=== PATIENT | female | born 1955 | race Caucasian/White ===

== ENCOUNTER 2017-08-23 14:54 | Emergency (ER) | payer MEDICAID, SELFPAY ==
[2017-08-23 15:00] VITALS: BP 135/76; PULSE 82; RESP 20; TEMP 36.9; O2SAT 95; BMI 27.4
--- NOTE | 2017-08-23 16:58 | HMH.EDGENADL ---
ED Disposition Clinical Impression: Sinusitis Qualifiers: Sinusitis location: frontal Chronicity: acute Recurrence: recurrent Qualified Code(s): J01.11 - Acute recurrent frontal sinusitis Disposition: Home, Self-Care Condition on Discharge: Good Instructions: Sinusitis Additional Instructions: Augmentin, see Dr. Fong as needed. Prescriptions: Amoxicillin/Potassium Clav [Augmentin 875-125 Tablet] 1 tab PO Q12H #20 tab Referrals: Reuben Fong MD [Primary Care Provider] - - Critical Care Critical Care Time: No Attestation: On 08/23/17, the high probability of a clinically significant, sudden or life threatening deterioration of the following system(s) required my full and direct attention, intervention and personal management. The time I documented below is in addition to time spent performing reported procedures but includes the following listed in this critical care notation. Medical Decision Making Vital Signs: 08/23/17 15:00 Temperature 98.5 F Temperature Source Oral Pulse Rate [Right Brachial] 82 Respiratory Rate 20 Blood Pressure [Right Arm] 135/76 Blood Pressure Mean [Right Arm] 95 Blood Pressure Source [Right Arm] Automatic Cuff Blood Pressure Position [Right Arm] Sitting 02 Sat by Pulse Oximetry 95 Oxygen Delivery Method Room Air - Lab Data Lab results reviewed: Yes: I reviewed the patient's lab results. Lab Results 08/23/17 15:48: Influenza Type A Ag Negative, Influenza Type B Ag Negative - Grant Inquiry Pt receiving controlled substance: No General Adult HPI - General Chief complaint: Fever Stated complaint: fever chills vomiting Time Seen by Provider: 08/23/17 16:50 Mode of Arrival: Ambulatory Limitations: No Limitations Description of Symptoms (Recalled from ER Triage Doc. by RN): Pt reports feeling clammy, cold, nausea, headache - History of Present Illness HPI narrative: Patient has a three-week history of sinus congestion and pressure. She also has an earache. She now reports low-grade fever. No cough. No vomiting. Had sinusitis in the past, and also has a history of sinus surgery as well as right ear surgery. - Related Data Home Medications Medication Instructions Recorded Confirmed Duloxetine HCl [Cymbalta] 30 mg PO DAILY 08/23/17 08/23/17 Hydrocodone/Acetaminophen [Lortab 1 tab PO TIDP PRN 08/23/17 08/23/17 7.5/325mg tablet] Lisinopril [Lisinopril 20mg Tab] 20 mg PO DAILY 08/23/17 08/23/17 Loratadine [Allergy Relief] 10 mg PO DAILY 08/23/17 08/23/17 Ondansetron HCl [Zofran 8mg Tab] 8 mg PO NEEDED PRN 08/23/17 08/23/17 Pantoprazole Sodium [Protonix 40mg 40 mg PO DAILY 08/23/17 08/23/17 tablet] clonazePAM [Klonopin] 0.5 mg PO DAILY 08/23/17 08/23/17 Previous Rx's Medication Instructions Recorded Amoxicillin/Potassium Clav 1 tab PO Q12H #20 tab 08/23/17 [Augmentin 875-125 Tablet] Allergies Allergy/AdvReac Type Severity Reaction Status Date / Time cephaeline [CEPHAELINE] Allergy Unknown Unverified 08/01/17 15:05 codeine [CODEINE] Allergy Unknown Unverified 08/01/17 15:05 ibuprofen [IBUPROFEN] Allergy Unknown Unverified 08/01/17 15:05 Iodinated Contrast Media - Allergy Unknown Unverified 08/01/17 15:05 Oral and [IODINATED CONTRAST MEDIA - IV DYE] morphine [MORPHINE] Allergy Unknown Unverified 08/01/17 15:05 prednisone [PREDNISONE] Allergy Unknown Unverified 08/01/17 15:05 prochlorperazine Allergy Unknown Unverified 08/01/17 15:05 [PROCHLORPERAZINE] promethazine [From PHENERGAN] Allergy Unknown Unverified 08/01/17 15:05 tramadol [TRAMADOL] Allergy Unknown Unverified 08/01/17 15:05 [facility] History Medical History: Denies:: Cancer, Diabetes Mellitus Type 1, Diabetes Mellitus Type 2, MRSA - *Social History Smoking Status: Never smoker Alcohol Intake: never - Psychiatric History Expresses thoughts of harming self/others: None Suicide Plan Description: No Plan ROS Obtained: Yes All sy
[2017-08-23 17:29] VITALS: BP 138/87; PULSE 63; RESP 18; TEMP 36.6; O2SAT 96
== END 2017-08-23 17:30 | disposition home or self-care (01) ==
PROVIDERS: Emergency Provider Emergency Medicine; Family Provider Emergency Medicine; PCP Emergency Medicine
DX: J01.11 Acute recurrent frontal sinusitis (principal); I10 Essential (primary) hypertension; Z88.6 Allergy status to analgesic agent
CPT/HCPCS: 87275; 87276; 99282

== ENCOUNTER → 2017-09-08 15:37 | Outpatient (REF) | payer MEDICAID, SELFPAY ==
[2017-09-08 19:26] LABS: Amphetamine/Metha Screen,Urine Negative ng/mL (<1000); Barbiturates Screen,Urine Negative ng/mL (<200); Benzodiazepines Screen,Urine Negative ng/mL (200); Cannabinoid Screen,Urine Negative ng/mL (<50); Cocaine Screen,Urine Negative ng/g (<300); Methadone Screen,Urine Negative ng/mL (<300); Opiate Screen,Urine Positive ng/mL (<300); Phencyclidine Screen,Urine Negative ng/mL (<25)
[2017-09-21 11:14] LABS: Alprazolam Negative (Cutoff=100); Benzodiazepines Positive ng/mL (Cutoff=100); Clonazepam Positive (.); Flurazepam Negative (Cutoff=100); Lorazepam Negative (Cutoff=100); Midazolam Negative (Cutoff=100); Temazepam Negative (Cutoff=100); Triazolam Negative (Cutoff=100)
[2017-09-21 12:34] LABS: Clonazepam Confirm 145 ng/mL (Cutoff=100)
== END ==
LOC: LAB 15:37
PROVIDERS: Visit Provider Emergency Medicine
DX: Z79.899 Other long term (current) drug therapy (principal)
CPT/HCPCS: 80305

== ENCOUNTER 2017-09-15 17:30 | Emergency (ER) | payer MEDICAID, SELFPAY ==
[2017-09-15 18:57] VITALS: BP 153/85; PULSE 80; RESP 20; TEMP 36.6; O2SAT 96; BMI 27.4
[2017-09-15 19:08] LABS: UTC Influenza A Antigen Negative (Negative); UTC Influenza B Antigen Negative (Negative); UTC Strep Screen (Rapid) Negative (Negative)
--- NOTE | 2017-09-15 19:51 | HMH.EDUTC ---
[facility] [place] Clinical Impression: Viral upper respiratory illness Disposition: Home, Self-Care Condition on Discharge: Good Instructions: DI for Viral Upper Respiratory Infection -- Adult Additional Instructions: * No sign of bacterial infection. Likely viral. Virus can take 7-14 days to run their course * Monitor Temp. Follow up if fever develops * Encourage fluids, water, gatorade, powerade, pedialyte if infant/toddler/child * warm salt water gargles * warm fluids * sore throat lozenges * sleep elevated * humidifier/vaporizer * Continue your flonase no more then 1 spray on each side twice a day or two sprays on each side daily * Mucinex during the day for your cough and cough suppressant only at night. Be sure to drink lots of water. Insurance may not cover a prescription of mucinex. Might be cheaper to get 400mg tablets and take 2 tablets morning, midday and evening all with lots of water. I will try sending prescription. Prescriptions: guaiFENesin [Mucinex 600mg tablet] 600 mg PO BID #14 tab.er.12h Referrals: Reuben Fong MD [Primary Care Provider] - (Return to [facility] or ER this weekend or primary care throughout the week IMMEDIATELY for new or worsening symptoms OR no noticeable improvement over the next 48-72 hours. 911 for difficulty breathing or swallowing. ) Time of Disposition: 20:14 Medical Decision Making Vital Signs: 09/15/17 18:57 Temperature 97.8 F Temperature Source Temporal Artery Scan Pulse Rate [Right Brachial] 80 Respiratory Rate 20 Blood Pressure [Right Arm] 153/85 Blood Pressure Mean [Right Arm] 107 Blood Pressure Source [Right Arm] Automatic Cuff Blood Pressure Position [Right Arm] Sitting 02 Sat by Pulse Oximetry 96 Oxygen Delivery Method Room Air - Lab Data Lab results reviewed: Yes: I reviewed the patient's lab results. Lab Results 09/15/17 19:03: Influenza Type A Ag Negative, Influenza Type B Ag Negative, Strep Scn Rapid Clinic Negative Orders (Tests/Meds): ORDERS Category Date Time Status Strep Screen Confirmation Stat Micro 09/15/17 19:03 Received - Grant Inquiry Pt receiving controlled substance: No [facility] H[place] - General Stated complaint: Sore Throat, weakness, cough Time Seen by Provider: 09/15/17 19:51 Mode of Arrival: Ambulatory Source of Information: Patient Limitations: No Limitations Description of Symptoms (Recalled from Triage Doc. by RN): C/O sore throat, nausea, and weakness HEENT Symptoms (Recalled from RN notes): Yes (sore throat) Resp Symptoms (Recalled from RN notes): No Skin Symptoms (Recalled from RN notes): No MS Symptoms (Recalled from RN notes): No Functional Status (Recalled from RN notes): n/a - History of Present Illness Provider Complaint: c/o sore throat since yesterday. Worse with cough. Lingering cough since finishing augmentin for sinus infection one week ago. No worse. Cough worse at night. Nonprod. Feels related to drainage that causes nausea at times. OTC cough medication hasn't helped. Sore throat lozenges barely help . No fever. Denies SOA. 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 No known sick contacts. - Related Data Home Medications Medication Instructions Recorded Confirmed Duloxetine HCl [Cymbalta] 30 mg PO DAILY 08/23/17 08/23/17 Lisinopril [Lisinopril 20mg Tab] 20 mg PO DAILY 08/23/17 08/23/17 Loratadine [Allergy Relief] 10 mg PO DAILY 08/23/17 08/23/17 Pantoprazole Sodium [Protonix 40mg 40 mg PO DAILY 08/23/17 08/23/17 tablet] Previous Rx's Medication Instructions Recorded clonazepam 0.5 mg tablet 0.5 mg PO BID 30 Days #60 tab 09/08/17 gabapentin 600 mg tablet 600 mg PO TID 30 Days #90 tab 09/08/17 hydrocodone 7.5 mg-acetaminophen 1 tab PO TIDP PRN 30 Days #90 tab 09/08/17 325 mg tablet guaiFENesin [Mucinex 600mg tablet] 600 mg PO BID #14 tab.er.12h 09/15/17 Allergies Allergy/AdvReac Type Sever
[2017-09-15 20:14] VITALS: BP 144/78; PULSE 92; RESP 20; TEMP 36.9; O2SAT 96
== END 2017-09-15 20:15 | disposition home or self-care (01) ==
PROVIDERS: Emergency Provider Nurse Practitioner Family; Family Provider Emergency Medicine; PCP Emergency Medicine
DX: J06.9 Acute upper respiratory infection, unspecified (principal)
CPT/HCPCS: 87804; 87880; 99201

== ENCOUNTER → 2017-10-06 13:53 | Outpatient (CLI) | payer MEDICAID, SELFPAY ==
[2017-10-06 18:01] LABS: Amphetamine/Metha Screen,Urine Negative ng/mL (<1000); Barbiturates Screen,Urine Negative ng/mL (<200); Benzodiazepines Screen,Urine Negative ng/mL (200); Cannabinoid Screen,Urine Negative ng/mL (<50); Cocaine Screen,Urine Negative ng/g (<300); Methadone Screen,Urine Negative ng/mL (<300); Opiate Screen,Urine Positive ng/mL (<300); Phencyclidine Screen,Urine Negative ng/mL (<25)
== END ==
PROVIDERS: Visit Provider Emergency Medicine
DX: Z79.899 Other long term (current) drug therapy (principal)
CPT/HCPCS: 80305

== ENCOUNTER 2017-10-09 02:13 | Emergency (ER) | payer MEDICAID, SELFPAY ==
[2017-10-09 02:25] VITALS: BP 137/77; PULSE 83; RESP 20; TEMP 36.5; O2SAT 96; BMI 29.2
--- NOTE | 2017-10-09 02:44 | XR_ITS ---
XR chest 2V Ordering Physician: Reuben Fong MD Patient Age: 61 years: Female HISTORY: ITS.REASON: SOA short of breath for 2 days TECHNIQUE: PA and lateral chest COMPARISON :March 2016 FINDINGS The lungs with mild linear atelectasis towards the lung bases bilaterally most evident towards left base.. Mild vascular engorgement borderline CHF Question on this study versus of possible mild interstitial infiltrate or pneumonitis accentuating vascular markings. The heart is upper normal in size but slightly larger than on 2016 exam. No pleural effusions no pneumothorax IMPRESSION: Subtle accentuation of vascular & interstitial markings compared to previous study. Could reflect a mild interstitial pneumonitis versus a very subtle vascular congestion. Clinical correlation required. Mild basilar atelectasis likely also present on less optimal inspiration chest film
[2017-10-09 03:00] LABS: Basophils # 0.1 K/mm3 (0-0.2); Basophils % 0.7 % (0.1-2.0); Eosinophils # 0.5 K/mm3 (0.0-0.4); Eosinophils % 6.4 % (0.1-12.0); Hematocrit 34.2 % (37.0-47.0); Hemoglobin 10.5 g/dL (12.2-16.2); Lymphocytes # 2.7 K/mm3 (0.7-4.5); Lymphocytes % 36.2 K/mm3 (10-50); Mean Corpuscular HGB Conc 30.8 g/dL (31.8-35.4); Mean Corpuscular Hemoglobin 28.6 pg (27.0-31.2); Mean Corpuscular Volume 92.8 fl (81-99); Mean Platelet Volume 9.6 fl (7.4-10.4); Monocytes # 0.6 K/mm3 (0.1-1.0); Monocytes % 7.5 % (1.7-9.3); Neutrophils # 3.7 K/mm3 (1.8-7.8); Neutrophils % 49.2 % (37.0-80.0); Platelet Count 248 K/mm3 (142-424); Red Blood Count 3.69 M/mm3 (4.20-5.40); Red Cell Distribution Width 13.3 % (11.5-17.5); White Blood Count 7.6 K/mm3 (4.8-10.8)
[2017-10-09 03:01] LABS: Microscopic, Urine URINE MICROSCOPIC (MICROSCOPIC)
[2017-10-09 03:02] LABS: Appearance,Urine CLEAR (Clear); Bilirubin,Urine Negative (Negative); Blood, Urine Negative (Negative); Color,Urine YELLOW (Yellow); Glucose,Urine (UA) Negative (Negative); Ketones,Urine Negative (Negative); Leukocyte Esterase,Urine Negative (Negative); Nitrate,Urine Negative (Negative); Protein,Urine Negative (Negative); Specific Gravity, Urine 1.025 (1.005-1.030); Urobilinogen,Urine 0.2 EU/dl (0.2)
[2017-10-09 03:07] LABS: Amorphous Sediment,Urine Trace /lpf
[2017-10-09 03:17] LABS: Lactic Acid 1.8 mmol/L (0.4-2.0)
[2017-10-09 03:25] LABS: D-Dimer 303 (0-400)
[2017-10-09 03:26] LABS: Alanine Aminotransferase 83 U/L (12-78); Albumin Level 3.8 gm/dL (3.4-5.0); Alkaline Phosphatase 88 U/L (46-116); Anion Gap 12.7 mEq/L (5-15); Aspartate Amino Transferase 78 U/L (15-37); Bilirubin,Total 0.2 mg/dL (0.2-1.0); Blood Urea Nitrogen 23 mg/dL (7-18); Calcium 8.7 mg/dL (8.5-10.1); Carbon Dioxide 28 mmol/L (21.0-32.0); Chloride 112 mmol/L (98-107); Creatine Kinase 124 U/L (26-192); Creatine Kinase MB 1.3 mg/ml (0.0-3.6); Creatinine Clearance Estimated 62 mL/min (0-300); Creatinine,Serum 1.16 mg/dL (0.55-1.02); Estimated Glomerular Filt Rate 47 ml/min (>60); GFR (African American) 57 ML/MIN (>60); Globulin 3.7 gm/dl (1.3-3.2); Glucose 116 mg/dL (74-106); Potassium 4.7 mmoL/L (3.5-5.1); Sodium 148 mmol/L (136-145); T4 (Thyroxine) 7.2 ug/dl (4.7-13.3); Thyroid Stimulating Hormone 0.97 uIU/ml (0.358-3.740); Total Protein,Serum 7.5 gm/dL (6.4-8.2); Troponin I < 0.02 ng/ml (0.00-0.06)
[2017-10-09 03:39] VITALS: BP 130/84; PULSE 73; RESP 18; O2SAT 95
--- NOTE | 2017-10-09 04:00 | HMH.EDEXTP ---
ED Disposition Clinical Impression: Bilateral lower extremity edema Disposition: Home, Self-Care Condition on Discharge: Good Instructions: DI for Peripheral Edema -- Bilateral Additional Instructions: elevate lower ext and less salt in diet Referrals: Reuben Fong MD [Primary Care Provider] - - Critical Care Critical Care Time: No Attestation: On 10/09/17, the high probability of a clinically significant, sudden or life threatening deterioration of the following system(s) required my full and direct attention, intervention and personal management. The time I documented below is in addition to time spent performing reported procedures but includes the following listed in this critical care notation. Medical Decision Making - Medical Records Medical records reviewed: Yes: I reviewed the patient's medical records. Vital Signs: 10/09/17 02:25 10/09/17 03:39 Temperature 97.7 F Temperature Source Oral Pulse Rate [Right Radial] 83 73 Respiratory Rate 20 18 Blood Pressure [Right Arm] 137/77 130/84 Blood Pressure Mean [Right Arm] 97 99 Blood Pressure Source [Right Arm] Automatic Cuff Automatic Cuff Blood Pressure Position [Right Arm] Sitting Sitting 02 Sat by Pulse Oximetry 96 95 Oxygen Delivery Method Room Air Room Air - Lab Data Lab results reviewed: Yes: I reviewed the patient's lab results. Lab Results 10/09/17 02:44: Urine Color Yellow, Urine Appearance Clear, Urine pH 5.0, Ur Specific [place] 1.025, Urine Protein Negative, Urine Glucose (UA) Negative, Urine Ketones Negative, Urine Blood Negative, Urine Nitrate Negative, Urine Bilirubin Negative, Urine Urobilinogen 0.2, Ur Leukocyte Esterase Negative, Urine WBC 3-5, Ur Squamous Epith Cells 5-10, Amorphous Sediment Trace 10/09/17 02:55: WBC 7.6, RBC 3.69 L, Hgb 10.5 L, Hct 34.2 L, MCV 92.8, MCH 28.6, MCHC 30.8 L, RDW 13.3, Plt Count 248, MPV 9.6, Neut % (Auto) 49.2, Lymph % (Auto) 36.2, [place] % (Auto) 7.5, Eos % (Auto) 6.4, Baso % (Auto) 0.7, Neut # (Auto) 3.7, Lymph # (Auto) 2.7, [place] # (Auto) 0.6, Eos # (Auto) 0.5 H, Baso # (Auto) 0.1 10/09/17 02:55: D-Dimer 303 10/09/17 02:55: Sodium 148 H, Potassium 4.7, Chloride 112 H, Carbon Dioxide 28, Anion Gap 12.7, BUN 23 H, Creatinine 1.16 H, Estimated Creat Clear 62, Estimated GFR 47 L, Est GFR ( Amer) 57 L, Glucose 116 H, Calcium 8.7, Total Bilirubin 0.2, AST 78 H, ALT 83 H, Alkaline Phosphatase 88, Total Creatine Kinase 124, CK-MB (CK-2) 1.3, CK-MB (CK-2) Rel Index 1.0, Troponin I < 0.02, Total Protein 7.5, Albumin 3.8, Globulin 3.7 H, Albumin/Globulin Ratio 1.0 L, TSH 0.97, Thyroxine (T4) 7.2 10/09/17 02:55: B-Natriuretic Peptide 31 10/09/17 02:55: Lactic Acid 1.8 Result diagrams: 10/09/17 02:55 10/09/17 02:55 Orders (Tests/Meds): ORDERS Category Date Time Status XR chest 2V Stat Exams 10/09/17 02:44 Taken - Radiology Data #1 Image(s): Chest Image Reviewed: Yes I reviewed the patient's radiology image Preliminary Findings: Abnormal (vas conj) - Grant Inquiry Pt receiving controlled substance: No Extremity Problem HPI - General Chief complaint: Shortness of Breath/Dyspnea Stated complaint: Both legs swelling;loss of balance Time Seen by Provider: 10/09/17 04:00 Mode of Arrival: Ambulatory Source of Information: Patient, Significant Other, Medical Record Limitations: No Limitations Description of Symptoms (Recalled from ER Triage Doc. by RN): Pt. reports both legs started sweling about an hour ago, and prior to coming to the ED was having difficulty breathing. - History of Present Illness HPI Narrative: pt with feeling of sob with swollen lower ext - pt reports sx noted tonight- no chest pain MD Complaint: extremity swelling Onset (ago): hour(s) Consistency: constant Location: lower extremity Exacerbating factors: walking Associated symptoms: shortness of breath - Related Data Home Medications Medication Instructions Recorded Confirmed Duloxeti
--- NOTE | 2017-10-09 04:03 | ED_ITS ---
ED Disposition Clinical Impression: Bilateral lower extremity edema Disposition: Home, Self-Care Condition on Discharge: Good Instructions: DI for Peripheral Edema -- Bilateral Additional Instructions: elevate lower ext and less salt in diet Referrals: Reuben Fong MD [Primary Care Provider] - - Critical Care Critical Care Time: No Attestation: On 10/09/17, the high probability of a clinically significant, sudden or life threatening deterioration of the following system(s) required my full and direct attention, intervention and personal management. The time I documented below is in addition to time spent performing reported procedures but includes the following listed in this critical care notation. Medical Decision Making - Medical Records Medical records reviewed: Yes: I reviewed the patient's medical records. Vital Signs: 10/09/17 02:25 10/09/17 03:39 Temperature 97.7 F Temperature Source Oral Pulse Rate [Right Radial] 83 73 Respiratory Rate 20 18 Blood Pressure [Right Arm] 137/77 130/84 Blood Pressure Mean [Right Arm] 97 99 Blood Pressure Source [Right Arm] Automatic Cuff Automatic Cuff Blood Pressure Position [Right Arm] Sitting Sitting 02 Sat by Pulse Oximetry 96 95 Oxygen Delivery Method Room Air Room Air - Lab Data Lab results reviewed: Yes: I reviewed the patient's lab results. Lab Results 10/09/17 02:44: Urine Color Yellow, Urine Appearance Clear, Urine pH 5.0, Ur Specific [place] 1.025, Urine Protein Negative, Urine Glucose (UA) Negative, Urine Ketones Negative, Urine Blood Negative, Urine Nitrate Negative, Urine Bilirubin Negative, Urine Urobilinogen 0.2, Ur Leukocyte Esterase Negative, Urine WBC 3-5, Ur Squamous Epith Cells 5-10, Amorphous Sediment Trace 10/09/17 02:55: WBC 7.6, RBC 3.69 L, Hgb 10.5 L, Hct 34.2 L, MCV 92.8, MCH 28.6 , MCHC 30.8 L, RDW 13.3, Plt Count 248, MPV 9.6, Neut % (Auto) 49.2, Lymph % ( Auto) 36.2, [place] % (Auto) 7.5, Eos % (Auto) 6.4, Baso % (Auto) 0.7, Neut # (Auto ) 3.7, Lymph # (Auto) 2.7, [place] # (Auto) 0.6, Eos # (Auto) 0.5 H, Baso # (Auto) 0.1 10/09/17 02:55: D-Dimer 303 10/09/17 02:55: Sodium 148 H, Potassium 4.7, Chloride 112 H, Carbon Dioxide 28, Anion Gap 12.7, BUN 23 H, Creatinine 1.16 H, Estimated Creat Clear 62, Estimated GFR 47 L, Est GFR ( Amer) 57 L, Glucose 116 H, Calcium 8.7, Total Bilirubin 0.2, AST 78 H, ALT 83 H, Alkaline Phosphatase 88, Total Creatine Kinase 124, CK-MB (CK-2) 1.3, CK-MB (CK-2) Rel Index 1.0, Troponin I < 0.02, Total Protein 7.5, Albumin 3.8, Globulin 3.7 H, Albumin/Globulin Ratio 1.0 L, TSH 0.97, Thyroxine (T4) 7.2 10/09/17 02:55: B-Natriuretic Peptide 31 10/09/17 02:55: Lactic Acid 1.8 Result diagrams: 10/09/17 02:55 10/09/17 02:55 Orders (Tests/Meds): ORDERS Category Date Time Status XR chest 2V Stat Exams 10/09/17 02:44 Taken - Radiology Data #1 Image(s): Chest Image Reviewed: Yes I reviewed the patient's radiology image Preliminary Findings: Abnormal (vas conj) - Grant Inquiry Pt receiving controlled substance: No Extremity Problem HPI - General Chief complaint: Shortness of Breath/Dyspnea Stated complaint: Both legs swelling;loss of balance Time Seen by Provider: 10/09/17 04:00 Mode of Arrival: Ambulatory Source of Information: Patient, Significant Other, Medical Record Limitations: No Limitations Description of Symptoms (Recalled from ER Triage Doc. by RN): Pt
[2017-10-09 04:27] VITALS: BP 130/70; PULSE 70; RESP 18; TEMP 36.6; O2SAT 95
== END 2017-10-09 04:29 | disposition home or self-care (01) ==
PROVIDERS: Emergency Provider Emergency Medicine; Family Provider Emergency Medicine; PCP Emergency Medicine
DX: R60.9 Edema, unspecified (principal); F41.9 Anxiety disorder, unspecified; F32.9 Major depressive disorder, single episode, unspecified; K21.9 Gastro-esophageal reflux disease without esophagitis; I10 Essential (primary) hypertension
CPT/HCPCS: 71046; 80053; 81001; 82550; 82553; 83605; 83880; 84436; 84443; 84484; 85025; 85378; 96374; 99283; S0119

== ENCOUNTER 2017-10-14 00:24 | Emergency (ER) | payer MEDICAID, SELFPAY ==
[2017-10-14 00:25] VITALS: RESP 18; TEMP 36.6; O2SAT 94; BMI 27.4
--- NOTE | 2017-10-14 00:29 | XR_ITS ---
XR chest 2V HISTORY: ITS.REASON: chest pain ORDERING PHYSICIAN: Reuben Fong MD PATIENT AGE: 61 years COMPARISON: 10/09/2017 FINDINGS: Unremarkable cardiovascular structures. There are atelectatic changes in the right lung base. Slight increased markings are present in the left lung base may be due to atelectasis or developing patchy infiltrate. There is coarsening of the bronchovascular markings. No effusions. No acute bony anomalies. IMPRESSION: Atelectasis in the right middle lobe with increasing density in the left lung base which may be due to atelectasis or infiltrate
[2017-10-14 00:43] LABS: Basophils % 0.5 % (0.1-2.0); Eosinophils # 0.4 K/mm3 (0.0-0.4); Hematocrit 34.4 % (37.0-47.0); Hemoglobin 10.9 g/dL (12.2-16.2); Lymphocytes # 2.4 K/mm3 (0.7-4.5); Lymphocytes % 35.5 K/mm3 (10-50); Mean Corpuscular HGB Conc 31.6 g/dL (31.8-35.4); Mean Corpuscular Hemoglobin 29.7 pg (27.0-31.2); Mean Corpuscular Volume 93.9 fl (81-99); Mean Platelet Volume 10.1 fl (7.4-10.4); Monocytes # 0.5 K/mm3 (0.1-1.0); Neutrophils # 3.3 K/mm3 (1.8-7.8); Neutrophils % 49.9 % (37.0-80.0); Platelet Count 234 K/mm3 (142-424); Red Blood Count 3.67 M/mm3 (4.20-5.40); Red Cell Distribution Width 13.3 % (11.5-17.5); White Blood Count 6.6 K/mm3 (4.8-10.8)
[2017-10-14 01:24] LABS: Alanine Aminotransferase 99 U/L (12-78); Albumin Level 3.5 gm/dL (3.4-5.0); Alkaline Phosphatase 133 U/L (46-116); Anion Gap 11.5 mEq/L (5-15); Aspartate Amino Transferase 65 U/L (15-37); Bilirubin,Total 0.3 mg/dL (0.2-1.0); Blood Urea Nitrogen 17 mg/dL (7-18); CKMB Relative Index 0.5 U/L (0-4.0); Calcium 8.7 mg/dL (8.5-10.1); Carbon Dioxide 28 mmol/L (21.0-32.0); Chloride 108 mmol/L (98-107); Creatine Kinase 172 U/L (26-192); Creatine Kinase MB 0.8 mg/ml (0.0-3.6); Creatinine Clearance Estimated 68 mL/min (0-300); Creatinine,Serum 0.72 mg/dL (0.55-1.02); Estimated Glomerular Filt Rate 82 ml/min (>60); GFR (African American) 100 ML/MIN (>60); Globulin 3.5 gm/dl (1.3-3.2); Glucose 102 mg/dL (74-106); Potassium 4.5 mmoL/L (3.5-5.1); Sodium 143 mmol/L (136-145); Troponin I < 0.02 ng/ml (0.00-0.06)
--- NOTE | 2017-10-14 02:10 | HMH.EDCP ---
ED Disposition Clinical Impression: Bilateral lower extremity edema Chest pain Qualifiers: Chest pain type: precordial pain Qualified Code(s): R07.2 - Precordial pain Anemia Qualifiers: Anemia type: unspecified type Qualified Code(s): D64.9 - Anemia, unspecified Disposition: Home, Self-Care Condition on Discharge: Good Instructions: DI for Atypical Chest Pain Additional Instructions: will have pt see card monday Referrals: Reuben Fong MD [Primary Care Provider] - - Critical Care Critical Care Time: No Attestation: On 10/14/17, the high probability of a clinically significant, sudden or life threatening deterioration of the following system(s) required my full and direct attention, intervention and personal management. The time I documented below is in addition to time spent performing reported procedures but includes the following listed in this critical care notation. Medical Decision Making - Medical Records Medical records reviewed: Yes: I reviewed the patient's medical records. Vital Signs: 10/14/17 00:25 Temperature 97.9 F Temperature Source Oral Respiratory Rate 18 02 Sat by Pulse Oximetry 94 L Oxygen Delivery Method Room Air - Lab Data Lab results reviewed: Yes: I reviewed the patient's lab results. Lab Results 10/14/17 00:30: WBC 6.6, RBC 3.67 L, Hgb 10.9 L, Hct 34.4 L, MCV 93.9, MCH 29.7, MCHC 31.6 L, RDW 13.3, Plt Count 234, MPV 10.1, Neut % (Auto) 49.9, Lymph % (Auto) 35.5, [place] % (Auto) 8.0, Eos % (Auto) 6.0, Baso % (Auto) 0.5, Neut # (Auto) 3.3, Lymph # (Auto) 2.4, [place] # (Auto) 0.5, Eos # (Auto) 0.4, Baso # (Auto) 0.0 10/14/17 00:30: Sodium 143, Potassium 4.5, Chloride 108 H, Carbon Dioxide 28, Anion Gap 11.5, BUN 17, Creatinine 0.72, Estimated Creat Clear 68, Estimated GFR 82, Est GFR ( Amer) 100, Glucose 102, Calcium 8.7, Total Bilirubin 0.3, AST 65 H, ALT 99 H, Alkaline Phosphatase 133 H, Total Creatine Kinase 172, CK-MB (CK-2) 0.8 D, CK-MB (CK-2) Rel Index 0.5, Troponin I < 0.02, Total Protein 7.0, Albumin 3.5, Globulin 3.5 H, Albumin/Globulin Ratio 1.0 L Result diagrams: 10/14/17 00:30 10/14/17 00:30 Orders (Tests/Meds): ORDERS Category Date Time Status XR chest 2V Stat Exams 10/14/17 00:29 Taken 12-lead EKG Request [ECG Request by /Sd] Stat Y 10/14/17 00:29 Ordered - Radiology Data #1 Image(s): Chest Image Reviewed: Yes I reviewed the patient's radiology image Preliminary Findings: Abnormal (cm) - ECG Data Tracing #1 I reviewed this ECG and interpreted as documented below: Normal Sinus Rhythm: Yes Ischemic changes: non-specific ST-T wave changes - Grant Inquiry Pt receiving controlled substance: No Chest Pain HPI - General Chief Complaint: Chest Pain Stated Complaint: chest pain Time Seen by Provider: 10/14/17 00:40 Mode of Arrival: Ambulatory Source of Information: Patient, Medical Record Limitations: No Limitations Description of Symptoms (Recalled from ER Triage Doc. by RN): chest pain and swollen feet for days - History of Present Illness HPI narrative: pt with episodes of sharp ant chest pain worse with cough but no fever or trauma and no rash MD complaint: chest pain Onset (ago): hour(s) Duration: intermittent Pain location: left chest Severity: moderate Quality: sharp Exacerbating factors: inspiration Risk Factors for CAD: Hypertension, Family Hx of CAD - MARY Score Non-Stemi Age of patient: Less than 65 yrs Number of risk factors for CAD: Presence of less than 3 Prior coronary artery stenosis(seen in coronary angiography): Less than 50% ST-Segment deviation on ECG (more than 1 min): Absent Prior aspirin intake: No ASA in the last 7 days Severe anginal chest pain: Two or more episodes in last 24 hours Elevated cardiac markers(CK-MB or troponin): Absent Non-Stemi Risk Score: 1 - Related Data Home Medications Medication Instructions Recorded Confirmed Duloxetine HCl [Cymbalta] 30
--- NOTE | 2017-10-14 02:29 | ED_ITS ---
ED Disposition Clinical Impression: Bilateral lower extremity edema Chest pain Qualifiers: Chest pain type: precordial pain Qualified Code(s): R07.2 - Precordial pain Anemia Qualifiers: Anemia type: unspecified type Qualified Code(s): D64.9 - Anemia, unspecified Disposition: Home, Self-Care Condition on Discharge: Good Instructions: DI for Atypical Chest Pain Additional Instructions: will have pt see card monday Referrals: Reuben Fong MD [Primary Care Provider] - - Critical Care Critical Care Time: No Attestation: On 10/14/17, the high probability of a clinically significant, sudden or life threatening deterioration of the following system(s) required my full and direct attention, intervention and personal management. The time I documented below is in addition to time spent performing reported procedures but includes the following listed in this critical care notation. Medical Decision Making - Medical Records Medical records reviewed: Yes: I reviewed the patient's medical records. Vital Signs: 10/14/17 00:25 Temperature 97.9 F Temperature Source Oral Respiratory Rate 18 02 Sat by Pulse Oximetry 94 L Oxygen Delivery Method Room Air - Lab Data Lab results reviewed: Yes: I reviewed the patient's lab results. Lab Results 10/14/17 00:30: WBC 6.6, RBC 3.67 L, Hgb 10.9 L, Hct 34.4 L, MCV 93.9, MCH 29.7 , MCHC 31.6 L, RDW 13.3, Plt Count 234, MPV 10.1, Neut % (Auto) 49.9, Lymph % ( Auto) 35.5, [place] % (Auto) 8.0, Eos % (Auto) 6.0, Baso % (Auto) 0.5, Neut # (Auto ) 3.3, Lymph # (Auto) 2.4, [place] # (Auto) 0.5, Eos # (Auto) 0.4, Baso # (Auto) 0.0 10/14/17 00:30: Sodium 143, Potassium 4.5, Chloride 108 H, Carbon Dioxide 28, Anion Gap 11.5, BUN 17, Creatinine 0.72, Estimated Creat Clear 68, Estimated GFR 82, Est GFR ( Amer) 100, Glucose 102, Calcium 8.7, Total Bilirubin 0.3, AST 65 H, ALT 99 H, Alkaline Phosphatase 133 H, Total Creatine Kinase 172, CK-MB (CK-2) 0.8 D, CK-MB (CK-2) Rel Index 0.5, Troponin I < 0.02, Total Protein 7.0, Albumin 3.5, Globulin 3.5 H, Albumin/Globulin Ratio 1.0 L Result diagrams: 10/14/17 00:30 10/14/17 00:30 Orders (Tests/Meds): ORDERS Category Date Time Status XR chest 2V Stat Exams 10/14/17 00:29 Taken 12-lead EKG Request [ECG Request by /Sd] Stat Y 10/14/17 00:29 Ordered - Radiology Data #1 Image(s): Chest Image Reviewed: Yes I reviewed the patient's radiology image Preliminary Findings: Abnormal (cm) - ECG Data Tracing #1 I reviewed this ECG and interpreted as documented below: Normal Sinus Rhythm: Yes Ischemic changes: non-specific ST-T wave changes - Grant Inquiry Pt receiving controlled substance: No Chest Pain HPI - General Chief Complaint: Chest Pain Stated Complaint: chest pain Time Seen by Provider: 10/14/17 00:40 Mode of Arrival: Ambulatory Source of Information: Patient, Medical Record Limitations: No Limitations Description of Symptoms (Recalled from ER Triage Doc. by RN): chest pain and swollen feet for days - History of Present Illness HPI narrative: pt with episodes of sharp ant chest pain worse with cough but no fever or trauma and no rash MD complaint: chest pain Onset (ago): hour(s) Duration: intermittent Pain location: left chest Severity: moderate Quality: sharp Exacerbating factors: inspiration Risk Factors for CAD: Hypertension, Fami
[2017-10-14 02:56] VITALS: BP 146/70; PULSE 74; RESP 18; TEMP 36.4; O2SAT 94
== END 2017-10-14 02:56 | disposition home or self-care (01) ==
PROVIDERS: Emergency Provider Emergency Medicine; Family Provider Emergency Medicine; PCP Emergency Medicine
DX: R22.43 Localized swelling, mass and lump, lower limb, bilateral (principal); R07.2 Precordial pain; D64.9 Anemia, unspecified; I10 Essential (primary) hypertension; F41.8 Other specified anxiety disorders; K21.9 Gastro-esophageal reflux disease without esophagitis; F17.210 Nicotine dependence, cigarettes, uncomplicated; Z88.6 Allergy status to analgesic agent; Z88.8 Allergy status to other drugs, medicaments and biological substances
CPT/HCPCS: 71046; 80053; 82550; 82553; 84484; 85025; 93005; 96374; 99282; J0595

== ENCOUNTER 2017-10-18 04:34 | Emergency (ER) | payer MEDICAID, SELFPAY ==
[2017-10-18 04:41] VITALS: BP 128/76; PULSE 79; RESP 20; TEMP 36.8; O2SAT 93; BMI 29.5
--- NOTE | 2017-10-18 04:49 | XR_ITS ---
XR chest 2V HISTORY: Shortness of breath ITS.REASON: sob ORDERING PHYSICIAN: Reuben Fong MD PATIENT AGE: 61 years COMPARISON: 10/14/2017 FINDINGS: The cardiomediastinal silhouette and pulmonary vascularity are within normal limits. There are atelectatic changes once again noted within the lingula and right middle lobe not significant change. Upper lobes are clear. No effusions. IMPRESSION: No change right middle lobe and lingular atelectasis
[2017-10-18 05:06] LABS: Basophils % 0.5 % (0.1-2.0); Eosinophils # 0.4 K/mm3 (0.0-0.4); Eosinophils % 6.7 % (0.1-12.0); Lymphocytes # 1.8 K/mm3 (0.7-4.5); Lymphocytes % 32.8 K/mm3 (10-50); Mean Corpuscular HGB Conc 32.3 g/dL (31.8-35.4); Mean Corpuscular Hemoglobin 30.2 pg (27.0-31.2); Mean Corpuscular Volume 93.4 fl (81-99); Mean Platelet Volume 9.5 fl (7.4-10.4); Monocytes # 0.4 K/mm3 (0.1-1.0); Monocytes % 7.7 % (1.7-9.3); Neutrophils # 2.8 K/mm3 (1.8-7.8); Neutrophils % 52.2 % (37.0-80.0); Platelet Count 267 K/mm3 (142-424); Red Blood Count 3.64 M/mm3 (4.20-5.40); Red Cell Distribution Width 13.5 % (11.5-17.5); White Blood Count 5.4 K/mm3 (4.8-10.8)
[2017-10-18 05:16] LABS: Uric Acid 5.6 mg/dL (2.6-7.2)
[2017-10-18 05:30] LABS: Alanine Aminotransferase 70 U/L (12-78); Albumin Level 3.5 gm/dL (3.4-5.0); Albumin/Globulin Ratio 0.9 (1.1-1.8); Alkaline Phosphatase 134 U/L (46-116); Anion Gap 4.4 mEq/L (5-15); Aspartate Amino Transferase 57 U/L (15-37); Bilirubin,Total 0.2 mg/dL (0.2-1.0); Blood Urea Nitrogen 16 mg/dL (7-18); CKMB Relative Index 0.7 U/L (0-4.0); Calcium 8.9 mg/dL (8.5-10.1); Carbon Dioxide 29 mmol/L (21.0-32.0); Chloride 104 mmol/L (98-107); Creatine Kinase 111 U/L (26-192); Creatine Kinase MB 0.8 mg/ml (0.0-3.6); Creatinine Clearance Estimated 73 mL/min (0-300); Creatinine,Serum 0.93 mg/dL (0.55-1.02); Estimated Glomerular Filt Rate 61 ml/min (>60); GFR (African American) 74 ML/MIN (>60); Globulin 3.9 gm/dl (1.3-3.2); Glucose 100 mg/dL (74-106); Potassium 3.4 mmoL/L (3.5-5.1); Sodium 134 mmol/L (136-145); Total Protein,Serum 7.4 gm/dL (6.4-8.2); Troponin I < 0.02 ng/ml (0.00-0.06)
[2017-10-18 06:05] VITALS: BP 148/82; PULSE 79; RESP 18; O2SAT 94
--- NOTE | 2017-10-18 06:28 | [facility].EDCP ---
ED Disposition Clinical Impression: Bilateral lower extremity edema Chest pain Qualifiers: Chest pain type: other chest pain Qualified Code(s): R07.89 - Other chest pain; R07.8 - Other chest pain Disposition: Home, Self-Care Condition on Discharge: Good Additional Instructions: see card this am Referrals: Reuben Fong MD [Primary Care Provider] - - Critical Care Critical Care Time: No Attestation: On 10/18/17, the high probability of a clinically significant, sudden or life threatening deterioration of the following system(s) required my full and direct attention, intervention and personal management. The time I documented below is in addition to time spent performing reported procedures but includes the following listed in this critical care notation. Medical Decision Making - Medical Records Medical records reviewed: Yes: I reviewed the patient's medical records. Vital Signs: 10/18/17 04:41 10/18/17 06:05 Temperature 98.3 F Temperature Source Oral Pulse Rate [Right Radial] 79 79 Respiratory Rate 20 18 Blood Pressure [Right Arm] 128/76 148/82 Blood Pressure Mean [Right Arm] 93 104 Blood Pressure Source [Right Arm] Automatic Cuff Blood Pressure Position [Right Arm] Sitting 02 Sat by Pulse Oximetry 93 L 94 L Oxygen Delivery Method Room Air - Lab Data Lab results reviewed: Yes: I reviewed the patient's lab results. Lab Results 10/18/17 04:55: WBC 5.4, RBC 3.64 L, Hgb 11.0 L, Hct 34.0 L, MCV 93.4, MCH 30.2, MCHC 32.3, RDW 13.5, Plt Count 267, MPV 9.5, Neut % (Auto) 52.2, Lymph % (Auto) 32.8, [place] % (Auto) 7.7, Eos % (Auto) 6.7, Baso % (Auto) 0.5, Neut # (Auto) 2.8, Lymph # (Auto) 1.8, [place] # (Auto) 0.4, Eos # (Auto) 0.4, Baso # (Auto) 0.0 10/18/17 04:55: Sodium 134 L, Potassium 3.4 L, Chloride 104, Carbon Dioxide 29, Anion Gap 4.4 L, BUN 16, Creatinine 0.93, Estimated Creat Clear 73, Estimated GFR 61, Est GFR ( Amer) 74, Glucose 100, Calcium 8.9, Total Bilirubin 0.2, AST 57 H, ALT 70, Alkaline Phosphatase 134 H, Total Creatine Kinase 111, CK-MB (CK-2) 0.8, CK-MB (CK-2) Rel Index 0.7, Troponin I < 0.02, Total Protein 7.4, Albumin 3.5, Globulin 3.9 H, Albumin/Globulin Ratio 0.9 L 10/18/17 04:55: B-Natriuretic Peptide 25 10/18/17 04:55: Uric Acid 5.6 Result diagrams: 10/18/17 04:55 10/18/17 04:55 Orders (Tests/Meds): ORDERS Category Date Time Status Chest XR 2 view (NOT portable) [XR chest 2V] Stat Exams 10/18/17 04:49 Taken - Radiology Data #1 Image(s): Chest Image Reviewed: Yes I reviewed the patient's radiology image Preliminary Findings: Normal/NAD - ECG Data Tracing #1 I reviewed this ECG and interpreted as documented below: Normal Sinus Rhythm: Yes Ischemic changes: non-specific ST-T wave changes - Grant Inquiry Pt receiving controlled substance: No Chest Pain HPI - General Chief Complaint: Extremity Injury, Lower Stated Complaint: Swelling in legs and feet Time Seen by Provider: 10/18/17 06:28 Mode of Arrival: Wheelchair Source of Information: Patient, Significant Other, Relative, Medical Record Limitations: Physical Limitations Description of Symptoms (Recalled from ER Triage Doc. by RN): bilateral lower extremity swelling. pt states she was seen here in ed a few days ago and was given lasix to help the same complaint. pt states she has been running a low grade fever also. - History of Present Illness HPI narrative: pt with swelling in lower ext with occ chest pain with no fever or rash - she has no cough - MD complaint: chest pain Onset (ago): hour(s) Duration: intermittent Activity at onset: during rest Pain location: left chest Severity: moderate Risk Factors for CAD: Family Hx of CAD - Related Data Home Medications Medication Instructions Recorded Confirmed Duloxetine HCl [Cymbalta] 30 mg PO DAILY 08/23/17 10/18/17 Lisinopril [Lisinopril 20mg Tab] 20 mg PO DAILY 08/23/17 10/18/17 Loratadine [Allergy Relief] 1
--- NOTE | 2017-10-18 06:33 | ED_ITS ---
ED Disposition Clinical Impression: Bilateral lower extremity edema Chest pain Qualifiers: Chest pain type: other chest pain Qualified Code(s): R07.89 - Other chest pain ; R07.8 - Other chest pain Disposition: Home, Self-Care Condition on Discharge: Good Additional Instructions: see card this am Referrals: Reuben Fong MD [Primary Care Provider] - - Critical Care Critical Care Time: No Attestation: On 10/18/17, the high probability of a clinically significant, sudden or life threatening deterioration of the following system(s) required my full and direct attention, intervention and personal management. The time I documented below is in addition to time spent performing reported procedures but includes the following listed in this critical care notation. Medical Decision Making - Medical Records Medical records reviewed: Yes: I reviewed the patient's medical records. Vital Signs: 10/18/17 04:41 10/18/17 06:05 Temperature 98.3 F Temperature Source Oral Pulse Rate [Right Radial] 79 79 Respiratory Rate 20 18 Blood Pressure [Right Arm] 128/76 148/82 Blood Pressure Mean [Right Arm] 93 104 Blood Pressure Source [Right Arm] Automatic Cuff Blood Pressure Position [Right Arm] Sitting 02 Sat by Pulse Oximetry 93 L 94 L Oxygen Delivery Method Room Air - Lab Data Lab results reviewed: Yes: I reviewed the patient's lab results. Lab Results 10/18/17 04:55: WBC 5.4, RBC 3.64 L, Hgb 11.0 L, Hct 34.0 L, MCV 93.4, MCH 30.2 , MCHC 32.3, RDW 13.5, Plt Count 267, MPV 9.5, Neut % (Auto) 52.2, Lymph % (Auto ) 32.8, [place] % (Auto) 7.7, Eos % (Auto) 6.7, Baso % (Auto) 0.5, Neut # (Auto) 2.8, Lymph # (Auto) 1.8, [place] # (Auto) 0.4, Eos # (Auto) 0.4, Baso # (Auto) 0.0 10/18/17 04:55: Sodium 134 L, Potassium 3.4 L, Chloride 104, Carbon Dioxide 29, Anion Gap 4.4 L, BUN 16, Creatinine 0.93, Estimated Creat Clear 73, Estimated GFR 61, Est GFR ( Amer) 74, Glucose 100, Calcium 8.9, Total Bilirubin 0.2 , AST 57 H, ALT 70, Alkaline Phosphatase 134 H, Total Creatine Kinase 111, CK- MB (CK-2) 0.8, CK-MB (CK-2) Rel Index 0.7, Troponin I < 0.02, Total Protein 7.4 , Albumin 3.5, Globulin 3.9 H, Albumin/Globulin Ratio 0.9 L 10/18/17 04:55: B-Natriuretic Peptide 25 10/18/17 04:55: Uric Acid 5.6 Result diagrams: 10/18/17 04:55 10/18/17 04:55 Orders (Tests/Meds): ORDERS Category Date Time Status Chest XR 2 view (NOT portable) [XR chest 2V] Stat Exams 10/18/17 04:49 Taken - Radiology Data #1 Image(s): Chest Image Reviewed: Yes I reviewed the patient's radiology image Preliminary Findings: Normal/NAD - ECG Data Tracing #1 I reviewed this ECG and interpreted as documented below: Normal Sinus Rhythm: Yes Ischemic changes: non-specific ST-T wave changes - Grant Inquiry Pt receiving controlled substance: No Chest Pain HPI - General Chief Complaint: Extremity Injury, Lower Stated Complaint: Swelling in legs and feet Time Seen by Provider: 10/18/17 06:28 Mode of Arrival: Wheelchair Source of Information: Patient, Significant Other, Relative, Medical Record Limitations: Physical Limitations Description of Symptoms (Recalled from ER Triage Doc. by RN): bilateral lower extremity swelling. pt states she was seen here in ed a few days ago and was given lasix to help the same complaint. pt states she has been running a low grade fever also. - History of
[2017-10-18 06:46] VITALS: BP 135/74; PULSE 78; RESP 20; TEMP 36.6; O2SAT 99
[2017-10-18 07:16] LABS: D-Dimer 493 (0-400)
== END 2017-10-18 06:47 | disposition home or self-care (01) ==
PROVIDERS: Emergency Provider Emergency Medicine; Family Provider Emergency Medicine; PCP Emergency Medicine
DX: R60.0 Localized edema (principal); R07.89 Other chest pain; I10 Essential (primary) hypertension; F41.8 Other specified anxiety disorders; K21.9 Gastro-esophageal reflux disease without esophagitis; Z88.6 Allergy status to analgesic agent; Z79.899 Other long term (current) drug therapy
CPT/HCPCS: 71046; 80053; 82550; 82553; 83880; 84484; 84550; 85025; 85378; 93005; 96374; 99283; J0595

== ENCOUNTER → 2017-10-20 08:12 | Outpatient (CLI) | payer MEDICAID, SELFPAY ==
--- NOTE | 2017-10-20 08:16 | NVE_ITS ---
Venous Exam Indications: 729.5 Pain in limb. IMPRESSIONS 1. There is no evidence of significant Reflux. 2. No evidence of deep or superficial vein thrombosis involving the right lower extremity and left lower extremity Complete lower extremity venous duplex evaluation. Doppler flow study including spectral analysis, color and connor scale imaging. Location: Vascular laboratory. Patient status: Outpatient. Tables: Venous flow and imaging: + +-------+ + Location Overall Flow properties + +-------+ + Right common femoral Patent Normal phasicity; spontaneous; normal augmentation; compressible + +-------+ + Right saphenofemoral junction Patent Compressible + +-------+ + Right profunda femoral Patent Compressible + +-------+ + Right femoral Patent Normal phasicity; spontaneous; normal augmentation; compressible; no reflux + +-------+ + Right greater saphenous Patent Normal phasicity; spontaneous; normal augmentation; compressible + +-------+ + Right popliteal Patent Normal phasicity; spontaneous; normal augmentation; compressible + +-------+ + Right posterior tibial Patent Compressible + +-------+ + Right peroneal Patent Compressible + +-------+ + Right gastrocnemius Patent Compressible + +-------+ + Right soleal Patent Compressible + +-------+ + Left common femoral Patent Normal phasicity; spontaneous; normal augmentation; compressible + +-------+ + Left saphenofemoral junction Patent Compressible + +-------+ + Left profunda femoral Patent Compressible + +-------+ + Left femoral Patent Normal phasicity; spontaneous; normal augmentation; compressible + +-------+ + Left greater saphenous Patent Normal phasicity; spontaneous; normal augmentation; compressible + +-------+ + Left popliteal Patent Normal phasicity; spontaneous; normal augmentation; compressible + +------
--- NOTE | 2017-10-20 08:16 | CA_ITS ---
PROCEDURE: 2-D M-mode and color Doppler study INDICATIONS FOR THE TEST: Chest pain X COPD Heart Murmur Tobacco Smoking Palpitations Fatigue Syncope EdemaX HypertensionXDiabetes Mellitus Rheumatic Fever SOBXDOEX Obesity HyperlipidemiaX Family History HD Additional History PATIENT INFORMATION HEIGHT:64 WEIGHT:179 GENDER: Female B/P:140/94 2-D/M-MODE INTERPRETATION: 2-D MEASUREMENTS OBSERVED VALUES IN CMS Right Ventricular Dimension (RVDd) 2.1 Interventricular Septum (Thickness)(IVsd) .9 Left Ventricular Internal Dimensions(LVIDd) 5.8 Left Ventricular Posterior Wall (Thickness)(LVPWd) 1.0 Aortic Root 3.1 Aortic Cusp Separation 2.0 Left Atrial Dimensions (LAD) 3.0 2D 1. Left atrium is qualitatively mildly enlarged, left ventricle is normal size, there is mild qualitative concentric left ventricular hypertrophy, visually estimated ejection fraction 55% with no obvious regional wall motion abnormality. 2. The right atrium and right ventricle are normal size and contractility. 3. The aortic valve is minimally thickened and fibrosed. 4. The mitral and tricuspid valve leaflets are minimally thickened. 5. The pulmonic valve is poorly visualized. 6. No significant pericardial effusion noted. DOPPLER INTERROGATION: Doppler interrogation of the aortic, mitral and tricuspid valvular presence of mild mitral and tricuspid regurgitation, calculated right ventricular systolic pressure is 37 mmHg consistent with mild pulmonary hypertension, grade 1 diastolic dysfunction seen with tissue Doppler evidence of raised left atrial pressure. CONCLUSION: 1. Mildly enlarged left atrium, normal left ventricular size, mild qualitative concentric left ventricular hypertrophy, visually estimated ejection fraction 55% with no obvious regional wall motion abnormality, grade 1 diastolic dysfunction seen with tissue Doppler evidence of raised left atrial pressure. 2. Mild mitral and tricuspid regurgitation, calculated right ventricular systolic pressure is 37 mmHg consistent with mild pulmonary hypertension. 3. No significant pericardial effusion noted.
== END ==
PROVIDERS: Family Provider Emergency Medicine; PCP Emergency Medicine; Visit Provider Internal Medicine Cardiovascular Disease
DX: R60.0 Localized edema (principal); R06.00 Dyspnea, unspecified; R07.9 Chest pain, unspecified
CPT/HCPCS: 93306; 93970

== ENCOUNTER 2017-10-20 21:56 | Emergency (ER) | payer MEDICAID, SELFPAY ==
[2017-10-20 22:01] VITALS: BP 169/93; PULSE 59; RESP 20; TEMP 36.8; O2SAT 99; BMI 30.7
--- NOTE | 2017-10-20 22:16 | HMH.EDGENADL ---
ED Disposition Clinical Impression: Chest pain Disposition: Home, Self-Care Condition on Discharge: Good Instructions: DI for Chest Pain Additional Instructions: see pcp and card for follow up Referrals: Reuben Fong MD [Primary Care Provider] - - Critical Care Critical Care Time: No Attestation: On 10/20/17, the high probability of a clinically significant, sudden or life threatening deterioration of the following system(s) required my full and direct attention, intervention and personal management. The time I documented below is in addition to time spent performing reported procedures but includes the following listed in this critical care notation. Medical Decision Making - Medical Records Medical records reviewed: Yes: I reviewed the patient's medical records. Vital Signs: 10/20/17 22:01 Temperature 98.2 F Temperature Source Oral Pulse Rate [Right Brachial] 59 L Respiratory Rate 20 Blood Pressure [Right Arm] 169/93 Blood Pressure Mean [Right Arm] 118 Blood Pressure Source [Right Arm] Automatic Cuff Blood Pressure Position [Right Arm] Sitting 02 Sat by Pulse Oximetry 99 Oxygen Delivery Method Room Air - Lab Data Lab results reviewed: Yes: I reviewed the patient's lab results. Lab Results 10/20/17 22:30: WBC 9.0 D, RBC 3.69 L, Hgb 10.8 L, Hct 34.5 L, MCV 93.4, MCH 29.2, MCHC 31.3 L, RDW 13.4, Plt Count 270, MPV 9.4, Neut % (Auto) 58.4, Lymph % (Auto) 29.9, [place] % (Auto) 6.8, Eos % (Auto) 4.4, Baso % (Auto) 0.5, Neut # (Auto) 5.2, Lymph # (Auto) 2.7, [place] # (Auto) 0.6, Eos # (Auto) 0.4, Baso # (Auto) 0.0 10/20/17 22:30: Sodium 142, Potassium 3.5, Chloride 107, Carbon Dioxide 29, Anion Gap 9.5, BUN 14, Creatinine 1.00, Estimated Creat Clear 76, Estimated GFR 56 L, Est GFR ( Amer) 68, Glucose 92, Troponin I < 0.02 Result diagrams: 10/20/17 22:30 10/20/17 22:30 - Grant Inquiry Pt receiving controlled substance: No General Adult HPI - General Chief complaint: PAIN Stated complaint: BOTH LEGS AND FEET SWOLLEN Time Seen by Provider: 10/20/17 22:16 Mode of Arrival: Ambulatory Source of Information: Patient, Medical Record Limitations: No Limitations Description of Symptoms (Recalled from ER Triage Doc. by RN): Echo peripheral scan today, here for legs swelling, dizzy - History of Present Illness HPI narrative: pt with episodes of feet pain and chest pain - she has been seen by card and mikelal in progress Onset (ago): hour(s) Location: chest Radiation: non-radiation Severity: moderate Quality: stabbing Consistency: intermittent - Related Data Home Medications Medication Instructions Recorded Confirmed Duloxetine HCl [Cymbalta] 30 mg PO DAILY 08/23/17 10/18/17 Lisinopril [Lisinopril 20mg Tab] 20 mg PO DAILY 08/23/17 10/18/17 Loratadine [Allergy Relief] 10 mg PO DAILY 08/23/17 10/18/17 Pantoprazole Sodium [Protonix 40mg 40 mg PO DAILY 08/23/17 10/18/17 tablet] Gabapentin [Neurontin 600mg 600 mg PO TID 10/09/17 10/18/17 tablet] Ondansetron HCl [Zofran 8mg Tab] 8 mg PO .every 8 hours 10/09/17 10/18/17 clonazePAM [Klonopin] 0.5 mg PO BID 10/09/17 10/18/17 Previous Rx's Medication Instructions Recorded benzonatate 100 mg capsule 100 mg PO TID PRN 10 Days #30 cap 10/06/17 hydrocodone 7.5 mg-acetaminophen 1 tab PO TIDP PRN 30 Days #90 tab 10/06/17 325 mg tablet spironolactone 25 mg tablet 25 mg PO QAM #30 tab 10/19/17 Allergies Allergy/AdvReac Type Severity Reaction Status Date / Time cephaeline [CEPHAELINE] Allergy Unknown Verified 10/14/17 00:37 codeine [CODEINE] Allergy Unknown Verified 10/14/17 00:37 ibuprofen [IBUPROFEN] Allergy Unknown Verified 10/14/17 00:37 Iodinated Contrast Media - Allergy Unknown Verified 10/14/17 00:37 Oral and [IODINATED CONTRAST MEDIA - IV DYE] morphine [MORPHINE] Allergy Unknown Verified 10/14/17 00:37 prednisone [PREDNISONE] Allergy Unknown Verified 10/14/17 00:37 prochlorperazine Al
[2017-10-20 22:36] LABS: Basophils % 0.5 % (0.1-2.0); Eosinophils # 0.4 K/mm3 (0.0-0.4); Eosinophils % 4.4 % (0.1-12.0); Hematocrit 34.5 % (37.0-47.0); Hemoglobin 10.8 g/dL (12.2-16.2); Lymphocytes # 2.7 K/mm3 (0.7-4.5); Lymphocytes % 29.9 K/mm3 (10-50); Mean Corpuscular HGB Conc 31.3 g/dL (31.8-35.4); Mean Corpuscular Hemoglobin 29.2 pg (27.0-31.2); Mean Corpuscular Volume 93.4 fl (81-99); Mean Platelet Volume 9.4 fl (7.4-10.4); Monocytes # 0.6 K/mm3 (0.1-1.0); Monocytes % 6.8 % (1.7-9.3); Neutrophils # 5.2 K/mm3 (1.8-7.8); Neutrophils % 58.4 % (37.0-80.0); Platelet Count 270 K/mm3 (142-424); Red Blood Count 3.69 M/mm3 (4.20-5.40); Red Cell Distribution Width 13.4 % (11.5-17.5)
[2017-10-20 23:04] LABS: Anion Gap 9.5 mEq/L (5-15); Blood Urea Nitrogen 14 mg/dL (7-18); Carbon Dioxide 29 mmol/L (21.0-32.0); Chloride 107 mmol/L (98-107); Creatinine Clearance Estimated 76 mL/min (0-300); Estimated Glomerular Filt Rate 56 ml/min (>60); GFR (African American) 68 ML/MIN (>60); Glucose 92 mg/dL (74-106); Potassium 3.5 mmoL/L (3.5-5.1); Sodium 142 mmol/L (136-145); Troponin I < 0.02 ng/ml (0.00-0.06)
[2017-10-21 00:10] VITALS: BP 165/95; PULSE 82; RESP 12; TEMP 36.8; O2SAT 98
== END 2017-10-21 00:12 | disposition home or self-care (01) ==
PROVIDERS: Emergency Provider Emergency Medicine; Family Provider Emergency Medicine; PCP Emergency Medicine
DX: R60.0 Localized edema (principal); R79.89 Other specified abnormal findings of blood chemistry; R42 Dizziness and giddiness; I10 Essential (primary) hypertension; K21.9 Gastro-esophageal reflux disease without esophagitis; F41.8 Other specified anxiety disorders; Z88.6 Allergy status to analgesic agent
CPT/HCPCS: 80048; 84484; 85025; 99282

== ENCOUNTER → 2017-11-03 13:37 | Outpatient (REF) | payer MEDICAID, SELFPAY ==
[2017-11-03 19:02] LABS: Amphetamine/Metha Screen,Urine Negative ng/mL (<1000); Barbiturates Screen,Urine Negative ng/mL (<200); Benzodiazepines Screen,Urine Positive ng/mL (200); Cannabinoid Screen,Urine Negative ng/mL (<50); Cocaine Screen,Urine Negative ng/g (<300); Methadone Screen,Urine Negative ng/mL (<300); Opiate Screen,Urine Positive ng/mL (<300); Phencyclidine Screen,Urine Negative ng/mL (<25)
== END ==
LOC: LAB 13:37
PROVIDERS: Visit Provider Emergency Medicine
DX: Z79.899 Other long term (current) drug therapy (principal)
CPT/HCPCS: 80305

== ENCOUNTER → 2017-11-23 06:37 | Outpatient (CLI) | payer MEDICAID, SELFPAY ==
--- NOTE | 2017-11-23 06:39 | NM_ITS ---
History and Indications: Hypertension, family history, chest pain, shortness of breath, palpitations and fatigue Procedure: Patient received a 0.4 mg of Lexiscan, resting heart rate was 61 beats resting blood pressure 135/78, with exercise maximum heart rate achieved was 98 bpm which is less than 85% of the maximum predicted heart rate and a blood pressure was 125/88. Test was started due to shortness of breath and nausea, patient acquired 75 mg of intravenous Aminophyllin to reverse symptoms. Electrocardiogram: Resting electrocardiogram showed sinus rhythm, with Lexiscan there is less than 1.[address] segment depression noted from the baseline EKG. The EKG portion of the Lexiscan Myoview is nondiagnostic. Cardiac stress and resting SPECT images: Cardiac stress and rest SPECT images were obtained using technetium 99 Myoview 30.8 mCi at stress and then 10.5 mCi at rest. Gated SPECT for analysis of segmental wall motion and calculation of the ejection fraction also done. Cardiac stress and rest images show mild decreased tracer activity in the anteroapical wall which improves on the resting images suggestive of reversible ischemia. Computer derived ejection fraction is over 65% with no obvious regional wall motion abnormality. Right ventricle is normal size and contractility. Conclusion: 1. The EKG portion of the Lexiscan Myoview is nondiagnostic. 2. Scintigraphic evidence of reversible ischemia involving the anteroapical wall, computer derived ejection fraction is over 65% with no obvious regional wall motion abnormality, right ventricle is normal size and contractility. 3. Abnormal Lexiscan Myoview study.
--- NOTE | 2017-11-23 11:25 | HMH.ITSHM ---
benzonatate clonazepam duloxetine furosemite gabapetin
== END ==
PROVIDERS: Family Provider Emergency Medicine; PCP Emergency Medicine; Visit Provider Internal Medicine
DX: R07.9 Chest pain, unspecified (principal); I10 Essential (primary) hypertension; R06.00 Dyspnea, unspecified; R79.89 Other specified abnormal findings of blood chemistry; R60.0 Localized edema
CPT/HCPCS: 78452; 93017; A9502; J2785

== ENCOUNTER → 2017-12-01 14:57 | Outpatient (REF) | payer MEDICAID, SELFPAY ==
[2017-12-01 19:42] LABS: Amphetamine/Metha Screen,Urine Negative ng/mL (<1000); Barbiturates Screen,Urine Negative ng/mL (<200); Benzodiazepines Screen,Urine Negative ng/mL (200); Cannabinoid Screen,Urine Negative ng/mL (<50); Cocaine Screen,Urine Negative ng/g (<300); Methadone Screen,Urine Negative ng/mL (<300); Opiate Screen,Urine Negative ng/mL (<300); Phencyclidine Screen,Urine Negative ng/mL (<25)
== END ==
LOC: LAB 14:57
PROVIDERS: Visit Provider Emergency Medicine
DX: Z79.899 Other long term (current) drug therapy (principal)
CPT/HCPCS: 80305

== ENCOUNTER → 2017-12-06 11:35 | Outpatient (REF) | payer MEDICAID, SELFPAY ==
[2017-12-06 14:21] LABS: Alanine Aminotransferase 245 U/L (12-78); Albumin Level 3.2 gm/dL (3.4-5.0); Albumin/Globulin Ratio 0.9 (1.1-1.8); Alkaline Phosphatase 197 U/L (46-116); Anion Gap 13.8 mEq/L (5-15); Aspartate Amino Transferase 238 U/L (15-37); Bilirubin,Total 0.4 mg/dL (0.2-1.0); Blood Urea Nitrogen 21 mg/dL (7-18); Calcium 8.5 mg/dL (8.5-10.1); Carbon Dioxide 29 mmol/L (21.0-32.0); Chloride 107 mmol/L (98-107); Creatinine,Serum 1.21 mg/dL (0.55-1.02); Estimated Glomerular Filt Rate 45 ml/min (>60); GFR (African American) 55 ML/MIN (>60); Globulin 3.4 gm/dl (1.3-3.2); Glucose 111 mg/dL (74-106); Potassium 3.8 mmoL/L (3.5-5.1); Sodium 146 mmol/L (136-145); Total Protein,Serum 6.6 gm/dL (6.4-8.2)
[2017-12-06 14:22] LABS: Basophils % 0.4 % (0.1-2.0); Eosinophils # 0.4 K/mm3 (0.0-0.4); Eosinophils % 9.2 % (0.1-12.0); Hematocrit 30.8 % (37.0-47.0); Hemoglobin 9.8 g/dL (12.2-16.2); Lymphocytes # 1.6 K/mm3 (0.7-4.5); Lymphocytes % 34.5 K/mm3 (10-50); Mean Corpuscular HGB Conc 31.9 g/dL (31.8-35.4); Mean Corpuscular Hemoglobin 29.9 pg (27.0-31.2); Mean Corpuscular Volume 93.8 fl (81-99); Mean Platelet Volume 9.9 fl (7.4-10.4); Monocytes # 0.4 K/mm3 (0.1-1.0); Monocytes % 7.6 % (1.7-9.3); Neutrophils # 2.3 K/mm3 (1.8-7.8); Neutrophils % 48.2 % (37.0-80.0); Platelet Count 230 K/mm3 (142-424); Red Blood Count 3.29 M/mm3 (4.20-5.40); Red Cell Distribution Width 13.6 % (11.5-17.5); White Blood Count 4.7 K/mm3 (4.8-10.8)
[2017-12-07 11:19] LABS: Hep A Ab, IgM Negative (Negative); Hepatitis B Core Antibody IgM Negative (Negative); Hepatitis B Surface Antigen Negative (Negative)
[2017-12-08 12:53] LABS: Hepatitis C Antibody <0.1 s/co ratio (0.0-0.9)
== END ==
LOC: LAB 11:35
PROVIDERS: Visit Provider Emergency Medicine
DX: J06.9 Acute upper respiratory infection, unspecified (principal)
CPT/HCPCS: 80053; 80074; 85025

== ENCOUNTER → 2017-12-29 08:01 | Outpatient (REF) | payer MEDICAID, SELFPAY ==
[2017-12-29 14:25] LABS: Amphetamine/Metha Screen,Urine Negative ng/mL (<1000); Barbiturates Screen,Urine Negative ng/mL (<200); Benzodiazepines Screen,Urine Positive ng/mL (200); Cannabinoid Screen,Urine Negative ng/mL (<50); Cocaine Screen,Urine Negative ng/g (<300); Methadone Screen,Urine Negative ng/mL (<300); Opiate Screen,Urine Negative ng/mL (<300); Phencyclidine Screen,Urine Negative ng/mL (<25)
== END ==
LOC: LAB 08:01
PROVIDERS: Visit Provider Emergency Medicine
DX: Z79.891 Long term (current) use of opiate analgesic (principal)
CPT/HCPCS: 80305

== ENCOUNTER 2017-12-31 10:54 | Inpatient (IN) ==
--- NOTE | 2017-12-31 11:52 | Emergency Department Note ---
ED Disposition Clinical Impression: Hx of Crohn's disease, Abdominal adhesions, Intractable nausea and vomiting, Dehydration Disposition: Still a Patient Condition on Discharge: Fair Referrals: Reuben Fong MD [Primary Care Provider] - - Critical Care Critical Care Time: No Attestation: On 12/31/17, the high probability of a clinically significant, sudden or life threatening deterioration of the following system(s) required my full and direct attention, intervention and personal management. The time I documented below is in addition to time spent performing reported procedures but includes the following listed in this critical care notation. Medical Decision Making - Grant Inquiry Pt receiving controlled substance: No Grant was queried for this patient: No Vital Signs: 12/31/17 11:03 12/31/17 11:55 12/31/17 12:05 Temperature 98.2 F Temperature Source Oral Pulse Rate [Left Radial] 57 L 62 58 L Respiratory Rate 18 Blood Pressure [Right Arm] 105/73 102/67 106/52 Blood Pressure Mean [Right Arm] 83 78 70 Blood Pressure Source [Right Arm] Automatic Cuff Automatic Cuff Automatic Cuff Blood Pressure Position [Right Arm] Sitting Sitting Sitting 02 Sat by Pulse Oximetry 96 96 98 Oxygen Delivery Method Room Air Room Air Room Air - Lab Data Lab Results 12/31/17 12:00: WBC 7.7, RBC 3.72 L, Hgb 11.1 L, Hct 34.6 L, MCV 93.0, MCH 30.0 , MCHC 32.2, RDW 13.7, Plt Count 252, MPV 9.1, Neut % (Auto) 63.1, Lymph % (Auto ) 22.8, [place] % (Auto) 6.2, Eos % (Auto) 7.4, Baso % (Auto) 0.4, Neut # (Auto) 4.9, Lymph # (Auto) 1.8, [place] # (Auto) 0.5, Eos # (Auto) 0.6 H, Baso # (Auto) 0.0 12/31/17 12:00: Sodium 141, Potassium 4.4, Chloride 106, Carbon Dioxide 29, Anion Gap 6.1, BUN 34 H, Creatinine 1.34 H, Estimated Creat Clear 52, Estimated GFR 40 L, Est GFR ( Amer) 48 L, Glucose 93, Calcium 9.1, Magnesium 2.3 H , Total Bilirubin 0.6, AST 168 H, ALT 89 H, Alkaline Phosphatase 158 H, Troponin I < 0.02, Total Protein 7.7, Albumin 3.8, Globulin 3.9 H, Albumin/ Globulin Ratio 1.0 L, Triglycerides 85, Lipase 197 Result diagrams: 12/31/17 12:00 12/31/17 12:00 Orders (Tests/Meds): ED MEDICATIONS Generic Name Dose Route Start Last Admin Trade Name Freq PRN Reason Stop Dose Admin Sodium Chloride 1,000 mls @ 999 mls/hr 12/31/17 13:45 Sod Chlor 0.9% 1000ml Bag IV 12/31/17 14:45 .Q1H1M CEM Discontinued Medications Generic Name Dose Route Start Last Admin Trade Name Freq PRN Reason Stop Dose Admin Famotidine 20 mg 12/31/17 11:53 12/31/17 12:07 Pepcid 20mg/2ml Vial IV 12/31/17 11:54 20 mg ONCE ONE Administration Methylprednisolone Sodium Succinate 125 mg 12/31/17 11:53 12/31/17 12:07 Solu-Medrol 125mg/2ml Vial IV 12/31/17 11:54 125 mg ONCE ONE Administration Ondansetron HCl 4 mg 12/31/17 11:53 12/31/17 12:07 Zofran 4mg/2ml Vial IV 12/31/17 11:54 4 mg ONCE ONE Administration Medical Decision Narrative: Patient the patient continued to complain of upper abdominal pain, she required additional doses of anti-emetics. I discussed the CT scan report with Dr. Theodore agreed to admit for IV fluids and bowel rest. General Adult HPI - General Chief complaint: PAIN Stated complaint: PLURISY ATTACK Time Seen by Provider: 12/31/17 11:05 Mode of Arrival: Ambulatory Limitations: No Limitations Description of Symptoms (Recalled from ER Triage Doc. by RN): Pt was seen here on Monday for SOA, diagnosed with pluerisy. Seen Dr. Fong in the office for upper GI pain and is ordering for a scope. She is stating that she is still having pain in her upper abdomen and its hurts to take a deep breath. - History of Present Illness HPI narrative: 63 years old white female status post multiple abdominal surgeries and Crohn's disease currently on no medications. The patient reports that she has been experiencing upper abdominal pain for 2 weeks with intermittent vomiting. His morning she was unable to keep any food. He did come to the ED for evaluation. At that her systolic blood pressure was 97 mmHg. Denies having chest pain shortness of breath palpitations hemoptysis hematemesis coffee-ground emesis but she has some loose stool. Onset (ago): week(s) (x 2 weeks.) Location: abdomen Radiation: non-radiation Severity: moderate Quality: other Consistency: intermittent Relieving factors: none Exacerbating factors: none Associated symptoms: denies other symptoms - Related Data Home Medications Medication Instructions Recorded Confirmed aspirin 81 mg tablet,delayed 81 mg PO DAILY tab 12/01/17 12/31/17 release metoprolol succinate ER 25 mg 25 mg PO DAILY tab 12/01/17 12/31/17 tablet,extended release 24 hr Furosemide [Furosemide 40MG tAB] 40 mg PO .every other day 12/27/17 12/31/17 Furosemide [Lasix 20mg tab] 20 mg PO QODHS 12/27/17 12/31/17 Spironolactone [Spironolactone 25 mg PO QAM 12/27/17 12/31/17 25mg Tab] Previous Rx's Medication Instructions Recorded losartan 25 mg tablet 25 mg PO DAILY #30 tab 11/03/17 Benzonatate [Tessalon Perle 100mg 100 mg PO TID PRN #30 cap 12/03/17 Cap] Ondansetron [Zofran 4mg ODT] 4 mg PO QIDP PRN #20 tab.rapdis 12/05/17 pantoprazole 40 mg tablet,delayed 40 mg PO DAILY 90 Days #90 tab 12/11/17 release duloxetine 30 mg capsule,delayed 30 mg PO DAILY 90 Days #90 cap 12/22/17 release loratadine 10 mg tablet 10 mg PO DAILY 90 Days #90 tab 12/22/17 clonazepam 0.5 mg tablet 0.5 mg PO BID 30 Days #60 tab 12/29/17 gabapentin 600 mg tablet 600 mg PO TID 30 Days #90 tab 12/29/17 hydrocodone 7.5 mg-acetaminophen 1 tab PO TIDP PRN 30 Days #90 tab 12/29/17 325 mg tablet Allergies Allergy/AdvReac Type Severity Reaction Status Date / Time codeine [CODEINE] Allergy Unknown Verified 12/29/17 07:48 ibuprofen [IBUPROFEN] Allergy Unknown Verified 12/29/17 07:48 Iodinated Contrast Media - Allergy Unknown Verified 12/29/17 07:48 Oral and [IODINATED CONTRAST MEDIA - IV DYE] morphine [MORPHINE] Allergy Unknown Verified 12/29/17 07:48 prednisone [PREDNISONE] Allergy Unknown Verified 12/29/17 07:48 prochlorperazine Allergy Unknown Verified 12/29/17 07:48 [PROCHLORPERAZINE] promethazine [From PHENERGAN] Allergy Unknown Verified 12/29/17 07:48 tramadol [TRAMADOL] Allergy Unknown Verified 12/29/17 07:48 cephalexin [From Keflex] Allergy Verified 12/29/17 07:48 [facility] History I have reviewed the patient's past medical history: Yes Medical History: Reports:: Anxiety, Depression, Gastroesophageal Reflux Disease( GERD), Hypertension Denies:: Cancer, Diabetes Mellitus Type 1, Diabetes Mellitus Type 2, Internal Pacemaker, MRSA, Seizures Other Medical History: Reports: Other Comment: Seen in the emergency department here on 12/05/17, diagnosed with hepatitis, bronchitis, and dehydration. Normal cardiac cath on 11/27/17. Other Surgeries: Yes: Appendectomy, Hysterectomy-Total, Sinus Surgery, Other. No: Pacemaker Amputation: No Fractures: No - Social History Smoking Status: Never smoker Alcohol Intake: never Alcohol Intake Frequency:: other Substance Use Type: denies use Occupational Status: unemployed, disabled Housing: apartment Household Members: significant other - Psychiatric History Expresses thoughts of harming self/others: None Suicide Plan Description: No Plan Pschychiatric History:: Reports:: Anxiety, Depression Family Hx:: Coronary Artery Disease, Heart Attack ROS Obtained: Yes All systems reviewed & no additional complaints Physical Exam - General General appearance: alert, in no apparent distress - Head Head exam: atraumatic, normocephalic, normal inspection - Eye Eye exam: Present: normal appearance, PERRL, EOMI - ENT ENT exam: Present: normal exam, normal oropharynx, mucous membranes moist, TM's normal bilaterally, normal external ear exam - Neck Neck exam: Present: normal inspection, full ROM, trachea midline. Absent: meningismus, lymphadenopathy - Chest Chest inspection: Present: normal inspection, symmetric chest wall rise. Absent : tenderness - Respiratory Respiratory exam: Present: normal lung sounds bilaterally. Absent: respiratory distress - Cardiovascular Cardiovascular exam: Present: regular rate, normal rhythm. Absent: JVD - Abdominal Exam Abdominal exam: Present: soft, tenderness, normal bowel sounds. Absent: distention, guarding, Estes's sign, tenderness at McBurney's Point - External exam: Present: normal external exam - Extremities Exam Extremities exam: Present: normal inspection, full ROM, normal capillary refill. Absent: calf tenderness - Back Exam Back exam: Present: normal inspection. Absent: tenderness - Neurological Exam Neurological exam: Present: alert, oriented X3, CN II-XII intact, motor sensory deficit, reflexes normal - Psychiatric Psychiatric exam: Present: normal affect, normal mood - Skin Skin exam: Present: warm, dry, intact, normal color - Lymphatic Lymphatic Findings: no adenopathy
[2017-12-31 12:07] LABS: Basophils % 0.4 % (0.1-2.0); Eosinophils # 0.6 K/mm3 (0.0-0.4); Eosinophils % 7.4 % (0.1-12.0); Hematocrit 34.6 % (37.0-47.0); Hemoglobin 11.1 g/dL (12.2-16.2); Lymphocytes # 1.8 K/mm3 (0.7-4.5); Lymphocytes % 22.8 K/mm3 (10-50); Mean Corpuscular HGB Conc 32.2 g/dL (31.8-35.4); Mean Platelet Volume 9.1 fl (7.4-10.4); Monocytes # 0.5 K/mm3 (0.1-1.0); Monocytes % 6.2 % (1.7-9.3); Neutrophils # 4.9 K/mm3 (1.8-7.8); Neutrophils % 63.1 % (37.0-80.0); Platelet Count 252 K/mm3 (142-424); Red Blood Count 3.72 M/mm3 (4.20-5.40); Red Cell Distribution Width 13.7 % (11.5-17.5); White Blood Count 7.7 K/mm3 (4.8-10.8)
[2017-12-31 12:38] LABS: Anion Gap 6.1 mEq/L (5-15); Carbon Dioxide 29 mmol/L (21.0-32.0); Chloride 106 mmol/L (98-107); Potassium 4.4 mmoL/L (3.5-5.1); Sodium 141 mmol/L (136-145)
[2017-12-31 12:43] LABS: Blood Urea Nitrogen 34 mg/dL (7-18); Calcium 9.1 mg/dL (8.5-10.1); Glucose 93 mg/dL (74-106)
[2017-12-31 12:44] LABS: Alanine Aminotransferase 89 U/L (12-78); Albumin Level 3.8 gm/dL (3.4-5.0); Aspartate Amino Transferase 168 U/L (15-37); Lipase 197 u/L (73-393)
[2017-12-31 12:45] LABS: Alkaline Phosphatase 158 U/L (46-116); Bilirubin,Total 0.6 mg/dL (0.2-1.0); Globulin 3.9 gm/dl (1.3-3.2); Total Protein,Serum 7.7 gm/dL (6.4-8.2); Triglycerides 85 mg/dL (30-200)
[2018-01-01 03:18] LABS: Basophils % 0.1 % (0.1-2.0); Eosinophils # 0.2 K/mm3 (0.0-0.4); Eosinophils % 2.6 % (0.1-12.0); Lymphocytes % 15.5 K/mm3 (10-50); Mean Corpuscular HGB Conc 33.8 g/dL (31.8-35.4); Mean Corpuscular Hemoglobin 31.1 pg (27.0-31.2); Mean Corpuscular Volume 91.9 fl (81-99); Mean Platelet Volume 10.7 fl (7.4-10.4); Monocytes # 0.2 K/mm3 (0.1-1.0); Monocytes % 2.9 % (1.7-9.3); Neutrophils % 78.9 % (37.0-80.0); Platelet Count 115 K/mm3 (142-424); Red Blood Count 3.08 M/mm3 (4.20-5.40); Red Cell Distribution Width 13.8 % (11.5-17.5); White Blood Count 6.4 K/mm3 (4.8-10.8)
[2018-01-01 03:23] LABS: Hematocrit 28.3 % (37.0-47.0); Hemoglobin 9.6 g/dL (12.2-16.2)
[2018-01-01 03:41] LABS: Anion Gap 10.4 mEq/L (5-15); Blood Urea Nitrogen 22 mg/dL (7-18); Carbon Dioxide 25 mmol/L (21.0-32.0); Chloride 109 mmol/L (98-107); Potassium 4.4 mmoL/L (3.5-5.1); Sodium 140 mmol/L (136-145)
[2018-01-01 03:42] LABS: Glucose 187 mg/dL (74-106)
--- NOTE | 2018-01-01 07:43 | Pharmacy Consult Notes ---
[facility] Pharmacy VTE Monitoring - Patient Demographics Admission date: 12/31/17 Report Date: 01/01/18 Time: 07:43 Allergies/Adverse Reactions: Patient Allergies codeine [CODEINE] Allergy (Unknown, Verified 12/29/17 07:48) ibuprofen [IBUPROFEN] Allergy (Unknown, Verified 12/29/17 07:48) Iodinated Contrast Media - Oral and [IODINATED CONTRAST MEDIA - IV DYE] Allergy (Unknown, Verified 12/29/17 07:48) morphine [MORPHINE] Allergy (Unknown, Verified 12/29/17 07:48) prednisone [PREDNISONE] Allergy (Unknown, Verified 12/29/17 07:48) prochlorperazine [PROCHLORPERAZINE] Allergy (Unknown, Verified 12/29/17 07:48) promethazine [From PHENERGAN] Allergy (Unknown, Verified 12/29/17 07:48) tramadol [TRAMADOL] Allergy (Unknown, Verified 12/29/17 07:48) cephalexin [From Keflex] Allergy (Verified 12/29/17 07:48) Height: 1.63 m Weight: 79.038 kg Patient Problems: Current Active Problems Dehydration (Acute) Hx of Crohn's disease (Acute) Abdominal adhesions (Acute) Intractable nausea and vomiting (Acute) - VTE Risk Labs: VTE Related Lab Results Hgb 9.6 g/dL (12.2-16.2) L D 01/01/18 03:05 Hct 28.3 % (37.0-47.0) L 01/01/18 03:05 Plt Count 115 K/mm3 (142-424) L D 01/01/18 03:05 BUN 22 mg/dL (7-18) H D 01/01/18 03:05 Creatinine 0.91 mg/dL (0.55-1.02) D 01/01/18 03:05 Estimated Creat Clear 73 mL/min (0-300) 01/01/18 03:05 VTE Score: 2 VTE Risk Level: Very Low Risk - Prophylaxis VTE Prophylaxis Ordered?: Yes Types of VTE Prophylaxis: TEDS Knee High Location of Applied Device: Bilateral Lower Extremeties - VTE Diagnosis Confirmed Treatment or plan recommended: Continue Current Treatment
--- NOTE | 2018-01-01 08:58 | History & Physical Report ---
*Admission Date: 12/31/17 *Chief complaint: abd pain *History of present illness: this wf with upper abd pain progressive over the last 2 weeks was sen in the ed - years old white female status post multiple abdominal surgeries and Crohn's disease currently on no medications. The patient reports that she has been experiencing upper abdominal pain for 2 weeks with intermittent vomiting. His morning she was unable to keep any food. He did come to the ED for evaluation. At that her systolic blood pressure was 97 mmHg. Denies having chest pain shortness of breath palpitations hemoptysis hematemesis coffee-ground emesis but she has some loose stool. [facility] History I have reviewed the patient's past medical history: Yes Medical History: Reports:: Anxiety, Depression, Gastroesophageal Reflux Disease( GERD), Hypertension Denies:: Cancer, Diabetes Mellitus Type 1, Diabetes Mellitus Type 2, Internal Pacemaker, MRSA, Seizures Other Medical History: Reports: Anemia, Arthritis, Hypothyroidism, Other Other Surgeries: Yes: Appendectomy, Hysterectomy-Total, Sinus Surgery, Other. No: Pacemaker Amputation: No Fractures: No - *Social History Educational Level: Completed High School Smoking Status: Never smoker Alcohol Intake: never Alcohol Intake Frequency:: other Substance Use Type: denies use Occupational Status: unemployed, disabled Housing: apartment Household Members: significant other - Psychiatric History Expresses thoughts of harming self/others: None Suicide Plan Description: No Plan Pschychiatric History:: Reports:: Anxiety, Depression *Family Hx:: Coronary Artery Disease, Heart Attack Review of Systems - Review of Systems Review of systems:: pertinent systems reviewed and negative unless documented below - Constitutional Denies fever(s), Denies weight loss - Eyes Denies change in vision - ENT Denies sore throat - *Cardiovascular Denies chest pain at rest - *Respiratory Denies cough - *Gastrointestinal Reports abdominal pain, Reports nausea, Reports vomiting, Denies black, tarry stools - *Genitourinary Denies blood in urine - *Musculoskeletal Denies joint pain, Denies joint swelling, Denies neck pain - Integumentary/Breasts Denies rash - *Neurologic Denies seizure-like activity - Psychiatric Reports anxiety Meds Home Medications Medication Instructions Recorded Confirmed Type aspirin 81 mg tablet,delayed 81 mg PO DAILY tab 12/01/17 12/31/17 History release Furosemide [Furosemide 40MG tAB] 40 mg PO Q48H 12/27/17 01/01/18 History Furosemide [Lasix 20mg tab] 20 mg PO QODHS 12/27/17 12/31/17 History Spironolactone [Spironolactone 25 mg PO DAILY 12/27/17 01/01/18 History 25mg Tab] Benzonatate [Benzonatate 100mg 100 mg PO TIDP PRN 01/01/18 01/01/18 History cap] Duloxetine HCl [Cymbalta] 30 mg PO DAILY 01/01/18 01/01/18 History Gabapentin [Neurontin 600mg 600 mg PO TID 01/01/18 12/31/17 History tablet] Hydrocodone/Acetaminophen [Lortab 1 tab PO Q8HP PRN 01/01/18 01/01/18 History 7.5/325mg tablet] Loratadine [Allergy Relief] 10 mg PO DAILY 01/01/18 12/31/17 History Losartan Potassium [Cozaar] 25 mg PO DAILY 01/01/18 01/01/18 History Metoprolol Succinate [Toprol XL 25 mg PO DAILY 01/01/18 01/01/18 History 25mg tablet] Ondansetron [Zofran 4mg ODT] 4 mg PO QIDP PRN 01/01/18 01/01/18 History Pantoprazole Sodium [Protonix 40mg 40 mg PO DAILY 01/01/18 12/31/17 History tablet] Ropinirole HCl 1 mg PO HS 01/01/18 01/01/18 History clonazePAM [Klonopin] 0.5 mg PO BID 01/01/18 01/01/18 History Allergies Allergy/AdvReac Type Severity Reaction Status Date / Time codeine [CODEINE] Allergy Unknown Verified 12/29/17 07:48 ibuprofen [IBUPROFEN] Allergy Unknown Verified 12/29/17 07:48 Iodinated Contrast Media - Allergy Unknown Verified 12/29/17 07:48 Oral and [IODINATED CONTRAST MEDIA - IV DYE] morphine [MORPHINE] Allergy Unknown Verified 12/29/17 07:48 prednisone [PREDNISONE] Allergy Unknown Verified 12/29/17 07:48 prochlorperazine Allergy Unknown Verified 12/29/17 07:48 [PROCHLORPERAZINE] promethazine [From PHENERGAN] Allergy Unknown Verified 12/29/17 07:48 tramadol [TRAMADOL] Allergy Unknown Verified 12/29/17 07:48 cephalexin [From Keflex] Allergy Verified 12/29/17 07:48 Exam Vital signs and Labs for Last 24 Hours: Temp Pulse Resp BP Pulse Ox 97.6 F 55 L 20 115/53 96 01/01/18 07:23 01/01/18 07:23 01/01/18 07:23 01/01/18 07:23 01/01/18 07:23 Laboratory Results - last 24 hr 12/31/17 12:00: WBC 7.7, RBC 3.72 L, Hgb 11.1 L, Hct 34.6 L, MCV 93.0, MCH 30.0 , MCHC 32.2, RDW 13.7, Plt Count 252, MPV 9.1, Neut % (Auto) 63.1, Lymph % (Auto ) 22.8, [place] % (Auto) 6.2, Eos % (Auto) 7.4, Baso % (Auto) 0.4, Neut # (Auto) 4.9, Lymph # (Auto) 1.8, [place] # (Auto) 0.5, Eos # (Auto) 0.6 H, Baso # (Auto) 0.0 12/31/17 12:00: Sodium 141, Potassium 4.4, Chloride 106, Carbon Dioxide 29, Anion Gap 6.1, BUN 34 H, Creatinine 1.34 H, Estimated Creat Clear 52, Estimated GFR 40 L, Est GFR ( Amer) 48 L, Glucose 93, Calcium 9.1, Magnesium 2.3 H , Total Bilirubin 0.6, AST 168 H, ALT 89 H, Alkaline Phosphatase 158 H, Troponin I < 0.02, Total Protein 7.7, Albumin 3.8, Globulin 3.9 H, Albumin/ Globulin Ratio 1.0 L, Triglycerides 85, Lipase 197 12/31/17 15:50: Troponin I < 0.02 12/31/17 21:10: Troponin I < 0.02 12/31/17 23:45: Troponin I < 0.02 01/01/18 03:05: WBC 6.4, RBC 3.08 L, Hgb 9.6 L D, Hct 28.3 L, MCV 91.9, MCH 31.1 , MCHC 33.8, RDW 13.8, Plt Count 115 L D, MPV 10.7 H, Neut % (Auto) 78.9, Lymph % (Auto) 15.5, [place] % (Auto) 2.9, Eos % (Auto) 2.6, Baso % (Auto) 0.1, Neut # ( Auto) 5.0, Lymph # (Auto) 1.0, [place] # (Auto) 0.2, Eos # (Auto) 0.2, Baso # (Auto ) 0.0 01/01/18 03:05: Sodium 140, Potassium 4.4, Chloride 109 H, Carbon Dioxide 25, Anion Gap 10.4, BUN 22 H D, Creatinine 0.91 D, Estimated Creat Clear 73, Estimated GFR 63, Est GFR ( Amer) 76 D, Glucose 187 H D, Troponin I < 0.02 I & O for Last 24 hours: Intake & Output 12/29/17 12/30/17 12/31/17 01/01/18 11:59 11:59 11:59 11:59 Intake Total 1884 / 1884 Balance 1884 / 1884 Weight 168 lb 174 lb 4 oz - Constitutional no acute distress - *Routine HEENT Exam Head: Present: normocephalic Eye: Present: EOMI, PERRL. Absent: conjunctival icterus ENT: Present: mucous membranes dry - *Routine Neck Exam Present: supple - *Routine Respiratory Exam Present: CTA bilaterally - *Routine Cardiovascular Exam Present: RRR, murmur - *Routine Abdominal Exam Present: soft, tenderness - *Routine Extremities Exam Present: full ROM - *Routine Skin Exam Present: intact - *Routine Neurological Exam Present: alert, oriented X3, CN II-XII intact - Routine Psychiatric Exam Present: normal affect H&P: Result - Labs Labs: Short CBC 12/31/17 01/01/18 Range/Units 12:00 03:05 WBC 7.7 6.4 (4.8-10.8) K/mm3 Hgb 11.1 L 9.6 L D (12.2-16.2) g/dL Hct 34.6 L 28.3 L (37.0-47.0) % Plt Count 252 115 L D (142-424) K/mm3 BMP 12/31/17 01/01/18 12:00 03:05 Sodium 141 140 Potassium 4.4 4.4 Chloride 106 109 H Carbon Dioxide 29 25 BUN 34 H 22 H D Creatinine 1.34 H 0.91 D Glucose 93 187 H D Calcium 9.1 Cardiac Enzymes 12/31/17 12/31/17 12/31/17 Range/Units 12:00 15:50 21:10 Troponin I < 0.02 < 0.02 < 0.02 (0.00-0.06) ng/ml 12/31/17 01/01/18 Range/Units 23:45 03:05 Troponin I < 0.02 < 0.02 (0.00-0.06) ng/ml Liver Function 12/31/17 Range/Units 12:00 Total Bilirubin 0.6 (0.2-1.0) mg/dL AST 168 H (15-37) U/L ALT 89 H (12-78) U/L Alkaline Phosphatase 158 H (46-116) U/L Albumin 3.8 (3.4-5.0) gm/dL Assessment and Plan (1) Abdominal pain Current visit: Yes Status: Acute Category: Medical Code(s): R10.9 - Unspecified abdominal pain (2) Elevated LFTs Current visit: Yes Status: Acute Category: Medical Code(s): R79.89 - Other specified abnormal findings of blood chemistry (3) Renal insufficiency Current visit: Yes Status: Acute Category: Medical Code(s): N28.9 - Disorder of kidney and ureter, unspecified (4) Anemia Current visit: Yes Status: Acute Qualifiers: Anemia type: unspecified type Qualified Code(s): D64.9 - Anemia, unspecified Category: Medical Code(s): D64.9 - Anemia, unspecified
[2018-01-01 09:55] LABS: Bilirubin,Direct 0.1 mg/dL (0.0-0.2); Bilirubin,Indirect 0.3 mg/dL (0.0-0.9); Bilirubin,Total 0.4 mg/dL (0.2-1.0); Total Protein,Serum 6.4 gm/dL (6.4-8.2)
--- NOTE | 2018-01-01 13:12 | Progress Note ---
[facility] Anesthesia Checklist - Patient Identification Patient Identification: Arm Band, Verbal (Name & ) - Structural Data Admitted From: Home Consent for Planned Operative Procedure(s) Verified: Yes Verified Documents: Surgical Consent, History and Physical - NPO Status Verified Time NPO: 00:00 - Additional verifications Patient : No Anesthesia Reactions: No - Airway Assessment C-Spine Mobility Assessed: Yes TMJ Mobility Assessed: Yes Dentition: Edentulous - Neurological Assessment Level of Consciousness: Awake Hx Seizures: No Numbness or tingling in extremities: No - Anesthesia Plan Anesthesia Risk discussed: Yes Anesthesia Plan: Verified ASA Class: III Anesthesia Type: [facility] Anesthesia HX I have reviewed the patient's past medical history: Yes Medical History: Reports:: Anxiety, Congestive Heart Failure, Depression, Gastroesophageal Reflux Disease(GERD), Hypertension Denies:: Cancer, Diabetes Mellitus Type 1, Diabetes Mellitus Type 2, Internal Pacemaker, MRSA, Seizures Other Medical History: Reports: Anemia, Arthritis, Hypothyroidism, Other (Crohns ) Other Surgeries: Yes: Appendectomy, Hysterectomy-Total, Sinus Surgery, Other. No: Pacemaker Amputation: No Fractures: No *Family Hx:: Coronary Artery Disease, Heart Attack
--- NOTE | 2018-01-01 15:32 | Procedure Note ---
[facility] Procedure Note Procedure Note:: ERCP procedure Report: Endoscopic retrograde cholangiopancreatography with biliary sphincterotomy and balloon extraction Endoscopist: Rasheed Vizcarra II, MD Referring Physician: Reuben Fong MD Date of Procedure: January 01, 2018 Equipment: Olympus 180 side viewing endoscope/duodenal scope Sedation: MAC sedation Indication: Mrs. Gonzalez is a 62-year-old female with the acute onset of epigastric/right upper quadrant abdominal pain over the last several weeks. This did worsen and she was admitted. She had a CAT scan of the abdomen and pelvis which showed prior cholecystectomy (she had cholecystectomy 25-30 years ago). The CAT scan did show a dilated common bile duct up to 11 mm (possibly postcholecystectomy changes). The patient also had some escalation of her biliary/liver chemistries with AST 168, ALT 89 and alkaline phosphatase 158. She did have gallbladder removal many years ago for gallstones. The patient has had some intermittent vomiting with this severe epigastric pain. She does have a history of Crohn's disease in remission and this had been followed by Dr. Librado Griffiths 10-15 years ago but she has not been followed with anybody routinely more recently. The patient's lab work does show anemia with hemoglobin 9.6, hematocrit 28.3 and creatinine 1.34. She reports no bloating, gassiness or belching. Procedure: Prior to the procedure, a history and physical exam was performed, and patient' s medications and allergies were reviewed. The risks, benefits and alternatives of the sedation and procedure were discussed with the patient. All questions were answered and informed consent was obtained. The patient was brought to the fluoroscopic radiology room. Patient identification and proposed procedure were verified by the physician and the nurse. The patient was placed in a swimmer's position between left lateral decubitus and prone position and the scope was passed under direct vision. Throughout the procedure , the patient's blood pressure, pulse, and oxygen saturations were monitored continuously. The ERCP was accomplished without difficulty. The patient tolerated the procedure well. Findings: The scope was advanced directly into the upper esophagus and passed to the second portion of the duodenum. The esophagus, stomach and duodenum were grossly normal. The ampulla was well visualized. The common bile duct was selectively cannulated. The cholangiogram did show a 13 mm common hepatic duct and 11-12 mm common bile duct. There is no discrete filling defect identified. There was delayed drainage of contrast and bile from the biliary system. There appeared to be a very prominent sphincter of Oddi. The cystic duct stump was normal in size. There was normal filling of the intrahepatic biliary system. A generous biliary sphincterotomy was performed. Next, a 9-12 mm sweeping balloon was placed at the hilum and swept through the biliary system with the passage of delcid bile and minimal debris. The pancreatic duct was not cannulated intentionally. Impression: 1. 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 She should have clinical improvement with biliary sphincterotomy.
[2018-01-02 06:04] LABS: Basophils % 0.4 % (0.1-2.0); Eosinophils # 0.2 K/mm3 (0.0-0.4); Hematocrit 25.5 % (37.0-47.0); Hemoglobin 8.2 g/dL (12.2-16.2); Lymphocytes % 35.5 K/mm3 (10-50); Mean Corpuscular Hemoglobin 29.8 pg (27.0-31.2); Mean Corpuscular Volume 93.2 fl (81-99); Mean Platelet Volume 9.8 fl (7.4-10.4); Monocytes # 0.4 K/mm3 (0.1-1.0); Monocytes % 6.7 % (1.7-9.3); Neutrophils % 53.4 % (37.0-80.0); Platelet Count 189 K/mm3 (142-424); Red Blood Count 2.74 M/mm3 (4.20-5.40); Red Cell Distribution Width 13.9 % (11.5-17.5); White Blood Count 5.6 K/mm3 (4.8-10.8)
[2018-01-02 06:23] LABS: Albumin Level 2.8 gm/dL (3.4-5.0); Bilirubin,Direct 0.1 mg/dL (0.0-0.2); Bilirubin,Indirect 0.2 mg/dL (0.0-0.9); Bilirubin,Total 0.3 mg/dL (0.2-1.0); Total Protein,Serum 5.6 gm/dL (6.4-8.2)
--- NOTE | 2018-01-02 08:43 | Progress Note ---
Internal Medicine - PN: Subj *Date: 01/02/18 *Time: 08:36 Exam Vital signs and Labs for Last 24 Hours: Temp Pulse Resp BP Pulse Ox 98.6 F 47 L 16 113/58 95 01/02/18 07:42 01/02/18 07:42 01/02/18 07:42 01/02/18 07:42 01/02/18 07:42 Laboratory Results - last 24 hr 01/01/18 09:30: Total Bilirubin 0.4, Direct Bilirubin 0.1, Indirect Bilirubin 0.3, AST 113 H D, ALT 128 H D, Alkaline Phosphatase 147 H, Total Protein 6.4, Albumin 3.0 L D 01/02/18 05:15: WBC 5.6, RBC 2.74 L, Hgb 8.2 L, Hct 25.5 L, MCV 93.2, MCH 29.8, MCHC 32.0, RDW 13.9, Plt Count 189 D, MPV 9.8, Neut % (Auto) 53.4, Lymph % ( Auto) 35.5, [place] % (Auto) 6.7, Eos % (Auto) 4.0, Baso % (Auto) 0.4, Neut # (Auto ) 3.0, Lymph # (Auto) 2.0, [place] # (Auto) 0.4, Eos # (Auto) 0.2, Baso # (Auto) 0.0 01/02/18 05:15: Total Bilirubin 0.3, Direct Bilirubin 0.1, Indirect Bilirubin 0.2, AST 104 H, ALT 109 H, Alkaline Phosphatase 135 H, Total Protein 5.6 L, Albumin 2.8 L, Lipase 69 L I & O for Last 24 hours: Intake & Output 12/30/17 12/31/17 01/01/18 01/02/18 11:59 11:59 11:59 11:59 Intake Total 1885 / 1885 2175 / 2175 Output Total 500 / 500 Balance 1884 / 188 1675 / 1675 Weight 168 lb 174 lb 4 oz 174 lb 3.983 oz - Constitutional no acute distress - *Routine HEENT Exam Head: Present: normocephalic Eye: Present: PERRL ENT: Present: mucous membranes moist - *Routine Respiratory Exam Present: CTA bilaterally - *Routine Cardiovascular Exam Present: RRR - *Routine Abdominal Exam Present: soft, normoactive bowel sounds. Absent: distended, rebound - *Routine Extremities Exam Present: full ROM - *Routine Skin Exam Present: intact - *Routine Neurological Exam Present: alert, oriented X3, CN II-XII intact - Routine Psychiatric Exam Present: normal affect, normal thought process Assessment and Plan (1) Abdominal pain Current visit: Yes Status: Acute Category: Medical Code(s): R10.9 - Unspecified abdominal pain (2) Elevated LFTs Current visit: Yes Status: Acute Category: Medical Code(s): R79.89 - Other specified abnormal findings of blood chemistry (3) Renal insufficiency Current visit: Yes Status: Acute Category: Medical Code(s): N28.9 - Disorder of kidney and ureter, unspecified (4) Anemia Current visit: Yes Status: Acute Qualifiers: Anemia type: unspecified type Qualified Code(s): D64.9 - Anemia, unspecified Category: Medical Code(s): D64.9 - Anemia, unspecified - Assessment and plan all Dx Assessment and Plan for all problems:: Rounded with Dr. Fong all orders per Dr. Fong, Advanced to a full liquid diet this a.m. if tolerated advance diet further and possible discharge
[2018-01-02 14:48] LABS: Hematocrit 31.6 % (37.0-47.0)
[2018-01-02 14:55] LABS: Hemoglobin 10.1 g/dL (12.2-16.2)
[2018-01-03 07:24] VITALS: BP 110/71
--- NOTE | 2018-01-03 09:29 | Discharge Summary ---
General - General Admission date:: 12/31/17 Discharge date: 01/03/18 HPI HPI: this wf with upper abd pain progressive over the last 2 weeks was sen in the ed - years old white female status post multiple abdominal surgeries and Crohn's disease currently on no medications. The patient reports that she has been experiencing upper abdominal pain for 2 weeks with intermittent vomiting. His morning she was unable to keep any food. He did come to the ED for evaluation. At that her systolic blood pressure was 97 mmHg. Denies having chest pain shortness of breath palpitations hemoptysis hematemesis coffee-ground emesis but she has some loose stool. Hospital Course Hospital Course: pt did well with ivf and pain meds and was seen by dr baker -Indication: Mrs. Gonzalez is a 62-year-old female with the acute onset of epigastric/right upper quadrant abdominal pain over the last several weeks. This did worsen and she was admitted. She had a CAT scan of the abdomen and pelvis which showed prior cholecystectomy (she had cholecystectomy 25-30 years ago). The CAT scan did show a dilated common bile duct up to 11 mm (possibly postcholecystectomy changes). The patient also had some escalation of her biliary/liver chemistries with AST 168, ALT 89 and alkaline phosphatase 158. She did have gallbladder removal many years ago for gallstones. The patient has had some intermittent vomiting with this severe epigastric pain. She does have a history of Crohn's disease in remission and this had been followed by Dr. Librado Griffiths 10-15 years ago but she has not been followed with anybody routinely more recently. The patient's lab work does show anemia with hemoglobin 9.6, hematocrit 28.3 and creatinine 1.34. She reports no bloating, gassiness or belching. pt had procedure rior to the procedure, a history and physical exam was performed, and patient's medications and allergies were reviewed. The risks, benefits and alternatives of the sedation and procedure were discussed with the patient. All questions were answered and informed consent was obtained. The patient was brought to the fluoroscopic radiology room. Patient identification and proposed procedure were verified by the physician and the nurse. The patient was placed in a swimmer's position between left lateral decubitus and prone position and the scope was passed under direct vision. Throughout the procedure, the patient's blood pressure, pulse, and oxygen saturations were monitored continuously. The ERCP was accomplished without difficulty. The patient tolerated the procedure well. Findings: The scope was advanced directly into the upper esophagus and passed to the second portion of the duodenum. The esophagus, stomach and duodenum were grossly normal. The ampulla was well visualized. The common bile duct was selectively cannulated. The cholangiogram did show a 13 mm common hepatic duct and 11-12 mm common bile duct. There is no discrete filling defect identified. There was delayed drainage of contrast and bile from the biliary system. There appeared to be a very prominent sphincter of Oddi. The cystic duct stump was normal in size. There was normal filling of the intrahepatic biliary system. A generous biliary sphincterotomy was performed. Next, a 9-12 mm sweeping balloon was placed at the hilum and swept through the biliary system with the passage of delcid bile and minimal debris. The pancreatic duct was not cannulated intentionally. Impression: 1. 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 She should have clinical improvement with biliary sphincterotomy. pt did well with pain and diet Objective Vital signs: Temp Pulse Resp BP Pulse Ox 98.3 F 58 L 20 110/71 95 01/03/18 07:23 01/03/18 07:23 01/03/18 07:23 01/03/18 07:23 01/03/18 07:23 no acute distress - *Routine HEENT Exam Head: Present: normocephalic Eye: Present: EOMI, PERRL. Absent: conjunctival icterus ENT: Present: mucous membranes dry - *Routine Neck Exam Present: supple - *Routine Respiratory Exam Present: CTA bilaterally - *Routine Cardiovascular Exam Present: RRR, murmur - *Routine Abdominal Exam Present: soft, tenderness - *Routine Extremities Exam Present: full ROM - *Routine Skin Exam Present: intact - *Routine Neurological Exam Present: alert, oriented X3, CN II-XII intact - Routine Psychiatric Exam Present: normal affect Results Labs on day of discharge: Labs from last 24 hours 01/02/18 01/02/18 14:28 09:30 Hgb 10.1 L D Hct 31.6 L Blood Type A Positive Antibody Screen Negative Crossmatch (AHG) See Detail DS: Diagnosis - Discharge Diagnosis (1) Abdominal pain Status: Acute (2) Elevated LFTs Status: Acute (3) Renal insufficiency Status: Acute (4) Anemia Status: Acute (5) Sphincter of Oddi dysfunction Status: Acute Discharge Plan - Patient Discharge Instructions ACTIVITY: Continue current activity DIET: continue same diet Patient Instructions: [place] Diet - Follow up Plan Disposition: Home, Self-Half-Way Medications: Home Medications Medication Instructions Recorded Confirmed Type aspirin 81 mg tablet,delayed 81 mg PO DAILY tab 12/01/17 12/31/17 History release Furosemide [Furosemide 40MG tAB] 40 mg PO Q48H 12/27/17 01/01/18 History Furosemide [Lasix 20mg tab] 20 mg PO QODHS 12/27/17 12/31/17 History Spironolactone [Spironolactone 25 mg PO DAILY 12/27/17 01/01/18 History 25mg Tab] Benzonatate [Benzonatate 100mg 100 mg PO TIDP PRN 01/01/18 01/01/18 History cap] Duloxetine HCl [Cymbalta] 30 mg PO DAILY 01/01/18 01/01/18 History Gabapentin [Neurontin 600mg 600 mg PO TID 01/01/18 12/31/17 History tablet] Hydrocodone/Acetaminophen [Lortab 1 tab PO Q8HP PRN 01/01/18 01/01/18 History 7.5/325mg tablet] Loratadine [Allergy Relief] 10 mg PO DAILY 01/01/18 12/31/17 History Losartan Potassium [Cozaar] 25 mg PO DAILY 01/01/18 01/01/18 History Metoprolol Succinate [Toprol XL 25 mg PO DAILY 01/01/18 01/01/18 History 25mg tablet] Ondansetron [Zofran 4mg ODT] 4 mg PO QIDP PRN 01/01/18 01/01/18 History Pantoprazole Sodium [Protonix 40mg 40 mg PO DAILY 01/01/18 12/31/17 History tablet] Ropinirole HCl 1 mg PO HS 01/01/18 01/01/18 History clonazePAM [Klonopin] 0.5 mg PO BID 01/01/18 01/01/18 History Prescriptions/Medication Reconciliation: New clonazePAM [Klonopin 0.5mg tablet] 0.5 mg PO BID tablet Gabapentin [Neurontin 600mg tablet] 600 mg PO TID tablet Hydrocodone/Acetaminophen [Lortab 7.5/325mg tablet] 1 tab PO TID tablet Metoprolol Succinate [Toprol XL 25mg tablet] 25 mg PO DAILY tab.er.24h Ondansetron [Zofran 4mg ODT] 4 mg PO Q8HP PRN tab.rapdis PRN Reason: Nausea And Vomiting Ropinirole HCl [Requip 1mg Tablet] 1 mg PO HS tablet Pantoprazole Sodium [Protonix 40mg Vial] 80 mg IV .Q10H vial Aspirin [Aspirin 81mg EC Tab] 81 mg PO DAILY tablet. Duloxetine HCl [Cymbalta 30mg capsule] 30 mg PO DAILY capsule.dr Munguia aspirin 81 mg tablet,delayed release 81 mg PO DAILY tab Metoprolol Succinate [Toprol XL 25mg tablet] 25 mg PO DAILY Hydrocodone/Acetaminophen [Lortab 7.5/325mg tablet] 1 tab PO Q8HP PRN PRN Reason: PAIN clonazePAM [Klonopin] 0.5 mg PO BID Ondansetron [Zofran 4mg ODT] 4 mg PO QIDP PRN PRN Reason: Nausea Ropinirole HCl 1 mg PO HS Gabapentin [Neurontin 600mg tablet] 600 mg PO TID Losartan Potassium [Cozaar] 25 mg PO DAILY Pantoprazole Sodium [Protonix 40mg tablet] 40 mg PO DAILY Loratadine [Allergy Relief] 10 mg PO DAILY Duloxetine HCl [Cymbalta] 30 mg PO DAILY Benzonatate [Benzonatate 100mg cap] 100 mg PO TIDP PRN PRN Reason: Cough Discontinued Spironolactone [Spironolactone 25mg Tab] 25 mg PO DAILY Furosemide [Lasix 20mg tab] 20 mg PO QODHS Furosemide [Furosemide 40MG tAB] 40 mg PO Q48H
== END 2018-01-03 10:00 | disposition home or self-care (01) ==
LOC: ER 10:54 → 2ND 10:54 → OBSVTOIN 15:37 → 2ND 15:38
PROVIDERS: ADMIT Internal Medicine Adolescent Medicine; ATTEND Emergency Medicine
CPT/HCPCS: 36415; 74176; 74330; 80048; 80053; 80076; 80305; 83690; 83735; 84478; 84484; 85014; 85018; 85025; 86850; 90732; 96365; 96366; 96375; 99284; J2405; P9016; Q9967

== ENCOUNTER → 2018-01-26 13:18 | Outpatient (CLI) | payer MEDICAID, SELFPAY ==
[2018-01-26 18:30] LABS: Amphetamine/Metha Screen,Urine Negative ng/mL (<1000); Barbiturates Screen,Urine Negative ng/mL (<200); Benzodiazepines Screen,Urine Positive ng/mL (200); Cannabinoid Screen,Urine Negative ng/mL (<50); Cocaine Screen,Urine Negative ng/g (<300); Methadone Screen,Urine Negative ng/mL (<300); Opiate Screen,Urine Positive ng/mL (<300); Phencyclidine Screen,Urine Negative ng/mL (<25)
== END ==
PROVIDERS: Visit Provider Emergency Medicine
DX: Z79.899 Other long term (current) drug therapy (principal)
CPT/HCPCS: 80305

== ENCOUNTER → 2018-02-23 15:30 | Outpatient (REF) | payer MEDICAID, SELFPAY ==
[2018-02-23 17:36] LABS: Amphetamine/Metha Screen,Urine Negative ng/mL (<1000); Barbiturates Screen,Urine Negative ng/mL (<200); Benzodiazepines Screen,Urine Positive ng/mL (<200); Cannabinoid Screen,Urine Negative ng/mL (<50); Cocaine Screen,Urine Negative ng/mL (<300); Methadone Screen,Urine Negative ng/mL (<300); Opiate Screen,Urine Positive ng/mL (<300); Phencyclidine Screen,Urine Negative ng/mL (<25)
== END ==
LOC: LAB 15:30
PROVIDERS: Visit Provider Emergency Medicine
DX: Z79.899 Other long term (current) drug therapy (principal)
CPT/HCPCS: 80305

== ENCOUNTER → 2018-03-23 13:13 | Outpatient (REF) | payer MEDICAID, SELFPAY ==
[2018-03-23 18:51] LABS: Amphetamine/Metha Screen,Urine Negative ng/mL (<1000); Barbiturates Screen,Urine Negative ng/mL (<200); Benzodiazepines Screen,Urine Positive ng/mL (<200); Cannabinoid Screen,Urine Negative ng/mL (<50); Cocaine Screen,Urine Negative ng/mL (<300); Methadone Screen,Urine Negative ng/mL (<300); Opiate Screen,Urine Negative ng/mL (<300); Phencyclidine Screen,Urine Negative ng/mL (<25)
== END ==
LOC: LAB 13:13
PROVIDERS: Visit Provider Emergency Medicine
DX: Z79.899 Other long term (current) drug therapy (principal)
CPT/HCPCS: 80305

== ENCOUNTER → 2018-04-24 14:41 | Outpatient (REF) | payer MEDICAID, SELFPAY ==
[2018-04-24 19:39] LABS: Amphetamine/Metha Screen,Urine Negative ng/mL (<1000); Barbiturates Screen,Urine Negative ng/mL (<200); Benzodiazepines Screen,Urine Negative ng/mL (<200); Cannabinoid Screen,Urine Negative ng/mL (<50); Cocaine Screen,Urine Negative ng/mL (<300); Methadone Screen,Urine Negative ng/mL (<300); Opiate Screen,Urine Negative ng/mL (<300); Phencyclidine Screen,Urine Negative ng/mL (<25)
== END ==
LOC: LAB 14:41
PROVIDERS: Visit Provider Emergency Medicine
DX: Z79.899 Other long term (current) drug therapy (principal)
CPT/HCPCS: 80305

== ENCOUNTER → 2018-05-23 13:15 | Outpatient (REF) | payer MEDICAID, SELFPAY ==
[2018-05-23 19:28] LABS: Amphetamine/Metha Screen,Urine Negative ng/mL (<1000); Barbiturates Screen,Urine Negative ng/mL (<200); Benzodiazepines Screen,Urine Positive ng/mL (<200); Cannabinoid Screen,Urine Negative ng/mL (<50); Cocaine Screen,Urine Negative ng/mL (<300); Methadone Screen,Urine Negative ng/mL (<300); Opiate Screen,Urine Positive ng/mL (<300); Phencyclidine Screen,Urine Negative ng/mL (<25)
== END ==
LOC: LAB 13:15
PROVIDERS: Visit Provider Emergency Medicine
DX: Z79.899 Other long term (current) drug therapy (principal)
CPT/HCPCS: 80305

== ENCOUNTER → 2018-06-21 18:27 | Outpatient (CLI) | payer MEDICAID, SELFPAY ==
[2018-06-21 19:51] LABS: Amphetamine/Metha Screen,Urine Negative ng/mL (<1000); Barbiturates Screen,Urine Negative ng/mL (<200); Benzodiazepines Screen,Urine Positive ng/mL (<200); Cannabinoid Screen,Urine Negative ng/mL (<50); Cocaine Screen,Urine Negative ng/mL (<300); Methadone Screen,Urine Negative ng/mL (<300); Opiate Screen,Urine Negative ng/mL (<300); Phencyclidine Screen,Urine Negative ng/mL (<25)
== END ==
PROVIDERS: Visit Provider Emergency Medicine
DX: Z79.899 Other long term (current) drug therapy (principal)
CPT/HCPCS: 80305

== ENCOUNTER → 2018-07-20 18:24 | Outpatient (CLI) | payer MEDICAID, SELFPAY ==
[2018-07-20 19:07] LABS: Amphetamine/Metha Screen,Urine Negative ng/mL (<1000); Barbiturates Screen,Urine Negative ng/mL (<200); Benzodiazepines Screen,Urine Positive ng/mL (<200); Cannabinoid Screen,Urine Negative ng/mL (<50); Cocaine Screen,Urine Negative ng/mL (<300); Methadone Screen,Urine Negative ng/mL (<300); Opiate Screen,Urine Positive ng/mL (<300); Phencyclidine Screen,Urine Negative ng/mL (<25)
== END ==
PROVIDERS: Visit Provider Emergency Medicine
DX: Z79.891 Long term (current) use of opiate analgesic (principal)
CPT/HCPCS: 80305

== ENCOUNTER → 2018-08-20 17:09 | Outpatient (CLI) | payer MEDICAID, SELFPAY ==
[2018-08-20 19:57] LABS: Amphetamine/Metha Screen,Urine Negative ng/mL (<1000); Barbiturates Screen,Urine Negative ng/mL (<200); Benzodiazepines Screen,Urine Negative ng/mL (<200); Cannabinoid Screen,Urine Negative ng/mL (<50); Cocaine Screen,Urine Negative ng/mL (<300); Methadone Screen,Urine Negative ng/mL (<300); Opiate Screen,Urine Positive ng/mL (<300); Phencyclidine Screen,Urine Negative ng/mL (<25)
[2018-08-25 16:12] LABS: Alprazolam Negative (Cutoff=100); Benzodiazepines Negative ng/mL (Cutoff=100); Clonazepam Negative (Cutoff=100); Flurazepam Negative (Cutoff=100); Lorazepam Negative (Cutoff=100); Midazolam Negative (Cutoff=100); Temazepam Negative (Cutoff=100); Triazolam Negative (Cutoff=100)
== END ==
PROVIDERS: Visit Provider Emergency Medicine
DX: Z79.899 Other long term (current) drug therapy (principal)
CPT/HCPCS: 80305; 80346

== ENCOUNTER 2018-11-21 18:19 | Observation (INO) ==
[2018-11-21 18:46] LABS: Microscopic, Urine URINE MICROSCOPIC (MICROSCOPIC)
[2018-11-21 18:47] LABS: Appearance,Urine CLEAR (Clear); Blood, Urine Negative (Negative); Color,Urine YELLOW (Yellow); Glucose,Urine (UA) Negative (Negative); Ketones,Urine TRACE (Negative); Leukocyte Esterase,Urine Negative (Negative); PH,Urine 5.5 (5.0-8.5); Protein,Urine Negative (Negative); Specific Gravity, Urine >= 1.030 (1.005-1.030); Urobilinogen,Urine 0.2 EU/dl (0.2)
[2018-11-21 18:50] LABS: Bilirubin,Urine Negative (Negative)
[2018-11-21 18:56] LABS: Bacteria,Urine 1+ /lpf; Mucus,Urine 1+ /lpf
[2018-11-21 19:07] LABS: Basophils # 0.1 K/mm3 (0-0.2); Basophils % 0.6 % (0.1-2.0); Eosinophils # 0.4 K/mm3 (0.0-0.4); Eosinophils % 4.9 % (0.1-12.0); Hematocrit 34.3 % (37.0-47.0); Hemoglobin 11.3 g/dL (12.2-16.2); Lymphocytes # 3.4 K/mm3 (0.7-4.5); Lymphocytes % 43.2 % (10-50); Mean Corpuscular HGB Conc 32.8 g/dL (31.8-35.4); Mean Corpuscular Hemoglobin 30.4 pg (27.0-31.2); Mean Corpuscular Volume 92.8 fl (81-99); Mean Platelet Volume 9.9 fl (7.4-10.4); Monocytes # 0.5 K/mm3 (0.1-1.0); Neutrophils # 3.6 K/mm3 (1.8-7.8); Neutrophils % 45.3 % (37.0-80.0); Platelet Count 275 K/mm3 (142-424); Red Cell Distribution Width 12.9 % (11.5-17.5); White Blood Count 7.9 K/mm3 (4.8-10.8)
[2018-11-21 19:24] LABS: Albumin Level 4.2 gm/dL (3.4-5.0); Albumin/Globulin Ratio 1.1 (1.1-1.8); Anion Gap 12.7 mEq/L (5-15); Bilirubin,Total 0.2 mg/dL (0.2-1.0); Calcium 9.2 mg/dL (8.5-10.1); Globulin 3.9 gm/dl (1.3-3.2); Potassium 4.7 mmoL/L (3.5-5.1); Total Protein,Serum 8.1 gm/dL (6.4-8.2)
--- NOTE | 2018-11-21 20:52 | Emergency Department Note ---
ED Disposition Clinical Impression: Renal failure, acute Qualifiers: Acute renal failure type: unspecified Qualified Code(s): N17.9 - Acute kidney failure, unspecified Abdominal pain Qualifiers: Abdominal location: epigastric Qualified Code(s): R10.13 - Epigastric pain Disposition: Admitted as Observation Condition on Discharge: Fair Instructions: DI for Acute Abdomen Referrals: Reuben Fong MD [Primary Care Provider] - - Critical Care Critical Care Time: No Attestation: On 11/21/18, the high probability of a clinically significant, sudden or life threatening deterioration of the following system(s) required my full and direct attention, intervention and personal management. The time I documented below is in addition to time spent performing reported procedures but includes the following listed in this critical care notation. Medical Decision Making - Medical Records Medical records reviewed: Yes: I reviewed the patient's medical records. - Grant Inquiry Pt receiving controlled substance: No Vital Signs: 11/21/18 18:33 Temperature 98.2 F Temperature Source Oral Pulse Rate [Right Brachial] 65 Respiratory Rate 14 Blood Pressure [Right Arm] 93/55 L Blood Pressure Mean [Right Arm] 67 Blood Pressure Source [Right Arm] Automatic Cuff Blood Pressure Position [Right Arm] Sitting 02 Sat by Pulse Oximetry 100 Oxygen Delivery Method Room Air - Lab Data Lab results reviewed: Yes: I reviewed the patient's lab results. Lab Results 11/21/18 18:30: Urine Color Yellow, Urine Appearance Clear, Urine pH 5.5, Ur Specific [place] >= 1.030, Urine Protein Negative, Urine Glucose (UA) Negative, Urine Ketones Trace, Urine Blood Negative, Urine Nitrate Negative, Urine Bilirubin Negative, Urine Urobilinogen 0.2, Ur Leukocyte Esterase Negative, Urine RBC None, Urine WBC 3-5, Ur Squamous Epith Cells 10-20, Urine Bacteria 1+, Urine Mucus 1+ 11/21/18 18:55: WBC 7.9, RBC 3.70 L, Hgb 11.3 L, Hct 34.3 L, MCV 92.8, MCH 30.4, MCHC 32.8, RDW 12.9, Plt Count 275, MPV 9.9, Neut % (Auto) 45.3, Lymph % (Auto) 43.2, [place] % (Auto) 6.0, Eos % (Auto) 4.9, Baso % (Auto) 0.6, Neut # (Auto) 3.6, Lymph # (Auto) 3.4, [place] # (Auto) 0.5, Eos # (Auto) 0.4, Baso # (Auto) 0.1 11/21/18 18:55: Sodium 141, Potassium 4.7, Chloride 105, Carbon Dioxide 28, Anion Gap 12.7, BUN 34 H, Creatinine 2.18 H, Estimated Creat Clear 29, Estimated GFR 23 L, Est GFR ( Amer) 28 L, Glucose 88, Calcium 9.2, Total Bilirubin 0.2, AST 15, ALT 18, Alkaline Phosphatase 76, Total Protein 8.1, Albumin 4.2, G lobulin 3.9 H, Albumin/Globulin Ratio 1.1, Amylase 28, Lipase 200 Result diagrams: 11/21/18 18:55 11/21/18 18:55 Orders (Tests/Meds): ED MEDICATIONS Generic Name Dose Route Start Last Admin Trade Name Freq PRN Reason Stop Dose Admin Sodium Chloride 1,000 mls @ 999 mls/hr 11/21/18 18:45 11/21/18 18:43 Sod Chlor 0.9% 1000ml Bag IV 11/21/18 19:45 999 mls/hr .Q1H1M CEM Administration Discontinued Medications Generic Name Dose Route Start Last Admin Trade Name Freq PRN Reason Stop Dose Admin Ondansetron HCl 4 mg 11/21/18 18:36 11/21/18 18:43 Zofran 4mg/2ml Vial IV 11/21/18 18:37 4 mg ONCE ONE Administration ORDERS Category Date Time Status CT abdomen pelvis w con Stat Cat Scan 11/21/18 18:[address] abdomen pelvis wo con Stat Cat Scan 11/21/18 19:59 Ordered - CT Data CT Scan: Abdomen, Pelvis Time Received: 21:[address] Reviewed: Yes: I have viewed the radiologist's interpretation Preliminary Findings: Normal/NAD Nausea/Vomiting/Diarrhea HPI - General Chief complaint: Abdominal Pain Stated complaint: Abd pain,vomiting Time Seen by Provider: 11/21/18 20:00 Mode of Arrival: Ambulatory Source of Information: Patient, Medical Record Limitations: No Limitations Description of Symptoms (Recalled from ER Triage Doc. by RN): PT c/o abd pain, and feeling nauseated - History of Present Illness HPI Narrative: pt with upper abd pain progressive over the last few days with nausea - no fever has hx of multiple abd surg MD complaint: nausea, abdominal pain Onset (ago): day(s) Associated Abdominal Pain: Yes Location of pain: epigastric Associated symptoms: denies other symptoms - Related Data Home Medications Medication Instructions Recorded Confirmed Ropinirole HCl 1 mg PO HS 01/01/18 11/21/18 Spironolactone 25 mg PO DAILY 08/01/18 11/21/18 Previous Rx's Medication Instructions Recorded pantoprazole 40 mg tablet,delayed 40 mg PO DAILY #90 tab 05/09/18 release losartan 25 mg tablet 25 mg PO DAILY #30 tab 07/02/18 duloxetine 30 mg capsule,delayed 30 mg PO DAILY #90 cap 07/04/18 release promethazine 25 mg tablet 25 mg PO TID PRN #30 tab 07/10/18 Ondansetron HCl [Zofran 8mg Tab] 8 mg PO TID #10 tab 09/29/18 clonazepam 0.5 mg tablet 0.5 mg PO TID #90 tab 10/03/18 hydrocodone 5 mg-acetaminophen 325 1 tab PO QID PRN #120 tab 10/03/18 mg tablet tramadol 50 mg tablet 50 mg PO BID #60 tab 10/03/18 ondansetron HCl 4 mg tablet 4 mg PO TID PRN #30 tab 10/09/18 loratadine 10 mg tablet 10 mg PO DAILY #90 tab 10/24/18 gabapentin 600 mg tablet 600 mg PO TID #90 tab 10/31/18 aspirin 81 mg tablet,delayed 81 mg PO DAILY #100 tab 11/20/18 release metoprolol succinate ER 25 mg 25 mg PO DAILY #90 tab 11/20/18 tablet,extended release 24 hr Allergies Allergy/AdvReac Type Severity Reaction Status Date / Time codeine [CODEINE] Allergy Unknown Verified 11/07/18 15:59 ibuprofen [IBUPROFEN] Allergy Unknown Verified 11/07/18 15:59 Iodinated Contrast Media - Allergy Unknown Verified 11/07/18 15:59 Oral and [IODINATED CONTRAST MEDIA - IV DYE] morphine [MORPHINE] Allergy Unknown Verified 11/07/18 15:59 prednisone [PREDNISONE] Allergy Unknown Verified 11/07/18 15:59 prochlorperazine Allergy Unknown Verified 11/07/18 15:59 [PROCHLORPERAZINE] promethazine [From PHENERGAN] Allergy Unknown Verified 11/07/18 15:59 cephalexin [From Keflex] Allergy Verified 11/07/18 15:59 lactose AdvReac Intermediate Abdominal Verified 11/07/18 15:59 Pain [facility] History - Hepatitis A Screen Drug use history?: No High risk sexual behaviors?: No History of sexually transmitted infection?: No Currently employed?: No Childcare worker?: No Do you have indoor plumbing?: Yes Do you have electricity?: Yes Attestation statement:: This patient has been screened for Hepatitis A risk factors. I have reviewed the patient's past medical history: Yes Medical History: Reports:: Anxiety, Congestive Heart Failure, Depression, Gastroesophageal Reflux Disease(GERD), Hyperlipidemia, Hypertension Denies:: Cancer, Diabetes Mellitus Type 1, Diabetes Mellitus Type 2, Internal Pacemaker, Lung Disease, MRSA, Seizures Other Medical History: Reports: Anemia, Arthritis, Hypothyroidism, Other Comment: Seen in the emergency department here on 12/05/17, diagnosed with hepatitis, bronchitis, and dehydration. Normal cardiac cath on 11/27/17. Other Surgeries: Yes: Appendectomy, Cholecystectomy, Hysterectomy-Total, Sinus Surgery, Other. No: Pacemaker Amputation: No Fractures: No Comment: Colon - Social History Smoking Status: Never smoker Alcohol Intake: never Alcohol Intake Frequency:: other Substance Use Type: denies use Occupational Status: employed Housing: apartment Household Members: significant other - Psychiatric History Pschychiatric History:: Reports:: Anxiety, Depression Family Hx:: Coronary Artery Disease, Heart Attack ROS Obtained: Yes All systems reviewed & no additional complaints - Constitutional Constitutional: Denies fever(s) - Eyes Eyes: Denies change in vision - ENT Ears, Nose, Mouth, and Throat: Denies sore throat - Cardiovascular Cardiovascular: Denies chest pain - Respiratory Respiratory: No cough - Gastrointestinal Gastrointestingal: Reports: as per HPI, abdominal pain, nausea. Denies: diarrhea - Genitourinary Female Genitourinary: Denies hematuria - Musculoskeletal Musculoskeletal: Denies joint pain - Integumentary/Breasts Skin/Breast: Denies rash - Neurologic Neurologic: Denies seizure-like activity Physical Exam - General General appearance: alert - Head Head exam: atraumatic - Eye Eye exam: Present: PERRL, EOMI. Absent: scleral icterus - ENT ENT exam: Present: mucous membranes dry - Neck Neck exam: Present: trachea midline - Respiratory Respiratory exam: Absent: respiratory distress - Cardiovascular Cardiovascular exam: Present: regular rate, systolic murmur - Abdominal Exam Abdominal exam: Present: soft, tenderness Abdominal tenderness: Present: epigastrium, moderate - Extremities Exam Extremities exam: Present: full ROM - Neurological Exam Neurological exam: Present: alert, oriented X3, CN II-XII intact - Psychiatric Psychiatric exam: Present: normal affect - Skin Skin exam: Absent: rash
[2018-11-22 04:15] LABS: Basophils % 0.5 % (0.1-2.0); Eosinophils # 0.3 K/mm3 (0.0-0.4); Eosinophils % 5.2 % (0.1-12.0); Hematocrit 29.2 % (37.0-47.0); Lymphocytes % 50.8 % (10-50); Mean Corpuscular HGB Conc 32.7 g/dL (31.8-35.4); Mean Corpuscular Hemoglobin 30.9 pg (27.0-31.2); Mean Corpuscular Volume 94.3 fl (81-99); Monocytes # 0.4 K/mm3 (0.1-1.0); Monocytes % 6.9 % (1.7-9.3); Neutrophils # 2.2 K/mm3 (1.8-7.8); Neutrophils % 36.7 % (37.0-80.0); Platelet Count 209 K/mm3 (142-424); White Blood Count 5.9 K/mm3 (4.8-10.8)
[2018-11-22 04:25] LABS: Anion Gap 11.4 mEq/L (5-15); Calcium 8.4 mg/dL (8.5-10.1); Phosphorous 3.9 mg/dL (2.4-4.9); Potassium 4.4 mmoL/L (3.5-5.1)
[2018-11-22 04:30] LABS: Hemoglobin 9.6 g/dL (12.2-16.2)
[2018-11-22 06:05] LABS: Eosinophils % 5 % (0-3); Lymphocytes % 48 % (10-50); Monocytes % 5 % (2-9); Neutrophils % 40 % (42-76); Total Cells Counted 100
[2018-11-22 06:06] LABS: RBC Morphology Normal
--- NOTE | 2018-11-22 11:25 | Pharmacy Consult Notes ---
[facility] Pharmacy VTE Monitoring - Patient Demographics Admission date: 11/22/18 Report Date: 11/22/18 Time: 11:24 Allergies/Adverse Reactions: Patient Allergies codeine [CODEINE] Allergy (Unknown, Verified 11/07/18 15:59) ibuprofen [IBUPROFEN] Allergy (Unknown, Verified 11/07/18 15:59) Iodinated Contrast Media - Oral and [IODINATED CONTRAST MEDIA - IV DYE] Allergy (Unknown, Verified 11/07/18 15:59) morphine [MORPHINE] Allergy (Unknown, Verified 11/07/18 15:59) prednisone [PREDNISONE] Allergy (Unknown, Verified 11/07/18 15:59) prochlorperazine [PROCHLORPERAZINE] Allergy (Unknown, Verified 11/07/18 15:59) promethazine [From PHENERGAN] Allergy (Unknown, Verified 11/07/18 15:59) cephalexin [From Keflex] Allergy (Verified 11/07/18 15:59) lactose Adverse Reaction (Intermediate, Verified 11/07/18 15:59) Abdominal Pain Height: 1.63 m Weight: 71.469 kg Patient Problems: Current Active Problems Acute renal failure (Acute) Abdominal pain (Acute) - VTE Risk Labs: VTE Related Lab Results Hgb 9.6 g/dL (12.2-16.2) L D 11/22/18 04:00 Hct 29.2 % (37.0-47.0) L 11/22/18 04:00 Plt Count 209 K/mm3 (142-424) 11/22/18 04:00 BUN 32 mg/dL (7-18) H 11/22/18 04:00 Creatinine 1.78 mg/dL (0.55-1.02) H 11/22/18 04:00 Estimated Creat Clear 36 mL/min (50-200) 11/22/18 04:00 Was VTE Risk Assessment Performed: Yes VTE Score: 6 VTE Risk Level: Moderate Risk Clinical Trial Participant: No - Prophylaxis VTE Prophylaxis Ordered?: Yes Types of VTE Prophylaxis: TEDS Knee High
--- NOTE | 2018-11-22 12:20 | Consult Report ---
Addendum entered and electronically signed by Cori Barrera APRN 11/22/18 14:46: Echo shows normal EF and diastolic parameters. Original Note: History of Present Illness Consult date: 11/22/18 Requesting physician: Reuben Fong Chief complaint: Abdominal pain and renal failure Additional Medical History:: 1. Normal coronary arteries 2. Hypertension 3. Hyperlipidemia History of present illness: This is a 63-year-old white female who was admitted to the hospital with abdominal pain. The patient was found to be in acute renal failure with a creatinine of 2.18. The patient had been having abdominal pain with nausea for the last several days. The patient states that the abdominal pain was across her upper abdominal area. She has had no fevers. The patient does have a history of having multiple abdominal surgeries. She states today that she still feels a little bit nauseated and she is still having some of the abdominal pain especially in the epigastric region. She denies any chest pain or pressure. She states that she does get short of breath at times. She denies any fever, chills, vomiting, diarrhea, PND or orthopnea. The patient's creatinine was elevated on admission at 2.18. Her Losartan, Lasix and Aldactone were all stopped and her creatinine is down to 1.78 today. [facility] History I have reviewed the patient's past medical history: Yes Medical History: Reports:: Anxiety, Congestive Heart Failure, Depression, Gastroesophageal Reflux Disease(GERD), Hyperlipidemia, Hypertension Denies:: Cancer, Diabetes Mellitus Type 1, Diabetes Mellitus Type 2, Internal Pacemaker, Lung Disease, MRSA, Seizures *Have you ever received a pneumonia vaccine?: Yes *Have you received a flu vaccine this season?: Yes Other Medical History: Reports: Anemia, Arthritis, Hypothyroidism, Other Other Surgeries: Yes: Appendectomy, Cholecystectomy, Hysterectomy-Total, Sinus Surgery, Other. No: Pacemaker Amputation: No Fractures: No - *Social History Educational Level: Completed High School Smoking Status: Never smoker Alcohol Intake: never Alcohol Intake Frequency:: other Substance Use Type: denies use *Occupational Status:: employed, disabled Housing: apartment Household Members: other *Travel in the last 8 weeks: Inside the [place] - Psychiatric History Expresses thoughts of harming self/others: None Suicide Plan Description: No Plan Pschychiatric History:: Reports:: Anxiety, Depression Family Hx:: Coronary Artery Disease, Heart Attack Meds Home Medications Medication Instructions Recorded Confirmed Type Ropinirole HCl 1 mg PO HS 01/01/18 11/22/18 History pantoprazole 40 mg tablet,delayed 40 mg PO DAILY #90 tab 05/09/18 11/22/18 Rx release losartan 25 mg tablet 25 mg PO DAILY #30 tab 07/02/18 11/22/18 Rx duloxetine 30 mg capsule,delayed 30 mg PO DAILY #90 cap 07/04/18 11/22/18 Rx release Spironolactone 25 mg PO DAILY 08/01/18 11/22/18 History clonazepam 0.5 mg tablet 0.5 mg PO TID #90 tab 10/03/18 11/22/18 Rx hydrocodone 5 mg-acetaminophen 325 1 tab PO QID PRN #120 tab 10/03/18 11/22/18 Rx mg tablet tramadol 50 mg tablet 50 mg PO BID #60 tab 10/03/18 11/22/18 Rx ondansetron HCl 4 mg tablet 4 mg PO TID PRN #30 tab 10/09/18 11/22/18 Rx loratadine 10 mg tablet 10 mg PO DAILY #90 tab 10/24/18 11/22/18 Rx gabapentin 600 mg tablet 600 mg PO TID #90 tab 10/31/18 11/22/18 Rx metoprolol succinate ER 25 mg 25 mg PO DAILY #90 tab 11/20/18 11/22/18 Rx tablet,extended release 24 hr Aspirin [Aspir-Low] 81 mg PO DAILY 11/22/18 11/22/18 History Allergies Allergy/AdvReac Type Severity Reaction Status Date / Time codeine [CODEINE] Allergy Unknown Verified 11/07/18 15:59 ibuprofen [IBUPROFEN] Allergy Unknown Verified 11/07/18 15:59 Iodinated Contrast Media - Allergy Unknown Verified 11/07/18 15:59 Oral and [IODINATED CONTRAST MEDIA - IV DYE] morphine [MORPHINE] Allergy Unknown Verified 11/07/18 15:59 prednisone [PREDNISONE] Allergy Unknown Verified 11/07/18 15:59 prochlorperazine Allergy Unknown Verified 11/07/18 15:59 [PROCHLORPERAZINE] promethazine [From PHENERGAN] Allergy Unknown Verified 11/07/18 15:59 cephalexin [From Keflex] Allergy Verified 11/07/18 15:59 lactose AdvReac Intermediate Abdominal Verified 11/07/18 15:59 Pain Review of Systems - Review of Systems Review of systems:: pertinent systems reviewed and negative unless documented below - *Respiratory Reports shortness of breath - *Gastrointestinal Reports abdominal pain, Reports nausea - *Neurologic Denies seizure-like activity Exam Vital signs and Labs for Last 24 Hours: Temp Pulse Resp BP Pulse Ox 98.1 F 53 L 15 115/59 L 100 11/22/18 11:50 11/22/18 11:50 11/22/18 11:50 11/22/18 11:50 11/22/18 11:50 Laboratory Results - last 24 hr 11/21/18 18:30: Urine Color Yellow, Urine Appearance Clear, Urine pH 5.5, Ur Specific [place] >= 1.030, Urine Protein Negative, Urine Glucose (UA) Negative, Urine Ketones Trace, Urine Blood Negative, Urine Nitrate Negative, Urine Bilirubin Negative, Urine Urobilinogen 0.2, Ur Leukocyte Esterase Negative, Urine RBC None, Urine WBC 3-5, Ur Squamous Epith Cells 10-20, Urine Bacteria 1+, Urine Mucus 1+ 11/21/18 18:55: WBC 7.9, RBC 3.70 L, Hgb 11.3 L, Hct 34.3 L, MCV 92.8, MCH 30.4, MCHC 32.8, RDW 12.9, Plt Count 275, MPV 9.9, Neut % (Auto) 45.3, Lymph % (Auto) 43.2, [place] % (Auto) 6.0, Eos % (Auto) 4.9, Baso % (Auto) 0.6, Neut # (Auto) 3.6, Lymph # (Auto) 3.4, [place] # (Auto) 0.5, Eos # (Auto) 0.4, Baso # (Auto) 0.1 11/21/18 18:55: Sodium 141, Potassium 4.7, Chloride 105, Carbon Dioxide 28, Anion Gap 12.7, BUN 34 H, Creatinine 2.18 H, Estimated Creat Clear 29, Estimated GFR 23 L, Est GFR ( Amer) 28 L, Glucose 88, Calcium 9.2, Total Bilirubin 0.2, AST 15, ALT 18, Alkaline Phosphatase 76, Total Protein 8.1, Albumin 4.2, Globulin 3.9 H, Albumin/Globulin Ratio 1.1, Amylase 28, Lipase 200 11/22/18 00:50: Troponin I < 0.02 11/22/18 04:00: Troponin I < 0.02 11/22/18 04:00: WBC 5.9 D, RBC 3.10 L, Hgb 9.6 L D, Hct 29.2 L, MCV 94.3, MCH 30.9, MCHC 32.7, RDW 13.0, Plt Count 209, MPV 11.0 H, Neut % (Auto) 36.7 L, Lymph % (Auto) 50.8 H, [place] % (Auto) 6.9, Eos % (Auto) 5.2, Baso % (Auto) 0.5, Neut # (Auto) 2.2, Lymph # (Auto) 3.0, [place] # (Auto) 0.4, Eos # (Auto) 0.3, Baso # (Auto) 0.0, Total Counted 100, Neutrophils % (Manual) 40 L, Lymphocytes % (Manual) 48, Atypical Lymphs % 2.0, Monocytes % (Manual) 5, Eosinophils % (Manual) 5 H, Platelet Estimate Normal, RBC Morphology Normal 11/22/18 04:00: Sodium 144, Potassium 4.4, Chloride 110 H, Carbon Dioxide 27, Anion Gap 11.4, BUN 32 H, Creatinine 1.78 H, Estimated Creat Clear 36, Estimated GFR 29 L, Est GFR ( Amer) 35 L D, Glucose 93, Calcium 8.4 L, Phosphorus 3.9, Magnesium 1.9 I & O for Last 24 hours: Intake & Output 11/19/18 11/20/18 11/21/18 11/22/18 23:59 23:59 23:59 23:59 Intake Total 1000 / 1000 618 / 618 Output Total 500 / 500 Balance 1000 / 1000 118 / 118 Weight 156 lb 14.4 oz 157 lb 9 oz - *Routine HEENT Exam Head: Present: normocephalic, atraumatic Eye: Present: EOMI, PERRL ENT: Present: mucous membranes moist - *Routine Neck Exam Present: supple, full ROM, carotid bruit. Absent: JVD, lymphadenopathy - *Routine Respiratory Exam Present: CTA bilaterally - *Routine Cardiovascular Exam Present: RRR, Normal S1, Normal S2. Absent: murmur, gallop - *Routine Abdominal Exam Present: soft, normoactive bowel sounds. Absent: tenderness - *Routine Extremities Exam Present: full ROM, pulses intact, normal capillary refill. Absent: cyanosis, clubbing, edema - *Routine Skin Exam Present: intact, warm. Absent: erythema, rash - *Routine Neurological Exam Present: alert, oriented X3, CN II-XII intact. Absent: sensory deficit, motor deficit - Routine Psychiatric Exam Present: normal affect, normal thought process - Detailed Eye Exam Eyelids: Left normal inspection Assessment and Plan (1) Abdominal pain Current visit: Yes Status: Acute Category: Medical Code(s): R10.9 - Unspecified abdominal pain (2) Nausea Current visit: Yes Status: Acute Category: Medical Code(s): R11.0 - Nausea (3) Hyperlipidemia Current visit: Yes Status: Chronic Category: Medical Code(s): E78.5 - Hyperlipidemia, unspecified (4) Normal coronary arteries Current visit: Yes Status: Chronic Category: Medical Code(s): Z03.89 - Encounter for observation for other suspected diseases and conditions ruled out (5) Acute renal failure Current visit: Yes Status: Acute Qualifiers: Acute renal failure type: unspecified Qualified Code(s): N17.9 - Acute kidney failure, unspecified Category: Medical Code(s): N17.9 - Acute kidney failure, unspecified (6) HTN (hypertension) Current visit: No Status: Chronic Qualifiers: Hypertension type: essential hypertension Qualified Code(s): I10 - Essential (primary) hypertension Category: Medical Code(s): I10 - Essential (primary) hypertension - Assessment and plan all Dx Assessment and Plan for all problems:: Plan: 1. The patient was admitted with abdominal pain and nausea. Her abdominal pain is being worked up by her primary care provider. 2. The patient was in acute renal failure on admission. Her creatinine was up to 2.18. Her Losartan, Lasix and Aldactone were all stopped. Her creatinine is down to 1.78. Her acute renal failure could very likely be the cause of her abdominal pain and nausea. We will continue to hold the Losartan, Lasix and Aldactone at this time. 3. Her blood pressure is well controlled today. We will continue her on Toprol XL 25 milligrams daily only for blood pressure support at this time. 4. Her LDL goal is less than 100. 5. The patient does have a history of normal coronary arteries. 6. The patient does have hypertensive heart disease. We will get an echocardiogram to evaluate her LV function. 7. We will continue to follow her renal function closely, even on an outpatient basis. 8. No further recommendations at this time from a cardiovascular standpoint. The patient is stable from a cardiovascular standpoint for discharge home at the discretion of her primary care provider. She will need to follow-up in our outpatient cardiology clinic with Dr. Dennis in 1-2 weeks. Thank you for the opportunity to help participate in the care of this patient.
--- NOTE | 2018-11-22 14:17 | H&P/Discharge Summary ---
General - General Admission date:: 11/21/18 Discharge date: 11/22/18 *Admission Date: 11/22/18 *Chief complaint: abd pain *History of present illness: 63 yr old female presents to ed with c/o pt with upper abd pain progressive over the last few days with nausea - no fever. pt admitted for renal failure and cardiology consult. [facility] History I have reviewed the patient's past medical history: Yes Medical History: Reports:: Anxiety, Congestive Heart Failure, Depression, Gastroesophageal Reflux Disease(GERD), Hyperlipidemia, Hypertension Denies:: Cancer, Diabetes Mellitus Type 1, Diabetes Mellitus Type 2, Internal Pacemaker, Lung Disease, MRSA, Seizures *Have you ever received a pneumonia vaccine?: Yes *Have you received a flu vaccine this season?: Yes Other Medical History: Reports: Anemia, Arthritis, Hypothyroidism, Other Other Surgeries: Yes: Appendectomy, Cholecystectomy, Hysterectomy-Total, Sinus Surgery, Other. No: Pacemaker Amputation: No Fractures: No - *Social History Educational Level: Completed High School Smoking Status: Never smoker Alcohol Intake: never Alcohol Intake Frequency:: other Substance Use Type: denies use *Occupational Status:: employed, disabled Housing: apartment Household Members: other *Travel in the last 8 weeks: Inside the [place] - Psychiatric History Expresses thoughts of harming self/others: None Suicide Plan Description: No Plan Pschychiatric History:: Reports:: Anxiety, Depression Family Hx:: Coronary Artery Disease, Heart Attack Review of Systems - Constitutional Denies fever(s) - Eyes Denies change in vision - ENT Denies nose pain - *Cardiovascular Denies chest pain with activity - *Respiratory Denies cough - *Gastrointestinal Reports abdominal pain, Denies incontinent of stools - *Genitourinary Denies abnormal vaginal bleeding - *Musculoskeletal Denies loss of height, Denies body aches - Integumentary/Breasts Denies rash - *Neurologic Denies seizure-like activity - Psychiatric Denies irritability - Endocrine Denies flushing - Hematologic/Lymphatic Denies enlarged lymph nodes Exam Vital signs and Labs for Last 24 Hours: Temp Pulse Resp BP Pulse Ox 98.1 F 45 L 15 115/59 L 100 11/22/18 11:50 11/22/18 12:00 11/22/18 11:50 11/22/18 11:50 11/22/18 11:50 Laboratory Results - last 24 hr 11/21/18 18:30: Urine Color Yellow, Urine Appearance Clear, Urine pH 5.5, Ur Specific [place] >= 1.030, Urine Protein Negative, Urine Glucose (UA) Negative, Urine Ketones Trace, Urine Blood Negative, Urine Nitrate Negative, Urine Bilirubin Negative, Urine Urobilinogen 0.2, Ur Leukocyte Esterase Negative, Urine RBC None, Urine WBC 3-5, Ur Squamous Epith Cells 10-20, Urine Bacteria 1+, Urine Mucus 1+ 11/21/18 18:55: WBC 7.9, RBC 3.70 L, Hgb 11.3 L, Hct 34.3 L, MCV 92.8, MCH 30.4, MCHC 32.8, RDW 12.9, Plt Count 275, MPV 9.9, Neut % (Auto) 45.3, Lymph % (Auto) 43.2, [place] % (Auto) 6.0, Eos % (Auto) 4.9, Baso % (Auto) 0.6, Neut # (Auto) 3.6, Lymph # (Auto) 3.4, [place] # (Auto) 0.5, Eos # (Auto) 0.4, Baso # (Auto) 0.1 11/21/18 18:55: Sodium 141, Potassium 4.7, Chloride 105, Carbon Dioxide 28, Anion Gap 12.7, BUN 34 H, Creatinine 2.18 H, Estimated Creat Clear 29, Estimated GFR 23 L, Est GFR ( Amer) 28 L, Glucose 88, Calcium 9.2, Total Bilirubin 0.2, AST 15, ALT 18, Alkaline Phosphatase 76, Total Protein 8.1, Albumin 4.2, Globulin 3.9 H, Albumin/Globulin Ratio 1.1, Amylase 28, Lipase 200 11/22/18 00:50: Troponin I < 0.02 11/22/18 04:00: Troponin I < 0.02 11/22/18 04:00: WBC 5.9 D, RBC 3.10 L, Hgb 9.6 L D, Hct 29.2 L, MCV 94.3, MCH 30.9, MCHC 32.7, RDW 13.0, Plt Count 209, MPV 11.0 H, Neut % (Auto) 36.7 L, Lymph % (Auto) 50.8 H, [place] % (Auto) 6.9, Eos % (Auto) 5.2, Baso % (Auto) 0.5, Neut # (Auto) 2.2, Lymph # (Auto) 3.0, [place] # (Auto) 0.4, Eos # (Auto) 0.3, Baso # (Auto) 0.0, Total Counted 100, Neutrophils % (Manual) 40 L, Lymphocytes % (Manual) 48, Atypical Lymphs % 2.0, Monocytes % (Manual) 5, Eosinophils % (Manual) 5 H, Platelet Estimate Normal, RBC Morphology Normal 11/22/18 04:00: Sodium 144, Potassium 4.4, Chloride 110 H, Carbon Dioxide 27, Anion Gap 11.4, BUN 32 H, Creatinine 1.78 H, Estimated Creat Clear 36, Estimated GFR 29 L, Est GFR ( Amer) 35 L D, Glucose 93, Calcium 8.4 L, Phosphorus 3.9, Magnesium 1.9 I & O for Last 24 hours: Intake & Output 11/20/18 11/21/18 11/22/18 11/23/18 11:59 11:59 11:59 11:59 Intake Total 1618 / 1618 Output Total 500 / 500 200 / 200 Balance 1118 / 1118 -200 / -200 Weight 157 lb 9 oz - Constitutional no acute distress - *Routine HEENT Exam Head: Present: normocephalic Eye: Present: EOMI, PERRL ENT: Present: mucous membranes moist - *Routine Neck Exam Present: supple. Absent: lymphadenopathy - *Routine Respiratory Exam Present: CTA bilaterally - *Routine Cardiovascular Exam Present: RRR - *Routine Abdominal Exam Present: soft, normoactive bowel sounds. Absent: tenderness - *Routine Extremities Exam Absent: cyanosis, clubbing, edema - *Routine Skin Exam Present: warm. Absent: rash - *Routine Neurological Exam Present: alert, oriented X3 - Routine Psychiatric Exam Present: normal affect Hospital Course Hospital Course: ct abd;IMPRESSION: No acute findings cardiology consult- per note:plan: 1. The patient was admitted with abdominal pain and nausea. Her abdominal pain is being worked up by her primary care provider. 2. The patient was in acute renal failure on admission. Her creatinine was up to 2.18. Her Losartan, Lasix and Aldactone were all stopped. Her creatinine is down to 1.78. Her acute renal failure could very likely be the cause of her abdominal pain and nausea. We will continue to hold the Losartan, Lasix and Aldactone at this time. 3. Her blood pressure is well controlled today. We will continue her on Toprol XL 25 milligrams daily only for blood pressure support at this time. 4. Her LDL goal is less than 100. 5. The patient does have a history of normal coronary arteries. 6. The patient does have hypertensive heart disease. We will get an echocardiogram to evaluate her LV function. 7. We will continue to follow her renal function closely, even on an outpatient basis. 8. No further recommendations at this time from a cardiovascular standpoint. The patient is stable from a cardiovascular standpoint for discharge home at the discretion of her primary care provider. She will need to follow-up in our outpatient cardiology clinic with Dr. Dennis in 1-2 weeks. Results Labs on day of discharge: Labs from last 24 hours 11/22/18 11/22/18 11/22/18 04:00 04:00 04:00 WBC 5.9 D RBC 3.10 L Hgb 9.6 L D Hct 29.2 L MCV 94.3 MCH 30.9 MCHC 32.7 RDW 13.0 Plt Count 209 MPV 11.0 H Neut % (Auto) 36.7 L Lymph % (Auto) 50.8 H [place] % (Auto) 6.9 Eos % (Auto) 5.2 Baso % (Auto) 0.5 Neut # (Auto) 2.2 Lymph # (Auto) 3.0 [place] # (Auto) 0.4 Eos # (Auto) 0.3 Baso # (Auto) 0.0 Total Counted 100 Neutrophils % (Manual) 40 L Lymphocytes % (Manual) 48 Atypical Lymphs % 2.0 Monocytes % (Manual) 5 Eosinophils % (Manual) 5 H Platelet Estimate Normal RBC Morphology Normal Sodium 144 Potassium 4.4 Chloride 110 H Carbon Dioxide 27 Anion Gap 11.4 BUN 32 H Creatinine 1.78 H Estimated Creat Clear 36 Estimated GFR 29 L Est GFR ( Amer) 35 L D Glucose 93 Calcium 8.4 L Phosphorus 3.9 Magnesium 1.9 Total Bilirubin AST ALT Alkaline Phosphatase Troponin I < 0.02 Total Protein Albumin Globulin Albumin/Globulin Ratio Amylase Lipase Urine Color Urine Appearance Urine pH Ur Specific [place] Urine Protein Urine Glucose (UA) Urine Ketones Urine Blood Urine Nitrate Urine Bilirubin Urine Urobilinogen Ur Leukocyte Esterase Urine RBC Urine WBC Ur Squamous Epith Cells Urine Bacteria Urine Mucus 11/22/18 11/21/18 11/21/18 00:50 18:55 18:55 WBC 7.9 RBC 3.70 L Hgb 11.3 L Hct 34.3 L MCV 92.8 MCH 30.4 MCHC 32.8 RDW 12.9 Plt Count 275 MPV 9.9 Neut % (Auto) 45.3 Lymph % (Auto) 43.2 [place] % (Auto) 6.0 Eos % (Auto) 4.9 Baso % (Auto) 0.6 Neut # (Auto) 3.6 Lymph # (Auto) 3.4 [place] # (Auto) 0.5 Eos # (Auto) 0.4 Baso # (Auto) 0.1 Total Counted Neutrophils % (Manual) Lymphocytes % (Manual) Atypical Lymphs % Monocytes % (Manual) Eosinophils % (Manual) Platelet Estimate RBC Morphology Sodium 141 Potassium 4.7 Chloride 105 Carbon Dioxide 28 Anion Gap 12.7 BUN 34 H Creatinine 2.18 H Estimated Creat Clear 29 Estimated GFR 23 L Est GFR ( Amer) 28 L Glucose 88 Calcium 9.2 Phosphorus Magnesium Total Bilirubin 0.2 AST 15 ALT 18 Alkaline Phosphatase 76 Troponin I < 0.02 Total Protein 8.1 Albumin 4.2 Globulin 3.9 H Albumin/Globulin Ratio 1.1 Amylase 28 Lipase 200 Urine Color Urine Appearance Urine pH Ur Specific [place] Urine Protein Urine Glucose (UA) Urine Ketones Urine Blood Urine Nitrate Urine Bilirubin Urine Urobilinogen Ur Leukocyte Esterase Urine RBC Urine WBC Ur Squamous Epith Cells Urine Bacteria Urine Mucus 11/21/18 18:30 WBC RBC Hgb Hct MCV MCH MCHC RDW Plt Count MPV Neut % (Auto) Lymph % (Auto) [place] % (Auto) Eos % (Auto) Baso % (Auto) Neut # (Auto) Lymph # (Auto) [place] # (Auto) Eos # (Auto) Baso # (Auto) Total Counted Neutrophils % (Manual) Lymphocytes % (Manual) Atypical Lymphs % Monocytes % (Manual) Eosinophils % (Manual) Platelet Estimate RBC Morphology Sodium Potassium Chloride Carbon Dioxide Anion Gap BUN Creatinine Estimated Creat Clear Estimated GFR Est GFR ( Amer) Glucose Calcium Phosphorus Magnesium Total Bilirubin AST ALT Alkaline Phosphatase Troponin I Total Protein Albumin Globulin Albumin/Globulin Ratio Amylase Lipase Urine Color Yellow Urine Appearance Clear Urine pH 5.5 Ur Specific [place] >= 1.030 Urine Protein Negative Urine Glucose (UA) Negative Urine Ketones Trace Urine Blood Negative Urine Nitrate Negative Urine Bilirubin Negative Urine Urobilinogen 0.2 Ur Leukocyte Esterase Negative Urine RBC None Urine WBC 3-5 Ur Squamous Epith Cells 10-20 Urine Bacteria 1+ Urine Mucus 1+ - Additional Comments rounded with kevin all orders per kevin DS: Diagnosis - Discharge Diagnosis (1) Abdominal pain Status: Acute (2) Nausea Status: Acute (3) Hyperlipidemia Status: Chronic (4) Normal coronary arteries Status: Chronic (5) Acute renal failure Status: Acute (6) HTN (hypertension) Status: Chronic Discharge Medications - Medications for Discharge Home Medication List at Discharge: No Action losartan 25 mg tablet 25 mg PO DAILY #30 tab duloxetine 30 mg capsule,delayed release 30 mg PO DAILY #90 cap hydrocodone 5 mg-acetaminophen 325 mg tablet 1 tab PO QID PRN #120 tab PRN Reason: pain clonazepam 0.5 mg tablet 0.5 mg PO TID #90 tab ondansetron HCl 4 mg tablet 4 mg PO TID PRN #30 tab PRN Reason: nausea and vomiting metoprolol succinate ER 25 mg tablet,extended release 24 hr 25 mg PO DAILY #90 tab pantoprazole 40 mg tablet,delayed release 40 mg PO DAILY #90 tab tramadol 50 mg tablet 50 mg PO BID #60 tab loratadine 10 mg tablet 10 mg PO DAILY #90 tab gabapentin 600 mg tablet 600 mg PO TID #90 tab Ropinirole HCl 1 mg PO HS Spironolactone 25 mg PO DAILY Aspirin [Aspir-Low] 81 mg PO DAILY Disposition Disposition: Home, Self-Care
--- NOTE | 2018-11-22 16:29 | Cardiology Report ---
PROCEDURE: 2-D M-mode and color Doppler study INDICATIONS FOR THE TEST: Chest pain COPD Heart Murmur Tobacco Smoking Palpitations Fatigue Syncope Edema Hypertension Diabetes Mellitus Rheumatic Fever SOBXDOE Obesity Hyperlipidemia Family History HD Additional History PATIENT INFORMATION HEIGHT: 64 WEIGHT:157 GENDER: Female B/P:110/70 2-D/M-MODE INTERPRETATION: 2-D MEASUREMENTS OBSERVED VALUES IN CMS Right Ventricular Dimension (RVDd) 3.0 Interventricular Septum (Thickness)(IVsd) .9 Left Ventricular Internal Dimensions(LVIDd) 4.4 Left Ventricular Posterior Wall (Thickness)(LVPWd) .8 Aortic Root 2.8 Aortic Cusp Separation 1.8 Left Atrial Dimensions (LAD) 3.3 2D 1. Left atrium is normal size, left ventricle is normal size, there is no concentric left ventricular hypertrophy, visually estimated ejection fraction 55% with no regional wall motion abnormality. 2. The right atrium and right ventricle are mildly enlarged with normal contractility. 3. The aortic valve is minimally thickened and fibrosed. 4. The mitral and tricuspid valvular grossly normal. 5. The pulmonic valve is poorly visualized. 6. No significant pericardial effusion noted. DOPPLER INTERROGATION: Doppler interrogation of the aortic, mitral and tricuspid valvular presence of mild mitral and tricuspid regurgitation, tricuspid regurgitation jet velocity is inadequate for calculation of the right ventricular systolic pressure, diastolic parameters are within normal range. Inferior vena cava is normal size with normal inspiratory collapse. CONCLUSION: 1. Normal left ventricular size, preserved left ventricular systolic function, visually estimated ejection fraction 55% with no regional wall motion abnormality, diastolic parameters are within normal range. 2. Mildly enlarged right ventricle with normal contractility. 3. Mild mitral and tricuspid regurgitation, inferior vena cava is normal size with normal inspiratory collapse. 4. No significant pericardial effusion noted.
== END 2018-11-22 16:21 | disposition home or self-care (01) ==
LOC: ER 18:19 → 2ND 18:19
PROVIDERS: ADMIT Emergency Medicine; ATTEND Emergency Medicine
CPT/HCPCS: 36415; 74176; 74177; 80048; 80053; 81001; 82150; 83690; 83735; 84100; 84484; 85007; 85025; 93306; 96365; 96375; 99285; G0378; J2405

== ENCOUNTER → 2018-11-28 19:20 | Outpatient (CLI) | payer MEDICAID, SELFPAY ==
[2018-11-28 19:41] LABS: Anion Gap 11.1 mEq/L (5-15); Blood Urea Nitrogen 21 mg/dL (7-18); Calcium 9.1 mg/dL (8.5-10.1); Carbon Dioxide 30 mmol/L (21.0-32.0); Chloride 105 mmol/L (98-107); Creatinine,Serum 1.21 mg/dL (0.55-1.02); Estimated Glomerular Filt Rate 45 ml/min (>60); GFR (African American) 54 ML/MIN (>60); Glucose 84 mg/dL (74-106); Potassium 5.1 mmoL/L (3.5-5.1); Sodium 141 mmol/L (136-145)
== END ==
PROVIDERS: Visit Provider Emergency Medicine
DX: N17.9 Acute kidney failure, unspecified (principal)
CPT/HCPCS: 80048

== ENCOUNTER → 2018-12-17 15:38 | Outpatient (CLI) | payer MEDICAID, SELFPAY ==
--- NOTE | 2018-12-17 15:56 | MR_ITS ---
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 FINDINGS: There is mild degree of motion artifact. No midline shift, mass effect, intracranial hemorrhage, or hydrocephalus is evident. The cerebellopontine angles, cerebellum, and brainstem are unremarkable. No evidence of acute infarction. There is mild atrophy. There is a cavum septum pellucidum as a normal variant. There are scattered periventricular and subcortical T2 white matter hyperintensities which may be related to ischemic gliotic change from microvascular disease. The pituitary, optic chiasm, corpus callosum, and craniocervical junction have an unremarkable appearance. No mastoid effusion or sinus air-fluid level. IMPRESSION: 1. No acute intracranial findings. 2. Atrophy with mild periventricular ischemic gliotic changes
[2018-12-17 18:28] LABS: Anion Gap 13.1 mEq/L (5-15); Blood Urea Nitrogen 17 mg/dL (7-18); Calcium 9.2 mg/dL (8.5-10.1); Carbon Dioxide 29 mmol/L (21.0-32.0); Chloride 103 mmol/L (98-107); Estimated Glomerular Filt Rate 45 ml/min (>60); GFR (African American) 55 ML/MIN (>60); Glucose 91 mg/dL (74-106); Potassium 4.1 mmoL/L (3.5-5.1); Sodium 141 mmol/L (136-145)
[2018-12-17 18:43] LABS: Thyroid Stimulating Hormone 0.42 uIU/ml (0.358-3.740)
[2018-12-19 13:56] LABS: Vitamin B12 439 pg/mL (232-1245)
== END ==
PROVIDERS: Emergency Medicine; Visit Provider Specialist
DX: G25.3 Myoclonus (principal); G25.9 Extrapyramidal and movement disorder, unspecified; R35.0 Frequency of micturition
CPT/HCPCS: 36415; 70551; 80048; 82607; 84443

== ENCOUNTER → 2019-01-08 11:01 | Outpatient (CLI) | payer MEDICAID, SELFPAY ==
[2019-01-08 11:11] LABS: Microscopic, Urine URINE MICROSCOPIC (MICROSCOPIC)
[2019-01-08 12:15] LABS: Appearance,Urine CLEAR (Clear); Bilirubin,Urine Negative (Negative); Blood, Urine Negative (Negative); Color,Urine YELLOW (Yellow); Glucose,Urine (UA) Negative (Negative); Ketones,Urine Negative (Negative); Leukocyte Esterase,Urine Negative (Negative); Nitrate,Urine Negative (Negative); PH,Urine 5.5 (5.0-8.5); Protein,Urine Negative (Negative); Specific Gravity, Urine >= 1.030 (1.005-1.030); Urobilinogen,Urine 0.2 EU/dl (0.2)
[2019-01-08 12:48] LABS: Squamous Epithelial Cell,Urine Occasional #/hpf (0-5)
[2019-01-08 12:49] LABS: Bacteria,Urine Trace /lpf; RBC,Urine Occasional #/hpf (0-3)
[2019-01-08 13:03] LABS: Anion Gap 15.2 mEq/L (5-15); Blood Urea Nitrogen 18 mg/dL (7-18); Calcium 8.7 mg/dL (8.5-10.1); Carbon Dioxide 25 mmol/L (21.0-32.0); Chloride 106 mmol/L (98-107); Creatinine,Serum 1.19 mg/dL (0.55-1.02); Estimated Glomerular Filt Rate 46 ml/min (>60); GFR (African American) 55 ML/MIN (>60); Glucose 83 mg/dL (74-106); Potassium 4.2 mmoL/L (3.5-5.1); Sodium 142 mmol/L (136-145)
== END ==
PROVIDERS: Visit Provider Emergency Medicine
DX: N17.9 Acute kidney failure, unspecified (principal)
CPT/HCPCS: 36415; 80048; 81001

== ENCOUNTER 2019-01-10 23:13 | Emergency (ER) | payer MEDICAID, SELFPAY ==
[2019-01-10 23:22] VITALS: BP 138/80; PULSE 60; RESP 20; TEMP 36.5; O2SAT 97; BMI 24.0
--- NOTE | 2019-01-10 23:27 | XR_ITS ---
XR chest 2V HISTORY: ITS.REASON: sinus pressure, cough congestion ORDERING PHYSICIAN: Reuben Fong MD PATIENT AGE: 63 years COMPARISON: 08/01/2018 FINDINGS: The cardiomediastinal silhouette and pulmonary vascularity are within normal limits. There are linear areas of increased density in the infrahilar region on both sides in the inferior aspect of the anterior clear space consistent with areas of scarring. No lobar consolidation or collapse. No acute bony findings. IMPRESSION: No change with no acute finding. Mild scarring
[2019-01-10 23:51] LABS: Strep Scrn Group A (Rapid) Negative (Negative)
--- NOTE | 2019-01-11 00:17 | XR_ITS ---
XR sinus min 3V COMPARISON: None HISTORY: Sinus pressure TECHNIQUE: 4 views FINDINGS: No sinus air-fluid level significant mucosal thickening or acute bony anomalies evident. The patient is edentulous IMPRESSION: No acute finding
--- NOTE | 2019-01-11 00:20 | HMH.EDURI ---
ED Disposition Clinical Impression: Sinusitis Qualifiers: Sinusitis location: unspecified location Chronicity: unspecified Qualified Code(s): J32.9 - Chronic sinusitis, unspecified Disposition: Home, Self-Care Condition on Discharge: Good Instructions: DI for Sinusitis Additional Instructions: fluids and see pcp next week or ent Prescriptions: Azithromycin [Zithromax 250mg tab] 250 mg PO DIRECTED #6 tab Referrals: Reuben Fong MD [Primary Care Provider] - - Critical Care Critical Care Time: No Attestation: On 01/10/19, the high probability of a clinically significant, sudden or life threatening deterioration of the following system(s) required my full and direct attention, intervention and personal management. The time I documented below is in addition to time spent performing reported procedures but includes the following listed in this critical care notation. Medical Decision Making - Medical Records Medical records reviewed: Yes: I reviewed the patient's medical records. - Grant Inquiry Pt receiving controlled substance: No Vital Signs: 01/10/19 23:22 Temperature 97.7 F Temperature Source Oral Pulse Rate [Right] 60 Respiratory Rate 20 Blood Pressure [Right Arm] 138/80 Blood Pressure Mean [Right Arm] 99 02 Sat by Pulse Oximetry 97 - Lab Data Lab results reviewed: Yes: I reviewed the patient's lab results. Lab Results 01/10/19 23:25: Influenza Type A Ag Negative, Influenza Type B Ag Negative 01/10/19 23:25: Group A Strep Rapid Negative 01/11/19 00:20: WBC 6.3, RBC 3.84 L, Hgb 11.6 L, Hct 35.0 L, MCV 91.2, MCH 30.3, MCHC 33.2, RDW 12.8, Plt Count 293, MPV 9.3, Neut % (Auto) 47.1, Lymph % (Auto) 41.5, [place] % (Auto) 4.9, Eos % (Auto) 6.0, Baso % (Auto) 0.6, Neut # (Auto) 3.0, Lymph # (Auto) 2.6, [place] # (Auto) 0.3, Eos # (Auto) 0.4, Baso # (Auto) 0.0, ESR 31 H 01/11/19 00:20: Sodium 143, Potassium 3.8, Chloride 106, Carbon Dioxide 28, Anion Gap 12.8, BUN 18, Creatinine 1.19 H, Estimated Creat Clear 49, Estimated GFR 46 L, Est GFR ( Amer) 55 L, Glucose 71 L, Calcium 8.8, Total Bilirubin 0.2, AST 21, ALT 27, Alkaline Phosphatase 89, C-Reactive Protein < 0.2, Total Protein 7.5, Albumin 3.8, Globulin 3.7 H, Albumin/Globulin Ratio 1.0 L 01/11/19 00:20: Lactate 0.7 Result diagrams: 01/11/19 00:20 01/11/19 00:20 Orders (Tests/Meds): ED MEDICATIONS Generic Name Dose Route Start Last Admin Trade Name Freq PRN Reason Stop Dose Admin Sodium Chloride 1,000 mls @ 999 mls/hr 01/11/19 00:30 01/11/19 00:55 Sod Chlor 0.9% 1000ml Bag IV 01/11/19 01:30 999 mls/hr .Q1H1M CEM Administration Discontinued Medications Generic Name Dose Route Start Last Admin Trade Name Freq PRN Reason Stop Dose Admin Ceftriaxone Sodium 1 gm/ 50 mls @ 100 mls/hr 01/11/19 00:44 01/11/19 00:55 Sodium Chloride IV 01/11/19 01:13 100 mls/hr ONCE ONE Administration Protocol Ketorolac Tromethamine 30 mg 01/11/19 00:43 01/11/19 00:55 Toradol 30mg/Ml Vial IV 01/11/19 00:44 30 mg ONCE ONE Administration Methylprednisolone Sodium Succinate 125 mg 01/11/19 00:43 01/11/19 00:55 Solu-Medrol 125mg/2ml Vial IV 01/11/19 00:44 125 mg ONCE ONE Administration Ondansetron HCl 4 mg 01/11/19 00:23 01/11/19 00:55 Zofran 4mg/2ml Vial IV 01/11/19 00:24 4 mg ONCE ONE Administration ORDERS Category Date Time Status Chest XR 2 view (NOT portable) [XR chest 2V] Stat Exams 01/10/19 23:27 Taken XR sinus min 3V Stat Exams 01/11/19 00:17 Taken Levetiracetam (Keppra) Stat Lab 01/11/19 00:20 Received Strep Screen Confirmation Stat Micro 05/30/19 23:25 Received - Radiology Data #1 Image(s): Chest, Other (sinus) Image Reviewed: Yes I reviewed the patient's radiology image Preliminary Findings: Normal/NAD URI/Sore Throat HPI - General Chief Complaint: Upper Respiratory Infection Stated Complaint: Headache, sinus pressure, low grade fever, nausea Ti
[2019-01-11 00:27] LABS: Basophils % 0.6 % (0.1-2.0); Eosinophils # 0.4 K/mm3 (0.0-0.4); Hemoglobin 11.6 g/dL (12.2-16.2); Lymphocytes # 2.6 K/mm3 (0.7-4.5); Lymphocytes % 41.5 % (10-50); Mean Corpuscular HGB Conc 33.2 g/dL (31.8-35.4); Mean Corpuscular Hemoglobin 30.3 pg (27.0-31.2); Mean Corpuscular Volume 91.2 fl (81-99); Mean Platelet Volume 9.3 fl (7.4-10.4); Monocytes # 0.3 K/mm3 (0.1-1.0); Monocytes % 4.9 % (1.7-9.3); Neutrophils % 47.1 % (37.0-80.0); Platelet Count 293 K/mm3 (142-424); Red Blood Count 3.84 M/mm3 (4.20-5.40); Red Cell Distribution Width 12.8 % (11.5-17.5); White Blood Count 6.3 K/mm3 (4.8-10.8)
[2019-01-11 00:37] LABS: Alanine Aminotransferase 27 U/L (12-78); Albumin Level 3.8 gm/dL (3.4-5.0); Alkaline Phosphatase 89 U/L (46-116); Anion Gap 12.8 mEq/L (5-15); Aspartate Amino Transferase 21 U/L (15-37); Bilirubin,Total 0.2 mg/dL (0.2-1.0); Blood Urea Nitrogen 18 mg/dL (7-18); Calcium 8.8 mg/dL (8.5-10.1); Carbon Dioxide 28 mmol/L (21.0-32.0); Chloride 106 mmol/L (98-107); Creatinine Clearance Estimated 49 mL/min (50-200); Creatinine,Serum 1.19 mg/dL (0.55-1.02); Estimated Glomerular Filt Rate 46 ml/min (>60); GFR (African American) 55 ML/MIN (>60); Globulin 3.7 gm/dl (1.3-3.2); Glucose 71 mg/dL (74-106); Potassium 3.8 mmoL/L (3.5-5.1); Sodium 143 mmol/L (136-145); Total Protein,Serum 7.5 gm/dL (6.4-8.2)
[2019-01-11 00:40] LABS: C-Reactive Protein < 0.2 mg/L (0.0-0.9); Lactic Acid 0.7 mmol/L (0.4-2.0)
[2019-01-11 01:02] LABS: Erythrocyte Sedimentation Rate 31 mm/hr (0-30)
[2019-01-11 01:46] VITALS: BP 120/85; PULSE 65; RESP 20; TEMP 37; O2SAT 98
[2019-01-18 06:22] LABS: Levetiracetam (Keppra) 3.9 ug/mL (10.0-40.0)
== END 2019-01-11 01:55 | disposition home or self-care (01) ==
PROVIDERS: Emergency Provider Emergency Medicine; PCP Emergency Medicine
DX: J32.9 Chronic sinusitis, unspecified (principal); F41.8 Other specified anxiety disorders; K21.9 Gastro-esophageal reflux disease without esophagitis; E78.5 Hyperlipidemia, unspecified; I10 Essential (primary) hypertension; E03.9 Hypothyroidism, unspecified
CPT/HCPCS: 70220; 71046; 80053; 80177; 83605; 85025; 85651; 86140; 87275; 87276; 87430; 96365; 96367; 96375; 99283; J2405

== ENCOUNTER → 2019-01-28 18:27 | Outpatient (CLI) | payer MEDICAID, SELFPAY ==
[2019-01-28 20:25] LABS: Amphetamine/Metha Screen,Urine Negative ng/mL (<1000); Barbiturates Screen,Urine Negative ng/mL (<200); Benzodiazepines Screen,Urine Positive ng/mL (<200); Cannabinoid Screen,Urine Negative ng/mL (<50); Cocaine Screen,Urine Negative ng/mL (<300); Methadone Screen,Urine Negative ng/mL (<300); Opiate Screen,Urine Negative ng/mL (<300); Phencyclidine Screen,Urine Negative ng/mL (<25)
== END ==
PROVIDERS: Visit Provider Emergency Medicine
DX: Z79.899 Other long term (current) drug therapy (principal)
CPT/HCPCS: 80305

== ENCOUNTER → 2019-03-29 17:19 | Outpatient (CLI) | payer MEDICAID, SELFPAY ==
[2019-03-29 18:31] LABS: Amphetamine/Metha Screen,Urine Negative ng/mL (<1000); Barbiturates Screen,Urine Negative ng/mL (<200); Benzodiazepines Screen,Urine Positive ng/mL (<200); Cannabinoid Screen,Urine Negative ng/mL (<50); Cocaine Screen,Urine Negative ng/mL (<300); Methadone Screen,Urine Negative ng/mL (<300); Opiate Screen,Urine Positive ng/mL (<300); Phencyclidine Screen,Urine Negative ng/mL (<25)
== END ==
PROVIDERS: Visit Provider Emergency Medicine
DX: Z79.899 Other long term (current) drug therapy (principal)
CPT/HCPCS: 80305

== ENCOUNTER → 2019-04-09 15:13 | Outpatient (CLI) | payer MEDICAID, SELFPAY ==
[2019-04-09 16:35] LABS: Alanine Aminotransferase 17 U/L (12-78); Albumin Level 3.8 gm/dL (3.4-5.0); Albumin/Globulin Ratio 1.2 (1.1-1.8); Alkaline Phosphatase 71 U/L (46-116); Anion Gap 12.9 mEq/L (5-15); Aspartate Amino Transferase 18 U/L (15-37); Bilirubin,Total 0.3 mg/dL (0.2-1.0); Blood Urea Nitrogen 17 mg/dL (7-18); Calcium 9.2 mg/dL (8.5-10.1); Carbon Dioxide 27 mmol/L (21.0-32.0); Chloride 108 mmol/L (98-107); Estimated Glomerular Filt Rate 56 ml/min (>60); GFR (African American) 68 ML/MIN (>60); Globulin 3.2 gm/dl (1.3-3.2); Glucose 115 mg/dL (74-106); Potassium 3.9 mmoL/L (3.5-5.1); Sodium 144 mmol/L (136-145)
== END ==
PROVIDERS: Visit Provider Emergency Medicine
DX: Z87.448 Personal history of other diseases of urinary system (principal)
CPT/HCPCS: 36415; 80053

== ENCOUNTER → 2019-07-09 17:08 | Outpatient (CLI) | payer OTHER, SELFPAY ==
[2019-07-09 19:44] LABS: Amphetamine/Metha Screen,Urine Negative ng/mL (<1000); Barbiturates Screen,Urine Negative ng/mL (<200); Benzodiazepines Screen,Urine Positive ng/mL (<200); Cannabinoid Screen,Urine Negative ng/mL (<50); Cocaine Screen,Urine Negative ng/mL (<300); Methadone Screen,Urine Negative ng/mL (<300); Opiate Screen,Urine Negative ng/mL (<300); Phencyclidine Screen,Urine Negative ng/mL (<25)
[2019-07-18 11:16] LABS: Opiates Negative (Cutoff=100)
== END ==
PROVIDERS: Visit Provider Emergency Medicine
DX: Z79.899 Other long term (current) drug therapy (principal); G89.29 Other chronic pain; M54.5 Low back pain
CPT/HCPCS: 80305; 80361; 80365; G0480

== ENCOUNTER 2019-08-28 16:57 | Outpatient (CLI) | payer OTHER, SELFPAY ==
[2019-08-28 17:12] VITALS: BP 114/71; PULSE 67; RESP 18; TEMP 36.6; O2SAT 98
== END 2019-08-28 17:19 | disposition home or self-care (01) ==
LOC: INF 16:58
PROVIDERS: PCP Emergency Medicine; Visit Provider Emergency Medicine
DX: R10.31 Right lower quadrant pain (principal); N39.0 Urinary tract infection, site not specified
CPT/HCPCS: 96372

== ENCOUNTER → 2019-09-13 17:32 | Outpatient (CLI) | payer OTHER, SELFPAY ==
[2019-09-13 18:26] LABS: Amphetamine/Metha Screen,Urine Negative ng/mL (<1000); Barbiturates Screen,Urine Negative ng/mL (<200); Benzodiazepines Screen,Urine Positive ng/mL (<200); Cannabinoid Screen,Urine Negative ng/mL (<50); Cocaine Screen,Urine Negative ng/mL (<300); Methadone Screen,Urine Negative ng/mL (<300); Opiate Screen,Urine Negative ng/mL (<300); Phencyclidine Screen,Urine Negative ng/mL (<25)
[2019-09-23 17:10] LABS: Opiates Negative (Cutoff=100)
== END ==
PROVIDERS: Visit Provider Emergency Medicine
DX: Z79.899 Other long term (current) drug therapy (principal); R10.9 Unspecified abdominal pain
CPT/HCPCS: 80305; 80361; 80365; 87086; G0480

== ENCOUNTER 2019-11-21 14:37 | Emergency (ER) | payer OTHER, SELFPAY ==
[2019-11-21 14:44] VITALS: BP 148/83; PULSE 76; RESP 18; TEMP 36.8; O2SAT 98; BMI 25.4
--- NOTE | 2019-11-21 14:48 | HMH.COUGH ---
Cough Clinic HPI - History of Present Illness Complaint:: Has felt ill the past 3 days. HPI:: Fever to 102 yesterday. Apparently she was febrile in the emergency room and was transferred over to the Covid clinic. She has had only a slight cough. She has had a sore throat. She complains of headache. She has had body aches. Severity: moderate Home Medications: Home Medications Medication Instructions Recorded Confirmed Type levetiracetam 500 mg tablet 500 mg PO DAILY tab 05/24/19 11/21/19 History gabapentin 100 mg capsule 100 mg PO TID #90 cap 07/09/19 11/21/19 Rx Ondansetron [Zofran 4mg ODT] 4 mg PO Q4H PRN #10 tab.rapdis 07/10/19 11/21/19 Rx RX: Acetaminophen [Acetaminophen See Rx Instructions .ROUTE .COMPLEX 08/03/19 11/21/19 History 325mg tab] clonazepam 0.5 mg tablet 0.5 mg PO TID #90 tab 09/13/19 11/21/19 Rx pantoprazole 40 mg tablet,delayed 1 tab PO DAILY tab 09/13/19 11/21/19 History release tramadol 50 mg tablet 50 mg PO BID PRN #60 tab 09/13/19 11/21/19 Rx loratadine 10 mg tablet 10 mg PO DAILY #90 tab 10/07/19 11/21/19 Rx metoprolol succinate 25 mg 25 mg PO DAILY #90 tab 10/07/19 11/21/19 Rx tablet,extended release 24 hr aspirin 81 mg tablet,delayed 81 mg PO DAILY #30 tab 10/28/19 11/21/19 Rx release hydrocodone 7.5 mg-acetaminophen 1 tab PO QID PRN #120 tab 11/05/19 11/21/19 Rx 325 mg tablet RX: Duloxetine HCl [Cymbalta] See Rx Instructions .ROUTE .COMPLEX 11/21/19 11/21/19 History RX: Escitalopram Oxalate See Rx Instructions .ROUTE .COMPLEX 11/21/19 11/21/19 History RX: Nitrofurantoin Monohyd/M-Cryst 100 mg PO BID 11/21/19 11/21/19 History [Nitrofurantoin [place]-Mcr 100 mg] RX: ondansetron HCL [Ondansetron 1 tab PO NEEDED PRN 11/21/19 11/21/19 History HCl] Allergies/Adverse Reactions: Allergies Allergy/AdvReac Type Severity Reaction Status Date / Time codeine [CODEINE] Allergy Unknown Verified 09/13/19 15:52 ibuprofen [IBUPROFEN] Allergy Unknown Verified 09/13/19 15:52 Iodinated Contrast Media Allergy Unknown Verified 09/13/19 15:52 [IODINATED CONTRAST MEDIA - IV DYE] morphine [MORPHINE] Allergy Unknown Verified 09/13/19 15:52 prednisone [PREDNISONE] Allergy Unknown Verified 09/13/19 15:52 prochlorperazine Allergy Unknown Verified 09/13/19 15:52 [PROCHLORPERAZINE] promethazine [From PHENERGAN] Allergy Unknown Verified 09/13/19 15:52 cephalexin [From Keflex] Allergy Verified 09/13/19 15:52 lactose AdvReac Intermediate Abdominal Verified 09/13/19 15:52 Pain Cough Clinic Triage - Symptoms Fever History: Yes Chills: Yes Myalgia: Yes Nasal Drainage: Yes Sore Throat: Yes Productive Cough: No Non-productive Cough: Yes Ear or Sinus Pain: Yes Joint Pain: Yes Chest Pain: Yes Rash: No Shortness of Breath: Yes Nausea or Vomitting: Yes Headache: Yes Abdominal Pain: Yes Diarrhea: Yes - Exposure History Foreign Travel: No Direct Contact with COVID-19 Patient: No - Risk Factors Greater than 60 Years Old: Yes COPD: No Diabetes: No Heart Disease: Yes (htn) Home Oxygen Use: No Chronic Renal Disease: Yes Chronic Liver Disease: No Neurologic/Neurodevelopmental/intellectual disability: No Other Chronic Diseases: No If Female, currently : No Current Smoker: No Former Smoker: No Cough Clinic History Medical History: Reports:: Anxiety, Congestive Heart Failure, Depression, Gastroesophageal Reflux Disease(GERD), Hepatitis, Hiatal Hernia, Hyperlipidemia, Hypertension, Migraine, Renal Disease Denies:: Cancer, Diabetes Mellitus Type 1, Diabetes Mellitus Type 2, Internal Pacemaker, Lung Disease, MRSA, Seizures Other Medical History: Reports: Anemia, Arthritis, Hypothyroidism, Other Comment: Seen in the emergency department here on 12/05/17, diagnosed with hepatitis, bronchitis, and dehydration. Normal cardiac cath on 11/27/17. Other Surgeries: Yes: No Previous Surgery, Appendectomy, Cardiac Catheterization, Cholecystectomy, Colon Resection,
[2019-11-21 15:19] LABS: Adenovirus,PCR Not Detected (NotDetected); Bordetella Pertussis Not Detected (NotDetected); Chlamydophila Pneumoniae, PCR Not Detected (NotDetected); Coronavirus 229E Not Detected (NotDetected); Coronavirus NL63 Not Detected (NotDetected); Coronavirus OC43 Not Detected (NotDetected); Coronovirus HKU1,PCR Not Detected (NotDetected); Hematocrit 35.7 % (37.0-47.0); Hemoglobin 11.5 g/dL (12.2-16.2); Human Metapneumovirus Not Detected (NotDetected); Influenza A, PCR Not Detected (NotDetected); Influenza AH1, 2009 Not Detected (NotDetected); Influenza AH1, PCR Not Detected (NotDetected); Influenza AH3,PCR Not Detected (NotDetected); Influenza B, PCR Not Detected (NotDetected); Mean Corpuscular HGB Conc 32.2 g/dL (31.8-35.4); Mean Corpuscular Hemoglobin 29.2 pg (27.0-31.2); Mean Corpuscular Volume 90.7 fl (81-99); Mycoplasma Pneumoniae, PCR Not Detected (NotDetected); Parainfluenza 1, PCR Not Detected (NotDetected); Parainfluenza 2, PCR Not Detected (NotDetected); Parainfluenza 3, PCR Not Detected (NotDetected); Parainfluenza 4, PCR Not Detected (NotDetected); Platelet Count 283 K/mm3 (142-424); Red Blood Count 3.93 M/mm3 (4.20-5.40); Red Cell Distribution Width 14.3 % (11.5-17.5); Respiratory Syncytial Virus Not Detected (NotDetected); Rhinovirus/Enterovirus Not Detected (NotDetected)
[2019-11-21 15:20] LABS: Basophils % 0.4 % (0.1-2.0); Eosinophils # 0.2 K/mm3 (0.0-0.4); Eosinophils % 2.3 % (0.1-12.0); Lymphocytes # 1.3 K/mm3 (0.7-4.5); Lymphocytes % 18.7 % (10-50); Mean Platelet Volume 9.3 fl (7.4-10.4); Monocytes # 0.2 K/mm3 (0.1-1.0); Monocytes % 3.3 % (1.7-9.3); Neutrophils # 5.3 K/mm3 (1.8-7.8); Neutrophils % 75.2 % (37.0-80.0)
[2019-11-21 15:49] VITALS: BP 148/83; PULSE 76; RESP 18; TEMP 36.9; O2SAT 98
== END 2019-11-21 15:49 | disposition home or self-care (01) ==
PROVIDERS: Emergency Provider Family Medicine; PCP Emergency Medicine
DX: B34.9 Viral infection, unspecified (principal); K21.9 Gastro-esophageal reflux disease without esophagitis; F41.8 Other specified anxiety disorders; I10 Essential (primary) hypertension; E03.9 Hypothyroidism, unspecified; Z79.899 Other long term (current) drug therapy; Z88.1 Allergy status to other antibiotic agents; Z88.5 Allergy status to narcotic agent; Z88.8 Allergy status to other drugs, medicaments and biological substances; E78.5 Hyperlipidemia, unspecified; Z90.49 Acquired absence of other specified parts of digestive tract; Z90.79 Acquired absence of other genital organ(s)
CPT/HCPCS: 36415; 85025; 87486; 87581; 87633; 87798; 99201; 99213

== ENCOUNTER 2019-11-23 15:32 | Emergency (ER) | payer OTHER, SELFPAY ==
[2019-11-23 15:34] VITALS: BP 138/87; PULSE 67; RESP 20; TEMP 37.1; O2SAT 98; BMI 24.5
--- NOTE | 2019-11-23 16:13 | CT_ITS ---
PROCEDURE: CT PELVIS WO CON CLINICAL INDICATION: fall, left-sided lower back pain COMPARISON: No exams were available for comparison TECHNIQUE: Axial images obtained with sagittal and coronal reformats. All CT scans at the facility use one or more dose reduction, viz: automated exposure control, ma/kV adjustment per patient size (including targeted exams where dose is matched to indication, i.e. head), or iterative reconstruction technique. FINDINGS: Bony pelvis: Unremarkable. No acute fracture or dislocation. Hips:Unremarkable. No acute fracture or dislocation. Sacrum/coccyx: Unremarkable as visualized. No acute fracture. Soft tissues:There is a small left femoral hernia containing fat only. Other findings: There are few scattered calcified phleboliths in the lower pelvis on either side. IMPRESSION: No significant osseous or soft tissue abnormality seen Dictated by: Dr. Jose Rafael Corado MD 11/23/2019 20:[address] Jose Rafael Corado MD in [place] 11/23/2019 20:53
--- NOTE | 2019-11-23 16:13 | XR_ITS ---
PROCEDURE: XR KNEE RT 3V CLINICAL INDICATION: fall generalized right knee pain COMPARISON: [id number] XR knee RT 3V from 08/01/2018 FINDINGS: No fracture or dislocation. No lytic or blastic change. There is normal mineralization. There is mild joint space narrowing medially. There is mild spurring of the tibial spines. There is narrowing of the patellofemoral space with minor spurring of the superior border of the patella. There is no definite effusion. IMPRESSION: Mild degenerative changes as noted, no acute bony pathology noted Dictated by: Dr. Jose Rafael Corado MD 11/23/2019 17:[address] Jose Rafael Corado MD in [place] 11/23/2019 17:38
--- NOTE | 2019-11-23 16:13 | CT_ITS ---
PROCEDURE: CT LUMBAR SPINE WO CON CLINICAL HISTORY: fall Recent fall, complaining of low back pain COMPARISON: [facility] CT LUMBAR SPINE W/O CONTRAST from 04/01/2016 TECHNIQUE: Axial images obtained with sagittal and coronal reformats. All CT scans at the facility use one or more dose reduction, viz: automated exposure control, ma/kV adjustment per patient size (including targeted exams where dose is matched to indication, i.e. head), or iterative reconstruction technique. FINDINGS: There is normal curvature and alignment. All lumbar vertebrae appear intact. There is mild generalized osteopenia. The L1-2, L2-3 and L3-4 disc appear normal. There is a small left paracentral and foraminal disc protrusion L4-5 compromising the left neural foramina at this level. There is a small central disc protrusion L5-S1. There are mild hypertrophic facet changes at the L4-5 and L5-S1 levels. There are surgical clips right upper quadrant at the lateral edge of the field of view likely secondary to a previous cholecystectomy. There is a small 2 mm nonobstructing calculus upper pole right kidney. IMPRESSION: Mild disc protrusions at levels L4-5 and L5-S1 along with mild hypertrophic facet changes, no acute pathology identified Dictated by: Dr. Jose Rafael Corado MD 11/23/2019 20:[address] Jose Rafael Corado MD in [place] 11/23/2019 20:49
--- NOTE | 2019-11-23 16:22 | PC.NURSE ---
Pt to rad.
--- NOTE | 2019-11-23 16:41 | PC.NURSE ---
Pt returned from rad.
--- NOTE | 2019-11-23 17:35 | HMH.EDFALL ---
ED Disposition Clinical Impression: Multiple contusions of trunk Disposition: Home, Self-Care Condition on Discharge: Good Instructions: How to Prevent Falls Additional Instructions: If you have any additional symptoms please follow-up with your primary care however if you feel this is an emergent condition please return to the emergency department Referrals: Reuben Fong MD [Primary Care Provider] - - Critical Care Critical Care Time: No Attestation: On 11/23/19, the high probability of a clinically significant, sudden or life threatening deterioration of the following system(s) required my full and direct attention, intervention and personal management. The time I documented below is in addition to time spent performing reported procedures but includes the following listed in this critical care notation. Medical Decision Making - Medical Records Medical records reviewed: Yes: I reviewed the patient's medical records. - Grant Inquiry Pt receiving controlled substance: No Vital Signs: 11/23/19 15:34 Temperature 98.8 F Temperature Source Oral Pulse Rate [Left Radial] 67 Respiratory Rate 20 Blood Pressure [Right Arm] 138/87 Blood Pressure Mean [Right Arm] 104 Blood Pressure Position [Right Arm] Sitting 02 Sat by Pulse Oximetry 98 Oxygen Delivery Method Room Air - Lab Data Lab results reviewed: Yes: I reviewed the patient's lab results. Orders (Tests/Meds): ORDERS Category Date Time Status CT lumbar spine wo con Stat Cat Scan 11/23/19 16:[address] pelvis wo con Stat Cat Scan 11/23/19 16:13 Taken Knee XR right 3 views [XR knee RT 3V] Stat Exams 11/23/19 16:13 Taken - Radiology Data #1 Image(s): Knee Preliminary Findings: Normal/NAD - CT Data CT Scan: Pelvis, L-Spine Time Received: 17:39 Preliminary Findings: Normal/NAD Fall HPI - General Chief Complaint: Fall Stated Complaint: fall 11/23/19 1400 everything hurts Time Seen by Provider: 11/23/19 17:35 Mode of Arrival: Ambulatory Source of Information: Patient Limitations: No Limitations Description of Symptoms (Recalled from ER Triage Doc. by RN): to ed per pvt car pt states slipped getting out of bathtub and c/o pain everywhere pt denies loc. pt c/o dizzness room spinning after fall - History of Present Illness HPI Narrative: 64-year-old female presents the ED after having a fall in the bathtub. She states that she got on the bath yesterday and fell landing on her right hip and right knee. Patient states that she is in pain all over. But as I was questioning the patient she was able to ambulate her arms with no significant discomfort. And she also sat up in the bed flexed at the waist with absolutely no discomfort. She can isolate where she was in pain she said she was in pain all over. She also states her pain is 10 out of 10. There is no visible evidence of any trauma. She is lying in bed with her legs crossed and moving her legs and ambulating with no difficulty. Patient's vital signs are stable. She rates her pain as sharp. She cannot describe any alleviating or exacerbating factors. She denies any recent fever shakes or chills. She also denies any cough or shortness of breath. - Related Data Home Medications Medication Instructions Recorded Confirmed levetiracetam 500 mg tablet 500 mg PO DAILY tab 05/24/19 11/21/19 Acetaminophen [Acetaminophen 325mg See Rx Instructions .ROUTE .COMPLEX 08/03/19 11/21/19 tab] pantoprazole 40 mg tablet,delayed 1 tab PO DAILY tab 09/13/19 11/21/19 release Duloxetine HCl [Cymbalta] See Rx Instructions .ROUTE .COMPLEX 11/21/19 11/21/19 Escitalopram Oxalate See Rx Instructions .ROUTE .COMPLEX 11/21/19 11/21/19 Nitrofurantoin Monohyd/M-Cryst 100 mg PO BID 11/21/19 11/21/19 [Nitrofurantoin [place]-Mcr 100 mg] ondansetron HCL [Ondansetron HCl] 1 tab PO NEEDED PRN 11/21/19 11/21/19 Previous Rx's Medication Instructions Recorded gabapentin 100 m
[2019-11-23 17:47] VITALS: BP 123/65; PULSE 78; RESP 16; TEMP 36.6; O2SAT 98
== END 2019-11-23 17:48 | disposition home or self-care (01) ==
PROVIDERS: Emergency Provider Family Medicine; PCP Emergency Medicine
DX: S20.20XA Contusion of thorax, unspecified, initial encounter (principal); S80.01XA Contusion of right knee, initial encounter; S49.90XA Unspecified injury of shoulder and upper arm, unspecified arm, initial encounter; S70.01XA Contusion of right hip, initial encounter; W18.2XXA Fall in (into) shower or empty bathtub, initial encounter; Y92.019 Unspecified place in single-family (private) house as the place of occurrence of the external cause; K21.9 Gastro-esophageal reflux disease without esophagitis; E78.5 Hyperlipidemia, unspecified; E03.9 Hypothyroidism, unspecified; I10 Essential (primary) hypertension; F41.8 Other specified anxiety disorders; Z88.5 Allergy status to narcotic agent; Z79.899 Other long term (current) drug therapy; Z90.49 Acquired absence of other specified parts of digestive tract; Z90.79 Acquired absence of other genital organ(s)
CPT/HCPCS: 72131; 72192; 73562; 99282

== ENCOUNTER 2019-11-29 21:09 | Emergency (ER) | payer OTHER, SELFPAY ==
[2019-11-29 21:18] VITALS: BP 152/85; PULSE 74; RESP 16; TEMP 36.9; O2SAT 98; BMI 24.7
--- NOTE | 2019-11-29 21:27 | XR_ITS ---
PROCEDURE: XR HUMERUS RT 2v XR SHOULDER RT MIN 3V from 11/29/2019 Patient Age:64Y CLINICAL INDICATION: fall multiple injuries. Severe bruising with swelling mid humerus.. Right shoulder pain COMPARISON: CHE[facility]WO CT chest wo con from 08/01/2018 CXR2V XR chest 2V from 08/01/2018 Chest from 01/11/2019 XR CHEST 2V from 07/03/2019 XR ELBOW RT MIN 3V from 11/29/2019 XR CHEST AP from 11/29/2019 XR SHOULDER RT MIN 2V from 11/29/2019 FINDINGS: RIGHT HUMERUS: AP AND LATERAL VIEW. no fracture or dislocation. No lytic or blastic change. There is normal mineralization. Visualized joint spaces are well-preserved. No significant degenerative/arthritic changes. No erosive changes evident. RIGHT SHOULDER3 VIEW AP internal external rotation view along with Y-view performed. But no fracture nor dislocation but normal relationships at right shoulder. Glenohumeral joint intact. Humeral head and neck appear intact. AC joint intact with perhaps mild degenerative change. The scapula appears intact. Undulation lateral right 5th rib age indeterminate. Although tend to favor old healed fracture I cannot find on a 2018 CT chest however I believe it is evident on a June 2019 CXR consider. But if focal tenderness here rib series may be warranted to exclude a recent fracture.. IMPRESSION: 1. Right humerus intact-no fracture 2. Right shoulder intact-no fracture or dislocation 3. Subtle Undulation lateral right 5th rib.-favor more likely old fracture (likely evident on Jun 2019 CXR). However if there is point tenderness here consider follow-up rib series Dictated by: Bowen Lopez MD 11/30/2019 13:33 Electronically signed by Bowen Lopez MD in [place] 11/30/2019 13:33
--- NOTE | 2019-11-29 21:27 | CT_ITS ---
PROCEDURE: CT CERVICAL SPINE WO CON Patient Age:64Y CLINICAL INDICATION: fall Patient had a fall this morning she states due to a knee problem. Also complains of dizziness. Nonsmoker. COMPARISON: [facility] CT cervical spine wo con from 03/01/2018 TECHNIQUE: No IV contrast Axial images obtained with sagittal and coronal reformats. All CT scans at the facility use one or more dose reduction, viz: automated exposure control, ma/kV adjustment per patient size (including targeted exams where dose is matched to indication, i.e. head), or iterative reconstruction technique. FINDINGS: No fracture nor subluxation is evident cervical spine.. Normal prevertebral soft tissues.. No significant new findings. No fracture nor subluxation. On previous study again note the lack as of segmentation and congenital fusion at C3-C4 vertebral bodies and posterior elements... The remaining disc spaces appear fairly well maintained C5/6 borderline disc space narrowing with minor uncovertebral joint hypertrophy at C5/6. Very minor degenerative changes are evident elsewhere cervical thoracic spine: Minor anterior marginal osteophyte C6/7 for example, and Only scant facet degenerative changes C-spine otherwise The C1-C2 relationships appear is stable and satisfactory the prevertebral soft tissues normal.. Scattered small nodes at the neck Limited views of lung apices are included and the lungs show no pneumothorax or acute findings. There are some patchy groundglass densities at the lung lopez bilaterally with most likely chronic changes and similar since 2018. IMPRESSION . No acute fracture nor subluxation cervical spine. . Stable, very minimal degenerative changes C-spine. . 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 . Incidental observation Patchy groundglass opacities at lung apices partially imaged and similar to 2018 IMPRESSION: Cervical spine intact with no fracture nor subluxation. Dictated by: Bowen Lopez MD 11/30/2019 08:23 Electronically signed by Bowen Lopez MD in [place] 11/30/2019 08:23
--- NOTE | 2019-11-29 21:27 | XR_ITS ---
PROCEDURE: XR ELBOW RT MIN 3V Patient Age:64Y CLINICAL INDICATION: fall Right elbow pain from fall multiple injuries. COMPARISON: The no exams were available for comparison FINDINGS: No fracture or dislocation. No lytic or blastic change. No joint effusion evident anterior posterior fat pad satisfactory.. Bones well mineralized. Radial head intact.. The joint spaces are well-preserved. No significant degenerative/arthritic changes. No erosive changes evident. The regional soft tissues satisfactory IMPRESSION: No acute findings. Right elbow intact: No fracture or effusion Dictated by: Bowen Lopez MD 11/30/2019 08:41 Electronically signed by Bowen Lopez MD in [place] 11/30/2019 08:41
--- NOTE | 2019-11-29 21:27 | XR_ITS ---
PROCEDURE: XR HIP RT 2-3V W/PELVIS Patient Age:64Y CLINICAL INDICATION: fall with injury and pain at right hip Right knee gives out. Right knee swelling and pain COMPARISON: [facility] PELVIS AP ONLY from 04/01/2016 FINDINGS: RIGHT HIP: AP and frog-leg view no fracture or dislocation is evident. No significant degenerative change. No lytic or blastic change. Unremarkable soft tissues. AP PELVIS: Single AP osseous pelvis radiograph appears intact unchanged since 2016. No fracture nor lesion evident but AP view of both hips appear symmetric and intact. Surgical clips projected over the mid to lower sacrum again noted from previous pelvic surgery. Numerous phleboliths inferior pelvic basin. Incidental note generous stool most evident at rectal vault IMPRESSION: RIGHT HIP intact-no fracture. No acute findings AP OSSEOUS PELVIS intact as well.-No fracture Dictated by: Bowen Lopez MD 11/30/2019 08:39 Electronically signed by Bowen Lopez MD in [place] 11/30/2019 08:39
--- NOTE | 2019-11-29 21:27 | CT_ITS ---
PROCEDURE: CT HEAD/BRAIN WO CON Patient Age:64Y CLINICAL INDICATION: fall Fall this morning due to knee. Dizzy. COMPARISON: CT HEAD/BRAIN WO CON from 07/03/2019 TECHNIQUE: Axial images were obtained. All CT scans at the facility use one or more dose reduction, viz: automated exposure control, ma/kV adjustment per patient size (including targeted exams where dose is matched to indication, i.e. head), or iterative reconstruction technique. FINDINGS: No acute intracranial findings. No intracranial hemorrhage.. Again notable physiologic calcification at the basal ganglia bilaterally-unchanged since prior study. No territorial infarct. Patchy low-density throughout the deep white matter regions both periventricular and subcortical white matter-consistent with ischemic gliotic changes from longstanding microvascular disease-these findings are slightly advanced for 64 and suspect there may be some underlying vascular risk factors.(HTN, diabetes, smoking, etc). Minimal cerebral atrophy noting the slight generous sulci towards convexity-stable The ventricles and basal cisterns appear clear. Cavum septum pellucidum anatomical variation again noted. No mass lesion nor r midline shift nor mass effect. No subdural or extra-axial fluid collection is evident. Posterior fossa unremarkable. Skull intact- calvarium unremarkable appearance. Nomastoid effusions. Mastoid air cells are well developed and clear. Middle ear clear. IAC's symmetric.. Generous cerumen noted at the right external auditory canal Nosinus air-fluid level. Visualized portions of the paranasal sinuses and orbits unremarkable. IMPRESSION: No acute intracranial findings Chronic small vessel deep white-matter ischemic gliotic changes, slightly dense for age. With this suspect underlying vascular risk factors Incidental note: Prominent cerumen right external auditory canal Dictated by: Bowen Lopez MD 11/30/2019 08:10 Electronically signed by Bowen Lopez MD in [place] 11/30/2019 08:10
--- NOTE | 2019-11-29 21:27 | XR_ITS ---
PROCEDURE: XR CHEST AP Patient Age:64Y CLINICAL HISTORY: fall fall with multiple injuries Dizziness nonsmoker COMPARISON: CXR2V XR chest 2V from 08/01/[address] chest wo con from 10/26/2018 Chest from 01/11/2019 CT ABDOMEN PELVIS WO CON from 05/24/2019 XR CHEST 2V from 07/03/2019 FINDINGS: The heart is mildly enlarged borderline cardiomegaly. Minor density off the left cardiac apex most likely reflects anterior fat pad as was seen on previous October 2018 CT chest. Noni and mediastinal structures appear stable, satisfactory lungs clear with nothing definitely acute. The chest wall unremarkable no pneumothorax nor pleural effusion clips right upper quadrant from cholecystectomy IMPRESSION: No acute findings.. Stable chest Dictated by: Bowen Lopez MD 11/30/2019 13:22 Electronically signed by Bowen Lopez MD in [facility] 11/30/2019 13:22
--- NOTE | 2019-11-29 21:57 | XR_ITS ---
PROCEDURE: XR KNEE RT 3V Patient Age:64Y CLINICAL INDICATION: fall Fall right knee has been giving out pain/injury/swelling COMPARISON: [id number] XR knee LT 3V from 08/01/2018 Knee L from 02/19/2019 Knee R from 02/19/2019 XR KNEE RT 3V from 11/23/2019 FINDINGS: : Right [id number]: AP oblique and lateral view right knee compared to multiple previous studies most recent 11/23/2019 the she no acute fracture or dislocation. No lytic or blastic change. There is normal mineralization. The joint spaces fairly well maintained with only borderline narrowing at the medial compartment slight sharpening the joint margins of may reflect early degenerative changes. Scant marginal osteophyte margin of patella. No erosive changes evident.. Suspect small joint effusion suprapatellar bursa on today lateral view. IMPRESSION: No fracture. Lateral view suspect for small joint effusion suprapatellar bursa No prominent features/only suggestion scant degenerative changes. Slight sharpening at joint margins The joint spaces fairly well maintained with only borderline narrowing medial compartment On final review suggestion mild edema superficial SQ soft tissues overlying the medial compartment. Possibly reflect mild contusion here? Dictated by: Bowen Lopez MD 11/30/2019 08:33 Electronically signed by Bowen Lopez MD in [facility] 11/30/2019 08:33
--- NOTE | 2019-11-29 23:27 | HMH.EDFALL ---
ED Disposition Clinical Impression: Upper extremity injury Qualifiers: Encounter type: initial encounter Laterality: right Qualified Code(s): S49.91XA - Unspecified injury of right shoulder and upper arm, initial encounter Contusion, knee Qualifiers: Encounter type: initial encounter Laterality: right Qualified Code(s): S80.01XA - Contusion of right knee, initial encounter Fall Qualifiers: Encounter type: initial encounter Qualified Code(s): W19.XXXA - Unspecified fall, initial encounter Disposition: Home, Self-Care Condition on Discharge: Good Instructions: How to Prevent Falls Additional Instructions: see pcp for follow up Referrals: Reuben Fong MD [Primary Care Provider] - - Critical Care Critical Care Time: No Attestation: On 11/29/19, the high probability of a clinically significant, sudden or life threatening deterioration of the following system(s) required my full and direct attention, intervention and personal management. The time I documented below is in addition to time spent performing reported procedures but includes the following listed in this critical care notation. Medical Decision Making - Medical Records Medical records reviewed: Yes: I reviewed the patient's medical records. - Grant Inquiry Pt receiving controlled substance: No Vital Signs: 11/29/19 21:18 Temperature 98.4 F Temperature Source Oral Pulse Rate [Left] 74 Respiratory Rate 16 Blood Pressure [Left Arm] 152/85 H Blood Pressure Mean [Left Arm] 107 Blood Pressure Source [Left Arm] Automatic Cuff Blood Pressure Position [Left Arm] Sitting 02 Sat by Pulse Oximetry 98 Oxygen Delivery Method Room Air - Lab Data Lab results reviewed: Yes: I reviewed the patient's lab results. Orders (Tests/Meds): ED MEDICATIONS Discontinued Medications Generic Name Dose Route Start Last Admin Trade Name Freq PRN Reason Stop Dose Admin Sodium Chloride 1,000 mls @ 999 mls/hr 11/29/19 21:30 11/29/19 21:33 Sod Chlor 0.9% 1000ml Bag IV 11/29/19 22:30 999 mls/hr .Q1H1M CEM Administration Ketorolac Tromethamine 30 mg 11/29/19 21:30 11/29/19 21:51 Toradol 30mg/Ml Vial IV 11/29/19 21:31 Not Given ONCE ONE Ketorolac Tromethamine 60 mg 11/29/19 21:46 11/29/19 21:50 Toradol 60mg/2ml Vial IM 11/29/19 21:47 60 mg ONCE ONE Administration ORDERS Category Date Time Status CT cervical spine wo con Stat Cat Scan 11/29/19 21:[address] head/brain wo con Stat Cat Scan 11/29/19 21:27 Taken Knee XR right 3 views [XR knee RT 3V] Stat Exams 11/29/19 21:57 Taken XR chest AP Stat Exams 11/29/19 21:27 Taken XR elbow RT min 3V Stat Exams 11/29/19 21:27 Taken XR hip RT 2-3V w/pelvis Stat Exams 11/29/19 21:27 Taken XR humerus RT Stat Exams 11/29/19 21:27 Taken XR shoulder RT min 2V Stat Exams 11/29/19 21:27 Taken - Radiology Data #2 Image(s): Chest, Shoulder, Humerus, Elbow, Pelvis, Knee Image Reviewed: Yes I reviewed the patient's radiology image Preliminary Findings: No Fracture Seen - CT Data CT Scan: Head, C-Spine Time Received: 23:[address] Reviewed: Yes: I have viewed the radiologist's interpretation Preliminary Findings: No Fracture Seen Fall HPI - General Chief Complaint: Fall Stated Complaint: AO [id number] injured right side Time Seen by Provider: 11/29/19 21:40 Mode of Arrival: Ambulatory Source of Information: Patient, Medical Record Limitations: No Limitations Description of Symptoms (Recalled from ER Triage Doc. by RN): Pt states her bad right kne gave out on her and she fell hitting her right side, denies head injury or LOC - History of Present Illness HPI Narrative: slip like injury this am with rt upper ext injury and rt knee - no loc or abd pain MD complaint: fall Onset (ago): hour(s) Fall from: standing Fall witnessed: no Place fall occurred: home Loss of consciousness: none Prolonged down time: no Context: tripped/slipped Location of injury:
[2019-11-29 23:49] VITALS: BP 146/82; PULSE 76; RESP 16; TEMP 36.9; O2SAT 96
== END 2019-11-30 00:01 | disposition home or self-care (01) ==
PROVIDERS: Emergency Provider Emergency Medicine; PCP Emergency Medicine
DX: S49.91XA Unspecified injury of right shoulder and upper arm, initial encounter (principal); S80.01XA Contusion of right knee, initial encounter; W19.XXXA Unspecified fall, initial encounter; F41.8 Other specified anxiety disorders; Z79.899 Other long term (current) drug therapy; E03.9 Hypothyroidism, unspecified; Z88.1 Allergy status to other antibiotic agents; Z88.5 Allergy status to narcotic agent; Z88.8 Allergy status to other drugs, medicaments and biological substances
CPT/HCPCS: 70450; 71045; 72125; 73030; 73060; 73080; 73502; 73562; 96365; 96372; 99282; J0595

== ENCOUNTER 2020-01-26 18:31 | Emergency (ER) | payer OTHER, SELFPAY ==
[2020-01-26 18:32] VITALS: BP 136/72; PULSE 80; RESP 18; TEMP 36.8; O2SAT 97; BMI 27.4
--- NOTE | 2020-01-26 18:52 | XR_ITS ---
PROCEDURE: XR CHEST 2V CLINICAL HISTORY: chest pain COMPARISON: CHESTWO CT chest wo con from 10/26/2018 Chest from 01/11/2019 XR CHEST 2V from 07/03/2019 XR CHEST AP from 11/29/2019 FINDINGS: The cardiomediastinal silhouette and pulmonary vascularity are within normal limits. The lungs are clear without infiltrates, suspicious nodules, or pleural effusions. No acute bony abnormalities. IMPRESSION: No acute findings. Dictated by: Keyon Chen MD 01/26/2020 22:54 Electronically signed by Keyon Chen MD in [facility] 01/26/2020 22:54
[2020-01-26 19:32] VITALS: BP 158/78; PULSE 53; RESP 17; O2SAT 97
[2020-01-26 19:32] LABS: Basophils # 0.1 K/mm3 (0-0.2); Basophils % 0.7 % (0.1-2.0); Eosinophils # 0.3 K/mm3 (0.0-0.4); Eosinophils % 3.9 % (0.1-12.0); Hematocrit 35.1 % (37.0-47.0); Hemoglobin 11.9 g/dL (12.2-16.2); Lymphocytes # 2.6 K/mm3 (0.7-4.5); Lymphocytes % 31.2 % (10-50); Mean Corpuscular HGB Conc 33.8 g/dL (31.8-35.4); Mean Corpuscular Hemoglobin 30.1 pg (27.0-31.2); Mean Platelet Volume 9.1 fl (7.4-10.4); Monocytes # 0.4 K/mm3 (0.1-1.0); Monocytes % 5.2 % (1.7-9.3); Neutrophils # 4.9 K/mm3 (1.8-7.8); Neutrophils % 59.1 % (37.0-80.0); Platelet Count 301 K/mm3 (142-424); Red Blood Count 3.95 M/mm3 (4.20-5.40); White Blood Count 8.3 K/mm3 (4.8-10.8)
[2020-01-26 19:41] LABS: Microscopic, Urine URINE MICROSCOPIC (MICROSCOPIC)
[2020-01-26 19:44] LABS: Alanine Aminotransferase 23 U/L (12-78); Albumin Level 4.5 g/dl (3.5-5.0); Albumin/Globulin Ratio 1.4 (1.1-1.8); Alkaline Phosphatase 98 U/L (38-126); Amylase 46 U/L (30-110); Anion Gap 12.5 mEq/L (5-15); Aspartate Amino Transferase 44 U/L (14-36); Bilirubin,Total 0.5 mg/dl (0.2-1.3); Blood Urea Nitrogen 16 mg/dl (7-17); Calcium 9.4 mg/dl (8.4-10.2); Carbon Dioxide 31 mmol/L (22.0-30.0); Chloride 102 mmol/L (98-107); Creatinine Clearance Estimated 65 mL/min (50-200); Estimated Glomerular Filt Rate 84 ml/min (>60); GFR (African American) 102 ML/MIN (>60); Globulin 3.3 g/dL (1.3-3.2); Glucose 108 mg/dl (74-100); Lipase 85 U/L (23-300); Potassium 3.5 mmoL/L (3.5-5.1); Sodium 142 mmol/L (136-145); Total Protein,Serum 7.8 g/dl (6.3-8.2)
[2020-01-26 19:59] LABS: Appearance,Urine CLEAR (Clear); Bilirubin,Urine Negative (Negative); Blood, Urine Negative (Negative); Color,Urine YELLOW (Yellow); Glucose,Urine (UA) Negative (Negative); Ketones,Urine Negative (Negative); Leukocyte Esterase,Urine 1+ (Negative); Nitrate,Urine Negative (Negative); Protein,Urine Negative (Negative); Urobilinogen,Urine 0.2 EU/dl (0.2)
[2020-01-26 20:00] VITALS: BP 154/82; PULSE 54; RESP 16; O2SAT 99
--- NOTE | 2020-01-26 20:19 | HMH.EDNVD ---
ED Disposition Clinical Impression: Gastritis Qualifiers: Gastritis type: unspecified gastritis Chronicity: acute Gastritis bleeding: without bleeding Qualified Code(s): K29.00 - Acute gastritis without bleeding Disposition: Home, Self-Care Condition on Discharge: Good Instructions: DI for Nausea -- Adult Additional Instructions: call pcp for follow up Referrals: Reuben Fong MD [Primary Care Provider] - - Critical Care Critical Care Time: No Attestation: On 01/26/20, the high probability of a clinically significant, sudden or life threatening deterioration of the following system(s) required my full and direct attention, intervention and personal management. The time I documented below is in addition to time spent performing reported procedures but includes the following listed in this critical care notation. Medical Decision Making - Medical Records Medical records reviewed: Yes: I reviewed the patient's medical records. - Grant Inquiry Pt receiving controlled substance: No Vital Signs: 01/26/20 18:32 01/26/20 19:32 01/26/20 20:00 Temperature 98.2 F Temperature Source Oral Pulse Rate [Right] 80 53 L 54 L Respiratory Rate 18 17 16 Blood Pressure [Right Arm] 136/72 158/78 H 154/82 H Blood Pressure Mean [Right Arm] 93 104 106 Blood Pressure Source [Right Arm] Automatic Cuff Automatic Cuff Blood Pressure Position [Right Arm] Sitting Supine 02 Sat by Pulse Oximetry 97 97 99 Oxygen Delivery Method Room Air Room Air 01/26/20 20:30 Temperature Temperature Source Pulse Rate [Right] 52 L Respiratory Rate 18 Blood Pressure [Right Arm] 161/87 H Blood Pressure Mean [Right Arm] 111 Blood Pressure Source [Right Arm] Automatic Cuff Blood Pressure Position [Right Arm] Supine 02 Sat by Pulse Oximetry 95 Oxygen Delivery Method Room Air - Lab Data Lab results reviewed: Yes: I reviewed the patient's lab results. Lab Results 01/26/20 19:26: Urine Color Yellow, Urine Appearance Clear, Urine pH 7.0, Ur Specific [place] 1.010, Urine Protein Negative, Urine Glucose (UA) Negative, Urine Ketones Negative, Urine Blood Negative, Urine Nitrate Negative, Urine Bilirubin Negative, Urine Urobilinogen 0.2, Ur Leukocyte Esterase 1+ A, Urine WBC 10-20 01/26/20 19:26: WBC 8.3, RBC 3.95 L, Hgb 11.9 L, Hct 35.1 L, MCV 89.0, MCH 30.1, MCHC 33.8, RDW 14.0, Plt Count 301, MPV 9.1, Neut % (Auto) 59.1, Lymph % (Auto) 31.2, [place] % (Auto) 5.2, Eos % (Auto) 3.9, Baso % (Auto) 0.7, Neut # (Auto) 4.9, Lymph # (Auto) 2.6, [place] # (Auto) 0.4, Eos # (Auto) 0.3, Baso # (Auto) 0.1 01/26/20 19:26: Sodium 142, Potassium 3.5, Chloride 102, Carbon Dioxide 31 H, Anion Gap 12.5, BUN 16, Creatinine 0.70, Estimated Creat Clear 65, Estimated GFR 84, Est GFR ( Amer) 102, Glucose 108 H, Calcium 9.4, Total Bilirubin 0.5, AST 44 H, ALT 23, Alkaline Phosphatase 98, Total Protein 7.8, Albumin 4.5, Globulin 3.3 H, Albumin/Globulin Ratio 1.4, Amylase 46, Lipase 85 01/26/20 19:26: Troponin I < 0.01 Result diagrams: 01/26/20 19:26 01/26/20 19:26 Orders (Tests/Meds): ED MEDICATIONS Generic Name Dose Route Start Last Admin Trade Name Freq PRN Reason Stop Dose Admin Sodium Chloride 1,000 mls @ 999 mls/hr 01/26/20 20:30 01/26/20 20:31 Sod Chlor 0.9% 1000ml Bag IV 01/26/20 21:30 999 mls/hr .Q1H1M CEM Administration Sodium Chloride 8 ml 01/26/20 20:19 01/26/20 20:31 Sodium Chloride 0.9% 10ml Vial IV 02/25/20 20:18 8 ml NEEDED PRN Administration dilute pepcid Discontinued Medications Generic Name Dose Route Start Last Admin Trade Name Freq PRN Reason Stop Dose Admin Famotidine 20 mg 01/26/20 20:19 01/26/20 20:31 Pepcid 20mg/2ml Vial IV 01/26/20 20:20 20 mg ONCE ONE Administration Ketorolac Tromethamine 30 mg 01/26/20 20:24 01/26/20 20:31 Toradol 30mg/Ml Vial IV 01/26/20 20:25 30 mg ONCE ONE Administration Metoclopramide HCl 10 mg 01/26/20 20:19 01/26/20 20:31 Reglan 10mg/2ml
[2020-01-26 20:30] VITALS: BP 161/87; PULSE 52; RESP 18; O2SAT 95
[2020-01-26 20:49] LABS: Troponin I < 0.01 ng/ml (0.00-0.034)
[2020-01-26 21:58] VITALS: BP 152/72; PULSE 54; RESP 14; TEMP 36.8; O2SAT 96
== END 2020-01-26 22:02 | disposition home or self-care (01) ==
PROVIDERS: Emergency Provider Emergency Medicine; PCP Emergency Medicine
DX: K29.00 Acute gastritis without bleeding (principal); K21.9 Gastro-esophageal reflux disease without esophagitis; F41.8 Other specified anxiety disorders; I10 Essential (primary) hypertension; E78.5 Hyperlipidemia, unspecified; G43.709 Chronic migraine without aura, not intractable, without status migrainosus; E03.9 Hypothyroidism, unspecified; Z79.899 Other long term (current) drug therapy
CPT/HCPCS: 71046; 80053; 81001; 82150; 83690; 84484; 85025; 87086; 96365; 96375; 99284; J0595; J2405

== ENCOUNTER → 2020-02-11 10:15 | Outpatient (CLI) | payer OTHER, SELFPAY ==
[2020-02-11 10:49] LABS: Basophils % 0.5 % (0.1-2.0); Eosinophils # 0.3 K/mm3 (0.0-0.4); Eosinophils % 3.6 % (0.1-12.0); Hematocrit 38.2 % (37.0-47.0); Hemoglobin 12.5 g/dL (12.2-16.2); Lymphocytes # 1.6 K/mm3 (0.7-4.5); Lymphocytes % 22.3 % (10-50); Mean Corpuscular HGB Conc 32.7 g/dL (31.8-35.4); Mean Corpuscular Hemoglobin 29.3 pg (27.0-31.2); Mean Corpuscular Volume 89.6 fl (81-99); Mean Platelet Volume 8.8 fl (7.4-10.4); Monocytes # 0.3 K/mm3 (0.1-1.0); Neutrophils % 69.6 % (37.0-80.0); Platelet Count 292 K/mm3 (142-424); Red Blood Count 4.27 M/mm3 (4.20-5.40); Red Cell Distribution Width 14.1 % (11.5-17.5); White Blood Count 7.3 K/mm3 (4.8-10.8)
[2020-02-11 11:46] LABS: Chloride 107 mmol/L (98-107); Sodium 139 mmol/L (136-145)
[2020-02-11 11:47] LABS: Potassium 3.9 mmoL/L (3.5-5.1)
[2020-02-11 11:49] LABS: Blood Urea Nitrogen 15 mg/dl (7-17); Estimated Glomerular Filt Rate 72 ml/min (>60); GFR (African American) 87 ML/MIN (>60)
[2020-02-11 11:50] LABS: Anion Gap 9.9 mEq/L (5-15); Carbon Dioxide 26 mmol/L (22.0-30.0)
[2020-02-11 11:56] LABS: Calcium 9.7 mg/dl (8.4-10.2)
[2020-02-11 13:42] LABS: Glucose 121 mg/dl (74-100)
[2020-02-11 13:59] LABS: Coronavirus 19 IgG Antibody Negative (Negative); Coronavirus 19 IgM Antibody Negative (Negative)
== END ==
PROVIDERS: Visit Provider Surgery
DX: Z01.818 Encounter for other preprocedural examination (principal); Z45.2 Encounter for adjustment and management of vascular access device
CPT/HCPCS: 36415; 80048; 85025; 86328

== ENCOUNTER 2020-02-12 08:50 | Day surgery (SDC) | payer OTHER, SELFPAY ==
--- NOTE | 2020-02-10 12:38 | SUR.PREOP ---
02/10/2020 @ 0906--PHONE CALL MADE TO PATIENT. PATIENT UNDERSTANDS THAT LAB WORK AND COVID TESTING NEEDS TO BE COMPLETED BETWEEN 8-12. PATIENT UNDERSTANDS IF LAB WORK AND COVID-19 TESTS ARE NOT COMPLETED BY 12PM ON THAT DATE, THE SURGERY SCHEDULED WILL BE CANCELLED AND RESCHEDULED FOR ANOTHER TIME.
[2020-02-10 14:40] VITALS: BMI 25.4
[2020-02-12] VITALS (13 sets, daily range): BP systolic 125–160; BP diastolic 69–85; PULSE 57–71; RESP 14–20; TEMP 36.2–36.6; O2SAT 95–100
--- NOTE | 2020-02-12 10:15 | HMH.ANESCL ---
[facility] Anesthesia Checklist - Patient Identification Patient Identification: Arm Band - Structural Data Admitted From: Home Planned Operative Procedure/s: venous access port placement Consent for Planned Operative Procedure(s) Verified: Yes Verified Documents: Surgical Consent, History and Physical - NPO Status Verified Time NPO: 00:00 - Additional verifications Anesthesia Reactions: No Hx Blood Transfusions: Yes Blood Transfusion Reaction: No - Airway Assessment C-Spine Mobility Assessed: Yes (mp2) TMJ Mobility Assessed: Yes Dentition: Edentulous - Neurological Assessment Level of Consciousness: Awake, Alert - Anesthesia Plan Anesthesia Risk discussed: Yes Anesthesia Plan: Verified ASA Class: II Anesthesia Type: General [facility] History I have reviewed the patient's past medical history: Yes Medical History: Reports:: Anxiety, Congestive Heart Failure, Depression, Gastroesophageal Reflux Disease(GERD), Hepatitis, Hiatal Hernia, Hyperlipidemia, Hypertension, Migraine, Renal Disease Denies:: Cancer, Diabetes Mellitus Type 1, Diabetes Mellitus Type 2, Internal Pacemaker, Lung Disease, MRSA, Seizures *Have you ever received a pneumonia vaccine?: Yes *Have you received a flu vaccine this season?: Yes Other Medical History: Reports: Anemia, Arthritis, Hypothyroidism, Other. Denies: Blood Transfusion Reaction Anesthesia experience/problems:: nac Other Surgeries: Yes: Appendectomy, Cardiac Catheterization, Cholecystectomy, Colonoscopy, Colon Resection, Hysterectomy-Total, Sinus Surgery, Other. No: Pacemaker Amputation: No Fractures: No - *Social History Smoking Status: Never smoker Alcohol Intake: never Alcohol Intake Frequency:: other Substance Use Type: denies use *Occupational Status:: disabled Housing: apartment Household Members: other *Travel in the last 8 weeks: None - Psychiatric History Pschychiatric History:: Reports:: Anxiety, Depression Family Hx:: Coronary Artery Disease, Heart Attack
--- NOTE | 2020-02-12 15:06 | IR_ITS ---
PROCEDURE: IR FLUORO GUIDED NEEDLE PLACE CLINICAL INDICATION: Catheter placement COMPARISON: No exams were available for comparison FINDINGS: Fluoro time 23 seconds IMPRESSION: Status post MediPort catheter insertion with fluoroscopy Dictated by: Keyon Chen MD 02/12/2020 15:22 Electronically signed by Keyon Chen MD in [place] 02/12/2020 15:22
--- NOTE | 2020-02-12 15:12 | P.OP_ITS ---
Date of procedure: 02/12/20 Pre-op Diagnosis:: Need for reliable venous access Post-op Diagnosis:: Same Procedure performed:: Placement of single-lumen central venous catheter and left subclavian vein with tunneled subcutaneous reservoir port (PowerPort) Surgeon:: Luis Alberto Norris MD [employer]LECT[employer]:: Colin Koenig Anesthesia: LMA Estimated blood loss (mL): 10 Clinical Note:: Patient is a 64-year-old female referred by Ezio Fong MD for port placement. She has several medical conditions and often requires medical care necessitating blood draws and intravenous fluids or medications. She states that obtaining peripheral venous access is extremely difficult in her. She had previously had surgery and required central line placement for her surgery. Therefore, she was referred for surgical placement of venous access port for poor peripheral venous access. Operative findings:: Unremarkable venous anatomy Operative note:: Patient was taken to the operating room. She was positioned in a supine position. Adequate anesthesia was achieved via LMA. Upper chest and neck bilaterally was prepped and draped in the standard surgical fashion. Attention was turned to the left subclavian region. She was positioned in Trendelenburg position. Local anesthetic was infiltrated. 18-gauge needle was inserted near the deltopectoral groove manipulating the needle posterior to the left clavicle. Aspiration revealed good return of venous blood. Guidewire was inserted. Fluoroscopy was used to confirm appropriate position of the guidewire. Small incision was made at the guidewire insertion site. Subcutaneous tissues were dilated with the dilator/breakaway sheath combo. Guidewire and dilator were removed. Single-lumen catheter was then inserted through the sheath which was then broken away and removed. Once again C-arm fluoroscopy was used to confirm appropriate position of the catheter. Fluoroscopy was used to manipulate the tip near the atrial caval junction. Skin was marked with a skin marker for planned subcutaneous tunneling. Local anesthetic was infiltrated for subcutaneous tiling and for subcutaneous reservoir pocket. Incision was made. Subcutaneous reservoir pocket was created with electrocautery. Catheter was tunneled subcutaneously. It was cut to the appropriate length. The reservoir port was secured to the catheter and the port was secured in the subcutaneous pocket with several interrupted 2-0 Vicryl sutures. The port aspirated and flushed without difficulty with saline. It was then flushed with heparinized saline. The subdermal tissues were closed with running 2-0 Vicryl. Both incisions were closed with 4-0 Monocryl in a subcuticular fashion. Clean dry sterile dressings were applied. Condition: stable Disposition: PACU Complications:: None immediately apparent
--- NOTE | 2020-02-12 15:13 | HMH.ANESI ---
[facility] Anesthesia Record Part I Intake, IV Amount: 600 Estimated blood loss (mL): 1 Urine output (mL): 0 Blood Products used (#): none Blood Pressure: 125/70 SaO2: 100 Pulse Rate: 64 Respiratory Rate: 20 Temperature: 97.7 F Patient is:: Awake, Stable Stable to PACU at:: 15:10
--- NOTE | 2020-02-12 15:20 | XR_ITS ---
PROCEDURE: XR CHEST PORTABLE CLINICAL HISTORY: port-a-cath placement-left side, verify placement COMPARISON: CHESTWO CT chest wo con from 10/26/2018 XR CHEST 2V from 07/03/2019 XR CHEST AP from 11/29/2019 XR CHEST 2V from 01/26/2020 FINDINGS: Left subclavian Port-A-Cath is present. The tip is in good position in the region of the SVC. There is no evidence of pneumothorax. Mild cardiomegaly without failure. Mild atelectatic change left lung base. No acute bony abnormalities. IMPRESSION: Status post left subclavian Port-A-Cath placement without evidence of pneumothorax Dictated by: Keyon Chen MD 02/12/2020 16:33 Electronically signed by Keyon Chen MD in [place] 02/12/2020 16:33
--- NOTE | 2020-02-12 16:07 | PC.NURSE ---
1527-radiology at bedside 1535-drinking hamilton mist w/out difficulty 1555-detailed report called to Santhosh,RN, pt reports pain is easing-appears to be resting easier, vss 1559-pt transported to post op via stretcher with shakira rails up and left in care of DURAN Hall with bed locked in lowest position, vss, pt stable
--- NOTE | 2020-02-12 16:12 | SUR.PHASEI ---
1527-radiology at bedside in pacu 1530-pt drinking hamilton mist w/out difficulty, denies nausea 1555-detailed report called to RafaelRN, pt reports pain is easing-appears to be resting easier,vss 1559-pt transported to post op via stretcher with shakira rails up and left in care of DURAN Hall with bed locked in lowest position, vss, pt stable
--- NOTE | 2020-02-13 07:09 | HMH.ANESII ---
[facility] Anesthesia Record Part II Discharge Time: 15:40 Destination: Surgical Day Care (OP Surgery) PACU nurse assessment reviewed?: Yes Patient Condition:: Good Anesthesia Complications:: None Swallowing reflex intact?: Yes Cyanosis?: No Blood Pressure: 130/82 Pulse Rate: 60 Temperature: 98.0 F Mental Status: Alert & Oriented Pain level:: 5 Nausea and/or vomitting:: None Intake, IV Amount: 20
[2020-02-13 07:10] VITALS: BP 130/82; PULSE 60; TEMP 36.7
== END 2020-02-12 16:30 | disposition home or self-care (01) ==
LOC: OR 08:51
PROVIDERS: PCP Emergency Medicine; Visit Provider Surgery
PROC: (CPT 36561; principal; 2020-02-12 10:30)
DX: Z45.2 Encounter for adjustment and management of vascular access device (principal); K21.9 Gastro-esophageal reflux disease without esophagitis; I11.0 Hypertensive heart disease with heart failure; I50.9 Heart failure, unspecified; E78.5 Hyperlipidemia, unspecified; F41.9 Anxiety disorder, unspecified; N18.9 Chronic kidney disease, unspecified; M19.90 Unspecified osteoarthritis, unspecified site; Z87.19 Personal history of other diseases of the digestive system; Z88.5 Allergy status to narcotic agent; Z88.8 Allergy status to other drugs, medicaments and biological substances; Z88.6 Allergy status to analgesic agent; Z91.041 Radiographic dye allergy status; Z79.82 Long term (current) use of aspirin; Z79.899 Other long term (current) drug therapy
CPT/HCPCS: 36561; 77001; 71045; 77002; 96374; C1788; J1642

== ENCOUNTER 2020-02-15 12:21 | Emergency (ER) | payer OTHER, SELFPAY ==
[2020-02-15 12:25] VITALS: BP 111/80; PULSE 75; RESP 18; TEMP 36.7; O2SAT 95; BMI 27.1
--- NOTE | 2020-02-15 13:08 | PC.NURSE ---
NAZIA FRENCH at
--- NOTE | 2020-02-15 13:16 | HMH.EDSKAF ---
ED Disposition Clinical Impression: Contact dermatitis Disposition: Home, Self-Care Condition on Discharge: Good Instructions: Contact Dermatitis Prescriptions: Triamcinolone Acetonide 15 gm TP TID 8 Days #30 cream..g. Transmission Status: Pending to [facility] Referrals: Reuben Fong MD [Primary Care Provider] - - Critical Care Critical Care Time: No Attestation: On 02/15/20, the high probability of a clinically significant, sudden or life threatening deterioration of the following system(s) required my full and direct attention, intervention and personal management. The time I documented below is in addition to time spent performing reported procedures but includes the following listed in this critical care notation. Medical Decision Making - Medical Records Medical records reviewed: Yes: I reviewed the patient's medical records. - Grant Inquiry Pt receiving controlled substance: No Vital Signs: 02/15/20 12:25 Temperature 98.0 F Temperature Source Oral Pulse Rate [Right Radial] 75 Respiratory Rate 18 Blood Pressure [Right Arm] 111/80 Blood Pressure Mean [Right Arm] 90 Blood Pressure Source [Right Arm] Automatic Cuff Blood Pressure Position [Right Arm] Sitting 02 Sat by Pulse Oximetry 95 Oxygen Delivery Method Room Air - Lab Data Lab results reviewed: Yes: I reviewed the patient's lab results. Skin/Abscess/FB HPI - General Chief complaint: Skin/Abscess/Foreign Body Stated complaint: post-op 02/11 Pain at port Time Seen by Provider: 02/15/20 13:16 Mode of Arrival: Ambulatory Source of Information: Patient Limitations: No Limitations Description of Symptoms (Recalled from ER Triage Doc. by RN): Pt reports port placement on monday per Dr. Ash. Pt reports began having blistering around her dressing lastnight. 2 large blisters noted around the outside of tegaderm dressing. - History of Present Illness complaint: rash Onset (ago): hour(s) Tetanus up to date: yes Location: generalized Severity: mild Severity scale (1-10): 3 Quality: stabbing Relieving factors: none Exacerbating factors: none Context: none Treatments prior to arrival: none - Related Data Home Medications Medication Instructions Recorded Confirmed levetiracetam 500 mg tablet 500 mg PO DAILY tab 05/24/19 02/12/20 Acetaminophen [Acetaminophen 325mg See Rx Instructions .ROUTE .COMPLEX 08/03/19 02/12/20 tab] pantoprazole 40 mg tablet,delayed 1 tab PO DAILY tab 09/13/19 02/12/20 release Duloxetine HCl [Cymbalta] See Rx Instructions .ROUTE .COMPLEX 11/21/19 02/12/20 Escitalopram Oxalate See Rx Instructions .ROUTE .COMPLEX 11/21/19 02/12/20 Nitrofurantoin Monohyd/M-Cryst 100 mg PO BID 11/21/19 02/12/20 [Nitrofurantoin [place]-Mcr 100 mg] Previous Rx's Medication Instructions Recorded gabapentin 100 mg capsule 100 mg PO TID #90 cap 07/09/19 metoprolol succinate 25 mg 25 mg PO DAILY #90 tab 10/07/19 tablet,extended release 24 hr aspirin 81 mg tablet,delayed 81 mg PO DAILY #30 tab 10/28/19 release clonazepam 0.5 mg tablet 0.5 mg PO TID #90 tab 02/04/20 hydrocodone 7.5 mg-acetaminophen 1 tab PO QID PRN #120 tab 02/04/20 325 mg tablet tramadol 50 mg tablet 50 mg PO BID PRN #60 tab 02/04/20 ondansetron HCl 4 mg tablet 4 mg PO Q8H 10 Days #30 tab 02/13/20 Triamcinolone Acetonide 15 gm TP TID 8 Days #30 cream..g. 02/15/20 Allergies Allergy/AdvReac Type Severity Reaction Status Date / Time codeine [CODEINE] Allergy Unknown Verified 02/04/20 13:45 ibuprofen [IBUPROFEN] Allergy Unknown Verified 02/04/20 13:45 Iodinated Contrast Media Allergy Unknown Verified 02/04/20 13:45 [IODINATED CONTRAST MEDIA - IV DYE] morphine [MORPHINE] Allergy Unknown Verified 02/04/20 13:45 prednisone [PREDNISONE] Allergy Unknown Verified 02/04/20 13:45 prochlorperazine Allergy Unknown Verified 02/04/20 13:45 [PROCHLORPERAZINE] promethazine [From PHENERGAN] Allergy Unknown Verified 06
[2020-02-15 13:37] VITALS: BP 117/82; PULSE 75; RESP 18; TEMP 36.7; O2SAT 100
== END 2020-02-15 13:38 | disposition home or self-care (01) ==
PROVIDERS: Emergency Provider Family Medicine; PCP Emergency Medicine
DX: L25.9 Unspecified contact dermatitis, unspecified cause (principal); G89.18 Other acute postprocedural pain; I10 Essential (primary) hypertension; F41.8 Other specified anxiety disorders; K21.9 Gastro-esophageal reflux disease without esophagitis; E78.5 Hyperlipidemia, unspecified; G43.709 Chronic migraine without aura, not intractable, without status migrainosus; E03.9 Hypothyroidism, unspecified; Z88.5 Allergy status to narcotic agent; Z88.8 Allergy status to other drugs, medicaments and biological substances; Z79.899 Other long term (current) drug therapy
CPT/HCPCS: 99281

== ENCOUNTER 2020-02-16 20:02 | Emergency (ER) | payer OTHER, SELFPAY ==
--- NOTE | 2020-02-16 20:14 | PC.NURSE ---
pt demanded to speak with physician without nursing present. this nurse stood outside of room. patient was offered a toradol injection for her blisters pain secondary to her port placement. pt refused. after several minutes of conversation informed her that we weren't going to access her port to give her a pain shot. she said can i get what i usually get (morphine or dilaudid) ; after more conversation md agreed to give her an IM injection of Morphine. vss. emv 15
[2020-02-16 20:19] VITALS: BP 130/81; PULSE 75; RESP 16; TEMP 37.1; O2SAT 98; BMI 28.3
--- NOTE | 2020-02-16 20:24 | HMH.EDGENADL ---
ED Disposition Clinical Impression: Post-op pain Disposition: Home, Self-Care Condition on Discharge: Good Instructions: DI for Acute Pain -- Adult Additional Instructions: see surg for follow up Referrals: Reuben Fong MD [Primary Care Provider] - - Critical Care Critical Care Time: No Attestation: On 02/16/20, the high probability of a clinically significant, sudden or life threatening deterioration of the following system(s) required my full and direct attention, intervention and personal management. The time I documented below is in addition to time spent performing reported procedures but includes the following listed in this critical care notation. Medical Decision Making - Medical Records Medical records reviewed: Yes: I reviewed the patient's medical records. - Grant Inquiry Pt receiving controlled substance: No Vital Signs: 02/16/20 20:19 Temperature 98.7 F Temperature Source Oral Pulse Rate [Right Brachial] 75 Respiratory Rate 16 Blood Pressure [Right Arm] 130/81 Blood Pressure Mean [Right Arm] 97 Blood Pressure Source [Right Arm] Automatic Cuff Blood Pressure Position [Right Arm] Sitting 02 Sat by Pulse Oximetry 98 Oxygen Delivery Method Room Air General Adult HPI - General Chief complaint: PAIN Stated complaint: blisters on chest around surgery site Time Seen by Provider: 02/16/20 20:24 Mode of Arrival: Family Vehicle Source of Information: Patient, Medical Record Limitations: No Limitations Description of Symptoms (Recalled from ER Triage Doc. by RN): requesting pain medicine for blisters that have formed secondary to dressings placed over her newly formed port access; pt is currently receiving treatment by the group that placed the port,including oral pain meds and ointment. staes she cannot sleep and needs stronger pain management. - History of Present Illness HPI narrative: recent port placed with blisters from dressing and has pain assoc with procedure - no sob or other c/o Onset (ago): day(s) Severity: moderate Associated symptoms: denies other symptoms Treatments prior to arrival: none - Related Data Home Medications Medication Instructions Recorded Confirmed levetiracetam 500 mg tablet 500 mg PO DAILY tab 05/24/19 02/12/20 Acetaminophen [Acetaminophen 325mg See Rx Instructions .ROUTE .COMPLEX 08/03/19 02/12/20 tab] pantoprazole 40 mg tablet,delayed 1 tab PO DAILY tab 09/13/19 02/12/20 release Duloxetine HCl [Cymbalta] See Rx Instructions .ROUTE .COMPLEX 11/21/19 02/12/20 Escitalopram Oxalate See Rx Instructions .ROUTE .COMPLEX 11/21/19 02/12/20 Nitrofurantoin Monohyd/M-Cryst 100 mg PO BID 11/21/19 02/12/20 [Nitrofurantoin [place]-Mcr 100 mg] Previous Rx's Medication Instructions Recorded gabapentin 100 mg capsule 100 mg PO TID #90 cap 07/09/19 metoprolol succinate 25 mg 25 mg PO DAILY #90 tab 10/07/19 tablet,extended release 24 hr aspirin 81 mg tablet,delayed 81 mg PO DAILY #30 tab 10/28/19 release clonazepam 0.5 mg tablet 0.5 mg PO TID #90 tab 02/04/20 hydrocodone 7.5 mg-acetaminophen 1 tab PO QID PRN #120 tab 02/04/20 325 mg tablet tramadol 50 mg tablet 50 mg PO BID PRN #60 tab 02/04/20 ondansetron HCl 4 mg tablet 4 mg PO Q8H 10 Days #30 tab 02/13/20 Triamcinolone Acetonide 15 gm TP TID 8 Days #30 cream..g. 02/15/20 Allergies Allergy/AdvReac Type Severity Reaction Status Date / Time codeine [CODEINE] Allergy Unknown Verified 02/04/20 13:45 ibuprofen [IBUPROFEN] Allergy Unknown Verified 02/04/20 13:45 Iodinated Contrast Media Allergy Unknown Verified 02/04/20 13:45 [IODINATED CONTRAST MEDIA - IV DYE] morphine [MORPHINE] Allergy Unknown Verified 02/04/20 13:45 prednisone [PREDNISONE] Allergy Unknown Verified 02/04/20 13:45 prochlorperazine Allergy Unknown Verified 02/04/20 13:45 [PROCHLORPERAZINE] promethazine [From PHENERGAN] Allergy Unknown Verified 02/04/20 13:45 cephalexin [From Keflex] Allergy Ve
[2020-02-16 20:55] VITALS: BP 138/81; PULSE 70; RESP 16; TEMP 37.1; O2SAT 98
== END 2020-02-16 21:00 | disposition home or self-care (01) ==
PROVIDERS: Emergency Provider Emergency Medicine; PCP Emergency Medicine
DX: L08.9 Local infection of the skin and subcutaneous tissue, unspecified (principal); G89.18 Other acute postprocedural pain; F41.8 Other specified anxiety disorders; K21.9 Gastro-esophageal reflux disease without esophagitis; E78.5 Hyperlipidemia, unspecified; I10 Essential (primary) hypertension; G43.709 Chronic migraine without aura, not intractable, without status migrainosus
CPT/HCPCS: 96372; 99281

== ENCOUNTER 2020-03-23 14:53 | Outpatient (CLI) | payer OTHER, SELFPAY | END 2020-03-23 15:15 | disposition home or self-care (01) | LOC: INF 14:53 | PROVIDERS: Visit Provider Emergency Medicine | DX: Z45.2 Encounter for adjustment and management of vascular access device (principal) | CPT/HCPCS: 96523; J1642 ==

== ENCOUNTER 2020-03-29 00:10 | Emergency (ER) | payer OTHER, SELFPAY ==
--- NOTE | 2020-03-29 00:19 | XR_ITS ---
PROCEDURE: XR HAND RT MIN 3V CLINICAL INDICATION: furniture vs hand COMPARISON: No exams were available for comparison FINDINGS: No fracture or dislocation. No lytic or blastic change. There is normal mineralization. The joint spaces are well-preserved. No significant degenerative/arthritic changes. No erosive changes evident. There is mild generalized osteopenia. Other findings:None. IMPRESSION: No acute findings. Dictated by: Dr. Jose Rafael Corado MD 03/29/2020 09:12 Dr. Jose Rafael Corado MD in [place] 03/29/2020 09:12
--- NOTE | 2020-03-29 00:19 | XR_ITS ---
PROCEDURE: XR WRIST RT MIN 3V CLINICAL INDICATION: furniture vs hand COMPARISON: No exams were available for comparison FINDINGS: The distal radius and ulna appear intact. The carpal bones all appear intact. The soft tissues are normal. IMPRESSION: No acute findings. Dictated by: Dr. Jose Rafael Corado MD 03/29/2020 09:13 Dr. Jose Rafael Corado MD in [place] 03/29/2020 09:13
[2020-03-29 00:21] VITALS: BP 130/76; PULSE 87; RESP 19; TEMP 36.9; O2SAT 98; BMI 27.6
--- NOTE | 2020-03-29 00:35 | HMH.EDGENADL ---
ED Disposition Clinical Impression: Sprain of hand, right Qualifiers: Encounter type: initial encounter Qualified Code(s): S63.91XA - Sprain of unspecified part of right wrist and hand, initial encounter Disposition: Home, Self-Care Condition on Discharge: Good Instructions: DI for Hand Injury Additional Instructions: use meds and see pcp for follow up Referrals: Reuben Fong MD [Primary Care Provider] - - Critical Care Critical Care Time: No Attestation: On 03/29/20, the high probability of a clinically significant, sudden or life threatening deterioration of the following system(s) required my full and direct attention, intervention and personal management. The time I documented below is in addition to time spent performing reported procedures but includes the following listed in this critical care notation. Medical Decision Making - Medical Records Medical records reviewed: Yes: I reviewed the patient's medical records. - Grant Inquiry Pt receiving controlled substance: No Vital Signs: 03/29/20 00:21 Temperature 98.5 F Temperature Source Oral Pulse Rate [Left] 87 Respiratory Rate 19 Blood Pressure [Right Arm] 130/76 Blood Pressure Mean [Right Arm] 94 Blood Pressure Source [Right Arm] Automatic Cuff Blood Pressure Position [Right Arm] Sitting 02 Sat by Pulse Oximetry 98 Oxygen Delivery Method Room Air Orders (Tests/Meds): ORDERS Category Date Time Status XR hand RT min 3V Stat Exams 03/29/20 00:19 Ordered XR wrist RT min 3V Stat Exams 03/29/20 00:19 Ordered - Radiology Data #1 Image(s): Wrist, Hand Image Reviewed: Yes I reviewed the patient's radiology image Preliminary Findings: No Fracture Seen General Adult HPI - General Chief complaint: PAIN Stated complaint: AO 03/28/20 23:00 Injury right hand Time Seen by Provider: 03/29/20 00:30 Mode of Arrival: Ambulatory Source of Information: Patient, Medical Record Limitations: No Limitations Description of Symptoms (Recalled from ER Triage Doc. by RN): Pt states that she was moving furniture and the couch lef fell on her right hand. - History of Present Illness HPI narrative: acute rt hand injury Onset (ago): hour(s) Location: upper extremity Severity: moderate Quality: dull Associated symptoms: denies other symptoms Treatments prior to arrival: none - Related Data Home Medications Medication Instructions Recorded Confirmed levetiracetam 500 mg tablet 500 mg PO DAILY tab 05/24/19 03/23/20 Acetaminophen [Acetaminophen 325mg See Rx Instructions .ROUTE .COMPLEX 08/03/19 03/23/20 tab] Duloxetine HCl [Cymbalta] See Rx Instructions .ROUTE .COMPLEX 11/21/19 03/23/20 Escitalopram Oxalate See Rx Instructions .ROUTE .COMPLEX 11/21/19 03/23/20 Nitrofurantoin Monohyd/M-Cryst 100 mg PO BID 11/21/19 03/23/20 [Nitrofurantoin [place]-Mcr 100 mg] Triamcinolone Acetonide 15 gm TP TID 03/23/20 03/23/20 ondansetron HCL [Ondansetron HCl] See Rx Instructions .ROUTE .COMPLEX 03/23/20 03/23/20 Previous Rx's Medication Instructions Recorded gabapentin 100 mg capsule 100 mg PO TID #90 cap 07/09/19 metoprolol succinate 25 mg 25 mg PO DAILY #90 tab 10/07/19 tablet,extended release 24 hr aspirin 81 mg tablet,delayed 81 mg PO DAILY #30 tab 10/28/19 release clonazepam 0.5 mg tablet 0.5 mg PO TID #90 tab 02/04/20 hydrocodone 7.5 mg-acetaminophen 1 tab PO QID PRN #120 tab 02/04/20 325 mg tablet tramadol 50 mg tablet 50 mg PO BID PRN #60 tab 02/04/20 pantoprazole 40 mg tablet,delayed 40 mg PO DAILY #90 tab 02/25/20 release Allergies Allergy/AdvReac Type Severity Reaction Status Date / Time codeine [CODEINE] Allergy Unknown Verified 03/23/20 15:05 ibuprofen [IBUPROFEN] Allergy Unknown Verified 03/23/20 15:05 Iodinated Contrast Media Allergy Unknown Verified 03/23/20 15:05 [IODINATED CONTRAST MEDIA - IV DYE] morphine [MORPHINE] Allergy Unknown Verified 03/23/20 15:05 prednisone [PREDNISONE] A
[2020-03-29 00:55] VITALS: BP 130/76; PULSE 87; RESP 19; TEMP 36.9; O2SAT 98
== END 2020-03-29 00:55 | disposition home or self-care (01) ==
PROVIDERS: Emergency Provider Emergency Medicine; PCP Emergency Medicine
DX: S63.91XA Sprain of unspecified part of right wrist and hand, initial encounter (principal); W22.8XXA Striking against or struck by other objects, initial encounter; Y92.019 Unspecified place in single-family (private) house as the place of occurrence of the external cause; F41.8 Other specified anxiety disorders; K21.9 Gastro-esophageal reflux disease without esophagitis; E78.5 Hyperlipidemia, unspecified; I10 Essential (primary) hypertension; E03.9 Hypothyroidism, unspecified; Z88.1 Allergy status to other antibiotic agents; Z88.5 Allergy status to narcotic agent; Z79.899 Other long term (current) drug therapy; Z90.710 Acquired absence of both cervix and uterus; Z90.49 Acquired absence of other specified parts of digestive tract
CPT/HCPCS: 29125; 73110; 73130; 99283

== ENCOUNTER → 2020-05-11 19:26 | Outpatient (CLI) | payer OTHER, SELFPAY ==
[2020-05-11 20:21] LABS: Anion Gap 8.9 mEq/L (5-15); Blood Urea Nitrogen 14 mg/dl (7-17); Calcium 9.3 mg/dl (8.4-10.2); Carbon Dioxide 27 mmol/L (22.0-30.0); Chloride 107 mmol/L (98-107); Estimated Glomerular Filt Rate 101 ml/min (>60); GFR (African American) 122 ML/MIN (>60); Glucose 117 mg/dl (74-100); Potassium 3.9 mmoL/L (3.5-5.1); Sodium 139 mmol/L (136-145)
[2020-05-11 20:30] LABS: NT Pro Brain Natriuretic Pep. 164 pg/mL (0-125)
[2020-05-11 20:52] LABS: Thyroid Stimulating Hormone 0.81 uIU/mL (0.465-4.68)
== END ==
PROVIDERS: Visit Provider Emergency Medicine
DX: R07.9 Chest pain, unspecified (principal)
CPT/HCPCS: 80048; 83880; 84439; 84443

== ENCOUNTER 2020-05-12 12:15 | Outpatient (CLI) | payer OTHER, SELFPAY | END 2020-05-12 12:30 | disposition home or self-care (01) | LOC: INF 12:15 | PROVIDERS: Visit Provider Emergency Medicine | DX: Z45.2 Encounter for adjustment and management of vascular access device (principal) | CPT/HCPCS: 96523; J1642 ==

== ENCOUNTER → 2020-05-18 14:11 | Outpatient (CLI) | payer OTHER, SELFPAY ==
--- NOTE | 2020-05-18 | CA_ITS ---
APPROVED REPORT EXAM: Comprehensive 2D, Doppler, and color-flow Echocardiogram Dairy Scientist: Kelly Posey RT(R) Ht: 5 ft 4 in Wt: 158lbs BSA: 1.77 BP: 138/84 mmHg Indications: HTN, SOB, hyperlipidemia, family history of HD, CHF, edema 2D Dimensions LVOT 1.81 cm (M/F) 1.5-2.5 M-Mode Dimensions RVDd 2.07 cm (0.9-2.6) LVDd 5.21 cm (3.5-5.7) LVDs 3.80 cm (3.5-5.7) IVSd 0.87 cm (0.6-1.1) PWd 0.83 cm (0.6-1.1) EF (Teich) 52.30% FS 27.10% EDV (Teich) 130.10 mL ESV (Teich) 62.00 mL LV Diastology E/A Ratio 0.82 Mitral Valve MV A Velocity 81.00 (40-130 cm/s) Left Ventricle Left atrium is normal size, left ventricle is normal size, mild concentric left ventricular hypertrophy, visually estimated ejection fraction 55% with no regional wall motion abnormality, grade 1 diastolic dysfunction seen without tissue Doppler evidence of raise left atrial pressure. Right Ventricle Right atrium and right ventricular qualitatively mildly enlarged with normal contractility. Atria Intra-atrial septum is intact, there appears to be flow across the interatrial septum raising the concerns for presence of intracardiac shunt, a repeat study with saline contrast study is recommended. Aortic Valve Aortic valve is thickened and calcified leaflet chordae display good mobility, there is no aortic stenosis or aortic insufficiency. Mitral Valve Mitral valve is grossly normal, there is mild mitral regurgitation. Tricuspid Valve Tricuspid valve is grossly normal, there is mild tricuspid regurgitation. Pulmonic Valve Pulmonic valve is poorly visualized. Great Vessels Aortic root is normal size. Pericardium No significant pericardial effusion noted. Conclusion 1. Biatrial enlargement, normal left ventricular size, mild concentric left ventricular hypertrophy, visually estimated ejection fraction 55% with no regional wall motion abnormality, grade 1 diastolic dysfunction seen without tissue Doppler evidence of raise left atrial pressure. 2. Mildly enlarged right ventricle with normal contractility, 3. There appears to be flow across the interatrial septum, a repeat study with agitated saline contrast is recommended. 4. Mild mitral and tricuspid regurgitation. 5. No significant pericardial effusion noted. Electronically signed by : Marco Dennis, 05/18/2020 21:11:42
== END ==
PROVIDERS: PCP Emergency Medicine; Visit Provider Emergency Medicine
DX: R06.02 Shortness of breath (principal); R60.0 Localized edema
CPT/HCPCS: 93306

== ENCOUNTER 2020-06-09 11:45 | Outpatient (CLI) | payer OTHER, SELFPAY | END 2020-06-09 11:53 | disposition home or self-care (01) | LOC: INF 11:45 | PROVIDERS: Visit Provider Emergency Medicine | DX: Z45.2 Encounter for adjustment and management of vascular access device (principal) | CPT/HCPCS: 96523; J1642 ==

== ENCOUNTER 2020-06-20 11:46 | Emergency (ER) | payer OTHER, SELFPAY ==
[2020-06-20 11:54] VITALS: BP 164/93; PULSE 64; RESP 16; TEMP 36.7; O2SAT 98; BMI 27.1
--- NOTE | 2020-06-20 11:59 | PC.NURSE ---
notified rad of xray order, spoke with Dionne
--- NOTE | 2020-06-20 12:15 | CT_ITS ---
PROCEDURE: CT CHEST WO CON CLINICAL INDICATION: pain, fall Posttraumatic pain COMPARISON: CT CHESTWO CT chest wo con from 10/26/2018 TECHNIQUE: Axial images obtained with sagittal and coronal reformats. All CT scans at the facility use one or more dose reduction, viz: automated exposure control, ma/kV adjustment per patient size (including targeted exams where dose is matched to indication, i.e. head), or iterative reconstruction technique. FINDINGS: There are small mediastinal lymph nodes. Mediastinal and vascular evaluation is limited without IV contrast especially in the setting of trauma. Atelectatic changes are present in the right middle lobe and lung bases posteriorly. There is patchy ground-glass attenuation within the lingula and left lower lobe. No effusions or infiltrates. Left subclavian MediPort catheter is present with tip in the region the SVC. No effusions. No lobar consolidation. There has been a prior cholecystectomy. Nondisplaced fractures involve the right 4th, 5th, and 6th ribs anteriorly and the left 4th 5th and 6th ribs anteriorly. No evidence of pneumothorax. There is some subcutaneous density noted in the medial aspect of both breasts and may be related to contusion. IMPRESSION: Nondisplaced bilateral 4th 5th and 6th rib fractures with atelectatic changes. Dictated by: Keyon Chen MD 06/20/2020 18:23 Keyon Chen MD in [facility] 06/20/2020 18:23
--- NOTE | 2020-06-20 12:16 | PC.NURSE ---
ER gave verbal orders for pt
--- NOTE | 2020-06-20 12:18 | PC.NURSE ---
pt to rad RT notified of Incentive spirometer order.
--- NOTE | 2020-06-20 13:00 | PC.NURSE ---
PT RESTING FAMILY AT BEDSIDE
--- NOTE | 2020-06-20 14:08 | HMH.EDGENADL ---
ED Disposition Clinical Impression: Closed traumatic nondisplaced fracture of multiple ribs Qualifiers: Encounter type: initial encounter Laterality: unspecified laterality Qualified Code(s): S22.49XA - Multiple fractures of ribs, unspecified side, initial encounter for closed fracture Disposition: Home, Self-Care Condition on Discharge: Good Additional Instructions: You were seen on an emergency basis. It is very important that you follow up with your primary care provider and/or specialist as we discussed within 2 days. All labs and imaging were obtained and interpreted here to rule out life threatening emergencies, but your final results should be reviewed by your primary doctor at your follow up appointment. Please return to the emergency department if any of your symptoms worsen, or if they do not improve as we discussed. Prescriptions: Lidocaine [Lidoderm] 1 each TP DAILY PRN #20 adh..patch PRN Reason: pain Transmission Status: Pending to [facility] Referrals: Reuben Fong MD [Primary Care Provider] - - Critical Care Critical Care Time: No Attestation: On 06/20/20, the high probability of a clinically significant, sudden or life threatening deterioration of the following system(s) required my full and direct attention, intervention and personal management. The time I documented below is in addition to time spent performing reported procedures but includes the following listed in this critical care notation. Medical Decision Making - Medical Records Medical records reviewed: Yes: I reviewed the patient's medical records. - Grant Inquiry Pt receiving controlled substance: No Vital Signs: 06/20/20 11:54 Temperature 98.0 F Temperature Source Oral Pulse Rate [Right Radial] 64 Respiratory Rate 16 Blood Pressure [Right Arm] 164/93 H Blood Pressure Mean [Right Arm] 116 Blood Pressure Source [Right Arm] Automatic Cuff Blood Pressure Position [Right Arm] Sitting 02 Sat by Pulse Oximetry 98 Oxygen Delivery Method Room Air Orders (Tests/Meds): ED MEDICATIONS Discontinued Medications Generic Name Dose Route Start Last Admin Trade Name Freq PRN Reason Stop Dose Admin Oxycodone/Acetaminophen 1 each 06/20/20 12:15 06/20/20 12:56 Oxycodone 5mg W/Apap 325mg Tablet PO 06/20/20 12:16 1 each ONCE ONE Administration ORDERS Category Date Time Status CT chest wo con Stat Cat Scan 06/20/20 12:15 Taken Medical Decision Narrative: 64-year-old female presenting with chest wall pain 1 week after a fall. CT chest without contrast was obtained demonstrating multiple rib fractures that are nondisplaced. No pneumothorax or infiltrate. oxygenating well on room air. No concern for underlying acute cardiac disease. Pain controlled with oxycodone here. She has hydrocodone at home and I will add Lidoderm patches. She was also started on incentive spirometry and will continue this at home and follow-up with PCP. General Adult HPI - General Chief complaint: PAIN Stated complaint: dog attack on 06/16/20 Time Seen by Provider: 06/20/20 12:08 Mode of Arrival: Ambulatory Limitations: No Limitations Description of Symptoms (Recalled from ER Triage Doc. by RN): Pt c/o pain in shakira rib areas and shakira breasts pt reports a fall approx 1 week ago, pt states she was trying to get her dog away from another dog that were fighting. Pt reports pain in with inspiration states she feels like its hard to get a deep breath. - History of Present Illness HPI narrative: 64-year-old female presenting 1 week after a ground-level mechanical fall onto her chest. She has had pain to her chest wall since with difficulty breathing because of it. This is despite taking hydrocodone at home. No head strike or loss of consciousness at that time. No other injury sustained. No fever, chills, cough, shortness of breath but she does have pain with breathing that localizes to her anterior chest wall at the ribs.
[2020-06-20 14:30] VITALS: BP 154/86; PULSE 52; RESP 16; O2SAT 98
[2020-06-20 14:51] VITALS: BP 132/58; PULSE 78; RESP 98; TEMP 36.6
== END 2020-06-20 14:52 | disposition home or self-care (01) ==
PROVIDERS: Emergency Provider Physician Assistant; PCP Emergency Medicine
DX: S22.43XA Multiple fractures of ribs, bilateral, initial encounter for closed fracture (principal); W01.0XXA Fall on same level from slipping, tripping and stumbling without subsequent striking against object, initial encounter; Y92.017 Garden or yard in single-family (private) house as the place of occurrence of the external cause; F41.8 Other specified anxiety disorders; K21.9 Gastro-esophageal reflux disease without esophagitis; E78.5 Hyperlipidemia, unspecified; E03.9 Hypothyroidism, unspecified; N28.9 Disorder of kidney and ureter, unspecified; G43.709 Chronic migraine without aura, not intractable, without status migrainosus; Z79.899 Other long term (current) drug therapy; Z88.5 Allergy status to narcotic agent; Z88.8 Allergy status to other drugs, medicaments and biological substances
CPT/HCPCS: 71250; 99283

== ENCOUNTER → 2020-06-22 10:44 | Outpatient (CLI) | payer OTHER, SELFPAY | PROVIDERS: PCP Emergency Medicine; Visit Provider Internal Medicine Cardiovascular Disease | DX: R07.9 Chest pain, unspecified (principal); R06.02 Shortness of breath ==

== ENCOUNTER → 2020-07-20 12:43 | Outpatient (CLI) | payer OTHER, SELFPAY ==
--- NOTE | 2020-07-20 12:47 | XR_ITS ---
PROCEDURE: XR CHEST 2V CLINICAL HISTORY: cant hardly breath Trouble breathing, shortness of breath COMPARISON: CR XR CHEST AP from 11/29/2019 CR XR CHEST 2V from 01/26/2020 CR XR CHEST PORTABLE from 02/12/[address] CHEST WO CON from 06/20/2020 FINDINGS: The cardiomediastinal silhouette and pulmonary vascularity are within normal limits. MediPort catheter remains in place from left subclavian approach. There is some vague patchy density noted in the right mid to lower lung zone centrally which could be related to an area faint infiltrate. The remaining lungs are clear. No acute bony finding. IMPRESSION: Possible faint infiltrate right lower lobe Dictated by: Keyon Chen MD 07/20/2020 14:30 Keyon Chen MD in [facility] 07/20/2020 14:30
== END ==
PROVIDERS: PCP Emergency Medicine; Visit Provider Emergency Medicine
DX: S22.49XA Multiple fractures of ribs, unspecified side, initial encounter for closed fracture (principal)
CPT/HCPCS: 71046

== ENCOUNTER 2020-07-30 13:00 | Outpatient (CLI) | payer OTHER, SELFPAY | END 2020-07-30 13:20 | disposition home or self-care (01) | LOC: INF 13:00 | PROVIDERS: Visit Provider Emergency Medicine | DX: Z45.2 Encounter for adjustment and management of vascular access device (principal) | CPT/HCPCS: 96523; J1642 ==

== ENCOUNTER → 2020-07-30 13:17 | Outpatient (CLI) | payer OTHER, SELFPAY ==
--- NOTE | 2020-07-30 13:17 | XR_ITS ---
PROCEDURE: XR DEXA AXIAL SKELETON CLINICAL HISTORY: screening COMPARISON: No exams were available for comparison FINDINGS: The right hip BMD is 0.624 with a T-score of -2.5. The left hip BMD is 0.548 with a T-score of -2.7. The lumbar spine BMD is 0.748 with a T-score of -2.7. IMPRESSION: This patient is considered osteoporotic according to the World Health Organization criteria. Fracture risk is high. Treatment is advised. Based on these results a follow-up exam is recommended in 1 year. Dictated by: Keyon Chen MD 07/31/2020 12:36 Keyon Chen MD in [facility] 07/31/2020 12:36
--- NOTE | 2020-07-30 13:17 | MM_ITS ---
PROCEDURE: MM DIG SCREENING MAMM BI W/CAD Digital Breast Tomosynthesis Included CLINICAL INDICATION: screening There is no personal or family history of breast cancer COMPARISON: MG DMSB DIGITAL MAMM-SCREEN BILATERAL from 10/26/2011 TECHNIQUE: Standard CC and MLO images and 3D Tomosynthesis was obtained. R2 CAD reviewed. FINDINGS: Mild fibroglandular densities are seen throughout both breasts. There is an asymmetric nodular density upper-outer quadrant left breast. This may have been present previously but has shown interval increase in size. It does have benign features but recommend the patient return for spot compression view and ultrasound for additional evaluation. There are no suspicious microcalcifications. IMPRESSION: Fibrofatty parenchyma with asymmetric density left breast BI-RAD Category: 0 Need Additional Imaging Evaluation FOLLOW-UP: IMM Immediate Follow-up Recommended (A letter has been sent to the patient regarding results of the study.) Dictated by: Dr. Jose Rafael Corado MD 08/01/2020 07:37 Dr. Jose Rafael Corado MD in [place] 08/01/2020 07:37
== END ==
PROVIDERS: PCP Emergency Medicine; Visit Provider Emergency Medicine
DX: Z12.31 Encounter for screening mammogram for malignant neoplasm of breast (principal); S22.49XA Multiple fractures of ribs, unspecified side, initial encounter for closed fracture; Z78.0 Asymptomatic menopausal state
CPT/HCPCS: 77063; 77067; 77080

== ENCOUNTER 2020-08-04 17:32 | Emergency (ER) | payer OTHER, SELFPAY ==
[2020-08-04 17:33] VITALS: BP 167/81; PULSE 62; RESP 20; TEMP 37.6; O2SAT 98; BMI 27.9
--- NOTE | 2020-08-04 17:43 | HMH.EDGENADL ---
ED Disposition Condition on Discharge: Good - Critical Care Critical Care Time: No <LarryNithin ramesh - Last Filed: 08/04/20 20:11> <Reuben Fong - Last Filed: 08/04/20 20:46> Clinical Impression: Vomiting and diarrhea Abdominal pain Qualifiers: Abdominal location: generalized Qualified Code(s): R10.84 - Generalized abdominal pain Disposition: Home, Self-Care Instructions: DI for Acute Abdominal Pain Additional Instructions: fluids and see pcp for follow up Referrals: Reuben Fong MD [Primary Care Provider] - Attestation: On 08/04/20, the high probability of a clinically significant, sudden or life threatening deterioration of the following system(s) required my full and direct attention, intervention and personal management. The time I documented below is in addition to time spent performing reported procedures but includes the following listed in this critical care notation. Medical Decision Making - Medical Records Medical records reviewed: Yes: I reviewed the patient's medical records. MR Comment: Reviewed recent mammogram result. Recent bone density result. Also noted multiple visits to the emergency department last year for abdominal pain with negative CT scans. - Grant Inquiry Pt receiving controlled substance: No - Lab Data Result diagrams: 08/04/20 18:25 08/04/20 18:25 <GermanNithin mayers - Last Filed: 08/04/20 20:11> - Lab Data Lab results reviewed: Yes: I reviewed the patient's lab results. Result diagrams: 08/04/20 18:25 08/04/20 18:25 <Reuben Fong - Last Filed: 08/04/20 20:46> Vital Signs: 08/04/20 17:33 Temperature 99.6 F Temperature Source Oral Pulse Rate [Radial] 62 Respiratory Rate 20 Blood Pressure [Right Arm] 167/81 H Blood Pressure Mean [Right Arm] 109 Blood Pressure Position [Right Arm] Sitting 02 Sat by Pulse Oximetry 98 Oxygen Delivery Method Room Air - Lab Data Lab Results 08/04/20 18:25: WBC 6.7, RBC 3.73 L, Hgb 10.7 L, Hct 33.8 L, MCV 90.6, MCH 28.6, MCHC 31.6 L, RDW 15.2, Plt Count 212, MPV 9.6, Neut % (Auto) 56.7, Lymph % (Auto) 30.5, [place] % (Auto) 6.1, Eos % (Auto) 6.1, Baso % (Auto) 0.6, Neut # (Auto) 3.8, Lymph # (Auto) 2.0, [place] # (Auto) 0.4, Eos # (Auto) 0.4, Baso # (Auto) 0.0 08/04/20 18:25: Sodium 139, Potassium 3.8, Chloride 104, Carbon Dioxide 31 H, Anion Gap 7.8, BUN 16, Creatinine 0.70, Estimated Creat Clear 66, Estimated GFR 84, Est GFR ( Amer) 102, Glucose 87, Calcium 9.1, Total Bilirubin 0.4, AST 51 H, ALT 37, Alkaline Phosphatase 104, C-Reactive Protein 17.3 H, Total Protein 7.0, Albumin 3.8, Globulin 3.2, Albumin/Globulin Ratio 1.2, Amylase 33, Lipase 53 08/04/20 18:25: ESR 23 08/04/20 18:25: SARS-CoV-2 IgG Ab (Rapid) Negative, SARS-CoV-2 IgM Ab (Rapid) Negative 08/04/20 18:50: Urine Color Yellow, Urine Appearance Clear, Urine pH 7.5, Ur Specific [place] 1.020, Urine Protein Negative, Urine Glucose (UA) Negative, Urine Ketones Negative, Urine Blood Negative, Urine Nitrate Negative, Urine Bilirubin Negative, Urine Urobilinogen 0.2, Ur Leukocyte Esterase Negative, Ur Squamous Epith Cells 3-5 Orders (Tests/Meds): ED MEDICATIONS Discontinued Medications Generic Name Dose Route Start Last Admin Trade Name Freq PRN Reason Stop Dose Admin Hydrocodone Bitart/Acetaminophen 1 tab 08/04/20 18:17 08/04/20 18:18 Hydrocodone/Apap 5/325 Mg Tablet PO 08/04/20 18:18 1 tab ONCE ONE Administration Hydromorphone HCl 2 mg 08/04/20 20:19 08/04/20 20:32 Hydromorphone 2mg/Ml Syringe IV 08/04/20 20:20 2 mg ONCE ONE Administration Ondansetron HCl 4 mg 08/04/20 17:54 08/04/20 18:01 Ondansetron 4mg/2ml Vial IV 08/04/20 17:55 4 mg ONCE ONE Administration Promethazine HCl 25 mg 08/04/20 20:19 08/04/20 20:32 Promethazine Hcl 25mg/Ml 1ml Vial IV 08/04/20 20:20 25 mg ONCE ONE Administration Sodium Chloride 1,000 ml 08/04/20 17:54 08/04/20 18:01 Sodium Chloride 0.9% 1000ml Bag IV 07/15
--- NOTE | 2020-08-04 18:35 | PC.NURSE ---
[facility] is aware of transfer, Pt is laying in bed singing at this time.
[2020-08-04 18:38] LABS: Basophils % 0.6 % (0.1-2.0); Eosinophils # 0.4 K/mm3 (0.0-0.4); Eosinophils % 6.1 % (0.1-12.0); Hematocrit 33.8 % (37.0-47.0); Hemoglobin 10.7 g/dL (12.2-16.2); Lymphocytes % 30.5 % (10-50); Mean Corpuscular HGB Conc 31.6 g/dL (31.8-35.4); Mean Corpuscular Hemoglobin 28.6 pg (27.0-31.2); Mean Corpuscular Volume 90.6 fl (81-99); Mean Platelet Volume 9.6 fl (7.4-10.4); Monocytes # 0.4 K/mm3 (0.1-1.0); Monocytes % 6.1 % (1.7-9.3); Neutrophils # 3.8 K/mm3 (1.8-7.8); Neutrophils % 56.7 % (37.0-80.0); Platelet Count 212 K/mm3 (142-424); Red Blood Count 3.73 M/mm3 (4.20-5.40); Red Cell Distribution Width 15.2 % (11.5-17.5); White Blood Count 6.7 K/mm3 (4.8-10.8)
[2020-08-04 18:46] LABS: Chloride 104 mmol/L (98-107); Potassium 3.8 mmoL/L (3.5-5.1); Sodium 139 mmol/L (136-145)
[2020-08-04 18:48] LABS: Amylase 33 U/L (30-110); Blood Urea Nitrogen 16 mg/dl (7-17); Creatinine Clearance Estimated 66 mL/min (50-200); Estimated Glomerular Filt Rate 84 ml/min (>60); GFR (African American) 102 ML/MIN (>60)
[2020-08-04 18:49] LABS: Alanine Aminotransferase 37 U/L (12-78); Albumin Level 3.8 g/dl (3.5-5.0); Albumin/Globulin Ratio 1.2 (1.1-1.8); Alkaline Phosphatase 104 U/L (38-126); Anion Gap 7.8 mEq/L (5-15); Aspartate Amino Transferase 51 U/L (14-36); Bilirubin,Total 0.4 mg/dl (0.2-1.3); Calcium 9.1 mg/dl (8.4-10.2); Carbon Dioxide 31 mmol/L (22.0-30.0); Globulin 3.2 g/dL (1.3-3.2); Glucose 87 mg/dl (74-100); Lipase 53 U/L (23-300)
[2020-08-04 18:54] LABS: C-Reactive Protein 17.3 mg/L (0-4)
[2020-08-04 19:02] LABS: Coronavirus 19 IgG Antibody Negative (Negative); Coronavirus 19 IgM Antibody Negative (Negative)
[2020-08-04 19:10] LABS: Microscopic, Urine URINE MICROSCOPIC (MICROSCOPIC)
[2020-08-04 19:16] LABS: Appearance,Urine CLEAR (Clear); Bilirubin,Urine Negative (Negative); Blood, Urine Negative (Negative); Color,Urine YELLOW (Yellow); Glucose,Urine (UA) Negative (Negative); Ketones,Urine Negative (Negative); Leukocyte Esterase,Urine Negative (Negative); Nitrate,Urine Negative (Negative); PH,Urine 7.5 (5.0-8.5); Protein,Urine Negative (Negative); Urobilinogen,Urine 0.2 EU/dl (0.2)
[2020-08-04 19:27] LABS: Erythrocyte Sedimentation Rate 23 mm/hr (0-30)
[2020-08-04 19:33] VITALS: BP 157/83; PULSE 71; RESP 16; O2SAT 95
[2020-08-04 20:03] VITALS: BP 161/92; PULSE 67; RESP 16; O2SAT 96
[2020-08-04 20:33] VITALS: BP 155/87; PULSE 66; RESP 16; O2SAT 95
--- NOTE | 2020-08-04 20:46 | INFXCTL.NOTE ---
message left for mercedes, no answer
--- NOTE | 2020-08-04 20:46 | PC.NURSE ---
spoke with hiral, he states he will get someone to pick her up
[2020-08-04 20:58] VITALS: BP 120/91; PULSE 76; RESP 12; TEMP 36.7; O2SAT 98
== END 2020-08-04 21:00 | disposition home or self-care (01) ==
PROVIDERS: Emergency Provider Emergency Medicine; PCP Emergency Medicine
DX: R10.84 Generalized abdominal pain (principal); K21.9 Gastro-esophageal reflux disease without esophagitis; E78.5 Hyperlipidemia, unspecified; I10 Essential (primary) hypertension; Z79.899 Other long term (current) drug therapy; Z01.84 Encounter for antibody response examination; Z88.5 Allergy status to narcotic agent; Z88.8 Allergy status to other drugs, medicaments and biological substances
CPT/HCPCS: 80053; 81001; 82150; 83690; 85025; 85651; 86140; 86328; 96365; 96375; 99283; J2405

== ENCOUNTER → 2020-08-24 12:57 | Outpatient (CLI) | payer OTHER, SELFPAY ==
--- NOTE | 2020-08-24 12:57 | US_ITS ---
PROCEDURE: MM DIG MAMM DX UNILAT LT CAD Digital Breast Tomosynthesis Included CLINICAL INDICATION: abnormal mammo Follow-up abnormal mammogram COMPARISON: MG DMSB DIGITAL MAMM-SCREEN BILATERAL from 10/26/2011 MG MM DIG SCREENING MAMM BI W/CAD from 07/30/2020 US US BREAST LT COMPLETE from 08/24/2020 TECHNIQUE: Standard CC and MLO images and 3D Tomosynthesis was obtained. R2 CAD reviewed. FINDINGS: There is a persistent nodular density within the upper aspect of the left breast measuring approximately 7 mm. This has been likely present dating back to 10/26/2011 but is slightly more prominent. There was a small focal area of asymmetry superior to this region which appear to compress out as fibroglandular tissue. Left breast ultrasound: At 1 o'clock there is a 4 x 2 mm cyst. At 2 o'clock there is a 6 x 5 mm cyst which likely corresponds to the mammographic abnormality. No other abnormalities are evident. IMPRESSION: Left breast abnormality appears to represent a cyst. Recommend six-month follow-up for confirmation. BI-RAD Category: 3 Probably Benign Finding Short Term Follow-up FOLLOW-UP: 6M 6Month Follow-up (A letter has been sent to the patient regarding results of the study.) Dictated by: Keyon Chen MD 08/28/2020 15:23 Keyon Chen MD in [place] 08/28/2020 15:23
== END ==
PROVIDERS: PCP Emergency Medicine; Visit Provider Emergency Medicine
DX: R92.8 Other abnormal and inconclusive findings on diagnostic imaging of breast (principal)
CPT/HCPCS: 76641; 77061; 77065; G0279

== ENCOUNTER → 2020-09-21 18:11 | Outpatient (CLI) | payer OTHER, SELFPAY ==
[2020-09-21 18:47] LABS: Amphetamine/Metha Screen,Urine Negative ng/ml (<1000)
[2020-09-21 18:48] LABS: Barbiturates Screen,Urine Negative ng/ml (<200)
[2020-09-21 18:49] LABS: Benzodiazepines Screen,Urine Positive ng/ml (<200); Cannabinoid Screen,Urine Negative ng/ml (<50)
[2020-09-21 18:50] LABS: Cocaine Screen,Urine Negative ng/ml (<300); Methadone Screen,Urine Negative ng/ml (<300)
[2020-09-21 18:51] LABS: Opiate Screen,Urine Negative ng/ml (<300)
[2020-09-21 18:52] LABS: Phencyclidine Screen,Urine Negative ng/ml (<25)
== END ==
PROVIDERS: Visit Provider Emergency Medicine
DX: Z79.899 Other long term (current) drug therapy (principal)
CPT/HCPCS: 80305

== ENCOUNTER 2020-11-15 21:51 | Emergency (ER) | payer OTHER, SELFPAY ==
[2020-11-15 22:33] VITALS: BP 144/77; PULSE 60; RESP 18; TEMP 37; O2SAT 99; BMI 27.1
[2020-11-15 22:35] VITALS: BMI 27.1
--- NOTE | 2020-11-15 22:35 | CT_ITS ---
PROCEDURE: CT ABDOMEN PELVIS W CON CLINICAL INDICATION: abd pain Left upper quadrant pain, history of Crohn's disease COMPARISON: CT CT ABDOMEN PELVIS WO CON from 05/24/2019 TECHNIQUE: IV Contrast: 75ML Isovue 370 Oral Contrast None Axial images obtained with sagittal and coronal reformats. All CT scans at the facility use one or more dose reduction, viz: automated exposure control, ma/kV adjustment per patient size (including targeted exams where dose is matched to indication, i.e. head), or iterative reconstruction technique. FINDINGS: LOWER THORAX: There are mild atelectatic changes in the lung bases. ABDOMEN & PELVIS: No focal liver lesion. There has been a prior cholecystectomy with intra and extrahepatic biliary ductal dilatation noted. Common bile duct measures up to 9 mm in diameter. There is pancreatic atrophy with mild prominence of the pancreatic duct. The spleen and adrenal glands have an unremarkable appearance. There is mild ectasia of both renal collecting systems. No ureteral calculi. No renal calculi. No intestinal obstruction or free air. Prior appendectomy. There is a mild amount of retained colonic feces. There is a small left inguinal hernia containing fat. There are post hysterectomy changes. Surgical clips are present in the mid pelvic region no evidence of diverticulitis. Postoperative changes anterior abdominal wall at the umbilical area. No acute bony findings. IMPRESSION: 1. Intra and extrahepatic biliary ductal dilatation the which may be due to prior cholecystectomy. MRCP may further evaluate if clinically warranted. 2. Mild amount of retained colonic feces. 3. Small left inguinal hernia Dictated by: Keyon Chen MD 11/16/2020 06:05 Keyon Chen MD in [place] 11/16/2020 06:05
[2020-11-15 22:42] LABS: Basophils % 0.6 % (0.1-2.0); Eosinophils # 0.5 K/mm3 (0.0-0.4); Hematocrit 31.2 % (37.0-47.0); Hemoglobin 9.4 g/dL (12.2-16.2); Lymphocytes # 2.6 K/mm3 (0.7-4.5); Lymphocytes % 37.5 % (10-50); Mean Corpuscular HGB Conc 30.2 g/dL (31.8-35.4); Mean Corpuscular Hemoglobin 26.6 pg (27.0-31.2); Mean Platelet Volume 8.9 fl (7.4-10.4); Monocytes # 0.5 K/mm3 (0.1-1.0); Monocytes % 7.3 % (1.7-9.3); Neutrophils # 3.2 K/mm3 (1.8-7.8); Neutrophils % 47.5 % (37.0-80.0); Platelet Count 307 K/mm3 (142-424); Red Blood Count 3.55 M/mm3 (4.20-5.40); Red Cell Distribution Width 14.7 % (11.5-17.5); White Blood Count 6.8 K/mm3 (4.8-10.8)
[2020-11-15 22:47] LABS: Alanine Aminotransferase 11 U/L (12-78); Albumin Level 3.8 g/dl (3.5-5.0); Albumin/Globulin Ratio 1.3 (1.1-1.8); Alkaline Phosphatase 66 U/L (38-126); Amylase 32 U/L (30-110); Anion Gap 10.5 mEq/L (5-15); Aspartate Amino Transferase 22 U/L (14-36); Bilirubin,Total 0.2 mg/dl (0.2-1.3); Blood Urea Nitrogen 14 mg/dl (7-17); Calcium 8.8 mg/dl (8.4-10.2); Carbon Dioxide 25 mmol/L (22.0-30.0); Chloride 108 mmol/L (98-107); Creatinine Clearance Estimated 63 mL/min (50-200); Estimated Glomerular Filt Rate 72 ml/min (>60); GFR (African American) 87 ML/MIN (>60); Globulin 2.9 g/dL (1.3-3.2); Glucose 92 mg/dl (74-100); Lipase 135 U/L (23-300); Potassium 3.5 mmoL/L (3.5-5.1); Sodium 140 mmol/L (136-145); Total Protein,Serum 6.7 g/dl (6.3-8.2)
--- NOTE | 2020-11-15 22:51 | HMH.EDNVD ---
ED Disposition Clinical Impression: Abdominal pain Qualifiers: Abdominal location: left upper quadrant Qualified Code(s): R10.12 - Left upper quadrant pain Disposition: Home, Self-Care Condition on Discharge: Good Instructions: DI for Acute Abdominal Pain Additional Instructions: see pcp for follow up Referrals: Reuben Fong MD [Primary Care Provider] - - Critical Care Critical Care Time: No Attestation: On 11/15/20, the high probability of a clinically significant, sudden or life threatening deterioration of the following system(s) required my full and direct attention, intervention and personal management. The time I documented below is in addition to time spent performing reported procedures but includes the following listed in this critical care notation. Medical Decision Making - Medical Records Medical records reviewed: Yes: I reviewed the patient's medical records. - Grant Inquiry Pt receiving controlled substance: No Vital Signs: 11/15/20 22:33 Temperature 98.6 F Temperature Source Oral Pulse Rate [Right] 60 Respiratory Rate 18 Blood Pressure [Right Arm] 144/77 H Blood Pressure Mean [Right Arm] 99 Blood Pressure Source [Right Arm] Automatic Cuff Blood Pressure Position [Right Arm] Supine 02 Sat by Pulse Oximetry 99 Oxygen Delivery Method Room Air - Lab Data Lab results reviewed: Yes: I reviewed the patient's lab results. Lab Results 11/15/20 22:20: WBC 6.8, RBC 3.55 L, Hgb 9.4 L, Hct 31.2 L, MCV 88.0, MCH 26.6 L, MCHC 30.2 L, RDW 14.7, Plt Count 307, MPV 8.9, Neut % (Auto) 47.5, Lymph % (Auto) 37.5, [place] % (Auto) 7.3, Eos % (Auto) 7.0, Baso % (Auto) 0.6, Neut # (Auto) 3.2, Lymph # (Auto) 2.6, [place] # (Auto) 0.5, Eos # (Auto) 0.5 H, Baso # (Auto) 0.0, ESR 27 11/15/20 22:20: Sodium 140, Potassium 3.5, Chloride 108 H, Carbon Dioxide 25, Anion Gap 10.5, BUN 14, Creatinine 0.80, Estimated Creat Clear 63, Estimated GFR 72, Est GFR ( Amer) 87, Glucose 92, Calcium 8.8, Total Bilirubin 0.2, AST 22, ALT 11 L, Alkaline Phosphatase 66, C-Reactive Protein 6.0 H, Total Protein 6.7, Albumin 3.8, Globulin 2.9, Albumin/Globulin Ratio 1.3, Amylase 32, Lipase 135, Procalcitonin 0.035 Result diagrams: 11/15/20 22:20 11/15/20 22:20 Orders (Tests/Meds): ED MEDICATIONS Generic Name Dose Route Start Last Admin Trade Name Freq PRN Reason Stop Dose Admin Sodium Chloride 1,000 mls @ 999 mls/hr 11/15/20 22:45 11/15/20 22:42 Sod Chlor 0.9% 1000ml Bag IV 11/15/20 23:45 999 mls/hr .Q1H1M CEM Administration Discontinued Medications Generic Name Dose Route Start Last Admin Trade Name Freq PRN Reason Stop Dose Admin Hydromorphone HCl 1 mg 11/15/20 22:39 11/15/20 22:42 Hydromorphone 2mg/Ml Syringe IV 11/15/20 22:40 1 mg ONCE ONE Administration Iopamidol 75 ml 11/15/20 23:26 11/15/20 23:27 Iopamidol-370 (76%);100ml Bottle IV 11/15/20 23:27 75 ml ONCE ONE Administration Sodium Chloride 10 ml 11/15/20 23:26 11/15/20 23:27 Sodium Chloride 0.9% 10ml Syr (Rad Only) IV 11/15/20 23:27 10 ml ONCE ONE Administration ORDERS Category Date Time Status CT abdomen pelvis w con Stat Cat Scan 11/15/20 22:35 Taken - CT Data CT Scan: Abdomen, Pelvis Time Received: 00:[address] Reviewed: Yes: I have viewed the radiologist's interpretation Preliminary Findings: Normal/NAD Medical Decision Narrative: pt with no acute abd changes and will be seen ar op Nausea/Vomiting/Diarrhea HPI - General Chief complaint: Abdominal Pain Stated complaint: stomach pain Time Seen by Provider: 11/15/20 22:40 Mode of Arrival: Ambulatory Source of Information: Patient, Medical Record Limitations: No Limitations Description of Symptoms (Recalled from ER Triage Doc. by RN): Pt states she has Chronic LUQ pain but is worse tonight from a cyst on her left breast. - History of Present Illness HPI Narrative: acute excerbation of upper abd pain which started earlier today
[2020-11-15 23:06] LABS: Procalcitonin 0.035 ng/mL (0.0-2.0)
[2020-11-15 23:08] LABS: Erythrocyte Sedimentation Rate 27 mm/hr (0-30)
[2020-11-16 00:16] VITALS: BP 163/82; PULSE 64; RESP 14; TEMP 36.6; O2SAT 97
== END 2020-11-16 00:25 | disposition home or self-care (01) ==
PROVIDERS: Emergency Provider Emergency Medicine; PCP Emergency Medicine
DX: R10.12 Left upper quadrant pain (principal); F41.8 Other specified anxiety disorders; K21.9 Gastro-esophageal reflux disease without esophagitis; E78.5 Hyperlipidemia, unspecified; I50.9 Heart failure, unspecified; I10 Essential (primary) hypertension; Z79.899 Other long term (current) drug therapy; Z88.1 Allergy status to other antibiotic agents; Z88.5 Allergy status to narcotic agent; Z88.8 Allergy status to other drugs, medicaments and biological substances
CPT/HCPCS: 74177; 80053; 82150; 83690; 84145; 85025; 85651; 86140; 96375; 96376; 99283; J1642; Q9967

== ENCOUNTER → 2020-11-16 15:28 | Outpatient (CLI) | payer OTHER, SELFPAY ==
[2020-11-16 15:45] LABS: Phencyclidine Screen,Urine Negative ng/ml (<25)
[2020-11-16 15:59] LABS: Amphetamine/Metha Screen,Urine Negative ng/ml (<1000)
[2020-11-16 16:00] LABS: Barbiturates Screen,Urine Negative ng/ml (<200); Benzodiazepines Screen,Urine Positive ng/ml (<200)
[2020-11-16 16:01] LABS: Cannabinoid Screen,Urine Negative ng/ml (<50)
[2020-11-16 16:02] LABS: Cocaine Screen,Urine Negative ng/ml (<300); Methadone Screen,Urine Negative ng/ml (<300)
[2020-11-16 16:03] LABS: Opiate Screen,Urine Positive ng/ml (<300)
== END ==
PROVIDERS: Visit Provider Emergency Medicine
DX: Z79.899 Other long term (current) drug therapy (principal)
CPT/HCPCS: 80305

== ENCOUNTER 2020-12-03 21:07 | Emergency (ER) | payer OTHER, SELFPAY ==
[2020-12-03 21:27] VITALS: BP 129/92; PULSE 88; RESP 17; TEMP 36.7; O2SAT 98; BMI 24.7
--- NOTE | 2020-12-03 21:35 | XR_ITS ---
PROCEDURE: XR LUMBAR SPINE MIN 4V CLINICAL INDICATION: low back Low back pain, fall with injury and pain COMPARISON: CR LS5 LUMBAR SPINE 5 VIEWS from 11/25/[address] PELVIS WO CON from 11/23/[address] ABDOMEN PELVIS W CON from 11/15/2020 FINDINGS: No fracture or dislocation. No lytic or blastic change. There is normal mineralization. The joint spaces are well-preserved. No significant degenerative/arthritic changes. No erosive changes evident. Other findings:Garment artifact overlies the T12 vertebral body. There appears be an old fracture the lower sacrum with anterior angulation the distal fracture fragment. IMPRESSION: No acute findings. Dictated by: Keyon Chen MD 12/04/2020 05:55 Keyon Chen MD in [place] 12/04/2020 05:55
--- NOTE | 2020-12-03 21:48 | HMH.EDFALL ---
ED Disposition Clinical Impression: Lumbar back pain, Frequent falls Disposition: Home, Self-Care Condition on Discharge: Good Instructions: How to Prevent Falls Additional Instructions: see pcp for follow up and testing Referrals: Reuben Fong MD [Primary Care Provider] - - Critical Care Critical Care Time: No Attestation: On 12/03/20, the high probability of a clinically significant, sudden or life threatening deterioration of the following system(s) required my full and direct attention, intervention and personal management. The time I documented below is in addition to time spent performing reported procedures but includes the following listed in this critical care notation. Medical Decision Making - Medical Records Medical records reviewed: Yes: I reviewed the patient's medical records. - Grant Inquiry Pt receiving controlled substance: No Vital Signs: 12/03/20 21:27 Temperature 98.1 F Temperature Source Oral Pulse Rate [Right Brachial] 88 Respiratory Rate 17 Blood Pressure [Right Arm] 129/92 H Blood Pressure Mean [Right Arm] 104 Blood Pressure Source [Right Arm] Automatic Cuff Blood Pressure Position [Right Arm] Sitting 02 Sat by Pulse Oximetry 98 Oxygen Delivery Method Room Air - Lab Data Lab results reviewed: Yes: I reviewed the patient's lab results. Orders (Tests/Meds): ORDERS Category Date Time Status XR lumbar spine min 4V Stat Exams 12/03/20 21:35 Taken XR pelvis 1-2V Stat Exams 12/03/20 21:50 Taken - Radiology Data #1 Image(s): L-Spine, Pelvis Image Reviewed: Yes I reviewed the patient's radiology image Preliminary Findings: No Fracture Seen Medical Decision Narrative: pt with acute pain after fall and no fx seen - has lumbar radicular pain with urinary incont with falls - possible normal pressure hydrocephalus Fall HPI - General Chief Complaint: Fall Stated Complaint: AO 12/02@1960 fell injured back Legs Time Seen by Provider: 12/03/20 21:45 Mode of Arrival: Family Vehicle Source of Information: Patient, Medical Record Limitations: No Limitations Description of Symptoms (Recalled from ER Triage Doc. by RN): pt reports stumbling around her house and falling on her buttocks on the ground. states she has chronic ble weakness and low back issues, and is being treated intermittently for that. complains of pain in low back and buttocks. - History of Present Illness HPI Narrative: fall today at home with hx of freq lower ext weakness and falls - has urinary incont also - localized pain after fall today complaint: fall Onset (ago): hour(s) Fall from: walking Fall witnessed: no Place fall occurred: home Loss of consciousness: none Prolonged down time: no Symptoms prior to fall: lightheadedness Context: history of frequent falls Location of injury: back Severity: moderate Associated symptoms (after fall): denies - Related Data Home Medications Medication Instructions Recorded Confirmed Duloxetine HCl [Cymbalta] See Rx Instructions .ROUTE .COMPLEX 11/21/19 11/16/20 Previous Rx's Medication Instructions Recorded Lidocaine [Lidoderm] 1 each TP DAILY PRN #20 adh..patch 06/20/20 ondansetron HCl 4 mg tablet See Rx Instructions .ROUTE 08/24/20 .COMPLEX #30 tab metoprolol succinate 25 mg 25 mg PO DAILY #90 tab 09/03/20 tablet,extended release 24 hr aspirin 81 mg tablet,delayed 81 mg PO DAILY #100 tab 10/01/20 release alendronate 70 mg tablet See Rx Instructions .ROUTE 10/29/20 .COMPLEX #4 tab clonazepam 0.5 mg tablet 0.5 mg PO TID #90 tab 11/16/20 hydrocodone 7.5 mg-acetaminophen 1 tab PO QID PRN #120 tab 11/16/20 325 mg tablet tramadol 50 mg tablet 50 mg PO Q8H PRN #60 tab 11/16/20 citalopram 20 mg tablet See Rx Instructions .ROUTE 12/03/20 .COMPLEX #90 tab furosemide 20 mg tablet See Rx Instructions .ROUTE 12/03/20 .COMPLEX #10 tab loratadine 10 mg tablet See Rx Instructions .ROUTE 12/03/20 .COMPLEX #90 tab pantoprazol
--- NOTE | 2020-12-03 21:50 | XR_ITS ---
PROCEDURE: XR PELVIS 1-2V CLINICAL INDICATION: fall Posttraumatic pain COMPARISON: CR XR HIP RT 2-3V W/PELVIS from 11/29/2019 TECHNIQUE: XR Pelvis AP View FINDINGS: No fracture or dislocation is evident. No significant degenerative change. Central pelvic clips are present. IMPRESSION: No acute findings. Dictated by: Keyon Chen MD 12/04/2020 05:50 Keyon Chen MD in [place] 12/04/2020 05:50
[2020-12-03 23:09] VITALS: BP 128/89; PULSE 80; RESP 16; TEMP 36.6; O2SAT 98
== END 2020-12-03 23:10 | disposition home or self-care (01) ==
PROVIDERS: Emergency Provider Emergency Medicine; PCP Emergency Medicine
DX: M54.5 Low back pain (principal); W01.0XXA Fall on same level from slipping, tripping and stumbling without subsequent striking against object, initial encounter; Y92.019 Unspecified place in single-family (private) house as the place of occurrence of the external cause; F41.8 Other specified anxiety disorders; K21.9 Gastro-esophageal reflux disease without esophagitis; E78.5 Hyperlipidemia, unspecified; E03.9 Hypothyroidism, unspecified; I10 Essential (primary) hypertension; I50.9 Heart failure, unspecified; R29.6 Repeated falls
CPT/HCPCS: 72110; 72170; 96374; 96375; 99282

== ENCOUNTER → 2020-12-23 12:39 | Outpatient (CLI) | payer OTHER, SELFPAY ==
--- NOTE | 2020-12-23 12:39 | MR_ITS ---
PROCEDURE: MR LUMBAR SPINE WO CON CLINICAL INDICATION: back pain TECHNIQUE: Standard multiplanar multiecho sequences are performed without contrast. 3-D MIP and myelographic images are also rendered and reviewed FINDINGS: There is normal lumbar lordosis. Vertebral body heights and alignment are maintained. Vertebral body bone marrow signal intensity is within normal limits without evidence of marrow infiltrative process. The conus terminates at T12-L1 level. Paravertebral soft tissues are unremarkable. Further details as described below T12-L1: Small broad-based disc bulge without significant canal or foraminal narrowing. L1-2: Small disc bulge with annular tear causes mild thecal sac indentation. No significant canal or foraminal narrowing. L2-3: No significant canal or foraminal narrowing. L3-4: Broad-based disc bulge, and bilateral facet joint hypertrophy causes mild to moderate canal narrowing. There is moderate to severe right and mild left foraminal narrowing. L4-5: Broad-based disc bulge, bilateral facet joint and ligamentum flavum hypertrophy causes no significant canal narrowing. There is moderate left foraminal narrowing. No significant right foraminal narrowing is noted. L5-S1: Small disc bulge and mild bilateral facet joint hypertrophy causes mild to moderate bilateral foraminal narrowing. No significant canal narrowing. IMPRESSION: Multilevel degenerative changes, worse at L3-4 and L4-5 levels with moderate to severe foraminal narrowing as described above. Dictated by: Mira Stevens 12/23/2020 15:50 Mira Stevens in [place] 12/23/2020 15:50
--- NOTE | 2020-12-23 12:39 | MR_ITS ---
PROCEDURE: MR HEAD/BRAIN WO CON CLINICAL INDICATION: weaknees, frequent falls COMPARISON: No exams were available for comparison TECHNIQUE: Routine multiplanar multi echo sequences are performed without gadolinium enhancement. FINDINGS: No evidence of restricted diffusion. The flow voids in the major intracranial vessels are preserved. The ventricles are normal in size, shape and symmetry. There is evidence of pericallosal, periventricular and subcortical white matter T2 and FLAIR hyperintensities noted. Mild volume loss. Incidental note is made of cavum septum pellucidum. No acute infarct, intra or extra-axial hemorrhage or space-occupying lesion. No midline shift or mass effect. Brain parenchymal volume is appropriate for the age of the patient. The osseous structures are unremarkable. Paranasal sinuses and mastoid air cells are clear. IMPRESSION: No acute infarcts. Pericallosal, periventricular and subcortical white matter T2 and FLAIR hyperintensities, raises the concern for demyelinating and dysmyelinating disorders including multiple sclerosis. Dictated by: Mira Stevens 12/23/2020 15:36 Mira Stevens in [place] 12/23/2020 15:36
== END ==
PROVIDERS: PCP Emergency Medicine; Visit Provider Emergency Medicine
DX: M54.5 Low back pain (principal); R53.1 Weakness; R29.6 Repeated falls
CPT/HCPCS: 70551; 72148; 76376; 96523; J1642

== ENCOUNTER 2021-01-02 19:51 | Emergency (ER) | payer OTHER, SELFPAY ==
[2021-01-02 19:52] VITALS: BP 145/81; PULSE 52; RESP 16; TEMP 37.1; O2SAT 98; BMI 25.4
--- NOTE | 2021-01-02 20:11 | HMH.EDBACK ---
ED Disposition Clinical Impression: Lumbar radiculopathy Disposition: Home, Self-Care Condition on Discharge: Good Instructions: DI for Back Pain With Sciatica Additional Instructions: use meds and see pcp for follow up Referrals: Reuben Fong MD [Primary Care Provider] - - Critical Care Critical Care Time: No Attestation: On 01/02/21, the high probability of a clinically significant, sudden or life threatening deterioration of the following system(s) required my full and direct attention, intervention and personal management. The time I documented below is in addition to time spent performing reported procedures but includes the following listed in this critical care notation. Medical Decision Making - Medical Records Medical records reviewed: Yes: I reviewed the patient's medical records. - Grant Inquiry Pt receiving controlled substance: No Vital Signs: 01/02/21 19:52 01/02/21 20:15 Temperature 98.8 F 98.0 F Temperature Source Oral Oral Pulse Rate 73 Pulse Rate [Left Radial] 52 L Respiratory Rate 16 15 Blood Pressure 131/62 Blood Pressure [Right Arm] 145/81 H Blood Pressure Mean [Right Arm] 102 Blood Pressure Source Automatic Cuff Blood Pressure Source [Right Arm] Automatic Cuff Blood Pressure Position Sitting Blood Pressure Position [Right Arm] Sitting 02 Sat by Pulse Oximetry 98 Oxygen Delivery Method Room Air Room Air Orders (Tests/Meds): ED MEDICATIONS Discontinued Medications Generic Name Dose Route Start Last Admin Trade Name Freq PRN Reason Stop Dose Admin Dexamethasone Sodium Phosphate 8 mg 01/02/21 20:13 Dexamethasone 4mg/Ml 1ml Vial IM 01/02/21 20:14 ONCE ONE Hydromorphone HCl 1 mg 01/02/21 20:13 Hydromorphone 2mg/Ml Syringe IM 01/02/21 20:14 ONCE ONE Medical Decision Narrative: has acute episode of l/s pain Back Pain HPI - General Chief Complaint: Back Pain/Injury Stated Complaint: back pain Time Seen by Provider: 01/02/21 20:11 Mode of Arrival: Ambulatory Source of Information: Patient, Medical Record Limitations: No Limitations Description of Symptoms (Recalled from ER Triage Doc. by RN): Pt ambulatory into ED with c/o a really bad back . She reports having a recent MRI and that she is unable to get into her PCP. She states she has had worsening chronic back pain for the last couple days . - History of Present Illness HPI Narrative: acute exacerbation of back pain - has hx of lumbar foraminal pain - no fever/rash or trauma and no cauda equina sx MD Complaint: back pain Onset (ago): hour(s) Duration: intermittent Similar Symptoms Previously: Yes Location: lumbar spine Severity: moderate Quality: aching Radiation: left leg Associated symptoms: denies other symptoms - Related Data Home Medications Medication Instructions Recorded Confirmed Duloxetine HCl [Cymbalta] See Rx Instructions .ROUTE .COMPLEX 11/21/19 11/16/20 Previous Rx's Medication Instructions Recorded Lidocaine [Lidoderm] 1 each TP DAILY PRN #20 adh..patch 06/20/20 ondansetron HCl 4 mg tablet See Rx Instructions .ROUTE 08/24/20 .COMPLEX #30 tab metoprolol succinate 25 mg 25 mg PO DAILY #90 tab 09/03/20 tablet,extended release 24 hr aspirin 81 mg tablet,delayed 81 mg PO DAILY #100 tab 10/01/20 release alendronate 70 mg tablet See Rx Instructions .ROUTE 10/29/20 .COMPLEX #4 tab clonazepam 0.5 mg tablet 0.5 mg PO TID #90 tab 11/16/20 hydrocodone 7.5 mg-acetaminophen 1 tab PO QID PRN #120 tab 11/16/20 325 mg tablet citalopram 20 mg tablet See Rx Instructions .ROUTE 12/03/20 .COMPLEX #90 tab loratadine 10 mg tablet See Rx Instructions .ROUTE 12/03/20 .COMPLEX #90 tab pantoprazole 40 mg tablet,delayed See Rx Instructions .ROUTE 12/03/20 release .COMPLEX #90 tab tramadol 50 mg tablet 50 mg PO Q8H PRN #60 tab 12/30/20 furosemide 20 mg tablet See Rx Instructions .ROUTE 01/01/21 .COMPLEX #10 tab Allergies Allergy/Ad
[2021-01-02 20:15] VITALS: BP 131/62; PULSE 73; RESP 15; TEMP 36.7; O2SAT 99
== END 2021-01-02 20:57 | disposition home or self-care (01) ==
PROVIDERS: Emergency Provider Emergency Medicine; PCP Emergency Medicine
DX: M54.16 Radiculopathy, lumbar region (principal); F41.8 Other specified anxiety disorders; K21.9 Gastro-esophageal reflux disease without esophagitis; I10 Essential (primary) hypertension; E78.5 Hyperlipidemia, unspecified; E03.9 Hypothyroidism, unspecified; I50.9 Heart failure, unspecified; Z79.899 Other long term (current) drug therapy
CPT/HCPCS: 96372; 99281

== ENCOUNTER 2021-01-04 14:34 | Emergency (ER) | payer OTHER, SELFPAY ==
[2021-01-04] VITALS (7 sets, daily range): BP systolic 117–140; BP diastolic 66–76; PULSE 43–85; RESP 16–18; TEMP 36.7–36.8; O2SAT 92–98; BMI 27.1
--- NOTE | 2021-01-04 14:56 | XR_ITS ---
PROCEDURE: XR HIP RT 2-3V W/PELVIS CLINICAL INDICATION: trauma Posttraumatic pain COMPARISON: CR XR PELVIS 1-2V from 12/03/2020 CR XR FEMUR RT 2V from 01/04/2021 FINDINGS: No fracture or dislocation is evident. No lytic or blastic change. Unremarkable soft tissues. Minimal osteoarthritic changes are present at the hip and knee. IMPRESSION: No acute findings. Dictated by: Keyon Chen MD 01/04/2021 16:17 Keyon Chen MD in [place] 01/04/2021 16:17
--- NOTE | 2021-01-04 15:05 | HMH.EDGENADL ---
ED Disposition Clinical Impression: Frequent falls Sprain of right hip Qualifiers: Encounter type: initial encounter Qualified Code(s): S73.101A - Unspecified sprain of right hip, initial encounter Disposition: Home, Self-Care Condition on Discharge: Good Instructions: DI for Hip Pain Referrals: Reuben Fong MD [Primary Care Provider] - - Critical Care Critical Care Time: No Attestation: On 01/04/21, the high probability of a clinically significant, sudden or life threatening deterioration of the following system(s) required my full and direct attention, intervention and personal management. The time I documented below is in addition to time spent performing reported procedures but includes the following listed in this critical care notation. Medical Decision Making - Medical Records Medical records reviewed: Yes: I reviewed the patient's medical records. - Grant Inquiry Pt receiving controlled substance: Yes Grant was queried for this patient: Yes Risks and benefits of using a controlled substance: were discussed with pt by me Vital Signs: 01/04/21 14:42 01/04/21 14:54 01/04/21 15:00 Temperature 98.0 F Temperature Source Oral Pulse Rate 58 L 56 L Pulse Rate [Right Radial] 52 L Respiratory Rate 18 18 18 Blood Pressure 127/74 117/66 Blood Pressure [Right Arm] 127/76 Blood Pressure Mean 96 Blood Pressure Mean [Right Arm] 93 Blood Pressure Source [Right Arm] Automatic Cuff Blood Pressure Position [Right Arm] Sitting 02 Sat by Pulse Oximetry 95 95 96 Oxygen Delivery Method Room Air 01/04/21 15:30 01/04/21 16:00 Temperature Temperature Source Pulse Rate 50 L 49 L Pulse Rate [Right Radial] Respiratory Rate 18 Blood Pressure 140/74 137/74 Blood Pressure [Right Arm] Blood Pressure Mean 96 104 Blood Pressure Mean [Right Arm] Blood Pressure Source [Right Arm] Blood Pressure Position [Right Arm] 02 Sat by Pulse Oximetry 97 93 L Oxygen Delivery Method Orders (Tests/Meds): ED MEDICATIONS Discontinued Medications Generic Name Dose Route Start Last Admin Trade Name Freq PRN Reason Stop Dose Admin Hydromorphone HCl 1 mg 01/04/21 14:56 01/04/21 15:08 Hydromorphone 2mg/Ml Syringe IV 01/04/21 14:57 1 mg ONCE ONE Administration - Radiology Data #1 Image(s): Hip, Femur Image Reviewed: Yes I reviewed the patient's radiology results, Yes I reviewed the patient's radiology image, Yes I have reviewed radiologist's interpretation Preliminary Findings: Normal/NAD, No Fracture Seen - Reevaluation(s) Time: 16:30 Reevaluation #1: On reevaluation, patient is feeling better. Repeat exam shows some improvement with range of motion. Patient was instructed that she needs to use her walker for all ambulation. She needs to follow-up with her PCP in 24 hours. Return precautions. Verbalized understanding. Medical Decision Narrative: 65-year-old female presenting after accidental fall. No syncope. Concern for possible right hip fracture. Work-up initiated. General Adult HPI - General Chief complaint: PAIN Stated complaint: [id number] injured right hip Time Seen by Provider: 01/04/21 14:50 Mode of Arrival: Ambulatory Limitations: No Limitations Description of Symptoms (Recalled from ER Triage Doc. by RN): Pt c/o R hip pain r/t fall lastnight. Pt reports she has had frequent falls lately r/t losing her balance and has a bad R knee per pt report. states she is supposed to be using her walker but states its new to her and she just trying to get used to it. - History of Present Illness HPI narrative: 65-year-old female presented to the emergency department with some right hip pain. Patient has been having some falls over the last 3 days. She was actually seen last night in the emergency department after 1 of these episodes. Patient was administered ministered analgesics and she was feeling better. Patient supposed be using a walker
--- NOTE | 2021-01-04 15:08 | XR_ITS ---
PROCEDURE: XR FEMUR RT 2V CLINICAL INDICATION: trauma Pain COMPARISON: No exams were available for comparison FINDINGS: No fracture or dislocation. No lytic or blastic change. There is normal mineralization. Minimal osteoarthritic change at the hip and knee Other findings:None. IMPRESSION: No acute findings. Dictated by: Keyon Chen MD 01/04/2021 16:18 Keyon Chen MD in [facility] 01/04/2021 16:18
--- NOTE | 2021-01-04 15:22 | PC.NURSE ---
pt to rad
== END 2021-01-04 16:49 | disposition home or self-care (01) ==
PROVIDERS: Emergency Provider Emergency Medicine; PCP Emergency Medicine
DX: S73.101A Unspecified sprain of right hip, initial encounter (principal); R29.6 Repeated falls; E03.9 Hypothyroidism, unspecified; I50.9 Heart failure, unspecified; F41.8 Other specified anxiety disorders; K21.9 Gastro-esophageal reflux disease without esophagitis; I10 Essential (primary) hypertension; E78.5 Hyperlipidemia, unspecified; Z79.899 Other long term (current) drug therapy
CPT/HCPCS: 73502; 73552; 96374; 96375; 99282; J1642

== ENCOUNTER 2021-02-06 17:49 | Emergency (ER) | payer OTHER, SELFPAY ==
[2021-02-06 18:00] VITALS: BP 125/74; PULSE 68; RESP 16; TEMP 36.8; O2SAT 95; BMI 23.6
--- NOTE | 2021-02-06 18:01 | HMH.EDGENADL ---
ED Disposition Clinical Impression: Elevated brain natriuretic peptide (BNP) level Foot pain Qualifiers: Laterality: bilateral Qualified Code(s): M79.671 - Pain in right foot; M79.672 - Pain in left foot Disposition: Home, Self-Care Condition on Discharge: Good Referrals: Reuben Fong MD [Primary Care Provider] - 3 days Time of Disposition: 19:44 - Critical Care Critical Care Time: No Attestation: On 02/06/21, the high probability of a clinically significant, sudden or life threatening deterioration of the following system(s) required my full and direct attention, intervention and personal management. The time I documented below is in addition to time spent performing reported procedures but includes the following listed in this critical care notation. Medical Decision Making - Medical Records Medical records reviewed: Yes: I reviewed the patient's medical records. - Grant Inquiry Pt receiving controlled substance: No Vital Signs: 02/06/21 18:00 02/06/21 19:31 Temperature 98.2 F Temperature Source Oral Pulse Rate 65 Pulse Rate [Right] 68 Respiratory Rate 16 Blood Pressure 121/65 Blood Pressure [Right Arm] 125/74 Blood Pressure Mean [Right Arm] 91 02 Sat by Pulse Oximetry 95 97 Oxygen Delivery Method Room Air - Lab Data Lab Results 02/06/21 19:15: Sodium 138, Potassium 4.0, Chloride 107, Carbon Dioxide 26, Anion Gap 9.0, BUN 16, Creatinine 0.80, Estimated Creat Clear 55, Estimated GFR 72, Est GFR ( Amer) 87, Glucose 86, Calcium 8.3 L 02/06/21 19:15: NT-Pro-B Natriuret Pep 216 H Result diagrams: 02/06/21 19:15 Orders (Tests/Meds): ED MEDICATIONS Discontinued Medications Generic Name Dose Route Start Last Admin Trade Name Freq PRN Reason Stop Dose Admin Ketorolac Tromethamine 30 mg 02/06/21 18:38 02/06/21 18:42 Ketorolac 30mg/Ml Vial IM 02/06/21 18:39 30 mg ONCE ONE Administration Medical Decision Narrative: 65yo F evaluated for bilateral foot pain. Basic metabolic panel and BNP are pending at this time. Patient is in no acute distress. Patient's feet are swollen but the swelling does not extend much beyond the ankle. She has erythema without warmth. Low likelihood of infection given its bilateral and no warmth. We will treat the patient with an extra dose of Lasix at this time. BMP is unremarkable BNP is mildly elevated. Following that, the patient is appropriate stable for discharge home. She will follow up with her PCP on Monday. General Adult HPI - General Stated complaint: swelling both feet Time Seen by Provider: 02/06/21 18:01 Mode of Arrival: Ambulatory - History of Present Illness HPI narrative: 65yo F presents and complains of multiple complaints of the nurse but focuses on bilateral foot swelling and pain during my encounter. She reports this is happened on multiple occasions. She states she takes Lasix but occasionally does not seem to work. She denies any chest pain or shortness of breath. She states her feet hurt so bad she can hardly walk. She denies any fever or systemic signs of illness. She reports taking all medications as directed. - Related Data Home Medications Medication Instructions Recorded Confirmed Duloxetine HCl [Cymbalta] See Rx Instructions .ROUTE .COMPLEX 11/21/19 01/18/21 Previous Rx's Medication Instructions Recorded ondansetron HCl 4 mg tablet See Rx Instructions .ROUTE 08/24/20 .COMPLEX #30 tab metoprolol succinate 25 mg 25 mg PO DAILY #90 tab 09/03/20 tablet,extended release 24 hr aspirin 81 mg tablet,delayed 81 mg PO DAILY #100 tab 10/01/20 release citalopram 20 mg tablet See Rx Instructions .ROUTE 12/03/20 .COMPLEX #90 tab loratadine 10 mg tablet See Rx Instructions .ROUTE 12/03/20 .COMPLEX #90 tab pantoprazole 40 mg tablet,delayed See Rx Instructions .ROUTE 12/03/20 release .COMPLEX #90 tab furosemide 20 mg tablet See Rx Instructions .ROUTE 01/01/21 .COMPLEX #10 tab
[2021-02-06 19:31] VITALS: BP 121/65; PULSE 65; O2SAT 97
[2021-02-06 19:34] LABS: Blood Urea Nitrogen 16 mg/dl (7-17); Calcium 8.3 mg/dl (8.4-10.2); Carbon Dioxide 26 mmol/L (22.0-30.0); Chloride 107 mmol/L (98-107); Creatinine Clearance Estimated 55 mL/min (50-200); Estimated Glomerular Filt Rate 72 ml/min (>60); GFR (African American) 87 ML/MIN (>60); Glucose 86 mg/dl (74-100); Sodium 138 mmol/L (136-145)
[2021-02-06 19:41] LABS: NT Pro Brain Natriuretic Pep. 216 pg/mL (0-125)
[2021-02-06 20:03] VITALS: BP 120/71; PULSE 61; RESP 16; TEMP 36.8; O2SAT 97
== END 2021-02-06 20:04 | disposition home or self-care (01) ==
PROVIDERS: Emergency Provider Family Medicine; PCP Emergency Medicine
DX: M79.671 Pain in right foot (principal); M79.672 Pain in left foot; K21.9 Gastro-esophageal reflux disease without esophagitis; E78.5 Hyperlipidemia, unspecified; I10 Essential (primary) hypertension
CPT/HCPCS: 80048; 83880; 96372; 99282

== ENCOUNTER → 2021-02-11 12:39 | Outpatient (CLI) | payer OTHER, SELFPAY ==
--- NOTE | 2021-02-11 12:46 | CA_ITS ---
APPROVED REPORT Bilateral Lower Extremity Venous Study for DVT. Meter Maintenance Person: Mahsa Allen RVT Indications Lower Extremity Pain: Bilateral Lower Extremity Edema: Bilateral bilateral leg pain/swelling, BRUISING BLE'S Vein Imaging CFV (R): compressive, spontaneous, phasic, augmentation FEM (R): compressive, spontaneous, phasic, augmentation POP (R): compressive, spontaneous, phasic, augmentation PTV (R): Compressible GSV (R): Compressible Peroneals (R):Compressible GAS (R): Compressible CFV (L): compressive, spontaneous, phasic, augmentation FEM (L): compressive, spontaneous, phasic, augmentation POP (L): compressive, spontaneous, phasic, augmentation PTV (L): Compressible GSV (L): Compressible Peroneals (L):Compressible GAS (L): Compressible Findings Study suggests no evidence of DVT or SVT of the bilateral lower extremities. There is a 4.1 X 3.0 cm cystic lesion seen right popliteal fossa, ? Monson's cyst. Conclusion Study suggests no evidence of DVT or SVT of the bilateral lower extremities. There is a 4.1 X 3.0 cm cystic lesion seen right popliteal fossa, consistent with Monson's cyst. Critical Notification Date: 02/11/2021 Time: 13:26 Physician Name: [facility] Electronically signed by : Keyon Chen MD 02/11/2021 15:27:44
== END ==
PROVIDERS: PCP Emergency Medicine; Visit Provider Internal Medicine Cardiovascular Disease
DX: R06.02 Shortness of breath (principal); M79.605 Pain in left leg; M79.604 Pain in right leg; R60.0 Localized edema; M79.89 Other specified soft tissue disorders; E78.5 Hyperlipidemia, unspecified; I10 Essential (primary) hypertension
CPT/HCPCS: 93970

== ENCOUNTER → 2021-03-03 17:09 | Outpatient (CLI) | payer OTHER, SELFPAY ==
[2021-03-04 00:36] LABS: Amphetamine/Metha Screen,Urine Negative ng/ml (<1000); Barbiturates Screen,Urine Negative ng/ml (<200); Benzodiazepines Screen,Urine Positive ng/ml (<200); Cannabinoid Screen,Urine Negative ng/ml (<50); Cocaine Screen,Urine Negative ng/ml (<300); Methadone Screen,Urine Negative ng/ml (<300); Opiate Screen,Urine Positive ng/ml (<300); Phencyclidine Screen,Urine Negative ng/ml (<25)
== END ==
PROVIDERS: Visit Provider Emergency Medicine
DX: M54.5 Low back pain (principal)
CPT/HCPCS: 80305

== ENCOUNTER 2021-04-08 15:02 | Emergency (ER) | payer OTHER, SELFPAY ==
[2021-04-08 17:32] VITALS: BP 131/84; PULSE 77; RESP 16; TEMP 37; O2SAT 97; BMI 24.5
--- NOTE | 2021-04-08 18:03 | HMH.EDUTC ---
[facility] Disposition Clinical Impression: Exposure to COVID-19 virus Disposition: Home, Self-Care Condition on Discharge: Good Instructions: DI for COVID-19 (Suspected or Confirmed ), Coronavirus Disease 2019, Preventing the Spread of Coronavirus Discharge Instructions Additional Instructions: *Monitor Temp, Over the counter Motrin or Tylenol as directed/as needed Tylenol every 4 hours and Motrin every 6 hours (as long as your family doctor has told you that you can take it) for fever or pain. and straight to ER if unable to lower temp less than 101.0 after medication given *Warm salt water gargles may help to soothe the throat *Throat Lozenges *Warm fluids like tea with honey may help to soothe the throat *Sleep elevated *Humidifier/Vaporizer Follow up IMMEDIATELY for new or worsening symptoms or no Noticeable improvement over the next 48-72 hours. 911 for difficulty breathing or swallowing You were tested for today for COVID19 your test result should be back in the next 24-48 hours, you may call to the [facility] to see if your test results are back in the next 48 hours [phone] [facility] hours are 9am-9pm You was given a handout with instructions for Self Quarantine and Self isolation for while you wait on test results and what to do if they are positive If you are positive the Health Dept will be contacting you also Make sure to take your Vitamins Vit. C Vit D and Zinc if you can take them Referrals: Reuben Fong MD [Primary Care Provider] - As needed Time of Disposition: 18:07 Medical Decision Making - Grant Inquiry Pt receiving controlled substance: No Grant was queried for this patient: No Vital Signs: 04/08/21 17:32 Temperature 98.6 F Temperature Source Oral Pulse Rate [Right] 77 Respiratory Rate 16 Blood Pressure [Right Arm] 131/84 Blood Pressure Mean [Right Arm] 99 02 Sat by Pulse Oximetry 97 Orders (Tests/Meds): ORDERS Category Date Time Status Covid-19 Nasal PCR ([facility]) Routine Lab 04/08/21 17:27 Ordered [facility] HPI - General Stated complaint: covid exposure, symptoms Time Seen by Provider: 04/08/21 18:03 Mode of Arrival: Family Vehicle Source of Information: Patient Limitations: No Limitations Description of Symptoms (Recalled from Triage Doc. by RN): Patient here for COVID test. Patient c/o headache and nausea for the last two days. Pt reports she was exposed to a friend with COVID HEENT Symptoms (Recalled from RN notes): Yes Resp Symptoms (Recalled from RN notes): No Skin Symptoms (Recalled from RN notes): No MS Symptoms (Recalled from RN notes): No Functional Status (Recalled from RN notes): Na - History of Present Illness Provider Complaint: Patient state that she has been around her friend all last week that recently tested positive for COVID States that she had N/V a couple days ago and took some Zofran and it helped State that since then she has been having body aches, and chills and wanted to get tested for COVID - Related Data Previous Rx's Medication Instructions Recorded metoprolol succinate 25 mg 25 mg PO DAILY #90 tab 09/03/20 tablet,extended release 24 hr aspirin 81 mg tablet,delayed 81 mg PO DAILY #100 tab 10/01/20 release levetiracetam 500 mg tablet 500 mg PO QHS #30 tab 01/18/21 alendronate 70 mg tablet See Rx Instructions .ROUTE 01/25/21 .COMPLEX #4 tab furosemide 20 mg tablet See Rx Instructions .ROUTE 02/08/21 .COMPLEX #10 tab duloxetine 30 mg capsule,delayed See Rx Instructions .ROUTE 02/10/21 release .COMPLEX #90 capsule spironolactone 25 mg tablet 25 mg PO DAILY #90 tab 02/11/21 citalopram 20 mg tablet See Rx Instructions .ROUTE 02/23/21 .COMPLEX #90 tab loratadine 10 mg tablet See Rx Instructions .ROUTE 02/23/21 .COMPLEX #90 tab pantoprazole 40 mg tablet,delayed See Rx Instructions .ROUTE 02/23/21 release .COMPLEX #90 tab hydrocodone 10 mg-acetaminophen 1 tab PO QID PRN #120 tab 03/03/21 325 mg tablet clonazepam 0.5 mg tablet 0.5 mg PO
[2021-04-08 20:47] VITALS: BP 0/0; PULSE 98; RESP 16; TEMP 36.6; O2SAT 98
== END 2021-04-08 20:49 | disposition home or self-care (01) ==
PROVIDERS: Emergency Provider Nurse Practitioner; PCP Emergency Medicine
DX: Z20.822 Contact with and (suspected) exposure to COVID-19 (principal); I10 Essential (primary) hypertension; E78.5 Hyperlipidemia, unspecified; K21.9 Gastro-esophageal reflux disease without esophagitis; F41.8 Other specified anxiety disorders; Z79.899 Other long term (current) drug therapy; Z88.5 Allergy status to narcotic agent
CPT/HCPCS: 99202; G0463; U0003

== ENCOUNTER 2021-04-25 22:50 | Emergency (ER) | payer OTHER, SELFPAY ==
[2021-04-25 22:51] VITALS: BP 119/80; PULSE 86; RESP 18; TEMP 37.1; O2SAT 96; BMI 24.5
[2021-04-25 23:20] LABS: Microscopic, Urine URINE MICROSCOPIC (MICROSCOPIC)
[2021-04-25 23:20] LABS: Coronavirus 19, PCR Not Detected (NotDetected); Influenza A, PCR Not Detected (NotDetected); Influenza B, PCR Not Detected (NotDetected)
[2021-04-25 23:23] LABS: Appearance,Urine CLEAR (Clear); Blood, Urine Negative (Negative); Color,Urine YELLOW (Yellow); Glucose,Urine (UA) Negative (Negative); Ketones,Urine Negative (Negative); Leukocyte Esterase,Urine Negative (Negative); Nitrate,Urine Negative (Negative); PH,Urine 5.5 (5.0-8.5); Protein,Urine Negative (Negative); Specific Gravity, Urine >= 1.030 (1.005-1.030); Urobilinogen,Urine 0.2 EU/dl (0.2)
[2021-04-25 23:27] LABS: Bilirubin,Urine Negative (Negative)
[2021-04-25 23:54] LABS: Basophils % 0.5 % (0.1-2.0); Eosinophils # 0.5 K/mm3 (0.0-0.4); Eosinophils % 6.6 % (0.1-12.0); Hematocrit 33.2 % (37.0-47.0); Hemoglobin 10.3 g/dL (12.2-16.2); Lymphocytes # 1.9 K/mm3 (0.7-4.5); Lymphocytes % 24.3 % (10-50); Mean Corpuscular Hemoglobin 29.2 pg (27.0-31.2); Mean Corpuscular Volume 94.1 fl (81-99); Mean Platelet Volume 9.6 fl (7.4-10.4); Monocytes # 0.4 K/mm3 (0.1-1.0); Monocytes % 5.7 % (1.7-9.3); Platelet Count 228 K/mm3 (142-424); Red Blood Count 3.52 M/mm3 (4.20-5.40); Red Cell Distribution Width 14.1 % (11.5-17.5); White Blood Count 7.9 K/mm3 (4.8-10.8)
--- NOTE | 2021-04-26 00:02 | XR_ITS ---
PROCEDURE INFORMATION: Exam: XR Chest Exam date and time: 04/26/2021 12:02 AM Age: 65 years old Clinical indication: Cough TECHNIQUE: Imaging protocol: XR of the chest. Views: 2 views. COMPARISON: CR XR CHEST 2V 07/20/2020 12:49 PM FINDINGS: There is a left MediPort catheter with its tip in the superior vena cava. Cholecystectomy has been performed. Lungs: Interval development of patchy infiltrates within the right perihilar region and within the left infrahilar region since prior examination. Pleural spaces: Unremarkable. No pleural effusion. No pneumothorax. Heart/Mediastinum: Unremarkable. No cardiomegaly. Bones/joints: Unremarkable. IMPRESSION: There has been development of patchy infiltrates within the right perihilar region and left infrahilar region. No evidence of pulmonary volume overload. Position of left MediPort catheter unchanged in position. Cholecystectomy noted. Progress examination is suggested.
[2021-04-26 00:07] LABS: Alanine Aminotransferase 68 U/L (12-78); Albumin Level 3.7 g/dl (3.5-5.0); Albumin/Globulin Ratio 1.2 (1.1-1.8); Alkaline Phosphatase 74 U/L (38-126); Anion Gap 10.3 mEq/L (5-15); Aspartate Amino Transferase 96 U/L (14-36); Bilirubin,Total 0.2 mg/dl (0.2-1.3); Blood Urea Nitrogen 17 mg/dl (7-17); Calcium 8.6 mg/dl (8.4-10.2); Carbon Dioxide 28 mmol/L (22.0-30.0); Chloride 107 mmol/L (98-107); Creatinine Clearance Estimated 57 mL/min (50-200); Estimated Glomerular Filt Rate 72 ml/min (>60); GFR (African American) 87 ML/MIN (>60); Globulin 3.2 g/dL (1.3-3.2); Glucose 123 mg/dl (74-100); Potassium 4.3 mmoL/L (3.5-5.1); Sodium 141 mmol/L (136-145); Total Protein,Serum 6.9 g/dl (6.3-8.2)
[2021-04-26 00:10] LABS: C-Reactive Protein 96.7 mg/L (0-4)
[2021-04-26 00:21] LABS: Erythrocyte Sedimentation Rate 71 mm/hr (0-30)
[2021-04-26 00:24] LABS: Procalcitonin 0.088 ng/mL (0.0-2.0)
[2021-04-26 00:31] VITALS: BP 101/61; PULSE 73; O2SAT 96
--- NOTE | 2021-04-26 00:38 | HMH.EDNVD ---
ED Disposition Clinical Impression: CAP (community acquired pneumonia) Qualifiers: Laterality: right Lung location: upper lobe of lung Qualified Code(s): J18.9 - Pneumonia, unspecified organism Chronic low back pain Qualifiers: Back pain laterality: bilateral Sciatica presence: with sciatica Sciatica laterality: sciatica laterality unspecified Qualified Code(s): M54.40 - Lumbago with sciatica, unspecified side; G89.29 - Other chronic pain Disposition: Home, Self-Care Condition on Discharge: Good Instructions: DI for Nausea -- Adult Additional Instructions: fluids and see pcp for follow up Prescriptions: levoFLOXacin [Levaquin 500mg tab] 500 mg PO DAILY #7 tab Transmission Status: Pending to [facility] Referrals: Reuben Fong MD [Primary Care Provider] - - Critical Care Critical Care Time: No Attestation: On 04/25/21, the high probability of a clinically significant, sudden or life threatening deterioration of the following system(s) required my full and direct attention, intervention and personal management. The time I documented below is in addition to time spent performing reported procedures but includes the following listed in this critical care notation. Medical Decision Making - Medical Records Medical records reviewed: Yes: I reviewed the patient's medical records. - Grant Inquiry Pt receiving controlled substance: No Vital Signs: 04/25/21 22:51 Temperature 98.8 F Temperature Source Oral Pulse Rate [Right Radial] 86 Respiratory Rate 18 Blood Pressure [Right Arm] 119/80 Blood Pressure Mean [Right Arm] 93 Blood Pressure Source [Right Arm] Automatic Cuff Blood Pressure Position [Right Arm] Sitting 02 Sat by Pulse Oximetry 96 Oxygen Delivery Method Room Air - Lab Data Lab results reviewed: Yes: I reviewed the patient's lab results. Lab Results 04/25/21 23:00: Urine Color Yellow, Urine Appearance Clear, Urine pH 5.5, Ur Specific [place] >= 1.030, Urine Protein Negative, Urine Glucose (UA) Negative, Urine Ketones Negative, Urine Blood Negative, Urine Nitrate Negative, Urine Bilirubin Negative, Urine Urobilinogen 0.2, Ur Leukocyte Esterase Negative, Urine WBC 10-20, Ur Squamous Epith Cells 10-20 04/25/21 23:15: SARS-CoV-2 (PCR) Not detected, Influenza A Untype (PCR) Not detected, Influenza Type B (PCR) Not detected 04/25/21 23:47: WBC 7.9, RBC 3.52 L, Hgb 10.3 L, Hct 33.2 L, MCV 94.1, MCH 29.2, MCHC 31.0 L, RDW 14.1, Plt Count 228, MPV 9.6, Neut % (Auto) 63.0, Lymph % (Auto) 24.3, [place] % (Auto) 5.7, Eos % (Auto) 6.6, Baso % (Auto) 0.5, Neut # (Auto) 5.0, Lymph # (Auto) 1.9, [place] # (Auto) 0.4, Eos # (Auto) 0.5 H, Baso # (Auto) 0.0, ESR 71 H 04/25/21 23:47: Sodium 141, Potassium 4.3, Chloride 107, Carbon Dioxide 28, Anion Gap 10.3, BUN 17, Creatinine 0.80, Estimated Creat Clear 57, Estimated GFR 72, Est GFR ( Amer) 87, Glucose 123 H, Calcium 8.6, Total Bilirubin 0.2, AST 96 H, ALT 68, Alkaline Phosphatase 74, C-Reactive Protein 96.7 H, Total Protein 6.9, Albumin 3.7, Globulin 3.2, Albumin/Globulin Ratio 1.2, Procalcitonin 0.088 Result diagrams: 04/25/21 23:47 04/25/21 23:47 Orders (Tests/Meds): ED MEDICATIONS Generic Name Dose Route Start Last Admin Trade Name Freq PRN Reason Stop Dose Admin Sodium Chloride 1,000 mls @ 999 mls/hr 04/25/21 23:30 04/25/21 23:50 Sod Chlor 0.9% 1000ml Bag IV 04/26/21 00:30 999 mls/hr .Q1H1M CEM Administration Discontinued Medications Generic Name Dose Route Start Last Admin Trade Name Freq PRN Reason Stop Dose Admin Ketorolac Tromethamine 30 mg 04/26/21 01:21 04/26/21 01:24 Ketorolac 30mg/Ml Vial IV 04/26/21 01:22 30 mg ONCE ONE Administration Ondansetron HCl 4 mg 04/25/21 23:25 04/25/21 23:50 Ondansetron 4mg/2ml Vial IV 04/25/21 23:26 4 mg ONCE ONE Administration ORDERS Category Date Time Status Diarrhea 23 Panel, PCR Stat Lab 04/25/21 23:25 Ordered Urine Culture Stat Micro 04/25/21 23
--- NOTE | 2021-04-26 00:59 | XR_ITS ---
PROCEDURE INFORMATION: Exam: XR Right Shoulder Exam date and time: 04/26/2021 12:59 AM Age: 65 years old Clinical indication: Pain; Shoulder; Right TECHNIQUE: Imaging protocol: XR Right shoulder. Views: 2 or more views. COMPARISON: CR XR SHOULDER RT MIN 2V 11/29/2019 10:20 PM FINDINGS: Bones/joints: Mild narrowing of the right acromioclavicular joint space. The right glenohumeral joint space appears well maintained. There is no evidence of occult fracture. Soft tissues: Patchy infiltration within the right perihilar region is again identified. No overlying soft tissue swelling. IMPRESSION: No acute findings.
[2021-04-26 01:00] VITALS: BP 104/68; PULSE 78; RESP 20; O2SAT 95
[2021-04-26 02:17] VITALS: BP 122/68; PULSE 71; RESP 20; TEMP 36.9; O2SAT 96
== END 2021-04-26 02:21 | disposition home or self-care (01) ==
PROVIDERS: Emergency Provider Emergency Medicine; PCP Emergency Medicine
DX: J18.9 Pneumonia, unspecified organism (principal); M54.40 Lumbago with sciatica, unspecified side; G89.29 Other chronic pain; Z20.822 Contact with and (suspected) exposure to COVID-19; F41.8 Other specified anxiety disorders; I50.9 Heart failure, unspecified; I10 Essential (primary) hypertension; K21.9 Gastro-esophageal reflux disease without esophagitis; E78.5 Hyperlipidemia, unspecified; E03.9 Hypothyroidism, unspecified; Z88.5 Allergy status to narcotic agent; Z79.899 Other long term (current) drug therapy
CPT/HCPCS: 71046; 73030; 80053; 81001; 84145; 85025; 85651; 86140; 87086; 96365; 96375; 99283; C9803; J1642; J2405; U0003; U0005

== ENCOUNTER 2021-05-04 12:14 | Emergency (ER) | payer OTHER, SELFPAY ==
[2021-05-04 14:00] VITALS: BP 140/59; PULSE 56; RESP 18; TEMP 36.9; O2SAT 97; BMI 25.4
--- NOTE | 2021-05-04 14:38 | CT_ITS ---
PROCEDURE: CT CERVICAL SPINE WO CON CLINICAL INDICATION: fall Neck injury with pain, contusion/abrasion or hematoma, cervical sprain/strain the COMPARISON: CT CT CERVICAL SPINE WO CON from 11/29/2019 CR XR CHEST PORTABLE from 05/04/2021 TECHNIQUE: Axial images obtained with sagittal and coronal reformats. All CT scans at the facility use one or more dose reduction, viz: automated exposure control, ma/kV adjustment per patient size (including targeted exams where dose is matched to indication, i.e. head), or iterative reconstruction technique. Axial spiral CT scanning performed of the cervical spine beginning at the base of the skull and continuing to the upper T-spine. 3-D multiplanar reconstruction with 3-D manipulation of volumetric data set in image rendering was completed by the radiologist and/or technologist with the supervision of the radiologist on independent workstation. FINDINGS: Normal alignment. No acute fracture or dislocation. There is fusion the C3 and C4 vertebral bodies and posterior elements. Patchy right apical density noted incompletely imaged nonspecific. Left subclavian MediPort catheter is present. Surgical clips are present in the anterior mediastinum superiorly. There are scattered small nodes in the neck. Asymmetric soft tissue density is present in the right hypo pharyngeal region and base of the tongue and with interspersed gas. This could be due to un cleared mucous or fungating mass.. Please correlate with direct visualization. IMPRESSION: 1. No acute fracture. 2. Fungating mass versus a glob of uncleared mucous intermixed with air in the right hypo pharyngeal region. Please correlate with direct visualization. Dictated by: Keyon Chen MD 05/04/2021 16:01 Keyon Chen MD in [facility] 05/04/2021 16:01
--- NOTE | 2021-05-04 14:38 | CT_ITS ---
PROCEDURE: CT HEAD/BRAIN WO CON CLINICAL INDICATION: fall Head injury with headache/pain, contusion, abrasion or hematoma COMPARISON: CT CT HEAD/BRAIN WO CON from 11/29/2019 TECHNIQUE: Axial images obtained. All CT scans at the facility use one or more dose reduction, viz: automated exposure control, ma/kV adjustment per patient size (including targeted exams where dose is matched to indication, i.e. head), or iterative reconstruction technique. FINDINGS: No midline shift, mass effect, intracranial hemorrhage, hydrocephalus, or extra-axial fluid collection is evident. There is diffuse bilateral white matter hypointensity most commonly seen with diffuse ischemic gliotic change from microvascular disease slightly more prominent compared to 11/29/2019. Basal ganglia calcifications are noted. The calvarium has an unremarkable appearance. No mastoid effusion. No sinus air-fluid level. IMPRESSION: No acute intracranial finding Dictated by: Keyon Chen MD 05/04/2021 15:55 Keyon Chen MD in [facility] 05/04/2021 15:55
--- NOTE | 2021-05-04 14:39 | XR_ITS ---
PROCEDURE: XR CHEST PORTABLE CLINICAL HISTORY: falls COMPARISON: CR XR CHEST PORTABLE from 02/12/[address] CHEST WO CON from 06/20/2020 CR XR CHEST 2V from 07/20/2020 CR XR CHEST 2V from 04/26/2021 FINDINGS: Borderline cardiomegaly without failure. Port-A-Cath present from left subclavian approach with the tip in the region the SVC There has been improvement in the right upper lobe lobe infiltrates with some residual patchy density in the right lower lobe. No acute bony findings. IMPRESSION: Improving right upper and left lower lobe infiltrates with no change in right lower lobe infiltrate Dictated by: Keyon Chen MD 05/04/2021 16:03 Keyon Chen MD in [facility] 05/04/2021 16:03
--- NOTE | 2021-05-04 14:56 | PC.NURSE ---
XR AT BEDSIDE, PT TO CT SCANNER NEXT. BLOODWORK SENT TO LAB.
[2021-05-04 15:05] LABS: Basophils # 0.1 K/mm3 (0-0.2); Basophils % 0.7 % (0.1-2.0); Eosinophils # 0.5 K/mm3 (0.0-0.4); Eosinophils % 5.9 % (0.1-12.0); Hematocrit 32.6 % (37.0-47.0); Hemoglobin 10.1 g/dL (12.2-16.2); Lymphocytes # 2.2 K/mm3 (0.7-4.5); Lymphocytes % 24.7 % (10-50); Mean Corpuscular HGB Conc 30.9 g/dL (31.8-35.4); Mean Corpuscular Hemoglobin 29.6 pg (27.0-31.2); Mean Corpuscular Volume 95.6 fl (81-99); Monocytes # 0.4 K/mm3 (0.1-1.0); Monocytes % 4.5 % (1.7-9.3); Neutrophils # 5.8 K/mm3 (1.8-7.8); Neutrophils % 64.2 % (37.0-80.0); Platelet Count 312 K/mm3 (142-424); Red Blood Count 3.41 M/mm3 (4.20-5.40); Red Cell Distribution Width 14.6 % (11.5-17.5)
--- NOTE | 2021-05-04 15:37 | HMH.EDGENADL ---
ED Disposition Clinical Impression: Abnormal finding on CT scan Syncope Qualifiers: Syncope type: unspecified Qualified Code(s): R55 - Syncope and collapse Disposition: Admitted as Observation Condition on Discharge: Fair Time of Disposition: 17:57 - Critical Care Critical Care Time: No Attestation: On 05/04/21, the high probability of a clinically significant, sudden or life threatening deterioration of the following system(s) required my full and direct attention, intervention and personal management. The time I documented below is in addition to time spent performing reported procedures but includes the following listed in this critical care notation. Medical Decision Making - Medical Records Medical records reviewed: Yes: I reviewed the patient's medical records. - Grant Inquiry Pt receiving controlled substance: No Vital Signs: 05/04/21 14:00 Temperature 98.5 F Temperature Source Oral Pulse Rate [Right] 56 L Respiratory Rate 18 Blood Pressure [Right Arm] 140/59 L Blood Pressure Mean [Right Arm] 86 02 Sat by Pulse Oximetry 97 Oxygen Delivery Method Room Air - Lab Data Lab results reviewed: Yes: I reviewed the patient's lab results. Lab Results 05/04/21 14:50: WBC 9.0, RBC 3.41 L, Hgb 10.1 L, Hct 32.6 L, MCV 95.6, MCH 29.6, MCHC 30.9 L, RDW 14.6, Plt Count 312, MPV 10.0, Neut % (Auto) 64.2, Lymph % (Auto) 24.7, [place] % (Auto) 4.5, Eos % (Auto) 5.9, Baso % (Auto) 0.7, Neut # (Auto) 5.8, Lymph # (Auto) 2.2, [place] # (Auto) 0.4, Eos # (Auto) 0.5 H, Baso # (Auto) 0.1 05/04/21 14:50: Sodium 140, Potassium 4.1, Chloride 108 H, Carbon Dioxide 25, Anion Gap 11.1, BUN 15, Creatinine 0.70, Estimated Creat Clear 59, Estimated GFR 84, Est GFR ( Amer) 102, Glucose 103 H, Calcium 8.6, Total Bilirubin 0.2, AST 32, ALT 18, Alkaline Phosphatase 63, Total Protein 6.9, Albumin 3.6, Globulin 3.3 H, Albumin/Globulin Ratio 1.1 05/04/21 16:09: SARS-CoV-2 (PCR) Not detected, Influenza A Untype (PCR) Not detected, Influenza Type B (PCR) Not detected 05/04/21 16:25: Urine Color Yellow, Urine Appearance Clear, Urine pH 6.0, Ur Specific [place] >= 1.030, Urine Protein Negative, Urine Glucose (UA) Negative, Urine Ketones Negative, Urine Blood Negative, Urine Nitrate Negative, Urine Bilirubin Negative, Urine Urobilinogen 0.2, Ur Leukocyte Esterase Negative, Urine RBC None, Urine WBC Occasional, Ur Squamous Epith Cells Occasional, Urine Bacteria None Result diagrams: 05/04/21 14:50 05/04/21 14:50 Orders (Tests/Meds): ED MEDICATIONS Discontinued Medications Generic Name Dose Route Start Last Admin Trade Name Dylon PRN Reason Stop Dose Admin Acetaminophen 650 mg 05/04/21 16:04 05/04/21 16:05 Acetaminophen 325mg/10.15ml Udc PO 05/04/21 16:05 650 mg ONCE ONE Administration - ECG Data Tracing #1 I reviewed this ECG and interpreted as documented below: Normal sinus rhythm, 65 bpm, no ST elevation or depression, no ectopy, normal intervals. ECG initial impression date: 05/04/21 ECG initial impression time: 15:54 Medical Decision Narrative: 65yo F evaluated for multiple syncopal episodes with falls. Patient is in no acute distress on initial evaluation today. She is sent for CT of her head and C-spine along with obtaining routine labs and EKG. Laboratory studies are unremarkable. EKG is unremarkable. CT of her head is benign. CT of her C-spine shows no acute findings regarding her bony anatomy but does have soft tissue finding in her right hypopharynx region concerning for fungating mass versus large collection of sputum. Recommended for direct visualization. This cannot be achieved in the emergency department. Case discussed with Dr. Del Rio who agrees with admitting the patient given her recurrent syncopal episodes and this finding of her CT C-spine. In follow-up with the patient, she has had a lesion removed from her neck previously secondary to sarcoidosis. General Adult HPI - General Chief co
--- NOTE | 2021-05-04 15:49 | ECG_ITS ---
APPROVED REPORT Exam: Resting ECG HR:65 bpm ECG Measurements Heart Rate 65 AXES MS 204 P 33 QRSd 84 QRS 5 QT 438 T 38 QTc 455 Conclusion Normal sinus rhythm Normal ECG Electronically signed by : Colin Durant MD 05/05/2021 17:48:13
[2021-05-04 16:15] LABS: Coronavirus 19, PCR Not Detected (NotDetected); Influenza A, PCR Not Detected (NotDetected); Influenza B, PCR Not Detected (NotDetected)
[2021-05-04 16:21] LABS: Alanine Aminotransferase 18 U/L (12-78); Albumin Level 3.6 g/dl (3.5-5.0); Albumin/Globulin Ratio 1.1 (1.1-1.8); Alkaline Phosphatase 63 U/L (38-126); Anion Gap 11.1 mEq/L (5-15); Aspartate Amino Transferase 32 U/L (14-36); Bilirubin,Total 0.2 mg/dl (0.2-1.3); Blood Urea Nitrogen 15 mg/dl (7-17); Calcium 8.6 mg/dl (8.4-10.2); Carbon Dioxide 25 mmol/L (22.0-30.0); Chloride 108 mmol/L (98-107); Creatinine Clearance Estimated 59 mL/min (50-200); Estimated Glomerular Filt Rate 84 ml/min (>60); GFR (African American) 102 ML/MIN (>60); Globulin 3.3 g/dL (1.3-3.2); Glucose 103 mg/dl (74-100); Potassium 4.1 mmoL/L (3.5-5.1); Sodium 140 mmol/L (136-145); Total Protein,Serum 6.9 g/dl (6.3-8.2)
[2021-05-04 16:31] LABS: Microscopic, Urine URINE MICROSCOPIC (MICROSCOPIC)
[2021-05-04 16:36] LABS: Appearance,Urine CLEAR (Clear); Bilirubin,Urine Negative (Negative); Blood, Urine Negative (Negative); Color,Urine YELLOW (Yellow); Glucose,Urine (UA) Negative (Negative); Ketones,Urine Negative (Negative); Leukocyte Esterase,Urine Negative (Negative); Nitrate,Urine Negative (Negative); Protein,Urine Negative (Negative); Specific Gravity, Urine >= 1.030 (1.005-1.030); Urobilinogen,Urine 0.2 EU/dl (0.2)
[2021-05-04 17:00] LABS: Squamous Epithelial Cell,Urine Occasional #/hpf (0-5); WBC,Urine Occasional #/hpf (0-3)
--- NOTE | 2021-05-04 17:17 | PC.NURSE ---
1659 bed assignment requested for admission, syncope and abnormal ct scan. pt requires telemetry at this time. no tele beds available. pt will board in ED, ED staff made aware. ED staff will notify ED MD
[2021-05-04 17:57] VITALS: BP 145/75; PULSE 64; RESP 13; O2SAT 100
[2021-05-04 22:23] VITALS: BP 139/59; PULSE 57; RESP 16; TEMP 36.8; O2SAT 97
== END 2021-05-04 22:28 | disposition left against medical advice (07) ==
LOC: ER 14:13 → 2ND 17:57
PROVIDERS: Emergency Provider Family Medicine; PCP Emergency Medicine; Visit Provider Emergency Medicine
DX: R55 Syncope and collapse (principal); W18.39XA Other fall on same level, initial encounter; Y92.019 Unspecified place in single-family (private) house as the place of occurrence of the external cause; I10 Essential (primary) hypertension; E03.9 Hypothyroidism, unspecified; E78.5 Hyperlipidemia, unspecified; F41.8 Other specified anxiety disorders; K21.9 Gastro-esophageal reflux disease without esophagitis; R90.89 Other abnormal findings on diagnostic imaging of central nervous system; Z79.899 Other long term (current) drug therapy
CPT/HCPCS: 70450; 71045; 72125; 80053; 81001; 85025; 93005; 93306; 96374; 99283; C9803; G0378; U0003; U0005

== ENCOUNTER 2021-05-29 12:41 | Emergency (ER) | payer OTHER, SELFPAY ==
[2021-05-29 12:45] VITALS: BP 118/68; PULSE 78; RESP 18; TEMP 36.7; O2SAT 98; BMI 27.4
--- NOTE | 2021-05-29 12:50 | XR_ITS ---
PROCEDURE INFORMATION: Exam: XR Left Hip Exam date and time: 05/29/2021 12:50 PM Age: 65 years old Clinical indication: Hip pain; Left hip; Additional info: Fall TECHNIQUE: Imaging protocol: XR Left hip. Views: 2 or 3 views hip with pelvis when performed. COMPARISON: CR XR PELVIS 1-2V 12/03/2020 9:47 PM FINDINGS: Bones/joints: There are mild degenerative changes in the left hip joint. There is no evidence of acute fracture. There is no evidence of joint malalignment or dislocation. Soft tissues: No focal soft tissue swelling. Intraperitoneal space: Surgical clips noted with the upper pelvis. Vasculature: There are numerous benign phleboliths in the pelvis. IMPRESSION: 1. There are mild degenerative changes in the left hip joint. 2. No evidence of acute fracture. 3. No evidence of acute dislocation.
--- NOTE | 2021-05-29 12:50 | XR_ITS ---
PROCEDURE INFORMATION: Exam: XR Bilateral Knees, Standing AP Exam date and time: 05/29/2021 12:50 PM Age: 65 years old Clinical indication: Pain; Knee; Bilateral; Additional info: Fall TECHNIQUE: Imaging protocol: XR of the bilateral knees. Views: Standing AP. COMPARISON: CR XR KNEE RT 3V 11/29/2019 10:20 PM FINDINGS: Bones/joints: Mild degenerative changes of both knees. There is no evidence of acute fracture. There is no evidence of joint malalignment or dislocation. Soft tissues: Normal. IMPRESSION: 1. Mild degenerative changes of both knees. 2. No evidence of acute fracture. 3. No evidence of acute dislocation.
--- NOTE | 2021-05-29 12:50 | XR_ITS ---
PROCEDURE INFORMATION: Exam: XR Lumbosacral Spine Exam date and time: 05/29/2021 12:50 PM Age: 65 years old Clinical indication: Injury or trauma; Fall; Wound; Without foreign body TECHNIQUE: Imaging protocol: XR of the lumbosacral spine. Views: 2 or 3 views. COMPARISON: MR LUMBAR SPINE WO CON 12/23/2020 1:05 PM FINDINGS: Bones/joints: The lumbar spine demonstrates mild degenerative changes at multiple levels. Soft tissues: Surgical clips present within the upper pelvis. Gastrointestinal tract: A large amount of stool is noted throughout the colon. Vasculature: There are numerous benign phleboliths in the pelvis. IMPRESSION: 1. The lumbar spine demonstrates mild degenerative changes at multiple levels. 2. A large amount of stool is noted throughout the colon.
--- NOTE | 2021-05-29 13:13 | HMH.EDUTC ---
[facility] [place] Disposition Clinical Impression: Hip pain, right Contusion, knee Qualifiers: Encounter type: initial encounter Laterality: unspecified laterality Qualified Code(s): S80.00XA - Contusion of unspecified knee, initial encounter Disposition: Home, Self-Care Condition on Discharge: Good Instructions: DI for Knee Pain Additional Instructions: rest tylenol or motrin as needed ice as needed follow up with pcp if any concerns return or be seen in ed Referrals: Reuben Fong MD [Primary Care Provider] - Time of Disposition: 14:40 Medical Decision Making - Grant Inquiry Pt receiving controlled substance: No Vital Signs: 05/29/21 12:45 Temperature 98.1 F Temperature Source Temporal Artery Scan Pulse Rate [Right Brachial] 78 Respiratory Rate 18 Blood Pressure [Right Arm] 118/68 Blood Pressure Mean [Right Arm] 84 Blood Pressure Source [Right Arm] Automatic Cuff Blood Pressure Position [Right Arm] Sitting 02 Sat by Pulse Oximetry 98 Oxygen Delivery Method Room Air Orders (Tests/Meds): ORDERS Category Date Time Status XR hip LT 2-3V w/pelvis Stat Exams 05/29/21 12:50 Taken XR knee standing BI Stat Exams 05/29/21 12:50 Taken XR lumbar spine 2-3V Stat Exams 05/29/21 12:50 Taken - Radiology Data #1 Image(s): L-Spine Image Reviewed: Yes I reviewed the patient's radiology image w/the ED provider Preliminary Findings: Normal/NAD #2 Image(s): Hip Image Reviewed: Yes I reviewed the patient's radiology image w/the ED provider Preliminary Findings: Normal/NAD [facility] [place] HPI - General Chief complaint: Urgent Treatment [facility] Stated complaint: AO 1013, right side waist down Time Seen by Provider: 05/29/21 13:13 Mode of Arrival: Ambulatory Source of Information: Patient Limitations: No Limitations Description of Symptoms (Recalled from Triage Doc. by RN): PATIENT REPORTS SHE FELL OFF OF A DECK ON MONDAY NIGHT. C/O PAIN TO LEFT HIP AND BILATERAL KNEES HEENT Symptoms (Recalled from RN notes): No Resp Symptoms (Recalled from RN notes): No Skin Symptoms (Recalled from RN notes): No MS Symptoms (Recalled from RN notes): Yes Functional Status (Recalled from RN notes): WNL - History of Present Illness Provider Complaint: 65 yr old female presents for pain in left hip and shakira knees. pt states she fell off her deck on . - Related Data Home Medications Medication Instructions Recorded Confirmed Alendronate Sodium [Fosamax 70mg See Rx Instructions .ROUTE .COMPLEX 05/04/21 05/04/21 Tablet] Citalopram Hydrobromide See Rx Instructions .ROUTE .COMPLEX 05/04/21 05/04/21 [Citalopram HBr] Duloxetine HCl [Cymbalta] See Rx Instructions .ROUTE .COMPLEX 05/04/21 05/04/21 Furosemide [Furosemide 20mg Tab*] See Rx Instructions .ROUTE .COMPLEX 05/04/21 05/04/21 Hydrocodone/Acetaminophen 1 tab PO QID 05/04/21 05/04/21 [Hydrocodone-Acetamin 7.5-325] Spironolactone [Spironolactone 25 mg PO DAILY 05/04/21 05/04/21 25mg Tablet] Tramadol HCl [Tramadol 50mg 50 mg PO Q8H 05/04/21 05/04/21 Tab] levETIRAcetam [Levetiracetam] 500 mg PO QHS 05/04/21 05/04/21 levoFLOXacin [Levaquin 500mg 500 mg PO DAILY 05/04/21 05/04/21 tab] Previous Rx's Medication Instructions Recorded metoprolol succinate 25 mg 25 mg PO DAILY #90 tab 09/03/20 tablet,extended release 24 hr aspirin 81 mg tablet,delayed 81 mg PO DAILY #100 tab 10/01/20 release clonazepam 0.5 mg tablet 0.5 mg PO TID #90 tab 04/20/21 ondansetron HCl 4 mg tablet See Rx Instructions .ROUTE 05/07/21 .COMPLEX #30 tab loratadine 10 mg tablet See Rx Instructions .ROUTE 05/14/21 .COMPLEX #90 tablet pantoprazole 40 mg tablet,delayed See Rx Instructions .ROUTE 05/14/21 release .COMPLEX #90 tablet Allergies Allergy/AdvReac Type Severity Reaction Status Date / Time codeine [CODEINE] Allergy Unknown Verified 05/04/21 14:15 Iodinated Contrast Media Allergy Unknown Verified 05/04/21 14:15 [IODINATED CONTRAST MEDIA -
[2021-05-29 14:40] VITALS: BP 118/68; PULSE 78; RESP 18; TEMP 36.7; O2SAT 98
== END 2021-05-29 14:47 | disposition home or self-care (01) ==
LOC: ER 12:46 → UTC 12:46
PROVIDERS: Emergency Provider Nurse Practitioner Family; PCP Emergency Medicine
DX: S80.01XA Contusion of right knee, initial encounter (principal); S80.02XA Contusion of left knee, initial encounter; M25.552 Pain in left hip; W17.89XA Other fall from one level to another, initial encounter; Y92.099 Unspecified place in other non-institutional residence as the place of occurrence of the external cause; F41.8 Other specified anxiety disorders; K21.9 Gastro-esophageal reflux disease without esophagitis; E78.5 Hyperlipidemia, unspecified; E03.9 Hypothyroidism, unspecified; I10 Essential (primary) hypertension; Z79.899 Other long term (current) drug therapy
CPT/HCPCS: 72100; 73502; 73565; 99202; G0463

== ENCOUNTER → 2021-06-18 17:21 | Outpatient (CLI) | payer OTHER, SELFPAY ==
[2021-06-18 19:08] LABS: Amphetamine/Metha Screen,Urine Negative ng/ml (<1000); Barbiturates Screen,Urine Negative ng/ml (<200)
[2021-06-18 19:09] LABS: Benzodiazepines Screen,Urine Positive ng/ml (<200)
[2021-06-18 19:10] LABS: Cannabinoid Screen,Urine Negative ng/ml (<50); Cocaine Screen,Urine Negative ng/ml (<300)
[2021-06-18 19:11] LABS: Methadone Screen,Urine Negative ng/ml (<300)
[2021-06-18 19:12] LABS: Opiate Screen,Urine Positive ng/ml (<300); Phencyclidine Screen,Urine Negative ng/ml (<25)
== END ==
PROVIDERS: Visit Provider Emergency Medicine
DX: Z79.899 Other long term (current) drug therapy (principal)
CPT/HCPCS: 80305

== ENCOUNTER 2021-06-21 13:22 | Outpatient (CLI) | payer OTHER, SELFPAY | END 2021-06-21 13:40 | disposition home or self-care (01) | LOC: INF 13:23 | PROVIDERS: PCP Emergency Medicine; Visit Provider Family Medicine | DX: Z45.2 Encounter for adjustment and management of vascular access device (principal) | CPT/HCPCS: 96523; J1642 ==

== ENCOUNTER 2021-07-23 13:55 | Emergency (ER) | payer OTHER, SELFPAY ==
[2021-07-23 14:20] VITALS: BP 148/88; PULSE 80; RESP 19; TEMP 36.6; O2SAT 98; BMI 27.1
--- NOTE | 2021-07-23 14:35 | XR_ITS ---
PROCEDURE: XR KNEE RT 3V CLINICAL INDICATION: FALL COMPARISON: CR Knee L from 02/19/2019 CR XR KNEE RT 3V from 11/23/2019 CR XR KNEE RT 3V from 11/29/2019 CR XR KNEE STANDING BI from 05/29/2021 FINDINGS: No fracture or dislocation. No lytic or blastic change. There is normal mineralization. Minimal osteoarthritic change medial compartment and patellofemoral joint with suprapatellar effusion. Other findings:None. IMPRESSION: Mild osteoarthritis with Dictated by: Keyon Chen MD 07/23/2021 15:54 Keyon Chen MD in [place] 07/23/2021 15:54
--- NOTE | 2021-07-23 15:27 | HMH.EDUTC ---
[facility] [place] Disposition Clinical Impression: Acute bronchitis Qualifiers: Bronchitis organism: unspecified organism Qualified Code(s): J20.9 - Acute bronchitis, unspecified Contusion of right knee Qualifiers: Encounter type: initial encounter Qualified Code(s): S80.01XA - Contusion of right knee, initial encounter Disposition: Home, Self-Care Condition on Discharge: Good Instructions: DI for Acute Bronchitis, Preventing the Spread of Coronavirus Discharge Instructions Additional Instructions: Drink plenty of fluids. Take tylenol or ibuprofen for pain or fever. Take the medications as directed. Follow up with your regular doctor. GO TO THE ER FOR ANY WORSENING SYMPTOMS Quarantine until you know the results of your covid-19 test. If it is positive, the health department should call you and give you further instructions about your length of Quarantine and other things. Notify your school or workplace of your results and follow their instructions regarding return to work/school. Prescriptions: Benzonatate [Benzonatate 100mg cap] 100 mg PO TIDP PRN #30 cap PRN Reason: Cough Transmission Status: Received by [facility] guaiFENesin [Mucinex 600mg tablet] 1 - 2 tab PO BIDP PRN #30 tab PRN Reason: Congestion Transmission Status: Received by [facility] Azithromycin [Z-Dionicio 250mg Tab*] 250 mg PO UD DOSE PK #6 tab Transmission Status: Received by [facility] Referrals: Reuben Fong MD [Primary Care Provider] - Lucio Stevens MD [Staff Physician] - Time of Disposition: 16:51 Medical Decision Making - Medical Records Medical records reviewed: No: I reviewed the patient's medical records. - Grant Inquiry Pt receiving controlled substance: No Vital Signs: 07/23/21 14:20 07/23/21 16:42 Temperature 97.9 F 97.9 F Temperature Source Oral Pulse Rate 80 Pulse Rate [Right Brachial] 80 Respiratory Rate 19 19 Blood Pressure 148/88 H Blood Pressure [Right Arm] 148/88 H Blood Pressure Mean [Right Arm] 108 Blood Pressure Source [Right Arm] Automatic Cuff Blood Pressure Position [Right Arm] Sitting 02 Sat by Pulse Oximetry 98 Oxygen Delivery Method Room Air [facility] [place] HPI - General Stated complaint: covid symptoms and test Time Seen by Provider: 07/23/21 15:27 Mode of Arrival: Ambulatory Source of Information: Patient Limitations: No Limitations Description of Symptoms (Recalled from Triage Doc. by RN): PATIENT C/O COUGH AND IS REQUESTING COVID TEST. ALSO C/O PAIN AND SWELLING TO RIGHT KNEE AFTER FALLING ON MONDAY HEENT Symptoms (Recalled from RN notes): No Resp Symptoms (Recalled from RN notes): Yes Skin Symptoms (Recalled from RN notes): No MS Symptoms (Recalled from RN notes): Yes Functional Status (Recalled from RN notes): WNL - History of Present Illness Provider Complaint: She states that for the past 3 days she has had a worsening cough and chest congestion. She also fell 1 week ago and came down on her right knee. Since then she has had right knee pain and swelling. - Related Data Home Medications Medication Instructions Recorded Confirmed Citalopram Hydrobromide See Rx Instructions .ROUTE .COMPLEX 05/04/21 06/21/21 [Citalopram HBr] Duloxetine HCl [Cymbalta] See Rx Instructions .ROUTE .COMPLEX 05/04/21 06/21/21 Furosemide [Furosemide 20mg Tab*] See Rx Instructions .ROUTE .COMPLEX 05/04/21 06/21/21 Spironolactone [Spironolactone 25 mg PO DAILY 05/04/21 06/21/21 25mg Tablet] Previous Rx's Medication Instructions Recorded metoprolol succinate 25 mg 25 mg PO DAILY #90 tab 09/03/20 tablet,extended release 24 hr aspirin 81 mg tablet,delayed 81 mg PO DAILY #100 tab 10/01/20 release loratadine 10 mg tablet See Rx Instructions .ROUTE 05/14/21 .COMPLEX #90 tablet pantoprazole 40 mg tablet,delayed See Rx Instructions .ROUTE 05/14/21 release .COMPLEX #90 tablet clonazepam 0.5 mg tablet 0.5 mg PO TID #90 tab 06/18/21 hydrocodone 10 m
[2021-07-23 16:42] VITALS: BP 148/88; PULSE 80; RESP 19; TEMP 36.6; O2SAT 98
== END 2021-07-23 16:56 | disposition home or self-care (01) ==
PROVIDERS: Emergency Provider Nurse Practitioner Family; PCP Emergency Medicine
DX: J20.9 Acute bronchitis, unspecified (principal); S80.01XA Contusion of right knee, initial encounter; W01.0XXA Fall on same level from slipping, tripping and stumbling without subsequent striking against object, initial encounter; Y92.099 Unspecified place in other non-institutional residence as the place of occurrence of the external cause; Z20.822 Contact with and (suspected) exposure to COVID-19; I10 Essential (primary) hypertension; F41.8 Other specified anxiety disorders; K21.9 Gastro-esophageal reflux disease without esophagitis; E78.5 Hyperlipidemia, unspecified; E03.9 Hypothyroidism, unspecified; G43.709 Chronic migraine without aura, not intractable, without status migrainosus; Z88.5 Allergy status to narcotic agent; Z79.899 Other long term (current) drug therapy
CPT/HCPCS: 73562; 99202; C9803; G0463; U0003; U0005

== ENCOUNTER → 2021-08-04 13:45 | Outpatient (CLI) | payer OTHER, SELFPAY ==
[2021-08-04 14:19] LABS: Amphetamine/Metha Screen,Urine Negative ng/ml (<1000)
[2021-08-04 14:20] LABS: Barbiturates Screen,Urine Negative ng/ml (<200)
[2021-08-04 14:21] LABS: Benzodiazepines Screen,Urine Positive ng/ml (<200); Cannabinoid Screen,Urine Negative ng/ml (<50)
[2021-08-04 14:22] LABS: Cocaine Screen,Urine Negative ng/ml (<300); Methadone Screen,Urine Negative ng/ml (<300)
[2021-08-04 14:23] LABS: Opiate Screen,Urine Positive ng/ml (<300)
[2021-08-04 14:25] LABS: Phencyclidine Screen,Urine Negative ng/ml (<25)
== END ==
PROVIDERS: Visit Provider Emergency Medicine
DX: M54.50 Low back pain, unspecified (principal)
CPT/HCPCS: 80305

== ENCOUNTER → 2021-08-12 12:48 | Outpatient (CLI) | payer OTHER, SELFPAY | PROVIDERS: PCP Emergency Medicine; Visit Provider Physician Assistant | DX: R06.02 Shortness of breath (principal); I10 Essential (primary) hypertension; I51.89 Other ill-defined heart diseases; R60.0 Localized edema; E78.5 Hyperlipidemia, unspecified | CPT/HCPCS: 93306 ==

== ENCOUNTER 2021-08-15 16:18 | Emergency (ER) | payer OTHER, SELFPAY ==
[2021-08-15 16:20] VITALS: BP 145/103; PULSE 73; RESP 16; TEMP 36.6; O2SAT 100; BMI 27.9
[2021-08-15 20:34] VITALS: BP 145/103; PULSE 76; O2SAT 98
--- NOTE | 2021-08-15 20:59 | CT_ITS ---
PROCEDURE INFORMATION: Exam: CT Head Without Contrast Exam date and time: 08/15/2021 8:59 PM Age: 65 years old Clinical indication: Injury or trauma; Fall; Blunt trauma (contusions or hematomas); Without loss of consciousness; Injury date: 08/15/2021; Additional info: Fall, headache TECHNIQUE: Imaging protocol: Computed tomography of the head without contrast. Radiation optimization: All CT scans at this facility use at least one of these dose optimization techniques: automated exposure control; mA and/or kV adjustment per patient size (includes targeted exams where dose is matched to clinical indication); or iterative reconstruction. COMPARISON: CT HEAD/BRAIN WO CON 05/04/2021 3:00 PM FINDINGS: Brain: There is age-appropriate cerebral atrophy. Moderate changes of chronic small vessel ischemia within the cerebral white matter regions bilaterally. No acute infarct or hemorrhage. Cerebral ventricles: No ventriculomegaly. Cavum septum pellucidum and vergae. Paranasal sinuses: Visualized sinuses are unremarkable. No fluid levels. Mastoid air cells: Visualized mastoid air cells are well aerated. Bones/joints: Unremarkable. No acute fracture. Soft tissues: Unremarkable. IMPRESSION: No acute intracranial abnormality.
--- NOTE | 2021-08-15 21:00 | ECG_ITS ---
APPROVED REPORT Exam: Resting ECG HR:51 bpm ECG Measurements Heart Rate 51 AXES MT 222 P 64 QRSd 94 QRS 42 QT 496 T 63 QTc 457 Conclusion Sinus bradycardia with sinus arrhythmia with 1st degree AV block Otherwise normal ECG Electronically signed by : Colin Durant MD 08/16/2021 21:38:13
--- NOTE | 2021-08-15 21:00 | ECG_ITS ---
APPROVED REPORT Exam: Resting ECG HR:66 bpm ECG Measurements Heart Rate 66 AXES ID 220 P 70 QRSd 98 QRS 24 QT 470 T 54 QTc 492 Conclusion Sinus rhythm with 1st degree AV block Prolonged QT Abnormal ECG Electronically signed by : Colin Durant MD 08/16/2021 21:39:03
--- NOTE | 2021-08-15 21:00 | CT_ITS ---
PROCEDURE INFORMATION: Exam: CT Lumbar Spine Without Contrast Exam date and time: 08/15/2021 9:00 PM Age: 65 years old Clinical indication: Injury or trauma; Fall; Blunt trauma (contusions or hematomas); Injury date: 08/15/2021; Additional info: Lower back pain after fall worse than usual TECHNIQUE: Imaging protocol: Computed tomography images of the lumbar spine without contrast. Radiation optimization: All CT scans at this facility use at least one of these dose optimization techniques: automated exposure control; mA and/or kV adjustment per patient size (includes targeted exams where dose is matched to clinical indication); or iterative reconstruction. COMPARISON: MR LUMBAR SPINE WO CON 12/23/2020 1:05 PM FINDINGS: Vertebrae: Vertebral body height and AP alignment is preserved. No acute fracture. No osseous destruction. Discs/Spinal canal/Neural foramina: No definite significant central canal stenosis within limitations of technique. Gallbladder and bile ducts: Previous cholecystectomy. Soft tissues: Unremarkable. IMPRESSION: No acute osseous abnormality.
[2021-08-15 21:01] VITALS: BP 184/98; PULSE 70; O2SAT 97
--- NOTE | 2021-08-15 21:02 | XR_ITS ---
PROCEDURE INFORMATION: Exam: XR Left Knee Exam date and time: 08/15/2021 9:02 PM Age: 65 years old Clinical indication: Injury or trauma; Fall; Blunt trauma; Injury date: 08/15/2021; Patient HX: Fell swelling and bruising left knee; Additional info: Fall, knee pain and swelling reported TECHNIQUE: Imaging protocol: XR Left knee. Views: 3 views. COMPARISON: CR XR KNEE STANDING BI 05/29/2021 1:05 PM FINDINGS: Bones/joints: Normal. Soft tissues: Normal. IMPRESSION: No acute findings.
--- NOTE | 2021-08-15 21:04 | HMH.EDFALL ---
ED Disposition Clinical Impression: Hypokalemia, Fall, Knee pain, left Disposition: Home, Self-Care Condition on Discharge: Fair Prescriptions: Potassium Chloride 20 meq PO BID 10 Days #20 tab Transmission Status: [facility] to [facility] Referrals: Reuben Fong MD [Primary Care Provider] - - Critical Care Critical Care Time: No Attestation: On 08/15/21, the high probability of a clinically significant, sudden or life threatening deterioration of the following system(s) required my full and direct attention, intervention and personal management. The time I documented below is in addition to time spent performing reported procedures but includes the following listed in this critical care notation. Medical Decision Making - Grant Inquiry Pt receiving controlled substance: Yes Grant was queried for this patient: Yes Risks and benefits of using a controlled substance: were discussed with pt by me Vital Signs: 08/15/21 16:20 08/15/21 20:34 08/15/21 21:01 Temperature 97.9 F Temperature Source Oral Pulse Rate 76 70 Pulse Rate [Left] 73 Respiratory Rate 16 Blood Pressure 145/103 H 184/98 H Blood Pressure [Right Arm] 145/103 H Blood Pressure Mean [Right Arm] 117 02 Sat by Pulse Oximetry 100 98 97 Oxygen Delivery Method Room Air Room Air Room Air 08/15/21 21:45 08/15/21 22:01 08/15/21 23:00 Temperature Temperature Source Pulse Rate 62 57 L 63 Pulse Rate [Left] Respiratory Rate Blood Pressure 187/80 H 178/94 H 169/92 H Blood Pressure [Right Arm] Blood Pressure Mean [Right Arm] 02 Sat by Pulse Oximetry 100 99 97 Oxygen Delivery Method Room Air Room Air Room Air 08/16/21 00:07 Temperature Temperature Source Pulse Rate 64 Pulse Rate [Left] Respiratory Rate Blood Pressure 194/101 H Blood Pressure [Right Arm] Blood Pressure Mean [Right Arm] 02 Sat by Pulse Oximetry 97 Oxygen Delivery Method - Lab Data Lab Results 08/15/21 22:26: Urine Color Yellow, Urine Appearance Clear, Urine pH 7.0, Ur Specific [place] 1.020, Urine Protein Negative, Urine Glucose (UA) Negative, Urine Ketones Negative, Urine Blood Negative, Urine Nitrate Negative, Urine Bilirubin Negative, Urine Urobilinogen 0.2, Ur Leukocyte Esterase Negative, Urine WBC 3-5 08/15/21 23:28: Sodium 139, Potassium 2.9 L*, Chloride 107, Carbon Dioxide 28, Anion Gap 6.9, BUN 10, Creatinine 0.70, Estimated Creat Clear 65, Estimated GFR 84, Est GFR ( Amer) 102, Glucose 103 H, Calcium 8.8, Total Bilirubin 0.3, AST 38 H, ALT 18, Alkaline Phosphatase 84, Troponin I < 0.01, Total Protein 6.8, Albumin 3.7, Globulin 3.1, Albumin/Globulin Ratio 1.2 08/15/21 23:28: WBC 6.7, RBC 3.72 L, Hgb 10.8 L, Hct 33.4 L, MCV 89.7, MCH 29.1, MCHC 32.4, RDW 14.2, Plt Count 282, MPV 10.5 H, Neut % (Auto) 63.0, Lymph % (Auto) 28.6, [place] % (Auto) 5.9, Eos % (Auto) 1.9, Baso % (Auto) 0.6, Neut # (Auto) 4.2, Lymph # (Auto) 1.9, [place] # (Auto) 0.4, Eos # (Auto) 0.1, Baso # (Auto) 0.0 08/15/21 23:28: Magnesium 1.8 Result diagrams: 08/15/21 23:28 08/15/21 23:28 Orders (Tests/Meds): ED MEDICATIONS Generic Name Dose Route Start Last Admin Trade Name Freq PRN Reason Stop Dose Admin Methocarbamol 500 mg 08/15/21 21:15 08/15/21 22:00 Methocarbamol 500mg Tablet PO 09/14/21 21:14 500 mg BID CEM Administration Discontinued Medications Generic Name Dose Route Start Last Admin Trade Name Freq PRN Reason Stop Dose Admin Acetaminophen 1,000 mg 08/15/21 21:00 08/15/21 22:00 Acetaminophen 500mg Tab PO 08/15/21 21:01 1,000 mg ONCE ONE Administration Heparin Sodium (Porcine) 300 unit 08/16/21 01:57 Heparin Lock Flush 500 Units/5ml Syr IV 08/16/21 01:58 ONCE ONE Hydromorphone HCl 0.5 mg 08/16/21 00:47 08/16/21 01:05 Hydromorphone 2mg/Ml Syringe IV 08/16/21 00:48 0.5 mg ONCE ONE Administration Potassium Chloride/Water 100 mls @ 100 mls/hr 08/16/21 00:00 08/16/21 00:31 Jordin
[2021-08-15 21:45] VITALS: BP 187/80; PULSE 62; O2SAT 100
[2021-08-15 22:01] VITALS: BP 178/94; PULSE 57; O2SAT 99
[2021-08-15 22:32] LABS: Microscopic, Urine URINE MICROSCOPIC (MICROSCOPIC)
[2021-08-15 22:33] LABS: Appearance,Urine CLEAR (Clear); Bilirubin,Urine Negative (Negative); Blood, Urine Negative (Negative); Color,Urine YELLOW (Yellow); Glucose,Urine (UA) Negative (Negative); Ketones,Urine Negative (Negative); Leukocyte Esterase,Urine Negative (Negative); Nitrate,Urine Negative (Negative); Protein,Urine Negative (Negative); Urobilinogen,Urine 0.2 EU/dl (0.2)
[2021-08-15 23:00] VITALS: BP 169/92; PULSE 63; O2SAT 97
[2021-08-15 23:36] LABS: Basophils % 0.6 % (0.1-2.0); Eosinophils # 0.1 K/mm3 (0.0-0.4); Eosinophils % 1.9 % (0.1-12.0); Hematocrit 33.4 % (37.0-47.0); Hemoglobin 10.8 g/dL (12.2-16.2); Lymphocytes # 1.9 K/mm3 (0.7-4.5); Lymphocytes % 28.6 % (10-50); Mean Corpuscular HGB Conc 32.4 g/dL (31.8-35.4); Mean Corpuscular Hemoglobin 29.1 pg (27.0-31.2); Mean Corpuscular Volume 89.7 fl (81-99); Mean Platelet Volume 10.5 fl (7.4-10.4); Monocytes # 0.4 K/mm3 (0.1-1.0); Monocytes % 5.9 % (1.7-9.3); Neutrophils # 4.2 K/mm3 (1.8-7.8); Platelet Count 282 K/mm3 (142-424); Red Blood Count 3.72 M/mm3 (4.20-5.40); Red Cell Distribution Width 14.2 % (11.5-17.5); White Blood Count 6.7 K/mm3 (4.8-10.8)
--- NOTE | 2021-08-15 23:38 | PC.NURSE ---
port accessed at [id number]
[2021-08-15 23:50] LABS: Magnesium 1.8 mg/dl (1.6-2.3)
[2021-08-15 23:51] LABS: Alanine Aminotransferase 18 U/L (12-78); Albumin Level 3.7 g/dl (3.5-5.0); Albumin/Globulin Ratio 1.2 (1.1-1.8); Alkaline Phosphatase 84 U/L (38-126); Anion Gap 6.9 mEq/L (5-15); Aspartate Amino Transferase 38 U/L (14-36); Bilirubin,Total 0.3 mg/dl (0.2-1.3); Blood Urea Nitrogen 10 mg/dl (7-17); Calcium 8.8 mg/dl (8.4-10.2); Carbon Dioxide 28 mmol/L (22.0-30.0); Chloride 107 mmol/L (98-107); Creatinine Clearance Estimated 65 mL/min (50-200); Estimated Glomerular Filt Rate 84 ml/min (>60); GFR (African American) 102 ML/MIN (>60); Globulin 3.1 g/dL (1.3-3.2); Glucose 103 mg/dl (74-100); Sodium 139 mmol/L (136-145); Total Protein,Serum 6.8 g/dl (6.3-8.2)
[2021-08-15 23:55] LABS: Potassium 2.9 mmoL/L (3.5-5.1)
[2021-08-16 00:03] LABS: Troponin I < 0.01 ng/ml (0.00-0.034)
[2021-08-16 00:07] VITALS: BP 194/101; PULSE 64; O2SAT 97
--- NOTE | 2021-08-16 00:40 | PC.NURSE ---
Pt placed on heart monitor and IV K+ infusing per pump
[2021-08-16 02:21] VITALS: BP 187/101; PULSE 78; RESP 16; TEMP 37.2; O2SAT 98
== END 2021-08-16 02:40 | disposition home or self-care (01) ==
PROVIDERS: Emergency Provider Student in an Organized Health Care Education/Training Program; PCP Emergency Medicine
DX: M25.562 Pain in left knee (principal); R51.9 Headache, unspecified; W01.0XXA Fall on same level from slipping, tripping and stumbling without subsequent striking against object, initial encounter; Y92.019 Unspecified place in single-family (private) house as the place of occurrence of the external cause; E87.6 Hypokalemia; R42 Dizziness and giddiness; F41.8 Other specified anxiety disorders; K21.9 Gastro-esophageal reflux disease without esophagitis; E78.5 Hyperlipidemia, unspecified; Z88.8 Allergy status to other drugs, medicaments and biological substances
CPT/HCPCS: 70450; 72131; 73562; 80053; 81001; 83735; 84484; 85025; 93005; 96366; 99283; J1642

== ENCOUNTER 2021-09-14 14:28 | Emergency (ER) | payer OTHER, SELFPAY ==
[2021-09-14 14:46] VITALS: BP 150/84; PULSE 97; RESP 20; TEMP 36.9; O2SAT 99; BMI 29.8
--- NOTE | 2021-09-14 14:50 | HMH.EDGENADL ---
ED Disposition Clinical Impression: Viral illness Sinusitis Qualifiers: Sinusitis location: unspecified location Chronicity: acute Recurrence: not specified as recurrent Qualified Code(s): J01.90 - Acute sinusitis, unspecified Disposition: Home, Self-Care Condition on Discharge: Good Instructions: Sinusitis, DI for Viral Syndrome, DI for COVID-19 (Suspected or Confirmed ) Prescriptions: Albuterol Sulfate [Proventil-HFA 90mcg/puff Inh] 1 - 2 puffs IH Q6HP PRN #1 each PRN Reason: Wheezing Transmission Status: Pending to Clinic [facility] Doxycycline Hyclate [Doxycycline Hyclate 100mg Tablet] 100 mg PO BID #20 tab Transmission Status: Pending to [facility] Ondansetron [Zofran 4mg ODT] 4 mg PO TIDP PRN #15 tab PRN Reason: Nausea And Vomiting Transmission Status: Pending to [facility] Referrals: Reuben Fong MD [Primary Care Provider] - - Critical Care Critical Care Time: No Attestation: On 09/14/21, the high probability of a clinically significant, sudden or life threatening deterioration of the following system(s) required my full and direct attention, intervention and personal management. The time I documented below is in addition to time spent performing reported procedures but includes the following listed in this critical care notation. Medical Decision Making - Medical Records Medical records reviewed: Yes: I reviewed the patient's medical records. - Grant Inquiry Pt receiving controlled substance: No Orders (Tests/Meds): ORDERS Category Date Time Status Covid-19 Nasal PCR ([facility]) Routine Lab 09/14/21 14:49 Ordered Influenza A&B Antigens, Rapid [Rapid Influenza A&B Lab 09/14/21 14:49 Ordered Antigens] Stat General Adult HPI - General Stated complaint: covid exposure, symptoms Time Seen by Provider: 09/14/21 14:50 - History of Present Illness HPI narrative: 1 day uri symptoms, flu like symptoms Onset (ago): day(s) (1) Radiation: non-radiation Severity: moderate Consistency: constant, intermittent Relieving factors: none Exacerbating factors: none Associated symptoms: cough, fever/chills, nausea/vomiting - Related Data Home Medications Medication Instructions Recorded Confirmed Duloxetine HCl [Cymbalta] See Rx Instructions .ROUTE .COMPLEX 05/04/21 09/10/21 Furosemide [Furosemide 20mg Tab*] See Rx Instructions .ROUTE .COMPLEX 05/04/21 09/10/21 Spironolactone [Spironolactone 25 mg PO DAILY 05/04/21 09/10/21 25mg Tablet] Previous Rx's Medication Instructions Recorded aspirin 81 mg tablet,delayed 81 mg PO DAILY #100 tab 10/01/20 release loratadine 10 mg tablet See Rx Instructions .ROUTE 05/14/21 .COMPLEX #90 tablet pantoprazole 40 mg tablet,delayed See Rx Instructions .ROUTE 05/14/21 release .COMPLEX #90 tablet alendronate 70 mg tablet See Rx Instructions .ROUTE 07/12/21 .COMPLEX #4 tablet levetiracetam 500 mg tablet See Rx Instructions .ROUTE 07/12/21 .COMPLEX #30 tablet ondansetron HCl 4 mg tablet See Rx Instructions .ROUTE 07/12/21 .COMPLEX #30 tab clonazepam 0.5 mg tablet 0.5 mg PO TID #90 tab 08/04/21 hydrocodone 10 mg-acetaminophen 1 tab PO QID PRN #120 tab 08/04/21 325 mg tablet metoprolol succinate 25 mg See Rx Instructions .ROUTE 08/12/21 tablet,extended release 24 hr .COMPLEX #30 tab Potassium Chloride 20 meq PO BID 10 Days #20 tab 08/16/21 citalopram 20 mg tablet See Rx Instructions .ROUTE 08/16/21 .COMPLEX #30 tab loperamide 2 mg capsule 2 mg PO Q6H PRN #30 cap 08/17/21 tramadol 50 mg tablet 50 mg PO Q8H #90 tab 08/23/21 Albuterol Sulfate [Proventil-HFA 1 - 2 puffs IH Q6HP PRN #1 each 09/14/21 90mcg/puff Inh] Doxycycline Hyclate [Doxycycline 100 mg PO BID #20 tab 09/14/21 Hyclate 100mg Tablet] Ondansetron [Zofran 4mg ODT] 4 mg PO TIDP PRN #15 tab 09/14/21 Allergies Allergy/AdvReac Type Severity Reaction Status Date / Time codeine [CODEINE] Allergy Unknown Verified 09/10/21 14:57
--- NOTE | 2021-09-14 14:59 | PC.NURSE ---
swabs sent to lab
[2021-09-14 15:14] VITALS: BP 144/79; PULSE 97; RESP 20; TEMP 36.9; O2SAT 98
== END 2021-09-14 15:16 | disposition home or self-care (01) ==
PROVIDERS: Emergency Provider Emergency Medicine; PCP Emergency Medicine
DX: B34.9 Viral infection, unspecified (principal); J01.90 Acute sinusitis, unspecified; F41.9 Anxiety disorder, unspecified; I50.9 Heart failure, unspecified; F32.A Depression, unspecified; K21.9 Gastro-esophageal reflux disease without esophagitis; E03.9 Hypothyroidism, unspecified
CPT/HCPCS: 87275; 87276; 99282; C9803; U0003; U0005

== ENCOUNTER → 2021-10-04 14:16 | Outpatient (CLI) | payer OTHER, SELFPAY ==
--- NOTE | 2021-10-04 14:34 | XR_ITS ---
FINAL REPORT TECHNIQUE: Chest PA & Lateral CLINICAL HISTORY: Chest congestion COMPARISON: May 04, 2021 FINDINGS: 2 views of the chest were performed. A left-sided chest port terminates in the SVC. The heart is mildly enlarged. The mediastinum is within normal limits. There are chronic changes in both lungs. There is no acute cardiopulmonary process. There are no pleural effusions. There is no pneumothorax. The bony thorax appears intact. IMPRESSION: No acute cardiopulmonary process. Reviewed, Interpreted and Dictated by Bill Thomas MD Transcribed by Saad Colbert Authenticated by Bill Thomas MD on 10/04/2021 04:07:35 PM [facility]
[2021-10-04 14:35] LABS: Adenovirus,PCR Not Detected (NotDetected); Bordetella Pertussis Not Detected (NotDetected); Chlamydophila Pneumoniae, PCR Not Detected (NotDetected); Coronavirus 19, PCR Not Detected (NotDetected); Coronavirus 229E Not Detected (NotDetected); Coronavirus NL63 Not Detected (NotDetected); Coronavirus OC43 Not Detected (NotDetected); Coronovirus HKU1,PCR Not Detected (NotDetected); Influenza A, PCR Not Detected (NotDetected); Influenza AH1, 2009 Not Detected (NotDetected); Influenza AH1, PCR Not Detected (NotDetected); Influenza AH3,PCR Not Detected (NotDetected); Influenza B, PCR Not Detected (NotDetected); Mycoplasma Pneumoniae, PCR Not Detected (NotDetected); Parainfluenza 1, PCR Not Detected (NotDetected); Parainfluenza 2, PCR Not Detected (NotDetected); Parainfluenza 3, PCR Not Detected (NotDetected); Parainfluenza 4, PCR Not Detected (NotDetected); Respiratory Syncytial Virus Not Detected (NotDetected); Rhinovirus/Enterovirus Not Detected (NotDetected)
[2021-10-04 18:17] LABS: Human Metapneumovirus Detected (NotDetected)
== END ==
PROVIDERS: PCP Emergency Medicine; Visit Provider Emergency Medicine
DX: R09.89 Other specified symptoms and signs involving the circulatory and respiratory systems (principal); Z20.822 Contact with and (suspected) exposure to COVID-19; B97.81 Human metapneumovirus as the cause of diseases classified elsewhere
CPT/HCPCS: 71045; 87581; 87632; 87798; C9803; U0003; U0005

== ENCOUNTER → 2021-11-15 11:43 | Outpatient (CLI) | payer OTHER, SELFPAY ==
[2021-11-15 12:39] LABS: Basophils % 0.5 % (0.1-2.0); Eosinophils # 0.2 K/mm3 (0.0-0.4); Eosinophils % 3.3 % (0.1-12.0); Hematocrit 32.8 % (37.0-47.0); Hemoglobin 10.7 g/dL (12.2-16.2); Lymphocytes % 31.5 % (10-50); Mean Corpuscular HGB Conc 32.8 g/dL (31.8-35.4); Mean Corpuscular Hemoglobin 29.2 pg (27.0-31.2); Mean Corpuscular Volume 89.1 fl (81-99); Monocytes # 0.3 K/mm3 (0.1-1.0); Monocytes % 4.4 % (1.7-9.3); Neutrophils # 3.9 K/mm3 (1.8-7.8); Neutrophils % 60.3 % (37.0-80.0); Platelet Count 239 K/mm3 (142-424); Red Blood Count 3.68 M/mm3 (4.20-5.40); Red Cell Distribution Width 15.4 % (11.5-17.5); White Blood Count 6.4 K/mm3 (4.8-10.8)
[2021-11-15 12:46] LABS: Alanine Aminotransferase 17 U/L (12-78); Albumin/Globulin Ratio 1.4 (1.1-1.8); Alkaline Phosphatase 62 U/L (38-126); Anion Gap 6.6 mEq/L (5-15); Aspartate Amino Transferase 31 U/L (14-36); Bilirubin,Total 0.5 mg/dl (0.2-1.3); Blood Urea Nitrogen 11 mg/dl (7-17); Calcium 8.2 mg/dl (8.4-10.2); Carbon Dioxide 28 mmol/L (22.0-30.0); Chloride 109 mmol/L (98-107); Estimated Glomerular Filt Rate 72 ml/min (>60); GFR (African American) 87 ML/MIN (>60); Globulin 2.9 g/dL (1.3-3.2); Glucose 94 mg/dl (74-100); Lipase 100 U/L (23-300); Potassium 3.6 mmoL/L (3.5-5.1); Sodium 140 mmol/L (136-145); Total Protein,Serum 6.9 g/dl (6.3-8.2)
== END ==
PROVIDERS: Visit Provider Family Medicine
DX: R19.8 Other specified symptoms and signs involving the digestive system and abdomen (principal)
CPT/HCPCS: 36415; 80053; 83690; 85025; J1642

== ENCOUNTER → 2021-11-22 11:02 | Outpatient (CLI) | payer OTHER, SELFPAY ==
--- NOTE | 2021-11-22 11:03 | CT_ITS ---
FINAL REPORT TECHNIQUE: Axial images through the abdomen and pelvis were performed without contrast.This study was performed with techniques to keep radiation doses as low as reasonably achievable, (ALARA). Individualized dose reduction techniques using automated exposure control or adjustment of mA and/or kV according to the patient's size were employed. CLINICAL HISTORY: Rectal Bleeding COMPARISON: 11/15/2020 FINDINGS: ABDOMEN: The lung bases demonstrate right middle lobe and lingular scarring. The heart size is normal. Limited images of the liver are unremarkable. Patient is status post cholecystectomy. Previously seen intra and extrahepatic biliary ductal dilatation is again identified. The spleen is normal. No adrenal mass is identified. The aorta is normal in caliber. There is no significant free fluid or adenopathy. There is no nephrolithiasis. There is no hydronephrosis. PELVIS: The appendix is not identified. Calcified phleboliths in the pelvis. The urinary bladder is unremarkable. There is no significant free fluid or adenopathy. IMPRESSION: Acute process of the abdomen or pelvis. Reviewed, Interpreted and Dictated by Bill Thomas MD Transcribed by Monae Francis Authenticated by Bill Thomas MD on 11/22/2021 12:18:09 PM [facility]
== END ==
PROVIDERS: PCP Family Medicine; Visit Provider Emergency Medicine
DX: R19.8 Other specified symptoms and signs involving the digestive system and abdomen (principal)
CPT/HCPCS: 74176

== ENCOUNTER → 2021-12-01 09:23 | Outpatient (CLI) | payer OTHER, SELFPAY ==
[2021-12-01 18:34] LABS: Barbiturates Screen,Urine Negative ng/ml (<200)
[2021-12-01 18:36] LABS: Benzodiazepines Screen,Urine Positive ng/ml (<200)
[2021-12-01 18:37] LABS: Cannabinoid Screen,Urine Negative ng/ml (<50); Cocaine Screen,Urine Negative ng/ml (<300)
[2021-12-01 18:38] LABS: Methadone Screen,Urine Negative ng/ml (<300)
[2021-12-01 18:39] LABS: Opiate Screen,Urine Negative ng/ml (<300); Phencyclidine Screen,Urine Negative ng/ml (<25)
[2021-12-01 18:51] LABS: Amphetamine/Metha Screen,Urine Negative ng/ml (<1000)
== END ==
PROVIDERS: Visit Provider Emergency Medicine
DX: M54.9 Dorsalgia, unspecified (principal)
CPT/HCPCS: 80305

== ENCOUNTER → 2021-12-14 12:54 | Outpatient (CLI) | payer OTHER, SELFPAY ==
--- NOTE | 2021-12-14 12:54 | MM_ITS ---
PROCEDURE INFORMATION: Exam: MG Bilateral Screening 3D Mammography Exam date and time: 12/14/2021 1:10 PM Age: 66 years old Clinical indication: Screening examination. No family history of breast cancer. TECHNIQUE: Imaging protocol: Bilateral Screening tomosynthesis and 2D mammography including computer-aided detection (CAD) when performed. COMPARISON: 1. MG MM DIG MAMM DX UNILAT LT CAD 08/24/2020 1:05 PM 2. MG MM DIG SCREENING MAMM BI W/CAD 07/30/2020 1:52 PM 3. MG DMSB DIGITAL MAMM-SCREEN BILATERAL 10/26/2011 12:37 PM 4. US BREAST LT COMPLETE 08/24/2020 1:50 PM FINDINGS: MAMMOGRAPHY: Breast composition: There are scattered areas of fibroglandular density. Mass: No suspicious masses. Architectural distortion: None. Calcifications: No suspicious calcifications. Asymmetric density: None. Skin thickening: None. Axillary adenopathy: None. Other findings: Left Port-A-Cath over the axilla, limits evaluation, accentuates the importance of clinical breast exam. IMPRESSION: No mammographic evidence of malignancy. Annual screening is recommended unless otherwise clinically indicated. ASSESSMENT: BI-RADS Category 1: Negative
== END ==
PROVIDERS: PCP Family Medicine; Visit Provider Emergency Medicine
DX: Z12.31 Encounter for screening mammogram for malignant neoplasm of breast (principal)
CPT/HCPCS: 77063; 77067

== ENCOUNTER 2021-12-14 14:03 | Emergency (ER) | payer OTHER, SELFPAY ==
[2021-12-14 14:04] VITALS: BP 131/78; PULSE 66; RESP 16; TEMP 36.6; O2SAT 97; BMI 27.9
--- NOTE | 2021-12-14 14:12 | HMH.EDGENADL ---
ED Disposition Clinical Impression: Abdominal cramping, History of constipation Disposition: Home, Self-Care Condition on Discharge: Good Instructions: DI for Abdominal Pain-Adult, Constipation Additional Instructions: follow up PCP return here for worse or any concerns Prescriptions: Dicyclomine HCl [Bentyl 10mg capsule] 10 mg PO Q8 PRN 5 Days #15 cap PRN Reason: Cramping Transmission Status: Pending to [facility] Referrals: Reuben Fong MD [Primary Care Provider] - - Critical Care Critical Care Time: No Attestation: On 12/14/21, the high probability of a clinically significant, sudden or life threatening deterioration of the following system(s) required my full and direct attention, intervention and personal management. The time I documented below is in addition to time spent performing reported procedures but includes the following listed in this critical care notation. Medical Decision Making - Medical Records Medical records reviewed: Yes: I reviewed the patient's medical records. - Grant Inquiry Pt receiving controlled substance: No Vital Signs: 12/14/21 14:04 12/14/21 14:34 Temperature 97.9 F Temperature Source Oral Pulse Rate 63 Pulse Rate [Right Radial] 66 Respiratory Rate 16 Blood Pressure 127/74 Blood Pressure [Left Arm] 131/78 Blood Pressure Mean [Left Arm] 95 Blood Pressure Source Automatic Cuff Blood Pressure Source [Left Arm] Automatic Cuff Blood Pressure Position Sitting Blood Pressure Position [Left Arm] Supine 02 Sat by Pulse Oximetry 97 95 Oxygen Delivery Method Room Air Room Air - Lab Data Lab Results 12/14/21 14:50: WBC 7.8, RBC 4.36, Hgb 12.5, Hct 39.4, MCV 90.4, MCH 28.7, MCHC 31.8, RDW 14.8, Plt Count 291, MPV 10.3, Neut % (Auto) 58.1, Lymph % (Auto) 31.9, [place] % (Auto) 4.7, Eos % (Auto) 4.4, Baso % (Auto) 0.9, Neut # (Auto) 4.5, Lymph # (Auto) 2.5, [place] # (Auto) 0.4, Eos # (Auto) 0.3, Baso # (Auto) 0.1 12/14/21 15:22: Sodium 140, Potassium 4.5, Chloride 110 H, Carbon Dioxide 24, Anion Gap 10.5, BUN 22 H, Creatinine 0.90, Estimated Creat Clear 65, Estimated GFR 63, Est GFR ( Amer) 76, Glucose 133 H, Calcium 8.7, Total Bilirubin 0.6, AST 41 H, ALT 23, Alkaline Phosphatase 53, Total Protein 6.6, Albumin 3.8, Globulin 2.8, Albumin/Globulin Ratio 1.4 Result diagrams: 12/14/21 14:50 12/14/21 15:22 Orders (Tests/Meds): ED MEDICATIONS Discontinued Medications Generic Name Dose Route Start Last Admin Trade Name Dylon PRN Reason Stop Dose Admin Hydromorphone HCl 0.5 mg 12/14/21 15:24 12/14/21 15:38 Hydromorphone 2mg/Ml Syringe IV 12/14/21 15:25 0.5 mg ONCE ONE Administration Metoclopramide HCl 10 mg 12/14/21 14:11 12/14/21 14:59 Metoclopramide Hcl 10mg/2ml Vial IVP 12/14/21 14:12 Not Given ONCE ONE Ondansetron HCl 8 mg 12/14/21 14:11 12/14/21 14:58 Ondansetron 4mg/2ml Vial IV 12/14/21 14:12 8 mg ONCE ONE Administration ORDERS Category Date Time Status Urinalysis-Acute [Urinalysis and Microscopic] Stat Lab 12/14/21 16:20 Received Medical Decision Narrative: 5pm reeval, appears well, still with crampy pain, no vomit here, gianni po well, ok with plan to miralax at home and rx bentyl and return here for worse General Adult HPI - General Stated complaint: no BM for 1 week, abd pains, vomiting Time Seen by Provider: 12/14/21 14:12 - History of Present Illness HPI narrative: constipation, no bm 10 days, passing gas, abd cramps/pain diffuse, n/v x3 today, h/o adhesions and crones dz Onset (ago): day(s) Radiation: non-radiation Severity: moderate Consistency: constant Relieving factors: none Exacerbating factors: eating Associated symptoms: nausea/vomiting - Related Data Home Medications Medication Instructions Recorded Confirmed Duloxetine HCl [Cymbalta] See Rx Instructions .ROUTE .COMPLEX 05/04/21 12/01/21 Furosemide [Furosemide 20mg Tab*] See Rx Instructions .ROUTE .
[2021-12-14 14:30] VITALS: BP 127/74; PULSE 69; RESP 18; O2SAT 94
[2021-12-14 14:34] VITALS: BP 127/74; PULSE 63; O2SAT 95
--- NOTE | 2021-12-14 14:34 | PC.NURSE ---
DURAN Sherman at [facility]
[2021-12-14 15:01] VITALS: BP 111/51; PULSE 59; RESP 18; O2SAT 99
[2021-12-14 15:03] LABS: Basophils # 0.1 K/mm3 (0-0.2); Basophils % 0.9 % (0.1-2.0); Eosinophils # 0.3 K/mm3 (0.0-0.4); Eosinophils % 4.4 % (0.1-12.0); Hematocrit 39.4 % (37.0-47.0); Hemoglobin 12.5 g/dL (12.2-16.2); Lymphocytes # 2.5 K/mm3 (0.7-4.5); Lymphocytes % 31.9 % (10-50); Mean Corpuscular HGB Conc 31.8 g/dL (31.8-35.4); Mean Corpuscular Hemoglobin 28.7 pg (27.0-31.2); Mean Corpuscular Volume 90.4 fl (81-99); Mean Platelet Volume 10.3 fl (7.4-10.4); Monocytes # 0.4 K/mm3 (0.1-1.0); Monocytes % 4.7 % (1.7-9.3); Neutrophils # 4.5 K/mm3 (1.8-7.8); Neutrophils % 58.1 % (37.0-80.0); Platelet Count 291 K/mm3 (142-424); Red Blood Count 4.36 M/mm3 (4.20-5.40); Red Cell Distribution Width 14.8 % (11.5-17.5); White Blood Count 7.8 K/mm3 (4.8-10.8)
[2021-12-14 15:39] LABS: Chloride 110 mmol/L (98-107); Potassium 4.5 mmoL/L (3.5-5.1); Sodium 140 mmol/L (136-145)
[2021-12-14 15:42] VITALS: BP 129/74; PULSE 62; RESP 18; O2SAT 100
[2021-12-14 15:42] LABS: Alanine Aminotransferase 23 U/L (12-78); Albumin Level 3.8 g/dl (3.5-5.0); Albumin/Globulin Ratio 1.4 (1.1-1.8); Alkaline Phosphatase 53 U/L (38-126); Anion Gap 10.5 mEq/L (5-15); Aspartate Amino Transferase 41 U/L (14-36); Bilirubin,Total 0.6 mg/dl (0.2-1.3); Blood Urea Nitrogen 22 mg/dl (7-17); Carbon Dioxide 24 mmol/L (22.0-30.0); Creatinine Clearance Estimated 65 mL/min (50-200); Estimated Glomerular Filt Rate 63 ml/min (>60); GFR (African American) 76 ML/MIN (>60); Globulin 2.8 g/dL (1.3-3.2); Total Protein,Serum 6.6 g/dl (6.3-8.2)
[2021-12-14 15:43] LABS: Calcium 8.7 mg/dl (8.4-10.2); Glucose 133 mg/dl (74-100)
--- NOTE | 2021-12-14 15:44 | XR_ITS ---
FINAL REPORT CLINICAL HISTORY: constipation for 7 days, crohns disease FINDINGS: ABDOMEN COMPLETE INCL CHEST Chest: A single view of the chest demonstrates no acute cardiopulmonary process. A left subclavian chest port is present. Abdomen: Flat and upright views of the abdomen demonstrate a nonspecific bowel gas pattern. There is a moderate amount of retained stool. There is no free air. There are postoperative changes in the right upper quadrant and in the pelvis. IMPRESSION: Nonspecific bowel gas pattern. Moderate amount of retained stool. Reviewed, Interpreted and Dictated by Luis Alberto Redd III, MD Transcribed by Diane Brian Authenticated by Luis Alberto Redd III, MD on 12/14/2021 04:46:59 PM [facility]
--- NOTE | 2021-12-14 15:50 | PC.NURSE ---
pt to xray
--- NOTE | 2021-12-14 16:01 | PC.NURSE ---
Pt returned from rad
[2021-12-14 16:23] LABS: Microscopic, Urine URINE MICROSCOPIC (MICROSCOPIC)
[2021-12-14 17:02] LABS: Appearance,Urine CLEAR (Clear); Bilirubin,Urine Negative (Negative); Blood, Urine Negative (Negative); Color,Urine YELLOW (Yellow); Glucose,Urine (UA) Negative (Negative); Ketones,Urine Negative (Negative); Leukocyte Esterase,Urine Negative (Negative); Nitrate,Urine Negative (Negative); Protein,Urine Negative (Negative); Specific Gravity, Urine >= 1.030 (1.005-1.030); Urobilinogen,Urine 0.2 EU/dl (0.2)
[2021-12-14 17:26] LABS: RBC,Urine Occasional #/hpf (0-3); Squamous Epithelial Cell,Urine Occasional #/hpf (0-5)
[2021-12-14 17:44] VITALS: BP 129/74; PULSE 59; RESP 16; TEMP 36.6; O2SAT 99
== END 2021-12-14 17:44 | disposition home or self-care (01) ==
PROVIDERS: Emergency Provider Emergency Medicine; PCP Emergency Medicine
DX: R07.9 Chest pain, unspecified (principal); M25.461 Effusion, right knee; R00.1 Bradycardia, unspecified; R11.2 Nausea with vomiting, unspecified; D64.9 Anemia, unspecified; I11.0 Hypertensive heart disease with heart failure; I50.9 Heart failure, unspecified; N28.9 Disorder of kidney and ureter, unspecified; K21.9 Gastro-esophageal reflux disease without esophagitis; R78.5 Finding of other psychotropic drug in blood; E03.9 Hypothyroidism, unspecified; G43.909 Migraine, unspecified, not intractable, without status migrainosus; G40.909 Epilepsy, unspecified, not intractable, without status epilepticus; M19.90 Unspecified osteoarthritis, unspecified site; K75.9 Inflammatory liver disease, unspecified; K44.9 Diaphragmatic hernia without obstruction or gangrene; F32.A Depression, unspecified; F41.9 Anxiety disorder, unspecified; Z79.1 Long term (current) use of non-steroidal anti-inflammatories (NSAID); Z79.51 Long term (current) use of inhaled steroids; Z79.82 Long term (current) use of aspirin; Z79.899 Other long term (current) drug therapy; Z88.5 Allergy status to narcotic agent; Z88.8 Allergy status to other drugs, medicaments and biological substances; Z91.041 Radiographic dye allergy status; Z91.011 Allergy to milk products; Z87.19 Personal history of other diseases of the digestive system; Z95.0 Presence of cardiac pacemaker
CPT/HCPCS: 74021; 80053; 81001; 85025; 96374; 96375; 99285; J2405

== ENCOUNTER 2021-12-21 12:10 | Outpatient (CLI) | payer OTHER, SELFPAY | END 2021-12-21 12:29 | disposition home or self-care (01) | LOC: INF 12:13 | PROVIDERS: PCP Emergency Medicine; Visit Provider Surgery | DX: Z45.2 Encounter for adjustment and management of vascular access device (principal) | CPT/HCPCS: 96523; J1642 ==

== ENCOUNTER 2022-01-01 23:03 | Emergency (ER) | payer OTHER, SELFPAY ==
[2022-01-01 23:05] VITALS: BP 145/78; PULSE 72; RESP 18; TEMP 36.6; O2SAT 97; BMI 27.9
--- NOTE | 2022-01-01 23:16 | HMH.EDGENADL ---
ED Disposition Clinical Impression: Fall Qualifiers: Encounter type: initial encounter Qualified Code(s): W19.XXXA - Unspecified fall, initial encounter Disposition: Home, Self-Care Condition on Discharge: Good Instructions: How to Prevent Falls Referrals: Reuben Fong MD [Primary Care Provider] - - Critical Care Critical Care Time: No Attestation: On , the high probability of a clinically significant, sudden or life threatening deterioration of the following system(s) required my full and direct attention, intervention and personal management. The time I documented below is in addition to time spent performing reported procedures but includes the following listed in this critical care notation. Medical Decision Making - Medical Records Medical records reviewed: Yes: I reviewed the patient's medical records. - Grant Inquiry Pt receiving controlled substance: No Vital Signs: 01/01/22 23:05 01/01/22 23:30 01/02/22 00:00 Temperature 97.9 F Temperature Source Oral Pulse Rate 65 64 Pulse Rate [Left] 72 Respiratory Rate 18 Blood Pressure 125/79 108/63 L Blood Pressure [Right Arm] 145/78 H Blood Pressure Mean [Right Arm] 100 02 Sat by Pulse Oximetry 97 97 97 Oxygen Delivery Method Room Air Room Air Room Air 01/02/22 01:07 01/02/22 01:29 01/02/22 02:02 Temperature Temperature Source Pulse Rate 69 57 L 59 L Pulse Rate [Left] Respiratory Rate Blood Pressure 151/84 H 152/85 H 108/77 L Blood Pressure [Right Arm] Blood Pressure Mean [Right Arm] 02 Sat by Pulse Oximetry 99 99 96 Oxygen Delivery Method Room Air Room Air Room Air - Lab Data Lab results reviewed: Yes: I reviewed the patient's lab results. Lab Results 01/01/22 23:27: WBC 7.0, RBC 3.47 L, Hgb 10.0 L, Hct 30.9 L, MCV 89.2, MCH 28.9, MCHC 32.4, RDW 14.7, Plt Count 283, MPV 9.7, Neut % (Auto) 55.0, Lymph % (Auto) 29.1, [place] % (Auto) 5.9, Eos % (Auto) 7.7, Baso % (Auto) 2.2 H, Neut # (Auto) 3.8, Lymph # (Auto) 2.0, [place] # (Auto) 0.4, Eos # (Auto) 0.5 H, Baso # (Auto) 0.2 01/01/22 23:27: D-Dimer 0.96 H 01/01/22 23:27: Sodium 140, Potassium 4.2, Chloride 108 H, Carbon Dioxide 28, Anion Gap 8.2, BUN 19 H, Creatinine 1.00, Estimated Creat Clear 65, Estimated GFR 55 L, Est GFR ( Amer) 67, Glucose 143 H, Calcium 8.9, Magnesium 1.9, Total Bilirubin 0.2, AST 38 H, ALT 24, Alkaline Phosphatase 69, Total Creatine Kinase 89, CK-MB (CK-2) 0.6, CK-MB (CK-2) Rel Index 0.7, Troponin I < 0.01, C-Reactive Protein 15.8 H, NT-Pro-B Natriuret Pep 180 H, Total Protein 6.2 L, Albumin 3.4 L, Globulin 2.8, Albumin/Globulin Ratio 1.2 01/02/22 01:15: Lactate 1.2 Result diagrams: 01/01/22 23:27 01/01/22 23:27 Orders (Tests/Meds): ED MEDICATIONS Generic Name Dose Route Start Last Admin Trade Name Freq PRN Reason Stop Dose Admin Methocarbamol 500 mg 01/01/22 23:45 01/02/22 00:37 Methocarbamol 500mg Tablet PO 01/31/22 23:44 500 mg BID CEM Administration Discontinued Medications Generic Name Dose Route Start Last Admin Trade Name Freq PRN Reason Stop Dose Admin Acetaminophen 1,000 mg 01/01/22 23:53 01/02/22 00:37 Acetaminophen 500mg Tab PO 01/01/22 23:54 1,000 mg ONCE ONE Administration Ketorolac Tromethamine 15 mg 01/01/22 23:53 01/02/22 00:37 Ketorolac 30mg/Ml Vial IV 01/01/22 23:54 15 mg ONCE ONE Administration Lidocaine 1 each 01/01/22 23:54 01/02/22 00:37 Lidocaine 5% Transdermal Patch TP 01/01/22 23:55 1 each ONCE ONE Administration ORDERS Category Date Time Status EKG Request [ECG Request by /Sd] Stat Y 01/01/22 23:50 Ordered Medical Decision Narrative: Patient is a 66-year-old female presenting with a chief complaint of left hip pain secondary to fall due to generalized weakness and dizziness. Differential diagnosis includes, but is not limited to, fracture, dislocation, contusion/ecchymosis, electrolyte abnormality, underlying infection, ACS,
[2022-01-01 23:30] VITALS: BP 125/79; PULSE 65; O2SAT 97
--- NOTE | 2022-01-01 23:50 | ECG_ITS ---
APPROVED REPORT Exam: Resting ECG HR:66 bpm ECG Measurements Heart Rate 66 AXES [place] 216 P 57 QRSd 89 QRS 11 QT 423 T 56 QTc 436 Conclusion SINUS RHYTHM WITH FIRST DEGREE AV BLOCK NONSPECIFIC T-WAVE ABNORMALITY ABNORMAL ECG UNCONFIRMED REPORT Electronically signed by : Colin Durant MD 01/02/2022 19:08:47
--- NOTE | 2022-01-01 23:50 | CT_ITS ---
PROCEDURE INFORMATION: Exam: CT Head Without Contrast Exam date and time: 01/02/2022 12:24 AM Age: 66 years old Clinical indication: Injury or trauma; Fall; Blunt trauma (contusions or hematomas); Additional info: Fall, hit head TECHNIQUE: Imaging protocol: Computed tomography of the head without contrast. Radiation optimization: All CT scans at this facility use at least one of these dose optimization techniques: automated exposure control; mA and/or kV adjustment per patient size (includes targeted exams where dose is matched to clinical indication); or iterative reconstruction. COMPARISON: CT HEAD/BRAIN WO CON 08/15/2021 9:20 PM FINDINGS: Brain: There is diffuse cortical volume loss and hypoattenuation of the deep white matter. There are benign bilateral basal ganglia calcifications. The No evidence of acute intracranial hemorrhage. No acute cerebral edema or shift. Cerebral ventricles: Incidentally noted is cavum septum pellucidum and cavum vergae anatomic variant. No ventriculomegaly. Paranasal sinuses: Visualized sinuses are unremarkable. No fluid levels. Mastoid air cells: Visualized mastoid air cells are well aerated. Bones/joints: Unremarkable. No acute fracture. Soft tissues: Unremarkable. IMPRESSION: No acute intracranial process. Diffuse cortical atrophy and chronic deep white matter small vessel disease.
[2022-01-02] VITALS: BP 108/63; PULSE 64; O2SAT 97
[2022-01-02 00:02] LABS: Basophils # 0.2 K/mm3 (0-0.2); Basophils % 2.2 % (0.1-2.0); Eosinophils # 0.5 K/mm3 (0.0-0.4); Eosinophils % 7.7 % (0.1-12.0); Hematocrit 30.9 % (37.0-47.0); Lymphocytes % 29.1 % (10-50); Mean Corpuscular HGB Conc 32.4 g/dL (31.8-35.4); Mean Corpuscular Hemoglobin 28.9 pg (27.0-31.2); Mean Corpuscular Volume 89.2 fl (81-99); Mean Platelet Volume 9.7 fl (7.4-10.4); Monocytes # 0.4 K/mm3 (0.1-1.0); Monocytes % 5.9 % (1.7-9.3); Neutrophils # 3.8 K/mm3 (1.8-7.8); Platelet Count 283 K/mm3 (142-424); Red Blood Count 3.47 M/mm3 (4.20-5.40); Red Cell Distribution Width 14.7 % (11.5-17.5)
[2022-01-02 00:03] LABS: Chloride 108 mmol/L (98-107); Potassium 4.2 mmoL/L (3.5-5.1); Sodium 140 mmol/L (136-145)
[2022-01-02 00:05] LABS: Blood Urea Nitrogen 19 mg/dl (7-17); Creatinine Clearance Estimated 65 mL/min (50-200); Estimated Glomerular Filt Rate 55 ml/min (>60); GFR (African American) 67 ML/MIN (>60)
[2022-01-02 00:06] LABS: Alanine Aminotransferase 24 U/L (12-78); Albumin Level 3.4 g/dl (3.5-5.0); Albumin/Globulin Ratio 1.2 (1.1-1.8); Alkaline Phosphatase 69 U/L (38-126); Anion Gap 8.2 mEq/L (5-15); Aspartate Amino Transferase 38 U/L (14-36); Bilirubin,Total 0.2 mg/dl (0.2-1.3); Calcium 8.9 mg/dl (8.4-10.2); Carbon Dioxide 28 mmol/L (22.0-30.0); Creatine Kinase 89 U/L (30-135); Globulin 2.8 g/dL (1.3-3.2); Glucose 143 mg/dl (74-100); Magnesium 1.9 mg/dl (1.6-2.3); Total Protein,Serum 6.2 g/dl (6.3-8.2)
[2022-01-02 00:12] LABS: C-Reactive Protein 15.8 mg/L (0-4)
[2022-01-02 00:18] LABS: CKMB Relative Index 0.7 U/L (0-4.0); Creatine Kinase MB 0.6 ng/ml (0.0-2.03); NT Pro Brain Natriuretic Pep. 180 pg/mL (0-125)
[2022-01-02 00:28] LABS: Troponin I < 0.01 ng/ml (0.00-0.034)
--- NOTE | 2022-01-02 00:47 | XR_ITS ---
PROCEDURE INFORMATION: Exam: XR Left Femur Exam date and time: 01/02/2022 12:45 AM Age: 66 years old Clinical indication: Injury or trauma; Fall; Blunt trauma; Thigh or upper leg; Left; Additional info: Fall, L hip pain TECHNIQUE: Imaging protocol: XR Left femur. Views: 2 views. COMPARISON: CR XR HIP LT 2-3V W/PELVIS 01/02/2022 12:45 AM FINDINGS: Bones/joints: No acute fracture. Soft tissues: Unremarkable. IMPRESSION: No acute findings.
--- NOTE | 2022-01-02 00:48 | XR_ITS ---
PROCEDURE INFORMATION: Exam: XR Left Hip Exam date and time: 01/02/2022 12:45 AM Age: 66 years old Clinical indication: Injury or trauma; Fall; Blunt trauma (contusions or hematomas); Left; Hip; Additional info: Left hip pain TECHNIQUE: Imaging protocol: XR Left hip. Views: 2 or 3 views hip with pelvis when performed. COMPARISON: CR XR PELVIS 1-2V 01/02/2022 12:42 AM FINDINGS: Bones/joints: No acute fracture. Soft tissues: Unremarkable. IMPRESSION: Negative hip series. No acute fracture or dislocation.
--- NOTE | 2022-01-02 00:48 | XR_ITS ---
PROCEDURE INFORMATION: Exam: XR Right Knee Exam date and time: 01/02/2022 12:44 AM Age: 66 years old Clinical indication: Injury or trauma; Fall; Blunt trauma; Knee; Right; Additional info: B/l knee pain due to fall TECHNIQUE: Imaging protocol: XR Right knee. Views: 1 or 2 views. COMPARISON: CR XR KNEE RT 3V 07/23/2021 2:40 PM FINDINGS: Bones/joints: Mild to moderate joint space narrowing in the anterior and medial compartments with juxta-articular remodeling. No fracture or dislocation. No lytic or blastic destructive change to bone. Soft tissues: There appears to be soft tissue swelling superficial to the femur medial epicondyle. IMPRESSION: No acute process or fracture. Mild to moderate degenerative joint changes.
--- NOTE | 2022-01-02 00:48 | XR_ITS ---
PROCEDURE INFORMATION: Exam: XR Left Knee Exam date and time: 01/02/2022 12:44 AM Age: 66 years old Clinical indication: Injury or trauma; Fall; Blunt trauma; Knee; Left; Additional info: Fall, b/l knee pain TECHNIQUE: Imaging protocol: XR Left knee. Views: 3 views. COMPARISON: CR XR KNEE LT 3V 08/15/2021 9:33 PM FINDINGS: Bones/joints: Mild joint space narrowing in the medial compartments with juxta-articular remodeling. No fracture or dislocation. No lytic or blastic destructive change to bone. Soft tissues: Unremarkable. IMPRESSION: No acute process or fracture. Mild degenerative joint changes.
[2022-01-02 00:49] LABS: D-Dimer 0.96 ug/mL (0.0-0.5)
--- NOTE | 2022-01-02 00:49 | XR_ITS ---
PROCEDURE INFORMATION: Exam: XR Pelvis Exam date and time: 01/02/2022 12:42 AM Age: 66 years old Clinical indication: Injury or trauma; Fall; Blunt trauma (contusions or hematomas); Left; Hip; Additional info: Fall, left hip pain TECHNIQUE: Imaging protocol: XR pelvis. Views: 1 or 2 view. COMPARISON: CT ABDOMEN PELVIS WO CON 11/22/2021 11:13 AM FINDINGS: Bones/joints: Unremarkable. No acute fracture. No lytic or blastic destructive changes to bone. Soft tissues: Unremarkable. IMPRESSION: No acute process. No fracture or dislocation.
[2022-01-02 01:07] VITALS: BP 151/84; PULSE 69; O2SAT 99
[2022-01-02 01:29] VITALS: BP 152/85; PULSE 57; O2SAT 99
[2022-01-02 01:32] LABS: Lactic Acid 1.2 mmol/L (0.7-2.1)
[2022-01-02 02:02] VITALS: BP 108/77; PULSE 59; O2SAT 96
[2022-01-02 02:26] VITALS: BP 108/77; PULSE 76; RESP 19; TEMP 36.7; O2SAT 98
== END 2022-01-02 02:51 | disposition home or self-care (01) ==
PROVIDERS: Emergency Provider Emergency Medicine; PCP Emergency Medicine
DX: M25.552 Pain in left hip (principal); M25.461 Effusion, right knee; R42 Dizziness and giddiness; R53.1 Weakness; J40 Bronchitis, not specified as acute or chronic; R00.1 Bradycardia, unspecified; E86.0 Dehydration; R19.7 Diarrhea, unspecified; D64.9 Anemia, unspecified; R79.1 Abnormal coagulation profile; I11.0 Hypertensive heart disease with heart failure; I50.9 Heart failure, unspecified; N28.9 Disorder of kidney and ureter, unspecified; K21.9 Gastro-esophageal reflux disease without esophagitis; E78.5 Hyperlipidemia, unspecified; E03.9 Hypothyroidism, unspecified; K44.9 Diaphragmatic hernia without obstruction or gangrene; K75.9 Inflammatory liver disease, unspecified; K50.90 Crohn's disease, unspecified, without complications; M19.90 Unspecified osteoarthritis, unspecified site; G40.909 Epilepsy, unspecified, not intractable, without status epilepticus; F41.9 Anxiety disorder, unspecified; Z79.51 Long term (current) use of inhaled steroids; Z79.1 Long term (current) use of non-steroidal anti-inflammatories (NSAID); Z79.82 Long term (current) use of aspirin; Z79.899 Other long term (current) drug therapy; Z88.5 Allergy status to narcotic agent; Z88.8 Allergy status to other drugs, medicaments and biological substances; Z91.011 Allergy to milk products; Z95.0 Presence of cardiac pacemaker; Z86.11 Personal history of tuberculosis; Z82.49 Family history of ischemic heart disease and other diseases of the circulatory system; Z83.438 Family history of other disorder of lipoprotein metabolism and other lipidemia; Z83.1 Family history of other infectious and parasitic diseases; W18.2XXA Fall in (into) shower or empty bathtub, initial encounter
CPT/HCPCS: 36415; 70450; 72170; 73502; 73552; 73560; 73562; 80053; 82550; 82553; 83605; 83735; 83880; 84484; 85025; 85378; 86140; 93005; 96374; 96375; 99285; J1642

== ENCOUNTER 2022-01-05 23:33 | Emergency (ER) | payer OTHER, SELFPAY ==
[2022-01-05 23:33] VITALS: BP 165/90; PULSE 63; RESP 16; TEMP 36.8; O2SAT 98; BMI 27.4
[2022-01-06] VITALS: BP 164/90; PULSE 61; RESP 20; O2SAT 99
--- NOTE | 2022-01-06 00:13 | CT_ITS ---
PROCEDURE INFORMATION: Exam: CT Head Without Contrast Exam date and time: 01/06/2022 12:24 AM Age: 66 years old Clinical indication: Injury or trauma; Fall; Blunt trauma (contusions or hematomas); Consciousness not specified; Injury date: 01/06/22 TECHNIQUE: Imaging protocol: Computed tomography of the head without contrast. Radiation optimization: All CT scans at this facility use at least one of these dose optimization techniques: automated exposure control; mA and/or kV adjustment per patient size (includes targeted exams where dose is matched to clinical indication); or iterative reconstruction. COMPARISON: No relevant recent comparison exams are available. FINDINGS: Brain: Chronic microvascular ischemic disease without acute intraparenchymal hemorrhage and no obvious acute ischemic stroke. No intra-or extra-axial fluid collection, no supra-or infratentorial mass, no mass effect or midline shift. Cerebral ventricles: Mildly prominent ventricles, sulci and basal cisterns without evidence of hydrocephalus. Paranasal sinuses: No significant mucoperiosteal thickening in the visualized paranasal sinuses. Mastoid air cells: No mastoid effusion. Bones/joints: Visualized skull bones are grossly normal. Soft tissues: NA IMPRESSION: 1. Chronic microvascular disease and generalized atrophy without acute intracranial abnormality. 2. No evidence of acute hemorrhage, mass lesion or obvious acute ischemic infarction.
--- NOTE | 2022-01-06 00:13 | XR_ITS ---
PROCEDURE INFORMATION: Exam: XR Pelvis Exam date and time: 01/06/2022 12:31 AM Age: 66 years old Clinical indication: Pain and injury or trauma; Fall; Blunt trauma (contusions or hematomas); Hip pain; Left hip TECHNIQUE: Imaging protocol: XR pelvis. Views: 1 or 2 view. COMPARISON: CR XR HIP LT 2-3V W/PELVIS 01/02/2022 12:45 AM FINDINGS: Bones/joints: Unremarkable. No acute fracture. Soft tissues: Unremarkable. IMPRESSION: No acute findings.
--- NOTE | 2022-01-06 00:13 | CT_ITS ---
PROCEDURE INFORMATION: Exam: CT Cervical Spine Without Contrast Exam date and time: 01/06/2022 12:24 AM Age: 66 years old Clinical indication: Injury or trauma; Fall; Blunt trauma; Injury date: 01/06/22 TECHNIQUE: Imaging protocol: Computed tomography images of the cervical spine without contrast. Radiation optimization: All CT scans at this facility use at least one of these dose optimization techniques: automated exposure control; mA and/or kV adjustment per patient size (includes targeted exams where dose is matched to clinical indication); or iterative reconstruction. COMPARISON: No relevant recent comparison exams are available. FINDINGS: Bones/joints: Loss of normal curvature of the spine, alignment of the vertebral bodies is grossly normal. Segmentation anomaly at C3-C4. No evidence of acute compression fracture or deformity in the cervical spine. No displaced fracture involving the vertebral bodies or their posterior elements. Facet joints are normally aligned without facetal dislocation or subluxation. No fracture of the dens, lateral C1-C2 articulation, atlantooccipital joints and central atlantodental joint are unremarkable. Discs/Spinal canal/Neural foramina: Chronic degenerative changes in the visualized cervical spine. Lungs: Scarring, groundglass opacities, septal and pleural thickening in the lung apices. Soft tissues: Pre-and paravertebral soft tissues are grossly normal. Nodular lymphoid hyperplasia at the base of the tongue/vallecula. IMPRESSION: Chronic degenerative changes without an acute cervical spine injury or abnormality.
--- NOTE | 2022-01-06 00:13 | XR_ITS ---
PROCEDURE INFORMATION: Exam: XR Chest Exam date and time: 01/06/2022 12:31 AM Age: 66 years old Clinical indication: Injury or trauma; Fall; Blunt trauma (contusions or hematomas); Prior surgery TECHNIQUE: Imaging protocol: XR of the chest. Views: 1 view. COMPARISON: CR XR CHEST AP 10/04/2021 2:37 PM FINDINGS: Tubes, catheters and devices: Left-sided subclavian Port-A-Cath tip in the proximal SVC. Lungs: Emphysema. Chronic interstitial lung markings. No consolidation. Pleural spaces: Unremarkable. No pleural effusion. No pneumothorax. Heart/Mediastinum: Unremarkable. No cardiomegaly. Bones/joints: Unremarkable. IMPRESSION: No acute findings.
--- NOTE | 2022-01-06 00:27 | PC.NURSE ---
went in to assess patient and she had removed her own c-collar. MD advised it didnt have to be replaced at this time.
--- NOTE | 2022-01-06 00:41 | PC.NURSE ---
pt returned from rad
--- NOTE | 2022-01-06 00:43 | HMH.EDFALL ---
ED Disposition Clinical Impression: Fall Qualifiers: Encounter type: initial encounter Qualified Code(s): W19.XXXA - Unspecified fall, initial encounter Concussion without loss of consciousness Qualifiers: Encounter type: initial encounter Qualified Code(s): S06.0X0A - Concussion without loss of consciousness, initial encounter Pelvic contusion Qualifiers: Encounter type: initial encounter Qualified Code(s): S30.0XXA - Contusion of lower back and pelvis, initial encounter Disposition: Home, Self-Care Condition on Discharge: Good Instructions: How to Prevent Falls Additional Instructions: ice and see pcp for follow up Referrals: Reuben Fong MD [Primary Care Provider] - - Critical Care Critical Care Time: No Attestation: On 01/05/22, the high probability of a clinically significant, sudden or life threatening deterioration of the following system(s) required my full and direct attention, intervention and personal management. The time I documented below is in addition to time spent performing reported procedures but includes the following listed in this critical care notation. Medical Decision Making - Medical Records Medical records reviewed: Yes: I reviewed the patient's medical records. - Grant Inquiry Pt receiving controlled substance: No Vital Signs: 01/05/22 23:33 01/06/22 00:00 Temperature 98.3 F Temperature Source Oral Pulse Rate 61 Pulse Rate [Right] 63 Respiratory Rate 16 20 Blood Pressure 164/90 H Blood Pressure [Right Arm] 165/90 H Blood Pressure Mean 99 Blood Pressure Mean [Right Arm] 115 Blood Pressure Source [Right Arm] Automatic Cuff Blood Pressure Position [Right Arm] Sitting 02 Sat by Pulse Oximetry 98 99 Oxygen Delivery Method Room Air - Lab Data Lab results reviewed: Yes: I reviewed the patient's lab results. - Radiology Data #1 Image(s): Chest, Pelvis Image Reviewed: Yes I have reviewed radiologist's interpretation Preliminary Findings: No Fracture Seen - CT Data CT Scan: Head, C-Spine Time Received: 01:[address] Reviewed: Yes: I have viewed the radiologist's interpretation Preliminary Findings: No Fracture Seen Medical Decision Narrative: fall and stable exam with no fx - discussed fall safety with pt Fall HPI - General Chief Complaint: Fall Stated Complaint: Fall Time Seen by Provider: 01/06/22 00:00 Mode of Arrival: EMS Source of Information: Patient, EMS, Medical Record Limitations: No Limitations Description of Symptoms (Recalled from ER Triage Doc. by RN): pt advises she fell on some steps. Has complaints of multiple areas of pain but advises she fell earlier this week on the same steps - History of Present Illness HPI Narrative: trip fall with no loc and has hip and neck pain but no loc of focal neuro sx complaint: fall Onset (ago): hour(s) Fall from: standing Fall witnessed: yes, by family Place fall occurred: home Loss of consciousness: none Prolonged down time: no Symptoms prior to fall: none Context: tripped/slipped Location of injury: head, neck Severity: moderate Associated symptoms (after fall): denies - Related Data Home Medications Medication Instructions Recorded Confirmed Furosemide [Furosemide 20mg Tab*] See Rx Instructions .ROUTE .COMPLEX 05/04/21 01/05/22 Previous Rx's Medication Instructions Recorded loratadine 10 mg tablet See Rx Instructions .ROUTE 05/14/21 .COMPLEX #90 tablet metoprolol succinate 25 mg See Rx Instructions .ROUTE 08/12/21 tablet,extended release 24 hr .COMPLEX #30 tab Potassium Chloride 20 meq PO BID 10 Days #20 tab 08/16/21 citalopram 20 mg tablet See Rx Instructions .ROUTE 08/16/21 .COMPLEX #30 tab Albuterol Sulfate [Proventil-HFA 1 - 2 puffs IH Q6HP PRN #1 each 09/14/21 90mcg/puff Inh] albuterol sulfate 90 mcg/actuation 2 puff INHALATION Q4-6H PRN #8.5 g 10/04/21 aerosol inhaler loperamide 2 mg capsule 2 mg PO Q6H PRN #30 cap 10/04/21 aspirin 81 mg t
[2022-01-06 01:00] VITALS: BP 132/91; PULSE 63; O2SAT 98
[2022-01-06 01:37] VITALS: BP 131/88; PULSE 83; RESP 16; TEMP 36.4; O2SAT 95
== END 2022-01-06 01:39 | disposition home or self-care (01) ==
PROVIDERS: Emergency Provider Emergency Medicine; PCP Emergency Medicine
DX: S06.0X0A Concussion without loss of consciousness, initial encounter (principal); S30.0XXA Contusion of lower back and pelvis, initial encounter; W10.9XXA Fall (on) (from) unspecified stairs and steps, initial encounter; Y92.019 Unspecified place in single-family (private) house as the place of occurrence of the external cause; K21.9 Gastro-esophageal reflux disease without esophagitis; I10 Essential (primary) hypertension; E03.9 Hypothyroidism, unspecified; F41.8 Other specified anxiety disorders; E78.5 Hyperlipidemia, unspecified; Z79.899 Other long term (current) drug therapy
CPT/HCPCS: 70450; 71045; 72125; 72170; 96372; 99284

== ENCOUNTER → 2022-03-09 13:03 | Outpatient (CLI) | payer OTHER, SELFPAY ==
--- NOTE | 2022-03-09 13:07 | XR_ITS ---
PROCEDURE INFORMATION: Exam: XR Right Knee Exam date and time: 03/09/2022 1:09 PM Age: 66 years old Clinical indication: Pain; Knee; Right; Additional info: Knee pain TECHNIQUE: Imaging protocol: Radiologic exam of the Right knee. Views: 4 or more views. COMPARISON: CR XR KNEE RT 2V 01/02/2022 12:44 AM FINDINGS: Bones/joints: Mild diffuse bone demineralization. Osteophytosis and eburnation of the articulating surfaces of the patellofemoral and femorotibial articulations. Soft tissues: Normal. IMPRESSION: 1. Osteoarthritis. 2. Osteopenia.
== END ==
PROVIDERS: PCP Emergency Medicine; Visit Provider Orthopaedic Surgery
DX: M25.561 Pain in right knee (principal)
CPT/HCPCS: 73564

== ENCOUNTER 2022-03-12 10:50 | Emergency (ER) | payer OTHER, SELFPAY ==
--- NOTE | 2022-03-12 11:22 | XR_ITS ---
PROCEDURE INFORMATION: Exam: XR Chest Exam date and time: 03/12/2022 11:23 AM Age: 66 years old Clinical indication: Cough; Additional info: Cough, SOB TECHNIQUE: Imaging protocol: Radiologic exam of the chest. Views: 2 views. COMPARISON: CR XR CHEST AP 01/06/2022 12:31 AM FINDINGS: Tubes, catheters and devices: Left-sided subclavian Port-A-Cath again demonstrated with the tip in the region of the proximal superior vena cava. Lungs: Regions of parenchymal scarring in the right mid lung. Pleural spaces: Unremarkable. No pleural effusion. No pneumothorax. Heart/Mediastinum: Unremarkable. No cardiomegaly. Bones/joints: Unremarkable. IMPRESSION: No evidence of acute cardiopulmonary disease.
[2022-03-12 11:26] VITALS: BP 150/92; PULSE 69; RESP 18; TEMP 36.8; O2SAT 98; BMI 28.6
--- NOTE | 2022-03-12 11:27 | HMH.EDUTC ---
[facility] [place] Disposition Clinical Impression: Exposure to COVID-19 virus Acute bronchitis Qualifiers: Bronchitis organism: unspecified organism Qualified Code(s): J20.9 - Acute bronchitis, unspecified Disposition: Home, Self-Care Condition on Discharge: Good Instructions: DI for Acute Bronchitis, DI for COVID-19 (Suspected or Confirmed ), Preventing the Spread of Coronavirus Discharge Instructions Additional Instructions: Drink plenty of fluids. Take tylenol or ibuprofen for pain or fever. Take the medications as directed. Follow up with your regular doctor. GO TO THE ER FOR ANY WORSENING SYMPTOMS Quarantine until you know the results of your covid-19 test. Notify your school or workplace of your results and follow their instructions regarding return to work/school. Prescriptions: Benzonatate [Benzonatate 100mg cap] 100 mg PO TIDP PRN #30 cap PRN Reason: Cough Transmission Status: Received by [facility] predniSONE [Deltasone 10mg tablet] 10 mg PO DAILY 9 Days #21 tab Transmission Status: Received by [facility] Azithromycin [Z-Dionicio 250mg Tab*] 250 mg PO UD DOSE PK #6 tab Transmission Status: Received by [facility] Referrals: Reuben Fong MD [Primary Care Provider] - Time of Disposition: 12:24 Medical Decision Making - Medical Records Medical records reviewed: No: I reviewed the patient's medical records. - Grant Inquiry Pt receiving controlled substance: No Vital Signs: 03/12/22 11:26 03/12/22 12:28 Temperature 98.3 F 98.3 F Temperature Source Oral Pulse Rate 69 Pulse Rate [Left] 69 Respiratory Rate 18 18 Blood Pressure 150/92 H Blood Pressure [Right Arm] 150/92 H Blood Pressure Mean [Right Arm] 111 02 Sat by Pulse Oximetry 98 - Lab Data Lab Results 03/12/22 11:26: Strep Scn Rapid Clinic Negative 03/12/22 12:26: Chlamy pneumoniae PCR Not detected, Adenovirus (PCR) Not detected, B. pertussis DNA (PCR) Not detected, Coronavirus OC43 (PCR) Not detected, Coronavirus HKU1 (PCR) Not detected, Coronavirus 229E (PCR) Not detected, SARS-CoV-2 (PCR) Not detected, Coronavirus NL63 (PCR) Not detected, Human Metapneumovir PCR Not detected, Influenza A (H1) PCR Not detected, Influ A (H1N1/09) PCR Not detected, Influenza A (H3) PCR Not detected, Influenza Type A (PCR) Not detected, Influenza Type B (PCR) Not detected, M. pneumoniae (PCR) Not detected, Parainfluenza 1 (PCR) Not detected, Parainfluenza 2 (PCR) Not detected, Parainfluenza 3 (PCR) Not detected, Parainfluenza 4 (PCR) Not detected, RSV (PCR) Not detected, Entero/Rhino (PCR) Not detected Orders (Tests/Meds): ORDERS Category Date Time Status Strep Screen Confirmation Stat Micro 03/12/22 11:26 Received [facility] [place] HPI - General Stated complaint: shortness of breath Time Seen by Provider: 03/12/22 11:27 - History of Present Illness Provider Complaint: She c/o cough and chest congestion for the past 2 days. - Related Data Home Medications Medication Instructions Recorded Confirmed Furosemide [Furosemide 20mg Tab*] See Rx Instructions .ROUTE .COMPLEX 05/04/21 03/11/22 Previous Rx's Medication Instructions Recorded Potassium Chloride 20 meq PO BID 10 Days #20 tab 08/16/21 citalopram 20 mg tablet See Rx Instructions .ROUTE 08/16/21 .COMPLEX #30 tab Albuterol Sulfate [Proventil-HFA 1 - 2 puffs IH Q6HP PRN #1 each 09/14/21 90mcg/puff Inh] albuterol sulfate 90 mcg/actuation 2 puff INHALATION Q4-6H PRN #8.5 g 10/04/21 aerosol inhaler loperamide 2 mg capsule 2 mg PO Q6H PRN #30 cap 10/04/21 aspirin 81 mg tablet,delayed See Rx Instructions .ROUTE 10/06/21 release .COMPLEX #90 tab pantoprazole 40 mg tablet,delayed See Rx Instructions .ROUTE 11/15/21 release .COMPLEX #90 tablet Dicyclomine HCl [Bentyl 10mg 10 mg PO Q8 PRN 5 Days #15 cap 12/14/21 capsule] ondansetron 4 mg disintegrating See Rx Instructions .ROUTE 12/14/21 tablet .COMPLEX #15 each alendronate 70
[2022-03-12 11:32] LABS: UTC Strep Screen (Rapid) Negative (Negative)
[2022-03-12 12:28] VITALS: BP 150/92; PULSE 69; RESP 18; TEMP 36.8
[2022-03-12 14:03] LABS: Adenovirus,PCR Not Detected (NotDetected); Bordetella Pertussis Not Detected (NotDetected); Chlamydophila Pneumoniae, PCR Not Detected (NotDetected); Coronavirus 19, PCR Not Detected (NotDetected); Coronavirus 229E Not Detected (NotDetected); Coronavirus NL63 Not Detected (NotDetected); Coronavirus OC43 Not Detected (NotDetected); Coronovirus HKU1,PCR Not Detected (NotDetected); Human Metapneumovirus Not Detected (NotDetected); Influenza A, PCR Not Detected (NotDetected); Influenza AH1, 2009 Not Detected (NotDetected); Influenza AH1, PCR Not Detected (NotDetected); Influenza AH3,PCR Not Detected (NotDetected); Influenza B, PCR Not Detected (NotDetected); Mycoplasma Pneumoniae, PCR Not Detected (NotDetected); Parainfluenza 1, PCR Not Detected (NotDetected); Parainfluenza 2, PCR Not Detected (NotDetected); Parainfluenza 3, PCR Not Detected (NotDetected); Parainfluenza 4, PCR Not Detected (NotDetected); Respiratory Syncytial Virus Not Detected (NotDetected); Rhinovirus/Enterovirus Not Detected (NotDetected)
== END 2022-03-12 12:29 | disposition home or self-care (01) ==
PROVIDERS: Emergency Provider Nurse Practitioner Family; PCP Emergency Medicine
DX: J20.9 Acute bronchitis, unspecified (principal); Z20.822 Contact with and (suspected) exposure to COVID-19; Z79.899 Other long term (current) drug therapy; Z88.8 Allergy status to other drugs, medicaments and biological substances; Z88.6 Allergy status to analgesic agent; Z91.041 Radiographic dye allergy status; F41.9 Anxiety disorder, unspecified; I11.0 Hypertensive heart disease with heart failure; I50.9 Heart failure, unspecified; F32.9 Major depressive disorder, single episode, unspecified; K21.9 Gastro-esophageal reflux disease without esophagitis; E78.5 Hyperlipidemia, unspecified; K75.9 Inflammatory liver disease, unspecified
CPT/HCPCS: 71046; 87581; 87632; 87798; 87880; 99283; C9803; U0003; U0005

== ENCOUNTER → 2022-04-05 07:45 | Outpatient (CLI) | payer OTHER, SELFPAY ==
--- NOTE | 2022-04-05 07:45 | MR_ITS ---
FINAL REPORT CLINICAL HISTORY: knee pain. KNEE INSTABILITY. SYMPTOMS FOR 1 YEAR. NO INJURY OR TRAUMA. FINDINGS: Multi planar MR imaging was performed of the right knee. The anterior and posterior cruciate ligaments are intact. The quadriceps and patellar tendons are intact. There is abnormal linear signal in the posterior horn of the medial meniscus consistent with a tear. The lateral meniscus is intact. The medial and lateral collateral ligaments appear intact. The medial and lateral retinacula appear intact. There osteophytes along the undersurface of the patella in the medial joint margin. There are minimal osteochondral lesions along the articular surface of the medial femoral condyle. Small joint effusion is identified. There is a popliteal cyst measuring 6 cm. No evidence of soft tissue inflammatory reaction. IMPRESSION: Full-thickness tear posterior horn medial meniscus. Hypertrophic changes of osteoarthritis of the patella and medial joint margin. Reviewed, Interpreted and Dictated by Bill Thomas MD Transcribed by Ivanna Martin Authenticated and [facility]
== END ==
PROVIDERS: PCP Emergency Medicine; Visit Provider Orthopaedic Surgery
DX: M25.561 Pain in right knee (principal); G89.29 Other chronic pain
CPT/HCPCS: 73721

== ENCOUNTER 2022-04-18 10:02 | Emergency (ER) | payer MEDICARE, OTHER, SELFPAY ==
[2022-04-18 10:03] VITALS: BP 123/79; PULSE 67; RESP 16; TEMP 36.9; O2SAT 98; BMI 28.3
--- NOTE | 2022-04-18 10:09 | HMH.EDGENADL ---
Discharge Plan Disposition Patient Disposition: Home, Self-Care Condition: Good Chief Complaint: Nausea/Vomiting/Diarrhea Prescriptions Prescriptions: No Action loperamide [Imodium A-D] 2 mg capsule 2 mg PO Q6H PRN (Reason: loose stool) Qty: 30 0RF albuterol sulfate 90 mcg/actuation HFA aerosol inhaler 2 puff INHALATION Q4-6H PRN (Reason: bronchospasm) Qty: 8.5 5RF pantoprazole 40 mg tablet,delayed release (DR/EC) See Rx Instructions .ROUTE .COMPLEX Qty: 90 2RF Dose Instruction: TAKE 1 TABLET BY MOUTH EVERY DAY Rx Instructions: TAKE 1 TABLET BY MOUTH EVERY DAY spironolactone 25 mg tablet 25 mg PO BID Qty: 180 3RF buprenorphine-naloxone 8-2 mg tablet, sublingual 1 tab SL BID bupropion HCl 75 mg tablet 75 mg PO BID Qty: 30 0RF Rx Instructions: step one bupropion HCl 150 mg tablet sustained-release 12 hr 150 mg PO BID Qty: 60 1RF Rx Instructions: step two aspirin 81 mg tablet,delayed release (DR/EC) See Rx Instructions .ROUTE .COMPLEX Qty: 90 3RF Dose Instruction: TAKE ONE TABLET BY MOUTH EVERY DAY FOR heart health Rx Instructions: TAKE ONE TABLET BY MOUTH EVERY DAY FOR heart health alendronate 70 mg tablet See Rx Instructions .ROUTE .COMPLEX Qty: 4 5RF Dose Instruction: TAKE ONE TABLET BY MOUTH ONCE a WEEK Rx Instructions: TAKE ONE TABLET BY MOUTH ONCE a WEEK metoprolol succinate 25 mg tablet extended release 24 hr See Rx Instructions .ROUTE .COMPLEX Qty: 30 5RF Dose Instruction: TAKE ONE TABLET BY MOUTH EVERY DAY Rx Instructions: TAKE ONE TABLET BY MOUTH EVERY DAY loratadine 10 mg tablet See Rx Instructions .ROUTE .COMPLEX Qty: 90 5RF Dose Instruction: TAKE ONE TABLET BY MOUTH EVERY DAY Rx Instructions: TAKE ONE TABLET BY MOUTH EVERY DAY clonazepam [Klonopin] 0.5 mg tablet 0.5 mg PO BID Qty: 60 1RF gabapentin 300 mg capsule 300 mg PO TID Qty: 90 1RF ondansetron 4 mg tablet,disintegrating See Rx Instructions .ROUTE .COMPLEX Qty: 15 0RF Dose Instruction: DISSOLVE ONE TABLET BY MOUTH THREE TIMES DAILY NEEDED FOR NAUSEA AND VOMITING Rx Instructions: DISSOLVE ONE TABLET BY MOUTH THREE TIMES DAILY NEEDED FOR NAUSEA AND VOMITING citalopram [Celexa] 40 mg tablet 40 mg PO DAILY Qty: 30 1RF potassium chloride 20 MEQ tablet,ER particles/crystals 20 meq PO BID 10 Days Qty: 20 0RF benzonatate 100 MG capsule 100 mg PO TIDP PRN (Reason: Cough) Qty: 30 0RF Referrals Follow up/Referrals: Reuben Fong MD [Primary Care Provider] - See instructions Clinical Impressions Clinical Impression: Gastroenteritis Instructions Patient Instructions: DI for Diarrhea and Traveler's Diarrhea -- Adult, DI for Nausea -- Adult Discharge ED Provider: Eb Burr General Adult HPI General Chief complaint: Nausea/Vomiting/Diarrhea Stated complaint: vomiting Time Seen by Provider: 04/18/22 10:09 Mode of Arrival: Ambulatory History of Present Illness HPI narrative: 66 yo/F presenting with about 5 days N/V, loose stools. reports COVID contact, but had negative home test. A/W mild epigastric discomfort, denies other abdominal pain, fever, chills or other symptoms. She does report involuntary 9 pound weight loss, state she has been unable to keep anything down is concerned about dehydration. She has been taking zofran at home without complete relief. Related Data Home Medications Medication Instructions Recorded Confirmed buprenorphine 8 mg-naloxone 2 mg 1 tab sublingual BID 03/22/22 03/22/22 sublingual tablet Previous Rx's Medication Instructions Recorded potassium chloride 20 mEq 20 meq PO BID 10 days #20 tabs 08/16/21 tablet,extended release(part/cryst) albuterol sulfate 90 mcg/actuation 2 puff inhalation Q4-6H PRN 10/04/21 aerosol inhaler bronchospasm #8.5 grams loperamide 2 mg capsule (Imodium 2 mg PO Q6H PRN loose stool #30 10/04/21 A-D) caps aspirin 81 mg tablet,delayed See Rx Instructions .Route 10/06/21 release .COMPLEX #90 tabs pantoprazole 40 mg tablet,delayed See Rx Instructions .Route 11/15/21 release .COMPLEX #90 tabs alendronate 70 mg tablet See Rx Instructions .Route 12/29/21 .COMPLEX #4 tabs loratadine 10 mg tablet See Rx Instructions .Route 01/27/22 .COMPLEX #90 tabs metoprolol succinate 25 mg See Rx Instructions .Route 01/27/22 tablet,extended release 24 hr .COMPLEX #30 tabs spironolactone 25 mg tablet 25 mg PO BID #180 tabs 02/11/22 benzonatate 100 mg capsule 100 mg PO TIDP PRN Cough #30 caps 03/12/22 bupropion HCl 150 mg tablet,12 hr 150 mg PO BID #60 ea 03/22/22 sustained-release bupropion HCl 75 mg tablet 75 mg PO BID #30 tabs 03/22/22 clonazepam 0.5 mg tablet (Klonopin) 0.5 mg PO BID #60 tabs 03/23/22 gabapentin 300 mg capsule 300 mg PO TID #90 caps 03/23/22 ondansetron 4 mg disintegrating See Rx Instructions .Route 04/07/22 tablet .COMPLEX #15 ea citalopram 40 mg tablet (Celexa) 40 mg PO DAILY #30 tabs 04/08/22 Allergies Allergy/AdvReac Type Severity Reaction Status Date / Time codeine [CODEINE] Allergy Unknown Verified 03/22/22 13:26 Iodinated Contrast Media Allergy Unknown Verified 03/22/22 13:26 [IODINATED CONTRAST MEDIA - IV DYE] morphine [MORPHINE] Allergy Unknown Verified 03/22/22 13:26 prednisone [PREDNISONE] Allergy Unknown Verified 03/22/22 13:26 prochlorperazine Allergy Unknown Verified 03/22/22 13:26 [PROCHLORPERAZINE] promethazine [From PHENERGAN] Allergy Unknown Verified 03/22/22 13:26 cephalexin [From Keflex] Allergy Verified 03/22/22 13:26 metoclopramide [From Reglan] Allergy Verified 03/22/22 13:26 lactose AdvReac Intermediate Abdominal Verified 03/22/22 13:26 Pain PFSH PFSH Medical History Bilateral lower extremity edema Chest pain Dyspnea HTN (hypertension) Hx of Crohn's disease Knee effusion, right Positive D dimer Sinus bradycardia Social History Smoking Status: Never smoker second hand exposure: No alcohol intake: never substance use type: denies use current occupational status: disabled and other Travel in the last 8 weeks: None household members: none housing: apartment number of children: 2 current occupational exposures/hazards: No caffeine: Yes ROS Obtained: Yes Systems reviewed as appropriate & no additional complaints except as documented Constitutional Constitutional: Reports system reviewed and no additional complaints, except as documented Eyes Eyes: Reports system reviewed and no additional complaints, except as documented Cardiovascular Cardiovascular: Reports system reviewed and no additional complaints, except as documented Respiratory Respiratory: Reports system reviewed and no additional complaints, except as documented Gastrointestinal Gastrointestingal: Reports nausea and vomiting Genitourinary Female Genitourinary: Reports system reviewed and no additional complaints, except as documented Musculoskeletal Musculoskeletal: Reports system reviewed and no additional complaints, except as documented Integumentary/Breasts Skin/Breast: Reports system reviewed and no additional complaints, except as documented Neurologic Neurologic: Reports system reviewed and no additional complaints, except as documented Endocrine Endocrine: Reports system reviewed and no additional complaints, except as documented Physical Exam General General appearance: alert and in no apparent distress Head Head exam: atraumatic, normocephalic and normal inspection Eye Eye exam: Present normal appearance, PERRL and EOMI ENT ENT exam: Present normal exam, normal oropharynx, mucous membranes dry, TM's normal bilaterally and normal external ear exam Neck Neck exam: Present normal inspection, full ROM and trachea midline; Absent meningismus or lymphadenopathy Chest Chest inspection: Present normal inspection and symmetric chest wall rise; Absent tenderness Respiratory Respiratory exam: Present normal lung sounds bilaterally; Absent respiratory distress Cardiovascular Cardiovascular exam: Present regular rate and normal rhythm; Absent JVD Abdominal Exam Abdominal exam: Present soft and normal bowel sounds; Absent distention, tenderness or guarding Extremities Exam Extremities exam: Present normal inspection, full ROM and normal capillary refill; Absent calf tenderness Back Exam Back exam: Present normal inspection; Absent tenderness Neurological Exam Neurological exam: Present alert and oriented X3 Psychiatric Psychiatric exam: Present normal affect and normal mood Skin Skin exam: Present warm, dry, intact and normal color Lymphatic Lymphatic Findings: no adenopathy Medical Decision Making Medical Records Medical records reviewed: Yes I reviewed the patient's medical records. Grant Inquiry Pt receiving controlled substance: No Vital Signs: 04/18/22 10:03 04/18/22 11:12 Temperature 98.4 F Temperature Source Oral Pulse Rate 69 Pulse Rate [Radial] 67 Respiratory Rate 16 15 Blood Pressure 129/67 Blood Pressure [Right Arm] 123/79 Blood Pressure Mean 87 Blood Pressure Mean [Right Arm] 93 Blood Pressure Position [Right Arm] Sitting 02 Sat by Pulse Oximetry 98 98 Oxygen Delivery Method Room Air Lab Data Lab Results 04/18/22 10:10: Urine Color Yellow, Urine Appearance Sl cloudy, Urine pH 5.5, Ur Specific Mur[place]ugh >= 1.030, Urine Protein Trace, Urine Glucose (UA) Negative, Urine Ketones Negative, Urine Blood Negative, Urine Nitrate Negative, Urine Bilirubin 1+ A, Urine Urobilinogen 1.0, Ur Leukocyte Esterase 1+ A, Urine RBC None, Urine WBC 5-10, Ur Squamous Epith Cells 5-10, Urine Bacteria Trace 04/18/22 10:45: WBC 8.0, RBC 4.08 L, Hgb 11.4 L, Hct 36.7 L, MCV 90.0, MCH 27.9, MCHC 31.0 L, RDW 15.1, Plt Count 346, MPV 9.9, Neut % (Auto) 73.3, Lymph % (Auto) 19.1, Bartholomew % (Auto) 4.2, Eos % (Auto) 3.0, Baso % (Auto) 0.4, Neut # (Auto) 5.9, Lymph # (Auto) 1.5, Bartholomew # (Auto) 0.3, Eos # (Auto) 0.2, Baso # (Auto) 0.0 04/18/22 10:45: Sodium 137, Potassium 3.6, Chloride 103, Carbon Dioxide 27, Anion Gap 10.6, BUN 16, Creatinine 0.80, Estimated Creat Clear 65, Estimated GFR 72, Est GFR ( Amer) 87, Glucose 125 H, Calcium 9.3, Total Bilirubin 0.4, AST 26, ALT 17, Alkaline Phosphatase 73, Total Protein 7.3, Albumin 4.0, Globulin 3.3 H, Albumin/Globulin Ratio 1.2 Result diagrams: 04/18/22 10:45 04/18/22 10:45 Orders (Tests/Meds): ED MEDICATIONS Generic Name Dose Route Start Last Admin Trade Name Freq PRN Reason Stop Dose Admin Sodium Chloride 1,000 mls @ 999 mls/hr 04/18/22 10:30 04/18/22 10:47 Sod Chlor 0.9% 1000ml Bag IV 04/18/22 11:30 999 mls/hr .Q1H1M CEM Administration Discontinued Medications Generic Name Dose Route Start Last Admin Trade Name Freq PRN Reason Stop Dose Admin Ondansetron HCl 4 mg 04/18/22 10:20 04/18/22 10:47 Ondansetron 4mg/2ml Vial IV 04/18/22 10:21 4 mg ONCE ONE Administration Promethazine HCl 25 mg 04/18/22 10:17 04/18/22 10:48 Promethazine Hcl 25mg/Ml 1ml Vial IV 04/18/22 10:18 Not Given ONCE ONE Sodium Chloride 25 ml 04/18/22 10:17 Sodium Chloride 0.9% 25ml Bag IV 04/18/22 10:18 ONCE ONE ORDERS Category Date Time Status CMP [Comprehensive Metabolic Panel] Stat Lab 04/18/22 10:45 Completed Complete Blood Count Auto Diff Stat Lab 04/18/22 10:45 Completed Rapid PCR Covid and Flu A/B Stat Lab 04/18/22 11:10 Received Urinalysis and Microscopic Stat Lab 04/18/22 10:10 Completed Urine Culture Stat Micro 04/18/22 10:10 Received Reevaluation(s) Time: 11:21 Reevaluation #1: Patient doing well after treatment, fluids alf done, will complete. Discussed other options for management of nausea, patient has negative reactions to most other antiemetics. We will stay with Zofran for now. This does not appear to represent an acute flare of Crohn's disease, seems most consistent with an acute gastroenteritis. No marked lab abnormalities, particularly no renal impairment and no significant electrolyte disturbances. Overall stable for DC, advise follow-up with PCP Critical Care Time Critical Care Time Attestation: On , the high probability of a clinically significant, sudden or life threatening deterioration of the following system(s) required my full and direct attention, intervention and personal management. The time I documented below is in addition to time spent performing reported procedures but includes the following listed in this critical care notation.
--- NOTE | 2022-04-18 10:10 | PC.NURSE ---
pt ambulated to restroom for urine sample
--- NOTE | 2022-04-18 10:16 | PC.NURSE ---
sent urine on pt
[2022-04-18 10:19] LABS: Microscopic, Urine URINE MICROSCOPIC (MICROSCOPIC)
[2022-04-18 10:22] LABS: Appearance,Urine SL CLOUDY (Clear); Blood, Urine Negative (Negative); Color,Urine YELLOW (Yellow); Glucose,Urine (UA) Negative (Negative); Ketones,Urine Negative (Negative); Leukocyte Esterase,Urine 1+ (Negative); Nitrate,Urine Negative (Negative); PH,Urine 5.5 (5.0-8.5); Protein,Urine TRACE (Negative); Specific Gravity, Urine >= 1.030 (1.005-1.030)
--- NOTE | 2022-04-18 10:35 | PC.NURSE ---
Ivanna GARZON in room accessing Iv and starting fluids
[2022-04-18 10:38] LABS: Bilirubin,Urine 1+ (Negative)
[2022-04-18 10:39] LABS: Bacteria,Urine Trace /lpf
[2022-04-18] MEDS: 0.9 % SODIUM CHLORIDE 1,000 ML 999 ML IV (10:47)
[2022-04-18] MEDS: ONDANSETRON 4MG/2ML VIAL 4 MG IV (10:47)
[2022-04-18 10:51] LABS: Basophils % 0.4 % (0.1-2.0); Eosinophils # 0.2 K/mm3 (0.0-0.4); Hematocrit 36.7 % (37.0-47.0); Hemoglobin 11.4 g/dL (12.2-16.2); Lymphocytes # 1.5 K/mm3 (0.7-4.5); Lymphocytes % 19.1 % (10-50); Mean Corpuscular Hemoglobin 27.9 pg (27.0-31.2); Mean Platelet Volume 9.9 fl (7.4-10.4); Monocytes # 0.3 K/mm3 (0.1-1.0); Monocytes % 4.2 % (1.7-9.3); Neutrophils # 5.9 K/mm3 (1.8-7.8); Neutrophils % 73.3 % (37.0-80.0); Platelet Count 346 K/mm3 (142-424); Red Blood Count 4.08 M/mm3 (4.20-5.40); Red Cell Distribution Width 15.1 % (11.5-17.5)
[2022-04-18 10:59] LABS: Alanine Aminotransferase 17 U/L (12-78); Albumin/Globulin Ratio 1.2 (1.1-1.8); Alkaline Phosphatase 73 U/L (38-126); Anion Gap 10.6 mEq/L (5-15); Aspartate Amino Transferase 26 U/L (14-36); Bilirubin,Total 0.4 mg/dl (0.2-1.3); Blood Urea Nitrogen 16 mg/dl (7-17); Calcium 9.3 mg/dl (8.4-10.2); Carbon Dioxide 27 mmol/L (22.0-30.0); Chloride 103 mmol/L (98-107); Creatinine Clearance Estimated 65 mL/min (50-200); Estimated Glomerular Filt Rate 72 ml/min (>60); GFR (African American) 87 ML/MIN (>60); Globulin 3.3 g/dL (1.3-3.2); Glucose 125 mg/dl (74-100); Potassium 3.6 mmoL/L (3.5-5.1); Sodium 137 mmol/L (136-145); Total Protein,Serum 7.3 g/dl (6.3-8.2)
--- NOTE | 2022-04-18 11:11 | PC.NURSE ---
pt in room, getting updated set of vitals
[2022-04-18 11:12] VITALS: BP 129/67; PULSE 69; RESP 15; O2SAT 98
[2022-04-18 11:15] LABS: Coronavirus 19, PCR Not Detected (NotDetected); Influenza A, PCR Not Detected (NotDetected); Influenza B, PCR Not Detected (NotDetected)
[2022-04-18 11:41] VITALS: BP 129/76; PULSE 69; RESP 16; TEMP 36.9; O2SAT 98
== END 2022-04-18 11:43 | disposition home or self-care (01) ==
PROVIDERS: Emergency Provider Emergency Medicine; PCP Emergency Medicine
DX: K52.9 Noninfective gastroenteritis and colitis, unspecified (principal); Z79.899 Other long term (current) drug therapy; Z88.5 Allergy status to narcotic agent; Z88.1 Allergy status to other antibiotic agents; Z88.8 Allergy status to other drugs, medicaments and biological substances; Z91.041 Radiographic dye allergy status; Z87.19 Personal history of other diseases of the digestive system; I10 Essential (primary) hypertension
CPT/HCPCS: 80053; 81001; 85025; 87086; 96365; 96375; 99284; C9803; J1642; J2405; U0003; U0005

== ENCOUNTER 2022-05-09 09:46 | Outpatient (CLI) | payer OTHER, SELFPAY ==
--- NOTE | 2022-05-09 09:59 | FL_ITS ---
FINAL REPORT CLINICAL HISTORY: FT 3:42 FINDINGS: UPPER GI EXAM HISTORY: . Epigastric pain. PROCEDURE: The patient ingested barium. Effervescent crystals were also administered. Spot and overhead films were obtained. FINDINGS: There is a small to moderate sized hiatal hernia with gastroesophageal reflux. 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 Esophageal dysmotility was demonstrated during the exam. The stomach empties appropriately and the duodenal bulb was unremarkable. FLUOROSCOPY TIME: 3 minutes 42 seconds. 18 radiographs were obtained. IMPRESSION: Small to moderate hiatal hernia with gastroesophageal reflux. Feline esophagus was demonstrated during the reflux which can be a normal variant or related to esophagitis. Esophageal dysmotility. Films reviewed , interpreted and dictated by Dr. Gerardo. Transcribed by Bowen Trujillo PA-C. Reviewed, Interpreted and Dictated by Santo Gerardo MD Transcribed by AUGUSTINE Webb Authenticated and [facility]
[2022-05-09 10:35] LABS: Microscopic, Urine URINE MICROSCOPIC (MICROSCOPIC)
[2022-05-09 11:10] LABS: Appearance,Urine CLEAR (Clear); Bilirubin,Urine Negative (Negative); Blood, Urine Negative (Negative); Color,Urine YELLOW (Yellow); Glucose,Urine (UA) Negative (Negative); Ketones,Urine Negative (Negative); Leukocyte Esterase,Urine Negative (Negative); Nitrate,Urine Negative (Negative); Protein,Urine Negative (Negative); Urobilinogen,Urine 0.2 EU/dl (0.2)
--- NOTE | 2022-05-09 11:29 | PC.NURSE ---
PT WAS SENT FROM LAB FOR LABS TO BE DRAWN FOR PAC
[2022-05-09 11:30] VITALS: BP 122/74; PULSE 68; RESP 20; TEMP 36.9; O2SAT 95
[2022-05-09 11:40] LABS: Bacteria,Urine Trace /lpf
[2022-05-09 11:49] LABS: Basophils # 0.1 K/mm3 (0-0.2); Basophils % 0.8 % (0.1-2.0); Eosinophils # 0.4 K/mm3 (0.0-0.4); Eosinophils % 6.3 % (0.1-12.0); Hemoglobin 10.1 g/dL (12.2-16.2); Lymphocytes % 35.5 % (10-50); Mean Corpuscular HGB Conc 32.7 g/dL (31.8-35.4); Mean Corpuscular Hemoglobin 28.5 pg (27.0-31.2); Mean Corpuscular Volume 87.1 fl (81-99); Mean Platelet Volume 9.4 fl (7.4-10.4); Monocytes # 0.4 K/mm3 (0.1-1.0); Monocytes % 6.4 % (1.7-9.3); Neutrophils # 2.9 K/mm3 (1.8-7.8); Platelet Count 348 K/mm3 (142-424); Red Blood Count 3.56 M/mm3 (4.20-5.40); Red Cell Distribution Width 14.3 % (11.5-17.5); White Blood Count 5.7 K/mm3 (4.8-10.8)
[2022-05-09 12:27] LABS: Alanine Aminotransferase 13 U/L (12-78); Albumin Level 3.6 g/dl (3.5-5.0); Albumin/Globulin Ratio 1.3 (1.1-1.8); Alkaline Phosphatase 59 U/L (38-126); Anion Gap 13.2 mEq/L (5-15); Aspartate Amino Transferase 38 U/L (14-36); Blood Urea Nitrogen 18 mg/dl (7-17); Calcium 8.8 mg/dl (8.4-10.2); Carbon Dioxide 29 mmol/L (22.0-30.0); Chloride 100 mmol/L (98-107); Estimated Glomerular Filt Rate 55 ml/min (>60); GFR (African American) 67 ML/MIN (>60); Globulin 2.8 g/dL (1.3-3.2); Glucose 97 mg/dl (74-100); Potassium 4.2 mmoL/L (3.5-5.1); Sodium 138 mmol/L (136-145); Total Protein,Serum 6.4 g/dl (6.3-8.2)
[2022-05-09 12:28] LABS: Bilirubin,Total < 0.1 mg/dl (0.2-1.3)
== END 2022-05-09 11:35 | disposition home or self-care (01) ==
LOC: RAD 09:47
PROVIDERS: PCP Emergency Medicine; Referring Provider Orthopaedic Surgery; Visit Provider Surgery
DX: Z01.818 Encounter for other preprocedural examination (principal); R10.13 Epigastric pain
CPT/HCPCS: 36415; 36591; 74246; 80053; 81001; 85025; J1642

== ENCOUNTER → 2022-05-13 10:24 | Outpatient (CLI) | payer OTHER, SELFPAY | PROVIDERS: PCP Emergency Medicine; Visit Provider Orthopaedic Surgery | DX: Z01.812 Encounter for preprocedural laboratory examination (principal); Z20.822 Contact with and (suspected) exposure to COVID-19; S83.231A Complex tear of medial meniscus, current injury, right knee, initial encounter | CPT/HCPCS: C9803; U0003; U0005 ==

== ENCOUNTER 2022-05-16 08:26 | Day surgery (SDC) | payer MEDICARE, OTHER, SELFPAY ==
[2022-05-13 12:49] VITALS: BMI 27.9
[2022-05-16] VITALS (11 sets, daily range): BP systolic 126–157; BP diastolic 64–98; PULSE 48–62; RESP 14–20; TEMP 36.1–36.7; O2SAT 96–100
[2022-05-16] MEDS: RINGERS SOLUTION,LACTATED 1,000 ML 25 ML IV (09:04)
--- NOTE | 2022-05-16 09:35 | P.PN_ITS ---
[facility] Medical History Bilateral lower extremity edema Chest pain Dyspnea HTN (hypertension) Hx of Crohn's disease Knee effusion, right Positive D dimer Sinus bradycardia Surgical History (Updated 05/16/22 @ 08:52 by Amarilys Moody, RN) History of intestinal surgery Family History (Updated 05/16/22 @ 08:52 by Amarilys Moody RN) Other No significant family history Social History Smoking Status: Never smoker second hand exposure: No alcohol intake: never substance use type: denies use current occupational status: disabled and other Travel in the last 8 weeks: None household members: none housing: apartment number of children: 2 current occupational exposures/hazards: No caffeine: Yes [facility] Anesthesia Checklist Patient Identification Patient Identification: Arm Band Structural Data Admitted From: Home Planned Operative Procedure/s: Right Knee Arthroscopy Consent for Planned Operative Procedure(s) Verified: Yes Verified Documents: Surgical Consent and History and Physical NPO Status Verified Time NPO: 00:00 Additional verifications Anesthesia Reactions: No Hx Blood Transfusions: Yes Blood Transfusion Reaction: No Airway Assessment C-Spine Mobility Assessed: Yes TMJ Mobility Assessed: Yes Dentition: Edentulous Neurological Assessment Level of Consciousness: Awake and Alert Anesthesia Plan Anesthesia Risk discussed: Yes Anesthesia Plan: Verified ASA Class: III Anesthesia Type: General
[2022-05-16] MEDS: CLINDAMYCIN PHOSPHATE/D5W 900 MG/50 ML PIGGYBACK 106 MG IV (11:38)
[2022-05-16] MEDS: BUPIVACAINE 0.25% 30ML VIAL 75 MG (12:16)
--- NOTE | 2022-05-16 12:32 | EXP.OP.NOTE ---
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 Right knee was marked with a yes and my initials. Transferred to operative suite and placed upon operating bed. General anesthesia administered. Airway secured. Right lower extremity prepped and draped in normal sterile fashion. Once prepped and draped final operative timeout performed to identify proper patient procedure and extremity. Everyone involved in the case agreed. There were no counter indications to beginning. She did receive preoperative antibiotics. Marking pen was used to tammy the bony landmarks of the knee and standard portal sites. Esmarch was used to exsanguinate the extremity pneumatic tourniquet inflated to 300 mmHg. Skin knife was used to incise standard anterior lateral portal. Blunt trocar was placed in the patellofemoral joint exchange with a camera. Within the patellofemoral joint I swept directly into the medial joint line where the anterior medial portal was made under direct visualization. This was exchanged with a probe. Within the medial joint line there was evidence of grade III and IV chondromalacia the medial femoral condyle there is also evidence of tearing of the posterior horn of the medial meniscus. Using a combination of straight biter and sucker shaver partial medial meniscectomy was performed back to stable rim. Very slight debridement of chondromalacia of the medial femoral condyle removing the loose frayed cartilage was performed. Changes brought to the intercondylar notch where the ACL was seen and intact. Attention brought to the lateral joint line there was some synovitis anteriorly in the anterior compartment which was debrided lateral meniscus without tear. Lateral cartilage revealed grade II chondromalacia. So into the medial and lateral gutters no loose bodies or other pathology was seen. Synovectomy completed anterior compartment. Swept back into the patellofemoral joint there is grade III and IV chondromalacia of the trochlea and patella patella did track midline there is osteophytes inferior surface of the patella. No further pathology seen. Camera removed. Fluid drained from the joint. Local anesthesia infiltrated the portal sites quarter percent Marcaine. Skin was closed with 3-0 nylon stitch. Sterile dressing placed. Tourniquet deflated. Patient wake up anesthesia taken recovery in stable condition. Postoperatively patient will remain weightbearing as tolerated will evaluate in clinic for stitch removal and need for postoperative physical therapy. Tourniquet time (min): 22 Condition: stable Disposition: PACU Complications:: None apparent
--- NOTE | 2022-05-16 12:40 | P.PNANES_ITS ---
[facility] Anesthesia Record Part I Anesthesia Record I Intake, IV Amount: 100 Estimated blood loss (mL): 5 Urine output (mL): 0 Blood Products used (#): none Blood Pressure: 150/96 SaO2: 100 Pulse Rate: 62 Respiratory Rate: 14 Temperature: 97 F Patient is:: Drowsy and Stable Stable to PACU at:: 12:30
[2022-05-16] MEDS: HYDROMORPHONE 2MG/ML SYRINGE 0.5 MG IV (13:07)
--- NOTE | 2022-05-16 13:16 | SUR.PHASEI ---
1305-detailed report called to DURAN Sun 1312-pt reports pain is easing after being medicated per eMAR and rates 11/21, vss, pt stable, additional detailed report given to DURAN Oneal at bedside 1314-pt transported to post op via stretcher w/shakira rails up per DURAN Oneal, vss, pt stable
--- NOTE | 2022-05-17 07:59 | P.PNANES_ITS ---
[facility] Anesthesia Record Part II Anesthesia Record Part II Discharge Time: 13:10 Destination: Surgical Day Care (OP Surgery) PACU nurse assessment reviewed?: Yes Patient Condition:: Good Anesthesia Complications:: None Swallowing reflex intact?: Yes Cyanosis?: No Blood Pressure: 154/81 Pulse Rate: 52 Temperature: 97.4 F Mental Status: Alert & Oriented Pain level:: 6 Nausea and/or vomitting:: None Intake, IV Amount: 0
[2022-05-17 08:01] VITALS: BP 154/81; PULSE 52; TEMP 36.3
== END 2022-05-16 14:05 | disposition home or self-care (01) ==
PROVIDERS: PCP Emergency Medicine; Visit Provider Orthopaedic Surgery
PROC: (CPT 29870; principal; 2022-05-16 10:45)
DX: S83.241A Other tear of medial meniscus, current injury, right knee, initial encounter (principal); M22.41 Chondromalacia patellae, right knee; M65.861 Other synovitis and tenosynovitis, right lower leg; M94.261 Chondromalacia, right knee; M25.761 Osteophyte, right knee; I10 Essential (primary) hypertension; Z79.899 Other long term (current) drug therapy; Z88.5 Allergy status to narcotic agent; Z91.041 Radiographic dye allergy status; Z88.8 Allergy status to other drugs, medicaments and biological substances; Z88.1 Allergy status to other antibiotic agents; Z91.011 Allergy to milk products; Z79.82 Long term (current) use of aspirin; Z79.83 Long term (current) use of bisphosphonates; Z79.891 Long term (current) use of opiate analgesic; X58.XXXA Exposure to other specified factors, initial encounter
CPT/HCPCS: 29880; G0289; 96374; J2405

== ENCOUNTER → 2022-06-07 10:02 | Outpatient (CLI) | payer OTHER, SELFPAY ==
[2022-06-07 19:24] LABS: Amphetamine/Metha Screen,Urine Negative ng/ml (<1000); Benzodiazepines Screen,Urine Positive ng/ml (<200)
[2022-06-07 19:25] LABS: Barbiturates Screen,Urine Negative ng/ml (<200)
[2022-06-07 19:26] LABS: Cannabinoid Screen,Urine Negative ng/ml (<50); Cocaine Screen,Urine Negative ng/ml (<300)
[2022-06-07 19:27] LABS: Methadone Screen,Urine Negative ng/ml (<300)
[2022-06-07 19:28] LABS: Opiate Screen,Urine Negative ng/ml (<300); Phencyclidine Screen,Urine Negative ng/ml (<25)
== END ==
PROVIDERS: PCP Emergency Medicine; Visit Provider Emergency Medicine
DX: Z79.899 Other long term (current) drug therapy (principal)
CPT/HCPCS: 80305

== ENCOUNTER → 2022-09-05 12:14 | Outpatient (CLI) | payer OTHER, SELFPAY ==
--- NOTE | 2022-09-05 12:20 | XR_ITS ---
FINAL REPORT CLINICAL HISTORY: illness, cough COMPARISON: 02/2022 FINDINGS: PA and lateral views of the chest were obtained. No change in left-sided port. The cardiac and mediastinal silhouettes are within normal limits. Emphysematous changes are present. The lungs are otherwise clear. There is no pleural effusion or pneumothorax. No acute osseous abnormality is identified. IMPRESSION: No radiographic evidence of acute cardiac or pulmonary disease. Reviewed, Interpreted and Dictated by Angeline Lee MD Transcribed by Saad Colbert Authenticated and [facility]
[2022-09-05 14:30] LABS: Coronavirus 19, PCR Not Detected (NotDetected); Influenza A, PCR Not Detected (NotDetected); Influenza B, PCR Not Detected (NotDetected)
== END ==
PROVIDERS: PCP Emergency Medicine; Visit Provider Emergency Medicine
DX: R69 Illness, unspecified (principal); R09.89 Other specified symptoms and signs involving the circulatory and respiratory systems
CPT/HCPCS: 71046; C9803; U0003; U0005

== ENCOUNTER → 2022-09-26 11:10 | Outpatient (CLI) | payer OTHER, SELFPAY ==
[2022-09-26 15:44] LABS: Amphetamine/Metha Screen,Urine Negative ng/ml (<1000); Barbiturates Screen,Urine Negative ng/ml (<200); Benzodiazepines Screen,Urine Positive ng/ml (<200); Cannabinoid Screen,Urine Negative ng/ml (<50); Cocaine Screen,Urine Negative ng/ml (<300); Methadone Screen,Urine Negative ng/ml (<300); Opiate Screen,Urine Positive ng/ml (<300); Phencyclidine Screen,Urine Negative ng/ml (<25)
== END ==
PROVIDERS: PCP Emergency Medicine; Visit Provider Emergency Medicine
DX: Z79.899 Other long term (current) drug therapy (principal)
CPT/HCPCS: 80305

== ENCOUNTER 2022-11-01 08:50 | Emergency (ER) | payer MEDICARE, OTHER, SELFPAY ==
[2022-11-01 08:53] VITALS: BP 128/79; PULSE 68; RESP 17; TEMP 37.1; O2SAT 98; BMI 27.8
--- NOTE | 2022-11-01 09:04 | XR_ITS ---
FINAL REPORT CLINICAL HISTORY: COUGH COMPARISON: 09/05/2022 FINDINGS: SINGLE-VIEW CHEST The heart size is normal. The mediastinum is normal. Left chest port tip terminates in the SVC. There are chronic changes at the bases. There is no pneumothorax. IMPRESSION: No acute cardiopulmonary process. Reviewed, Interpreted and Dictated by Bill Thomas MD Transcribed by Ivanna Martin Authenticated and [facility]
--- NOTE | 2022-11-01 09:12 | ED_ITS ---
Discharge Plan Disposition Patient Disposition: Home, Self-Care Prescriptions Prescriptions: New doxycycline hyclate 100 mg capsule 100 mg PO BID 7 Days Qty: 14 0RF No Action albuterol sulfate 90 mcg/actuation HFA aerosol inhaler 2 puff INHALATION Q4-6H PRN (Reason: bronchospasm) Qty: 8.5 5RF alendronate 70 mg tablet 70 mg PO WEEKLY Rx Instructions: TAKE ONE TABLET BY MOUTH ONCE a WEEK metoprolol succinate 25 mg tablet extended release 24 hr See Rx Instructions .ROUTE .COMPLEX Qty: 30 5RF Dose Instruction: TAKE ONE TABLET BY MOUTH EVERY DAY Rx Instructions: TAKE ONE TABLET BY MOUTH EVERY DAY tramadol 50 mg tablet 50 mg PO BID Qty: 60 0RF promethazine-DM 6.25-15 mg/5 mL syrup 5 ml PO Q4-6H PRN (Reason: cough) Qty: 473 2RF clonazepam [Klonopin] 0.5 mg tablet 0.5 mg PO TID Qty: 90 1RF gabapentin 300 mg capsule 300 mg PO TID Qty: 90 1RF aspirin 81 mg tablet,delayed release (DR/EC) 81 mg PO DAILY Qty: 100 3RF Rx Instructions: TAKE ONE TABLET BY MOUTH EVERY DAY FOR heart health fluoxetine 20 mg capsule See Rx Instructions .ROUTE .COMPLEX Qty: 30 1RF Dose Instruction: TAKE ONE CAPSULE BY MOUTH EVERY DAY Rx Instructions: TAKE ONE CAPSULE BY MOUTH EVERY DAY hydrocodone-acetaminophen 10-325 mg tablet 1 tab PO QID Qty: 120 0RF pantoprazole 40 mg tablet,delayed release (DR/EC) See Rx Instructions .ROUTE .COMPLEX Qty: 90 2RF Dose Instruction: TAKE ONE TABLET BY MOUTH EVERY DAY Rx Instructions: TAKE ONE TABLET BY MOUTH EVERY DAY spironolactone 25 mg tablet 25 mg PO DAILY ondansetron 4 mg tablet,disintegrating 4 mg PO DAILY Rx Instructions: DISSOLVE ONE TABLET in MOUTH THREE TIMES DAILY NEEDED FOR NAUSEA AND VOMITING loratadine 10 mg tablet 10 mg PO DAILY Rx Instructions: TAKE ONE TABLET BY MOUTH EVERY DAY Referrals Follow up/Referrals: Provider,Referral, MD [Referring] - See instructions Activity Restrictions/Add. Instructions Additional Instructions/Restrictions: Your evaluation today yielded an atypical pneumonitis most likely bacterial in origin which should be covered by doxycycline. Please follow-up with your primary care doctor next week and return to emergency department worsening shortness of breath. Clinical Impressions Clinical Impression: Atypical pneumonia Discharge ED Provider: Madison Barroso General Adult HPI General Chief complaint: Shortness of Breath/Dyspnea Stated complaint: CP Time Seen by Provider: 11/01/22 09:12 Mode of Arrival: Ambulatory Limitations: No Limitations Description of Symptoms (Recalled from ER Triage Doc. by RN): PT WITH C/O COUGH X 2-3 WEEKS, INCREASED SHORTNESS OF BREATH THIS AM AND WEAKNESS. History of Present Illness HPI narrative: 67-year-old female presenting with cough and shortness of breath for 2 weeks. States 2 weeks ago she had a fever but has not had a fever since that time. Patient denies any significant chest pain currently. Denies a history of COPD or any underlying lung or heart pathology is not on home oxygen. Denies any sick contacts at home. Related Data Home Medications Medication Instructions Recorded Confirmed loratadine 10 mg tablet 10 mg PO DAILY Allergy symptoms 05/13/22 09/26/22 ondansetron 4 mg disintegrating 4 mg PO DAILY Nausea & vomiting 05/13/22 09/26/22 tablet spironolactone 25 mg tablet 25 mg PO DAILY Fluid 05/13/22 09/26/22 alendronate 70 mg tablet 70 mg PO WEEKLY OSTEOPROSIS 07/18/22 09/26/22 Previous Rx's Medication Instructions Recorded albuterol sulfate 90 mcg/actuation 2 puff inhalation Q4-6H PRN 10/04/21 aerosol inhaler bronchospasm #8.5 grams metoprolol succinate 25 mg See Rx Instructions .Route 07/19/22 tablet,extended release 24 hr .COMPLEX #30 tabs tramadol 50 mg tablet 50 mg PO BID pain #60 tabs 08/17/22 promethazine-DM 6.25 mg-15 mg/5 mL 5 ml PO Q4-6H PRN cough #473 mL 09/06/22 oral syrup clonazepam 0.5 mg tablet (Klonopin) 0.5 mg PO TID Anxiety #90 tabs 09/26/22 gabapentin 300 mg capsule 300 mg PO TID Pain #90 caps 09/26/22 aspirin 81 mg tablet,delayed 81 mg PO DAILY heart health #100 09/27/22 release tabs fluoxetine 20 mg capsule See Rx Instructions .Route 09/28/22 .COMPLEX #30 caps hydrocodone 10 mg-acetaminophen 1 tab PO QID #120 tabs 09/30/22 325 mg tablet pantoprazole 40 mg tablet,delayed See Rx Instructions .Route 10/27/22 release .COMPLEX #90 tabs doxycycline hyclate 100 mg capsule 100 mg PO BID 7 days #14 caps 11/01/22 Allergies Allergy/AdvReac Type Severity Reaction Status Date / Time cephalexin [From Keflex] Allergy Severe Difficulty Verified 09/05/22 11:33 Breathing prochlorperazine Allergy Severe Swelling Verified 09/05/22 11:33 [PROCHLORPERAZINE] of Lip/Tongue/Throat codeine [CODEINE] Allergy Unknown VOMITING / Verified 09/05/22 11:33 NAUSEA morphine [MORPHINE] Allergy Unknown Nausea Verified 09/05/22 11:33 prednisone [PREDNISONE] Allergy Unknown BP ISSUES Verified 09/05/22 11:33 promethazine [From PHENERGAN] Allergy Unknown Verified 09/05/22 11:33 metoclopramide [From Reglan] Allergy Nausea Verified 09/05/22 11:33 lactose AdvReac Intermediate Abdominal Verified 09/05/22 11:33 Pain PFSH PFSH Disclaimer: The information contained in this section may have been updated after the patient was seen, as this information can be updated by other users. Medical History Allergies Anxiety Bilateral lower extremity edema Chest pain Cholecystectomy planned Depression Dyspnea Edema History of anemia HTN (hypertension) Hx of Crohn's disease Knee effusion, right Osteoporosis Pneumonia Positive D dimer Sinus bradycardia Urinary tract infection Surgical History H/O oral surgery H/O total hysterectomy History of appendectomy History of arthroscopy of right knee History of esophagogastroduodenoscopy (EGD) History of intestinal surgery Family History Other Cancer Heart attack Social History (Updated 11/01/22 @ 09:39 by Kimberly Hidalgo RN) Smoking Status: Never smoker second hand exposure: No alcohol intake: never substance use type: denies use current occupational status: disabled Travel in the last 8 weeks: None household members: none housing: apartment number of children: 2 current occupational exposures/hazards: No caffeine: Yes ROS Obtained: Yes All systems reviewed & no additional complaints except as documented Physical Exam General General appearance: alert and in no apparent distress Respiratory Respiratory exam: Present normal lung sounds bilaterally and other (95% on room air on my exam); Absent respiratory distress, wheezes, stridor, accessory muscle use or prolonged expiratory phase Cardiovascular Cardiovascular exam: Present regular rate; Absent tachycardia Neurological Exam Neurological exam: Present alert and oriented X3 Medical Decision Making Grant Inquiry Pt receiving controlled substance: No Vital Signs: 11/01/22 08:53 11/01/22 09:30 11/01/22 10:01 Temperature 98.8 F Temperature Source Oral Pulse Rate 66 65 Pulse Rate [Apical] 68 Respiratory Rate 17 16 Blood Pressure 130/78 114/74 Blood Pressure [Right Arm] 128/79 Blood Pressure Mean 95 85 Blood Pressure Mean [Right Arm] 95 Blood Pressure Source [Right Arm] Automatic Cuff Blood Pressure Position [Right Arm] Sitting 02 Sat by Pulse Oximetry 98 93 L 93 L Oxygen Delivery Method Room Air Room Air Lab Data Lab results reviewed: Yes I reviewed the patient's lab results. Lab Results 11/01/22 09:15: WBC 8.6, RBC 3.44 L, Hgb 9.9 L, Hct 30.7 L, MCV 89.2, MCH 28.7, MCHC 32.2, RDW 14.3, Plt Count 280, MPV 9.4, Neut % (Auto) 62.3, Lymph % (Auto) 24.3, [place] % (Auto) 7.3, Eos % (Auto) 5.1, Baso % (Auto) 0.9, Neut # (Auto) 5.3, Lymph # (Auto) 2.1, Caswell # (Auto) 0.6, Eos # (Auto) 0.4, Baso # (Auto) 0.1 11/01/22 09:15: Sodium 139, Potassium 4.1, Chloride 105, Carbon Dioxide 30, Anion Gap 8.1, BUN 17, Creatinine 1.00, Estimated Creat Clear 63, Estimated GFR 55 L, Est GFR ( Amer) 67, Glucose 100, Calcium 8.4, Total Bilirubin 0.2, AST 33, ALT 23, Alkaline Phosphatase 61, Troponin I < 0.01, Total Protein 6.5, Albumin 3.7, Globulin 2.8, Albumin/Globulin Ratio 1.3 11/01/22 09:15: D-Dimer 1.12 H 11/01/22 09:15: NT-Pro-B Natriuret Pep 157 H 11/01/22 09:25: SARS-CoV-2 (PCR) Not detected, Influenza A Untype (PCR) Not detected, Influenza Type B (PCR) Not detected Result diagrams: 11/01/22 09:15 11/01/22 09:15 Orders (Tests/Meds): ED MEDICATIONS Generic Name Dose Route Start Last Admin Trade Name Freq PRN Reason Stop Dose Admin Sodium Chloride 10 ml 11/01/22 09:04 Sodium Chloride 0.9% 10ml Flush Syringe IV 12/01/22 09:03 NEEDED PRN Maintain IV Site Discontinued Medications Generic Name Dose Route Start Last Admin Trade Name Freq PRN Reason Stop Dose Admin Iopamidol 70 ml 11/01/22 10:44 11/01/22 10:45 Iopamidol-370 (76%);100ml Bottle IV 11/01/22 10:45 70 ml ONCE ONE Administration Sodium Chloride 40 ml 11/01/22 10:44 11/01/22 10:45 0.9 % Sodium Chloride 50 Ml Vial IV 11/01/22 10:45 40 ml ONCE ONE Administration ORDERS Category Date Time Status CT angio chest PE protocol Stat Cat Scan 11/01/22 10:20 Taken CXR --portable [XR chest portable] Stat Exams 11/01/22 09:04 Taken BNP [Brain Natriuretic Peptide] Stat Lab 11/01/22 09:15 Completed Complete Blood Count Auto Diff Stat Lab 11/01/22 09:15 Completed Comprehensive Metabolic Panel Stat Lab 11/01/22 09:15 Completed D-Dimer Stat Lab 11/01/22 09:15 Completed Rapid PCR Covid and Flu A/B Stat Lab 11/01/22 09:25 Completed Trop I [Troponin I] Stat Lab 11/01/22 09:15 Completed Troponin I Q3H Lab 11/01/22 12:30 Ordered Troponin I Q3H Lab 11/01/22 15:30 Ordered Medical Decision Narrative: Patient is a well-appearing 67-year-old female in no respiratory distress with a normal exam presented today with subjective dyspnea and cough. Most likely a viral respiratory pathogen is causing this. Other things in differential include heart failure, PTE, myocarditis pericarditis, COPD, etc. We will obtain a chest x-ray do some labs and reassess. Regarding pulmonary embolism she is low risk in terms of years and her D-dimer cutoff will be 1.0. I suspect this is most likely infectious in nature and D-dimer is an acute phase reactant so might be mildly elevated will not get a CT PE unless it is 1.0. We will reassess. Reassessment at 12 PM patient remained stable oxygen saturations are normal no respiratory distress work-up showed elevated D-dimer CT PE was performed which showed groundglass opacities no other acute abnormalities this is consistent with an atypical infection. We will cover the patient with doxycycline she will follow-up with her primary care doctor return to the emergency department with worsening symptoms. Critical Care Time Critical Care Time Critical Care Time: No Attestation: On 11/01/22, the high probability of a clinically significant, sudden or life threatening deterioration of the following system(s) required my full and direct attention, intervention and personal management. The time I documented below is in addition to time spent performing reported procedures but includes the following listed in this critical care notation.
--- NOTE | 2022-11-01 09:23 | PC.NURSE ---
0923 XR AT BEDSIDE
[2022-11-01 09:30] VITALS: BP 130/78; PULSE 66; RESP 16; O2SAT 93
[2022-11-01 09:33] LABS: Coronavirus 19, PCR Not Detected (NotDetected); Influenza A, PCR Not Detected (NotDetected); Influenza B, PCR Not Detected (NotDetected)
[2022-11-01 09:41] LABS: Alanine Aminotransferase 23 U/L (12-78); Albumin Level 3.7 g/dl (3.5-5.0); Albumin/Globulin Ratio 1.3 (1.1-1.8); Alkaline Phosphatase 61 U/L (38-126); Anion Gap 8.1 mEq/L (5-15); Aspartate Amino Transferase 33 U/L (14-36); Bilirubin,Total 0.2 mg/dl (0.2-1.3); Blood Urea Nitrogen 17 mg/dl (7-17); Calcium 8.4 mg/dl (8.4-10.2); Carbon Dioxide 30 mmol/L (22.0-30.0); Chloride 105 mmol/L (98-107); Creatinine Clearance Estimated 63 mL/min (50-200); Estimated Glomerular Filt Rate 55 ml/min (>60); GFR (African American) 67 ML/MIN (>60); Globulin 2.8 g/dL (1.3-3.2); Glucose 100 mg/dl (74-100); Potassium 4.1 mmoL/L (3.5-5.1); Sodium 139 mmol/L (136-145); Total Protein,Serum 6.5 g/dl (6.3-8.2)
[2022-11-01 09:45] LABS: Basophils # 0.1 K/mm3 (0-0.2); Basophils % 0.9 % (0.1-2.0); Eosinophils # 0.4 K/mm3 (0.0-0.4); Eosinophils % 5.1 % (0.1-12.0); Hematocrit 30.7 % (37.0-47.0); Hemoglobin 9.9 g/dL (12.2-16.2); Lymphocytes # 2.1 K/mm3 (0.7-4.5); Lymphocytes % 24.3 % (10-50); Mean Corpuscular HGB Conc 32.2 g/dL (31.8-35.4); Mean Corpuscular Hemoglobin 28.7 pg (27.0-31.2); Mean Corpuscular Volume 89.2 fl (81-99); Mean Platelet Volume 9.4 fl (7.4-10.4); Monocytes # 0.6 K/mm3 (0.1-1.0); Monocytes % 7.3 % (1.7-9.3); Neutrophils # 5.3 K/mm3 (1.8-7.8); Neutrophils % 62.3 % (37.0-80.0); Platelet Count 280 K/mm3 (142-424); Red Blood Count 3.44 M/mm3 (4.20-5.40); Red Cell Distribution Width 14.3 % (11.5-17.5); White Blood Count 8.6 K/mm3 (4.8-10.8)
[2022-11-01 09:46] LABS: D-Dimer 1.12 ug/mL (0.0-0.5)
[2022-11-01 09:50] LABS: NT Pro Brain Natriuretic Pep. 157 pg/mL (0-125)
[2022-11-01 10:01] VITALS: BP 114/74; PULSE 65; O2SAT 93
[2022-11-01 10:03] LABS: Troponin I < 0.01 ng/ml (0.00-0.034)
--- NOTE | 2022-11-01 10:10 | PC.NURSE ---
FAMILY AT BEDSIDE, NO NEEDS VOICED. CALL LIGHT WITHIN REACH
--- NOTE | 2022-11-01 10:20 | CT_ITS ---
FINAL REPORT TECHNIQUE: Postcontrast axial images of the chest were performed in a CTA protocol. The study was performed with techniques to keep radiation dose as low as reasonably achievable, (ALARA). Individual dose reduction techniques using automated exposure control or adjustment of mA and/or kV according to the patient's size were employed. CLINICAL HISTORY: dyspnea, elevated dimer FINDINGS: Left upper anterior chest port terminates in the SVC. The mediastinal vasculature is well opacified. The thoracic aorta is normal in caliber with no focal aneurysm or dissection identified. There is bibasilar scarring or atelectasis. There are subtle ground-glass opacities in the upper lobes which may be related to acute pneumonitis. The images of the upper abdomen are unremarkable. IMPRESSION: No pulmonary embolism or dissection. Ground-glass opacities in the upper lobes which may be related to acute pneumonitis. Reviewed, Interpreted and Dictated by Bill Thomas MD Transcribed by Ivanna Martin Authenticated and [facility]
[2022-11-01] MEDS: 0.9 % SODIUM CHLORIDE 50 ML VIAL 40 ML IV (10:45)
[2022-11-01] MEDS: IOPAMIDOL-370 (76%);100ML BOTTLE 70 ML IV (10:45)
--- NOTE | 2022-11-01 10:56 | PC.NURSE ---
ROUNDED ON PT, RESTING WITH EYES CLOSED. NO NEEDS VOICED. CALL LIGHT WITHIN REACH. FAMILY AT BEDSIDE
--- NOTE | 2022-11-01 12:00 | PC.NURSE ---
DR URBAN AT BEDSIDE TO UPDATE PT ON DISCHARGE POC
[2022-11-01 12:20] VITALS: BP 124/68; PULSE 72; RESP 18; TEMP 36.9; O2SAT 95
--- NOTE | 2022-11-02 08:50 | ECG_ITS ---
APPROVED REPORT Exam: Resting ECG HR:66 bpm ECG Measurements Heart Rate 66 AXES OH 213 P 54 QRSd 89 QRS 15 QT 406 T 41 QTc 420 Conclusion SINUS RHYTHM WITH FIRST DEGREE AV BLOCK ABNORMAL ECG UNCONFIRMED REPORT Electronically signed by : Colin Durant MD 11/04/2022 16:47:05
== END 2022-11-01 12:24 | disposition home or self-care (01) ==
PROVIDERS: Emergency Provider Student in an Organized Health Care Education/Training Program; PCP Emergency Medicine
DX: J18.8 Other pneumonia, unspecified organism (principal); R06.02 Shortness of breath; I44.0 Atrioventricular block, first degree
CPT/HCPCS: 71045; 71275; 80053; 83880; 84484; 85025; 85378; 93005; 99284; 99285; C9803; J1642; Q9967; U0003; U0005

== ENCOUNTER → 2023-01-30 14:30 | Outpatient (CLI) | payer OTHER, SELFPAY | PROVIDERS: PCP Emergency Medicine; Visit Provider Emergency Medicine | DX: Z79.899 Other long term (current) drug therapy (principal) ==

== ENCOUNTER → 2023-01-30 19:05 | Outpatient (CLI) | payer MEDICARE, OTHER, SELFPAY ==
[2023-01-30 19:39] LABS: Amphetamine/Metha Screen,Urine Negative ng/ml (<1000)
[2023-01-30 19:40] LABS: Barbiturates Screen,Urine Negative ng/ml (<200); Benzodiazepines Screen,Urine Positive ng/ml (<200)
[2023-01-30 19:41] LABS: Cannabinoid Screen,Urine Negative ng/ml (<50)
[2023-01-30 19:42] LABS: Cocaine Screen,Urine Negative ng/ml (<300); Methadone Screen,Urine Negative ng/ml (<300)
[2023-01-30 19:43] LABS: Opiate Screen,Urine Negative ng/ml (<300)
[2023-01-30 19:44] LABS: Phencyclidine Screen,Urine Negative ng/ml (<25)
== END ==
PROVIDERS: PCP Emergency Medicine; Visit Provider Emergency Medicine
DX: Z79.899 Other long term (current) drug therapy (principal)
CPT/HCPCS: 80305

== ENCOUNTER → 2023-04-11 21:02 | Outpatient (CLI) | payer MEDICARE, OTHER, SELFPAY ==
[2023-04-11 21:35] LABS: Coronavirus 19, PCR Not Detected (NotDetected); Influenza A, PCR Not Detected (NotDetected); Influenza B, PCR Not Detected (NotDetected)
== END ==
PROVIDERS: PCP Emergency Medicine; Visit Provider Emergency Medicine
DX: J06.9 Acute upper respiratory infection, unspecified (principal); R05.9 Cough, unspecified; Z20.822 Contact with and (suspected) exposure to COVID-19
CPT/HCPCS: 87636

== ENCOUNTER 2023-04-19 12:08 | Emergency (ER) | payer MEDICARE, OTHER, SELFPAY ==
[2023-04-19 12:45] VITALS: BP 151/86; PULSE 59; RESP 20; TEMP 36.9; O2SAT 97; BMI 29.5
[2023-04-19 13:06] VITALS: BP 151/86; PULSE 59; RESP 20; TEMP 36.9; O2SAT 97
--- NOTE | 2023-04-19 13:07 | EXP.UTC ---
Discharge Plan Disposition Patient Disposition: Home, Self-Care Condition: Good Prescriptions Prescriptions: New albuterol sulfate [Proventil HFA] 90 mcg/actuation HFA aerosol inhaler 1 - 2 inh inhalation Q6H PRN (Reason: shortness of breath or wheezing) Qty: 8.5 0RF doxycycline hyclate 100 mg tablet 100 mg PO BID Qty: 20 0RF guaifenesin [Mucinex] 600 mg tablet extended release 12hr 600 - 1,200 mg PO BID PRN (Reason: cough/congestion) Qty: 20 0RF No Action mirtazapine [Remeron] 15 mg tablet 15 mg PO QHS Qty: 30 1RF lisinopril 10 mg tablet 10 mg PO DAILY Qty: 30 2RF tramadol 50 mg tablet 50 mg PO BID Qty: 60 0RF gabapentin 300 mg capsule 300 mg PO TID Qty: 90 1RF diazepam [Valium] 5 mg tablet 5 mg PO BID Qty: 60 1RF hydrocodone-acetaminophen 10-325 mg tablet 1 tab PO QID Qty: 120 0RF alendronate 70 mg tablet 70 mg PO WEEKLY Rx Instructions: TAKE ONE TABLET BY MOUTH ONCE a WEEK metoprolol succinate 25 mg tablet extended release 24 hr See Rx Instructions .ROUTE .COMPLEX Qty: 30 5RF Dose Instruction: TAKE ONE TABLET BY MOUTH EVERY DAY Rx Instructions: TAKE ONE TABLET BY MOUTH EVERY DAY aspirin 81 mg tablet,delayed release (DR/EC) 81 mg PO DAILY Qty: 100 3RF Rx Instructions: TAKE ONE TABLET BY MOUTH EVERY DAY FOR heart health pantoprazole 40 mg tablet,delayed release (DR/EC) See Rx Instructions .ROUTE .COMPLEX Qty: 90 2RF Dose Instruction: TAKE ONE TABLET BY MOUTH EVERY DAY Rx Instructions: TAKE ONE TABLET BY MOUTH EVERY DAY loratadine 10 mg tablet See Rx Instructions .ROUTE .COMPLEX Qty: 90 5RF Dose Instruction: TAKE ONE TABLET BY MOUTH EVERY DAY Rx Instructions: TAKE ONE TABLET BY MOUTH EVERY DAY spironolactone 25 mg tablet See Rx Instructions .ROUTE .COMPLEX Qty: 180 3RF Dose Instruction: TAKE ONE TABLET BY MOUTH TWICE DAILY Rx Instructions: TAKE ONE TABLET BY MOUTH TWICE DAILY fluoxetine 20 mg capsule See Rx Instructions .ROUTE .COMPLEX Qty: 30 1RF Dose Instruction: TAKE ONE CAPSULE BY MOUTH EVERY DAY Rx Instructions: TAKE ONE CAPSULE BY MOUTH EVERY DAY azithromycin [Zithromax Z-Dionicio] 250 mg tablet See Rx Instructions PO .COMPLEX Qty: 6 0RF Rx Instructions: For 250 mg dose pack: take 500 mg today (day 1), then 250 mg for 4 days (days 2-5) PO benzonatate 100 mg capsule 200 mg PO TID PRN (Reason: cough) Qty: 30 0RF albuterol sulfate [ProAir HFA] 90 mcg/actuation HFA aerosol inhaler See Rx Instructions .ROUTE .COMPLEX Qty: 8.5 5RF Dose Instruction: INHALE TWO PUFFS BY MOUTH EVERY 4-6 HOURS NEEDED FOR bronchospasms Rx Instructions: INHALE TWO PUFFS BY MOUTH EVERY 4-6 HOURS NEEDED FOR bronchospasms ondansetron 4 mg tablet,disintegrating 4 mg PO DAILY Rx Instructions: DISSOLVE ONE TABLET in MOUTH THREE TIMES DAILY NEEDED FOR NAUSEA AND VOMITING Referrals Follow up/Referrals: Reuben Fong MD [Primary Care Provider] - See instructions Activity Restrictions/Add. Instructions Additional Instructions/Restrictions: Start antibiotic today. Be sure to complete entire prescription even if feeling better Monitor temp. Tylenol every 4 hours as needed and / or ibuprofen every 6 hours as needed ( As long as your primary care physician has told you that it ok to take both. For fever/aches/pains ER if no less than 101 despite Tylenol or Motrin Humidifier/vaporizer or hot steamy shower Inhaler every 4-6 hours as needed like we discussed. If unsure how to use it, ask pharmacist to demonstrate how. Should help open airways and improve cough, wheezing, and shortness of breath Mucinex during the day for your cough and cough suppressant only at night. Be sure to drink lots of water. *Tessalon Perles will not cause drowsiness but use at bedtime to help stop cough so t
== END 2023-04-19 13:32 | disposition home or self-care (01) ==
PROVIDERS: Emergency Provider Nurse Practitioner; PCP Emergency Medicine
DX: J20.9 Acute bronchitis, unspecified (principal); J01.90 Acute sinusitis, unspecified; I10 Essential (primary) hypertension; F41.9 Anxiety disorder, unspecified; F32.A Depression, unspecified; G47.00 Insomnia, unspecified
CPT/HCPCS: 99212; 99214; G0463

== ENCOUNTER 2023-05-15 13:57 | Emergency (ER) | payer MEDICARE, OTHER, SELFPAY ==
--- NOTE | 2023-05-15 14:14 | EXP.UTC ---
Discharge Plan Disposition Patient Disposition: Home, Self-Care Condition: Good Prescriptions Prescriptions: New mupirocin 2 % ointment 1 applic topical TID 7 Days Qty: 15 0RF amoxicillin-pot clavulanate 875-125 mg Tablet 1 tab PO Q12H Qty: 20 0RF No Action gabapentin 300 mg capsule 300 mg PO TID Qty: 90 1RF aspirin 81 mg tablet,delayed release (DR/EC) 81 mg PO DAILY Qty: 100 3RF Rx Instructions: TAKE ONE TABLET BY MOUTH EVERY DAY FOR heart health tramadol 50 mg tablet 50 mg PO BID Qty: 60 0RF fluoxetine 20 mg capsule 20 mg PO DAILY Patient Comments: TAKE ONE CAPSULE BY MOUTH EVERY DAY alendronate 70 mg tablet See Rx Instructions .ROUTE .COMPLEX Rx Instructions: TAKE ONE TABLET BY MOUTH ONCE a WEEK pantoprazole 40 mg tablet,delayed release (DR/EC) See Rx Instructions .ROUTE .COMPLEX Rx Instructions: TAKE ONE TABLET BY MOUTH EVERY DAY lisinopril 10 mg tablet 10 mg PO DAILY metoprolol succinate 25 mg tablet extended release 24 hr See Rx Instructions .ROUTE .COMPLEX Rx Instructions: TAKE ONE TABLET BY MOUTH EVERY DAY albuterol sulfate [ProAir HFA] 90 mcg/actuation HFA aerosol inhaler See Rx Instructions .ROUTE .COMPLEX Rx Instructions: INHALE TWO PUFFS BY MOUTH EVERY 4-6 HOURS NEEDED FOR bronchospasms diazepam [Valium] 5 mg tablet 5 mg PO BID hydrocodone-acetaminophen 10-325 mg tablet 1 tab PO QID spironolactone 25 mg tablet See Rx Instructions .ROUTE .COMPLEX Rx Instructions: TAKE ONE TABLET BY MOUTH TWICE DAILY mirtazapine [Remeron] 15 mg tablet 15 mg PO QHS loratadine 10 mg tablet See Rx Instructions .ROUTE .COMPLEX Rx Instructions: TAKE ONE TABLET BY MOUTH EVERY DAY Referrals Follow up/Referrals: Reuben Fong MD [Primary Care Provider] - See instructions Activity Restrictions/Add. Instructions Additional Instructions/Restrictions: Keep the wounds clean and dry. Follow up with your regular doctor. Take the antibiotics as directed and apply the topical antibiotics as directed. Make sure you stay in contact with the health department regarding the health of the dog. Watch the wound for signs of worsening infection, such as worsening redness, drainage, swelling, etc. GO TO THE ER FOR ANY WORSENING SYMPTOMS Clinical Impressions Clinical Impression: Dog bite of right hand, Need for tetanus, diphtheria, and acellular pertussis (Tdap) vaccine Instructions Patient Instructions: Tetanus, Diphtheria, and Pertussis Vaccine, Amoxicillin and Clavulanic Acid, Mupirocin, DI for Dog Bite [place]charge ED [place]o [place] [facility] [place] General Stated complaint: dog bite on Rt hand, pain Time Seen by Provider: 05/15/23 14:14 History of Present Illness Provider Complaint: She states that she was bit on her right hand by her own dog earlier today. Her tetanus immunization is not up to date. Related Data Home Medications Medication Instructions Recorded Confirmed albuterol sulfate 90 mcg/actuation See Rx Instructions .Route 05/15/23 05/15/23 aerosol inhaler (ProAir HFA) .COMPLEX . alendronate 70 mg tablet See Rx Instructions .Route 05/15/23 05/15/23 .COMPLEX osteo diazepam 5 mg tablet (Valium) 5 mg PO BID . 05/15/23 05/15/23 fluoxetine 20 mg capsule 20 mg PO DAILY . 05/15/23 05/15/23 hydrocodone 10 mg-acetaminophen 1 tab PO QID Pain 05/15/23 05/15/23 325 mg tablet lisinopril 10 mg tablet 10 mg PO DAILY . 05/15/23 05/15/23 loratadine 10 mg tablet See Rx Instructions .Route 05/15/23 05/15/23 .COMPLEX . metoprolol succinate 25 mg See Rx Instructions .Route 05/15/23 05/15/23 tablet,extended release 24 hr .COMPLEX . mirtazapine 15 mg tablet (Remeron) 15 mg PO QHS . 05/15/23 05/15/23 pantoprazole 40 mg tablet,delayed See Rx Instructions .Route 05/15/23 05/15/23 release .COMPLEX gerd spironolactone 25 mg tablet See Rx Instruc
[2023-05-15 14:15] VITALS: BP 143/80; PULSE 53; RESP 18; TEMP 36.6; O2SAT 97; BMI 29.2
--- NOTE | 2023-05-15 14:34 | XR_ITS ---
FINAL REPORT CLINICAL HISTORY: Right hand pain status post dog bite FINDINGS: RIGHT HAND Three views demonstrate no acute fracture or dislocation. The visualized joint spaces are normally aligned. The soft tissues are unremarkable. IMPRESSION: No acute bony abnormality. Reviewed, Interpreted and Dictated by Luis Alberto Redd III, MD Transcribed by Nidia Turner Authenticated and [facility]
[2023-05-15 15:31] VITALS: BP 143/80; PULSE 53; RESP 18; TEMP 36.6; O2SAT 97
== END 2023-05-15 15:31 | disposition home or self-care (01) ==
PROVIDERS: Emergency Provider Nurse Practitioner Family; PCP Emergency Medicine
DX: S61.451A Open bite of right hand, initial encounter (principal); I10 Essential (primary) hypertension; G47.00 Insomnia, unspecified; J30.9 Allergic rhinitis, unspecified; M81.8 Other osteoporosis without current pathological fracture; F41.9 Anxiety disorder, unspecified; F32.A Depression, unspecified; Z23 Encounter for immunization; W54.0XXA Bitten by dog, initial encounter
CPT/HCPCS: 73130; 90471; 90715; 96372; 99212; 99214; G0463

== ENCOUNTER → 2023-05-30 00:12 | Outpatient (CLI) | payer OTHER, SELFPAY ==
[2023-05-29 20:22] LABS: Amphetamine/Metha Screen,Urine Negative ng/ml (<1000)
[2023-05-29 20:23] LABS: Barbiturates Screen,Urine Negative ng/ml (<200)
[2023-05-29 20:24] LABS: Benzodiazepines Screen,Urine Positive ng/ml (<200); Cannabinoid Screen,Urine Negative ng/ml (<50)
[2023-05-29 20:29] LABS: Cocaine Screen,Urine Negative ng/ml (<300)
[2023-05-29 20:30] LABS: Methadone Screen,Urine Negative ng/ml (<300)
[2023-05-29 20:31] LABS: Opiate Screen,Urine Negative ng/ml (<300); Phencyclidine Screen,Urine Negative ng/ml (<25)
== END ==
PROVIDERS: PCP Emergency Medicine; Visit Provider Emergency Medicine
DX: Z79.899 Other long term (current) drug therapy (principal)
CPT/HCPCS: 80305

== ENCOUNTER 2023-06-18 09:04 | Emergency (ER) | payer MEDICARE, OTHER, SELFPAY ==
--- NOTE | 2023-06-18 09:09 | EXP.UTC ---
Discharge Plan Disposition Patient Disposition: Home, Self-Care Condition: Good Prescriptions Prescriptions: New azithromycin [Zithromax] 250 mg tablet 250 mg PO UD DOSE PK Qty: 6 0RF Rx Instructions: Take two (2) tablets today, then one (1) tablet days #2 thru #5 benzonatate [benzonatate] 100 mg capsule 100 mg PO TIDP PRN (Reason: Cough) Qty: 30 0RF methylprednisolone 4 mg Tablets,Dose Pack 4 mg PO DIRECTED Qty: 21 0RF No Action fluoxetine 40 mg capsule 40 mg PO DAILY Qty: 30 2RF tramadol 50 mg tablet 50 mg PO BID Qty: 60 0RF gabapentin 300 mg capsule 300 mg PO TID Qty: 90 1RF clonazepam [Klonopin] 0.5 mg tablet 0.5 mg PO TID Qty: 90 1RF aspirin 81 mg tablet,delayed release (DR/EC) 81 mg PO DAILY Qty: 100 3RF Rx Instructions: TAKE ONE TABLET BY MOUTH EVERY DAY FOR heart health hydrocodone-acetaminophen 7.5-325 mg tablet 1 tab PO QID Qty: 120 0RF alendronate 70 mg tablet See Rx Instructions .ROUTE .COMPLEX Rx Instructions: TAKE ONE TABLET BY MOUTH ONCE a WEEK pantoprazole 40 mg tablet,delayed release (DR/EC) See Rx Instructions .ROUTE .COMPLEX Rx Instructions: TAKE ONE TABLET BY MOUTH EVERY DAY lisinopril 10 mg tablet 10 mg PO DAILY metoprolol succinate 25 mg tablet extended release 24 hr See Rx Instructions .ROUTE .COMPLEX Rx Instructions: TAKE ONE TABLET BY MOUTH EVERY DAY albuterol sulfate [ProAir HFA] 90 mcg/actuation HFA aerosol inhaler See Rx Instructions .ROUTE .COMPLEX Rx Instructions: INHALE TWO PUFFS BY MOUTH EVERY 4-6 HOURS NEEDED FOR bronchospasms mupirocin 2 % ointment 1 applic topical TID 7 Days Qty: 15 0RF spironolactone 25 mg tablet See Rx Instructions .ROUTE .COMPLEX Rx Instructions: TAKE ONE TABLET BY MOUTH TWICE DAILY mirtazapine [Remeron] 15 mg tablet 15 mg PO QHS loratadine 10 mg tablet See Rx Instructions .ROUTE .COMPLEX Rx Instructions: TAKE ONE TABLET BY MOUTH EVERY DAY Referrals Follow up/Referrals: Reuben Fong MD [Primary Care Provider] - See instructions Activity Restrictions/Add. Instructions Additional Instructions/Restrictions: Drink plenty of fluids. Take tylenol or ibuprofen for pain or fever. Take the medications as directed. Follow up with your regular doctor. GO TO THE ER FOR ANY WORSENING SYMPTOMS Clinical Impressions Clinical Impression: Acute bronchitis, Sinusitis Instructions Patient Instructions: DI for Sinusitis, DI for Acute Bronchitis, Methylprednisolone [place]o [place] [facility] [place] General Stated complaint: congestion,wheezing.cough,headache Time Seen by Provider: 06/18/23 09:09 History of Present Illness Provider Complaint: She states that for the past 4 days he has had a productive cough with greenish sputum. She has sinus congestion also. Related Data Home Medications Medication Instructions Recorded Confirmed albuterol sulfate 90 mcg/actuation See Rx Instructions .Route 05/15/23 05/29/23 aerosol inhaler (ProAir HFA) .COMPLEX . alendronate 70 mg tablet See Rx Instructions .Route 05/15/23 05/29/23 .COMPLEX osteo lisinopril 10 mg tablet 10 mg PO DAILY . 05/15/23 05/29/23 loratadine 10 mg tablet See Rx Instructions .Route 05/15/23 05/29/23 .COMPLEX . metoprolol succinate 25 mg See Rx Instructions .Route 05/15/23 05/29/23 tablet,extended release 24 hr .COMPLEX . mirtazapine 15 mg tablet (Remeron) 15 mg PO QHS . 05/15/23 05/29/23 pantoprazole 40 mg tablet,delayed See Rx Instructions .Route 05/15/23 05/29/23 release .COMPLEX gerd spironolactone 25 mg tablet See Rx Instructions .Route 05/15/23 05/29/23 .COMPLEX . Previous Rx's Medication Instructions Recorded aspirin 81 mg tablet,delayed 81 mg PO DAILY heart Viadeo #100 09/27/22 release tabs mupirocin 2 % topical ointment 1 applic topical TID 7 days #15 05/15/23 grams c
[2023-06-18 09:15] VITALS: BP 132/88; PULSE 54; RESP 20; TEMP 36.5; O2SAT 96; BMI 30.2
[2023-06-18 10:13] VITALS: BP 132/88; PULSE 54; RESP 18; TEMP 36.5; O2SAT 96
--- NOTE | 2023-06-18 10:14 | PC.NURSE ---
Called pharmacy and cancelled medrol dose pack.
== END 2023-06-18 10:13 | disposition home or self-care (01) ==
PROVIDERS: Emergency Provider Nurse Practitioner Family; PCP Emergency Medicine
DX: J20.9 Acute bronchitis, unspecified (principal); J01.90 Acute sinusitis, unspecified; I10 Essential (primary) hypertension; F41.9 Anxiety disorder, unspecified; F32.A Depression, unspecified
CPT/HCPCS: 99212; 99214; G0463

== ENCOUNTER 2023-06-27 10:52 | Emergency (ER) | payer MEDICARE, OTHER, SELFPAY ==
[2023-06-27] VITALS (8 sets, daily range): BP systolic 117–179; BP diastolic 70–106; PULSE 68–87; RESP 20–22; TEMP 36.6–36.8; O2SAT 96–100; BMI 29.8
--- NOTE | 2023-06-27 10:56 | PC.NURSE ---
pt attempting to provide urine sample
--- NOTE | 2023-06-27 11:34 | HMH.EDGENADL ---
Discharge Plan Disposition Patient Disposition: Home, Self-Care Prescriptions Prescriptions: New ondansetron 4 mg tablet,disintegrating 4 mg PO Q6H PRN (Reason: nausea and vomiting) 5 Days Qty: 20 0RF No Action fluoxetine 40 mg capsule 40 mg PO DAILY Qty: 30 2RF tramadol 50 mg tablet 50 mg PO BID Qty: 60 0RF gabapentin 300 mg capsule 300 mg PO TID Qty: 90 1RF clonazepam [Klonopin] 0.5 mg tablet 0.5 mg PO TID Qty: 90 1RF aspirin 81 mg tablet,delayed release (DR/EC) 81 mg PO DAILY Qty: 100 3RF Rx Instructions: TAKE ONE TABLET BY MOUTH EVERY DAY FOR heart health hydrocodone-acetaminophen 7.5-325 mg tablet 1 tab PO QID Qty: 120 0RF alendronate 70 mg tablet See Rx Instructions .ROUTE .COMPLEX Rx Instructions: TAKE ONE TABLET BY MOUTH ONCE a WEEK pantoprazole 40 mg tablet,delayed release (DR/EC) See Rx Instructions .ROUTE .COMPLEX Rx Instructions: TAKE ONE TABLET BY MOUTH EVERY DAY lisinopril 10 mg tablet 10 mg PO DAILY metoprolol succinate 25 mg tablet extended release 24 hr See Rx Instructions .ROUTE .COMPLEX Rx Instructions: TAKE ONE TABLET BY MOUTH EVERY DAY albuterol sulfate [ProAir HFA] 90 mcg/actuation HFA aerosol inhaler See Rx Instructions .ROUTE .COMPLEX Rx Instructions: INHALE TWO PUFFS BY MOUTH EVERY 4-6 HOURS NEEDED FOR bronchospasms mupirocin 2 % ointment 1 applic topical TID 7 Days Qty: 15 0RF spironolactone 25 mg tablet See Rx Instructions .ROUTE .COMPLEX Rx Instructions: TAKE ONE TABLET BY MOUTH TWICE DAILY mirtazapine [Remeron] 15 mg tablet 15 mg PO QHS loratadine 10 mg tablet See Rx Instructions .ROUTE .COMPLEX Rx Instructions: TAKE ONE TABLET BY MOUTH EVERY DAY azithromycin [Zithromax] 250 mg tablet 250 mg PO UD DOSE PK Qty: 6 0RF Rx Instructions: Take two (2) tablets today, then one (1) tablet days #2 thru #5 benzonatate [benzonatate] 100 mg capsule 100 mg PO TIDP PRN (Reason: Cough) Qty: 30 0RF methylprednisolone 4 mg Tablets,Dose Pack 4 mg PO DIRECTED Qty: 21 0RF Referrals Follow up/Referrals: Reuben Fong MD [Primary Care Provider] - See instructions Activity Restrictions/Add. Instructions Additional Instructions/Restrictions: Given your recent antibiotic use and your persistent diarrhea I am concerned about invasive bacterial species such as C. difficile causing your symptoms. Stool studies have been ordered please follow-up with your primary care doctor or return your specimen cup to be sent off for testing. Return with any worsening symptoms such as inability to keep fluids down worsening pain high fevers etc. Clinical Impressions Clinical Impression: Diarrhea, Hypokalemia, Malaise Instructions Patient Instructions: DI for Diarrhea and Traveler's Diarrhea -- Adult, DI for Diarrhea and Traveler's Diarrhea -- Child, DI for Nausea -- Adult, DI for Nausea -- Child Discharge ED Provider: Catrachita Luo Adult HPI <Catrachita Luo MD - Last Filed: 06/27/23 15:51> General Chief complaint: Nausea/Vomiting/Diarrhea Stated complaint: chest congestion, cough, diarrhea, nausea Time Seen by Provider: 06/27/23 11:11 Mode of Arrival: Family Vehicle Source of Information: Patient, Relative and Medical Record Limitations: No Limitations Description of Symptoms (Recalled from ER Triage Doc. by RN): Pt c/o nausea, profuse diarrhea, fever, non-productive cough, SOA, and general malaise. She was treated for bronchitis and sinusitis at the [facility] recently. She completed her antibiotics however is still feeling unwell. Reports fevers at night. And she is Trying to cough it up but currently no productive cough. History of Present Illness HPI narrative: This 67-year-old female presents to the emergency department with concerns of lower abdominal pain, nonproductive cough, shortness of breath, generalized weakness, nausea. Patient
--- NOTE | 2023-06-27 11:38 | XR_ITS ---
FINAL REPORT TECHNIQUE: Chest PA & Lateral CLINICAL HISTORY: cough COMPARISON: 11/01/2022 FINDINGS: 2 views of the chest were performed. A left-sided chest port tip is seen in the SVC. The heart size is normal. The mediastinum is within normal limits. There are mild chronic changes in both lungs. There is no acute cardiopulmonary process. There are no pleural effusions. There is no pneumothorax. The bony thorax appears intact. IMPRESSION: No acute cardiopulmonary process. Reviewed, Interpreted and Dictated by Bill Thomas MD Transcribed by Saad Colbert Authenticated and [facility]
--- NOTE | 2023-06-27 11:38 | CT_ITS ---
FINAL REPORT TECHNIQUE: Postcontrast axial images through the abdomen and pelvis were performed. This study was performed with techniques to keep radiation doses as low as reasonably achievable, (ALARA). Individualized dose reduction techniques using automated exposure control or adjustment of mA and/or kV according to the patient's size were employed. CLINICAL HISTORY: abd pain FINDINGS: Abdomen: There is minimal scarring in the lung bases. There is mild fatty infiltration of the liver. The gallbladder is surgically absent. The common duct measures 8 mm. There is no choledocholithiasis. There is a small sliding-type hiatal hernia. The spleen is unremarkable. The adrenals are normal. The pancreas is unremarkable. The kidneys enhance appropriately. The aorta is normal in caliber. No free fluid or adenopathy is identified. No findings for mechanical bowel obstruction are identified. Pelvis: The appendix is not identified. The urinary bladder is decompressed. No free fluid, free air, abscess or adenopathy is identified. There are calcified phleboliths in the floor the pelvis. IMPRESSION: No acute process identified. Reviewed, Interpreted and Dictated by Bill Thomas MD Transcribed by Saad Colbert Authenticated and [facility]
--- NOTE | 2023-06-27 12:19 | ECG_ITS ---
APPROVED REPORT Exam: Resting ECG HR:64 bpm ECG Measurements Heart Rate 64 AXES QRSd 101 QRS 15 QT 452 T 35 QTc 462 Conclusion SUPRAVENTRICULAR RHYTHM MODERATE T-WAVE ABNORMALITY, CONSIDER ANTERIOR ISCHEMIA [-0.1+ mV T-WAVE IN V3/V4] ABNORMAL ECG UNCONFIRMED REPORT Electronically signed by : Colin Durant MD 06/27/2023 20:07:24
[2023-06-27 12:25] LABS: Basophils % 0.4 % (0.1-2.0); Eosinophils # 0.1 K/mm3 (0.0-0.4); Eosinophils % 1.4 % (0.1-12.0); Hematocrit 35.5 % (37.0-47.0); Lymphocytes # 2.3 K/mm3 (0.7-4.5); Lymphocytes % 31.4 % (10-50); Mean Corpuscular HGB Conc 33.8 g/dL (31.8-35.4); Mean Corpuscular Hemoglobin 28.8 pg (27.0-31.2); Mean Corpuscular Volume 85.3 fl (81-99); Mean Platelet Volume 9.6 fl (7.4-10.4); Monocytes # 0.3 K/mm3 (0.1-1.0); Monocytes % 4.3 % (1.7-9.3); Neutrophils # 4.7 K/mm3 (1.8-7.8); Neutrophils % 62.5 % (37.0-80.0); Platelet Count 320 K/mm3 (142-424); Red Blood Count 4.16 M/mm3 (4.20-5.40); Red Cell Distribution Width 15.5 % (11.5-17.5); White Blood Count 7.5 K/mm3 (4.8-10.8)
[2023-06-27 12:46] LABS: Chloride 109 mmol/L (98-107); Potassium 3.1 mmoL/L (3.5-5.1); Sodium 141 mmol/L (136-145)
[2023-06-27 12:48] LABS: Coronavirus 19, PCR Not Detected (NotDetected); Influenza A, PCR Not Detected (NotDetected); Influenza B, PCR Not Detected (NotDetected)
[2023-06-27 12:49] LABS: Alanine Aminotransferase 37 U/L (12-78); Albumin Level 4.6 g/dl (3.5-5.0); Albumin/Globulin Ratio 1.4 (1.1-1.8); Alkaline Phosphatase 91 U/L (38-126); Anion Gap 12.1 mEq/L (5-15); Aspartate Amino Transferase 42 U/L (14-36); Bilirubin,Total 0.3 mg/dl (0.2-1.3); Blood Urea Nitrogen 15 mg/dl (7-17); Calcium 9.3 mg/dl (8.4-10.2); Carbon Dioxide 23 mmol/L (22.0-30.0); Creatinine Clearance Estimated 68 mL/min (50-200); Estimated Glomerular Filt Rate 62 ml/min (>60); GFR (African American) 76 ML/MIN (>60); Globulin 3.4 g/dL (1.3-3.2); Glucose 115 mg/dl (74-100); Lipase 111 U/L (23-300)
[2023-06-27 12:51] LABS: Lactic Acid 1.6 mmol/L (0.7-2.1)
[2023-06-27 13:06] LABS: Troponin I < 0.01 ng/ml (0.00-0.034)
--- NOTE | 2023-06-27 13:47 | PC.NURSE ---
per dr. barksdale (from in office) okay to use powerport for contrast for CT pt was stating that she had been told unable to have contrast through her port, we contacted dr. barksdale to check on this r/t he was who placed port.
--- NOTE | 2023-06-27 14:50 | HMH.ITSTN ---
doctor said to proceed with contrast study
[2023-06-27 15:31] LABS: Troponin I < 0.01 ng/ml (0.00-0.034)
--- NOTE | 2023-06-27 15:38 | PC.NURSE ---
Dr. Barroso at bedside
--- NOTE | 2023-06-27 16:03 | PC.NURSE ---
began po challenge per ER
== END 2023-06-27 16:58 | disposition home or self-care (01) ==
PROVIDERS: Emergency Provider Emergency Medicine; PCP Emergency Medicine
DX: R19.7 Diarrhea, unspecified (principal); E87.6 Hypokalemia; R53.81 Other malaise; R10.9 Unspecified abdominal pain; I10 Essential (primary) hypertension
CPT/HCPCS: 71046; 74177; 80053; 83605; 83690; 84484; 85025; 87636; 93005; 96361; 96374; 96376; 99285; J1642; J2405; Q9967

== ENCOUNTER → 2023-06-28 12:15 | Outpatient (CLI) | payer OTHER, SELFPAY ==
[2023-06-28 13:32] LABS: Adenovirus F 40/41, stool Not Detected (NotDetected); Astrovirus Not Detected (NotDetected); Campylobacter Not Detected (NotDetected); Clostridium Difficile A/B, PCR Not Detected (NotDetected); Cryptosporidium Not Detected (NotDetected); Cyclospora Cayetanesis Not Detected (NotDetected); Entamoeba histolytica Not Detected (NotDetected); Enteroaggregative E coli Not Detected (NotDetected); Enteropathogenic E coli Not Detected (NotDetected); Enterotoxigenic E coli Not Detected (NotDetected); Giardia lamblia Not Detected (NotDetected); Norovirus Not Detected (NotDetected); Plesimonas Shigalloides, PCR Not Detected (NotDetected); Rotavirus A Not Detected (NotDetected); Salmonella, PCR Not Detected (NotDetected); Sapovirus Not Detected (NotDetected); Shiga-like toxin E coli Not Detected (NotDetected); Shigella Enterovasive E coli Not Detected (NotDetected); Vibrio Cholerae Not Detected (NotDetected); Vibrio, PCR Not Detected (NotDetected); Yersinia Entercolitica, PCR Not Detected (NotDetected)
== END ==
PROVIDERS: Student in an Organized Health Care Education/Training Program; PCP Emergency Medicine; Visit Provider Emergency Medicine
DX: R19.7 Diarrhea, unspecified (principal)
CPT/HCPCS: 87507

== ENCOUNTER 2023-06-30 11:10 | Emergency (ER) | payer MEDICARE, OTHER, SELFPAY ==
[2023-06-30] VITALS (13 sets, daily range): BP systolic 112–161; BP diastolic 64–75; PULSE 46–69; RESP 14–22; TEMP 36.6–36.7; O2SAT 92–98; BMI 29.2
--- NOTE | 2023-06-30 11:21 | PC.NURSE ---
PT AMBULATING TO THE BR
--- NOTE | 2023-06-30 12:08 | CT_ITS ---
FINAL REPORT TECHNIQUE: Pre-and postcontrast images of the abdomen and pelvis were performed by computed tomography. Extensive 3-D reconstruction images were performed. A CTA was performed. This study was performed with techniques to keep radiation doses as low as reasonably achievable (ALARA). Individualized dose reduction techniques using automated exposure control or adjustment of mA and/or kV according to the patient's size were employed. CLINICAL HISTORY: diffuse abd pain and diarrhea COMPARISON: None FINDINGS: ABDOMEN AND PELVIS: There is mild scarring in the left lung base. The gallbladder has been surgically resected. The common bile duct is mildly enlarged, measuring 11 mm in diameter, with mild intra and extrahepatic ductal dilatation present. Precontrast images demonstrate no evidence of nephrolithiasis. No adrenal masses are identified. The spleen and pancreas are unremarkable. CTA: The abdominal aorta is proper caliber. The SMA, celiac axis, and VAHID are patent. There is no significant stenosis or calcification. The renal arteries are patent bilaterally. There is a single right renal artery present as well as dual left renal arteries. The common iliac, internal and external iliac arteries are widely patent. IMPRESSION: No significant elevated vascular abnormality is identified. Specifically no focal areas of stenosis are present in the celiac axis, superior mesenteric and inferior mesenteric arteries. Single right renal artery and dual left renal arteries, normal in appearance. Mild intra and extrahepatic ductal dilatation is present, with enlargement of the common bile duct at 11 mm. Reviewed, Interpreted and Dictated by Bill Thomas MD Transcribed by Nahomi Hunter Authenticated and [facility]
[2023-06-30 12:21] LABS: Basophils % 0.1 % (0.1-2.0); Eosinophils # 0.1 K/mm3 (0.0-0.4); Hematocrit 30.2 % (37.0-47.0); Hemoglobin 10.2 g/dL (12.2-16.2); Lymphocytes # 2.2 K/mm3 (0.7-4.5); Mean Corpuscular HGB Conc 33.9 g/dL (31.8-35.4); Mean Corpuscular Hemoglobin 29.2 pg (27.0-31.2); Mean Corpuscular Volume 85.9 fl (81-99); Mean Platelet Volume 9.2 fl (7.4-10.4); Monocytes # 0.3 K/mm3 (0.1-1.0); Monocytes % 4.2 % (1.7-9.3); Neutrophils # 3.9 K/mm3 (1.8-7.8); Neutrophils % 59.7 % (37.0-80.0); Platelet Count 278 K/mm3 (142-424); Red Blood Count 3.51 M/mm3 (4.20-5.40); Red Cell Distribution Width 15.4 % (11.5-17.5); White Blood Count 6.4 K/mm3 (4.8-10.8)
[2023-06-30] MEDS: MORPHINE 4MG/ML SYRINGE 4 MG IV (12:21)
[2023-06-30] MEDS: ONDANSETRON 4MG/2ML VIAL 4 MG IV ×2 (12:21→15:35)
[2023-06-30] MEDS: LACTATED RINGERS 1000ML 1,000 ML 999 ML IV (12:21)
[2023-06-30 12:24] LABS: Lactic Acid 0.9 mmol/L (0.7-2.1)
[2023-06-30 12:25] LABS: Alanine Aminotransferase 23 U/L (12-78); Albumin Level 3.8 g/dl (3.5-5.0); Albumin/Globulin Ratio 1.4 (1.1-1.8); Alkaline Phosphatase 61 U/L (38-126); Aspartate Amino Transferase 35 U/L (14-36); Bilirubin,Total 0.4 mg/dl (0.2-1.3); Blood Urea Nitrogen 17 mg/dl (7-17); Calcium 9.1 mg/dl (8.4-10.2); Carbon Dioxide 26 mmol/L (22.0-30.0); Chloride 107 mmol/L (98-107); Creatinine Clearance Estimated 66 mL/min (50-200); Estimated Glomerular Filt Rate 62 ml/min (>60); GFR (African American) 76 ML/MIN (>60); Globulin 2.8 g/dL (1.3-3.2); Glucose 103 mg/dl (74-100); Lipase 124 U/L (23-300); Magnesium 1.3 mg/dl (1.6-2.3); Phosphorous 3.2 mg/dl (2.5-4.5); Sodium 141 mmol/L (136-145); Total Protein,Serum 6.6 g/dl (6.3-8.2)
[2023-06-30 12:29] LABS: C-Reactive Protein 1.2 mg/L (0-4)
--- NOTE | 2023-06-30 12:29 | HMH.EDGENADL ---
Discharge Plan Disposition Patient Disposition: Home, Self-Care Prescriptions Prescriptions: New loperamide 2 mg capsule 2 mg PO Q6H PRN (Reason: loose stool) 5 Days Qty: 20 0RF Rx Instructions: Please take 4 mg initially, followed by 2 mg after each loose stool, maximum 16 mg/day No Action fluoxetine 40 mg capsule 40 mg PO DAILY Qty: 30 2RF gabapentin 300 mg capsule 300 mg PO TID Qty: 90 1RF clonazepam [Klonopin] 0.5 mg tablet 0.5 mg PO TID Qty: 90 1RF aspirin 81 mg tablet,delayed release (DR/EC) 81 mg PO DAILY Qty: 100 3RF Rx Instructions: TAKE ONE TABLET BY MOUTH EVERY DAY FOR heart health tramadol 50 mg tablet 50 mg PO BID Qty: 60 0RF hydrocodone-acetaminophen 7.5-325 mg tablet 1 tab PO QID Qty: 120 0RF alendronate 70 mg tablet See Rx Instructions .ROUTE .COMPLEX Rx Instructions: TAKE ONE TABLET BY MOUTH ONCE a WEEK pantoprazole 40 mg tablet,delayed release (DR/EC) See Rx Instructions .ROUTE .COMPLEX Rx Instructions: TAKE ONE TABLET BY MOUTH EVERY DAY lisinopril 10 mg tablet 10 mg PO DAILY metoprolol succinate 25 mg tablet extended release 24 hr See Rx Instructions .ROUTE .COMPLEX Rx Instructions: TAKE ONE TABLET BY MOUTH EVERY DAY albuterol sulfate [ProAir HFA] 90 mcg/actuation HFA aerosol inhaler See Rx Instructions .ROUTE .COMPLEX Rx Instructions: INHALE TWO PUFFS BY MOUTH EVERY 4-6 HOURS NEEDED FOR bronchospasms mupirocin 2 % ointment 1 applic topical TID 7 Days Qty: 15 0RF spironolactone 25 mg tablet See Rx Instructions .ROUTE .COMPLEX Rx Instructions: TAKE ONE TABLET BY MOUTH TWICE DAILY mirtazapine [Remeron] 15 mg tablet 15 mg PO QHS loratadine 10 mg tablet See Rx Instructions .ROUTE .COMPLEX Rx Instructions: TAKE ONE TABLET BY MOUTH EVERY DAY ondansetron 4 mg tablet,disintegrating 4 mg PO Q6H PRN (Reason: nausea and vomiting) 5 Days Qty: 20 0RF azithromycin [Zithromax] 250 mg tablet 250 mg PO UD DOSE PK Qty: 6 0RF Rx Instructions: Take two (2) tablets today, then one (1) tablet days #2 thru #5 benzonatate [benzonatate] 100 mg capsule 100 mg PO TIDP PRN (Reason: Cough) Qty: 30 0RF methylprednisolone 4 mg Tablets,Dose Pack 4 mg PO DIRECTED Qty: 21 0RF Referrals Follow up/Referrals: Reuben Fong MD [Primary Care Provider] - See instructions Activity Restrictions/Add. Instructions Additional Instructions/Restrictions: Please follow-up with Dr. Barajas in [place] for further evaluation of your chronic diarrhea. Contact information has been sent to Dr. Barajas's office they will call you and make an appointment next available. Return to the emergency part with any worsening symptoms or concerns. Clinical Impressions Clinical Impression: Dehydration, moderate, Diarrhea, Abdominal cramping Instructions Patient Instructions: DI for Diarrhea and Traveler's Diarrhea -- Adult, DI for Diarrhea and Traveler's Diarrhea -- Child, DI for Nausea -- Adult, DI for Nausea -- Child Discharge ED Provider: Madison Barroso General Adult HPI General Chief complaint: Nausea/Vomiting/Diarrhea Stated complaint: vomiting,diarrhea,right side pain Time Seen by Provider: 06/30/23 11:47 Mode of Arrival: Ambulatory Source of Information: Patient Limitations: No Limitations Description of Symptoms (Recalled from ER Triage Doc. by RN): Patient states she was seen here in this ER on Monday related to diarrhea and nausea. States that it has not gotten any better and presents with worsening symptoms that have been going on for 2 weeks. History of Present Illness HPI narrative: Patient is a 67-year-old female presents today with persistent abdominal pain and diarrhea that been lasting for over 2 weeks. She was recently in the emergency department had negative CT scan and ultimately gave us a stool sample which was negative from a GI PCR panel. Patient states she had persistent symptoms no significant bleeding fevers or chills but abdominal cramping has significantly worsened as well as the diarrhea that is not improving. She does state that she has a history of Crohn's disease in the remote past and she has not had an exacerbation and has not seen a evening or night nurse supervisor in years but forgot to tell us this history last time she was in the emergency department. Related Data Home Medications Medication Instructions Recorded Confirmed albuterol sulfate 90 mcg/actuation See Rx Instructions .Route 05/15/23 05/29/23 aerosol inhaler (ProAir HFA) .COMPLEX . alendronate 70 mg tablet See Rx Instructions .Route 05/15/23 05/29/23 .COMPLEX osteo lisinopril 10 mg tablet 10 mg PO DAILY . 05/15/23 05/29/23 loratadine 10 mg tablet See Rx Instructions .Route 05/15/23 05/29/23 .COMPLEX . metoprolol succinate 25 mg See Rx Instructions .Route 05/15/23 05/29/23 tablet,extended release 24 hr .COMPLEX . mirtazapine 15 mg tablet (Remeron) 15 mg PO QHS . 05/15/23 05/29/23 pantoprazole 40 mg tablet,delayed See Rx Instructions .Route 05/15/23 05/29/23 release .COMPLEX gerd spironolactone 25 mg tablet See Rx Instructions .Route 05/15/23 05/29/23 .COMPLEX . Previous Rx's Medication Instructions Recorded aspirin 81 mg tablet,delayed 81 mg PO DAILY heart Bridj #100 09/27/22 release tabs mupirocin 2 % topical ointment 1 applic topical TID 7 days #15 05/15/23 grams clonazepam 0.5 mg tablet (Klonopin) 0.5 mg PO TID #90 tabs 05/29/23 fluoxetine 40 mg capsule 40 mg PO DAILY . #30 caps 05/29/23 gabapentin 300 mg capsule 300 mg PO TID Pain #90 caps 05/29/23 azithromycin 250 mg tablet 250 mg PO UD DOSE PK #6 tabs 06/18/23 (Zithromax) benzonatate 100 mg capsule 100 mg PO TIDP PRN Cough #30 caps 06/18/23 methylprednisolone 4 mg tablets in 4 mg PO DIRECTED #21 tabs 06/18/23 a dose pack ondansetron 4 mg disintegrating 4 mg PO Q6H PRN nausea and 06/27/23 tablet vomiting 5 days #20 tabs hydrocodone 7.5 mg-acetaminophen 1 tab PO QID #120 tabs 06/30/23 325 mg tablet loperamide 2 mg capsule 2 mg PO Q6H PRN loose stool 5 days 06/30/23 #20 caps tramadol 50 mg tablet 50 mg PO BID pain #60 tabs 06/30/23 Allergies Allergy/AdvReac Type Severity Reaction Status Date / Time cephalexin [From Keflex] Allergy Severe Difficulty Verified 06/18/23 09:44 Breathing prochlorperazine Allergy Severe Swelling Verified 06/18/23 09:44 [PROCHLORPERAZINE] of Lip/Tongue/Throat codeine [CODEINE] Allergy Unknown VOMITING / Verified 06/18/23 09:44 NAUSEA morphine [MORPHINE] Allergy Unknown Nausea Verified 06/18/23 09:44 prednisone [PREDNISONE] Allergy Unknown BP ISSUES Verified 06/18/23 09:44 promethazine [From PHENERGAN] Allergy Unknown Verified 06/18/23 09:44 metoclopramide [From Reglan] Allergy Nausea Verified 06/18/23 09:44 lactose AdvReac Intermediate Abdominal Verified 06/18/23 09:44 Pain PFSH PFSH Disclaimer: The information contained in this section may have been updated after the patient was seen, as this information can be updated by other users. Medical History Allergies Anxiety Bilateral lower extremity edema Chest pain Cholecystectomy planned Depression Dyspnea Edema History of anemia HTN (hypertension) Hx of Crohn's disease Insomnia Knee effusion, right Osteoporosis Pneumonia Positive D dimer Sinus bradycardia Urinary tract infection Surgical History H/O oral surgery H/O total hysterectomy History of appendectomy History of arthroscopy of right knee History of esophagogastroduodenoscopy (EGD) History of intestinal surgery Family History Other Cancer Heart attack Social History Smoking Status: Never smoker second hand exposure: No alcohol intake: never substance use type: denies use current occupational status: disabled Travel in the last 8 weeks: None household members: none housing: apartment number of children: 2 current occupational exposures/hazards: No caffeine: Yes ROS Obtained: Yes All systems reviewed & no additional complaints except as documented Physical Exam General General appearance: alert Respiratory Respiratory exam: Present normal lung sounds bilaterally Cardiovascular Cardiovascular exam: Present other (Cool extremities poor skin turgor and delayed capillary refill dry mucous membranes) Abdominal Exam Abdominal exam: Present soft and tenderness (Diffuse tenderness palpation throughout the entire abdomen no rebound or guarding abdomen is largely very soft) Neurological Exam Neurological exam: Present alert and oriented X3 Medical Decision Making Grant Inquiry Pt receiving controlled substance: No Vital Signs: 06/30/23 11:12 06/30/23 12:30 06/30/23 13:30 Temperature 98.0 F Temperature Source Oral Pulse Rate 56 L 55 L Pulse Rate [Radial] 55 L Respiratory Rate 16 18 20 Blood Pressure 161/73 H 141/74 H Blood Pressure [Right Arm] 112/71 Blood Pressure Mean 102 109 Blood Pressure Mean [Right Arm] 84 Blood Pressure Source [Right Arm] Automatic Cuff Blood Pressure Position [Right Arm] Sitting 02 Sat by Pulse Oximetry 98 96 94 L Oxygen Delivery Method Room Air Lab Data Lab results reviewed: Yes I reviewed the patient's lab results. Lab Results 06/30/23 12:00: WBC 6.4, RBC 3.51 L, Hgb 10.2 L, Hct 30.2 L, MCV 85.9, MCH 29.2, MCHC 33.9, RDW 15.4, Plt Count 278, MPV 9.2, Neut % (Auto) 59.7, Lymph % (Auto) 34.0, Floyd % (Auto) 4.2, Eos % (Auto) 2.0, Baso % (Auto) 0.1, Neut # (Auto) 3.9, Lymph # (Auto) 2.2, Floyd # (Auto) 0.3, Eos # (Auto) 0.1, Baso # (Auto) 0.0, Sodium 141, Potassium 3.0 L, Chloride 107, Carbon Dioxide 26, Anion Gap 11.0, BUN 17, Creatinine 0.90, Estimated Creat Clear 66, Estimated GFR 62, Est GFR ( Amer) 76, Glucose 103 H, Lactate 0.9, Calcium 9.1, Phosphorus 3.2, Magnesium 1.3 L, Total Bilirubin 0.4, AST 35, ALT 23 D, Alkaline Phosphatase 61, C-Reactive Protein 1.2, Total Protein 6.6, Albumin 3.8, Globulin 2.8, Albumin/Globulin Ratio 1.4, Lipase 124 06/30/23 12:00 06/30/23 12:00 Orders (Tests/Meds): ED MEDICATIONS Generic Name Dose Route Start Last Admin Trade Name Freq PRN Reason Stop Dose Admin Potassium Chloride/Water 100 mls @ 100 mls/hr 06/30/23 12:35 Potassium Chloride 10meq/100ml Ivpb IV 06/30/23 14:34 Q1H CEM Sodium Chloride 10 ml 06/30/23 13:12 06/30/23 13:13 Sodium Chloride 0.9% 10ml Syr (Rad Only) IV 07/30/23 13:11 10 ml NEEDED PRN Administration Maintain IV Site Discontinued Medications Generic Name Dose Route Start Last Admin Trade Name Freq PRN Reason Stop Dose Admin Lactated Ringer's 1,000 mls @ 999 mls/hr 06/30/23 12:15 06/30/23 12:21 Lactated Ringer's 1000 Ml Bag IV 06/30/23 13:15 999 mls/hr .Q1H1M CEM Administration Magnesium Sulfate 2 gm in 50 mls @ 50 mls/hr 06/30/23 12:34 06/30/23 12:51 Magnesium Sulfate 2gm/50ml Premix IV 06/30/23 13:33 50 mls/hr ONCE ONE Administration Iopamidol 100 ml 06/30/23 13:12 06/30/23 13:13 Iopamidol-370 (76%);100ml Bottle IV 06/30/23 13:13 100 ml ONCE ONE Administration Morphine Sulfate 4 mg 06/30/23 12:04 06/30/23 12:21 Morphine 4mg/Ml Syringe IV 06/30/23 12:05 4 mg ONCE ONE Administration Ondansetron HCl 4 mg 06/30/23 12:04 06/30/23 12:21 Ondansetron 4mg/2ml Vial IV 06/30/23 12:05 4 mg ONCE ONE Administration Potassium Chloride 40 meq 06/30/23 12:34 06/30/23 12:51 Potassium Chloride 20meq Tab PO 06/30/23 12:35 40 meq ONCE ONE Administration Sodium Chloride 50 ml 06/30/23 13:12 06/30/23 13:13 0.9 % Sodium Chloride 50 Ml Vial IV 06/30/23 13:13 50 ml ONCE ONE Administration ORDERS Category Date Time Status CT angio abdomen pelvis Stat Cat Scan 06/30/23 12:08 Completed CBC w/Auto Diff [Complete Blood Count Auto Diff] Stat Lab 06/30/23 12:00 Completed CMP [Comprehensive Metabolic Panel] Stat Lab 06/30/23 12:00 Completed CRP [C-Reactive Protein] Stat Lab 06/30/23 12:00 Completed Cryptosporidium, EIA Routine Lab 06/30/23 12:04 Ordered Cyclosporine Stat Lab 06/30/23 12:37 Received Diarrhea 23 Panel, PCR Stat Lab 06/30/23 12:06 Ordered Lactic Acid Stat Lab 06/30/23 12:00 Completed Lipase Stat Lab 06/30/23 12:00 Completed Magnesium Stat Lab 06/30/23 12:00 Completed Phosphorous Stat Lab 06/30/23 12:00 Completed Ova + Parasite Exam Stat Micro 06/30/23 12:11 Ordered Stool Culture Stat Micro 06/30/23 12:10 Ordered Medical Decision Narrative: Is a 67-year-old nontoxic-appearing female presenting today with persistent diarrhea and abdominal crampiness. Differential includes colitis infectious diarrhea which can include many pathogens including Entamoeba histolytica Cryptosporidium Cyclospora and other pathogens which were recently tested in the GI PCR panel. Given that she has had persistent symptoms and is also recently on antibiotics still have a high pretest probability for diagnosis such as C. difficile even though she had a negative PCR panel recently. We will repeat that also will send stool culture as well as specific assays for Cryptosporidium and Giardia and Cyclospora. Ova and parasites also been ordered. She will need to follow-up with a evening or night nurse supervisor regardless of what her findings are today in the emergency department. At this point there is no clinical evidence or radiographic evidence of colitis we will initiate antidiarrheal agents from a symptomatic standpoint and she understands risks of developing possible toxic megacolon which is unlikely. We will give a referral to Dr. Pavel Barajas endorsed down to evaluate this further unless she has findings warranting inpatient admission. Reassessment 2:16 PM patient still has been unable to give us a stool sample. CT scan performed which I personally interpreted which shows no acute abnormalities this is also consistent with radiologist read. She has mild hypokalemia and hypomagnesemia and this was replaced. No significant organ dysfunction patient is able to tolerate fluids by mouth. Serial abdominal exams are benign from an emergency standpoint. We have advised that she follow-up with gastroenterology and we have actually called Dr. Barajas's office they will call her for an appointment next available appointment to continue to escalate the work-up for this chronic diarrhea. At this point I am okay given her loperamide from a symptomatic standpoint she has been advised to stop immediately if she develops any significant worsening in her pain. CRP is only 1.2 which strongly suggest against any acute or chronic inflammatory condition. There is remains diagnostic uncertainty in this patient's case but this is not consistent with anything that requires emergent surgical intervention or further hospitalization. Critical Care Critical Care Time Critical Care Time: No
[2023-06-30] MEDS: MAGNESIUM SULFATE IN WATER 2 GM/50 ML PIGGYBACK IV (12:51)
[2023-06-30] MEDS: POTASSIUM CHLORIDE 20MEQ TAB 40 MEQ PO (12:51)
--- NOTE | 2023-06-30 13:00 | PC.NURSE ---
Assumed patient care at this time
[2023-06-30] MEDS: SODIUM CHLORIDE 0.9% 10ML SYR (RAD ONLY) 10 ML IV (13:13)
[2023-06-30] MEDS: IOPAMIDOL-370 (76%);100ML BOTTLE 100 ML IV (13:13)
[2023-06-30] MEDS: 0.9 % SODIUM CHLORIDE 50 ML VIAL IV (13:13)
[2023-06-30] MEDS: KCl 10mEq/100ml 100 ML 100 MEQ IV ×2 (14:19→15:17)
[2023-06-30] MEDS: ACETAMINOPHEN 500MG TAB 1000 MG PO (15:34)
[2023-06-30] MEDS: KETOROLAC 30MG/ML VIAL 15 MG IV (15:34)
--- NOTE | 2023-06-30 15:41 | PC.NURSE ---
Rounded on patient; Patient ambulated to bathroom
--- NOTE | 2023-06-30 15:52 | PC.NURSE ---
Patient back to room; call light within reach of patient
--- NOTE | 2023-06-30 16:02 | PC.NURSE ---
Patient's HR 44; notified- V/O to half patient potassium. Potassium now running at 50mL/hr. Call light within reach of patient
[2023-07-10 21:31] LABS: Cyclosporine <10
== END 2023-06-30 17:18 | disposition home or self-care (01) ==
PROVIDERS: Emergency Provider Student in an Organized Health Care Education/Training Program; PCP Emergency Medicine
DX: E86.0 Dehydration (principal); E87.6 Hypokalemia; R10.9 Unspecified abdominal pain; R19.7 Diarrhea, unspecified; I10 Essential (primary) hypertension; Z87.19 Personal history of other diseases of the digestive system
CPT/HCPCS: 74174; 80053; 80158; 83605; 83690; 83735; 84100; 85025; 86140; 96365; 96367; 96375; 96376; 99284; J1642; J2405; J3475; Q9967

== ENCOUNTER 2023-07-19 12:17 | Emergency (ER) | payer MEDICARE, OTHER, SELFPAY ==
--- NOTE | 2023-07-19 12:20 | EXP.UTC ---
Discharge Plan Disposition Patient Disposition: Home, Self-Care Condition: Good Prescriptions Prescriptions: New benzonatate [benzonatate] 100 mg capsule 100 mg PO TIDP PRN (Reason: Cough) Qty: 30 0RF azithromycin [Zithromax] 250 mg tablet 250 mg PO UD DOSE PK Qty: 6 0RF Rx Instructions: Take two (2) tablets today, then one (1) tablet days #2 thru #5 No Action fluoxetine 40 mg capsule 40 mg PO DAILY Qty: 30 2RF gabapentin 300 mg capsule 300 mg PO TID Qty: 90 1RF tramadol 50 mg tablet 50 mg PO BID Qty: 60 2RF hydrocodone-acetaminophen 7.5-325 mg tablet 1 tab PO QID Qty: 120 0RF clonazepam [Klonopin] 0.5 mg tablet 0.5 mg PO TID Qty: 90 1RF aspirin 81 mg tablet,delayed release (DR/EC) 81 mg PO DAILY Qty: 100 3RF Rx Instructions: TAKE ONE TABLET BY MOUTH EVERY DAY FOR heart health alendronate 70 mg tablet See Rx Instructions .ROUTE .COMPLEX Rx Instructions: TAKE ONE TABLET BY MOUTH ONCE a WEEK pantoprazole 40 mg tablet,delayed release (DR/EC) See Rx Instructions .ROUTE .COMPLEX Rx Instructions: TAKE ONE TABLET BY MOUTH EVERY DAY lisinopril 10 mg tablet 10 mg PO DAILY metoprolol succinate 25 mg tablet extended release 24 hr See Rx Instructions .ROUTE .COMPLEX Rx Instructions: TAKE ONE TABLET BY MOUTH EVERY DAY albuterol sulfate [ProAir HFA] 90 mcg/actuation HFA aerosol inhaler See Rx Instructions .ROUTE .COMPLEX Rx Instructions: INHALE TWO PUFFS BY MOUTH EVERY 4-6 HOURS NEEDED FOR bronchospasms spironolactone 25 mg tablet See Rx Instructions .ROUTE .COMPLEX Rx Instructions: TAKE ONE TABLET BY MOUTH TWICE DAILY mirtazapine [Remeron] 15 mg tablet 15 mg PO QHS loratadine 10 mg tablet See Rx Instructions .ROUTE .COMPLEX Rx Instructions: TAKE ONE TABLET BY MOUTH EVERY DAY loperamide 2 mg capsule 2 mg PO Q6H PRN (Reason: loose stool) 5 Days Qty: 20 0RF Rx Instructions: Please take 4 mg initially, followed by 2 mg after each loose stool, maximum 16 mg/day Referrals Follow up/Referrals: Librado Gilmore DO [Primary Care Provider] - See instructions Clinical Impressions Clinical Impression: Acute viral syndrome, Sinusitis Instructions Patient Instructions: DI for Sinusitis, Coronavirus Disease 2019, Preventing the Spread of Coronavirus Discharge Instructions Discharge ED Provider: Papo Bunn [facility] General Stated complaint: achey,headache,chills Time Seen by Provider: 07/19/23 12:20 History of Present Illness Provider Complaint: She states that for the past 2 days she has had sinus pressure, sore throat, dry cough, body aches, chills and low grade fever. Related Data Home Medications Medication Instructions Recorded Confirmed albuterol sulfate 90 mcg/actuation See Rx Instructions .Route 05/15/23 07/18/23 aerosol inhaler (ProAir HFA) .COMPLEX . alendronate 70 mg tablet See Rx Instructions .Route 05/15/23 07/18/23 .COMPLEX osteo lisinopril 10 mg tablet 10 mg PO DAILY . 05/15/23 07/18/23 loratadine 10 mg tablet See Rx Instructions .Route 05/15/23 07/18/23 .COMPLEX . metoprolol succinate 25 mg See Rx Instructions .Route 05/15/23 07/18/23 tablet,extended release 24 hr .COMPLEX . mirtazapine 15 mg tablet (Remeron) 15 mg PO QHS . 05/15/23 07/18/23 pantoprazole 40 mg tablet,delayed See Rx Instructions .Route 05/15/23 07/18/23 release .COMPLEX gerd spironolactone 25 mg tablet See Rx Instructions .Route 05/15/23 07/18/23 .COMPLEX . Previous Rx's Medication Instructions Recorded aspirin 81 mg tablet,delayed 81 mg PO DAILY heart health #100 09/27/22 release tabs fluoxetine 40 mg capsule 40 mg PO DAILY . #30 caps 05/29/23 gabapentin 300 mg capsule 300 mg PO TID Pain #90 caps 05/29/23 loperamide 2 mg capsule 2 mg PO Q6H PRN loose stool 5 days 06/30/23 #20 caps clonazepam 0.5 mg tablet (Klonopin) 0.5 mg PO TID #90 tabs 07/12/23
[2023-07-19 12:45] VITALS: BP 142/91; PULSE 82; RESP 18; TEMP 36.8; O2SAT 95; BMI 29.5
[2023-07-19 13:29] VITALS: BP 142/91; PULSE 82; RESP 18; TEMP 36.8; O2SAT 94
== END 2023-07-19 13:26 | disposition home or self-care (01) ==
PROVIDERS: Emergency Provider Nurse Practitioner Family; PCP Internal Medicine
DX: U07.1 COVID-19 (principal); J01.90 Acute sinusitis, unspecified; R51.9 Headache, unspecified; R07.0 Pain in throat; R05.9 Cough, unspecified; R50.9 Fever, unspecified; R11.0 Nausea; M79.18 Myalgia, other site; I10 Essential (primary) hypertension
CPT/HCPCS: 87635; 99212; 99214; G0463

== ENCOUNTER 2023-07-27 11:27 | Emergency (ER) | payer MEDICARE, OTHER, SELFPAY ==
--- NOTE | 2023-07-27 11:56 | XR_ITS ---
FINAL REPORT TECHNIQUE: Chest PA & Lateral CLINICAL HISTORY: TIGRE CALZADA + 1 week ago COMPARISON: 06/27/2023 FINDINGS: 2 views of the chest were performed. A left subclavian catheter is present with its tip in the superior vena cava. Mild chronic changes are present in the lung bases bilaterally. The heart size is normal. The mediastinum is within normal limits. There is no acute cardiopulmonary process. There are no pleural effusions. There is no pneumothorax. The bony thorax appears intact. IMPRESSION: Mild chronic changes in both lungs, no acute process identified. Reviewed, Interpreted and Dictated by Bill Thomas MD Transcribed by Nahomi Hunter Authenticated and . [facility]
[2023-07-27 12:00] VITALS: BP 159/88; PULSE 62; RESP 16; O2SAT 98
--- NOTE | 2023-07-27 12:00 | HMH.EDGENADL ---
Discharge Plan Disposition Patient Disposition: Home, Self-Care Condition: Good Prescriptions Prescriptions: New ondansetron 4 mg tablet,disintegrating 4 mg PO Q8H PRN (Reason: nausea and vomiting) 5 Days Qty: 12 0RF No Action fluoxetine 40 mg capsule 40 mg PO DAILY Qty: 30 2RF gabapentin 300 mg capsule 300 mg PO TID Qty: 90 1RF tramadol 50 mg tablet 50 mg PO BID Qty: 60 2RF hydrocodone-acetaminophen 7.5-325 mg tablet 1 tab PO QID Qty: 120 0RF clonazepam [Klonopin] 0.5 mg tablet 0.5 mg PO TID Qty: 90 1RF aspirin 81 mg tablet,delayed release (DR/EC) 81 mg PO DAILY Qty: 100 3RF Rx Instructions: TAKE ONE TABLET BY MOUTH EVERY DAY FOR heart health ondansetron 4 mg tablet,disintegrating 4 mg PO Q8H PRN (Reason: nausea and vomiting) Qty: 30 0RF alendronate 70 mg tablet See Rx Instructions .ROUTE .COMPLEX Rx Instructions: TAKE ONE TABLET BY MOUTH ONCE a WEEK pantoprazole 40 mg tablet,delayed release (DR/EC) See Rx Instructions .ROUTE .COMPLEX Rx Instructions: TAKE ONE TABLET BY MOUTH EVERY DAY lisinopril 10 mg tablet 10 mg PO DAILY metoprolol succinate 25 mg tablet extended release 24 hr See Rx Instructions .ROUTE .COMPLEX Rx Instructions: TAKE ONE TABLET BY MOUTH EVERY DAY albuterol sulfate [ProAir HFA] 90 mcg/actuation HFA aerosol inhaler See Rx Instructions .ROUTE .COMPLEX Rx Instructions: INHALE TWO PUFFS BY MOUTH EVERY 4-6 HOURS NEEDED FOR bronchospasms spironolactone 25 mg tablet See Rx Instructions .ROUTE .COMPLEX Rx Instructions: TAKE ONE TABLET BY MOUTH TWICE DAILY mirtazapine [Remeron] 15 mg tablet 15 mg PO QHS loratadine 10 mg tablet See Rx Instructions .ROUTE .COMPLEX Rx Instructions: TAKE ONE TABLET BY MOUTH EVERY DAY loperamide 2 mg capsule 2 mg PO Q6H PRN (Reason: loose stool) 5 Days Qty: 20 0RF Rx Instructions: Please take 4 mg initially, followed by 2 mg after each loose stool, maximum 16 mg/day benzonatate [benzonatate] 100 mg capsule 100 mg PO TIDP PRN (Reason: Cough) Qty: 30 0RF azithromycin [Zithromax] 250 mg tablet 250 mg PO UD DOSE PK Qty: 6 0RF Rx Instructions: Take two (2) tablets today, then one (1) tablet days #2 thru #5 Referrals Follow up/Referrals: Librado Gilmore DO [Primary Care Provider] - See instructions Activity Restrictions/Add. Instructions Additional Instructions/Restrictions: You were evaluated in the emergency department today. Please sisal picker your prescription for Zofran and take as needed for nausea and vomiting. Make sure that you are staying hydrated. Follow-up with your primary care provider over the next week for reassessment. Return to the emergency department for new or worsening symptoms. Clinical Impressions Clinical Impression: Viral URI with cough Instructions Patient Instructions: DI for Viral Gastroenteritis -- Adult, DI for Viral Syndrome Discharge ED Provider: Luisana Bergman General Adult HPI General Chief complaint: Weakness Stated complaint: postive for covid and soa Time Seen by Provider: 07/27/23 11:37 History of Present Illness HPI narrative: This patient is a 67-year-old female with a history of chronic diarrhea, hypertension, and Crohn's disease presenting to the emergency department for evaluation because she does not feel well. Patient reports that she was seen at the urgent treatment center approximately 1 week ago and diagnosed with COVID. This was on 07/19/2023 on medical record review. She states since then, she has not been doing any better. She states that she has had fevers at night, cough, congestion, dyspnea on exertion, nausea, and diarrhea with loose watery stools. She states that she is taking antidiarrheal at home, but no other medications for symptomatic improvement. No other concerns noted at this time. Related Data Home Medications Medication
--- NOTE | 2023-07-27 12:08 | PC.NURSE ---
attempted to access port, unable to at this time, infusion nurse coming to attempt access
--- NOTE | 2023-07-27 12:11 | ECG_ITS ---
APPROVED REPORT Exam: Resting ECG HR:60 bpm ECG Measurements Heart Rate 60 AXES QRSd 89 QRS 15 QT 425 T 45 QTc 427 Conclusion SUPRAVENTRICULAR RHYTHM NONSPECIFIC T-WAVE ABNORMALITY ABNORMAL RHYTHM ECG Marked artifact limits interpretation UNCONFIRMED REPORT Electronically signed by : Colin Durant MD 07/28/2023 14:48:20
[2023-07-27 12:14] VITALS: BP 150/97; PULSE 89; RESP 20; TEMP 36.8; O2SAT 95; BMI 29.5
[2023-07-27 12:30] VITALS: BP 143/89; PULSE 72; RESP 16; O2SAT 98
[2023-07-27 12:40] LABS: Basophils % 0.4 % (0.1-2.0); Eosinophils # 0.1 K/mm3 (0.0-0.4); Eosinophils % 1.5 % (0.1-12.0); Hematocrit 34.5 % (37.0-47.0); Hemoglobin 11.4 g/dL (12.2-16.2); Lymphocytes # 1.9 K/mm3 (0.7-4.5); Lymphocytes % 34.2 % (10-50); Mean Corpuscular HGB Conc 32.9 g/dL (31.8-35.4); Mean Corpuscular Hemoglobin 28.8 pg (27.0-31.2); Mean Corpuscular Volume 87.5 fl (81-99); Monocytes # 0.3 K/mm3 (0.1-1.0); Monocytes % 4.7 % (1.7-9.3); Neutrophils # 3.3 K/mm3 (1.8-7.8); Neutrophils % 59.3 % (37.0-80.0); Platelet Count 299 K/mm3 (142-424); Red Blood Count 3.95 M/mm3 (4.20-5.40); Red Cell Distribution Width 15.8 % (11.5-17.5); White Blood Count 5.5 K/mm3 (4.8-10.8)
[2023-07-27 12:47] LABS: Chloride 107 mmol/L (98-107); Potassium 3.4 mmoL/L (3.5-5.1); Sodium 138 mmol/L (136-145)
[2023-07-27 12:49] LABS: Blood Urea Nitrogen 14 mg/dl (7-17); Creatinine Clearance Estimated 67 mL/min (50-200); Estimated Glomerular Filt Rate 72 ml/min (>60); GFR (African American) 87 ML/MIN (>60)
[2023-07-27 12:50] LABS: Alanine Aminotransferase 32 U/L (12-78); Albumin Level 4.3 g/dl (3.5-5.0); Albumin/Globulin Ratio 1.5 (1.1-1.8); Alkaline Phosphatase 70 U/L (38-126); Anion Gap 7.4 mEq/L (5-15); Aspartate Amino Transferase 48 U/L (14-36); Bilirubin,Total 0.6 mg/dl (0.2-1.3); Calcium 8.7 mg/dl (8.4-10.2); Carbon Dioxide 27 mmol/L (22.0-30.0); Globulin 2.9 g/dL (1.3-3.2); Glucose 94 mg/dl (74-100); Lipase 80 U/L (23-300); Magnesium 1.7 mg/dl (1.6-2.3); Total Protein,Serum 7.2 g/dl (6.3-8.2)
[2023-07-27 13:00] VITALS: BP 158/80; PULSE 56; RESP 16; O2SAT 98
--- NOTE | 2023-07-27 13:01 | PC.NURSE ---
Assumed care of patient at this time
[2023-07-27 13:07] LABS: T4 (Thyroxine) 13.6 ug/dl (5.53-11.0)
--- NOTE | 2023-07-27 13:07 | PC.NURSE ---
Rounded on patient; warm blankets provided and lights dimmed for comfort. Call light within reach of patient
[2023-07-27 13:20] LABS: Thyroid Stimulating Hormone 0.17 uIU/mL (0.465-4.68)
[2023-07-27 13:30] VITALS: BP 139/83; PULSE 57; RESP 16; O2SAT 97
[2023-07-27 13:41] VITALS: BP 139/83; PULSE 60; RESP 16; TEMP 36.8; O2SAT 96
== END 2023-07-27 13:49 | disposition home or self-care (01) ==
PROVIDERS: Emergency Provider Emergency Medicine; PCP Internal Medicine
DX: J06.9 Acute upper respiratory infection, unspecified (principal); R05.9 Cough, unspecified; K50.918 Crohn's disease, unspecified, with other complication; R11.0 Nausea; R19.7 Diarrhea, unspecified; I10 Essential (primary) hypertension; Z87.891 Personal history of nicotine dependence
CPT/HCPCS: 71046; 80053; 83690; 83735; 84436; 84443; 85025; 93005; 96361; 96374; 96375; 99285; J0131; J2405

== ENCOUNTER 2023-08-03 09:50 | Emergency (ER) | payer MEDICARE, OTHER, SELFPAY ==
--- NOTE | 2023-08-03 10:04 | XR_ITS ---
FINAL REPORT TECHNIQUE: Chest PA & Lateral CLINICAL HISTORY: cough COMPARISON: 07/27/2023 FINDINGS: 2 views of the chest were performed. Mild cardiomegaly is present. The mediastinum is within normal limits. There is no acute cardiopulmonary process. Chronic changes are present in the lung lopez bilaterally. A left subclavian port remains present with its tip in the superior vena cava. There are no pleural effusions. There is no pneumothorax. The bony thorax appears intact. IMPRESSION: No acute cardiopulmonary process. Mild cardiomegaly and chronic changes in the lung lopez remain present and unchanged. Reviewed, Interpreted and Dictated by Bill Thomas MD Transcribed by Nahomi Hunter Authenticated and [facility]
[2023-08-03 11:10] VITALS: BP 137/48; PULSE 63; RESP 22; TEMP 36.8; O2SAT 95; BMI 29.5
--- NOTE | 2023-08-03 11:15 | EXP.UTC ---
Discharge Plan Disposition Patient Disposition: Home, Self-Care Condition: Good Prescriptions Prescriptions: New azithromycin [Zithromax] 250 mg tablet 250 mg PO UD DOSE PK Qty: 6 0RF Rx Instructions: Take two (2) tablets today, then one (1) tablet days #2 thru #5 benzonatate [benzonatate] 100 mg capsule 100 mg PO TIDP PRN (Reason: Cough) Qty: 30 0RF amoxicillin [amoxicillin] 875 mg tablet 875 mg PO Q12H Qty: 20 0RF No Action fluoxetine 40 mg capsule 40 mg PO DAILY Qty: 30 2RF gabapentin 300 mg capsule 300 mg PO TID Qty: 90 1RF tramadol 50 mg tablet 50 mg PO BID Qty: 60 2RF hydrocodone-acetaminophen 7.5-325 mg tablet 1 tab PO QID Qty: 120 0RF clonazepam [Klonopin] 0.5 mg tablet 0.5 mg PO TID Qty: 90 1RF aspirin 81 mg tablet,delayed release (DR/EC) 81 mg PO DAILY Qty: 100 3RF Rx Instructions: TAKE ONE TABLET BY MOUTH EVERY DAY FOR heart health ondansetron 4 mg tablet,disintegrating 4 mg PO Q8H PRN (Reason: nausea and vomiting) Qty: 30 0RF alendronate 70 mg tablet See Rx Instructions .ROUTE .COMPLEX Rx Instructions: TAKE ONE TABLET BY MOUTH ONCE a WEEK pantoprazole 40 mg tablet,delayed release (DR/EC) See Rx Instructions .ROUTE .COMPLEX Rx Instructions: TAKE ONE TABLET BY MOUTH EVERY DAY lisinopril 10 mg tablet 10 mg PO DAILY metoprolol succinate 25 mg tablet extended release 24 hr See Rx Instructions .ROUTE .COMPLEX Rx Instructions: TAKE ONE TABLET BY MOUTH EVERY DAY albuterol sulfate [ProAir HFA] 90 mcg/actuation HFA aerosol inhaler See Rx Instructions .ROUTE .COMPLEX Rx Instructions: INHALE TWO PUFFS BY MOUTH EVERY 4-6 HOURS NEEDED FOR bronchospasms spironolactone 25 mg tablet See Rx Instructions .ROUTE .COMPLEX Rx Instructions: TAKE ONE TABLET BY MOUTH TWICE DAILY mirtazapine [Remeron] 15 mg tablet 15 mg PO QHS loratadine 10 mg tablet See Rx Instructions .ROUTE .COMPLEX Rx Instructions: TAKE ONE TABLET BY MOUTH EVERY DAY ondansetron 4 mg tablet,disintegrating 4 mg PO Q8H PRN (Reason: nausea and vomiting) 5 Days Qty: 12 0RF loperamide 2 mg capsule 2 mg PO Q6H PRN (Reason: loose stool) 5 Days Qty: 20 0RF Rx Instructions: Please take 4 mg initially, followed by 2 mg after each loose stool, maximum 16 mg/day benzonatate [benzonatate] 100 mg capsule 100 mg PO TIDP PRN (Reason: Cough) Qty: 30 0RF azithromycin [Zithromax] 250 mg tablet 250 mg PO UD DOSE PK Qty: 6 0RF Rx Instructions: Take two (2) tablets today, then one (1) tablet days #2 thru #5 Referrals Follow up/Referrals: Librado Gilmore DO [Primary Care Provider] - See instructions Activity Restrictions/Add. Instructions Additional Instructions/Restrictions: Drink plenty of fluids. Take tylenol for pain or fever. Take the medications as directed. Follow up with your regular doctor. GO TO THE ER FOR ANY WORSENING SYMPTOMS Clinical Impressions Clinical Impression: Acute viral syndrome, Sinusitis Discharge ED Provider: Papo Bunn [facility] HPI General Stated complaint: Congestion, Weakness, body aches, cough SOA Time Seen by Provider: 08/03/23 11:15 History of Present Illness Provider Complaint: She states that she continues to have sinus congestion and a cough. She is having nausea from the drainage too. She was diagnosed with covid-19 on 07/19. She states that she felt better after having that, but she has never got completely better. Related Data Home Medications Medication Instructions Recorded Confirmed albuterol sulfate 90 mcg/actuation See Rx Instructions .Route 05/15/23 07/18/23 aerosol inhaler (ProAir HFA) .COMPLEX . alendronate 70 mg tablet See Rx Instructions .Route 05/15/23 07/18/23 .COMPLEX osteo lisinopril 10 mg tablet 10 mg PO DAILY . 05/15/23 07/18/23 loratadine 10 mg tablet See Rx Instructions .Route 05/15/23 12
[2023-08-03 12:05] VITALS: BP 137/48; PULSE 63; RESP 22; TEMP 36.8; O2SAT 95
[2023-08-03 12:12] LABS: Adenovirus,PCR Not Detected (NotDetected); Coronavirus 19, PCR Not Detected (NotDetected); Coronavirus 229E Not Detected (NotDetected); Coronavirus NL63 Not Detected (NotDetected); Coronavirus OC43 Not Detected (NotDetected); Coronovirus HKU1,PCR Not Detected (NotDetected); Human Metapneumovirus Not Detected (NotDetected); Influenza A, PCR Not Detected (NotDetected); Influenza AH1, 2009 Not Detected (NotDetected); Influenza AH1, PCR Not Detected (NotDetected); Influenza AH3,PCR Not Detected (NotDetected); Influenza B, PCR Not Detected (NotDetected); Parainfluenza 1, PCR Not Detected (NotDetected); Parainfluenza 2, PCR Not Detected (NotDetected); Parainfluenza 3, PCR Not Detected (NotDetected); Parainfluenza 4, PCR Not Detected (NotDetected); Respiratory Syncytial Virus Not Detected (NotDetected); Rhinovirus/Enterovirus Not Detected (NotDetected)
== END 2023-08-03 12:07 | disposition home or self-care (01) ==
PROVIDERS: Emergency Provider Nurse Practitioner Family; PCP Internal Medicine
DX: J01.90 Acute sinusitis, unspecified (principal); R06.02 Shortness of breath; R05.9 Cough, unspecified; R09.81 Nasal congestion; R09.82 Postnasal drip; R11.0 Nausea; R53.1 Weakness; M79.18 Myalgia, other site; B34.9 Viral infection, unspecified; I10 Essential (primary) hypertension
CPT/HCPCS: 71046; 87632; 87635; 99212; 99214; G0463

== ENCOUNTER → 2023-08-09 07:53 | Outpatient (CLI) | payer MEDICARE, OTHER, SELFPAY ==
--- NOTE | 2023-08-09 07:54 | FL_ITS ---
FINAL REPORT CLINICAL HISTORY: dysphasia, ft 3:21 dap 1932.73 FINDINGS: UPPER GI EXAM HISTORY: Dysphagia. PROCEDURE: The patient ingested barium. Effervescent crystals were also administered. Spot and overhead films were obtained. Fluoro time: 33 minutes 21 seconds DAP: 1932.73 uGy.m2 24 images were obtained. FINDINGS: No esophageal stricture is identified. There is a small sliding-type hiatal hernia. 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 A 13 mm barium tablet passes through the esophagus without delay. No gastroesophageal reflux was demonstrated during the exam. IMPRESSION: Small sliding-type hiatal hernia without gastroesophageal reflux. Esophageal dysmotility. 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 Clinical correlation recommended. Films reviewed , interpreted and dictated by Dr. Thomas. Transcribed by Bowen Trujillo PA-C. Reviewed, Interpreted and Dictated by Bill Thomas MD Transcribed by AUGUSTINE Webb Authenticated and [facility]
[2023-08-09] MEDS: BARIUM SULFATE(LIQUID E-Z-PAQUE);355ML BOTTLE 355 ML PO (08:16)
[2023-08-09] MEDS: E-Z-GASII EFFERVESCENT GRANULES;1PK 1 EACH PO (08:16)
[2023-08-09] MEDS: BARIUM SULFATE (E-Z-HD 340GM);135ML BOTTLE 135 ML PO (08:16)
[2023-08-09 20:43] LABS: Amphetamine/Metha Screen,Urine Negative ng/ml (<1000); Benzodiazepines Screen,Urine Positive ng/ml (<200)
[2023-08-09 20:44] LABS: Barbiturates Screen,Urine Negative ng/ml (<200); Cannabinoid Screen,Urine Negative ng/ml (<50)
[2023-08-09 20:45] LABS: Cocaine Screen,Urine Negative ng/ml (<300)
[2023-08-09 20:46] LABS: Methadone Screen,Urine Negative ng/ml (<300); Opiate Screen,Urine Positive ng/ml (<300)
[2023-08-09 20:48] LABS: Phencyclidine Screen,Urine Negative ng/ml (<25)
[2023-08-09 20:58] LABS: Microalbumin/Creatinine Ratio 4.7
[2023-08-09 21:01] LABS: Creatinine,Urine Random 256 mg/dL (Not Estab.)
== END ==
PROVIDERS: PCP Internal Medicine; Visit Provider Surgery
DX: K44.9 Diaphragmatic hernia without obstruction or gangrene (principal); R93.3 Abnormal findings on diagnostic imaging of other parts of digestive tract; E78.5 Hyperlipidemia, unspecified; E87.6 Hypokalemia; T17.320A Food in larynx causing asphyxiation, initial encounter; W44.F3XA Food entering into or through a natural orifice, initial encounter; R47.02 Dysphasia
CPT/HCPCS: 74246; 80305; 82043; 82570

== ENCOUNTER 2023-08-09 15:00 | Outpatient (CLI) | payer OTHER, SELFPAY ==
[2023-08-09] MEDS: SODIUM CHLORIDE 0.9% 10ML FLUSH SYRINGE 10 ML IV (15:19)
== END 2023-08-09 15:20 | disposition home or self-care (01) ==
LOC: LAB 15:01 → INF 15:03
PROVIDERS: PCP Internal Medicine; Visit Provider Internal Medicine
DX: Z45.2 Encounter for adjustment and management of vascular access device (principal)
CPT/HCPCS: 36591; J1642

== ENCOUNTER 2023-08-18 11:04 | Day surgery (SDC) | payer MEDICARE, OTHER, SELFPAY ==
[2023-08-16 10:16] VITALS: BMI 27.8
[2023-08-18] VITALS (7 sets, daily range): BP systolic 124–188; BP diastolic 71–86; PULSE 59–67; RESP 14–18; TEMP 36.6–37; O2SAT 94–99
[2023-08-18] MEDS: LACTATED RINGERS 1000ML 1,000 ML 25 ML IV (12:49)
--- NOTE | 2023-08-18 12:55 | SUR.PREOP ---
Accessed L chest power port without difficulty using sterile technique. Great blood return with easy flush. 20G x 0.75in safestep patel needle used.
--- NOTE | 2023-08-18 13:16 | P.PNANES_ITS ---
[facility] Disclaimer: The information contained in this section may have been updated after the patient was seen, as this information can be updated by other users. Medical History Allergies Anxiety Bilateral lower extremity edema Chest pain Cholecystectomy planned Depression Dyspnea Edema History of anemia HTN (hypertension) Hx of Crohn's disease Insomnia Knee effusion, right Osteoporosis Pneumonia Positive D dimer Sinus bradycardia Urinary tract infection Surgical History H/O oral surgery H/O total hysterectomy History of appendectomy History of arthroscopy of right knee History of esophagogastroduodenoscopy (EGD) History of intestinal surgery Family History Other Cancer Heart attack Social History Smoking Status: Former smoker second hand exposure: No alcohol intake: never substance use type: denies use current occupational status: disabled Travel in the last 8 weeks: None household members: none housing: apartment number of children: 2 current occupational exposures/hazards: No caffeine: Yes [facility] Anesthesia Checklist Patient Identification Patient Identification: Arm Band Structural Data Admitted From: Home Planned Operative Procedure/s: EGD Consent for Planned Operative Procedure(s) Verified: Yes Verified Documents: Surgical Consent and History and Physical NPO Status Verified Time NPO: 00:00 Additional verifications Anesthesia Reactions: No Hx Blood Transfusions: Yes Blood Transfusion Reaction: No Airway Assessment Mallampati Score:: Class II C-Spine Mobility Assessed: Yes TMJ Mobility Assessed: Yes Dentition: Edentulous Neurological Assessment Level of Consciousness: Awake and Alert Anesthesia Plan Anesthesia Risk discussed: Yes Anesthesia Plan: Verified ASA Class: III Anesthesia Type: MAC
--- NOTE | 2023-08-18 14:07 | P.PCN_ITS ---
Procedure: Date: 08/18/23 Patient Date of :: 1955 Procedure Performed:: EGD with biopsy Indications:: Patient is a 67-year-old female with multiple drug allergies referred by Dr. Fong for EGD. I had seen her about 1 year ago as a referral for endoscopy. She previously has undergone procedure by Dr. Vizcarra which sounds like an ERCP. I had seen her a year ago for possible upper endoscopy and at that time she was having some dysphagia type symptoms and sensation of choking with associated hiccups with nausea and some vomiting with associated epigastric discomfort and bloating. Apparently patient has reported history of Crohn's disease and in remission. Dr. Vizcarra had performed EGD on 11/30/2018 due to symptoms of midepigastric abdominal pain, nausea, bloating, early satiety, and hiccups. 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 Pathology revealed reactive gastropathy. Patient has reported history of irritable bowel syndrome. She did have an upper GI performed on 05/09/2022 which revealed small to moderate hiatal hernia with gastroesophageal reflux, feline esophagus, esopha geal dysmotility. I had planned for endoscopy at that time but felt that she may need gastroenterology evaluation. Patient was seen in her primary care provider's office. She described trouble swallowing. She describes postprandial epigastric pain, choking sensation. Plan was to proceed with scheduling upper endoscopy with possible dilatation. It was felt that she likely will need gastroenterology input however. I did obtain a repeat upper GI series which reveals small sliding-type hiatal hernia without gastroesophageal reflux. Esophageal dysmotility. 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 Performing Provider:: Luis Alberto Norris MD Referring Provider:: Librado Landry Sedation:: MAC sedation Procedure:: Patient history was obtained and appropriate physical examination was performed. Patient's medications and allergies were reviewed. Informed consent was obtained after explaining the benefits, alternatives, and risks of the procedure including, but not limited to, bleeding, perforation, missed lesions, and adverse reaction to anesthesia medications. Patient was transported to endoscopy procedure room. Patient was connected to monitoring devices. Throughout the procedure the patient's blood pressure, pulse, and oxygen saturations were monitored continuously. Patient identification and planned procedure were verified by the staff. Patient was positioned in lateral decubitus position. Olympus endoscope was inserted via the oropharynx. She has some minor cricopharyngeal spasm. There was some tortuosity to the esophagus consistent with esophageal dysmotility. There is no evidence of any appreciable esophagitis. There is minor spasm of the distal esophagus. Gastroesophageal junction was encountered at 35 cm. Stomach was cannulated and insufflated. Retroflexion revealed small sliding hiatal hernia. There is some diffuse minor gastropathy. Pylorus was traversed. Duodenum appeared normal. Gastric antral mucosal biopsy was obtained. Distal esophageal biopsy was obtained. Stomach was desufflated and the endoscope was withdrawn. . Findings:: Findings consistent with esophageal dysmotility Mild cricopharyngeal spasm Small hiatal hernia Nonerosive diffuse gastropathy Recommendations:: Treat H. pylori if positive. Appears to be mostly functional dysphagia. May benefit from gastroenterology input. Complications:: None immediately apparent Estimated blood obtained (mL): 1 Colonoscopy Component Colonoscopy Component Was a colonoscopy performed during today's procedure?: No
--- NOTE | 2023-08-18 14:44 | EXP.ANES.I ---
[facility] Anesthesia Record Part I Anesthesia Record I Intake, IV Amount: 300 Hydration: Adequate Estimated blood loss (mL): 1 Urine output (mL): 0 Blood Products used (#): none Blood Pressure: 124/71 SaO2: 94 Pulse Rate: 67 Airway Patency: Patent Respiratory Rate: 16 Temperature: 98 F Patient is:: Awake (Talking), Drowsy and Stable Stable to PACU at:: 14:44
== END 2023-08-18 15:15 | disposition home or self-care (01) ==
PROVIDERS: PCP Internal Medicine; Visit Provider Surgery
PROC: 0DJ08ZZ Inspection of Upper Intestinal Tract, Via Natural or Artificial Opening Endoscopic (ICD-10-PCS; CPT 43239; principal; 2023-08-18 12:30)
DX: K22.4 Dyskinesia of esophagus (principal); K44.9 Diaphragmatic hernia without obstruction or gangrene; J39.2 Other diseases of pharynx; K31.89 Other diseases of stomach and duodenum
CPT/HCPCS: 43239; J1642

== ENCOUNTER 2023-08-31 10:51 | Emergency (ER) | payer MEDICARE, OTHER, SELFPAY ==
[2023-08-31 10:53] VITALS: BP 112/71; PULSE 65; RESP 18; TEMP 36.5; O2SAT 98; BMI 27.4
--- NOTE | 2023-08-31 10:54 | HMH.EDGENADL ---
Discharge Plan Disposition Patient Disposition: Home, Self-Care Condition: Fair Prescriptions Prescriptions: New sucralfate [Carafate] 1 gram tablet 1 g PO BID 56 Days Qty: 112 0RF No Action fluoxetine 40 mg capsule 40 mg PO DAILY Qty: 30 2RF potassium chloride 10 mEq capsule, extended release 10 meq PO DAILY 30 Days Qty: 30 2RF clonazepam [Klonopin] 0.5 mg tablet 0.5 mg PO TID Qty: 90 1RF hydrocodone-acetaminophen 7.5-325 mg tablet 1 tab PO QID Qty: 120 0RF aspirin 81 mg tablet,delayed release (DR/EC) 81 mg PO DAILY Qty: 100 3RF Rx Instructions: TAKE ONE TABLET BY MOUTH EVERY DAY FOR heart health ondansetron 4 mg tablet,disintegrating 4 mg PO Q8H PRN (Reason: nausea and vomiting) Qty: 30 0RF alendronate 70 mg tablet See Rx Instructions .ROUTE .COMPLEX Rx Instructions: TAKE ONE TABLET BY MOUTH ONCE a WEEK pantoprazole 40 mg tablet,delayed release (DR/EC) See Rx Instructions .ROUTE .COMPLEX Rx Instructions: TAKE ONE TABLET BY MOUTH EVERY DAY lisinopril 10 mg tablet 10 mg PO DAILY metoprolol succinate 25 mg tablet extended release 24 hr See Rx Instructions .ROUTE .COMPLEX Rx Instructions: TAKE ONE TABLET BY MOUTH EVERY DAY albuterol sulfate [ProAir HFA] 90 mcg/actuation HFA aerosol inhaler See Rx Instructions .ROUTE .COMPLEX Rx Instructions: INHALE TWO PUFFS BY MOUTH EVERY 4-6 HOURS NEEDED FOR bronchospasms spironolactone 25 mg tablet See Rx Instructions .ROUTE .COMPLEX Rx Instructions: TAKE ONE TABLET BY MOUTH TWICE DAILY mirtazapine [Remeron] 15 mg tablet 15 mg PO QHS loratadine 10 mg tablet See Rx Instructions .ROUTE .COMPLEX Rx Instructions: TAKE ONE TABLET BY MOUTH EVERY DAY ondansetron 4 mg tablet,disintegrating 4 mg PO Q8H PRN (Reason: nausea and vomiting) 5 Days Qty: 12 0RF loperamide 2 mg capsule 2 mg PO Q6H PRN (Reason: loose stool) 5 Days Qty: 20 0RF Rx Instructions: Please take 4 mg initially, followed by 2 mg after each loose stool, maximum 16 mg/day amoxicillin [amoxicillin] 875 mg tablet 875 mg PO Q12H Qty: 20 0RF Referrals Follow up/Referrals: Peppin,Librado F, DO [Primary Care Provider] - See instructions Activity Restrictions/Add. Instructions Additional Instructions/Restrictions: I would recommend you hold your medication called metoprolol as it has caused your heart rate to be low while in the emergency department. Please follow-up closely with your PCP. Thankfully your blood pressure is not low with your heart rate being low but that can make you feel worn out. I have prescribed you medications to try to help with your abdominal pain. Please return with any new or worsening symptoms. Clinical Impressions Clinical Impression: Gastritis, Asymptomatic bradycardia Instructions Patient Instructions: DI for Acute Abdominal Pain Discharge ED Provider: Fausto Angeles General Adult HPI General Chief complaint: Abdominal Pain Stated complaint: losing blood from procedure Time Seen by Provider: 08/31/23 10:54 History of Present Illness HPI narrative: Patient presents with epigastric pain that has been intermittent in nature with associated decreased p.o. intake, nausea, no vomiting, this occurred after recent endoscopy. She states she occasionally feels blood in the back of her throat. She has not had any overt hemoptysis. Denies any chest pain. No exacerbating or alleviating factors. She does note a reported fever yesterday evening with Tmax of 101 ?F. She has had no syncope or presyncope. She has been having normal bowel movements. She has been taking home opiate analgesia with limited utility. Symptoms were gradual in onset, have been intermittent, and are gradually worsening in course. Denies any dysuria or frequency. Related Data Home Medications Medication Instructions Recorded Confirmed albuterol sulfate 90 mcg/
[2023-08-31 11:02] VITALS: BP 109/52; PULSE 65; RESP 20; O2SAT 99
--- NOTE | 2023-08-31 11:12 | PC.NURSE ---
Dr. Angeles at [facility] for pt eval
--- NOTE | 2023-08-31 11:21 | CT_ITS ---
FINAL REPORT TECHNIQUE: Pre-and postcontrast images of the abdomen were performed by computed tomography. Extensive 3-D reconstruction images were performed. A CTA was performed. This study was performed with techniques to keep radiation doses as low as reasonably achievable (ALARA). Individualized dose reduction techniques using automated exposure control or adjustment of mA and/or kV according to the patient's size were employed. CLINICAL HISTORY: recent endoscopy, chest and epigastric pain, COMPARISON: 07/02/2023 FINDINGS: ABDOMEN AND PELVIS: The lung bases are clear. The gallbladder has been surgically resected. There is mild biliary ductal dilatation in the liver, favor post cholecystectomy change. Precontrast images demonstrate no evidence of nephrolithiasis. No adrenal masses are identified. The spleen and pancreas are unremarkable. The appendix is not well-visualized on this examination. The uterus has been surgically resected. No mass, adenopathy, or free fluid is identified. CTA: The abdominal aorta is proper caliber. The SMA, celiac axis, and VAHID are patent. There is no significant stenosis or calcification. The renal arteries are patent bilaterally. The common, internal, and external iliac arteries are patent without evidence of significant stenosis. IMPRESSION: No significant vascular abnormality identified in the abdomen or pelvis. Prior cholecystectomy and hysterectomy. Mild biliary ductal dilatation of the liver, favor post cholecystectomy change. Reviewed, Interpreted and Dictated by Luis Alberto Redd III, MD Transcribed by Nahomi Hunter Authenticated and [facility]
--- NOTE | 2023-08-31 11:21 | CT_ITS ---
FINAL REPORT TECHNIQUE: Then section axial CT images of the chest were obtained with contrast. Three-D reformatted images were also obtained.This study was performed with techniques to keep radiation doses as low as reasonably achievable (ALARA). Individualized dose reduction techniques using automated exposure control or adjustment of mA and/or kV according to the patient's size were employed. CLINICAL HISTORY: recent endoscopy, chest and epigastric pain COMPARISON: 06/30/2023 FINDINGS: A left subclavian port is present. There is no evidence of pulmonary embolism. There is no evidence of thoracic aortic aneurysm or dissection. There is no evidence of mediastinal or hilar mass or adenopathy. There is no evidence of pulmonary mass or suspicious nodule. There is mild dependent atelectasis seen bilaterally. Limited images of the upper abdomen are unremarkable. IMPRESSION: No evidence of pulmonary embolism. No mass or localized inflammatory process. Reviewed, Interpreted and Dictated by Luis Alberto Redd III, MD Transcribed by Nahomi Hunter Authenticated and [facility]
--- NOTE | 2023-08-31 11:33 | ECG_ITS ---
APPROVED REPORT Exam: Resting ECG HR:51 bpm ECG Measurements Heart Rate 51 AXES MT 209 P 54 QRSd 97 QRS 14 QT 469 T 44 QTc 445 Conclusion SINUS BRADYCARDIA BORDERLINE ECG UNCONFIRMED REPORT Electronically signed by : Colin Durant MD 08/31/2023 21:24:46
[2023-08-31 11:38] LABS: Basophils % 0.5 % (0.1-2.0); Chloride 111 mmol/L (98-107); Eosinophils # 0.2 K/mm3 (0.0-0.4); Eosinophils % 3.7 % (0.1-12.0); Hematocrit 33.4 % (37.0-47.0); Hemoglobin 10.9 g/dL (12.2-16.2); Lymphocytes % 32.2 % (10-50); Mean Corpuscular HGB Conc 32.5 g/dL (31.8-35.4); Mean Corpuscular Hemoglobin 28.4 pg (27.0-31.2); Mean Corpuscular Volume 87.3 fl (81-99); Mean Platelet Volume 11.6 fl (7.4-10.4); Monocytes # 0.3 K/mm3 (0.1-1.0); Neutrophils # 3.7 K/mm3 (1.8-7.8); Neutrophils % 58.6 % (37.0-80.0); Platelet Count 287 K/mm3 (142-424); Red Blood Count 3.83 M/mm3 (4.20-5.40); Red Cell Distribution Width 15.9 % (11.5-17.5); Sodium 144 mmol/L (136-145); White Blood Count 6.3 K/mm3 (4.8-10.8)
[2023-08-31 11:39] LABS: Potassium 3.3 mmoL/L (3.5-5.1)
[2023-08-31 11:41] LABS: Alanine Aminotransferase 25 U/L (12-78); Alkaline Phosphatase 49 U/L (38-126); Anion Gap 10.3 mEq/L (5-15); Aspartate Amino Transferase 32 U/L (14-36); Bilirubin,Total 0.6 mg/dl (0.2-1.3); Blood Urea Nitrogen 13 mg/dl (7-17); Calcium 8.7 mg/dl (8.4-10.2); Carbon Dioxide 26 mmol/L (22.0-30.0); Creatinine Clearance Estimated 63 mL/min (50-200); Estimated Glomerular Filt Rate 55 ml/min (>60); GFR (African American) 67 ML/MIN (>60); Glucose 126 mg/dl (74-100); Lipase 76 U/L (23-300)
[2023-08-31 11:42] LABS: Albumin Level 4.1 g/dl (3.5-5.0); Albumin/Globulin Ratio 1.5 (1.1-1.8); Globulin 2.8 g/dL (1.3-3.2); Magnesium 1.9 mg/dl (1.6-2.3); Total Protein,Serum 6.9 g/dl (6.3-8.2)
[2023-08-31 11:54] LABS: Troponin I < 0.01 ng/ml (0.00-0.034)
[2023-08-31 12:01] VITALS: BP 91/53; PULSE 45; O2SAT 95
--- NOTE | 2023-08-31 12:20 | PC.NURSE ---
PT TO CT
--- NOTE | 2023-08-31 12:39 | PC.NURSE ---
PT RETURNED FROM CT
[2023-08-31 14:11] LABS: Troponin I < 0.01 ng/ml (0.00-0.034)
[2023-08-31 15:45] VITALS: BP 157/79; PULSE 40; RESP 18; TEMP 37.1; O2SAT 98
== END 2023-08-31 16:12 | disposition home or self-care (01) ==
PROVIDERS: Emergency Provider Emergency Medicine; PCP Internal Medicine
DX: R10.13 Epigastric pain (principal); K29.70 Gastritis, unspecified, without bleeding; R00.1 Bradycardia, unspecified; R11.0 Nausea; I10 Essential (primary) hypertension; K50.90 Crohn's disease, unspecified, without complications
CPT/HCPCS: 71275; 74174; 80053; 83690; 83735; 84484; 85025; 86850; 93005; 96361; 96374; 96375; 96376; 99285; J1642; J2405; Q9967

== ENCOUNTER 2023-09-02 11:34 | Observation (INO) | payer MEDICARE, OTHER, SELFPAY ==
[2023-09-02] VITALS (11 sets, daily range): BP systolic 144–203; BP diastolic 69–110; PULSE 41–74; RESP 17–20; TEMP 36.5–37.1; O2SAT 96–100; BMI 27.9; BMI 29.0
--- NOTE | 2023-09-02 11:42 | HMH.EDGENADL ---
Discharge Plan Disposition Patient Disposition: Admitted Clinical Impressions Clinical Impression: Upper GI bleed Discharge ED Provider: Fausto Angeles General Adult HPI General Chief complaint: Nausea/Vomiting/Diarrhea Stated complaint: abd pain right knee pain Time Seen by Provider: 09/02/23 11:42 History of Present Illness HPI narrative: Patient is a 67-year-old female with multiple comorbidities presenting with severe epigastric abdominal pain. I had evaluated this patient approximately 48 hours ago for similar symptoms. She describes continued epigastric and left upper quadrant abdominal pain, severe, nonradiating, refractory to treatment with home opioid analgesia, PPI, Carafate. She had described to me approximately 48 hours ago during previous ED visit, and again today, sensation of blood in the back of her throat, however notes that it is more marked at this time and she is able to expectorate blood on occasion at this time. She denies any chest pain. She describes associated generalized weakness and had a nonsyncopal fall from standing yesterday onto her right knee, she is previously had surgery on that knee. She has been able to ambulate since. She denies any fevers or chills. She describes compliance with recommendations and medications I had previously prescribed. She returns due to continued symptoms. I had previously evaluated this patient for concern for mesenteric ischemia versus upper GI bleed with no acute findings visualized on imaging, hemoglobin stable to prior. She had been treated with analgesia, PPI, GI cocktail, with some improvement of symptoms. Related Data Home Medications Medication Instructions Recorded Confirmed albuterol sulfate 90 mcg/actuation See Rx Instructions .Route 05/15/23 08/18/23 aerosol inhaler (ProAir HFA) .COMPLEX . alendronate 70 mg tablet See Rx Instructions .Route 05/15/23 08/18/23 .COMPLEX osteo lisinopril 10 mg tablet 10 mg PO DAILY . 05/15/23 08/18/23 loratadine 10 mg tablet See Rx Instructions .Route 05/15/23 08/18/23 .COMPLEX . metoprolol succinate 25 mg See Rx Instructions .Route 05/15/23 08/18/23 tablet,extended release 24 hr .COMPLEX . mirtazapine 15 mg tablet (Remeron) 15 mg PO QHS . 05/15/23 08/18/23 pantoprazole 40 mg tablet,delayed See Rx Instructions .Route 05/15/23 08/18/23 release .COMPLEX gerd spironolactone 25 mg tablet See Rx Instructions .Route 05/15/23 08/18/23 .COMPLEX . Previous Rx's Medication Instructions Recorded aspirin 81 mg tablet,delayed 81 mg PO DAILY heart health #100 09/27/22 release tabs fluoxetine 40 mg capsule 40 mg PO DAILY . #30 caps 05/29/23 loperamide 2 mg capsule 2 mg PO Q6H PRN loose stool 5 days 06/30/23 #20 caps ondansetron 4 mg disintegrating 4 mg PO Q8H PRN nausea and 07/25/23 tablet vomiting #30 tabs ondansetron 4 mg disintegrating 4 mg PO Q8H PRN nausea and 07/27/23 tablet vomiting 5 days #12 tabs amoxicillin 875 mg tablet 875 mg PO Q12H #20 tabs 08/03/23 clonazepam 0.5 mg tablet (Klonopin) 0.5 mg PO TID #90 tabs 08/10/23 hydrocodone 7.5 mg-acetaminophen 1 tab PO QID #120 tabs 08/10/23 325 mg tablet potassium chloride 10 mEq 10 meq PO DAILY 30 days #30 caps 08/10/23 capsule,extended release sucralfate 1 gram tablet (Carafate) 1 g PO BID 8 weeks #112 tabs 08/31/23 Allergies Allergy/AdvReac Type Severity Reaction Status Date / Time cephalexin [From Keflex] Allergy Severe Difficulty Verified 08/18/23 12:35 Breathing prochlorperazine Allergy Severe Swelling Verified 08/18/23 12:35 [PROCHLORPERAZINE] of Lip/Tongue/Throat codeine [CODEINE] Allergy Unknown VOMITING / Verified 08/18/23 12:35 NAUSEA prednisone [PREDNISONE] Allergy Unknown BP ISSUES Verified 08/18/23 12:35 promethazine [From PHENERGAN] Allergy Unknown Unknown Verified 08/31/23 14:14 allergy reaction Iodinated Contrast Media Allergy Unknown Verified 08/31/23 14:14 allergy reaction metoclopramide [
[2023-09-02 12:38] LABS: Appearance,Urine CLEAR (Clear); Bilirubin,Urine Negative (Negative); Blood, Urine Negative (Negative); Color,Urine YELLOW (Yellow); Glucose,Urine (UA) Negative (Negative); Ketones,Urine Negative (Negative); Leukocyte Esterase,Urine Negative (Negative); Microscopic, Urine URINE MICROSCOPIC (MICROSCOPIC); Nitrate,Urine Negative (Negative); Protein,Urine TRACE (Negative); Specific Gravity, Urine >= 1.030 (1.005-1.030); Urobilinogen,Urine 0.2 EU/dl (0.2)
--- NOTE | 2023-09-02 12:59 | XR_ITS ---
PROCEDURE INFORMATION: Exam: XR Right Knee Exam date and time: 09/02/2023 12:57 PM Age: 67 years old Clinical indication: Injury or trauma; Fall; Blunt trauma; Knee; Right; Additional info: Fall, knee pain TECHNIQUE: Imaging protocol: Radiologic exam of the right knee. Views: 3 views. COMPARISON: MR KNEE RT WO CON 04/05/2022 7:58 AM FINDINGS: Bones/joints: No visible fracture or dislocation. There are mild degenerative changes of the knee joint, predominantly involving the medial joint compartment. Soft tissues: Normal. IMPRESSION: No visible fracture or dislocation.
[2023-09-02 13:12] LABS: Basophils % 0.6 % (0.1-2.0); Eosinophils # 0.3 K/mm3 (0.0-0.4); Eosinophils % 5.6 % (0.1-12.0); Hematocrit 30.4 % (37.0-47.0); Hemoglobin 9.6 g/dL (12.2-16.2); Mean Corpuscular HGB Conc 31.6 g/dL (31.8-35.4); Mean Corpuscular Hemoglobin 28.2 pg (27.0-31.2); Mean Corpuscular Volume 89.2 fl (81-99); Mean Platelet Volume 11.1 fl (7.4-10.4); Monocytes # 0.2 K/mm3 (0.1-1.0); Monocytes % 4.1 % (1.7-9.3); Neutrophils # 3.3 K/mm3 (1.8-7.8); Neutrophils % 55.8 % (37.0-80.0); Platelet Count 229 K/mm3 (142-424); White Blood Count 5.9 K/mm3 (4.8-10.8)
[2023-09-02 13:18] LABS: Potassium 3.7 mmoL/L (3.5-5.1); Sodium 141 mmol/L (136-145)
[2023-09-02 13:20] LABS: Alanine Aminotransferase 21 U/L (12-78); Aspartate Amino Transferase 27 U/L (14-36); Blood Urea Nitrogen 11 mg/dl (7-17); Creatinine Clearance Estimated 64 mL/min (50-200); Estimated Glomerular Filt Rate 55 ml/min (>60); GFR (African American) 67 ML/MIN (>60)
[2023-09-02 13:21] LABS: Albumin Level 3.4 g/dl (3.5-5.0); Albumin/Globulin Ratio 1.3 (1.1-1.8); Alkaline Phosphatase 56 U/L (38-126); Bilirubin,Total 0.5 mg/dl (0.2-1.3); Calcium 8.1 mg/dl (8.4-10.2); Carbon Dioxide 26 mmol/L (22.0-30.0); Globulin 2.7 g/dL (1.3-3.2); Glucose 113 mg/dl (74-100); Lipase 58 U/L (23-300); Magnesium 1.8 mg/dl (1.6-2.3); Phosphorous 2.8 mg/dl (2.5-4.5); Total Protein,Serum 6.1 g/dl (6.3-8.2)
[2023-09-02 13:22] LABS: Lactic Acid 1.6 mmol/L (0.7-2.1)
--- NOTE | 2023-09-02 13:23 | ECG_ITS ---
APPROVED REPORT Exam: Resting ECG HR:42 bpm ECG Measurements Heart Rate 42 AXES WA 232 P 47 QRSd 105 QRS 7 QT 460 T 27 QTc 402 Conclusion SINUS BRADYCARDIA WITH FIRST DEGREE AV BLOCK MODERATE VOLTAGE CRITERIA FOR LVH, CONSIDER NORMAL VARIANT [MEETS CRITERIA IN ONE OF: R(aVL), S(V1), R(V5), R(V5/V6)+S(V1)] ABNORMAL ECG UNCONFIRMED REPORT Electronically signed by : Colin Durant MD 09/04/2023 17:32:25
[2023-09-02 13:27] LABS: INR 1.04 (0.9-1.1); Prothrombin Time 11.2 seconds (10.1-12.5)
[2023-09-02 13:52] LABS: Thyroid Stimulating Hormone 0.11 uIU/mL (0.465-4.68)
--- NOTE | 2023-09-02 13:55 | CT_ITS ---
PROCEDURE INFORMATION: Exam: CT Abdomen And Pelvis With Contrast Exam date and time: 09/02/2023 2:12 PM Age: 67 years old Clinical indication: Abdominal pain; Patient HX: HX of recent biopsy from abdomen and hernia; Additional info: Epigastric abdominal pain, hgb drop 1 PT 2d TECHNIQUE: Imaging protocol: Computed tomography of the abdomen and pelvis with contrast. Radiation optimization: All CT scans at this facility use at least one of these dose optimization techniques: automated exposure control; mA and/or kV adjustment per patient size (includes targeted exams where dose is matched to clinical indication); or iterative reconstruction. Contrast material: ISOVUE; Contrast volume: 75 ml; Contrast route: IV; COMPARISON: CT ANGIO ABDOMEN PELVIS 08/31/2023 12:32 PM FINDINGS: Lungs: Bibasilar subsegmental atelectasis noted. Heart: Cardiomegaly attributable to multi cardiac chamber enlargement. Liver: No focal hepatic lesions. Gallbladder and bile ducts: There has been a cholecystectomy. 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 No main pancreatic ductal dilation. Spleen: No splenomegaly. Adrenal glands: The adrenal glands are normal. Kidneys and ureters: Nephrograms are symmetric. No nephrolithiasis or hydroureteronephrosis on either side. No solid lesions Stomach and bowel: Unremarkable. No obstruction. No mucosal thickening. Appendix: No evidence of appendicitis. Intraperitoneal space: There is no evidence of free intraperitoneal or pelvic fluid. Vasculature: Unremarkable. No abdominal aortic aneurysm. Lymph nodes: No lymphadenopathy. No lymphadenopathy. Urinary bladder: Unremarkable as visualized. Reproductive: Status post hysterectomy. Bones/joints: Unremarkable. No acute fracture. Soft tissues: Unremarkable. IMPRESSION: No acute abnormality in the abdomen or pelvis
--- NOTE | 2023-09-02 14:06 | PC.NURSE ---
XRAY AT BS
[2023-09-02 14:24] LABS: Anion Gap 7.7 mEq/L (5-15); Chloride 111 mmol/L (98-107)
--- NOTE | 2023-09-02 15:49 | PC.NURSE ---
on phone with hospitalist
--- NOTE | 2023-09-02 16:09 | PC.NURSE ---
PT RESTING IN BED NO NEEDS AT THIS TIME, CALL LIGHT AT BS
--- NOTE | 2023-09-02 16:14 | PC.NURSE ---
Report given to DURAN Han on Med Surg.
--- NOTE | 2023-09-02 16:30 | PC.NURSE ---
arrived by w/c from ED
--- NOTE | 2023-09-02 17:41 | EXP.HP ---
History of Present Illness *Admission Date: 09/02/23 *Reason for visit:: Abdominal Pain *History of present illness: Patient is a 67-year-old female with past medical history of peptic ulcer disease, Crohn's disease who presents to the hospital due to abdominal pain. According the patient her pain is epigastric,, 10/10 intensity, radiates to her back. She mentions she has been on painkillers at home which is not helping. She also mentions she has noticed blood alcohol vomiting. She has not been able to hold down the food. Patient otherwise denied chest pain shortness of breath. Patient mentions she recently had EGD performed by general surgery team and she had polyps removed from her stomach. [facility] Disclaimer: The information contained in this section may have been updated after the patient was seen, as this information can be updated by other users. Medical History Allergies Anxiety Bilateral lower extremity edema Chest pain Cholecystectomy planned Depression Dyspnea Edema History of anemia HTN (hypertension) Hx of Crohn's disease Insomnia Knee effusion, right Osteoporosis Pneumonia Positive D dimer Sinus bradycardia Urinary tract infection Surgical History H/O oral surgery H/O total hysterectomy History of appendectomy History of arthroscopy of right knee History of esophagogastroduodenoscopy (EGD) History of intestinal surgery Family History Other Cancer Heart attack Social History Smoking Status: Never smoker second hand exposure: No alcohol intake: never substance use type: denies use current occupational status: disabled Travel in the last 8 weeks: None household members: none housing: apartment number of children: 2 current occupational exposures/hazards: No caffeine: Yes Review of Systems Review of Systems Review of systems (narrative): as per HPI Meds Home Medications and Allergies Home Medications Medication Instructions Recorded Confirmed Type aspirin 81 mg tablet,delayed 81 mg PO DAILY heart health #100 09/27/22 08/18/23 Rx release tabs albuterol sulfate 90 mcg/actuation See Rx Instructions .Route 05/15/23 08/18/23 History aerosol inhaler (ProAir HFA) .COMPLEX . alendronate 70 mg tablet See Rx Instructions .Route 05/15/23 08/18/23 History .COMPLEX osteo lisinopril 10 mg tablet 10 mg PO DAILY . 05/15/23 08/18/23 History loratadine 10 mg tablet See Rx Instructions .Route 05/15/23 08/18/23 History .COMPLEX . metoprolol succinate 25 mg See Rx Instructions .Route 05/15/23 08/18/23 History tablet,extended release 24 hr .COMPLEX . mirtazapine 15 mg tablet (Remeron) 15 mg PO QHS . 05/15/23 08/18/23 History pantoprazole 40 mg tablet,delayed See Rx Instructions .Route 05/15/23 08/18/23 History release .COMPLEX gerd spironolactone 25 mg tablet See Rx Instructions .Route 05/15/23 08/18/23 History .COMPLEX . fluoxetine 40 mg capsule 40 mg PO DAILY . #30 caps 05/29/23 08/18/23 Rx loperamide 2 mg capsule 2 mg PO Q6H PRN loose stool 5 days 06/30/23 08/18/23 Rx #20 caps ondansetron 4 mg disintegrating 4 mg PO Q8H PRN nausea and 07/25/23 08/18/23 Rx tablet vomiting #30 tabs ondansetron 4 mg disintegrating 4 mg PO Q8H PRN nausea and 07/27/23 08/18/23 Rx tablet vomiting 5 days #12 tabs amoxicillin 875 mg tablet 875 mg PO Q12H #20 tabs 08/03/23 08/18/23 Rx clonazepam 0.5 mg tablet (Klonopin) 0.5 mg PO TID #90 tabs 08/10/23 08/18/23 Rx hydrocodone 7.5 mg-acetaminophen 1 tab PO QID #120 tabs 08/10/23 08/18/23 Rx 325 mg tablet potassium chloride 10 mEq 10 meq PO DAILY 30 days #30 caps 08/10/23 08/18/23 Rx capsule,extended release sucralfate 1 gram tablet (Carafate) 1 g PO BID 8 weeks #112 tabs 08/31/23 Rx New Prescri
[2023-09-02 18:21] LABS: Hematocrit 31.2 % (37.0-47.0); Hemoglobin 9.9 g/dL (12.2-16.2)
[2023-09-03] VITALS: BP 115/58; PULSE 42; RESP 17; TEMP 36.6; O2SAT 97
[2023-09-03 04:00] VITALS: BP 104/58; PULSE 42; RESP 17; TEMP 37; O2SAT 92; BMI 31.0
--- NOTE | 2023-09-03 04:45 | PC.NURSE ---
Pt alert and oriented. Pt has complained of pain throughout shift, treated per oct. Pt has complained of nausea, treated per oct. Pt ambulated to the restroom with standby assist. Pt has not rested well through the shift. Pt has been NPO since midnight. Call light in reach.
[2023-09-03 07:42] VITALS: BP 110/57; PULSE 50; RESP 18; TEMP 36.5; O2SAT 98
[2023-09-03 08:53] LABS: Basophils % 0.3 % (0.1-2.0); Eosinophils # 0.4 K/mm3 (0.0-0.4); Eosinophils % 7.4 % (0.1-12.0); Lymphocytes # 2.2 K/mm3 (0.7-4.5); Lymphocytes % 45.4 % (10-50); Mean Corpuscular HGB Conc 32.2 g/dL (31.8-35.4); Mean Corpuscular Hemoglobin 28.5 pg (27.0-31.2); Mean Corpuscular Volume 88.5 fl (81-99); Mean Platelet Volume 10.8 fl (7.4-10.4); Monocytes # 0.3 K/mm3 (0.1-1.0); Neutrophils % 40.9 % (37.0-80.0); Platelet Count 238 K/mm3 (142-424); Red Blood Count 3.17 M/mm3 (4.20-5.40); White Blood Count 4.8 K/mm3 (4.8-10.8)
[2023-09-03 08:58] LABS: Chloride 110 mmol/L (98-107); Glucose 81 mg/dl (74-100); Magnesium 1.9 mg/dl (1.6-2.3); Potassium 3.9 mmoL/L (3.5-5.1); Sodium 140 mmol/L (136-145)
[2023-09-03 08:59] LABS: Anion Gap 5.9 mEq/L (5-15); Blood Urea Nitrogen 9 mg/dl (7-17); Carbon Dioxide 28 mmol/L (22.0-30.0); Creatinine Clearance Estimated 65 mL/min (50-200); Estimated Glomerular Filt Rate 50 ml/min (>60); GFR (African American) 60 ML/MIN (>60)
--- NOTE | 2023-09-03 09:14 | HMH.PHAINT1 ---
Pharmacy Intervention Comments: MEDICATION RECONCILIATION COMPLETE USING EXTERNAL PHARMACY FILL HISTORY AND LIST FROM MOST RECENT MD OFFICE VISIT.
--- NOTE | 2023-09-03 15:04 | EXP.PN ---
Subjective *Date: 09/15/23 *Time: 17:31 Interval history: patient was seen and evaluated at the bedside. No reported acute events overnight, denies chest pain, shortness of breath, nausea, vomiting, abdominal pain. Exam Data for Last 24 hours Vital signs and Labs for Last 24 Hours: Temp Pulse Resp BP Pulse Ox O2 Del Method 97.7 F 50 L 18 110/57 L 98 Room Air 09/03/23 07:42 09/03/23 07:42 09/03/23 07:42 09/03/23 07:42 09/03/23 07:42 09/03/23 13:00 Laboratory Results - last 24 hr 09/02/23 17:55: Hgb 9.9 L, Hct 31.2 L 09/03/23 07:30: WBC 4.8, RBC 3.17 L, Hgb 9.0 L, Hct 28.0 L, MCV 88.5, MCH 28.5, MCHC 32.2, RDW 16.0, Plt Count 238, MPV 10.8 H, Neut % (Auto) 40.9, Lymph % (Auto) 45.4, [place] % (Auto) 6.0, Eos % (Auto) 7.4, Baso % (Auto) 0.3, Neut # (Auto) 2.0, Lymph # (Auto) 2.2, [place] # (Auto) 0.3, Eos # (Auto) 0.4, Baso # (Auto) 0.0, Sodium 140, Potassium 3.9, Chloride 110 H, Carbon Dioxide 28, Anion Gap 5.9, BUN 9, Creatinine 1.10 H, Estimated Creat Clear 65, Estimated GFR 50 L, Est GFR ( Amer) 60, Glucose 81 D, Calcium 8.0 L, Magnesium 1.9 I & O for Last 24 hours: Intake & Output 08/31/23 09/01/23 09/02/23 09/03/23 23:59 23:59 23:59 23:59 Intake Total 1022 / 1022 Output Total 0 / 0 0 / 0 Balance 0 / 0 1022 / 1022 Weight 76.657 kg 82.372 kg Constitutional Constitutional: no acute distress *Routine HEENT Exam Head: Present normocephalic Eye: Present EOMI and PERRL ENT: Present mucous membranes moist *Routine Neck Exam Neck: Present supple; Absent lymphadenopathy *Routine Respiratory Exam Respiratory: Present CTA bilaterally *Routine Cardiovascular Exam Cardiovascular: Present RRR *Routine Abdominal Exam Abdominal: Present soft and normoactive bowel sounds; Absent tenderness *Routine Extremities Exam Extremities: Absent cyanosis, clubbing or edema *Routine Skin Exam Skin: Present warm; Absent rash *Routine Neurological Exam Neurological: Present alert and oriented X3 Assessment and Plan *Assessment and plan (1) Gastritis: Status: Acute Category: Medical Code(s): K29.70 - Gastritis, unspecified, without bleeding (2) Upper GI bleed: Status: Resolved Category: Medical Code(s): K92.2 - Gastrointestinal hemorrhage, unspecified Plan Patient is a 67-year-old female with past medical history of peptic ulcer disease, Crohn's disease who presents to the hospital due to abdominal pain. According the patient her pain is epigastric,, 10/10 intensity, radiates to her back. She mentions she has been on painkillers at home which is not helping. She also mentions she has noticed blood alcohol vomiting. She has not been able to hold down the food. Patient otherwise denied chest pain shortness of breath. Patient mentions she recently had EGD performed by general surgery team and she had polyps removed from her stomach. Assessment Epigastric pain, suspect gastritis, peptic ulcer disease Hematemesis, upper GI bleed Anemia History of colon disease Hypertension Hyperlipidemia Plan Patient recently had EGD, per patient pain started after EGD, will consult general surgery Start IV PPI N.p.o. after midnight Clear Liquid diet for now IV fluids Pain control DVT prophylaxis-SCD Await GS recs, NPO after MN
[2023-09-03 15:14] VITALS: BP 111/57; PULSE 44; RESP 18; TEMP 36.4; O2SAT 96
[2023-09-03 20:00] VITALS: BP 143/71; PULSE 49; RESP 17; TEMP 36.7; O2SAT 96
[2023-09-04] VITALS (19 sets, daily range): BP systolic 106–169; BP diastolic 58–88; PULSE 44–74; RESP 16–20; TEMP 36.4–36.9; O2SAT 91–100; BMI 32.1
--- NOTE | 2023-09-04 01:28 | PC.NURSE ---
Pt stated to tech she felt wheezy and ask to get her nurse to listen to her. I went in the room to listen, lung sounds clear, another nurse checked behind me, states she has some mild wheezing in bases but does not sound tight. Notified Haresh Figueroa. New orders received and carried out.
--- NOTE | 2023-09-04 05:29 | PC.NURSE ---
Pt has complained of pain 2 times this shift, treated per oct. Pt has had no nausea/vomiting. Pt has ambulated to the restroom with 1 assist. Pt did receive a duo-neb for feeling wheezy. Pt has rested intermittently throughout the shift. No other complaints. Call light in reach.
--- NOTE | 2023-09-04 06:48 | EXP.SURG.CON ---
History of Present Illness *Admission Date: 09/02/23 *Reason for visit:: Hematemesis *History of present illness: Patient is a 67-year-old female with history of anxiety disorder, dysphagia, reported history of Crohn's disease. She has numerous drug allergies. I had seen the patient as a referral for upper endoscopy as she had history of dysphagia and epigastric discomfort with bloating. Patient has reported history of Crohn's disease reportedly in remission. She had undergone upper endoscopy with Dr. Vizcarra in November 2018 for symptoms of midepigastric pain, nausea, bloating, early satiety, and hiccups.. She was found to have nonerosive GERD and mild esophageal dysmotility with reactive gastropathy and gastric atrophy. She did have an upper GI series performed on 05/09/2022 which revealed a small to moderate hiatal hernia, gastroesophageal reflux radiographically, feline esophagus, esophageal dysmotility. I had performed upper endoscopy on 08/18/2023 at which time she was found to have findings of esophageal dysmotility with mild cricopharyngeal spasm and small hiatal hernia. There was nonerosive diffuse gastropathy. Biopsies revealed mild reactive changes. No H. pylori. Distal esophageal biopsies revealed mild reactive changes. She is on pantoprazole. Patient had presented to the emergency department on 09/01/2023 with intermittent epigastric pain with decreased oral intake and nausea. At that time she was complaining of some fever. She had a CTA of the abdomen and pelvis which was unremarkable for any acute issue. Chest CTA revealed no mass or localized inflammatory process. She was managed as an outpatient. Patient presented back to the emergency department on 09/02/2023 with epigastric and left upper quadrant pain. This had been refractory to home opioids, PPI, Carafate. She describes sensation of blood in the back of her throat. She had a CT scan which revealed no acute abnormality of the abdomen pelvis. She had generalized weakness. Given the intractable nature of the patient's symptoms she was admitted on 09/02/2023 for inpatient management. Surgical consultation was requested today on 09/04/2023 for hematemesis . She has a baseline hemoglobin of approximately 10-11. Hemoglobin on admission on 09/02/2023 of 9.6. Hemoglobin today of 8.5. [facility] Disclaimer: The information contained in this section may have been updated after the patient was seen, as this information can be updated by other users. Medical History Allergies Anxiety Bilateral lower extremity edema Chest pain Cholecystectomy planned Depression Dyspnea Edema History of anemia HTN (hypertension) Hx of Crohn's disease Insomnia Knee effusion, right Osteoporosis Pneumonia Positive D dimer Sinus bradycardia Urinary tract infection Surgical History H/O oral surgery H/O total hysterectomy History of appendectomy History of arthroscopy of right knee History of esophagogastroduodenoscopy (EGD) History of intestinal surgery Family History Other Cancer Heart attack Social History Smoking Status: Never smoker second hand exposure: No alcohol intake: never substance use type: denies use current occupational status: disabled Travel in the last 8 weeks: None household members: none housing: apartment number of children: 2 current occupational exposures/hazards: No caffeine: Yes Meds Home Medications and Allergies Home Medications Medication Instructions Recorded Confirmed Type albuterol sulfate 90 mcg/actuation 2 puff inhalation Q6HP PRN 05/15/23 09/03/23 History aerosol inhaler (ProAir HFA) Shortness Of Breath Or Wheezing alendronate 70 mg tablet 70 mg PO WEEKLY Bone Loss 05/15/23 09/03/23 History lis
[2023-09-04 07:16] LABS: Basophils % 0.6 % (0.1-2.0); Eosinophils # 0.4 K/mm3 (0.0-0.4); Eosinophils % 8.3 % (0.1-12.0); Hematocrit 26.2 % (37.0-47.0); Hemoglobin 8.5 g/dL (12.2-16.2); Lymphocytes # 1.9 K/mm3 (0.7-4.5); Lymphocytes % 36.9 % (10-50); Mean Corpuscular HGB Conc 32.4 g/dL (31.8-35.4); Mean Corpuscular Hemoglobin 28.8 pg (27.0-31.2); Mean Corpuscular Volume 88.9 fl (81-99); Mean Platelet Volume 10.9 fl (7.4-10.4); Monocytes # 0.3 K/mm3 (0.1-1.0); Monocytes % 6.1 % (1.7-9.3); Neutrophils # 2.5 K/mm3 (1.8-7.8); Neutrophils % 48.1 % (37.0-80.0); Platelet Count 214 K/mm3 (142-424); Red Blood Count 2.95 M/mm3 (4.20-5.40); Red Cell Distribution Width 15.9 % (11.5-17.5); White Blood Count 5.2 K/mm3 (4.8-10.8)
[2023-09-04 07:52] LABS: Anion Gap 10.1 mEq/L (5-15); Blood Urea Nitrogen 6 mg/dl (7-17); Calcium 7.5 mg/dl (8.4-10.2); Carbon Dioxide 21 mmol/L (22.0-30.0); Chloride 112 mmol/L (98-107); Creatinine Clearance Estimated 74 mL/min (50-200); Estimated Glomerular Filt Rate 55 ml/min (>60); GFR (African American) 67 ML/MIN (>60); Glucose 79 mg/dl (74-100); Magnesium 1.8 mg/dl (1.6-2.3); Potassium 4.1 mmoL/L (3.5-5.1); Sodium 139 mmol/L (136-145)
--- NOTE | 2023-09-04 12:22 | HMH.SCOPE ---
Procedure: Date: 09/04/23 Patient Date of :: 1955 Procedure Performed:: Esophagogastroduodenoscopy Indications:: Patient is a 67-year-old female with history of anxiety disorder, dysphagia, reported history of Crohn's disease. She has numerous drug allergies. I had seen the patient as a referral for upper endoscopy as she had history of dysphagia and epigastric discomfort with bloating. Patient has reported history of Crohn's disease reportedly in remission. She had undergone upper endoscopy with Dr. Vizcarra in November 2018 for symptoms of midepigastric pain, nausea, bloating, early satiety, and hiccups.. She was found to have nonerosive GERD and mild esophageal dysmotility with reactive gastropathy and gastric atrophy. She did have an upper GI series performed on 05/09/2022 which revealed a small to moderate hiatal hernia, gastroesophageal reflux radiographically, feline esophagus, esophageal dysmotility. I had performed upper endoscopy on 08/18/2023 at which time she was found to have findings of esophageal dysmotility with mild cricopharyngeal spasm and small hiatal hernia. There was nonerosive diffuse gastropathy. Biopsies revealed mild reactive changes. No H. pylori. Distal esophageal biopsies revealed mild reactive changes. She is on pantoprazole. Patient had presented to the emergency department on 09/01/2023 with intermittent epigastric pain with decreased oral intake and nausea. At that time she was complaining of some fever. She had a CTA of the abdomen and pelvis which was unremarkable for any acute issue. Chest CTA revealed no mass or localized inflammatory process. She was managed as an outpatient. Patient presented back to the emergency department on 09/02/2023 with epigastric and left upper quadrant pain. This had been refractory to home opioids, PPI, Carafate. She describes sensation of blood in the back of her throat. She had a CT scan which revealed no acute abnormality of the abdomen pelvis. She had generalized weakness. Given the intractable nature of the patient's symptoms she was admitted on 09/02/2023 for inpatient management. Surgical consultation was requested today on 09/04/2023 for hematemesis . She has a baseline hemoglobin of approximately 10-11. Hemoglobin on admission on 09/02/2023 of 9.6. Hemoglobin today of 8.5. Given the patient's epigastric pain and decreased hemoglobin plan was for follow-up upper endoscopy Performing Provider:: Luis Alberto Norris MD Referring Provider:: Librado Landry Sedation:: MAC sedation Procedure:: Patient history was obtained and appropriate physical examination was performed. Patient's medications and allergies were reviewed. Informed consent was obtained after explaining the benefits, alternatives, and risks of the procedure including, but not limited to, bleeding, perforation, missed lesions, and adverse reaction to anesthesia medications. Patient was transported to endoscopy procedure room. Patient was connected to monitoring devices. Throughout the procedure the patient's blood pressure, pulse, and oxygen saturations were monitored continuously. Patient identification and planned procedure were verified by the staff. Patient was positioned in lateral decubitus position. Olympus endoscope was inserted via the oropharynx. She had some very minimal cricopharyngeal spasm. Esophagus was cannulated. There was some minor tortuosity to the esophagus consistent with esophageal dysmotility. Gastroesophageal junction was encountered at approximately 38 cm which was unremarkable. Stomach was cannulated and insufflated. Retroflexion revealed extremely tiny, essentially inconsequential, hiatal hernia. There is minor nonerosive diffuse gastropathy. Pylorus was traversed. Duodenal bulb appeared normal. Endoscope was advanced a generous distance into the small bowel which appeared unremarkable. There was no evidence of any acute pathology or recent bleeding. Endoscope was with
--- NOTE | 2023-09-04 13:59 | EXP.ACUTE.PN ---
Subjective *Date: 09/04/23 *Time: 14:07 Interval history: Continues to have epigastric and abdominal cramping. No iraj emesis overnight. No shortness of breath. Denies any chest pain. Afebrile. Medical Exam Vital signs and Labs for Last 24 Hours: Vital Signs Temp Pulse Pulse Pulse Resp BP Pulse Ox 09/04/23 12:45 09/04/23 12:41 97.7 F 58 L 16 148/81 H 100 09/04/23 12:31 56 L 16 127/77 100 09/04/23 12:21 97.7 F 51 L 16 106/58 L 94 L 09/04/23 12:10 09/04/23 11:05 09/04/23 07:50 09/04/23 09:30 09/04/23 08:00 98.1 F 09/04/23 07:59 44 L 20 165/85 H 100 09/04/23 06:51 09/04/23 04:00 97.5 F L 56 L 17 144/79 H 97 09/04/23 05:00 09/04/23 03:00 09/04/23 02:16 58 L 09/04/23 02:15 58 L 09/04/23 00:00 97.7 F 51 L 17 125/74 91 L 09/04/23 01:00 09/03/23 22:43 09/03/23 21:00 09/03/23 20:00 09/03/23 20:00 98.1 F 49 L 17 143/71 H 96 09/03/23 18:02 09/03/23 17:00 09/03/23 15:00 09/03/23 15:14 97.6 F 44 L 18 111/57 L 96 O2 Del Method O2 Flow Rate 09/04/23 12:45 Room Air 09/04/23 12:41 Room Air 09/04/23 12:31 Room Air 09/04/23 12:21 Nasal Cannula 2 09/04/23 12:10 Room Air 5 09/04/23 11:05 Room Air 09/04/23 07:50 Room Air 09/04/23 09:30 Room Air 09/04/23 08:00 09/04/23 07:59 Room Air 09/04/23 06:51 Room Air 09/04/23 04:00 Room Air 09/04/23 05:00 Room Air 09/04/23 03:00 Room Air 09/04/23 02:16 09/04/23 02:15 09/04/23 00:00 Room Air 09/04/23 01:00 Room Air 09/03/23 22:43 Room Air 09/03/23 21:00 Room Air 09/03/23 20:00 Room Air 09/03/23 20:00 Room Air 09/03/23 18:02 Room Air 09/03/23 17:00 Room Air 09/03/23 15:00 Room Air 09/03/23 15:14 Room Air Intake and Output 09/03/23 09/04/23 09/04/23 23:59 07:59 15:59 Intake Total 1360 / 2382 693 / 1099 406 / 1099 Output Total 0 / 0 0 / 0 0 / 0 Balance 1360 / 2382 693 / 1099 406 / 1099 Intake: Intake, Oral Amount 1360 / 1630 Intake, Total IV Amount 693 / 1099 406 / 1099 0.9 % Sodium Chloride 1000ML 1, 693 / 1099 406 / 1099 000 ml @ 75 mls/hr IV .[id number] [facility] Rx#:[id number] Output: Output, Urine Amount 0 / 0 0 / 0 0 / 0 Other: Number of Voids 0 Number of Unmeasured Voids 1 1 1 Weight 85.502 kg Patient Weight 09/04/23 23:59 Weight 85.502 kg Laboratory Results - last 24 hr 09/04/23 06:08: WBC 5.2, RBC 2.95 L, Hgb 8.5 L, Hct 26.2 L, MCV 88.9, MCH 28.8, MCHC 32.4, RDW 15.9, Plt Count 214, MPV 10.9 H, Neut % (Auto) 48.1, Lymph % (Auto) 36.9, [place] % (Auto) 6.1, Eos % (Auto) 8.3, Baso % (Auto) 0.6, Neut # (Auto) 2.5, Lymph # (Auto) 1.9, [place] # (Auto) 0.3, Eos # (Auto) 0.4, Baso # (Auto) 0.0, Sodium 139, Potassium 4.1, Chloride 112 H, Carbon Dioxide 21 L, Anion Gap 10.1, BUN 6 L D, Creatinine 1.00, Estimated Creat Clear 74, Estimated GFR 55 L, Est GFR ( Amer) 67, Glucose 79, Calcium 7.5 L, Magnesium 1.8 I & O for Labs for Last 24 Hours: Intake & Output 09/01/23 09/02/23 09/03/23 09/04/23 23:59 23:59 23:59 23:59 Intake Total 238 / 238 1099 / 1099 Output Total 0 / 0 0 / 0 0 / 0 Balance 0 / 0 2381 / 2381 1099 / 1099 Weight 76.657 kg 82.372 kg 85.502 kg Constitutional: Present no acute distress, obese and chronically ill appearing Head: Present atraumatic and normocephalic ENT: Present normal exam Respiratory: Present normal respiratory effort; Absent rhonchi, wheezes or crackles Cardiac: Present Reg Rate and Rhythm GI: Present soft, tenderness (Epigastric) and normal bowel sounds; Absent distention, guarding or rebound Extremities: Present normal inspection and full ROM Skin: Present intact; Absent erythema Neuro: Present Grossly Intact, alert, awake, oriented x 3 and moves all extremities Assessment and Plan *Assessment and plan (1) Gastritis: St
--- NOTE | 2023-09-04 16:56 | PC.NURSE ---
Patient tolerating full liquid diet well, VS stable and patient remained on room air. Pain reported and prn pain medication given.
--- NOTE | 2023-09-04 19:04 | PC.NURSE ---
Attempted to obtain occult stool sample. Patient stated she wanted to wait because she felt as if she was going to have a bowel movement. Patient educated that we did not need to have a stool sample for an occult stool but patient insisted she wait until she had a bowel movement
[2023-09-05 04:00] VITALS: BP 142/80; PULSE 58; RESP 18; TEMP 36.9; O2SAT 96; BMI 30.9
[2023-09-05 04:10] VITALS: PULSE 44; PULSE 45
--- NOTE | 2023-09-05 04:54 | PC.NURSE ---
Pt has had a good night tonight. Has been able to rest some. Pain has been controlled with home dose of medication. Nausea had been some an issue but is tolerating the diet advancement for the most part. No other issue noted
[2023-09-05 05:59] LABS: Basophils % 0.3 % (0.1-2.0); Eosinophils # 0.5 K/mm3 (0.0-0.4); Eosinophils % 8.9 % (0.1-12.0); Hematocrit 28.8 % (37.0-47.0); Hemoglobin 8.9 g/dL (12.2-16.2); Lymphocytes # 1.5 K/mm3 (0.7-4.5); Lymphocytes % 25.3 % (10-50); Mean Corpuscular HGB Conc 30.9 g/dL (31.8-35.4); Mean Corpuscular Hemoglobin 27.5 pg (27.0-31.2); Mean Corpuscular Volume 89.2 fl (81-99); Mean Platelet Volume 10.5 fl (7.4-10.4); Monocytes # 0.3 K/mm3 (0.1-1.0); Monocytes % 5.9 % (1.7-9.3); Neutrophils # 3.5 K/mm3 (1.8-7.8); Neutrophils % 59.6 % (37.0-80.0); Platelet Count 219 K/mm3 (142-424); Red Blood Count 3.23 M/mm3 (4.20-5.40); Red Cell Distribution Width 15.8 % (11.5-17.5); White Blood Count 5.8 K/mm3 (4.8-10.8)
[2023-09-05 06:06] LABS: Anion Gap 8.1 mEq/L (5-15); Blood Urea Nitrogen 8 mg/dl (7-17); Calcium 7.3 mg/dl (8.4-10.2); Carbon Dioxide 27 mmol/L (22.0-30.0); Chloride 111 mmol/L (98-107); Creatinine Clearance Estimated 74 mL/min (50-200); Estimated Glomerular Filt Rate 55 ml/min (>60); GFR (African American) 67 ML/MIN (>60); Glucose 100 mg/dl (74-100); Magnesium 1.6 mg/dl (1.6-2.3); Potassium 4.1 mmoL/L (3.5-5.1); Sodium 142 mmol/L (136-145)
--- NOTE | 2023-09-05 07:49 | EXP.DC.SUM ---
General Admission date:: 09/02/23 Discharge date: 09/05/23 HPI HPI HPI: Patient is a 67-year-old female with history of anxiety disorder, dysphagia, reported history of Crohn's disease. She has numerous drug allergies. I had seen the patient as a referral for upper endoscopy as she had history of dysphagia and epigastric discomfort with bloating. Patient has reported history of Crohn's disease reportedly in remission. She had undergone upper endoscopy with Dr. Vizcarra in November 2018 for symptoms of midepigastric pain, nausea, bloating, early satiety, and hiccups.. She was found to have nonerosive GERD and mild esophageal dysmotility with reactive gastropathy and gastric atrophy. She did have an upper GI series performed on 05/09/2022 which revealed a small to moderate hiatal hernia, gastroesophageal reflux radiographically, feline esophagus, esophageal dysmotility. I had performed upper endoscopy on 08/18/2023 at which time she was found to have findings of esophageal dysmotility with mild cricopharyngeal spasm and small hiatal hernia. There was nonerosive diffuse gastropathy. Biopsies revealed mild reactive changes. No H. pylori. Distal esophageal biopsies revealed mild reactive changes. She is on pantoprazole. Patient had presented to the emergency department on 09/01/2023 with intermittent epigastric pain with decreased oral intake and nausea. At that time she was complaining of some fever. She had a CTA of the abdomen and pelvis which was unremarkable for any acute issue. Chest CTA revealed no mass or localized inflammatory process. She was managed as an outpatient. Patient presented back to the emergency department on 09/02/2023 with epigastric and left upper quadrant pain. This had been refractory to home opioids, PPI, Carafate. She describes sensation of blood in the back of her throat. She had a CT scan which revealed no acute abnormality of the abdomen pelvis. She had generalized weakness. Given the intractable nature of the patient's symptoms she was admitted on 09/02/2023 for inpatient management. Surgical consultation was requested today on 09/04/2023 for hematemesis . She has a baseline hemoglobin of approximately 10-11. Hemoglobin on admission on 09/02/2023 of 9.6. Hemoglobin today of 8.5. Hospital Course Hospital Course Hospital Course: Patient is a 67-year-old female with past medical history of peptic ulcer disease, Crohn's disease who presents to the hospital due to abdominal pain. According the patient her pain is epigastric,, 10/10 intensity, radiates to her back. She mentions she has been on painkillers at home which is not helping. Difficulty keeping food down. Surgery consulted and taking for EGD 09/04. Found to have some continued critical pharyngeal spasm. No signs of bleeding. Advance diet after EGD. Patient has done well and tolerating p.o. intake. Stable for discharge home with further management as an outpatient. Hemoglobin remained stable. Problems addressed as follows: GERD w/ gastritis History of Crohn's - No bloody bowel movements or further hematemesis during admission. Surgery consulted, taken for EGD 09/04. See report for full details. Continue sucralfate and pantoprazole. Patient was able to advance diet pretty rapidly after procedure with no further significant pain. Has been stable on her chronic pain regimen with hydrocodone 3-4 times a day. No nausea or vomiting for 24 hours. Given stability in hemoglobin, kidney function, and tolerance of p.o. intake, stable to discharge home with outpatient follow-up. Anxiety: Continue Klonopin per home regimen, continue Prozac 40 mg daily Anemia: - Hemoglobin mid 8 for over 48 hours. No signs of active bleeding. No significant bloody bowel movement or hematemesis. Follow-up as outpatient for further workup for possible sources of bleeding with possible colonoscopy. Follow-up scheduled with surgery. Continue aggressive bowel regimen with docusate and
[2023-09-05 08:00] VITALS: BP 155/79; PULSE 56; RESP 22; TEMP 36.8; O2SAT 100; O2SAT 98
--- NOTE | 2023-09-05 12:20 | PC.NURSE ---
Left chest port flushed and removed.
--- NOTE | 2023-09-07 15:04 | CARE MANAGER ---
Attempted to contact patient x2 related to hospital discharge. Left VM message. DURAN Hernández
== END 2023-09-05 13:00 | disposition home or self-care (01) ==
LOC: ER 11:54 → 2ND 16:15
PROVIDERS: Surgery; Admitting Provider Internal Medicine; Emergency Provider Emergency Medicine; PCP Internal Medicine; Visit Provider Internal Medicine
PROC: 0DJ08ZZ Inspection of Upper Intestinal Tract, Via Natural or Artificial Opening Endoscopic (ICD-10-PCS; CPT 43235; principal; 2023-09-04 11:00)
DX: K29.71 Gastritis, unspecified, with bleeding (principal); I10 Essential (primary) hypertension; E78.5 Hyperlipidemia, unspecified; Z79.899 Other long term (current) drug therapy; D64.9 Anemia, unspecified; R13.10 Dysphagia, unspecified; K22.4 Dyskinesia of esophagus; K50.90 Crohn's disease, unspecified, without complications
CPT/HCPCS: 43235; 36415; 73562; 74177; 80048; 80053; 81001; 83605; 83690; 83735; 84100; 84443; 85014; 85018; 85025; 85610; 93005; 94640; 99285; G0378; J2405; Q9967

== ENCOUNTER 2023-09-11 12:04 | Outpatient (CLI) | payer OTHER, SELFPAY ==
[2023-09-11] MEDS: SODIUM CHLORIDE 0.9% 10ML FLUSH SYRINGE 10 ML IV (12:18)
[2023-09-11 12:35] LABS: Basophils % 0.4 % (0.1-2.0); Eosinophils # 0.1 K/mm3 (0.0-0.4); Eosinophils % 1.3 % (0.1-12.0); Hematocrit 31.7 % (37.0-47.0); Hemoglobin 10.3 g/dL (12.2-16.2); Lymphocytes # 1.1 K/mm3 (0.7-4.5); Lymphocytes % 12.5 % (10-50); Mean Corpuscular HGB Conc 32.6 g/dL (31.8-35.4); Mean Corpuscular Hemoglobin 28.3 pg (27.0-31.2); Mean Corpuscular Volume 86.8 fl (81-99); Mean Platelet Volume 9.8 fl (7.4-10.4); Monocytes # 0.4 K/mm3 (0.1-1.0); Neutrophils # 6.8 K/mm3 (1.8-7.8); Neutrophils % 80.7 % (37.0-80.0); Platelet Count 275 K/mm3 (142-424); Red Blood Count 3.65 M/mm3 (4.20-5.40); Red Cell Distribution Width 15.7 % (11.5-17.5); White Blood Count 8.4 K/mm3 (4.8-10.8)
[2023-09-11 12:42] LABS: Alanine Aminotransferase 23 U/L (12-78); Albumin Level 4.2 g/dl (3.5-5.0); Albumin/Globulin Ratio 1.4 (1.1-1.8); Alkaline Phosphatase 49 U/L (38-126); Anion Gap 12.8 mEq/L (5-15); Aspartate Amino Transferase 33 U/L (14-36); Bilirubin,Total 0.4 mg/dl (0.2-1.3); Blood Urea Nitrogen 13 mg/dl (7-17); Calcium 8.7 mg/dl (8.4-10.2); Carbon Dioxide 26 mmol/L (22.0-30.0); Chloride 107 mmol/L (98-107); Estimated Glomerular Filt Rate 45 ml/min (>60); GFR (African American) 54 ML/MIN (>60); Globulin 2.9 g/dL (1.3-3.2); Glucose 146 mg/dl (74-100); Potassium 3.8 mmoL/L (3.5-5.1); Sodium 142 mmol/L (136-145); Total Protein,Serum 7.1 g/dl (6.3-8.2)
[2023-09-11 13:00] LABS: Erythrocyte Sedimentation Rate 23 mm/hr (0-30)
== END 2023-09-11 12:20 | disposition home or self-care (01) ==
LOC: INF 12:08
PROVIDERS: PCP Internal Medicine; Visit Provider Internal Medicine
DX: R53.83 Other fatigue (principal); R11.2 Nausea with vomiting, unspecified; Z79.899 Other long term (current) drug therapy; Z45.2 Encounter for adjustment and management of vascular access device
CPT/HCPCS: 36591; 80053; 85025; 85651; J1642

== ENCOUNTER 2023-09-22 09:39 | Emergency (ER) | payer MEDICARE, OTHER, SELFPAY ==
--- NOTE | 2023-09-22 10:18 | EXP.UTC ---
Discharge Plan Disposition Patient Disposition: Home, Self-Care Condition: Good Prescriptions Prescriptions: New meclizine 25 mg tablet 25 mg PO TID PRN (Reason: dizziness) Qty: 30 0RF No Action hydrocodone-acetaminophen 7.5-325 mg tablet 1 tab PO QID 30 Days Qty: 120 0RF alendronate 70 mg tablet 70 mg PO WEEKLY pantoprazole 40 mg tablet,delayed release (DR/EC) 40 mg PO DAILY lisinopril 10 mg tablet 10 mg PO DAILY albuterol sulfate [ProAir HFA] 90 mcg/actuation HFA aerosol inhaler 2 puff inhalation Q6HP PRN (Reason: Shortness Of Breath Or Wheezing) spironolactone 25 mg tablet 25 mg PO DAILY loratadine 10 mg tablet 10 mg PO DAILY ondansetron 4 mg tablet,disintegrating 4 mg PO Q8H PRN (Reason: nausea and vomiting) 5 Days Qty: 12 0RF aspirin 81 mg tablet,delayed release (DR/EC) 81 mg PO DAILY Patient Comments: TAKE ONE TABLET BY MOUTH EVERY DAY FOR heart health fluoxetine 40 mg capsule 40 mg PO DAILY potassium chloride 10 mEq capsule, extended release 10 meq PO DAILY clonazepam [Klonopin] 0.5 mg tablet 0.5 mg PO TID sucralfate 1 gram Tablet 1 g PO ACHS 7 Days Qty: 28 0RF sennosides-docusate sodium [Stool Softener-Stimulant Laxat] 8.6-50 mg Tablet 1 tab PO BID PRN (Reason: constipation) 30 Days Qty: 60 0RF Referrals Follow up/Referrals: Librado Gilmore DO [Primary Care Provider] - See instructions Activity Restrictions/Add. Instructions Additional Instructions/Restrictions: Follow up with PCP next week Take Meclizine as directed Push fluids Clinical Impressions Clinical Impression: Vertigo Instructions Patient Instructions: DI for Vertigo Discharge ED Provider: Lizz Loera [facility] [place] General Stated complaint: weakness vomiting fever 101 Time Seen by Provider: 09/22/23 10:30 History of Present Illness Provider Complaint: Patient presents with weakness, nausea and vomiting. She was recently admitted for GI bleed. Has had f/u with PCP as well. States she just isn't feeling better. She is weak and dizzy and just doesn't feel like she is bouncing back. Onset (ago): week(s) (3) Relieving factors: none Exacerbating factors: none Associated symptoms: denies other symptoms Treatments prior to arrival: none Related Data Home Medications Medication Instructions Recorded Confirmed albuterol sulfate 90 mcg/actuation 2 puff inhalation Q6HP PRN 05/15/23 09/11/23 aerosol inhaler (ProAir HFA) Shortness Of Breath Or Wheezing alendronate 70 mg tablet 70 mg PO WEEKLY Bone Loss 05/15/23 09/11/23 lisinopril 10 mg tablet 10 mg PO DAILY High Blood Pressure 05/15/23 09/11/23 loratadine 10 mg tablet 10 mg PO DAILY Allergy Symptoms 05/15/23 09/11/23 pantoprazole 40 mg tablet,delayed 40 mg PO DAILY GERD 05/15/23 09/11/23 release spironolactone 25 mg tablet 25 mg PO DAILY Fluid 05/15/23 09/11/23 aspirin 81 mg tablet,delayed 81 mg PO DAILY Heart Disease 09/03/23 09/11/23 release clonazepam 0.5 mg tablet (Klonopin) 0.5 mg PO TID Anxiety 09/03/23 09/11/23 fluoxetine 40 mg capsule 40 mg PO DAILY Anxiety 09/03/23 09/11/23 potassium chloride 10 mEq 10 meq PO DAILY Supplement 09/03/23 09/11/23 capsule,extended release Previous Rx's Medication Instructions Recorded ondansetron 4 mg disintegrating 4 mg PO Q8H PRN nausea and 07/27/23 tablet vomiting 5 days #12 tabs sennosides 8.6 mg-docusate sodium 1 tab PO BID PRN constipation 30 09/05/23 50 mg tablet (Stool days #60 tabs Softener-Stimulant Laxative) sucralfate 1 gram tablet 1 g PO ACHS 7 days #28 tabs 09/05/23 hydrocodone 7.5 mg-acetaminophen 1 tab PO QID Back Pain 30 days 09/07/23 325 mg tablet #120 tabs meclizine 25 mg tablet 25 mg PO TID PRN dizziness #30 tabs 09/22/23 Allergies Allergy/AdvReac Type Severity Reaction Status Date / Time cephalexin [From Keflex] Allergy Severe Difficulty Verified 09/22/23 11:16 Breathing prochlorperazine
[2023-09-22 11:05] VITALS: BP 124/82; PULSE 70; RESP 16; TEMP 37.2; O2SAT 96; BMI 27.9
[2023-09-22 11:40] LABS: Apearance,Urine Clear (Clear); Bilirubin,Urine Negative (Negative); Blood, Urine Negative (Negative); Color,Urine Yellow (Yellow); Glucose,Urine (UA) Negative (Negative); Ketones,Urine TRACE (Negative); PH,Urine 5.5 (5.0-8.5); Protein,Urine 1+ (Negative); UTC Leukocyte Esterase,Urine Negative (Negative); UTC Nitrate,Urine Negative (Negative); Urobilinogen,Urine 0.2 EU/dl (0.2)
--- NOTE | 2023-09-22 11:53 | XR_ITS ---
FINAL REPORT CLINICAL HISTORY: cough COMPARISON: 08/03/2023 FINDINGS: Two views of the chest were obtained. A left subclavian chest port is present. The heart size and pulmonary vascularity are within normal limits. The mediastinum is normal. No acute pulmonary abnormality is identified. There is no pneumothorax. The bony thorax is intact. IMPRESSION: No active cardiopulmonary disease. Reviewed, Interpreted and Dictated by Luis Alberto Redd III, MD Transcribed by Nahomi Hunter Authenticated and [facility]
--- NOTE | 2023-09-22 11:54 | PC.NURSE ---
Called [facility] for chest xray
[2023-09-22 12:09] LABS: Basophils % 0.3 % (0.1-2.0); Eosinophils # 0.2 K/mm3 (0.0-0.4); Eosinophils % 3.3 % (0.1-12.0); Hematocrit 35.9 % (37.0-47.0); Hemoglobin 11.9 g/dL (12.2-16.2); Lymphocytes % 29.6 % (10-50); Mean Corpuscular HGB Conc 33.1 g/dL (31.8-35.4); Mean Corpuscular Hemoglobin 28.8 pg (27.0-31.2); Mean Platelet Volume 9.6 fl (7.4-10.4); Monocytes # 0.3 K/mm3 (0.1-1.0); Neutrophils # 4.1 K/mm3 (1.8-7.8); Neutrophils % 61.8 % (37.0-80.0); Platelet Count 303 K/mm3 (142-424); Red Blood Count 4.13 M/mm3 (4.20-5.40); Red Cell Distribution Width 15.6 % (11.5-17.5); White Blood Count 6.6 K/mm3 (4.8-10.8)
[2023-09-22 13:19] VITALS: BP 124/82; PULSE 70; RESP 16; TEMP 37.2; O2SAT 96
== END 2023-09-22 13:19 | disposition home or self-care (01) ==
PROVIDERS: Emergency Provider Physician Assistant; PCP Internal Medicine
DX: R11.2 Nausea with vomiting, unspecified (principal); B96.89 Other specified bacterial agents as the cause of diseases classified elsewhere; R42 Dizziness and giddiness; R53.1 Weakness; I10 Essential (primary) hypertension
CPT/HCPCS: 71046; 81003; 85025; 87086; 87804; 99212; 99214; G0463

== ENCOUNTER 2023-09-27 17:06 | Emergency (ER) | payer MEDICARE, OTHER, SELFPAY ==
[2023-09-27 17:08] VITALS: BP 138/92; PULSE 70; RESP 16; TEMP 36.6; O2SAT 98; BMI 27.9
--- NOTE | 2023-09-27 17:19 | PC.NURSE ---
Dr. Mann at [facility] for pt eval
--- NOTE | 2023-09-27 17:26 | CT_ITS ---
PROCEDURE INFORMATION: Exam: CT Abdomen And Pelvis With Contrast Exam date and time: 09/27/2023 6:25 PM Age: 67 years old Clinical indication: Abdominal pain; Additional info: Rlq pain and fp TECHNIQUE: Imaging protocol: Computed tomography of the abdomen and pelvis with contrast. Radiation optimization: All CT scans at this facility use at least one of these dose optimization techniques: automated exposure control; mA and/or kV adjustment per patient size (includes targeted exams where dose is matched to clinical indication); or iterative reconstruction. Contrast material: ISOVUE; Contrast volume: 75 ml; Contrast route: IV; COMPARISON: CT ABDOMEN PELVIS W CON 09/02/2023 2:12 PM FINDINGS: Liver: Normal. No mass. Gallbladder and bile ducts: There are surgical clips within the gallbladder fossa. Pancreas: Normal. No ductal dilation. Spleen: Normal. No splenomegaly. Adrenal glands: Normal. No mass. Kidneys and ureters: Normal. No hydronephrosis. Stomach and bowel: Unremarkable. No obstruction. No mucosal thickening. Appendix: The appendix is not definitely identified, but there are no primary or secondary CT findings to suggest a diagnosis of acute appendicitis. Intraperitoneal space: Unremarkable. No free air. No significant fluid collection. Vasculature: Unremarkable. No abdominal aortic aneurysm. Lymph nodes: Unremarkable. No enlarged lymph nodes. Urinary bladder: Unremarkable as visualized. Reproductive: The uterus appears surgically absent. Bones/joints: Unremarkable. No acute fracture. Soft tissues: Normal. IMPRESSION: No acute findings.
--- NOTE | 2023-09-27 17:28 | HMH.EDGENADL ---
Discharge Plan Disposition Patient Disposition: Home, Self-Care Prescriptions Prescriptions: No Action hydrocodone-acetaminophen 7.5-325 mg tablet 1 tab PO QID 30 Days Qty: 120 0RF alendronate 70 mg tablet 70 mg PO WEEKLY pantoprazole 40 mg tablet,delayed release (DR/EC) 40 mg PO DAILY lisinopril 10 mg tablet 10 mg PO DAILY albuterol sulfate [ProAir HFA] 90 mcg/actuation HFA aerosol inhaler 2 puff inhalation Q6HP PRN (Reason: Shortness Of Breath Or Wheezing) spironolactone 25 mg tablet 25 mg PO DAILY loratadine 10 mg tablet 10 mg PO DAILY ondansetron 4 mg tablet,disintegrating 4 mg PO Q8H PRN (Reason: nausea and vomiting) 5 Days Qty: 12 0RF aspirin 81 mg tablet,delayed release (DR/EC) 81 mg PO DAILY Patient Comments: TAKE ONE TABLET BY MOUTH EVERY DAY FOR heart health fluoxetine 40 mg capsule 40 mg PO DAILY potassium chloride 10 mEq capsule, extended release 10 meq PO DAILY clonazepam [Klonopin] 0.5 mg tablet 0.5 mg PO TID sucralfate 1 gram Tablet 1 g PO ACHS 7 Days Qty: 28 0RF sennosides-docusate sodium [Stool Softener-Stimulant Laxat] 8.6-50 mg Tablet 1 tab PO BID PRN (Reason: constipation) 30 Days Qty: 60 0RF meclizine 25 mg tablet 25 mg PO TID PRN (Reason: dizziness) Qty: 30 0RF Referrals Follow up/Referrals: Librado Gilmore DO [Primary Care Provider] - See instructions Activity Restrictions/Add. Instructions Additional Instructions/Restrictions: Call your family doctor to establish care for this visit to the emergency department and schedule follow-up within 48 hours to ensure improvement. If you have any worsening of your condition or any other concerning signs or symptoms, return to the emergency department or your primary care doctor for further evaluation. Continue taking daily acid medication. You can add daily Maalox twice daily to help with abdominal pain. Clinical Impressions Clinical Impression: Abdominal pain Instructions Patient Instructions: DI for Acute Abdominal Pain Discharge ED Provider: Rajendra Mann General Adult HPI General Chief complaint: Abdominal Pain Stated complaint: abd pain, back pain Time Seen by Provider: 09/27/23 17:11 History of Present Illness HPI narrative: 67-year-old female history of hypertension, hyperlipidemia, Crohn's disease status post numerous abdominal surgeries, hiatal hernia, PUD/gastritis, cholecystectomy, appendectomy, recent abnormal colonoscopy presenting with multiple complaints. Patient states that she think she is dehydrated. She has chronic diarrhea due to her Crohn's disease, but states she thinks it is in remission. Was recently admitted to the hospital for colonoscopy and states that since that time, she has had right lower quadrant pain/right flank pain. No dysuria or hematuria. Pain is intermittent, moderate to severe, does not radiate. No fevers or chills. Patient states that she was told to mention that she has had protein and white blood cells in her urine the next time she sees a doctor. Has not taken any medications for this pain. No other complaints at this time Related Data Home Medications Medication Instructions Recorded Confirmed albuterol sulfate 90 mcg/actuation 2 puff inhalation Q6HP PRN 05/15/23 09/11/23 aerosol inhaler (ProAir HFA) Shortness Of Breath Or Wheezing alendronate 70 mg tablet 70 mg PO WEEKLY Bone Loss 05/15/23 09/11/23 lisinopril 10 mg tablet 10 mg PO DAILY High Blood Pressure 05/15/23 09/11/23 loratadine 10 mg tablet 10 mg PO DAILY Allergy Symptoms 05/15/23 09/11/23 pantoprazole 40 mg tablet,delayed 40 mg PO DAILY GERD 05/15/23 09/11/23 release spironolactone 25 mg tablet 25 mg PO DAILY Fluid 05/15/23 09/11/23 aspirin 81 mg tablet,delayed 81 mg PO DAILY Heart Disease 09/03/23 09/11/23 release clonazepam 0.5 mg tablet (Klonopin) 0.5 mg PO TID Anxiety 09/03/23 09/11/23 fluoxetine 40 mg capsule 40 mg PO DAILY Anxiety 09/03/23 09/11/23 potassium chloride 10 mEq 10 meq PO DAILY Supplement 09/03/23 09/11/23 capsule,extended release Previous Rx's Medication Instructions Recorded ondansetron 4 mg disintegrating 4 mg PO Q8H PRN nausea and 07/27/23 tablet vomiting 5 days #12 tabs sennosides 8.6 mg-docusate sodium 1 tab PO BID PRN constipation 30 09/05/23 50 mg tablet (Stool days #60 tabs Softener-Stimulant Laxative) sucralfate 1 gram tablet 1 g PO ACHS 7 days #28 tabs 09/05/23 hydrocodone 7.5 mg-acetaminophen 1 tab PO QID Back Pain 30 days 09/07/23 325 mg tablet #120 tabs meclizine 25 mg tablet 25 mg PO TID PRN dizziness #30 tabs 09/22/23 Allergies Allergy/AdvReac Type Severity Reaction Status Date / Time cephalexin [From Keflex] Allergy Severe Difficulty Verified 09/22/23 11:16 Breathing prochlorperazine Allergy Severe Swelling Verified 09/22/23 11:16 [PROCHLORPERAZINE] of Lip/Tongue/Throat codeine [CODEINE] Allergy Unknown VOMITING / Verified 09/22/23 11:16 NAUSEA prednisone [PREDNISONE] Allergy Unknown BP ISSUES Verified 09/22/23 11:16 promethazine [From PHENERGAN] Allergy Unknown Unknown Verified 09/22/23 11:16 allergy reaction metoclopramide [From Reglan] Allergy Nausea Verified 09/22/23 11:16 [facility] Disclaimer: The information contained in this section may have been updated after the patient was seen, as this information can be updated by other users. Medical History Allergies Anxiety Bilateral lower extremity edema Chest pain Cholecystectomy planned Depression Dyspnea Edema History of anemia HTN (hypertension) Hx of Crohn's disease Insomnia Knee effusion, right Osteoporosis Pneumonia Positive D dimer Sinus bradycardia Urinary tract infection Surgical History H/O oral surgery H/O total hysterectomy History of appendectomy History of arthroscopy of right knee History of esophagogastroduodenoscopy (EGD) History of intestinal surgery Family History Other Cancer Heart attack Social History Smoking Status: Never smoker second hand exposure: No alcohol intake: never substance use type: denies use current occupational status: disabled Travel in the last 8 weeks: None household members: none housing: apartment number of children: 2 current occupational exposures/hazards: No caffeine: Yes ROS Obtained: Yes All systems reviewed & no additional complaints except as documented Physical Exam General General appearance: alert and in no apparent distress Head Head exam: atraumatic and normocephalic Eye Eye exam: Present normal appearance, PERRL and EOMI ENT ENT exam: Present mucous membranes moist Neck Neck exam: Present normal inspection, full ROM and trachea midline Respiratory Respiratory exam: Absent respiratory distress, wheezes, stridor, accessory muscle use or prolonged expiratory phase Cardiovascular Cardiovascular exam: Present normal rhythm Abdominal Exam Abdominal exam: Present soft and tenderness; Absent distention, guarding, rebound or rigidity Abdominal tenderness: Present suprapubic and mild Extremities Exam Extremities exam: Absent edema Back Exam Back exam: Absent CVA tenderness (R) or CVA tenderness (L) Neurological Exam Neurological exam: Present alert, oriented X3, CN II-XII intact and normal gait; Absent motor sensory deficit Skin Skin exam: Present warm and dry; Absent diaphoresis or erythema Medical Decision Making Medical Records Medical records reviewed: Yes I reviewed the patient's medical records. Grant Inquiry Pt receiving controlled substance: No Grant was queried for this patient: No Vital Signs: 09/27/23 17:08 09/27/23 18:12 09/27/23 18:36 Temperature 97.8 F Temperature Source Oral Pulse Rate 59 L 56 L Pulse Rate [Right Radial] 70 Respiratory Rate 16 Blood Pressure 114/63 135/71 Blood Pressure [Right Arm] 138/92 H Blood Pressure Mean 85 Blood Pressure Mean [Right Arm] 107 Blood Pressure Source [Right Arm] Automatic Cuff Blood Pressure Position [Right Arm] Sitting 02 Sat by Pulse Oximetry 98 96 99 Oxygen Delivery Method Room Air Room Air Room Air 09/27/23 19:30 09/27/23 20:00 09/27/23 20:56 Temperature 97.8 F Temperature Source Oral Pulse Rate 53 L 51 L 61 Pulse Rate [Right Radial] Respiratory Rate 16 Blood Pressure 134/82 166/85 H 154/78 H Blood Pressure [Right Arm] Blood Pressure Mean Blood Pressure Mean [Right Arm] Blood Pressure Source [Right Arm] Blood Pressure Position [Right Arm] 02 Sat by Pulse Oximetry 98 98 Oxygen Delivery Method Lab Data Lab Results 09/27/23 17:30: Urine Color Yellow, Urine Appearance Clear, Urine pH 5.5, Ur Specific Vaughn >= 1.030, Urine Protein Trace, Urine Glucose (UA) Negative, Urine Ketones Negative, Urine Blood Negative, Urine Nitrate Negative, Urine Bilirubin 1+ A, Urine Urobilinogen 1.0, Ur Leukocyte Esterase Negative, Urine RBC Occasional, Urine WBC Occasional, Ur Squamous Epith Cells Occasional, Calcium Oxalate Crystal 1+, Urine Bacteria Trace 09/27/23 17:48: WBC 6.5, RBC 3.69 L, Hgb 10.5 L, Hct 32.1 L, MCV 87.2, MCH 28.4, MCHC 32.6, RDW 15.5, Plt Count 268, MPV 10.7 H, Neut % (Auto) 48.5, Lymph % (Auto) 40.0, Greenlee % (Auto) 5.4, Eos % (Auto) 5.6, Baso % (Auto) 0.4, Neut # (Auto) 3.2, Lymph # (Auto) 2.6, Greenlee # (Auto) 0.4, Eos # (Auto) 0.4, Baso # (Auto) 0.0, Sodium 143, Potassium 3.4 L, Chloride 109 H, Carbon Dioxide 30, Anion Gap 7.4, BUN 19 H, Creatinine 0.80, Estimated Creat Clear 64, Estimated GFR 72, Est GFR ( Amer) 87, Glucose 107 H, Calcium 8.8, Total Bilirubin 0.2, AST 29, ALT 18, Alkaline Phosphatase 52, Total Protein 6.8, Albumin 4.0, Globulin 2.8, Albumin/Globulin Ratio 1.4, Lipase 134 09/27/23 17:48 09/27/23 17:48 Orders (Tests/Meds): ED MEDICATIONS Discontinued Medications Generic Name Dose Route Start Last Admin Trade Name Dylon PRN Reason Stop Dose Admin Acetaminophen 1,000 mg 09/27/23 17:23 09/27/23 18:01 Acetaminophen 1,000mg/100ml Vial IV 09/27/23 17:24 1,000 mg ONCE ONE Administration Belladonna Alkaloids 60 ml 09/27/23 17:23 09/27/23 18:09 Belladonna Alkaloids 60 Ml Ml PO 09/27/23 17:24 60 ml ONCE ONE Administration Sodium Chloride 1,000 mls @ 999 mls/hr 09/27/23 17:23 09/27/23 18:03 Sod Chlor 0.9% 1000ml Bag IV 09/27/23 18:23 999 mls/hr .Q1H1M ONE Administration Iopamidol 75 ml 09/27/23 18:19 09/27/23 18:27 Iopamidol-370 (76%);100ml Bottle IV 09/27/23 18:20 75 ml ONCE ONE Administration Iopamidol 75 ml 09/27/23 18:26 09/27/23 18:27 Iopamidol-370 (76%);100ml Bottle IV 09/27/23 18:27 Not Given ONCE ONE Ketorolac Tromethamine 15 mg 09/27/23 20:45 09/27/23 20:55 Ketorolac 30mg/Ml Vial IV 09/27/23 20:46 15 mg ONCE ONE Administration Sodium Chloride 10 ml 09/27/23 18:26 09/27/23 18:27 Sodium Chloride 0.9% 10ml Syr (Rad Only) IV 09/27/23 18:27 10 ml ONCE ONE Administration ORDERS Category Date Time Status CT abdomen pelvis w con Stat Cat Scan 09/27/23 17:26 Completed Complete Blood Count Auto Diff Stat Lab 09/27/23 17:48 Completed Comprehensive Metabolic Panel Stat Lab 09/27/23 17:48 Completed Lipase Stat Lab 09/27/23 17:48 Completed Urinalysis and Microscopic Stat Lab 09/27/23 17:30 Completed Medical Decision Narrative: 67-year-old female history of hypertension, hyperlipidemia, Crohn's disease status post numerous abdominal surgeries, hiatal hernia, PUD/gastritis, cholecystectomy, appendectomy, recent abnormal colonoscopy presenting with multiple complaints. Patient states that she think she is dehydrated. She has chronic diarrhea due to her Crohn's disease, but states she thinks it is in remission. Was recently admitted to the hospital for colonoscopy and states that since that time, she has had right lower quadrant pain/right flank pain. No dysuria or hematuria. Pain is intermittent, moderate to severe, does not radiate. No fevers or chills. Patient states that she was told to mention that she has had protein and white blood cells in her urine the next time she sees a doctor. Has not taken any medications for this pain. No other complaints at this juan. History was obtained via conversation with patient. On arrival, patient hemodynamically stable, alert, oriented x4, appropriate, GCS 15, moving all extremities spontaneously, pupils equal and reactive to light. Full physical exam performed and significant for well-appearing woman in no acute distress. Abdomen is soft, mildly tender in suprapubic area with no overlying skin changes. No evidence of peritonitis. No flank tenderness. No evidence of hernia. No pulsatile mass, no evidence of neurovascular deficits. Differential includes bowel obstruction, Crohn's disease flare, PUD, gastritis, enteritis, gastroenteritis, pancreatitis, SBO, colitis, diverticulitis, nephrolithiasis, UTI, cholecystitis, appendicitis, hepatitis, among others. Patient was given IV Toradol, IV Tylenol, GI cocktail for symptomatic management and correction of underlying abnormalities. Workup independently interpreted and significant for nonactionable CBC. CMP with nonactionable findings including LFTs. Lipase negative. Urinalysis with some protein, but no blood, leukocyte Estrace, or signs of infection. CT abdomen pelvis without acute intra-abdominal pathology. See radiology read for full review of final results. On reevaluation, patient still having pain, this is 1 Toradol was administered. Patient asking for opiate medication, it was explained that in the setting of negative findings and chronic pain with history of pain medication usage, it would be inappropriate at this time, patient voiced her understanding. Given patient presentation, workup, history, this most likely represents acute on chronic abdominal pain. Because patient at baseline without signs or symptoms of clinical decompensation, deemed appropriate for discharge. Results were relayed to patient who voiced understanding and were agreeable to outpatient management and follow up. At the time of discharge the patient was hemodynamically stable, tolerating PO, and mobilizing appropriately. Critical Care Critical Care Time Critical Care Time: No
[2023-09-27 17:41] LABS: Microscopic, Urine URINE MICROSCOPIC (MICROSCOPIC)
[2023-09-27] MEDS: ACETAMINOPHEN 1,000MG/100ML VIAL 1000 MG IV (18:01)
[2023-09-27 18:02] LABS: Basophils % 0.4 % (0.1-2.0); Eosinophils # 0.4 K/mm3 (0.0-0.4); Eosinophils % 5.6 % (0.1-12.0); Hematocrit 32.1 % (37.0-47.0); Hemoglobin 10.5 g/dL (12.2-16.2); Lymphocytes # 2.6 K/mm3 (0.7-4.5); Mean Corpuscular HGB Conc 32.6 g/dL (31.8-35.4); Mean Corpuscular Hemoglobin 28.4 pg (27.0-31.2); Mean Corpuscular Volume 87.2 fl (81-99); Mean Platelet Volume 10.7 fl (7.4-10.4); Monocytes # 0.4 K/mm3 (0.1-1.0); Monocytes % 5.4 % (1.7-9.3); Neutrophils # 3.2 K/mm3 (1.8-7.8); Neutrophils % 48.5 % (37.0-80.0); Platelet Count 268 K/mm3 (142-424); Red Blood Count 3.69 M/mm3 (4.20-5.40); Red Cell Distribution Width 15.5 % (11.5-17.5); White Blood Count 6.5 K/mm3 (4.8-10.8)
[2023-09-27] MEDS: 0.9 % SODIUM CHLORIDE 1000ML 1,000 ML 999 ML IV (18:03)
[2023-09-27 18:09] LABS: Alanine Aminotransferase 18 U/L (12-78); Albumin/Globulin Ratio 1.4 (1.1-1.8); Alkaline Phosphatase 52 U/L (38-126); Anion Gap 7.4 mEq/L (5-15); Aspartate Amino Transferase 29 U/L (14-36); Bilirubin,Total 0.2 mg/dl (0.2-1.3); Blood Urea Nitrogen 19 mg/dl (7-17); Calcium 8.8 mg/dl (8.4-10.2); Carbon Dioxide 30 mmol/L (22.0-30.0); Chloride 109 mmol/L (98-107); Creatinine Clearance Estimated 64 mL/min (50-200); Estimated Glomerular Filt Rate 72 ml/min (>60); GFR (African American) 87 ML/MIN (>60); Globulin 2.8 g/dL (1.3-3.2); Glucose 107 mg/dl (74-100); Lipase 134 U/L (23-300); Potassium 3.4 mmoL/L (3.5-5.1); Sodium 143 mmol/L (136-145); Total Protein,Serum 6.8 g/dl (6.3-8.2)
[2023-09-27] MEDS: BELLADONNA ALKALOIDS 60 ML ML PO (18:09)
[2023-09-27 18:12] VITALS: BP 114/63; PULSE 59; O2SAT 96
--- NOTE | 2023-09-27 18:19 | PC.NURSE ---
PT TO CT
[2023-09-27 18:27] LABS: Appearance,Urine CLEAR (Clear); Blood, Urine Negative (Negative); Color,Urine YELLOW (Yellow); Glucose,Urine (UA) Negative (Negative); Ketones,Urine Negative (Negative); Leukocyte Esterase,Urine Negative (Negative); Nitrate,Urine Negative (Negative); PH,Urine 5.5 (5.0-8.5); Protein,Urine TRACE (Negative); Specific Gravity, Urine >= 1.030 (1.005-1.030)
[2023-09-27] MEDS: SODIUM CHLORIDE 0.9% 10ML SYR (RAD ONLY) 10 ML IV (18:27)
[2023-09-27] MEDS: IOPAMIDOL-370 (76%);100ML BOTTLE 75 ML IV (18:27)
[2023-09-27 18:28] LABS: Bilirubin,Urine 1+ (Negative)
[2023-09-27 18:36] VITALS: BP 135/71; PULSE 56; O2SAT 99
[2023-09-27 18:44] LABS: Bacteria,Urine Trace /lpf; Calcium Oxalate Crystals,Urine 1+ /lpf; RBC,Urine Occasional #/hpf (0-3); Squamous Epithelial Cell,Urine Occasional #/hpf (0-5); WBC,Urine Occasional #/hpf (0-3)
[2023-09-27 19:30] VITALS: BP 134/82; PULSE 53; O2SAT 98
[2023-09-27 20:00] VITALS: BP 166/85; PULSE 51; O2SAT 98
[2023-09-27] MEDS: KETOROLAC 30MG/ML VIAL 15 MG IV (20:55)
[2023-09-27 20:56] VITALS: BP 154/78; PULSE 61; RESP 16; TEMP 36.6; O2SAT 99
== END 2023-09-27 21:00 | disposition home or self-care (01) ==
PROVIDERS: Emergency Provider Emergency Medicine; PCP Internal Medicine
DX: R10.31 Right lower quadrant pain (principal); M54.59 Other low back pain; E87.6 Hypokalemia; I10 Essential (primary) hypertension; E78.5 Hyperlipidemia, unspecified; Z87.19 Personal history of other diseases of the digestive system
CPT/HCPCS: 74177; 80053; 81001; 83690; 85025; 96361; 96374; 96375; 99285; J0131; Q9967

== ENCOUNTER 2023-09-29 12:32 | Emergency (ER) | payer MEDICARE, OTHER, SELFPAY ==
[2023-09-29 12:34] VITALS: BP 112/63; PULSE 59; RESP 16; TEMP 36.6; O2SAT 98; BMI 27.9
[2023-09-29 13:00] VITALS: BP 92/60; PULSE 57; O2SAT 98
--- NOTE | 2023-09-29 13:05 | ED_ITS ---
Discharge Plan Disposition Patient Disposition: Home, Self-Care Condition: Good Prescriptions Prescriptions: No Action hydrocodone-acetaminophen 7.5-325 mg tablet 1 tab PO QID 30 Days Qty: 120 0RF alendronate 70 mg tablet 70 mg PO WEEKLY pantoprazole 40 mg tablet,delayed release (DR/EC) 40 mg PO DAILY lisinopril 10 mg tablet 10 mg PO DAILY albuterol sulfate [ProAir HFA] 90 mcg/actuation HFA aerosol inhaler 2 puff inhalation Q6HP PRN (Reason: Shortness Of Breath Or Wheezing) spironolactone 25 mg tablet 25 mg PO DAILY loratadine 10 mg tablet 10 mg PO DAILY ondansetron 4 mg tablet,disintegrating 4 mg PO Q8H PRN (Reason: nausea and vomiting) 5 Days Qty: 12 0RF aspirin 81 mg tablet,delayed release (DR/EC) 81 mg PO DAILY Patient Comments: TAKE ONE TABLET BY MOUTH EVERY DAY FOR heart health fluoxetine 40 mg capsule 40 mg PO DAILY potassium chloride 10 mEq capsule, extended release 10 meq PO DAILY clonazepam [Klonopin] 0.5 mg tablet 0.5 mg PO TID sucralfate 1 gram Tablet 1 g PO ACHS 7 Days Qty: 28 0RF sennosides-docusate sodium [Stool Softener-Stimulant Laxat] 8.6-50 mg Tablet 1 tab PO BID PRN (Reason: constipation) 30 Days Qty: 60 0RF meclizine 25 mg tablet 25 mg PO TID PRN (Reason: dizziness) Qty: 30 0RF Referrals Follow up/Referrals: Librado Gilmore DO [Primary Care Provider] - See instructions Activity Restrictions/Add. Instructions Additional Instructions/Restrictions: You were evaluated in the ER. Your labs are reassuring. Drink plenty of water at home. Continue taking home medications as previously prescribed including your Zofran. Make an appointment with Dr. Gilmore for reevaluation in 2 days. Return to the ER with new, worsening, or otherwise concerning symptoms. Clinical Impressions Clinical Impression: Abdominal pain Qualifiers: Abdominal location: lower abdomen, unspecified Qualified Code(s): R10.30 - Lower abdominal pain, unspecified Instructions Patient Instructions: DI for Diarrhea and Traveler's Diarrhea -- Adult, DI for Diarrhea and Traveler's Diarrhea -- Child, DI for Nausea -- Adult, DI for Nausea -- Child Discharge ED Provider: Catrachita Luo General Adult HPI General Chief complaint: Nausea/Vomiting/Diarrhea Stated complaint: weakness, stomach pain Time Seen by Provider: 09/29/23 12:53 Mode of Arrival: Ambulatory Source of Information: Patient Limitations: No Limitations Description of Symptoms (Recalled from ER Triage Doc. by RN): Patient reports ongoing vomiting, diarrhea and weakness. States she is in a lot of pain. History of Present Illness HPI narrative: 67-year-old female who is well-known to this emergency department with 4 visits in the last month including today for similar chronic complaints of abdominal pain presents to the ER with abdominal pain. Patient was evaluated for the identical complaint 2 days ago and per my review of recent note was also complaining of right lower quadrant abdominal pain. Patient states she took Zofran prior to eating this morning but had emesis after eating. She has only had 1 episode of emesis today. She states she has a history of Crohn's so she frequently has diarrhea. She denies black or tarry stools, she denies bilious or bloody vomiting. Patient also states she is worried about the protein that was in her urine because she has a history of kidney dysfunction. She is asking for pain medications but is already on opioid medications at home. Related Data Home Medications Medication Instructions Recorded Confirmed albuterol sulfate 90 mcg/actuation 2 puff inhalation Q6HP PRN 05/15/23 09/11/23 aerosol inhaler (ProAir HFA) Shortness Of Breath Or Wheezing alendronate 70 mg tablet 70 mg PO WEEKLY Bone Loss 05/15/23 09/11/23 lisinopril 10 mg tablet 10 mg PO DAILY High Blood Pressure 05/15/23 09/11/23 loratadine 10 mg tablet 10 mg PO DAILY Allergy Symptoms 05/15/23 09/11/23 pantoprazole 40 mg tablet,delayed 40 mg PO DAILY GERD 05/15/23 09/11/23 release spironolactone 25 mg tablet 25 mg PO DAILY Fluid 05/15/23 09/11/23 aspirin 81 mg tablet,delayed 81 mg PO DAILY Heart Disease 09/03/23 09/11/23 release clonazepam 0.5 mg tablet (Klonopin) 0.5 mg PO TID Anxiety 09/03/23 09/11/23 fluoxetine 40 mg capsule 40 mg PO DAILY Anxiety 09/03/23 09/11/23 potassium chloride 10 mEq 10 meq PO DAILY Supplement 09/03/23 09/11/23 capsule,extended release Previous Rx's Medication Instructions Recorded ondansetron 4 mg disintegrating 4 mg PO Q8H PRN nausea and 07/27/23 tablet vomiting 5 days #12 tabs sennosides 8.6 mg-docusate sodium 1 tab PO BID PRN constipation 30 09/05/23 50 mg tablet (Stool days #60 tabs Softener-Stimulant Laxative) sucralfate 1 gram tablet 1 g PO ACHS 7 days #28 tabs 09/05/23 hydrocodone 7.5 mg-acetaminophen 1 tab PO QID Back Pain 30 days 09/07/23 325 mg tablet #120 tabs meclizine 25 mg tablet 25 mg PO TID PRN dizziness #30 tabs 09/22/23 Allergies Allergy/AdvReac Type Severity Reaction Status Date / Time cephalexin [From Keflex] Allergy Severe Difficulty Verified 09/22/23 11:16 Breathing prochlorperazine Allergy Severe Swelling Verified 09/22/23 11:16 [PROCHLORPERAZINE] of Lip/Tongue/Throat codeine [CODEINE] Allergy Unknown VOMITING / Verified 09/22/23 11:16 NAUSEA prednisone [PREDNISONE] Allergy Unknown BP ISSUES Verified 09/22/23 11:16 promethazine [From PHENERGAN] Allergy Unknown Unknown Verified 09/22/23 11:16 allergy reaction metoclopramide [From Reglan] Allergy Nausea Verified 09/22/23 11:16 [facility] Disclaimer: The information contained in this section may have been updated after the patient was seen, as this information can be updated by other users. Medical History Allergies Anxiety Bilateral lower extremity edema Chest pain Cholecystectomy planned Depression Dyspnea Edema History of anemia HTN (hypertension) Hx of Crohn's disease Insomnia Knee effusion, right Osteoporosis Pneumonia Positive D dimer Sinus bradycardia Urinary tract infection Surgical History H/O oral surgery H/O total hysterectomy History of appendectomy History of arthroscopy of right knee History of esophagogastroduodenoscopy (EGD) History of intestinal surgery Family History Other Cancer Heart attack Social History Smoking Status: Never smoker second hand exposure: No alcohol intake: never substance use type: denies use current occupational status: disabled Travel in the last 8 weeks: None household members: none housing: apartment number of children: 2 current occupational exposures/hazards: No caffeine: Yes ROS Obtained: Yes All systems reviewed & no additional complaints except as documented Constitutional Constitutional: Denies chills, Denies fever(s), Denies headache(s) and Denies weakness Eyes Eyes: Denies change in vision ENT Ears, Nose, Mouth, and Throat: Denies dizziness, Denies headache(s), Denies nasal congestion and Denies sore throat Cardiovascular Cardiovascular: Denies chest pain, Denies dyspnea and Denies leg edema Respiratory Respiratory: Denies cough and Denies dyspnea Gastrointestinal Gastrointestingal: Reports abdominal pain, diarrhea, nausea and vomiting; Denies constipation Genitourinary Female Genitourinary: Denies dysuria Musculoskeletal Musculoskeletal: Denies arthralgias, Denies myalgias, Denies numbness and Denies tingling Integumentary/Breasts Skin/Breast: Denies change in pigmentation Neurologic Neurologic: Denies dizziness, Denies headache(s), Denies numbness, Denies tingling and Denies weakness Physical Exam General General appearance: alert and in no apparent distress Head Head exam: atraumatic and normocephalic Eye Eye exam: Present PERRL and EOMI ENT ENT exam: Present mucous membranes moist Neck Neck exam: Present normal inspection and full ROM Chest Chest inspection: Present symmetric chest wall rise Respiratory Respiratory exam: Present normal lung sounds bilaterally; Absent respiratory distress, wheezes or stridor Cardiovascular Cardiovascular exam: Present regular rate and normal rhythm Abdominal Exam Abdominal exam: Present soft and tenderness (Patient endorses right lower quadrant tenderness when palpating her abdomen but was carrying on a conversation with me during the exam and told me afterwards that she had pain when I palpated there.); Absent distention, guarding or rebound Extremities Exam Extremities exam: Present full ROM Neurological Exam Neurological exam: Present alert and oriented X3; Absent motor sensory deficit Psychiatric Psychiatric exam: Present normal affect and normal mood Skin Skin exam: Present warm and dry Medical Decision Making Grant Inquiry Pt receiving controlled substance: No Vital Signs: 09/29/23 12:34 09/29/23 13:00 09/29/23 13:55 Temperature 97.9 F Temperature Source Oral Pulse Rate 57 L 46 L Pulse Rate [Radial] 59 L Respiratory Rate 16 Blood Pressure 92/60 L 103/54 L Blood Pressure [Right Arm] 112/63 Blood Pressure Mean 78 Blood Pressure Mean [Right Arm] 79 Blood Pressure Source [Right Arm] Automatic Cuff Blood Pressure Position [Right Arm] Sitting 02 Sat by Pulse Oximetry 98 98 95 Oxygen Delivery Method Room Air Room Air 09/29/23 14:01 09/29/23 14:30 Temperature Temperature Source Pulse Rate 42 L 46 L Pulse Rate [Radial] Respiratory Rate Blood Pressure 124/62 118/69 Blood Pressure [Right Arm] Blood Pressure Mean Blood Pressure Mean [Right Arm] Blood Pressure Source [Right Arm] Blood Pressure Position [Right Arm] 02 Sat by Pulse Oximetry 95 95 Oxygen Delivery Method Room Air Room Air Lab Data Lab Results 09/29/23 13:09: Urine Color Yellow, Urine Appearance Clear, Urine pH 6.0, Ur Specific Circle 1.025, Urine Protein Negative, Urine Glucose (UA) Negative, Urine Ketones Negative, Urine Blood Negative, Urine Nitrate Negative, Urine Bilirubin Negative, Urine Urobilinogen 0.2, Ur Leukocyte Esterase Negative, Urine RBC Occasional, Urine WBC Occasional, Ur Squamous Epith Cells 5-10, Urine Bacteria 1+, Urine Mucus 1+ 09/29/23 13:37: WBC 5.5, RBC 3.48 L, Hgb 9.9 L, Hct 30.4 L, MCV 87.5, MCH 28.6, MCHC 32.7, RDW 15.5, Plt Count 250, MPV 10.4, Neut % (Auto) 54.7, Lymph % (Auto) 34.9, [place] % (Auto) 5.5, Eos % (Auto) 4.6, Baso % (Auto) 0.2, Neut # (Auto) 3.0, Lymph # (Auto) 1.9, [place] # (Auto) 0.3, Eos # (Auto) 0.3, Baso # (Auto) 0.0, Sodium 140, Potassium 3.8, Chloride 110 H, Carbon Dioxide 30, Anion Gap 3.8 L, BUN 20 H, Creatinine 0.90, Estimated Creat Clear 64, Estimated GFR 62, Est GFR ( Amer) 76, Glucose 89, Calcium 8.7, Total Bilirubin 0.4, AST 26, ALT 17, Alkaline Phosphatase 50, Troponin I < 0.01, Total Protein 6.5, Albumin 3.8, Globulin 2.7, Albumin/Globulin Ratio 1.4 09/29/23 13:37 09/29/23 13:37 Orders (Tests/Meds): ED MEDICATIONS Discontinued Medications Generic Name Dose Route Start Last Admin Trade Name Dylon PRN Reason Stop Dose Admin Acetaminophen 1,000 mg 09/29/23 13:04 09/29/23 13:24 Acetaminophen 1,000mg/100ml Vial IV 09/29/23 13:05 1,000 mg ONCE ONE Administration Lactated Ringer's 1,000 mls @ 999 mls/hr 09/29/23 13:04 09/29/23 13:24 Lactated Ringer's 1000 Ml Bag IV 09/29/23 14:04 999 mls/hr .Q1H1M ONE Administration Ketorolac Tromethamine 15 mg 09/29/23 13:04 09/29/23 13:23 Ketorolac 30mg/Ml Vial IV 09/29/23 13:05 15 mg ONCE ONE Administration Ondansetron HCl 4 mg 09/29/23 13:04 09/29/23 13:23 Ondansetron 4mg/2ml Vial IV 09/29/23 13:05 4 mg ONCE ONE Administration ORDERS Category Date Time Status CBC w/Auto Diff [Complete Blood Count Auto Diff] Stat Lab 09/29/23 13:37 Completed CMP [Comprehensive Metabolic Panel] Stat Lab 09/29/23 13:37 Completed Trop I [Troponin I] Stat Lab 09/29/23 13:37 Completed Troponin I Q3H Lab 09/29/23 16:15 Ordered Troponin I Q3H Lab 09/29/23 19:15 Ordered Urinalysis and Microscopic Stat Lab 09/29/23 13:09 Completed ECG Request Stat Y 09/29/23 13:08 Ordered Medical Decision Narrative: In summary, this 67year old female presents to the emergency department today with abdominal pain. Comorbidities of current condition include history of Crohn's, hypertension, anemia, chronic low back pain already on home opioids which are all increasing patient's overall morbidity and will increase the difficulty of controlling her pain. On initial evaluation patient is hemodynamically stable, afebrile, she is able to carry on a full conversation with me including throughout my abdominal exam however after the exam told me she had pain in the right lower quadrant with palpation. She had no rebound or guarding, nonacute abdomen, cardiopulmonary exam reassuring. Differential diagnosis includes but is not limited to ACS though I have low suspicion for this, colitis which is likely present given patient's history of Crohn disease, I considered appendicitis however patient does not have significant pain in the right lower quadrant with palpation, no rebound or guarding, I considered kidney stone, pyelonephritis, urinary tract infection. Given patient had workup 48 hours ago for identical complaints including CT imaging that was reassuring, I am going to begin with conservative management including labs. If there are dramatic abnormalities compared to her workup 2 days ago I will then consider advanced imaging but at this time imaging is not necessary. Based on these concerns, I ordered CBC, CMP, EKG, troponin, urinalysis. ECG personally interpreted demonstrates sinus bradycardia, prolonged DC, no STEMI, normal axis. Similar to prior. Patient has history of asymptomatic bradycardia and remains asymptomatic today. Patient received IV Toradol and IV Tylenol for treatment. Given patient's history and already being on narcotic medications at home without acute findings different from what she has been evaluated for previously, I am not inclined to give narcotic medications in the ER and I have already discussed this with the patient. Labs personally reviewed demonstrate no leukocytosis, anemia slightly worse than 2 days prior, but patient remains asymptomatic, CMP with persistent mild prerenal azotemia, patient is already receiving IV fluids, hypokalemia that was present 2 days ago has improved. Stable liver enzymes, initial troponin undetectably low at less than 0.01, given the duration of patient's symptoms I do not believe she requires serial troponins at this time. UA negative for signs of infection. On reassessment patient continues to be stable, she has tolerated oral intake. She is appropriate for discharge at this time. Patient repeatedly did ask through the encounter for additional pain medications but we discussed the risks and benefits of narcotics and she was amenable to not receiving additional narcotics in the ER. Patient still only had received Toradol and IV Tylenol. Patient was given instructions on symptomatic management, follow up ins tructions, and return precautions for the emergency department. Patient indicated understanding and was discharged in stable condition. Critical Care Critical Care Time Critical Care Time: No
--- NOTE | 2023-09-29 13:08 | ECG_ITS ---
APPROVED REPORT Exam: Resting ECG HR:44 bpm ECG Measurements Heart Rate 44 AXES OH 225 P 50 QRSd 95 QRS 0 QT 491 T 46 QTc 443 Conclusion SINUS BRADYCARDIA WITH FIRST DEGREE AV BLOCK ABNORMAL ECG UNCONFIRMED REPORT Electronically signed by : Colin Durant MD 09/30/2023 08:15:10
[2023-09-29] MEDS: KETOROLAC 30MG/ML VIAL 15 MG IV (13:23)
[2023-09-29] MEDS: ONDANSETRON 4MG/2ML VIAL 4 MG IV (13:23)
[2023-09-29] MEDS: ACETAMINOPHEN 1,000MG/100ML VIAL 1000 MG IV (13:24)
[2023-09-29] MEDS: LACTATED RINGERS 1000ML 1,000 ML 999 ML IV (13:24)
[2023-09-29 13:25] LABS: Microscopic, Urine URINE MICROSCOPIC (MICROSCOPIC)
[2023-09-29 13:37] LABS: Appearance,Urine CLEAR (Clear); Bilirubin,Urine Negative (Negative); Blood, Urine Negative (Negative); Color,Urine YELLOW (Yellow); Glucose,Urine (UA) Negative (Negative); Ketones,Urine Negative (Negative); Leukocyte Esterase,Urine Negative (Negative); Nitrate,Urine Negative (Negative); Protein,Urine Negative (Negative); Specific Gravity, Urine 1.025 (1.005-1.030); Urobilinogen,Urine 0.2 EU/dl (0.2)
[2023-09-29 13:52] LABS: Basophils % 0.2 % (0.1-2.0); Eosinophils # 0.3 K/mm3 (0.0-0.4); Eosinophils % 4.6 % (0.1-12.0); Hematocrit 30.4 % (37.0-47.0); Hemoglobin 9.9 g/dL (12.2-16.2); Lymphocytes # 1.9 K/mm3 (0.7-4.5); Lymphocytes % 34.9 % (10-50); Mean Corpuscular HGB Conc 32.7 g/dL (31.8-35.4); Mean Corpuscular Hemoglobin 28.6 pg (27.0-31.2); Mean Corpuscular Volume 87.5 fl (81-99); Mean Platelet Volume 10.4 fl (7.4-10.4); Monocytes # 0.3 K/mm3 (0.1-1.0); Monocytes % 5.5 % (1.7-9.3); Neutrophils % 54.7 % (37.0-80.0); Platelet Count 250 K/mm3 (142-424); Red Blood Count 3.48 M/mm3 (4.20-5.40); Red Cell Distribution Width 15.5 % (11.5-17.5); White Blood Count 5.5 K/mm3 (4.8-10.8)
[2023-09-29 13:54] LABS: Chloride 110 mmol/L (98-107); Potassium 3.8 mmoL/L (3.5-5.1)
[2023-09-29 13:55] VITALS: BP 103/54; PULSE 46; O2SAT 95
[2023-09-29 13:56] LABS: RBC,Urine Occasional #/hpf (0-3); WBC,Urine Occasional #/hpf (0-3)
[2023-09-29 13:57] LABS: Bacteria,Urine 1+ /lpf; Mucus,Urine 1+ /lpf
[2023-09-29 13:57] LABS: Alanine Aminotransferase 17 U/L (12-78); Albumin Level 3.8 g/dl (3.5-5.0); Albumin/Globulin Ratio 1.4 (1.1-1.8); Alkaline Phosphatase 50 U/L (38-126); Aspartate Amino Transferase 26 U/L (14-36); Bilirubin,Total 0.4 mg/dl (0.2-1.3); Blood Urea Nitrogen 20 mg/dl (7-17); Calcium 8.7 mg/dl (8.4-10.2); Carbon Dioxide 30 mmol/L (22.0-30.0); Creatinine Clearance Estimated 64 mL/min (50-200); Estimated Glomerular Filt Rate 62 ml/min (>60); GFR (African American) 76 ML/MIN (>60); Globulin 2.7 g/dL (1.3-3.2); Glucose 89 mg/dl (74-100); Total Protein,Serum 6.5 g/dl (6.3-8.2)
[2023-09-29 14:01] VITALS: BP 124/62; PULSE 42; O2SAT 95
[2023-09-29 14:18] LABS: Troponin I < 0.01 ng/ml (0.00-0.034)
[2023-09-29 14:30] VITALS: BP 118/69; PULSE 46; O2SAT 95
[2023-09-29 14:45] LABS: Anion Gap 3.8 mEq/L (5-15); Sodium 140 mmol/L (136-145)
[2023-09-29 15:09] VITALS: BP 118/69; PULSE 46; RESP 16; TEMP 36.6; O2SAT 95
== END 2023-09-29 15:18 | disposition home or self-care (01) ==
PROVIDERS: Emergency Provider Emergency Medicine; PCP Internal Medicine
DX: R10.30 Lower abdominal pain, unspecified (principal); I44.0 Atrioventricular block, first degree; R00.1 Bradycardia, unspecified; I10 Essential (primary) hypertension; Z87.19 Personal history of other diseases of the digestive system
CPT/HCPCS: 80053; 81001; 84484; 85025; 93005; 96361; 96374; 96375; 99284; J0131; J2405

== ENCOUNTER 2023-10-01 17:22 | Emergency (ER) | payer MEDICARE, OTHER, SELFPAY ==
[2023-10-01 17:24] VITALS: BP 130/73; PULSE 46; RESP 18; TEMP 36.7; O2SAT 95; BMI 26.9
--- NOTE | 2023-10-01 17:44 | ED_ITS ---
Discharge Plan Disposition Patient Disposition: Home, Self-Care Prescriptions Prescriptions: No Action hydrocodone-acetaminophen 7.5-325 mg tablet 1 tab PO QID 30 Days Qty: 120 0RF alendronate 70 mg tablet 70 mg PO WEEKLY pantoprazole 40 mg tablet,delayed release (DR/EC) 40 mg PO DAILY lisinopril 10 mg tablet 10 mg PO DAILY albuterol sulfate [ProAir HFA] 90 mcg/actuation HFA aerosol inhaler 2 puff inhalation Q6HP PRN (Reason: Shortness Of Breath Or Wheezing) spironolactone 25 mg tablet 25 mg PO DAILY loratadine 10 mg tablet 10 mg PO DAILY ondansetron 4 mg tablet,disintegrating 4 mg PO Q8H PRN (Reason: nausea and vomiting) 5 Days Qty: 12 0RF aspirin 81 mg tablet,delayed release (DR/EC) 81 mg PO DAILY Patient Comments: TAKE ONE TABLET BY MOUTH EVERY DAY FOR heart health fluoxetine 40 mg capsule 40 mg PO DAILY potassium chloride 10 mEq capsule, extended release 10 meq PO DAILY clonazepam [Klonopin] 0.5 mg tablet 0.5 mg PO TID sucralfate 1 gram Tablet 1 g PO ACHS 7 Days Qty: 28 0RF sennosides-docusate sodium [Stool Softener-Stimulant Laxat] 8.6-50 mg Tablet 1 tab PO BID PRN (Reason: constipation) 30 Days Qty: 60 0RF meclizine 25 mg tablet 25 mg PO TID PRN (Reason: dizziness) Qty: 30 0RF Referrals Follow up/Referrals: Librado Gilmore DO [Primary Care Provider] - See instructions Activity Restrictions/Add. Instructions Additional Instructions/Restrictions: These follow-up with your primary care doctor for your chronic pain as previously discussed. You are offered a referral to our pain specialist Dr. Weber however you opted to follow-up with your primary care doctor and to see how things go. No emergent medical condition identified today. Specifically no evidence of any upper gastrointestinal bleed. Clinical Impressions Clinical Impression: Chronic abdominal pain, Nausea & vomiting Instructions Patient Instructions: DI for Gastrointestinal Bleeding Discharge ED Provider: Madison Barroso General Adult HPI General Chief complaint: GI Bleed Stated complaint: vomitting, black vomit Time Seen by Provider: 10/01/23 17:29 History of Present Illness HPI narrative: Is a very well-known to our emergency department 67-year-old female presenting today with recurrent and chronic symptoms including abdominal pain and nausea and vomiting. States she has a history of Crohn's disease and had surgical intervention in the early but has not had any since that time. Still having bowel movements and passing gas. States that her emesis has been dark in nature. Was here just 2 days ago with the same symptoms had a normal CT scan and labs. She denies any significant difference in her symptoms than what she h ad 2 days ago. Related Data Home Medications Medication Instructions Recorded Confirmed albuterol sulfate 90 mcg/actuation 2 puff inhalation Q6HP PRN 05/15/23 09/11/23 aerosol inhaler (ProAir HFA) Shortness Of Breath Or Wheezing alendronate 70 mg tablet 70 mg PO WEEKLY Bone Loss 05/15/23 09/11/23 lisinopril 10 mg tablet 10 mg PO DAILY High Blood Pressure 05/15/23 09/11/23 loratadine 10 mg tablet 10 mg PO DAILY Allergy Symptoms 05/15/23 09/11/23 pantoprazole 40 mg tablet,delayed 40 mg PO DAILY GERD 05/15/23 09/11/23 release spironolactone 25 mg tablet 25 mg PO DAILY Fluid 05/15/23 09/11/23 aspirin 81 mg tablet,delayed 81 mg PO DAILY Heart Disease 09/03/23 09/11/23 release clonazepam 0.5 mg tablet (Klonopin) 0.5 mg PO TID Anxiety 09/03/23 09/11/23 fluoxetine 40 mg capsule 40 mg PO DAILY Anxiety 09/03/23 09/11/23 potassium chloride 10 mEq 10 meq PO DAILY Supplement 09/03/23 09/11/23 capsule,extended release Previous Rx's Medication Instructions Recorded ondansetron 4 mg disintegrating 4 mg PO Q8H PRN nausea and 07/27/23 tablet vomiting 5 days #12 tabs sennosides 8.6 mg-docusate sodium 1 tab PO BID PRN constipation 30 09/05/23 50 mg tablet (Stool days #60 tabs Softener-Stimulant Laxative) sucralfate 1 gram tablet 1 g PO ACHS 7 days #28 tabs 09/05/23 hydrocodone 7.5 mg-acetaminophen 1 tab PO QID Back Pain 30 days 09/07/23 325 mg tablet #120 tabs meclizine 25 mg tablet 25 mg PO TID PRN dizziness #30 tabs 09/22/23 Allergies Allergy/AdvReac Type Severity Reaction Status Date / Time cephalexin [From Keflex] Allergy Severe Difficulty Verified 09/22/23 11:16 Breathing prochlorperazine Allergy Severe Swelling Verified 09/22/23 11:16 [PROCHLORPERAZINE] of Lip/Tongue/Throat codeine [CODEINE] Allergy Unknown VOMITING / Verified 09/22/23 11:16 NAUSEA prednisone [PREDNISONE] Allergy Unknown BP ISSUES Verified 09/22/23 11:16 promethazine [From PHENERGAN] Allergy Unknown Unknown Verified 09/22/23 11:16 allergy reaction metoclopramide [From Reglan] Allergy Nausea Verified 09/22/23 11:16 [facility] Disclaimer: The information contained in this section may have been updated after the patient was seen, as this information can be updated by other users. Medical History Allergies Anxiety Bilateral lower extremity edema Chest pain Cholecystectomy planned Depression Dyspnea Edema History of anemia HTN (hypertension) Hx of Crohn's disease Insomnia Knee effusion, right Osteoporosis Pneumonia Positive D dimer Sinus bradycardia Urinary tract infection Surgical History H/O oral surgery H/O total hysterectomy History of appendectomy History of arthroscopy of right knee History of esophagogastroduodenoscopy (EGD) History of intestinal surgery Family History Other Cancer Heart attack Social History Smoking Status: Unknown if ever smoked second hand exposure: No alcohol intake: never substance use type: denies use current occupational status: disabled Travel in the last 8 weeks: None household members: none housing: apartment number of children: 2 current occupational exposures/hazards: No caffeine: Yes ROS Obtained: Yes All systems reviewed & no additional complaints except as documented Physical Exam General General appearance: alert Respiratory Respiratory exam: Present normal lung sounds bilaterally Cardiovascular Cardiovascular exam: Present regular rate Abdominal Exam Abdominal exam: Present soft; Absent distention or tenderness Neurological Exam Neurological exam: Present alert Medical Decision Making Medical Records Medical records reviewed: Yes I reviewed the patient's medical records. Grant Inquiry Pt receiving controlled substance: No Vital Signs: 10/01/23 17:24 10/01/23 17:54 10/01/23 18:00 Temperature 98.0 F Temperature Source Oral Pulse Rate 48 L 44 L Pulse Rate [Left Radial] 46 L Respiratory Rate 18 Blood Pressure 130/73 133/74 Blood Pressure [Right Arm] 130/73 Blood Pressure Mean Blood Pressure Mean [Right Arm] 92 Blood Pressure Source [Right Arm] Automatic Cuff Blood Pressure Position [Right Arm] Sitting 02 Sat by Pulse Oximetry 95 96 95 Oxygen Delivery Method Room Air 10/01/23 18:30 10/01/23 19:00 Temperature Temperature Source Pulse Rate 44 L 50 L Pulse Rate [Left Radial] Respiratory Rate Blood Pressure 147/74 H 153/86 H Blood Pressure [Right Arm] Blood Pressure Mean 98 106 Blood Pressure Mean [Right Arm] Blood Pressure Source [Right Arm] Blood Pressure Position [Right Arm] 02 Sat by Pulse Oximetry 94 L 94 L Oxygen Delivery Method Lab Data Lab results reviewed: Yes I reviewed the patient's lab results. Lab Results 10/01/23 17:45: WBC 6.4, RBC 3.39 L, Hgb 9.6 L, Hct 28.9 L, MCV 85.2, MCH 28.5, MCHC 33.4, RDW 15.4, Plt Count 245, MPV 10.3, Neut % (Auto) 53.2, Lymph % (Auto) 35.2, Larue % (Auto) 5.8, Eos % (Auto) 5.2, Baso % (Auto) 0.5, Neut # (Auto) 3.4, Lymph # (Auto) 2.3, Larue # (Auto) 0.4, Eos # (Auto) 0.3, Baso # (Auto) 0.0, PT 10.7, INR 0.99, APTT 23.1, Sodium 140, Potassium 4.3, Chloride 109 H, Carbon Dioxide 32 H, Anion Gap 3.3 L, BUN 16, Creatinine 1.00, Estimated Creat Clear 61, Estimated GFR 55 L, Est GFR ( Amer) 67, Glucose 99, Calcium 8.6, Total Bilirubin 0.3, AST 28, ALT 18, Alkaline Phosphatase 42, Total Protein 6.3, Albumin 3.6, Globulin 2.7, Albumin/Globulin Ratio 1.3, Lipase 339 H 10/01/23 17:45 10/01/23 17:45 Orders (Tests/Meds): ED MEDICATIONS Discontinued Medications Generic Name Dose Route Start Last Admin Trade Name Dylon PRN Reason Stop Dose Admin Lactated Ringer's 1,000 mls @ 999 mls/hr 10/01/23 17:45 10/01/23 18:02 Lactated Ringer's 1000 Ml Bag IV 10/01/23 18:45 999 mls/hr .Q1H1M CEM Administration Morphine Sulfate 4 mg 10/01/23 17:41 10/01/23 18:02 Morphine 4mg/Ml Syringe IV 10/01/23 17:42 4 mg ONCE ONE Administration Ondansetron HCl 4 mg 10/01/23 17:41 10/01/23 18:02 Ondansetron 4mg/2ml Vial IV 10/01/23 17:42 4 mg ONCE ONE Administration ORDERS Category Date Time Status CBC w/Auto Diff [Complete Blood Count Auto Diff] Stat Lab 10/01/23 17:45 Completed CMP [Comprehensive Metabolic Panel] Stat Lab 10/01/23 17:45 Completed Lipase Stat Lab 10/01/23 17:45 Completed PT/PTT Stat Lab 10/01/23 17:45 Completed Medical Decision Narrative: 67-year-old female very well-known to our emergency department has had numerous CT scans in the past including just a few days ago. Will not repeat this today. She looks very well and at her baseline according to people who know her more regularly than I do. Will check basic blood work to make sure she has not had a significant evidence of GI bleed or coagulopathy. This is unlikely. Will give her pain medicine nausea medicine IV fluids and will reassess. Reassessment 7:26 PM patient appears very stable nontoxic labs unremarkable specifically no evidence of any upper gastrointestinal bleed. She specifically asked me to give her her opiate pain medications to cover her for a few days that she has been taking her prescribed medications at a higher dose than has been prescribed she has follow-up with her primary care doctor in a few days I also advised that she follow-up with her pain specialist which she deferred at the moment. I did not prescribe her any further opiate pain medications in the emergency department and suspect this is a chronic illness that led her to her visit today in the ED. She was discharged in stable condition and return precautions emphasized. Critical Care Critical Care Time Critical Care Time: No
[2023-10-01 17:54] VITALS: BP 130/73; PULSE 48; O2SAT 96
[2023-10-01 18:00] VITALS: BP 133/74; PULSE 44; O2SAT 95
[2023-10-01 18:00] LABS: Chloride 109 mmol/L (98-107); Sodium 140 mmol/L (136-145)
[2023-10-01 18:01] LABS: Potassium 4.3 mmoL/L (3.5-5.1)
[2023-10-01] MEDS: MORPHINE 4MG/ML SYRINGE 4 MG IV (18:02)
[2023-10-01] MEDS: LACTATED RINGERS 1000ML 1,000 ML 999 ML IV (18:02)
[2023-10-01] MEDS: ONDANSETRON 4MG/2ML VIAL 4 MG IV (18:02)
[2023-10-01 18:03] LABS: Alanine Aminotransferase 18 U/L (12-78); Albumin Level 3.6 g/dl (3.5-5.0); Albumin/Globulin Ratio 1.3 (1.1-1.8); Alkaline Phosphatase 42 U/L (38-126); Anion Gap 3.3 mEq/L (5-15); Aspartate Amino Transferase 28 U/L (14-36); Bilirubin,Total 0.3 mg/dl (0.2-1.3); Blood Urea Nitrogen 16 mg/dl (7-17); Calcium 8.6 mg/dl (8.4-10.2); Carbon Dioxide 32 mmol/L (22.0-30.0); Creatinine Clearance Estimated 61 mL/min (50-200); Estimated Glomerular Filt Rate 55 ml/min (>60); GFR (African American) 67 ML/MIN (>60); Globulin 2.7 g/dL (1.3-3.2); Glucose 99 mg/dl (74-100); Lipase 339 U/L (23-300); Total Protein,Serum 6.3 g/dl (6.3-8.2)
[2023-10-01 18:21] LABS: Activated Partial Thrombo Time 23.1 seconds (22.8-30.6); Basophils % 0.5 % (0.1-2.0); Eosinophils # 0.3 K/mm3 (0.0-0.4); Eosinophils % 5.2 % (0.1-12.0); Hematocrit 28.9 % (37.0-47.0); Hemoglobin 9.6 g/dL (12.2-16.2); INR 0.99 (0.9-1.1); Lymphocytes # 2.3 K/mm3 (0.7-4.5); Lymphocytes % 35.2 % (10-50); Mean Corpuscular HGB Conc 33.4 g/dL (31.8-35.4); Mean Corpuscular Hemoglobin 28.5 pg (27.0-31.2); Mean Corpuscular Volume 85.2 fl (81-99); Mean Platelet Volume 10.3 fl (7.4-10.4); Monocytes # 0.4 K/mm3 (0.1-1.0); Monocytes % 5.8 % (1.7-9.3); Neutrophils # 3.4 K/mm3 (1.8-7.8); Neutrophils % 53.2 % (37.0-80.0); Platelet Count 245 K/mm3 (142-424); Prothrombin Time 10.7 seconds (10.1-12.5); Red Blood Count 3.39 M/mm3 (4.20-5.40); Red Cell Distribution Width 15.4 % (11.5-17.5); White Blood Count 6.4 K/mm3 (4.8-10.8)
[2023-10-01 18:30] VITALS: BP 147/74; PULSE 44; O2SAT 94
[2023-10-01 19:00] VITALS: BP 153/86; PULSE 50; O2SAT 94
[2023-10-01 19:33] VITALS: BP 153/86; PULSE 50; RESP 50; TEMP 37.1; O2SAT 100
--- NOTE | 2023-10-01 19:37 | PC.NURSE ---
heplocked and discontinued port
== END 2023-10-01 19:37 | disposition home or self-care (01) ==
PROVIDERS: Emergency Provider Student in an Organized Health Care Education/Training Program; PCP Internal Medicine
DX: K50.918 Crohn's disease, unspecified, with other complication (principal); R11.2 Nausea with vomiting, unspecified; R10.9 Unspecified abdominal pain; I10 Essential (primary) hypertension; M81.8 Other osteoporosis without current pathological fracture
CPT/HCPCS: 80053; 83690; 85025; 85610; 85730; 96361; 96374; 96375; 99285; J1642; J2405

== ENCOUNTER 2023-10-07 15:47 | Emergency (ER) | payer MEDICARE, OTHER, SELFPAY ==
[2023-10-07 15:48] VITALS: BP 132/101; PULSE 85; RESP 16; TEMP 36.6; O2SAT 99; BMI 27.9
--- NOTE | 2023-10-07 16:06 | XR_ITS ---
PROCEDURE INFORMATION: Exam: XR Chest Exam date and time: 10/07/2023 4:09 PM Age: 67 years old Clinical indication: Other: Epigastric pain TECHNIQUE: Imaging protocol: Radiologic exam of the chest. Views: 1 view. COMPARISON: CR XR CHEST 2V 09/22/2023 11:53 AM FINDINGS: Tubes, catheters and devices: Infusion catheter with tip in the SVC stable in position. Lungs: Unremarkable. No consolidation. Pleural spaces: Unremarkable. No pleural effusion. No pneumothorax. Heart/Mediastinum: Unremarkable. No cardiomegaly. Bones/joints: Unremarkable. IMPRESSION: Stable chest x-ray with no acute disease.
--- NOTE | 2023-10-07 16:08 | PC.NURSE ---
DR MALLOY AT BEDSIDE
--- NOTE | 2023-10-07 16:19 | ED_ITS ---
Discharge Plan Disposition Patient Disposition: Home, Self-Care Prescriptions Prescriptions: New omeprazole 40 mg capsule,delayed release(DR/EC) 40 mg PO BID Qty: 60 2RF dicyclomine 20 mg tablet 20 mg PO BID Qty: 60 2RF Discontinued pantoprazole 40 mg tablet,delayed release (DR/EC) 40 mg PO DAILY No Action hydrocodone-acetaminophen 7.5-325 mg tablet 1 tab PO QID 30 Days Qty: 120 0RF alendronate 70 mg tablet 70 mg PO WEEKLY lisinopril 10 mg tablet 10 mg PO DAILY albuterol sulfate [ProAir HFA] 90 mcg/actuation HFA aerosol inhaler 2 puff inhalation Q6HP PRN (Reason: Shortness Of Breath Or Wheezing) spironolactone 25 mg tablet 25 mg PO DAILY loratadine 10 mg tablet 10 mg PO DAILY ondansetron 4 mg tablet,disintegrating 4 mg PO Q8H PRN (Reason: nausea and vomiting) 5 Days Qty: 12 0RF aspirin 81 mg tablet,delayed release (DR/EC) 81 mg PO DAILY Patient Comments: TAKE ONE TABLET BY MOUTH EVERY DAY FOR heart health fluoxetine 40 mg capsule 40 mg PO DAILY potassium chloride 10 mEq capsule, extended release 10 meq PO DAILY clonazepam [Klonopin] 0.5 mg tablet 0.5 mg PO TID sucralfate 1 gram Tablet 1 g PO ACHS 7 Days Qty: 28 0RF sennosides-docusate sodium [Stool Softener-Stimulant Laxat] 8.6-50 mg Tablet 1 tab PO BID PRN (Reason: constipation) 30 Days Qty: 60 0RF meclizine 25 mg tablet 25 mg PO TID PRN (Reason: dizziness) Qty: 30 0RF Referrals Follow up/Referrals: Librado Gilmore DO [Primary Care Provider] - See instructions Brenda Cramer APRN [Staff Physician] - See instructions Activity Restrictions/Add. Instructions Additional Instructions/Restrictions: Follow up with GI for further evaluation and diagnosis. Take 40 mg twice daily, this has been sent to your pharmacy. All taking dyclonine 20 mg twice daily. Call your family doctor to establish care for this visit to the emergency department and schedule follow-up within 48 hours to ensure improvement. If you have any worsening of your condition or any other concerning signs or symptoms, return to the emergency department or your primary care doctor for further evaluation. Clinical Impressions Clinical Impression: Abdominal pain Qualifiers: Abdominal location: epigastric Qualified Code(s): R10.13 - Epigastric pain Instructions Patient Instructions: DI for Diarrhea and Traveler's Diarrhea -- Adult, DI for Diarrhea and Traveler's Diarrhea -- Child, DI for Nausea -- Adult, DI for Nausea -- Child Discharge ED Provider: Rajendra Mann General Adult HPI General Chief complaint: Nausea/Vomiting/Diarrhea Stated complaint: vomiting,diarrhea Time Seen by Provider: 10/07/23 15:49 History of Present Illness HPI narrative: This is a very well-known 67-year-old female with multiple visits to the emergency department with history of hypertension, hyperlipidemia, Crohn's disease status post numerous abdominal surgeries, hiatal hernia, PUD/gastritis, cholecystectomy, appendectomy, recent abnormal colonoscopy presenting withAcute on chronic abdominal pain. Patient states that she has been having this pain for days which has been getting worse over weeks. She having diarrhea, nausea and vomiting, very little p.o. intake, periumbilical abdominal pain and cramping which is made better with bowel movements. Abdominal pain does not radiate, it is moderate to severe in intensity. Not associated with fevers, chills, unintended weight loss, urinary symptoms, skin discoloration, travel, substance abuse. States that she has largely been able to tolerate any p.o. intake and feels that she is dehydrated. Does not feel that her symptoms have been addressed properly with numerous visits to the emergency department. Scheduled a new appointment with a family doctor next week. Related Data Home Medications Medication Instructions Recorded Confirmed albuterol sulfate 90 mcg/actuation 2 puff inhalation Q6HP PRN 05/15/23 09/11/23 aerosol inhaler (ProAir HFA) Shortness Of Breath Or Wheezing alendronate 70 mg tablet 70 mg PO WEEKLY Bone Loss 05/15/23 09/11/23 lisinopril 10 mg tablet 10 mg PO DAILY High Blood Pressure 05/15/23 09/11/23 loratadine 10 mg tablet 10 mg PO DAILY Allergy Symptoms 05/15/23 09/11/23 spironolactone 25 mg tablet 25 mg PO DAILY Fluid 05/15/23 09/11/23 aspirin 81 mg tablet,delayed 81 mg PO DAILY Heart Disease 01/21/24 01/29/24 release clonazepam 0.5 mg tablet (Klonopin) 0.5 mg PO TID Anxiety 09/03/23 09/11/23 fluoxetine 40 mg capsule 40 mg PO DAILY Anxiety 09/03/23 09/11/23 potassium chloride 10 mEq 10 meq PO DAILY Supplement 09/03/23 09/11/23 capsule,extended release Previous Rx's Medication Instructions Recorded ondansetron 4 mg disintegrating 4 mg PO Q8H PRN nausea and 07/27/23 tablet vomiting 5 days #12 tabs sennosides 8.6 mg-docusate sodium 1 tab PO BID PRN constipation 30 09/05/23 50 mg tablet (Stool days #60 tabs Softener-Stimulant Laxative) sucralfate 1 gram tablet 1 g PO ACHS 7 days #28 tabs 09/05/23 hydrocodone 7.5 mg-acetaminophen 1 tab PO QID Back Pain 30 days 09/07/23 325 mg tablet #120 tabs meclizine 25 mg tablet 25 mg PO TID PRN dizziness #30 tabs 09/22/23 dicyclomine 20 mg tablet 20 mg PO BID #60 tabs 10/07/23 omeprazole 40 mg capsule,delayed 40 mg PO BID #60 caps 10/07/23 release Allergies Allergy/AdvReac Type Severity Reaction Status Date / Time cephalexin [From Keflex] Allergy Severe Difficulty Verified 09/22/23 11:16 Breathing prochlorperazine Allergy Severe Swelling Verified 09/22/23 11:16 [PROCHLORPERAZINE] of Lip/Tongue/Throat codeine [CODEINE] Allergy Unknown VOMITING / Verified 09/22/23 11:16 NAUSEA prednisone [PREDNISONE] Allergy Unknown BP ISSUES Verified 09/22/23 11:16 promethazine [From PHENERGAN] Allergy Unknown Unknown Verified 09/22/23 11:16 allergy reaction metoclopramide [From Reglan] Allergy Nausea Verified 09/22/23 11:16 [facility] Disclaimer: The information contained in this section may have been updated after the patient was seen, as this information can be updated by other users. Medical History Allergies Anxiety Bilateral lower extremity edema Chest pain Cholecystectomy planned Depression Dyspnea Edema History of anemia HTN (hypertension) Hx of Crohn's disease Insomnia Knee effusion, right Osteoporosis Pneumonia Positive D dimer Sinus bradycardia Urinary tract infection Surgical History H/O oral surgery H/O total hysterectomy History of appendectomy History of arthroscopy of right knee History of esophagogastroduodenoscopy (EGD) History of intestinal surgery Family History Other Cancer Heart attack Social History Smoking Status: Never smoker second hand exposure: No alcohol intake: never substance use type: denies use current occupational status: disabled Travel in the last 8 weeks: None household members: none housing: apartment number of children: 2 current occupational exposures/hazards: No caffeine: Yes ROS Obtained: Yes All systems reviewed & no additional complaints except as documented Physical Exam General General appearance: alert, in no apparent distress and anxious Head Head exam: atraumatic and normocephalic Eye Eye exam: Present normal appearance, PERRL and EOMI ENT ENT exam: Present mucous membranes moist Neck Neck exam: Present normal inspection, full ROM and trachea midline Respiratory Respiratory exam: Present normal lung sounds bilaterally; Absent respiratory distress, wheezes, stridor, accessory muscle use or prolonged expiratory phase Cardiovascular Cardiovascular exam: Present regular rate and normal rhythm Abdominal Exam Abdominal exam: Present soft and tenderness; Absent distention, guarding, rebound or rigidity Abdominal tenderness: Present diffuse and mild Extremities Exam Extremities exam: Absent edema Neurological Exam Neurological exam: Present alert, oriented X3, CN II-XII intact and normal gait; Absent motor sensory deficit Skin Skin exam: Present warm and dry; Absent diaphoresis or erythema Medical Decision Making Medical Records Medical records reviewed: Yes I reviewed the patient's medical records. [place] Inquiry Pt receiving controlled substance: No Grant was queried for this patient: No Vital Signs: 10/07/23 15:48 Temperature 97.9 F Temperature Source Oral Pulse Rate [Right] 85 Respiratory Rate 16 Blood Pressure [Right Arm] 132/101 H Blood Pressure Mean [Right Arm] 111 Blood Pressure Source [Right Arm] Automatic Cuff 02 Sat by Pulse Oximetry 99 Oxygen Delivery Method Room Air Lab Data Lab Results 10/07/23 16:30: WBC 8.3, RBC 4.04 L, Hgb 11.2 L, Hct 36.1 L, MCV 89.3, MCH 27.6, MCHC 30.9 L, RDW 15.0, Plt Count 354, MPV 9.2, Neut % (Auto) 57.6, Lymph % (Auto ) 31.3, [place] % (Auto) 7.1, Eos % (Auto) 3.7, Baso % (Auto) 0.3, Neut # (Auto) 4.8, Lymph # (Auto) 2.6, [place] # (Auto) 0.6, Eos # (Auto) 0.3, Baso # (Auto) 0.0, Sodium 141, Potassium 3.8, Chloride 108 H, Carbon Dioxide 30, Anion Gap 6.8, BUN 17, Creatinine 1.10 H, Estimated Creat Clear 58, Estimated GFR 50 L, Est GFR ( Amer) 60, Glucose 92, Lactate 2.8 H, Calcium 9.3, Total Bilirubin 0.4, AST 33, ALT 22, Alkaline Phosphatase 68, Troponin I < 0.01, Total Protein 7.7, Albumin 4.4, Globulin 3.3 H, Albumin/Globulin Ratio 1.3, Lipase 128 10/07/23 16:30 10/07/23 16:30 Orders (Tests/Meds): ED MEDICATIONS Generic Name Dose Route Start Last Admin Trade Name Freq PRN Reason Stop Dose Admin Sodium Chloride 8 ml 10/07/23 16:13 10/07/23 17:42 Sodium Chloride 0.9% 10ml Vial IV 11/06/23 16:12 8 ml NEEDED PRN Administration dilute pepcid Sodium Chloride 10 ml 10/07/23 17:41 10/07/23 17:42 Sodium Chloride 0.9% 10ml Syr (Rad Only) IV 11/06/23 17:40 10 ml NEEDED PRN Administration Maintain IV Site Sodium Chloride 10 ml 10/07/23 18:30 Sodium Chloride 0.9% 10ml Vial IV 11/06/23 18:29 NEEDED PRN dilute protonix Discontinued Medications Generic Name Dose Route Start Last Admin Trade Name Freq PRN Reason Stop Dose Admin Acetaminophen 1,000 mg 10/07/23 16:06 10/07/23 16:54 Acetaminophen 1,000mg/100ml Vial IV 10/07/23 16:07 1,000 mg ONCE ONE Administration Belladonna Alkaloids 60 ml 10/07/23 16:13 10/07/23 16:55 Belladonna Alkaloids 60 Ml Ml PO 10/07/23 16:14 60 ml ONCE ONE Administration Famotidine 20 mg 10/07/23 16:13 10/07/23 16:55 Famotidine 20mg/2ml Vial IV 10/07/23 16:14 20 mg ONCE ONE Administration Lactated Ringer's 1,000 mls @ 999 mls/hr 10/07/23 16:06 10/07/23 17:02 Lactated Ringer's 1000 Ml Bag IV 10/07/23 17:06 999 mls/hr .Q1H1M ONE Administration Iopamidol 75 ml 10/07/23 17:41 Iopamidol-370 (76%);100ml Bottle IV 10/07/23 17:42 ONCE ONE Ketorolac Tromethamine 15 mg 10/07/23 16:06 10/07/23 16:55 Ketorolac 30mg/Ml Vial IV 10/07/23 16:07 15 mg ONCE ONE Administration Ondansetron HCl 4 mg 10/07/23 16:06 10/07/23 16:55 Ondansetron 4mg/2ml Vial IV 10/07/23 16:07 4 mg ONCE ONE Administration Pantoprazole Sodium 40 mg 10/07/23 18:30 10/07/23 18:51 Pantoprazole 40mg Vial IV 10/07/23 18:31 40 mg ONCE ONE Administration ORDERS Category Date Time Status CT abdomen pelvis w con Stat Cat Scan 10/07/23 17:23 Completed CXR --portable [XR chest portable] Stat Exams 10/07/23 16:06 Completed CBC w/Auto Diff [Complete Blood Count Auto Diff] Stat Lab 10/07/23 16:30 Comp leted CMP [Comprehensive Metabolic Panel] Stat Lab 10/07/23 16:30 Completed Diarrhea 6-11 Panel, Cdiff PCR Stat Lab 10/07/23 16:13 Ordered Lactic Acid Stat Lab 10/07/23 16:30 Completed Lactic Acid Stat Lab 10/07/23 18:13 Ordered Lipase Stat Lab 10/07/23 16:30 Completed Trop I [Troponin I] Stat Lab 10/07/23 16:30 Completed Troponin I Q3H Lab 10/07/23 19:15 Ordered Troponin I Q3H Lab 10/07/23 22:15 Ordered HEART Score History (anamnesis): Slightly suspicious ECG: Normal Age: >65 years Risk factors: 1-2 risk factors Troponin: </= normal limit HEART Score: 3 Medical Decision Narrative: This is a very well-known 67-year-old female with multiple visits to the emergency department with history of hypertension, hyperlipidemia, Crohn's disease status post numerous abdominal surgeries, hiatal hernia, PUD/gastritis, cholecystectomy, appendectomy, recent abnormal colonoscopy presenting withAcute on chronic abdominal pain. Patient states that she has been having this pain for days which has been getting worse over weeks. She having diarrhea, nausea and vomiting, very little p.o. intake, periumbilical abdominal pain and cramping which is made better with bowel movements. Abdominal pain does not radiate, it is moderate to severe in intensity. Not associated with fevers, chills, unintended weight loss, urinary symptoms, skin discoloration, travel, substance abuse. States that she has largely been able to tolerate any p.o. intake and feels that she is dehydrated. Does not feel that her symptoms have been addressed properly with numerous visits to the emergency department. Scheduled a new appointment with a family doctor next week. History was obtained via conversation with patient. On arrival, patient hemodynamically stable, alert, oriented x4, appropriate, GCS 15, moving all extremities spontaneously, pupils equal and reactive to light. Full physical exam performed and significant for anxious appearing female in no acute distress. Abdomen is soft, mildly tender diffusely, but primarily around umbilicus. No overlying skin changes. No flank tenderness. Patient is afebrile, mildly hypertensive, nontachycardic. Differential includes PUD, gastritis, enteritis, gastroenteritis, pancreatitis, SBO, colitis, diverticulitis, nephrolithiasis, UTI, hepatitis, aortic pathology, mesenteric ischemia among others. Patient was given Toradol, [place] of, fluids, Zofran, GI cocktail, Pepcid for symptomatic management and correction of underlying abnormalities. Workup independently interpreted and significant for nonactionable CBC or chemistry. Mild dehydration with creatinine 1.1 and lactate 2.8, patient was gi george a liter of IV fluids for this. Troponin negative, lipase negative. CT abdomen pelvis without acute intra-abdominal pathology. No obvious hiatal hernia. See radiology read for full review of final results. Heart score 3. On reevaluation, patient resting in bed, still having moderate pain. She was given 40 mg IV PPI.. Hospital medicine was contacted and case was discussed at length, recommended outpatient management with twice daily PPI as well as Bentyl. This was sent to the pharmacy. Extensive conversation was had with patient and family regarding adherence to PPI and following up with GI, they are agreeable to this plan outpatient. Given patient presentation, workup, history, this most likely represents functional abdominal pain versus esophagitis versus gastritis in the setting of instrumentation. Because patient at baseline without signs or symptoms of clinical decompensation, deemed appropriate for discharge. Results were relayed to patient who voiced understanding and were agreeable to outpatient management and follow up. At the time of discharge the patient was hemodynamically stable, tolerating PO, and mobilizing appropriately. Critical Care Critical Care Time Critical Care Time: No
--- NOTE | 2023-10-07 16:36 | PC.NURSE ---
port accessed. blood sent to lab
[2023-10-07 16:46] LABS: Basophils % 0.3 % (0.1-2.0); Eosinophils # 0.3 K/mm3 (0.0-0.4); Eosinophils % 3.7 % (0.1-12.0); Hematocrit 36.1 % (37.0-47.0); Hemoglobin 11.2 g/dL (12.2-16.2); Lymphocytes # 2.6 K/mm3 (0.7-4.5); Lymphocytes % 31.3 % (10-50); Mean Corpuscular HGB Conc 30.9 g/dL (31.8-35.4); Mean Corpuscular Hemoglobin 27.6 pg (27.0-31.2); Mean Corpuscular Volume 89.3 fl (81-99); Mean Platelet Volume 9.2 fl (7.4-10.4); Monocytes # 0.6 K/mm3 (0.1-1.0); Monocytes % 7.1 % (1.7-9.3); Neutrophils # 4.8 K/mm3 (1.8-7.8); Neutrophils % 57.6 % (37.0-80.0); Platelet Count 354 K/mm3 (142-424); Red Blood Count 4.04 M/mm3 (4.20-5.40); White Blood Count 8.3 K/mm3 (4.8-10.8)
[2023-10-07 16:48] LABS: Chloride 108 mmol/L (98-107); Potassium 3.8 mmoL/L (3.5-5.1); Sodium 141 mmol/L (136-145)
[2023-10-07 16:50] LABS: Alanine Aminotransferase 22 U/L (12-78); Aspartate Amino Transferase 33 U/L (14-36); Blood Urea Nitrogen 17 mg/dl (7-17); Creatinine Clearance Estimated 58 mL/min (50-200); Estimated Glomerular Filt Rate 50 ml/min (>60); GFR (African American) 60 ML/MIN (>60)
[2023-10-07 16:51] LABS: Albumin Level 4.4 g/dl (3.5-5.0); Albumin/Globulin Ratio 1.3 (1.1-1.8); Alkaline Phosphatase 68 U/L (38-126); Anion Gap 6.8 mEq/L (5-15); Bilirubin,Total 0.4 mg/dl (0.2-1.3); Calcium 9.3 mg/dl (8.4-10.2); Carbon Dioxide 30 mmol/L (22.0-30.0); Globulin 3.3 g/dL (1.3-3.2); Glucose 92 mg/dl (74-100); Lipase 128 U/L (23-300); Total Protein,Serum 7.7 g/dl (6.3-8.2)
[2023-10-07 16:52] LABS: Lactic Acid 2.8 mmol/L (0.7-2.1)
[2023-10-07] MEDS: ACETAMINOPHEN 1,000MG/100ML VIAL 1000 MG IV (16:54)
[2023-10-07] MEDS: KETOROLAC 30MG/ML VIAL 15 MG IV (16:55)
[2023-10-07] MEDS: BELLADONNA ALKALOIDS 60 ML ML PO (16:55)
[2023-10-07] MEDS: ONDANSETRON 4MG/2ML VIAL 4 MG IV (16:55)
[2023-10-07] MEDS: FAMOTIDINE 20MG/2ML VIAL 20 MG IV (16:55)
[2023-10-07] MEDS: SODIUM CHLORIDE 0.9% 10ML VIAL 8 ML IV ×2 (16:55→17:42)
[2023-10-07] MEDS: LACTATED RINGERS 1000ML 1,000 ML 999 ML IV (17:02)
[2023-10-07 17:08] LABS: Troponin I < 0.01 ng/ml (0.00-0.034)
--- NOTE | 2023-10-07 17:23 | CT_ITS ---
PROCEDURE INFORMATION: Exam: CT Abdomen And Pelvis With Contrast Exam date and time: 10/07/2023 5:34 PM Age: 67 years old Clinical indication: Abdominal tenderness and vomiting; Additional info: Worsening abd pain and vomiting TECHNIQUE: Imaging protocol: Computed tomography of the abdomen and pelvis with contrast. Radiation optimization: All CT scans at this facility use at least one of these dose optimization techniques: automated exposure control; mA and/or kV adjustment per patient size (includes targeted exams where dose is matched to clinical indication); or iterative reconstruction. Contrast material: ISOVUE; Contrast volume: 75 ml; Contrast route: IV; COMPARISON: CT ABDOMEN PELVIS W CON 09/27/2023 6:25 PM and 09/02/2023 FINDINGS: Lungs: Lung bases are clear. Liver: Normal. No mass. Gallbladder and bile ducts: Status post cholecystectomy. No evident bile duct dilatation allowing for prior cholecystectomy. Pancreas: Normal. No ductal dilation. Spleen: Normal. No splenomegaly. Adrenal glands: Normal. No mass. Kidneys and ureters: Normal. No hydronephrosis. Stomach and bowel: Unremarkable. No obstruction. No mucosal thickening. Appendix: No evidence of appendicitis. Intraperitoneal space: Unremarkable. No free air. No significant fluid collection. Vasculature: Unremarkable. No abdominal aortic aneurysm. Lymph nodes: Unremarkable. No enlarged lymph nodes. Urinary bladder: Unremarkable as visualized. Reproductive: Hysterectomy. Bones/joints: Unremarkable. No acute fracture. Soft tissues: Unremarkable. IMPRESSION: No acute abnormalities of the abdomen and pelvis. Nonemergent findings as above.
--- NOTE | 2023-10-07 17:27 | PC.NURSE ---
pt to ct
[2023-10-07] MEDS: SODIUM CHLORIDE 0.9% 10ML SYR (RAD ONLY) 10 ML IV (17:42)
--- NOTE | 2023-10-07 17:45 | PC.NURSE ---
pt attempting to give urine and/or stool sample
--- NOTE | 2023-10-07 17:52 | PC.NURSE ---
urine sample sent to lab
--- NOTE | 2023-10-07 18:18 | PC.NURSE ---
DR MALLOY AT BEDSIDE
--- NOTE | 2023-10-07 18:40 | PC.NURSE ---
DR MALLOY SPEAKING WITH DR GAINES
[2023-10-07] MEDS: PANTOPRAZOLE 40MG VIAL 40 MG IV (18:51)
--- NOTE | 2023-10-07 18:55 | PC.NURSE ---
DR MALLOY AT BEDSIDE TO UPDATE PT
[2023-10-07 19:18] VITALS: BP 132/98; PULSE 92; RESP 18; TEMP 36.6; O2SAT 95
== END 2023-10-07 19:19 | disposition home or self-care (01) ==
PROVIDERS: Emergency Provider Emergency Medicine; PCP Internal Medicine
DX: R10.13 Epigastric pain (principal); R19.7 Diarrhea, unspecified; R11.2 Nausea with vomiting, unspecified; K50.918 Crohn's disease, unspecified, with other complication; I10 Essential (primary) hypertension; E78.5 Hyperlipidemia, unspecified
CPT/HCPCS: 71045; 74177; 80053; 83605; 83690; 84484; 85025; 96361; 96374; 96375; 99285; J0131; J2405

== ENCOUNTER 2023-10-09 15:32 | Outpatient (CLI) | payer MEDICARE, OTHER, SELFPAY ==
[2023-10-09] MEDS: SODIUM CHLORIDE 0.9% 10ML FLUSH SYRINGE 10 ML IV (15:38)
[2023-10-09 16:36] LABS: Erythrocyte Sedimentation Rate 21 mm/hr (0-30)
[2023-10-09 16:44] LABS: C-Reactive Protein 1.7 mg/L (0-4)
[2023-10-09 16:57] LABS: Iron 45 ug/dL (37-170)
[2023-10-09 17:06] LABS: Total Iron Binding Capacity 385 ug/dL (265-497)
[2023-10-09 17:45] LABS: Vitamin B12 512 pg/mL (239-931)
[2023-10-09 17:46] LABS: Folate 5.85 ng/mL
[2023-10-13 10:16] LABS: Prealbumin 24
== END 2023-10-09 15:54 | disposition home or self-care (01) ==
LOC: INF 15:32
PROVIDERS: PCP Internal Medicine; Visit Provider Internal Medicine
DX: R53.83 Other fatigue (principal); R11.2 Nausea with vomiting, unspecified; Z79.899 Other long term (current) drug therapy; Z45.2 Encounter for adjustment and management of vascular access device; E55.9 Vitamin D deficiency, unspecified; R79.0 Abnormal level of blood mineral
CPT/HCPCS: 36591; 82306; 82607; 82746; 83540; 83550; 84134; 85651; 86140; J1642

== ENCOUNTER 2023-10-15 12:03 | Emergency (ER) | payer MEDICARE, OTHER, SELFPAY ==
[2023-10-15 12:20] VITALS: BP 134/90; PULSE 82; RESP 19; TEMP 36.8; O2SAT 100; BMI 30.1
[2023-10-15 12:42] LABS: UTC Influenza A Antigen Negative (Negative); UTC Influenza B Antigen Negative (Negative)
--- NOTE | 2023-10-15 12:44 | EXP.UTC ---
Discharge Plan Disposition Patient Disposition: Home, Self-Care Condition: Good Prescriptions Prescriptions: New guaifenesin [Mucinex] 600 mg tablet extended release 12hr 600 mg PO BID PRN (Reason: cough) Qty: 20 0RF No Action promethazine 25 mg tablet 25 mg PO QID PRN (Reason: nausea and vomiting) Qty: 120 1RF clonazepam [Klonopin] 0.5 mg tablet 0.5 mg PO TID 30 Days Qty: 90 0RF hydrocodone-acetaminophen 7.5-325 mg tablet 1 tab PO Q4H PRN (Reason: Back Pain and abdominal pain) 30 Days Qty: 180 0RF lisinopril 10 mg tablet 10 mg PO DAILY albuterol sulfate [ProAir HFA] 90 mcg/actuation HFA aerosol inhaler 2 puff inhalation Q6HP PRN (Reason: Shortness Of Breath Or Wheezing) spironolactone 25 mg tablet 25 mg PO DAILY loratadine 10 mg tablet 10 mg PO DAILY fluoxetine 40 mg capsule 40 mg PO DAILY potassium chloride 10 mEq capsule, extended release 10 meq PO DAILY meclizine 25 mg tablet 25 mg PO TID PRN (Reason: dizziness) Qty: 30 0RF omeprazole 40 mg capsule,delayed release(DR/EC) 40 mg PO BID Qty: 60 2RF dicyclomine 20 mg tablet 20 mg PO BID Qty: 60 2RF Referrals Follow up/Referrals: Librado Gilmore DO [Primary Care Provider] - See instructions Activity Restrictions/Add. Instructions Additional Instructions/Restrictions: *Monitor Temp, Over the counter Motrin or Tylenol as directed/as needed Tylenol every 4 hours and Motrin every 6 hours (as long as your family doctor has told you that you can take it) for fever or pain. and straight to ER if unable to lower temp less than 101.0 after medication given *Warm salt water gargles may help to soothe the throat *Throat Lozenges? *Warm fluids like tea with honey may help to soothe the throat? *Sleep elevated *Humidifier/Vaporizer Follow up IMMEDIATELY for new or worsening symptoms or no Noticeable improvement over the next 48-72 hours. 911 for difficulty breathing or swallowing Clinical Impressions Clinical Impression: Viral upper respiratory tract infection with cough Instructions Patient Instructions: Cough, DI for Nasal Congestion, DI for Viral Upper Respiratory Infection -- Adult Discharge ED Provider: Ana Mejia [facility] General Stated complaint: cough, congestion, body aches Mode of Arrival: Ambulatory Source of Information: Patient Limitations: No Limitations Time Seen by Provider: 10/15/23 12:44 Description of Symptoms (Recalled from Triage Doc. by RN): PATIENT C/O COUGH, CONGESTION, BODY ACHES, AND HEADACHE SINCE YESTERDAY MORNING HEENT Symptoms (Recalled from RN notes): Yes Resp Symptoms (Recalled from RN notes): Yes Skin Symptoms (Recalled from RN notes): No MS Symptoms (Recalled from RN notes): No Functional Status (Recalled from RN notes): WNL History of Present Illness Provider Complaint: Patient states that she has been having nasal drainage, cough, and body aches since yesterday states that several people in her family has had influenza states that she was worried that she may have it now wanting to get tested Related Data Home Medications Medication Instructions Recorded Confirmed albuterol sulfate 90 mcg/actuation 2 puff inhalation Q6HP PRN 05/15/23 10/09/23 aerosol inhaler (ProAir HFA) Shortness Of Breath Or Wheezing lisinopril 10 mg tablet 10 mg PO DAILY High Blood Pressure 05/15/23 10/09/23 loratadine 10 mg tablet 10 mg PO DAILY Allergy Symptoms 05/15/23 10/09/23 spironolactone 25 mg tablet 25 mg PO DAILY Fluid 05/15/23 10/09/23 fluoxetine 40 mg capsule 40 mg PO DAILY Anxiety 09/03/23 10/09/23 potassium chloride 10 mEq 10 meq PO DAILY Supplement 09/03/23 10/09/23 capsule,extended release Previous Rx's Medication Instructions Recorded meclizine 25 mg tablet 25 mg PO TID PRN dizziness #30 tabs 09/22/23 dicyclomine 20 mg tablet 20 mg PO BID #60 tabs 10/07/23 omeprazole 40 mg capsule,delayed 40 mg PO BID #60 caps 10/07/23 release clonazepam 0.5 mg tablet (Klonopin) 0.5 mg PO TID Anxiety 30 days #90 10/09/23 tabs hydrocodone 7.5 mg-acetaminophen 1 tab PO Q4H PRN Back Pain and 10/09/23 325 mg tablet abdominal pain 30 days #180 tabs promethazine 25 mg tablet 25 mg PO QID PRN nausea and 10/09/23 vomiting #120 tabs guaifenesin 600 mg tablet, 600 mg PO BID PRN cough #20 tabs 10/15/23 extended release 12 hr (Mucinex) Allergies Allergy/AdvReac Type Severity Reaction Status Date / Time cephalexin [From Keflex] Allergy Severe Difficulty Verified 10/09/23 13:07 Breathing prochlorperazine Allergy Severe Swelling Verified 10/09/23 13:07 [PROCHLORPERAZINE] of Lip/Tongue/Throat codeine [CODEINE] Allergy Unknown VOMITING / Verified 10/09/23 13:07 NAUSEA prednisone [PREDNISONE] Allergy Unknown BP ISSUES Verified 10/09/23 13:07 promethazine [From PHENERGAN] Allergy Unknown Unknown Verified 10/09/23 13:07 allergy reaction metoclopramide [From Reglan] Allergy Nausea Verified 10/09/23 13:07 Worker's Comp Is this a Worker's Comp case?: No [facility] Disclaimer: The information contained in this section may have been updated after the patient was seen, as this information can be updated by other users. Medical History Allergies Anxiety Bilateral lower extremity edema Chest pain Cholecystectomy planned Depression Dyspnea Edema History of anemia HTN (hypertension) Hx of Crohn's disease Insomnia Knee effusion, right Osteoporosis Pneumonia Positive D dimer Sinus bradycardia Urinary tract infection Surgical History H/O oral surgery H/O total hysterectomy History of appendectomy History of arthroscopy of right knee History of esophagogastroduodenoscopy (EGD) History of intestinal surgery Family History Other Cancer Heart attack Social History Smoking Status: Never smoker second hand exposure: No alcohol intake: never substance use type: denies use current occupational status: disabled Travel in the last 8 weeks: None household members: none housing: apartment number of children: 2 current occupational exposures/hazards: No caffeine: Yes ROS Obtained: Yes All systems reviewed & no additional complaints except as documented and Yes Systems reviewed as appropriate & no additional complaints except as documented Constitutional Constitutional: Reports system reviewed and no additional complaints, except as documented, Reports as per HPI, Reports body ache, Reports chills and Reports headache(s) ENT Ears, Nose, Mouth, and Throat: Reports system reviewed and no additional complaints, except as documented, Reports as per HPI, Reports headache(s) and Reports nasal congestion Cardiovascular Cardiovascular: Reports system reviewed and no additional complaints, except as documented and Reports as per HPI Respiratory Respiratory: Reports system reviewed and no additional complaints, except as documented, Reports as per HPI and Reports cough Gastrointestinal Gastrointestingal: Reports system reviewed and no additional complaints, except as documented and as per HPI Neurologic Neurologic: Reports headache(s) Physical Exam General General appearance: alert and in no apparent distress ENT ENT exam: Present mucous membranes moist Expanded ENT Exam Nose exam: Absent sinus tenderness Throat exam: Present normal inspection Respiratory Respiratory exam: Present normal lung sounds bilaterally; Absent respiratory distress or wheezes Cardiovascular Cardiovascular exam: Present regular rate, normal rhythm and normal heart sounds Neurological Exam Neurological exam: Present alert and oriented X3 Medical Decision Making Grant Inquiry Pt receiving controlled substance: No Grant was queried for this patient: No Vital Signs: 10/15/23 12:20 Temperature 98.3 F Temperature Source Oral Pulse Rate [Left Brachial] 82 Respiratory Rate 19 Blood Pressure [Left Arm] 134/90 Blood Pressure Mean [Left Arm] 104 Blood Pressure Source [Left Arm] Automatic Cuff Blood Pressure Position [Left Arm] Sitting 02 Sat by Pulse Oximetry 100 Oxygen Delivery Method Room Air Lab Data Lab results reviewed: Yes I reviewed the patient's lab results. Lab Results 10/15/23 12:28: Influenza Type A Ag Negative, Influenza Type B Ag Negative Medical Decision Narrative: Patient states she has taken mucinex in the past without complications or reactions
[2023-10-15 12:55] VITALS: BP 134/90; PULSE 82; RESP 19; TEMP 36.8; O2SAT 100
== END 2023-10-15 12:58 | disposition home or self-care (01) ==
PROVIDERS: Emergency Provider Nurse Practitioner; PCP Internal Medicine
DX: R05.9 Cough, unspecified (principal); R51.9 Headache, unspecified; R09.81 Nasal congestion; J06.9 Acute upper respiratory infection, unspecified; B34.9 Viral infection, unspecified
CPT/HCPCS: 87804; 99212; 99214; G0463

== ENCOUNTER 2023-10-22 13:31 | Emergency (ER) | payer MEDICARE, OTHER, SELFPAY ==
[2023-10-22 13:32] VITALS: BP 147/95; PULSE 66; RESP 16; TEMP 36.5; O2SAT 97; BMI 27.9
--- NOTE | 2023-10-22 13:58 | ED_ITS ---
<Statement entered by Madison Barroso MD - 10/22/23 18:07> I was consulted by the LOTUS, and we discussed the complexity of the problems being addressed. I approved the treatment and management plan for this patient's care in the emergency department, thus performing a substantive portion of the medical decision making. Madison Barroso MD, RIO, FACEP Discharge Plan Disposition Chief Complaint: Weakness Prescriptions Prescriptions: No Action promethazine 25 mg tablet 25 mg PO QID PRN (Reason: nausea and vomiting) Qty: 120 1RF clonazepam [Klonopin] 0.5 mg tablet 0.5 mg PO TID 30 Days Qty: 90 0RF hydrocodone-acetaminophen 7.5-325 mg tablet 1 tab PO Q4H PRN (Reason: Back Pain and abdominal pain) 30 Days Qty: 180 0RF lisinopril 10 mg tablet 10 mg PO DAILY albuterol sulfate [ProAir HFA] 90 mcg/actuation HFA aerosol inhaler 2 puff inhalation Q6HP PRN (Reason: Shortness Of Breath Or Wheezing) spironolactone 25 mg tablet 25 mg PO BIDP PRN (Reason: swelling) loratadine 10 mg tablet 10 mg PO DAILY fluoxetine 40 mg capsule 40 mg PO DAILY potassium chloride 10 mEq capsule, extended release 10 meq PO DAILY omeprazole 40 mg capsule,delayed release(DR/EC) 40 mg PO BID Qty: 60 2RF dicyclomine 20 mg tablet 20 mg PO BID Qty: 60 2RF guaifenesin [Mucinex] 600 mg tablet extended release 12hr 600 mg PO BID PRN (Reason: cough) Qty: 20 0RF Referrals Follow up/Referrals: Librado Gilmore DO [Primary Care Provider] - See instructions Discharge ED Provider: Madison Barroso General Adult HPI <AUGUSTINE Wilder - Last Filed: 10/22/23 15:51> General Chief complaint: Weakness Stated complaint: Swelling both legs below the knee Time Seen by Provider: 10/22/23 13:57 Mode of Arrival: Ambulatory Source of Information: Patient Limitations: No Limitations Description of Symptoms (Recalled from ER Triage Doc. by RN): pt states for the past couple days her legs and ankles have felt tight and appeared more swollen than normal, she has also felt short of breath and fatigued for this long. Has been trying to keep elevated has Lasix 20mg BID prn (she believes, not completely sure on dose) and has taken twice yesterday and once today; she states she urinates quite a bit after taking Lasix History of Present Illness HPI narrative: Patient presents to the ER initially with a chief complaint of bilateral lower extremity hurting . Patient states that she has a water pill prescribed to her by a stage electrician helper that she takes intermittently for edema and for the last 4 days she has been taking it but it has not been helping the pain. She states that the swelling is no better. Patient does have a history of chronic functional abdominal pain secondary to Crohn's and does have a port however she is not required infusions for quite some time but is not specific although she states it has been more than a year. Patient also states that she has history of fluid around her heart but does not carry a diagnosis of congestive heart failure that I am aware of. Last cath able to to be reviewed was from 2018 that was normal. She has had an echo in the interval since that shows left atrial enlargement but otherwise with normal TTE findings. She currently denies chest pain shortness of breath fever chills hemoptysis hematochezia melena nausea vomiting diarrhea. Related Data Home Medications Medication Instructions Recorded Confirmed albuterol sulfate 90 mcg/actuation 2 puff inhalation Q6HP PRN 05/15/23 10/22/23 aerosol inhaler (ProAir HFA) Shortness Of Breath Or Wheezing lisinopril 10 mg tablet 10 mg PO DAILY High Blood Pressure 05/15/23 10/22/23 loratadine 10 mg tablet 10 mg PO DAILY Allergy Symptoms 05/15/23 10/22/23 spironolactone 25 mg tablet 25 mg PO BIDP PRN swelling 05/15/23 10/22/23 fluoxetine 40 mg capsule 40 mg PO DAILY Anxiety 09/03/23 10/22/23 potassium chloride 10 mEq 10 meq PO DAILY Supplement 09/03/23 10/22/23 capsule,extended release Previous Rx's Medication Instructions Recorded dicyclomine 20 mg tablet 20 mg PO BID #60 tabs 10/07/23 omeprazole 40 mg capsule,delayed 40 mg PO BID #60 caps 10/07/23 release clonazepam 0.5 mg tablet (Klonopin) 0.5 mg PO TID Anxiety 30 days #90 10/09/23 tabs hydrocodone 7.5 mg-acetaminophen 1 tab PO Q4H PRN Back Pain and 10/09/23 325 mg tablet abdominal pain 30 days #180 tabs promethazine 25 mg tablet 25 mg PO QID PRN nausea and 10/09/23 vomiting #120 tabs guaifenesin 600 mg tablet, 600 mg PO BID PRN cough #20 tabs 10/15/23 extended release 12 hr (Mucinex) Allergies Allergy/AdvReac Type Severity Reaction Status Date / Time cephalexin [From Keflex] Allergy Severe Difficulty Verified 10/09/23 13:07 Breathing prochlorperazine Allergy Severe Swelling Verified 10/09/23 13:07 [PROCHLORPERAZINE] of Lip/Tongue/Throat codeine [CODEINE] Allergy Unknown VOMITING / Verified 10/09/23 13:07 NAUSEA prednisone [PREDNISONE] Allergy Unknown BP ISSUES Verified 10/09/23 13:07 promethazine [From PHENERGAN] Allergy Unknown Unknown Verified 10/09/23 13:07 allergy reaction metoclopramide [From Reglan] Allergy Nausea Verified 10/09/23 13:07 PFS <AUGUSTINE Wilder - Last Filed: 10/22/23 15:51> [facility] Disclaimer: The information contained in this section may have been updated after the patient was seen, as this information can be updated by other users. Medical History Allergies Anxiety Bilateral lower extremity edema Chest pain Cholecystectomy planned Depression Dyspnea Edema History of anemia HTN (hypertension) Hx of Crohn's disease Insomnia Knee effusion, right Osteoporosis Pneumonia Positive D dimer Sinus bradycardia Urinary tract infection Surgical History H/O oral surgery H/O total hysterectomy History of appendectomy History of arthroscopy of right knee History of esophagogastroduodenoscopy (EGD) History of intestinal surgery Family History Other Cancer Heart attack Social History Smoking Status: Never smoker second hand exposure: No alcohol intake: never substance use type: denies use current occupational status: disabled Travel in the last 8 weeks: None household members: none housing: apartment number of children: 2 current occupational exposures/hazards: No caffeine: Yes <AUGUSTINE Wilder - Last Filed: 10/22/23 15:51> ROS Obtained: Yes Systems reviewed as appropriate & no additional complaints except as documented Physical Exam <AUGUSTINE Wilder - Last Filed: 10/22/23 15:51> General General appearance: alert and in no apparent distress Head Head exam: atraumatic and normal inspection Eye Eye exam: Present normal appearance, PERRL and EOMI ENT ENT exam: Present normal exam, normal oropharynx and mucous membranes moist Neck Neck exam: Present normal inspection and full ROM Chest Chest inspection: Present normal inspection and symmetric chest wall rise Respiratory Respiratory exam: Present normal lung sounds bilaterally; Absent respiratory distress Cardiovascular Cardiovascular exam: Present regular rate, normal rhythm and normal heart sounds Abdominal Exam Abdominal exam: Present soft and normal bowel sounds Extremities Exam Extremities exam: Present normal inspection, full ROM and edema (Patient has 3+ pitting edema at the ankles and edema extends to the level of the knees bilaterally) Back Exam Back exam: Present normal inspection Neurological Exam Neurological exam: Present alert and oriented X3 Psychiatric Psychiatric exam: Present normal affect and normal mood Skin Skin exam: Present warm, dry and normal color Lymphatic Lymphatic Findings: no adenopathy Medical Decision Making <AUGUSTINE Wilder - Last Filed: 10/22/23 15:51> Medical Records Medical records reviewed: Yes I reviewed the patient's medical records. Grant Inquiry Pt receiving controlled substance: No Vital Signs: 10/22/23 13:32 10/22/23 14:00 10/22/23 14:30 Temperature 97.7 F Temperature Source Oral Pulse Rate 60 60 Pulse Rate [Right Brachial] 66 Respiratory Rate 16 20 20 Blood Pressure 153/100 H 153/82 H Blood Pressure [Right Arm] 147/95 H Blood Pressure Mean 117 105 Blood Pressure Mean [Right Arm] 112 Blood Pressure Source [Right Arm] Automatic Cuff Blood Pressure Position [Right Arm] Sitting 02 Sat by Pulse Oximetry 97 96 97 Oxygen Delivery Method Room Air Lab Data Lab results reviewed: Yes I reviewed the patient's lab results. Lab Results 10/22/23 13:52: WBC 5.6, RBC 3.21 L, Hgb 9.0 L, Hct 29.0 L, MCV 90.3, MCH 28.0, MCHC 31.0 L, RDW 15.5, Plt Count 303, MPV 9.4, Neut % (Auto) 51.7, Lymph % (Auto) 35.2, Divide % (Auto) 5.2, Eos % (Auto) 7.0, Baso % (Auto) 0.9, Neut # (Auto) 2.9, Lymph # (Auto) 2.0, Divide # (Auto) 0.3, Eos # (Auto) 0.4, Baso # (Auto) 0.1, Sodium 140, Potassium 4.0, Chloride 108 H, Carbon Dioxide 28, Anion Gap 8.0, BUN 20 H, Creatinine 0.90, Estimated Creat Clear 64, Estimated GFR 62, Est GFR ( Amer) 76, Glucose 77, Calcium 8.5, Total Bilirubin 0.2, AST 50 H, ALT 35, Alkaline Phosphatase 72, Troponin I < 0.01, NT-Pro-B Natriuret Pep 355 H, Total Protein 6.7, Albumin 3.9, Globulin 2.8, Albumin/Globulin Ratio 1.4 10/22/23 13:52 10/22/23 13:52 Orders (Tests/Meds): ED MEDICATIONS Generic Name Dose Route Start Last Admin Trade Name Freq PRN Reason Stop Dose Admin Sodium Chloride 10 ml 10/22/23 14:05 Sodium Chloride 0.9% 10ml Flush Syringe IV 11/21/23 14:04 NEEDED PRN Maintain IV Site Discontinued Medications Generic Name Dose Route Start Last Admin Trade Name Freq PRN Reason Stop Dose Admin Acetaminophen 1,000 mg 10/22/23 14:31 10/22/23 15:20 Acetaminophen 500mg Tab PO 10/22/23 14:32 1,000 mg ONCE ONE Administration Furosemide 80 mg 10/22/23 14:39 10/22/23 15:21 Furosemide 40mg/4ml Vial IV 10/22/23 14:40 80 mg ONCE ONE Administration Ketorolac Tromethamine 15 mg 10/22/23 14:31 10/22/23 15:20 Ketorolac 30mg/Ml Vial IV 10/22/23 14:32 15 mg ONCE ONE Administration ORDERS Category Date Time Status Brain Natriuretic Peptide Stat Lab 10/22/23 13:52 Completed CBC [Complete Blood Count Auto Diff] Stat Lab 03/10/24 13:52 Completed Comprehensive Metabolic Panel Stat Lab 10/22/23 13:52 Completed Troponin I Q3H Lab 10/22/23 17:15 Ordered Troponin I Q3H Lab 10/22/23 20:15 Ordered Troponin I Stat Lab 10/22/23 13:52 Completed UA [Urinalysis and Microscopic] Stat Lab 10/22/23 15:24 Received EKG Request [ECG Request] Stat Y 10/22/23 14:08 Ordered Medical Decision Narrative: In summary patient is a 67-year-old female who presents to the emergency department for evaluation of bilateral lower extremity pain and swelling. Patient is normotensive and hemodynamically stable upon arrival, and afebrile. Physical exam is remarkable for bilateral 3+ pitting edema and edema extends to the level of the knees however there is no erythema induration or notable fluctuance the remainder of her physical exam is unremarkable and nonfocal including normal heart surrounds normal breath sounds. Differential diagnosis includes venous insufficiency versus heart failure versus renal failure versus CHF etc. Initial workup will be conducted with hematologic labs twelve-lead EKG urinalysis. Initial interventions include 80 mg of Lasix IV push and Toradol and tramadol after renal function labs are back. Initial workup reviewed by me shows an elevated NT proBNP but the remainder of her laboratory investigations are nonactionable including a normal creatinine and GFR. Upon repeat evaluation has had some reduction in her discomfort. Given this she will be discharged home with instructions to start taking her Lasix daily and call tomorrow morning and make an appointment for follow-up with Dr. Buck for cardiac evaluation and evaluation for venous insufficiency. Patient advised to avoid excess sodium or hidden sodium intake. Patient verbalized understanding and agreement <Madison Barroso MD - Last Filed: 10/22/23 15:27> Vital Signs: 10/22/23 13:32 10/22/23 14:00 10/22/23 14:30 Temperature 97.7 F Temperature Source Oral Pulse Rate 60 60 Pulse Rate [Right Brachial] 66 Respiratory Rate 16 20 20 Blood Pressure 153/100 H 153/82 H Blood Pressure [Right Arm] 147/95 H Blood Pressure Mean 117 105 Blood Pressure Mean [Right Arm] 112 Blood Pressure Source [Right Arm] Automatic Cuff Blood Pressure Position [Right Arm] Sitting 02 Sat by Pulse Oximetry 97 96 97 Oxygen Delivery Method Room Air Lab Data Lab Results 10/22/23 13:52: WBC 5.6, RBC 3.21 L, Hgb 9.0 L, Hct 29.0 L, MCV 90.3, MCH 28.0, MCHC 31.0 L, RDW 15.5, Plt Count 303, MPV 9.4, Neut % (Auto) 51.7, Lymph % (Auto) 35.2, Divide % (Auto) 5.2, Eos % (Auto) 7.0, Baso % (Auto) 0.9, Neut # (Auto) 2.9, Lymph # (Auto) 2.0, Divide # (Auto) 0.3, Eos # (Auto) 0.4, Baso # (Auto) 0.1, Sodium 140, Potassium 4.0, Chloride 108 H, Carbon Dioxide 28, Anion Gap 8.0, BUN 20 H, Creatinine 0.90, Estimated Creat Clear 64, Estimated GFR 62, Est GFR ( Amer) 76, Glucose 77, Calcium 8.5, Total Bilirubin 0.2, AST 50 H, ALT 35, Alkaline Phosphatase 72, Troponin I < 0.01, NT-Pro-B Natriuret Pep 355 H, Total Protein 6.7, Albumin 3.9, Globulin 2.8, Albumin/Globulin Ratio 1.4 Orders (Tests/Meds): ED MEDICATIONS Generic Name Dose Route Start Last Admin Trade Name Freq PRN Reason Stop Dose Admin Sodium Chloride 10 ml 10/22/23 14:05 Sodium Chloride 0.9% 10ml Flush Syringe IV 11/21/23 14:04 NEEDED PRN Maintain IV Site Discontinued Medications Generic Name Dose Route Start Last Admin Trade Name Freq PRN Reason Stop Dose Admin Acetaminophen 1,000 mg 10/22/23 14:31 10/22/23 15:20 Acetaminophen 500mg Tab PO 10/22/23 14:32 1,000 mg ONCE ONE Administration Furosemide 80 mg 10/22/23 14:39 10/22/23 15:21 Furosemide 40mg/4ml Vial IV 10/22/23 14:40 80 mg ONCE ONE Administration Ketorolac Tromethamine 15 mg 10/22/23 14:31 10/22/23 15:20 Ketorolac 30mg/Ml Vial IV 10/22/23 14:32 15 mg ONCE ONE Administration ORDERS Category Date Time Status Brain Natriuretic Peptide Stat Lab 10/22/23 13:52 Completed CBC [Complete Blood Count Auto Diff] Stat Lab 10/22/23 13:52 Completed Comprehensive Metabolic Panel Stat Lab 10/22/23 13:52 Completed Troponin I Q3H Lab 10/22/23 17:15 Ordered Troponin I Q3H Lab 10/22/23 20:15 Ordered Troponin I Stat Lab 10/22/23 13:52 Completed UA [Urinalysis and Microscopic] Stat Lab 10/22/23 15:24 Received EKG Request [ECG Request] Stat Y 10/22/23 14:08 Ordered ECG Data Tracing #1: I reviewed this ECG and interpreted as documented below: Ventricular rate of 61 sinus rhythm there is a poor baseline difficult to ascertain the MI interval no acute ischemic changes noted normal axis Critical Care <AUGUSTINE Wilder - Last Filed: 10/22/23 15:51> Critical Care Time Critical Care Time: No
[2023-10-22 14:00] VITALS: BP 153/100; PULSE 60; RESP 20; O2SAT 96
[2023-10-22 14:14] LABS: Chloride 108 mmol/L (98-107); Sodium 140 mmol/L (136-145)
[2023-10-22 14:17] LABS: Blood Urea Nitrogen 20 mg/dl (7-17); Carbon Dioxide 28 mmol/L (22.0-30.0); Creatinine Clearance Estimated 64 mL/min (50-200); Estimated Glomerular Filt Rate 62 ml/min (>60); GFR (African American) 76 ML/MIN (>60)
[2023-10-22 14:18] LABS: Calcium 8.5 mg/dl (8.4-10.2); Glucose 77 mg/dl (74-100)
[2023-10-22 14:28] LABS: Basophils # 0.1 K/mm3 (0-0.2); Basophils % 0.9 % (0.1-2.0); Eosinophils # 0.4 K/mm3 (0.0-0.4); Lymphocytes % 35.2 % (10-50); Mean Corpuscular Volume 90.3 fl (81-99); Mean Platelet Volume 9.4 fl (7.4-10.4); Monocytes # 0.3 K/mm3 (0.1-1.0); Monocytes % 5.2 % (1.7-9.3); NT Pro Brain Natriuretic Pep. 355 pg/mL (0-125); Neutrophils # 2.9 K/mm3 (1.8-7.8); Neutrophils % 51.7 % (37.0-80.0); Platelet Count 303 K/mm3 (142-424); Red Blood Count 3.21 M/mm3 (4.20-5.40); Red Cell Distribution Width 15.5 % (11.5-17.5); White Blood Count 5.6 K/mm3 (4.8-10.8)
[2023-10-22 14:30] VITALS: BP 153/82; PULSE 60; RESP 20; O2SAT 97
[2023-10-22 14:32] LABS: Troponin I < 0.01 ng/ml (0.00-0.034)
--- NOTE | 2023-10-22 14:35 | PC.NURSE ---
I rounded on pt, she requested light to be turned off and pain meds if has put an order in.
[2023-10-22 14:39] LABS: Alanine Aminotransferase 35 U/L (12-78); Albumin Level 3.9 g/dl (3.5-5.0); Albumin/Globulin Ratio 1.4 (1.1-1.8); Alkaline Phosphatase 72 U/L (38-126); Aspartate Amino Transferase 50 U/L (14-36); Bilirubin,Total 0.2 mg/dl (0.2-1.3); Globulin 2.8 g/dL (1.3-3.2); Total Protein,Serum 6.7 g/dl (6.3-8.2)
[2023-10-22] MEDS: KETOROLAC 30MG/ML VIAL 15 MG IV (15:20)
[2023-10-22] MEDS: ACETAMINOPHEN 500MG TAB 1000 MG PO (15:20)
[2023-10-22] MEDS: FUROSEMIDE 40MG/4ML VIAL 80 MG IV (15:21)
--- NOTE | 2023-10-22 15:24 | ECG_ITS ---
APPROVED REPORT Exam: Resting ECG HR:61 bpm ECG Measurements Heart Rate 61 AXES IA 215 P 44 QRSd 91 QRS 20 QT 426 T 43 QTc 430 Conclusion SINUS RHYTHM WITH FIRST DEGREE AV BLOCK ABNORMAL ECG UNCONFIRMED REPORT Electronically signed by : Papo Barroso, 10/22/2023 23:15:12
[2023-10-22 15:30] VITALS: BP 164/98; PULSE 64; RESP 16; O2SAT 98
[2023-10-22 15:34] LABS: Microscopic, Urine URINE MICROSCOPIC (MICROSCOPIC)
[2023-10-22 15:58] VITALS: BP 164/98; PULSE 64; RESP 18; TEMP 36.6; O2SAT 98
[2023-10-22 16:03] LABS: Appearance,Urine CLEAR (Clear); Bilirubin,Urine Negative (Negative); Blood, Urine Negative (Negative); Color,Urine YELLOW (Yellow); Glucose,Urine (UA) Negative (Negative); Ketones,Urine Negative (Negative); Leukocyte Esterase,Urine Negative (Negative); Nitrate,Urine Negative (Negative); PH,Urine 6.5 (5.0-8.5); Protein,Urine Negative (Negative); Specific Gravity, Urine 1.025 (1.005-1.030); Urobilinogen,Urine 0.2 EU/dl (0.2)
== END 2023-10-22 16:08 | disposition home or self-care (01) ==
PROVIDERS: Emergency Medicine; Physician Assistant; Emergency Provider Student in an Organized Health Care Education/Training Program; PCP Internal Medicine
DX: R60.0 Localized edema (principal); I10 Essential (primary) hypertension; M79.604 Pain in right leg; M79.605 Pain in left leg; Z87.19 Personal history of other diseases of the digestive system
CPT/HCPCS: 80053; 81001; 83880; 84484; 85025; 93005; 96374; 96375; 99284

== ENCOUNTER 2023-10-25 11:52 | Emergency (ER) | payer MEDICARE, OTHER, SELFPAY ==
[2023-10-25 12:40] VITALS: BP 152/95; PULSE 68; RESP 18; TEMP 36.7; O2SAT 98; BMI 27.9
--- NOTE | 2023-10-25 12:49 | EXP.UTC ---
Discharge Plan Disposition Patient Disposition: Home, Self-Care Condition: Good Prescriptions Prescriptions: New amoxicillin 875 mg tablet 875 mg PO Q12H Qty: 20 0RF guaifenesin [Mucinex] 600 mg tablet extended release 12hr 600 - 1,200 mg PO BIDP PRN (Reason: Congestion) Qty: 30 0RF No Action promethazine 25 mg tablet 25 mg PO QID PRN (Reason: nausea and vomiting) Qty: 120 1RF clonazepam [Klonopin] 0.5 mg tablet 0.5 mg PO TID 30 Days Qty: 90 0RF hydrocodone-acetaminophen 7.5-325 mg tablet 1 tab PO Q4H PRN (Reason: Back Pain and abdominal pain) 30 Days Qty: 180 0RF lisinopril 10 mg tablet 10 mg PO DAILY albuterol sulfate [ProAir HFA] 90 mcg/actuation HFA aerosol inhaler 2 puff inhalation Q6HP PRN (Reason: Shortness Of Breath Or Wheezing) spironolactone 25 mg tablet 25 mg PO BIDP PRN (Reason: swelling) loratadine 10 mg tablet 10 mg PO DAILY fluoxetine 40 mg capsule 40 mg PO DAILY potassium chloride 10 mEq capsule, extended release 10 meq PO DAILY omeprazole 40 mg capsule,delayed release(DR/EC) 40 mg PO BID Qty: 60 2RF dicyclomine 20 mg tablet 20 mg PO BID Qty: 60 2RF guaifenesin [Mucinex] 600 mg tablet extended release 12hr 600 mg PO BID PRN (Reason: cough) Qty: 20 0RF Referrals Follow up/Referrals: Librado Gilmore DO [Primary Care Provider] - See instructions Activity Restrictions/Add. Instructions Additional Instructions/Restrictions: Drink plenty of fluids. Take tylenol for pain or fever. Take the medications as directed. Follow up with your regular doctor. GO TO THE ER FOR ANY WORSENING SYMPTOMS Clinical Impressions Clinical Impression: Acute right otitis media, Sinusitis, Acute viral syndrome Instructions Patient Instructions: Middle Ear Infection, DI for Sinusitis, DI for Viral Syndrome Discharge ED Provider: Papo Bunn [facility] General Stated complaint: body aches Time Seen by Provider: 10/25/23 12:49 History of Present Illness Provider Complaint: She states that for the past 4 days she has has had sinus congestion, body aches, right ear pain, and malaise. Related Data Home Medications Medication Instructions Recorded Confirmed albuterol sulfate 90 mcg/actuation 2 puff inhalation Q6HP PRN 05/15/23 10/25/23 aerosol inhaler (ProAir HFA) Shortness Of Breath Or Wheezing lisinopril 10 mg tablet 10 mg PO DAILY High Blood Pressure 05/15/23 10/25/23 loratadine 10 mg tablet 10 mg PO DAILY Allergy Symptoms 05/15/23 10/25/23 spironolactone 25 mg tablet 25 mg PO BIDP PRN swelling 05/15/23 10/25/23 fluoxetine 40 mg capsule 40 mg PO DAILY Anxiety 09/03/23 10/25/23 potassium chloride 10 mEq 10 meq PO DAILY Supplement 09/03/23 10/25/23 capsule,extended release Previous Rx's Medication Instructions Recorded dicyclomine 20 mg tablet 20 mg PO BID #60 tabs 10/07/23 omeprazole 40 mg capsule,delayed 40 mg PO BID #60 caps 10/07/23 release clonazepam 0.5 mg tablet (Klonopin) 0.5 mg PO TID Anxiety 30 days #90 10/09/23 tabs hydrocodone 7.5 mg-acetaminophen 1 tab PO Q4H PRN Back Pain and 10/09/23 325 mg tablet abdominal pain 30 days #180 tabs promethazine 25 mg tablet 25 mg PO QID PRN nausea and 10/09/23 vomiting #120 tabs guaifenesin 600 mg tablet, 600 mg PO BID PRN cough #20 tabs 10/15/23 extended release 12 hr (Mucinex) amoxicillin 875 mg tablet 875 mg PO Q12H #20 tabs 10/25/23 guaifenesin 600 mg tablet, 600 - 1,200 mg (1 - 2 x 600 mg) PO 10/25/23 extended release 12 hr (Mucinex) BIDP PRN Congestion #30 tabs Allergies Allergy/AdvReac Type Severity Reaction Status Date / Time cephalexin [From Keflex] Allergy Severe Difficulty Verified 10/25/23 13:04 Breathing prochlorperazine Allergy Severe Swelling Verified 10/25/23 13:04 [PROCHLORPERAZINE] of Lip/Tongue/Throat codeine [CODEINE] Allergy Unknown VOMITING / Verified 10/25/23 13:04 NAUSEA prednisone [PREDNISONE] Allergy Unknown BP ISSUES Verified 10/25/23 13:04 promethazine [From PHENERGAN] Allergy Unknown Unknown Verified 10/25/23 13:04 allergy reaction metoclopramide [From Reglan] Allergy Nausea Verified 10/25/23 13:04 [facility] Disclaimer: The information contained in this section may have been updated after the patient was seen, as this information can be updated by other users. Medical History Allergies Anxiety Bilateral lower extremity edema Chest pain Cholecystectomy planned Depression Dyspnea Edema History of anemia HTN (hypertension) Hx of Crohn's disease Insomnia Knee effusion, right Osteoporosis Pneumonia Positive D dimer Sinus bradycardia Urinary tract infection Surgical History H/O oral surgery H/O total hysterectomy History of appendectomy History of arthroscopy of right knee History of esophagogastroduodenoscopy (EGD) History of intestinal surgery Family History Other Cancer Heart attack Social History Smoking Status: Never smoker second hand exposure: No alcohol intake: never substance use type: denies use current occupational status: disabled Travel in the last 8 weeks: None household members: none housing: apartment number of children: 2 current occupational exposures/hazards: No caffeine: Yes ROS Obtained: Yes All systems reviewed & no additional complaints except as documented Constitutional Constitutional: Reports poor appetite Eyes Eyes: Reports system reviewed and no additional complaints, except as documented ENT Ears, Nose, Mouth, and Throat: Reports as per HPI Cardiovascular Cardiovascular: Reports system reviewed and no additional complaints, except as documented and Denies chest pain Respiratory Respiratory: Denies shortness of breath, Reports chest congestion, Reports cough, Denies stridor and Denies wheezing Gastrointestinal Gastrointestingal: Reports system reviewed and no additional complaints, except as documented; Denies abdominal pain, diarrhea or vomiting Musculoskeletal Musculoskeletal: Reports system reviewed and no additional complaints, except as documented and Denies arthralgias Integumentary/Breasts Skin/Breast: Reports system reviewed and no additional complaints, except as documented and Denies rash Neurologic Neurologic: Denies paresthesias Allergic/Immunologic Allergic/Immunologic: Denies wheezing Physical Exam General General appearance: alert and in no apparent distress Head Head exam: atraumatic, normocephalic and normal inspection Eye Eye exam: Present normal appearance; Absent PERRL or EOMI ENT ENT exam: Present mucous membranes moist and normal external ear exam Expanded ENT Exam TM/Canal exam: Bilateral TM: erythema, bulging and effusion Nose exam: Absent sinus tenderness Nasal speculum exam: Bilateral: normal Mouth exam: Present normal external inspection and other; Absent drooling Teeth exam: Present normal inspection Throat exam: Present tonsillar erythema and tonsillomegaly Neck Neck exam: Present normal inspection, full ROM and trachea midline; Absent tenderness, meningismus or lymphadenopathy Chest Chest inspection: Present normal inspection and symmetric chest wall rise; Absent tenderness Respiratory Respiratory exam: Present normal lung sounds bilaterally; Absent respiratory distress, wheezes or stridor Cardiovascular Cardiovascular exam: Present regular rate, normal rhythm and normal heart sounds; Absent tachycardia or irregular rhythm Abdominal Exam Abdominal exam: Present soft and normal bowel sounds; Absent distention, tenderness, guarding, rebound or rigidity Extremities Exam Extremities exam: Present normal inspection and normal capillary refill; Absent tenderness, joint swelling or calf tenderness Back Exam Back exam: Present normal inspection and full ROM; Absent tenderness, CVA tenderness (R) or CVA tenderness (L) Neurological Exam Neurological exam: Present alert, oriented X3, CN II-XII intact, normal gait and reflexes normal; Absent motor sensory deficit Psychiatric Psychiatric exam: Present normal affect and normal mood Skin Skin exam: Present warm, dry, intact and normal color Lymphatic Lymphatic Findings: no adenopathy Medical Decision Making Medical Records Medical records reviewed: No I reviewed the patient's medical records. Grant Inquiry Pt receiving controlled substance: No Lab Data Lab results reviewed: Yes I reviewed the patient's lab results.
[2023-10-25 12:56] LABS: UTC Influenza A Antigen Negative (Negative); UTC Influenza B Antigen Negative (Negative)
--- NOTE | 2023-10-25 13:19 | PC.NURSE ---
Sent down full panel to lab
[2023-10-25 13:20] VITALS: BP 152/95; PULSE 68; RESP 18; TEMP 36.7; O2SAT 98
[2023-10-25 13:21] LABS: Adenovirus,PCR Not Detected (NotDetected); Coronavirus 229E Not Detected (NotDetected); Coronavirus NL63 Not Detected (NotDetected); Coronavirus OC43 Not Detected (NotDetected); Coronovirus HKU1,PCR Not Detected (NotDetected); Human Metapneumovirus Not Detected (NotDetected); Influenza A, PCR Not Detected (NotDetected); Influenza AH1, 2009 Not Detected (NotDetected); Influenza AH1, PCR Not Detected (NotDetected); Influenza AH3,PCR Not Detected (NotDetected); Influenza B, PCR Not Detected (NotDetected); Parainfluenza 1, PCR Not Detected (NotDetected); Parainfluenza 2, PCR Not Detected (NotDetected); Rhinovirus/Enterovirus Not Detected (NotDetected)
[2023-10-25 13:22] LABS: Coronavirus 19, PCR Not Detected (NotDetected); Parainfluenza 3, PCR Not Detected (NotDetected); Parainfluenza 4, PCR Not Detected (NotDetected); Respiratory Syncytial Virus Not Detected (NotDetected)
== END 2023-10-25 13:20 | disposition home or self-care (01) ==
PROVIDERS: Emergency Provider Nurse Practitioner Family; PCP Internal Medicine
DX: H66.91 Otitis media, unspecified, right ear (principal); J01.90 Acute sinusitis, unspecified; B34.9 Viral infection, unspecified; R09.81 Nasal congestion; R53.81 Other malaise; F41.9 Anxiety disorder, unspecified; F32.A Depression, unspecified; I10 Essential (primary) hypertension; K50.90 Crohn's disease, unspecified, without complications; M81.8 Other osteoporosis without current pathological fracture
CPT/HCPCS: 87632; 87635; 87804; 99212; 99214; G0463

== ENCOUNTER 2023-10-29 20:36 | Outpatient (CLI) | payer MEDICARE, OTHER, SELFPAY ==
[2023-10-29 21:20] LABS: Occult Blood,Stool Negative (Negative)
[2023-11-02 14:13] LABS: Pancreatic Elastase, Fecal 344 (>200)
[2023-11-03 14:59] LABS: Calprotectin, Fecal 68 ug/g (0-120)
== END 2023-10-29 23:59 ==
PROVIDERS: PCP Nurse Practitioner; Visit Provider Nurse Practitioner
DX: R10.13 Epigastric pain (principal); R10.10 Upper abdominal pain, unspecified; R19.7 Diarrhea, unspecified
CPT/HCPCS: 82272; 82656; 83993; 87205; G0328

== ENCOUNTER → 2023-11-01 15:33 | Outpatient (CLI) | payer MEDICARE, OTHER, SELFPAY ==
[2023-11-01 16:36] LABS: Basophils % 0.7 % (0.1-2.0); Eosinophils # 0.2 K/mm3 (0.0-0.4); Eosinophils % 2.5 % (0.1-12.0); Hemoglobin 9.1 g/dL (12.2-16.2); Lymphocytes # 1.9 K/mm3 (0.7-4.5); Lymphocytes % 30.7 % (10-50); Mean Corpuscular Hemoglobin 28.6 pg (27.0-31.2); Mean Corpuscular Volume 89.4 fl (81-99); Mean Platelet Volume 10.1 fl (7.4-10.4); Monocytes # 0.3 K/mm3 (0.1-1.0); Monocytes % 5.4 % (1.7-9.3); Neutrophils # 3.8 K/mm3 (1.8-7.8); Neutrophils % 60.7 % (37.0-80.0); Platelet Count 316 K/mm3 (142-424); Red Blood Count 3.19 M/mm3 (4.20-5.40); Red Cell Distribution Width 15.5 % (11.5-17.5); White Blood Count 6.2 K/mm3 (4.8-10.8)
[2023-11-01] MEDS: SODIUM CHLORIDE 0.9% 10ML FLUSH SYRINGE 10 ML IV (16:47)
[2023-11-01 16:56] LABS: Hematocrit 28.5 % (37.0-47.0)
[2023-11-01 17:08] LABS: Chol/HDL Ratio 4.1 (1-3.5); Cholesterol 220 mg/dl (140-200); HDL Cholesterol 54 mg/dl (40-60); Triglycerides 77 mg/dl (30-150); VLDL Cholesterol 15 mg/dL (0-40)
[2023-11-01 17:13] LABS: C-Reactive Protein 2.2 mg/L (0-4)
[2023-11-01 17:20] LABS: Direct LDL Cholesterol 105.27 mg/dL (100-129)
[2023-11-01 17:28] LABS: Microalbumin < 6.000 mg/L (0-16.7)
[2023-11-01 17:40] LABS: Thyroid Stimulating Hormone 0.21 uIU/mL (0.465-4.68)
[2023-11-01 18:15] LABS: Vitamin B12 568 pg/mL (239-931)
[2023-11-01 18:27] LABS: Folate 6.85 ng/mL
[2023-11-01 19:03] LABS: Iron 50 ug/dL (37-170)
[2023-11-01 19:13] LABS: Total Iron Binding Capacity 378 ug/dL (265-497)
[2023-11-01 19:38] LABS: Ferritin 6.17 ng/ml (11.1-264)
[2023-11-02 09:59] LABS: AFP, Tumor Marker 2.1 ng/mL (0.0-9.2); CA 19-9 13 U/mL (0-35); CEA 2.3 ng/mL (0.0-4.7)
[2023-11-03 16:20] LABS: Peripheral Smear Review Scanned Result
[2023-11-04 12:44] LABS: Bile Acids 13.4
== END | disposition home or self-care (01) ==
LOC: INF 15:33
PROVIDERS: Nurse Practitioner; PCP Internal Medicine; Visit Provider Internal Medicine
DX: R10.84 Generalized abdominal pain (principal); R10.9 Unspecified abdominal pain; R10.30 Lower abdominal pain, unspecified; K50.90 Crohn's disease, unspecified, without complications; R11.2 Nausea with vomiting, unspecified; B34.9 Viral infection, unspecified; Z13.21 Encounter for screening for nutritional disorder; G89.29 Other chronic pain; K29.50 Unspecified chronic gastritis without bleeding; R00.1 Bradycardia, unspecified; D64.9 Anemia, unspecified; R19.7 Diarrhea, unspecified; Z90.49 Acquired absence of other specified parts of digestive tract; R79.89 Other specified abnormal findings of blood chemistry; Z87.19 Personal history of other diseases of the digestive system; Z80.9 Family history of malignant neoplasm, unspecified
CPT/HCPCS: 36591; 80061; 82043; 82105; 82239; 82378; 82607; 82728; 82746; 83540; 83550; 84443; 85025; 86140; 86301; G0463; J1642

== ENCOUNTER 2023-11-06 09:52 | Emergency (ER) | payer MEDICARE, OTHER, SELFPAY ==
[2023-11-06 09:53] VITALS: BP 125/77; RESP 18; TEMP 36.7; O2SAT 96; BMI 27.9
[2023-11-06 10:03] VITALS: BMI 27.9
[2023-11-06 10:06] LABS: Coronavirus 19, PCR Not Detected (NotDetected); Influenza A, PCR Not Detected (NotDetected); Influenza B, PCR Not Detected (NotDetected)
--- NOTE | 2023-11-06 10:35 | PC.NURSE ---
Soy Storm rounded on pt. No needs voiced. Call light within reach.
--- NOTE | 2023-11-06 11:25 | HMH.EDGENADL ---
Discharge Plan Disposition Patient Disposition: Home, Self-Care Condition: Good Prescriptions Prescriptions: New fluticasone propionate [Flonase Allergy Relief] 50 mcg/actuation spray,suspension 1 spray intranasal BID PRN (Reason: nasal congestion) Qty: 16 0RF Rx Instructions: administer into each nostril cetirizine [Zyrtec] 10 mg tablet 10 mg PO DAILY Qty: 30 0RF amoxicillin-pot clavulanate 875-125 mg tablet 1 tab PO BID Qty: 20 0RF Discontinued azithromycin [Zithromax Z-Dionicio] 250 mg tablet See Rx Instructions PO .COMPLEX Qty: 6 0RF Rx Instructions: For 250 mg dose pack: take 500 mg today (day 1), then 250 mg for 4 days (days 2-5) PO No Action promethazine 25 mg tablet 25 mg PO QID PRN (Reason: nausea and vomiting) Qty: 120 1RF alendronate 70 mg tablet PO Patient Comments: TAKE ONE TABLET BY MOUTH ONCE a WEEK clonazepam [Klonopin] 0.5 mg tablet 0.5 mg PO TID 30 Days Qty: 75 0RF hydrocodone-acetaminophen 7.5-325 mg tablet 1 tab PO Q4H PRN (Reason: Back Pain and abdominal pain) 30 Days Qty: 180 0RF ferrous sulfate 325 mg (65 mg iron) tablet,delayed release (DR/EC) 325 mg PO DAILY 90 Days Qty: 90 4RF lisinopril 10 mg tablet 10 mg PO DAILY albuterol sulfate [ProAir HFA] 90 mcg/actuation HFA aerosol inhaler 2 puff inhalation Q6HP PRN (Reason: Shortness Of Breath Or Wheezing) spironolactone 25 mg tablet 25 mg PO BIDP PRN (Reason: swelling) loratadine 10 mg tablet 10 mg PO DAILY fluoxetine 40 mg capsule 40 mg PO DAILY potassium chloride 10 mEq capsule, extended release 10 meq PO DAILY omeprazole 40 mg capsule,delayed release(DR/EC) 40 mg PO BID Qty: 60 2RF dicyclomine 20 mg tablet 20 mg PO BID Qty: 60 2RF guaifenesin [Mucinex] 600 mg tablet extended release 12hr 600 mg PO BID PRN (Reason: cough) Qty: 20 0RF Referrals Follow up/Referrals: Librado Gilmore DO [Primary Care Provider] - See instructions Casandra Hughes APRN [Nurse Practitioner] - See instructions Activity Restrictions/Add. Instructions Additional Instructions/Restrictions: You were evaluated in the emergency department today. Please take Tylenol and ibuprofen at home as needed for pain. 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 I recommend close follow-up with ENT as well as your primary care provider. Return to the emergency department for new or worsening symptoms. Clinical Impressions Clinical Impression: Recurrent acute otitis media of right ear Instructions Patient Instructions: Middle Ear Infection Discharge ED Provider: Luisana Bergman General Adult HPI General Chief complaint: Upper Respiratory Infection Stated complaint: sinus pain and right ear pain Time Seen by Provider: 11/06/23 09:58 Mode of Arrival: Ambulatory Source of Information: Patient Limitations: No Limitations Description of Symptoms (Recalled from ER Triage Doc. by RN): Patient presents to ED with complaints of right ear pain and sinus congestion for 3 days. Patient states she has had some dizziness when she stands up was seen by PCP and given meds. Patient states she doesn't feel any better. Denies fever, nausea, and vomiting at this time. History of Present Illness HPI narrative: This patient is a 68-year-old female who is well-known to the emergency department with history of hypertension, hyperlipidemia, Crohn's disease, and chronic pain presented to the emergency department for evaluation with concern for right ear pain and sinus pain that has been going on for approximately 2 weeks. She states that she has been seen in urgent treatment center and prescribed antibiotics twice. On medical record review, it is that she was most recently prescribed amoxicillin on 10/25/2023. She states that she has not completed this, but her symptoms are no better. She is still having persistent right ear pain. She notes that she has been told that she has fluid behind her ear, but her symptoms will not go away. She has not seen ENT for this. No other concerns noted at this time. Related Data Home Medications Medication Instructions Recorded Confirmed albuterol sulfate 90 mcg/actuation 2 puff inhalation Q6HP PRN 05/15/23 11/01/23 aerosol inhaler (ProAir HFA) Shortness Of Breath Or Wheezing lisinopril 10 mg tablet 10 mg PO DAILY High Blood Pressure 05/15/23 11/01/23 loratadine 10 mg tablet 10 mg PO DAILY Allergy Symptoms 05/15/23 11/01/23 spironolactone 25 mg tablet 25 mg PO BIDP PRN swelling 05/15/23 11/01/23 fluoxetine 40 mg capsule 40 mg PO DAILY Anxiety 09/03/23 11/01/23 potassium chloride 10 mEq 10 meq PO DAILY Supplement 09/03/23 11/01/23 capsule,extended release alendronate 70 mg tablet mg PO 11/01/23 11/01/23 Previous Rx's Medication Instructions Recorded dicyclomine 20 mg tablet 20 mg PO BID #60 tabs 10/07/23 omeprazole 40 mg capsule,delayed 40 mg PO BID #60 caps 10/07/23 release promethazine 25 mg tablet 25 mg PO QID PRN nausea and 10/09/23 vomiting #120 tabs guaifenesin 600 mg tablet, 600 mg PO BID PRN cough #20 tabs 10/15/23 extended release 12 hr (Mucinex) clonazepam 0.5 mg tablet (Klonopin) 0.5 mg PO TID Anxiety 30 days #75 11/02/23 tabs ferrous sulfate 325 mg (65 mg 325 mg PO DAILY 90 days #90 tabs 11/02/23 iron) tablet,delayed release hydrocodone 7.5 mg-acetaminophen 1 tab PO Q4H PRN Back Pain and 11/02/23 325 mg tablet abdominal pain 30 days #180 tabs amoxicillin 875 mg-potassium 1 tab PO BID #20 tabs 11/06/23 clavulanate 125 mg tablet cetirizine 10 mg tablet (Zyrtec) 10 mg PO DAILY #30 tabs 11/06/23 fluticasone propionate 50 1 spray intranasal BID PRN nasal 11/06/23 mcg/actuation nasal congestion #16 grams spray,suspension (Flonase Allergy Relief) Allergies Allergy/AdvReac Type Severity Reaction Status Date / Time cephalexin [From Keflex] Allergy Severe Difficulty Verified 11/01/23 15:02 Breathing prochlorperazine Allergy Severe Swelling Verified 11/01/23 15:02 [PROCHLORPERAZINE] of Lip/Tongue/Throat codeine [CODEINE] Allergy Unknown VOMITING / Verified 11/01/23 15:02 NAUSEA prednisone [PREDNISONE] Allergy Unknown BP ISSUES Verified 11/01/23 15:02 promethazine [From PHENERGAN] Allergy Unknown Unknown Verified 11/01/23 15:02 allergy reaction metoclopramide [From Reglan] Allergy Nausea Verified 11/01/23 15:02 [facility] Disclaimer: The information contained in this section may have been updated after the patient was seen, as this information can be updated by other users. Medical History Sinus bradycardia Dyspnea Chest pain Insomnia Depression Anxiety Cholecystectomy planned Urinary tract infection Pneumonia Osteoporosis Allergies Edema History of anemia History of constipation Exposure to COVID-19 virus NSAIDs adverse reaction Knee effusion, right Sphincter of Oddi dysfunction Abdominal adhesions Hx of Crohn's disease Positive D dimer HTN (hypertension) Bilateral lower extremity edema Surgical History H/O oral surgery History of appendectomy H/O total hysterectomy History of esophagogastroduodenoscopy (EGD) History of arthroscopy of right knee Status post knee surgery History of intestinal surgery Family History Other Cancer Heart attack Social History Smoking Status: Never smoker second hand exposure: No alcohol intake: never substance use type: denies use current occupational status: disabled Travel in the last 8 weeks: None household members: none housing: apartment number of children: 2 current occupational exposures/hazards: No caffeine: Yes ROS Obtained: Yes All systems reviewed & no additional complaints except as documented Physical Exam General General appearance: alert and in no apparent distress Head Head exam: atraumatic and normocephalic Eye Eye exam: Present normal appearance, PERRL and EOMI ENT ENT exam: Present normal oropharynx, mucous membranes moist and normal external ear exam Expanded ENT Exam External ear exam: Present normal external inspection; Absent auricular hematoma, auricular trauma, mastoid tenderness, pain with movement, external tenderness or periauricular adenopathy TM/Canal exam: Right TM: erythema, bulging, effusion and loss of landmarks Nose exam: Present sinus tenderness Nasal speculum exam: Bilateral: normal Mouth exam: Present normal external inspection Teeth exam: Present normal inspection Throat exam: Present normal inspection Neck Neck exam: Present normal inspection, full ROM and trachea midline; Absent tenderness Chest Chest inspection: Present normal inspection and symmetric chest wall rise; Absent tenderness Respiratory Respiratory exam: Present normal lung sounds bilaterally; Absent respiratory distress, wheezes, stridor or accessory muscle use Cardiovascular Cardiovascular exam: Present regular rate and normal rhythm Abdominal Exam Abdominal exam: Present soft; Absent distention, tenderness or guarding Extremities Exam Extremities exam: Present normal inspection, full ROM and normal capillary refill; Absent tenderness or edema Back Exam Back exam: Present normal inspection and full ROM; Absent tenderness Neurological Exam Neurological exam: Present alert, oriented X3, CN II-XII intact and normal gait; Absent motor sensory deficit Psychiatric Psychiatric exam: Present normal affect and normal mood Skin Skin exam: Present warm and dry Medical Decision Making Medical Records Medical records reviewed: Yes I reviewed the patient's medical records. Grant Inquiry Pt receiving controlled substance: No Vital Signs: 11/06/23 09:53 Temperature 98.1 F Temperature Source Oral Respiratory Rate 18 Blood Pressure [Right Arm] 125/77 Blood Pressure Mean [Right Arm] 93 Blood Pressure Source [Right Arm] Automatic Cuff 02 Sat by Pulse Oximetry 96 Oxygen Delivery Method Room Air Lab Data Lab results reviewed: Yes I reviewed the patient's lab results. Lab Results 11/06/23 10:00: SARS-CoV-2 (PCR) Not detected, Influenza A Untype (PCR) Not detected, Influenza Type B (PCR) Not detected Orders (Tests/Meds): ED MEDICATIONS Generic Name Dose Route Start Last Admin Trade Name Freq PRN Reason Stop Dose Admin Acetaminophen 1,000 mg 11/06/23 11:22 Acetaminophen 500mg Tab PO 11/06/23 11:23 ONCE ONE Ketorolac Tromethamine 30 mg 11/06/23 11:22 Ketorolac 30mg/Ml Vial IM 11/06/23 11:23 ONCE ONE ORDERS Category Date Time Status Rapid PCR Covid and Flu A/B Stat Lab 11/06/23 10:00 Completed Medical Decision Narrative: In summary, this patient is a 68-year-old female presenting to the Emergency Department for evaluation of right ear pain and sinus pain x 2 weeks. Differential diagnoses considered include but are not limited to chronic otitis media, acute otitis media, mastoiditis, outpatient treatment failure, sinusitis, otitis externa. Ruling out the most morbid conditions drove assessment. On exam, the patient is well-appearing with no trismus, mastoid tenderness, pain with movement of the external ear, or other concerns that would push me to order imaging, such as CT scan of the head with contrast. Her exam is overall reassuring, however she continues to have suppurative effusion despite being on amoxicillin. I do feel she would benefit from changing to Augmentin at this time. I also feel she would benefit from Flonase and Zyrtec for further management of effusion. I advised that she follow-up closely with ENT for reassessment. At this time, feel patient is appropriate for discharge without imaging or other workup. Strict return precautions were given as well as prescriptions for Augmentin, Zyrtec, and Flonase. Patient was given IM Toradol and oral Tylenol here for symptomatic improvement prior to discharge. Strict return precautions were given, and the patient was discharged after all questions were answered Critical Care Critical Care Time Critical Care Time: No
[2023-11-06] MEDS: KETOROLAC 30MG/ML VIAL 30 MG IM (11:34)
[2023-11-06] MEDS: ACETAMINOPHEN 500MG TAB 1000 MG PO (11:35)
[2023-11-06 11:46] VITALS: BP 141/78; PULSE 66; RESP 16; TEMP 36.7; O2SAT 98
== END 2023-11-06 11:48 | disposition home or self-care (01) ==
PROVIDERS: Emergency Provider Emergency Medicine; PCP Internal Medicine
DX: H66.91 Otitis media, unspecified, right ear (principal); R09.81 Nasal congestion; I10 Essential (primary) hypertension; E78.5 Hyperlipidemia, unspecified
CPT/HCPCS: 87636; 99283

== ENCOUNTER 2023-11-09 15:39 | Emergency (ER) | payer MEDICARE, OTHER, SELFPAY ==
[2023-11-09 15:39] VITALS: BP 177/96; PULSE 75; RESP 18; TEMP 36.7; O2SAT 99; BMI 27.9
--- NOTE | 2023-11-09 15:39 | ECG_ITS ---
APPROVED REPORT Exam: Resting ECG HR:73 bpm ECG Measurements Heart Rate 73 AXES OK 172 P 57 QRSd 92 QRS 3 QT 399 T 41 QTc 425 Conclusion SINUS RHYTHM NORMAL ECG Electronically signed by : JENNIE CASEY, 11/09/2023 23:35:37
--- NOTE | 2023-11-09 15:58 | ECG_ITS ---
APPROVED REPORT Exam: Resting ECG HR:69 bpm ECG Measurements Heart Rate 69 AXES NH 193 P 67 QRSd 96 QRS 16 QT 420 T 46 QTc 439 Conclusion SINUS RHYTHM NORMAL ECG Electronically signed by : JENNIE CASEY, 11/09/2023 23:35:21
[2023-11-09 16:00] VITALS: BP 170/94; PULSE 73; RESP 14; O2SAT 97
--- NOTE | 2023-11-09 16:07 | CT_ITS ---
PROCEDURE INFORMATION: Exam: CTA Neck With Contrast Exam date and time: 11/09/2023 5:00 PM Age: 68 years old Clinical indication: Headache; Additional info: L headache and neck pain TECHNIQUE: Imaging protocol: Computed tomographic angiography of the neck with contrast. Exam focused on the cervical segments of the vasculature. 3D rendering (Not supervised by radiologist): MIP and/or 3D reconstructed images were created by the technologist. Radiation optimization: All CT scans at this facility use at least one of these dose optimization techniques: automated exposure control; mA and/or kV adjustment per patient size (includes targeted exams where dose is matched to clinical indication); or iterative reconstruction. Contrast material: ISOVUE; Contrast volume: 100 ml; Contrast route: INTRAVENOUS (IV); COMPARISON: CT CERVICAL SPINE WO CON 01/06/2022 12:24 AM FINDINGS: Limitations: Patient motion. Tubes, catheters and devices: Left chest infusion port. Right common carotid artery: No stenosis. No dissection or occlusion. Right internal carotid artery: No stenosis of the extracranial segment. No dissection or occlusion. Right external carotid artery: No occlusion or stenosis of the origin. Left common carotid artery: No stenosis. No dissection or occlusion. Left internal carotid artery: No stenosis of the extracranial segment. No dissection or occlusion. Left external carotid artery: No occlusion or stenosis of the origin. Right vertebral artery: No stenosis. No dissection or occlusion. Left vertebral artery: No stenosis. No dissection or occlusion. Soft tissues: Normal. No significant soft tissue swelling. Bones/joints: There are degenerative changes involving the spine. Lungs: There are bilateral nonspecific ground-glass densities. IMPRESSION: No stenosis or dissection. REFERENCES: NASCET CRITERIA. The degree of stenosis in the cervical segment of the internal carotid artery is based on NASCET criteria. Normal is no stenosis. Mild is less than 50% stenosis. Moderate is 50-69% stenosis. Severe is 70% to 99% stenosis. Total occlusion is no detectable patent lumen.
--- NOTE | 2023-11-09 16:07 | CT_ITS ---
PROCEDURE INFORMATION: Exam: CTA Head With Contrast, Arteriography Exam date and time: 11/09/2023 5:00 PM Age: 68 years old Clinical indication: Headache; Additional info: L headache and neck pain TECHNIQUE: Imaging protocol: Computed tomographic angiography of the head with contrast. Exam focused on the arteries. 3D rendering (Not supervised by radiologist): MIP and/or 3D reconstructed images were created by the technologist. Radiation optimization: All CT scans at this facility use at least one of these dose optimization techniques: automated exposure control; mA and/or kV adjustment per patient size (includes targeted exams where dose is matched to clinical indication); or iterative reconstruction. Contrast material: ISOVUE; Contrast volume: 100 ml; Contrast route: INTRAVENOUS (IV); COMPARISON: CT HEAD/BRAIN WO CON 11/09/2023 4:58 PM FINDINGS: ANTERIOR CIRCULATION: Right internal carotid artery: Intracranial segment is patent with no significant stenosis. No aneurysm. Right middle cerebral artery: No occlusion or significant stenosis. No aneurysm. Right anterior cerebral artery: No occlusion or significant stenosis. No aneurysm. Left internal carotid artery: Intracranial segment is patent with no significant stenosis. No aneurysm. Left middle cerebral artery: No occlusion or significant stenosis. No aneurysm. Left anterior cerebral artery: No occlusion or significant stenosis. No aneurysm. POSTERIOR CIRCULATION: Right vertebral artery: No occlusion or significant stenosis. No aneurysm. Left vertebral artery: No occlusion or significant stenosis. No aneurysm. Basilar artery: No occlusion or significant stenosis. No aneurysm. Right posterior cerebral artery: No occlusion or significant stenosis. No aneurysm. Left posterior cerebral artery: No occlusion or significant stenosis. No aneurysm. Brain: No definite mass, mass effect, or midline shift. Cerebral ventricles: No ventriculomegaly. Bones/joints: Unremarkable. No acute fracture. Soft tissues: Unremarkable. IMPRESSION: Unremarkable CTA of the intracranial circulation.
--- NOTE | 2023-11-09 16:07 | CT_ITS ---
PROCEDURE INFORMATION: Exam: CT Head Without Contrast Exam date and time: 11/09/2023 4:58 PM Age: 68 years old Clinical indication: Other: Headache; Additional info: L headache TECHNIQUE: Imaging protocol: Computed tomography of the head without contrast. Radiation optimization: All CT scans at this facility use at least one of these dose optimization techniques: automated exposure control; mA and/or kV adjustment per patient size (includes targeted exams where dose is matched to clinical indication); or iterative reconstruction. COMPARISON: CT HEAD/BRAIN WO CON 01/06/2022 12:24 AM FINDINGS: Brain: Age-related volume loss. Decreased attenuation of the supratentorial white matter is likely secondary to chronic microvascular ischemia. No acute intracranial hemorrhage, midline shift or intracranial mass effect. There is calcification at the bilateral globus pallidus nuclei. Cerebral ventricles: No obstructive hydrocephalus. Paranasal sinuses: Visualized sinuses are unremarkable. No fluid levels. Mastoid air cells: Partial opacification of the left mastoid air cells. Bones/joints: Unremarkable. No acute fracture. Soft tissues: Unremarkable. IMPRESSION: No acute intracranial abnormality.
--- NOTE | 2023-11-09 16:07 | XR_ITS ---
PROCEDURE INFORMATION: Exam: XR Chest Exam date and time: 11/09/2023 5:00 PM Age: 68 years old Clinical indication: Other: Dizzy; Additional info: Dizzy, L neck pain TECHNIQUE: Imaging protocol: Radiologic exam of the chest. Views: 1 view. COMPARISON: CR XR CHEST PORTABLE 10/07/2023 4:09 PM FINDINGS: Tubes, catheters and devices: Stable left chest infusion port. Lungs: No airspace consolidation. Pleural spaces: Unremarkable. No pleural effusion. No pneumothorax. Heart/Mediastinum: Cardiac silhouette is magnified by portable technique. Bones/joints: Osteopenia. Degenerative change involving the shoulders and spine. IMPRESSION: No acute cardiopulmonary process.
--- NOTE | 2023-11-09 16:11 | ED_ITS ---
Discharge Plan Disposition Patient Disposition: Home, Self-Care Chief Complaint: Headache Prescriptions Prescriptions: No Action promethazine 25 mg tablet 25 mg PO QID PRN (Reason: nausea and vomiting) Qty: 120 1RF alendronate 70 mg tablet PO Patient Comments: TAKE ONE TABLET BY MOUTH ONCE a WEEK clonazepam [Klonopin] 0.5 mg tablet 0.5 mg PO TID 30 Days Qty: 75 0RF hydrocodone-acetaminophen 7.5-325 mg tablet 1 tab PO Q4H PRN (Reason: Back Pain and abdominal pain) 30 Days Qty: 180 0RF ferrous sulfate 325 mg (65 mg iron) tablet,delayed release (DR/EC) 325 mg PO DAILY 90 Days Qty: 90 4RF lisinopril 10 mg tablet 10 mg PO DAILY Qty: 90 0RF albuterol sulfate [ProAir HFA] 90 mcg/actuation HFA aerosol inhaler 2 puff inhalation Q6HP PRN (Reason: Shortness Of Breath Or Wheezing) spironolactone 25 mg tablet 25 mg PO BIDP PRN (Reason: swelling) loratadine 10 mg tablet 10 mg PO DAILY fluoxetine 40 mg capsule 40 mg PO DAILY potassium chloride 10 mEq capsule, extended release 10 meq PO DAILY omeprazole 40 mg capsule,delayed release(DR/EC) 40 mg PO BID Qty: 60 2RF dicyclomine 20 mg tablet 20 mg PO BID Qty: 60 2RF guaifenesin [Mucinex] 600 mg tablet extended release 12hr 600 mg PO BID PRN (Reason: cough) Qty: 20 0RF fluticasone propionate [Flonase Allergy Relief] 50 mcg/actuation spray,suspension 1 spray intranasal BID PRN (Reason: nasal congestion) Qty: 16 0RF Rx Instructions: administer into each nostril cetirizine [Zyrtec] 10 mg tablet 10 mg PO DAILY Qty: 30 0RF amoxicillin-pot clavulanate 875-125 mg tablet 1 tab PO BID Qty: 20 0RF Referrals Follow up/Referrals: Simone Carlson [Referring] - See instructions Activity Restrictions/Add. Instructions Additional Instructions/Restrictions: At this time it was felt you are safe to be discharged home. If new or worsening symptoms please do not hesitate to return the emergency department. If symptoms persist please follow-up with your family doctor as you are able. Clinical Impressions Clinical Impression: Headache, Neck pain Discharge ED Provider: Willian Prajapati General Adult HPI General Chief complaint: Headache Stated complaint: headache Time Seen by Provider: 11/09/23 15:40 Mode of Arrival: Wheelchair Source of Information: Patient Limitations: No Limitations Description of Symptoms (Recalled from ER Triage Doc. by RN): Patient presents to ED with complaints of severe left side headache radiating down into neck and left shoulder. patient states pain started 40 minutes prior to arrival. Upon assessment patient alert and oriented pupils round and reactive. Denies other symptoms at this time. History of Present Illness HPI narrative: Patient is a 68-year-old female with past medical history of Crohn's disease, anxiety, hypertension who presents emergency department for evaluation of headache. Onset was acute, occurring approximate hour prior to arrival, left- sided, radiating down her neck. Pain is moderate to severe in intensity. Due to persistent symptoms she presents here for continued evaluation. No speech changes, no odynophagia, no jaw claudication, no reported acute extremity weakness. Related Data Home Medications Medication Instructions Recorded Confirmed albuterol sulfate 90 mcg/actuation 2 puff inhalation Q6HP PRN 05/15/23 11/01/23 aerosol inhaler (ProAir HFA) Shortness Of Breath Or Wheezing loratadine 10 mg tablet 10 mg PO DAILY Allergy Symptoms 05/15/23 11/01/23 spironolactone 25 mg tablet 25 mg PO BIDP PRN swelling 05/15/23 11/01/23 fluoxetine 40 mg capsule 40 mg PO DAILY Anxiety 09/03/23 11/01/23 potassium chloride 10 mEq 10 meq PO DAILY Supplement 09/03/23 11/01/23 capsule,extended release alendronate 70 mg tablet mg PO 11/01/23 11/01/23 Previous Rx's Medication Instructions Recorded dicyclomine 20 mg tablet 20 mg PO BID #60 tabs 10/07/23 omeprazole 40 mg capsule,delayed 40 mg PO BID #60 caps 10/07/23 release promethazine 25 mg tablet 25 mg PO QID PRN nausea and 10/09/23 vomiting #120 tabs guaifenesin 600 mg tablet, 600 mg PO BID PRN cough #20 tabs 10/15/23 extended release 12 hr (Mucinex) clonazepam 0.5 mg tablet (Klonopin) 0.5 mg PO TID Anxiety 30 days #75 11/02/23 tabs ferrous sulfate 325 mg (65 mg 325 mg PO DAILY 90 days #90 tabs 11/02/23 iron) tablet,delayed release hydrocodone 7.5 mg-acetaminophen 1 tab PO Q4H PRN Back Pain and 11/02/23 325 mg tablet abdominal pain 30 days #180 tabs amoxicillin 875 mg-potassium 1 tab PO BID #20 tabs 11/06/23 clavulanate 125 mg tablet cetirizine 10 mg tablet (Zyrtec) 10 mg PO DAILY #30 tabs 11/06/23 fluticasone propionate 50 1 spray intranasal BID PRN nasal 11/06/23 mcg/actuation nasal congestion #16 grams spray,suspension (Flonase Allergy Relief) lisinopril 10 mg tablet 10 mg PO DAILY High Blood Pressure 11/07/23 #90 tabs Allergies Allergy/AdvReac Type Severity Reaction Status Date / Time cephalexin [From Keflex] Allergy Severe Difficulty Verified 11/01/23 15:02 Breathing prochlorperazine Allergy Severe Swelling Verified 11/01/23 15:02 [PROCHLORPERAZINE] of Lip/Tongue/Throat codeine [CODEINE] Allergy Unknown VOMITING / Verified 11/01/23 15:02 NAUSEA prednisone [PREDNISONE] Allergy Unknown BP ISSUES Verified 11/01/23 15:02 promethazine [From PHENERGAN] Allergy Unknown Unknown Verified 11/01/23 15:02 allergy reaction metoclopramide [From Reglan] Allergy Nausea Verified 11/01/23 15:02 [facility] Disclaimer: The information contained in this section may have been updated after the patient was seen, as this information can be updated by other users. Medical History Sinus bradycardia Dyspnea Chest pain Insomnia Depression Anxiety Cholecystectomy planned Urinary tract infection Pneumonia Osteoporosis Allergies Edema History of anemia History of constipation Exposure to COVID-19 virus NSAIDs adverse reaction Knee effusion, right Sphincter of Oddi dysfunction Abdominal adhesions Hx of Crohn's disease Positive D dimer HTN (hypertension) Bilateral lower extremity edema Surgical History H/O oral surgery History of appendectomy H/O total hysterectomy History of esophagogastroduodenoscopy (EGD) History of arthroscopy of right knee Status post knee surgery History of intestinal surgery Family History Other Cancer Heart attack Social History Smoking Status: Never smoker second hand exposure: No alcohol intake: never substance use type: denies use current occupational status: disabled Travel in the last 8 weeks: None household members: none housing: apartment number of children: 2 current occupational exposures/hazards: No caffeine: Yes ROS Obtained: Yes Systems reviewed as appropriate & no additional complaints except as documented Physical Exam General General appearance: alert and in no apparent distress Head Head exam: atraumatic, normocephalic and other (No temporal tenderness) Eye Eye exam: Present PERRL and EOMI ENT ENT exam: Present normal oropharynx, mucous membranes moist and TM's normal bilaterally Neck Neck exam: Present normal inspection and full ROM Chest Chest inspection: Present normal inspection and symmetric chest wall rise Respiratory Respiratory exam: Present normal lung sounds bilaterally; Absent respiratory distress Cardiovascular Cardiovascular exam: Present regular rate, normal rhythm and other (Port in place left chest wall) Abdominal Exam Abdominal exam: Present soft; Absent tenderness Extremities Exam Extremities exam: Present normal inspection Neurological Exam Neurological exam: Present alert Psychiatric Psychiatric exam: Present normal affect Skin Skin exam: Present warm and dry Medical Decision Making Grant Inquiry Pt receiving controlled substance: No Vital Signs: 11/09/23 15:39 11/09/23 16:00 11/09/23 16:30 Temperature 98.1 F Temperature Source Oral Pulse Rate 73 65 Pulse Rate [Right] 75 Respiratory Rate 18 14 18 Blood Pressure 170/94 H 124/66 Blood Pressure [Right Arm] 177/96 H Blood Pressure Mean 105 Blood Pressure Mean [Right Arm] 123 Blood Pressure Source [Right Arm] Automatic Cuff 02 Sat by Pulse Oximetry 99 97 97 Oxygen Delivery Method Room Air 11/09/23 17:29 Temperature Temperature Source Pulse Rate 58 L Pulse Rate [Right] Respiratory Rate 14 Blood Pressure 129/73 Blood Pressure [Right Arm] Blood Pressure Mean Blood Pressure Mean [Right Arm] Blood Pressure Source [Right Arm] 02 Sat by Pulse Oximetry 95 Oxygen Delivery Method Lab Data Lab Results 11/09/23 15:45: WBC 10.0, RBC 3.63 L, Hgb 10.2 L, Hct 31.8 L, MCV 87.5, MCH 28.0, MCHC 32.0, RDW 14.9, Plt Count 335, MPV 9.6, Neut % (Auto) 79.3, Lymph % (Auto) 15.7, [place] % (Auto) 2.7, Eos % (Auto) 1.6, Baso % (Auto) 0.5, Neut # (Auto) 7.9 H, Lymph # (Auto) 1.6, [place] # (Auto) 0.3, Eos # (Auto) 0.2, Baso # (Auto) 0.1, ESR 21, Sodium 139, Potassium 4.1, Chloride 113 H, Carbon Dioxide 23, Anion Gap 7.1, BUN 15, Creatinine 0.90, Estimated Creat Clear 63, Estimated GFR 62, Est GFR ( Amer) 75, Glucose 112 H, Calcium 8.8, Total Bilirubin 0.5, AST 29, ALT 16, Alkaline Phosphatase 71, Troponin I < 0.01, Total Protein 7.0, Albumin 4.0, Globulin 3.0, Albumin/Globulin Ratio 1.3 11/09/23 16:12: SARS-CoV-2 (PCR) Not detected, Influenza A Untype (PCR) Not detected, Influenza Type B (PCR) Not detected 11/09/23 17:26: Urine Color Yellow, Urine Appearance Clear, Urine pH 6.0, Ur Specific [place] 1.010, Urine Protein Negative, Urine Glucose (UA) Negative, Urine Ketones Negative, Urine Blood Negative, Urine Nitrate Negative, Urine Bilirubin Negative, Urine Urobilinogen 0.2, Ur Leukocyte Esterase Negative, Urine RBC None, Urine WBC None, Ur Squamous Epith Cells Occasional, Urine Bacteria None 11/09/23 15:45 11/09/23 15:45 Orders (Tests/Meds): ED MEDICATIONS Discontinued Medications Generic Name Dose Route Start Last Admin Trade Name Freq PRN Reason Stop Dose Admin Acetaminophen 1,000 mg 11/09/23 16:07 11/09/23 16:25 Acetaminophen 1,000mg/100ml Vial IV 11/09/23 16:08 1,000 mg ONCE ONE Administration Diphenhydramine HCl 25 mg 11/09/23 17:32 11/09/23 17:50 Diphenhydramine 50mg/Ml Vial IV 11/09/23 17:33 25 mg ONCE ONE Administration Iopamidol 100 ml 11/09/23 17:16 11/09/23 17:17 Iopamidol-370 (76%);100ml Bottle IV 11/09/23 17:17 100 ml ONCE ONE Administration Ketorolac Tromethamine 30 mg 11/09/23 17:32 11/09/23 17:50 Ketorolac 30mg/Ml Vial IV 11/09/23 17:33 30 mg ONCE ONE Administration Ondansetron HCl 4 mg 11/09/23 16:07 11/09/23 16:25 Ondansetron 4mg/2ml Vial IV 11/09/23 16:08 4 mg ONCE ONE Administration Sodium Chloride 40 ml 11/09/23 17:16 11/09/23 17:17 0.9 % Sodium Chloride 50 Ml Vial IV 11/09/23 17:17 40 ml ONCE ONE Administration ORDERS Category Date Time Status CT angio head Stat Cat Scan 11/09/23 16:[address] angio neck Stat Cat Scan 11/09/23 16:[address] head/brain wo con Stat Cat Scan 11/09/23 16:07 Completed CXR --portable [XR chest portable] Stat Exams 11/09/23 16:07 Completed CBC w/Auto Diff [Complete Blood Count Auto Diff] Stat Lab 11/09/23 15:45 Completed CMP [Comprehensive Metabolic Panel] Stat Lab 11/09/23 15:45 Completed ESR [Erythrocyte Sedimentation Rate] Stat Lab 11/09/23 15:45 Completed Rapid PCR Covid and Flu A/B Stat Lab 11/09/23 16:12 Completed Trop I [Troponin I] Stat Lab 11/09/23 15:45 Completed Troponin I Q3H Lab 11/09/23 19:15 Ordered Troponin I Q3H Lab 11/09/23 22:15 Ordered UA [Urinalysis and Microscopic] Stat Lab 11/09/23 17:26 Completed ECG Data Tracing #1: Independently interpreted by me, rate is 73, rhythm is regular, axis is normal, no ST elevation in anatomical contiguous leads, QTc 425. Tracing #2: Independently interpreted by me, rate is 69, rhythm is regular, axis normal, no ST elevation in anatomical contiguous leads, QTc 439. Medical Decision Narrative: In summary patient is a 68-year-old female past medical history described above who presents emergency department for evaluation of left-sided headache. Patient is hemodynamically stable nontoxic-appearing upon arrival, afebrile. Differential diagnosis includes carotid dissection, primary headache, among others. Temporal arteritis is a consideration but is less likely. Workup will be conducted with hematologic labs, noncontrasted CT scan of the head, CTA of the head and neck. No chest pain therefore workup was deferred from that standpoint although considered. Initial workup reviewed by me, hematologic labs are nonactionable, no elevated inflammatory marker, no GENNA, no critical electrolyte abnormality. Initial troponin below detectable limit noncontrasted CT scan of the head shows no acute intracranial abnormality, CTA of the head and neck shows no evidence of stenosis, dissection, or acute abnormality. Given no acute intracranial abnormality with headache and allergy to prochlorperazine Toradol and diphenhydramine will be administered. Upon repeat evaluation patient had resolving headache with normal neurologic status. Given this patient is appropriate for discharge at this time. Patient was given return precautions and will follow-up with her family doctor should symptoms persist. Critical Care Critical Care Time Critical Care Time: No
[2023-11-09 16:15] LABS: Basophils # 0.1 K/mm3 (0-0.2); Basophils % 0.5 % (0.1-2.0); Eosinophils # 0.2 K/mm3 (0.0-0.4); Eosinophils % 1.6 % (0.1-12.0); Hematocrit 31.8 % (37.0-47.0); Hemoglobin 10.2 g/dL (12.2-16.2); Lymphocytes # 1.6 K/mm3 (0.7-4.5); Lymphocytes % 15.7 % (10-50); Mean Corpuscular Volume 87.5 fl (81-99); Mean Platelet Volume 9.6 fl (7.4-10.4); Monocytes # 0.3 K/mm3 (0.1-1.0); Monocytes % 2.7 % (1.7-9.3); Neutrophils # 7.9 K/mm3 (1.8-7.8); Neutrophils % 79.3 % (37.0-80.0); Platelet Count 335 K/mm3 (142-424); Red Blood Count 3.63 M/mm3 (4.20-5.40); Red Cell Distribution Width 14.9 % (11.5-17.5)
[2023-11-09 16:16] LABS: Coronavirus 19, PCR Not Detected (NotDetected); Influenza A, PCR Not Detected (NotDetected); Influenza B, PCR Not Detected (NotDetected)
[2023-11-09 16:17] LABS: Chloride 113 mmol/L (98-107); Potassium 4.1 mmoL/L (3.5-5.1); Sodium 139 mmol/L (136-145)
[2023-11-09 16:20] LABS: Alanine Aminotransferase 16 U/L (12-78); Albumin/Globulin Ratio 1.3 (1.1-1.8); Alkaline Phosphatase 71 U/L (38-126); Anion Gap 7.1 mEq/L (5-15); Aspartate Amino Transferase 29 U/L (14-36); Bilirubin,Total 0.5 mg/dl (0.2-1.3); Blood Urea Nitrogen 15 mg/dl (7-17); Carbon Dioxide 23 mmol/L (22.0-30.0); Creatinine Clearance Estimated 63 mL/min (50-200); Estimated Glomerular Filt Rate 62 ml/min (>60); GFR (African American) 75 ML/MIN (>60)
[2023-11-09 16:21] LABS: Calcium 8.8 mg/dl (8.4-10.2); Glucose 112 mg/dl (74-100)
[2023-11-09] MEDS: ACETAMINOPHEN 1,000MG/100ML VIAL 1000 MG IV (16:25)
[2023-11-09] MEDS: ONDANSETRON 4MG/2ML VIAL 4 MG IV (16:25)
[2023-11-09 16:30] VITALS: BP 124/66; PULSE 65; RESP 18; O2SAT 97
[2023-11-09 16:59] LABS: Troponin I < 0.01 ng/ml (0.00-0.034)
[2023-11-09 17:00] LABS: Erythrocyte Sedimentation Rate 21 mm/hr (0-30)
[2023-11-09] MEDS: IOPAMIDOL-370 (76%);100ML BOTTLE 100 ML IV (17:17)
[2023-11-09] MEDS: 0.9 % SODIUM CHLORIDE 50 ML VIAL 40 ML IV (17:17)
[2023-11-09 17:29] VITALS: BP 129/73; PULSE 58; RESP 14; O2SAT 95
[2023-11-09 17:32] LABS: Microscopic, Urine URINE MICROSCOPIC (MICROSCOPIC)
[2023-11-09 17:40] LABS: Appearance,Urine CLEAR (Clear); Bilirubin,Urine Negative (Negative); Blood, Urine Negative (Negative); Color,Urine YELLOW (Yellow); Glucose,Urine (UA) Negative (Negative); Ketones,Urine Negative (Negative); Leukocyte Esterase,Urine Negative (Negative); Nitrate,Urine Negative (Negative); Protein,Urine Negative (Negative); Urobilinogen,Urine 0.2 EU/dl (0.2)
[2023-11-09] MEDS: KETOROLAC 30MG/ML VIAL 30 MG IV (17:50)
[2023-11-09] MEDS: diphenhydrAMINE 50MG/ML VIAL 25 MG IV (17:50)
[2023-11-09 17:52] LABS: Squamous Epithelial Cell,Urine Occasional #/hpf (0-5)
[2023-11-09 18:00] VITALS: BP 123/79; PULSE 62; RESP 18; O2SAT 94
[2023-11-09 18:24] VITALS: BP 123/70; PULSE 74; RESP 16; TEMP 36.7; O2SAT 99
== END 2023-11-09 18:27 | disposition home or self-care (01) ==
PROVIDERS: Emergency Provider Emergency Medicine; PCP Internal Medicine
DX: R51.9 Headache, unspecified (principal); M54.2 Cervicalgia; M25.512 Pain in left shoulder; K50.90 Crohn's disease, unspecified, without complications; I10 Essential (primary) hypertension; M81.8 Other osteoporosis without current pathological fracture
CPT/HCPCS: 70450; 70496; 70498; 71045; 80053; 81001; 84484; 85025; 85651; 87636; 93005; 96374; 96375; 99285; J0131; J1642; J2405; Q9967

== ENCOUNTER 2023-11-21 09:00 | Outpatient (CLI) | payer MEDICARE, OTHER, SELFPAY ==
--- NOTE | 2023-11-21 09:08 | CA_ITS ---
APPROVED REPORT EXAM: Comprehensive 2D, Doppler, and color-flow Echocardiogram Pre Fabricator: Roseanna Benitez CRT Ht: 5 ft 5 in Wt: 166lbs BSA: 1.83 BP: 146/73 mmHg Indications: Abnormal ECG, Chest Pain, Shortness of Breath, Peripheral Edema, Hypertension/HDD 2D Dimensions LA Volume 71.00 mL LA Volume Index 38.00 mL/m2 (M/F) 16-34 M-Mode Dimensions RVDd 2.72 cm (0.9-2.6) LA Diam 3.95 cm (1.9-4.0) LVDd 4.76 cm (3.5-5.7) LVDs 2.86 cm (3.5-5.7) IVSd 1.36 cm (0.6-1.1) PWd 1.00 cm (0.6-1.1) EF (Teich) 70.50% FS 39.90% EDV (Teich) 105.40 mL TAPSE 2.78 (<1.7) ESV (Teich) 31.10 mL LV Diastology E Decel Time 283 (160-240 msec) E/A Ratio 0.62 MED A' 9.50 cm/s LAT A' 16.10 cm/s Aortic Valve AI PHT 488.00 ms AO Peak GR. 8.80 mmHg Mitral Valve MV A Velocity 95.0 (40-130 cm/s) E/A Ratio 0.62 Pulmonary Valve PV Peak Velocity 93.0 (50-150 cm/s) Tricuspid Valve TR P. Velocity 208.00 cm/s RAP Estimate 10.00 mmHg RVSP 27.30 mmHg Left Ventricle The left ventricle is normal size. The left ventricular systolic function is normal. The left ventricular ejection fraction is within the normal range. Proximal septal thickening is noted. There is normal LV segmental wall motion. Transmitral Doppler flow pattern suggests impaired LV relaxation. LVEF is 60%. Right Ventricle The right ventricle is normal size. The right ventricular systolic function is normal. Atria The left atrium size is normal. The right atrium size is normal. There is no Doppler evidence of interatrial shunt. Aortic Valve The aortic valve opens well. There is no aortic valvular stenosis. No aortic regurgitation is present. Mitral Valve The mitral valve is normal in structure. No evidence of mitral valve stenosis. There is no mitral valve regurgitation noted. Tricuspid Valve The tricuspid valve leaflets are thin and pliable. Trace tricuspid regurgitation. Pulmonic Valve The pulmonary valve is normal in structure. Trace pulmonic regurgitation. Great Vessels The aortic root is normal in size. The ascending aorta is normal in size. IVC is normal in size and collapses >50% with inspiration. Pericardium There is no pericardial effusion. Other Information Study Quality: Fair Conclusion Normal biventricular systolic function. No significant valvular stenosis or regurgitation. Electronically signed by : Soni Cary MD 11/22/2023 11:30:30
--- NOTE | 2023-11-21 09:12 | CT_ITS ---
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 A noncontrast coronary calcium scan was performed. A CT attenuation threshold of 130 Hounsfield units (HU) was used for the detection of calcium in contiguous voxels of 1 sq mm in area to be counted as individual lesions. Bolus tracking in the ascending aorta with a threshold of 180 HU was performed. Immediately afterwards, ECG synchronized cardiac CT was then performed from the cardiac base to apex using retrospective gating with ECG tube current modulation. A total of 85 mL of Isovue 370 mg/mL contrast medium was administered at 5 mL/sec followed by a saline flush using a biphasic injection protocol. A tube voltage of 120 KVp was used. The patient received the following medications prior to the cardiac CT. 50 mg of oral metoprolol 15 mg of oral ivabradine 0.8 mg of sublingual nitroglycerin The average heart rate at the time of acquisition was 49 bpm and regular. Image Reconstruction Transaxial images were reconstructed at 0.67 mm slide thickness. Data was reviewed interactively on an advanced workstation capable of 2 and 3-dimensional displays in all conventional reconstruction formats, including multiplanar reformations, maximum intensity projections, curved multiplanar reformations, and volume rendered reconstructions. When applicable, selected routine images describing the relevant coronary anatomy and pathology were saved and sent to PACS. Complications None Technical Quality Overall image quality was good. Coronary artery opacification was adequate. Total DLP (Dose-Length Product) is 1667.1 mGy-cm. The reported value represents the total of one or more individual components during the CT acquisition of this date and at this time, and as such, the same value may appear in more than one CT report depending on the interpreting/reporting physicians. COMPARISON None FINDINGS CT Coronary Calcium Scoring LMA (Left Main Artery) = 0 LAD (Left Anterior Descending) = 0 LCX (Left Coronary Circumflex) = 0 RCA (Right Coronary Artery) = 0 Total Calcium Score = 0 using the AJ-130 method. The interpretation of the calcium heart score is based on the following continuum*: 0 = no calcified plaque detected (risk of coronary artery disease is very low ??? less than 5%) 1-10 = calcium detected in extremely minimal levels (risk of coronary diseases is still low ??? less than 10%) 11-100 = mild levels of plaque detected with certainty (mild or minimal narrowing of heart arteries is likely) 101-400 = definite,at least moderate levels of plaque detected (relatively high risk of a heart attack within 3-5 years) >401-999 = extensive levels of plaque detected (high risk of heart attack, high levels of vascular disease are present, high likelihood of at least one significant coronary narrowing) *The calcium heart score quantifies the burden of coronary calcification/plaque in the coronary arteries. The calcium heart score is not able to evaluate the presence or burden of non-calcified (i.e. soft) plaque. There is no identifiable calcification in the aortic valve, mitral annulus or mitral valve, pericardium, or myocardium. Coronary CT Angiography The coronary arterial system is right dominant. Quantitative Stenosis Grading: Left Main (LM): The left main originates normally from the left sinus of Valsalva. The LM bifurcates into the left anterior descending artery and left circumflex artery. The LM is patent with no evidence of atherosclerosis. Left Anterior Descending (LAD) and Diagonal Branches: The LAD gives off 2 diagonal branches. The LAD and its branches are patent with no evidence of atherosclerosis. There is no evidence of LAD-myocardial bridge. Ramus-intermedius (RI): The RI is patent. Left Circumflex (LCX) and Obtuse Marginals (OM): The LCX gives off 1 Obtuse Marginal (OM) branch. The LCX and its branches are patent with no evidence of atherosclerosis. Right Coronary Artery (RCA): The RCA originates normally from the right sinus of Valsalva. The RCA gives off a posterior descending artery (PDA) and posterolateral (PL) branches. The RCA and its branches are patent with no evidence of atherosclerosis. Non-Coronary Cardiac Findings: Analysis of the left ventricular (LV) structure and function was performed after 3-D reconstruction of the LV from axial images, with user-corrected automatic contouring for assessment of LV volumes and user-defined reconstruction from oblique planes for measurement of 3-D cardiac structure and function. -The left ventricle systolic function is normal. -There is no left atrial appendage filling defect. Two right pulmonary veins and two left pulmonary veins drain normally into the left atrium. -No pericardial thickening or calcification. -Central and branch pulmonary arteries in the [id number] are unremarkable. -Thoracic aorta within the visualized thoracic aortic-branches in the [id number] is unremarkable. Extracardiac Structures No significant extra-cardiac findings. Note, however, that this study is focused on the cardiac findings. IMPRESSION -No coronary calcification with an Agatston score = 0 using the AJ-130 method. -No evidence of significant flow-limiting atherosclerosis of the coronary arteries. -CAD-RADS 0. Management recommendations per ACC/AHA guidelines*, as clinically appropriate. *Recommendations: CAD RADS 0: Reassurance. Consider non-atherosclerotic causes of chest pain. CAD RADS 1: Consider non-atherosclerotic causes of chest pain. Consider preventive therapy and risk factor modification. CAD RADS 2: Consider non-atherosclerotic causes of chest pain. Consider preventive therapy and risk factor modification, particularly for patients with nonobstructive plaque in multiple segments. CAD RADS 3: Consider further functional testing. Consider symptom-guided anti-ischemic and preventive pharmacotherapy as well as risk factor modification per published guideline statements. CAD RADS 4A: Consider further functional testing or invasive coronary angiography with revascularization per published guideline statements. Consider symptom-guided anti-ischemic and preventive pharmacotherapy as well as risk factor modification per published guideline statements. CAD RADS 4B: Invasive coronary angiography recommended with revascularization per published guideline statements. Consider symptom-guided anti-ischemic and preventive pharmacotherapy as well as risk factor modification per published guideline statements. CAD RADS 5: Consider invasive angiography and/or viability assessment with revascularization per published guideline statements. Consider symptom-guided anti-ischemic and preventive pharmacotherapy as well as risk factor modification per published guideline statements. CRITICAL RESULT None COMMUNICATION Per this written report The coronary and cardiac findings of this CCTA were reviewed, reported, and signed by Clinton Cary MD (Woodenware Assembler) Conclusion Electronically signed by : Soni Cary MD 11/22/2023 11:26:50
[2023-11-21 10:40] VITALS: BP 153/99; PULSE 69; RESP 18; O2SAT 96; BMI 27.9
[2023-11-21] MEDS: METOPROLOL TARTRATE 50MG TABLET *IVABRADINE+METOPROLOL REGIMINE 50 MG PO (10:40)
[2023-11-21] MEDS: IVABRADINE HCL 7.5MG TABLET *IVABRADINE+METOPROLOL REGIMINE 15 MG PO (10:40)
[2023-11-21 11:15] VITALS: BP 137/99; PULSE 58; RESP 18; O2SAT 99
[2023-11-21] MEDS: NITROGLYCERIN 0.4MG SL TABLET 0.800000000000000044 MG SL (11:15)
[2023-11-21 11:20] VITALS: BP 145/54; PULSE 52; RESP 18; O2SAT 99
[2023-11-21 11:25] VITALS: BP 107/62; PULSE 52; RESP 18; O2SAT 99
[2023-11-21 11:35] VITALS: BP 137/64; PULSE 52; RESP 18; O2SAT 99
[2023-11-21] MEDS: IOPAMIDOL-370 (76%);100ML BOTTLE 85 ML IV (12:06)
[2023-11-21] MEDS: 0.9 % SODIUM CHLORIDE 50 ML VIAL IV (12:06)
[2023-11-21] MEDS: SODIUM CHLORIDE 0.9% 10ML SYR (RAD ONLY) 10 ML IV (12:07)
== END 2023-11-21 23:59 | disposition home or self-care (01) ==
PROVIDERS: PCP Internal Medicine; Visit Provider Internal Medicine
DX: R00.1 Bradycardia, unspecified (principal); R60.9 Edema, unspecified; R06.02 Shortness of breath; R06.00 Dyspnea, unspecified; R06.01 Orthopnea; R07.9 Chest pain, unspecified
CPT/HCPCS: 75571; 75574; 93306; J1642; Q9967

== ENCOUNTER 2023-12-01 10:23 | Outpatient (CLI) | payer MEDICARE, OTHER, SELFPAY ==
--- NOTE | 2023-12-01 10:35 | XR_ITS ---
FINAL REPORT CLINICAL HISTORY: R Knee pain FINDINGS: RIGHT KNEE Three views demonstrate no acute fracture or dislocation. There is moderate narrowing of the medial compartment joint space. There are small osteophytes at the medial joint margin. There are small osteophytes along the undersurface of the patella. No acute soft tissue abnormality is seen. IMPRESSION: Mild to moderate changes of osteoarthritis at the medial compartment and patella femoral joint space. Reviewed, Interpreted and Dictated by Bill Thomas MD Transcribed by Nidia Turner Authenticated and [facility]
== END 2023-12-01 23:59 ==
LOC: RAD 10:24
PROVIDERS: PCP Internal Medicine; Visit Provider Nurse Practitioner Family
DX: M25.561 Pain in right knee (principal)
CPT/HCPCS: 73562

== ENCOUNTER 2023-12-01 17:56 | Emergency (ER) | payer MEDICARE, OTHER, SELFPAY ==
[2023-12-01 17:57] VITALS: BP 130/79; PULSE 60; RESP 18; TEMP 36.8; O2SAT 97; BMI 28.6
--- NOTE | 2023-12-01 18:21 | ED_ITS ---
Discharge Plan Disposition Patient Disposition: Home, Self-Care Prescriptions Prescriptions: New dexamethasone 6 mg tablet 6 mg PO DAILY 5 Days Qty: 5 0RF No Action lisinopril 20 mg tablet 20 mg PO DAILY Qty: 90 1RF azelastine 137 mcg (0.1 %) aerosol,spray 2 spray intranasal BID Qty: 30 3RF Rx Instructions: administer into each nostril promethazine 25 mg tablet 25 mg PO QID PRN (Reason: nausea and vomiting) Qty: 120 1RF alendronate 70 mg tablet 70 mg PO DAILY Patient Comments: TAKE ONE TABLET BY MOUTH ONCE a WEEK clonazepam [Klonopin] 0.5 mg tablet 0.5 mg PO TID 30 Days Qty: 75 0RF naproxen 500 mg tablet 500 mg PO BID Qty: 30 0RF hydrocodone-acetaminophen 7.5-325 mg tablet 1 tab PO Q4H PRN (Reason: Back Pain and abdominal pain) 30 Days Qty: 180 0RF ferrous sulfate 325 mg (65 mg iron) tablet,delayed release (DR/EC) 325 mg PO DAILY 90 Days Qty: 90 4RF cholecalciferol (vitamin D3) 250 mcg (10,000 unit) capsule 250 mcg PO DAILY 60 Days Qty: 60 2RF fluoxetine 40 mg capsule See Rx Instructions .ROUTE .COMPLEX Qty: 30 2RF Dose Instruction: TAKE ONE CAPSULE BY MOUTH EVERY DAY Rx Instructions: TAKE ONE CAPSULE BY MOUTH EVERY DAY albuterol sulfate [ProAir HFA] 90 mcg/actuation HFA aerosol inhaler 2 puff inhalation Q6HP PRN (Reason: Shortness Of Breath Or Wheezing) spironolactone 25 mg tablet 25 mg PO BIDP PRN (Reason: swelling) loratadine 10 mg tablet 10 mg PO DAILY potassium chloride 10 mEq capsule, extended release 10 meq PO DAILY omeprazole 40 mg capsule,delayed release(DR/EC) 40 mg PO BID Qty: 60 2RF dicyclomine 20 mg tablet 20 mg PO BID Qty: 60 2RF guaifenesin [Mucinex] 600 mg tablet extended release 12hr 600 mg PO BID PRN (Reason: cough) Qty: 20 0RF fluticasone propionate [Flonase Allergy Relief] 50 mcg/actuation spray,suspension 1 spray intranasal BID PRN (Reason: nasal congestion) Qty: 16 0RF Rx Instructions: administer into each nostril Referrals Follow up/Referrals: Librado Gilmore DO [Primary Care Provider] - See instructions Activity Restrictions/Add. Instructions Additional Instructions/Restrictions: Follow-up with your family doctor guarding this visit to the emergency department. Clinical Impressions Clinical Impression: Acute pain of right knee Discharge ED Provider: Rajendra Mann General Adult HPI General Chief complaint: Extremity Injury, Lower Stated complaint: AO04/18 fall RT knee inj Time Seen by Provider: 12/01/23 18:01 Mode of Arrival: Wheelchair Source of Information: Patient Limitations: No Limitations Description of Symptoms (Recalled from ER Triage Doc. by RN): c/o right knee pain after falling yesterday when she tripped over a box, pt states that she seen her pcp for right knee pain yesterday, had an x-ray today for right knee, reports she fell in between seeing the pcp and getting th x-ray, denies any other injuries at this time. History of Present Illness HPI narrative: 68-year-old female history of chronic pain, chronic right knee pain due to osteoarthritis having previous knee arthroscopy [address] Noel here at [facility] presenting with right knee pain. Patient states she is fallen twice in the last couple of days. Most recently was yesterday, 11/29. Had x-rays done of the knee today. I independently interpreted these x- rays, they were negative. Comes in wondering if she can have anything else for pain. She has tried ice and heat without relief. Able to bear weight, but with moderate pain Please note that above description of symptoms, in this electronic medical record under categorization of recalled from ER triage doctor by RN are reflective of an initial nursing assessment, however, is not reflective of my full history and physical exam that was personally taken and clarified. Consequentially, this preceding description of symptoms, which may include the patient's categorized chief complaint in the EMR, do not reflect my personal clinical impression, and the ultimate description of history of present illness and patient stated complaints should be deferred to this section of the note. Unless stated otherwise or congruent with this section of the note, additional signs, symptoms, or incongruence should be interpreted as inaccurate with my clinical impression. Related Data Home Medications Medication Instructions Recorded Confirmed albuterol sulfate 90 mcg/actuation 2 puff inhalation Q6HP PRN 05/15/23 11/30/23 aerosol inhaler (ProAir HFA) Shortness Of Breath Or Wheezing loratadine 10 mg tablet 10 mg PO DAILY Allergy Symptoms 05/15/23 11/30/23 spironolactone 25 mg tablet 25 mg PO BIDP PRN swelling 05/15/23 11/22/23 potassium chloride 10 mEq 10 meq PO DAILY Supplement 09/03/23 11/30/23 capsule,extended release alendronate 70 mg tablet 70 mg PO DAILY 11/01/23 11/30/23 Previous Rx's Medication Instructions Recorded dicyclomine 20 mg tablet 20 mg PO BID #60 tabs 10/07/23 omeprazole 40 mg capsule,delayed 40 mg PO BID #60 caps 10/07/23 release promethazine 25 mg tablet 25 mg PO QID PRN nausea and 10/09/23 vomiting #120 tabs guaifenesin 600 mg tablet, 600 mg PO BID PRN cough #20 tabs 10/15/23 extended release 12 hr (Mucinex) clonazepam 0.5 mg tablet (Klonopin) 0.5 mg PO TID Anxiety 30 days #75 11/02/23 tabs ferrous sulfate 325 mg (65 mg 325 mg PO DAILY 90 days #90 tabs 11/02/23 iron) tablet,delayed release fluticasone propionate 50 1 spray intranasal BID PRN nasal 11/06/23 mcg/actuation nasal congestion #16 grams spray,suspension (Flonase Allergy Relief) azelastine 137 mcg (0.1 %) nasal 2 spray intranasal BID #30 mL 11/13/23 spray aerosol cholecalciferol (vitamin D3) 250 250 mcg PO DAILY 60 days #60 caps 11/14/23 mcg (10,000 unit) capsule lisinopril 20 mg tablet 20 mg PO DAILY High Blood Pressure 11/22/23 #90 tabs fluoxetine 40 mg capsule See Rx Instructions .Route 11/27/23 .COMPLEX #30 caps hydrocodone 7.5 mg-acetaminophen 1 tab PO Q4H PRN Back Pain and 11/30/23 325 mg tablet abdominal pain 30 days #180 tabs naproxen 500 mg tablet 500 mg PO BID #30 tabs 11/30/23 dexamethasone 6 mg tablet 6 mg PO DAILY 5 days #5 tabs 12/01/23 Allergies Allergy/AdvReac Type Severity Reaction Status Date / Time cephalexin [From Keflex] Allergy Severe Difficulty Verified 11/30/23 14:53 Breathing prochlorperazine Allergy Severe Swelling Verified 11/30/23 14:53 [PROCHLORPERAZINE] of Lip/Tongue/Throat codeine [CODEINE] Allergy Unknown VOMITING / Verified 11/30/23 14:53 NAUSEA prednisone [PREDNISONE] Allergy Unknown BP ISSUES Verified 11/30/23 14:53 promethazine [From PHENERGAN] Allergy Unknown Unknown Verified 11/30/23 14:53 allergy reaction metoclopramide [From Reglan] Allergy Nausea Verified 11/30/23 14:53 [facility] Disclaimer: The information contained in this section may have been updated after the patient was seen, as this information can be updated by other users. Medical History Dizziness Sinus bradycardia Dyspnea Chest pain Insomnia Depression Anxiety Cholecystectomy planned Urinary tract infection Pneumonia Osteoporosis Allergies Edema History of anemia History of constipation Exposure to COVID-19 virus NSAIDs adverse reaction Knee effusion, right Sphincter of Oddi dysfunction Abdominal adhesions Hx of Crohn's disease This apparently was not the issue for why Angelica was admitted to the hospital recently. She was placed on sucralfate. There was some mention of ulcers but I do not see that in the discharge summary. Positive D dimer HTN (hypertension) Patient was 104/68 today. At discharge she was 146/73. She is currently taking spironolactone and lisinopril. She is following with cardiology, however has not seen them for some time. I am concerned about this chest pain that she is experiencing and other symptoms. I did get an EKG which was unremarkable and similar to previous EKGs done over the last year. However we will send her to cardiology today and they will see her at 3 PM. Bilateral lower extremity edema Surgical History H/O oral surgery History of appendectomy H/O total hysterectomy History of esophagogastroduodenoscopy (EGD) History of arthroscopy of right knee Status post knee surgery Status post right knee arthroscopy with partial medial meniscectomy date of surgery May 16, 2022 History of intestinal surgery Family History Other Cancer Heart attack Social History Smoking Status: Never smoker second hand exposure: No alcohol intake: never substance use type: denies use current occupational status: disabled Travel in the last 8 weeks: None household members: none housing: apartment number of children: 2 current occupational exposures/hazards: No caffeine: Yes ROS Obtained: Yes All systems reviewed & no additional complaints except as documented Physical Exam General General appearance: alert and in no apparent distress Head Head exam: atraumatic and normocephalic Eye Eye exam: Present normal appearance, PERRL and EOMI ENT ENT exam: Present mucous membranes moist Neck Neck exam: Present normal inspection, full ROM and trachea midline Respiratory Respiratory exam: Absent respiratory distress, wheezes, stridor, accessory muscle use or prolonged expiratory phase Cardiovascular Cardiovascular exam: Present normal rhythm Abdominal Exam Abdominal exam: Present soft; Absent distention, tenderness, guarding, rebound or rigidity Extremities Exam Extremities exam: Present other (Right knee is larger than left, this is chronic per patient. Range of motion intact, but limited secondary to pain. Neurovascularly intact. No obvious effusion.); Absent edema Neurological Exam Neurological exam: Present alert, oriented X3, CN II-XII intact and normal gait; Absent motor sensory deficit Skin Skin exam: Present warm and dry; Absent diaphoresis or erythema Medical Decision Making Medical Records Medical records reviewed: Yes I reviewed the patient's medical records. Grant Inquiry Pt receiving controlled substance: No Grant was queried for this patient: No Vital Signs: 12/01/23 17:57 Temperature 98.2 F Temperature Source Oral Pulse Rate [Left Radial] 60 Respiratory Rate 18 Blood Pressure [Right Arm] 130/79 Blood Pressure Mean [Right Arm] 96 Blood Pressure Source [Right Arm] Automatic Cuff Blood Pressure Position [Right Arm] Sitting 02 Sat by Pulse Oximetry 97 Oxygen Delivery Method Room Air Medical Decision Narrative: 68-year-old female history of chronic pain, chronic right knee pain due to osteoarthritis having previous knee arthroscopy [address] Noel here at [facility] presenting with right knee pain. Patient states she is fallen twice in the last couple of days. Most recently was yesterday, 11/29. Had x-rays done of the knee today. I independently interpreted these x- rays, they were negative. Comes in wondering if she can have anything else for pain. She has tried ice and heat without relief. Able to bear weight, but with moderate pain. History obtained with patient. On my evaluation, patient well- appearing, knee is structurally intact. I independently interpreted x-rays from this morning, 11/30, they were negative for any acute bony abnormality. Because of this, patient be given steroid for acute inflammation and discharged home. It was discussed with patient that she will not be receiving opiate medications today despite direct asking because patient has chronic pain to this knee, no acute abnormality to require these medications. She voiced her understanding. Because patient at baseline without signs or symptoms of clinical decompensation, deemed appropriate for discharge. Results were relayed to patient who voiced understanding and were agreeable to outpatient management and follow up. I discussed my clinical impression with patient and answered all questions. At this time, the evidence for any other entities in the differential is insufficient to warrant any further testing or ED observation. This was explained as well. Advisory was given that persistent or worsening symptoms require further evaluation. I confirmed the understanding of this discussion. Critical Care Critical Care Time Critical Care Time: No
[2023-12-01] MEDS: DEXAMETHASONE 4MG TABLET 10 MG PO (18:26)
[2023-12-01 18:30] VITALS: BP 123/64; PULSE 58; RESP 18; TEMP 36.6; O2SAT 97
== END 2023-12-01 18:33 | disposition home or self-care (01) ==
PROVIDERS: Emergency Provider Emergency Medicine; PCP Internal Medicine
DX: M25.561 Pain in right knee (principal); W19.XXXA Unspecified fall, initial encounter; I10 Essential (primary) hypertension
CPT/HCPCS: 73562; 99283

== ENCOUNTER 2023-12-02 12:55 | Emergency (ER) | payer MEDICARE, OTHER, SELFPAY ==
[2023-12-02 12:57] VITALS: BP 130/86; PULSE 85; RESP 18; TEMP 36.7; O2SAT 96; BMI 28.6
[2023-12-02 13:07] VITALS: BP 138/86; PULSE 77; RESP 18; O2SAT 95
--- NOTE | 2023-12-02 13:31 | PC.NURSE ---
PT PROVIDED WARM BLANKET, CALL LIGHT WITHIN REACH
--- NOTE | 2023-12-02 13:33 | PC.NURSE ---
DR BYRNES AT BEDSIDE
--- NOTE | 2023-12-02 13:54 | ECG_ITS ---
APPROVED REPORT Exam: Resting ECG HR:64 bpm ECG Measurements Heart Rate 64 AXES MD 221 P 61 QRSd 104 QRS 27 QT 420 T 47 QTc 429 Conclusion SINUS RHYTHM WITH SINUS ARRHYTHMIA WITH FIRST DEGREE AV BLOCK ABNORMAL ECG UNCONFIRMED REPORT Electronically signed by : VIVIEN ZAMAN, 12/10/2023 01:22:15
[2023-12-02] MEDS: ONDANSETRON 4MG ODT 4 MG SL (13:59)
[2023-12-02 14:01] VITALS: BP 141/82; PULSE 68; RESP 18; O2SAT 98
--- NOTE | 2023-12-02 14:09 | PC.NURSE ---
PT DOES NOT WANT TO TAKE THE VISTARIL SAYS SHE IS ALLERGIC TO IT IT CAUSES HER TO HAVE NIGHTMARES
[2023-12-02 14:32] VITALS: BP 141/82; PULSE 68; RESP 18; TEMP 36.9; O2SAT 97
--- NOTE | 2023-12-02 14:51 | HMH.EDGENADL ---
Discharge Plan Disposition Patient Disposition: Home, Self-Care Condition: Good Prescriptions Prescriptions: New ondansetron 4 mg tablet,disintegrating 4 mg PO Q8H PRN (Reason: nausea and vomiting) 4 Days Qty: 12 0RF No Action lisinopril 20 mg tablet 20 mg PO DAILY Qty: 90 1RF azelastine 137 mcg (0.1 %) aerosol,spray 2 spray intranasal BID Qty: 30 3RF Rx Instructions: administer into each nostril promethazine 25 mg tablet 25 mg PO QID PRN (Reason: nausea and vomiting) Qty: 120 1RF alendronate 70 mg tablet 70 mg PO DAILY Patient Comments: TAKE ONE TABLET BY MOUTH ONCE a WEEK clonazepam [Klonopin] 0.5 mg tablet 0.5 mg PO TID 30 Days Qty: 75 0RF naproxen 500 mg tablet 500 mg PO BID Qty: 30 0RF hydrocodone-acetaminophen 7.5-325 mg tablet 1 tab PO Q4H PRN (Reason: Back Pain and abdominal pain) 30 Days Qty: 180 0RF ferrous sulfate 325 mg (65 mg iron) tablet,delayed release (DR/EC) 325 mg PO DAILY 90 Days Qty: 90 4RF cholecalciferol (vitamin D3) 250 mcg (10,000 unit) capsule 250 mcg PO DAILY 60 Days Qty: 60 2RF fluoxetine 40 mg capsule See Rx Instructions .ROUTE .COMPLEX Qty: 30 2RF Dose Instruction: TAKE ONE CAPSULE BY MOUTH EVERY DAY Rx Instructions: TAKE ONE CAPSULE BY MOUTH EVERY DAY albuterol sulfate [ProAir HFA] 90 mcg/actuation HFA aerosol inhaler 2 puff inhalation Q6HP PRN (Reason: Shortness Of Breath Or Wheezing) spironolactone 25 mg tablet 25 mg PO BIDP PRN (Reason: swelling) loratadine 10 mg tablet 10 mg PO DAILY potassium chloride 10 mEq capsule, extended release 10 meq PO DAILY omeprazole 40 mg capsule,delayed release(DR/EC) 40 mg PO BID Qty: 60 2RF dicyclomine 20 mg tablet 20 mg PO BID Qty: 60 2RF guaifenesin [Mucinex] 600 mg tablet extended release 12hr 600 mg PO BID PRN (Reason: cough) Qty: 20 0RF fluticasone propionate [Flonase Allergy Relief] 50 mcg/actuation spray,suspension 1 spray intranasal BID PRN (Reason: nasal congestion) Qty: 16 0RF Rx Instructions: administer into each nostril dexamethasone 6 mg tablet 6 mg PO DAILY 5 Days Qty: 5 0RF Referrals Follow up/Referrals: Librado Gilmore DO [Primary Care Provider] - See instructions Activity Restrictions/Add. Instructions Additional Instructions/Restrictions: You were evaluated in the emergency department today. Please continue taking your prescriptions at home as prescribed. I prescribed Zofran for you to have as needed for nausea and vomiting. Return for new or worsening symptoms. Follow-up with your primary care provider over the next week for reassessment. Clinical Impressions Clinical Impression: Generalized anxiety disorder with panic attacks, Nausea & vomiting Instructions Patient Instructions: Anxiety Disorders Discharge ED Provider: Luisana Bergman General Adult HPI General Chief complaint: Anxiety Stated complaint: soa rapid pulse high blood pressure Time Seen by Provider: 12/02/23 13:18 Mode of Arrival: Ambulatory Source of Information: Patient Limitations: No Limitations Description of Symptoms (Recalled from ER Triage Doc. by RN): anxiety attack History of Present Illness HPI narrative: This patient is a 68-year-old female presenting to the emergency department with concern that she is having an anxiety attack. She notes that her primary care provider has been decreasing her anxiety medication and is not working at home. She states that she wants something for anxiety. She also notes that she has been nauseated all night. She is requesting something for nausea, anxiety, and chronic pain. No other concerns noted at this time. Related Data Home Medications Medication Instructions Recorded Confirmed albuterol sulfate 90 mcg/actuation 2 puff inhalation Q6HP PRN 05/15/23 11/30/23 aerosol inhaler (ProAir HFA) Shortness Of Breath Or Wheezing loratadine 10 mg tablet 10 mg PO DAILY Allergy Symptoms 05/15/23 11/30/23 spironolactone 25 mg tablet 25 mg PO BIDP PRN swelling 05/15/23 11/22/23 potassium chloride 10 mEq 10 meq PO DAILY Supplement 09/03/23 11/30/23 capsule,extended release alendronate 70 mg tablet 70 mg PO DAILY 11/01/23 11/30/23 Previous Rx's Medication Instructions Recorded dicyclomine 20 mg tablet 20 mg PO BID #60 tabs 10/07/23 omeprazole 40 mg capsule,delayed 40 mg PO BID #60 caps 10/07/23 release promethazine 25 mg tablet 25 mg PO QID PRN nausea and 10/09/23 vomiting #120 tabs guaifenesin 600 mg tablet, 600 mg PO BID PRN cough #20 tabs 10/15/23 extended release 12 hr (Mucinex) clonazepam 0.5 mg tablet (Klonopin) 0.5 mg PO TID Anxiety 30 days #75 11/02/23 tabs ferrous sulfate 325 mg (65 mg 325 mg PO DAILY 90 days #90 tabs 11/02/23 iron) tablet,delayed release fluticasone propionate 50 1 spray intranasal BID PRN nasal 11/06/23 mcg/actuation nasal congestion #16 grams spray,suspension (Flonase Allergy Relief) azelastine 137 mcg (0.1 %) nasal 2 spray intranasal BID #30 mL 11/13/23 spray aerosol cholecalciferol (vitamin D3) 250 250 mcg PO DAILY 60 days #60 caps 11/14/23 mcg (10,000 unit) capsule lisinopril 20 mg tablet 20 mg PO DAILY High Blood Pressure 11/22/23 #90 tabs fluoxetine 40 mg capsule See Rx Instructions .Route 11/27/23 .COMPLEX #30 caps hydrocodone 7.5 mg-acetaminophen 1 tab PO Q4H PRN Back Pain and 11/30/23 325 mg tablet abdominal pain 30 days #180 tabs naproxen 500 mg tablet 500 mg PO BID #30 tabs 11/30/23 dexamethasone 6 mg tablet 6 mg PO DAILY 5 days #5 tabs 12/01/23 ondansetron 4 mg disintegrating 4 mg PO Q8H PRN nausea and 12/02/23 tablet vomiting 4 days #12 tabs Allergies Allergy/AdvReac Type Severity Reaction Status Date / Time cephalexin [From Keflex] Allergy Severe Difficulty Verified 11/30/23 14:53 Breathing prochlorperazine Allergy Severe Swelling Verified 11/30/23 14:53 [PROCHLORPERAZINE] of Lip/Tongue/Throat codeine [CODEINE] Allergy Unknown VOMITING / Verified 11/30/23 14:53 NAUSEA prednisone [PREDNISONE] Allergy Unknown BP ISSUES Verified 11/30/23 14:53 promethazine [From PHENERGAN] Allergy Unknown Unknown Verified 11/30/23 14:53 allergy reaction metoclopramide [From Reglan] Allergy Nausea Verified 11/30/23 14:53 hydroxyzine [From Vistaril] AdvReac Verified 12/02/23 14:08 [facility] Disclaimer: The information contained in this section may have been updated after the patient was seen, as this information can be updated by other users. Medical History Dizziness Sinus bradycardia Dyspnea Chest pain Insomnia Depression Anxiety Cholecystectomy planned Urinary tract infection Pneumonia Osteoporosis Allergies Edema History of anemia History of constipation Exposure to COVID-19 virus NSAIDs adverse reaction Knee effusion, right Sphincter of Oddi dysfunction Abdominal adhesions Hx of Crohn's disease This apparently was not the issue for why Angelica was admitted to the hospital recently. She was placed on sucralfate. There was some mention of ulcers but I do not see that in the discharge summary. Positive D dimer HTN (hypertension) Patient was 104/68 today. At discharge she was 146/73. She is currently taking spironolactone and lisinopril. She is following with cardiology, however has not seen them for some time. I am concerned about this chest pain that she is experiencing and other symptoms. I did get an EKG which was unremarkable and similar to previous EKGs done over the last year. However we will send her to cardiology today and they will see her at 3 PM. Bilateral lower extremity edema Surgical History H/O oral surgery History of appendectomy H/O total hysterectomy History of esophagogastroduodenoscopy (EGD) History of arthroscopy of right knee Status post knee surgery Status post right knee arthroscopy with partial medial meniscectomy date of surgery May 16, 2022 History of intestinal surgery Family History Other Cancer Heart attack Social History Smoking Status: Never smoker second hand exposure: No alcohol intake: never substance use type: denies use current occupational status: disabled Travel in the last 8 weeks: None household members: none housing: apartment number of children: 2 current occupational exposures/hazards: No caffeine: Yes ROS Obtained: Yes All systems reviewed & no additional complaints except as documented Physical Exam General General appearance: alert and in no apparent distress Head Head exam: atraumatic and normocephalic Eye Eye exam: Present normal appearance, PERRL and EOMI ENT ENT exam: Present normal exam, normal oropharynx, mucous membranes moist and normal external ear exam Neck Neck exam: Present normal inspection, full ROM and trachea midline; Absent tenderness Chest Chest inspection: Present normal inspection and symmetric chest wall rise; Absent tenderness Respiratory Respiratory exam: Present normal lung sounds bilaterally; Absent respiratory distress, wheezes, stridor or accessory muscle use Cardiovascular Cardiovascular exam: Present regular rate and normal rhythm Abdominal Exam Abdominal exam: Present soft; Absent distention, tenderness or guarding Extremities Exam Extremities exam: Present normal inspection, full ROM and normal capillary refill; Absent tenderness or edema Back Exam Back exam: Present normal inspection and full ROM; Absent tenderness Neurological Exam Neurological exam: Present alert, oriented X3, CN II-XII intact and normal gait; Absent motor sensory deficit Psychiatric Psychiatric exam: Present normal affect and normal mood Skin Skin exam: Present warm and dry Medical Decision Making Medical Records Medical records reviewed: Yes I reviewed the patient's medical records. Grant Inquiry Pt receiving controlled substance: No Vital Signs: 12/02/23 12:57 12/02/23 13:07 12/02/23 14:01 Temperature 98.1 F Temperature Source Oral Pulse Rate 77 68 Pulse Rate [Right] 85 Respiratory Rate 18 18 18 Blood Pressure 138/86 141/82 H Blood Pressure [Right Arm] 130/86 Blood Pressure Mean 103 103 Blood Pressure Mean [Right Arm] 100 02 Sat by Pulse Oximetry 96 95 98 Oxygen Delivery Method Room Air 12/02/23 14:32 Temperature 98.4 F Temperature Source Oral Pulse Rate 68 Pulse Rate [Right] Respiratory Rate 18 Blood Pressure 141/82 H Blood Pressure [Right Arm] Blood Pressure Mean Blood Pressure Mean [Right Arm] 02 Sat by Pulse Oximetry Oxygen Delivery Method Room Air Lab Data Lab results reviewed: Yes I reviewed the patient's lab results. Orders (Tests/Meds): ED MEDICATIONS Discontinued Medications Generic Name Dose Route Start Last Admin Trade Name Freq PRN Reason Stop Dose Admin Hydroxyzine Pamoate 25 mg 12/02/23 13:41 12/02/23 14:03 Hydroxyzine Pamoate 25mg Capsule PO 12/02/23 13:42 Not Given ONCE ONE Ondansetron HCl 4 mg 12/02/23 13:58 12/02/23 13:59 Ondansetron 4mg Odt SL 12/02/23 13:59 4 mg ONCE ONE Administration ECG Data Tracing #1: I reviewed this ECG and interpreted as documented below: Normal sinus rhythm with a ventricular rate of [address] changes concerning for ischemia. ECG initial impression date: 12/02/23 ECG initial impression time: 13:56 Medical Decision Narrative: In summary, this patient is a 68-year-old female presenting to the Emergency Department for evaluation of anxiety and nausea. Differential diagnoses considered include but are not limited to panic attack, gastroenteritis, colitis. Ruling out the most morbid conditions drove assessment. Patient is very well-known to the emergency department has presented multiple times with different complaints over the last several days. She has benign abdominal exam and reassuring vital signs on cardiac telemetry. Cardiopulmonary exam is also normal. EKG was obtained and is reassuring. At this time, I doubt true emergent pathology causing any of the patient's chronic symptoms. I do feel she is at her baseline and do not feel the labs or imaging are indicated to evaluate for her chronic symptoms at this time. She was given Zofran here as well as a prescription for Zofran. I offered her hydroxyzine here for anxiety, but she states that she cannot take that. Ultimately, the patient was discharged in stable condition with close follow-up with her primary care provider. Strict return precautions were given. Critical Care Critical Care Time Critical Care Time: No
== END 2023-12-02 14:38 | disposition home or self-care (01) ==
PROVIDERS: Emergency Provider Emergency Medicine; PCP Internal Medicine
DX: F41.1 Generalized anxiety disorder (principal); I44.0 Atrioventricular block, first degree; R11.2 Nausea with vomiting, unspecified; I10 Essential (primary) hypertension
CPT/HCPCS: 93005; 99283

== ENCOUNTER 2023-12-27 14:23 | Outpatient (CLI) | payer MEDICARE, OTHER, SELFPAY ==
[2023-12-27] MEDS: SODIUM CHLORIDE 0.9% 10ML FLUSH SYRINGE 10 ML IV (14:55)
== END 2023-12-27 14:45 | disposition home or self-care (01) ==
LOC: INF 14:23
PROVIDERS: PCP Internal Medicine; Visit Provider Internal Medicine
DX: R53.83 Other fatigue (principal); Z45.2 Encounter for adjustment and management of vascular access device
CPT/HCPCS: 36591; J1642

== ENCOUNTER 2024-01-03 08:36 | Day surgery (SDC) | payer MEDICARE, OTHER, SELFPAY ==
--- NOTE | 2024-01-01 14:22 | SUR.PREOP ---
preop interview attempted at 1237 on 01/01/24. voicemail left with arrival instructions
[2024-01-02 10:40] VITALS: BMI 28.8
[2024-01-03 09:49] VITALS: BP 188/94; PULSE 53; RESP 16; TEMP 36.1; O2SAT 98
[2024-01-03] MEDS: LACTATED RINGERS 1000ML 1,000 ML 25 ML IV (10:07)
[2024-01-03 10:28] VITALS: BP 131/70; PULSE 50; RESP 18; TEMP 36.7; O2SAT 97
--- NOTE | 2024-01-03 10:28 | HMH.SCOPE ---
Procedure: Date: 01/03/24 Patient Date of :: 1955 Procedure Performed:: EGD Indications:: Dysphagia Performing Provider:: Kavon Jernigan MD Referring Provider:: Librado Landry DO Sedation:: See RN records Procedure:: The gastroscope was gently passed through the incisoral orifice into the oral cavity and under direct visualization the esophagus was intubated. The endoscope was passed down the esophagus, through the stomach, and into the duodenum. Color, texture, mucosa, and anatomy of the esophagus, stomach, and duodenum were carefully examined with the scope. Findings:: The esophageal mucosa was normal in appearance. There was some tortuosity of the distal esophagus and motility appeared sluggish. There was a mild nonobstructive Schatzki ring in the distal esophagus. Esophageal dilatation was performed with an 18 to 20 mm TTS balloon. There was a small 2 cm hiatal hernia. There was mild inflammation characterized by erythema in the stomach. Biopsies were obtained with a cold forceps for histology. The examined duodenum appeared normal. Impression: Tortuous distal esophagus Schatzki ring, mild Hiatal hernia Minimal gastritis Recommendations:: Await pathology result Patient will likely require repeat EGD in about 2 to 3 years Follow-up with referring provider as previously scheduled Complications:: None Estimated blood obtained (mL): 0 Colonoscopy Component Colonoscopy Component Was a colonoscopy performed during today's procedure?: No
--- NOTE | 2024-01-03 10:31 | P.PNANES_ITS ---
[facility] Disclaimer: The information contained in this section may have been updated after the patient was seen, as this information can be updated by other users. Medical History Dizziness Sinus bradycardia Dyspnea Chest pain Insomnia Depression Anxiety Cholecystectomy planned Urinary tract infection Pneumonia Osteoporosis Allergies Edema History of anemia History of constipation Exposure to COVID-19 virus NSAIDs adverse reaction Knee effusion, right Sphincter of Oddi dysfunction Abdominal adhesions Hx of Crohn's disease This apparently was not the issue for why Angelica was admitted to the [facility] recently. She was placed on sucralfate. There was some mention of ulcers but I do not see that in the discharge summary. Positive D dimer HTN (hypertension) Patient was 104/68 today. At discharge she was 146/73. She is currently taking spironolactone and lisinopril. She is following with cardiology, however has not seen them for some time. I am concerned about this chest pain that she is experiencing and other symptoms. I did get an EKG which was unremarkable and similar to previous EKGs done over the last year. However we will send her to cardiology today and they will see her at 3 PM. Bilateral lower extremity edema Surgical History H/O oral surgery History of appendectomy H/O total hysterectomy History of esophagogastroduodenoscopy (EGD) History of arthroscopy of right knee Status post knee surgery Status post right knee arthroscopy with partial medial meniscectomy date of surgery May 16, 2022 History of intestinal surgery Family History Other Cancer Heart attack Social History Smoking Status: Never smoker second hand exposure: No alcohol intake: never substance use type: denies use current occupational status: disabled Travel in the last 8 weeks: None household members: none housing: apartment number of children: 2 current occupational exposures/hazards: No caffeine: Yes [facility] Anesthesia Checklist Patient Identification Patient Identification: Verbal (Name & ) Structural Data Admitted From: Home Planned Operative Procedure/s: egd Consent for Planned Operative Procedure(s) Verified: Yes Additional verifications Anesthesia Reactions: No Hx Blood Transfusions: Yes Blood Transfusion Reaction: No Airway Assessment Mallampati Score:: Class II C-Spine Mobility Assessed: Yes TMJ Mobility Assessed: Yes Dentition: Edentulous Neurological Assessment Level of Consciousness: Awake, Alert and Appropriate Anesthesia Plan Anesthesia Risk discussed: Yes Anesthesia Plan: Verified ASA Class: III Anesthesia Type: MAC
[2024-01-03 10:38] VITALS: BP 152/79; PULSE 53; RESP 18; O2SAT 97
[2024-01-03 10:48] VITALS: BP 141/69; PULSE 52; RESP 18; O2SAT 97
[2024-01-03 10:58] VITALS: BP 146/66; PULSE 53; RESP 18; O2SAT 96
== END 2024-01-03 11:20 | disposition home or self-care (01) ==
PROVIDERS: PCP Internal Medicine; Visit Provider Internal Medicine
PROC: 0DJ08ZZ Inspection of Upper Intestinal Tract, Via Natural or Artificial Opening Endoscopic (ICD-10-PCS; CPT 43235; principal; 2024-01-03 10:00)
DX: R13.10 Dysphagia, unspecified (principal); K22.89 Other specified disease of esophagus; K22.2 Esophageal obstruction; K44.9 Diaphragmatic hernia without obstruction or gangrene; K29.70 Gastritis, unspecified, without bleeding
CPT/HCPCS: 43239; 43249; C1726; J1642

== ENCOUNTER 2024-01-18 14:15 | Outpatient (CLI) | payer MEDICARE, OTHER, SELFPAY ==
[2024-01-18] MEDS: SODIUM CHLORIDE 0.9% 10ML FLUSH SYRINGE 10 ML IV (14:52)
[2024-01-18 15:09] LABS: Alanine Aminotransferase 26 U/L (12-78); Albumin Level 3.7 g/dl (3.5-5.0); Albumin/Globulin Ratio 1.3 (1.1-1.8); Alkaline Phosphatase 63 U/L (38-126); Anion Gap 9.5 mEq/L (5-15); Aspartate Amino Transferase 36 U/L (14-36); Bilirubin,Total 0.2 mg/dl (0.2-1.3); Blood Urea Nitrogen 22 mg/dl (7-17); Calcium 9.1 mg/dl (8.4-10.2); Carbon Dioxide 31 mmol/L (22.0-30.0); Chloride 106 mmol/L (98-107); Estimated Glomerular Filt Rate 62 ml/min (>60); GFR (African American) 75 ML/MIN (>60); Globulin 2.8 g/dL (1.3-3.2); Glucose 115 mg/dl (74-100); Potassium 3.5 mmoL/L (3.5-5.1); Sodium 143 mmol/L (136-145); Total Protein,Serum 6.5 g/dl (6.3-8.2)
[2024-01-18 15:10] LABS: Basophils # 0.1 K/mm3 (0-0.2); Eosinophils # 0.3 K/mm3 (0.0-0.4); Eosinophils % 5.1 % (0.1-12.0); Hemoglobin 9.2 g/dL (12.2-16.2); Lymphocytes # 1.8 K/mm3 (0.7-4.5); Lymphocytes % 36.3 % (10-50); Mean Corpuscular HGB Conc 30.6 g/dL (31.8-35.4); Mean Corpuscular Hemoglobin 27.5 pg (27.0-31.2); Mean Platelet Volume 10.1 fl (7.4-10.4); Monocytes # 0.3 K/mm3 (0.1-1.0); Monocytes % 5.5 % (1.7-9.3); Neutrophils # 2.5 K/mm3 (1.8-7.8); Neutrophils % 52.1 % (37.0-80.0); Platelet Count 249 K/mm3 (142-424); Red Blood Count 3.34 M/mm3 (4.20-5.40); Red Cell Distribution Width 16.1 % (11.5-17.5); White Blood Count 4.8 K/mm3 (4.8-10.8)
[2024-01-18 15:39] LABS: Thyroid Stimulating Hormone 0.32 uIU/mL (0.465-4.68)
[2024-01-18 16:02] LABS: 25-OH Vitamin D, Total 35.6 ng/mL (30-100)
[2024-01-18 16:36] LABS: Hemoglobin A1C 5.4 % (4.0-6.0)
[2024-01-18 18:23] LABS: Free T4 (Free Thyroxine) 0.96 ng/dl (0.78-2.19)
[2024-01-20 08:58] LABS: Thyroid Peroxidase Antibodies <9 IU/mL (0-34); Triiodothyronine (T3) Free 3.7 pg/mL (2.0-4.4)
[2024-01-22 16:12] LABS: Thyroglobulin Level <1.0 IU/mL (0.0-0.9)
== END 2024-01-18 14:52 | disposition home or self-care (01) ==
LOC: INF 14:16
PROVIDERS: PCP Internal Medicine; Visit Provider Internal Medicine
DX: R53.83 Other fatigue (principal); E55.9 Vitamin D deficiency, unspecified; E07.9 Disorder of thyroid, unspecified; R73.09 Other abnormal glucose
CPT/HCPCS: 36591; 80053; 82306; 83036; 84439; 84443; 84481; 85025; 86376; 86800; J1642

== ENCOUNTER 2024-01-19 11:57 | Outpatient (CLI) | payer MEDICARE, OTHER, SELFPAY ==
--- NOTE | 2024-01-19 12:00 | XR_ITS ---
FINAL REPORT CLINICAL HISTORY: cough..CONGESTION COMPARISON: 09/22/2023 FINDINGS: TWO-VIEW CHEST The heart size is normal. The mediastinum is normal. Left subclavian chest port is present. There are mild left base opacities, may represent atelectasis or pneumonia. There is no pneumothorax. IMPRESSION: Left base atelectasis versus pneumonia. Reviewed, Interpreted and Dictated by Luis Alberto Redd III, MD Transcribed by Ivanna Martin Authenticated and . [facility]
== END 2024-01-19 23:59 | disposition home or self-care (01) ==
LOC: RAD 11:58
PROVIDERS: PCP Internal Medicine; Visit Provider Family Medicine
DX: R07.9 Chest pain, unspecified (principal)
CPT/HCPCS: 71046

== ENCOUNTER 2024-01-22 10:43 | Emergency (ER) | payer MEDICARE, OTHER, SELFPAY ==
[2024-01-22 11:00] VITALS: PULSE 64; RESP 19; TEMP 36.8; O2SAT 95; BMI 28.8
--- NOTE | 2024-01-22 11:02 | ED_ITS ---
Discharge Plan Disposition Patient Disposition: Home, Self-Care Condition: Good Prescriptions Prescriptions: New benzonatate 100 mg capsule 100 mg PO TIDP PRN (Reason: Cough) Qty: 30 0RF levofloxacin 500 mg tablet 500 mg PO DAILY Qty: 7 0RF methylprednisolone 4 mg Tablets,Dose Pack 4 mg PO DIRECTED 6 Days Qty: 21 0RF Rx Instructions: Take 1 pack as directed for 6 days No Action lisinopril 20 mg tablet 20 mg PO DAILY Qty: 90 1RF azelastine 137 mcg (0.1 %) aerosol,spray 2 spray intranasal BID Qty: 30 3RF Rx Instructions: administer into each nostril Debrox 6.5 % drops 5 drp otic (ear) BID 4 Days Qty: 15 0RF doxycycline hyclate 100 mg tablet 100 mg PO BID 10 Days Qty: 20 0RF alendronate 70 mg tablet 70 mg PO WEEKLY Patient Comments: TAKE ONE TABLET BY MOUTH ONCE a WEEK clonazepam 0.5 mg tablet 0.5 mg PO BID 30 Days Qty: 60 1RF fluoxetine 40 mg capsule 80 mg PO DAILY 60 Days Qty: 120 2RF buspirone 10 mg tablet 10 mg PO BID Qty: 60 1RF ferrous sulfate 325 mg (65 mg iron) tablet,delayed release (DR/EC) 325 mg PO DAILY 90 Days Qty: 90 4RF cholecalciferol (vitamin D3) 250 mcg (10,000 unit) capsule 250 mcg PO DAILY 60 Days Qty: 60 2RF hydrocodone-acetaminophen 7.5-325 mg tablet 1 tab PO Q4H PRN (Reason: Back Pain and abdominal pain) 30 Days Qty: 180 0RF albuterol sulfate [ProAir HFA] 90 mcg/actuation HFA aerosol inhaler 2 puff inhalation Q6HP PRN (Reason: Shortness Of Breath Or Wheezing) spironolactone 25 mg tablet 25 mg PO BIDP PRN (Reason: swelling) loratadine 10 mg tablet 10 mg PO DAILY potassium chloride 10 mEq capsule, extended release 10 meq PO DAILY omeprazole 40 mg capsule,delayed release(DR/EC) 40 mg PO BID Qty: 60 2RF guaifenesin [Mucinex] 600 mg tablet extended release 12hr 600 mg PO BID PRN (Reason: cough) Qty: 20 0RF fluticasone propionate [Flonase Allergy Relief] 50 mcg/actuation spray,suspension 1 spray intranasal BID PRN (Reason: nasal congestion) Qty: 16 0RF Rx Instructions: administer into each nostril Referrals Follow up/Referrals: Librado Gilmore DO [Primary Care Provider] - See instructions Activity Restrictions/Add. Instructions Additional Instructions/Restrictions: Drink plenty of fluids. Take tylenol for pain or fever. Stop the amoxicillin. Start the new medications. Follow up with your regular doctor. Make sure you follow up within the next 48 hours for a recheck since your chest x-ray showed probable pneumonia. GO TO THE ER FOR ANY WORSENING SYMPTOMS Clinical Impressions Clinical Impression: LLL pneumonia Instructions Patient Instructions: Pneumonia-Adult, Methylprednisolone, Levofloxacin, Ketorolac Injection Discharge ED Provider: Papo [facility] General Stated complaint: cough, chest congestion, pain R ear Time Seen by Provider: 01/22/24 10:59 History of Present Illness Provider Complaint: She states that she has had chest congestion and a productive cough for the past 1 week. Related Data Home Medications Medication Instructions Recorded Confirmed albuterol sulfate 90 mcg/actuation 2 puff inhalation Q6HP PRN 05/15/23 01/22/24 aerosol inhaler (ProAir HFA) Shortness Of Breath Or Wheezing loratadine 10 mg tablet 10 mg PO DAILY Allergy Symptoms 05/15/23 01/22/24 spironolactone 25 mg tablet 25 mg PO BIDP PRN swelling 05/15/23 01/22/24 potassium chloride 10 mEq 10 meq PO DAILY Supplement 09/03/23 01/22/24 capsule,extended release alendronate 70 mg tablet 70 mg PO WEEKLY 11/01/23 01/22/24 Previous Rx's Medication Instructions Recorded omeprazole 40 mg capsule,delayed 40 mg PO BID #60 caps 10/07/23 release guaifenesin 600 mg tablet, 600 mg PO BID PRN cough #20 tabs 10/15/23 extended release 12 hr (Mucinex) ferrous sulfate 325 mg (65 mg 325 mg PO DAILY 90 days #90 tabs 11/02/23 iron) tablet,delayed release fluticasone propionate 50 1 spray intranasal BID PRN nasal 11/06/23 mcg/actuation nasal congestion #16 grams spray,suspension (Flonase Allergy Relief) azelastine 137 mcg (0.1 %) nasal 2 spray intranasal BID #30 mL 11/13/23 spray aerosol cholecalciferol (vitamin D3) 250 250 mcg PO DAILY 60 days #60 caps 11/14/23 mcg (10,000 unit) capsule lisinopril 20 mg tablet 20 mg PO DAILY High Blood Pressure 11/22/23 #90 tabs clonazepam 0.5 mg tablet 0.5 mg PO BID 30 days #60 tabs 12/27/23 fluoxetine 40 mg capsule 80 mg (2 x 40 mg) PO DAILY 60 days 12/27/23 #120 caps hydrocodone 7.5 mg-acetaminophen 1 tab PO Q4H PRN Back Pain and 12/31/23 325 mg tablet abdominal pain 30 days #180 tabs buspirone 10 mg tablet 10 mg PO BID #60 tabs 01/16/24 carbamide peroxide 6.5 % ear drops 5 drp otic (ear) BID 4 days #15 mL 01/19/24 (Debrox) doxycycline hyclate 100 mg tablet 100 mg PO BID 10 days #20 tabs 01/19/24 benzonatate 100 mg capsule 100 mg PO TIDP PRN Cough #30 caps 01/22/24 levofloxacin 500 mg tablet 500 mg PO DAILY #7 tabs 01/22/24 methylprednisolone 4 mg tablets in 4 mg PO DIRECTED 6 days #21 tabs 01/22/24 a dose pack Allergies Allergy/AdvReac Type Severity Reaction Status Date / Time cephalexin [From Keflex] Allergy Severe Difficulty Verified 01/22/24 11:08 Breathing prochlorperazine Allergy Severe Swelling Verified 01/22/24 11:08 [PROCHLORPERAZINE] of Lip/Tongue/Throat codeine [CODEINE] Allergy Unknown VOMITING / Verified 01/22/24 11:08 NAUSEA prednisone [PREDNISONE] Allergy Unknown BP ISSUES Verified 01/22/24 11:08 promethazine [From PHENERGAN] Allergy Unknown Unknown Verified 01/22/24 11:08 allergy reaction metoclopramide [From Reglan] Allergy Nausea Verified 01/22/24 11:08 hydroxyzine [From Vistaril] AdvReac Verified 01/22/24 11:08 [facility] Disclaimer: The information contained in this section may have been updated after the patient was seen, as this information can be updated by other users. Medical History Dizziness Sinus bradycardia Dyspnea Chest pain Insomnia Depression Anxiety Cholecystectomy planned Urinary tract infection Pneumonia Osteoporosis Allergies Edema History of anemia History of constipation Exposure to COVID-19 virus NSAIDs adverse reaction Knee effusion, right Sphincter of Oddi dysfunction Abdominal adhesions Hx of Crohn's disease Positive D dimer HTN (hypertension) Bilateral lower extremity edema Surgical History H/O oral surgery History of appendectomy H/O total hysterectomy History of esophagogastroduodenoscopy (EGD) History of arthroscopy of right knee Status post knee surgery History of intestinal surgery Family History Other Cancer Heart attack Social History Smoking Status: Never smoker second hand exposure: No alcohol intake: never substance use type: denies use current occupational status: disabled Travel in the last 8 weeks: None household members: none housing: apartment number of children: 2 current occupational exposures/hazards: No caffeine: Yes ROS Obtained: Yes All systems reviewed & no additional complaints except as documented Constitutional Constitutional: Reports poor appetite Eyes Eyes: Reports system reviewed and no additional complaints, except as documented ENT Ears, Nose, Mouth, and Throat: Reports as per HPI Cardiovascular Cardiovascular: Reports system reviewed and no additional complaints, except as documented and Denies chest pain Respiratory Respiratory: Denies shortness of breath, Reports chest congestion, Reports cough, Denies stridor and Denies wheezing Gastrointestinal Gastrointestingal: Reports system reviewed and no additional complaints, except as documented; Denies abdominal pain, diarrhea or vomiting Musculoskeletal Musculoskeletal: Reports system reviewed and no additional complaints, except as documented and Denies arthralgias Integumentary/Breasts Skin/Breast: Reports system reviewed and no additional complaints, except as documented and Denies rash Neurologic Neurologic: Denies paresthesias Allergic/Immunologic Allergic/Immunologic: Denies wheezing Physical Exam General General appearance: alert and in no apparent distress Head Head exam: atraumatic, normocephalic and normal inspection Eye Eye exam: Present normal appearance, PERRL and EOMI ENT ENT exam: Present normal exam, normal oropharynx, mucous membranes moist, TM's normal bilaterally and normal external ear exam Neck Neck exam: Present normal inspection, full ROM and trachea midline; Absent meningismus or lymphadenopathy Chest Chest inspection: Present normal inspection and symmetric chest wall rise; Absent tenderness Respiratory Respiratory exam: Present normal lung sounds bilaterally; Absent respiratory distress Cardiovascular Cardiovascular exam: Present regular rate and normal rhythm; Absent JVD Abdominal Exam Abdominal exam: Present soft and normal bowel sounds; Absent distention, tenderness or guarding Extremities Exam Extremities exam: Present normal inspection, full ROM and normal capillary refill; Absent calf tenderness Back Exam Back exam: Present normal inspection; Absent tenderness Neurological Exam Neurological exam: Present alert and oriented X3 Psychiatric Psychiatric exam: Present normal affect and normal mood Skin Skin exam: Present warm, dry, intact and normal color Lymphatic Lymphatic Findings: no adenopathy Medical Decision Making Medical Records Medical records reviewed: No I reviewed the patient's medical records. Grant Inquiry Pt receiving controlled substance: No Radiology Data #1: Image(s): Chest Image Reviewed: Yes I reviewed the patient's radiology image and Yes I have reviewed radiologist's interpretation Preliminary Findings: Abnormal
[2024-01-22] MEDS: KETOROLAC 60MG/2ML VIAL 60 MG IM (11:36)
--- NOTE | 2024-01-22 11:50 | PC.NURSE ---
Called and spoke with [facility] at clinic pharmacy and cancelled the medrol dose pack per pt request
[2024-01-22 11:51] VITALS: BP 172/86; PULSE 64; RESP 18; TEMP 36.8; O2SAT 94
== END 2024-01-22 11:51 | disposition home or self-care (01) ==
PROVIDERS: Emergency Provider Nurse Practitioner Family; PCP Internal Medicine
DX: J18.9 Pneumonia, unspecified organism (principal); H92.01 Otalgia, right ear; R05.9 Cough, unspecified
CPT/HCPCS: 96372; 99212; 99214; G0463; J1885

== ENCOUNTER 2024-01-28 13:59 | Emergency (ER) | payer MEDICARE, OTHER, SELFPAY ==
[2024-01-28 14:01] VITALS: BP 151/90; PULSE 81; RESP 20; TEMP 36.6; O2SAT 98; BMI 28.3
--- NOTE | 2024-01-28 14:04 | ED_ITS ---
<Statement entered by Willian Prajapati MD - 01/28/24 15:19> I was consulted by the LOTUS, and we discussed the complexity of the problems being addressed. I approved the treatment and management plan for this patient's care in the emergency department, thus performing a substantive portion of the medical decision making. Willian Prajapati MD Discharge Plan Disposition Patient Disposition: Home, Self-Care Condition: Fair Prescriptions Prescriptions: No Action lisinopril 20 mg tablet 20 mg PO DAILY Qty: 90 1RF azelastine 137 mcg (0.1 %) aerosol,spray 2 spray intranasal BID Qty: 30 3RF Rx Instructions: administer into each nostril Debrox 6.5 % drops 5 drp otic (ear) BID 4 Days Qty: 15 0RF doxycycline hyclate 100 mg tablet 100 mg PO BID 10 Days Qty: 20 0RF alendronate 70 mg tablet 70 mg PO WEEKLY Patient Comments: TAKE ONE TABLET BY MOUTH ONCE a WEEK clonazepam 0.5 mg tablet 0.5 mg PO BID 30 Days Qty: 60 1RF fluoxetine 40 mg capsule 80 mg PO DAILY 60 Days Qty: 120 2RF buspirone 10 mg tablet 10 mg PO BID Qty: 60 1RF ferrous sulfate 325 mg (65 mg iron) tablet,delayed release (DR/EC) 325 mg PO DAILY 90 Days Qty: 90 4RF cholecalciferol (vitamin D3) 250 mcg (10,000 unit) capsule 250 mcg PO DAILY 60 Days Qty: 60 2RF hydrocodone-acetaminophen 7.5-325 mg tablet 1 tab PO Q4H PRN (Reason: Back Pain and abdominal pain) 30 Days Qty: 180 0RF albuterol sulfate [ProAir HFA] 90 mcg/actuation HFA aerosol inhaler 2 puff inhalation Q6HP PRN (Reason: Shortness Of Breath Or Wheezing) spironolactone 25 mg tablet 25 mg PO BIDP PRN (Reason: swelling) loratadine 10 mg tablet 10 mg PO DAILY benzonatate 100 mg capsule 100 mg PO TIDP PRN (Reason: Cough) Qty: 30 0RF levofloxacin 500 mg tablet 500 mg PO DAILY Qty: 7 0RF methylprednisolone 4 mg Tablets,Dose Pack 4 mg PO DIRECTED 6 Days Qty: 21 0RF Rx Instructions: Take 1 pack as directed for 6 days potassium chloride 10 mEq capsule, extended release 10 meq PO DAILY omeprazole 40 mg capsule,delayed release(DR/EC) 40 mg PO BID Qty: 60 2RF guaifenesin [Mucinex] 600 mg tablet extended release 12hr 600 mg PO BID PRN (Reason: cough) Qty: 20 0RF fluticasone propionate [Flonase Allergy Relief] 50 mcg/actuation spray,suspension 1 spray intranasal BID PRN (Reason: nasal congestion) Qty: 16 0RF Rx Instructions: administer into each nostril Referrals Follow up/Referrals: Librado Gilmore DO [Primary Care Provider] - See instructions Activity Restrictions/Add. Instructions Additional Instructions/Restrictions: We have set up an appointment with [facility] to manage her withdrawal and transition from opiates. Appointment time is 2 PM tomorrow Clinical Impressions Clinical Impression: Opiate withdrawal Discharge ED Provider: Willian Prajapati General Adult HPI General Chief complaint: Recheck/Abnormal Lab/Rx Stated complaint: withdrawl vomiting dizziness diarrhea Time Seen by Provider: 01/28/24 14:01 History of Present Illness HPI narrative: Patient presents for evaluation of opiate withdrawal. Patient states that she has been on hydrocodone 7.5 3 times a day for many years that was started by Dr. Fong. Patient was recently discontinued by the medication by her prescribing provider for an accurate pill count. Patient reports that she it has been 3 days since her last dose. She reports nausea vomiting diarrhea anxiety. She denies chest pain shortness of breath fever chills hemoptysis hematochezia melena. Related Data Home Medications Medication Instructions Recorded Confirmed albuterol sulfate 90 mcg/actuation 2 puff inhalation Q6HP PRN 05/15/23 01/22/24 aerosol inhaler (ProAir HFA) Shortness Of Breath Or Wheezing loratadine 10 mg tablet 10 mg PO DAILY Allergy Symptoms 05/15/23 01/22/24 spironolactone 25 mg tablet 25 mg PO BIDP PRN swelling 05/15/23 01/22/24 potassium chloride 10 mEq 10 meq PO DAILY Supplement 09/03/23 01/22/24 capsule,extended release alendronate 70 mg tablet 70 mg PO WEEKLY 11/01/23 01/22/24 Previous Rx's Medication Instructions Recorded omeprazole 40 mg capsule,delayed 40 mg PO BID #60 caps 10/07/23 release guaifenesin 600 mg tablet, 600 mg PO BID PRN cough #20 tabs 10/15/23 extended release 12 hr (Mucinex) ferrous sulfate 325 mg (65 mg 325 mg PO DAILY 90 days #90 tabs 11/02/23 iron) tablet,delayed release fluticasone propionate 50 1 spray intranasal BID PRN nasal 11/06/23 mcg/actuation nasal congestion #16 grams spray,suspension (Flonase Allergy Relief) azelastine 137 mcg (0.1 %) nasal 2 spray intranasal BID #30 mL 11/13/23 spray aerosol cholecalciferol (vitamin D3) 250 250 mcg PO DAILY 60 days #60 caps 11/14/23 mcg (10,000 unit) capsule lisinopril 20 mg tablet 20 mg PO DAILY High Blood Pressure 11/22/23 #90 tabs clonazepam 0.5 mg tablet 0.5 mg PO BID 30 days #60 tabs 12/27/23 fluoxetine 40 mg capsule 80 mg (2 x 40 mg) PO DAILY 60 days 12/27/23 #120 caps hydrocodone 7.5 mg-acetaminophen 1 tab PO Q4H PRN Back Pain and 12/31/23 325 mg tablet abdominal pain 30 days #180 tabs buspirone 10 mg tablet 10 mg PO BID #60 tabs 01/16/24 carbamide peroxide 6.5 % ear drops 5 drp otic (ear) BID 4 days #15 mL 01/19/24 (Debrox) doxycycline hyclate 100 mg tablet 100 mg PO BID 10 days #20 tabs 01/19/24 benzonatate 100 mg capsule 100 mg PO TIDP PRN Cough #30 caps 01/22/24 levofloxacin 500 mg tablet 500 mg PO DAILY #7 tabs 01/22/24 methylprednisolone 4 mg tablets in 4 mg PO DIRECTED 6 days #21 tabs 01/22/24 a dose pack Allergies Allergy/AdvReac Type Severity Reaction Status Date / Time cephalexin [From Keflex] Allergy Severe Difficulty Verified 01/22/24 11:08 Breathing prochlorperazine Allergy Severe Swelling Verified 01/22/24 11:08 [PROCHLORPERAZINE] of Lip/Tongue/Throat codeine [CODEINE] Allergy Unknown VOMITING / Verified 01/22/24 11:08 NAUSEA prednisone [PREDNISONE] Allergy Unknown BP ISSUES Verified 01/22/24 11:08 promethazine [From PHENERGAN] Allergy Unknown Unknown Verified 01/22/24 11:08 allergy reaction metoclopramide [From Reglan] Allergy Nausea Verified 01/22/24 11:08 hydroxyzine [From Vistaril] AdvReac Verified 01/22/24 11:08 PFSH [facility] Disclaimer: The information contained in this section may have been updated after the patient was seen, as this information can be updated by other users. Medical History Dizziness Sinus bradycardia Dyspnea Chest pain Insomnia Depression Anxiety Cholecystectomy planned Urinary tract infection Pneumonia Osteoporosis Allergies Edema History of anemia History of constipation Exposure to COVID-19 virus NSAIDs adverse reaction Knee effusion, right Sphincter of Oddi dysfunction Abdominal adhesions Hx of Crohn's disease Positive D dimer HTN (hypertension) Bilateral lower extremity edema Surgical History H/O oral surgery History of appendectomy H/O total hysterectomy History of esophagogastroduodenoscopy (EGD) History of arthroscopy of right knee Status post knee surgery History of intestinal surgery Family History Other Cancer Heart attack Social History Smoking Status: Unknown if ever smoked second hand exposure: No alcohol intake: never substance use type: denies use current occupational status: disabled Travel in the last 8 weeks: None household members: none housing: apartment number of children: 2 current occupational exposures/hazards: No caffeine: Yes ROS Obtained: Yes Systems reviewed as appropriate & no additional complaints exc ept as documented Physical Exam General General appearance: alert, in no apparent distress and anxious Eye Eye exam: Present normal appearance, PERRL and EOMI Respiratory Respiratory exam: Present normal lung sounds bilaterally Cardiovascular Cardiovascular exam: Present normal rhythm, tachycardia, normal heart sounds, +S1 and +S2 Extremities Exam Extremities exam: Present normal inspection and full ROM Neurological Exam Neurological exam: Present alert, oriented X3 and CN II-XII intact Psychiatric Psychiatric exam: Present agitated and anxious Skin Skin exam: Present warm, normal color and diaphoresis Medical Decision Making Medical Records Medical records reviewed: Yes I reviewed the patient's medical records. Grant Inquiry Pt receiving controlled substance: No Vital Signs: 01/28/24 14:01 01/28/24 14:42 Temperature 97.8 F Temperature Source Oral Pulse Rate [Right] 81 Respiratory Rate 20 Blood Pressure [Left Arm] 151/90 H Blood Pressure Mean [Left Arm] 110 Blood Pressure Source [Left Arm] Automatic Cuff 02 Sat by Pulse Oximetry 98 98 Oxygen Delivery Method Room Air Room Air Lab Data Lab results reviewed: Yes I reviewed the patient's lab results. Orders (Tests/Meds): ED MEDICATIONS Discontinued Medications Generic Name Dose Route Start Last Admin Trade Name Dylon PRN Reason Stop Dose Admin Buprenorphine/Naloxone 1 each 01/28/24 14:16 01/28/24 14:52 Buprenorphine/Naloxone 8mg/2mg Odt 01/28/24 14:17 1 each ONCE ONE Administration Ondansetron HCl 4 mg 01/28/24 14:15 01/28/24 14:52 Ondansetron 4mg Odt 01/28/24 14:16 4 mg ONCE ONE Administration Medical Decision Narrative: In summary patient is a 68-year-old female who presents to the emergency department for evaluation of opiate withdrawal. Patient is normotensive slig htly tachycardic with a rate of 100 otherwise hemodynamically stable upon arrival, afebrile. Physical exam is remarkable for anxiety shaking diaphoresis and self-reported nausea vomiting diarrhea as well as pain. The remainder of her physical exam is nonfocal and unremarkable including no dilated pupils no yawning piloerection. COWS score is 19. Differential diagnosis includes opiate withdrawal versus anxiety versus gastroenteritis etc. Initial workup will be conducted with COWS score. Initial interventions include 8 milligrams of Suboxone and Zofran. Upon repeat evaluation patient's COWS score is down to 1. Given this patient is appropriate for discharge and referral to [facility] and appointment time of 2 PM tomorrow. Critical Care Critical Care Time Critical Care Time: No
--- NOTE | 2024-01-28 14:11 | PC.NURSE ---
Gee RIOS at BS for pt eval
--- NOTE | 2024-01-28 14:18 | PC.NURSE ---
Dr. Prajapati at BS to speak with pt
--- NOTE | 2024-01-28 14:26 | PC.NURSE ---
COWS 18 per nursing assessment.
--- NOTE | 2024-01-28 14:27 | PC.NURSE ---
Pt provided with warm blanket
--- NOTE | 2024-01-28 14:30 | PC.NURSE ---
APPT MADE WITH [employer] ON 01/29/2024 AT 1400
[2024-01-28 14:42] VITALS: O2SAT 98
[2024-01-28] MEDS: BUPRENORPHINE/NALOXONE 8MG/2MG ODT 1 EACH SL (14:52)
[2024-01-28] MEDS: ONDANSETRON 4MG ODT 4 MG SL (14:52)
[2024-01-28 15:28] VITALS: BP 157/80; PULSE 72; RESP 18; TEMP 37; O2SAT 95
== END 2024-01-28 15:35 | disposition home or self-care (01) ==
PROVIDERS: Emergency Provider Emergency Medicine; PCP Internal Medicine
DX: F11.23 Opioid dependence with withdrawal (principal); R11.2 Nausea with vomiting, unspecified; R19.7 Diarrhea, unspecified; F41.9 Anxiety disorder, unspecified
CPT/HCPCS: 99283; J0574

== ENCOUNTER 2024-02-05 11:10 | Emergency (ER) | payer MEDICARE, OTHER, SELFPAY ==
[2024-02-05 12:00] VITALS: BP 149/83; PULSE 63; RESP 18; TEMP 36.7; O2SAT 95; BMI 28.8
--- NOTE | 2024-02-05 12:41 | ED_ITS ---
Discharge Plan Disposition Patient Disposition: Home, Self-Care Condition: Good Prescriptions Prescriptions: New azithromycin 250 mg tablet See Rx Instructions .ROUTE .COMPLEX Qty: 6 0RF Rx Instructions: For 250 mg dose pack: take 500 mg today (day 1), then 250 mg for 4 days (days 2-5) benzonatate 100 mg capsule 100 mg PO BID PRN (Reason: cough) Qty: 30 0RF No Action lisinopril 20 mg tablet 20 mg PO DAILY Qty: 90 1RF azelastine 137 mcg (0.1 %) aerosol,spray 2 spray intranasal BID Qty: 30 3RF Rx Instructions: administer into each nostril Debrox 6.5 % drops 5 drp otic (ear) BID 4 Days Qty: 15 0RF doxycycline hyclate 100 mg tablet 100 mg PO BID 10 Days Qty: 20 0RF alendronate 70 mg tablet 70 mg PO WEEKLY Patient Comments: TAKE ONE TABLET BY MOUTH ONCE a WEEK clonazepam 0.5 mg tablet 0.5 mg PO BID 30 Days Qty: 60 1RF fluoxetine 40 mg capsule 80 mg PO DAILY 60 Days Qty: 120 2RF buspirone 10 mg tablet 10 mg PO BID Qty: 60 1RF ferrous sulfate 325 mg (65 mg iron) tablet,delayed release (DR/EC) 325 mg PO DAILY 90 Days Qty: 90 4RF cholecalciferol (vitamin D3) 250 mcg (10,000 unit) capsule 250 mcg PO DAILY 60 Days Qty: 60 2RF hydrocodone-acetaminophen 7.5-325 mg tablet 1 tab PO Q4H PRN (Reason: Back Pain and abdominal pain) 30 Days Qty: 180 0RF potassium chloride 10 mEq capsule, extended release See Rx Instructions .ROUTE .COMPLEX Qty: 30 2RF Dose Instruction: TAKE ONE CAPSULE BY MOUTH EVERY DAY Rx Instructions: TAKE ONE CAPSULE BY MOUTH EVERY DAY albuterol sulfate [ProAir HFA] 90 mcg/actuation HFA aerosol inhaler 2 puff inhalation Q6HP PRN (Reason: Shortness Of Breath Or Wheezing) spironolactone 25 mg tablet 25 mg PO BIDP PRN (Reason: swelling) loratadine 10 mg tablet 10 mg PO DAILY benzonatate 100 mg capsule 100 mg PO TIDP PRN (Reason: Cough) Qty: 30 0RF levofloxacin 500 mg tablet 500 mg PO DAILY Qty: 7 0RF methylprednisolone 4 mg Tablets,Dose Pack 4 mg PO DIRECTED 6 Days Qty: 21 0RF Rx Instructions: Take 1 pack as directed for 6 days omeprazole 40 mg capsule,delayed release(DR/EC) 40 mg PO BID Qty: 60 2RF guaifenesin [Mucinex] 600 mg tablet extended release 12hr 600 mg PO BID PRN (Reason: cough) Qty: 20 0RF fluticasone propionate [Flonase Allergy Relief] 50 mcg/actuation spray,suspension 1 spray intranasal BID PRN (Reason: nasal congestion) Qty: 16 0RF Rx Instructions: administer into each nostril Referrals Follow up/Referrals: Librado Gilmore DO [Primary Care Provider] - See instructions Activity Restrictions/Add. Instructions Additional Instructions/Restrictions: Take medication as prescribed. Follow up with primary care provider. Clinical Impressions Clinical Impression: Upper respiratory tract infection Qualifiers: URI type: unspecified URI Qualified Code(s): J06.9 - Acute upper respiratory infection, unspecified Instructions Patient Instructions: Acute Bronchitis Discharge ED Provider: Makenna Mccarty [facility] General Stated complaint: upset stomach, diarrea, SOA, rattling when breathi Mode of Arrival: Ambulatory Source of Information: Patient Limitations: No Limitations Time Seen by Provider: 02/05/24 12:41 Description of Symptoms (Recalled from Triage Doc. by RN): Pt's symptoms are coughing, congestion, diarrhea, vomiting, and bilateral ear pain. HEENT Symptoms (Recalled from RN notes): Yes Resp Symptoms (Recalled from RN notes): No Skin Symptoms (Recalled from RN notes): No MS Symptoms (Recalled from RN notes): No Functional Status (Recalled from RN notes): n/a History of Present Illness Provider Complaint: Pt's symptoms are coughing, congestion, diarrhea, vomiting, and bilateral ear pain. She reports that she was diagnosed with pneumonia 2 weeks ago and given a prescription for Levaquin and cough tabs. She reports that she still feels unwell and continues to have a strong cough. Related Data Home Medications Medication Instructions Recorded Confirmed albuterol sulfate 90 mcg/actuation 2 puff inhalation Q6HP PRN 05/15/23 01/22/24 aerosol inhaler (ProAir HFA) Shortness Of Breath Or Wheezing loratadine 10 mg tablet 10 mg PO DAILY Allergy Symptoms 05/15/23 01/22/24 spironolactone 25 mg tablet 25 mg PO BIDP PRN swelling 05/15/23 01/22/24 alendronate 70 mg tablet 70 mg PO WEEKLY 11/01/23 01/22/24 Previous Rx's Medication Instructions Recorded omeprazole 40 mg capsule,delayed 40 mg PO BID #60 caps 10/07/23 release guaifenesin 600 mg tablet, 600 mg PO BID PRN cough #20 tabs 10/15/23 extended release 12 hr (Mucinex) ferrous sulfate 325 mg (65 mg 325 mg PO DAILY 90 days #90 tabs 11/02/23 iron) tablet,delayed release fluticasone propionate 50 1 spray intranasal BID PRN nasal 11/06/23 mcg/actuation nasal congestion #16 grams spray,suspension (Flonase Allergy Relief) azelastine 137 mcg (0.1 %) nasal 2 spray intranasal BID #30 mL 11/13/23 spray aerosol cholecalciferol (vitamin D3) 250 250 mcg PO DAILY 60 days #60 caps 11/14/23 mcg (10,000 unit) capsule lisinopril 20 mg tablet 20 mg PO DAILY High Blood Pressure 11/22/23 #90 tabs clonazepam 0.5 mg tablet 0.5 mg PO BID 30 days #60 tabs 12/27/23 fluoxetine 40 mg capsule 80 mg (2 x 40 mg) PO DAILY 60 days 12/27/23 #120 caps hydrocodone 7.5 mg-acetaminophen 1 tab PO Q4H PRN Back Pain and 12/31/23 325 mg tablet abdominal pain 30 days #180 tabs buspirone 10 mg tablet 10 mg PO BID #60 tabs 01/16/24 carbamide peroxide 6.5 % ear drops 5 drp otic (ear) BID 4 days #15 mL 01/19/24 (Debrox) doxycycline hyclate 100 mg tablet 100 mg PO BID 10 days #20 tabs 01/19/24 benzonatate 100 mg capsule 100 mg PO TIDP PRN Cough #30 caps 01/22/24 levofloxacin 500 mg tablet 500 mg PO DAILY #7 tabs 01/22/24 methylprednisolone 4 mg tablets in 4 mg PO DIRECTED 6 days #21 tabs 01/22/24 a dose pack azithromycin 250 mg tablet See Rx Instructions PO .COMPLEX #6 02/05/24 tabs benzonatate 100 mg capsule 100 mg PO BID PRN cough #30 caps 02/05/24 potassium chloride 10 mEq See Rx Instructions .Route 02/05/24 capsule,extended release .COMPLEX #30 caps Allergies Allergy/AdvReac Type Severity Reaction Status Date / Time cephalexin [From Keflex] Allergy Severe Difficulty Verified 02/05/24 12:29 Breathing prochlorperazine Allergy Severe Swelling Verified 02/05/24 12:29 [PROCHLORPERAZINE] of Lip/Tongue/Throat codeine [CODEINE] Allergy Unknown VOMITING / Verified 02/05/24 12:29 NAUSEA prednisone [PREDNISONE] Allergy Unknown BP ISSUES Verified 02/05/24 12:29 promethazine [From PHENERGAN] Allergy Unknown Unknown Verified 02/05/24 12:29 allergy reaction metoclopramide [From Reglan] Allergy Nausea Verified 02/05/24 12:29 hydroxyzine [From Vistaril] AdvReac Verified 02/05/24 12:29 Worker's Comp Is this a Worker's Comp case?: No PFS PFS Disclaimer: The information contained in this section may have been updated after the patient was seen, as this information can be updated by other users. Medical History Dizziness Sinus bradycardia Dyspnea Chest pain Insomnia Depression Anxiety Cholecystectomy planned Urinary tract infection Pneumonia Osteoporosis Allergies Edema History of anemia History of constipation Exposure to COVID-19 virus NSAIDs adverse reaction Knee effusion, right Sphincter of Oddi dysfunction Abdominal adhesions Hx of Crohn's disease Positive D dimer HTN (hypertension) Bilateral lower extremity edema Surgical History H/O oral surgery History of appendectomy H/O total hysterectomy History of esophagogastroduodenoscopy (EGD) History of arthroscopy of right knee Status post knee surgery History of intestinal surgery Family History Other Cancer Heart attack Social History Smoking Status: Unknown if ever smoked second hand exposure: No alcohol intake: never substance use type: denies use current occupational status: disabled Travel in the last 8 weeks: None household members: none housing: apartment number of children: 2 current occupational exposures/hazards: No caffeine: Yes ROS Obtained: Yes All systems reviewed & no additional complaints except as documented Constitutional Constitutional: Reports system reviewed and no additional complaints, except as documented and Reports malaise Eyes Eyes: Reports system reviewed and no additional complaints, except as documented ENT Ears, Nose, Mouth, and Throat: Reports system reviewed and no additional complaints, except as documented, Reports change in voice and Reports nasal discharge Cardiovascular Cardiovascular: Reports system reviewed and no additional complaints, except as documented Respiratory Respiratory: Reports system reviewed and no additional complaints, except as documented and Reports cough Gastrointestinal Gastrointestingal: Reports system reviewed and no additional complaints, except as documented Genitourinary Female Genitourinary: Reports system reviewed and no additional complaints, except as documented Musculoskeletal Musculoskeletal: Reports system reviewed and no additional complaints, except as documented Integumentary/Breasts Skin/Breast: Reports system reviewed and no additional complaints, except as documented Neurologic Neurologic: Reports system reviewed and no additional complaints, except as documented Endocrine Endocrine: Reports system reviewed and no additional complaints, except as documented Hematologic/Lymphatic Henatologic/Lymphatic: Reports system reviewed and no additional complaints, except as documented Allergic/Immunologic Allergic/Immunologic: Reports system reviewed and no additional complaints, except as documented Physical Exam General General appearance: alert and anxious Head Head exam: atraumatic and normocephalic Eye Eye exam: Present normal appearance Expanded ENT Exam External ear exam: Present normal external inspection TM/Canal exam: Right TM: cerumen impaction (large amount of cerumen present) Nasal speculum exam: Bilateral: normal (clear drainage) Mouth exam: Present normal external inspection Teeth exam: Present normal inspection Throat exam: Present normal inspection Neck Neck exam: Present normal inspection; Absent lymphadenopathy Chest Chest inspection: Present normal inspection and symmetric chest wall rise Respiratory Respiratory exam: Present other Expanded Respiratory Exam Location: Left: rhonchi, Upper: rhonchi and Lower: rhonchi Cardiovascular Cardiovascular exam: Present regular rate and normal rhythm Abdominal Exam Abdominal exam: Present soft and normal bowel sounds Extremities Exam Extremities exam: Present normal inspection Back Exam Back exam: Present normal inspection Neurological Exam Neurological exam: Present alert and oriented X3 Psychiatric Psychiatric exam: Present normal affect and normal mood Skin Skin exam: Present warm, dry and intact Lymphatic Lymphatic Findings: no adenopathy Medical Decision Making Grant Inquiry Pt receiving controlled substance: No Grant was queried for this patient: No Vital Signs: 02/05/24 12:00 Temperature 98.1 F Temperature Source Oral Pulse Rate [Right Radial] 63 Respiratory Rate 18 Blood Pressure [Right Arm] 149/83 H Blood Pressure Mean [Right Arm] 105 Blood Pressure Source [Right Arm] Automatic Cuff Blood Pressure Position [Right Arm] Sitting 02 Sat by Pulse Oximetry 95 Oxygen Delivery Method Room Air
[2024-02-05 13:02] VITALS: BP 145/78; PULSE 108; RESP 18; TEMP 36.9; O2SAT 99
== END 2024-02-05 13:02 | disposition home or self-care (01) ==
PROVIDERS: Emergency Provider Nurse Practitioner Family; PCP Internal Medicine
DX: R05.1 Acute cough (principal); R11.2 Nausea with vomiting, unspecified; R19.7 Diarrhea, unspecified; H92.03 Otalgia, bilateral; J06.9 Acute upper respiratory infection, unspecified
CPT/HCPCS: 99212; 99214; G0463

== ENCOUNTER 2024-02-13 14:26 | Outpatient (CLI) | payer MEDICARE, OTHER, SELFPAY ==
--- NOTE | 2024-02-13 14:33 | XR_ITS ---
FINAL REPORT CLINICAL HISTORY: cough FINDINGS: Two views of the chest were obtained. The heart size and pulmonary vascularity are within normal limits. Left subclavian chest port is present. The mediastinum is normal. No acute pulmonary abnormality is identified. There is no pneumothorax. The bony thorax is intact. IMPRESSION: No active cardiopulmonary disease. Reviewed, Interpreted and Dictated by Luis Alberto Redd III, MD Transcribed by Ivanna Martin Authenticated and [facility]
== END 2024-02-13 23:59 | disposition home or self-care (01) ==
LOC: RAD 14:27
PROVIDERS: PCP Internal Medicine; Visit Provider Internal Medicine
DX: J06.9 Acute upper respiratory infection, unspecified (principal); R05.8 Other specified cough
CPT/HCPCS: 71046

== ENCOUNTER 2024-03-15 17:21 | Emergency (ER) | payer MEDICARE, OTHER, SELFPAY ==
[2024-03-15 17:25] VITALS: BP 174/93; PULSE 72; RESP 20; TEMP 36.8; O2SAT 96; BMI 28.8
--- NOTE | 2024-03-15 17:49 | EXP.UTC ---
Discharge Plan Disposition Patient Disposition: Home, Self-Care Condition: Good Prescriptions Prescriptions: No Action fluoxetine 40 mg capsule 40 mg PO DAILY Patient Comments: TAKE TWO CAPSULES BY MOUTH EVERY DAY propranolol 10 mg tablet 10 mg PO DAILY Patient Comments: TAKE ONE TABLET BY MOUTH THREE TIMES DAILY buspirone 15 mg tablet 15 mg PO DAILY Patient Comments: TAKE ONE TABLET BY MOUTH THREE TIMES DAILY MAY CAUSE DROWSINESS Referrals Follow up/Referrals: Librado Gilmore DO [Primary Care Provider] - See instructions Activity Restrictions/Add. Instructions Additional Instructions/Restrictions: Call back in the morning for test results. Until results are know, self quarantine. Increase fluids and rest. Take Tylenol/Ibuprofen as needed for pain/fever. If symptoms persist or worsen, return to clinic or go to your primary care provider. Clinical Impressions Clinical Impression: Acute viral syndrome Instructions Patient Instructions: DI for Viral Syndrome Print Language Print Language: [place] Discharge ED Provider: Makenna Mccarty [facility] – [place], [place] HPI General Stated complaint: chills/fever, congestion, sore throat Mode of Arrival: Ambulatory Source of Information: Patient Limitations: No Limitations Time Seen by Provider: 03/15/24 17:48 Description of Symptoms (Recalled from Triage Doc. by RN): PATIENT C/O HEADACHE AND BODY ACHES SINCE LAST NIGHT. REQUESTING A COVID TEST HEENT Symptoms (Recalled from RN notes): Yes Resp Symptoms (Recalled from RN notes): No Skin Symptoms (Recalled from RN notes): No MS Symptoms (Recalled from RN notes): No Functional Status (Recalled from RN notes): WNL History of Present Illness Provider Complaint: Pt reports exposure to Covid and wishes to be tested. Pt reports that her symptoms started last night with chills and body aches. She states that she has a headache and clear runny nose as well. She denies taking anything for her symptoms. Related Data Home Medications ?Medication ?Instructions ?Recorded ?Confirmed buspirone 15 mg tablet 15 mg PO DAILY 03/15/24 03/15/24 fluoxetine 40 mg capsule 40 mg PO DAILY 03/15/24 03/15/24 propranolol 10 mg tablet 10 mg PO DAILY 03/15/24 03/15/24 Allergies Allergy/AdvReac Type Severity Reaction Status Date / Time cephalexin [From Keflex] Allergy Severe Difficulty Verified 02/13/24 13:29 Breathing prochlorperazine Allergy Severe Swelling Verified 02/13/24 13:29 [PROCHLORPERAZINE] of Lip/Tongue/Throat codeine [CODEINE] Allergy Unknown VOMITING / Verified 02/13/24 13:29 NAUSEA prednisone [PREDNISONE] Allergy Unknown BP ISSUES Verified 02/13/24 13:29 promethazine [From PHENERGAN] Allergy Unknown Unknown Verified 02/13/24 13:29 allergy reaction metoclopramide [From Reglan] Allergy Nausea Verified 02/13/24 13:29 hydroxyzine [From Vistaril] AdvReac Verified 02/13/24 13:29 Worker's Comp Is this a Worker's Comp case?: No PFS PFS Disclaimer: The information contained in this section may have been updated after the patient was seen, as this information can be updated by other users. Medical History Dizziness Sinus bradycardia Dyspnea Chest pain Insomnia Depression Anxiety Cholecystectomy planned Urinary tract infection Pneumonia Osteoporosis Allergies Edema History of anemia History of constipation Exposure to COVID-19 virus NSAIDs adverse reaction Knee effusion, right Sphincter of Oddi dysfunction Abdominal adhesions Hx of Crohn's disease This apparently was not the issue for why Angelica was admitted to the hospital recently. She was placed on sucralfate. There was some mention of ulcers but I do not see that in the discharge summary. Positive D dimer HTN (hypertension) Bilateral lower extremity edema Surgical History H/O oral surgery History of appendectomy H/O total hysterectomy History of esophagogastroduodenoscopy (EGD) History of arthroscopy of right knee Status post knee surgery Status post right knee arthroscopy with partial medial meniscectomy date of surgery May 16, 2022 History of intestinal surgery Family History Other Cancer Heart attack Social History Smoking Status: Unknown if ever smoked second hand exposure: No alcohol intake: never substance use type: denies use current occupational status: disabled Travel in the last 8 weeks: None household members: none housing: apartment number of children: 2 current occupational exposures/hazards: No caffeine: Yes ROS Obtained: Yes All systems reviewed & no additional complaints except as documented Constitutional Constitutional: Reports system reviewed and no additional complaints, except as documented, Reports body ache, Reports chills, Reports fatigue, Reports headache(s) and Reports malaise Eyes Eyes: Reports system reviewed and no additional complaints, except as documented ENT Ears, Nose, Mouth, and Throat: Reports system reviewed and no additional complaints, except as documented, Reports headache(s) and Reports nasal discharge Cardiovascular Cardiovascular: Reports system reviewed and no additional complaints, except as documented Respiratory Respiratory: Reports system reviewed and no additional complaints, except as documented Genitourinary Female Genitourinary: Reports system reviewed and no additional complaints, except as documented Musculoskeletal Musculoskeletal: Reports system reviewed and no additional complaints, except as documented Integumentary/Breasts Skin/Breast: Reports system reviewed and no additional complaints, except as documented Neurologic Neurologic: Reports system reviewed and no additional complaints, except as documented and Reports headache(s) Endocrine Endocrine: Reports system reviewed and no additional complaints, except as documented and Reports fatigue Hematologic/Lymphatic Henatologic/Lymphatic: Reports system reviewed and no additional complaints, except as documented Allergic/Immunologic Allergic/Immunologic: Reports system reviewed and no additional complaints, except as documented Physical Exam General General appearance: alert and in no apparent distress Head Head exam: atraumatic and normocephalic Eye Eye exam: Present normal appearance ENT ENT exam: Present mucous membranes moist Expanded ENT Exam External ear exam: Present normal external inspection Nose exam: Absent sinus tenderness Nasal speculum exam: Bilateral: other (clear drainage) Mouth exam: Present normal external inspection Teeth exam: Present normal inspection Throat exam: Present normal inspection Neck Neck exam: Present normal inspection; Absent lymphadenopathy Chest Chest inspection: Present normal inspection and symmetric chest wall rise Respiratory Respiratory exam: Present normal lung sounds bilaterally Cardiovascular Cardiovascular exam: Present regular rate, normal rhythm and normal heart sounds Abdominal Exam Abdominal exam: Present soft and normal bowel sounds Extremities Exam Extremities exam: Present normal inspection Back Exam Back exam: Present normal inspection Neurological Exam Neurological exam: Present alert and oriented X3 Psychiatric Psychiatric exam: Present normal affect and normal mood Skin Skin exam: Present warm, dry and intact Lymphatic Lymphatic Findings: no adenopathy Medical Decision Making Grant Inquiry Pt receiving controlled substance: No Grant was queried for this patient: No Vital Signs: 03/15/24 17:25 Temperature 98.3 F Temperature Source Oral Pulse Rate [Left Brachial] 72 Respiratory Rate 20 Blood Pressure [Left Arm] 174/93 H Blood Pressure Mean [Left Arm] 120 Blood Pressure Source [Left Arm] Automatic Cuff Blood Pressure Position [Left Arm] Sitting 02 Sat by Pulse Oximetry 96 Oxygen Delivery Method Room Air Orders (Tests/Meds): ORDERS Category Date Time Status Covid-19 Nasal PCR ([facility]) Routine Lab 03/15/24 17:31 Received
[2024-03-15 17:53] VITALS: BP 174/93; PULSE 72; RESP 20; TEMP 36.8; O2SAT 96
== END 2024-03-15 17:55 | disposition home or self-care (01) ==
PROVIDERS: Emergency Provider Nurse Practitioner Family; PCP Internal Medicine
DX: R51.9 Headache, unspecified (principal); R09.81 Nasal congestion; B34.9 Viral infection, unspecified
CPT/HCPCS: 87635; 99212; 99213; G0463

== ENCOUNTER 2024-03-22 09:24 | Emergency (ER) | payer MEDICARE, OTHER, SELFPAY ==
[2024-03-22] VITALS (7 sets, daily range): BP systolic 162–182; BP diastolic 95–102; PULSE 54–69; RESP 13–19; TEMP 36.6–36.7; O2SAT 96–98; BMI 27.9; BMI 28.8
--- NOTE | 2024-03-22 09:51 | ED_ITS ---
Discharge Plan Disposition Patient Disposition: Still a Patient Condition: Fair Prescriptions Prescriptions: No Action fluoxetine 40 mg capsule 40 mg PO DAILY Patient Comments: TAKE TWO CAPSULES BY MOUTH EVERY DAY propranolol 10 mg tablet 10 mg PO DAILY Patient Comments: TAKE ONE TABLET BY MOUTH THREE TIMES DAILY buspirone 15 mg tablet 15 mg PO DAILY Patient Comments: TAKE ONE TABLET BY MOUTH THREE TIMES DAILY MAY CAUSE DROWSINESS Referrals Follow up/Referrals: Librado Gilmore DO [Primary Care Provider] - See instructions Clinical Impressions Clinical Impression: Near syncope, Headache, Elevated blood pressure reading Print Language Print Language: Slovenian Discharge ED Provider: Rajendra Mann [facility] [place] General Stated complaint: AO 03/22/24 @06:15, fell: hbp Mode of Arrival: Ambulatory Source of Information: Patient Limitations: No Limitations Time Seen by Provider: 03/22/24 09:30 Description of Symptoms (Recalled from Triage Doc. by RN): Patient reports increased blood pressure for approx 3 days. HEENT Symptoms (Recalled from RN notes): No Resp Symptoms (Recalled from RN notes): No Skin Symptoms (Recalled from RN notes): No MS Symptoms (Recalled from RN notes): No Functional Status (Recalled from RN notes): wnl History of Present Illness Provider Complaint: She states that for the past 3 days she has had higher than normal blood pressure and headaches. She normally take lisinopril 20 daily for high blood pressure. She has called her pcp and she was instructed to take 2 of her lisinopril 20 tablets. She has did this and it has helped the blood pressure come down from 190 systolic to 160s systolic, but she has continued to have the headaches. This morning she states that got very dizzy and light headed and it caused her to fall. She denies any injury from her fall, but she states that she has had blurry vision since this happened. She denies hitting her head when she fell. Related Data Home Medications ?Medication ?Instructions ?Recorded ?Confirmed buspirone 15 mg tablet 15 mg PO DAILY 03/15/24 03/15/24 fluoxetine 40 mg capsule 40 mg PO DAILY 03/15/24 03/15/24 propranolol 10 mg tablet 10 mg PO DAILY 03/15/24 03/15/24 Allergies Allergy/AdvReac Type Severity Reaction Status Date / Time cephalexin [From Keflex] Allergy Severe Difficulty Verified 02/13/24 13:29 Breathing prochlorperazine Allergy Severe Swelling Verified 02/13/24 13:29 [PROCHLORPERAZINE] of Lip/Tongue/Throat codeine [CODEINE] Allergy Unknown VOMITING / Verified 02/13/24 13:29 NAUSEA prednisone [PREDNISONE] Allergy Unknown BP ISSUES Verified 02/13/24 13:29 promethazine [From PHENERGAN] Allergy Unknown Unknown Verified 02/13/24 13:29 allergy reaction metoclopramide [From Reglan] Allergy Nausea Verified 02/13/24 13:29 hydroxyzine [From Vistaril] AdvReac Verified 02/13/24 13:29 Worker's Comp Is this a Worker's Comp case?: No [facility] Disclaimer: The information contained in this section may have been updated after the patient was seen, as this information can be updated by other users. Medical History Dizziness Sinus bradycardia Dyspnea Chest pain Insomnia Depression Anxiety Cholecystectomy planned Urinary tract infection Pneumonia Osteoporosis Allergies Edema History of anemia History of constipation Exposure to COVID-19 virus NSAIDs adverse reaction Knee effusion, right Sphincter of Oddi dysfunction Abdominal adhesions Hx of Crohn's disease This apparently was not the issue for why Angelica was admitted to the hospital recently. She was placed on sucralfate. There was some mention of ulcers but I do not see that in the discharge summary. Positive D dimer HTN (hypertension) Bilateral lower extremity edema Surgical History H/O oral surgery History of appendectomy H/O total hysterectomy History of esophagogastroduodenoscopy (EGD) History of arthroscopy of right knee Status post knee surgery Status post right knee arthroscopy with partial medial meniscectomy date of surgery May 16, 2022 History of intestinal surgery Family History Other Cancer Heart attack Social History Smoking Status: Unknown if ever smoked second hand exposure: No alcohol intake: never substance use type: denies use current occupational status: disabled Travel in the last 8 weeks: None household members: none housing: apartment number of children: 2 current occupational exposures/hazards: No caffeine: Yes ROS Obtained: Yes All systems reviewed & no additional complaints except as documented Constitutional Constitutional: Denies chills, Denies fever(s), Reports headache(s) and Reports weakness Eyes Eyes: Denies eye discharge ENT Ears, Nose, Mouth, and Throat: Reports dizziness, Denies otalgia, Reports headache(s), Denies sore throat and Reports vertigo Cardiovascular Cardiovascular: Denies chest pain Respiratory Respiratory: Reports shortness of breath, Denies chest congestion, Denies cough, Denies stridor and Denies wheezing Gastrointestinal Gastrointestingal: Reports nausea; Denies abdominal pain, diarrhea or vomiting Genitourinary Female Genitourinary: Denies dysuria, Denies urinary frequency, Denies urinary incontinence, Denies urinary hesitancy and Reports urinary urgency Musculoskeletal Musculoskeletal: Reports myalgias Integumentary/Breasts Skin/Breast: Denies redness, Denies rash and Denies wounds Neurologic Neurologic: Reports as per HPI, Reports dizziness, Reports focal weakness, Reports headache(s), Denies paresthesias, Reports radicular pain, Reports vertigo and Reports weakness Allergic/Immunologic Allergic/Immunologic: Denies wheezing Physical Exam General General appearance: alert and in no apparent distress Head Head exam: atraumatic, normocephalic and normal inspection Eye Eye exam: Present normal appearance, PERRL and EOMI ENT ENT exam: Present normal exam, normal oropharynx, mucous membranes moist, TM's normal bilaterally and normal external ear exam Neck Neck exam: Present normal inspection, full ROM and trachea midline; Absent meningismus or lymphadenopathy Chest Chest inspection: Present normal inspection and symmetric chest wall rise; Absent tenderness Respiratory Respiratory exam: Present normal lung sounds bilaterally; Absent respiratory distress Cardiovascular Cardiovascular exam: Present regular rate and normal rhythm; Absent JVD Abdominal Exam Abdominal exam: Present soft and normal bowel sounds; Absent distention, tenderness or guarding Extremities Exam Extremities exam: Present normal inspection, full ROM and normal capillary refill; Absent calf tenderness Back Exam Back exam: Present normal inspection; Absent tenderness Neurological Exam Neurological exam: Present alert and oriented X3 Psychiatric Psychiatric exam: Present normal affect and normal mood Skin Skin exam: Present warm, dry, intact and normal color Lymphatic Lymphatic Findings: no adenopathy Medical Decision Making Medical Records Medical records reviewed: No I reviewed the patient's medical records. Grant Inquiry Pt receiving controlled substance: No Vital Signs: 03/22/24 09:38 Temperature 97.9 F Temperature Source Oral Pulse Rate [Radial] 69 Respiratory Rate 16 Blood Pressure [Right Arm] 169/102 H Blood Pressure Mean [Right Arm] 124 Blood Pressure Source [Right Arm] Automatic Cuff Blood Pressure Position [Right Arm] Sitting 02 Sat by Pulse Oximetry 97 Oxygen Delivery Method Room Air Lab Data Lab results reviewed: Yes I reviewed the patient's lab results.
--- NOTE | 2024-03-22 10:10 | PC.NURSE ---
pt arrived to er from [facility]
--- NOTE | 2024-03-22 10:14 | ECG_ITS ---
APPROVED REPORT Exam: Resting ECG HR:61 bpm ECG Measurements Heart Rate 61 AXES AR 200 P 54 QRSd 96 QRS 16 QT 437 T 42 QTc 441 Conclusion Sinus rhythm Electronically signed by : DARIO MALLOY, 03/22/2024 15:16:53
--- NOTE | 2024-03-22 10:17 | XR_ITS ---
FINAL REPORT CLINICAL HISTORY: hypertensive urgency COMPARISON: 02/13/2024 FINDINGS: A single portable view of the chest was obtained. A left subclavian chest port is present. The heart size and pulmonary vascularity are within normal limits. The mediastinum is within normal limits. No acute pulmonary abnormality is identified. The bony thorax is intact. IMPRESSION: No active cardiopulmonary disease. Reviewed, Interpreted and Dictated by Luis Alberto Redd III, MD Transcribed by Amarilys Bates Authenticated and [facility]
--- NOTE | 2024-03-22 10:35 | PC.NURSE ---
DR MALLOY AT BEDSIDE
[2024-03-22 10:46] LABS: Albumin Level 4.1 g/dl (3.5-5.0); Chloride 110 mmol/L (98-107); Sodium 138 mmol/L (136-145)
[2024-03-22 10:47] LABS: Potassium 3.8 mmoL/L (3.5-5.1)
[2024-03-22 10:49] LABS: Alanine Aminotransferase 15 U/L (12-78); Albumin/Globulin Ratio 1.5 (1.1-1.8); Alkaline Phosphatase 47 U/L (38-126); Anion Gap 3.8 mEq/L (5-15); Aspartate Amino Transferase 23 U/L (14-36); Bilirubin,Total 0.6 mg/dl (0.2-1.3); Blood Urea Nitrogen 16 mg/dl (7-17); Carbon Dioxide 28 mmol/L (22.0-30.0); Creatinine Clearance Estimated 65 mL/min (50-200); Estimated Glomerular Filt Rate 62 ml/min (>60); GFR (African American) 75 ML/MIN (>60); Globulin 2.8 g/dL (1.3-3.2); Total Protein,Serum 6.9 g/dl (6.3-8.2)
[2024-03-22 10:50] LABS: Calcium 8.5 mg/dl (8.4-10.2); Glucose 96 mg/dl (74-100); Magnesium 1.7 mg/dl (1.6-2.3)
--- NOTE | 2024-03-22 10:50 | PC.NURSE ---
PT ASSISTED TO BR
[2024-03-22] MEDS: KETOROLAC 30MG/ML VIAL 15 MG IV (10:53)
[2024-03-22] MEDS: MAGNESIUM SULFATE IN WATER 2 GM/50 ML PIGGYBACK IV (10:53)
[2024-03-22] MEDS: ACETAMINOPHEN 1,000MG/100ML VIAL 1000 MG IV (10:53)
[2024-03-22] MEDS: DEXAMETHASONE 4MG/ML 1ML VIAL 10 MG IV (10:54)
[2024-03-22] MEDS: droPERidol 5MG/2ML VIAL 2.5 MG IV (10:54)
[2024-03-22 10:55] LABS: Basophils % 0.4 % (0.1-2.0); Eosinophils # 0.2 K/mm3 (0.0-0.4); Eosinophils % 3.1 % (0.1-12.0); Hematocrit 35.3 % (37.0-47.0); Lymphocytes # 2.1 K/mm3 (0.7-4.5); Lymphocytes % 30.1 % (10-50); Mean Corpuscular HGB Conc 31.1 g/dL (31.8-35.4); Mean Corpuscular Hemoglobin 28.4 pg (27.0-31.2); Mean Corpuscular Volume 91.1 fl (81-99); Mean Platelet Volume 9.1 fl (7.4-10.4); Monocytes # 0.3 K/mm3 (0.1-1.0); Monocytes % 3.7 % (1.7-9.3); Neutrophils # 4.3 K/mm3 (1.8-7.8); Neutrophils % 62.6 % (37.0-80.0); Platelet Count 264 K/mm3 (142-424); Red Blood Count 3.88 M/mm3 (4.20-5.40); Red Cell Distribution Width 15.6 % (11.5-17.5); White Blood Count 6.8 K/mm3 (4.8-10.8)
[2024-03-22] MEDS: LACTATED RINGERS 1000ML 1,000 ML 999 ML IV (10:55)
[2024-03-22 10:59] LABS: NT Pro Brain Natriuretic Pep. 402 pg/mL (0-125)
--- NOTE | 2024-03-22 11:00 | PC.NURSE ---
PT MEDICATED PER EMAR, WARM BLANKET PROVIDED. CALL LIGHT WITHIN REACH. FAMILY AT BEDSIDE
[2024-03-22 11:02] LABS: Troponin I < 0.01 ng/ml (0.00-0.034)
--- NOTE | 2024-03-22 12:03 | ED_ITS ---
Discharge Plan Disposition Patient Disposition: Home, Self-Care Condition: Fair Prescriptions Prescriptions: No Action fluoxetine 40 mg capsule 40 mg PO DAILY Patient Comments: TAKE TWO CAPSULES BY MOUTH EVERY DAY propranolol 10 mg tablet 10 mg PO DAILY Patient Comments: TAKE ONE TABLET BY MOUTH THREE TIMES DAILY buspirone 15 mg tablet 15 mg PO DAILY Patient Comments: TAKE ONE TABLET BY MOUTH THREE TIMES DAILY MAY CAUSE DROWSINESS Referrals Follow up/Referrals: Librado Gilmore DO [Primary Care Provider] - See instructions Activity Restrictions/Add. Instructions Additional Instructions/Restrictions: Call your family doctor to establish care for this visit to the emergency department and schedule follow-up within 48 hours to ensure improvement. If you have any worsening of your condition or any other concerning signs or symptoms, return to the emergency department or your primary care doctor for further evaluation. Clinical Impressions Clinical Impression: Near syncope, Headache, Elevated blood pressure reading Instructions Patient Instructions: DI for Syncope in Adults (Fainting), DI for Syncope in Children (Fainting) Print Language Print Language: Faroese Discharge ED Provider: Rajendra Mann General Adult HPI General Chief complaint: Syncope Stated complaint: AO 03/22/24 @06:15, fell: hbp Time Seen by Provider: 03/22/24 09:30 Mode of Arrival: Wheelchair Limitations: No Limitations Description of Symptoms (Recalled from ER Triage Doc. by RN): PT FROM [email or web address] FOR FURTHER EVALUATION OF ELEVATED BLOOD PRESSURE. PT STATES SHE FELL OUT AT 0600 THIS AM, DENIES LOC, THAT SHE HAS FELT WEEK. REPORTS DIZZINESS, HEADACHE, BLURRY VISION AND DRY MOUTH FOR 2-3 DAYS. REPORTS BILATERAL HAND TINGLING History of Present Illness HPI narrative: Please note that above description of symptoms, in this electronic medical record under categorization of recalled from ER triage doctor by RN are reflective of an initial nursing assessment, however, is not reflective of my full history and physical exam that was personally taken and clarified. Consequentially, this preceding description of symptoms, which may include the patient's categorized chief complaint in the EMR, do not reflect my personal clinical impression, and the ultimate description of history of present illness and patient stated complaints should be deferred to this section of the note. Unless stated otherwise or congruent with this section of the note, additional signs, symptoms, or incongruence should be interpreted as inaccurate with my clinical impression. Related Data Home Medications ?Medication ?Instructions ?Recorded ?Confirmed buspirone 15 mg tablet 15 mg PO DAILY 03/15/24 03/15/24 fluoxetine 40 mg capsule 40 mg PO DAILY 03/15/24 03/15/24 propranolol 10 mg tablet 10 mg PO DAILY 03/15/24 03/15/24 Allergies Allergy/AdvReac Type Severity Reaction Status Date / Time cephalexin [From Keflex] Allergy Severe Difficulty Verified 02/13/24 13:29 Breathing prochlorperazine Allergy Severe Swelling Verified 02/13/24 13:29 [PROCHLORPERAZINE] of Lip/Tongue/Throat codeine [CODEINE] Allergy Unknown VOMITING / Verified 02/13/24 13:29 NAUSEA prednisone [PREDNISONE] Allergy Unknown BP ISSUES Verified 02/13/24 13:29 promethazine [From PHENERGAN] Allergy Unknown Unknown Verified 02/13/24 13:29 allergy reaction metoclopramide [From Reglan] Allergy Nausea Verified 02/13/24 13:29 hydroxyzine [From Vistaril] AdvReac Verified 02/13/24 13:29 PFSH PFS Disclaimer: The information contained in this section may have been updated after the patient was seen, as this information can be updated by other users. Medical History Dizziness Sinus bradycardia Dyspnea Chest pain Insomnia Depression Anxiety Cholecystectomy planned Urinary tract infection Pneumonia Osteoporosis Allergies Edema History of anemia History of constipation Exposure to COVID-19 virus NSAIDs adverse reaction Knee effusion, right Sphincter of Oddi dysfunction Abdominal adhesions Hx of Crohn's disease This apparently was not the issue for why Angelica was admitted to the hospital recently. She was placed on sucralfate. There was some mention of ulcers but I do not see that in the discharge summary. Positive D dimer HTN (hypertension) Bilateral lower extremity edema Surgical History H/O oral surgery History of appendectomy H/O total hysterectomy History of esophagogastroduodenoscopy (EGD) History of arthroscopy of right knee Status post knee surgery Status post right knee arthroscopy with partial medial meniscectomy date of surgery May 16, 2022 History of intestinal surgery Family History Other Cancer Heart attack Social History Smoking Status: Never smoker second hand exposure: No alcohol intake: never substance use type: denies use current occupational status: disabled Travel in the last 8 weeks: None household members: none housing: apartment number of children: 2 current occupational exposures/hazards: No caffeine: Yes ROS Obtained: Yes All systems reviewed & no additional complaints except as documented Physical Exam General General appearance: alert and in no apparent distress Head Head exam: atraumatic and normocephalic Eye Eye exam: Present normal appearance, PERRL and EOMI Neck Neck exam: Present normal inspection, full ROM and trachea midline Respiratory Respiratory exam: Absent respiratory distress, wheezes, stridor, accessory muscle use or prolonged expiratory phase Cardiovascular Cardiovascular exam: Present other (Pulses equal symmetric in upper and lower extremities) Abdominal Exam Abdominal exam: Present soft; Absent distention, tenderness or pulsatile mass Extremities Exam Extremities exam: Absent edema Neurological Exam Neurological exam: Present alert, oriented X3 and CN II-XII intact; Absent motor sensory deficit Skin Skin exam: Present warm and dry; Absent diaphoresis or erythema Medical Decision Making Medical Records Medical records reviewed: Yes I reviewed the patient's medical records. Grant Inquiry Pt receiving controlled substance: No Grant was queried for this patient: No Vital Signs: 03/22/24 09:38 03/22/24 10:10 03/22/24 10:18 Temperature 97.9 F 98.0 F Temperature Source Oral Oral Pulse Rate 63 Pulse Rate [Radial] 69 65 Respiratory Rate 16 18 14 Blood Pressure 162/97 H Blood Pressure [Right Arm] 169/102 H 162/97 H Blood Pressure Mean [Right Arm] 124 118 Blood Pressure Source [Right Arm] Automatic Cuff Automatic Cuff Blood Pressure Position [Right Arm] Sitting Sitting 02 Sat by Pulse Oximetry 97 98 98 Oxygen Delivery Method Room Air Room Air 03/22/24 11:21 03/22/24 13:04 Temperature Temperature Source Pulse Rate 54 L 55 L Pulse Rate [Radial] Respiratory Rate 13 14 Blood Pressure 182/95 H 166/99 H Blood Pressure [Right Arm] Blood Pressure Mean [Right Arm] Blood Pressure Source [Right Arm] Blood Pressure Position [Right Arm] 02 Sat by Pulse Oximetry 96 98 Oxygen Delivery Method Room Air Room Air Lab Data Lab Results 03/22/24 10:15: WBC 6.8, RBC 3.88 L, Hgb 11.0 L, Hct 35.3 L, MCV 91.1, MCH 28.4, MCHC 31.1 L, RDW 15.6, Plt Count 264, MPV 9.1, Neut % (Auto) 62.6, Lymph % (Auto) 30.1, Chambers % (Auto) 3.7, Eos % (Auto) 3.1, Baso % (Auto) 0.4, Neut # (Auto) 4.3, Lymph # (Auto) 2.1, Chambers # (Auto) 0.3, Eos # (Auto) 0.2, Baso # (Auto) 0.0, Sodium 138, Potassium 3.8, Chloride 110 H, Carbon Dioxide 28, Anion Gap 3.8 L, BUN 16, Creatinine 0.90, Estimated Creat Clear 65, Estimated GFR 62, Est GFR ( Amer) 75, Glucose 96, Calcium 8.5, Magnesium 1.7, Total Bilirubin 0.6, AST 23, ALT 15, Alkaline Phosphatase 47, Troponin I < 0.01, N T-Pro-B Natriuret Pep 402 H, Total Protein 6.9, Albumin 4.1, Globulin 2.8, Albumin/Globulin Ratio 1.5 03/22/24 10:15 03/22/24 10:15 Orders (Tests/Meds): ED MEDICATIONS Discontinued Medications Generic Name Dose Route Start Last Admin Trade Name Morrisq PRN Reason Stop Dose Admin Acetaminophen 1,000 mg 03/22/24 10:41 03/22/24 10:53 Acetaminophen 1,000mg/100ml Vial IV 03/22/24 10:42 1,000 mg ONCE ONE Administration Dexamethasone Sodium Phosphate 10 mg 03/22/24 10:41 03/22/24 10:54 Dexamethasone 4mg/Ml 1ml Vial IV 03/22/24 10:42 10 mg ONCE ONE Administration Droperidol 2.5 mg 03/22/24 10:41 03/22/24 10:54 Droperidol 5mg/2ml Vial IV 03/22/24 10:42 2.5 mg ONCE ONE Administration Magnesium Sulfate 2 gm in 50 mls @ 50 mls/hr 03/22/24 10:41 03/22/24 10:53 Magnesium Sulfate 2gm/50ml Premix IV 03/22/24 11:40 50 mls/hr ONCE ONE Administration Lactated Ringer's 1,000 mls @ 999 mls/hr 03/22/24 10:51 03/22/24 10:55 Lactated Ringer's 1000 Ml Bag IV 03/22/24 11:51 999 mls/hr .Q1H1M ONE Administration Ketorolac Tromethamine 15 mg 03/22/24 10:41 03/22/24 10:53 Ketorolac 30mg/Ml Vial IV 03/22/24 10:42 15 mg ONCE ONE Administration ORDERS Category Date Time Status CT head/brain wo con Stat Cat Scan 03/22/24 12:04 Taken XR chest portable Stat Exams 03/22/24 10:17 Completed Complete Blood Count Auto Diff Stat Lab 03/22/24 10:15 Completed Comprehensive Metabolic Panel Stat Lab 03/22/24 10:15 Completed Magnesium Stat Lab 03/22/24 10:15 Completed NT Pro Brain Natriuretic Pep. Stat Lab 03/22/24 10:15 Completed Troponin I Q3H Lab 03/22/24 13:30 Ordered Troponin I Q3H Lab 03/22/24 16:30 Ordered Troponin I Stat Lab 03/22/24 10:15 Completed Medical Decision Narrative: 68-year-old female presenting with hypertension and headache. Patient states that headache started about 2 days prior to this on 03/20 in the PM has been progressively worsening since that time. Came to the urgent care today, 03/22, was complaining of headache. Initial blood pressure in the 190s or 200 systolic, so sent to the emergency department out of concern for hypertensive urgency. Patient states she has not had any vision changes, vomiting, chest pain, shortness of breath, but has had 1 episode of near syncope. Has not taken anything for the headache other than her Lortabs that she has for chronic pain. No focal neurologic deficits. On arrival, patient hemodynamically stable, alert, oriented x4, appropriate, GCS 15, moving all extremities spontaneously, pupils equal and reactive to light. Full physical exam performed and significant for elderly female in no acute distress. Mildly hypertensive, borderline bradycardic. Neurologically intact including motor, sensory, cerebellar, cranial nerves. Cardiac exam otherwise normal with no lower extremity edema, no murmurs gallops rubs. Pulses equal and symmetric in upper and lower extremities. Range of motion of neck normal, no tenderness. Differential includes tension headache, migraine, hypertensive urgency, hypertensive emergency, intracranial bleed, pain seeking behavior, among others. Patient placed on continuous cardiac monitoring and continuous pulse ox with initial blood pressure 162/97, heart rate 63, saturation 98% on room air. Independent interpretation of EKG shows sinus rhythm 61 beats a minute without ST or T wave changes concerning for WA. WA 200, QRS 96, QTc 441. Patient was given headache cocktail for symptomatic management and correction of underlying abnormalities. Patient was placed in observation beginning at 10 AM in order to rule out cardiac etiology, give migraine cocktail and monitor for improvement and determine need for admission versus home-going. The patient was provided meds, cardiac monitoring while awaiting results. Independent interpretation of results demonstrated nonactionable CBC or chemistry. Electrolytes normal. Troponin negative, BNP nonactionable. Chest x-ray without acute airspace disease. Head CT without acute intracranial hemorrhage or abnormality on independent interpretation. On reevaluation, patient resting calmly bed no symptoms ready to go home. At this time, I feel patient is appropriate for discharge. Total observation time 3 hours. Given patient presentation, workup, history, this most likely represents migraine headache and pain induced hypertension. Because patient at baseline without signs or symptoms of clinical decompensation, deemed appropriate for discharge. Results were relayed to patient who voiced understanding and were agreeable to outpatient management and follow up. I discussed my clinical impression with patient and answered all questions. At this time, the evidence for any other entities in the differential is insufficient to warrant any further testing or ED observation. This was explained as well. Advisory was given that persistent or worsening symptoms require further evaluation. I confirmed the understanding of this discussion. 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 Electronic relish maker of the spoken language may permit errors. Although I have reviewed the note, some errors may still exist. Critical Care Critical Care Time Critical Care Time: No
--- NOTE | 2024-03-22 12:04 | CT_ITS ---
FINAL REPORT CLINICAL HISTORY: TRAMMELL bradycardia COMPARISON: 11/09/2023 FINDINGS: Axial images of the head were obtained without contrast. Coronal reformatted images were also obtained. This study was performed with techniques to keep radiation doses as low as reasonably achievable (ALARA). Individualized dose reduction techniques using automated exposure control or adjustment of mA and/or kV according to the patient''s size were employed. Bilateral basal ganglier calcifications are stable. There is generalized age-appropriate atrophy. Periventricular low-attenuation areas are seen consistent with mild chronic ischemic changes. There is no evidence of intracranial hemorrhage or mass. There is no evidence of acute infarct. There is no evidence of shift of the midline structures. No skull abnormality is seen on the bone window images. There is opacification of multiple left mastoid air cells, similar to prior exam. IMPRESSION: Atrophy and mild periventricular chronic ischemic changes. No acute intracranial abnormality identified. Reviewed, Interpreted and Dictated by Luis Alberto Redd III, MD Transcribed by Monae Francis Authenticated and [facility]
--- NOTE | 2024-03-22 12:28 | PC.NURSE ---
PT TO CT
--- NOTE | 2024-03-22 13:39 | PC.NURSE ---
Dr. Mann at BS to update pt on results and POC
== END 2024-03-22 13:55 | disposition home or self-care (01) ==
LOC: UTC 09:45 → ER 10:09
PROVIDERS: Emergency Provider Emergency Medicine; PCP Internal Medicine
DX: R55 Syncope and collapse (principal); G44.89 Other headache syndrome; I10 Essential (primary) hypertension; R53.1 Weakness; R42 Dizziness and giddiness; R20.2 Paresthesia of skin
CPT/HCPCS: 70450; 71045; 80053; 83735; 83880; 84484; 85025; 93005; 96365; 96375; 99285; J0131; J1100; J1642; J1790; J1885; J3475; J7120

== ENCOUNTER 2024-04-04 15:59 | Outpatient (CLI) | payer MEDICARE, OTHER, SELFPAY ==
--- NOTE | 2024-04-04 16:00 | MR_ITS ---
FINAL REPORT TECHNIQUE: Multiplanar MR, without and with contrast administration CLINICAL HISTORY: worsening headaches. increased blood pressure. dizziness and blurred vision COMPARISON: 12/23/2020 FINDINGS: Diffusion sequences show no signal abnormalities to indicate acute infarct. There is extensive abnormal signal throughout the periventricular and subcortical white matter, stable from prior. There is cavum septum pellucidum. Ventricles are normal. No edema or hemorrhage is seen. Major vessel flow-voids are intact. There is extensive abnormal signal in the left mastoid air cells, new since prior. Following contrast administration, there is no mass or abnormal parenchymal enhancement. IMPRESSION: Interval development of left mastoiditis. Stable extensive changes chronic ischemia. Reviewed, Interpreted and Dictated by Bill Thomas MD Transcribed by Ivanna Martin Authenticated and [facility]
[2024-04-04] MEDS: SODIUM CHLORIDE 0.9% 10ML SYR (RAD ONLY) 10 ML IV (16:50)
[2024-04-04] MEDS: GADOTERIDOL INJ 20ML SYRINGE 15 ML IV (16:50)
== END 2024-04-04 23:59 | disposition home or self-care (01) ==
LOC: RAD 15:59
PROVIDERS: PCP Family Medicine; Visit Provider Family Medicine
DX: R51.9 Headache, unspecified (principal)
CPT/HCPCS: 70553; A9576

== ENCOUNTER 2024-04-05 11:47 | Emergency (ER) | payer MEDICARE, OTHER, SELFPAY ==
[2024-04-05 12:08] VITALS: BP 135/89; PULSE 76; O2SAT 93
--- NOTE | 2024-04-05 12:12 | PC.NURSE ---
Dr. Foster at bedside
[2024-04-05 12:14] VITALS: BP 135/85; PULSE 76; RESP 18; TEMP 36.8; O2SAT 97; BMI 28.8
[2024-04-05 12:30] VITALS: BP 140/75; PULSE 77; O2SAT 94
[2024-04-05 12:40] LABS: Basophils # 0.1 K/mm3 (0-0.2); Basophils % 0.8 % (0.1-2.0); Eosinophils # 0.4 K/mm3 (0.0-0.4); Eosinophils % 4.8 % (0.1-12.0); Hematocrit 34.9 % (37.0-47.0); Hemoglobin 11.1 g/dL (12.2-16.2); Lymphocytes # 2.1 K/mm3 (0.7-4.5); Mean Corpuscular HGB Conc 31.7 g/dL (31.8-35.4); Mean Corpuscular Hemoglobin 28.1 pg (27.0-31.2); Mean Corpuscular Volume 88.9 fl (81-99); Mean Platelet Volume 8.9 fl (7.4-10.4); Monocytes # 0.5 K/mm3 (0.1-1.0); Monocytes % 6.2 % (1.7-9.3); Neutrophils # 4.5 K/mm3 (1.8-7.8); Neutrophils % 60.2 % (37.0-80.0); Platelet Count 295 K/mm3 (142-424); Red Blood Count 3.93 M/mm3 (4.20-5.40); White Blood Count 7.5 K/mm3 (4.8-10.8)
[2024-04-05 12:46] LABS: Albumin Level 4.1 g/dl (3.5-5.0); Chloride 105 mmol/L (98-107); Potassium 4.4 mmoL/L (3.5-5.1); Sodium 138 mmol/L (136-145)
[2024-04-05 12:49] LABS: Alanine Aminotransferase 28 U/L (12-78); Albumin/Globulin Ratio 1.4 (1.1-1.8); Alkaline Phosphatase 59 U/L (38-126); Anion Gap 8.4 mEq/L (5-15); Aspartate Amino Transferase 42 U/L (14-36); Bilirubin,Total 0.5 mg/dl (0.2-1.3); Blood Urea Nitrogen 27 mg/dl (7-17); Carbon Dioxide 29 mmol/L (22.0-30.0); Creatinine Clearance Estimated 65 mL/min (50-200); Estimated Glomerular Filt Rate 55 ml/min (>60); GFR (African American) 67 ML/MIN (>60); Globulin 2.9 g/dL (1.3-3.2)
[2024-04-05 12:50] LABS: Calcium 8.8 mg/dl (8.4-10.2); Glucose 101 mg/dl (74-100)
[2024-04-05] MEDS: KETOROLAC 30MG/ML VIAL 15 MG IV (12:54)
[2024-04-05] MEDS: AMPICILLIN SODIUM/SULBACTAM 3 GM in 0.9 % SODIUM CHLORIDE 100 ML IV (12:55)
[2024-04-05] MEDS: LACTATED RINGERS 1000ML 1,000 ML 999 ML IV (12:55)
[2024-04-05 13:00] VITALS: BP 116/65; PULSE 70; O2SAT 94
--- NOTE | 2024-04-05 13:10 | ED_ITS ---
Discharge Plan Disposition Patient Disposition: Home, Self-Care Condition: Good Prescriptions Prescriptions: New amoxicillin-pot clavulanate [Augmentin] 500-125 mg tablet 1 tab PO BID 7 Days Qty: 14 0RF No Action buprenorphine-naloxone 8-2 mg tablet, sublingual 2 tab sublingual ONCE Patient Comments: DISSOLVE 2 TABLETS UNDER THE TONGUE ONCE DAILY DIRECTED sumatriptan succinate 50 mg tablet See Rx Instructions PO .COMPLEX PRN (Reason: migraine headache) Qty: 14 0RF Rx Instructions: take 1 tab at onset of headache; if no relief may repeat 1 tab after at least 2 hrs; max = 4 tabs/24 hr orally PRN; lisinopril-hydrochlorothiazide 20-12.5 mg tablet 1 tab PO BID Qty: 60 2RF fluoxetine 40 mg capsule 40 mg PO DAILY Patient Comments: TAKE TWO CAPSULES BY MOUTH EVERY DAY propranolol 10 mg tablet 10 mg PO DAILY Patient Comments: TAKE ONE TABLET BY MOUTH THREE TIMES DAILY buspirone 15 mg tablet 15 mg PO DAILY Patient Comments: TAKE ONE TABLET BY MOUTH THREE TIMES DAILY MAY CAUSE DROWSINESS Referrals Follow up/Referrals: Librado Gilmore DO [Primary Care Provider] - See instructions Activity Restrictions/Add. Instructions Additional Instructions/Restrictions: Follow-up with the ENT. You should get a call on Monday to schedule an appointment. Take antibiotics as prescribed. Take Tylenol and ibuprofen as needed for pain. Please turn emergency room with any new, concerning, worsening symptoms Clinical Impressions Clinical Impression: Headache Qualifiers: Headache type: unspecified Headache chronicity pattern: acute headache I ntractability: not intractable Qualified Code(s): R51.9 - Headache, unspecified Print Language Print Language: Irish Discharge ED Provider: Krunal Foster General Adult HPI General Chief complaint: PAIN Stated complaint: abnormal test/ sent by [facility] Time Seen by Provider: 04/05/24 12:15 Mode of Arrival: Ambulatory Source of Information: Patient Limitations: No Limitations Description of Symptoms (Recalled from ER Triage Doc. by RN): pt states she was sent here by her PCP Asmita Parikh. her pcp called her and states she has mastoiditis per her MRI yesterday. pcp thinks she needs admitted for IV antibiotics for 6wks. pt c/o L pain above her R ear in her head ongoing x1mo that is sharp and 10/10 History of Present Illness HPI narrative: This is a 68-year-old female with a history of Crohn's disease and hypertension who presents from PCP with concern for mastoiditis. States that she has had an intermittent headache for the last 3 weeks. Denies fever. Reports left ear pain. Had an MRI outpatient and followed up with PCP today with concern for mastoiditis. Sent to the emergency department for further evaluation and admission for IV antibiotics. Related Data Home Medications ?Medication ?Instructions ?Recorded ?Confirmed buspirone 15 mg tablet 15 mg PO DAILY 03/15/24 04/01/24 fluoxetine 40 mg capsule 40 mg PO DAILY 03/15/24 04/01/24 propranolol 10 mg tablet 10 mg PO DAILY 03/15/24 04/01/24 buprenorphine 8 mg-naloxone 2 mg 2 tab sublingual ONCE 04/01/24 04/01/24 sublingual tablet Previous Rx's ?Medication ?Instructions ?Recorded lisinopril 20 1 tab PO BID #60 tabs 03/25/24 mg-hydrochlorothiazide 12.5 mg tablet sumatriptan succinate 50 mg tablet See Rx Instructions PO .COMPLEX 03/25/24 PRN migraine headache #14 tabs amoxicillin 500 mg-potassium 1 tab PO BID 7 days #14 tabs 04/05/24 clavulanate 125 mg tablet (Augmentin) Allergies Allergy/AdvReac Type Severity Reaction Status Date / Time cephalexin [From Keflex] Allergy Severe Difficulty Verified 04/01/24 13:14 Breathing prochlorperazine Allergy Severe Swelling Verified 04/01/24 13:14 [PROCHLORPERAZINE] of Lip/Tongue/Throat codeine [CODEINE] Allergy Unknown VOMITING / Verified 04/01/24 13:14 NAUSEA prednisone [PREDNISONE] Allergy Unknown BP ISSUES Verified 04/01/24 13:14 promethazine [From PHENERGAN] Allergy Unknown Unknown Verified 04/01/24 13:14 allergy reaction metoclopramide [From Reglan] Allergy Nausea Verified 04/01/24 13:14 hydroxyzine [From Vistaril] AdvReac Verified 04/01/24 13:14 [facility] Disclaimer: The information contained in this section may have been updated after the patient was seen, as this information can be updated by other users. Medical History Dizziness Sinus bradycardia Dyspnea Chest pain Insomnia Depression Anxiety Cholecystectomy planned Urinary tract infection Pneumonia Osteoporosis Allergies Edema History of anemia History of constipation Exposure to COVID-19 virus NSAIDs adverse reaction Knee effusion, right Sphincter of Oddi dysfunction Abdominal adhesions Hx of Crohn's disease This apparently was not the issue for why Angelica was admitted to the hospital recently. She was placed on sucralfate. There was some mention of ulcers but I do not see that in the discharge summary. Positive D dimer HTN (hypertension) Bilateral lower extremity edema Surgical History H/O oral surgery History of appendectomy H/O total hysterectomy History of esophagogastroduodenoscopy (EGD) History of arthroscopy of right knee Status post knee surgery Status post right knee arthroscopy with partial medial meniscectomy date of surgery May 16, 2022 History of intestinal surgery Family History Other Cancer Heart attack Social History Smoking Status: Never smoker second hand exposure: No alcohol intake: never substance use type: denies use current occupational status: disabled Travel in the last 8 weeks: None household members: none housing: apartment number of children: 2 current occupational exposures/hazards: No caffeine: Yes ROS Obtained: Yes All systems reviewed & no additional complaints except as documented Physical Exam General General appearance: alert and in no apparent distress Eye Eye exam: Present normal appearance, PERRL and EOMI ENT ENT exam: Present normal exam, TM's normal bilaterally, normal external ear exam and other (No mastoid tenderness or erythema) Respiratory Respiratory exam: Present normal lung sounds bilaterally; Absent respiratory distress Cardiovascular Cardiovascular exam: Present regular rate and normal rhythm Abdominal Exam Abdominal exam: Present soft and distention; Absent tenderness, guarding or rebound Extremities Exam Extremities exam: Present normal inspection Neurological Exam Neurological exam: Present alert and oriented X3 Skin Skin exam: Present warm and dry Medical Decision Making Medical Records Medical records reviewed: Yes I reviewed the patient's medical records. Grant Inquiry Pt receiving controlled substance: No Vital Signs: 04/05/24 12:08 04/05/24 12:14 04/05/24 12:30 Temperature 98.3 F Temperature Source Oral Pulse Rate 76 77 Pulse Rate [Left] 76 Respiratory Rate 18 Blood Pressure 135/89 140/75 Blood Pressure [Right Arm] 135/85 Blood Pressure Mean [Right Arm] 101 Blood Pressure Source Blood Pressure Source [Right Arm] Automatic Cuff Blood Pressure Position Blood Pressure Position [Right Arm] Sitting 02 Sat by Pulse Oximetry 93 L 97 94 L Oxygen Delivery Method Room Air Room Air Room Air 04/05/24 13:00 04/05/24 13:30 04/05/24 14:35 Temperature 97.9 F Temperature Source Oral Pulse Rate 70 65 70 Pulse Rate [Left] Respiratory Rate 18 Blood Pressure 116/65 122/73 159/88 H Blood Pressure [Right Arm] Blood Pressure Mean [Right Arm] Blood Pressure Source Automatic Cuff Blood Pressure Source [Right Arm] Blood Pressure Position Sitting Blood Pressure Position [Right Arm] 02 Sat by Pulse Oximetry 94 L 97 Oxygen Delivery Method Room Air Room Air Room Air Lab Data Lab Results 04/05/24 12:30: WBC 7.5, RBC 3.93 L, Hgb 11.1 L, Hct 34.9 L, MCV 88.9, MCH 28.1, MCHC 31.7 L, RDW 16.0, Plt Count 295, MPV 8.9, Neut % (Auto) 60.2, Lymph % (Auto) 28.0, Churchill % (Auto) 6.2, Eos % (Auto) 4.8, Baso % (Auto) 0.8, Neut # (Auto) 4.5, Lymph # (Auto) 2.1, Churchill # (Auto) 0.5, Eos # (Auto) 0.4, Baso # (Auto) 0.1, Sodium 138, Potassium 4.4, Chloride 105, Carbon Dioxide 29, Anion Gap 8.4, BUN 27 H, Creatinine 1.00, Estimated Creat Clear 65, Estimated GFR 55 L , Est GFR ( Amer) 67, Glucose 101 H, Calcium 8.8, Total Bilirubin 0.5, A ST 42 H, ALT 28, Alkaline Phosphatase 59, Total Protein 7.0, Albumin 4.1, Globulin 2.9, Albumin/Globulin Ratio 1.4 04/05/24 12:30 04/05/24 12:30 Orders (Tests/Meds): ED MEDICATIONS Discontinued Medications Generic Name Dose Route Start Last Admin Trade Name Freq PRN Reason Stop Dose Admin Heparin Sodium (Porcine) 300 unit 04/05/24 14:30 04/05/24 14:31 Heparin Lock Flush 500 Units/5ml Syr IV 04/05/24 14:31 5 ml ONCE ONE Administration Ampicillin Sodium/Sulbactam 100 mls @ 200 mls/hr 04/05/24 12:16 04/05/24 12:55 Sodium 3 gm/ Sodium Chloride IV 04/05/24 12:17 200 mls/hr ONCE ONE Administration Lactated Ringer's 1,000 mls @ 999 mls/hr 04/05/24 12:16 04/05/24 12:55 Lactated Ringer's 1000 Ml Bag IV 04/05/24 13:16 999 mls/hr .Q1H1M ONE Administration Ketorolac Tromethamine 15 mg 04/05/24 12:16 04/05/24 12:54 Ketorolac 30mg/Ml Vial IV 04/05/24 12:17 15 mg ONCE ONE Administration ORDERS Category Date Time Status CBC w/Auto Diff [Complete Blood Count Auto Diff] Stat Lab 04/05/24 12:30 Completed CMP [Comprehensive Metabolic Panel] Stat Lab 04/05/24 12:30 Completed Blood Culture Stat Micro 04/05/24 12:30 Received Medical Decision Narrative: This is a 68-year-old female with a history of Crohn's disease and hypertension who presents from PCP with concern for mastoiditis. On arrival, patient afebrile, hemodynamically stable, nontoxic-appearing. Differential diagnose includes but is not limited to mastoid air cell effusion, mastoiditis, meningitis/encephalitis. Low clinical concern for meningitis/encephalitis at this time. MRI performed on 04/04/2024 was available in imaging and independently interpreted by me, revealing of hyperintense signal over left mastoid. Radiology report noted concern for mastoiditis. Initial management included 1 L of lactated Ringer's, Toradol for headache, and IV Unasyn. Laboratory workup included blood cultures x 2, CBC, CMP. Labs showed white blood cell count of 7.5 from 6.8 on 03/22, unremarkable CMP. White blood cell count of 7.5 from 6.8 on 03/22/2024, unremarkable CMP. Discussed patient's case and presentation and laboratory workup with primary care provider. Low clinical suspicion for acute mastoiditis at this time as patient was nontender to her mastoid with no overlying erythema or swelling. Discussed that this was most likely a mastoid air cell effusion. Hospitalization versus transfer to institution with higher level of care and ENT availability was discussed, however patient had ENT follow-up on Monday. Patient was ultimately discharged with plan for outpatient follow-up. PCP also recommended prescription for Augmentin in the meantime. Critical Care Critical Care Time Critical Care Time: No
[2024-04-05 13:30] VITALS: BP 122/73; PULSE 65; O2SAT 97
--- NOTE | 2024-04-05 14:07 | PC.NURSE ---
CALLING OFFICE FOR REYNA SO MD CAN SPEAK WITH HER IN REGARDS TO PT
[2024-04-05 14:35] VITALS: BP 159/88; PULSE 70; RESP 18; TEMP 36.6; O2SAT 95
== END 2024-04-05 14:36 | disposition home or self-care (01) ==
PROVIDERS: Emergency Provider Student in an Organized Health Care Education/Training Program; PCP Internal Medicine
DX: R51.9 Headache, unspecified (principal); H92.02 Otalgia, left ear; I10 Essential (primary) hypertension
CPT/HCPCS: 80053; 85025; 87040; 96361; 96374; 96375; 99285; J0295; J1642; J1885; J7120

== ENCOUNTER 2024-05-15 17:28 | Emergency (ER) | payer MEDICARE, SELFPAY ==
[2024-05-15 17:19] VITALS: BP 145/80; PULSE 67; RESP 15; TEMP 36.8; O2SAT 97
--- NOTE | 2024-05-15 17:26 | ECG_ITS ---
APPROVED REPORT Exam: Resting ECG HR:62 bpm ECG Measurements Heart Rate 62 AXES NJ 203 P 57 QRSd 94 QRS 27 QT 419 T 67 QTc 424 Conclusion Sinus rhythm Electronically signed by : DARIO MALLOY, 05/15/2024 23:08:54
--- NOTE | 2024-05-15 17:28 | CT_ITS ---
PROCEDURE INFORMATION: Exam: CT Head Without Contrast Exam date and time: 05/15/2024 5:42 PM Age: 68 years old Clinical indication: Injury or trauma; Fall; Additional info: Fall, head trauma TECHNIQUE: Imaging protocol: Computed tomography of the head without contrast. Radiation optimization: All CT scans at this facility use at least one of these dose optimization techniques: automated exposure control; mA and/or kV adjustment per patient size (includes targeted exams where dose is matched to clinical indication); or iterative reconstruction. COMPARISON: CT CERVICAL SPINE WO CON 01/06/2022 12:24 AM FINDINGS: Limitations: Patient motion. Brain: Mild volume loss. Mild decreased attenuation of the supratentorial white matter is likely secondary to chronic microvascular ischemia. Definite acute intracranial hemorrhage. No midline shift or significant intracranial mass effect. Cerebral ventricles: No hydrocephalus. Paranasal sinuses: Visualized sinuses are unremarkable. No fluid levels. Mastoid air cells: Mild partial opacification of the left mastoid air cells. Bones: No definite acute calvarial fracture. Soft tissues: Unremarkable. IMPRESSION: No acute intracranial abnormality.
--- NOTE | 2024-05-15 17:28 | CT_ITS ---
PROCEDURE INFORMATION: Exam: CTA Chest With Contrast Exam date and time: 05/15/2024 5:50 PM Age: 68 years old Clinical indication: Injury or trauma; Fall; Additional info: Flat on face off of trampoline TECHNIQUE: Imaging protocol: Computed tomographic angiography of the chest with contrast. Exam focused on the arteries. 3D rendering (Not supervised by radiologist): MIP and/or 3D reconstructed images were created by the technologist. Radiation optimization: All CT scans at this facility use at least one of these dose optimization techniques: automated exposure control; mA and/or kV adjustment per patient size (includes targeted exams where dose is matched to clinical indication); or iterative reconstruction. Contrast material: ISOVUE; Contrast volume: 80 ml; Contrast route: INTRAVENOUS (IV); COMPARISON: CR XR CHEST PORTABLE 05/15/2024 5:46 PM FINDINGS: Tubes, catheters and devices: There is a left subclavian central line with distal tip at the atrial caval junction. Pulmonary arteries: There is no evidence of filling defects within the pulmonary arterial circulation to suggest pulmonary embolism. Aorta: There is no evidence of an aortic aneurysm. There is no evidence of aortic dissection, leak, rupture, or other acute vascular pathology. There is no evidence of an aortic aneurysm. Thyroid: The thyroid gland is normal. Lungs: No consolidation. No masses. Pleural spaces: There are no pleural effusions. There is no evidence of pneumothorax. Heart: The heart is not enlarged. There is a trace amount of pericardial fluid. Lymph nodes: There is no evidence of pathologic adenopathy. Intraperitoneal space: Findings within the upper abdomen are described in the associated CT of the abdomen and pelvis report from the same date and time. Please reference that report for additional information Bones/joints: The thoracic spine demonstrates mild degenerative changes at multiple levels. Soft tissues: No significant soft tissue edema. No focal soft tissue hematomas. IMPRESSION: No acute posttraumatic abnormality.
--- NOTE | 2024-05-15 17:28 | CT_ITS ---
PROCEDURE INFORMATION: Exam: CT Cervical Spine Without Contrast Exam date and time: 05/15/2024 5:44 PM Age: 68 years old Clinical indication: Injury or trauma; Fall; Other: Pain; Additional info: Flat on face off of trampoline. Neck and t spine TECHNIQUE: Imaging protocol: Computed tomography of the cervical spine without contrast. Radiation optimization: All CT scans at this facility use at least one of these dose optimization techniques: automated exposure control; mA and/or kV adjustment per patient size (includes targeted exams where dose is matched to clinical indication); or iterative reconstruction. COMPARISON: CT CERVICAL SPINE WO CON 01/06/2022 12:24 AM FINDINGS: Bones: Mild dextroconvex curvature. Incomplete segmentation at C3-C4. Vertebral body height and AP alignment is preserved. Mild prevertebral osteophytosis. Mild degenerative change about the dens. No acute cervical spine fracture. No definite high-grade central canal stenosis within limitations of technique. Lungs: Lung apices are normal. Pleural spaces: No visible pneumothorax. Soft tissues: Unremarkable. IMPRESSION: No acute cervical spine fracture.
--- NOTE | 2024-05-15 17:28 | CT_ITS ---
PROCEDURE INFORMATION: Exam: CT Lumbar Spine Without Contrast Exam date and time: 05/15/2024 5:48 PM Age: 68 years old Clinical indication: Injury or trauma; Fall; Additional info: Flat on face off of trampoline. Neck and t spine TECHNIQUE: Imaging protocol: Computed tomography of the lumbar spine without contrast. Radiation optimization: All CT scans at this facility use at least one of these dose optimization techniques: automated exposure control; mA and/or kV adjustment per patient size (includes targeted exams where dose is matched to clinical indication); or iterative reconstruction. COMPARISON: CT LUMBAR SPINE WO CON 08/15/2021 9:24 PM FINDINGS: Bones/joints: Vertebral body heights are preserved without compression fractures. Alignment is intact. Minor degenerative changes involve the facet joints at the L5-S1 level. Minor marginal osteophytes are also present. No focal disc protrusion. No significant central canal or neural foraminal stenosis. There are mild degenerative changes of the sacroiliac joints. There is no evidence of acute fracture. Soft tissues: No focal soft tissue hematomas. No significant soft tissue edema. Other findings: Prevertebral soft tissues are within range of normal. IMPRESSION: No acute posttraumatic abnormality.
--- NOTE | 2024-05-15 17:28 | CT_ITS ---
PROCEDURE INFORMATION: Exam: CT Thoracic Spine Without Contrast Exam date and time: 05/15/2024 5:46 PM Age: 68 years old Clinical indication: Injury or trauma; Fall; Additional info: Flat on face off of trampoline. Neck and t spine TECHNIQUE: Imaging protocol: Computed tomography of the thoracic spine without contrast. Radiation optimization: All CT scans at this facility use at least one of these dose optimization techniques: automated exposure control; no change and/or kV adjustment per patient size (includes targeted exams where dose is matched to clinical indication); or iterative reconstruction. COMPARISON: CT CERVICAL SPINE WO CON 05/15/2024 5:44 PM FINDINGS: Bones/joints: The thoracic spine demonstrates mild degenerative changes at multiple levels. Vertebral body heights appear preserved without compression fractures. No focal disc protrusion. No significant central canal or neural foraminal stenosis. There is a small focus of increased density involving the inferior endplate of T11 suggesting Schmorl's node degenerative changes. Soft tissues: No focal hematomas. No significant soft tissue edema. Other findings: The prevertebral soft tissues are within range of normal. IMPRESSION: No acute posttraumatic abnormality.
--- NOTE | 2024-05-15 17:28 | CT_ITS ---
PROCEDURE INFORMATION: Exam: CTA Abdomen and Pelvis With Contrast Exam date and time: 05/15/2024 5:50 PM Age: 68 years old Clinical indication: Injury or trauma; Fall; Additional info: Flat on face off of trampoline. Chest and abd pain TECHNIQUE: Imaging protocol: Computed tomographic angiography of the abdomen and pelvis with contrast. Exam focused on the arteries. 3D rendering (Not supervised by radiologist): MIP and/or 3D reconstructed images were created by the technologist. Radiation optimization: All CT scans at this facility use at least one of these dose optimization techniques: automated exposure control; mA and/or kV adjustment per patient size (includes targeted exams where dose is matched to clinical indication); or iterative reconstruction. Contrast material: ISOVUE; Contrast volume: 80 ml; Contrast route: INTRAVENOUS (IV); COMPARISON: CT ANGIO CHEST 05/15/2024 5:50 PM FINDINGS: Diaphragm: A small hiatal hernia is present. Aorta: There is no evidence of an aortic aneurysm. Celiac trunk and mesenteric arteries: No occlusion or significant stenosis. Renal arteries: No occlusion or significant stenosis. Right iliac arteries: No occlusion or significant stenosis. Left iliac arteries: No occlusion or significant stenosis. Liver: The liver is normal. Gallbladder and biliary ducts: There has been a cholecystectomy. There is a mild, expected degree of common bile duct dilation. Pancreas: The pancreas is normal. Spleen: There is a small punctate calcification suggesting prior granulomatous disease. The spleen is otherwise normal. Adrenal glands: The adrenal glands are normal. Kidneys and ureters: There is a focal subcentimeter left renal hypodensity that cannot be further characterized on the current examination. Statistically, this is likely a cyst. The kidneys are otherwise normal. Stomach and bowel: The stomach is normal. The duodenum is unremarkable. Lack of gastrointestinal contrast limits evaluation of bowel. The colon is normal. Unopacified loops of small bowel within range of normal. Appendix: No evidence of appendicitis. Intraperitoneal space: There is no evidence of free intraperitoneal or pelvic fluid. No free air. Lymph nodes: There is no evidence of pathologic adenopathy. Urinary bladder: The bladder is decompressed. Reproductive: The uterus is either atrophic or absent. No adnexal masses. No adnexal cysts or masses are identified. Bones/joints: There is no evidence of acute fracture. There is no evidence of acute fracture. Soft tissues: There is a tiny fat-containing umbilical hernia. There is a minor fat containing nonobstructing left inguinal hernia. No significant soft tissue edema. No focal soft tissue hematomas. Other findings: Findings within the lower chest are described in the associated CT of the chest report from the same date and time. Please reference that report for additional information. IMPRESSION: 1. No acute posttraumatic abnormality. 2. Minor fat containing left inguinal hernia. 3. Small hiatal hernia.
--- NOTE | 2024-05-15 17:29 | XR_ITS ---
PROCEDURE INFORMATION: Exam: XR Chest Exam date and time: 05/15/2024 5:46 PM Age: 68 years old Clinical indication: Injury or trauma; Fall; Other: Pain TECHNIQUE: Imaging protocol: Radiologic exam of the chest. Views: 1 view. COMPARISON: CR XR CHEST PORTABLE 05/15/2024 5:46 PM FINDINGS: Tubes, catheters and devices: A left subclavian central line is present, distal tip unchanged, overlying the approximate location of the mid SVC. Lungs: Lung volumes are mildly diminished. The lungs appear clear. No focal areas of consolidation. Pleural spaces: No pleural effusions. Negative for pneumothorax. Heart/Mediastinum: Cardiac silhouette and pulmonary vasculature are within range of normal. There is no superior mediastinal widening which may be on the basis of patient positioning. Correlate clinically. Diaphragm: There is mild elevation of the right hemidiaphragm. Bones/joints: There is no evidence of acute fracture. IMPRESSION: 1. Lung volumes mildly diminished. 2. Mild mediastinal widening may be on the basis of patient positioning. This is more optimally evaluated on the associated CT of the chest from the same date to follow.
--- NOTE | 2024-05-15 17:29 | XR_ITS ---
PROCEDURE INFORMATION: Exam: XR Pelvis Exam date and time: 05/15/2024 5:46 PM Age: 68 years old Clinical indication: Injury or trauma; Fall; Other: Pain TECHNIQUE: Imaging protocol: Radiologic exam of the pelvis. Views: 1 or 2 view. COMPARISON: CR XR PELVIS 1-2V 05/15/2024 5:46 PM FINDINGS: Bones/joints: There is no evidence of acute fracture or dislocation. Minor degenerative changes involve the inferior sacroiliac joints. Soft tissues: No significant soft tissue edema. No subcutaneous emphysema or radiopaque foreign bodies. There are a few benign phleboliths in the pelvis. Surgical clips in the mid pelvis present. IMPRESSION: No acute posttraumatic osseous injury.
--- NOTE | 2024-05-15 17:31 | ED_ITS ---
Discharge Plan Disposition Patient Disposition: Home, Self-Care Prescriptions Prescriptions: New prednisone 20 mg tablet 40 mg PO DAILY 5 Days Qty: 10 0RF methocarbamol 750 mg tablet 1,500 mg PO TID 5 Days Qty: 30 0RF lidocaine 5 % adhesive patch,medicated 1 patch topical DAILY Qty: 30 0RF Rx Instructions: leave on most painful area for up to 12 hrs No Action buprenorphine-naloxone 8-2 mg tablet, sublingual 2 tab sublingual ONCE Patient Comments: DISSOLVE 2 TABLETS UNDER THE TONGUE ONCE DAILY DIRECTED alendronate 70 mg tablet 70 mg PO Patient Comments: TAKE ONE TABLET BY MOUTH ONCE a WEEK lisinopril 20 mg tablet 20 mg PO Patient Comments: TAKE ONE TABLET BY MOUTH FOR HIGH BLOOD PRESSURE aspirin 81 mg tablet,delayed release (DR/EC) 81 mg PO Patient Comments: TAKE ONE TABLET BY MOUTH EVERY DAY sumatriptan succinate 50 mg tablet See Rx Instructions PO .COMPLEX PRN (Reason: migraine headache) Qty: 30 3RF Rx Instructions: take 1 tab at onset of headache; if no relief may repeat 1 tab after at least 2 hrs; max = 4 tabs/24 hr orally PRN; propranolol 10 mg tablet 10 mg PO BID Qty: 60 2RF fluticasone propionate [Allergy Relief (fluticasone)] 50 mcg/actuation spray,suspension 1 spray intranasal BID Qty: 5 2RF Rx Instructions: administer into each nostril azelastine 137 mcg (0.1 %) spray,non-aerosol 1 spray intranasal BID Qty: 30 2RF Rx Instructions: administer into each nostril levocetirizine [Allergy Relief (levocetirizin)] 5 mg tablet 5 mg PO DAILY Qty: 30 2RF sumatriptan succinate 50 mg tablet See Rx Instructions PO .COMPLEX PRN (Reason: migraine headache) Qty: 14 0RF Rx Instructions: take 1 tab at onset of headache; if no relief may repeat 1 tab after at least 2 hrs; max = 4 tabs/24 hr orally PRN; buspirone 15 mg tablet See Rx Instructions .ROUTE .COMPLEX Qty: 90 2RF Dose Instruction: TAKE ONE TABLET BY MOUTH THREE TIMES DAILY MAY CAUSE DROWSINESS Rx Instructions: TAKE ONE TABLET BY MOUTH THREE TIMES DAILY MAY CAUSE DROWSINESS fluoxetine 40 mg capsule 40 mg PO DAILY Patient Comments: TAKE TWO CAPSULES BY MOUTH EVERY DAY Referrals Follow up/Referrals: Librado Gilmore DO [Primary Care Provider] - See instructions Activity Restrictions/Add. Instructions Additional Instructions/Restrictions: Call your family doctor to establish care for this visit to the emergency department and schedule follow-up within 48 hours to ensure improvement. If you have any worsening of your condition or any other concerning signs or symptoms, return to the emergency department or your primary care doctor for further evaluation. Prednisone each morning for the next 5 days. Lidocaine patches each day. Robaxin can cause you to feel drowsy. Do not drive, operate heavy machinery, or engage in any activity that may make you tired, fall asleep, and because harm to yourself or others while taking this medication. Clinical Impressions Clinical Impression: Acute cervical myofascial strain, Fall, Traumatic chest pain Print Language Print Language: Maltese Discharge ED Provider: Rajendra Mann General Adult HPI General Chief complaint: Fall Stated complaint: Fall Time Seen by Provider: 05/15/24 17:30 History of Present Illness HPI narrative: Please note that above description of symptoms, in this electronic medical record under categorization of recalled from ER triage doctor by RN are reflective of an initial nursing assessment, however, is not reflective of my full history and physical exam that was personally taken and clarified. Consequentially, this preceding description of symptoms, which may include the patient's categorized chief complaint in the EMR, do not reflect my personal clinical impression, and the ultimate description of history of present illness and patient stated complaints should be deferred to this section of the note. Unless stated otherwise or congruent with this section of the note, additional signs, symptoms, or incongruence should be interpreted as inaccurate with my clinical impression. Related Data Home Medications ?Medication ?Instructions ?Recorded ?Confirmed fluoxetine 40 mg capsule 40 mg PO DAILY 03/15/24 04/29/24 buprenorphine 8 mg-naloxone 2 mg 2 tab sublingual ONCE 04/01/24 04/29/24 sublingual tablet alendronate 70 mg tablet 70 mg PO 04/29/24 04/29/24 aspirin 81 mg tablet,delayed 81 mg PO 04/29/24 04/29/24 release lisinopril 20 mg tablet 20 mg PO 04/29/24 04/29/24 Previous Rx's ?Medication ?Instructions ?Recorded sumatriptan succinate 50 mg tablet See Rx Instructions PO .COMPLEX 03/25/24 PRN migraine headache #14 tabs azelastine 137 mcg (0.1 %) nasal 1 spray intranasal BID #30 mL 04/09/24 spray fluticasone propionate 50 1 spray intranasal BID #5 mL 04/09/24 mcg/actuation nasal spray,suspension (Allergy Relief (fluticasone)) levocetirizine 5 mg tablet 5 mg PO DAILY #30 tabs 04/09/24 (Allergy Relief (levocetirizine)) propranolol 10 mg tablet 10 mg PO BID #60 tabs 04/29/24 sumatriptan succinate 50 mg tablet See Rx Instructions PO .COMPLEX 04/29/24 PRN migraine headache #30 tabs buspirone 15 mg tablet See Rx Instructions .Route 05/15/24 .COMPLEX #90 tabs lidocaine 5 % topical patch 1 patch topical DAILY #30 ea 05/15/24 methocarbamol 750 mg tablet 1,500 mg (2 x 750 mg) PO TID 5 05/15/24 days #30 tabs prednisone 20 mg tablet 40 mg (2 x 20 mg) PO DAILY 5 days 05/15/24 #10 tabs Allergies Allergy/AdvReac Type Severity Reaction Status Date / Time cephalexin [From Keflex] Allergy Severe Difficulty Verified 04/29/24 13:10 Breathing prochlorperazine Allergy Severe Swelling Verified 04/29/24 13:10 [PROCHLORPERAZINE] of Lip/Tongue/Throat codeine [CODEINE] Allergy Unknown VOMITING / Verified 04/29/24 13:10 NAUSEA prednisone [PREDNISONE] Allergy Unknown BP ISSUES Verified 04/29/24 13:10 promethazine [From PHENERGAN] Allergy Unknown Unknown Verified 04/29/24 13:10 allergy reaction metoclopramide [From Reglan] Allergy Nausea Verified 04/29/24 13:10 hydroxyzine [From Vistaril] AdvReac Verified 04/29/24 13:10 [facility] Disclaimer: The information contained in this section may have been updated after the patient was seen, as this information can be updated by other users. Medical History Dizziness Sinus bradycardia Dyspnea Chest pain Insomnia Depression Anxiety Cholecystectomy planned Urinary tract infection Pneumonia Osteoporosis Allergies Edema History of anemia History of constipation Exposure to COVID-19 virus NSAIDs adverse reaction Knee effusion, right Sphincter of Oddi dysfunction Abdominal adhesions Hx of Crohn's disease This apparently was not the issue for why Angelica was admitted to the hospital recently. She was placed on sucralfate. There was some mention of ulcers but I do not see that in the discharge summary. Positive D dimer HTN (hypertension) Bilateral lower extremity edema Surgical History H/O oral surgery History of appendectomy H/O total hysterectomy History of esophagogastroduodenoscopy (EGD) History of arthroscopy of right knee Status post knee surgery Status post right knee arthroscopy with partial medial meniscectomy date of surgery May 16, 2022 History of intestinal surgery Family History Other Cancer Heart attack Social History Smoking Status: Never smoker second hand exposure: No alcohol intake: never substance use type: denies use current occupational status: disabled Travel in the last 8 weeks: None household members: none housing: apartment number of children: 2 current occupational exposures/hazards: No caffeine: Yes Other Medical History Have you received the Flu Vaccine for this season: No Have you received the Pneumonia Vaccine: No ROS Obtained: Yes All systems reviewed & no additional complaints except as documented Physical Exam General General appearance: alert Head Head exam: normocephalic and other (Superficial abrasion to left mid face) Eye Eye exam: Present normal appearance, PERRL and EOMI Neck Neck exam: Present trachea midline and other (in cervical collar) Chest Chest inspection: Present normal inspection and tenderness (Midline sternum, no evidence of outward abnormality or bruising) Respiratory Respiratory exam: Present normal lung sounds bilaterally; Absent respiratory distress, wheezes, stridor, accessory muscle use or prolonged expiratory phase Cardiovascular Cardiovascular exam: Present regular rate, normal rhythm and other (Pulses equal symmetric in upper and lower extremities) Abdominal Exam Abdominal exam: Present soft; Absent distention, tenderness, guarding, rebound, rigidity or pulsatile mass Extremities Exam Extremities exam: Absent edema Neurological Exam Neurological exam: Present alert, oriented X3 and CN II-XII intact; Absent motor sensory deficit Skin Skin exam: Present warm and dry; Absent diaphoresis or erythema Medical Decision Making Medical Records Medical records reviewed: Yes I reviewed the patient's medical records. Screening: Per USPSTF and CDC recommendations, given the prevalence of disease in our region, it is our hospital?s policy to screen for HIV and viral Hepatitis for all patients aged 18 and over and those with ongoing risk factors. Grant Inquiry Pt receiving controlled substance: No Grant was queried for this patient: No Vital Signs: 05/15/24 17:19 05/15/24 18:00 05/15/24 18:30 Temperature 98.3 F Temperature Source Oral Pulse Rate 53 L 53 L Pulse Rate [Left Radial] 67 Respiratory Rate 15 12 13 Blood Pressure 168/86 H 163/80 H Blood Pressure [Right Arm] 145/80 H Blood Pressure Mean [Right Arm] 101 02 Sat by Pulse Oximetry 97 99 96 Oxygen Delivery Method Room Air Room Air Room Air Lab Data Lab Results 05/15/24 17:30: WBC 6.9, RBC 3.84 L, Hgb 10.7 L, Hct 33.6 L, MCV 87.5, MCH 27.9, MCHC 31.9, RDW 15.8, Plt Count 299, MPV 9.5, Neut % (Auto) 48.4, Lymph % (Auto) 40.1, [place] % (Auto) 7.0, Eos % (Auto) 3.6, Baso % (Auto) 0.8, Neut # (Auto) 3.4, Lymph # (Auto) 2.8, [place] # (Auto) 0.5, Eos # (Auto) 0.3, Baso # (Auto) 0.1, PT 10.4, INR 0.92, APTT 28.4, Sodium 139, Potassium 3.9, Chloride 106, Carbon Dioxide 24, Anion Gap 12.9, BUN 22 H, Creatinine 1.10 H, Estimated Creat Clear 57, Estimated GFR 49 L, Est GFR ( Amer) 60, Glucose 102 H, Calcium 9.5, Total Bilirubin 0.5, AST 44 H, ALT 24, Alkaline Phosphatase 55, Total Protein 7.2, Albumin 4.3, Globulin 2.9, Albumin/Globulin Ratio 1.5, Lipase 99, Plasma/Serum Alcohol < 10 05/15/24 18:00: Lactate 0.6 L 05/15/24 17:30 05/15/24 17:30 Orders (Tests/Meds): ED MEDICATIONS Generic Name Dose Route Start Last Admin Trade Name Freq PRN Reason Stop Dose Admin Heparin Sodium (Porcine) 300 unit 05/15/24 19:03 Heparin Lock Flush 500 Units/5ml Syr IV 05/15/24 19:04 ONCE ONE Discontinued Medications Generic Name Dose Route Start Last Admin Trade Name Dylon PRN Reason Stop Dose Admin Acetaminophen 1,000 mg 05/15/24 17:30 05/15/24 17:50 Acetaminophen 1,000mg/100ml Vial IV 05/15/24 17:31 1,000 mg ONCE ONE Administration Sodium Chloride 1,000 mls @ 999 mls/hr 05/15/24 17:27 05/15/24 17:50 Sod Chlor 0.9% 1000ml Bag IV 05/15/24 18:27 999 mls/hr .Q1H1M ONE Administration Iopamidol 80 ml 05/15/24 17:48 05/15/24 17:50 Iopamidol-370 (76%);100ml Bottle IV 05/15/24 17:49 80 ml ONCE ONE Administration Ketorolac Tromethamine 15 mg 05/15/24 17:27 05/15/24 17:49 Ketorolac 30mg/Ml Vial IV 05/15/24 17:28 15 mg ONCE ONE Administration Lidocaine 1 each 05/15/24 18:55 05/15/24 19:00 Lidocaine 5% Transdermal Patch TP 05/15/24 18:56 1 each ONCE ONE Administration Methocarbamol 1,500 mg 05/15/24 18:55 05/15/24 19:00 Methocarbamol 500mg Tablet PO 05/15/24 18:56 1,500 mg ONCE ONE Administration Prednisone 40 mg 05/15/24 18:55 05/15/24 19:04 Prednisone 20mg Tab PO 05/15/24 18:56 Not Given ONCE ONE Sodium Chloride 50 ml 05/15/24 17:48 05/15/24 17:50 0.9 % Sodium Chloride 50 Ml Vial IV 05/15/24 17:49 50 ml ONCE ONE Administration Sodium Chloride 10 ml 05/15/24 17:48 05/15/24 17:50 Sodium Chloride 0.9% 10ml Syr (Rad Only) IV 05/15/24 17:49 10 ml ONCE ONE Administration ORDERS Category Date Time Status CT angio abdomen pelvis Stat Cat Scan 05/15/24 17:[address] cervical spine wo con Stat Cat Scan 05/15/24 17:[address] head/brain wo con Stat Cat Scan 05/15/24 17:[address] lumbar spine wo con Stat Cat Scan 05/15/24 17:[address] thoracic spine wo con Stat Cat Scan 05/15/24 17:28 Completed CTA Chest [CT angio chest - dissection] Stat Cat Scan 05/15/24 17:28 Completed POCUS Point of Care (ER Only) Stat Exams 05/15/24 17:29 Ordered Pelvis XR 1-2 views [XR pelvis 1-2V] Stat Exams 05/15/24 17:29 Completed XR chest portable Stat Exams 05/15/24 17:29 Completed Complete Blood Count Auto Diff Stat Lab 05/15/24 17:30 Completed Comprehensive Metabolic Panel Stat Lab 05/15/24 17:30 Completed Ethanol [Ethyl Alcohol] Stat Lab 05/15/24 17:30 Completed Lactic Acid Stat Lab 05/15/24 18:00 Completed Lipase Stat Lab 05/15/24 17:30 Completed PT INR [Prothrombin Time INR] Stat Lab 05/15/24 17:30 Completed PTT [Activated Partial Thrombo Time] Stat Lab 05/15/24 17:30 Completed Medical Decision Narrative: 68-year-old female no relevant medical history presenting as trauma. Patient was jumping on a trampoline, jumped incorrectly, flew off, landed with arms extended, face first on the dirt. Did not lose consciousness. Not on anticoagulation. States that she is having neck pain, face pain, midsternal chest pain that is 10 out of 10. No shortness of breath, nausea or vomiting, vision changes, numbness weakness tingling in her arms or legs, or any other concerns. History was obtained via conversation with patient and EMS. On arrival, patient hemodynamically stable, alert, oriented x4, appropriate, GCS 15, moving all extremities spontaneously, pupils equal and reactive to light. Full physical exam performed and significant for well-appearing, but appears to be in pain. Superficial abrasions on her face, no evidence of nasal septal hematoma. Pupils equal and reactive, EOMs intact. No evidence of skull fracture. Patient in cervical collar complaining of midline cervical spine pain. Chest is tender to palpation anteriorly right in the midline, lungs are clear to auscultation bilaterally, trachea is midline, cardiac exam normal. No evidence of abdominal tenderness, flank tenderness. Patient's upper and lower extremities are atraumatic and nonpainful. Pelvis is stable to compression. Pulses equal and symmetric in upper and lower extremities. Differential includes intracranial bleed, critical cervical spine injury, blunt aortic injury, pneumothorax, pericardial effusion, among others. Patient placed on continuous cardiac monitoring and continuous pulse ox with initial blood pressure 145 over, heart rate 67, saturation 97% on room air. Independent interpretation of EKG shows sinus rhythm 62 beats minute with no ST or T wave changes concern for acute ischemia. TN 203, QRS 94, QTc 424. Patient was given Toradol and fluids for symptomatic management and correction of underlying abnormalities. Workup independently interpreted and significant for nonactionable hematologic workup.. On independent interpretation of imaging, no intracranial hemorrhage, patient does have incidental ventricular variant cavum septum and cavum vergae. No cervical, thoracic, lumbar spine injury. No intrathoracic or intra-abdominal injury see radiology read for full review of final results. On reevaluation, c-collar was cleared. Patient was given lidocaine patch and Robaxin. Because patient at baseline without signs or symptoms of clinical decompensation, deemed appropriate for discharge. Results were relayed to patient who voiced understanding and were agreeable to outpatient management and follow up. I discussed my clinical impression with patient and answered all questions. At this time, the evidence for any other entities in the differential is insufficient to warrant any further testing or ED observation. This was explained as well. Advisory was given that persistent or worsening symptoms require further evaluation. I confirmed the understanding of this discussion. [employer] disclaimer Much of this encounter note is an electronic marine reporter spoken language to printed text. Electronic marine reporter of the spoken language may permit errors. Although I have reviewed the note, some errors may still exist. Critical Care Critical Care Time Critical Care Time: No
[2024-05-15 17:35] VITALS: BMI 27.9
--- NOTE | 2024-05-15 17:35 | PC.NURSE ---
pt to scan via stretcher
[2024-05-15 17:46] LABS: Basophils # 0.1 K/mm3 (0-0.2); Basophils % 0.8 % (0.1-2.0); Eosinophils # 0.3 K/mm3 (0.0-0.4); Eosinophils % 3.6 % (0.1-12.0); Hematocrit 33.6 % (37.0-47.0); Hemoglobin 10.7 g/dL (12.2-16.2); Lymphocytes # 2.8 K/mm3 (0.7-4.5); Lymphocytes % 40.1 % (10-50); Mean Corpuscular HGB Conc 31.9 g/dL (31.8-35.4); Mean Corpuscular Hemoglobin 27.9 pg (27.0-31.2); Mean Corpuscular Volume 87.5 fl (81-99); Mean Platelet Volume 9.5 fl (7.4-10.4); Monocytes # 0.5 K/mm3 (0.1-1.0); Neutrophils # 3.4 K/mm3 (1.8-7.8); Neutrophils % 48.4 % (37.0-80.0); Platelet Count 299 K/mm3 (142-424); Red Blood Count 3.84 M/mm3 (4.20-5.40); Red Cell Distribution Width 15.8 % (11.5-17.5); White Blood Count 6.9 K/mm3 (4.8-10.8)
[2024-05-15] MEDS: KETOROLAC 30MG/ML VIAL 15 MG IV (17:49)
[2024-05-15] MEDS: 0.9 % SODIUM CHLORIDE 1000ML 1,000 ML 999 ML IV (17:50)
[2024-05-15] MEDS: 0.9 % SODIUM CHLORIDE 50 ML VIAL IV (17:50)
[2024-05-15] MEDS: SODIUM CHLORIDE 0.9% 10ML SYR (RAD ONLY) 10 ML IV (17:50)
[2024-05-15] MEDS: IOPAMIDOL-370 (76%);100ML BOTTLE 80 ML IV (17:50)
[2024-05-15] MEDS: ACETAMINOPHEN 1,000MG/100ML VIAL 1000 MG IV (17:50)
[2024-05-15 18:00] VITALS: BP 168/86; PULSE 53; RESP 12; O2SAT 99
[2024-05-15 18:13] LABS: Albumin Level 4.3 g/dl (3.5-5.0); Chloride 106 mmol/L (98-107); Potassium 3.9 mmoL/L (3.5-5.1); Sodium 139 mmol/L (136-145)
[2024-05-15 18:16] LABS: Alanine Aminotransferase 24 U/L (12-78); Albumin/Globulin Ratio 1.5 (1.1-1.8); Alkaline Phosphatase 55 U/L (38-126); Anion Gap 12.9 mEq/L (5-15); Aspartate Amino Transferase 44 U/L (14-36); Bilirubin,Total 0.5 mg/dl (0.2-1.3); Blood Urea Nitrogen 22 mg/dl (7-17); Carbon Dioxide 24 mmol/L (22.0-30.0); Creatinine Clearance Estimated 57 mL/min (50-200); Estimated Glomerular Filt Rate 49 ml/min (>60); GFR (African American) 60 ML/MIN (>60); Globulin 2.9 g/dL (1.3-3.2); Total Protein,Serum 7.2 g/dl (6.3-8.2)
[2024-05-15 18:17] LABS: Calcium 9.5 mg/dl (8.4-10.2); Glucose 102 mg/dl (74-100)
[2024-05-15 18:19] LABS: Activated Partial Thrombo Time 28.4 seconds (22.8-30.6); Ethyl Alcohol < 10 mg/dl (0-10)
[2024-05-15 18:21] LABS: Lactic Acid 0.6 mmol/L (0.7-2.1)
[2024-05-15 18:30] VITALS: BP 163/80; PULSE 53; RESP 13; O2SAT 96
[2024-05-15 18:33] LABS: INR 0.92 (0.9-1.1); Prothrombin Time 10.4 seconds (10.1-12.5)
[2024-05-15 19:00] LABS: Lipase 99 U/L (23-300)
[2024-05-15] MEDS: METHOCARBAMOL 500MG TABLET 1500 MG PO (19:00)
[2024-05-15] MEDS: LIDOCAINE 5% TRANSDERMAL PATCH 1 EACH TP (19:00)
[2024-05-15 19:11] VITALS: BP 163/80; PULSE 53; RESP 13; TEMP 36.6
== END 2024-05-15 19:12 | disposition home or self-care (01) ==
PROVIDERS: Emergency Provider Emergency Medicine; PCP Internal Medicine
DX: R07.9 Chest pain, unspecified (principal); M54.2 Cervicalgia; S16.1XXA Strain of muscle, fascia and tendon at neck level, initial encounter; W17.89XA Other fall from one level to another, initial encounter; Z91.81 History of falling; Y93.89 Activity, other specified; Y92.9 Unspecified place or not applicable
CPT/HCPCS: 70450; 71045; 71275; 72125; 72128; 72131; 72170; 74174; 80053; 80320; 83605; 83690; 85025; 85610; 85730; 93005; 96361; 96374; 96375; 99285; G0480; J0131; J1642; J1885; J7030; Q9967

== ENCOUNTER 2024-05-28 08:36 | Emergency (ER) | payer MEDICARE, OTHER, SELFPAY ==
[2024-05-28 08:45] VITALS: BP 148/83; PULSE 63; RESP 23; TEMP 36.7; O2SAT 97; BMI 28.3
--- NOTE | 2024-05-28 09:08 | EXP.UTC ---
Discharge Plan Disposition Patient Disposition: Home, Self-Care Condition: Good Prescriptions Prescriptions: New methocarbamol 750 mg tablet 750 mg PO TID PRN (Reason: muscle spasm) Qty: 30 0RF No Action fluoxetine 40 mg capsule 40 mg PO DAILY Patient Comments: TAKE TWO CAPSULES BY MOUTH EVERY DAY lisinopril 20 mg tablet 20 mg PO DAILY Patient Comments: TAKE ONE TABLET BY MOUTH FOR HIGH BLOOD PRESSURE sumatriptan succinate 50 mg tablet 50 mg PO DAILY Patient Comments: TAKE 1 TABLET BY MOUTH AT ONSET OF MIGRAINE. MAY REPEAT AFTER AT least 2 HOURS IF NEEDED max daily DOSE is 4 TABLETS propranolol 10 mg tablet 10 mg PO DAILY Patient Comments: TAKE ONE TABLET BY MOUTH TWICE DAILY buspirone 15 mg tablet 15 mg PO DAILY Patient Comments: TAKE ONE TABLET BY MOUTH THREE TIMES DAILY MAY CAUSE DROWSINESS Referrals Follow up/Referrals: Librado Gilmore DO [Primary Care Provider] - See instructions Activity Restrictions/Add. Instructions Additional Instructions/Restrictions: Go home and rest. It would be best if you rested for the next few days. No heavy lifting & No twisting for the next few days. The muscle relaxer (methocarbamol) will make you drowsy, so don't drive or operate heavy machinery after taking it. Contine the naproxen that you have been taking. Follow up with your regular doctor. GO TO THE ER FOR ANY WORSENING SYMPTOMS OR CONCERN, ESPECIALLY BOWEL OR BLADDER ISSUES, SADDLE AREA NUMBNESS, FEVER, ETC Clinical Impressions Clinical Impression: Rib pain on right side Instructions Patient Instructions: DI for Rib Contusion, Methocarbamol, Ketorolac Injection Print Language Print Language: Maltese Discharge ED Provider: Papo Bunn [facility] General Stated complaint: soa, sore Mode of Arrival: Ambulatory Source of Information: Patient Limitations: No Limitations Time Seen by Provider: 05/28/24 09:08 Description of Symptoms (Recalled from Triage Doc. by RN): PATIENT STATES SHE FELL OFF OF A TRAMPOLINE APPROX 3 WEEKS AGO AND IS STILL HAVING PAIN AND PROBLEMS CATCHING HER BREATH HEENT Symptoms (Recalled from RN notes): No Resp Symptoms (Recalled from RN notes): Yes Skin Symptoms (Recalled from RN notes): No MS Symptoms (Recalled from RN notes): Yes Functional Status (Recalled from RN notes): WNL History of Present Illness Provider Complaint: She states that around 2 weeks ago she fell off of a trampoline and came down on her right ribs. She came to the er that day and was checked out. She states that she was getting better until she lifted her heavy dog 2 days ago. This caused something to pull in her right ribs and she has had right rib pain with moving and coughing since then. She came to the er that day too. she came back today to get a refill on her methocarbamol. Related Data Home Medications ?Medication ?Instructions ?Recorded ?Confirmed buspirone 15 mg tablet 15 mg PO DAILY 05/28/24 05/28/24 fluoxetine 40 mg capsule 40 mg PO DAILY 05/28/24 05/28/24 lisinopril 20 mg tablet 20 mg PO DAILY 05/28/24 05/28/24 propranolol 10 mg tablet 10 mg PO DAILY 05/28/24 05/28/24 sumatriptan succinate 50 mg tablet 50 mg PO DAILY 05/28/24 05/28/24 Previous Rx's ?Medication ?Instructions ?Recorded methocarbamol 750 mg tablet 750 mg PO TID PRN muscle spasm #30 05/28/24 tabs Allergies Allergy/AdvReac Type Severity Reaction Status Date / Time cephalexin [From Keflex] Allergy Severe Difficulty Verified 05/21/24 13:27 Breathing prochlorperazine Allergy Severe Swelling Verified 05/21/24 13:27 [PROCHLORPERAZINE] of Lip/Tongue/Throat codeine [CODEINE] Allergy Unknown VOMITING / Verified 05/21/24 13:27 NAUSEA prednisone [PREDNISONE] Allergy Unknown BP ISSUES Verified 05/21/24 13:27 promethazine [From PHENERGAN] Allergy Unknown Unknown Verified 05/21/24 13:27 allergy reaction metoclopramide [From Reglan] Allergy Nausea Verified 05/21/24 13:27 hydroxyzine [From Vistaril] AdvReac Verified 05/21/24 13:27 Worker's Comp Is this a Worker's Comp case?: No [facility] Disclaimer: The information contained in this section may have been updated after the patient was seen, as this information can be updated by other users. Medical History Dizziness Sinus bradycardia Dyspnea Chest pain Insomnia Depression Anxiety Cholecystectomy planned Urinary tract infection Pneumonia Osteoporosis Allergies Edema History of anemia History of constipation Exposure to COVID-19 virus NSAIDs adverse reaction Knee effusion, right Sphincter of Oddi dysfunction Abdominal adhesions Hx of Crohn's disease This apparently was not the issue for why Angelica was admitted to the hospital recently. She was placed on sucralfate. There was some mention of ulcers but I do not see that in the discharge summary. Positive D dimer HTN (hypertension) Bilateral lower extremity edema Surgical History H/O oral surgery History of appendectomy H/O total hysterectomy History of esophagogastroduodenoscopy (EGD) History of arthroscopy of right knee Status post knee surgery Status post right knee arthroscopy with partial medial meniscectomy date of surgery May 16, 2022 History of intestinal surgery Family History Other Cancer Heart attack Social History Smoking Status: Never smoker second hand exposure: No alcohol intake: never substance use type: denies use current occupational status: disabled Travel in the last 8 weeks: None household members: none housing: apartment number of children: 2 current occupational exposures/hazards: No caffeine: Yes ROS Obtained: Yes All systems reviewed & no additional complaints except as documented Constitutional Constitutional: Denies chills and Denies fever(s) Eyes Eyes: Denies eye discharge ENT Ears, Nose, Mouth, and Throat: Denies dizziness, Denies otalgia, Denies neck pain and Denies sore throat Cardiovascular Cardiovascular: Reports as per HPI and Denies chest pain Respiratory Respiratory: Denies shortness of breath, Denies chest congestion, Denies cough, Denies stridor and Denies wheezing Gastrointestinal Gastrointestingal: Denies nausea or vomiting Musculoskeletal Musculoskeletal: Reports system reviewed and no additional complaints, except as documented, Denies arthralgias, Denies back pain and Denies neck pain Integumentary/Breasts Skin/Breast: Denies rash Neurologic Neurologic: Denies dizziness and Denies paresthesias Allergic/Immunologic Allergic/Immunologic: Denies wheezing Physical Exam General General appearance: alert and in no apparent distress Head Head exam: atraumatic, normocephalic and normal inspection Eye Eye exam: Present normal appearance, PERRL and EOMI ENT ENT exam: Present normal exam, normal oropharynx, mucous membranes moist, TM's normal bilaterally and normal external ear exam Neck Neck exam: Present normal inspection, full ROM and trachea midline; Absent meningismus or lymphadenopathy Chest Chest inspection: Present symmetric chest wall rise and tenderness Respiratory Respiratory exam: Present normal lung sounds bilaterally; Absent respiratory distress Cardiovascular Cardiovascular exam: Present regular rate and normal rhythm; Absent JVD Abdominal Exam Abdominal exam: Present soft and normal bowel sounds; Absent distention, tenderness or guarding Extremities Exam Extremities exam: Present normal inspection, full ROM and normal capillary refill; Absent calf tenderness Back Exam Back exam: Present normal inspection; Absent tenderness Neurological Exam Neurological exam: Present alert and oriented X3 Psychiatric Psychiatric exam: Present normal affect and normal mood Skin Skin exam: Present warm, dry, intact and normal color Lymphatic Lymphatic Findings: no adenopathy Medical Decision Making Medical Records Medical records reviewed: No I reviewed the patient's medical records. Screening: Per USPSTF and CDC recommendations, given the prevalence of disease in our region, it is our hospital?s policy to screen for HIV and viral Hepatitis for all patients aged 18 and over and those with ongoing risk factors. Grant Inquiry Pt receiving controlled substance: No Vital Signs: 05/28/24 08:45 Temperature 98.0 F Temperature Source Oral Pulse Rate [Left Brachial] 63 Respiratory Rate 23 Blood Pressure [Left Arm] 148/83 H Blood Pressure Mean [Left Arm] 104 Blood Pressure Source [Left Arm] Automatic Cuff Blood Pressure Position [Left Arm] Sitting 02 Sat by Pulse Oximetry 97 Oxygen Delivery Method Room Air Radiology Data #1: Image(s): Chest Image Reviewed: Yes I reviewed the patient's radiology image and Yes I have reviewed radiologist's interpretation Accession No. : [id number] Patient Name / ID : CHITRA HO / [id number] Exam Date : 05/28/2024 09:11:11 ( Final ) Study Comment : Sex / Age : F / 68Y Creator : JASE THOMAS Dictator : Medical Technologist Clinical : Manager Of Manufacturing : JASE THOMAS Approver2 : Report Date : 05/28/2024 10:49:38 My Comment : FINAL REPORT CLINICAL HISTORY: right rib pain after fall and lifting something FINDINGS: RIGHT RIBS WITH CHEST A single PA view of the chest and 2 views of the right ribs were obtained. There is a chest port with the tip in the SVC. The heart and mediastinum within normal limits. The lungs are clear. There is no pneumothorax. There is no acute displaced rib fracture. IMPRESSION: No acute cardiopulmonary process or displaced rib fracture. Reviewed, Interpreted and Dictated by Jase Thomas MD Transcribed by Nidia Turner Authenticated and [facility] Medical Decision Narrative: I sent a reflll for her methocarbamol. but the pharmacy was called and told not to fill it until it is due. Incentive spirometer was given to the patient and explained how to use.
--- NOTE | 2024-05-28 09:13 | XR_ITS ---
FINAL REPORT CLINICAL HISTORY: right rib pain after fall and lifting something FINDINGS: RIGHT RIBS WITH CHEST A single PA view of the chest and 2 views of the right ribs were obtained. There is a chest port with the tip in the SVC. The heart and mediastinum within normal limits. The lungs are clear. There is no pneumothorax. There is no acute displaced rib fracture. IMPRESSION: No acute cardiopulmonary process or displaced rib fracture. Reviewed, Interpreted and Dictated by Bill Thomas MD Transcribed by Nidia Turner Authenticated and [facility]
[2024-05-28] MEDS: KETOROLAC 30MG/ML VIAL 30 MG IM (10:00)
[2024-05-28 10:17] VITALS: BP 148/83; PULSE 63; RESP 23; TEMP 36.7; O2SAT 97
--- NOTE | 2024-05-28 10:19 | PC.NURSE ---
INCENTIVE SPIROMETER GIVEN TO PATIENT AT THIS TIME AND PATIENT INSTRUCTED ON USE AND ADVISED TO USE EVERY 1-2 HOURS WHILE AWAKE. PATIENT VERBALIZED UNDERSTANDING AND STATES SHE HAS USED THEM IN THE PAST
== END 2024-05-28 10:20 | disposition home or self-care (01) ==
PROVIDERS: Emergency Provider Nurse Practitioner Family; PCP Internal Medicine
DX: R07.82 Intercostal pain (principal)
CPT/HCPCS: 71101; 96372; 99213; G0381; J1885

== ENCOUNTER 2024-06-05 18:43 | Emergency (ER) | payer MEDICARE, OTHER, SELFPAY ==
--- NOTE | 2024-06-05 18:48 | XR_ITS ---
PROCEDURE INFORMATION: Exam: XR Right Forearm Exam date and time: 06/05/2024 7:39 PM Age: 68 years old Clinical indication: Injury or trauma; Other: Hit arm on door frame; Other: Pain TECHNIQUE: Imaging protocol: Radiologic exam of the right forearm. Views: 2 views. Frontal and lateral COMPARISON: CR XR HAND RT MIN 3V 05/15/2023 2:29 PM FINDINGS: Bones/joints: Diffusely decreased bone density. Mild to moderate generalized bony degenerative changes. Bony structures appear otherwise unremarkable. No visualized evidence for acute bony fracture or dislocation. Soft tissues: Focal soft tissue edema within the posterior proximal to mid right forearm. This is best seen on lateral view. The soft tissues appear otherwise unremarkable. Notes: If there is further concern, recommend follow-up radiographs for complete assessment. IMPRESSION: 1. Soft tissue edema. 2. No acute bony abnormality identified.
[2024-06-05 19:00] VITALS: BP 158/89; PULSE 72; RESP 18; TEMP 36.8; O2SAT 96; BMI 27.9
--- NOTE | 2024-06-05 19:20 | ED_ITS ---
Discharge Plan Disposition Patient Disposition: Home, Self-Care Condition: Good Prescriptions Prescriptions: No Action fluoxetine 40 mg capsule 40 mg PO DAILY Patient Comments: TAKE TWO CAPSULES BY MOUTH EVERY DAY lisinopril 20 mg tablet 20 mg PO DAILY Patient Comments: TAKE ONE TABLET BY MOUTH FOR HIGH BLOOD PRESSURE sumatriptan succinate 50 mg tablet 50 mg PO DAILY Patient Comments: TAKE 1 TABLET BY MOUTH AT ONSET OF MIGRAINE. MAY REPEAT AFTER AT least 2 HOURS IF NEEDED max daily DOSE is 4 TABLETS propranolol 10 mg tablet 10 mg PO DAILY Patient Comments: TAKE ONE TABLET BY MOUTH TWICE DAILY buspirone 15 mg tablet 15 mg PO DAILY Patient Comments: TAKE ONE TABLET BY MOUTH THREE TIMES DAILY MAY CAUSE DROWSINESS methocarbamol 750 mg tablet 750 mg PO TID PRN (Reason: muscle spasm) Qty: 30 0RF Referrals Follow up/Referrals: Librado Gilmore DO [Primary Care Provider] - See instructions Activity Restrictions/Add. Instructions Additional Instructions/Restrictions: rest Ice with cold pack for 20 minutes remove may repeat for comfort every hour Elevate with ankle above your heart as much as possible to help reduce swelling and therefore pain Ibuprofen every 6 hours as needed for pain or inflammation. If needs something more you can take Tylenol every 4 hours as needed as long as her primary care has told he was okayed for you to take both. Follow-up immediately if new or worsening symptoms or no noticeable improvement over the next 3-5 days. call ortho if no improvement Clinical Impressions Clinical Impression: Contusion Qualifiers: Encounter type: initial encounter Contusion area: forearm Laterality: right Q ualified Code(s): S50.11XA - Contusion of right forearm, initial encounter Instructions Patient Instructions: Contusion Print Language Print Language: Uzbek Discharge ED Provider: Lisa ([facility])Mindy [facility] HPI General Stated complaint: AO 06-05 hit right arm , pain and swollen Mode of Arrival: Ambulatory Source of Information: Patient Limitations: No Limitations Time Seen by Provider: 06/05/24 19:19 Description of Symptoms (Recalled from Triage Doc. by RN): PATIENT STATES SHE WAS LEAVING A DOCTOR'S OFFICE TODAY AND HIT HER RIGHT ARM ON THE DOOR. SWELLING AND BRUISING NOTED TO RIGHT FOREARM HEENT Symptoms (Recalled from RN notes): No Resp Symptoms (Recalled from RN notes): No Skin Symptoms (Recalled from RN notes): No MS Symptoms (Recalled from RN notes): Yes Functional Status (Recalled from RN notes): WNL History of Present Illness Provider Complaint: 68-year-old female presents for right arm pain, swelling and bruising. Patient states she was sleeping in a doctor's office today and hit her arm on the door Related Data Home Medications ?Medication ?Instructions ?Recorded ?Confirmed buspirone 15 mg tablet 15 mg PO DAILY 05/28/24 05/28/24 fluoxetine 40 mg capsule 40 mg PO DAILY 05/28/24 05/28/24 lisinopril 20 mg tablet 20 mg PO DAILY 05/28/24 05/28/24 propranolol 10 mg tablet 10 mg PO DAILY 05/28/24 05/28/24 sumatriptan succinate 50 mg tablet 50 mg PO DAILY 05/28/24 05/28/24 Previous Rx's ?Medication ?Instructions ?Recorded methocarbamol 750 mg tablet 750 mg PO TID PRN muscle spasm #30 05/28/24 tabs Allergies Allergy/AdvReac Type Severity Reaction Status Date / Time cephalexin [From Keflex] Allergy Severe Difficulty Verified 05/21/24 13:27 Breathing prochlorperazine Allergy Severe Swelling Verified 05/21/24 13:27 [PROCHLORPERAZINE] of Lip/Tongue/Throat codeine [CODEINE] Allergy Unknown VOMITING / Verified 05/21/24 13:27 NAUSEA prednisone [PREDNISONE] Allergy Unknown BP ISSUES Verified 05/21/24 13:27 promethazine [From PHENERGAN] Allergy Unknown Unknown Verified 05/21/24 13:27 allergy reaction metoclopramide [From Reglan] Allergy Nausea Verified 05/21/24 13:27 hydroxyzine [From Vistaril] AdvReac Verified 05/21/24 13:27 Worker's Comp Is this a Worker's Comp case?: No [facility] Disclaimer: The information contained in this section may have been updated after the patient was seen, as this information can be updated by other users. Medical History Dizziness Sinus bradycardia Dyspnea Chest pain Insomnia Depression Anxiety Cholecystectomy planned Urinary tract infection Pneumonia Osteoporosis Allergies Edema History of anemia History of constipation Exposure to COVID-19 virus NSAIDs adverse reaction Knee effusion, right Sphincter of Oddi dysfunction Abdominal adhesions Hx of Crohn's disease This apparently was not the issue for why Angelica was admitted to the hospital recently. She was placed on sucralfate. There was some mention of ulcers but I do not see that in the discharge summary. Positive D dimer HTN (hypertension) Bilateral lower extremity edema Surgical History (Reviewed 06/05/24 @ 19:21 by Mindy Gonzalez ([facility]), SENIOR RD ENGINEER) H/O oral surgery History of appendectomy H/O total hysterectomy History of esophagogastroduodenoscopy (EGD) History of arthroscopy of right knee Status post knee surgery History of intestinal surgery Family History (Reviewed 06/05/24 @ 19:21 by Mindy Gonzalez ([facility]), SENIOR RD ENGINEER) Heart attack Cancer Social History (Reviewed 06/05/24 @ 19:21 by Mindy Gonzalez ([facility]), SENIOR RD ENGINEER) Smoking Status: Never smoker second hand exposure: No alcohol intake: never substance use type: denies use current occupational status: disabled Travel in the last 8 weeks: None household members: none housing: apartment number of children: 2 current occupational exposures/hazards: No caffeine: Yes ROS Obtained: Yes Systems reviewed as appropriate & no additional complaints except as documented Physical Exam General General appearance: alert and in no apparent distress Eye Eye exam: Present normal appearance and PERRL ENT ENT exam: Present normal exam, normal oropharynx, mucous membranes moist and TM's normal bilaterally Respiratory Respiratory exam: Present normal lung sounds bilaterally Cardiovascular Cardiovascular exam: Present regular rate and normal rhythm Expanded Upper Extremity Exam Right: Shoulder exam: Present normal inspection Arm exam: Present tenderness, swelling and ecchymosis Elbow exam: Present normal inspection and full ROM Forearm/Wrist exam: Present normal inspection and full ROM L/R Arms Top View: 2 1. Bruising Neurological Exam Neurological exam: Present alert and oriented X3 Skin Skin exam: Present warm and other Lymphatic Lymphatic Findings: no adenopathy Medical Decision Making Medical Records Medical records reviewed: Yes I reviewed the patient's medical records. Screening: Per USPSTF and CDC recommendations, given the prevalence of disease in our region, it is our hospital?s policy to screen for HIV and viral Hepatitis for all patients aged 18 and over and those with ongoing risk factors. Grant Inquiry Pt receiving controlled substance: No Grant was queried for this patient: No Vital Signs: 06/05/24 19:00 Temperature 98.2 F Temperature Source Oral Pulse Rate [Left Brachial] 72 Respiratory Rate 18 Blood Pressure [Left Arm] 158/89 H Blood Pressure Mean [Left Arm] 112 Blood Pressure Source [Left Arm] Automatic Cuff Blood Pressure Position [Left Arm] Sitting 02 Sat by Pulse Oximetry 96 Oxygen Delivery Method Room Air Orders (Tests/Meds): ORDERS Category Date Time Status Forearm XR right 2 views [XR forearm RT 2V] Stat Exams 06/05/24 18:48 Ordered
[2024-06-05 20:00] VITALS: BP 158/89; PULSE 72; RESP 18; TEMP 36.8; O2SAT 96
== END 2024-06-05 20:02 | disposition home or self-care (01) ==
PROVIDERS: Emergency Provider Nurse Practitioner Family; PCP Internal Medicine
DX: S50.11XA Contusion of right forearm, initial encounter (principal); W22.8XXA Striking against or struck by other objects, initial encounter
CPT/HCPCS: 73090; 99213; G0381

== ENCOUNTER 2024-06-10 10:40 | Outpatient (CLI) | payer MEDICARE, OTHER, SELFPAY | END 2024-06-10 23:59 | disposition home or self-care (01) | LOC: LAB.DROPOF 06-11 12:56 | PROVIDERS: PCP Family Medicine; Visit Provider Family Medicine | DX: N39.0 Urinary tract infection, site not specified (principal) | CPT/HCPCS: 87086 ==

== ENCOUNTER 2024-06-21 09:16 | Emergency (ER) | payer MEDICARE, OTHER, SELFPAY ==
[2024-06-21 09:45] VITALS: BP 180/95; PULSE 64; RESP 21; TEMP 36.8; O2SAT 95; BMI 25.7
--- NOTE | 2024-06-21 10:07 | EXP.UTC ---
Discharge Plan Disposition Patient Disposition: Home, Self-Care Condition: Good Prescriptions Prescriptions: New azithromycin [Zithromax Z-Dionicio] 250 mg tablet See Rx Instructions .ROUTE .COMPLEX 5 Days Qty: 6 0RF Rx Instructions: For 250 mg dose pack: take 500 mg today (day 1), then 250 mg for 4 days (days 2-5) benzonatate 100 mg capsule 100 mg PO TID PRN (Reason: cough) Qty: 30 0RF No Action prazosin 1 mg capsule 1 mg PO HS Patient Comments: TAKE ONE CAPSULE BY MOUTH AT BEDTIME lisinopril 20 mg tablet 20 mg PO DAILY Patient Comments: TAKE ONE TABLET BY MOUTH FOR HIGH BLOOD PRESSURE buspirone 15 mg tablet 15 mg PO TID Patient Comments: TAKE ONE TABLET BY MOUTH THREE TIMES DAILY MAY CAUSE DROWSINESS buprenorphine-naloxone 8-2 mg tablet, sublingual 2 tab SUBLINGUAL DAILY Patient Comments: DISSOLVE 2 TABLETS UNDER THE TONGUE ONCE DAILY IN THE MORNING desvenlafaxine succinate 25 mg tablet extended release 24 hr 25 mg PO DAILY Patient Comments: TAKE ONE TABLET BY MOUTH EVERY DAY Referrals Follow up/Referrals: Librado Gilmore DO [Primary Care Provider] - See instructions Activity Restrictions/Add. Instructions Additional Instructions/Restrictions: *Monitor Temp, Over the counter Motrin or Tylenol as directed/as needed Tylenol every 4 hours and Motrin every 6 hours (as long as your family doctor has told you that you can take it) for fever or pain. and straight to ER if unable to lower temp less than 101.0 after medication given *Warm salt water gargles may help to soothe the throat *Throat Lozenges? *Warm fluids like tea with honey may help to soothe the throat? *Sleep elevated *Humidifier/Vaporizer Take medication as prescribed Follow up IMMEDIATELY for new or worsening symptoms or no Noticeable improvement over the next 48-72 hours. 911 for difficulty breathing or swallowing Clinical Impressions Clinical Impression: Sinusitis Qualifiers: Sinusitis location: unspecified location Chronicity: unspecified Qualified Code(s): J32.9 - Chronic sinusitis, unspecified Instructions Patient Instructions: Sinusitis, DI for Sinusitis Print Language Print Language: Kyrgyz Discharge ED Provider: Ana Mejia [facility] HPI General Stated complaint: sinus pressure, Drainage Mode of Arrival: Ambulatory Source of Information: Patient Limitations: No Limitations Time Seen by Provider: 06/21/24 10:07 Description of Symptoms (Recalled from Triage Doc. by RN): PATIENT C/O SINUS PRESSURE, CONGESTION, EAR PAIN AND COUGH X 2 WEEKS HEENT Symptoms (Recalled from RN notes): Yes Resp Symptoms (Recalled from RN notes): Yes Skin Symptoms (Recalled from RN notes): No MS Symptoms (Recalled from RN notes): No Functional Status (Recalled from RN notes): WNL History of Present Illness Provider Complaint: Patient states she has been having sinus pain and pressure with pressure behind her eyes for several weeks has tried OTC medications but they havent helped much States that she was recently on antibiotics for UTI but it didnt help her sinuses Related Data Home Medications ?Medication ?Instructions ?Recorded ?Confirmed buprenorphine 8 mg-naloxone 2 mg 2 tab sublingual DAILY 06/21/24 06/21/24 sublingual tablet buspirone 15 mg tablet 15 mg PO TID 06/21/24 06/21/24 desvenlafaxine succinate 25 mg 25 mg PO DAILY 06/21/24 06/21/24 tablet,extended release 24 hr lisinopril 20 mg tablet 20 mg PO DAILY 06/21/24 06/21/24 prazosin 1 mg capsule 1 mg PO HS 06/21/24 06/21/24 Previous Rx's ?Medication ?Instructions ?Recorded azithromycin 250 mg tablet See Rx Instructions PO .COMPLEX 5 06/21/24 (Zithromax Z-Dionicio) days #6 tabs benzonatate 100 mg capsule 100 mg PO TID PRN cough #30 caps 06/21/24 Allergies Allergy/AdvReac Type Severity Reaction Status Date / Time cephalexin [From Keflex] Allergy Severe Difficulty Verified 06/10/24 09:56 Breathing prochlorperazine Allergy Severe Swelling Verified 06/10/24 09:56 [PROCHLORPERAZINE] of Lip/Tongue/Throat codeine [CODEINE] Allergy Unknown VOMITING / Verified 06/10/24 09:56 NAUSEA prednisone [PREDNISONE] Allergy Unknown BP ISSUES Verified 06/10/24 09:56 promethazine [From PHENERGAN] Allergy Unknown Unknown Verified 06/10/24 09:56 allergy reaction metoclopramide [From Reglan] Allergy Nausea Verified 06/10/24 09:56 hydroxyzine [From Vistaril] AdvReac Verified 06/10/24 09:56 Worker's Comp Is this a Worker's Comp case?: No [facility] Disclaimer: The information contained in this section may have been updated after the patient was seen, as this information can be updated by other users. Medical History (Updated 06/21/24 @ 10:27 by Ana Mejia APRN) Dizziness Sinus bradycardia Dyspnea Chest pain Insomnia Depression Anxiety Cholecystectomy planned Urinary tract infection Pneumonia Osteoporosis Allergies Edema History of anemia History of constipation Exposure to COVID-19 virus NSAIDs adverse reaction Knee effusion, right Sphincter of Oddi dysfunction Abdominal adhesions Hx of Crohn's disease Positive D dimer HTN (hypertension) Bilateral lower extremity edema Surgical History H/O oral surgery History of appendectomy H/O total hysterectomy History of esophagogastroduodenoscopy (EGD) History of arthroscopy of right knee Status post knee surgery History of intestinal surgery Family History Other Cancer Heart attack Social History Smoking Status: Never smoker second hand exposure: No alcohol intake: never substance use type: denies use current occupational status: disabled Travel in the last 8 weeks: None household members: none housing: apartment number of children: 2 current occupational exposures/hazards: No caffeine: Yes ROS Obtained: Yes All systems reviewed & no additional complaints except as documented and Yes Systems reviewed as appropriate & no additional complaints except as documented Constitutional Constitutional: Reports system reviewed and no additional complaints, except as documented and Reports as per HPI ENT Ears, Nose, Mouth, and Throat: Reports system reviewed and no additional complaints, except as documented, Reports as per HPI, Reports sinus pain and Reports sinus pressure Cardiovascular Cardiovascular: Reports system reviewed and no additional complaints, except as documented and Reports as per HPI Respiratory Respiratory: Reports system reviewed and no additional complaints, except as documented and Reports as per HPI Gastrointestinal Gastrointestingal: Reports system reviewed and no additional complaints, except as documented and as per HPI Genitourinary Female Genitourinary: Reports system reviewed and no additional complaints, except as documented and Reports as per HPI Integumentary/Breasts Skin/Breast: Reports system reviewed and no additional complaints, except as documented and Reports as per HPI Physical Exam General General appearance: alert and in no apparent distress ENT ENT exam: Present mucous membranes moist Expanded ENT Exam Nose exam: Present sinus tenderness Throat exam: Present normal inspection Chest Chest inspection: Present normal inspection and symmetric chest wall rise Respiratory Respiratory exam: Present normal lung sounds bilaterally; Absent respiratory distress or wheezes Cardiovascular Cardiovascular exam: Present regular rate, normal rhythm and normal heart sounds Abdominal Exam Abdominal exam: Present soft, distention and normal bowel sounds Neurological Exam Neurological exam: Present alert, oriented X3 and normal gait Medical Decision Making Medical Records Screening: Per USPSTF and CDC recommendations, given the prevalence of disease in our region, it is our hospital?s policy to screen for HIV and viral Hepatitis for all patients aged 18 and over and those with ongoing risk factors. Grant Inquiry Pt receiving controlled substance: No Grant was queried for this patient: No Vital Signs: 06/21/24 09:45 Temperature 98.2 F Temperature Source Oral Pulse Rate [Left Brachial] 64 Respiratory Rate 21 Blood Pressure [Left Arm] 180/95 H Blood Pressure Mean [Left Arm] 123 Blood Pressure Source [Left Arm] Automatic Cuff Blood Pressure Position [Left Arm] Sitting 02 Sat by Pulse Oximetry 95 Oxygen Delivery Method Room Air Medical Decision Narrative: Patient states that she has taken azithromycin in the past without complications or reactions, states that she is having a sinus headache requesting Toradol injection medication discussed with pharmacy
[2024-06-21] MEDS: KETOROLAC 30MG/ML VIAL 15 MG IM (10:33)
[2024-06-21 10:42] VITALS: BP 180/95; PULSE 64; RESP 21; TEMP 36.8; O2SAT 95
== END 2024-06-21 10:44 | disposition home or self-care (01) ==
PROVIDERS: Emergency Provider Nurse Practitioner; PCP Internal Medicine
DX: J32.9 Chronic sinusitis, unspecified (principal)
CPT/HCPCS: 96372; 99213; G0381; J1885

== ENCOUNTER 2024-06-25 15:00 | Outpatient (CLI) | payer MEDICARE, OTHER, SELFPAY ==
[2024-06-25 19:05] LABS: Coronavirus 19, PCR Not Detected (NotDetected); Influenza A, PCR Not Detected (NotDetected); Influenza B, PCR Not Detected (NotDetected)
== END 2024-06-25 23:59 | disposition home or self-care (01) ==
LOC: LAB.DROPOF 06-26 11:18
PROVIDERS: PCP Internal Medicine; Visit Provider Internal Medicine
DX: J06.9 Acute upper respiratory infection, unspecified (principal); J02.9 Acute pharyngitis, unspecified
CPT/HCPCS: 87070; 87636

== ENCOUNTER 2024-07-15 13:07 | Outpatient (CLI) | payer MEDICARE, OTHER, SELFPAY ==
--- NOTE | 2024-07-15 13:12 | XR_ITS ---
FINAL REPORT CLINICAL HISTORY: left knee pain COMPARISON: 01/02/2022 FINDINGS: LEFT KNEE: Three views of the left knee were obtained. There is no acute fracture or dislocation. There are mild degenerative changes. There is a small joint effusion. Soft tissues are unremarkable. IMPRESSION: Degenerative changes and small joint effusion without acute bony abnormality. Reviewed, Interpreted and Dictated by Luis Alberto Redd III, MD Transcribed by Cristel Schwartz Authenticated and [facility]
== END 2024-07-15 23:59 | disposition home or self-care (01) ==
LOC: RAD 13:10
PROVIDERS: PCP Internal Medicine; Visit Provider Physician Assistant
DX: M25.562 Pain in left knee (principal)
CPT/HCPCS: 73562

== ENCOUNTER 2024-08-09 10:58 | Emergency (ER) | payer MEDICARE, OTHER, SELFPAY ==
[2024-08-09 12:45] VITALS: BP 140/91; PULSE 72; RESP 22; TEMP 36.8; O2SAT 99; BMI 27.4
--- NOTE | 2024-08-09 13:07 | ED_ITS ---
Discharge Plan Disposition Patient Disposition: Home, Self-Care Condition: Good Prescriptions Prescriptions: New azithromycin [Zithromax Z-Dionicio] 250 mg tablet See Rx Instructions .ROUTE .COMPLEX 5 Days Qty: 6 0RF Rx Instructions: For 250 mg dose pack: take 500 mg today (day 1), then 250 mg for 4 days (days 2-5) No Action prazosin 1 mg capsule 1 mg PO HS Patient Comments: TAKE ONE CAPSULE BY MOUTH AT BEDTIME celecoxib 100 mg capsule 100 mg PO BID Patient Comments: TAKE ONE CAPSULE BY MOUTH TWICE DAILY MAY CAUSE DROWSINESS buspirone 15 mg tablet 15 mg PO TID Patient Comments: TAKE ONE TABLET BY MOUTH THREE TIMES DAILY MAY CAUSE DROWSINESS buprenorphine-naloxone 8-2 mg tablet, sublingual 1 tab sublingual DAILY Patient Comments: DISSOLVE 2 TABLETS UNDER THE TONGUE ONCE DAILY IN THE MORNING Referrals Follow up/Referrals: Librado Gilmore DO [Primary Care Provider] - See instructions Activity Restrictions/Add. Instructions Additional Instructions/Restrictions: *Monitor Temp, Over the counter Motrin or Tylenol as directed/as needed Tylenol every 4 hours and Motrin every 6 hours (as long as your family doctor has told you that you can take it) for fever or pain. and straight to ER if unable to lower temp less than 101.0 after medication given *Warm salt water gargles may help to soothe the throat *Throat Lozenges? *Warm fluids like tea with honey may help to soothe the throat? *Sleep elevated *Humidifier/Vaporizer *Your throat swab was sent for culture. Those results are typically sent to your primary care. Be sure to follow up in 2-3 days with your family doctor/primary care physician if no improvement so they can review those result and treat if necessary. If you don?t have a primary care doctor, I recommend you get one but in the mean time, you will have to return to a walk in clinic Follow up IMMEDIATELY for new or worsening symptoms or no Noticeable improvement over the next 48-72 hours. 911 for difficulty breathing or swallowing Clinical Impressions Clinical Impression: Pharyngitis Instructions Patient Instructions: Sore Throat Print Language Print Language: Mozambican Discharge ED Provider: Ana Mejia [facility] [place] HPI General Stated complaint: sore throat, cough, fever Mode of Arrival: Ambulatory Source of Information: Patient Limitations: No Limitations Time Seen by Provider: 08/09/24 13:07 Description of Symptoms (Recalled from Triage Doc. by RN): PATIENT C/O SORE THROAT AND COUGH X 1-2 DAYS HEENT Symptoms (Recalled from RN notes): Yes Resp Symptoms (Recalled from RN notes): Yes Skin Symptoms (Recalled from RN notes): No MS Symptoms (Recalled from RN notes): No Functional Status (Recalled from RN notes): WNL History of Present Illness Provider Complaint: Patient states that she has been having sore throat and cough for the last couple of days States that she was around her neighbor that has strep throat and now she thinks she may have it too Related Data Home Medications ?Medication ?Instructions ?Recorded ?Confirmed buprenorphine 8 mg-naloxone 2 mg 1 tab sublingual DAILY 08/09/24 08/09/24 sublingual tablet buspirone 15 mg tablet 15 mg PO TID 08/09/24 08/09/24 celecoxib 100 mg capsule 100 mg PO BID 08/09/24 08/09/24 prazosin 1 mg capsule 1 mg PO HS 08/09/24 08/09/24 Previous Rx's ?Medication ?Instructions ?Recorded azithromycin 250 mg tablet See Rx Instructions PO .COMPLEX 5 08/09/24 (Zithromax Z-Dionicio) days #6 tabs Allergies Allergy/AdvReac Type Severity Reaction Status Date / Time cephalexin (From Keflex) Allergy Severe Difficulty Verified 07/15/24 13:58 Breathing prochlorperazine Allergy Severe Swelling Verified 07/15/24 13:58 (PROCHLORPERAZINE) of Lip/Tongue/Throat codeine (CODEINE) Allergy Unknown VOMITING / Verified 07/15/24 13:58 NAUSEA prednisone (PREDNISONE) Allergy Unknown BP ISSUES Verified 07/15/24 13:58 promethazine (From PHENERGAN) Allergy Unknown Unknown Verified 07/15/24 13:58 allergy reaction metoclopramide (From Reglan) Allergy Nausea Verified 07/15/24 13:58 hydroxyzine (From Vistaril) AdvReac Verified 07/15/24 13:58 Worker's Comp Is this a Worker's Comp case?: No PFS PFS Disclaimer: The information contained in this section may have been updated after the patient was seen, as this information can be updated by other users. Medical History Dizziness Sinus bradycardia Dyspnea Chest pain Insomnia Depression Anxiety Cholecystectomy planned Urinary tract infection Pneumonia Osteoporosis Allergies Edema History of anemia History of constipation Exposure to COVID-19 virus NSAIDs adverse reaction Knee effusion, right Sphincter of Oddi dysfunction Abdominal adhesions Hx of Crohn's disease This apparently was not the issue for why Angelica was admitted to the hospital recently. She was placed on sucralfate. There was some mention of ulcers but I do not see that in the discharge summary. Positive D dimer HTN (hypertension) Bilateral lower extremity edema Surgical History H/O oral surgery History of appendectomy H/O total hysterectomy History of esophagogastroduodenoscopy (EGD) History of arthroscopy of right knee Status post knee surgery Status post right knee arthroscopy with partial medial meniscectomy date of surgery May 16, 2022 History of intestinal surgery Family History Other Cancer Heart attack Social History Smoking Status: Never smoker second hand exposure: No alcohol intake: never substance use type: denies use current occupational status: disabled Travel in the last 8 weeks: None household members: none housing: apartment number of children: 2 current occupational exposures/hazards: No caffeine: Yes Have you lived/traveled outside [place] in past 30 days?: No Contact w/someone who lives/traveled outside [place] past 30 days?: No Exposure to someone with infectious disease in past 14 days?: No Do you have a fever (greater than 100.4 F or 38 C)?: Yes Have you tested positive for COVID-19: No Exposed to someone with COVID-19 in past 14 days?: No Do you have a sore throat?: Yes Do you have a cough?: Yes Do you have any weakness?: No Do you have any diarrhea?: No Are you experiencing any unusual bleeding?: No Do you have any muscle aches/pain?: No Do you have any abdominal pain?: No Are you experiencing loss of taste or smell?: No ROS Obtained: Yes All systems reviewed & no additional complaints except as documented and Yes Systems reviewed as appropriate & no additional complaints except as documented Constitutional Constitutional: Reports system reviewed and no additional complaints, except as documented, Reports as per HPI, Reports body ache and Reports headache(s) ENT Ears, Nose, Mouth, and Throat: Reports system reviewed and no additional complaints, except as documented, Reports as per HPI, Reports headache(s), Reports nasal congestion, Reports nasal discharge and Reports sore throat Cardiovascular Cardiovascular: Reports system reviewed and no additional complaints, except as documented and Reports as per HPI Respiratory Respiratory: Reports system reviewed and no additional complaints, except as documented, Reports as per HPI and Reports cough Gastrointestinal Gastrointestingal: Reports system reviewed and no additional complaints, except as documented and as per HPI Neurologic Neurologic: Reports headache(s) Physical Exam General General appearance: alert and in no apparent distress ENT ENT exam: Present mucous membranes moist Expanded ENT Exam Nose exam: Absent sinus tenderness Throat exam: Present tonsillar erythema; Absent tonsillomegaly or tonsillar exudate Respiratory Respiratory exam: Present normal lung sounds bilaterally; Absent respiratory distress or wheezes Cardiovascular Cardiovascular exam: Present regular rate, normal rhythm and normal heart sounds Abdominal Exam Abdominal exam: Present soft and normal bowel sounds; Absent distention or tenderness Neurological Exam Neurological exam: Present alert, oriented X3 and normal gait Medical Decision Making Medical Records Screening: Per USPSTF and CDC recommendations, given the prevalence of disease in our [facility], it is our hospital?s policy to screen for HIV and viral Hepatitis for all patients aged 18 and over and those with ongoing risk factors. Grant Inquiry Pt receiving controlled substance: No Grant was queried for this patient: No Vital Signs: 08/09/24 12:45 Temperature 98.2 F Temperature Source Oral Pulse Rate [Left Brachial] 72 Respiratory Rate 22 Blood Pressure [Left Arm] 140/91 H Blood Pressure Mean [Left Arm] 107 Blood Pressure Source [Left Arm] Automatic Cuff Blood Pressure Position [Left Arm] Sitting 02 Sat by Pulse Oximetry 99 Oxygen Delivery Method Room Air Lab Data Lab results reviewed: Yes I reviewed the patient's lab results.
[2024-08-09 13:25] LABS: UTC Influenza A Antigen Negative (Negative); UTC Influenza B Antigen Negative (Negative); UTC Strep Screen (Rapid) Negative (Negative)
[2024-08-09 13:37] VITALS: BP 140/91; PULSE 72; RESP 22; TEMP 36.8; O2SAT 99
== END 2024-08-09 13:44 | disposition home or self-care (01) ==
PROVIDERS: Emergency Provider Nurse Practitioner; PCP Internal Medicine
DX: J02.9 Acute pharyngitis, unspecified (principal)
CPT/HCPCS: 87804; 87880; 99213; G0381

== ENCOUNTER 2024-08-15 15:46 | Outpatient (CLI) | payer MEDICARE, OTHER, SELFPAY | END 2024-08-15 23:59 | disposition home or self-care (01) | LOC: LAB.DROPOF 08-17 08:56 | PROVIDERS: PCP Family Medicine; Visit Provider Family Medicine | DX: R39.9 Unspecified symptoms and signs involving the genitourinary system (principal) | CPT/HCPCS: 87086 ==

== ENCOUNTER 2024-08-27 12:20 | Emergency (ER) | payer MEDICARE, OTHER, SELFPAY ==
[2024-08-27] VITALS (7 sets, daily range): BP systolic 116–162; BP diastolic 61–95; PULSE 59–77; RESP 16–17; TEMP 36.6–36.9; O2SAT 91–98; BMI 28.5
--- NOTE | 2024-08-27 12:39 | PC.NURSE ---
pt ambulatory to restroom without complications to provide UA
--- NOTE | 2024-08-27 12:40 | CT_ITS ---
FINAL REPORT TECHNIQUE: IV contrast enhanced exam This study was performed with techniques to keep radiation doses as low as reasonably achievable, (ALARA). Individualized dose reduction techniques using automated exposure control or adjustment of mA and/or kV according to the patient''s size were employed. CLINICAL HISTORY: abd pain COMPARISON: 10/07/2023 FINDINGS: Abdomen: No acute density is seen within the lung bases. There is moderate intra and extrahepatic biliary ductal dilatation, stable from prior attributed to previous cholecystectomy. There is mild left renal scarring. Solid abdominal organs are unremarkable. No bowel obstruction is present. There is no free air. No fluid collection is seen. There is no adenopathy. Pelvis: The appendix is not identified. Patient is status post hysterectomy. No bowel wall thickening is present. There is no free fluid. No pelvic mass is seen. IMPRESSION: Stable exam without acute findings. Reviewed, Interpreted and Dictated by Santo Gerardo MD Transcribed by Ivanna Martin Authenticated and [facility]
--- NOTE | 2024-08-27 12:46 | PC.NURSE ---
UA sent to lab
[2024-08-27 12:53] LABS: Microscopic, Urine URINE MICROSCOPIC (MICROSCOPIC)
--- NOTE | 2024-08-27 13:02 | ED_ITS ---
Discharge Plan Disposition Patient Disposition: Home, Self-Care Chief Complaint: PAIN Prescriptions Prescriptions: No Action oxybutynin chloride 5 mg tablet 5 mg PO DAILY Qty: 30 2RF lisinopril 20 mg tablet 20 mg PO DAILY Qty: 90 3RF prazosin 1 mg capsule 1 mg PO HS Patient Comments: TAKE ONE CAPSULE BY MOUTH AT BEDTIME celecoxib 100 mg capsule 100 mg PO BID Patient Comments: TAKE ONE CAPSULE BY MOUTH TWICE DAILY MAY CAUSE DROWSINESS buspirone 15 mg tablet 15 mg PO TID Patient Comments: TAKE ONE TABLET BY MOUTH THREE TIMES DAILY MAY CAUSE DROWSINESS buprenorphine-naloxone 8-2 mg tablet, sublingual 1 tab sublingual DAILY Patient Comments: DISSOLVE 2 TABLETS UNDER THE TONGUE ONCE DAILY IN THE MORNING Referrals Follow up/Referrals: Librado Gilmore DO [Primary Care Provider] - See instructions Activity Restrictions/Add. Instructions Additional Instructions/Restrictions: Call your family doctor to establish care for this visit to the emergency department and schedule follow-up within 48 hours to ensure improvement. If you have any worsening of your condition or any other concerning signs or symptoms, return to the emergency department or your primary care doctor for further evaluation. CT following up as you have been for MRI and ultrasounds. Clinical Impressions Clinical Impression: Abdominal pain Qualifiers: Abdominal location: lower abdomen, unspecified Qualified Code(s): R10.30 - Lower abdominal pain, unspecified Print Language Print Language: Czech Discharge ED Provider: Rajendra Mann General Adult HPI General Chief complaint: PAIN Stated complaint: phy ref Time Seen by Provider: 08/27/24 12:39 Mode of Arrival: Ambulatory Source of Information: Patient Limitations: No Limitations Description of Symptoms (Recalled from ER Triage Doc. by RN): c/o pain around her bladder, per , sent her over for a ct scan for the pain she continues to have. History of Present Illness HPI narrative: Please note that above description of symptoms, in this electronic medical record under categorization of recalled from ER triage doctor by RN are reflective of an initial nursing assessment, however, is not reflective of my full history and physical exam that was personally taken and clarified. Consequentially, this preceding description of symptoms, which may include the patient's categorized chief complaint in the EMR, do not reflect my personal clinical impression, and the ultimate description of history of present illness and patient stated complaints should be deferred to this section of the note. Unless stated otherwise or congruent with this section of the note, additional signs, symptoms, or incongruence should be interpreted as inaccurate with my clinical impression. Related Data Home Medications ?Medication ?Instructions ?Recorded ?Confirmed buprenorphine 8 mg-naloxone 2 mg 1 tab sublingual DAILY 08/09/24 08/27/24 sublingual tablet buspirone 15 mg tablet 15 mg PO TID 08/09/24 08/27/24 celecoxib 100 mg capsule 100 mg PO BID 08/09/24 08/27/24 prazosin 1 mg capsule 1 mg PO HS 08/09/24 08/27/24 Previous Rx's ?Medication ?Instructions ?Recorded oxybutynin chloride 5 mg tablet 5 mg PO DAILY #30 tabs 08/15/24 lisinopril 20 mg tablet 20 mg PO DAILY #90 tabs 08/26/24 Allergies Allergy/AdvReac Type Severity Reaction Status Date / Time cephalexin (From Keflex) Allergy Severe Difficulty Verified 08/27/24 11:24 Breathing prochlorperazine Allergy Severe Swelling Verified 08/27/24 11:24 (PROCHLORPERAZINE) of Lip/Tongue/Throat codeine (CODEINE) Allergy Unknown VOMITING / Verified 08/27/24 11:24 NAUSEA prednisone (PREDNISONE) Allergy Unknown BP ISSUES Verified 08/27/24 11:24 promethazine (From PHENERGAN) Allergy Unknown Unknown Verified 08/27/24 11:24 allergy reaction metoclopramide (From Reglan) Allergy Nausea Verified 08/27/24 11:24 hydroxyzine (From Vistaril) AdvReac Verified 08/27/24 11:24 PFSH PFS Disclaimer: The information contained in this section may have been updated after the patient was seen, as this information can be updated by other users. Medical History Dizziness Sinus bradycardia Dyspnea Chest pain Insomnia Depression Anxiety Cholecystectomy planned Urinary tract infection Pneumonia Osteoporosis Allergies Edema History of anemia History of constipation Exposure to COVID-19 virus NSAIDs adverse reaction Knee effusion, right Sphincter of Oddi dysfunction Abdominal adhesions Hx of Crohn's disease This apparently was not the issue for why Angelica was admitted to the hospital recently. She was placed on sucralfate. There was some mention of ulcers but I do not see that in the discharge summary. Positive D dimer HTN (hypertension) Bilateral lower extremity edema Surgical History H/O oral surgery History of appendectomy H/O total hysterectomy History of esophagogastroduodenoscopy (EGD) History of arthroscopy of right knee Status post knee surgery Status post right knee arthroscopy with partial medial meniscectomy date of surgery May 16, 2022 History of intestinal surgery Family History Other Cancer Heart attack Social History Smoking Status: Never smoker second hand exposure: No alcohol intake: never substance use type: denies use current occupational status: disabled Travel in the last 8 weeks: None household members: none housing: apartment number of children: 2 current occupational exposures/hazards: No caffeine: Yes Have you lived/traveled outside [place] in past 30 days?: No Contact w/someone who lives/traveled outside [place] past 30 days?: No Exposure to someone with infectious disease in past 14 days?: No Do you have a fever (greater than 100.4 F or 38 C)?: No Have you tested positive for COVID-19: No Exposed to someone with COVID-19 in past 14 days?: No Do you have a sore throat?: No Do you have a cough?: No Do you have any weakness?: No Do you have any diarrhea?: No Are you experiencing any unusual bleeding?: No Do you have any muscle aches/pain?: No Do you have any abdominal pain?: No Are you experiencing loss of taste or smell?: No Other Medical History Have you received the Flu Vaccine for this season: No Have you received the Pneumonia Vaccine: Yes ROS Obtained: Yes All systems reviewed & no additional complaints except as documented Physical Exam General General appearance: alert Head Head exam: atraumatic and normocephalic Eye Eye exam: Present normal appearance, PERRL and EOMI Neck Neck exam: Present normal inspection, full ROM and trachea midline Respiratory Respiratory exam: Absent respiratory distress, wheezes, stridor, accessory muscle use or prolonged expiratory phase Cardiovascular Cardiovascular exam: Present other (Pulses equal symmetric in upper and lower extremities) Abdominal Exam Abdominal exam: Present soft; Absent distention, tenderness or pulsatile mass Extremities Exam Extremities exam: Absent edema Neurological Exam Neurological exam: Present alert, oriented X3 and CN II-XII intact; Absent motor sensory deficit Skin Skin exam: Present warm and dry; Absent diaphoresis or erythema Medical Decision Making Medical Records Medical records reviewed: Yes I reviewed the patient's medical records. Screening: Per USPSTF and CDC recommendations, given the prevalence of disease in our region, it is our hospital?s policy to screen for HIV and viral Hepatitis for all patients aged 18 and over and those with ongoing risk factors. Grant Inquiry Pt receiving controlled substance: No Grant was queried for this patient: No Vital Signs: 08/27/24 12:22 08/27/24 12:33 08/27/24 13:04 Temperature 98.5 F Temperature Source Oral Pulse Rate 72 61 Pulse Rate [Left Radial] 77 Respiratory Rate 17 Blood Pressure 116/84 119/70 Blood Pressure [Right Arm] 116/84 Blood Pressure Mean Blood Pressure Mean [Right Arm] 94 Blood Pressure Source [Right Arm] Manual Cuff/ Doppler 02 Sat by Pulse Oximetry 95 91 L 95 Oxygen Delivery Method Room Air Room Air Room Air 08/27/24 13:07 08/27/24 13:31 Temperature Temperature Source Pulse Rate 62 Pulse Rate [Left Radial] Respiratory Rate Blood Pressure 138/86 Blood Pressure [Right Arm] Blood Pressure Mean 99 Blood Pressure Mean [Right Arm] Blood Pressure Source [Right Arm] 02 Sat by Pulse Oximetry 94 L Oxygen Delivery Method Room Air Room Air Lab Data Lab Results 08/27/24 12:45: Urine Color Yellow, Urine Appearance Sl cloudy, Urine pH 6.0, Ur Specific [place] >= 1.030, Urine Protein Negative, Urine Glucose (UA) Negative, Urine Ketones Negative, Urine Blood Negative, Urine Nitrate Negative, Urine Bilirubin 1+ A, Urine Urobilinogen 0.2, Ur Leukocyte Esterase Negative, Urine RBC Occasional, Urine WBC None, Ur Squamous Epith Cells 3-5, Urine Bacteria None 08/27/24 13:05: WBC 7.6, RBC 4.08 L, Hgb 11.7 L, Hct 35.6 L, MCV 87.3, MCH 28.7, MCHC 32.9, RDW 12.9, Plt Count 290, MPV 11.6 H, Neut % (Auto) 60.5, Lymph % (Auto) 27.7, [place] % (Auto) 7.7, Eos % (Auto) 3.5, Baso % (Auto) 0.5, Neut # (Auto) 4.6, Lymph # (Auto) 2.1, [place] # (Auto) 0.6, Eos # (Auto) 0.3, Baso # (Auto) 0.0, Sodium 135 L, Potassium 3.9, Chloride 104, Carbon Dioxide 26, Anion Gap 8.9, BUN 19 H, Creatinine 1.10 H, Estimated Creat Clear 58, Estimated GFR 49 L, Est GFR ( Amer) 60, Glucose 95, Lactate 0.8, Calcium 9.2, Total Bilirubin 0.5, AST 30, ALT 20, Alkaline Phosphatase 67, Total Protein 7.2, Albumin 4.4, Globulin 2.8, Albumin/Globulin Ratio 1.6, Lipase 155 08/27/24 13:05 08/27/24 13:05 Orders (Tests/Meds): ED MEDICATIONS Discontinued Medications Generic Name Dose Route Start Last Admin Trade Name Freq PRN Reason Stop Dose Admin Iopamidol 75 ml 08/27/24 13:44 08/27/24 13:45 Iopamidol-370 (76%);100ml Bottle IV 08/27/24 13:45 75 ml ONCE ONE Administration Sodium Chloride 10 ml 08/27/24 13:44 08/27/24 13:44 Sodium Chloride 0.9% 10ml Syr (Rad Only) IV 08/27/24 13:45 10 ml ONCE ONE Administration ORDERS Category Date Time Status CT abdomen pelvis w con Stat Cat Scan 08/27/24 12:40 Completed CBC w/Auto Diff [Complete Blood Count Auto Diff] Stat Lab 08/27/24 13:05 Completed CMP [Comprehensive Metabolic Panel] Stat Lab 08/27/24 13:05 Completed HIV Combo Stat Lab 08/27/24 13:05 Received Hepatitis C Ab Qual. W/ RFX Stat Lab 08/27/24 13:05 Received Lactic Acid Stat Lab 08/27/24 13:05 Completed Lipase Stat Lab 08/27/24 13:05 Completed UA [Urinalysis and Microscopic] Stat Lab 08/27/24 12:45 Completed Medical Decision Narrative: 68-year-old female presenting with abdominal pain. Patient states this is going on for a while, it is lower abdominal, feels like it is more in her pelvis, versus her bladder, but because of her history of Crohn's and chronic abdominal pain, went to see her family doctor today. Family doctor recommended she come to the emergency department. Because she has had numerous negative workups in the past, recommended abdominal MRI, but because they will need to go through prior authorization, patient sent to the emergency department to rule out further acute emergent intra-abdominal processes. Patient is in no acute distress on my arrival, states that it is mild, suprapubic, but intermittently diffuse. No fevers, chills, vomiting, urinary symptoms, or any other concerns. History obtained the patient's primary care provider and patient. Abdomen is soft, nontender, nondistended. She does have bilateral flank tenderness, but this is minimal on my exam. Differential includes PUD, gastritis, enteritis, gastroenteritis, pancreatitis, SBO, colitis, diverticulitis, nephrolithiasis, UTI, appendicitis, torsion, hepatitis, aortic pathology, mesenteric ischemia among others. Labs and imaging ordered. On independent interpretation, nonactionable CBC or chemistry with stable kidney function. Lipase negative, urinalysis without concern for UTI. On reevaluation, patient still resting at baseline. Unconcerning abdominal exam with unconcerning workup, I feel this is very unlikely to represent acute intra-abdominal emergency, as opposed to acute on chronic pain. On independent interpretation of CT imaging, no acute intra- abdominal findings. Because patient has follow-up for kidney ultrasound tomorrow, 08/28, recommend she keep this appointment. Because patient at baseline without signs or symptoms of clinical decompensation, deemed appropriate for discharge. Results were relayed to patient who voiced understanding and were agreeable to outpatient management and follow up. I discussed my clinical impression with patient and answered all questions. At this time, the evidence for any other entities in the differential is insufficient to warrant any further testing or ED observation. This was explained as well. Advisory was given that persistent or worsening symptoms require further evaluation. I confirmed the understanding of this discussion. E Business Specialist disclaimer Much of this encounter note is an electronic hand box coverer spoken language to printed text. Electronic hand box coverer of the spoken language may permit errors. Although I have reviewed the note, some errors may still exist. Critical Care Critical Care Time Critical Care Time: No
[2024-08-27 13:03] LABS: Appearance,Urine SL CLOUDY (Clear); Blood, Urine Negative (Negative); Color,Urine YELLOW (Yellow); Glucose,Urine (UA) Negative (Negative); Ketones,Urine Negative (Negative); Leukocyte Esterase,Urine Negative (Negative); Nitrate,Urine Negative (Negative); Protein,Urine Negative (Negative); Specific Gravity, Urine >= 1.030 (1.005-1.030); Urobilinogen,Urine 0.2 EU/dl (0.2)
[2024-08-27 13:16] LABS: Basophils % 0.5 % (0.1-2.0); Eosinophils # 0.3 K/mm3 (0.0-0.4); Eosinophils % 3.5 % (0.1-12.0); Hematocrit 35.6 % (37.0-47.0); Hemoglobin 11.7 g/dL (12.2-16.2); Lymphocytes # 2.1 K/mm3 (0.7-4.5); Lymphocytes % 27.7 % (10-50); Mean Corpuscular HGB Conc 32.9 g/dL (31.8-35.4); Mean Corpuscular Hemoglobin 28.7 pg (27.0-31.2); Mean Corpuscular Volume 87.3 fl (81-99); Mean Platelet Volume 11.6 fl (7.4-10.4); Monocytes # 0.6 K/mm3 (0.1-1.0); Monocytes % 7.7 % (1.7-9.3); Neutrophils # 4.6 K/mm3 (1.8-7.8); Neutrophils % 60.5 % (37.0-80.0); Platelet Count 290 K/mm3 (142-424); Red Blood Count 4.08 M/mm3 (4.20-5.40); Red Cell Distribution Width 12.9 % (11.5-17.5); White Blood Count 7.6 K/mm3 (4.8-10.8)
[2024-08-27 13:18] LABS: Bilirubin,Urine 1+ (Negative); RBC,Urine Occasional #/hpf (0-3)
[2024-08-27 13:25] LABS: Albumin Level 4.4 g/dl (3.5-5.0); Chloride 104 mmol/L (98-107); Potassium 3.9 mmoL/L (3.5-5.1); Sodium 135 mmol/L (136-145)
[2024-08-27 13:27] LABS: Blood Urea Nitrogen 19 mg/dl (7-17); Creatinine Clearance Estimated 58 mL/min (50-200); Estimated Glomerular Filt Rate 49 ml/min (>60); GFR (African American) 60 ML/MIN (>60)
[2024-08-27 13:28] LABS: Alanine Aminotransferase 20 U/L (12-78); Albumin/Globulin Ratio 1.6 (1.1-1.8); Alkaline Phosphatase 67 U/L (38-126); Anion Gap 8.9 mEq/L (5-15); Aspartate Amino Transferase 30 U/L (14-36); Bilirubin,Total 0.5 mg/dl (0.2-1.3); Calcium 9.2 mg/dl (8.4-10.2); Carbon Dioxide 26 mmol/L (22.0-30.0); Globulin 2.8 g/dL (1.3-3.2); Glucose 95 mg/dl (74-100); Lipase 155 U/L (23-300); Total Protein,Serum 7.2 g/dl (6.3-8.2)
[2024-08-27 13:34] LABS: Lactic Acid 0.8 mmol/L (0.7-2.1)
--- NOTE | 2024-08-27 13:38 | PC.NURSE ---
pt to CT
[2024-08-27] MEDS: SODIUM CHLORIDE 0.9% 10ML SYR (RAD ONLY) 10 ML IV (13:44)
--- NOTE | 2024-08-27 13:44 | PC.NURSE ---
pt returned from CT via wheelchair with senior pharmacy technician
[2024-08-27] MEDS: IOPAMIDOL-370 (76%);100ML BOTTLE 75 ML IV (13:45)
[2024-08-27 14:50] LABS: HIV Combo NEGATIVE (Negative)
[2024-08-27] MEDS: KETOROLAC 30MG/ML VIAL 15 MG IV (14:52)
[2024-08-27 19:09] LABS: Hepatitis C Ab Qual. W/ RFX NEGATIVE (Negative)
== END 2024-08-27 14:55 | disposition home or self-care (01) ==
PROVIDERS: Emergency Provider Emergency Medicine; PCP Internal Medicine
DX: R10.30 Lower abdominal pain, unspecified (principal)
CPT/HCPCS: 74177; 80053; 81001; 83605; 83690; 85025; 86803; 87086; 87389; 96374; 96375; 99284; J1642; J1885; Q9967

== ENCOUNTER 2024-08-27 14:13 | Outpatient (CLI) | payer MEDICARE, OTHER, SELFPAY | END 2024-08-27 23:59 | LOC: LAB.DROPOF 08-28 14:55 | PROVIDERS: PCP Internal Medicine; Visit Provider Internal Medicine | DX: R31.9 Hematuria, unspecified (principal) | CPT/HCPCS: 87086 ==

== ENCOUNTER 2024-08-28 09:35 | Outpatient (CLI) | payer MEDICARE, OTHER, SELFPAY ==
--- NOTE | 2024-08-28 09:36 | US_ITS ---
FINAL REPORT TECHNIQUE: Ultrasound images of the kidneys and bladder were obtained. CLINICAL HISTORY: .urinary frequency FINDINGS: The right kidney measures 9.0 cm in length. It is normal in echogenicity. There is no hydronephrosis. The left kidney measures 9.6 cm in length. It is normal in echogenicity. There is no hydronephrosis. IMPRESSION: Unremarkable renal ultrasound. Reviewed, Interpreted and Dictated by Santo Gerardo MD Transcribed by Ivanna Martin Authenticated and [facility]
--- NOTE | 2024-08-28 09:36 | US_ITS ---
FINAL REPORT TECHNIQUE: Limited sonographic images of the bladder were obtained. CLINICAL HISTORY: bladder pain FINDINGS: The bladder is minimally distended. Bladder volume is 25.27 mL. IMPRESSION: Bladder grossly unremarkable. Reviewed, Interpreted and Dictated by Santo Gerardo MD Transcribed by Ivanna Martin Authenticated and [facility]
== END 2024-08-28 23:59 | disposition home or self-care (01) ==
LOC: RAD 09:36
PROVIDERS: PCP Family Medicine; Visit Provider Family Medicine
DX: R39.89 Other symptoms and signs involving the genitourinary system (principal); N28.1 Cyst of kidney, acquired
CPT/HCPCS: 76770; 76857

== ENCOUNTER 2024-09-27 16:12 | Outpatient (CLI) | payer MEDICARE, OTHER, SELFPAY | END 2024-09-27 23:59 | disposition home or self-care (01) | LOC: LAB.DROPOF 09-30 11:55 | PROVIDERS: Visit Provider Family Medicine | DX: R32 Unspecified urinary incontinence (principal) | CPT/HCPCS: 87086 ==

== ENCOUNTER 2024-10-16 07:54 | Outpatient (CLI) | payer MEDICARE, OTHER, SELFPAY ==
--- NOTE | 2024-10-16 08:02 | MM_ITS ---
PROCEDURE INFORMATION: Exam: MG Bilateral Screening 3D Mammography Exam date and time: 10/16/2024 8:29 AM Age: 68 years old Clinical indication: Screening. No family history of breast cancer. TECHNIQUE: Imaging protocol: Bilateral Screening tomosynthesis and 2D mammography including computer-aided detection (CAD) when performed. COMPARISON: 1. MG MM DIG SCREENING MAMM BI W/CAD 12/14/2021 1:10 PM 2. MG MM DIG MAMM DX UNILAT LT CAD 08/24/2020 1:05 PM 3. MG MM DIG SCREENING MAMM BI W/CAD 07/30/2020 1:52 PM 4. MG DMSB DIGITAL MAMM-SCREEN BILATERAL 10/26/2011 12:37 PM FINDINGS: MAMMOGRAPHY: Breast composition: There are scattered areas of fibroglandular density. Mass: No suspicious mass. Architectural distortion: None. Calcifications: No suspicious calcifications. Asymmetric density: None. Skin thickening: None. Axillary adenopathy: None. Other findings: Port-A-Cath in the left axilla, limits evaluation and accentuates the importance of clinical breast exam. IMPRESSION: No mammographic evidence of malignancy. Annual screening is recommended unless otherwise clinically indicated. ASSESSMENT: BI-RADS Category 1: Negative.
--- NOTE | 2024-10-16 08:02 | XR_ITS ---
FINAL REPORT CLINICAL HISTORY: evaluation COMPARISON: None FINDINGS: Using L1-4, the bone mineral density of the spine is 0.826 g/cm2, corresponding to T-score of -2.0, consistent with osteopenia. Using the left hip, the bone mineral density of the femoral neck is 0.623 g/cm2, corresponding to a T-score of -2.0, consistent with osteopenia. Using the right hip, the bone mineral density of the total hip is 0.681 g/cm2, corresponding to a T-score of -2.1, consistent with osteopenia. FRAX not reported because the patient is being treated for osteoporosis. NOTE: T-score: Standard deviation compared with peak bone mass of young adult mean. *Following the recommendations of the International Society of Bone densitometry, classification of hip BMD is based on the lower of two T-scores; total hip or femoral neck. IMPRESSION: Diminished bone mineral density consistent with osteopenia. Reviewed, Interpreted and Dictated by Santo Gerardo MD Transcribed by Amarilys Bates Authenticated and [facility]
== END 2024-10-16 23:59 | disposition home or self-care (01) ==
LOC: RAD 07:55
PROVIDERS: PCP Family Medicine; Visit Provider Internal Medicine
DX: Z12.31 Encounter for screening mammogram for malignant neoplasm of breast (principal); M81.0 Age-related osteoporosis without current pathological fracture
CPT/HCPCS: 77063; 77067; 77080

== ENCOUNTER 2024-11-30 13:45 | Emergency (ER) | payer MEDICARE, OTHER, SELFPAY ==
[2024-11-30] VITALS (10 sets, daily range): BP systolic 81–127; BP diastolic 48–95; PULSE 46–62; RESP 12–19; TEMP 36.6; O2SAT 96–99; BMI 25.5
--- NOTE | 2024-11-30 13:53 | ECG_ITS ---
APPROVED REPORT Exam: Resting ECG HR:53 bpm ECG Measurements Heart Rate 53 AXES AK 225 P 63 QRSd 91 QRS 1 QT 462 T 63 QTc 445 Conclusion SINUS BRADYCARDIA WITH FIRST DEGREE AV BLOCK NONSPECIFIC T-WAVE ABNORMALITY ABNORMAL ECG Electronically signed by : JENNIE CASEY, 11/30/2024 16:23:35
--- NOTE | 2024-11-30 13:55 | [facility].EDCP ---
Discharge Plan Disposition Patient Disposition: Home, Self-Care Condition: Fair Prescriptions Prescriptions: New doxycycline hyclate 100 mg capsule 100 mg PO BID 10 Days Qty: 20 0RF ondansetron 4 mg tablet,disintegrating 4 mg PO Q8H PRN (Reason: nausea and vomiting) 5 Days Qty: 20 0RF No Action ondansetron 4 mg tablet,disintegrating 4 mg PO Q8H PRN (Reason: nausea and vomiting) Qty: 10 0RF oxybutynin chloride 5 mg tablet 5 mg PO DAILY Qty: 30 2RF celecoxib 100 mg capsule 200 mg PO BID 30 Days Qty: 120 0RF aspirin [Adult Aspirin Regimen] 81 mg tablet,delayed release (DR/EC) 81 mg PO DAILY lidocaine 5 % adhesive patch,medicated 1 patch topical DAILY Qty: 30 1RF Rx Instructions: leave on most painful area for up to 12 hrs lisinopril 20 mg tablet 20 mg PO DAILY Qty: 90 3RF alendronate 10 mg tablet 10 mg PO DAILY Qty: 30 2RF diazepam 5 mg tablet 2.5 mg PO BID PRN (Reason: anxiety) Qty: 30 0RF methocarbamol 750 mg tablet 750 mg PO TID PRN (Reason: muscle spasm) Qty: 30 0RF Referrals Follow up/Referrals: Provider,Referral, MD [Primary Care Provider] - See instructions Activity Restrictions/Add. Instructions Additional Instructions/Restrictions: Increase fluids and rest. Return to the ED if you have any worsening symptoms. Please follow-up with PCP on Monday. Clinical Impressions Clinical Impression: Community acquired pneumonia Instructions Patient Instructions: DI for Shortness of Breath Print Language Print Language: Tamazight Discharge ED Provider: Willian Prajapati HPI <Gissell Blackwell (ED), [employer]IST - Last Filed: 11/30/24 16:57> General Chief Complaint: Shortness of Breath/Dyspnea Stated Complaint: low Blood Pressure, CP Time Seen by Provider: 11/30/24 13:48 History of Present Illness HPI narrative: This is a 69-year-old female who presents to the ED today for complaint of low blood pressure starting early this morning at approximately 4:30 AM. She says her blood pressure was systolic in the 80s. She says when she takes a breath it feels like a catch . She has a port that was placed for Crohn's a couple years ago by Dr. Norris. It was last used several months ago. Patient states that she feels like she just cannot get enough air. She has had some nausea but no abdominal pain. She does complain of some chest discomfort but mostly shortness of air. Blood pressure at this time is 97/66. Patient says she has a history of CHF and she used to have swelling but she has no swelling at this time. Last time she saw Dr. Shafer was 2 years ago. Patient states that she has a lipoma on her back that is being addressed trying to find out if it is cancer. She has history of anxiety, chronic pain, depression, chronic headaches, Crohn's, vertigo. Related Data Home Medications ?Medication ?Instructions ?Recorded ?Confirmed aspirin 81 mg tablet,delayed 81 mg PO DAILY 09/27/24 11/26/24 release (Adult Aspirin Regimen) Previous Rx's ?Medication ?Instructions ?Recorded oxybutynin chloride 5 mg tablet 5 mg PO DAILY #30 tabs 08/15/24 lisinopril 20 mg tablet 20 mg PO DAILY #90 tabs 08/26/24 celecoxib 100 mg capsule 200 mg (2 x 100 mg) PO BID 30 days 09/18/24 #120 caps alendronate 10 mg tablet 10 mg PO DAILY #30 tabs 10/17/24 ondansetron 4 mg disintegrating 4 mg PO Q8H PRN nausea and 10/25/24 tablet vomiting #10 tabs diazepam 5 mg tablet 2.5 mg (1/2 x 5 mg) PO BID PRN 11/16/24 anxiety #30 tabs lidocaine 5 % topical patch 1 patch topical DAILY #30 ea 11/21/24 methocarbamol 750 mg tablet 750 mg PO TID PRN muscle spasm #30 11/29/24 tabs doxycycline hyclate 100 mg capsule 100 mg PO BID 10 days #20 caps 11/30/24 ondansetron 4 mg disintegrating 4 mg PO Q8H PRN nausea and 11/30/24 tablet vomiting 5 days #20 tabs Allergies Allergy/AdvReac Type Severity Reaction Status Date / Time cephalexin (From Keflex) Allergy Severe Difficulty Verified 11/26/24 10:53 Breathing prochlorperazine Allergy Severe Swelling Verified 11/26/24 10:53 (PROCHLORPERAZINE) of Lip/Tongue/Throat codeine (CODEINE) Allergy Unknown VOMITING / Verified 11/26/24 10:53 NAUSEA prednisone (PREDNISONE) Allergy Unknown BP ISSUES Verified 11/26/24 10:53 promethazine (From PHENERGAN) Allergy Unknown Unknown Verified 11/26/24 10:53 allergy reaction metoclopramide (From Reglan) Allergy Nausea Verified 11/26/24 10:53 hydroxyzine (From Vistaril) AdvReac Hives Verified 11/30/24 15:01 PFSH <Gissell Blackwell (ED), [employer] SPECIALIST - Last Filed: 11/30/24 16:57> PFS Disclaimer: The information contained in this section may have been updated after the patient was seen, as this information can be updated by other users. Medical History Lipoma of back Sinusitis Impacted cerumen of right ear Dizziness Sinus bradycardia Dyspnea Chest pain Insomnia Depression Anxiety Cholecystectomy planned Urinary tract infection Pneumonia Osteoporosis Allergies Edema History of anemia History of constipation Exposure to COVID-19 virus NSAIDs adverse reaction Knee effusion, right Sphincter of Oddi dysfunction Abdominal adhesions Hx of Crohn's disease This apparently was not the issue for why Angelica was admitted to the hospital recently. She was placed on sucralfate. There was some mention of ulcers but I do not see that in the discharge summary. Positive D dimer HTN (hypertension) Bilateral lower extremity edema Surgical History H/O oral surgery History of appendectomy H/O total hysterectomy History of esophagogastroduodenoscopy (EGD) History of arthroscopy of right knee Status post knee surgery Status post right knee arthroscopy with partial medial meniscectomy date of surgery May 16, 2022 History of intestinal surgery Family History Other Cancer Heart attack Social History Smoking Status: Never smoker second hand exposure: No alcohol intake: never substance use type: denies use current occupational status: disabled Travel in the last 8 weeks: None household members: none housing: apartment number of children: 2 current occupational exposures/hazards: No caffeine: Yes Have you lived/traveled outside [place] in past 30 days?: No Contact w/someone who lives/traveled outside US past 30 days?: No Exposure to someone with infectious disease in past 14 days?: No Do you have a fever (greater than 100.4 F or 38 C)?: No Have you tested positive for COVID-19: No Exposed to someone with COVID-19 in past 14 days?: No Do you have a sore throat?: No Do you have a cough?: No Do you have any weakness?: No Do you have any diarrhea?: No Are you experiencing any unusual bleeding?: No Do you have any muscle aches/pain?: No Do you have any abdominal pain?: No Are you experiencing loss of taste or smell?: No Other Medical History Have you received the Flu Vaccine for this season: No Have you received the Pneumonia Vaccine: No <Gissell Blackwell (ED), [employer] SPECIALIST - Last Filed: 11/30/24 16:57> ROS Obtained: Yes Systems reviewed as appropriate & no additional complaints except as documented Constitutional Constitutional: Reports as per HPI Physical Exam <Gissell Blackwell (ED), [employer]PER[employer] SPECIALIST - Last Filed: 11/30/24 16:57> General General appearance: alert and in no apparent distress Head Head exam: atraumatic and normocephalic Eye Eye exam: Present PERRL and EOMI ENT ENT exam: Present normal exam, normal oropharynx and mucous membranes moist Neck Neck exam: Present full ROM and trachea midline Respiratory Respiratory exam: Present normal lung sounds bilaterally Cardiovascular Cardiovascular exam: Present regular rate, normal rhythm, normal heart sounds, +S1 and +S2 Abdominal Exam Abdominal exam: Present soft and normal bowel sounds Extremities Exam Extremities exam: Present full ROM and normal capillary refill Neurological Exam Neurological exam: Present alert and oriented X3 Skin Skin exam: Present warm, dry and intact HEART Score <Gissell Blackwell (ED), [employer]PER[employer] SPECIALIST - Last Filed: 11/30/24 16:57> HEART Score HEART Score assessment performed?: Yes History (anamnesis): Moderately suspicious ECG: Non-specific disturbance Age: >65 years Risk factors: 1-2 risk factors Troponin: </= normal limit HEART Score: 5 <Willian Prajapati MD - Last Filed: 11/30/24 17:02> HEART Score HEART Score: 5 <Dallas Valles MD - Last Filed: 12/01/24 17:14> HEART Score HEART Score: 5 Critical Care <Gissell Blackwell (ED), [employer]PER[employer] SPECIALIST - Last Filed: 11/30/24 16:57> Critical Care Time Critical Care Time: No Medical Decision Making <Gissell Blackwell (ED), [employer]PER[employer] SPECIALIST - Last Filed: 11/30/24 16:57> Medical Records Medical records reviewed: Yes I reviewed the patient's medical records. Grant Inquiry Pt receiving controlled substance: No Grant was queried for this patient: No Vital Signs Vital Signs: 11/30/24 13:56 11/30/24 14:11 11/30/24 14:17 Temperature 97.9 F Temperature Source Oral Pulse Rate 62 51 L Pulse Rate [Right Radial] 57 L Respiratory Rate 19 13 12 Blood Pressure 81/48 L 91/55 L Blood Pressure [Right Arm] 97/66 L Blood Pressure Mean [Right Arm] 76 Blood Pressure Source Blood Pressure Source [Right Arm] Automatic Cuff Blood Pressure Position Blood Pressure Position [Right Arm] Supine 02 Sat by Pulse Oximetry 97 98 97 Oxygen Delivery Method Room Air Room Air Room Air 11/30/24 14:46 11/30/24 15:07 11/30/24 15:30 Temperature Temperature Source Pulse Rate 58 L 47 L 46 L Pulse Rate [Right Radial] Respiratory Rate 15 14 Blood Pressure 96/58 L 127/66 113/64 Blood Pressure [Right Arm] Blood Pressure Mean [Right Arm] Blood Pressure Source Blood Pressure Source [Right Arm] Blood Pressure Position Blood Pressure Position [Right Arm] 02 Sat by Pulse Oximetry 96 98 98 Oxygen Delivery Method Room Air Room Air Room Air 11/30/24 16:01 11/30/24 16:30 11/30/24 16:58 Temperature 97.8 F Temperature Source Oral Pulse Rate 54 L 54 L 54 L Pulse Rate [Right Radial] Respiratory Rate 19 12 19 Blood Pressure 121/92 H 104/59 L 125/95 H Blood Pressure [Right Arm] Blood Pressure Mean [Right Arm] Blood Pressure Source Automatic Cuff Blood Pressure Source [Right Arm] Blood Pressure Position Supine Blood Pressure Position [Right Arm] 02 Sat by Pulse Oximetry 99 98 Oxygen Delivery Method Room Air Room Air Room Air 11/30/24 17:00 Temperature Temperature Source Pulse Rate 57 L Pulse Rate [Right Radial] Respiratory Rate 16 Blood Pressure 114/76 Blood Pressure [Right Arm] Blood Pressure Mean [Right Arm] Blood Pressure Source Blood Pressure Source [Right Arm] Blood Pressure Position Blood Pressure Position [Right Arm] 02 Sat by Pulse Oximetry 99 Oxygen Delivery Method Room Air Lab Data Labs: Lab Results 11/30/24 13:58: VBG pH 7.38, VBG pCO2 36.5, VBG pO2 73.3 H, VBG HCO3 20.9 L, VBG Total CO2 22.0 L, VBG O2 Saturation 93.4 H, VBG Base Excess -4.3 L, VBG Lactic Acid 1.2 11/30/24 14:08: WBC 7.4, RBC 3.59 L, Hgb 10.6 L, Hct 31.8 L, MCV 88.6, MCH 29.5, MCHC 33.3, RDW 13.8, Plt Count 266, MPV 12.1 H, Neut % (Auto) 57.6, Lymph % (Auto) 28.6, [place] % (Auto) 7.8, Eos % (Auto) 5.0, Baso % (Auto) 0.7, Neut # (Auto) 4.3, Lymph # (Auto) 2.1, [place] # (Auto) 0.6, Eos # (Auto) 0.4, Baso # (Auto) 0.1, Sodium 139, Potassium 4.3, Chloride 109 H, Carbon Dioxide 24, Anion Gap 10.3, BUN 29 H, Creatinine 1.10 H, Estimated Creat Clear 58, Estimated GFR 49 L, Est GFR ( Amer) 60, Glucose 100, Calcium 9.2, Magnesium 1.8, Total Bilirubin 0.4, AST 31, ALT 20, Alkaline Phosphatase 48, Troponin I < 0.01, NT-Pro-B Natriuret Pep 61.1, Total Protein 7.0, Albumin 3.9, Globulin 3.1, Albumin/Globulin Ratio 1.3, Lipase 215 11/30/24 14:15: SARS-CoV-2 (PCR) Not detected, Influenza A Untype (PCR) Not detected, Influenza Type B (PCR) Not detected 11/30/24 14:24: Urine Color Yellow, Urine Appearance Clear, Urine pH 5.5, Ur Specific [place] 1.030, Urine Protein Negative, Urine Glucose (UA) Negative, Urine Ketones Negative, Urine Blood Negative, Urine Nitrate Negative, Urine Bilirubin Negative, Urine Urobilinogen 0.2, Ur Leukocyte Esterase Negative, Urine RBC None, Urine WBC 3-5, Ur Squamous Epith Cells 3-5, Urine Bacteria 1+, Hyaline Casts Occasional 11/30/24 15:49: Troponin I < 0.01 11/30/24 14:08 11/30/24 14:08 Response Orders (Tests/Meds): ED MEDICATIONS Discontinued Medications Generic Name Dose Route Start Last Admin Trade Name Dylon PRN Reason Stop Dose Admin Acetaminophen 1,000 mg 11/30/24 15:10 11/30/24 15:16 Acetaminophen 1,000mg/100ml Vial IV 11/30/24 15:11 1,000 mg ONCE ONE Administration Sodium Chloride 1,000 mls @ 999 mls/hr 11/30/24 13:56 11/30/24 14:15 Sod Chlor 0.9% 1000ml Bag IV 11/30/24 14:56 999 mls/hr .Q1H1M ONE Administration Magnesium Sulfate 2 gm in 50 mls @ 50 mls/hr 11/30/24 13:56 11/30/24 14:16 Magnesium Sulfate 2gm/50ml Premix IV 11/30/24 14:55 50 mls/hr ONCE ONE Administration Lactated Ringer's 2,290 mls @ 1,145 mls/hr 11/30/24 14:18 11/30/24 16:25 Lactated Ringer's 1000 Ml Bag 30 ml/kg infuse over 2 hr (2290 ml) 11/30/24 16:17 1,145 mls/hr IV Administration .Q2H ONE Protocol Iopamidol 70 ml 11/30/24 14:42 11/30/24 14:43 Iopamidol-370 (76%);100ml Bottle IV 11/30/24 14:43 70 ml ONCE ONE Administration Methylprednisolone Sodium Succinate 125 mg 11/30/24 14:00 11/30/24 14:16 Methylprednisolone Sod Succ 125mg Vial IV 11/30/24 14:01 125 mg ONCE ONE Administration Ondansetron HCl 4 mg 11/30/24 14:01 11/30/24 14:16 Ondansetron 4mg/2ml Vial IV 11/30/24 14:02 4 mg ONCE ONE Administration Sodium Chloride 10 ml 11/30/24 14:42 11/30/24 14:43 Sodium Chloride 0.9% 10ml Syr (Rad Only) IV 11/30/24 14:43 10 ml ONCE ONE Administration Sodium Chloride 50 ml 11/30/24 14:42 11/30/24 14:43 0.9 % Sodium Chloride 50 Ml Vial IV 11/30/24 14:43 50 ml ONCE ONE Administration ORDERS Category Date Time Status CTA Chest [CT angio chest PE protocol] Stat Cat Scan 11/30/24 13:56 Completed BNP [NT Pro Brain Natriuretic Pep.] Stat Lab 11/30/24 14:08 Completed CBC [Complete Blood Count Auto Diff] Stat Lab 11/30/24 14:08 Completed Comprehensive Metabolic Panel Stat Lab 11/30/24 14:08 Completed Lipase Stat Lab 11/30/24 14:08 Completed Magnesium Stat Lab 11/30/24 14:08 Completed Rapid PCR Covid and Flu A/B Stat Lab 11/30/24 14:15 Completed Trop I [Troponin I] Stat Lab 11/30/24 14:08 Completed Trop I [Troponin I] Stat Lab 11/30/24 15:49 Completed Urinalysis and Microscopic Stat Lab 11/30/24 14:24 Completed Blood Culture Stat Micro 11/30/24 14:22 Results Venous Blood Gas Stat RT 11/30/24 13:58 Completed MDM Narrative Medical Decision Narrative: Insert review patient is a 69-year-old female presenting to the emergency department for evaluation of low blood pressure that started early this morning. Patient says that when she takes a breath it catches. Patient does have PMH of CHF and Crohn's. She does have a port that she has been using for Crohn's. She says when she has her Crohn's flares she needs fluids. It has not been used in months.. Patient presents with blood pressure of 97/66. She has had some blood pressures that have been low. She has received IV fluids throughout her ER visit. Her blood pressure has been responsive to fluids. Differential diagnosis includes hypovolemia, sepsis, hypotension, CHF exacerbation among others. Workup will be conducted with hematologic labs, specific imaging including a CTA to rule out PE. Initial inventions include fluid bolus, Zofran, magnesium to help with breathing. Initial workup reviewed by me and is unremarkable for CHF exacerbation. Patient's troponins were both negative. Imaging informally interpreted by me and remarkable for nothing acute. Please see CT report for formal radiology read. Upon repeat evaluation patient blood pressure has improved and is currently 121/92. She is still receiving fluids. I discussed with and will discharge with doxycycline for pneumonia. Discussed with patient and she will increase fluid intake as much as she can. Patient will follow-up with PCP. Return to the ER with any problems or concerns. Patient safe for discharge home. <Willian Prajapati MD - Last Filed: 11/30/24 17:02> Vital Signs Vital Signs: 11/30/24 13:56 11/30/24 14:11 11/30/24 14:17 Temperature 97.9 F Temperature Source Oral Pulse Rate 62 51 L Pulse Rate [Right Radial] 57 L Respiratory Rate 19 13 12 Blood Pressure 81/48 L 91/55 L Blood Pressure [Right Arm] 97/66 L Blood Pressure Mean [Right Arm] 76 Blood Pressure Source Blood Pressure Source [Right Arm] Automatic Cuff Blood Pressure Position Blood Pressure Position [Right Arm] Supine 02 Sat by Pulse Oximetry 97 98 97 Oxygen Delivery Method Room Air Room Air Room Air 11/30/24 14:46 11/30/24 15:07 11/30/24 15:30 Temperature Temperature Source Pulse Rate 58 L 47 L 46 L Pulse Rate [Right Radial] Respiratory Rate 15 14 Blood Pressure 96/58 L 127/66 113/64 Blood Pressure [Right Arm] Blood Pressure Mean [Right Arm] Blood Pressure Source Blood Pressure Source [Right Arm] Blood Pressure Position Blood Pressure Position [Right Arm] 02 Sat by Pulse Oximetry 96 98 98 Oxygen Delivery Method Room Air Room Air Room Air 11/30/24 16:01 11/30/24 16:30 11/30/24 16:58 Temperature 97.8 F Temperature Source Oral Pulse Rate 54 L 54 L 54 L Pulse Rate [Right Radial] Respiratory Rate 19 12 19 Blood Pressure 121/92 H 104/59 L 125/95 H Blood Pressure [Right Arm] Blood Pressure Mean [Right Arm] Blood Pressure Source Automatic Cuff Blood Pressure Source [Right Arm] Blood Pressure Position Supine Blood Pressure Position [Right Arm] 02 Sat by Pulse Oximetry 99 98 Oxygen Delivery Method Room Air Room Air Room Air 11/30/24 17:00 Temperature Temperature Source Pulse Rate 57 L Pulse Rate [Right Radial] Respiratory Rate 16 Blood Pressure 114/76 Blood Pressure [Right Arm] Blood Pressure Mean [Right Arm] Blood Pressure Source Blood Pressure Source [Right Arm] Blood Pressure Position Blood Pressure Position [Right Arm] 02 Sat by Pulse Oximetry 99 Oxygen Delivery Method Room Air Lab Data Labs: Lab Results 11/30/24 13:58: VBG pH 7.38, VBG pCO2 36.5, VBG pO2 73.3 H, VBG HCO3 20.9 L, VBG Total CO2 22.0 L, VBG O2 Saturation 93.4 H, VBG Base Excess -4.3 L, VBG Lactic Acid 1.2 11/30/24 14:08: WBC 7.4, RBC 3.59 L, Hgb 10.6 L, Hct 31.8 L, MCV 88.6, MCH 29.5, MCHC 33.3, RDW 13.8, Plt Count 266, MPV 12.1 H, Neut % (Auto) 57.6, Lymph % (Auto) 28.6, [place] % (Auto) 7.8, Eos % (Auto) 5.0, Baso % (Auto) 0.7, Neut # (Auto) 4.3, Lymph # (Auto) 2.1, [place] # (Auto) 0.6, Eos # (Auto) 0.4, Baso # (Auto) 0.1, Sodium 139, Potassium 4.3, Chloride 109 H, Carbon Dioxide 24, Anion Gap 10.3, BUN 29 H, Creatinine 1.10 H, Estimated Creat Clear 58, Estimated GFR 49 L, Est GFR ( Amer) 60, Glucose 100, Calcium 9.2, Magnesium 1.8, Total Bilirubin 0.4, AST 31, ALT 20, Alkaline Phosphatase 48, Troponin I < 0.01, NT-Pro-B Natriuret Pep 61.1, Total Protein 7.0, Albumin 3.9, Globulin 3.1, Albumin/Globulin Ratio 1.3, Lipase 215 11/30/24 14:15: SARS-CoV-2 (PCR) Not detected, Influenza A Untype (PCR) Not detected, Influenza Type B (PCR) Not detected 11/30/24 14:24: Urine Color Yellow, Urine Appearance Clear, Urine pH 5.5, Ur Specific [place] 1.030, Urine Protein Negative, Urine Glucose (UA) Negative, Urine Ketones Negative, Urine Blood Negative, Urine Nitrate Negative, Urine Bilirubin Negative, Urine Urobilinogen 0.2, Ur Leukocyte Esterase Negative, Urine RBC None, Urine WBC 3-5, Ur Squamous Epith Cells 3-5, Urine Bacteria 1+, Hyaline Casts Occasional 11/30/24 15:49: Troponin I < 0.01 Response Orders (Tests/Meds): ED MEDICATIONS Discontinued Medications Generic Name Dose Route Start Last Admin Trade Name Morrisq PRN Reason Stop Dose Admin Acetaminophen 1,000 mg 11/30/24 15:10 11/30/24 15:16 Acetaminophen 1,000mg/100ml Vial IV 11/30/24 15:11 1,000 mg ONCE ONE Administration Sodium Chloride 1,000 mls @ 999 mls/hr 11/30/24 13:56 11/30/24 14:15 Sod Chlor 0.9% 1000ml Bag IV 11/30/24 14:56 999 mls/hr .Q1H1M ONE Administration Magnesium Sulfate 2 gm in 50 mls @ 50 mls/hr 11/30/24 13:56 11/30/24 14:16 Magnesium Sulfate 2gm/50ml Premix IV 11/30/24 14:55 50 mls/hr ONCE ONE Administration Lactated Ringer's 2,290 mls @ 1,145 mls/hr 11/30/24 14:18 11/30/24 16:25 Lactated Ringer's 1000 Ml Bag 30 ml/kg infuse over 2 hr (2290 ml) 11/30/24 16:17 1,145 mls/hr IV Administration .Q2H ONE Protocol Iopamidol 70 ml 11/30/24 14:42 11/30/24 14:43 Iopamidol-370 (76%);100ml Bottle IV 11/30/24 14:43 70 ml ONCE ONE Administration Methylprednisolone Sodium Succinate 125 mg 11/30/24 14:00 11/30/24 14:16 Methylprednisolone Sod Succ 125mg Vial IV 11/30/24 14:01 125 mg ONCE ONE Administration Ondansetron HCl 4 mg 11/30/24 14:01 11/30/24 14:16 Ondansetron 4mg/2ml Vial IV 11/30/24 14:02 4 mg ONCE ONE Administration Sodium Chloride 10 ml 11/30/24 14:42 11/30/24 14:43 Sodium Chloride 0.9% 10ml Syr (Rad Only) IV 11/30/24 14:43 10 ml ONCE ONE Administration Sodium Chloride 50 ml 11/30/24 14:42 11/30/24 14:43 0.9 % Sodium Chloride 50 Ml Vial IV 11/30/24 14:43 50 ml ONCE ONE Administration ORDERS Category Date Time Status CTA Chest [CT angio chest PE protocol] Stat Cat Scan 11/30/24 13:56 Completed BNP [NT Pro Brain Natriuretic Pep.] Stat Lab 11/30/24 14:08 Completed CBC [Complete Blood Count Auto Diff] Stat Lab 11/30/24 14:08 Completed Comprehensive Metabolic Panel Stat Lab 11/30/24 14:08 Completed Lipase Stat Lab 11/30/24 14:08 Completed Magnesium Stat Lab 11/30/24 14:08 Completed Rapid PCR Covid and Flu A/B Stat Lab 11/30/24 14:15 Completed Trop I [Troponin I] Stat Lab 11/30/24 14:08 Completed Trop I [Troponin I] Stat Lab 11/30/24 15:49 Completed Urinalysis and Microscopic Stat Lab 11/30/24 14:24 Completed Blood Culture Stat Micro 11/30/24 14:22 Results Venous Blood Gas Stat RT 11/30/24 13:58 Completed MDM Narrative Medical Decision Narrative: Insert review patient is a 69-year-old female presenting to the emergency department for evaluation of low blood pressure that started early this morning. Patient says that when she takes a breath it catches. Patient does have PMH of CHF and Crohn's. She does have a port that she has been using for Crohn's. She says when she has her Crohn's flares she needs fluids. It has not been used in months.. Patient presents with blood pressure of 97/66. She has had some blood pressures that have been low. She has received IV fluids throughout her ER visit. Her blood pressure has been responsive to fluids. Differential diagnosis includes hypovolemia, sepsis, hypotension, CHF exacerbation among others. Workup will be conducted with hematologic labs, specific imaging including a CTA to rule out PE. Initial inventions include fluid bolus, Zofran, magnesium to help with breathing. Initial workup reviewed by me and is unremarkable for CHF exacerbation. Patient's troponins were both negative. Imaging informally interpreted by me and remarkable for nothing acute. Please see CT report for formal radiology read. Upon repeat evaluation patient blood pressure has improved and is currently 121/92. She is still receiving fluids. I discussed with and will discharge with doxycycline for pneumonia. Discussed with patient and she will increase fluid intake as much as she can. Patient will follow-up with PCP. Return to the ER with any problems or concerns. Patient safe for discharge home. I was consulted by the LOTUS, and we discussed the complexity of the problems being addressed. I approved the treatment and management plan for this patient's care in the emergency department, thus performing a substantive portion of the medical decision making. CT imaging informally visualized by me, there appears to be scattered mild bilateral opacities, no saddle embolism. Formal read shows no evidence of pulmonary embolism to the segmental level mild groundglass opacities in the lingula and both lower lobes which may represent mild multifocal pneumonia. Patient does not have any significant cough but does not have any evidence of heart failure with a BNP within normal limits does not appear volume overloaded. Patient will be treated with antibiotics for presumed atypical pneumonia. Willian Prajapati MD <Dallas Valles MD - Last Filed: 12/01/24 17:14> Vital Signs Vital Signs: 11/30/24 13:56 11/30/24 14:11 11/30/24 14:17 Temperature 97.9 F Temperature Source Oral Pulse Rate 62 51 L Pulse Rate [Right Radial] 57 L Respiratory Rate 19 13 12 Blood Pressure 81/48 L 91/55 L Blood Pressure [Right Arm] 97/66 L Blood Pressure Mean [Right Arm] 76 Blood Pressure Source Blood Pressure Source [Right Arm] Automatic Cuff Blood Pressure Position Blood Pressure Position [Right Arm] Supine 02 Sat by Pulse Oximetry 97 98 97 Oxygen Delivery Method Room Air Room Air Room Air 11/30/24 14:46 11/30/24 15:07 11/30/24 15:30 Temperature Temperature Source Pulse Rate 58 L 47 L 46 L Pulse Rate [Right Radial] Respiratory Rate 15 14 Blood Pressure 96/58 L 127/66 113/64 Blood Pressure [Right Arm] Blood Pressure Mean [Right Arm] Blood Pressure Source Blood Pressure Source [Right Arm] Blood Pressure Position Blood Pressure Position [Right Arm] 02 Sat by Pulse Oximetry 96 98 98 Oxygen Delivery Method Room Air Room Air Room Air 11/30/24 16:01 11/30/24 16:30 11/30/24 16:58 Temperature 97.8 F Temperature Source Oral Pulse Rate 54 L 54 L 54 L Pulse Rate [Right Radial] Respiratory Rate 19 12 19 Blood Pressure 121/92 H 104/59 L 125/95 H Blood Pressure [Right Arm] Blood Pressure Mean [Right Arm] Blood Pressure Source Automatic Cuff Blood Pressure Source [Right Arm] Blood Pressure Position Supine Blood Pressure Position [Right Arm] 02 Sat by Pulse Oximetry 99 98 Oxygen Delivery Method Room Air Room Air Room Air 11/30/24 17:00 Temperature Temperature Source Pulse Rate 57 L Pulse Rate [Right Radial] Respiratory Rate 16 Blood Pressure 114/76 Blood Pressure [Right Arm] Blood Pressure Mean [Right Arm] Blood Pressure Source Blood Pressure Source [Right Arm] Blood Pressure Position Blood Pressure Position [Right Arm] 02 Sat by Pulse Oximetry 99 Oxygen Delivery Method Room Air Lab Data Labs: Lab Results 11/30/24 13:58: VBG pH 7.38, VBG pCO2 36.5, VBG pO2 73.3 H, VBG HCO3 20.9 L, VBG Total CO2 22.0 L, VBG O2 Saturation 93.4 H, VBG Base Excess -4.3 L, VBG Lactic Acid 1.2 11/30/24 14:08: WBC 7.4, RBC 3.59 L, Hgb 10.6 L, Hct 31.8 L, MCV 88.6, MCH 29.5, MCHC 33.3, RDW 13.8, Plt Count 266, MPV 12.1 H, Neut % (Auto) 57.6, Lymph % (Auto) 28.6, [place] % (Auto) 7.8, Eos % (Auto) 5.0, Baso % (Auto) 0.7, Neut # (Auto) 4.3, Lymph # (Auto) 2.1, [place] # (Auto) 0.6, Eos # (Auto) 0.4, Baso # (Auto) 0.1, Sodium 139, Potassium 4.3, Chloride 109 H, Carbon Dioxide 24, Anion Gap 10.3, BUN 29 H, Creatinine 1.10 H, Estimated Creat Clear 58, Estimated GFR 49 L, Est GFR ( Amer) 60, Glucose 100, Calcium 9.2, Magnesium 1.8, Total Bilirubin 0.4, AST 31, ALT 20, Alkaline Phosphatase 48, Troponin I < 0.01, NT-Pro-B Natriuret Pep 61.1, Total Protein 7.0, Albumin 3.9, Globulin 3.1, Albumin/Globulin Ratio 1.3, Lipase 215 11/30/24 14:15: SARS-CoV-2 (PCR) Not detected, Influenza A Untype (PCR) Not detected, Influenza Type B (PCR) Not detected 11/30/24 14:24: Urine Color Yellow, Urine Appearance Clear, Urine pH 5.5, Ur Specific [place] 1.030, Urine Protein Negative, Urine Glucose (UA) Negative, Urine Ketones Negative, Urine Blood Negative, Urine Nitrate Negative, Urine Bilirubin Negative, Urine Urobilinogen 0.2, Ur Leukocyte Esterase Negative, Urine RBC None, Urine WBC 3-5, Ur Squamous Epith Cells 3-5, Urine Bacteria 1+, Hyaline Casts Occasional 11/30/24 15:49: Troponin I < 0.01 Response Orders (Tests/Meds): ED MEDICATIONS Discontinued Medications Generic Name Dose Route Start Last Admin Trade Name Freq PRN Reason Stop Dose Admin Acetaminophen 1,000 mg 11/30/24 15:10 11/30/24 15:16 Acetaminophen 1,000mg/100ml Vial IV 11/30/24 15:11 1,000 mg ONCE ONE Administration Sodium Chloride 1,000 mls @ 999 mls/hr 11/30/24 13:56 11/30/24 14:15 Sod Chlor 0.9% 1000ml Bag IV 11/30/24 14:56 999 mls/hr .Q1H1M ONE Administration Magnesium Sulfate 2 gm in 50 mls @ 50 mls/hr 11/30/24 13:56 11/30/24 14:16 Magnesium Sulfate 2gm/50ml Premix IV 11/30/24 14:55 50 mls/hr ONCE ONE Administration Lactated Ringer's 2,290 mls @ 1,145 mls/hr 11/30/24 14:18 11/30/24 16:25 Lactated Ringer's 1000 Ml Bag 30 ml/kg infuse over 2 hr (2290 ml) 11/30/24 16:17 1,145 mls/hr IV Administration .Q2H ONE Protocol Iopamidol 70 ml 11/30/24 14:42 11/30/24 14:43 Iopamidol-370 (76%);100ml Bottle IV 11/30/24 14:43 70 ml ONCE ONE Administration Methylprednisolone Sodium Succinate 125 mg 11/30/24 14:00 11/30/24 14:16 Methylprednisolone Sod Succ 125mg Vial IV 11/30/24 14:01 125 mg ONCE ONE Administration Ondansetron HCl 4 mg 11/30/24 14:01 11/30/24 14:16 Ondansetron 4mg/2ml Vial IV 11/30/24 14:02 4 mg ONCE ONE Administration Sodium Chloride 10 ml 11/30/24 14:42 11/30/24 14:43 Sodium Chloride 0.9% 10ml Syr (Rad Only) IV 11/30/24 14:43 10 ml ONCE ONE Administration Sodium Chloride 50 ml 11/30/24 14:42 11/30/24 14:43 0.9 % Sodium Chloride 50 Ml Vial IV 11/30/24 14:43 50 ml ONCE ONE Administration ORDERS Category Date Time Status CTA Chest [CT angio chest PE protocol] Stat Cat Scan 11/30/24 13:56 Completed BNP [NT Pro Brain Natriuretic Pep.] Stat Lab 11/30/24 14:08 Completed CBC [Complete Blood Count Auto Diff] Stat Lab 11/30/24 14:08 Completed Comprehensive Metabolic Panel Stat Lab 11/30/24 14:08 Completed Lipase Stat Lab 11/30/24 14:08 Completed Magnesium Stat Lab 11/30/24 14:08 Completed Rapid PCR Covid and Flu A/B Stat Lab 11/30/24 14:15 Completed Trop I [Troponin I] Stat Lab 11/30/24 14:08 Completed Trop I [Troponin I] Stat Lab 11/30/24 15:49 Completed Urinalysis and Microscopic Stat Lab 11/30/24 14:24 Completed Blood Culture Stat Micro 11/30/24 14:22 Results Venous Blood Gas Stat RT 11/30/24 13:58 Completed MDM Narrative Medical Decision Narrative: Insert review patient is a 69-year-old female presenting to the emergency department for evaluation of low blood pressure that started early this morning. Patient says that when she takes a breath it catches. Patient does have PMH of CHF and Crohn's. She does have a port that she has been using for Crohn's. She says when she has her Crohn's flares she needs fluids. It has not been used in months.. Patient presents with blood pressure of 97/66. She has had some blood pressures that have been low. She has received IV fluids throughout her ER visit. Her blood pressure has been responsive to fluids. Differential diagnosis includes hypovolemia, sepsis, hypotension, CHF exacerbation among others. Workup will be conducted with hematologic labs, specific imaging including a CTA to rule out PE. Initial inventions include fluid bolus, Zofran, magnesium to help with breathing. Initial workup reviewed by me and is unremarkable for CHF exacerbation. Patient's troponins were both negative. Imaging informally interpreted by me and remarkable for nothing acute. Please see CT report for formal radiology read. Upon repeat evaluation patient blood pressure has improved and is currently 121/92. She is still receiving fluids. I discussed with and will discharge with doxycycline for pneumonia. Discussed with patient and she will increase fluid intake as much as she can. Patient will follow-up with PCP. Return to the ER with any problems or concerns. Patient safe for discharge home. I was consulted by the LOTUS, and we discussed the complexity of the problems being addressed. I approved the treatment and management plan for this patient's care in the emergency department, thus performing a substantive portion of the medical decision making. CT imaging informally visualized by me, there appears to be scattered mild bilateral opacities, no saddle embolism. Formal read shows no evidence of pulmonary embolism to the segmental level mild groundglass opacities in the lingula and both lower lobes which may represent mild multifocal pneumonia. Patient does not have any significant cough but does not have any evidence of heart failure with a BNP within normal limits does not appear volume overloaded. Patient will be treated with antibiotics for presumed atypical pneumonia. MD Dallas Oreilly MD
--- NOTE | 2024-11-30 13:56 | CT_ITS ---
PROCEDURE INFORMATION: Exam: CTA Chest With Contrast Exam date and time: 11/30/2024 2:41 PM Age: 69 years old Clinical indication: Shortness of breath TECHNIQUE: Imaging protocol: Computed tomographic angiography of the chest with contrast. Exam focused on the arteries. 3D rendering (Not supervised by radiologist): MIP and/or 3D reconstructed images were created by the technologist. Radiation optimization: All CT scans at this facility use at least one of these dose optimization techniques: automated exposure control; mA and/or kV adjustment per patient size (includes targeted exams where dose is matched to clinical indication); or iterative reconstruction. Contrast material: ISOVUE; Contrast volume: 70 ml; Contrast route: INTRAVENOUS (IV); COMPARISON: CT ANGIO CHEST 05/15/2024 5:50 PM FINDINGS: Tubes, catheters and devices: MediPort terminates in the superior vena cava Pulmonary arteries: No evidence of pulmonary embolus to the segmental level. Aorta: No aneurysm of the aorta. No dissection of the aorta. Lungs: Mild ground-glass opacities in the lingula and both lower lobes may represent mild multifocal pneumonia Pleural spaces: Unremarkable. No pneumothorax. No pleural effusion. Heart: Unremarkable. No cardiomegaly. No pericardial effusion. Coronary arteries: Coronary artery calcifications may indicate coronary artery disease. Lymph nodes: Pathologic node anterior to the radha 12 x 12 mm Gallbladder and biliary ducts: Cholecystectomy Bones/joints: Unremarkable. No acute fracture. Soft tissues: Unremarkable. IMPRESSION: 1. No evidence of pulmonary embolus to the segmental level. 2. No aneurysm of the aorta. 3. No dissection of the aorta. 4 Mild ground-glass opacities in the lingula and both lower lobes may represent mild multifocal pneumonia
[2024-11-30] MEDS: 0.9 % SODIUM CHLORIDE 1000ML 1,000 ML 999 ML IV (14:15)
[2024-11-30 14:16] LABS: Basophils # 0.1 K/mm3 (0-0.2); Basophils % 0.7 % (0.1-2.0); Eosinophils # 0.4 Kmm3 (0.0-0.4); Hematocrit 31.8 % (37.0-47.0); Hemoglobin 10.6 g/dL (12.2-16.2); Lymphocytes # 2.1 K/mm3 (0.7-4.5); Lymphocytes % 28.6 % (10-50); Mean Corpuscular HGB Conc 33.3 g/dL (31.8-35.4); Mean Corpuscular Hemoglobin 29.5 pg (27.0-31.2); Mean Corpuscular Volume 88.6 fl (81-99); Mean Platelet Volume 12.1 fl (7.4-10.4); Monocytes # 0.6 K/mm3 (0.1-1.0); Monocytes % 7.8 % (1.7-9.3); Neutrophils # 4.3 K/mm3 (1.8-7.8); Neutrophils % 57.6 % (37.0-80.0); Nucleated Red Blood Cells # 0 10^3/uL; Nucleated Red Blood Cells % 0 %; Platelet Count 266 K/mm3 (142-424); Red Blood Count 3.59 M/mm3 (4.20-5.40); Red Cell Distribution Width 13.8 % (11.5-17.5); Red Cell Distribution Width-SD 44.7 fL; White Blood Count 7.4 K/mm3 (4.8-10.8)
[2024-11-30] MEDS: METHYLPREDNISOLONE SOD SUCC 125MG VIAL 125 MG IV (14:16)
[2024-11-30] MEDS: ONDANSETRON 4MG/2ML VIAL 4 MG IV (14:16)
[2024-11-30] MEDS: MAGNESIUM SULFATE IN WATER 2 GM/50 ML PIGGYBACK IV (14:16)
[2024-11-30 14:17] LABS: Lactate Venous 1.2 mmol/L (0.4-2.0); VBG Base Excess -4.3 mmol/L (-2.4-2.3); VBG HCO3 20.9 mmol/L (23-30); VBG Oxygen Saturation 93.4 % (50-70); VBG PCO2 36.5 mmol/L (35-51); VBG PH 7.38 mmol/L (7.31-7.41); VBG PO2 73.3 mmol/L (28-40)
[2024-11-30 14:17] LABS: Coronavirus 19, PCR Not Detected (NotDetected); Influenza A, PCR Not Detected (NotDetected); Influenza B, PCR Not Detected (NotDetected)
[2024-11-30 14:23] LABS: Albumin Level 3.9 g/dl (3.5-5.0); Chloride 109 mmol/L (98-107); Sodium 139 mmol/L (136-145)
[2024-11-30 14:24] LABS: Potassium 4.3 mmoL/L (3.5-5.1)
[2024-11-30 14:26] LABS: Alanine Aminotransferase 20 U/L (12-78); Albumin/Globulin Ratio 1.3 (1.1-1.8); Alkaline Phosphatase 48 U/L (38-126); Anion Gap 10.3 mEq/L (5-15); Aspartate Amino Transferase 31 U/L (14-36); Bilirubin,Total 0.4 mg/dl (0.2-1.3); Blood Urea Nitrogen 29 mg/dl (7-17); Calcium 9.2 mg/dl (8.4-10.2); Carbon Dioxide 24 mmol/L (22.0-30.0); Creatinine Clearance Estimated 58 mL/min (50-200); Estimated Glomerular Filt Rate 49 ml/min (>60); GFR (African American) 60 ML/MIN (>60); Globulin 3.1 g/dL (1.3-3.2); Glucose 100 mg/dl (74-100); Lipase 215 U/L (23-300)
[2024-11-30 14:27] LABS: Magnesium 1.8 mg/dl (1.6-2.3)
[2024-11-30 14:31] LABS: Microscopic, Urine URINE MICROSCOPIC (MICROSCOPIC)
[2024-11-30 14:32] LABS: Appearance,Urine CLEAR (Clear); Bilirubin,Urine Negative (Negative); Blood, Urine Negative (Negative); Color,Urine YELLOW (Yellow); Glucose,Urine (UA) Negative (Negative); Ketones,Urine Negative (Negative); Leukocyte Esterase,Urine Negative (Negative); Nitrate,Urine Negative (Negative); PH,Urine 5.5 (5.0-8.5); Protein,Urine Negative (Negative); Urobilinogen,Urine 0.2 EU/dl (0.2)
--- NOTE | 2024-11-30 14:40 | PC.NURSE ---
warm blanket given, call light in reach. no concerns at this time
[2024-11-30] MEDS: 0.9 % SODIUM CHLORIDE 50 ML VIAL IV (14:43)
[2024-11-30] MEDS: SODIUM CHLORIDE 0.9% 10ML SYR (RAD ONLY) 10 ML IV (14:43)
[2024-11-30] MEDS: IOPAMIDOL-370 (76%);100ML BOTTLE 70 ML IV (14:43)
[2024-11-30 14:49] LABS: Bacteria,Urine 1+ /lpf; Hyaline Casts,Urine Occasional #/lpf (0)
[2024-11-30 14:50] LABS: Troponin I < 0.01 ng/ml (0.00-0.034)
--- NOTE | 2024-11-30 15:07 | ECG_ITS ---
APPROVED REPORT Exam: Resting ECG HR:48 bpm ECG Measurements Heart Rate 48 AXES WA 208 P 50 QRSd 101 QRS 22 QT 529 T 49 QTc 495 Conclusion SINUS BRADYCARDIA WITH OCCASIONAL SUPRAVENTRICULAR PREMATURE COMPLEXES POSSIBLE LATERAL MYOCARDIAL INFARCTION , PROBABLY OLD [30 ms Q WAVE IN I/aVL/V5/V6] BORDERLINE ECG Electronically signed by : JENNIE CASEY, 11/30/2024 16:23:54
--- NOTE | 2024-11-30 15:12 | PC.NURSE ---
patient called out reporting chest pain provider notified and EKG done
[2024-11-30] MEDS: ACETAMINOPHEN 1,000MG/100ML VIAL 1000 MG IV (15:16)
[2024-11-30 15:49] LABS: NT Pro Brain Natriuretic Pep. 61.1 pg/mL (0-125)
[2024-11-30] MEDS: LACTATED RINGERS 1145 ML IV (16:25)
[2024-11-30 16:34] LABS: Troponin I < 0.01 ng/ml (0.00-0.034)
== END 2024-11-30 17:00 | disposition home or self-care (01) ==
PROVIDERS: Nurse Practitioner; Emergency Provider Emergency Medicine
DX: R07.89 Other chest pain (principal); J18.9 Pneumonia, unspecified organism; R06.02 Shortness of breath; I95.9 Hypotension, unspecified
CPT/HCPCS: 71275; 80053; 81001; 82803; 83690; 83735; 83880; 84484; 85025; 87040; 87636; 93005; 96361; 96365; 96375; 99285; J0131; J2405; J2919; J3475; J7030; J7120; Q9967

== ENCOUNTER 2024-12-04 13:12 | Outpatient (CLI) | payer MEDICARE, OTHER, SELFPAY ==
--- NOTE | 2024-12-04 13:13 | XR_ITS ---
FINAL REPORT CLINICAL HISTORY: pneumonia COMPARISON: 11/30/2024 FINDINGS: 2 views of the chest were obtained . There is a left-sided port with the tip in the SVC. The heart is normal in size. The mediastinum is within normal limits. The lungs are clear. There is no pneumothorax. Osseous structures are unremarkable. IMPRESSION: No acute cardiopulmonary process. Reviewed, Interpreted and Dictated by Angeline Lee MD Transcribed by Monae Francis Authenticated and [facility]
--- NOTE | 2024-12-04 13:45 | US_ITS ---
FINAL REPORT CLINICAL HISTORY: lump on upper back FINDINGS: Limited sonographic images were obtained of the soft tissues of the back of the area of palpable abnormality. There is a hypoechoic mass in the area of interest measuring 4.7 x 1.3 x 5.4 cm. This is similar in echogenicity to the other subcutaneous fat. It is relatively avascular. No other abnormality identified. IMPRESSION: Mass in the area of interest likely lipoma. Reviewed, Interpreted and Dictated by Angeline Lee MD Transcribed by Amarilys Bates Authenticated and [facility]
== END 2024-12-04 23:59 | disposition home or self-care (01) ==
LOC: RAD 13:13
PROVIDERS: PCP Family Medicine; Visit Provider Family Medicine
DX: D17.1 Benign lipomatous neoplasm of skin and subcutaneous tissue of trunk (principal); J18.9 Pneumonia, unspecified organism
CPT/HCPCS: 71046; 76604

== ENCOUNTER 2024-12-16 11:58 | Outpatient (CLI) | payer MEDICARE, OTHER, SELFPAY ==
--- NOTE | 2024-12-16 13:00 | CA_ITS ---
APPROVED REPORT EXAM: Comprehensive 2D, Doppler, and color-flow Echocardiogram Brewery Worker: Roseanna Benitez CRT Ht: 5 ft 5 in Wt: 177lbs BSA: 1.88 BP: 152/100 mmHg Indications: Shortness of Breath, Dizziness and Vertigo, Peripheral Edema, Hypertension/HDD 2D Dimensions LA Volume 43.20 mL LA Volume Index 22.50 mL/m2 (M/F) 16-34 M-Mode Dimensions RVDd 3.67 cm (0.9-2.6) LA Diam 4.04 cm (1.9-4.0) LVDd 4.27 cm (3.5-5.7) LVDs 2.39 cm (3.5-5.7) IVSd 1.67 cm (0.6-1.1) PWd 0.82 cm (0.6-1.1) EF (Teich) 75.50% FS 44.00% EDV (Teich) 81.70 mL ESV (Teich) 20.00 mL LV Diastology E Decel Time 313 (160-240 msec) E/A Ratio 0.66 MED A' 13.30 cm/s LAT A' 13.60 cm/s Aortic Valve AO Peak GR. 8.10 mmHg Mitral Valve MV A Velocity 99.0 (40-130 cm/s) E/A Ratio 0.66 Pulmonary Valve PV Peak Velocity 92.0 (50-150 cm/s) Tricuspid Valve TR P. Velocity 280.00 cm/s RAP Estimate 10.00 mmHg RVSP 41.30 mmHg Left Ventricle The left ventricle is normal size. The left ventricular systolic function is normal. The left ventricular ejection fraction is within the normal range. There is increased LV wall thickness. There is normal LV segmental wall motion. The left ventricular diastolic function is normal. LVEF is 55%. Right Ventricle The right ventricle is normal size. The right ventricular systolic function is normal. Atria Left atrium is mildly dilated. Right atrium is mildly dilated. There is no Doppler evidence of interatrial shunt. Aortic Valve Aortic valve is mildly thickened. Trace aortic regurgitation. There is no aortic valvular stenosis. Mitral Valve The mitral valve is normal in structure. No evidence of mitral valve stenosis. Mild mitral regurgitation. Tricuspid Valve Tricuspid valve is grossly normal in structure and function. Trace tricuspid regurgitation. There is insufficient TR jet to estimate RVSP. Pulmonic Valve The pulmonary valve is normal in structure. Trace pulmonic regurgitation. Great Vessels The aortic root is normal in size. IVC is normal in size and collapses >50% with inspiration. Pericardium There is no pericardial effusion. Other Information Study Quality: Fair Conclusion Normal biventricular systolic function. Mild biatrial dilation. Mild MR. Electronically signed by : Soni Cary MD 12/23/2024 13:10:41
== END 2024-12-16 23:59 | disposition home or self-care (01) ==
PROVIDERS: PCP Family Medicine; Visit Provider Internal Medicine
DX: I51.7 Cardiomegaly (principal); I34.0 Nonrheumatic mitral (valve) insufficiency; R07.9 Chest pain, unspecified; R55 Syncope and collapse; R42 Dizziness and giddiness
CPT/HCPCS: 93306

== ENCOUNTER 2024-12-24 10:01 | Outpatient (CLI) | payer MEDICARE, OTHER, SELFPAY ==
[2024-12-24 10:36] LABS: Basophils # 0.1 K/mm3 (0-0.2); Basophils % 0.9 % (0.1-2.0); Eosinophils # 0.3 Kmm3 (0.0-0.4); Eosinophils % 5.4 % (0.1-12.0); Hematocrit 36.3 % (37.0-47.0); Hemoglobin 11.6 g/dL (12.2-16.2); Immature Granulocytes # 0.01 10^3uL; Immature Granulocytes % 0.2 %; Lymphocytes # 1.8 K/mm3 (0.7-4.5); Lymphocytes % 32.4 % (10-50); Mean Corpuscular Hemoglobin 29.1 pg (27.0-31.2); Mean Corpuscular Volume 91.2 fl (81-99); Mean Platelet Volume 12.3 fl (7.4-10.4); Monocytes # 0.4 K/mm3 (0.1-1.0); Monocytes % 6.3 % (1.7-9.3); Neutrophils # 3.1 K/mm3 (1.8-7.8); Neutrophils % 54.8 % (37.0-80.0); Nucleated Red Blood Cells # 0 10^3/uL; Nucleated Red Blood Cells % 0 %; Platelet Count 251 K/mm3 (142-424); Red Blood Count 3.98 M/mm3 (4.20-5.40); Red Cell Distribution Width 13.4 % (11.5-17.5); Red Cell Distribution Width-SD 45.4 fL; White Blood Count 5.6 K/mm3 (4.8-10.8)
[2024-12-24 10:50] LABS: Chloride 112 mmol/L (98-107); Potassium 4.1 mmoL/L (3.5-5.1); Sodium 140 mmol/L (136-145)
[2024-12-24 10:53] LABS: Anion Gap 10.1 mEq/L (5-15); Blood Urea Nitrogen 18 mg/dl (7-17); Carbon Dioxide 22 mmol/L (22.0-30.0); Estimated Glomerular Filt Rate 55 ml/min (>60); GFR (African American) 67 ML/MIN (>60)
[2024-12-24 10:54] LABS: Glucose 83 mg/dl (74-100)
== END 2024-12-24 23:59 | disposition home or self-care (01) ==
LOC: PREOP 10:02
PROVIDERS: PCP Family Medicine; Visit Provider Surgery
DX: D17.1 Benign lipomatous neoplasm of skin and subcutaneous tissue of trunk (principal)
CPT/HCPCS: 80048; 85025

== ENCOUNTER 2024-12-30 08:28 | Day surgery (SDC) | payer MEDICARE, OTHER, SELFPAY ==
[2024-12-24 11:43] VITALS: BMI 27.9
[2024-12-30] VITALS (8 sets, daily range): BP systolic 112–161; BP diastolic 67–83; PULSE 61–73; RESP 12–20; TEMP 36.4–36.6; O2SAT 95–100
--- NOTE | 2024-12-30 10:06 | EXP.ANES.CKL ---
[facility] Disclaimer: The information contained in this section may have been updated after the patient was seen, as this information can be updated by other users. Medical History (Updated 12/26/24 @ 08:50 by Colin Smith MD) Chronic kidney disease (HFpEF) heart failure with preserved ejection fraction Abnormal chest CT Schatzki's ring Lipoma of back Sinusitis Impacted cerumen of right ear Dizziness Sinus bradycardia Dyspnea Chest pain Insomnia Depression Anxiety Cholecystectomy planned Urinary tract infection Pneumonia Osteoporosis Allergies Edema History of anemia History of constipation Exposure to COVID-19 virus NSAIDs adverse reaction Knee effusion, right Sphincter of Oddi dysfunction Abdominal adhesions Hx of Crohn's disease Positive D dimer HTN (hypertension) Bilateral lower extremity edema Surgical History H/O oral surgery History of appendectomy H/O total hysterectomy History of esophagogastroduodenoscopy (EGD) History of arthroscopy of right knee Status post knee surgery History of intestinal surgery Family History Other Cancer Heart attack Social History Smoking Status: Never smoker second hand exposure: No alcohol intake: never substance use type: denies use current occupational status: disabled Travel in the last 8 weeks?: None household members: none housing: apartment number of children: 2 current occupational exposures/hazards: No caffeine: Yes Have you lived/traveled outside US in past 30 days?: No Contact w/someone who lives/traveled outside US past 30 days?: No Exposure to someone with infectious disease in past 14 days?: No Do you have a fever (greater than 100.4 F or 38 C)?: No Have you tested positive for COVID-19?: No Exposed to someone with COVID-19 in past 14 days?: No Do you have a sore throat?: No Do you have a cough?: No Do you have any weakness?: No Do you have any diarrhea?: No Are you experiencing any unusual bleeding?: No Do you have any muscle aches/pain?: No Do you have any abdominal pain?: No Are you experiencing loss of taste or smell?: No [facility] Anesthesia Checklist Patient Identification Patient Identification: Arm Band and Verbal (Name & ) Structural Data Admitted From: Home Planned Operative Procedure/s: mass of back removal Consent for Planned Operative Procedure(s) Verified: Yes Verified Documents: Surgical Consent NPO Status Verified Time NPO: 00:00 Chart Verification Results Verified: ECG Additional verifications Anesthesia Reactions: No Hx Blood Transfusions: Yes Blood Transfusion Reaction: No Airway Assessment Mallampati Score:: Class II Dentition: Edentulous Neurological Assessment Level of Consciousness: Awake, Alert and Appropriate Anesthesia Plan Anesthesia Plan: Verified Anesthesia Type: General
[2024-12-30] MEDS: CLINDAMYCIN PHOSPHATE/D5W 900 MG/50 ML PIGGYBACK 100 MG IV (10:30)
[2024-12-30] MEDS: LIDOCAINE 1% 20ML MDV 20 ML (10:42)
[2024-12-30] MEDS: ROPIVACAINE 0.5% 30ML VIAL 150 MG (10:42)
--- NOTE | 2024-12-30 11:01 | EXP.OP.NOTE ---
Date of procedure: 12/30/24 Pre-op Diagnosis:: Right back lipoma Post-op Diagnosis:: Same Procedure performed:: Excision of subcutaneous lipoma from the right back (excisional length 5 cm) with intermediate complexity closure Surgeon:: Luis Alberto Norris MD Anesthesia: local and LMA Estimated blood loss (mL): 5 Operative findings:: Consistent with benign subcutaneous lipoma Operative note:: Consent was obtained patient was taken the operating room. She was positioned in supine position. General anesthesia was induced via LMA. She was positioned in the left lateral position. The area was prepped and draped in the standard surgical fashion. Lesion was easily palpable consistent with small benign subcutaneous lipoma. Boundaries were marked with a skin marker. Skin was marked with a skin marker for planned incision along skin lines. Skin incision was made. Dissection was carried down through subcutaneous tissues with electrocautery. Relatively well-circumscribed somewhat lobulated fatty tissue consistent with lipoma was encountered. Using blunt dissection with the use of electrocautery it was dissected free from the normal subcutaneous tissues. It was sent off as a specimen. Wound was irrigated. Hemostasis was achieved with limited use of electrocautery. Subcutaneous fascia was closed with a couple of interrupted 2-0 Vicryl sutures. Subdermal tissues were closed with interrupted 3-0 Vicryl. Skin was closed with 4-0 Monocryl in a subcuticular fashion. Clean dry sterile dressing was applied. Condition: stable Disposition: PACU Complications:: None immediately.
--- NOTE | 2024-12-30 11:09 | P.PNANES_ITS ---
[facility] Anesthesia Record Part I Anesthesia Record I Intake, IV Amount: 500 Hydration: Adequate Estimated blood loss (mL): 0 Urine output (mL): 0 Blood Products used (#): none Blood Pressure: 128/72 SaO2: 99 Pulse Rate: 73 Airway Patency: Patent Respiratory Rate: 14 Temperature: 97.5 F Patient is:: Drowsy and Stable Stable to PACU at:: 11:05
--- NOTE | 2024-12-31 10:48 | EXP.ANES.II ---
[facility] Anesthesia Record Part II Anesthesia Record Part II Discharge Time: 12:20 Destination: Surgical Day Care (OP Surgery) PACU nurse assessment reviewed?: Yes Patient Condition:: Good Anesthesia Complications:: None Swallowing reflex intact?: Yes Airway Patency: Patent Cyanosis?: No Blood Pressure: 161/72 SaO2: 98 Respiratory Rate: 16 Pulse Rate: 67 Temperature: 98.0 F Mental Status: Alert & Oriented Pain level:: 0 Nausea and/or vomitting:: None Intake, IV Amount: 0 Hydration: Adequate
[2024-12-31 10:50] VITALS: BP 161/72; PULSE 67; RESP 16; TEMP 36.7; O2SAT 98
== END 2024-12-30 12:20 | disposition home or self-care (01) ==
PROVIDERS: PCP Family Medicine; Visit Provider Surgery
PROC: (CPT 21931; principal; 2024-12-30 10:15)
DX: D17.1 Benign lipomatous neoplasm of skin and subcutaneous tissue of trunk (principal); R52 Pain, unspecified
CPT/HCPCS: 21931; 96374; J0736; J1100; J2250; J2405; J3010

== ENCOUNTER 2025-01-30 09:16 | Outpatient (CLI) | payer MEDICARE, OTHER, SELFPAY ==
[2025-01-30 16:43] LABS: Free T4 (Free Thyroxine) 0.86 ng/dl (0.78-2.19)
[2025-01-30 17:32] LABS: Thyroid Stimulating Hormone 0.42 uIU/mL (0.465-4.68)
[2025-01-31 17:11] LABS: H. pylori Breath Test Negative (Negative)
--- OUTSIDE RECORDS SUMMARY | 2025-02-03 09:27 | XMS_ITS | Clinical Summary ---
Author Organization [facility] Address [address] [place] [id number] Care Team Providers Care Crew Team Member Name Role Phone Unavailable Primary Care Provider [...] therelease of HIV test results or diagnoses. [id number] Social History Tobacco Use Types Packs/Day Years Used Date Smoking Tobacco: Never Assessed Comments Unknown Sex and Gender Information Value Date Recorded Sex Assigned at Not on file Legal Sex Female 10:53 PM EST Gender Identity Not on file Sexual Orientation Not on file Plan of Treatment Not on file
--- OUTSIDE RECORDS SUMMARY | 2025-02-03 09:27 | XMS_ITS | Clinical Summary ---
Author Organization Healthcare Address [address] [place] [address] Care Team Providers Care Locomotive Oiler Name Role Phone Reuben Fong MD Primary Care Provider [phone] Social History Tobacco Use Types Packs/Day Years [...] (2 of 2 - PCV) 01/03/2019 01/03/2018 [id number] Vaccine (2 - season) 2024 11/18/2020 [facility]-Influenza [...] Insurance [employer] MED[employer]ID Care Teams Locomotive Oiler Relationship Specialty Start Date End Date Reuben Fong MD [address] [place] [address] [place] [id number] PCP - General 12/25/20
[2025-02-04 19:28] LABS: Metanephrine Plasma < 25.0 pg/mL (0.0-88.0); Normetanephrine Plasma 44.5 pg/mL (0.0-285.2)
== END 2025-01-30 23:59 | disposition home or self-care (01) ==
LOC: LAB.DROPOF 02-03 09:18
PROVIDERS: PCP Family Medicine; Visit Provider Internal Medicine
DX: K50.919 Crohn's disease, unspecified, with unspecified complications (principal); R11.2 Nausea with vomiting, unspecified; I10 Essential (primary) hypertension; R00.1 Bradycardia, unspecified; R06.02 Shortness of breath; R25.1 Tremor, unspecified
CPT/HCPCS: 36591; 83013; 83835; 84439; 84443; 85007; 85014; 85018; 85048; 85049; 85378; 86140; 93270; J1642

== ENCOUNTER 2025-01-30 12:46 | Outpatient (CLI) | payer MEDICARE, OTHER, SELFPAY ==
--- OUTSIDE RECORDS SUMMARY | 2025-01-30 12:57 | XMS_ITS | Clinical Summary ---
Author Organization Healthcare Address [address] [place] [address] Care Team Providers Care Light Industrial Supervisor Name Role Phone Reuben Fong MD Primary Care Provider [phone] Social History Tobacco Use Types Packs/Day Years Used Date Smoking Tobacco: Never Comments Unknown Sex and Gender Information Value Date Recorded Sex Assigned at Not on file Legal Sex Female 7:52 PM EDT Gender Identity Not on file Sexual Orientation Not on file Plan of Treatment Health Maintenance Due Date Last Done Comments [facility]-Bone Density Scan 1955 [facility]-Depression Screening 1955 [facility]-/Child/Adol SDOH Screenings 1955 [facility]- SDOH Screenings 10/27/1973 [facility]-Adult SDOH Screenings 10/27/1973 [facility]-DTaP,Tdap,and Td Vaccine s (1 - Tdap) 10/20/1996 10/19/1996 CT Colonography 10/27/2000 Colonoscopy 10/27/2000 FIT-DNA 10/27/2000 FIT 10/27/2000 FOBT 10/27/2000 Sigmoidoscopy 10/27/2000 [facility]-Colorectal Cancer Screening 10/27/2000 [facility]-Zoster Vaccines (2 of 3) 07/10/2017 05/15/2017 [facility]-Pneumococcal Vaccine: 50 + Years (2 of 2 - PCV) 01/03/2019 01/03/2018 [id number] Vaccine (2 - season) 2024 11/18/2020 [facility]-Influenza Vaccine (Seaso n Ended) 2025 06/01/2020, 05/15/2017 [facility]-RSV Vaccine: 60+ Years o r (1 - 1-dose 75+ series) 10/27/2030 HPV Vaccines Aged Out No longer eligi ble based on patient's age to complete this topic [facility]-HIB Vaccines Aged Out No longer e ligible based on patient's age to complete this topic [facility]-Hepatitis A Vaccines Aged Out No longer eligible based on patient's age to complete this topic [facility]-IPV Vaccines Aged Out No longer e ligible based on patient's age to complete this topic [facility]-Rotavirus Vaccines Aged Out No lo nger eligible based on patient's age to complete this topic Insurance [employer] MEDICAID Care Teams Light Industrial Supervisor Relationship Specialty Start Date End Date Reuben Fong MD [address] [place] [address] [place] [id number] PCP - General 12/25/20
--- OUTSIDE RECORDS SUMMARY | 2025-01-30 12:57 | XMS_ITS | Clinical Summary ---
Author Organization [facility] Address [address] [place] [id number] Care Team Providers Care Machine Tester Name Role Phone Unavailable Primary Care Provider Unavailabl e Source Comments This information has been disclosed to you from confidential records protectedfrom disclosure by state law. You shall make no further disclosure of thisinformation without the specific, written, and informed release of theindividual to whom it pertains, or as otherwise permitted by law. A generalauthorization for the release of medical or other information is not sufficientfor the purposes of therelease of HIV test results or diagnoses. [id number] Social History Tobacco Use Types Packs/Day Years Used Date Smoking Tobacco: Never Assessed Comments Unknown Sex and Gender Information Value Date Recorded Sex Assigned at Not on file Legal Sex Female 10:53 PM EST Gender Identity Not on file Sexual Orientation Not on file Plan of Treatment Not on file
[2025-01-30] MEDS: SODIUM CHLORIDE 0.9% 10ML FLUSH SYRINGE 10 ML IV (13:10)
[2025-01-30 13:22] LABS: MANUAL DIFFERENTIAL MANUAL DIFFERENTIAL (MANUAL DIFF)
[2025-01-30 13:27] LABS: Basophils # 0.1 K/mm3 (0-0.2); Basophils % 0.8 % (0.1-2.0); Eosinophils # 0.3 Kmm3 (0.0-0.4); Eosinophils % 4.7 % (0.1-12.0); Hematocrit 32.3 % (37.0-47.0); Hemoglobin 10.5 g/dL (12.2-16.2); Lymphocytes # 1.9 K/mm3 (0.7-4.5); Lymphocytes % 31.2 % (10-50); Mean Corpuscular HGB Conc 32.5 g/dL (31.8-35.4); Mean Corpuscular Hemoglobin 28.9 pg (27.0-31.2); Mean Platelet Volume 12.3 fl (7.4-10.4); Monocytes # 0.5 K/mm3 (0.1-1.0); Monocytes % 7.6 % (1.7-9.3); Neutrophils # 3.4 K/mm3 (1.8-7.8); Neutrophils % 55.5 % (37.0-80.0); Platelet Count 223 K/mm3 (142-424); Red Blood Count 3.63 M/mm3 (4.20-5.40); Red Cell Distribution Width 12.7 % (11.5-17.5); White Blood Count 6.2 K/mm3 (4.8-10.8)
[2025-01-30 13:49] LABS: C-Reactive Protein 2.7 mg/L (0-4)
[2025-01-30 15:03] LABS: Eosinophils % 7 % (0-3); Lymphocytes % 26 % (10-50); Monocytes % 6 % (2-9); Neutrophils % 61 % (42-76); Platelet Estimate Normal; RBC Morphology Normal; Total Cells Counted 100
== END 2025-01-30 13:15 | disposition home or self-care (01) ==
LOC: INF 12:53
PROVIDERS: PCP Family Medicine; Visit Provider Family Medicine
DX: K50.919 Crohn's disease, unspecified, with unspecified complications (principal); R00.2 Palpitations; R00.1 Bradycardia, unspecified
CPT/HCPCS: 36591; 85007; 85014; 85018; 85048; 85049; 86140; 93270; J1642

== ENCOUNTER 2025-02-07 12:42 | Emergency (ER) | payer MEDICARE, OTHER, SELFPAY ==
[2025-02-07] VITALS (12 sets, daily range): BP systolic 139–196; BP diastolic 65–100; PULSE 44–59; RESP 10–17; TEMP 36.6–37.1; O2SAT 94–100; BMI 29.5
--- NOTE | 2025-02-07 12:37 | ECG_ITS ---
APPROVED REPORT Exam: Resting ECG HR:52 bpm ECG Measurements Heart Rate 52 AXES QRSd 90 QRS 1 QT 451 T 47 QTc 431 Conclusion ATRIAL FIBRILLATION WITH SLOW VENTRICULAR RESPONSE ABNORMAL RHYTHM ECG UNCONFIRMED REPORT Electronically signed by : VIVIEN ZAMAN, 02/08/2025 06:34:56
--- OUTSIDE RECORDS SUMMARY | 2025-02-07 12:50 | XMS_ITS | Clinical Summary ---
Author Organization Healthcare Address [address] [place] [address] Care Team Providers Care Stores Assistant Name Role Phone Reuben Fong MD Primary Care Provider [phone] Social History Tobacco Use Types Packs/Day Years [...] (2 of 2 - PCV) 01/03/2019 01/03/2018 [id number] Vaccine (2 - season) 2024 11/18/2020 UKY-Influenza [...] Insurance [employer] Care Teams Stores Assistant Relationship Specialty Start Date End Date Reuben Fong MD [address] [place] [address] [place]ger [id number] PCP - General 12/25/20
--- OUTSIDE RECORDS SUMMARY | 2025-02-07 12:50 | XMS_ITS | Clinical Summary ---
Author Organization [facility] Address [address] [place] [id number] Care Team Providers Care Consultative Sales Associate Name Role Phone Unavailable Primary Care Provider [...] therelease of HIV test results or diagnoses. [id number] Social History Tobacco Use Types Packs/Day Years Used Date Smoking Tobacco: Never Assessed Comments Unknown Sex and Gender Information Value Date Recorded Sex Assigned at Not on file Legal Sex Female 10:53 PM EST Gender Identity Not on file Sexual Orientation Not on file Plan of Treatment Not on file
--- NOTE | 2025-02-07 12:56 | CT_ITS ---
FINAL REPORT TECHNIQUE: Thin section axial CT with contrast with multiplanar reconstruction This study was performed with techniques to keep radiation doses as low as reasonably achievable, (ALARA). Individualized dose reduction techniques using automated exposure control or adjustment of mA and/or kV according to the patient's size were employed. CLINICAL HISTORY: CP/SOA/Dimer+ COMPARISON: 11/30/2024 FINDINGS: CTA CHEST: CTA CHEST: Pulmonary vessels enhance in normal fashion without evidence of embolism. Thoracic aorta shows no dissection or aneurysm. No pulmonary mass or infiltrate is present. Mild dependent atelectasis is noted. There is no significant pleural effusion. There is no significant pericardial effusion. No mediastinal or hilar adenopathy is present. IMPRESSION: 1. No evidence of pulmonary embolism Reviewed, Interpreted and Dictated by Santo Gerardo MD Transcribed by Nahomi Hunter Authenticated and [facility]
--- NOTE | 2025-02-07 12:58 | ED_ITS ---
Discharge Plan Disposition Patient Disposition: Home, Self-Care Prescriptions Prescriptions: No Action furosemide 20 mg tablet 20 mg PO DAILY Qty: 30 2RF spironolactone [Aldactone] 25 mg tablet 12.5 mg PO DAILY Qty: 90 3RF aspirin [Adult Aspirin Regimen] 81 mg tablet,delayed release (DR/EC) 81 mg PO DAILY albuterol sulfate 90 mcg/actuation HFA aerosol inhaler 2 puff inhalation Q4-6H PRN (Reason: shortness of breath or wheezing) Qty: 18 2RF fluticasone propionate [Allergy Relief (fluticasone)] 50 mcg/actuation spray,suspension 1 spray intranasal BID Qty: 16 2RF Rx Instructions: administer into each nostril 2x/day lisinopril 20 mg tablet 20 mg PO DAILY Qty: 90 3RF alendronate 10 mg tablet 10 mg PO DAILY Qty: 30 2RF methocarbamol 750 mg tablet 750 mg PO TID PRN (Reason: muscle spasm) Qty: 30 0RF albuterol sulfate 2.5 mg /3 mL (0.083 %) solution for nebulization 2.5 mg inhalation Q4-6H PRN (Reason: shortness of breath or wheezing) Qty: 75 2RF oxybutynin chloride 5 mg tablet See Rx Instructions .ROUTE .COMPLEX Qty: 30 2RF Dose Instruction: TAKE ONE TABLET BY MOUTH EVERY DAY Rx Instructions: TAKE ONE TABLET BY MOUTH EVERY DAY diazepam 5 mg tablet 2.5 mg PO BID PRN (Reason: anxiety) Qty: 30 0RF escitalopram oxalate [Lexapro] 10 mg tablet 10 mg PO DAILY Qty: 30 2RF benzonatate 100 mg capsule 100 mg PO TID PRN (Reason: cough) Qty: 60 0RF diazepam 5 mg tablet 5 mg PO BID PRN (Reason: anxiety) Qty: 60 0RF ondansetron 4 mg tablet,disintegrating 4 mg PO Q8H PRN (Reason: nausea and vomiting) 5 Days Qty: 20 0RF Referrals Follow up/Referrals: Brendan Buck MD [Staff Physician, Cardiology] - See instructions Colin Smith MD [Primary Care Provider, Family Practice] - See instructions Activity Restrictions/Add. Instructions Additional Instructions/Restrictions: At this time it was felt you are safe to be discharged home. If new or worsening symptoms please do not hesitate to return the emergency department. Please call and schedule an appoint with Dr. Buck as soon as you are able. Clinical Impressions Clinical Impression: Dyspnea, Chronic chest pain Print Language Print Language: Pakistani Discharge ED Provider: Rajendra Mann <Willian Prajapati MD - Last Filed: 02/07/25 15:45> General Chief Complaint: Chest Pain Stated Complaint: chest pain Time Seen by Provider: 02/07/25 12:44 Mode of Arrival: Ambulatory Source of Information: Patient Description of Symptoms (Recalled from ER Triage Doc. by RN): Patient presents to the ER with chest pain and shortness of breath that has been going on for over a week, states she saw joint cutter last week on 03/01/25 and had labs drawn, and then was sent from PCP office today. History of Present Illness HPI narrative: Patient is a 69-year-old female with past medical history of CKD, hypertension, takes furosemide 20 mg every day who presents emergency department for evaluation of acute on chronic dyspnea as a transfer from Dr. Smith's office. Patient has had substernal chest pressure over the last month has had worsening dyspnea that is worse when she lays down but generally happens all the time. Chest pain is not modifiable, persistent. EKG at Dr. Smith's office concerning for slow atrial flutter. She presents here for continued evaluation of her dyspnea. Please note that above description of symptoms, in this electronic medical record under categorization of recalled from ER triage doctor by RN are reflective of an initial nursing assessment, however, is not reflective of my full history and physical exam that was personally taken and clarified. Consequentially, this preceding description of symptoms, which may include the patient's categorized chief complaint in the EMR, do not reflect my personal clinical impression, and the ultimate description of history of present illness and patient stated complaints should be deferred to this section of the note. Unless stated otherwise or congruent with this section of the note, additional signs, symptoms, or incongruence should be interpreted as inaccurate with my clinical impression. Related Data Home Medications ?Medication ?Instructions ?Recorded ?Confirmed aspirin 81 mg tablet,delayed 81 mg PO DAILY 09/27/24 0 02/07/25 release (Adult Aspirin Regimen) Previous Rx's ?Medication ?Instructions ?Recorded lisinopril 20 mg tablet 20 mg PO DAILY #90 tabs 08/14 11/05 alendronate 10 mg tablet 10 mg PO DAILY #30 tabs 03/0 02/05 methocarbamol 750 mg tablet 750 mg PO TID PRN muscle s pasm #30 11/29/24 tabs ondansetron 4 mg disintegrating 4 mg PO Q8H PRN nausea and 11/30/24 tablet vomiting 5 days #20 tabs albuterol sulfate 90 mcg/actuation 2 puff inhalation Q 4-6H PRN 12/03/24 aerosol inhaler shortness of breath or wheez ing #18 grams albuterol sulfate 2.5 mg/3 mL 2.5 mg (3 mL) inhalation Q4-6H PRN 12/04/24 (0.083 %) solution for nebulization shortness of breat h or wheezing #75 mL furosemide 20 mg tablet 20 mg PO DAILY #30 tabs 11/13 04/07 oxybutynin chloride 5 mg tablet See Rx Instructions .R oute 12/13/24 .COMPLEX #30 tabs spironolactone 25 mg tablet 12.5 mg (1/2 x 25 mg) PO D AILY #90 12/24/24 (Aldactone) tabs fluticasone propionate 50 1 spray intranasal BID #16 g anatoliy 01/10/25 mcg/actuation nasal spray,suspension (Allergy Relief (fluticasone)) diazepam 5 mg tablet 2.5 mg (1/2 x 5 mg) PO BID P RN 01/15/25 anxiety #30 tabs escitalopram oxalate 10 mg tablet 10 mg PO DAILY #30 t abs 01/27/25 (Lexapro) benzonatate 100 mg capsule 100 mg PO TID PRN cough #60 caps 01/29/25 diazepam 5 mg tablet 5 mg PO BID PRN anxiety #60 tabs 02/03/25 Allergies Allergy/AdvReac Type Severity Reaction Status Date / Time cephalexin (From Keflex) Allergy Severe Difficulty Verified 02/07/25 11:36 Breathing prochlorperazine Allergy Severe Swelling Verified 02/07/25 11:36 (PROCHLORPERAZINE) of Lip/Tongue/Throat codeine (CODEINE) Allergy Unknown VOMITING / Verified 02/07/25 11:36 NAUSEA prednisone (PREDNISONE) Allergy Unknown BP ISSUES Verified 02/07/25 11:36 promethazine (From PHENERGAN) Allergy Unknown Unknown Verified 02/07/25 11:36 allergy reaction metoclopramide (From Reglan) Allergy Nausea Verified 02/07/25 11:36 hydroxyzine (From Vistaril) AdvReac Hives Verified 02/07/25 11:36 [facility] <Willian Prajapati MD - Last Filed: 02/07/25 15:45> [facility] Disclaimer: The information contained in this section may have been updated after the patient was seen, as this information can be updated by other users. Medical History Shakiness SOB (shortness of breath) Palpitations Bradycardia Screening for colon cancer Breast cancer screening by mammogram Mammogram done 10/2024 Crohn's disease Community acquired pneumonia Chronic kidney disease (HFpEF) heart failure with preserved ejection fraction Abnormal chest CT Schatzki's ring Sinus bradycardia Insomnia Depression Anxiety Osteoporosis Allergies History of anemia History of constipation Sphincter of Oddi dysfunction HTN (hypertension) Bilateral lower extremity edema Surgical History Lipoma of back Status post cholecystectomy H/O oral surgery History of appendectomy H/O total hysterectomy History of esophagogastroduodenoscopy (EGD) History of arthroscopy of right knee Status post knee surgery Status post right knee arthroscopy with partial medial meniscectomy date of surgery May 16, 2022 History of intestinal surgery Family History Other Cancer Heart attack Social History Smoking Status: Never smoker second hand exposure: No alcohol intake: never substance use type: denies use current occupational status: disabled Travel in the last 8 weeks?: None household members: none housing: apartment number of children: 2 current occupational exposures/hazards: No caffeine: Yes Have you lived/traveled outside [place] in past 30 days?: No Contact w/someone who lives/traveled outside US past 30 days?: No Exposure to someone with infectious disease in past 14 days?: No Do you have a fever (greater than 100.4 F or 38 C)?: No Have you tested positive for COVID-19?: No Exposed to someone with COVID-19 in past 14 days?: No Do you have a sore throat?: No Do you have a cough?: No Do you have any weakness?: No Do you have any diarrhea?: No Are you experiencing any unusual bleeding?: No Do you have any muscle aches/pain?: No Do you have any abdominal pain?: No Are you experiencing loss of taste or smell?: No Other Medical History Have you received the Flu Vaccine for this season: No Have you received the Pneumonia Vaccine: Yes <Willian Prajapati MD - Last Filed: 02/07/25 15:45> ROS Obtained: Yes Systems reviewed as appropriate & no additional complaints except as documented Physical Exam <Willian Prajapati MD - Last Filed: 02/07/25 15:45> General General appearance: alert Comment: Anxious in bed Head Head exam: atraumatic and normocephalic Eye Eye exam: Present PERRL and EOMI ENT ENT exam: Present mucous membranes moist Neck Neck exam: Present normal inspection Chest Chest inspection: Present normal inspection and symmetric chest wall rise Respiratory Respiratory exam: Present normal lung sounds bilaterally and other (Mild tachypnea); Absent respiratory distress, wheezes or stridor Cardiovascular Cardiovascular exam: Present regular rate and normal rhythm Abdominal Exam Abdominal exam: Present soft; Absent tenderness Extremities Exam Extremities exam: Present normal inspection and other (No pitting edema BLE) Neurological Exam Neurological exam: Present alert and CN II-XII intact Psychiatric Psychiatric exam: Present normal affect Skin Skin exam: Present warm and dry HEART Score <Willian Prajapati MD - Last Filed: 02/07/25 15:45> HEART Score HEART Score assessment performed?: Yes History (anamnesis): Moderately suspicious ECG: Non-specific disturbance Age: >65 years Risk factors: 1-2 risk factors Troponin: </= normal limit HEART Score: 5 <Rajendra Mann MD - Last Filed: 02/07/25 16:35> HEART Score HEART Score: 5 Critical Care <Willian Prajapati MD - Last Filed: 02/07/25 15:45> Critical Care Time Critical Care Time: No Medical Decision Making <Willian Prajapati MD - Last Filed: 02/07/25 15:45> Grant Inquiry Pt receiving controlled substance: No Vital Signs Vital Signs: 02/07/25 12:46 02/07/25 13:01 02/07/25 13:49 Temperature 97.8 F Temperature Source Oral Pulse Rate 47 L 57 L Pulse Rate [Right Brachial] 56 L Respiratory Rate 16 15 13 Blood Pressure 152/68 H 190/91 H Blood Pressure [Right Arm] 196/95 H Blood Pressure Mean 124 Blood Pressure Mean [Right Arm] 128 Blood Pressure Source [Right Arm] Automatic Cuff Blood Pressure Position [Right Arm] Supine 02 Sat by Pulse Oximetry 98 97 96 Oxygen Delivery Method Room Air Room Air 02/07/25 14:00 02/07/25 14:34 02/07/25 15:00 Temperature Temperature Source Pulse Rate 52 L 58 L Pulse Rate [Right Brachial] Respiratory Rate 17 15 10 L Blood Pressure 139/100 H 169/89 H 161/78 H Blood Pressure [Right Arm] Blood Pressure Mean 113 111 106 Blood Pressure Mean [Right Arm] Blood Pressure Source [Right Arm] Blood Pressure Position [Right Arm] 02 Sat by Pulse Oximetry 96 100 94 L Oxygen Delivery Method 02/07/25 15:30 02/07/25 15:34 02/07/25 16:00 Temperature Temperature Source Pulse Rate 48 L 44 L 48 L Pulse Rate [Right Brachial] Respiratory Rate 11 L 13 12 Blood Pressure 159/76 H 155/76 H 155/65 H Blood Pressure [Right Arm] Blood Pressure Mean 103 102 Blood Pressure Mean [Right Arm] Blood Pressure Source [Right Arm] Blood Pressure Position [Right Arm] 02 Sat by Pulse Oximetry 94 L 97 95 Oxygen Delivery Method Room Air Lab Data Labs: Lab Results 02/07/25 12:56: VBG pH 7.34, VBG pCO2 48.2, VBG pO2 44.5 H, VBG HCO3 25.2, VBG Total CO2 26.7, VBG O2 Saturation 78.5 H, VBG Base Excess -0.6, VBG Lactic Acid 1.7 02/07/25 13:37: WBC 7.0, RBC 4.15 L, Hgb 12.2, Hct 36.8 L, MCV 88.7, MCH 29.4, MCHC 33.2, RDW 12.8, Plt Count 320, MPV 12.1 H, Neut % (Auto) 61.2, Lymph % (Auto) 27.1, [place] % (Auto) 7.0, Eos % (Auto) 3.7, Baso % (Auto) 0.7, Neut # (Auto) 4.3, Lymph # (Auto) 1.9, [place] # (Auto) 0.5, Eos # (Auto) 0.3, Baso # (Auto) 0.1, Sodium 139, Potassium 4.7, Chloride 103, Carbon Dioxide 27, Anion Gap 13.7, BUN 18 H, Creatinine 0.90, Estimated Creat Clear 65, Estimated GFR 62, Est GFR ( Amer) 75, Glucose 91, Calcium 8.8, Total Bilirubin 0.9, AST 42 H, ALT 16, Alkaline Phosphatase 52, Troponin I 0.02, NT-Pro-B Natriuret Pep 88.8, Total Protein 8.3 H, Albumin 4.8, Globulin 3.5 H, Albumin/Globulin Ratio 1.4, TSH 0.65, Free T4 0.96 02/07/25 15:34: Troponin I < 0.01 02/07/25 13:37 02/07/25 13:37 Response Orders (Tests/Meds): ED MEDICATIONS Generic Name Dose Route Start Last Admin Trade Name Freq PRN Reason Stop Dose Admin Sodium Chloride 10 ml 02/07/25 13:15 Sodium Chloride 0.9% 10ml Vial IV 03/09/25 13:14 NEEDED PRN to Dilute Lorazepam inj Sodium Chloride 10 ml 02/07/25 14:24 02/07/25 14:28 Sodium Chloride 0.9% 10ml Syr (Rad Only) IV 03/09/25 14:23 10 ml NEEDED PRN Administration Maintain IV Site Discontinued Medications Generic Name Dose Route Start Last Admin Trade Name Freq PRN Reason Stop Dose Admin Aspirin 324 mg 02/07/25 13:15 02/07/25 13:38 Aspirin 81mg Chewable Tablet PO 02/07/25 13:16 324 mg ONCE ONE Administration Iopamidol 70 ml 02/07/25 14:24 02/07/25 14:28 Iopamidol-370 (76%);100ml Bottle IV 02/07/25 14:25 70 ml ONCE ONE Administration Lorazepam 1 mg 02/07/25 13:15 02/07/25 13:51 Lorazepam 2mg/Ml Vial IV 02/07/25 13:16 1 mg ONCE ONE Administration Morphine Sulfate 4 mg 02/07/25 14:16 02/07/25 14:21 Morphine 4mg/Ml Syringe IV 02/07/25 14:17 4 mg ONCE ONE Administration Ondansetron HCl 4 mg 02/07/25 14:16 02/07/25 14:21 Ondansetron 4mg/2ml Vial IV 02/07/25 14:17 4 mg ONCE ONE Administration Sodium Chloride 50 ml 02/07/25 14:24 02/07/25 14:28 0.9 % Sodium Chloride 50 Ml Vial IV 02/07/25 14:25 50 ml ONCE ONE Administration ORDERS Category Date Time Status CT angio chest PE protocol Stat Cat Scan 02/07/25 12:56 Completed POCUS Point of Care (ER Only) Stat Exams 02/07/25 12:56 Completed BNP [NT Pro Brain Natriuretic Pep.] Stat Lab 02/07/25 13:37 Completed CBC w/Auto Diff [Complete Blood Count Auto Diff] Stat Lab 02/07/25 13:37 Completed CMP [Comprehensive Metabolic Panel] Stat Lab 02/07/25 13:37 Completed Free T4 (Free Thyroxine) Stat Lab 02/07/25 13:37 Completed TSH [Thyroid Stimulating Hormone] Stat Lab 02/07/25 13:37 Completed Trop I [Troponin I] Stat Lab 02/07/25 13:37 Completed Troponin I Q3H Lab 02/07/25 15:34 Completed Troponin I Q3H Lab 02/07/25 19:00 Ordered VBG [Venous Blood Gas] Stat RT 02/07/25 12:56 Completed ECG Data Tracing #1: ECG Narrative: Independently interpreted by me rate is 52, rhythm is regular, axis is normal, no ST elevation in anatomical contiguous leads, QTc 431. Suspected sinus rhythm with artifact. Tracing #2: ECG Narrative: Independently interpreted by me rate 52, rhythm is regular, axis is normal, sinus rhythm with first-degree AV block. No ST elevation in anatomical contiguous leads, QTc 446. MDM Narrative Medical Decision Narrative: In summary patient is 69-year-old female past medical history described above presents emergency department for evaluation of dyspnea and slow heart rate. Patient is hemodynamically stable nontoxic-appearing but normal, afebrile. EKG is read as atrial fibrillation with slow ventricular response however it is regular therefore differential includes atrial flutter with significant block versus sinus rhythm with artifact given that patient is anxious at bedside. Looking at EKG from Dr. Smith's office there does appear to be sinus rhythm in lead V6. I discussed case with Dr. Short will be very atypical and he has not seen atrial flutter with this level of block and significantly doubts this and believes this is sinus rhythm. Given this we will workup with hematologic labs troponins serial EKGs rhythm monitoring CTA chest PE protocol given history of elevated D-dimer. Repeat EKG obtained after Ativan administration sinus bradycardia with first-degree AV block suggesting that the previous artifact that appeared to be flutter waves was just her tremors. Hematologic labs reviewed by me no significant leukocytosis no transfusable anemia compensated acid-base status, no GENNA or critical electrolyte abnormality. Initial troponin 0.02. CTA no evidence of pulmonary embolism. Repeat evaluation second opponent pending at time of transfer of care to the oncoming physician, Dr. Mann. <Rajendra Mann MD - Last Filed: 02/07/25 16:35> Vital Signs Vital Signs: 02/07/25 12:46 02/07/25 13:01 02/07/25 13:49 Temperature 97.8 F Temperature Source Oral Pulse Rate 47 L 57 L Pulse Rate [Right Brachial] 56 L Respiratory Rate 16 15 13 Blood Pressure 152/68 H 190/91 H Blood Pressure [Right Arm] 196/95 H Blood Pressure Mean 124 Blood Pressure Mean [Right Arm] 128 Blood Pressure Source [Right Arm] Automatic Cuff Blood Pressure Position [Right Arm] Supine 02 Sat by Pulse Oximetry 98 97 96 Oxygen Delivery Method Room Air Room Air 02/07/25 14:00 02/07/25 14:34 02/07/25 15:00 Temperature Temperature Source Pulse Rate 52 L 58 L Pulse Rate [Right Brachial] Respiratory Rate 17 15 10 L Blood Pressure 139/100 H 169/89 H 161/78 H Blood Pressure [Right Arm] Blood Pressure Mean 113 111 106 Blood Pressure Mean [Right Arm] Blood Pressure Source [Right Arm] Blood Pressure Position [Right Arm] 02 Sat by Pulse Oximetry 96 100 94 L Oxygen Delivery Method 02/07/25 15:30 02/07/25 15:34 02/07/25 16:00 Temperature Temperature Source Pulse Rate 48 L 44 L 48 L Pulse Rate [Right Brachial] Respiratory Rate 11 L 13 12 Blood Pressure 159/76 H 155/76 H 155/65 H Blood Pressure [Right Arm] Blood Pressure Mean 103 102 Blood Pressure Mean [Right Arm] Blood Pressure Source [Right Arm] Blood Pressure Position [Right Arm] 02 Sat by Pulse Oximetry 94 L 97 95 Oxygen Delivery Method Room Air Lab Data Labs: Lab Results 02/07/25 12:56: VBG pH 7.34, VBG pCO2 48.2, VBG pO2 44.5 H, VBG HCO3 25.2, VBG Total CO2 26.7, VBG O2 Saturation 78.5 H, VBG Base Excess -0.6, VBG Lactic Acid 1.7 02/07/25 13:37: WBC 7.0, RBC 4.15 L, Hgb 12.2, Hct 36.8 L, MCV 88.7, MCH 29.4, MCHC 33.2, RDW 12.8, Plt Count 320, MPV 12.1 H, Neut % (Auto) 61.2, Lymph % (Auto) 27.1, [place] % (Auto) 7.0, Eos % (Auto) 3.7, Baso % (Auto) 0.7, Neut # (Auto) 4.3, Lymph # (Auto) 1.9, [place] # (Auto) 0.5, Eos # (Auto) 0.3, Baso # (Auto) 0.1, Sodium 139, Potassium 4.7, Chloride 103, Carbon Dioxide 27, Anion Gap 13.7, BUN 18 H, Creatinine 0.90, Estimated Creat Clear 65, Estimated GFR 62, Est GFR ( Amer) 75, Glucose 91, Calcium 8.8, Total Bilirubin 0.9, AST 42 H, ALT 16, Alkaline Phosphatase 52, Troponin I 0.02, NT-Pro-B Natriuret Pep 88.8, Total Protein 8.3 H, Albumin 4.8, Globulin 3.5 H, Albumin/Globulin Ratio 1.4, TSH 0.65, Free T4 0.96 02/07/25 15:34: Troponin I < 0.01 Response Orders (Tests/Meds): ED MEDICATIONS Generic Name Dose Route Start Last Admin Trade Name Freq PRN Reason Stop Dose Admin Sodium Chloride 10 ml 02/07/25 13:15 Sodium Chloride 0.9% 10ml Vial IV 03/09/25 13:14 NEEDED PRN to Dilute Lorazepam inj Sodium Chloride 10 ml 02/07/25 14:24 02/07/25 14:28 Sodium Chloride 0.9% 10ml Syr (Rad Only) IV 03/09/25 14:23 10 ml NEEDED PRN Administration Maintain IV Site Discontinued Medications Generic Name Dose Route Start Last Admin Trade Name Dylon PRN Reason Stop Dose Admin Aspirin 324 mg 02/07/25 13:15 02/07/25 13:38 Aspirin 81mg Chewable Tablet PO 02/07/25 13:16 324 mg ONCE ONE Administration Iopamidol 70 ml 02/07/25 14:24 02/07/25 14:28 Iopamidol-370 (76%);100ml Bottle IV 02/07/25 14:25 70 ml ONCE ONE Administration Lorazepam 1 mg 02/07/25 13:15 02/07/25 13:51 Lorazepam 2mg/Ml Vial IV 02/07/25 13:16 1 mg ONCE ONE Administration Morphine Sulfate 4 mg 02/07/25 14:16 02/07/25 14:21 Morphine 4mg/Ml Syringe IV 02/07/25 14:17 4 mg ONCE ONE Administration Ondansetron HCl 4 mg 02/07/25 14:16 02/07/25 14:21 Ondansetron 4mg/2ml Vial IV 02/07/25 14:17 4 mg ONCE ONE Administration Sodium Chloride 50 ml 02/07/25 14:24 02/07/25 14:28 0.9 % Sodium Chloride 50 Ml Vial IV 02/07/25 14:25 50 ml ONCE ONE Administration ORDERS Category Date Time Status CT angio chest PE protocol Stat Cat Scan 02/07/25 12:56 Completed POCUS Point of Care (ER Only) Stat Exams 02/07/25 12:56 Completed BNP [NT Pro Brain Natriuretic Pep.] Stat Lab 02/07/25 13:37 Completed CBC w/Auto Diff [Complete Blood Count Auto Diff] Stat Lab 02/07/25 13:37 Completed CMP [Comprehensive Metabolic Panel] Stat Lab 02/07/25 13:37 Completed Free T4 (Free Thyroxine) Stat Lab 02/07/25 13:37 Completed TSH [Thyroid Stimulating Hormone] Stat Lab 02/07/25 13:37 Completed Trop I [Troponin I] Stat Lab 02/07/25 13:37 Completed Troponin I Q3H Lab 02/07/25 15:34 Completed Troponin I Q3H Lab 02/07/25 19:00 Ordered VBG [Venous Blood Gas] Stat RT 02/07/25 12:56 Completed MDM Narrative Medical Decision Narrative: In summary patient is 69-year-old female past medical history described above presents emergency department for evaluation of dyspnea and slow heart rate. Patient is hemodynamically stable nontoxic-appearing but normal, afebrile. EKG is read as atrial fibrillation with slow ventricular response however it is regular therefore differential includes atrial flutter with significant block versus sinus rhythm with artifact given that patient is anxious at bedside. Looking at EKG from Dr. Smith's office there does appear to be sinus rhythm in lead V6. I discussed case with Dr. Fung will be very atypical and he has not seen atrial flutter with this level of block and significantly doubts this and believes this is sinus rhythm. Given this we will workup with hematologic labs troponins serial EKGs rhythm monitoring CTA chest PE protocol given history of elevated D-dimer. Repeat EKG obtained after Ativan administration sinus bradycardia with first-degree AV block suggesting that the previous artifact that appeared to be flutter waves was just her tremors. Hematologic labs reviewed by me no significant leukocytosis no transfusable anemia compensated acid-base status, no GENNA or critical electrolyte abnormality. Initial troponin 0.02. CTA no evidence of pulmonary embolism. Repeat evaluation second opponent pending at time of transfer of care to the oncoming physician, Dr. Mann. Johnathan: I assumed primary responsibility for this patient after signout from previous physician. Independent interpretation of patient's workup with nonactionable CBC or chemistry. Initial troponin negative. Patient was placed in observation in order to rule out evolving VT with delta troponins and determine need for admission versus home-going. The patient was provided with exams, cardiac monitoring while awaiting results. Independent interpretation of results demonstrated negative delta troponin. On reevaluation, patient still resting in her baseline, no much change. At this time, I feel patient is appropriate for discharge and outpatient follow-up closely. Total observation time 2 hours. Because patient at baseline without signs or symptoms of clinical decompensation, deemed appropriate for discharge. Results were relayed to patient who voiced understanding and were agreeable to outpatient management and follow up. I discussed my clinical impression with patient and answered all questions. At this time, the evidence for any other entities in the differential is insufficient to warrant any further testing or ED observation. This was explained as well. Advisory was given that persistent or worsening symptoms require further evaluation. I confirmed the understanding of this discussion.
[2025-02-07] MEDS: ASPIRIN 81MG CHEWABLE TABLET 324 MG PO (13:38)
[2025-02-07 13:47] LABS: Basophils # 0.1 K/mm3 (0-0.2); Basophils % 0.7 % (0.1-2.0); Eosinophils # 0.3 Kmm3 (0.0-0.4); Eosinophils % 3.7 % (0.1-12.0); Hematocrit 36.8 % (37.0-47.0); Hemoglobin 12.2 g/dL (12.2-16.2); Immature Granulocytes # 0.02 10^3uL; Immature Granulocytes % 0.3 %; Lymphocytes # 1.9 K/mm3 (0.7-4.5); Lymphocytes % 27.1 % (10-50); Mean Corpuscular HGB Conc 33.2 g/dL (31.8-35.4); Mean Corpuscular Hemoglobin 29.4 pg (27.0-31.2); Mean Corpuscular Volume 88.7 fl (81-99); Mean Platelet Volume 12.1 fl (7.4-10.4); Monocytes # 0.5 K/mm3 (0.1-1.0); Neutrophils # 4.3 K/mm3 (1.8-7.8); Neutrophils % 61.2 % (37.0-80.0); Nucleated Red Blood Cells # 0 10^3/uL; Nucleated Red Blood Cells % 0 %; Platelet Count 320 K/mm3 (142-424); Red Blood Count 4.15 M/mm3 (4.20-5.40); Red Cell Distribution Width 12.8 % (11.5-17.5); Red Cell Distribution Width-SD 41.2 fL
[2025-02-07 13:51] LABS: Lactate Venous 1.7 mmol/L (0.4-2.0); VBG Base Excess -0.6 mmol/L (-2.4-2.3); VBG HCO3 25.2 mmol/L (23-30); VBG Oxygen Saturation 78.5 % (50-70); VBG PCO2 48.2 mmol/L (35-51); VBG PH 7.34 mmol/L (7.31-7.41); VBG PO2 44.5 mmol/L (28-40); VBG Total CO2 26.7 mmol/L (23-27)
[2025-02-07] MEDS: LORazepam 2MG/ML VIAL 1 MG IV (13:51)
[2025-02-07 13:56] LABS: Chloride 103 mmol/L (98-107)
[2025-02-07 13:57] LABS: Albumin Level 4.8 g/dl (3.5-5.0); Potassium 4.7 mmoL/L (3.5-5.1); Sodium 139 mmol/L (136-145)
[2025-02-07 13:59] LABS: Blood Urea Nitrogen 18 mg/dl (7-17); Creatinine Clearance Estimated 65 mL/min (50-200); Estimated Glomerular Filt Rate 62 ml/min (>60); GFR (African American) 75 ML/MIN (>60)
[2025-02-07 14:00] LABS: Alanine Aminotransferase 16 U/L (12-78); Albumin/Globulin Ratio 1.4 (1.1-1.8); Alkaline Phosphatase 52 U/L (38-126); Anion Gap 13.7 mEq/L (5-15); Aspartate Amino Transferase 42 U/L (14-36); Bilirubin,Total 0.9 mg/dl (0.2-1.3); Calcium 8.8 mg/dl (8.4-10.2); Carbon Dioxide 27 mmol/L (22.0-30.0); Globulin 3.5 g/dL (1.3-3.2); Glucose 91 mg/dl (74-100); Total Protein,Serum 8.3 g/dl (6.3-8.2)
[2025-02-07 14:10] LABS: NT Pro Brain Natriuretic Pep. 88.8 pg/mL (0-125)
[2025-02-07 14:13] LABS: Troponin I 0.02 ng/ml (0.00-0.034)
[2025-02-07 14:17] LABS: Free T4 (Free Thyroxine) 0.96 ng/dl (0.78-2.19)
[2025-02-07] MEDS: ONDANSETRON 4MG/2ML VIAL 4 MG IV (14:21)
[2025-02-07] MEDS: MORPHINE 4MG/ML SYRINGE 4 MG IV (14:21)
[2025-02-07] MEDS: IOPAMIDOL-370 (76%);100ML BOTTLE 70 ML IV (14:28)
[2025-02-07] MEDS: SODIUM CHLORIDE 0.9% 10ML SYR (RAD ONLY) 10 ML IV (14:28)
[2025-02-07] MEDS: 0.9 % SODIUM CHLORIDE 50 ML VIAL IV (14:28)
[2025-02-07 14:31] LABS: Thyroid Stimulating Hormone 0.65 uIU/mL (0.465-4.68)
--- NOTE | 2025-02-07 14:31 | PC.NURSE ---
Pt returned from radiology
--- NOTE | 2025-02-07 14:40 | ECG_ITS ---
APPROVED REPORT Exam: Resting ECG HR:52 bpm ECG Measurements Heart Rate 52 AXES WI 227 P 83 QRSd 93 QRS 56 QT 465 T 75 QTc 446 Conclusion Sinus bradycardia First-degree AV block No STEMI Electronically signed by : DARIO MALLOY, 02/07/2025 22:55:43
--- NOTE | 2025-02-07 14:52 | PC.NURSE ---
Pulse rat was recorded wrong but is now fixed
[2025-02-07 16:14] LABS: Troponin I < 0.01 ng/ml (0.00-0.034)
== END 2025-02-07 17:18 | disposition home or self-care (01) ==
PROVIDERS: Emergency Medicine; Emergency Provider Emergency Medicine; PCP Family Medicine
DX: R07.9 Chest pain, unspecified (principal); R06.00 Dyspnea, unspecified; G89.29 Other chronic pain; I50.30 Unspecified diastolic (congestive) heart failure; F41.1 Generalized anxiety disorder
CPT/HCPCS: 71275; 80053; 82803; 83880; 84439; 84443; 84484; 85025; 93005; 96374; 96375; 96376; 99285; J2060; J2270; J2405; Q9967

== ENCOUNTER 2025-02-13 11:50 | Outpatient (CLI) | payer MEDICARE, OTHER, SELFPAY ==
--- OUTSIDE RECORDS SUMMARY | 2025-02-13 11:55 | XMS_ITS | Clinical Summary ---
Author Organization [facility] Address [address] [place] [id number] Care Team Providers Care Road Hogger Operator Name Role Phone Unavailable Primary Care Provider [...] therelease of HIV test results or diagnoses. [id number] Social History Tobacco Use Types Packs/Day Years Used Date Smoking Tobacco: Never Assessed Comments Unknown Sex and Gender Information Value Date Recorded Sex Assigned at Not on file Legal Sex Female 10:53 PM EST Gender Identity Not on file Sexual Orientation Not on file Plan of Treatment Not on file
--- OUTSIDE RECORDS SUMMARY | 2025-02-13 11:55 | XMS_ITS | Clinical Summary ---
Author Organization [facility] Address [address] [place] [address] Care Team Providers Care Spread Cutter Name Role Phone Reuben Fong MD Primary Care Provider [phone] Social History Tobacco Use Types Packs/Day Years [...] (2 of 2 - PCV) 01/03/2019 01/03/2018 [id number] Vaccine (2 - season) 2024 11/18/2020 UKY-Influenza Vaccine (#1) 04/14/202506/01, 05/15/2017 [facility]Y-RSV Vaccine: 60+ Years o r [...] Insurance [employer] Care Teams Spread Cutter Relationship Specialty Start Date End Date Reuben Fong MD [address] [place] [address] [place] [address] PCP - General 12/25/20
[2025-02-13] MEDS: SODIUM CHLORIDE 0.9% 10ML FLUSH SYRINGE 10 ML IV (12:00)
== END 2025-02-13 12:00 | disposition home or self-care (01) ==
LOC: INF 11:53
PROVIDERS: PCP Family Medicine; Visit Provider Surgery
DX: Z45.2 Encounter for adjustment and management of vascular access device (principal)
CPT/HCPCS: 96523; J1642

== ENCOUNTER 2025-03-03 13:00 | Outpatient (CLI) | payer MEDICARE, OTHER, SELFPAY ==
--- OUTSIDE RECORDS SUMMARY | 2025-03-03 13:10 | XMS_ITS | Clinical Summary ---
Author Organization [facility] Address [address] [place] [address] Care Team Providers Care Laboratory Courier Name Role Phone Reuben Fong MD Primary Care Provider [phone] Social History Tobacco Use Types Packs/Day Years [...] (2 of 2 - PCV) 01/03/2019 01/03/2018 [id number] Vaccine (2 - season) 2024 11/18/2020 UKY-Influenza [...] Insurance [employer] Care Teams Laboratory Courier Relationship Specialty Start Date End Date Reuben Fong MD [address] [place] [address] [place] [address] PCP - General 12/25/20
--- OUTSIDE RECORDS SUMMARY | 2025-03-03 13:10 | XMS_ITS | Clinical Summary ---
Author Organization [facility] Address [address] [place] [address] Care Team Providers Care Wagon Person Name Role Phone Unavailable Primary Care Provider [...] therelease of HIV test results or diagnoses. [id number] Social History Tobacco Use Types Packs/Day Years Used Date Smoking Tobacco: Never Assessed Comments Unknown Sex and Gender Information Value Date Recorded Sex Assigned at Not on file Legal Sex Female 10:53 PM EST Gender Identity Not on file Sexual Orientation Not on file Plan of Treatment Not on file
[2025-03-03] MEDS: SODIUM CHLORIDE 0.9% 10ML FLUSH SYRINGE 10 ML IV (13:16)
[2025-03-04 16:12] LABS: Albumin 3.6 g/dL (2.9-4.4); Alpha-1-Globulin 0.2 g/dL (0.0-0.4); Alpha-2-Globulin 0.7 g/dL (0.4-1.0); Gamma Globulin 1.0 g/dL (0.4-1.8)
[2025-03-07 15:26] LABS: PDF SCANNED IMAGE
== END 2025-03-03 13:20 | disposition home or self-care (01) ==
LOC: INF 13:05
PROVIDERS: PCP Family Medicine; Visit Provider Family Medicine
DX: R77.1 Abnormality of globulin (principal)
CPT/HCPCS: 36591; 84155; 84165; J1642

== ENCOUNTER 2025-03-03 14:29 | Outpatient (CLI) | payer MEDICARE, OTHER, SELFPAY ==
--- OUTSIDE RECORDS SUMMARY | 2025-03-03 14:33 | XMS_ITS | Clinical Summary ---
Author Organization [facility] Address [address] [place] [address] Care Team Providers Care Engagement Liaison Name Role Phone Reuben Fong MD Primary Care Provider [phone] Social History Tobacco Use Types Packs/Day Years [...] (2 of 2 - PCV) 01/03/2019 01/03/2018 [id number] Vaccine (2 - season) 2024 11/18/2020 UKY-Influenza [...] Insurance [employer] Care Teams Engagement Liaison Relationship Specialty Start Date End Date Reuben Fong MD [address] [place] [address] [place] [address] PCP - General 12/25/20
--- OUTSIDE RECORDS SUMMARY | 2025-03-03 14:33 | XMS_ITS | Clinical Summary ---
Author Organization [facility] Address [address] [place] [address] Care Team Providers Care Flame Cutting Machine Operator Helper Name Role Phone Unavailable Primary Care Provider [...] therelease of HIV test results or diagnoses. [id number] Social History Tobacco Use Types Packs/Day Years Used Date Smoking Tobacco: Never Assessed Comments Unknown Sex and Gender Information Value Date Recorded Sex Assigned at Not on file Legal Sex Female 10:53 PM EST Gender Identity Not on file Sexual Orientation Not on file Plan of Treatment Not on file
--- NOTE | 2025-03-03 14:38 | XR_ITS ---
FINAL REPORT CLINICAL HISTORY: left knee pain FINDINGS: LEFT KNEE 3 views of the left knee were obtained. There is no acute fracture or dislocation. There is mild tricompartmental degenerative change. No joint effusion is seen. Visualized joint spaces are normally aligned. Soft tissues are unremarkable. IMPRESSION: No acute bony abnormality. Reviewed, Interpreted and Dictated by Santo Gerardo MD Transcribed by Monae Francis Authenticated and [facility]
--- NOTE | 2025-03-03 14:38 | XR_ITS ---
FINAL REPORT CLINICAL HISTORY: right knee pain FINDINGS: RIGHT KNEE 3 views of the right knee were obtained. There is no acute fracture or dislocation. There is moderate tricompartmental degenerative change, greatest medially. Visualized joint spaces are normally aligned. Soft tissues are unremarkable. IMPRESSION: No acute bony abnormality. Reviewed, Interpreted and Dictated by Santo Gerardo MD Transcribed by Monae Francis Authenticated and [facility]
== END 2025-03-03 23:59 | disposition home or self-care (01) ==
LOC: RAD 14:32
PROVIDERS: PCP Family Medicine; Visit Provider Orthopaedic Surgery
DX: M25.562 Pain in left knee (principal); M25.561 Pain in right knee
CPT/HCPCS: 73562

== ENCOUNTER 2025-03-03 16:04 | Inpatient (IN) | payer MEDICARE, OTHER, SELFPAY ==
[2025-03-03] VITALS (17 sets, daily range): BP systolic 133–184; BP diastolic 63–95; PULSE 52–61; RESP 16–18; TEMP 36.6; O2SAT 95–100; BMI 28.8; BMI 30.7
--- NOTE | 2025-03-03 16:41 | ECG_ITS ---
APPROVED REPORT Exam: Resting ECG HR:44 bpm ECG Measurements Heart Rate 44 AXES NV 244 P 54 QRSd 94 QRS 15 QT 475 T 48 QTc 426 Conclusion SINUS BRADYCARDIA WITH FIRST DEGREE AV BLOCK ABNORMAL ECG UNCONFIRMED REPORT Electronically signed by : VIVIEN ZAMAN, 03/05/2025 01:22:41
--- OUTSIDE RECORDS SUMMARY | 2025-03-03 16:42 | XMS_ITS | Clinical Summary ---
Author Organization [facility] Address [address] [place] [id number] Care Team Providers Care Development Professional Name Role Phone Unavailable Primary Care Provider [...] therelease of HIV test results or diagnoses. [id number] Social History Tobacco Use Types Packs/Day Years Used Date Smoking Tobacco: Never Assessed Comments Unknown Sex and Gender Information Value Date Recorded Sex Assigned at Not on file Legal Sex Female 10:53 PM EST Gender Identity Not on file Sexual Orientation Not on file Plan of Treatment Not on file
--- OUTSIDE RECORDS SUMMARY | 2025-03-03 16:42 | XMS_ITS | Clinical Summary ---
Author Organization [facility] Address [address] [place] [address] Care Team Providers Care Granite Fabricator Name Role Phone Reuben Fong MD Primary Care Provider [phone] Social History Tobacco Use Types Packs/Day Years [...] (2 of 2 - PCV) 01/03/2019 01/03/2018 [id number] Vaccine (2 - season) 2024 11/18/2020 UKY-Influenza [...] Insurance [employer] Care Teams Granite Fabricator Relationship Specialty Start Date End Date Reuben Fong MD [address] [place] [address] [place] [address] PCP - General 12/25/20
--- NOTE | 2025-03-03 16:43 | CT_ITS ---
PROCEDURE INFORMATION: Exam: CTA Chest With Contrast Exam date and time: 03/03/2025 6:12 PM Age: 69 years old Clinical indication: Shortness of breath TECHNIQUE: Imaging protocol: Computed tomographic angiography of the chest with contrast. Exam focused on the arteries. 3D rendering (Not supervised by radiologist): MIP and/or 3D reconstructed images were created by the technologist. Radiation optimization: All CT scans at this facility use at least one of these dose optimization techniques: automated exposure control; mA and/or kV adjustment per patient size (includes targeted exams where dose is matched to clinical indication); or iterative reconstruction. Contrast material: ISOVUE; Contrast volume: 70 ml; Contrast route: INTRAVENOUS (IV); COMPARISON: CT ANGIO CHEST PE PROTOCOL 02/07/2025 2:24 PM FINDINGS: Tubes, catheters and devices: Left port tip is in the lower SVC. Pulmonary arteries: No pulmonary emboli. Enlarged pulmonary arteries likely represent chronic pulmonary arterial hypertension. Aorta: The aorta demonstrates mild atherosclerotic disease. Lungs: Mild scarring and atelectasis in the lower lungs. Pleural spaces: Unremarkable. No pneumothorax. No pleural effusion. Heart: Cardiomegaly. Lymph nodes: Unremarkable. No enlarged lymph nodes. Gallbladder and biliary ducts: The common duct measures 16 mm in diameter, previously 12 mm. Gallbladder is absent. Kidneys: Low attenuation renal lesions measuring up to 10 mm in diameter are incompletely characterized, but are likely cysts. No followup imaging is warranted. Bones/joints: Old bilateral rib fractures. Soft tissues: Unremarkable. Other findings: Stigmata of old granulomatous disease. IMPRESSION: 1. No pulmonary emboli. 2. The common duct measures 16 mm in diameter, previously 12 mm. If there is clinical evidence of biliary obstruction, consider MRCP to evaluate for obstructing mass versus choledocholithiasis. COMMENTS: Consistent with the [employer]'s Incidental Findings Committee white paper (J Am Ember Radiol 2018): Any incidental renal lesion less than 1 cm or classified as too small to characterize, or any incidental cystic renal lesion characterized as simple-appearing, is likely benign. No follow-up imaging is recommended for these lesions per consensus recommendations based on imaging criteria.
--- NOTE | 2025-03-03 16:47 | [facility].EDCP ---
Discharge Plan Disposition Patient Disposition: Admitted Prescriptions Prescriptions: No Action spironolactone [Aldactone] 25 mg tablet 12.5 mg PO DAILY Qty: 90 3RF aspirin [Adult Aspirin Regimen] 81 mg tablet,delayed release (DR/EC) 81 mg PO DAILY albuterol sulfate 90 mcg/actuation HFA aerosol inhaler 2 puff inhalation Q4-6H PRN (Reason: shortness of breath or wheezing) Qty: 18 2RF fluticasone propionate [Allergy Relief (fluticasone)] 50 mcg/actuation spray,suspension 1 spray intranasal BID Qty: 16 2RF Rx Instructions: administer into each nostril 2x/day propranolol 20 mg tablet 20 mg PO BID Qty: 60 2RF furosemide 40 mg tablet 40 mg PO DAILY 30 Days Qty: 30 2RF diazepam 5 mg tablet 5 mg PO TID PRN (Reason: anxiety) Qty: 90 0RF Rx Instructions: ok to fill on February 24, 2025 lisinopril 20 mg tablet 20 mg PO DAILY Qty: 90 3RF methocarbamol 750 mg tablet 750 mg PO TID PRN (Reason: muscle spasm) Qty: 30 0RF albuterol sulfate 2.5 mg /3 mL (0.083 %) solution for nebulization 2.5 mg inhalation Q4-6H PRN (Reason: shortness of breath or wheezing) Qty: 75 2RF oxybutynin chloride 5 mg tablet See Rx Instructions .ROUTE .COMPLEX Qty: 30 2RF Dose Instruction: TAKE ONE TABLET BY MOUTH EVERY DAY Rx Instructions: TAKE ONE TABLET BY MOUTH EVERY DAY benzonatate 100 mg capsule 100 mg PO TID PRN (Reason: cough) Qty: 60 0RF alendronate 10 mg tablet 10 mg PO DAILY Qty: 30 2RF escitalopram oxalate [Lexapro] 10 mg tablet 10 mg PO DAILY Qty: 30 2RF ondansetron 4 mg tablet,disintegrating 4 mg PO Q8H PRN (Reason: nausea and vomiting) 5 Days Qty: 20 0RF Referrals Follow up/Referrals: Colin Smith MD [Primary Care Provider, Family Practice] - See instructions Clinical Impressions Clinical Impression: Choledocholithiasis, Chest pain Print Language Print Language: Tajik Discharge ED Provider: Willian Prajapati HPI <Gissell Blackwell (ED), GENERAL ACCOUNTING MANAGER - Last Filed: 03/03/25 18:53> General Chief Complaint: Shortness of Breath/Dyspnea Stated Complaint: Weakness,SOA,Legs & feet swollen Time Seen by Provider: 03/03/25 16:27 Mode of Arrival: Ambulatory Source of Information: Patient Description of Symptoms (Recalled from ER Triage Doc. by RN): Pt to ER this date due to SOA, CP and weakness that have been getting worse for approx 3 days. Pt rates pain 8/10 which is constant and she states is better with rest. History of Present Illness HPI narrative: 69-year-old female presents to the ED today with several complaints. She complains of weakness, chest pain and pressure that started approximately 3 days ago. She states that she also has been having panic attacks over the past 3 days. She complains of bilateral feet and legs swelling. States that she went to the Dr Ca today for her feet and legs being swollen. She states that she is on both Lasix and spironolactone. She says he told her that she probably has been overdoing it. He told her to elevate her legs and feet. He also did lab work. She also went to Ortho appointment today and had bilateral knees x-rayed. She says she has been having a lot of knee pain. Patient has history of heart failure shortness of breath, CHF, hypertension, arthritis, chronic kidney disease, Crohn's and osteoarthritis. Related Data Home Medications ?Medication ?Instructions ?Recorded ?Confirmed aspirin 81 mg tablet,delayed 81 mg PO DAILY 09/27/24 03/03/25 release (Adult Aspirin Regimen) Previous Rx's ?Medication ?Instructions ?Recorded lisinopril 20 mg tablet 20 mg PO DAILY #90 tabs 08/26/24 methocarbamol 750 mg tablet 750 mg PO TID PRN muscle spasm #30 11/29/24 tabs ondansetron 4 mg disintegrating 4 mg PO Q8H PRN nausea and 11/30/24 tablet vomiting 5 days #20 tabs albuterol sulfate 90 mcg/actuation 2 puff inhalation Q4-6H PRN 12/03/24 aerosol inhaler shortness of breath or wheezing #18 grams albuterol sulfate 2.5 mg/3 mL 2.5 mg (3 mL) inhalation Q4-6H PRN 12/04/24 (0.083 %) solution for nebulization shortness of breath or wheezing #75 mL oxybutynin chloride 5 mg tablet See Rx Instructions .Route 12/13/24 .COMPLEX #30 tabs spironolactone 25 mg tablet 12.5 mg (1/2 x 25 mg) PO DAILY #90 12/24/24 (Aldactone) tabs fluticasone propionate 50 1 spray intranasal BID #16 grams 01/10/25 mcg/actuation nasal spray,suspension (Allergy Relief (fluticasone)) benzonatate 100 mg capsule 100 mg PO TID PRN cough #60 caps 01/29/25 alendronate 10 mg tablet 10 mg PO DAILY #30 tabs 02/21/25 diazepam 5 mg tablet 5 mg PO TID PRN anxiety #90 tabs 02/21/25 escitalopram oxalate 10 mg tablet 10 mg PO DAILY #30 tabs 02/24/25 (Lexapro) furosemide 40 mg tablet 40 mg PO DAILY 30 days #30 tabs 03/03/25 propranolol 20 mg tablet 20 mg PO BID #60 tabs 03/03/25 Allergies Allergy/AdvReac Type Severity Reaction Status Date / Time cephalexin (From Keflex) Allergy Severe Difficulty Verified 03/03/25 15:35 Breathing prochlorperazine Allergy Severe Swelling Verified 03/03/25 15:35 (PROCHLORPERAZINE) of Lip/Tongue/Throat codeine (CODEINE) Allergy Unknown VOMITING / Verified 03/03/25 15:35 NAUSEA prednisone (PREDNISONE) Allergy Unknown BP ISSUES Verified 03/03/25 15:35 promethazine (From PHENERGAN) Allergy Unknown Unknown Verified 03/03/25 15:35 allergy reaction metoclopramide (From Reglan) Allergy Nausea Verified 03/03/25 15:35 hydroxyzine (From Vistaril) AdvReac Hives Verified 03/03/25 15:35 PFS <Gissell Blackwell (ED), GENERAL ACCOUNTING MANAGER - Last Filed: 03/03/25 18:53> [facility] Disclaimer: The information contained in this section may have been updated after the patient was seen, as this information can be updated by other users. Medical History Anxiety related tremor High globulin level Shakiness SOB (shortness of breath) Palpitations Bradycardia Screening for colon cancer Breast cancer screening by mammogram Mammogram done 10/2024 Crohn's disease Community acquired pneumonia Chronic kidney disease (HFpEF) heart failure with preserved ejection fraction Abnormal chest CT Schatzki's ring Sinus bradycardia Insomnia Depression Anxiety Osteoporosis Allergies History of anemia History of constipation Sphincter of Oddi dysfunction HTN (hypertension) Bilateral lower extremity edema Surgical History Lipoma of back Status post cholecystectomy H/O oral surgery History of appendectomy H/O total hysterectomy History of esophagogastroduodenoscopy (EGD) History of arthroscopy of right knee Status post knee surgery Status post right knee arthroscopy with partial medial meniscectomy date of surgery May 16, 2022 History of intestinal surgery Family History Other Cancer Heart attack Social History Smoking Status: Never smoker second hand exposure: No alcohol intake: never substance use type: denies use current occupational status: disabled Travel in the last 8 weeks?: None household members: none housing: apartment number of children: 2 current occupational exposures/hazards: No caffeine: Yes Have you lived/traveled outside [place] in past 30 days?: No Contact w/someone who lives/traveled outside US past 30 days?: No Exposure to someone with infectious disease in past 14 days?: No Do you have a fever (greater than 100.4 F or 38 C)?: No Have you tested positive for COVID-19?: No Exposed to someone with COVID-19 in past 14 days?: No Do you have a sore throat?: No Do you have a cough?: No Do you have any weakness?: Yes Do you have any diarrhea?: No Are you experiencing any unusual bleeding?: No Do you have any muscle aches/pain?: No Do you have any abdominal pain?: No Are you experiencing loss of taste or smell?: No Other Medical History Have you received the Flu Vaccine for this season: No Have you received the Pneumonia Vaccine: Yes <Gissell GUILLAUME), GENERAL ACCOUNTING MANAGER - Last Filed: 03/03/25 18:53> ROS Obtained: Yes Systems reviewed as appropriate & no additional complaints except as documented Constitutional Constitutional: Reports as per HPI Physical Exam <Gissell Blackwell (ED), GENERAL ACCOUNTING MANAGER - Last Filed: 03/03/25 18:53> General General appearance: alert and anxious Head Head exam: normocephalic Eye Eye exam: Present PERRL ENT ENT exam: Present mucous membranes moist Neck Neck exam: Present trachea midline Chest Chest inspection: Present symmetric chest wall rise Respiratory Respiratory exam: Present normal lung sounds bilaterally Cardiovascular Cardiovascular exam: Present regular rate, normal rhythm, normal heart sounds, +S1 and +S2 Abdominal Exam Abdominal exam: Present soft and normal bowel sounds Extremities Exam Extremities exam: Present full ROM, tenderness, normal capillary refill and edema (Bilateral lower extremities with edema) Back Exam Back exam: Present full ROM Neurological Exam Neurological exam: Present alert and oriented X3 Psychiatric Psychiatric exam: Present normal mood and anxious Skin Skin exam: Present warm and dry HEART Score <Willian Prajapati MD - Last Filed: 03/03/25 21:33> HEART Score HEART Score assessment performed?: Yes History (anamnesis): Moderately suspicious ECG: Non-specific disturbance Age: >65 years Risk factors: 3 or more risk factors Troponin: </= normal limit HEART Score: 6 Critical Care <Willian Prajapati MD - Last Filed: 03/03/25 21:33> Critical Care Time Critical Care Time: No Medical Decision Making <Gissell Blackwell (ED), GENERAL ACCOUNTING MANAGER - Last Filed: 03/03/25 18:53> Grant Inquiry Pt receiving controlled substance: No Grant was queried for this patient: No Vital Signs Vital Signs: 03/03/25 16:33 03/03/25 16:36 03/03/25 17:08 Temperature 97.8 F Temperature Source Oral Pulse Rate 55 L Pulse Rate [Left] 55 L Respiratory Rate 16 18 Blood Pressure 173/87 H 133/63 Blood Pressure [Right Arm] 173/87 H Blood Pressure Mean 115 115 Blood Pressure Mean [Right Arm] 115 Blood Pressure Source [Right Arm] Automatic Cuff 02 Sat by Pulse Oximetry 100 97 Oxygen Delivery Method Room Air 03/03/25 17:31 03/03/25 18:26 03/03/25 19:01 Temperature Temperature Source Pulse Rate 60 61 Pulse Rate [Left] Respiratory Rate 18 18 Blood Pressure 143/70 H 167/85 H 161/87 H Blood Pressure [Right Arm] Blood Pressure Mean 94 102 97 Blood Pressure Mean [Right Arm] Blood Pressure Source [Right Arm] 02 Sat by Pulse Oximetry 95 99 Oxygen Delivery Method 03/03/25 19:01 03/03/25 19:30 Temperature Temperature Source Pulse Rate 52 L Pulse Rate [Left] Respiratory Rate Blood Pressure 165/89 H Blood Pressure [Right Arm] Blood Pressure Mean 109 Blood Pressure Mean [Right Arm] Blood Pressure Source [Right Arm] 02 Sat by Pulse Oximetry 98 Oxygen Delivery Method Lab Data Labs: Lab Results 03/03/25 17:08: WBC 6.3, RBC 3.74 L, Hgb 10.8 L, Hct 33.2 L, MCV 88.8, MCH 28.9, MCHC 32.5, RDW 12.8, Plt Count 230, MPV 11.8 H, Neut % (Auto) 51.0, Lymph % (Auto) 32.3, [facility] % (Auto) 8.6, Eos % (Auto) 6.9, Baso % (Auto) 1.0, Neut # (Auto) 3.2, Lymph # (Auto) 2.0, [facility] # (Auto) 0.5, Eos # (Auto) 0.4, Baso # (Auto) 0.1, Sodium 139, Potassium 3.8, Chloride 108 H, Carbon Dioxide 27, Anion Gap 7.8, BUN 16, Creatinine 1.00, Estimated Creat Clear 64, Estimated GFR 55 L, Est GFR ( Amer) 67, Glucose 102 H, Calcium 8.9, Magnesium 1.9, Total Bilirubin 0.6, AST 37 H, ALT 20, Alkaline Phosphatase 63, Troponin I < 0.01, NT-Pro-B Natriuret Pep 127 H, Total Protein 7.1, Albumin 4.2, Globulin 2.9, Albumin/Globulin Ratio 1.4, Lipase 88 03/03/25 19:45: Urine Color Yellow, Urine Appearance Clear, Urine pH 7.0, Ur Specific Morrow <= 1.005, Urine Protein Negative, Urine Glucose (UA) Negative, Urine Ketones Negative, Urine Blood Negative, Urine Nitrate Negative, Urine Bilirubin Negative, Urine Urobilinogen 0.2, Ur Leukocyte Esterase Negative, Urine RBC None, Urine WBC Occasional, Ur Squamous Epith Cells Occasional, Urine Bacteria Trace 03/03/25 20:00: Troponin I < 0.01 03/03/25 17:08 03/03/25 17:08 Response Orders (Tests/Meds): ED MEDICATIONS Generic Name Dose Route Start Last Admin Trade Name Freq PRN Reason Stop Dose Admin Sodium Chloride 8 ml 03/03/25 16:43 03/03/25 17:22 Sodium Chloride 0.9% 10ml Vial IV 04/02/25 16:42 8 ml NEEDED PRN Administration dilute pepcid Sodium Chloride 10 ml 03/03/25 20:37 03/03/25 20:38 Sodium Chloride 0.9% 10ml Syr (Rad Only) IV 04/02/25 20:36 10 ml NEEDED PRN Administration Maintain IV Site Discontinued Medications Generic Name Dose Route Start Last Admin Trade Name Freq PRN Reason Stop Dose Admin Diazepam 2.5 mg 03/03/25 18:37 03/03/25 19:13 Diazepam 10mg/2ml Syringe IV 03/03/25 18:38 2.5 mg ONCE ONE Administration Famotidine 20 mg 03/03/25 16:43 03/03/25 17:22 Famotidine 20mg/2ml Vial IV 03/03/25 16:44 20 mg ONCE ONE Administration Magnesium Sulfate 2 gm in 50 mls @ 50 mls/hr 03/03/25 16:43 03/03/25 17:22 Magnesium Sulfate 2gm/50ml Premix IV 03/03/25 17:42 50 mls/hr ONCE ONE Administration Iopamidol 70 ml 03/03/25 18:13 03/03/25 18:17 Iopamidol-370 (76%);100ml Bottle IV 03/03/25 18:14 70 ml ONCE ONE Administration Iopamidol 75 ml 03/03/25 20:37 03/03/25 20:38 Iopamidol-370 (76%);100ml Bottle IV 03/03/25 20:38 75 ml ONCE ONE Administration Ketorolac Tromethamine 30 mg 03/03/25 20:25 03/03/25 20:30 Ketorolac 30mg/Ml Vial IV 03/03/25 20:26 30 mg ONCE ONE Administration Morphine Sulfate 4 mg 03/03/25 17:14 03/03/25 17:21 Morphine 4mg/Ml Syringe IV 03/03/25 17:15 4 mg ONCE ONE Administration Morphine Sulfate 4 mg 03/03/25 20:25 03/03/25 20:31 Morphine 4mg/Ml Syringe IV 03/03/25 20:26 4 mg ONCE ONE Administration Ondansetron HCl 4 mg 03/03/25 17:14 03/03/25 17:22 Ondansetron 4mg/2ml Vial IV 03/03/25 17:15 4 mg ONCE ONE Administration Ondansetron HCl 4 mg 03/03/25 20:25 03/03/25 20:30 Ondansetron 4mg/2ml Vial IV 03/03/25 20:26 4 mg ONCE ONE Administration Sodium Chloride 10 ml 03/03/25 18:13 03/03/25 18:17 Sodium Chloride 0.9% 10ml Syr (Rad Only) IV 03/03/25 18:14 10 ml ONCE ONE Administration Sodium Chloride 50 ml 03/03/25 18:13 03/03/25 18:17 0.9 % Sodium Chloride 50 Ml Vial IV 03/03/25 18:14 50 ml ONCE ONE Administration ORDERS Category Date Time Status CT abdomen pelvis w con Stat Cat Scan 03/03/25 20:21 Completed CTA Chest [CT angio chest PE protocol] Stat Cat Scan 03/03/25 16:43 Completed BNP [NT Pro Brain Natriuretic Pep.] Stat Lab 03/03/25 17:08 Completed CBC [Complete Blood Count Auto Diff] Stat Lab 03/03/25 17:08 Completed Comprehensive Metabolic Panel Stat Lab 03/03/25 17:08 Completed Lipase Stat Lab 03/03/25 17:08 Completed Magnesium Stat Lab 03/03/25 17:08 Completed Trop I [Troponin I] Stat Lab 03/03/25 17:08 Completed Troponin I Q3H Lab 03/03/25 20:00 Completed Troponin I Q3H Lab 03/03/25 22:45 Ordered UA [Urinalysis and Microscopic] Stat Lab 03/03/25 19:45 Completed MDM Narrative Medical Decision Narrative: patient is a 69-year-old female presenting to the emergency department for evaluation of chest pain and shortness of breath with swelling in bilateral feet and ankles. Patient is hemodynamically stable and nontoxic-appearing upon arrival, afebrile. Differential diagnosis includes CHF exacerbation, anxiety, hypertension, among others. Workup will be conducted with hematologic labs, specific imaging. Initial workup reviewed by al hematologic labs are remarkable for negative troponin, BNP was low and normal electrolytes. Still waiting for formal CT report to return. Given report to Dr. Prajapati. <Willian Prajapati MD - Last Filed: 03/03/25 21:33> Vital Signs Vital Signs: 03/03/25 16:33 03/03/25 16:36 03/03/25 17:08 Temperature 97.8 F Temperature Source Oral Pulse Rate 55 L Pulse Rate [Left] 55 L Respiratory Rate 16 18 Blood Pressure 173/87 H 133/63 Blood Pressure [Right Arm] 173/87 H Blood Pressure Mean 115 115 Blood Pressure Mean [Right Arm] 115 Blood Pressure Source [Right Arm] Automatic Cuff 02 Sat by Pulse Oximetry 100 97 Oxygen Delivery Method Room Air 03/03/25 17:31 03/03/25 18:26 03/03/25 19:01 Temperature Temperature Source Pulse Rate 60 61 Pulse Rate [Left] Respiratory Rate 18 18 Blood Pressure 143/70 H 167/85 H 161/87 H Blood Pressure [Right Arm] Blood Pressure Mean 94 102 97 Blood Pressure Mean [Right Arm] Blood Pressure Source [Right Arm] 02 Sat by Pulse Oximetry 95 99 Oxygen Delivery Method 03/03/25 19:01 03/03/25 19:30 Temperature Temperature Source Pulse Rate 52 L Pulse Rate [Left] Respiratory Rate Blood Pressure 165/89 H Blood Pressure [Right Arm] Blood Pressure Mean 109 Blood Pressure Mean [Right Arm] Blood Pressure Source [Right Arm] 02 Sat by Pulse Oximetry 98 Oxygen Delivery Method Lab Data Labs: Lab Results 03/03/25 17:08: WBC 6.3, RBC 3.74 L, Hgb 10.8 L, Hct 33.2 L, MCV 88.8, MCH 28.9, MCHC 32.5, RDW 12.8, Plt Count 230, MPV 11.8 H, Neut % (Auto) 51.0, Lymph % (Auto) 32.3, [facility] % (Auto) 8.6, Eos % (Auto) 6.9, Baso % (Auto) 1.0, Neut # (Auto) 3.2, Lymph # (Auto) 2.0, [facility] # (Auto) 0.5, Eos # (Auto) 0.4, Baso # (Auto) 0.1, Sodium 139, Potassium 3.8, Chloride 108 H, Carbon Dioxide 27, Anion Gap 7.8, BUN 16, Creatinine 1.00, Estimated Creat Clear 64, Estimated GFR 55 L, Est GFR ( Amer) 67, Glucose 102 H, Calcium 8.9, Magnesium 1.9, Total Bilirubin 0.6, AST 37 H, ALT 20, Alkaline Phosphatase 63, Troponin I < 0.01, NT-Pro-B Natriuret Pep 127 H, Total Protein 7.1, Albumin 4.2, Globulin 2.9, Albumin/Globulin Ratio 1.4, Lipase 88 03/03/25 19:45: Urine Color Yellow, Urine Appearance Clear, Urine pH 7.0, Ur Specific [place] <= 1.005, Urine Protein Negative, Urine Glucose (UA) Negative, Urine Ketones Negative, Urine Blood Negative, Urine Nitrate Negative, Urine Bilirubin Negative, Urine Urobilinogen 0.2, Ur Leukocyte Esterase Negative, Urine RBC None, Urine WBC Occasional, Ur Squamous Epith Cells Occasional, Urine Bacteria Trace 03/03/25 20:00: Troponin I < 0.01 Response Orders (Tests/Meds): ED MEDICATIONS Generic Name Dose Route Start Last Admin Trade Name Freq PRN Reason Stop Dose Admin Sodium Chloride 8 ml 03/03/25 16:43 03/03/25 17:22 Sodium Chloride 0.9% 10ml Vial IV 04/02/25 16:42 8 ml NEEDED PRN Administration dilute pepcid Sodium Chloride 10 ml 03/03/25 20:37 03/03/25 20:38 Sodium Chloride 0.9% 10ml Syr (Rad Only) IV 04/02/25 20:36 10 ml NEEDED PRN Administration Maintain IV Site Discontinued Medications Generic Name Dose Route Start Last Admin Trade Name Freq PRN Reason Stop Dose Admin Diazepam 2.5 mg 03/03/25 18:37 03/03/25 19:13 Diazepam 10mg/2ml Syringe IV 03/03/25 18:38 2.5 mg ONCE ONE Administration Famotidine 20 mg 03/03/25 16:43 03/03/25 17:22 Famotidine 20mg/2ml Vial IV 03/03/25 16:44 20 mg ONCE ONE Administration Magnesium Sulfate 2 gm in 50 mls @ 50 mls/hr 03/03/25 16:43 03/03/25 17:22 Magnesium Sulfate 2gm/50ml Premix IV 03/03/25 17:42 50 mls/hr ONCE ONE Administration Iopamidol 70 ml 03/03/25 18:13 03/03/25 18:17 Iopamidol-370 (76%);100ml Bottle IV 03/03/25 18:14 70 ml ONCE ONE Administration Iopamidol 75 ml 03/03/25 20:37 03/03/25 20:38 Iopamidol-370 (76%);100ml Bottle IV 03/03/25 20:38 75 ml ONCE ONE Administration Ketorolac Tromethamine 30 mg 03/03/25 20:25 03/03/25 20:30 Ketorolac 30mg/Ml Vial IV 03/03/25 20:26 30 mg ONCE ONE Administration Morphine Sulfate 4 mg 03/03/25 17:14 03/03/25 17:21 Morphine 4mg/Ml Syringe IV 03/03/25 17:15 4 mg ONCE ONE Administration Morphine Sulfate 4 mg 03/03/25 20:25 03/03/25 20:31 Morphine 4mg/Ml Syringe IV 03/03/25 20:26 4 mg ONCE ONE Administration Ondansetron HCl 4 mg 03/03/25 17:14 03/03/25 17:22 Ondansetron 4mg/2ml Vial IV 03/03/25 17:15 4 mg ONCE ONE Administration Ondansetron HCl 4 mg 03/03/25 20:25 03/03/25 20:30 Ondansetron 4mg/2ml Vial IV 03/03/25 20:26 4 mg ONCE ONE Administration Sodium Chloride 10 ml 03/03/25 18:13 03/03/25 18:17 Sodium Chloride 0.9% 10ml Syr (Rad Only) IV 03/03/25 18:14 10 ml ONCE ONE Administration Sodium Chloride 50 ml 03/03/25 18:13 03/03/25 18:17 0.9 % Sodium Chloride 50 Ml Vial IV 03/03/25 18:14 50 ml ONCE ONE Administration ORDERS Category Date Time Status CT abdomen pelvis w con Stat Cat Scan 03/03/25 20:21 Completed CTA Chest [CT angio chest PE protocol] Stat Cat Scan 03/03/25 16:43 Completed BNP [NT Pro Brain Natriuretic Pep.] Stat Lab 03/03/25 17:08 Completed CBC [Complete Blood Count Auto Diff] Stat Lab 03/03/25 17:08 Completed Comprehensive Metabolic Panel Stat Lab 03/03/25 17:08 Completed Lipase Stat Lab 03/03/25 17:08 Completed Magnesium Stat Lab 03/03/25 17:08 Completed Trop I [Troponin I] Stat Lab 03/03/25 17:08 Completed Troponin I Q3H Lab 03/03/25 20:00 Completed Troponin I Q3H Lab 03/03/25 22:45 Ordered UA [Urinalysis and Microscopic] Stat Lab 03/03/25 19:45 Completed ECG Data Tracing #1: ECG Narrative: Independently read by me rate is 44, rhythm is regular, axis is normal, no ST elevation in anatomical contiguous leads, QTc 426 MDM Narrative Medical Decision Narrative: patient is a 69-year-old female presenting to the emergency department for evaluation of chest pain and shortness of breath with swelling in bilateral feet and ankles. Patient is hemodynamically stable and nontoxic-appearing upon arrival, afebrile. Differential diagnosis includes CHF exacerbation, anxiety, hypertension, among others. Workup will be conducted with hematologic labs, specific imaging. Initial workup reviewed by me hematologic labs are remarkable for negative troponin, BNP was low and normal electrolytes. Still waiting for formal CT report to return. Given report to Dr. Prajapati. Willian Prajapati: Upon assumption of care patient is hemodynamically stable. Workup thus far is reviewed by me, hematologic labs are nonactionable no significant leukocytosis no transfusable anemia no GENNA or critical electrolyte abnormality no evidence of obstructive hepatopathy troponin undetectably low lipase normal. CT imaging was necessitated by elevated D-dimer, no pulmonary emboli, dilated common bile duct. Upon repeat questioning patient states she has had dysuria with some hematuria, vague right upper quadrant abdominal pain and epigastric pain with decreased p.o. intake for the last 72 hours. She has distractible exam and is not tender. She has been switching her diuresis regimens around at the behest of her product tester. Will get a second troponin and will now add a urinalysis as well as CT of the abdomen pelvis IV contrast to evaluate for emergent pathology. Pain control with morphine and antiemetic with Zofran. CT abdomen pelvis, bile duct 16 mm with a questionable noncalcified stone at the ampulla. Given that patient has right upper quadrant pain radiating to her chest and epigastrium even though she does not have evidence of overt obstruction on her labs she may have a nonobstructing stone and further evaluation is warranted. Case discussed with hospital medicine agreed management of admit the patient their service for continued evaluation at this time.
[2025-03-03 17:17] LABS: Hematocrit 33.2 % (37.0-47.0); Hemoglobin 10.8 g/dL (12.2-16.2); Immature Granulocytes % 0.2 %; Mean Corpuscular HGB Conc 32.5 g/dL (31.8-35.4); Mean Corpuscular Hemoglobin 28.9 pg (27.0-31.2); Mean Corpuscular Volume 88.8 fl (81-99); Nucleated Red Blood Cells % 0 %; Platelet Count 230 K/mm3 (142-424); Red Blood Count 3.74 M/mm3 (4.20-5.40); Red Cell Distribution Width-SD 41.8 fL; White Blood Count 6.3 K/mm3 (4.8-10.8)
[2025-03-03] MEDS: MORPHINE 4MG/ML SYRINGE 4 MG IV ×2 (17:21→20:31)
[2025-03-03] MEDS: MAGNESIUM SULFATE IN WATER 2 GM/50 ML PIGGYBACK IV (17:22)
[2025-03-03] MEDS: ONDANSETRON 4MG/2ML VIAL 4 MG IV ×2 (17:22→20:30)
[2025-03-03] MEDS: FAMOTIDINE 20MG/2ML VIAL 20 MG IV ×2 (17:22→23:16)
[2025-03-03] MEDS: SODIUM CHLORIDE 0.9% 10ML VIAL 8 ML IV (17:22)
[2025-03-03 17:31] LABS: Alanine Aminotransferase 20 U/L (12-78); Albumin Level 4.2 g/dl (3.5-5.0); Albumin/Globulin Ratio 1.4 (1.1-1.8); Alkaline Phosphatase 63 U/L (38-126); Anion Gap 7.8 mEq/L (5-15); Aspartate Amino Transferase 37 U/L (14-36); Bilirubin,Total 0.6 mg/dl (0.2-1.3); Blood Urea Nitrogen 16 mg/dl (7-17); Calcium 8.9 mg/dl (8.4-10.2); Carbon Dioxide 27 mmol/L (22.0-30.0); Chloride 108 mmol/L (98-107); Creatinine Clearance Estimated 64 mL/min (50-200); Creatinine,Serum 1.00 mg/dl (0.52-1.04); Estimated Glomerular Filt Rate 55 ml/min (>60); GFR (African American) 67 ML/MIN (>60); Globulin 2.9 g/dL (1.3-3.2); Glucose 102 mg/dl (74-100); Lipase 88 U/L (23-300); Magnesium 1.9 mg/dl (1.6-2.3); Potassium 3.8 mmoL/L (3.5-5.1); Sodium 139 mmol/L (136-145); Total Protein,Serum 7.1 g/dl (6.3-8.2)
[2025-03-03 17:43] LABS: NT Pro Brain Natriuretic Pep. 127 pg/mL (0-125)
[2025-03-03 18:02] LABS: Troponin I < 0.01 ng/ml (0.00-0.034)
[2025-03-03] MEDS: IOPAMIDOL-370 (76%);100ML BOTTLE 70 ML IV (18:17)
[2025-03-03] MEDS: 0.9 % SODIUM CHLORIDE 50 ML VIAL IV (18:17)
[2025-03-03] MEDS: SODIUM CHLORIDE 0.9% 10ML SYR (RAD ONLY) 10 ML IV ×2 (18:17→20:38)
[2025-03-03] MEDS: diazePAM 10MG/2ML SYRINGE 2.5 MG IV (19:13)
--- NOTE | 2025-03-03 20:21 | CT_ITS ---
PROCEDURE INFORMATION: Exam: CT Abdomen And Pelvis With Contrast Exam date and time: 03/03/2025 8:37 PM Age: 69 years old Clinical indication: Abdominal pain; Additional info: Vague ruq pain poss dilated cbd TECHNIQUE: Imaging protocol: Computed tomography of the abdomen and pelvis with contrast. Radiation optimization: All CT scans at this facility use at least one of these dose optimization techniques: automated exposure control; mA and/or kV adjustment per patient size (includes targeted exams where dose is matched to clinical indication); or iterative reconstruction. Contrast material: ISOVUE; Contrast volume: 75 ml; Contrast route: IV; COMPARISON: CT ABDOMEN PELVIS W CON 08/27/2024 1:41 PM FINDINGS: Liver: Normal. No mass. Gallbladder and biliary ducts: The common duct measures 16 mm in diameter, previously 12 mm. There is a questionable noncalcified stone at the ampullary on image 45 series 3. Pancreas: Mild pancreatic atrophy. Spleen: Normal. No splenomegaly. Adrenal glands: Normal. No mass. Kidneys and ureters: Low attenuation renal lesions measuring up to 9 mm in diameter are incompletely characterized, but are likely cysts. No followup imaging is warranted. Stomach and bowel: Moderate amount of stool throughout the colon. Appendix: Appendix is likely surgically absent. Intraperitoneal space: Unremarkable. No free air. No significant fluid collection. Vasculature: The arteries demonstrate mild atherosclerotic disease. Lymph nodes: Unremarkable. No enlarged lymph nodes. Urinary bladder: Unremarkable as visualized. Reproductive: Status post hysterectomy. Bones/joints: Unremarkable. No acute fracture. Soft tissues: There is a healed anterior abdominal wall incision. Other findings: Please see separate report for CT chest. Stigmata of old granulomatous disease. IMPRESSION: The common duct measures 16 mm in diameter, previously 12 mm. There is a questionable noncalcified stone at the ampullary on image 45 series 3. If there is clinical evidence of biliary obstruction, consider MRCP to evaluate for obstructing mass versus choledocholithiasis. COMMENTS: Consistent with the [employer]'s Incidental Findings Committee white paper (J Am Ember Radiol 2018): Any incidental renal lesion less than 1 cm or classified as too small to characterize, or any incidental cystic renal lesion characterized as simple-appearing, is likely benign. No follow-up imaging is recommended for these lesions per consensus recommendations based on imaging criteria.
[2025-03-03 20:28] LABS: Microscopic, Urine URINE MICROSCOPIC (MICROSCOPIC)
[2025-03-03 20:30] LABS: Bilirubin,Urine Negative (Negative); Color,Urine YELLOW (Yellow); Glucose,Urine (UA) Negative (Negative); Ketones,Urine Negative (Negative); Leukocyte Esterase,Urine Negative (Negative); PH,Urine 7.0 (5.0-8.5); Protein,Urine Negative (Negative); Specific Gravity, Urine <= 1.005 (1.005-1.030); Urobilinogen,Urine 0.2 EU/dl (0.2)
[2025-03-03] MEDS: KETOROLAC 30MG/ML VIAL 30 MG IV (20:30)
[2025-03-03 20:31] LABS: Troponin I < 0.01 ng/ml (0.00-0.034)
[2025-03-03] MEDS: IOPAMIDOL-370 (76%);100ML BOTTLE 75 ML IV (20:38)
[2025-03-03 20:41] LABS: Bacteria,Urine Trace /lpf; Squamous Epithelial Cell,Urine Occasional #/hpf (0-5); WBC,Urine Occasional #/hpf (0-3)
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
[2025-03-03] MEDS: 0.9 % SODIUM CHLORIDE 1000ML 1,000 ML 100 ML IV (23:17)
[2025-03-04] VITALS: BP 136/78; PULSE 51; RESP 15; TEMP 36.5; O2SAT 93
[2025-03-04 00:17] LABS: Troponin I < 0.01 ng/ml (0.00-0.034)
[2025-03-04] MEDS: KETOROLAC 30MG/ML VIAL 15 MG IV ×2 (00:20→11:50)
[2025-03-04] MEDS: ONDANSETRON 4MG/2ML VIAL 4 MG IV (00:21)
--- NOTE | 2025-03-04 02:26 | PC.NURSE ---
Pt AOx4. New admit this shift. C/o nausea and pain upon admit. Administered toradol and zofran prn, which allowed pt to sleep. Currently resting in bed with eyes closed. Respirations even and unlabored. Bed is low, locked, and call light is in reach.
[2025-03-04 03:52] VITALS: BP 132/88; PULSE 52; RESP 18; TEMP 36.5; O2SAT 96; BMI 30.9
--- NOTE | 2025-03-04 03:53 | PC.NURSE ---
Linen bags & trash bags taken out, ice filled , bedside table organized and cleaned. Pt does not need anything at this time. [id number]
[2025-03-04] MEDS: HYDROMORPHONE 2MG/ML SYRINGE 0.5 MG IV ×2 (03:55→20:12)
--- NOTE | 2025-03-04 06:09 | US_ITS ---
FINAL REPORT TECHNIQUE: Multiple transverse and longitudinal images CLINICAL HISTORY: Right upper quadrant pain possible stone biliary d COMPARISON: None FINDINGS: Status post cholecystectomy. Moderate extrahepatic biliary ductal dilatation. Common bile duct measures up to 10 mm. No fluid collections are seen. Limited portions of the right liver are unremarkable. Right kidney demonstrates mild parenchymal atrophy. Pancreas is largely obscured. IMPRESSION: Mild extrahepatic biliary ductal dilatation. Consider MRCP for follow-up. Reviewed, Interpreted and Dictated by Santo Gerardo MD Transcribed by Amarilys Bates Authenticated and [facility]
--- NOTE | 2025-03-04 06:20 | PC.NURSE ---
Patient does not need anything at this time.
[2025-03-04 07:13] LABS: Hematocrit 30.4 % (37.0-47.0); Hemoglobin 9.8 g/dL (12.2-16.2); Immature Granulocytes % 0.2 %; Mean Corpuscular HGB Conc 32.2 g/dL (31.8-35.4); Mean Corpuscular Hemoglobin 28.8 pg (27.0-31.2); Mean Corpuscular Volume 89.4 fl (81-99); Nucleated Red Blood Cells % 0 %; Platelet Count 210 K/mm3 (142-424); Red Blood Count 3.40 M/mm3 (4.20-5.40); Red Cell Distribution Width-SD 41.8 fL; White Blood Count 4.2 K/mm3 (4.8-10.8)
--- NOTE | 2025-03-04 07:37 | P.CONS_ITS ---
History of Present Illness *Admission Date: 03/03/25 *History of present illness: Mrs. Gonzalez is a 69-year-old female with burning epigastric abdominal pain that radiates around to the right upper quadrant and flank and into the back. 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 She also had cholecystectomy more than 20 years ago. She had 2 ERCPs which were both more than 20 years ago by me. The patient came to the ED with more excruciating pain. The patient reports having epigastric abdominal pain that radiates into the right upper quadrant and then around the flank and into the back. She has had a lot of belching, bloating, nausea and early satiety. 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 She does have a remote history of Crohn's disease and has had bowel resections in the past. The patient has had some chronic anemia and her hemoglobin and hematocrit today were 9.8 and 30.4 which is slightly declined with normocytic indices. The patient did have a CAT scan of the abdomen and pelvis yesterday that showed a dilated common bile duct to 16 mm (increased in size from 12 mm) with the appearance of a nonobstructing stone at the ampulla. Interestingly, her biliary/liver chemistries were relatively normal with total bilirubin 0.7, alkaline phosphatase 78, AST 106 and ALT 42. Her lipase was 88. The patient has not had a colonoscopy in more than 10 years ago. Her CRP in January 2025 was 2.7. The patient has not had any recent iron studies. Her tumor markers (CA 19-9 13, CEA 2.3 and AFP 2.1) were normal in October 2023. The patient did have an EGD with Dr. Kavon Jernigan in December 2023 and had a Schatzki's ring dilated to 20 mm. She has had some recurrent dysphagia. [facility] Disclaimer: The information contained in this section may have been updated after the patient was seen, as this information can be updated by other users. Medical History (Updated 03/04/25 @ 08:09 by Rasheed Vizcarra II, MD) Chronic abdominal pain Anxiety related tremor High globulin level Shakiness SOB (shortness of breath) Palpitations Bradycardia Screening for colon cancer Breast cancer screening by mammogram Crohn's disease Community acquired pneumonia Chronic kidney disease (HFpEF) heart failure with preserved ejection fraction Abnormal chest CT Schatzki's ring Sinus bradycardia Insomnia Depression Anxiety Osteoporosis Allergies History of anemia History of constipation Sphincter of Oddi dysfunction HTN (hypertension) Bilateral lower extremity edema Surgical History (Updated 03/04/25 @ 08:09 by Rasheed Vizcarra II, MD) Lipoma of back Status post cholecystectomy H/O oral surgery History of appendectomy H/O total hysterectomy History of esophagogastroduodenoscopy (EGD) History of arthroscopy of right knee Status post knee surgery History of intestinal surgery Family History Other Cancer Heart attack Social History Smoking Status: Never smoker second hand exposure: No alcohol intake: never substance use type: denies use current occupational status: disabled Travel in the last 8 weeks?: None household members: none housing: apartment number of children: 2 current occupational exposures/hazards: No caffeine: Yes Have you lived/traveled outside [place] in past 30 days?: No Contact w/someone who lives/traveled outside US past 30 days?: No Exposure to someone with infectious disease in past 14 days?: No Do you have a fever (greater than 100.4 F or 38 C)?: No Have you tested positive for COVID-19?: No Exposed to someone with COVID-19 in past 14 days?: No Do you have a sore throat?: No Do you have a cough?: No Do you have any weakness?: Yes Do you have any diarrhea?: No Are you experiencing any unusual bleeding?: No Do you have any muscle aches/pain?: No Do you have any abdominal pain?: No Are you experiencing loss of taste or smell?: No Review of Systems *Neurologic Neurologic: Reports as per [facility] Meds Home Medications and Allergies Home Medications ?Medication ?Instructions ?Recorded ?Confirmed ?Type aspirin 81 mg tablet,delayed 81 mg PO DAILY 09/27/24 0 03/03/25 History release (Adult Aspirin Regimen) methocarbamol 750 mg tablet 750 mg PO TID PRN muscle s pasm #30 11/29/24 03/03/25 Rx tabs ondansetron 4 mg disintegrating 4 mg PO Q8H PRN nausea and 11/30/24 03/03/25 Rx tablet vomiting 5 days #20 tabs albuterol sulfate 90 mcg/actuation 2 puff inhalation Q 4-6H PRN 12/03/24 03/03/25 Rx aerosol inhaler shortness of breath or wheez ing #18 grams albuterol sulfate 2.5 mg/3 mL 2.5 mg (3 mL) inhalation Q4-6H PRN 12/04/24 03/03/25 Rx (0.083 %) solution for nebulization shortness of breat h or wheezing #75 mL oxybutynin chloride 5 mg tablet See Rx Instructions .R oute 12/13/24 03/03/25 Rx .COMPLEX #30 tabs spironolactone 25 mg tablet 12.5 mg (1/2 x 25 mg) PO D AILY #90 12/24/24 03/03/25 Rx (Aldactone) tabs fluticasone propionate 50 1 spray intranasal BID #16 g anatoliy 01/10/25 03/03/25 Rx mcg/actuation nasal spray,suspension (Allergy Relief (fluticasone)) alendronate 10 mg tablet 10 mg PO DAILY #30 tabs 02/1103/03/25 Rx diazepam 5 mg tablet 5 mg PO TID PRN anxiety #90 tabs 02/21/25 03/03/25 Rx escitalopram oxalate 10 mg tablet 10 mg PO DAILY #30 t abs 02/24/25 03/03/25 Rx (Lexapro) escitalopram oxalate 10 mg tablet 10 mg PO DAILY 03/0303/03/25 History (Lexapro) furosemide 40 mg tablet 40 mg PO DAILY 30 days #30 t abs 03/03/25 03/03/25 Rx lisinopril 20 mg tablet 10 mg PO DAILY 03/03/2502/12 History New Prescriptions to Start Prescriptions: Allergies Allergy/AdvReac Type Severity Reaction Status Date / Time cephalexin (From Keflex) Allergy Severe Difficulty Verified 03/03/25 15:35 Breathing prochlorperazine Allergy Severe Swelling Verified 03/03/25 15:35 (PROCHLORPERAZINE) of Lip/Tongue/Throat codeine (CODEINE) Allergy Unknown VOMITING / Verified 03/03/25 15:35 NAUSEA prednisone (PREDNISONE) Allergy Unknown BP ISSUES Verified 03/03/25 15:35 promethazine (From PHENERGAN) Allergy Unknown Unknown Verified 03/03/25 15:35 allergy reaction metoclopramide (From Reglan) Allergy Nausea Verified 03/03/25 15:35 hydroxyzine (From Vistaril) AdvReac Hives Verified 03/03/25 15:35 Exam (Inpt) Vital signs and Labs for Last 24 Hours: Temp Pulse Resp BP Pulse Ox O2 Del Method 97.7 F 52 L 18 132/88 96 Room Air 03/04/25 03:52 03/04/25 03:52 03/04/25 03:52 03/04/25 03:52 03/04/25 03:52 03/04/25 06:55 Laboratory Results - last 24 hr 03/03/25 17:08: WBC 6.3, RBC 3.74 L, Hgb 10.8 L, Hct 33.2 L, MCV 88.8, MCH 28.9, MCHC 32.5, RDW 12.8, Plt Count 230, MPV 11.8 H, Neut % (Auto) 51.0, Lymph % (Auto) 32.3, [place] % (Auto) 8.6, Eos % (Auto) 6.9, Baso % (Auto) 1.0, Neut # (Auto) 3.2, Lymph # (Auto) 2.0, [place] # (Auto) 0.5, Eos # (Auto) 0.4, Baso # (Auto) 0.1, Sodium 139, Potassium 3.8, Chloride 108 H, Carbon Dioxide 27, Anion Gap 7.8, BUN 16, Creatinine 1.00, Estimated Creat Clear 64, Estimated GFR 55 L, Est GFR ( Amer) 67, Glucose 102 H, Calcium 8.9, Magnesium 1.9, Total Bilirubin 0.6, AST 37 H, ALT 20, Alkaline Phosphatase 63, Troponin I < 0.01, N T-Pro-B Natriuret Pep 127 H, Total Protein 7.1, Albumin 4.2, Globulin 2.9, Albumin/Globulin Ratio 1.4, Lipase 88 03/03/25 19:45: Urine Color Yellow, Urine Appearance Clear, Urine pH 7.0, Ur Specific [place] <= 1.005, Urine Protein Negative, Urine Glucose (UA) Negative, Urine Ketones Negative, Urine Blood Negative, Urine Nitrate Negative, Urine Bilirubin Negative, Urine Urobilinogen 0.2, Ur Leukocyte Esterase Negative, Urine RBC None, Urine WBC Occasional, Ur Squamous Epith Cells Occasional, Urine Bacteria Trace 03/03/25 20:00: Troponin I < 0.01 03/03/25 23:35: Troponin I < 0.01 03/04/25 06:39: WBC 4.2 L D, RBC 3.40 L, Hgb 9.8 L, Hct 30.4 L, MCV 89.4, MCH 28.8, MCHC 32.2, RDW 12.8, Plt Count 210, MPV 12.1 H, Neut % (Auto) 44.5, Lymph % (Auto) 36.8, [place] % (Auto) 9.9 H, Eos % (Auto) 7.9, Baso % (Auto) 0.7, Neut # (Auto) 1.9, Lymph # (Auto) 1.5, [place] # (Auto) 0.4, Eos # (Auto) 0.3, Baso # (Auto) 0.0 I & O for Labs for Last 24 Hours: Intake & Output 03/01/25 03/02/25 03/03/25 03/04/25 23:59 23:59 23:59 23:59 Intake Total 719 / 719 Balance 719 / 719 Weight 179 lb 14.4 oz 181 lb 8 oz Comments:: Normoactive bowel sounds, mild to moderate tenderness in the epigastrium, mild gaseous distention, no masses, no hernias, no rebound or guarding Results Labs 03/04/25 06:39 03/04/25 06:39 Labs: Laboratory Results - last 24 hr 03/03/25 17:08: WBC 6.3, RBC 3.74 L, Hgb 10.8 L, Hct 33.2 L, MCV 88.8, MCH 28.9, MCHC 32.5, RDW 12.8, Plt Count 230, MPV 11.8 H, Neut % (Auto) 51.0, Lymph % (Auto) 32.3, [place] % (Auto) 8.6, Eos % (Auto) 6.9, Baso % (Auto) 1.0, Neut # (Auto) 3.2, Lymph # (Auto) 2.0, [place] # (Auto) 0.5, Eos # (Auto) 0.4, Baso # (Auto) 0.1, Sodium 139, Potassium 3.8, Chloride 108 H, Carbon Dioxide 27, Anion Gap 7.8, BUN 16, Creatinine 1.00, Estimated Creat Clear 64, Estimated GFR 55 L, Est GFR ( Amer) 67, Glucose 102 H, Calcium 8.9, Magnesium 1.9, Total Bilirubin 0.6, AST 37 H, ALT 20, Alkaline Phosphatase 63, Troponin I < 0.01, N T-Pro-B Natriuret Pep 127 H, Total Protein 7.1, Albumin 4.2, Globulin 2.9, Albumin/Globulin Ratio 1.4, Lipase 88 03/03/25 19:45: Urine Color Yellow, Urine Appearance Clear, Urine pH 7.0, Ur Specific [place] <= 1.005, Urine Protein Negative, Urine Glucose (UA) Negative, Urine Ketones Negative, Urine Blood Negative, Urine Nitrate Negative, Urine Bilirubin Negative, Urine Urobilinogen 0.2, Ur Leukocyte Esterase Negative, Urine RBC None, Urine WBC Occasional, Ur Squamous Epith Cells Occasional, Urine Bacteria Trace 03/03/25 20:00: Troponin I < 0.01 03/03/25 23:35: Troponin I < 0.01 03/04/25 06:39: WBC 4.2 L D, RBC 3.40 L, Hgb 9.8 L, Hct 30.4 L, MCV 89.4, MCH 28.8, MCHC 32.2, RDW 12.8, Plt Count 210, MPV 12.1 H, Neut % (Auto) 44.5, Lymph % (Auto) 36.8, [place] % (Auto) 9.9 H, Eos % (Auto) 7.9, Baso % (Auto) 0.7, Neut # (Auto) 1.9, Lymph # (Auto) 1.5, [place] # (Auto) 0.4, Eos # (Auto) 0.3, Baso # (Auto) 0.0 Assessment and Plan *Assessment and plan (1) Right upper quadrant abdominal pain: Status: Acute Category: Medical Code(s): R10.11 - Right upper quadrant pain (2) Epigastric pain: Status: Acute Category: Medical Code(s): R10.13 - Epigastric pain (3) Abnormal findings on imaging of biliary tract: Status: Acute Category: Medical Code(s): R93.2 - Abnormal findings on diagnostic imaging of liver and biliary tract (4) Common bile duct dilation: Status: Acute Category: Medical Code(s): K83.8 - Other specified diseases of biliary tract (5) History of Crohn's disease: Status: Acute Category: Medical Code(s): Z87.19 - Personal history of other diseases of the digestive system (6) Dysphagia: Status: Acute Category: Medical Code(s): R13.10 - Dysphagia, unspecified (7) Dyspepsia: Status: Acute Category: Medical Code(s): R10.13 - Epigastric pain (8) Choledocholithiasis: Status: Acute Category: Medical Code(s): K80.50 - Calculus of bile duct without cholangitis or cholecystitis without obstruction (9) History of sphincterotomy of sphincter of Oddi: Status: Acute Category: Surgical Code(s): Z98.890 - Other specified postprocedural states (10) Anemia: Status: Acute Category: Medical Code(s): D64.9 - Anemia, unspecified Plan 1. Right upper quadrant abdominal pain with prior history of sphincter of Oddi dysfunction and new CAT scan showing increased dilation of CBD to 16 mm (from 12 mm) in the presence of a possible noncalcified stone in the bile duct. I will plan ERCP tomorrow. Interestingly, her biliary chemistries are not significantly elevated. 2. Dysphagia. It is sometimes difficult to dilate the esophagus at the time of ERCP but we will consider removal of side-viewing scope and using forward- viewing scope for esophageal dilation. 3. Chronic functional dyspepsia and IBS. I will evaluate upper digestive tract at time of ERCP. 4. History of Crohn's disease. Her CRP has been normal. I will send fecal calprotectin, CRP and iron studies and we will need to consider colonoscopy since it has been more than 10 years. 5. Anemia.
[2025-03-04 07:38] LABS: Alanine Aminotransferase 42 U/L (12-78); Albumin Level 3.6 g/dl (3.5-5.0); Albumin/Globulin Ratio 1.4 (1.1-1.8); Alkaline Phosphatase 78 U/L (38-126); Anion Gap 5.1 mEq/L (5-15); Aspartate Amino Transferase 106 U/L (14-36); Bilirubin,Total 0.7 mg/dl (0.2-1.3); Blood Urea Nitrogen 15 mg/dl (7-17); Calcium 8.1 mg/dl (8.4-10.2); Carbon Dioxide 27 mmol/L (22.0-30.0); Chloride 111 mmol/L (98-107); Creatinine Clearance Estimated 63 mL/min (50-200); Creatinine,Serum 1.10 mg/dl (0.52-1.04); Estimated Glomerular Filt Rate 49 ml/min (>60); GFR (African American) 60 ML/MIN (>60); Globulin 2.6 g/dL (1.3-3.2); Glucose 95 mg/dl (74-100); Magnesium 2.5 mg/dl (1.6-2.3); Potassium 4.1 mmoL/L (3.5-5.1); Sodium 139 mmol/L (136-145); Total Protein,Serum 6.2 g/dl (6.3-8.2)
[2025-03-04 08:00] VITALS: BP 127/75; PULSE 52; RESP 20; TEMP 36.6; O2SAT 100
[2025-03-04] MEDS: FAMOTIDINE 20MG/2ML VIAL 20 MG IV (08:18)
[2025-03-04] MEDS: SODIUM CHLORIDE 0.9% 10ML VIAL 8 ML IV (08:18)
[2025-03-04] MEDS: 0.9 % SODIUM CHLORIDE 1000ML 1,000 ML 100 ML IV ×2 (08:19→19:12)
[2025-03-04 08:24] LABS: Iron 128 ug/dL (37-170)
[2025-03-04 08:31] LABS: C-Reactive Protein 6.6 mg/L (0-4)
[2025-03-04 08:34] LABS: Total Iron Binding Capacity 287 ug/dL (265-497)
--- NOTE | 2025-03-04 08:42 | HMH.PHAINT1 ---
Pharmacy Intervention Comments: HOME MEDICATION LIST VERIFIED USING LIST FROM OUTPATIENT PHARMACY, CARDIOLOGY OFFICE NOTES AND PT INTERVIEW BY NURSE
[2025-03-04 09:03] LABS: Ferritin 12.4 ng/ml (11.1-264)
--- NOTE | 2025-03-04 11:08 | P.PN_ITS ---
<Statement entered by Papo Ramirez MD - 03/04/25 15:51> Rounded on patient after nurse practitioner. Personally examined and interviewed patient. Agree with exam findings and care plan as documented. Subjective *Date: 03/04/25 *Time: 15:26 Interval history: Patient up in bed, complains of moderate right upper quadrant and epigastric pain. Patient is currently taking Pepcid twice daily, will switch to Protonix twice daily. GI cocktail now to see if it provides some relief. Patient was n.p.o. this morning due to possible ERCP today; patient will have ERCP tomorrow, will advance diet to clear liquids this morning. Overall she states she is feeling okay and is agreeable with the plan. Medical Exam Vital signs and Labs for Last 24 Hours: Vital Signs Temp Pulse Pulse Resp BP BP Pulse Ox 03/04/25 09:00 03/04/25 08:00 100 03/04/25 08:00 97.9 F 52 L 20 127/75 100 03/04/25 06:55 03/04/25 05:00 03/04/25 03:52 97.7 F 52 L 18 132/88 96 03/04/25 03:00 03/04/25 01:00 03/04/25 00:00 97.7 F 51 L 15 136/78 93 L 03/03/25 23:00 03/03/25 22:54 54 L 17 171/84 H 96 03/03/25 22:20 03/03/25 22:15 97.8 F 61 16 171/84 H 03/03/25 22:01 53 L 95 03/03/25 22:01 171/84 H 03/03/25 21:31 53 L 95 03/03/25 21:31 157/79 H 03/03/25 21:00 178/95 H 03/03/25 20:47 55 L 97 03/03/25 20:45 54 L 96 03/03/25 20:43 60 96 03/03/25 20:31 184/91 H 03/03/25 20:00 167/93 H 03/03/25 19:30 165/89 H 03/03/25 19:01 52 L 98 03/03/25 19:01 161/87 H 03/03/25 18:26 61 18 167/85 H 99 03/03/25 17:31 60 18 143/70 H 95 03/03/25 17:08 55 L 18 133/63 97 03/03/25 16:36 97.8 F 55 L 16 173/87 H 100 03/03/25 16:33 173/87 H O2 Del Method 03/04/25 09:00 Room Air 03/04/25 08:00 Room Air 03/04/25 08:00 Room Air 03/04/25 06:55 Room Air 03/04/25 05:00 Room Air 03/04/25 03:52 Room Air 03/04/25 03:00 Room Air 03/04/25 01:00 Room Air 03/04/25 00:00 Room Air 03/03/25 23:00 Room Air 03/03/25 22:54 Room Air 03/03/25 22:20 Room Air 03/03/25 22:15 Room Air 03/03/25 22:01 03/03/25 22:01 03/03/25 21:31 03/03/25 21:31 03/03/25 21:00 03/03/25 20:47 03/03/25 20:45 03/03/25 20:43 03/03/25 20:31 03/03/25 20:00 03/03/25 19:30 03/03/25 19:01 03/03/25 19:01 03/03/25 18:26 03/03/25 17:31 03/03/25 17:08 03/03/25 16:36 Room Air 03/03/25 16:33 Intake and Output 03/03/25 03/04/25 03/04/25 23:59 07:59 15:59 Intake Total 719 / 925 206 / 925 Output Total 100 / 100 Balance 719 / 825 106 / 825 Intake: Intake, Total IV Amount 719 / 925 206 / 925 0.9 % Sodium Chloride 1000ML 1, 719 / 925 206 / 925 000 ml @ 100 mls/hr IV .Q10H [facility] Rx#:[id number] Output: Output, Urine Amount 100 / 100 Other: Number of Unmeasured Voids 0 Weight 81.601 kg 82.327 kg Patient Weight 03/04/25 23:59 Weight 82.327 kg Laboratory Results - last 24 hr 03/03/25 17:08: WBC 6.3, RBC 3.74 L, Hgb 10.8 L, Hct 33.2 L, MCV 88.8, MCH 28.9, MCHC 32.5, RDW 12.8, Plt Count 230, MPV 11.8 H, Neut % (Auto) 51.0, Lymph % (Auto) 32.3, [place] % (Auto) 8.6, Eos % (Auto) 6.9, Baso % (Auto) 1.0, Neut # (Auto) 3.2, Lymph # (Auto) 2.0, [place] # (Auto) 0.5, Eos # (Auto) 0.4, Baso # (Auto) 0.1, Sodium 139, Potassium 3.8, Chloride 108 H, Carbon Dioxide 27, Anion Gap 7.8, BUN 16, Creatinine 1.00, Estimated Creat Clear 64, Estimated GFR 55 L, Est GFR ( Amer) 67, Glucose 102 H, Calcium 8.9, Magnesium 1.9, Total Bilirubin 0.6, AST 37 H, ALT 20, Alkaline Phosphatase 63, Troponin I < 0.01, NT-Pro-B Natriuret Pep 127 H, Total Protein 7.1, Albumin 4.2, Globulin 2.9, Albumin/Globulin Ratio 1.4, Lipase 88 03/03/25 19:45: Urine Color Yellow, Urine Appearance Clear, Urine pH 7.0, Ur Specific [place] <= 1.005, Urine Protein Negative, Urine Glucose (UA) Negative, Urine Ketones Negative, Urine Blood Negative, Urine Nitrate Negative, Urine Bilirubin Negative, Urine Urobilinogen 0.2, Ur Leukocyte Esterase Negative, Urine RBC None, Urine WBC Occasional, Ur Squamous Epith Cells Occasional, Urine Bacteria Trace 03/03/25 20:00: Troponin I < 0.01 03/03/25 23:35: Troponin I < 0.01 03/04/25 06:39: WBC 4.2 L D, RBC 3.40 L, Hgb 9.8 L, Hct 30.4 L, MCV 89.4, MCH 28.8, MCHC 32.2, RDW 12.8, Plt Count 210, MPV 12.1 H, Neut % (Auto) 44.5, Lymph % (Auto) 36.8, [place] % (Auto) 9.9 H, Eos % (Auto) 7.9, Baso % (Auto) 0.7, Neut # (Auto) 1.9, Lymph # (Auto) 1.5, [place] # (Auto) 0.4, Eos # (Auto) 0.3, Baso # (Auto) 0.0, Sodium 139, Potassium 4.1, Chloride 111 H, Carbon Dioxide 27, Anion Gap 5.1, BUN 15, Creatinine 1.10 H, Estimated Creat Clear 63, Estimated GFR 49 L , Est GFR ( Amer) 60, Glucose 95, Calcium 8.1 L, Magnesium 2.5 H D, Iron 128, TIBC 287, Iron Saturation 44.10743, Ferritin 12.4 D, Total Bilirubin 0.7, AST 106 H D, ALT 42 D, Alkaline Phosphatase 78, C-Reactive Protein 6.6 H, Total Protein 6.2 L, Albumin 3.6 D, Globulin 2.6, Albumin/Globulin Ratio 1.4 I & O for Labs for Last 24 Hours: Intake & Output 03/01/25 03/02/25 03/03/25 03/04/25 23:59 23:59 23:59 23:59 Intake Total 925 / 925 Output Total 100 / 100 Balance 825 / 825 Weight 81.601 kg 82.327 kg Constitutional: Present no acute distress, chronically ill appearing and cooperative Head: Present atraumatic Neck: Present normal inspection Respiratory: Present CTA bilaterally, able to speak in complete sentences and symmetric chest movement Cardiac: Present Reg Rate and Rhythm GI: Present soft, tenderness and normal bowel sounds; Absent distention Rectal (female): Present deferred (female): Present deferred Extremities: Present normal inspection and full ROM; Absent tenderness or edema Skin: Present intact and dry Neuro: Present alert, awake and oriented x 3 Assessment and Plan *Assessment and plan (1) Right upper quadrant abdominal pain: Status: Acute Category: Medical Code(s): R10.11 - Right upper quadrant pain (2) Epigastric pain: Status: Acute Category: Medical Code(s): R10.13 - Epigastric pain (3) Abnormal findings on imaging of biliary tract: Status: Acute Category: Medical Code(s): R93.2 - Abnormal findings on diagnostic imaging of liver and biliary tract (4) Common bile duct dilation: Status: Acute Category: Medical Code(s): K83.8 - Other specified diseases of biliary tract (5) Dysphagia: Status: Acute Category: Medical Code(s): R13.10 - Dysphagia, unspecified (6) Choledocholithiasis: Status: Acute Category: Medical Code(s): K80.50 - Calculus of bile duct without cholangitis or cholecystitis without obstruction (7) Anemia: Status: Acute Category: Medical Code(s): D64.9 - Anemia, unspecified (8) Anxiety: Status: Acute Category: Medical Code(s): F41.9 - Anxiety disorder, unspecified (9) Acute on chronic diastolic heart failure: Status: Acute Category: Medical Code(s): I50.33 - Acute on chronic diastolic (congestive) heart failure (10) Dyspnea: Status: Acute Category: Medical Code(s): R06.00 - Dyspnea, unspecified (11) Depression: Status: Acute Category: Medical Code(s): F32.A - Depression, unspecified Plan Ms. Gonzalez is a 69-year-old female who presented to the emergency department yesterday evening with complaints of worsening right upper quadrant pain. She states the pain has been intermittent for the last few months, but worse this week. Patient does have a history of cholecystectomy, Crohn's disease, bowel resection. Patient states that the pain is worse with eating and typically is followed with nausea and occasional vomiting. She does states she also has a lot of dry heaves. She denies diarrhea, constipation. Abdominal CT shows dilated common duct to 16 mm and possible noncalcified stone at the ampullary. #Right upper quadrant pain #Epigastric pain #Abnormal findings on imaging of biliary tract #Bile duct dilation ? Patient abdominal CT shows dilated common duct to 16 mm and possible noncalcified stone at the ambulatory. Patient is having continued intermittent right upper quadrant and epigastric pain. Patient has been n.p.o. but will advance diet to clears for lunch, low-fat diet for dinner if clears are tolerated. Patient scheduled for ERCP tomorrow with Dr. Vizcarra. ?Protonix 40 mg twice daily ordered for epigastric indigestion. Will also try GI cocktail. ?LFTs very slightly elevated, AST 106, ALT 42. Total bilirubin 0.7. ?Abdominal ultrasound obtained this morning shows mild extrahepatic biliary ductal dilation. ?Will continue to monitor CMP and liver function in the a.m. #Dysphagia ? Patient does complain of some intermittent dysphagia, this is a chronic issue for her. She has had her esophagus dilated in the past. Discussed this with Dr. Vizcarra and will consider esophageal dilation tomorrow during ERCP pending procedure outcome. #Anemia ? Patient does have chronic anemia baseline hemoglobin between 10 and 11, on admission hemoglobin 10.8, today 9.8. Will continue to monitor. ?Iron studies are unremarkable iron 128, TIBC 287, iron saturation 44.5, ferritin 12.4. ?Will continue to monitor CBC in the a.m. #Hypertension #Acute on chronic diastolic heart failure ? Continue lisinopril 20 mg, spironolactone 12.5 mg, Lasix 40 mg daily. Hold aspirin 81 mg for procedure tomorrow. #Dyspnea ? DuoNebs every 6 H as needed for shortness of air. ?Patient stable on room air, 100%. #Depression #Anxiety ? Patient takes diazepam 5 mg 3 times daily as needed for anxiety, ordered in th e inpatient setting as needed. ? Patient takes Lexapro 10 mg daily, restart. DNR/DNI PT/OT consulted GI consulted Clear liquid diet, n.p.o. after midnight Ambulate as tolerated
[2025-03-04] MEDS: BELLADONNA ALKALOIDS 60 ML ML PO (11:49)
--- OUTSIDE RECORDS SUMMARY | 2025-03-04 14:02 | XMS_ITS | Clinical Summary ---
Author Organization Healthcare Address [address] [place] [address] Care Team Providers Care Netbackup Admin Name Role Phone Reuben Fong MD Primary Care Provider [phone] Social History Tobacco Use Types Packs/Day Years [...] (2 of 2 - PCV) 01/03/2019 01/03/2018 [id number] Vaccine (2 - season) 2024 11/18/2020 [facility]-Influenza [...] Insurance [employer] Care Teams Netbackup Admin Relationship Specialty Start Date End Date Reuben Fong MD [address] [place] [address] [place] [id number] PCP - General 12/25/20
--- OUTSIDE RECORDS SUMMARY | 2025-03-04 14:02 | XMS_ITS | Clinical Summary ---
Author Organization [facility] Address [address] [place] [id number] Care Team Providers Care Pouncer Name Role Phone Unavailable Primary Care Provider [...] therelease of HIV test results or diagnoses. [id number] Social History Tobacco Use Types Packs/Day Years Used Date Smoking Tobacco: Never Assessed Comments Unknown Sex and Gender Information Value Date Recorded Sex Assigned at Not on file Legal Sex Female 10:53 PM EST Gender Identity Not on file Sexual Orientation Not on file Plan of Treatment Not on file
[2025-03-04 16:00] VITALS: BP 125/75; PULSE 56; RESP 18; TEMP 36.9; O2SAT 98
[2025-03-04] MEDS: diazePAM 5MG TABLET 5 MG PO ×2 (16:37→20:12)
--- NOTE | 2025-03-04 18:27 | PC.NURSE ---
pt is A&Ox4. she is DNR/DNI. pt has had abdominal pain for several months now and will have ERCP tomorrow per dr baker. pt has no other needs at this time. call light within reach.
[2025-03-04 19:53] VITALS: BP 109/58; PULSE 56; RESP 18; TEMP 36.4; O2SAT 95
[2025-03-04] MEDS: PANTOPRAZOLE 40MG VIAL 40 MG IV (20:11)
[2025-03-04] MEDS: SODIUM CHLORIDE 0.9% 10ML VIAL 10 ML IV (20:11)
[2025-03-04] MEDS: FLUTICASONE PROP 50MCG NASAL SPRAY 16GM 1 SPRAY NS (20:12)
[2025-03-05] VITALS (18 sets, daily range): BP systolic 109–157; BP diastolic 54–79; PULSE 46–68; RESP 16–18; TEMP 36.4–36.7; O2SAT 93–100; BMI 31.8
[2025-03-05] MEDS: HYDROMORPHONE 2MG/ML SYRINGE 0.5 MG IV ×3 (00:02→21:48)
[2025-03-05] MEDS: ONDANSETRON 4MG/2ML VIAL 4 MG IV (04:36)
[2025-03-05] MEDS: 0.9 % SODIUM CHLORIDE 1000ML 1,000 ML 100 ML IV ×2 (04:39→16:28)
--- NOTE | 2025-03-05 04:45 | PC.NURSE ---
Alert and oriented. Complained of pain several times, treated per oct. Patient complained of nausea, treated per oct. Abdomen soft and tender to touch. Fluids running through IV. Uses purewick and bedside commode. NPO PMN. Call light in reach.
[2025-03-05 07:03] LABS: Hematocrit 34.0 % (37.0-47.0); Hemoglobin 10.7 g/dL (12.2-16.2); Immature Granulocytes % 0.2 %; Mean Corpuscular HGB Conc 31.5 g/dL (31.8-35.4); Mean Corpuscular Hemoglobin 28.3 pg (27.0-31.2); Mean Corpuscular Volume 89.9 fl (81-99); Nucleated Red Blood Cells % 0 %; Platelet Count 166 K/mm3 (142-424); Red Blood Count 3.78 M/mm3 (4.20-5.40); Red Cell Distribution Width-SD 42.5 fL; White Blood Count 4.8 K/mm3 (4.8-10.8)
[2025-03-05 07:14] LABS: Alanine Aminotransferase 37 U/L (12-78); Albumin Level 3.9 g/dl (3.5-5.0); Albumin/Globulin Ratio 1.3 (1.1-1.8); Alkaline Phosphatase 91 U/L (38-126); Anion Gap 8.5 mEq/L (5-15); Aspartate Amino Transferase 71 U/L (14-36); Bilirubin,Total 0.8 mg/dl (0.2-1.3); Blood Urea Nitrogen 11 mg/dl (7-17); Calcium 7.9 mg/dl (8.4-10.2); Carbon Dioxide 22 mmol/L (22.0-30.0); Chloride 113 mmol/L (98-107); Creatinine Clearance Estimated 64 mL/min (50-200); Creatinine,Serum 1.10 mg/dl (0.52-1.04); Estimated Glomerular Filt Rate 49 ml/min (>60); GFR (African American) 60 ML/MIN (>60); Globulin 2.9 g/dL (1.3-3.2); Glucose 87 mg/dl (74-100); Potassium 4.5 mmoL/L (3.5-5.1); Sodium 139 mmol/L (136-145); Total Protein,Serum 6.8 g/dl (6.3-8.2)
[2025-03-05] MEDS: KETOROLAC 30MG/ML VIAL 15 MG IV ×3 (08:33→21:11)
[2025-03-05] MEDS: FUROSEMIDE 40 MG TABLET PO (08:34)
[2025-03-05] MEDS: FLUTICASONE PROP 50MCG NASAL SPRAY 16GM 1 SPRAY NS ×2 (08:34→20:46)
[2025-03-05] MEDS: ESCITALOPRAM 10MG TABLET 10 MG PO (08:34)
[2025-03-05] MEDS: PANTOPRAZOLE 40MG VIAL 40 MG IV ×2 (08:34→20:46)
[2025-03-05] MEDS: diazePAM 5MG TABLET 5 MG PO ×2 (08:34→21:18)
[2025-03-05] MEDS: SPIRONOLACTONE 25MG TABLET 12.5 MG PO (08:35)
[2025-03-05] MEDS: LISINOPRIL 20MG TABLET 20 MG PO (08:35)
--- NOTE | 2025-03-05 12:32 | EXP.ACUTE.PN ---
Subjective *Date: 03/05/25 *Time: 14:30 Medical Exam Vital signs and Labs for Last 24 Hours: Vital Signs Temp Pulse Resp BP Pulse Ox O2 Del Method 03/05/25 10:05 Room Air 03/05/25 08:47 Room Air 03/05/25 08:00 Room Air 03/05/25 07:35 48 L 17 132/79 93 L Room Air 03/05/25 06:51 Room Air 03/05/25 04:57 Room Air 03/05/25 04:00 97.7 F 68 17 121/54 L 100 Room Air 03/05/25 02:59 Room Air 03/05/25 01:00 Room Air 03/05/25 00:00 98.1 F 53 L 18 153/77 H 98 Room Air 03/04/25 23:00 Room Air 03/04/25 21:00 Room Air 03/04/25 20:00 Room Air 03/04/25 19:53 97.6 F 56 L 18 109/58 L 95 Room Air 03/04/25 19:00 Room Air 03/04/25 17:18 Room Air 03/04/25 16:00 98.4 F 56 L 18 125/75 98 Room Air 03/04/25 15:10 Room Air 03/04/25 13:15 Room Air Intake and Output 03/04/25 03/05/25 03/05/25 23:59 07:59 15:59 Intake Total 1524 / 2449 933 / 933 Output Total 400 / 1600 1050 / 1050 0 / 1050 Balance 1124 / 849 -117 / -117 0 / -117 Intake: Intake, Oral Amount 540 / 540 Intake, Total IV Amount 984 / 1909 933 / 933 0.9 % Sodium Chloride 1000ML 1, 984 / 1909 933 / 933 000 ml @ 100 mls/hr IV .Q10H [facility] Rx#:[id number] Output: Output, Urine Amount 400 / 1600 1050 / 1050 0 / 1050 Other: Number of Unmeasured Voids 0 0 1 Weight 84.459 kg Patient Weight 03/05/25 23:59 Weight 84.459 kg Laboratory Results - last 24 hr 03/05/25 06:48: WBC 4.8, RBC 3.78 L, Hgb 10.7 L, Hct 34.0 L, MCV 89.9, MCH 28.3, MCHC 31.5 L, RDW 12.9, Plt Count 166, MPV 12.2 H, Neut % (Auto) 47.3, Lymph % (Auto) 34.7, Pender % (Auto) 8.8, Eos % (Auto) 7.7, Baso % (Auto) 1.3, Neut # (Auto) 2.3, Lymph # (Auto) 1.7, Pender # (Auto) 0.4, Eos # (Auto) 0.4, Baso # (Auto) 0.1, Sodium 139, Potassium 4.5, Chloride 113 H, Carbon Dioxide 22, Anion Gap 8.5, BUN 11 D, Creatinine 1.10 H, Estimated Creat Clear 64, Estimated GFR 49 L, Est GFR ( Amer) 60, Glucose 87, Calcium 7.9 L, Total Bilirubin 0.8, AST 71 H D, ALT 37, Alkaline Phosphatase 91, Total Protein 6.8, Albumin 3.9, Globulin 2.9, Albumin/Globulin Ratio 1.3 I & O for Labs for Last 24 Hours: Intake & Output 03/02/25 03/03/25 03/04/25 03/05/25 23:59 23:59 23:59 23:59 Intake Total 2449 / 2449 933 / 933 Output Total 550 / 1600 1050 / 1050 Balance 1899 / 849 -117 / -117 Weight 81.601 kg 82.327 kg 84.459 kg Constitutional: Present no acute distress, chronically ill appearing and cooperative Head: Present atraumatic Neck: Present normal inspection Respiratory: Present CTA bilaterally, able to speak in complete sentences and symmetric chest movement Cardiac: Present Reg Rate and Rhythm GI: Present soft, tenderness and normal bowel sounds; Absent distention Rectal (female): Present deferred (female): Present deferred Extremities: Present normal inspection and full ROM; Absent tenderness or edema Skin: Present intact and dry Neuro: Present alert, awake and oriented x 3 Assessment and Plan *Assessment and plan (1) Right upper quadrant abdominal pain: Status: Acute Category: Medical Code(s): R10.11 - Right upper quadrant pain (2) Epigastric pain: Status: Acute Category: Medical Code(s): R10.13 - Epigastric pain (3) Abnormal findings on imaging of biliary tract: Status: Acute Category: Medical Code(s): R93.2 - Abnormal findings on diagnostic imaging of liver and biliary tract (4) Common bile duct dilation: Status: Acute Category: Medical Code(s): K83.8 - Other specified diseases of biliary tract (5) Dysphagia: Status: Acute Category: Medical Code(s): R13.10 - Dysphagia, unspecified (6) Choledocholithiasis: Status: Acute Category: Medical Code(s): K80.50 - Calculus of bile duct without cholangitis or cholecystitis without obstruction (7) Anemia: Status: Acute Category: Medical Code(s): D64.9 - Anemia, unspecified (8) Anxiety: Status: Acute Category: Medical Code(s): F41.9 - Anxiety disorder, unspecified (9) Acute on chronic diastolic heart failure: Status: Acute Category: Medical Code(s): I50.33 - Acute on chronic diastolic (congestive) heart failure (10) Dyspnea: Status: Acute Category: Medical Code(s): R06.00 - Dyspnea, unspecified (11) Depression: Status: Acute Category: Medical Code(s): F32.A - Depression, unspecified Plan Ms. Gonzalez is a 69-year-old female who presented to the emergency department yesterday evening with complaints of worsening right upper quadrant pain. She states the pain has been intermittent for the last few months, but worse this week. Patient does have a history of cholecystectomy, Crohn's disease, bowel resection. Patient states that the pain is worse with eating and typically is followed with nausea and occasional vomiting. She does states she also has a lot of dry heaves. She denies diarrhea, constipation. Abdominal CT shows dilated common duct to 16 mm and possible noncalcified stone at the ampullary. #Right upper quadrant pain #Epigastric pain #Abnormal findings on imaging of biliary tract #Bile duct dilation ?Patient abdominal CT showed dilated common duct to 60 mm and possible cause listed in the ampullary. Patient is continuing to have intermittent right upper quadrant and epigastric pain. She is n.p.o. for ERCP today with Dr. Vizcarra. ?Protonix 40 mg twice daily ordered for epigastric indigestion. She states the medication seems to be helping. ? LFTs decreased from yesterday, AST 71 ALT 37. Total bilirubin 0.8. ?Abdominal ultrasound shows mild extrahepatic biliary ductal dilation. ?Will continue to monitor CMP and liver function in the a.m. #Dysphagia ? Patient does complain of some intermittent dysphagia, this is a chronic issue for her. She has had her esophagus dilated in the past. Discussed this with Dr. Vizcarra and will consider esophageal dilation during ERCP pending procedure outcome. #Anemia ?Patient does have chronic anemia, hemoglobin stable today at 10.7, hematocrit 34.0. ?Iron studies are unremarkable iron 128, TIBC 287, iron saturation 44.5, ferritin 12.4. ?Will continue to monitor CBC in the a.m. ?Patient does state also that she sees Dr. Bates for abnormal vaginal bleeding, patient does have history of hysterectomy. Will ensure patient has follow-up appointment outpatient for pelvic exam. #Hypertension #Acute on chronic diastolic heart failure ? Continue lisinopril 20 mg, spironolactone 12.5 mg, Lasix 40 mg daily. Hold aspirin 81 mg for procedure tomorrow. #Dyspnea ? DuoNebs every 6 H as needed for shortness of air. ? Patient stable on room air. #Depression #Anxiety ? Patient takes diazepam 5 mg 3 times daily as needed for anxiety, ordered in the inpatient setting as needed. ? Patient takes Lexapro 10 mg daily, restart. DNR/DNI PT/OT consulted GI consulted N.p.o. Ambulate as tolerated
--- NOTE | 2025-03-05 14:24 | P.PNANES_ITS ---
[facility] Disclaimer: The information contained in this section may have been updated after the patient was seen, as this information can be updated by other users. Medical History (Updated 03/04/25 @ 08:09 by Rasheed Vizcarra II, MD) Chronic abdominal pain Anxiety related tremor High globulin level Shakiness SOB (shortness of breath) Palpitations Bradycardia Screening for colon cancer Breast cancer screening by mammogram Crohn's disease Community acquired pneumonia Chronic kidney disease (HFpEF) heart failure with preserved ejection fraction Abnormal chest CT Schatzki's ring Sinus bradycardia Insomnia Depression Anxiety Osteoporosis Allergies History of anemia History of constipation Sphincter of Oddi dysfunction HTN (hypertension) Bilateral lower extremity edema Surgical History (Updated 03/04/25 @ 08:09 by Rasheed Vizcarra II, MD) Lipoma of back Status post cholecystectomy H/O oral surgery History of appendectomy H/O total hysterectomy History of esophagogastroduodenoscopy (EGD) History of arthroscopy of right knee Status post knee surgery History of intestinal surgery Family History Other Cancer Heart attack Social History Smoking Status: Never smoker second hand exposure: No alcohol intake: never substance use type: denies use current occupational status: disabled Travel in the last 8 weeks?: None household members: none housing: apartment number of children: 2 current occupational exposures/hazards: No caffeine: Yes Have you lived/traveled outside [place] in past 30 days?: No Contact w/someone who lives/traveled outside [place] past 30 days?: No Exposure to someone with infectious disease in past 14 days?: No Do you have a fever (greater than 100.4 F or 38 C)?: No Have you tested positive for COVID-19?: No Exposed to someone with COVID-19 in past 14 days?: No Do you have a sore throat?: No Do you have a cough?: No Do you have any weakness?: Yes Do you have any diarrhea?: No Are you experiencing any unusual bleeding?: No Do you have any muscle aches/pain?: No Do you have any abdominal pain?: No Are you experiencing loss of taste or smell?: No [facility] Anesthesia Checklist Patient Identification Patient Identification: Arm Band Structural Data Admitted From: Home Planned Operative Procedure/s: ERCP Consent for Planned Operative Procedure(s) Verified: Yes Verified Documents: Surgical Consent and History and Physical NPO Status Verified Time NPO: 00:00 Additional verifications Anesthesia Reactions: No Hx Blood Transfusions: Yes Blood Transfusion Reaction: No Airway Assessment Mallampati Score:: Class II C-Spine Mobility Assessed: Yes TMJ Mobility Assessed: Yes Dentition: Edentulous Neurological Assessment Level of Consciousness: Awake, Alert and Appropriate Anesthesia Plan Anesthesia Risk discussed: Yes Anesthesia Plan: Verified ASA Class: III Anesthesia Type: General
--- NOTE | 2025-03-05 14:35 | PC.NURSE ---
Aox 4. Complained of pain several times, treated per mar. Abdomen soft and tender to touch. Fluids running through left chest port. Uses purewick and bedside commode. NPO, Call light in reach.
--- NOTE | 2025-03-05 14:40 | HMH.PROCNOTE ---
[facility] Procedure Note Date: 03/05/25 Time: 15:24 Procedure Note:: ERCP procedure Report: Endoscopic retrograde cholangiopancreatography with biliary sphincterotomy and balloon extraction Endoscopist: Rasheed Vizcarra II, MD Referring Physician: Colin Smith MD Date of Procedure: March 05, 2025 Equipment: Olympus 180 side viewing endoscope duodenoscope Sedation: MAC sedation Indication: Mrs. Gonzalez is a 69-year-old female who is here for diagnostic/therapeutic ERCP after hospital admission. She has had burning epigastric abdominal pain that radiates around to the right upper quadrant and flank and into the back. 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 She also had cholecystectomy more than 20 years ago. She had 2 ERCPs which were both more than 15-20 years ago by me. The patient came to the ED with more excruciating pain. The patient reports having epigastric abdominal pain that radiates into the right upper quadrant and then around the flank and into the back. She has had a lot of belching, bloating, nausea and early satiety. 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 She does have a remote history of Crohn's disease and has had bowel resections in the past. The patient has had some chronic anemia and her hemoglobin and hematocrit today were 9.8 and 30.4 which is slightly declined with normocytic indices. The patient did have a CAT scan of the abdomen and pelvis yesterday that showed a dilated common bile duct to 16 mm (increased in size from 12 mm) with the appearance of a nonobstructing stone at the ampulla. Interestingly, her biliary/liver chemistries were relatively normal with total bilirubin 0.7, alkaline phosphatase 78, AST 106 and ALT 42. Her lipase was 88. The patient has not had a colonoscopy in more than 10 years ago. Her CRP in January 2025 was 2.7. The patient has not had any recent iron studies. Her tumor markers (CA 19-9 13, CEA 2.3 and AFP 2.1) were normal in October 2023. The patient did have an EGD with Dr. Kavon Jernigan in December 2023 and had a Schatzki's ring dilated to 20 mm. She has had some recurrent dysphagia. Procedure: Prior to the procedure, a history and physical exam was performed, and patient's medications and allergies were reviewed. The risks (including pancreatitis), benefits and alternatives of the sedation and procedure were discussed with the patient. All questions were answered and informed consent was obtained. The patient was brought to the fluoroscopic radiology room. Patient identification and proposed procedure were verified by the physician and the nurse. The patient was placed in a swimmer's position between left lateral decubitus and prone position and the scope was passed under direct vision. Throughout the procedure, the patient's blood pressure, pulse, and oxygen saturations were monitored continuously. The ERCP was accomplished without difficulty. The patient tolerated the procedure well. Findings: The duodenoscope was passed directly into the upper esophagus and advanced to the second portion of the duodenum. There was a small sliding hiatal hernia. There was mild reactive gastropathy. The fluoroscopic C arm was then placed into position prior to cannulation with the duodenoscope was centered in a L-shaped position fluoroscopically in the second portion of duodenum. The entire endoscopic exam was done in conjunction with fluoroscopy. The cannula was then inserted through the duodenoscope channel and preloaded with low osmolar contrast. The ampulla was well-visualized and there was no extravasation of bile from the ampulla. The common bile duct was selectively cannulated with the cannula and guidewire. A cholangiogram was performed and there was a dilated CBD to 15 mm. There was normal filling of the intrahepatic biliary system. There was a normal cystic duct stump. There was no filling defect throughout the biliary system. There was delayed extravasation of bile and contrast indicative of some mild ampullary/distal sphincter stenosis. This was most consistent with prior post sphincterotomy stenosis. A 10 mm biliary sphincterotomy was performed with excellent extravasation of bile and contrast with decompression. A 12 mm sweeping balloon was placed above the hilum and swept to the biliary system with complete decompression of the biliary tree. There were no stones or debris from this balloon sweep. The pancreatic duct was not cannulated intentionally. Impression: 1. Mild ampullary stenosis (post sphincterotomy stenosis) status post biliary sphincterotomy and balloon sweep with decompression Plan: I do feel that the patient's right upper quadrant abdominal pain may be from the sphincter of Oddi dysfunction but also the ampullary stenosis from prior biliary sphincterotomy. I did open up the sphincter via biliary sphincterotomy with excellent decompression of the biliary system. The patient's iron studies are normal. Her CRP was elevated at 6.6. I would recommend that we do outpatient colonoscopy for assessment of disease activity of her Crohn's disease. The patient's fecal calprotectin was normal at 68. She is Hemoccult negative. Her fecal elastase was 344.
--- NOTE | 2025-03-05 15:31 | FL_ITS ---
FINAL REPORT CLINICAL HISTORY: ERCP in OR 0.7 min 29.06 mGy FINDINGS: Single fluoroscopic image was obtained for ERCP. 0.7 minutes of fluoroscopy time was reported. 29.06 mGy. IMPRESSION: Please see endoscopy report. Reviewed, Interpreted and Dictated by Santo Gerardo MD Transcribed by Monae Francis Authenticated and [facility]
--- NOTE | 2025-03-05 15:37 | P.PNANES_ITS ---
[facility] Anesthesia Record Part I Anesthesia Record I Intake, IV Amount: 400 Hydration: Adequate Estimated blood loss (mL): 0 Urine output (mL): 0 Blood Products used (#): none Blood Pressure: 157/74 SaO2: 94 Pulse Rate: 57 Airway Patency: Patent Respiratory Rate: 16 Temperature: 97.6 F Patient is:: Drowsy and Stable Stable to PACU at:: 15:30
--- NOTE | 2025-03-05 16:15 | PC.NURSE ---
Pt. back to the floor from procedure.
--- NOTE | 2025-03-05 16:54 | EXP.ANES.II ---
[facility] Anesthesia Record Part II Anesthesia Record Part II Discharge Time: 15:51 Destination: Medical Surgical Department PACU nurse assessment reviewed?: Yes Patient Condition:: Good Anesthesia Complications:: None Swallowing reflex intact?: Yes Airway Patency: Patent Cyanosis?: No Blood Pressure: 122/72 SaO2: 99 Respiratory Rate: 17 Pulse Rate: 62 Temperature: 97.8 F Mental Status: Alert & Oriented Pain level:: 0 Nausea and/or vomitting:: None Intake, IV Amount: 0 Hydration: Adequate
[2025-03-05] MEDS: SODIUM CHLORIDE 0.9% 10ML VIAL 10 ML IV (20:46)
[2025-03-05] MEDS: POLYETHYLENE GLYCOL 3350 17 GM PACKET PO (23:38)
[2025-03-06] VITALS: BP 125/71; PULSE 69; RESP 17; TEMP 36.5; O2SAT 97
[2025-03-06] MEDS: 0.9 % SODIUM CHLORIDE 1000ML 1,000 ML 100 ML IV (02:23)
[2025-03-06] MEDS: HYDROMORPHONE 2MG/ML SYRINGE 0.5 MG IV ×2 (02:28→09:03)
[2025-03-06] MEDS: LORazepam 2MG/ML VIAL 0.5 MG IV (02:28)
[2025-03-06 04:00] VITALS: BP 129/77; PULSE 60; RESP 16; TEMP 36.7; O2SAT 96; BMI 30.8
[2025-03-06] MEDS: KETOROLAC 30MG/ML VIAL 15 MG IV ×2 (05:23→10:58)
[2025-03-06] MEDS: diazePAM 5MG TABLET 5 MG PO ×2 (05:45→10:24)
[2025-03-06 06:06] LABS: Hematocrit 33.0 % (37.0-47.0); Hemoglobin 10.5 g/dL (12.2-16.2); Immature Granulocytes % 0.4 %; Mean Corpuscular HGB Conc 31.8 g/dL (31.8-35.4); Mean Corpuscular Hemoglobin 28.2 pg (27.0-31.2); Mean Corpuscular Volume 88.7 fl (81-99); Nucleated Red Blood Cells % 0 %; Platelet Count 229 K/mm3 (142-424); Red Blood Count 3.72 M/mm3 (4.20-5.40); Red Cell Distribution Width-SD 41.1 fL; White Blood Count 5.4 K/mm3 (4.8-10.8)
[2025-03-06 06:12] LABS: Alanine Aminotransferase 38 U/L (12-78); Albumin Level 3.7 g/dl (3.5-5.0); Albumin/Globulin Ratio 1.5 (1.1-1.8); Alkaline Phosphatase 92 U/L (38-126); Anion Gap 9.3 mEq/L (5-15); Aspartate Amino Transferase 76 U/L (14-36); Bilirubin,Total 0.7 mg/dl (0.2-1.3); Blood Urea Nitrogen 13 mg/dl (7-17); Calcium 7.9 mg/dl (8.4-10.2); Carbon Dioxide 23 mmol/L (22.0-30.0); Chloride 110 mmol/L (98-107); Creatinine Clearance Estimated 62 mL/min (50-200); Creatinine,Serum 1.10 mg/dl (0.52-1.04); Estimated Glomerular Filt Rate 49 ml/min (>60); GFR (African American) 60 ML/MIN (>60); Globulin 2.5 g/dL (1.3-3.2); Glucose 115 mg/dl (74-100); Magnesium 1.8 mg/dl (1.6-2.3); Potassium 4.3 mmoL/L (3.5-5.1); Sodium 138 mmol/L (136-145); Total Protein,Serum 6.2 g/dl (6.3-8.2)
[2025-03-06 08:00] VITALS: BP 100/65; PULSE 70; RESP 16; TEMP 36.9; O2SAT 97
[2025-03-06] MEDS: FLUTICASONE PROP 50MCG NASAL SPRAY 16GM 1 SPRAY NS (09:00)
[2025-03-06] MEDS: LISINOPRIL 20MG TABLET 20 MG PO (09:01)
[2025-03-06] MEDS: MAGNESIUM CITRATE 296ML BOTTLE 296 ML PO (09:01)
[2025-03-06] MEDS: ESCITALOPRAM 10MG TABLET 10 MG PO (09:01)
[2025-03-06] MEDS: FUROSEMIDE 40 MG TABLET PO (09:01)
[2025-03-06] MEDS: SPIRONOLACTONE 25MG TABLET 12.5 MG PO (09:02)
[2025-03-06] MEDS: PANTOPRAZOLE 40MG TABLET 40 MG PO (09:02)
[2025-03-06] MEDS: POLYETHYLENE GLYCOL 3350 17 GM PACKET PO (09:02)
--- NOTE | 2025-03-06 11:08 | P.DS_ITS ---
<Statement entered by Bayron Holloway MD - 03/15/25 17:31> Agree with PLANER HAND note as documented General Admission date:: 03/03/25 Discharge date: 03/06/25 HPI HPI HPI: Mrs. Gonzalez is a 69-year-old female with burning epigastric abdominal pain that radiates around to the right upper quadrant and flank and into the back. 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 She also had cholecystectomy more than 20 years ago. She had 2 ERCPs which were both more than 20 years ago by me. The patient came to the ED with more excruciating pain. The patient reports having epigastric abdominal pain that radiates into the right upper quadrant and then around the flank and into the back. She has had a lot of belching, bloating, nausea and early satiety. She has chronic alte rnating mixed IBS with diarrhea alternating with constipation. She does have a remote history of Crohn's disease and has had bowel resections in the past. The patient has had some chronic anemia and her hemoglobin and hematocrit today were 9.8 and 30.4 which is slightly declined with normocytic indices. The patient did have a CAT scan of the abdomen and pelvis yesterday that showed a dilated common bile duct to 16 mm (increased in size from 12 mm) with the appearance of a nonobstructing stone at the ampulla. Interestingly, her biliary/liver chemistries were relatively normal with total bilirubin 0.7, alkaline phosphatase 78, AST 106 and ALT 42. Her lipase was 88. The patient has not had a colonoscopy in more than 10 years ago. Her CRP in January 2025 was 2.7. The patient has not had any recent iron studies. Her tumor markers (CA 19-9 13, CEA 2.3 and AFP 2.1) were normal in October 2023. The patient did have an EGD with Dr. Kavon Jernigan in December 2023 and had a Schatzki's ring dilated to 20 mm. She has had some recurrent dysphagia. Hospital Course Hospital Course Hospital Course: Ms. Gonzalez is a 69-year-old female who presented to the emergency department with complaints of worsening right upper quadrant pain. She states the pain has been intermittent for the last few months, but worse this week. Patient does have a history of cholecystectomy, Crohn's disease, bowel resection. Patient states that the pain is worse with eating and typically is followed with nausea and occasional vomiting. She does states she also has a lot of dry heaves. She denies diarrhea, constipation. Abdominal CT shows dilated common duct to 16 mm and possible noncalcified stone at the ampullary. #Right upper quadrant pain #Epigastric pain #Abnormal findings on imaging of biliary tract #Bile duct dilation ?Patient abdominal CT showed dilated common duct to 60 mm and possible cause listed in the ampullary. Patient is continuing to have intermittent right upper quadrant and epigastric pain. ?Patient had ERCP yesterday with Dr. Vizcarra, per his note a 10 mm biliary sphincterotomy was performed with excellent extravasation of bile and contrast with decompression, a 12 mm sweeping balloon was placed above the hilum and swept to the biliary system with complete decompression of the biliary tree. There were no stones or debris from the balloon sweep, the pancreatic duct was not cannulated intentionally. ?Discharge patient home on Protonix 40 mg twice daily for epigastric discomfort and indigestion. ? LFTs during admission remained stable, day of discharge AST 76, ALT 38. Total bilirubin 0.7. ?Abdominal ultrasound shows mild extrahepatic biliary ductal dilation. ?Patient denies severe right upper quadrant/epigastric pain. She does state that she is having intermittent pain at times. Tolerating p.o. diet without issue. Will discharge home with 3 days of Cap[place] every 6 hours as needed for severe pain. Patient to follow-up with Dr. Vizcarra in the outpatient setting for possible outpatient colonoscopy to reevaluate Crohn's. #Dysphagia ? Patient does complain of some intermittent dysphagia, this is a chronic issue for her. She has had her esophagus dilated in the past. Discussed this with Dr. Vizcarra, he feels that the patient could have sphincter of Oddi dysfunction. No notable strictures noted in procedure note. #Anemia ?Patient does have chronic anemia, hemoglobin stable day of discharge, hemoglobin 10.5, hematocrit 33.0. ?Iron studies are unremarkable iron 128, TIBC 287, iron saturation 44.5, ferritin 12.4. ?Patient does state also that she sees Dr. Bates for abnormal vaginal bleeding, patient does have history of hysterectomy. Patient has follow-up appointment with Dr. Bates, [employer]. #Hypertension #Acute on chronic diastolic heart failure ? Continue lisinopril 20 mg, spironolactone 12.5 mg, Lasix 40 mg daily, aspirin 81 mg at discharge. #Dyspnea ?Patient denies any shortness of breath. ? Patient stable on room air. #Depression #Anxiety ? Patient takes diazepam 5 mg 3 times daily as needed for anxiety, continue at discharge. ? Patient takes Lexapro 10 mg daily, continue at discharge. Total time spent on discharge 36 minutes in counseling, documentation, chart review, and direct care with patient. Exam Data for Last 24 hours Vital signs and Labs for Last 24 Hours: Temp Pulse Resp BP Pulse Ox O2 Del Method O2 Flow Rate 98.4 F 70 16 100/65 L 97 Room Air 2 03/06/25 08:00 03/06/25 08:00 03/06/25 08:00 03/06/25 08:00 03/06/25 08:00 03/06/25 08:50 03/05/25 18:05 Laboratory Results - last 24 hr 03/06/25 05:34: WBC 5.4, RBC 3.72 L, Hgb 10.5 L, Hct 33.0 L, MCV 88.7, MCH 28.2, MCHC 31.8, RDW 12.6, Plt Count 229 D, MPV 11.7 H, Neut % (Auto) 79.6, Lymph % (Auto) 14.6, [place] % (Auto) 4.6, Eos % (Auto) 0.2, Baso % (Auto) 0.6, Neut # (Auto) 4.3, Lymph # (Auto) 0.8, [place] # (Auto) 0.3, Eos # (Auto) 0.0, Baso # (Auto) 0.0, Sodium 138, Potassium 4.3, Chloride 110 H, Carbon Dioxide 23, Anion Gap 9.3, BUN 13, Creatinine 1.10 H, Estimated Creat Clear 62, Estimated GFR 49 L , Est GFR ( Amer) 60, Glucose 115 H D, Calcium 7.9 L, Magnesium 1.8 D, Total Bilirubin 0.7, AST 76 H, ALT 38, Alkaline Phosphatase 92, Total Protein 6.2 L, Albumin 3.7, Globulin 2.5, Albumin/Globulin Ratio 1.5 Temp Pulse Resp BP Pulse Ox O2 Del Method O2 Flow Rate 98.4 F 44 L 18 142/80 H 96 Room Air 2 09/05/23 04:00 09/05/23 04:10 09/05/23 04:00 09/05/23 04:00 09/05/23 04:00 09/05/23 06:58 09/04/23 12:21 Laboratory Results - last 24 hr 09/04/23 06:08: Sodium 139, Potassium 4.1, Chloride 112 H, Carbon Dioxide 21 L, Anion Gap 10.1, BUN 6 L D, Creatinine 1.00, Estimated Creat Clear 74, Estimated GFR 55 L, Est GFR ( Amer) 67, Glucose 79, Calcium 7.5 L, Magnesium 1.8 09/05/23 05:43: WBC 5.8, RBC 3.23 L, Hgb 8.9 L, Hct 28.8 L, MCV 89.2, MCH 27.5, MCHC 30.9 L, RDW 15.8, Plt Count 219, MPV 10.5 H, Neut % (Auto) 59.6, Lymph % (Auto) 25.3, [place] % (Auto) 5.9, Eos % (Auto) 8.9, Baso % (Auto) 0.3, Neut # (Auto) 3.5, Lymph # (Auto) 1.5, [place] # (Auto) 0.3, Eos # (Auto) 0.5 H, Baso # (Auto) 0.0, Sodium 142, Potassium 4.1, Chloride 111 H, Carbon Dioxide 27, Anion Gap 8.1, BUN 8 D, Creatinine 1.00, Estimated Creat Clear 74, Estimated GFR 55 L , Est GFR ( Amer) 67, Glucose 100 D, Calcium 7.3 L, Magnesium 1.6 D I & O for Last 24 hours: Intake & Output 03/03/25 03/04/25 03/05/25 03/06/25 23:59 23:59 23:59 23:59 Intake Total 2449 / 2449 2033 / 2273 2761 / 2761 Output Total 550 / 1600 2250 / 2250 550 / 550 Balance 1899 / 849 - 221 / 2211 Weight 81.601 kg 82.327 kg 84.459 kg 81.828 kg Intake & Output 09/02/23 09/03/23 09/04/23 09/05/23 23:59 23:59 23:59 23:59 Intake Total 2382 / 2382 1639 / 1639 Output Total 0 / 0 0 / 0 100 / 100 0 / 0 Balance 0 / 0 2381 / 2381 1539 / 1539 0 / 0 Weight 76.657 kg 82.372 kg 85.502 kg 82.1 kg Constitutional Constitutional: no acute distress, obese and chronically ill appearing *Routine HEENT Exam Head: Present normocephalic Eye: Present EOMI and PERRL ENT: Present mucous membranes moist Comments: edentulous *Routine Neck Exam Neck: Present supple; Absent lymphadenopathy *Routine Respiratory Exam Respiratory: Present CTA bilaterally; Absent rhonchi, wheezes or crackles *Routine Cardiovascular Exam Cardiovascular: Present RRR *Routine Abdominal Exam Abdominal: Present soft and normoactive bowel sounds; Absent tenderness *Routine Extremities Exam Extremities: Absent cyanosis, clubbing or edema *Routine Skin Exam Skin: Present warm; Absent rash *Routine Neurological Exam Neurological: Present alert, oriented X3 and moving all extremities; Absent altered mental status Results Data Completed and Pending Labs on day of discharge: Labs from last 24 hours 03/06/25 05:34 WBC 5.4 RBC 3.72 L Hgb 10.5 L Hct 33.0 L MCV 88.7 MCH 28.2 MCHC 31.8 RDW 12.6 Plt Count 229 D MPV 11.7 H Neut % (Auto) 79.6 Lymph % (Auto) 14.6 [place] % (Auto) 4.6 Eos % (Auto) 0.2 Baso % (Auto) 0.6 Neut # (Auto) 4.3 Lymph # (Auto) 0.8 [place] # (Auto) 0.3 Eos # (Auto) 0.0 Baso # (Auto) 0.0 Sodium 138 Potassium 4.3 Chloride 110 H Carbon Dioxide 23 Anion Gap 9.3 BUN 13 Creatinine 1.10 H Estimated Creat Clear 62 Estimated GFR 49 L Est GFR ( Amer) 60 Glucose 115 H D Calcium 7.9 L Magnesium 1.8 D Total Bilirubin 0.7 AST 76 H ALT 38 Alkaline Phosphatase 92 Total Protein 6.2 L Albumin 3.7 Globulin 2.5 Albumin/Globulin Ratio 1.5 DS: Diagnosis Discharge Diagnosis (1) Right upper quadrant abdominal pain: Status: Acute Code(s): R10.11 - Right upper quadrant pain (2) Epigastric pain: Status: Acute Code(s): R10.13 - Epigastric pain (3) Abnormal findings on imaging of biliary tract: Status: Acute Code(s): R93.2 - Abnormal findings on diagnostic imaging of liver and biliary tract (4) Common bile duct dilation: Status: Acute Code(s): K83.8 - Other specified diseases of biliary tract (5) Dysphagia: Status: Acute Code(s): R13.10 - Dysphagia, unspecified (6) Choledocholithiasis: Status: Acute Code(s): K80.50 - Calculus of bile duct without cholangitis or cholecystitis without obstruction (7) Anemia: Status: Acute Code(s): D64.9 - Anemia, unspecified (8) Anxiety: Status: Acute Code(s): F41.9 - Anxiety disorder, unspecified (9) Acute on chronic diastolic heart failure: Status: Acute Code(s): I50.33 - Acute on chronic diastolic (congestive) heart failure (10) Dyspnea: Status: Acute Code(s): R06.00 - Dyspnea, unspecified (11) Depression: Status: Acute Code(s): F32.A - Depression, unspecified Meds Home Medications and Allergies Home Medications ?Medication ?Instructions ?Recorded ?Confirmed ?Type aspirin 81 mg tablet,delayed 81 mg PO DAILY 09/27/24 0 03/03/25 History release (Adult Aspirin Regimen) albuterol sulfate 90 mcg/actuation 2 puff inhalation Q 4-6H PRN 12/03/24 03/03/25 Rx aerosol inhaler shortness of breath or wheez ing #18 grams spironolactone 25 mg tablet 12.5 mg (1/2 x 25 mg) PO D AILY #90 12/24/24 03/03/25 Rx (Aldactone) tabs fluticasone propionate 50 1 spray intranasal BID #16 g anatoliy 01/10/25 03/03/25 Rx mcg/actuation nasal spray,suspension (Allergy Relief (fluticasone)) alendronate 10 mg tablet 10 mg PO DAILY #30 tabs 02/1103/03/25 Rx diazepam 5 mg tablet 5 mg PO TID PRN anxiety #90 tabs 02/21/25 03/03/25 Rx escitalopram oxalate 10 mg tablet 10 mg PO DAILY 03/0303/03/25 History (Lexapro) furosemide 40 mg tablet 40 mg PO DAILY 30 days #30 t abs 03/03/25 03/03/25 Rx lisinopril 20 mg tablet 20 mg PO DAILY 03/03/2502/12 History oxybutynin chloride 5 mg tablet 5 mg PO DAILY 03/04/25 03/04/25 History hydrocodone 5 mg-acetaminophen 325 1 tab PO Q6H PRN pa in #13 tabs 03/06/25 Rx mg tablet pantoprazole 40 mg tablet,delayed 40 mg PO BID 30 days #60 tabs 03/06/25 Rx release New Prescriptions to Start Prescriptions: hydrocodone-acetaminophen Rosaura Cordero pantoprazole Rosaura Cordero Allergies Allergy/AdvReac Type Severity Reaction Status Date / Time cephalexin (From Keflex) Allergy Severe Difficulty Verified 03/03/25 15:35 Breathing prochlorperazine Allergy Severe Swelling Verified 03/03/25 15:35 (PROCHLORPERAZINE) of Lip/Tongue/Throat codeine (CODEINE) Allergy Unknown VOMITING / Verified 03/03/25 15:35 NAUSEA prednisone (PREDNISONE) Allergy Unknown BP ISSUES Verified 03/03/25 15:35 promethazine (From PHENERGAN) Allergy Unknown Unknown Verified 03/03/25 15:35 allergy reaction metoclopramide (From Reglan) Allergy Nausea Verified 03/03/25 15:35 hydroxyzine (From Vistaril) AdvReac Hives Verified 03/03/25 15:35 Discharge Plan Disposition Patient Disposition: Home, Self-Care Condition: Fair Discharge Order Discharge Orders: Discharge Order (Routine); Ordered 03/06/25 Ordered By: Rosaura Cordero Follow up Plan Follow up with: Suresh Love MD [Staff Physician, [employer]] - 03/10/25 3:15 pm Rasheed Vizcarra II, MD [Staff Physician, Gastroenterology] - 04/01/25 11:30 am Colin Smith MD [Primary Care Provider, Family Practice] - Enter time for follow up Prescriptions/Medication Reconciliation: New pantoprazole 40 mg Tablet,Delayed Release (Dr/Ec) 40 mg PO BID 30 Days Qty: 60 0RF hydrocodone-acetaminophen 5-325 mg tablet 1 tab PO Q6H PRN (Reason: pain) Qty: 13 0RF Continued spironolactone [Aldactone] 25 mg tablet 12.5 mg PO DAILY Qty: 90 3RF aspirin [Adult Aspirin Regimen] 81 mg tablet,delayed release (DR/EC) 81 mg PO DAILY albuterol sulfate 90 mcg/actuation HFA aerosol inhaler 2 puff inhalation Q4-6H PRN (Reason: shortness of breath or wheezing) Qty: 18 2RF fluticasone propionate [Allergy Relief (fluticasone)] 50 mcg/actuation spray,suspension 1 spray intranasal BID Qty: 16 2RF Rx Instructions: administer into each nostril 2x/day furosemide 40 mg tablet 40 mg PO DAILY 30 Days Qty: 30 2RF diazepam 5 mg tablet 5 mg PO TID PRN (Reason: anxiety) Qty: 90 0RF Rx Instructions: ok to fill on February 24, 2025 alendronate 10 mg tablet 10 mg PO DAILY Qty: 30 2RF escitalopram oxalate [Lexapro] 10 mg Tablet 10 mg PO DAILY lisinopril 20 mg tablet 20 mg PO DAILY oxybutynin chloride 5 mg tablet 5 mg PO DAILY Problem Reconciliation Problems Reviewed?: Yes Patient Discharge Instructions ACTIVITY: Continue current activity DIET: continue same diet Patient Instructions: DI for Endoscopic Retrograde Cholangiopancreatography, DI for Chest Pain, DI for Biliary Colic, Stop Light Heart Failure Print Language: Occitan Providers Primary Care Provider: Colin Smith Admit Provider: Librado Hernandes Attending Provider: Librado Hernandes
[2025-03-06 11:58] VITALS: BP 132/52; PULSE 57; RESP 16; TEMP 36.4; O2SAT 96
--- NOTE | 2025-03-06 13:09 | P.PN_ITS ---
Subjective *Date: 03/06/25 *Time: 13:10 Interval history: Patient sitting up on the side of the bed alert and oriented, complains of some suprapubic discomfort but no upper abdominal discomfort. LFTs are relatively unchanged. Dysphagia is controlled at this time. She is ready to go home Exam Data for Last 24 hours Vital signs and Labs for Last 24 Hours: Temp Pulse Resp BP Pulse Ox O2 Del Method O2 Flow Rate 97.5 F L 57 L 16 132/52 L 96 Room Air 2 03/06/25 11:58 03/06/25 11:58 03/06/25 11:58 03/06/25 11:58 03/06/25 11:58 03/06/25 11:58 03/05/25 18:05 Laboratory Results - last 24 hr 03/06/25 05:34: WBC 5.4, RBC 3.72 L, Hgb 10.5 L, Hct 33.0 L, MCV 88.7, MCH 28.2, MCHC 31.8, RDW 12.6, Plt Count 229 D, MPV 11.7 H, Neut % (Auto) 79.6, Lymph % (Auto) 14.6, [place] % (Auto) 4.6, Eos % (Auto) 0.2, Baso % (Auto) 0.6, Neut # (Auto) 4.3, Lymph # (Auto) 0.8, [place] # (Auto) 0.3, Eos # (Auto) 0.0, Baso # (Auto) 0.0, Sodium 138, Potassium 4.3, Chloride 110 H, Carbon Dioxide 23, Anion Gap 9.3, BUN 13, Creatinine 1.10 H, Estimated Creat Clear 62, Estimated GFR 49 L , Est GFR ( Amer) 60, Glucose 115 H D, Calcium 7.9 L, Magnesium 1.8 D, Total Bilirubin 0.7, AST 76 H, ALT 38, Alkaline Phosphatase 92, Total Protein 6.2 L, Albumin 3.7, Globulin 2.5, Albumin/Globulin Ratio 1.5 I & O for Last 24 hours: Intake & Output 03/04/25 03/05/25 03/06/25 03/07/25 11:59 11:59 11:59 11:59 Intake Total 925 2457 3861 Output Total 100 1500 1750 Balance 541 404 6197 Weight 82.327 kg 84.459 kg 81.828 kg Constitutional Constitutional: no acute distress *Routine HEENT Exam Head: Present normocephalic and atraumatic ENT: Present mucous membranes moist *Routine Respiratory Exam Respiratory: Present CTA bilaterally *Routine Cardiovascular Exam Cardiovascular: Present RRR *Routine Abdominal Exam Abdominal: Present soft, normoactive bowel sounds, tenderness (Some mild TTP suprapubic) and distended (Mild to moderate distention with gas) *Routine Extremities Exam Extremities: Present full ROM *Routine Neurological Exam Neurological: Present alert and oriented X3 Assessment and Plan *Assessment and plan (1) History of sphincterotomy of sphincter of Oddi: Status: Acute Category: Surgical Code(s): Z98.890 - Other specified postprocedural states (2) Choledocholithiasis: Status: Acute Category: Medical Code(s): K80.50 - Calculus of bile duct without cholangitis or cholecystitis without obstruction (3) Dysphagia: Status: Acute Category: Medical Code(s): R13.10 - Dysphagia, unspecified (4) History of Crohn's disease: Status: Acute Category: Medical Code(s): Z87.19 - Personal history of other diseases of the digestive system (5) Common bile duct dilation: Status: Acute Category: Medical Code(s): K83.8 - Other specified diseases of biliary tract (6) Epigastric pain: Status: Acute Category: Medical Code(s): R10.13 - Epigastric pain (7) Right upper quadrant abdominal pain: Status: Acute Category: Medical Code(s): R10.11 - Right upper quadrant pain Plan 1. History of sphincterotomy of sphincter of Oddi/common bile duct dilation/epigastric/right upper quadrant pain Status post ERCP yesterday with Dr. Vizcarra. Mild ampullary stenosis status post sphincterotomy no stones or sludge seen. Patient denies any real epigastric or right upper quadrant pain currently. Able to eat and drink appropriately. Normal bilirubin and alk phos on lab work. Will see her at follow-up in a couple of weeks 2. Dysphagia History of Schatzki's ring last EGD with dilation in December 2023. Patient reports dysphagia is mild and few and far between. We can discuss further at outpatient follow 3. History of Crohn's disease Patient reports she has been in remission for over 10 years. Last saw GI over 10 years ago and last colonoscopy over 10 years ago. Has some intermittent lower abdominal pain. Reports occasional diarrhea although not persistent. No blood in her stool. She did have a mild elevation of CRP at 6.6 on lab work but last fecal calprotectin was within normal limits. She will likely need an outpatient colonoscopy and we can discuss that at her follow-up.
--- NOTE | 2025-03-10 12:01 | SW/DCPLANNER ---
Spoke with patient on the phone. Patient stated that she is in alot of pain. Patient stated that she was able ot get her new medicine picked up. Patient stated that she is aware of her upcoming appointments. Patient stated that she has no concerns or questions at this time. Cj Steven
== END 2025-03-06 13:10 | disposition home or self-care (01) | DRG 445 ==
LOC: ER 21:33 → 2ND 03-04 01:03
PROVIDERS: Internal Medicine Adolescent Medicine; Internal Medicine Gastroenterology; Nurse Practitioner; Nurse Practitioner Family; Admitting Provider Student in an Organized Health Care Education/Training Program; Emergency Provider Emergency Medicine; PCP Family Medicine; Visit Provider Student in an Organized Health Care Education/Training Program
PROC: 0F798ZZ Dilation of Common Bile Duct, Via Natural or Artificial Opening Endoscopic (ICD-10-PCS; CPT 43260; principal; 2025-03-05 15:30)
DX: K83.8 Other specified diseases of biliary tract (principal); I13.0 Hypertensive heart and chronic kidney disease with heart failure and stage 1 through stage 4 chronic kidney disease, or unspecified chronic kidney disease; K50.90 Crohn's disease, unspecified, without complications; I50.32 Chronic diastolic (congestive) heart failure; K83.1 Obstruction of bile duct; N18.9 Chronic kidney disease, unspecified; K83.4 Spasm of sphincter of Oddi; F41.0 Panic disorder [episodic paroxysmal anxiety]; F41.1 Generalized anxiety disorder; G89.29 Other chronic pain; M54.40 Lumbago with sciatica, unspecified side; D64.9 Anemia, unspecified; K30 Functional dyspepsia; F32.A Depression, unspecified; R13.10 Dysphagia, unspecified; Z98.890 Other specified postprocedural states; Z88.5 Allergy status to narcotic agent; Z88.8 Allergy status to other drugs, medicaments and biological substances; Z88.1 Allergy status to other antibiotic agents; Z79.82 Long term (current) use of aspirin; Z79.899 Other long term (current) drug therapy
CPT/HCPCS: 36415; 71275; 74177; 74330; 76000; 76705; 80053; 81001; 82728; 83540; 83550; 83690; 83735; 83880; 84484; 85025; 86140; 93005; C1726; C1769; J1100; J1171; J1642; J1650; J1885; J2003; J2060; J2250; J2270; J2405; J2470; J2704; J3010; J3360; J3475; J7030; Q9967

== ENCOUNTER 2025-03-12 19:34 | Observation (INO) | payer MEDICARE, OTHER, SELFPAY ==
[2025-03-12] VITALS (9 sets, daily range): BP systolic 161–202; BP diastolic 73–100; PULSE 46–84; RESP 13–22; TEMP 36.4–36.9; O2SAT 93–98; BMI 28.8
--- OUTSIDE RECORDS SUMMARY | 2025-03-12 19:54 | XMS_ITS | Clinical Summary ---
Author Organization [facility] Address [address] [place] [id number] Care Team Providers Care Chemist Name Role Phone Unavailable Primary Care Provider [...] therelease of HIV test results or diagnoses. [id number] Social History Tobacco Use Types Packs/Day Years Used Date Smoking Tobacco: Never Assessed Comments Unknown Sex and Gender Information Value Date Recorded Sex Assigned at Not on file Legal Sex Female 10:53 PM EST Gender Identity Not on file Sexual Orientation Not on file Plan of Treatment Not on file
--- OUTSIDE RECORDS SUMMARY | 2025-03-12 19:54 | XMS_ITS | Clinical Summary ---
Author Organization [facility] Address [address] [place] [address] Care Team Providers Care Logging Operations Inspector Name Role Phone Reuben Fong MD Primary Care Provider [phone] Social History Tobacco Use Types Packs/Day Years [...] (2 of 2 - PCV) 01/03/2019 01/03/2018 [id number] Vaccine (2 - season) 2024 11/18/2020 [facility]-Influenza [...] Insurance [employer] Care Teams Logging Operations Inspector Relationship Specialty Start Date End Date Reuben Fong MD [address] [place] [address] [place] Krueger [id number] PCP - General 12/25/20
--- NOTE | 2025-03-12 19:56 | CT_ITS ---
PROCEDURE INFORMATION: Exam: CTA Abdomen and Pelvis With Contrast Exam date and time: 03/12/2025 8:34 PM Age: 69 years old Clinical indication: Other: Brbpr TECHNIQUE: Imaging protocol: Computed tomographic angiography of the abdomen and pelvis with contrast. Exam focused on the arteries. 3D rendering (Not supervised by radiologist): MIP and/or 3D reconstructed images were created by the technologist. Radiation optimization: All CT scans at this facility use at least one of these dose optimization techniques: automated exposure control; mA and/or kV adjustment per patient size (includes targeted exams where dose is matched to clinical indication); or iterative reconstruction. Contrast material: ISO 370; Contrast volume: 80 ml; Contrast route: INTRAVENOUS (IV); COMPARISON: 1. CT ANGIO ABDOMEN PELVIS 05/15/2024 5:[address] ABDOMEN PELVIS W CON 03/03/2025 8:37 PM FINDINGS: Lungs: Lung bases are clear. Pleural spaces: No pleural effusion. Heart: The visualized heart is normal. No pericardial effusion. Aorta: No aortic aneurysm. No aortic dissection. Celiac trunk and mesenteric arteries: No occlusion or significant stenosis. Renal arteries: No occlusion or significant stenosis. Right iliac arteries: No occlusion or significant stenosis. Left iliac arteries: No occlusion or significant stenosis. Liver: The liver has normal size and contour. Gallbladder and biliary ducts: Moderate volume of pneumobilia. The gallbladder is absent. Mild extrahepatic biliary ductal dilation. Pancreas: The pancreas is unremarkable. Spleen: The spleen is unremarkable. Adrenal glands: The adrenal glands are normal. Kidneys and ureters: The kidneys enhance symmetrically without hydronephrosis. Simple cyst within the superior pole of the left kidney. The ureters have normal course and caliber without stone. Stomach and bowel: The stomach is normal. The small and large bowel have normal course and caliber. No evidence of bowel obstruction. No pericolonic inflammatory stranding. Appendix: No evidence of appendicitis. Intraperitoneal space: No free air. No significant fluid collection. Lymph nodes: No enlarged lymph nodes. Urinary bladder: The bladder is normal without focal wall thickening. Reproductive: The uterus is absent. No adnexal cysts or masses are identified. Bones/joints: Multilevel degenerative type changes of the spine. No acute osseous abnormality. Soft tissues: Unremarkable. IMPRESSION: 1. No active extravasation. 2. No large vessel occlusion or high-grade stenosis. 3. Pneumobilia. 4. Other findings as above.
--- NOTE | 2025-03-12 20:05 | ED_ITS ---
Discharge Plan Disposition Patient Disposition: Admitted Prescriptions Prescriptions: No Action aspirin [Adult Aspirin Regimen] 81 mg tablet,delayed release (DR/EC) 81 mg PO DAILY albuterol sulfate 90 mcg/actuation HFA aerosol inhaler 2 puff inhalation Q4-6H PRN (Reason: shortness of breath or wheezing) Qty: 18 2RF fluticasone propionate [Allergy Relief (fluticasone)] 50 mcg/actuation spray,suspension 1 spray intranasal BID Qty: 16 2RF Rx Instructions: administer into each nostril 2x/day furosemide 40 mg tablet 40 mg PO DAILY 30 Days Qty: 30 2RF diazepam 5 mg tablet 5 mg PO TID PRN (Reason: anxiety) Qty: 90 0RF Rx Instructions: ok to fill on February 24, 2025 propranolol 20 mg tablet PO Patient Comments: TAKE ONE TABLET BY MOUTH TWICE DAILY alendronate 10 mg tablet 10 mg PO DAILY Qty: 30 2RF escitalopram oxalate [Lexapro] 10 mg Tablet 10 mg PO DAILY lisinopril 20 mg tablet 20 mg PO DAILY oxybutynin chloride 5 mg tablet 5 mg PO DAILY pantoprazole 40 mg Tablet,Delayed Release (Dr/Ec) 40 mg PO BID 30 Days Qty: 60 0RF Referrals Follow up/Referrals: Colin Smith MD [Primary Care Provider, Family Practice] - See instructions Clinical Impressions Clinical Impression: Bleeding per rectum, Vomiting, Diarrhea Instructions Patient Instructions: DI for Acute Abdominal Pain Print Language Print Language: [place] Discharge ED Provider: Willian Prajapati General Adult HPI General Chief complaint: Abdominal Pain Stated complaint: Abdominal Pain; Bleeding; Unable to eat Time Seen by Provider: 03/12/25 19:40 Mode of Arrival: Ambulatory Source of Information: Patient Description of Symptoms (Recalled from ER Triage Doc. by RN): pt reoprts worsening rectal bleeding sice her scope on her esophagus on monday. pt reports she is now expierencing worsening abd. pain and has been unable to eat without expierencing diarrhea. History of Present Illness HPI narrative: Patient is a 69-year-old female with multiple comorbidities heart failure preserved ejection fraction CKD, previous Crohn's disease in remission , not on any medications for Crohn's disease, anxiety, constipation, hypertension who presents emergency department for evaluation of blood in her stool and vomiting. Onset was acute, since she had her EGD last week she says that she has been able to tolerate little p.o. intake at home as it has either cause vomiting or diarrhea, she has vague persistent chest pain which she has had for many weeks. No anticoagulants. She has noticed some red blood over her stool since her EGD causing her to become concerned and presented for continued valuation. Please note that above description of symptoms, in this electronic medical record under categorization of recalled from ER triage doctor by RN are reflective of an initial nursing assessment, however, is not reflective of my full history and physical exam that was personally taken and clarified. Consequentially, this preceding description of symptoms, which may include the patient's categorized chief complaint in the EMR, do not reflect my personal clinical impression, and the ultimate description of history of present illness and patient stated complaints should be deferred to this section of the note. Unless stated otherwise or congruent with this section of the note, additional signs, symptoms, or incongruence should be interpreted as inaccurate with my clinical impression. Related Data Home Medications ?Medication ?Instructions ?Recorded ?Confirmed aspirin 81 mg tablet,delayed 81 mg PO DAILY 09/27/24 0 03/10/25 release (Adult Aspirin Regimen) escitalopram oxalate 10 mg tablet 10 mg PO DAILY 03/0303/10/25 (Lexapro) lisinopril 20 mg tablet 20 mg PO DAILY 03/03/2502/12 oxybutynin chloride 5 mg tablet 5 mg PO DAILY 03/04/25 03/10/25 propranolol 20 mg tablet mg PO 03/10/25 03/10/25 Previous Rx's ?Medication ?Instructions ?Recorded albuterol sulfate 90 mcg/actuation 2 puff inhalation Q 4-6H PRN 12/03/24 aerosol inhaler shortness of breath or wheez ing #18 grams fluticasone propionate 50 1 spray intranasal BID #16 g anatoliy 01/10/25 mcg/actuation nasal spray,suspension (Allergy Relief (fluticasone)) alendronate 10 mg tablet 10 mg PO DAILY #30 tabs 02/11 09/07 diazepam 5 mg tablet 5 mg PO TID PRN anxiety #90 tabs 02/21/25 furosemide 40 mg tablet 40 mg PO DAILY 30 days #30 t abs 03/03/25 pantoprazole 40 mg tablet,delayed 40 mg PO BID 30 days #60 tabs 03/06/25 release Allergies Allergy/AdvReac Type Severity Reaction Status Date / Time cephalexin (From Keflex) Allergy Severe Difficulty Verified 03/10/25 15:09 Breathing prochlorperazine Allergy Severe Swelling Verified 03/10/25 15:09 (PROCHLORPERAZINE) of Lip/Tongue/Throat codeine (CODEINE) Allergy Unknown VOMITING / Verified 03/10/25 15:09 NAUSEA prednisone (PREDNISONE) Allergy Unknown BP ISSUES Verified 03/10/25 15:09 promethazine (From PHENERGAN) Allergy Unknown Unknown Verified 03/10/25 15:09 allergy reaction metoclopramide (From Reglan) Allergy Nausea Verified 03/10/25 15:09 hydroxyzine (From Vistaril) AdvReac Hives Verified 03/10/25 15:09 PFSH PFSH Disclaimer: The information contained in this section may have been updated after the patient was seen, as this information can be updated by other users. Medical History Chest pain Near syncope Chronic abdominal pain Anxiety related tremor High globulin level Shakiness SOB (shortness of breath) Palpitations Bradycardia Screening for colon cancer Breast cancer screening by mammogram Mammogram done 10/2024 Crohn's disease Community acquired pneumonia Chronic kidney disease (HFpEF) heart failure with preserved ejection fraction Abnormal chest CT Schatzki's ring Sinus bradycardia Insomnia Depression Anxiety Osteoporosis Allergies History of anemia History of constipation Sphincter of Oddi dysfunction HTN (hypertension) Bilateral lower extremity edema Surgical History Lipoma of back Status post cholecystectomy H/O oral surgery History of appendectomy H/O total hysterectomy History of esophagogastroduodenoscopy (EGD) History of arthroscopy of right knee Status post knee surgery Status post right knee arthroscopy with partial medial meniscectomy date of surgery May 16, 2022 History of intestinal surgery Family History Other Cancer Heart attack Social History Smoking Status: Never smoker second hand exposure: No alcohol intake: never substance use type: denies use current occupational status: disabled Travel in the last 8 weeks?: None household members: none housing: apartment number of children: 2 current occupational exposures/hazards: No caffeine: Yes Have you lived/traveled outside [place] in past 30 days?: No Contact w/someone who lives/traveled outside [place] past 30 days?: No Exposure to someone with infectious disease in past 14 days?: No Do you have a fever (greater than 100.4 F or 38 C)?: No Have you tested positive for COVID-19?: No Exposed to someone with COVID-19 in past 14 days?: No Do you have a sore throat?: No Do you have a cough?: No Do you have any weakness?: No Do you have any diarrhea?: No Are you experiencing any unusual bleeding?: No Do you have any muscle aches/pain?: No Do you have any abdominal pain?: No Are you experiencing loss of taste or smell?: No Other Medical History Have you received the Flu Vaccine for this season: No Have you received the Pneumonia Vaccine: Yes ROS Obtained: Yes Systems reviewed as appropriate & no additional complaints except as documented Physical Exam General General appearance: alert and in no apparent distress Head Head exam: atraumatic and normocephalic Eye Eye exam: Present PERRL and EOMI ENT ENT exam: Present mucous membranes moist Neck Neck exam: Present normal inspection Chest Chest inspection: Present normal inspection and symmetric chest wall rise Respiratory Respiratory exam: Present normal lung sounds bilaterally; Absent respiratory distress Cardiovascular Cardiovascular exam: Present regular rate and normal rhythm Abdominal Exam Abdominal exam: Present soft; Absent tenderness, guarding or rebound Extremities Exam Extremities exam: Present normal inspection Neurological Exam Neurological exam: Present alert Psychiatric Psychiatric exam: Present normal affect Skin Skin exam: Present warm and dry Medical Decision Making Medical Records Screening: Per USPSTF and CDC recommendations, given the prevalence of disease in our region, it is our hospital?s policy to screen for HIV and viral Hepatitis for all patients aged 18 and over and those with ongoing risk factors. Grant Inquiry Pt receiving controlled substance: No Vital Signs: 03/12/25 19:43 03/12/25 19:48 03/12/25 21:00 Temperature 98.4 F Temperature Source Temporal Artery Scan Pulse Rate 46 L 67 Pulse Rate [Right] 48 L Respiratory Rate 22 Blood Pressure 183/99 H 177/92 H Blood Pressure [Right Arm] 183/99 H Blood Pressure Mean 115 Blood Pressure Mean [Right Arm] 127 02 Sat by Pulse Oximetry 98 98 98 Oxygen Delivery Method Room Air 03/12/25 21:03 Temperature Temperature Source Pulse Rate 84 Pulse Rate [Right] Respiratory Rate Blood Pressure 202/100 H Blood Pressure [Right Arm] Blood Pressure Mean 119 Blood Pressure Mean [Right Arm] 02 Sat by Pulse Oximetry 97 Oxygen Delivery Method Lab Data Lab Results 03/12/25 20:10: WBC 9.0, RBC 3.94 L, Hgb 11.3 L, Hct 34.6 L, MCV 87.8, MCH 28.7, MCHC 32.7, RDW 13.2, Plt Count 271, MPV 11.9 H, Neut % (Auto) 58.1, Lymph % (Auto) 27.7, [place] % (Auto) 9.6 H, Eos % (Auto) 3.7, Baso % (Auto) 0.7, Neut # (Auto) 5.3, Lymph # (Auto) 2.5, [place] # (Auto) 0.9, Eos # (Auto) 0.3, Baso # (Auto) 0.1, Sodium 138, Potassium 3.4 L, Chloride 105, Carbon Dioxide 28, Anion Gap 8.4, BUN 19 H, Creatinine 1.00, Estimated Creat Clear 64, Estimated GFR 55 L , Est GFR ( Amer) 67, Glucose 97, Calcium 9.5, Total Bilirubin 0.3, AST 32, ALT 26, Alkaline Phosphatase 77, Troponin I < 0.01, Total Protein 7.8 D, Albumin 3.9, Globulin 3.9 H, Albumin/Globulin Ratio 1.0 L, Lipase 215 03/12/25 20:10 03/12/25 20:10 Orders (Tests/Meds): ED MEDICATIONS Discontinued Medications Generic Name Dose Route Start Last Admin Trade Name Freq PRN Reason Stop Dose Admin Belladonna Alkaloids 60 ml 03/12/25 19:58 03/12/25 20:18 Belladonna Alkaloids 60 Ml Ml PO 03/12/25 19:59 60 ml ONCE ONE Administration Lactated Ringer's 1,000 mls @ 999 mls/hr 03/12/25 19:56 03/12/25 20:19 Lactated Ringer's 1000 Ml Bag IV 03/12/25 20:56 999 mls/hr .Q1H1M ONE Administration Iopamidol 80 ml 03/12/25 20:41 03/12/25 20:42 Iopamidol-370 (76%);100ml Bottle IV 03/12/25 20:42 80 ml ONCE ONE Administration Morphine Sulfate 4 mg 03/12/25 19:56 03/12/25 20:18 Morphine 4mg/Ml Syringe IV 03/12/25 19:57 4 mg ONCE ONE Administration Ondansetron HCl 4 mg 03/12/25 19:56 03/12/25 20:18 Ondansetron 4mg/2ml Vial IV 03/12/25 19:57 4 mg ONCE ONE Administration Sodium Chloride 10 ml 03/12/25 20:41 03/12/25 20:42 Sodium Chloride 0.9% 10ml Syr (Rad Only) IV 03/12/25 20:42 10 ml ONCE ONE Administration Sodium Chloride 50 ml 03/12/25 20:41 03/12/25 20:42 0.9 % Sodium Chloride 50 Ml Vial IV 03/12/25 20:42 50 ml ONCE ONE Administration ORDERS Category Date Time Status CT angio abd/pel - GI Bleed Stat Cat Scan 03/12/25 19:56 Completed CBC w/Auto Diff [Complete Blood Count Auto Diff] Stat Lab 03/12/25 20:10 Completed CMP [Comprehensive Metabolic Panel] Stat Lab 03/12/25 20:10 Completed Lipase Stat Lab 03/12/25 20:10 Completed Trop I [Troponin I] Stat Lab 03/12/25 20:10 Completed Troponin I Q3H Lab 03/12/25 23:00 Ordered Troponin I Q3H Lab 03/13/25 02:00 Ordered EKG Request [ECG Request] Stat Y 03/12/25 19:56 Ordered ECG Data Tracing #1: Independently interpreted by me rate is 43, rhythm is regular, axis is normal, no ST elevation in anatomical contiguous leads, QTc 411 Medical Decision Narrative: In summary patient is 69-year-old female with past medical history described above who presents emergency department for evaluation of vomiting, bright red blood per rectum. Patient is hemodynamically stable nontoxic-appearing upon arrival, afebrile. 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 She also has a history of Schatzki's ring EGD with dilation in December. With respect to her Crohn's disease she has occasional diarrhea per their note with no blood in the stool will likely need an outpatient colonoscopy which she has pending in the coming weeks. Differential includes hemorrhoid, internal GI bleed, gastroenteritis, among others. Workup will be conducted with hematologic labs, CTA GI bleed protocol, EKG, troponin. Given that patient had recent CTA for PE and the chest pain has been persistent throughout the course no need to repeat this. Initial interventions include multimodal pain control, Zofran, crystalloid bolus. Initial workup reviewed by me, hematologic labs are nonactionable, she has an uptrending hemoglobin, no significant leukocytosis, no GENNA or critical electrolyte abnormality. Initial troponin undetectably low, lipase normal. The case was discussed with Dr. Vizcarra regarding management, patient's pneumobilia is expected status post sphincterotomy. Patient has a distractible abdominal exam. On repeat evaluation patient still feels lousy. Given this with suspected lower GI bleed patient will benefit from continued observation. The case discussed with hospital medicine regarding management they will admit the patient to service for continued evaluation at this time. Critical Care Critical Care Time Critical Care Time: No
--- NOTE | 2025-03-12 20:15 | ECG_ITS ---
APPROVED REPORT Exam: Resting ECG HR:43 bpm ECG Measurements Heart Rate 43 AXES SC 238 P 43 QRSd 95 QRS 2 QT 463 T 27 QTc 411 Conclusion SINUS BRADYCARDIA WITH FIRST DEGREE AV BLOCK MODERATE VOLTAGE CRITERIA FOR LVH, CONSIDER NORMAL VARIANT [MEETS CRITERIA IN ONE OF: R(aVL), S(V1), R(V5), R(V5/V6)+S(V1)] ABNORMAL ECG Electronically signed by : JENNIE CASEY, 03/27/2025 21:54:56
[2025-03-12] MEDS: ONDANSETRON 4MG/2ML VIAL 4 MG IV (20:18)
[2025-03-12] MEDS: MORPHINE 4MG/ML SYRINGE 4 MG IV ×2 (20:18→23:34)
[2025-03-12] MEDS: BELLADONNA ALKALOIDS 60 ML ML PO (20:18)
[2025-03-12] MEDS: LACTATED RINGERS 1000ML 1,000 ML 999 ML IV (20:19)
[2025-03-12 20:23] LABS: Albumin Level 3.9 g/dl (3.5-5.0); Chloride 105 mmol/L (98-107); Sodium 138 mmol/L (136-145)
[2025-03-12 20:24] LABS: Potassium 3.4 mmoL/L (3.5-5.1)
[2025-03-12 20:25] LABS: Hematocrit 34.6 % (37.0-47.0); Hemoglobin 11.3 g/dL (12.2-16.2); Immature Granulocytes % 0.2 %; Mean Corpuscular HGB Conc 32.7 g/dL (31.8-35.4); Mean Corpuscular Hemoglobin 28.7 pg (27.0-31.2); Mean Corpuscular Volume 87.8 fl (81-99); Nucleated Red Blood Cells % 0 %; Platelet Count 271 K/mm3 (142-424); Red Blood Count 3.94 M/mm3 (4.20-5.40); Red Cell Distribution Width-SD 41.8 fL; White Blood Count 9.0 K/mm3 (4.8-10.8)
[2025-03-12 20:26] LABS: Alanine Aminotransferase 26 U/L (12-78); Albumin/Globulin Ratio 1.0 (1.1-1.8); Alkaline Phosphatase 77 U/L (38-126); Anion Gap 8.4 mEq/L (5-15); Aspartate Amino Transferase 32 U/L (14-36); Bilirubin,Total 0.3 mg/dl (0.2-1.3); Blood Urea Nitrogen 19 mg/dl (7-17); Carbon Dioxide 28 mmol/L (22.0-30.0); Creatinine Clearance Estimated 64 mL/min (50-200); Creatinine,Serum 1.00 mg/dl (0.52-1.04); Estimated Glomerular Filt Rate 55 ml/min (>60); GFR (African American) 67 ML/MIN (>60); Globulin 3.9 g/dL (1.3-3.2); Lipase 215 U/L (23-300); Total Protein,Serum 7.8 g/dl (6.3-8.2)
[2025-03-12 20:27] LABS: Calcium 9.5 mg/dl (8.4-10.2); Glucose 97 mg/dl (74-100)
[2025-03-12] MEDS: 0.9 % SODIUM CHLORIDE 50 ML VIAL IV (20:42)
[2025-03-12] MEDS: IOPAMIDOL-370 (76%);100ML BOTTLE 80 ML IV (20:42)
[2025-03-12] MEDS: SODIUM CHLORIDE 0.9% 10ML SYR (RAD ONLY) 10 ML IV (20:42)
[2025-03-12 20:46] LABS: Troponin I < 0.01 ng/ml (0.00-0.034)
[2025-03-12] MEDS: HYDRALAZINE 20MG/ML VIAL 10 MG IV (22:38)
--- NOTE | 2025-03-12 22:59 | EXP.HP ---
History of Present Illness *Admission Date: 03/12/25 *Reason for visit:: Abdominal pain *History of present illness: Angelica Gonzalez is a 69-year-old female with a medical history significant for Crohn's disease in remission (former partial colectomy), sphincter of Oddi dysfunction, former cholecystectomy, mixed IBS, hypertension, anxiety/depression, GERD, HFpEF who presents with nausea/vomiting, abdominal pain, and bright red blood per rectum. Patient was discharged in stable condition recently after also presenting with abdominal pain and found to have sphincter of Oddi dysfunction s/p ERCP with biliary sphincterectomy with resolution of symptoms. However, patient states her abdominal pain is now more so right lower quadrant has been experiencing bright red blood per rectum over the past few days. Denies dark stools, NSAIDs, alcohol use. Patient states she has been in remission for Crohn's disease for many years, but also has not followed up with GI during this time. Has not had a colonoscopy in many years. She was evaluated by [employer] 3 days ago who started vaginal estrogen cream for vaginal atrophy. Workup in the ED showed hemoglobin 11.3 (above last hemoglobin 10), however disproportionately elevated BUN 19. Vital signs stable. CTA abdomen/pelvis revealed expected pneumobilia (s/p ERCP) but no acute findings. Dr. Vizcarra was consulted by the ED who reassured pneumobilia is expected after ERCP. Given new bright red blood per rectum and abdominal pain, case discussed with ED provider and decision was made to admit patient for GI bleed. [facility] Disclaimer: The information contained in this section may have been updated after the patient was seen, as this information can be updated by other users. Medical History Chest pain Near syncope Chronic abdominal pain Anxiety related tremor High globulin level Shakiness SOB (shortness of breath) Palpitations Bradycardia Screening for colon cancer Breast cancer screening by mammogram Mammogram done 10/2024 Crohn's disease Community acquired pneumonia Chronic kidney disease (HFpEF) heart failure with preserved ejection fraction Abnormal chest CT Schatzki's ring Sinus bradycardia Insomnia Depression Anxiety Osteoporosis Allergies History of anemia History of constipation Sphincter of Oddi dysfunction HTN (hypertension) Bilateral lower extremity edema Surgical History Lipoma of back Status post cholecystectomy H/O oral surgery History of appendectomy H/O total hysterectomy History of esophagogastroduodenoscopy (EGD) History of arthroscopy of right knee Status post knee surgery Status post right knee arthroscopy with partial medial meniscectomy date of surgery May 16, 2022 History of intestinal surgery Family History Other Cancer Heart attack Social History (Updated 03/13/25 @ 00:33 by Irina Esquivel RN) Smoking Status: Never smoker second hand exposure: No alcohol intake: never substance use type: denies use current occupational status: disabled Travel in the last 8 weeks?: None household members: none housing: apartment number of children: 2 current occupational exposures/hazards: No caffeine: Yes Have you lived/traveled outside [place] in past 30 days?: No Contact w/someone who lives/traveled outside [place] past 30 days?: No Exposure to someone with infectious disease in past 14 days?: No Do you have a fever (greater than 100.4 F or 38 C)?: No Have you tested positive for COVID-19?: No Exposed to someone with COVID-19 in past 14 days?: No Do you have a sore throat?: No Do you have a cough?: No Do you have any weakness?: No Are you experiencing any nausea/vomitting?: No Do you have any diarrhea?: No Are you experiencing any unusual bleeding?: No Do you have any muscle aches/pain?: No Do you have any abdominal pain?: No Are you experiencing loss of taste or smell?: No Other Medical History Have you received the Flu Vaccine for this season: No Have you received the Pneumonia Vaccine: Yes Meds Home Medications and Allergies Home Medications ?Medication ?Instructions ?Recorded ?Confirmed ?Type aspirin 81 mg tablet,delayed 81 mg PO DAILY 09/27/24 03/12/25 History release (Adult Aspirin Regimen) albuterol sulfate 90 mcg/actuation 2 puff inhalation Q4-6H PRN 12/03/24 03/12/25 Rx aerosol inhaler shortness of breath or wheezing #18 grams fluticasone propionate 50 1 spray intranasal BID #16 grams 01/10/25 03/12/25 Rx mcg/actuation nasal spray,suspension (Allergy Relief (fluticasone)) alendronate 10 mg tablet 10 mg PO DAILY #30 tabs 02/21/25 03/12/25 Rx diazepam 5 mg tablet 5 mg PO TID PRN anxiety #90 tabs 02/21/25 03/12/25 Rx escitalopram oxalate 10 mg tablet 10 mg PO DAILY 03/03/25 03/12/25 History (Lexapro) furosemide 40 mg tablet 40 mg PO DAILY 30 days #30 tabs 03/03/25 03/12/25 Rx lisinopril 20 mg tablet 20 mg PO DAILY 03/03/25 03/12/25 History oxybutynin chloride 5 mg tablet 5 mg PO DAILY 03/04/25 03/12/25 History pantoprazole 40 mg tablet,delayed 40 mg PO BID 30 days #60 tabs 03/06/25 03/12/25 Rx release propranolol 20 mg tablet 20 mg PO BID 03/10/25 03/12/25 History New Prescriptions to Start Prescriptions: Allergies Allergy/AdvReac Type Severity Reaction Status Date / Time cephalexin (From Keflex) Allergy Severe Difficulty Verified 03/10/25 15:09 Breathing prochlorperazine Allergy Severe Swelling Verified 03/10/25 15:09 (PROCHLORPERAZINE) of Lip/Tongue/Throat codeine (CODEINE) Allergy Unknown VOMITING / Verified 03/10/25 15:09 NAUSEA prednisone (PREDNISONE) Allergy Unknown BP ISSUES Verified 03/10/25 15:09 promethazine (From PHENERGAN) Allergy Unknown Unknown Verified 03/10/25 15:09 allergy reaction metoclopramide (From Reglan) Allergy Nausea Verified 03/10/25 15:09 hydroxyzine (From Vistaril) AdvReac Hives Verified 03/10/25 15:09 Exam Data for Last 24 hours Vital signs and Labs for Last 24 Hours: Temp Pulse Resp BP Pulse Ox O2 Del Method 97.6 F 53 L 18 178/80 H 95 Room Air 03/12/25 22:41 03/12/25 22:41 03/12/25 22:41 03/12/25 22:41 03/12/25 22:00 03/12/25 22:41 Laboratory Results - last 24 hr 03/12/25 20:10: WBC 9.0, RBC 3.94 L, Hgb 11.3 L, Hct 34.6 L, MCV 87.8, MCH 28.7, MCHC 32.7, RDW 13.2, Plt Count 271, MPV 11.9 H, Neut % (Auto) 58.1, Lymph % (Auto) 27.7, Cooke % (Auto) 9.6 H, Eos % (Auto) 3.7, Baso % (Auto) 0.7, Neut # (Auto) 5.3, Lymph # (Auto) 2.5, [place] # (Auto) 0.9, Eos # (Auto) 0.3, Baso # (Auto) 0.1, Sodium 138, Potassium 3.4 L, Chloride 105, Carbon Dioxide 28, Anion Gap 8.4, BUN 19 H, Creatinine 1.00, Estimated Creat Clear 64, Estimated GFR 55 L, Est GFR ( Amer) 67, Glucose 97, Calcium 9.5, Total Bilirubin 0.3, AST 32, ALT 26, Alkaline Phosphatase 77, Troponin I < 0.01, Total Protein 7.8 D, Albumin 3.9, Globulin 3.9 H, Albumin/Globulin Ratio 1.0 L, Lipase 215 I & O for Last 24 hours: Intake & Output 03/09/25 03/10/25 03/11/25 03/12/25 23:59 23:59 23:59 23:59 Weight 76.204 kg Constitutional Constitutional: no acute distress *Routine HEENT Exam Head: Present normocephalic Eye: Present EOMI and PERRL ENT: Present mucous membranes moist *Routine Neck Exam Neck: Present supple; Absent lymphadenopathy *Routine Respiratory Exam Respiratory: Present CTA bilaterally *Routine Cardiovascular Exam Cardiovascular: Present RRR *Routine Abdominal Exam Abdominal: Present soft, normoactive bowel sounds and tenderness Comments: Mild to moderate right lower quadrant abdominal tenderness without peritoneal signs. *Routine Rectal Exam Rectal:: deferred *Routine Genitalia Exam Genitalia:: deferred *Routine Extremities Exam Extremities: Absent cyanosis, clubbing or edema *Routine Skin Exam Skin: Present warm; Absent rash *Routine Neurological Exam Neurological: Present alert and oriented X3 Assessment and Plan *Assessment and plan (1) Diarrhea: Status: Acute Category: Medical Code(s): R19.7 - Diarrhea, unspecified (2) Vomiting: Status: Acute Category: Medical Code(s): R11.10 - Vomiting, unspecified (3) Bleeding per rectum: Status: Acute Category: Medical Code(s): K62.5 - Hemorrhage of anus and rectum (4) Atrial flutter: Status: Acute Category: Medical Code(s): I48.92 - Unspecified atrial flutter Plan Angelica Gonzalez is a 69-year-old female with a medical history significant for Crohn's disease in remission (former partial colectomy), sphincter of Oddi dysfunction, former cholecystectomy, mixed IBS, hypertension, anxiety/depression, GERD, HFpEF who presents with nausea/vomiting, abdominal pain, and bright red blood per rectum. Patient was discharged in stable condition recently after also presenting with abdominal pain and found to have sphincter of Oddi dysfunction s/p ERCP with biliary sphincterectomy with resolution of symptoms. However, patient states her abdominal pain is now more so right lower quadrant has been experiencing bright red blood per rectum over the past few days. Denies dark stools, NSAIDs, alcohol use. Patient states she has been in remission for Crohn's disease for many years, but also has not followed up with GI during this time. Has not had a colonoscopy in many years. She was evaluated by [employer] 3 days ago who started vaginal estrogen cream for vaginal atrophy. Workup in the ED showed hemoglobin 11.3 (above last hemoglobin 10), however disproportionately elevated BUN 19. Vital signs stable. CTA abdomen/pelvis revealed expected pneumobilia (s/p ERCP) but no acute findings. Dr. Vizcarra was consulted by the ED who reassured pneumobilia is expected after ERCP. Given new bright red blood per rectum and abdominal pain, case discussed with ED provider and decision was made to admit patient for GI bleed. #Suspected gastroenteritis #RLQ abdominal pain #Lower GI bleed #Bright red blood per rectum #Acute nausea/vomiting/diarrhea #History of Crohn's disease ? Presented with several day onset of abdominal pain, bright red blood per rectum, acute diarrhea. Recently underwent successful ERCP for biliary sphincterectomy about 1 week ago. ? CT abdomen/pelvis revealed expected pneumobilia s/p ERCP but no acute findings. ? Initial hemoglobin 11.3, above last week's 10.3. However, BUN disproportionately elevated 19. ? CRP, ESR normal making Crohn's disease less likely. Will eventually need outpatient colonoscopy. ? RLQ abdominal pain may be normal sequela of s/p ERCP versus acute gastroenteritis. LFTs normal which is reassuring for biliary disease. ? Started IV Protonix 40 mg twice daily. Hold home aspirin. ? Follow-up morning H/H. Plan to consult general surgery if there is a drop. ? Follow-up lactic acid, FOBT, diarrhea panel, fecal calprotectin. ? Continuous cardiac telemetry. ? If improvement in abdominal pain and morning H/H is reassuring, anticipate discharge with close follow-up with GI for outpatient colonoscopy. #Paroxysmal A-flutter with SVR ? Seems to be new onset, patient is going in and out of a flutter. Heart rate in 50s. But intermittently going into the 100s, possibly from anxiety versus tachybrady syndrome. ? Follow-up limited ECHO. ? Cardiology consulted, pending further recommendations. ? Holding anticoagulation in the setting of GI bleed. #Hypertension ? Hold home lisinopril, propranolol in the setting of GI bleed. Resume if morning H&H reassuring. #HFpEF ? Euvolemic. Hold home Lasix until morning H&H. #Anxiety/depression ? Continue home escitalopram, diazepam as needed. Hold home propranolol. #GERD ? Continue home PPI. DNR/DNI DVT prophylaxis: SCDs.
[2025-03-12] MEDS: PANTOPRAZOLE 40MG VIAL 40 MG IV (23:18)
[2025-03-12] MEDS: SODIUM CHLORIDE 0.9% 10ML VIAL 10 ML IV (23:18)
[2025-03-12] MEDS: LACTATED RINGERS 1000ML 1,000 ML 75 ML IV (23:18)
[2025-03-12 23:42] LABS: C-Reactive Protein 3.3 mg/L (0-4)
[2025-03-12 23:47] LABS: Troponin I < 0.01 ng/ml (0.00-0.034)
--- NOTE | 2025-03-12 23:49 | ECG_ITS ---
APPROVED REPORT Exam: Resting ECG HR:58 bpm ECG Measurements Heart Rate 58 AXES QRSd 98 QRS 14 QT 408 T 34 QTc 406 Conclusion ATRIAL FLUTTER/TACHYCARDIA WITH SLOW VENTRICULAR RESPONSE ABNORMAL RHYTHM ECG WARNING: DATA QUALITY MAY AFFECT INTERPRETATION UNCONFIRMED REPORT Electronically signed by : Colin Durant MD 03/13/2025 08:38:54
--- NOTE | 2025-03-12 23:50 | ECG_ITS ---
APPROVED REPORT Exam: Resting ECG HR:56 bpm ECG Measurements Heart Rate 56 AXES MT 212 P 65 QRSd 94 QRS 5 QT 425 T 8 QTc 417 Conclusion SINUS BRADYCARDIA WITH FIRST DEGREE AV BLOCK ABNORMAL ECG UNCONFIRMED REPORT Electronically signed by : Colin Durant MD 03/13/2025 08:38:47
[2025-03-12] MEDS: POTASSIUM CHLORIDE 20MEQ TAB 40 MEQ PO (23:56)
[2025-03-13 01:41] LABS: Microscopic, Urine URINE MICROSCOPIC (MICROSCOPIC)
[2025-03-13 01:50] LABS: Bilirubin,Urine Negative (Negative); Color,Urine YELLOW (Yellow); Glucose,Urine (UA) Negative (Negative); Ketones,Urine Negative (Negative); Leukocyte Esterase,Urine Negative (Negative); PH,Urine 7.0 (5.0-8.5); Protein,Urine Negative (Negative); Specific Gravity, Urine 1.010 (1.005-1.030); Urobilinogen,Urine 0.2 EU/dl (0.2)
[2025-03-13 02:13] LABS: Bacteria,Urine Trace /lpf; WBC,Urine Occasional #/hpf (0-3)
[2025-03-13] MEDS: MORPHINE 4MG/ML SYRINGE 4 MG IV (03:38)
[2025-03-13] MEDS: POTASSIUM CHLORIDE 20MEQ TAB 40 MEQ PO (03:38)
[2025-03-13 03:39] LABS: Troponin I < 0.01 ng/ml (0.00-0.034)
[2025-03-13 04:00] VITALS: BP 176/86; PULSE 50; PULSE 60; RESP 56; TEMP 36.7; O2SAT 96; BMI 31.1
--- NOTE | 2025-03-13 04:22 | PC.NURSE ---
0422 Linen bags were taken out, table wiped, and ice filled. Patient does not need anything at this time.
--- NOTE | 2025-03-13 05:03 | CA_ITS ---
APPROVED REPORT EXAM: Limited 2D Echocardiogram Terminal Clerk: Aliyah Henry, RCS, RVS Ht: 5 ft 4 in Wt: 183lbs BSA: 1.88 BP: 178/80 mmHg Indications: Aflutter, HTN, Braycardia, Upper GI bleed, Chron's disease M-Mode Dimensions LVDd 5.54 cm (3.5-5.7) LVDs 3.99 cm (3.5-5.7) IVSd 1.21 cm (0.6-1.1) PWd 1.10 cm (0.6-1.1) EF (Teich) 53.60% FS 28.00% EDV (Teich) 149.90 mL ESV (Teich) 69.60 mL Other Information Study Quality: Fair Conclusion This is a limited TTE to evaluate for LV systolic function. Limited windows are obtained. The left ventricle is normal in size. There is increased LV wall thickness. There is normal global LV systolic function. No regional wall motion abnormalities are present. LVEF is 55%. The right ventricle is mildly dilated. There is normal RV systolic function. Mild biatrial dilation. No pericardial effusion. Electronically signed by : Soni Cary MD 03/13/2025 11:02:27
[2025-03-13 05:09] VITALS: PULSE 70
--- NOTE | 2025-03-13 07:00 | PC.NURSE ---
Lab and nurse x3 unable to obtain needed labs, approved draw from IV or vein in foot if needed. unable to obtain labs from IV but was able to obtain labs from vein in pt's right foot.
[2025-03-13 07:20] LABS: Alanine Aminotransferase 22 U/L (12-78); Albumin Level 3.8 g/dl (3.5-5.0); Albumin/Globulin Ratio 1.5 (1.1-1.8); Alkaline Phosphatase 62 U/L (38-126); Anion Gap 8.1 mEq/L (5-15); Aspartate Amino Transferase 36 U/L (14-36); Bilirubin,Total 0.4 mg/dl (0.2-1.3); Blood Urea Nitrogen 14 mg/dl (7-17); Calcium 9.0 mg/dl (8.4-10.2); Carbon Dioxide 28 mmol/L (22.0-30.0); Chloride 109 mmol/L (98-107); Creatinine Clearance Estimated 63 mL/min (50-200); Creatinine,Serum 1.10 mg/dl (0.52-1.04); Estimated Glomerular Filt Rate 49 ml/min (>60); GFR (African American) 60 ML/MIN (>60); Globulin 2.6 g/dL (1.3-3.2); Glucose 89 mg/dl (74-100); Magnesium 1.6 mg/dl (1.6-2.3); Potassium 4.1 mmoL/L (3.5-5.1); Sodium 141 mmol/L (136-145); Total Protein,Serum 6.4 g/dl (6.3-8.2)
[2025-03-13 07:31] LABS: Hematocrit 31.8 % (37.0-47.0); Hemoglobin 10.2 g/dL (12.2-16.2); Immature Granulocytes % 0.4 %; Mean Corpuscular HGB Conc 32.1 g/dL (31.8-35.4); Mean Corpuscular Hemoglobin 28.6 pg (27.0-31.2); Mean Corpuscular Volume 89.1 fl (81-99); Nucleated Red Blood Cells % 0 %; Platelet Count 182 K/mm3 (142-424); Red Blood Count 3.57 M/mm3 (4.20-5.40); Red Cell Distribution Width-SD 43.5 fL; White Blood Count 7.3 K/mm3 (4.8-10.8)
[2025-03-13 08:00] VITALS: BP 130/68; PULSE 50; PULSE 54; RESP 20; TEMP 36.8; O2SAT 94
[2025-03-13] MEDS: HYDROCODONE/APAP 5/325 MG TABLET 1 TAB PO ×2 (08:56→12:31)
[2025-03-13] MEDS: PROPRANOLOL 20MG TAB 20 MG PO (08:57)
[2025-03-13] MEDS: diazePAM 5MG TABLET 5 MG PO (08:57)
[2025-03-13] MEDS: ESCITALOPRAM 10MG TABLET 10 MG PO (08:57)
[2025-03-13] MEDS: PANTOPRAZOLE 40MG VIAL 40 MG IV (08:57)
--- NOTE | 2025-03-13 09:05 | HMH.PHAINT1 ---
Pharmacy Intervention Comments: MEDICATION RECONCILIATION COMPLETED ON PATIENT USING EXTERNAL FILL HISTORY FROM PHARMACY. -YAMILET KEITH, [place]
--- NOTE | 2025-03-13 09:39 | P.CONCA_ITS ---
History of Present Illness History of Present Illness Consult date: 03/13/25 Requesting physician: Librado Hernandes Chief complaint: vomiting and bright red blood from rectum History of present illness: Hospitalist Note: In summary patient is 69-year-old female with past medical history described above who presents emergency department for evaluation of vomiting, bright red blood per rectum. Patient is hemodynamically stable n ontoxic-appearing upon arrival, afebrile. 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 She also has a history of Schatzki's ring EGD with dilation in December. With respect to her Crohn's disease she has occasional diarrhea per their note with no blood in the stool will likely need an outpatient colonoscopy which she has pending in the coming weeks. Differential includes hemorrhoid, internal GI bleed, gastroenteritis, among others. Workup will be conducted with hematologic labs, CTA GI bleed protocol, EKG, troponin. Given that patient had recent CTA for PE and the chest pain has been persistent throughout the course no need to repeat this. Initial interventions include multimodal pain control, Zofran, crystalloid bolus. Initial workup reviewed by me, hematologic labs are nonactionable, she has an uptrending hemoglobin, no significant leukocytosis, no GENNA or critical electrolyte abnormality. Initial troponin undetectably low, lipase normal. The case was discussed with Dr. Vizcarra regarding management, patient's pneumobilia is expected status post sphincterotomy. Patient has a distractible abdominal exam. On repeat evaluation patient still feels lousy. Given this with suspected lower GI bleed patient will benefit from continued observation. The case discussed with hospital medicine regarding management they will admit the patient to service for continued evaluation at this time. Cardiology note: This is a 69-year-old white female with a past medical history of hypertension, hyperlipidemia, HFpEF and mild mitral regurg who presented to emergency department with complaints of bright red rectal bleeding and vomiting who was ultimately admitted for a GI bleed. Cardiology was asked to evaluate for patient developing a flutter throughout the evening with a heart rate in the 50s and intermittently going up to 100s. EKGs were reviewed and it does appear the patient was in atrial flutter at a rate of 50. Patient denies symptoms of chest pain, shortness of breath, palpitations. EKG currently shows normal sinus rhythm at a rate of 50. Patient did wear a 2-week event monitor in February 2025 which showed normal sinus rhythm with PACs and PVCs and brief episodes of SVT. No A-fib or flutter was identified. Patient also has a CCTA score of 0 with no evidence of coronary artery disease noted for 2023. Historically patient has had a normal ejection fraction of 55% with a history of diastolic dysfunction which is controlled on diuretics. Echocardiogram from this morning is pending. Troponin is negative. Hemoglobin this morning is stable at 10.2. [facility] Disclaimer: The information contained in this section may have been updated after the patient was seen, as this information can be updated by other users. Medical History Chest pain Near syncope Chronic abdominal pain Anxiety related tremor High globulin level Shakiness SOB (shortness of breath) Palpitations Bradycardia Screening for colon cancer Breast cancer screening by mammogram Mammogram done 10/2024 Crohn's disease Community acquired pneumonia Chronic kidney disease (HFpEF) heart failure with preserved ejection fraction Abnormal chest CT Schatzki's ring Sinus bradycardia Insomnia Depression Anxiety Osteoporosis Allergies History of anemia History of constipation Sphincter of Oddi dysfunction HTN (hypertension) Bilateral lower extremity edema Surgical History Lipoma of back Status post cholecystectomy H/O oral surgery History of appendectomy H/O total hysterectomy History of esophagogastroduodenoscopy (EGD) History of arthroscopy of right knee Status post knee surgery Status post right knee arthroscopy with partial medial meniscectomy date of surgery May 16, 2022 History of intestinal surgery Family History Other Cancer Heart attack Social History (Updated 03/13/25 @ 00:33 by Irina Esquivel RN) Smoking Status: Never smoker second hand exposure: No alcohol intake: never substance use type: denies use current occupational status: disabled Travel in the last 8 weeks?: None household members: none housing: apartment number of children: 2 current occupational exposures/hazards: No caffeine: Yes Have you lived/traveled outside [place] in past 30 days?: No Contact w/someone who lives/traveled outside [place] past 30 days?: No Exposure to someone with infectious disease in past 14 days?: No Do you have a fever (greater than 100.4 F or 38 C)?: No Have you tested positive for COVID-19?: No Exposed to someone with COVID-19 in past 14 days?: No Do you have a sore throat?: No Do you have a cough?: No Do you have any weakness?: No Are you experiencing any nausea/vomitting?: No Do you have any diarrhea?: No Are you experiencing any unusual bleeding?: No Do you have any muscle aches/pain?: No Do you have any abdominal pain?: No Are you experiencing loss of taste or smell?: No Review of Systems Review of Systems Review of systems:: pertinent systems reviewed and negative unless documented below *Cardiovascular Cardiovascular: Denies chest pain and Reports dyspnea *Respiratory Respiratory: Reports dyspnea *Gastrointestinal Gastrointestinal: Reports hematochezia and Reports vomiting Exam Data for Last 24 hours Vital signs and Labs for Last 24 Hours: Temp Pulse Resp BP Pulse Ox O2 Del Method O2 Flow Rate 98.0 F 50 L 56 H 176/86 H 96 Nasal Cannula 2 03/13/25 04:00 03/13/25 08:00 03/13/25 04:00 03/13/25 04:00 03/13/25 04:00 03/13/25 09:00 03/13/25 09:00 Laboratory Results - last 24 hr 03/12/25 20:10: WBC 9.0, RBC 3.94 L, Hgb 11.3 L, Hct 34.6 L, MCV 87.8, MCH 28.7, MCHC 32.7, RDW 13.2, Plt Count 271, MPV 11.9 H, Neut % (Auto) 58.1, Lymph % (Auto) 27.7, Taliaferro % (Auto) 9.6 H, Eos % (Auto) 3.7, Baso % (Auto) 0.7, Neut # (Auto) 5.3, Lymph # (Auto) 2.5, Taliaferro # (Auto) 0.9, Eos # (Auto) 0.3, Baso # (Auto) 0.1, ESR 21, Sodium 138, Potassium 3.4 L, Chloride 105, Carbon Dioxide 28, Anion Gap 8.4, BUN 19 H, Creatinine 1.00, Estimated Creat Clear 64, Estima arminda GFR 55 L, Est GFR ( Amer) 67, Glucose 97, Calcium 9.5, Total Bilirubin 0.3, AST 32, ALT 26, Alkaline Phosphatase 77, Troponin I < 0.01, Total Protein 7.8 D, Albumin 3.9, Globulin 3.9 H, Albumin/Globulin Ratio 1.0 L, Lipase 215 03/12/25 23:13: Troponin I < 0.01, C-Reactive Protein 3.3 03/13/25 01:30: Urine Color Yellow, Urine Appearance Clear, Urine pH 7.0, Ur Specific Hathorne 1.010, Urine Protein Negative, Urine Glucose (UA) Negative, Urine Ketones Negative, Urine Blood Negative, Urine Nitrate Negative, Urine Bilirubin Negative, Urine Urobilinogen 0.2, Ur Leukocyte Esterase Negative, Urine WBC Occasional, Ur Squamous Epith Cells 3-5, Urine Bacteria Trace 03/13/25 02:48: Troponin I < 0.01 03/13/25 06:42: WBC 7.3, RBC 3.57 L, Hgb 10.2 L, Hct 31.8 L, MCV 89.1, MCH 28.6, MCHC 32.1, RDW 13.3, Plt Count 182 D, MPV 12.9 H, Neut % (Auto) 48.3, Lymph % (Auto) 36.1, Taliaferro % (Auto) 9.5 H, Eos % (Auto) 5.0, Baso % (Auto) 0.7, Neut # (Auto) 3.5, Lymph # (Auto) 2.7, Taliaferro # (Auto) 0.7, Eos # (Auto) 0.4, Baso # (Auto) 0.1, Sodium 141, Potassium 4.1 D, Chloride 109 H, Carbon Dioxide 28, Anion Gap 8.1, BUN 14 D, Creatinine 1.10 H, Estimated Creat Clear 63, Estimated GFR 49 L, Est GFR ( Amer) 60, Glucose 89, Lactate 1.1, Calcium 9.0, Magnesium 1.6, Total Bilirubin 0.4, AST 36, ALT 22, Alkaline Phosphatase 62, Total Protein 6.4, Albumin 3.8, Globulin 2.6, Albumin/Globulin Ratio 1.5 I & O for Last 24 hours: Intake & Output 03/10/25 03/11/25 03/12/25 03/13/25 23:59 23:59 23:59 23:59 Intake Total 195 / 195 Output Total 150 / 150 Balance 45 / 45 Weight 168 lb 182 lb 11.2 oz Constitutional Constitutional: no acute distress *Routine Respiratory Exam Respiratory: Present CTA bilaterally and symmetric chest movement *Routine Cardiovascular Exam Cardiovascular: Present Normal S1, Normal S2 and bradycardia *Routine Abdominal Exam Abdominal: Present soft and normoactive bowel sounds; Absent tenderness *Routine Extremities Exam Extremities: Present full ROM and normal capillary refill; Absent edema *Routine Skin Exam Skin: Present intact, dry and warm Detailed Neck Exam: Thyroids Thyroid: Absent bruit Meds Home Medications and Allergies Home Medications ?Medication ?Instructions ?Recorded ?Confirmed ?Type aspirin 81 mg tablet,delayed 81 mg PO DAILY 09/27/24 0 03/12/25 History release (Adult Aspirin Regimen) albuterol sulfate 90 mcg/actuation 2 puff inhalation Q 4-6H PRN 12/03/24 03/12/25 Rx aerosol inhaler shortness of breath or wheez ing #18 grams fluticasone propionate 50 1 spray intranasal BID #16 g anatoliy 01/10/25 03/12/25 Rx mcg/actuation nasal spray,suspension (Allergy Relief (fluticasone)) alendronate 10 mg tablet 10 mg PO DAILY #30 tabs 02/1103/12/25 Rx diazepam 5 mg tablet 5 mg PO TID PRN anxiety #90 tabs 02/21/25 03/12/25 Rx escitalopram oxalate 10 mg tablet 10 mg PO DAILY 03/0303/12/25 History (Lexapro) furosemide 40 mg tablet 40 mg PO DAILY 30 days #30 t abs 03/03/25 03/12/25 Rx lisinopril 20 mg tablet 20 mg PO DAILY 03/03/2502/13 History oxybutynin chloride 5 mg tablet 5 mg PO DAILY 03/04/25 03/12/25 History pantoprazole 40 mg tablet,delayed 40 mg PO BID 30 days #60 tabs 03/06/25 03/12/25 Rx release propranolol 20 mg tablet 20 mg PO BID 03/10/25 History New Prescriptions to Start Prescriptions: Allergies Allergy/AdvReac Type Severity Reaction Status Date / Time cephalexin (From [employer]) Allergy Severe Difficulty Verified 03/10/25 15:09 Breathing prochlorperazine Allergy Severe Swelling Verified 03/10/25 15:09 (PROCHLORPERAZINE) of Lip/Tongue/Throat codeine (CODEINE) Allergy Unknown VOMITING / Verified 03/10/25 15:09 NAUSEA prednisone (PREDNISONE) Allergy Unknown BP ISSUES Verified 03/10/25 15:09 promethazine (From PHENERGAN) Allergy Unknown Unknown Verified 03/10/25 15:09 allergy reaction metoclopramide (From Reglan) Allergy Nausea Verified 03/10/25 15:09 hydroxyzine (From Vistaril) AdvReac Hives Verified 03/10/25 15:09 Assessment and Plan *Assessment and plan (1) Atrial flutter: Status: Acute Category: Medical Code(s): I48.92 - Unspecified atrial flutter (2) Heart failure with preserved ejection fraction: Status: Acute Category: Medical Code(s): I50.30 - Unspecified diastolic (congestive) heart failure Plan New Onset Aflutter Chadsvasc score > 2 Vs essential tremors/artifact EKGs reviewed and did show what appears as Aflutter at a controlled rate, however, has a known hx of essential tremors which cause artifact on EKG. EKG this morning is NSR rate 50 Trop negative Normal CCTA this year Patient is asymptomatic Would recommend repeating a 2 week event monitor when DC home. Patient recently had one which did not show afib/flutter Would start OAC for flutter once patient is cleared by GI if AFib/flutter is confirmed on event onitor. Can continue Propranolol per home meds at this time as patient is asymptomatic. History of HFpEF No signs of volume overload at this time Historically normal EF Repeat Echo shows EF of 55 CV summary: EF is 55. Questionable flutter vs. tremor/artifact noted. This morning patient is in normal sinus rhythm at a rate of 50. Given history of GI bleed would recommend holding on OAC at this point until cleared by GI and A-fib flutter confirmed. Please repeat 2-week event monitor at time of discharge. Patient can continue her propranolol at this time despite being bradycardic because patient is asymptomatic and takes it for anxiety and tremors. Cardiology will sign off. Please contact service for any additional concerns.
--- NOTE | 2025-03-13 11:46 | PC.NURSE ---
Pt. states she would like a dose of morphine for her hip pain. She is aware of her d/c for today and that she can have a pain pill around 13:00.
--- NOTE | 2025-03-13 11:48 | P.DS_ITS ---
<Statement entered by Bayron Holloway MD - 03/15/25 17:20> Agree with MACHINE LEARNING INTERN note as documented General Admission date:: 03/12/25 Discharge date: 03/13/25 HPI HPI HPI: Angelica Gonzalez is a 69-year-old female with a medical history significant for Crohn's disease in remission (former partial colectomy), sphincter of Oddi dysfunction, former cholecystectomy, mixed IBS, hypertension, anxiety/d epression, GERD, HFpEF who presents with nausea/vomiting, abdominal pain, and bright red blood per rectum. Patient was discharged in stable condition recently after also presenting with abdominal pain and found to have sphincter of Oddi dysfunction s/p ERCP with biliary sphincterectomy with resolution of symptoms. However, patient states her abdominal pain is now more so right lower quadrant has been experiencing bright red blood per rectum over the past few days. Denies dark stools, NSAIDs, alcohol use. Patient states she has been in remission for Crohn's disease for many years, but also has not followed up with GI during this time. Has not had a colonoscopy in many years. She was evaluated by HUMAN RESOURCES TRAINING MANAGER 3 days ago who started vaginal estrogen cream for vaginal atrophy. Workup in the ED showed hemoglobin 11.3 (above last hemoglobin 10), however disproportionately elevated BUN 19. Vital signs stable. CTA abdomen/pelvis revealed expected pneumobilia (s/p ERCP) but no acute findings. Dr. Vizcarra was consulted by the ED who reassured pneumobilia is expected after ERCP. Given new bright red blood per rectum and abdominal pain, case discussed with ED provider and decision was made to admit patient for GI bleed. Hospital Course Hospital Course Hospital Course: Ms. Gonzalez is a 69-year-old female who presented to the emergency department yesterday with complaints of abdominal pain and bright red bleeding per rectum. Assessment in the ED was overall unremarkable. She had uptrending hemoglobin, no significant leukocytosis, no GENNA, or critical electrolyte abnormalities. She did complain of diarrhea, but has not had any episodes or bowel movement since admission. She denies any bloody emesis, nausea, chest pain, shortness of breath. CT showed pneumobilia, status post ERCP last week, but no other acute findings. Dr. Vizcarra was consulted from the ED and discussed that this is an expected finding after an ERCP. Patient does have a significant history of Crohn's disease and has not had a colonoscopy in approximately [address] Vizcarra, GI, is out this week. Discussed case with GI and patient was scheduled for outpatient colonoscopy on March 19. Repeat labs this morning show a stable hemoglobin, 10.3. No acute bright red bleeding per rectum or diarrhea. Patient does have intermittent abdominal pain, right lower quadrant. She states that it is moderate, discharged home with Paradise 5/325 mg as needed for severe abdominal pain. During admission patient had what appeared to be atrial flutter on cardiac telemetry, EKG was obtained and showed possible atrial flutter. Assessment of previous records with her PCP and cardiology noted that the patient recently had a similar episode, she wore a court monitor for 2 weeks and no atrial flutter episodes occurred. Repeat EKG was taken shortly after and patient was noted to be in normal sinus rhythm. Patient does have extensive history of anxiety with tremors. Suspicion that EKG was picking up tremors and patient was not actually in atrial flutter. Cardiology was consulted and recommended another 2-week event monitor to ensure patient is not having intermittent a flutter/A-fib episodes. Patient is not symptomatic. Denies shortness of breath, palpitations. Patient does take aspirin 81 mg daily. Holding currently due to rectal bleeding. Recommendations made by cardiology to possibly start on OAG after procedure and once H&H remained stable. Patient does not appear to show any signs of volume overload, euvolemic, historically normal EF and repeat echo today shows a EF of 55%. Patient noted to be in sinus bradycardia at discharge. She takes propranolol 20 mg twice daily. Continue at discharge. Exam Data for Last 24 hours Vital signs and Labs for Last 24 Hours: Temp Pulse Resp BP Pulse Ox O2 Del Method O2 Flow Rate 98.2 F 54 L 20 130/68 94 L Nasal Cannula 2 03/13/25 08:00 03/13/25 08:00 03/13/25 08:00 03/13/25 08:00 03/13/25 08:00 03/13/25 09:00 03/13/25 09:00 Laboratory Results - last 24 hr 03/12/25 20:10: WBC 9.0, RBC 3.94 L, Hgb 11.3 L, Hct 34.6 L, MCV 87.8, MCH 28.7, MCHC 32.7, RDW 13.2, Plt Count 271, MPV 11.9 H, Neut % (Auto) 58.1, Lymph % (Auto) 27.7, [place] % (Auto) 9.6 H, Eos % (Auto) 3.7, Baso % (Auto) 0.7, Neut # (Auto) 5.3, Lymph # (Auto) 2.5, [place] # (Auto) 0.9, Eos # (Auto) 0.3, Baso # (Auto) 0.1, ESR 21, Sodium 138, Potassium 3.4 L, Chloride 105, Carbon Dioxide 28, Anion Gap 8.4, BUN 19 H, Creatinine 1.00, Estimated Creat Clear 64, Estimated GFR 55 L, Est GFR ( Amer) 67, Glucose 97, Calcium 9.5, Total Bilirubin 0.3, AST 32, ALT 26, Alkaline Phosphatase 77, Troponin I < 0.01, Total Protein 7.8 D, Albumin 3.9, Globulin 3.9 H, Albumin/Globulin Ratio 1.0 L, Lipase 215 03/12/25 23:13: Troponin I < 0.01, C-Reactive Protein 3.3 03/13/25 01:30: Urine Color Yellow, Urine Appearance Clear, Urine pH 7.0, Ur Specific [place] 1.010, Urine Protein Negative, Urine Glucose (UA) Negative, Urine Ketones Negative, Urine Blood Negative, Urine Nitrate Negative, Urine Bilirubin Negative, Urine Urobilinogen 0.2, Ur Leukocyte Esterase Negative, Urine WBC Occasional, Ur Squamous Epith Cells 3-5, Urine Bacteria Trace 03/13/25 02:48: Troponin I < 0.01 03/13/25 06:42: WBC 7.3, RBC 3.57 L, Hgb 10.2 L, Hct 31.8 L, MCV 89.1, MCH 28.6, MCHC 32.1, RDW 13.3, Plt Count 182 D, MPV 12.9 H, Neut % (Auto) 48.3, Lymph % (Auto) 36.1, [place] % (Auto) 9.5 H, Eos % (Auto) 5.0, Baso % (Auto) 0.7, Neut # ( Auto) 3.5, Lymph # (Auto) 2.7, [place] # (Auto) 0.7, Eos # (Auto) 0.4, Baso # (Auto) 0.1, Sodium 141, Potassium 4.1 D, Chloride 109 H, Carbon Dioxide 28, An ion Gap 8.1, BUN 14 D, Creatinine 1.10 H, Estimated Creat Clear 63, Estimated GFR 49 L, Est GFR ( Amer) 60, Glucose 89, Lactate 1.1, Calcium 9.0, Magnesium 1.6, Total Bilirubin 0.4, AST 36, ALT 22, Alkaline Phosphatase 62, Total Protein 6.4, Albumin 3.8, Globulin 2.6, Albumin/Globulin Ratio 1.5 Temp Pulse Resp BP Pulse Ox O2 Del Method O2 Flow Rate 98.4 F 44 L 18 142/80 H 96 Room Air 2 09/05/23 04:00 09/05/23 04:10 09/05/23 04:00 09/05/23 04:00 09/05/23 04:00 09/05/23 06:58 09/04/23 12:21 Laboratory Results - last 24 hr 09/04/23 06:08: Sodium 139, Potassium 4.1, Chloride 112 H, Carbon Dioxide 21 L, Anion Gap 10.1, BUN 6 L D, Creatinine 1.00, Estimated Creat Clear 74, Estimated GFR 55 L, Est GFR ( Amer) 67, Glucose 79, Calcium 7.5 L, Magnesium 1.8 09/05/23 05:43: WBC 5.8, RBC 3.23 L, Hgb 8.9 L, Hct 28.8 L, MCV 89.2, MCH 27.5, MCHC 30.9 L, RDW 15.8, Plt Count 219, MPV 10.5 H, Neut % (Auto) 59.6, Lymph % (Auto) 25.3, [place] % (Auto) 5.9, Eos % (Auto) 8.9, Baso % (Auto) 0.3, Neut # (Auto) 3.5, Lymph # (Auto) 1.5, [place] # (Auto) 0.3, Eos # (Auto) 0.5 H, Baso # (Auto) 0.0, Sodium 142, Potassium 4.1, Chloride 111 H, Carbon Dioxide 27, Anion Gap 8.1, BUN 8 D, Creatinine 1.00, Estimated Creat Clear 74, Estimated GFR 55 L , Est GFR ( Amer) 67, Glucose 100 D, Calcium 7.3 L, Magnesium 1.6 D I & O for Last 24 hours: Intake & Output 03/10/25 03/11/25 03/12/25 03/13/25 23:59 23:59 23:59 23:59 Intake Total 195 / 195 Output Total 150 / 150 Balance 45 / 45 Weight 76.204 kg 82.871 kg Intake & Output 09/02/23 09/03/23 09/04/23 09/05/23 23:59 23:59 23:59 23:59 Intake Total 2382 / 2382 1639 / 1639 Output Total 0 / 0 0 / 0 100 / 100 0 / 0 Balance 0 / 0 2382 / 2382 1539 / 1539 0 / 0 Weight 76.657 kg 82.372 kg 85.502 kg 82.1 kg Constitutional Constitutional: no acute distress, obese and chronically ill appearing *Routine HEENT Exam Head: Present normocephalic Eye: Present EOMI and PERRL ENT: Present mucous membranes moist Comments: edentulous *Routine Neck Exam Neck: Present supple; Absent lymphadenopathy *Routine Respiratory Exam Respiratory: Present CTA bilaterally; Absent rhonchi, wheezes or crackles *Routine Cardiovascular Exam Cardiovascular: Present RRR *Routine Abdominal Exam Abdominal: Present soft and normoactive bowel sounds; Absent tenderness *Routine Extremities Exam Extremities: Absent cyanosis, clubbing or edema *Routine Skin Exam Skin: Present warm; Absent rash *Routine Neurological Exam Neurological: Present alert, oriented X3 and moving all extremities; Absent altered mental status Results Data Completed and Pending Labs on day of discharge: Labs from last 24 hours 03/13/25 03/13/25 03/13/25 06:42 02:48 01:30 WBC 7.3 RBC 3.57 L Hgb 10.2 L Hct 31.8 L MCV 89.1 MCH 28.6 MCHC 32.1 RDW 13.3 Plt Count 182 D MPV 12.9 H Neut % (Auto) 48.3 Lymph % (Auto) 36.1 [place] % (Auto) 9.5 H Eos % (Auto) 5.0 Baso % (Auto) 0.7 Neut # (Auto) 3.5 Lymph # (Auto) 2.7 [place] # (Auto) 0.7 Eos # (Auto) 0.4 Baso # (Auto) 0.1 ESR Sodium 141 Potassium 4.1 D Chloride 109 H Carbon Dioxide 28 Anion Gap 8.1 BUN 14 D Creatinine 1.10 H Estimated Creat Clear 63 Estimated GFR 49 L Est GFR ( Amer) 60 Glucose 89 Lactate 1.1 Calcium 9.0 Magnesium 1.6 Total Bilirubin 0.4 AST 36 ALT 22 Alkaline Phosphatase 62 Troponin I < 0.01 C-Reactive Protein Total Protein 6.4 Albumin 3.8 Globulin 2.6 Albumin/Globulin Ratio 1.5 Lipase Urine Color Yellow Urine Appearance Clear Urine pH 7.0 Ur Specific [place] 1.010 Urine Protein Negative Urine Glucose (UA) Negative Urine Ketones Negative Urine Blood Negative Urine Nitrate Negative Urine Bilirubin Negative Urine Urobilinogen 0.2 Ur Leukocyte Esterase Negative Urine WBC Occasional Ur Squamous Epith Cells 3-5 Urine Bacteria Trace 03/12/25 03/12/25 23:13 20:10 WBC 9.0 RBC 3.94 L Hgb 11.3 L Hct 34.6 L MCV 87.8 MCH 28.7 MCHC 32.7 RDW 13.2 Plt Count 271 MPV 11.9 H Neut % (Auto) 58.1 Lymph % (Auto) 27.7 [place] % (Auto) 9.6 H Eos % (Auto) 3.7 Baso % (Auto) 0.7 Neut # (Auto) 5.3 Lymph # (Auto) 2.5 [place] # (Auto) 0.9 Eos # (Auto) 0.3 Baso # (Auto) 0.1 ESR 21 Sodium 138 Potassium 3.4 L Chloride 105 Carbon Dioxide 28 Anion Gap 8.4 BUN 19 H Creatinine 1.00 Estimated Creat Clear 64 Estimated GFR 55 L Est GFR ( Amer) 67 Glucose 97 Lactate Calcium 9.5 Magnesium Total Bilirubin 0.3 AST 32 ALT 26 Alkaline Phosphatase 77 Troponin I < 0.01 < 0.01 C-Reactive Protein 3.3 Total Protein 7.8 D Albumin 3.9 Globulin 3.9 H Albumin/Globulin Ratio 1.0 L Lipase 215 Urine Color Urine Appearance Urine pH Ur Specific [place] Urine Protein Urine Glucose (UA) Urine Ketones Urine Blood Urine Nitrate Urine Bilirubin Urine Urobilinogen Ur Leukocyte Esterase Urine WBC Ur Squamous Epith Cells Urine Bacteria DS: Diagnosis Discharge Diagnosis (1) Atrial flutter: Status: Acute Code(s): I48.92 - Unspecified atrial flutter (2) Heart failure with preserved ejection fraction: Status: Acute Code(s): I50.30 - Unspecified diastolic (congestive) heart failure (3) Bleeding per rectum: Status: Acute Code(s): K62.5 - Hemorrhage of anus and rectum (4) Diarrhea: Status: Acute Code(s): R19.7 - Diarrhea, unspecified (5) Anemia: Status: Acute Code(s): D64.9 - Anemia, unspecified (6) Shakiness: Status: Acute Code(s): R25.1 - Tremor, unspecified (7) Anxiety: Status: Acute Code(s): F41.9 - Anxiety disorder, unspecified (8) Bradycardia: Status: Acute Code(s): R00.1 - Bradycardia, unspecified (9) Intermittent abdominal pain: Status: Acute Code(s): R10.9 - Unspecified abdominal pain Meds Home Medications and Allergies Home Medications ?Medication ?Instructions ?Recorded ?Confirmed ?Type aspirin 81 mg tablet,delayed 81 mg PO DAILY 09/27/24 0 03/12/25 History release (Adult Aspirin Regimen) Held on 03/13/25. Instructions: Until after colonoscopy albuterol sulfate 90 mcg/actuation 2 puff inhalation Q 4-6H PRN 12/03/24 03/12/25 Rx aerosol inhaler shortness of breath or wheez ing #18 grams fluticasone propionate 50 1 spray intranasal BID #16 g anatoliy 01/10/25 03/12/25 Rx mcg/actuation nasal spray,suspension (Allergy Relief (fluticasone)) alendronate 10 mg tablet 10 mg PO DAILY #30 tabs 02/1103/12/25 Rx diazepam 5 mg tablet 5 mg PO TID PRN anxiety #90 tabs 02/21/25 03/12/25 Rx escitalopram oxalate 10 mg tablet 10 mg PO DAILY 03/0303/12/25 History (Lexapro) furosemide 40 mg tablet 40 mg PO DAILY 30 days #30 t abs 03/03/25 03/12/25 Rx lisinopril 20 mg tablet 20 mg PO DAILY 03/03/25 07/ History oxybutynin chloride 5 mg tablet 5 mg PO DAILY 03/04/25 03/12/25 History pantoprazole 40 mg tablet,delayed 40 mg PO BID 30 days #60 tabs 03/06/25 03/12/25 Rx release propranolol 20 mg tablet 20 mg PO BID 03/10/25 History hydrocodone 5 mg-acetaminophen 325 1 tab PO Q4HP PRN M oderate Pain 03/13/25 Rx mg tablet (4-6) 3 days #9 tabs sodium,potassium,mag sulfates 17.5 See Rx Instructions PO .COMPLEX 03/13/25 Rx gram-3.13 gram-1.6 gram oral soln #354 mL (Suprep Bowel Prep Kit) New Prescriptions to Start Prescriptions: hydrocodone-acetaminophen Rosaura Cordero Allergies Allergy/AdvReac Type Severity Reaction Status Date / Time cephalexin (From Keflex) Allergy Severe Difficulty Verified 03/10/25 15:09 Breathing prochlorperazine Allergy Severe Swelling Verified 03/10/25 15:09 (PROCHLORPERAZINE) of Lip/Tongue/Throat codeine (CODEINE) Allergy Unknown VOMITING / Verified 03/10/25 15:09 NAUSEA prednisone (PREDNISONE) Allergy Unknown BP ISSUES Verified 03/10/25 15:09 promethazine (From PHENERGAN) Allergy Unknown Unknown Verified 03/10/25 15:09 allergy reaction metoclopramide (From Reglan) Allergy Nausea Verified 03/10/25 15:09 hydroxyzine (From Vistaril) AdvReac Hives Verified 03/10/25 15:09 Discharge Plan Disposition Patient Disposition: Home, Self-Care Condition: Fair Follow up Plan Follow up with: Charity Marie APRN [Nurse Practitioner, Cardiology] - 03/20/25 3:00 pm Colin Smith MD [Primary Care Provider, Family Practice] - 03/24/25 10:00 am Prescriptions/Medication Reconciliation: New hydrocodone-acetaminophen 5-325 mg Tablet 1 tab PO Q4HP PRN (Reason: Moderate Pain (4-6)) 3 Days Qty: 9 0RF Continued albuterol sulfate 90 mcg/actuation HFA aerosol inhaler 2 puff inhalation Q4-6H PRN (Reason: shortness of breath or wheezing) Qty: 18 2RF fluticasone propionate [Allergy Relief (fluticasone)] 50 mcg/actuation spray,suspension 1 spray intranasal BID Qty: 16 2RF Rx Instructions: administer into each nostril 2x/day furosemide 40 mg tablet 40 mg PO DAILY 30 Days Qty: 30 2RF diazepam 5 mg tablet 5 mg PO TID PRN (Reason: anxiety) Qty: 90 0RF Rx Instructions: ok to fill on February 24, 2025 propranolol 20 mg tablet 20 mg PO BID Patient Comments: TAKE ONE TABLET BY MOUTH TWICE DAILY alendronate 10 mg tablet 10 mg PO DAILY Qty: 30 2RF sodium,potassium,mag sulfates [Suprep Bowel Prep Kit] 17.5-3.13-1.6 gram recon soln See Rx Instructions PO .COMPLEX Qty: 354 0RF Rx Instructions: DILUTE; drink full amount early evening before AND next morning at least 4-5 hr before procedure; follow w 960 mL water PO escitalopram oxalate [Lexapro] 10 mg Tablet 10 mg PO DAILY lisinopril 20 mg tablet 20 mg PO DAILY oxybutynin chloride 5 mg tablet 5 mg PO DAILY pantoprazole 40 mg Tablet,Delayed Release (Dr/Ec) 40 mg PO BID 30 Days Qty: 60 0RF Held aspirin [Adult Aspirin Regimen] 81 mg tablet,delayed release (DR/EC) 81 mg PO DAILY Hold Instructions: Until after colonoscopy Problem Reconciliation Problems Reviewed?: Yes Patient Discharge Instructions ACTIVITY: Continue current activity DIET: continue same diet Additional Instructions: You are scheduled for a colonoscopy with Dr. Vizcarra on March 19 at 2:30 PM please report to the outpatient registration on the first floor near the [employer] shop to register. the day of the procedure you do have to have a electric train driver with you that can stay with you and drive you. Please stop your aspirin until after the procedure as instructed by your doctor. The bowel prep has been called into your pharmacy please read the instructions carefully and follow them for the procedure. If you have any questions please call the hospital and asked to speak with Dr. Vizcarra office. Patient Instructions: Anemia, Anxiety and Panic Attacks (Alternative Therapy) Print Language: Gabonese Providers Primary Care Provider: Colin Smith Admit Provider: Librado Hernandes Attending Provider: Librado Hernandes
--- NOTE | 2025-03-13 13:58 | PC.NURSE ---
Left chest port flushed, flushed with heparin and removed.
== END 2025-03-13 14:15 | disposition home or self-care (01) ==
LOC: ER 21:58 → 2ND 22:08
PROVIDERS: Admitting Provider Student in an Organized Health Care Education/Training Program; Emergency Provider Emergency Medicine; PCP Family Medicine; Visit Provider Student in an Organized Health Care Education/Training Program
DX: K62.5 Hemorrhage of anus and rectum (principal); R19.7 Diarrhea, unspecified; D64.9 Anemia, unspecified; R25.1 Tremor, unspecified; F41.9 Anxiety disorder, unspecified; R11.0 Nausea; R10.31 Right lower quadrant pain; R00.1 Bradycardia, unspecified; E66.9 Obesity, unspecified; I48.92 Unspecified atrial flutter; I13.0 Hypertensive heart and chronic kidney disease with heart failure and stage 1 through stage 4 chronic kidney disease, or unspecified chronic kidney disease; N18.9 Chronic kidney disease, unspecified; I48.0 Paroxysmal atrial fibrillation; F32.A Depression, unspecified; I50.31 Acute diastolic (congestive) heart failure; I44.0 Atrioventricular block, first degree; K21.9 Gastro-esophageal reflux disease without esophagitis; Z68.31 Body mass index [BMI] 31.0-31.9, adult; Z88.1 Allergy status to other antibiotic agents; Z88.8 Allergy status to other drugs, medicaments and biological substances; Z88.6 Allergy status to analgesic agent; Z87.19 Personal history of other diseases of the digestive system; Z79.899 Other long term (current) drug therapy
CPT/HCPCS: 36415; 74174; 80053; 81001; 83605; 83690; 83735; 84484; 85025; 85651; 86140; 93005; 93270; 93308; 96361; 96374; 96375; 96376; 99285; G0378; J0360; J1642; J2270; J2405; J2470; J7120; Q9967

== ENCOUNTER 2025-03-19 12:49 | Day surgery (SDC) | payer MEDICARE, OTHER, SELFPAY ==
--- NOTE | 2025-03-17 11:48 | SW/DCPLANNER ---
Phoned patient X 2. Was not able to leave messages due to mailbox being full. Cj Steven
--- NOTE | 2025-03-19 12:44 | EXP.HP ---
History of Present Illness *Admission Date: 03/19/25 *Reason for visit:: History of Crohn's disease *History of present illness: Mrs. Gonzalez is a 69-year-old female who is here for diagnostic colonoscopy secondary to a history of Crohn's disease with last colonoscopy over 10 years ago. She has intermittent lower abdominal pain and diarrhea. She also has had bright red rectal bleeding. She had mild elevation of her CRP at 6.6. The examination is deemed medically necessary for diagnostic colonoscopy. The patient has been seen, interviewed and examined prior to the procedure by both myself and the anesthesia provider. [facility] Disclaimer: The information contained in this section may have been updated after the patient was seen, as this information can be updated by other users. Medical History Dyspepsia Dysphagia Common bile duct dilation Abnormal findings on imaging of biliary tract Upper respiratory tract infection Recurrent acute otitis media of right ear Nausea & vomiting Continue the promethazine see above. Chest pain Near syncope Chronic abdominal pain Anxiety related tremor High globulin level Shakiness SOB (shortness of breath) Palpitations Bradycardia Screening for colon cancer Breast cancer screening by mammogram Mammogram done 10/2024 Crohn's disease Community acquired pneumonia Chronic kidney disease (HFpEF) heart failure with preserved ejection fraction Abnormal chest CT Schatzki's ring Sinus bradycardia Insomnia Depression Anxiety Osteoporosis Allergies History of anemia History of constipation Sphincter of Oddi dysfunction HTN (hypertension) Bilateral lower extremity edema Surgical History Lipoma of back Status post cholecystectomy H/O oral surgery History of appendectomy H/O total hysterectomy History of esophagogastroduodenoscopy (EGD) History of arthroscopy of right knee Status post knee surgery Status post right knee arthroscopy with partial medial meniscectomy date of surgery May 16, 2022 History of intestinal surgery Family History Other Cancer Heart attack Social History (Updated 03/19/25 @ 14:03 by Judy Agustin RN) Smoking Status: Never smoker second hand exposure: No alcohol intake: never substance use type: denies use current occupational status: disabled Travel in the last 8 weeks?: None household members: none housing: apartment number of children: 2 current occupational exposures/hazards: No caffeine: Yes Have you lived/traveled outside [place] in past 30 days?: No Contact w/someone who lives/traveled outside US past 30 days?: No Exposure to someone with infectious disease in past 14 days?: No Do you have a fever (greater than 100.4 F or 38 C)?: No Have you tested positive for COVID-19?: No Exposed to someone with COVID-19 in past 14 days?: No Do you have a sore throat?: No Do you have a cough?: No Do you have any weakness?: No Are you experiencing any nausea/vomitting?: No Do you have any diarrhea?: No Are you experiencing any unusual bleeding?: No Do you have any muscle aches/pain?: No Do you have any abdominal pain?: No Are you experiencing loss of taste or smell?: No Other Medical History Have you received the Flu Vaccine for this season: No Have you received the Pneumonia Vaccine: Yes Review of Systems Review of Systems Review of systems (narrative): Negative *Cardiovascular Comments: Negative *Gastrointestinal Comments: Negative *Genitourinary Comments: Negative *Musculoskeletal Comments: Negative *Neurologic Comments: Negative Meds Home Medications and Allergies Home Medications ?Medication ?Instructions ?Recorded ?Confirmed ?Type aspirin 81 mg tablet,delayed 81 mg PO DAILY 09/27/24 03/19/25 History release (Adult Aspirin Regimen) Held on 03/13/25. Instructions: Until after colonoscopy albuterol sulfate 90 mcg/actuation 2 puff inhalation Q4-6H PRN 12/03/24 03/19/25 Rx aerosol inhaler shortness of breath or wheezing #18 grams fluticasone propionate 50 1 spray intranasal BID #16 grams 01/10/25 03/19/25 Rx mcg/actuation nasal spray,suspension (Allergy Relief (fluticasone)) alendronate 10 mg tablet 10 mg PO DAILY #30 tabs 02/21/25 03/19/25 Rx diazepam 5 mg tablet 5 mg PO TID PRN anxiety #90 tabs 02/21/25 03/19/25 Rx escitalopram oxalate 10 mg tablet 10 mg PO DAILY 03/03/25 03/19/25 History (Lexapro) furosemide 40 mg tablet 40 mg PO DAILY 30 days #30 tabs 03/03/25 03/19/25 Rx lisinopril 20 mg tablet 20 mg PO DAILY 03/03/25 03/19/25 History oxybutynin chloride 5 mg tablet 5 mg PO DAILY 03/04/25 03/19/25 History pantoprazole 40 mg tablet,delayed 40 mg PO BID 30 days #60 tabs 03/06/25 03/19/25 Rx release propranolol 20 mg tablet 20 mg PO BID 03/10/25 03/19/25 History sodium,potassium,mag sulfates 17.5 See Rx Instructions PO .COMPLEX 03/13/25 03/19/25 Rx gram-3.13 gram-1.6 gram oral soln #354 mL (Suprep Bowel Prep Kit) ondansetron 4 mg disintegrating 4 mg PO Q6H PRN nausea and 03/18/25 03/19/25 Rx tablet vomiting #20 tabs New Prescriptions to Start Prescriptions: Allergies Allergy/AdvReac Type Severity Reaction Status Date / Time cephalexin (From Keflex) Allergy Severe Difficulty Verified 03/14/25 13:50 Breathing prochlorperazine Allergy Severe Swelling Verified 03/14/25 13:50 (PROCHLORPERAZINE) of Lip/Tongue/Throat codeine (CODEINE) Allergy Unknown VOMITING / Verified 03/14/25 13:50 NAUSEA prednisone (PREDNISONE) Allergy Unknown BP ISSUES Verified 03/14/25 13:50 promethazine (From PHENERGAN) Allergy Unknown Unknown Verified 03/14/25 13:50 allergy reaction metoclopramide (From Reglan) Allergy Nausea Verified 03/14/25 13:50 hydroxyzine (From Vistaril) AdvReac Hives Verified 03/14/25 13:50 Exam *Routine HEENT Exam Head: Present normocephalic Eye: Present EOMI and PERRL ENT: Present mucous membranes moist *Routine Neck Exam Neck: Present supple *Routine Respiratory Exam Respiratory: Present CTA bilaterally *Routine Cardiovascular Exam Cardiovascular: Present RRR *Routine Abdominal Exam Abdominal: Present soft and normoactive bowel sounds; Absent tenderness *Routine Rectal Exam Rectal:: deferred *Routine Genitalia Exam Genitalia:: deferred *Routine Extremities Exam Extremities: Absent cyanosis, clubbing or edema *Routine Skin Exam Skin: Present warm; Absent rash *Routine Neurological Exam Neurological: Present alert and oriented X3 Assessment and Plan *Assessment and plan (1) Intermittent abdominal pain: Status: Acute Category: Medical Code(s): R10.9 - Unspecified abdominal pain (2) Bleeding per rectum: Status: Acute Category: Medical Code(s): K62.5 - Hemorrhage of anus and rectum (3) History of Crohn's disease: Status: Acute Category: Medical Code(s): Z87.19 - Personal history of other diseases of the digestive system (4) Anemia: Status: Acute Category: Medical Code(s): D64.9 - Anemia, unspecified (5) Chronic diarrhea: Status: Acute Category: Medical Code(s): K52.9 - Noninfective gastroenteritis and colitis, unspecified Plan A/P: 1. Intermittent abdominal pain with intermittent blood and anemia is the preprocedural diagnosis. The patient does have chronic diarrhea. The patient does have a remote history of Crohn's disease and her last colonoscopy was more than 10 years ago. The patient will be anesthetized/sedated using MAC sedation. The patient has been seen and examined. Cardiac and lung assessment prior to the examination is stable. Proceed with planned diagnostic colonoscopy.
[2025-03-19 14:00] VITALS: BP 148/69; PULSE 45; RESP 18; TEMP 36.9; O2SAT 99; BMI 28.8
[2025-03-19] MEDS: LACTATED RINGERS 1000ML 1,000 ML 50 ML IV (14:15)
--- NOTE | 2025-03-19 14:23 | P.PNANES_ITS ---
[facility] Disclaimer: The information contained in this section may have been updated after the patient was seen, as this information can be updated by other users. Medical History Dyspepsia Dysphagia Common bile duct dilation Abnormal findings on imaging of biliary tract Upper respiratory tract infection Recurrent acute otitis media of right ear Nausea & vomiting Continue the promethazine see above. Chest pain Near syncope Chronic abdominal pain Anxiety related tremor High globulin level Shakiness SOB (shortness of breath) Palpitations Bradycardia Screening for colon cancer Breast cancer screening by mammogram Mammogram done 10/2024 Crohn's disease Community acquired pneumonia Chronic kidney disease (HFpEF) heart failure with preserved ejection fraction Abnormal chest CT Schatzki's ring Sinus bradycardia Insomnia Depression Anxiety Osteoporosis Allergies History of anemia History of constipation Sphincter of Oddi dysfunction HTN (hypertension) Bilateral lower extremity edema Surgical History Lipoma of back Status post cholecystectomy H/O oral surgery History of appendectomy H/O total hysterectomy History of esophagogastroduodenoscopy (EGD) History of arthroscopy of right knee Status post knee surgery Status post right knee arthroscopy with partial medial meniscectomy date of surgery May 16, 2022 History of intestinal surgery Family History Other Cancer Heart attack Social History (Updated 03/19/25 @ 14:03 by Judy Agustin RN) Smoking Status: Never smoker second hand exposure: No alcohol intake: never substance use type: denies use current occupational status: disabled Travel in the last 8 weeks?: None household members: none housing: apartment number of children: 2 current occupational exposures/hazards: No caffeine: Yes Have you lived/traveled outside [place] in past 30 days?: No Contact w/someone who lives/traveled outside US past 30 days?: No Exposure to someone with infectious disease in past 14 days?: No Do you have a fever (greater than 100.4 F or 38 C)?: No Have you tested positive for COVID-19?: No Exposed to someone with COVID-19 in past 14 days?: No Do you have a sore throat?: No Do you have a cough?: No Do you have any weakness?: No Are you experiencing any nausea/vomitting?: No Do you have any diarrhea?: No Are you experiencing any unusual bleeding?: No Do you have any muscle aches/pain?: No Do you have any abdominal pain?: No Are you experiencing loss of taste or smell?: No [facility] Anesthesia Checklist Patient Identification Patient Identification: Arm Band Structural Data Admitted From: Home Planned Operative Procedure/s: Colonoscopy Consent for Planned Operative Procedure(s) Verified: Yes Verified Documents: Surgical Consent and History and Physical NPO Status Verified Time NPO: 11:00 (finished prep) Additional verifications Anesthesia Reactions: No Hx Blood Transfusions: Yes Blood Transfusion Reaction: No Airway Assessment Mallampati Score:: Class II C-Spine Mobility Assessed: Yes TMJ Mobility Assessed: Yes Dentition: Edentulous Neurological Assessment Level of Consciousness: Awake, Alert and Appropriate Anesthesia Plan Anesthesia Risk discussed: Yes Anesthesia Plan: Verified ASA Class: III Anesthesia Type: MAC
--- NOTE | 2025-03-19 15:06 | HMH.PROCNOTE ---
[facility] Procedure Note Date: 03/19/25 Time: 15:27 Procedure Note:: Colonoscopy Procedure Report: Colonoscopy with cold biopsies and monopolar ablation/coagulation of internal hemorrhoids Endoscopist: Rasheed Vizcarra II, MD Referring physician: Colin Smith MD Date of Procedure: March 19, 2025 Equipment: SpineVision [id number] adult colonoscope Sedation: MAC sedation Indication: Mrs. Gonzalez is a 69-year-old female who is here for diagnostic colonoscopy. She does have a complex digestive history. 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 She does have a remote history of Crohn's disease. Her last colonoscopy was 20 years ago. Over the last week, she has some bright red rectal bleeding and does note spotting of blood on the toilet tissue more regularly. She does get cramps in the lower abdomen that can radiate into the back. She reports no weight loss. She does have a history of sphincter of Oddi dysfunction. A recent CAT scan had shown a dilated biliary tree. She had a repeat ERCP with dc on 03/05/2025 that showed some mild ampullary stenosis and had extension of biliary sphincterotomy with balloon sweep. She reports no weight loss or family history of colon cancer. She recently had a mildly elevated CRP at 6.6. Procedure: Prior to the procedure, a history and physical exam was performed, and patient's medications and allergies were reviewed. The risks, benefits and alternatives of the sedation and procedure were discussed with the patient. All questions were answered and informed consent was obtained. The patient was brought to the procedure room. Patient identification and proposed procedure were verified by the physician and the nurse. The patient was placed in a left lateral decubitus position and the scope was passed under direct vision. Throughout the procedure, the patient's blood pressure, pulse, and oxygen saturations were monitored continuously. The colonoscopy was accomplished without difficulty. The patient tolerated the procedure well. Findings: On digital rectal examination there was normal rectal tone. There were no external hemorrhoids. The colonoscope was introduced through the anal canal to the rectum and advanced to the cecum. The ileocecal valve and appendiceal orifice were identified. The scope was advanced a short distance into the ileum which appeared grossly normal. The scope was then withdrawn into the colon. The cecum, ascending, transverse, descending, sigmoid and rectum were grossly normal. There were no polyps, diverticula or other mucosal abnormalities identified. Cold biopsies were taken from the right colon to rule out microscopic colitis. Upon retroflexion within the rectum there were grade 2 internal hemorrhoids. 3 columns of hemorrhoids were ablated/coagulated using monopolar ablation. The preparation was good throughout with Walton Preparation Score of 8 out of 9. The cecal time was 12 minutes. Impression: 1. Normal colonoscopy with intubation of the terminal ileum 2. Grade 2 internal hemorrhoids status post monopolar ablation/coagulation Plan: I will follow-up the biopsies to rule out microscopic colitis. We will discuss additional treatment options for her diarrhea and IBS.
[2025-03-19 15:30] VITALS: BP 108/62; PULSE 49; RESP 16; TEMP 36.1; O2SAT 94
[2025-03-19 15:40] VITALS: BP 123/60; PULSE 55; RESP 16; O2SAT 94
[2025-03-19 15:50] VITALS: BP 121/68; PULSE 55; O2SAT 98
[2025-03-19 16:00] VITALS: BP 140/72; PULSE 54; RESP 18; O2SAT 98
== END 2025-03-19 16:15 | disposition home or self-care (01) ==
PROVIDERS: PCP Family Medicine; Visit Provider Internal Medicine Gastroenterology
PROC: 0DJD8ZZ Inspection of Lower Intestinal Tract, Via Natural or Artificial Opening Endoscopic (ICD-10-PCS; CPT 45378; principal; 2025-03-19 14:30)
DX: K64.1 Second degree hemorrhoids (principal); K50.90 Crohn's disease, unspecified, without complications; I11.0 Hypertensive heart disease with heart failure; I50.30 Unspecified diastolic (congestive) heart failure; Z88.5 Allergy status to narcotic agent; Z88.8 Allergy status to other drugs, medicaments and biological substances; Z88.6 Allergy status to analgesic agent; Z79.82 Long term (current) use of aspirin; Z79.899 Other long term (current) drug therapy
CPT/HCPCS: 45380; 45388; J1596; J2003; J2704; J7120

== ENCOUNTER 2025-03-24 11:33 | Outpatient (CLI) | payer MEDICARE, OTHER, SELFPAY ==
--- OUTSIDE RECORDS SUMMARY | 2025-03-24 11:35 | XMS_ITS | Clinical Summary ---
Author Organization Healthcare Address [address] [place] [address] Care Team Providers Care Operating Room Assistant Name Role Phone Reuben Fong MD Primary Care Provider [phone] Social History Tobacco Use Types Packs/Day Years [...] (2 of 2 - PCV) 01/03/2019 01/03/2018 [id number] Vaccine (2 - season) 2024 11/18/2020 [facility]-Influenza [...] Insurance [employer] Care Teams Operating Room Assistant Relationship Specialty Start Date End Date Reuben Fong MD [address] [place] [address] [place] [id number] PCP - General 12/25/20
--- OUTSIDE RECORDS SUMMARY | 2025-03-24 11:36 | XMS_ITS | Clinical Summary ---
Author Organization [facility] Address [address] [place] [id number] Care Team Providers Care Soft Water Mechanic Name Role Phone Unavailable Primary Care Provider [...] therelease of HIV test results or diagnoses. [id number] Social History Tobacco Use Types Packs/Day Years Used Date Smoking Tobacco: Never Assessed Comments Unknown Sex and Gender Information Value Date Recorded Sex Assigned at Not on file Legal Sex Female 10:53 PM EST Gender Identity Not on file Sexual Orientation Not on file Plan of Treatment Not on file
[2025-03-24 12:08] LABS: Hematocrit 33.2 % (37.0-47.0); Hemoglobin 10.9 g/dL (12.2-16.2); Immature Granulocytes % 0.3 %; Mean Corpuscular HGB Conc 32.8 g/dL (31.8-35.4); Mean Corpuscular Hemoglobin 28.7 pg (27.0-31.2); Mean Corpuscular Volume 87.4 fl (81-99); Nucleated Red Blood Cells % 0 %; Platelet Count 253 K/mm3 (142-424); Red Blood Count 3.80 M/mm3 (4.20-5.40); Red Cell Distribution Width-SD 42.1 fL; White Blood Count 6.5 K/mm3 (4.8-10.8)
[2025-03-24] MEDS: SODIUM CHLORIDE 0.9% 10ML FLUSH SYRINGE 10 ML IV (12:12)
[2025-03-24 12:16] LABS: Albumin Level 4.5 g/dl (3.5-5.0); Chloride 107 mmol/L (98-107); Sodium 142 mmol/L (136-145)
[2025-03-24 12:17] LABS: Potassium 3.8 mmoL/L (3.5-5.1)
[2025-03-24 12:19] LABS: Alanine Aminotransferase 20 U/L (12-78); Anion Gap 12.8 mEq/L (5-15); Aspartate Amino Transferase 31 U/L (14-36); Blood Urea Nitrogen 13 mg/dl (7-17); Carbon Dioxide 26 mmol/L (22.0-30.0); Creatinine,Serum 0.80 mg/dl (0.52-1.04); Estimated Glomerular Filt Rate 71 ml/min (>60); GFR (African American) 86 ML/MIN (>60)
[2025-03-24 12:20] LABS: Albumin/Globulin Ratio 1.5 (1.1-1.8); Alkaline Phosphatase 74 U/L (38-126); Bilirubin,Total 0.7 mg/dl (0.2-1.3); Calcium 8.9 mg/dl (8.4-10.2); Globulin 3.0 g/dL (1.3-3.2); Glucose 104 mg/dl (74-100); Total Protein,Serum 7.5 g/dl (6.3-8.2)
== END 2025-03-24 12:14 | disposition home or self-care (01) ==
LOC: LAB 11:34 → INF 11:35
PROVIDERS: PCP Family Medicine; Visit Provider Family Medicine
DX: R10.9 Unspecified abdominal pain (principal); R11.2 Nausea with vomiting, unspecified
CPT/HCPCS: 36591; 80053; 85025; J1642

== ENCOUNTER 2025-04-01 11:41 | Emergency (ER) | payer MEDICARE, OTHER, SELFPAY ==
[2025-04-01] VITALS (14 sets, daily range): BP systolic 141–190; BP diastolic 71–128; PULSE 41–66; RESP 11–20; TEMP 36.7; O2SAT 95–99; BMI 28.3
--- OUTSIDE RECORDS SUMMARY | 2025-04-01 12:12 | XMS_ITS | Clinical Summary ---
Author Organization Healthcare Address [address] [place] [address] Care Team Providers Care Rn Recovery Name Role Phone Reuben Fong MD Primary Care Provider [phone] Social History Tobacco Use Types Packs/Day Years [...] (2 of 2 - PCV) 01/03/2019 01/03/2018 [id number] Vaccine (2 - season) 2024 11/18/2020 [facility]-Influenza [...] Insurance [employer] Care Teams Rn Recovery Relationship Specialty Start Date End Date Reuben Fong MD [address] [place] [address] [place] [id number] PCP - General 12/25/20
--- OUTSIDE RECORDS SUMMARY | 2025-04-01 12:12 | XMS_ITS | Clinical Summary ---
Author Organization [facility] Address [address] [place] [id number] Care Team Providers Care Herbarium Worker Name Role Phone Unavailable Primary Care Provider [...] therelease of HIV test results or diagnoses. [id number] Social History Tobacco Use Types Packs/Day Years Used Date Smoking Tobacco: Never Assessed Comments Unknown Sex and Gender Information Value Date Recorded Sex Assigned at Not on file Legal Sex Female 10:53 PM EST Gender Identity Not on file Sexual Orientation Not on file Plan of Treatment Not on file
--- NOTE | 2025-04-01 12:23 | ED_ITS ---
Discharge Plan Disposition Patient Disposition: Home, Self-Care Prescriptions Prescriptions: No Action escitalopram oxalate [Lexapro] 20 mg tablet 20 mg PO DAILY Qty: 30 2RF aspirin [Adult Aspirin Regimen] 81 mg tablet,delayed release (DR/EC) 81 mg PO DAILY albuterol sulfate 90 mcg/actuation HFA aerosol inhaler 2 puff inhalation Q4-6H PRN (Reason: shortness of breath or wheezing) Qty: 18 2RF fluticasone propionate [Allergy Relief (fluticasone)] 50 mcg/actuation spray,suspension 1 spray intranasal BID Qty: 16 2RF Rx Instructions: administer into each nostril 2x/day furosemide 40 mg tablet 40 mg PO DAILY 30 Days Qty: 30 2RF propranolol 20 mg tablet 20 mg PO BID Patient Comments: TAKE ONE TABLET BY MOUTH TWICE DAILY ondansetron 4 mg tablet,disintegrating 4 mg PO Q6H PRN (Reason: nausea and vomiting) Qty: 20 0RF alendronate 10 mg tablet 10 mg PO DAILY Qty: 30 2RF diazepam 5 mg tablet 5 mg PO TID PRN (Reason: anxiety) Qty: 90 0RF Rx Instructions: ok to fill on February 24, 2025 dicyclomine 10 mg capsule 10 mg PO TID Qty: 90 12RF Rx Instructions: Please take 1 capsule by mouth 3 times daily before meals lisinopril 20 mg tablet 20 mg PO DAILY oxybutynin chloride 5 mg tablet 5 mg PO DAILY pantoprazole 40 mg Tablet,Delayed Release (Dr/Ec) 40 mg PO BID 30 Days Qty: 60 0RF Referrals Follow up/Referrals: Vanessa Farrell APRN [Nurse Practitioner, Behavioral Health] - See instructions Colin Smith MD [Primary Care Provider, Family Practice] - See instructions Activity Restrictions/Add. Instructions Additional Instructions/Restrictions: Follow-up with your clinical psychologist licensed for your symptoms. If you develop any new or worsening symptoms, or if you become concerned for your health for any reason, return to the emergency department for evaluation Clinical Impressions Clinical Impression: Abdominal pain Instructions Patient Instructions: DI for Acute Abdominal Pain Print Language Print Language: Lebanese Discharge ED Provider: Dallas Valles [facility] Adult HPI <Gissell Blackwell (ED), CABLE OPERATOR - Last Filed: 04/01/25 19:20> General Chief complaint: Abdominal Pain Stated complaint: pain in stomach,vomitting and diarrhea Time Seen by Provider: 04/01/25 12:08 Mode of Arrival: Ambulatory Source of Information: Patient Description of Symptoms (Recalled from ER Triage Doc. by RN): pt is here for belly pain and panic attacks and was scoped last week and dx with ibs and diarrhea, pt is tearful upon triage History of Present Illness HPI narrative: 69-year-old female presents to the ED today for complaint of low abdominal pain, nausea, vomiting and diarrhea. She says that she has been having panic attacks as well. She says that she had a scope last week with Dr. Vizcarra that was diagnosed with IBS with diarrhea. She has been very upset and crying. She says she has been very anxious and has been taking her Valium at home. This has not been helping a lot. She says she is dealing with a lot of family issues that she cannot deal with. Patient says her chest hurts when she panics. She also says her heart goes out of rhythm when this happens as well. She says her blood pressure also gets high when she has panic attacks. Patient says she has been laying at home having vomiting and diarrhea for 2 to 3 days. Denies any fevers or chills. Related Data Home Medications ?Medication ?Instructions ?Recorded ?Confirmed aspirin 81 mg tablet,delayed 81 mg PO DAILY 09/27/24 0 03/24/25 release (Adult Aspirin Regimen) lisinopril 20 mg tablet 20 mg PO DAILY 03/03/2503/14 oxybutynin chloride 5 mg tablet 5 mg PO DAILY 03/04/25 03/24/25 propranolol 20 mg tablet 20 mg PO BID 03/10/25 Previous Rx's ?Medication ?Instructions ?Recorded albuterol sulfate 90 mcg/actuation 2 puff inhalation Q 4-6H PRN 12/03/24 aerosol inhaler shortness of breath or wheez ing #18 grams fluticasone propionate 50 1 spray intranasal BID #16 g anatoliy 01/10/25 mcg/actuation nasal spray,suspension (Allergy Relief (fluticasone)) alendronate 10 mg tablet 10 mg PO DAILY #30 tabs 02/11 09/07 furosemide 40 mg tablet 40 mg PO DAILY 30 days #30 t abs 03/03/25 pantoprazole 40 mg tablet,delayed 40 mg PO BID 30 days #60 tabs 03/06/25 release escitalopram oxalate 20 mg tablet 20 mg PO DAILY #30 t abs 03/21/25 (Lexapro) ondansetron 4 mg disintegrating 4 mg PO Q6H PRN nausea and 03/24/25 tablet vomiting #20 tabs diazepam 5 mg tablet 5 mg PO TID PRN anxiety #90 tabs 03/26/25 dicyclomine 10 mg capsule 10 mg PO TID #90 caps Allergies Allergy/AdvReac Type Severity Reaction Status Date / Time cephalexin (From Keflex) Allergy Severe Difficulty Verified 03/24/25 10:18 Breathing prochlorperazine Allergy Severe Swelling Verified 03/24/25 10:18 (PROCHLORPERAZINE) of Lip/Tongue/Throat codeine (CODEINE) Allergy Unknown VOMITING / Verified 03/24/25 10:18 NAUSEA prednisone (PREDNISONE) Allergy Unknown BP ISSUES Verified 03/24/25 10:18 promethazine (From PHENERGAN) Allergy Unknown Unknown Verified 03/24/25 10:18 allergy reaction metoclopramide (From Reglan) Allergy Nausea Verified 03/24/25 10:18 hydroxyzine (From Vistaril) AdvReac Hives Verified 03/24/25 10:18 PFSH <Gissell Blackwell (ED), CABLE OPERATOR - Last Filed: 04/01/25 19:20> PFS Disclaimer: The information contained in this section may have been updated after the patient was seen, as this information can be updated by other users. Medical History Dyspepsia Dysphagia Common bile duct dilation Abnormal findings on imaging of biliary tract Upper respiratory tract infection Recurrent acute otitis media of right ear Nausea & vomiting Continue the promethazine see above. Chest pain Near syncope Chronic abdominal pain Anxiety related tremor High globulin level Shakiness SOB (shortness of breath) Palpitations Bradycardia Screening for colon cancer Breast cancer screening by mammogram Mammogram done 10/2024 Crohn's disease Community acquired pneumonia Chronic kidney disease (HFpEF) heart failure with preserved ejection fraction Abnormal chest CT Schatzki's ring Sinus bradycardia Insomnia Depression Anxiety Osteoporosis Allergies History of anemia History of constipation Sphincter of Oddi dysfunction HTN (hypertension) Bilateral lower extremity edema Surgical History Lipoma of back Status post cholecystectomy H/O oral surgery History of appendectomy H/O total hysterectomy History of esophagogastroduodenoscopy (EGD) History of arthroscopy of right knee Status post knee surgery Status post right knee arthroscopy with partial medial meniscectomy date of surgery May 16, 2022 History of intestinal surgery Family History Other Cancer Heart attack Social History Smoking Status: Never smoker second hand exposure: No alcohol intake: never substance use type: denies use current occupational status: disabled Travel in the last 8 weeks?: None household members: none housing: apartment number of children: 2 current occupational exposures/hazards: No caffeine: Yes Have you lived/traveled outside [place] in past 30 days?: No Contact w/someone who lives/traveled outside US past 30 days?: No Exposure to someone with infectious disease in past 14 days?: No Do you have a fever (greater than 100.4 F or 38 C)?: No Have you tested positive for COVID-19?: No Exposed to someone with COVID-19 in past 14 days?: No Do you have a sore throat?: No Do you have a cough?: No Do you have any weakness?: No Do you have any diarrhea?: No Are you experiencing any unusual bleeding?: No Do you have any muscle aches/pain?: No Do you have any abdominal pain?: No Are you experiencing loss of taste or smell?: No Other Medical History Have you received the Flu Vaccine for this season: No Have you received the Pneumonia Vaccine: Yes <Gissell Blackwell (ED), CABLE OPERATOR - Last Filed: 04/01/25 19:20> ROS Obtained: Yes Systems reviewed as appropriate & no additional complaints except as documented Constitutional Constitutional: Reports as per HPI Physical Exam <Gissell Blackwell (ED), CABLE OPERATOR - Last Filed: 04/01/25 19:20> General General appearance: alert and anxious Head Head exam: normocephalic Eye Eye exam: Present PERRL and EOMI ENT ENT exam: Present normal oropharynx and mucous membranes moist Neck Neck exam: Present full ROM and trachea midline Respiratory Respiratory exam: Present normal lung sounds bilaterally Cardiovascular Cardiovascular exam: Present regular rate, normal rhythm, normal heart sounds, +S1 and +S2 Abdominal Exam Abdominal exam: Present soft and normal bowel sounds Abdominal tenderness: Present diffuse Extremities Exam Extremities exam: Present full ROM and normal capillary refill Neurological Exam Neurological exam: Present alert, oriented X3 and normal gait Skin Skin exam: Present warm, dry and intact Medical Decision Making <Gissell Blackwell (ED), CABLE OPERATOR - Last Filed: 04/01/25 19:20> Medical Records Screening: Per USPSTF and CDC recommendations, given the prevalence of disease in our region, it is our hospital?s policy to screen for HIV and viral Hepatitis for all patients aged 18 and over and those with ongoing risk factors. Grant Inquiry Pt receiving controlled substance: No Vital Signs: 04/01/25 12:13 04/01/25 12:30 04/01/25 13:01 Temperature 98.1 F Temperature Source Oral Pulse Rate 45 L 42 L Pulse Rate [Left Radial] 50 L Respiratory Rate 20 11 L Blood Pressure 169/88 H 155/71 H Blood Pressure [Right Radial Artery] 170/100 H Blood Pressure Mean [Right Radial Artery] 123 02 Sat by Pulse Oximetry 95 97 99 Oxygen Delivery Method Room Air Room Air 04/01/25 13:30 04/01/25 14:19 04/01/25 14:30 Temperature Temperature Source Pulse Rate 42 L 43 L 46 L Pulse Rate [Left Radial] Respiratory Rate 11 L 13 15 Blood Pressure 166/71 H 167/128 H 165/88 H Blood Pressure [Right Radial Artery] Blood Pressure Mean [Right Radial Artery] 02 Sat by Pulse Oximetry 96 99 98 Oxygen Delivery Method 04/01/25 15:01 04/01/25 15:31 04/01/25 16:00 Temperature Temperature Source Pulse Rate 46 L 44 L 66 Pulse Rate [Left Radial] Respiratory Rate 15 14 14 Blood Pressure 157/76 H 141/97 H 162/78 H Blood Pressure [Right Radial Artery] Blood Pressure Mean [Right Radial Artery] 02 Sat by Pulse Oximetry 97 99 98 Oxygen Delivery Method Room Air 04/01/25 16:31 04/01/25 17:01 04/01/25 17:31 Temperature Temperature Source Pulse Rate 42 L 45 L 41 L Pulse Rate [Left Radial] Respiratory Rate 15 11 L 12 Blood Pressure 144/72 H 154/87 H 185/85 H Blood Pressure [Right Radial Artery] Blood Pressure Mean [Right Radial Artery] 02 Sat by Pulse Oximetry 97 97 98 Oxygen Delivery Method Room Air 04/01/25 18:00 04/01/25 20:07 Temperature 98.1 F Temperature Source Pulse Rate 41 L Pulse Rate [Left Radial] Respiratory Rate 15 20 Blood Pressure 169/82 H 190/96 H Blood Pressure [Right Radial Artery] Blood Pressure Mean [Right Radial Artery] 02 Sat by Pulse Oximetry Oxygen Delivery Method Room Air Lab Data Lab Results 04/01/25 13:00: WBC 5.6, RBC 3.54 L, Hgb 10.1 L, Hct 31.1 L, MCV 87.9, MCH 28.5, MCHC 32.5, RDW 13.8, Plt Count 189, MPV 12.8 H, Neut % (Auto) 55.2, Lymph % (Auto) 30.1, [place] % (Auto) 8.5, Eos % (Auto) 5.3, Baso % (Auto) 0.7, Neut # (Auto) 3.1, Lymph # (Auto) 1.7, [place] # (Auto) 0.5, Eos # (Auto) 0.3, Baso # (Auto) 0.0, ESR 16, Sodium 143, Potassium 3.4 L, Chloride 111 H, Carbon Dioxide 28, Anion Gap 7.4, BUN 15, Creatinine 0.90, Estimated Creat Clear 65, Estimated GFR 62, Est GFR ( Amer) 75, Glucose 93, Calcium 8.3 L, Magnesium 1.4 L, Total Bilirubin 0.6, AST 24, ALT 13, Alkaline Phosphatase 50, Troponin I < 0.01, C-Reactive Protein 1.4, Total Protein 6.3, Albumin 3.8, Globulin 2.5, Albumin/Globulin Ratio 1.5, Lipase 124 04/01/25 14:03: Urine Color Yellow, Urine Appearance Clear, Urine pH 7.0, Ur Specific [place] 1.015, Urine Protein Negative, Urine Glucose (UA) Negative, Urine Ketones Negative, Urine Blood Negative, Urine Nitrate Negative, Urine Bilirubin Negative, Urine Urobilinogen 0.2, Ur Leukocyte Esterase Negative, Urine RBC None, Urine WBC Occasional, Ur Squamous Epith Cells 3-5, Urine Bacteria Trace 04/01/25 15:21: Troponin I < 0.01 04/01/25 13:00 04/01/25 13:00 Orders (Tests/Meds): ED MEDICATIONS Discontinued Medications Generic Name Dose Route Start Last Admin Trade Name Frejose PRN Reason Stop Dose Admin Hydrocodone Bitart/Acetaminophen 2 tab 04/01/25 17:04 04/01/25 17:21 Hydrocodone/Apap 5/325 Mg Tablet PO 04/01/25 17:05 2 tab ONCE ONE Administration Diazepam 5 mg 04/01/25 12:20 04/01/25 13:27 Diazepam 10mg/2ml Syringe IV 04/01/25 12:21 5 mg ONCE ONE Administration Dicyclomine HCl 20 mg 04/01/25 12:20 04/01/25 13:27 Dicyclomine 10mg Capsule PO 04/01/25 12:21 20 mg ONCE ONE Administration Famotidine 20 mg 04/01/25 12:20 04/01/25 13:27 Famotidine 20mg/2ml Vial IV 04/01/25 12:21 20 mg ONCE ONE Administration Sodium Chloride 1,000 mls @ 999 mls/hr 04/01/25 12:20 04/01/25 16:03 Sod Chlor 0.9% 1000ml Bag IV 04/01/25 13:20 Infused .Q1H1M ONE Infusion Magnesium Sulfate 2 gm in 50 mls @ 50 mls/hr 04/01/25 13:26 04/01/25 15:00 Magnesium Sulfate 2gm/50ml Premix IV 04/01/25 14:25 Infused ONCE ONE Infusion Ketorolac Tromethamine 30 mg 04/01/25 17:04 04/01/25 17:20 Ketorolac 30mg/Ml Vial IV 04/01/25 17:05 30 mg ONCE ONE Administration Ondansetron HCl 4 mg 04/01/25 17:04 04/01/25 17:20 Ondansetron 4mg/2ml Vial IV 04/01/25 17:05 4 mg ONCE ONE Administration Potassium Chloride 60 meq 04/01/25 13:26 04/01/25 13:52 Potassium Chloride 20meq Tab PO 04/01/25 13:27 60 meq ONCE ONE Administration Sodium Chloride 8 ml 04/01/25 12:20 Sodium Chloride 0.9% 10ml Vial IV 05/01/25 12:19 NEEDED PRN dilute pepcid ORDERS Category Date Time Status CT abdomen pelvis wo con Stat Cat Scan 04/01/25 18:20 Completed Consult to Behavioral Health [CONS] Routine Cons 04/01/25 17:30 Active CBC [Complete Blood Count Auto Diff] Stat Lab 04/01/25 13:00 Completed CRP [C-Reactive Protein] Stat Lab 04/01/25 13:00 Completed Comprehensive Metabolic Panel Stat Lab 04/01/25 13:00 Completed Erythrocyte Sedimentation Rate Stat Lab 04/01/25 13:00 Completed Lipase Stat Lab 04/01/25 13:00 Completed Magnesium Stat Lab 04/01/25 13:00 Completed Trop I [Troponin I] Stat Lab 04/01/25 13:00 Completed Troponin I Q3H Lab 04/01/25 15:21 Completed Urinalysis and Microscopic Stat Lab 04/01/25 14:03 Completed Medical Decision Narrative: patient is a 69-year-old female presenting to the emergency department for evaluation of panic attacks, lower abdominal pain, nausea and vomiting. Patient is hemodynamically stable and nontoxic-appearing upon arrival, afebrile. Differential diagnosis includes viral illness, IBS, panic attacks, among others. Workup will be conducted with hematologic labs, specific imaging. Initial inventions include crystalloid bolus, analgesics. Initial workup reviewed by me hematologic labs are remarkable for normal white count, potassium 3.4 which was replaced here in the ED. Low mag which was also replaced in the ED. I was not going to do a CT scan since she had a recent CT at the end of February and a recent scope. However as the ER visit went on she continued to complain of abdominal pain even after pain medication was given. The pain medication did improve the pain but patient continues to complain of pain so would have to scan without contrast as she does not want to be stuck and we can only use her port. Patient is very anxious despite giving her Valium. Will await results. She says she did call Dr. Vizcarra today and he told her to come to the ER. She could not make it to the office. <Haris Santiago, - Last Filed: 04/03/25 10:20> Vital Signs: 04/01/25 12:13 04/01/25 12:30 04/01/25 13:01 Temperature 98.1 F Temperature Source Oral Pulse Rate 45 L 42 L Pulse Rate [Left Radial] 50 L Respiratory Rate 20 11 L Blood Pressure 169/88 H 155/71 H Blood Pressure [Right Radial Artery] 170/100 H Blood Pressure Mean [Right Radial Artery] 123 02 Sat by Pulse Oximetry 95 97 99 Oxygen Delivery Method Room Air Room Air 04/01/25 13:30 04/01/25 14:19 04/01/25 14:30 Temperature Temperature Source Pulse Rate 42 L 43 L 46 L Pulse Rate [Left Radial] Respiratory Rate 11 L 13 15 Blood Pressure 166/71 H 167/128 H 165/88 H Blood Pressure [Right Radial Artery] Blood Pressure Mean [Right Radial Artery] 02 Sat by Pulse Oximetry 96 99 98 Oxygen Delivery Method 04/01/25 15:01 04/01/25 15:31 04/01/25 16:00 Temperature Temperature Source Pulse Rate 46 L 44 L 66 Pulse Rate [Left Radial] Respiratory Rate 15 14 14 Blood Pressure 157/76 H 141/97 H 162/78 H Blood Pressure [Right Radial Artery] Blood Pressure Mean [Right Radial Artery] 02 Sat by Pulse Oximetry 97 99 98 Oxygen Delivery Method Room Air 04/01/25 16:31 04/01/25 17:01 04/01/25 17:31 Temperature Temperature Source Pulse Rate 42 L 45 L 41 L Pulse Rate [Left Radial] Respiratory Rate 15 11 L 12 Blood Pressure 144/72 H 154/87 H 185/85 H Blood Pressure [Right Radial Artery] Blood Pressure Mean [Right Radial Artery] 02 Sat by Pulse Oximetry 97 97 98 Oxygen Delivery Method Room Air 04/01/25 18:00 04/01/25 20:07 Temperature 98.1 F Temperature Source Pulse Rate 41 L Pulse Rate [Left Radial] Respiratory Rate 15 20 Blood Pressure 169/82 H 190/96 H Blood Pressure [Right Radial Artery] Blood Pressure Mean [Right Radial Artery] 02 Sat by Pulse Oximetry Oxygen Delivery Method Room Air Lab Data Lab Results 04/01/25 13:00: WBC 5.6, RBC 3.54 L, Hgb 10.1 L, Hct 31.1 L, MCV 87.9, MCH 28.5, MCHC 32.5, RDW 13.8, Plt Count 189, MPV 12.8 H, Neut % (Auto) 55.2, Lymph % (Auto) 30.1, [place] % (Auto) 8.5, Eos % (Auto) 5.3, Baso % (Auto) 0.7, Neut # (Auto) 3.1, Lymph # (Auto) 1.7, [place] # (Auto) 0.5, Eos # (Auto) 0.3, Baso # (Auto) 0.0, ESR 16, Sodium 143, Potassium 3.4 L, Chloride 111 H, Carbon Dioxide 28, Anion Gap 7.4, BUN 15, Creatinine 0.90, Estimated Creat Clear 65, Estimated GFR 62, Est GFR ( Amer) 75, Glucose 93, Calcium 8.3 L, Magnesium 1.4 L, Total Bilirubin 0.6, AST 24, ALT 13, Alkaline Phosphatase 50, Troponin I < 0.01, C-Reactive Protein 1.4, Total Protein 6.3, Albumin 3.8, Globulin 2.5, Albumin/Globulin Ratio 1.5, Lipase 124 04/01/25 14:03: Urine Color Yellow, Urine Appearance Clear, Urine pH 7.0, Ur Specific [place] 1.015, Urine Protein Negative, Urine Glucose (UA) Negative, Urine Ketones Negative, Urine Blood Negative, Urine Nitrate Negative, Urine Bilirubin Negative, Urine Urobilinogen 0.2, Ur Leukocyte Esterase Negative, Urine RBC None, Urine WBC Occasional, Ur Squamous Epith Cells 3-5, Urine Bacteria Trace 04/01/25 15:21: Troponin I < 0.01 Orders (Tests/Meds): ED MEDICATIONS Discontinued Medications Generic Name Dose Route Start Last Admin Trade Name Morrisq PRN Reason Stop Dose Admin Hydrocodone Bitart/Acetaminophen 2 tab 04/01/25 17:04 04/01/25 17:21 Hydrocodone/Apap 5/325 Mg Tablet PO 04/01/25 17:05 2 tab ONCE ONE Administration Diazepam 5 mg 04/01/25 12:20 04/01/25 13:27 Diazepam 10mg/2ml Syringe IV 04/01/25 12:21 5 mg ONCE ONE Administration Dicyclomine HCl 20 mg 04/01/25 12:20 04/01/25 13:27 Dicyclomine 10mg Capsule PO 04/01/25 12:21 20 mg ONCE ONE Administration Famotidine 20 mg 04/01/25 12:20 04/01/25 13:27 Famotidine 20mg/2ml Vial IV 04/01/25 12:21 20 mg ONCE ONE Administration Sodium Chloride 1,000 mls @ 999 mls/hr 04/01/25 12:20 04/01/25 16:03 Sod Chlor 0.9% 1000ml Bag IV 04/01/25 13:20 Infused .Q1H1M ONE Infusion Magnesium Sulfate 2 gm in 50 mls @ 50 mls/hr 04/01/25 13:26 04/01/25 15:00 Magnesium Sulfate 2gm/50ml Premix IV 04/01/25 14:25 Infused ONCE ONE Infusion Ketorolac Tromethamine 30 mg 04/01/25 17:04 04/01/25 17:20 Ketorolac 30mg/Ml Vial IV 04/01/25 17:05 30 mg ONCE ONE Administration Ondansetron HCl 4 mg 04/01/25 17:04 04/01/25 17:20 Ondansetron 4mg/2ml Vial IV 04/01/25 17:05 4 mg ONCE ONE Administration Potassium Chloride 60 meq 04/01/25 13:26 04/01/25 13:52 Potassium Chloride 20meq Tab PO 04/01/25 13:27 60 meq ONCE ONE Administration Sodium Chloride 8 ml 04/01/25 12:20 Sodium Chloride 0.9% 10ml Vial IV 05/01/25 12:19 NEEDED PRN dilute pepcid ORDERS Category Date Time Status CT abdomen pelvis wo con Stat Cat Scan 04/01/25 18:20 Completed Consult to Behavioral Health [CONS] Routine Cons 04/01/25 17:30 Active CBC [Complete Blood Count Auto Diff] Stat Lab 04/01/25 13:00 Completed CRP [C-Reactive Protein] Stat Lab 04/01/25 13:00 Completed Comprehensive Metabolic Panel Stat Lab 04/01/25 13:00 Completed Erythrocyte Sedimentation Rate Stat Lab 04/01/25 13:00 Completed Lipase Stat Lab 04/01/25 13:00 Completed Magnesium Stat Lab 04/01/25 13:00 Completed Trop I [Troponin I] Stat Lab 04/01/25 13:00 Completed Troponin I Q3H Lab 04/01/25 15:21 Completed Urinalysis and Microscopic Stat Lab 04/01/25 14:03 Completed ECG Data Tracing #1: I reviewed this ECG and interpreted as documented below: EKG personally turbid by me demonstrates sinus bradycardia at a rate of 40 bpm, normal axis, NM prolongation consistent with first-degree AV block, QTc prolongation of 506 ms, no STEMI Tracing #2: I reviewed this ECG and interpreted as documented below: EKG personally turbid by me demonstrates sinus bradycardia at a rate of 40 bpm, normal axis, NM prolongation consistent with first-degree AV block, QTc prolongation of 509 ms, no STEMI Medical Decision Narrative: patient is a 69-year-old female presenting to the emergency department for evaluation of panic attacks, lower abdominal pain, nausea and vomiting. Patient is hemodynamically stable and nontoxic-appearing upon arrival, afebrile. Differential diagnosis includes viral illness, IBS, panic attacks, among others. Workup will be conducted with hematologic labs, specific imaging. Initial inventions include crystalloid bolus, analgesics. Initial workup reviewed by me hematologic labs are remarkable for normal white count, potassium 3.4 which was replaced here in the ED. Low mag which was also replaced in the ED. I was not going to do a CT scan since she had a recent CT at the end of February and a recent scope. However as the ER visit went on she continued to complain of abdominal pain even after pain medication was given. The pain medication did improve the pain but patient continues to complain of pain so decided to scan her abdomen and pelvis. CT scan of the abdomen and pelvis was personally interpreted and showed no evidence of pneumoperitoneum. Official radiology read states there is no acute findings. Patient has been bradycardic while in the ER, but she is not symptomatic from this and has not experienced near syncope or lightheadedness. I have reviewed prior trends, and she is frequently presenting to the ER with a heart rate in this range. EKG shows this is sinus rhythm with a 1st degree AVB which is not concerning for need of intervention. Given reassuring workup today and heart rate being at baseline, I don't feel she necessitates further workup at this time. All questions answered and all parties agreeable with decision to discharge home. I was consulted by the LOTUS, and we discussed the complexity of problems being addressed. I approved the treatment and management plan for this patient's care in the emergency department, thus performing a substantive portion of the medical decision making. Haris Santiago, Critical Care <Gissell Blackwell (ED), CABLE OPERATOR - Last Filed: 04/01/25 19:20> Critical Care Time Critical Care Time: No
--- NOTE | 2025-04-01 12:31 | ECG_ITS ---
APPROVED REPORT Exam: Resting ECG HR:40 bpm ECG Measurements Heart Rate 40 AXES UT 225 P 59 QRSd 98 QRS 7 QT 506 T 38 QTc 436 Conclusion Sinus tin 1st degree AVB Normal [place] QTc prolongation of 506 ms NO STEMI Electronically signed by : Haris Santiago, 04/01/2025 16:29:26
[2025-04-01 13:05] LABS: Hematocrit 31.1 % (37.0-47.0); Hemoglobin 10.1 g/dL (12.2-16.2); Immature Granulocytes % 0.2 %; Mean Corpuscular HGB Conc 32.5 g/dL (31.8-35.4); Mean Corpuscular Hemoglobin 28.5 pg (27.0-31.2); Mean Corpuscular Volume 87.9 fl (81-99); Nucleated Red Blood Cells % 0 %; Platelet Count 189 K/mm3 (142-424); Red Blood Count 3.54 M/mm3 (4.20-5.40); Red Cell Distribution Width-SD 44.5 fL; White Blood Count 5.6 K/mm3 (4.8-10.8)
[2025-04-01 13:14] LABS: Albumin Level 3.8 g/dl (3.5-5.0); Chloride 111 mmol/L (98-107); Potassium 3.4 mmoL/L (3.5-5.1); Sodium 143 mmol/L (136-145)
[2025-04-01 13:16] LABS: Blood Urea Nitrogen 15 mg/dl (7-17); Creatinine Clearance Estimated 65 mL/min (50-200); Creatinine,Serum 0.90 mg/dl (0.52-1.04); Estimated Glomerular Filt Rate 62 ml/min (>60); GFR (African American) 75 ML/MIN (>60)
[2025-04-01 13:17] LABS: Alanine Aminotransferase 13 U/L (12-78); Albumin/Globulin Ratio 1.5 (1.1-1.8); Alkaline Phosphatase 50 U/L (38-126); Anion Gap 7.4 mEq/L (5-15); Aspartate Amino Transferase 24 U/L (14-36); Bilirubin,Total 0.6 mg/dl (0.2-1.3); Calcium 8.3 mg/dl (8.4-10.2); Carbon Dioxide 28 mmol/L (22.0-30.0); Globulin 2.5 g/dL (1.3-3.2); Glucose 93 mg/dl (74-100); Lipase 124 U/L (23-300); Magnesium 1.4 mg/dl (1.6-2.3); Total Protein,Serum 6.3 g/dl (6.3-8.2)
[2025-04-01 13:22] LABS: C-Reactive Protein 1.4 mg/L (0-4)
[2025-04-01] MEDS: 0.9 % SODIUM CHLORIDE 1000ML 1,000 ML 999 ML IV (13:26)
[2025-04-01] MEDS: FAMOTIDINE 20MG/2ML VIAL 20 MG IV (13:27)
[2025-04-01] MEDS: diazePAM 10MG/2ML SYRINGE 5 MG IV (13:27)
[2025-04-01 13:35] LABS: Troponin I < 0.01 ng/ml (0.00-0.034)
[2025-04-01] MEDS: POTASSIUM CHLORIDE 20MEQ TAB 60 MEQ PO (13:52)
[2025-04-01] MEDS: MAGNESIUM SULFATE IN WATER 2 GM/50 ML PIGGYBACK IV (13:52)
[2025-04-01 14:08] LABS: Microscopic, Urine URINE MICROSCOPIC (MICROSCOPIC)
[2025-04-01 14:13] LABS: Bilirubin,Urine Negative (Negative); Color,Urine YELLOW (Yellow); Glucose,Urine (UA) Negative (Negative); Ketones,Urine Negative (Negative); Leukocyte Esterase,Urine Negative (Negative); PH,Urine 7.0 (5.0-8.5); Protein,Urine Negative (Negative); Specific Gravity, Urine 1.015 (1.005-1.030); Urobilinogen,Urine 0.2 EU/dl (0.2)
--- NOTE | 2025-04-01 14:35 | ECG_ITS ---
APPROVED REPORT Exam: Resting ECG HR:40 bpm ECG Measurements Heart Rate 40 AXES [place] 232 P 66 QRSd 95 QRS 40 QT 509 T 60 QTc 440 Conclusion Sinus bradycardia Normal axis 1st degree AVB QTc prolongation of 509 ms NO STEMI Electronically signed by : Haris Santiago, 04/01/2025 16:30:24
[2025-04-01 14:43] LABS: Bacteria,Urine Trace /lpf; WBC,Urine Occasional #/hpf (0-3)
[2025-04-01 16:06] LABS: Troponin I < 0.01 ng/ml (0.00-0.034)
[2025-04-01] MEDS: ONDANSETRON 4MG/2ML VIAL 4 MG IV (17:20)
[2025-04-01] MEDS: KETOROLAC 30MG/ML VIAL 30 MG IV (17:20)
[2025-04-01] MEDS: HYDROCODONE/APAP 5/325 MG TABLET 2 TAB PO (17:21)
--- NOTE | 2025-04-01 17:26 | PC.NURSE ---
pt has been very anxiosu and tearful all day even during triage, she keeps saying she is sorry she gave nurse a hard time and that she doesnt want to be here. RN and several other staff members have provided patient with reassurance that everything is ok and no one is mad or upset with the patient
--- NOTE | 2025-04-01 18:20 | CT_ITS ---
PROCEDURE INFORMATION: Exam: CT Abdomen And Pelvis Without Contrast Exam date and time: 04/01/2025 7:19 PM Age: 69 years old Clinical indication: Abdominal pain; Additional info: Abd pain TECHNIQUE: Imaging protocol: Computed tomography of the abdomen and pelvis without contrast. Total images: 316 Radiation optimization: All CT scans at this facility use at least one of these dose optimization techniques: automated exposure control; mA and/or kV adjustment per patient size (includes targeted exams where dose is matched to clinical indication); or iterative reconstruction. COMPARISON: CT ANGIO ABD/PEL - GI BLEED 03/12/2025 8:34 PM FINDINGS: Lungs: Linear bibasilar atelectasis. No airspace consolidation. Heart: Normal heart size. Diaphragm: Small hiatal hernia. Liver: Normal. No mass. Gallbladder and biliary ducts: Status post cholecystectomy. Mild dilatation of the common bile duct in keeping with post cholecystectomy ectasia. Interval resolved pneumobilia. Pancreas: Mild pancreatic atrophy. No discrete mass or acute pancreatitis. Spleen: Nonenlarged spleen with incidental calcified granuloma and adjacent splenule. Adrenal glands: Normal. No mass. Kidneys and ureters: No hydronephrosis, nephrolithiasis, or renal mass. Mild bilateral perinephric fat stranding. No ureteral stones. Stomach and bowel: Unremarkable stomach and duodenum. No ileus or bowel obstruction. Unremarkable small bowel. Unremarkable colon and rectum. Appendix: No evidence for appendicitis. Intraperitoneal space: No ascites. No free air. Vasculature: Nonaneurysmal abdominal aorta with minor scattered calcifications. Pelvic and retroperitoneal phleboliths. Lymph nodes: Unremarkable. No enlarged lymph nodes. Urinary bladder: Low lying bladder base/cystocele. Reproductive: Status post hysterectomy. No pelvic mass. Bones/joints: Unremarkable. No acute fracture. Soft tissues: Tiny fat containing left inguinal hernia. Tiny fat containing periumbilical hernia. IMPRESSION: 1. No acute intra-abdominal or pelvic process. 2. Chronic and incidental findings.
== END 2025-04-01 20:10 | disposition home or self-care (01) ==
PROVIDERS: Nurse Practitioner; Emergency Provider Student in an Organized Health Care Education/Training Program; PCP Family Medicine
DX: R10.30 Lower abdominal pain, unspecified (principal); R00.1 Bradycardia, unspecified; I44.0 Atrioventricular block, first degree; E87.6 Hypokalemia; E83.42 Hypomagnesemia; R11.2 Nausea with vomiting, unspecified; F41.1 Generalized anxiety disorder
CPT/HCPCS: 74176; 80053; 81001; 83690; 83735; 84484; 85025; 85651; 86140; 93005; 96361; 96365; 96375; 99285; J1885; J2405; J3360; J3475; J7030

== ENCOUNTER 2025-04-10 15:11 | Emergency (ER) | payer MEDICARE, OTHER, SELFPAY ==
[2025-04-10] VITALS (7 sets, daily range): BP systolic 154–185; BP diastolic 80–117; PULSE 43–80; RESP 11–20; TEMP 36.4–36.7; O2SAT 94–98; BMI 29.8
--- NOTE | 2025-04-10 15:35 | ECG_ITS ---
APPROVED REPORT Exam: Resting ECG HR:45 bpm ECG Measurements Heart Rate 45 AXES MN 229 P 62 QRSd 90 QRS 25 QT 490 T 42 QTc 446 Conclusion SINUS BRADYCARDIA WITH FIRST DEGREE AV BLOCK ABNORMAL ECG UNCONFIRMED REPORT Sinus bradycardia with first-degree AV block. No ST elevation or depression. Electronically signed by : ANNA MACE, 04/10/2025 21:04:07
--- NOTE | 2025-04-10 15:44 | ED_ITS ---
<Statement entered by Dallas Valles MD - 04/10/25 21:47> I was consulted by the LOTUS, and we discussed the complexity of the problems being addressed. I approve the treatment and management plan for this patient's care in the emergency department, thus performing a substantive portion of the medical decision making. Dallas Valles MD Discharge Plan Disposition Patient Disposition: Home, Self-Care Condition: Good Prescriptions Prescriptions: New ondansetron 4 mg tablet,disintegrating 4 mg PO Q6H PRN (Reason: nausea and vomiting) Qty: 12 0RF No Action escitalopram oxalate [Lexapro] 20 mg tablet 20 mg PO DAILY Qty: 30 2RF aspirin [Adult Aspirin Regimen] 81 mg tablet,delayed release (DR/EC) 81 mg PO DAILY albuterol sulfate 90 mcg/actuation HFA aerosol inhaler 2 puff inhalation Q4-6H PRN (Reason: shortness of breath or wheezing) Qty: 18 2RF fluticasone propionate [Allergy Relief (fluticasone)] 50 mcg/actuation spray,suspension 1 spray intranasal BID Qty: 16 2RF Rx Instructions: administer into each nostril 2x/day furosemide 40 mg tablet 40 mg PO DAILY 30 Days Qty: 30 2RF metoprolol succinate 25 mg tablet extended release 24 hr 25 mg PO DAILY Qty: 30 2RF Eliquis 5 mg tablet 5 mg PO BID Qty: 60 2RF ondansetron 4 mg tablet,disintegrating 4 mg PO Q6H PRN (Reason: nausea and vomiting) Qty: 20 0RF alendronate 10 mg tablet 10 mg PO DAILY Qty: 30 2RF diazepam 5 mg tablet 5 mg PO TID PRN (Reason: anxiety) Qty: 90 0RF Rx Instructions: ok to fill on February 24, 2025 dicyclomine 10 mg capsule 10 mg PO TID Qty: 90 12RF Rx Instructions: Please take 1 capsule by mouth 3 times daily before meals trazodone 50 mg tablet 25 - 50 mg PO HS PRN (Reason: insomnia) Qty: 30 0RF lisinopril 20 mg tablet 20 mg PO DAILY oxybutynin chloride 5 mg tablet 5 mg PO DAILY pantoprazole 40 mg Tablet,Delayed Release (Dr/Ec) 40 mg PO BID 30 Days Qty: 60 0RF Referrals Follow up/Referrals: Colin Smith MD [Primary Care Provider, Family Practice] - See instructions Activity Restrictions/Add. Instructions Additional Instructions/Restrictions: You were evaluated on an emergency basis. It is very important that you follow- up with your primary care provider and any specialist who we discussed within the next 2 days in order to better assess your health more comprehensively. For example, incidental findings on imaging or laboratory results that were performed today may be discovered, which do not require immediate medical care, but may impact your health in the future. If your symptoms worsen or persist, please return to the emergency department immediately for reassessment. Take all medications as prescribed. In queue for allowing me to participate in your health care, and I hope you feel better soon. Clinical Impressions Clinical Impression: Vomiting Instructions Patient Instructions: DI for Vomiting -- Adult Print Language Print Language: Belarusian Discharge ED Provider: Dallas Valles General Chief Complaint: Chest Pain Stated Complaint: High B/P,vomiting Time Seen by Provider: 04/10/25 15:43 Mode of Arrival: Ambulatory Source of Information: Patient Description of Symptoms (Recalled from ER Triage Doc. by RN): Patient states she has been having chest pain for 3-4 days, vomiting and states she was at recruitment officer office and was sent to the ER for evaluation. History of Present Illness HPI narrative: 69-year-old female presents emergency department complaints of vomiting, panic attack, chest pain. She reports that she has had intermittent chest pain over the last 3 days. Reports she started having vomiting this morning, denies fever or diarrhea. States she is having lower abdominal pain. She also reports she has a history of Crohn's disease. In addition she is complaining of a panic attack that she states started earlier today. She reports taking Valium daily to treat her anxiety with her last dose earlier this date. Related Data Home Medications ?Medication ?Instructions ?Recorded ?Confirmed aspirin 81 mg tablet,delayed 81 mg PO DAILY 09/27/24 0 04/10/25 release (Adult Aspirin Regimen) lisinopril 20 mg tablet 20 mg PO DAILY 03/03/2503/15 oxybutynin chloride 5 mg tablet 5 mg PO DAILY 03/04/25 04/10/25 Previous Rx's ?Medication ?Instructions ?Recorded albuterol sulfate 90 mcg/actuation 2 puff inhalation Q 4-6H PRN 12/03/24 aerosol inhaler shortness of breath or wheez ing #18 grams fluticasone propionate 50 1 spray intranasal BID #16 g anatoliy 01/10/25 mcg/actuation nasal spray,suspension (Allergy Relief (fluticasone)) alendronate 10 mg tablet 10 mg PO DAILY #30 tabs 02/11 09/07 furosemide 40 mg tablet 40 mg PO DAILY 30 days #30 t abs 03/03/25 pantoprazole 40 mg tablet,delayed 40 mg PO BID 30 days #60 tabs 03/06/25 release escitalopram oxalate 20 mg tablet 20 mg PO DAILY #30 t abs 03/21/25 (Lexapro) ondansetron 4 mg disintegrating 4 mg PO Q6H PRN nausea and 03/24/25 tablet vomiting #20 tabs diazepam 5 mg tablet 5 mg PO TID PRN anxiety #90 tabs 03/26/25 dicyclomine 10 mg capsule 10 mg PO TID #90 caps trazodone 50 mg tablet 25 - 50 mg (0.5 - 1 x 50 mg) PO HS 04/08/25 PRN insomnia #30 tabs apixaban 5 mg tablet (Eliquis) 5 mg PO BID #60 tabs metoprolol succinate 25 mg 25 mg PO DAILY #30 tabs tablet,extended release 24 hr ondansetron 4 mg disintegrating 4 mg PO Q6H PRN nausea and 04/10/25 tablet vomiting #12 tabs Allergies Allergy/AdvReac Type Severity Reaction Status Date / Time cephalexin (From Keflex) Allergy Severe Difficulty Verified 04/10/25 14:32 Breathing prochlorperazine Allergy Severe Swelling Verified 04/10/25 14:32 (PROCHLORPERAZINE) of Lip/Tongue/Throat codeine (CODEINE) Allergy Unknown VOMITING / Verified 04/10/25 14:32 NAUSEA prednisone (PREDNISONE) Allergy Unknown BP ISSUES Verified 04/10/25 14:32 promethazine (From PHENERGAN) Allergy Unknown Unknown Verified 04/10/25 14:32 allergy reaction metoclopramide (From Reglan) Allergy Nausea Verified 04/10/25 14:32 hydroxyzine (From Vistaril) AdvReac Hives Verified 04/10/25 14:32 [facility] Disclaimer: The information contained in this section may have been updated after the patient was seen, as this information can be updated by other users. Medical History (Updated 04/10/25 @ 17:59 by Chelita Melara) New onset a-fib Dyspepsia Dysphagia Common bile duct dilation Abnormal findings on imaging of biliary tract Upper respiratory tract infection Recurrent acute otitis media of right ear Nausea & vomiting Chest pain Near syncope Chronic abdominal pain Anxiety related tremor High globulin level Shakiness SOB (shortness of breath) Palpitations Bradycardia Screening for colon cancer Breast cancer screening by mammogram Crohn's disease Community acquired pneumonia Chronic kidney disease (HFpEF) heart failure with preserved ejection fraction Abnormal chest CT Schatzki's ring Sinus bradycardia Insomnia Depression Anxiety Osteoporosis Allergies History of anemia History of constipation Sphincter of Oddi dysfunction HTN (hypertension) Bilateral lower extremity edema Surgical History Lipoma of back Status post cholecystectomy H/O oral surgery History of appendectomy H/O total hysterectomy History of esophagogastroduodenoscopy (EGD) History of arthroscopy of right knee Status post knee surgery History of intestinal surgery Family History Other Cancer Heart attack Social History Smoking Status: Never smoker second hand exposure: No alcohol intake: never substance use type: denies use current occupational status: disabled Travel in the last 8 weeks?: None household members: none housing: apartment number of children: 2 current occupational exposures/hazards: No caffeine: Yes Have you lived/traveled outside US in past 30 days?: No Contact w/someone who lives/traveled outside US past 30 days?: No Exposure to someone with infectious disease in past 14 days?: No Do you have a fever (greater than 100.4 F or 38 C)?: No Have you tested positive for COVID-19?: No Exposed to someone with COVID-19 in past 14 days?: No Do you have a sore throat?: No Do you have a cough?: No Do you have any weakness?: No Do you have any diarrhea?: No Are you experiencing any unusual bleeding?: No Do you have any muscle aches/pain?: No Do you have any abdominal pain?: No Are you experiencing loss of taste or smell?: No Other Medical History Have you received the Flu Vaccine for this season: No Have you received the Pneumonia Vaccine: Yes ROS Obtained: Yes All systems reviewed & no additional complaints except as documented Cardiovascular Cardiovascular: Reports chest pain Gastrointestinal Gastrointestingal: Reports abdominal pain and vomiting Physical Exam Narrative Physical exam: General: Awake, aware HEENT: Normocephalic, no evidence of trauma CV: RRR, no murmurs, rubs, or gallops Pulm: CTA bilaterally with no rhonchi, rales, wheezes ABD: Nontender, no swelling, guarding, or rebound tenderness Psych: Anxious General General appearance: alert Respiratory Respiratory exam: Present normal lung sounds bilaterally Cardiovascular Cardiovascular exam: Present regular rate Neurological Exam Neurological exam: Present alert HEART Score HEART Score HEART Score assessment performed?: Yes History (anamnesis): Slightly suspicious ECG: Normal Age: >65 years Risk factors: 1-2 risk factors Troponin: </= normal limit HEART Score: 3 Critical Care Critical Care Time Critical Care Time: No Medical Decision Making Grant Inquiry Pt receiving controlled substance: No Vital Signs Vital Signs: 04/10/25 15:36 04/10/25 15:54 04/10/25 16:01 Temperature 97.6 F Temperature Source Oral Pulse Rate 45 L 43 L Pulse Rate [Right Brachial] 45 L Respiratory Rate 16 11 L 13 Blood Pressure 185/100 H 160/86 H Blood Pressure [Right Arm] 159/98 H Blood Pressure Mean [Right Arm] 118 Blood Pressure Source [Right Arm] Automatic Cuff Blood Pressure Position [Right Arm] Sitting 02 Sat by Pulse Oximetry 94 L 96 96 Oxygen Delivery Method Room Air 04/10/25 16:31 04/10/25 17:01 Temperature Temperature Source Pulse Rate 49 L 50 L Pulse Rate [Right Brachial] Respiratory Rate 20 17 Blood Pressure 154/117 H 180/99 H Blood Pressure [Right Arm] Blood Pressure Mean [Right Arm] Blood Pressure Source [Right Arm] Blood Pressure Position [Right Arm] 02 Sat by Pulse Oximetry 96 94 L Oxygen Delivery Method Lab Data Labs: Lab Results 04/10/25 15:50: WBC 6.3, RBC 3.56 L, Hgb 10.0 L, Hct 31.8 L, MCV 89.3, MCH 28.1, MCHC 31.4 L, RDW 14.0, Plt Count 198, MPV 12.3 H, Neut % (Auto) 56.8, Lymph % (Auto) 29.7, [place] % (Auto) 7.5, Eos % (Auto) 5.1, Baso % (Auto) 0.6, Neut # (Auto) 3.6, Lymph # (Auto) 1.9, [place] # (Auto) 0.5, Eos # (Auto) 0.3, Baso # (Auto) 0.0, Sodium 138, Potassium 3.6, Chloride 110 H, Carbon Dioxide 27, Anion Gap 4.6 L, BUN 16, Creatinine 0.90, Estimated Creat Clear 66, Estimated GFR 62, Est GFR ( Amer) 75, Glucose 94, Calcium 8.7, Magnesium 1.7, Total Bilirubin 0.5, AST 25, ALT 10 L, Alkaline Phosphatase 55, Troponin I < 0.01, Total Protein 6.7, Albumin 4.0, Globulin 2.7, Albumin/Globulin Ratio 1.5, Lipase 74 04/10/25 15:50 04/10/25 15:50 Response Orders (Tests/Meds): ED MEDICATIONS Discontinued Medications Generic Name Dose Route Start Last Admin Trade Name Freq PRN Reason Stop Dose Admin Dicyclomine HCl 20 mg 04/10/25 15:53 04/10/25 16:06 Dicyclomine 20 Mg/2ml Vial IM 04/10/25 15:54 20 mg ONCE ONE Administration Sodium Chloride 1,000 mls @ 999 mls/hr 04/10/25 15:53 04/10/25 16:06 Sod Chlor 0.9% 1000ml Bag IV 04/10/25 16:53 999 mls/hr .Q1H1M ONE Administration Iopamidol 85 ml 04/10/25 16:53 04/10/25 16:53 Iopamidol-370 (76%);100ml Bottle IV 04/10/25 16:54 85 ml ONCE ONE Administration Ondansetron HCl 4 mg 04/10/25 15:53 04/10/25 16:06 Ondansetron 4mg/2ml Vial IV 04/10/25 15:54 4 mg ONCE ONE Administration ORDERS Category Date Time Status CT abdomen pelvis w con Stat Cat Scan 04/10/25 15:53 Completed XR chest portable Stat Exams 04/10/25 15:53 Completed CBC w/Auto Diff [Complete Blood Count Auto Diff] Stat Lab 04/10/25 15:50 Completed CMP [Comprehensive Metabolic Panel] Stat Lab 04/10/25 15:50 Completed Lipase Stat Lab 04/10/25 15:50 Completed Magnesium Stat Lab 04/10/25 15:50 Completed Troponin I Q3H Lab 04/10/25 15:50 Completed MDM Narrative Medical Decision Narrative: Initial impression of presenting illness: 69-year-old female presents emergency department with complaints of intermittent chest pain for the past 3 days. Also reports that she started vomiting this morning. In addition she is also complaining of a panic attack that started earlier this day. She reports that she takes Valium daily for treatment of her anxiety and has had a dose earlier this date. She denies diarrhea, constipation, fever. She states she does have a history of Crohn's disease as well. Differential diagnosis includes but is not limited to: ACS, Crohn's exacerbation, gastroenteritis, gastritis, left-sided abnormality, dehydration Patient arrives hemodynamically stable, afebrile, without respiratory distress with vital signs interpreted by myself. Initial physical exam unremarkable for physical findings however patient is anxious on exam. Initial diagnostic plan: ACS workup including a CT of abdomen pelvis with IV contrast, normal saline bolus for hydration, Zofran for nausea, Bentyl for pain control. Results from initial plan were reviewed and interpreted by myself, pertinent positives include: Laboratory studies were nonactionable as well as chest x-ray and CT of abdomen pelvis. Interventions in the ED: Patient was given normal saline bolus for hydration as well as Zofran for nausea and Bentyl for pain control. Patient was made aware of the results and the findings, upon reevaluation patient has remained stable throughout stay, symptoms have improved. Upon reevaluation patient is resting more comfortably in bed. She has not had any episodes of vomiting or diarrhea during her ER stay. Consultation/discussion with other physicians: Discussed patient's presenting complaint as well as workup findings with ED attending Dr. Reyes Disposition: Advised patient no acute abnormalities were noted on her workup. Commend she continue with all previously prescribed medications. Informed her her that we will give her prescription for Zofran to help with her vomiting. Instructed her to follow-up with her primary care provider for further evaluation of her anxiety as well as any ongoing nausea or vomiting. Recommended that she increase her fluid intake and rest for the next several days and consume a bland diet and slowly advance as tolerated. Instructed her to return to the emergency department any new or worsening symptoms. Patient made aware of findings and had a detailed discussion with symptomatic care and return precautions, patient voiced understanding.
--- OUTSIDE RECORDS SUMMARY | 2025-04-10 15:44 | XMS_ITS | Clinical Summary ---
Author Organization Healthcare Address [address] [place] [address] Care Team Providers Care Senior Clinical Project Manager Name Role Phone Reuben Fong MD Primary Care Provider [phone] Social History Tobacco Use Types Packs/Day Years [...] (2 of 2 - PCV) 01/03/2019 01/03/2018 [id number] Vaccine (2 - season) 2024 11/18/2020 UKY-Influenza [...] Insurance [employer] Care Teams Senior Clinical Project Manager Relationship Specialty Start Date End Date Reuben Fong MD [address] [place] [address] [place]ST[place] Krueger [address] PCP - General 12/25/20
--- OUTSIDE RECORDS SUMMARY | 2025-04-10 15:44 | XMS_ITS | Clinical Summary ---
Author Organization [facility] Address [address] [place] [id number] Care Team Providers Care Shovel Engineer Name Role Phone Unavailable Primary Care Provider [...] therelease of HIV test results or diagnoses. [id number] Social History Tobacco Use Types Packs/Day Years Used Date Smoking Tobacco: Never Assessed Comments Unknown Sex and Gender Information Value Date Recorded Sex Assigned at Not on file Legal Sex Female 10:53 PM EST Gender Identity Not on file Sexual Orientation Not on file Plan of Treatment Not on file
--- NOTE | 2025-04-10 15:53 | CT_ITS ---
PROCEDURE INFORMATION: Exam: CT Abdomen And Pelvis With Contrast Exam date and time: 04/10/2025 4:45 PM Age: 69 years old Clinical indication: Abdominal pain; Flank; Right lower quadrant (rlq); Additional info: Rlq pain TECHNIQUE: Imaging protocol: Computed tomography of the abdomen and pelvis with contrast. Radiation optimization: All CT scans at this facility use at least one of these dose optimization techniques: automated exposure control; mA and/or kV adjustment per patient size (includes targeted exams where dose is matched to clinical indication); or iterative reconstruction. Contrast material: ISOVUE; Contrast volume: 75 ml; Contrast route: IV; COMPARISON: CT ABDOMEN PELVIS WO CON 04/01/2025 7:19 PM FINDINGS: Liver: Normal. No mass. Gallbladder and biliary ducts: Cholecystectomy. Pancreas: Normal. No ductal dilation. Spleen: Normal. No splenomegaly. Adrenal glands: Normal. No mass. Kidneys and ureters: No evidence of renal stone or obstruction. Stomach and bowel: Unremarkable. No obstruction. No mucosal thickening. Appendix: No evidence of appendicitis. Intraperitoneal space: Unremarkable. No free air. No significant fluid collection. Vasculature: Unremarkable. No abdominal aortic aneurysm. Lymph nodes: Unremarkable. No enlarged lymph nodes. Urinary bladder: Unremarkable as visualized. Reproductive: Hysterectomy. Bones/joints: Unremarkable. No acute fracture. Soft tissues: Unremarkable. IMPRESSION: 1. No acute process identified. 2. Cholecystectomy and hysterectomy. 3. No evidence of renal stone or obstruction.
--- NOTE | 2025-04-10 15:53 | XR_ITS ---
PROCEDURE INFORMATION: Exam: XR Chest Exam date and time: 04/10/2025 4:31 PM Age: 69 years old Clinical indication: Pain; Other: Cp TECHNIQUE: Imaging protocol: Radiologic exam of the chest. Views: 1 view. COMPARISON: CT ANGIO CHEST PE PROTOCOL 03/03/2025 6:12 PM FINDINGS: Tubes, catheters and devices: Central venous catheter in good position distal tip in the superior vena cava. Lungs: No focal infiltrates or other acute process noted. Pleural spaces: Unremarkable. No pleural effusion. No pneumothorax. Heart/Mediastinum: Mild cardiomegaly is stable. Bones/joints: Unremarkable. IMPRESSION: Central venous catheter in good position distal tip in the superior vena cava. Mild cardiomegaly is stable. No focal infiltrates or other acute process noted.
[2025-04-10 16:05] LABS: Hematocrit 31.8 % (37.0-47.0); Hemoglobin 10.0 g/dL (12.2-16.2); Immature Granulocytes % 0.3 %; Mean Corpuscular HGB Conc 31.4 g/dL (31.8-35.4); Mean Corpuscular Hemoglobin 28.1 pg (27.0-31.2); Mean Corpuscular Volume 89.3 fl (81-99); Nucleated Red Blood Cells % 0 %; Platelet Count 198 K/mm3 (142-424); Red Blood Count 3.56 M/mm3 (4.20-5.40); Red Cell Distribution Width-SD 45.8 fL; White Blood Count 6.3 K/mm3 (4.8-10.8)
[2025-04-10] MEDS: 0.9 % SODIUM CHLORIDE 1000ML 1,000 ML 999 ML IV (16:06)
[2025-04-10] MEDS: DICYCLOMINE 20 MG/2ML VIAL IM (16:06)
[2025-04-10] MEDS: ONDANSETRON 4MG/2ML VIAL 4 MG IV (16:06)
[2025-04-10 16:17] LABS: Albumin Level 4.0 g/dl (3.5-5.0); Chloride 110 mmol/L (98-107); Potassium 3.6 mmoL/L (3.5-5.1); Sodium 138 mmol/L (136-145)
[2025-04-10 16:19] LABS: Alanine Aminotransferase 10 U/L (12-78); Aspartate Amino Transferase 25 U/L (14-36); Blood Urea Nitrogen 16 mg/dl (7-17); Creatinine Clearance Estimated 66 mL/min (50-200); Creatinine,Serum 0.90 mg/dl (0.52-1.04); Estimated Glomerular Filt Rate 62 ml/min (>60); GFR (African American) 75 ML/MIN (>60)
[2025-04-10 16:20] LABS: Albumin/Globulin Ratio 1.5 (1.1-1.8); Alkaline Phosphatase 55 U/L (38-126); Anion Gap 4.6 mEq/L (5-15); Bilirubin,Total 0.5 mg/dl (0.2-1.3); Calcium 8.7 mg/dl (8.4-10.2); Carbon Dioxide 27 mmol/L (22.0-30.0); Globulin 2.7 g/dL (1.3-3.2); Glucose 94 mg/dl (74-100); Lipase 74 U/L (23-300); Magnesium 1.7 mg/dl (1.6-2.3); Total Protein,Serum 6.7 g/dl (6.3-8.2)
[2025-04-10 16:35] LABS: Troponin I < 0.01 ng/ml (0.00-0.034)
[2025-04-10] MEDS: IOPAMIDOL-370 (76%);100ML BOTTLE 85 ML IV (16:53)
== END 2025-04-10 18:23 | disposition home or self-care (01) ==
PROVIDERS: Nurse Practitioner Family; Emergency Provider Student in an Organized Health Care Education/Training Program; PCP Family Medicine
DX: R11.10 Vomiting, unspecified (principal); I10 Essential (primary) hypertension; F41.1 Generalized anxiety disorder; F34.1 Dysthymic disorder
CPT/HCPCS: 71045; 74177; 80053; 83690; 83735; 84484; 85025; 93005; 96361; 96372; 96374; 96375; 99285; J0500; J1642; J2405; J7030; Q9967

== ENCOUNTER 2025-04-24 11:08 | Outpatient (CLI) | payer MEDICARE, OTHER, SELFPAY ==
--- OUTSIDE RECORDS SUMMARY | 2025-04-24 11:14 | XMS_ITS | Clinical Summary ---
Author Organization [facility] Address [address] [place] [id number] Care Team Providers Care Gold Blower Name Role Phone Unavailable Primary Care Provider [...] therelease of HIV test results or diagnoses. [id number] Social History Tobacco Use Types Packs/Day Years Used Date Smoking Tobacco: Never Assessed Comments Unknown Sex and Gender Information Value Date Recorded Sex Assigned at Not on file Legal Sex Female 10:53 PM EST Gender Identity Not on file Sexual Orientation Not on file Plan of Treatment Not on file
--- OUTSIDE RECORDS SUMMARY | 2025-04-24 11:14 | XMS_ITS | Clinical Summary ---
Author Organization Healthcare Address [address] [place] [address] Care Team Providers Care Crystal Slicer Name Role Phone Reuben Fong MD Primary Care Provider [phone] Social History Tobacco Use Types Packs/Day Years [...] (2 of 2 - PCV) 01/03/2019 01/03/2018 [id number] Vaccine (2 - season) 2025 11/18/2020 UKY-Influenza Vaccine (#1) 04/14/202506/01, 05/15/2017 UKY-RSV [...] Insurance [employer] MED[employer] Care Teams Crystal Slicer Relationship Specialty Start Date End Date Reuben Fong MD [address] [place] [address] [place] Krueger [address] PCP - General 12/25/20
== END 2025-04-24 23:59 | disposition home or self-care (01) ==
LOC: RAD 11:09
PROVIDERS: PCP Family Medicine; Visit Provider Internal Medicine
DX: I11.0 Hypertensive heart disease with heart failure (principal); I50.30 Unspecified diastolic (congestive) heart failure; I48.91 Unspecified atrial fibrillation

== ENCOUNTER 2025-05-01 07:12 | Outpatient (CLI) | payer MEDICARE, OTHER, SELFPAY ==
--- NOTE | 2025-05-01 | CA_ITS ---
APPROVED REPORT Exam: Pharmacologic Technologist: Lynette Hoffman Ht: 5 ft 4 in Wt: 176 lbs BSA: 1.85 m2 HR: 43 bpm BP: 194/88 mmHg Stress Test Details Test: Lexiscan Reason for pharmacologic stress test: physical limitation. HR Resting HR: 43 bpm Max Heart Rate (APMHR): 151.162067 bpm Max HR Achieved: 62 bpm Target HR (85% APMHR): 128.359772 bpm % of APMHR: 41.06 Recovery HR: 52 bpm BP Resting BP: 194.0/88.0 mmHg Max BP: 205.0/88.0 mmHg Recovery BP: 183.0/85.0 mmHg ECG Resting ECG: Sinus Bradycardia. Artifact. Stress ECG Conclusion Symptoms: Nausea. Arrhythmias/Ectopy: None. ST-T Changes: less than 0.5mm upsloping ST segment changes. Conclusion: Nondiagnostic EKG/Lexiscan. Electronically signed by : Soni Cary MD 05/03/2025 22:46:02
--- OUTSIDE RECORDS SUMMARY | 2025-05-01 07:16 | XMS_ITS | Clinical Summary ---
Author Organization [facility] Address [address] [place] [address] Care Team Providers Care Electrical Sign Wirer Helper Name Role Phone Reuben Fong MD Primary Care Provider [phone] Social History Tobacco Use Types Packs/Day Years [...] (2 of 2 - PCV) 01/03/2019 01/03/2018 [id number] Vaccine (2 - season) 2025 11/18/2020 UKY-Influenza [...] Insurance [employer] Care Teams Electrical Sign Wirer Helper Relationship Specialty Start Date End Date Reuben Fong MD [address] [place] [address] [place] Krue[place] [address] PCP - General 12/25/20
--- OUTSIDE RECORDS SUMMARY | 2025-05-01 07:16 | XMS_ITS | Clinical Summary ---
Author Organization [facility] Address [address] [place] [id number] Care Team Providers Care Nuclear Chemistry Technician Name Role Phone Unavailable Primary Care Provider [...] therelease of HIV test results or diagnoses. [id number] Social History Tobacco Use Types Packs/Day Years Used Date Smoking Tobacco: Never Assessed Comments Unknown Sex and Gender Information Value Date Recorded Sex Assigned at Not on file Legal Sex Female 10:53 PM EST Gender Identity Not on file Sexual Orientation Not on file Plan of Treatment Not on file
--- NOTE | 2025-05-01 07:30 | NM_ITS ---
APPROVED REPORT Exam: Nuclear Stress Test Indication: soa..fatigue..cp Patient Location: Outpatient Stress Tech: Lynette Bates CT Tech:MICHAEL Solis RT(R)(N) Ht: 5 ft 4 in Wt: 174 lbs Bra Size: 34b HR: 44 bpm BP: 194/88 mmHg BSA: 1.84 m2 TID: 1.05 BMI: 29.8 History: soa..fatigue..cp Procedure: Patient received 0.4 mg of intravenous Lexiscan, resting heart rate 44 bpm, resting blood pressure 194/88 mmHg, with Lexiscan maximum heart rate achieved was 62 bpm which is 85 % of the maximum predicted heart rate and blood pressure was 192/96 mmHg. With Lexiscan, patient denied any complaint of chest pain. Cardiac Stress and Resting SPECT Images: Cardiac Stress and Resting SPECT images were obtained using technetium 99m Myoview 32.8 mCi stress and 10.81 mCi at rest. Technically difficult study due to significant soft tissue overlap with the cardiac borders. This may affect the diagnostic interpretation of the study findings. Resting and stress imaging in supine positions demonstrate a medium sized, moderate, fixed perfusion defect in the mid to distal anterior LV wall.This is no longer visualized with prone stress imaging. Findings are suggestive of soft tissue attenuation. Gated imaging demonstrates normal global and regional LV systolic function. LVEF is calculated at 59%. Conclusion: Soft tissue attenuation is present. No evidence of fixed or reversible perfusion defects. Gated imaging demonstrates normal global and regional LV systolic function. LVEF is calculated at 59%. Electronically signed by : Soni Cary MD 05/03/2025 22:42:00
[2025-05-01 08:40] VITALS: BP 194/88; PULSE 43; RESP 16
[2025-05-01] MEDS: ISOTOPE MYOVIEW (PER STUDY) 1 DOSE IV (09:07)
[2025-05-01] MEDS: SODIUM CHLORIDE 0.9% 10ML SYR (RAD ONLY) 10 ML IV ×2 (09:08)
== END 2025-05-01 23:59 | disposition home or self-care (01) ==
LOC: RAD 07:14
PROVIDERS: PCP Family Medicine; Visit Provider Internal Medicine
DX: R06.02 Shortness of breath (principal)
CPT/HCPCS: 78452; 93017; 93018; A9502; J2785

== ENCOUNTER 2025-05-06 14:23 | Outpatient (CLI) | payer MEDICARE, OTHER, SELFPAY ==
--- OUTSIDE RECORDS SUMMARY | 2025-05-06 14:25 | XMS_ITS | Clinical Summary ---
Author Organization [facility] Address [address] [place] [address] Care Team Providers Care Drafter (Cad) Electronic Name Role Phone Reuben Fong MD Primary Care Provider [phone] Social History Tobacco Use Types Packs/Day Years [...] (2 of 2 - PCV) 01/03/2019 01/03/2018 [id number] Vaccine (2 - season) 2025 11/18/2020 [facility]-Influenza [...] Insurance [employer] Care Teams Drafter (Cad) Electronic Relationship Specialty Start Date End Date Reuben Fong MD [address] [place] [address] [place] Krueger [id number] PCP - General 12/25/20
--- OUTSIDE RECORDS SUMMARY | 2025-05-06 14:25 | XMS_ITS | Clinical Summary ---
Author Organization [facility] Address [address] [place] [id number] Care Team Providers Care Ruby Developer Name Role Phone Unavailable Primary Care Provider [...] therelease of HIV test results or diagnoses. [id number] Social History Tobacco Use Types Packs/Day Years Used Date Smoking Tobacco: Never Assessed Comments Unknown Sex and Gender Information Value Date Recorded Sex Assigned at Not on file Legal Sex Female 10:53 PM EST Gender Identity Not on file Sexual Orientation Not on file Plan of Treatment Not on file
== END 2025-05-06 23:59 | disposition home or self-care (01) ==
LOC: RT 14:24
PROVIDERS: PCP Family Medicine; Visit Provider Internal Medicine
DX: I49.1 Atrial premature depolarization (principal); I47.19 Other supraventricular tachycardia; I49.3 Ventricular premature depolarization
CPT/HCPCS: 93270

== ENCOUNTER 2025-05-08 14:12 | Emergency (ER) | payer MEDICARE, OTHER, SELFPAY ==
[2025-05-08] VITALS (12 sets, daily range): BP systolic 158–190; BP diastolic 70–89; PULSE 44–55; RESP 14–24; TEMP 36.7; O2SAT 92–100; BMI 30.9
--- NOTE | 2025-05-08 14:21 | ECG_ITS ---
APPROVED REPORT Exam: Resting ECG HR:48 bpm ECG Measurements Heart Rate 48 AXES QRSd 91 QRS 7 QT 456 T 39 QTc 423 Conclusion ATRIAL FIBRILLATION WITH SLOW VENTRICULAR RESPONSE ABNORMAL RHYTHM ECG WARNING: DATA QUALITY MAY AFFECT INTERPRETATION UNCONFIRMED REPORT Electronically signed by : VIVIEN ZAMAN, 05/09/2025 03:58:13
--- NOTE | 2025-05-08 14:22 | CT_ITS ---
PROCEDURE INFORMATION: Exam: CTA Chest With Contrast Exam date and time: 05/08/2025 4:40 PM Age: 69 years old Clinical indication: Pain; Chest pressure; Additional info: Cp to back TECHNIQUE: Imaging protocol: Computed tomographic angiography of the chest with contrast. Exam focused on the arteries. 3D rendering (Not supervised by radiologist): MIP and/or 3D reconstructed images were created by the technologist. Radiation optimization: All CT scans at this facility use at least one of these dose optimization techniques: automated exposure control; mA and/or kV adjustment per patient size (includes targeted exams where dose is matched to clinical indication); or iterative reconstruction. Contrast material: ISOVUE 370; Contrast volume: 80 ml; Contrast route: INTRAVENOUS (IV); COMPARISON: CT ANGIO CHEST PE PROTOCOL 03/03/2025 6:12 PM FINDINGS: Pulmonary arteries: Dilated pulmonary arteries with the main pulmonary trunk measuring 3.5 cm in caliber. No pulmonary emboli. Aorta: Unremarkable. No aortic aneurysm. No aortic dissection. Lungs: Mild interlobular septal thickening. Mild atelectasis. No consolidation. No masses. Pleural spaces: Unremarkable. No pneumothorax. No pleural effusion. Heart: Mild cardiomegaly. Trace pericardial effusion. Lymph nodes: Few stable mildly prominent mediastinal lymph nodes. Diaphragm: Small hiatal hernia. Gallbladder and biliary ducts: Cholecystectomy. Stable biliary ductal dilatation. Minimal pneumobilia. Bones/joints: Degenerative changes. No acute fracture. Soft tissues: Left chest wall port catheter with tip terminating at the superior cavoatrial junction. IMPRESSION: 1. No pulmonary artery embolism. Dilated pulmonary arteries suggestive of pulmonary arterial hypertension. 2. Mild interlobular septal thickening, which can be seen with pulmonary edema, infection or interstitial pneumonia in the acute setting. 3. Cholecystectomy. Stable biliary ductal dilatation. Minimal pneumobilia.
--- NOTE | 2025-05-08 14:24 | ED_ITS ---
Discharge Plan Disposition Patient Disposition: Home, Self-Care Prescriptions Prescriptions: New azithromycin 250 mg tablet 250 mg PO DAILY 4 Days Qty: 4 0RF Rx Instructions: start on day 2 of therapy No Action escitalopram oxalate [Lexapro] 20 mg tablet 20 mg PO DAILY Qty: 30 2RF trazodone 100 mg tablet 100 mg PO DAILY Qty: 30 2RF aspirin [Adult Aspirin Regimen] 81 mg tablet,delayed release (DR/EC) 81 mg PO DAILY albuterol sulfate 90 mcg/actuation HFA aerosol inhaler 2 puff inhalation Q4-6H PRN (Reason: shortness of breath or wheezing) Qty: 18 2RF fluticasone propionate [Allergy Relief (fluticasone)] 50 mcg/actuation spray,suspension 1 spray intranasal BID Qty: 16 2RF Rx Instructions: administer into each nostril 2x/day furosemide 40 mg tablet 40 mg PO DAILY 30 Days Qty: 30 2RF metoprolol succinate 25 mg tablet extended release 24 hr 25 mg PO DAILY Qty: 30 2RF Eliquis 5 mg tablet 5 mg PO BID Qty: 60 2RF ondansetron 4 mg tablet,disintegrating 4 mg PO Q6H PRN (Reason: nausea and vomiting) Qty: 20 0RF alendronate 10 mg tablet 10 mg PO DAILY Qty: 30 2RF dicyclomine 10 mg capsule 10 mg PO TID Qty: 90 12RF Rx Instructions: Please take 1 capsule by mouth 3 times daily before meals pantoprazole 40 mg tablet,delayed release (DR/EC) See Rx Instructions .ROUTE .COMPLEX Qty: 60 2RF Dose Instruction: TAKE ONE TABLET BY MOUTH TWICE DAILY Rx Instructions: TAKE ONE TABLET BY MOUTH TWICE DAILY lisinopril 20 mg tablet 20 mg PO DAILY oxybutynin chloride 5 mg tablet 5 mg PO DAILY Referrals Follow up/Referrals: Colin Smith MD [Primary Care Provider, Family Practice] - See instructions Activity Restrictions/Add. Instructions Additional Instructions/Restrictions: You were found to have a mild pneumonia. Take antibiotics as prescribed. Also encourage you to follow-up with your primary care physician is your blood pressure continues to be elevated. Follow-up with your muck farmer. If you develop any new or worsening symptoms, or if you become concerned for your help for any reason, return to the emergency department for evaluation Clinical Impressions Clinical Impression: Pneumonia, Chest pain Print Language Print Language: Lithuanian Discharge ED Provider: Dallas Valles HPI <Willian Prajapati MD - Last Filed: 05/08/25 15:04> General Chief Complaint: Chest Pain Stated Complaint: SOA Time Seen by Provider: 05/08/25 14:16 History of Present Illness HPI narrative: Patient is a 69-year-old female with multiple comorbidities currently undergoing monitoring for paroxysmal atrial fibrillation who presents emergency department for evaluation of chest pain. Onset was acute over the last 24 hours substernal left central border radiating through to her back and down her left arm. No trauma. She had some transient reported swelling of her left hand this morning which resolved prior to arrival. No abdominal pain reported although the pain is low in her sternum. She has a slight cough but nothing significant. No other acute complaints at this time. Please note that above description of symptoms, in this electronic medical record under categorization of recalled from ER triage doctor by RN are reflective of an initial nursing assessment, however, is not reflective of my full history and physical exam that was personally taken and clarified. Consequentially, this preceding description of symptoms, which may include the patient's categorized chief complaint in the EMR, do not reflect my personal clinical impression, and the ultimate description of history of present illness and patient stated complaints should be deferred to this section of the note. Unless stated otherwise or congruent with this section of the note, additional signs, symptoms, or incongruence should be interpreted as inaccurate with my clinical impression. Related Data Home Medications ?Medication ?Instructions ?Recorded ?Confirmed aspirin 81 mg tablet,delayed 81 mg PO DAILY 09/27/24 0 05/07/25 release (Adult Aspirin Regimen) lisinopril 20 mg tablet 20 mg PO DAILY 03/03/2504/15 oxybutynin chloride 5 mg tablet 5 mg PO DAILY 03/04/25 05/07/25 Previous Rx's ?Medication ?Instructions ?Recorded albuterol sulfate 90 mcg/actuation 2 puff inhalation Q 4-6H PRN 12/03/24 aerosol inhaler shortness of breath or wheez ing #18 grams fluticasone propionate 50 1 spray intranasal BID #16 g anatoliy 01/10/25 mcg/actuation nasal spray,suspension (Allergy Relief (fluticasone)) alendronate 10 mg tablet 10 mg PO DAILY #30 tabs 02/11 09/07 furosemide 40 mg tablet 40 mg PO DAILY 30 days #30 t abs 03/03/25 escitalopram oxalate 20 mg tablet 20 mg PO DAILY #30 t abs 03/21/25 (Lexapro) ondansetron 4 mg disintegrating 4 mg PO Q6H PRN nausea and 03/24/25 tablet vomiting #20 tabs dicyclomine 10 mg capsule 10 mg PO TID #90 caps apixaban 5 mg tablet (Eliquis) 5 mg PO BID #60 tabs metoprolol succinate 25 mg 25 mg PO DAILY #30 tabs tablet,extended release 24 hr trazodone 100 mg tablet 100 mg PO DAILY #30 tabs pantoprazole 40 mg tablet,delayed See Rx Instructions .Route 05/05/25 release .COMPLEX #60 tabs azithromycin 250 mg tablet 250 mg PO DAILY 4 days #4 t abs 05/08/25 Allergies Allergy/AdvReac Type Severity Reaction Status Date / Time cephalexin (From Keflex) Allergy Severe Difficulty Verified 05/07/25 09:19 Breathing prochlorperazine Allergy Severe Swelling Verified 05/07/25 09:19 (PROCHLORPERAZINE) of Lip/Tongue/Throat codeine (CODEINE) Allergy Unknown VOMITING / Verified 05/07/25 09:19 NAUSEA prednisone (PREDNISONE) Allergy Unknown BP ISSUES Verified 05/07/25 09:19 promethazine (From PHENERGAN) Allergy Unknown Unknown Verified 05/07/25 09:19 allergy reaction metoclopramide (From Reglan) Allergy Nausea Verified 05/07/25 09:19 hydroxyzine (From Vistaril) AdvReac Hives Verified 05/07/25 09:19 [facility] <Willian Prajapati MD - Last Filed: 05/08/25 15:04> [facility] Disclaimer: The information contained in this section may have been updated after the patient was seen, as this information can be updated by other users. Medical History New onset a-fib Dyspepsia Dysphagia Common bile duct dilation Abnormal findings on imaging of biliary tract Upper respiratory tract infection Recurrent acute otitis media of right ear Nausea & vomiting Continue the promethazine see above. Chest pain Near syncope Chronic abdominal pain Anxiety related tremor High globulin level Shakiness SOB (shortness of breath) Palpitations Bradycardia Screening for colon cancer Breast cancer screening by mammogram Mammogram done 10/2024 Crohn's disease Community acquired pneumonia Chronic kidney disease (HFpEF) heart failure with preserved ejection fraction Abnormal chest CT Schatzki's ring Sinus bradycardia Insomnia Depression Anxiety Osteoporosis Allergies History of anemia History of constipation Sphincter of Oddi dysfunction HTN (hypertension) Bilateral lower extremity edema Surgical History Lipoma of back Status post cholecystectomy H/O oral surgery History of appendectomy H/O total hysterectomy History of esophagogastroduodenoscopy (EGD) History of arthroscopy of right knee Status post knee surgery Status post right knee arthroscopy with partial medial meniscectomy date of surgery May 16, 2022 History of intestinal surgery Family History Other Cancer Heart attack Social History Smoking Status: Never smoker second hand exposure: No alcohol intake: never substance use type: denies use current occupational status: disabled Travel in the last 8 weeks?: None household members: none housing: apartment number of children: 2 current occupational exposures/hazards: No caffeine: Yes Have you lived/traveled outside US in past 30 days?: No Contact w/someone who lives/traveled outside US past 30 days?: No Exposure to someone with infectious disease in past 14 days?: No Do you have a fever (greater than 100.4 F or 38 C)?: No Have you tested positive for COVID-19?: No Exposed to someone with COVID-19 in past 14 days?: No Do you have a sore throat?: No Do you have a cough?: No Do you have any weakness?: No Do you have any diarrhea?: No Are you experiencing any unusual bleeding?: No Do you have any muscle aches/pain?: No Do you have any abdominal pain?: No Are you experiencing loss of taste or smell?: No Other Medical History Have you received the Flu Vaccine for this season: No Have you received the Pneumonia Vaccine: Yes <Willian Prajapati MD - Last Filed: 05/08/25 15:04> ROS Obtained: Yes Systems reviewed as appropriate & no additional complaints except as documented Physical Exam <Willian Prajapati MD - Last Filed: 05/08/25 15:04> General General appearance: alert and in no apparent distress Head Head exam: atraumatic and normocephalic Eye Eye exam: Present PERRL and EOMI ENT ENT exam: Present mucous membranes moist Neck Neck exam: Present normal inspection Chest Chest inspection: Present normal inspection and symmetric chest wall rise Respiratory Respiratory exam: Present normal lung sounds bilaterally; Absent respiratory distress Cardiovascular Cardiovascular exam: Present regular rate and normal rhythm Abdominal Exam Abdominal exam: Present soft; Absent tenderness Extremities Exam Extremities exam: Present normal inspection and other (No asymmetric swelling of the upper extremities, palpable radial pulses bilaterally.) Neurological Exam Neurological exam: Present alert Psychiatric Psychiatric exam: Present normal affect Skin Skin exam: Present warm and dry HEART Score <Willian Prajapati MD - Last Filed: 05/08/25 15:04> HEART Score HEART Score assessment performed?: Yes History (anamnesis): Highly suspicious ECG: Normal Age: >65 years Risk factors: 1-2 risk factors Troponin: </= normal limit HEART Score: 5 <Dallas Valles MD - Last Filed: 05/08/25 19:21> HEART Score HEART Score: 5 Critical Care <Willian Prajapati MD - Last Filed: 05/08/25 15:04> Critical Care Time Critical Care Time: No Medical Decision Making <Willian Prajapati MD - Last Filed: 05/08/25 15:04> Grant Inquiry Pt receiving controlled substance: No Vital Signs Vital Signs: 05/08/25 14:18 05/08/25 14:23 05/08/25 14:30 Temperature 98.1 F Temperature Source Oral Pulse Rate 52 L 46 L Pulse Rate [Left Radial] 46 L Respiratory Rate 20 Blood Pressure 172/78 H Blood Pressure [Right Arm] 172/78 H Blood Pressure Mean [Right Arm] 109 02 Sat by Pulse Oximetry 97 98 Oxygen Delivery Method Room Air 05/08/25 14:30 05/08/25 15:00 05/08/25 15:31 Temperature Temperature Source Pulse Rate 45 L 52 L 49 L Pulse Rate [Left Radial] Respiratory Rate Blood Pressure 163/73 H 162/80 H 187/73 H Blood Pressure [Right Arm] Blood Pressure Mean [Right Arm] 02 Sat by Pulse Oximetry 95 95 96 Oxygen Delivery Method 05/08/25 16:01 05/08/25 16:30 05/08/25 16:46 Temperature Temperature Source Pulse Rate 50 L 44 L 55 L Pulse Rate [Left Radial] Respiratory Rate 15 15 24 Blood Pressure 165/71 H 161/70 H 190/87 H Blood Pressure [Right Arm] Blood Pressure Mean [Right Arm] 02 Sat by Pulse Oximetry 96 100 92 L Oxygen Delivery Method 05/08/25 17:01 05/08/25 17:26 05/08/25 17:30 Temperature Temperature Source Pulse Rate 50 L 47 L 48 L Pulse Rate [Left Radial] Respiratory Rate 14 Blood Pressure 158/77 H 175/80 H 181/88 H Blood Pressure [Right Arm] Blood Pressure Mean [Right Arm] 02 Sat by Pulse Oximetry 93 L 97 96 Oxygen Delivery Method Lab Data Labs: Lab Results 05/08/25 15:15: WBC 5.9, RBC 3.26 L, Hgb 9.3 L, Hct 28.7 L, MCV 88.0, MCH 28.5, MCHC 32.4, RDW 13.8, Plt Count 208, MPV 11.7 H, Neut % (Auto) 58.0, Lymph % (Auto) 27.7, Giles % (Auto) 8.6, Eos % (Auto) 4.7, Baso % (Auto) 0.8, Neut # (Auto) 3.4, Lymph # (Auto) 1.6, Giles # (Auto) 0.5, Eos # (Auto) 0.3, Baso # (Auto) 0.1, Sodium 137, Potassium 4.0, Chloride 103, Carbon Dioxide 30, Anion Gap 8.0, BUN 22 H, Creatinine 1.00, Estimated Creat Clear 68, Estimated GFR 55 L , Est GFR ( Amer) 67, Glucose 97, Calcium 8.7, Total Bilirubin 0.3, AST 26, ALT 10 L, Alkaline Phosphatase 49, Troponin I < 0.01, Total Protein 6.3, Albumin 3.5, Globulin 2.8, Albumin/Globulin Ratio 1.3, Lipase 163 05/08/25 17:45: Troponin I < 0.01 05/08/25 15:15 05/08/25 15:15 Response Orders (Tests/Meds): ED MEDICATIONS Discontinued Medications Generic Name Dose Route Start Last Admin Trade Name Freq PRN Reason Stop Dose Admin Acetaminophen 1,000 mg 05/08/25 17:28 05/08/25 18:11 Acetaminophen 500mg Tab PO 05/08/25 17:29 1,000 mg ONCE ONE Administration Aspirin 324 mg 05/08/25 14:22 05/08/25 15:37 Aspirin 81mg Chewable Tablet PO 05/08/25 14:23 324 mg ONCE ONE Administration Azithromycin 500 mg 05/08/25 18:24 05/08/25 18:47 Azithromycin 250mg Tablet PO 05/08/25 18:25 500 mg ONCE ONE Administration Iopamidol 80 ml 05/08/25 14:52 05/08/25 14:53 Iopamidol-370 (76%);100ml Bottle IV 05/08/25 14:53 80 ml ONCE ONE Administration Iopamidol 80 ml 05/08/25 16:43 05/08/25 16:46 Iopamidol-370 (76%);100ml Bottle IV 05/08/25 16:44 Not Given ONCE ONE Morphine Sulfate 4 mg 05/08/25 14:22 05/08/25 15:37 Morphine 4mg/Ml Syringe IV 05/08/25 14:23 4 mg ONCE ONE Administration Ondansetron HCl 4 mg 05/08/25 14:22 05/08/25 15:37 Ondansetron 4mg/2ml Vial IV 05/08/25 14:23 4 mg ONCE ONE Administration Sodium Chloride 10 ml 05/08/25 14:52 05/08/25 14:53 0.9 % Sodium Chloride 50 Ml Vial IV 05/08/25 14:53 10 ml ONCE ONE Administration Sodium Chloride 50 ml 05/08/25 16:43 05/08/25 16:47 0.9 % Sodium Chloride 50 Ml Vial IV 05/08/25 16:44 40 ml ONCE ONE Administration Sodium Chloride 10 ml 05/08/25 16:43 05/08/25 16:47 Sodium Chloride 0.9% 10ml Syr (Rad Only) IV 05/08/25 16:44 Not Given ONCE ONE ORDERS Category Date Time Status CT angio chest - dissection Stat Cat Scan 05/08/25 14:22 Completed CBC w/Auto Diff [Complete Blood Count Auto Diff] Stat Lab 05/08/25 15:15 Completed CMP [Comprehensive Metabolic Panel] Stat Lab 05/08/25 15:15 Completed Lipase Stat Lab 05/08/25 15:15 Completed Trop I [Troponin I] Stat Lab 05/08/25 15:15 Completed Troponin I Q3H Lab 05/08/25 17:45 Completed Troponin I Q3H Lab 05/08/25 20:30 Ordered ECG Data Tracing #1: ECG Narrative: Independently inter by me rate is 48, rhythm is irregular, slow A-fib, no ST elevation in anatomical contiguous leads, QTc 423 MDM Narrative Medical Decision Narrative: In summary patient is a 69-year-old female past medical history of scrota above who presents emergency department for evaluation of chest pain radiating down her left arm. Patient is hemodynamically stable nontoxic-appearing arrival, afebrile. Differential diagnosis includes ACS, noncardiac chest pain, pneumonia, dissection, among others. No asymmetric swelling of left arm compared to the right to suggest DVT. Workup in totality will be conducted with hematologic labs CT angio chest dissection protocol EKG serial troponins. Initial inventions include aspirin, morphine, Zofran. Workup and imaging largely pending at time of transfer of care to the oncoming physician, Dr. Valles. <Dallas Valles MD - Last Filed: 05/08/25 19:21> Vital Signs Vital Signs: 05/08/25 14:18 05/08/25 14:23 05/08/25 14:30 Temperature 98.1 F Temperature Source Oral Pulse Rate 52 L 46 L Pulse Rate [Left Radial] 46 L Respiratory Rate 20 Blood Pressure 172/78 H Blood Pressure [Right Arm] 172/78 H Blood Pressure Mean [Right Arm] 109 02 Sat by Pulse Oximetry 97 98 Oxygen Delivery Method Room Air 05/08/25 14:30 05/08/25 15:00 05/08/25 15:31 Temperature Temperature Source Pulse Rate 45 L 52 L 49 L Pulse Rate [Left Radial] Respiratory Rate Blood Pressure 163/73 H 162/80 H 187/73 H Blood Pressure [Right Arm] Blood Pressure Mean [Right Arm] 02 Sat by Pulse Oximetry 95 95 96 Oxygen Delivery Method 05/08/25 16:01 05/08/25 16:30 05/08/25 16:46 Temperature Temperature Source Pulse Rate 50 L 44 L 55 L Pulse Rate [Left Radial] Respiratory Rate 15 15 24 Blood Pressure 165/71 H 161/70 H 190/87 H Blood Pressure [Right Arm] Blood Pressure Mean [Right Arm] 02 Sat by Pulse Oximetry 96 100 92 L Oxygen Delivery Method 05/08/25 17:01 05/08/25 17:26 05/08/25 17:30 Temperature Temperature Source Pulse Rate 50 L 47 L 48 L Pulse Rate [Left Radial] Respiratory Rate 14 Blood Pressure 158/77 H 175/80 H 181/88 H Blood Pressure [Right Arm] Blood Pressure Mean [Right Arm] 02 Sat by Pulse Oximetry 93 L 97 96 Oxygen Delivery Method Lab Data Labs: Lab Results 05/08/25 15:15: WBC 5.9, RBC 3.26 L, Hgb 9.3 L, Hct 28.7 L, MCV 88.0, MCH 28.5, MCHC 32.4, RDW 13.8, Plt Count 208, MPV 11.7 H, Neut % (Auto) 58.0, Lymph % (Auto) 27.7, Giles % (Auto) 8.6, Eos % (Auto) 4.7, Baso % (Auto) 0.8, Neut # (Auto) 3.4, Lymph # (Auto) 1.6, Giles # (Auto) 0.5, Eos # (Auto) 0.3, Baso # (Auto) 0.1, Sodium 137, Potassium 4.0, Chloride 103, Carbon Dioxide 30, Anion Gap 8.0, BUN 22 H, Creatinine 1.00, Estimated Creat Clear 68, Estimated GFR 55 L , Est GFR ( Amer) 67, Glucose 97, Calcium 8.7, Total Bilirubin 0.3, AST 26, ALT 10 L, Alkaline Phosphatase 49, Troponin I < 0.01, Total Protein 6.3, Albumin 3.5, Globulin 2.8, Albumin/Globulin Ratio 1.3, Lipase 163 05/08/25 17:45: Troponin I < 0.01 Response Orders (Tests/Meds): ED MEDICATIONS Discontinued Medications Generic Name Dose Route Start Last Admin Trade Name Morrisq PRN Reason Stop Dose Admin Acetaminophen 1,000 mg 05/08/25 17:28 05/08/25 18:11 Acetaminophen 500mg Tab PO 05/08/25 17:29 1,000 mg ONCE ONE Administration Aspirin 324 mg 05/08/25 14:22 05/08/25 15:37 Aspirin 81mg Chewable Tablet PO 05/08/25 14:23 324 mg ONCE ONE Administration Azithromycin 500 mg 05/08/25 18:24 05/08/25 18:47 Azithromycin 250mg Tablet PO 05/08/25 18:25 500 mg ONCE ONE Administration Iopamidol 80 ml 05/08/25 14:52 05/08/25 14:53 Iopamidol-370 (76%);100ml Bottle IV 05/08/25 14:53 80 ml ONCE ONE Administration Iopamidol 80 ml 05/08/25 16:43 05/08/25 16:46 Iopamidol-370 (76%);100ml Bottle IV 05/08/25 16:44 Not Given ONCE ONE Morphine Sulfate 4 mg 05/08/25 14:22 05/08/25 15:37 Morphine 4mg/Ml Syringe IV 05/08/25 14:23 4 mg ONCE ONE Administration Ondansetron HCl 4 mg 05/08/25 14:22 05/08/25 15:37 Ondansetron 4mg/2ml Vial IV 05/08/25 14:23 4 mg ONCE ONE Administration Sodium Chloride 10 ml 05/08/25 14:52 05/08/25 14:53 0.9 % Sodium Chloride 50 Ml Vial IV 05/08/25 14:53 10 ml ONCE ONE Administration Sodium Chloride 50 ml 05/08/25 16:43 05/08/25 16:47 0.9 % Sodium Chloride 50 Ml Vial IV 05/08/25 16:44 40 ml ONCE ONE Administration Sodium Chloride 10 ml 05/08/25 16:43 05/08/25 16:47 Sodium Chloride 0.9% 10ml Syr (Rad Only) IV 05/08/25 16:44 Not Given ONCE ONE ORDERS Category Date Time Status CT angio chest - dissection Stat Cat Scan 05/08/25 14:22 Completed CBC w/Auto Diff [Complete Blood Count Auto Diff] Stat Lab 05/08/25 15:15 Completed CMP [Comprehensive Metabolic Panel] Stat Lab 05/08/25 15:15 Completed Lipase Stat Lab 05/08/25 15:15 Completed Trop I [Troponin I] Stat Lab 05/08/25 15:15 Completed Troponin I Q3H Lab 05/08/25 17:45 Completed Troponin I Q3H Lab 05/08/25 20:30 Ordered MDM Narrative Medical Decision Narrative: In summary patient is a 69-year-old female past medical history of scrota above who presents emergency department for evaluation of chest pain radiating down her left arm. Patient is hemodynamically stable nontoxic-appearing arrival, afebrile. Differential diagnosis includes ACS, noncardiac chest pain, pneumonia, dissection, among others. No asymmetric swelling of left arm compared to the right to suggest DVT. Workup in totality will be conducted with hematologic labs CT angio chest dissection protocol EKG serial troponins. Initial inventions include aspirin, morphine, Zofran. Workup and imaging largely pending at time of transfer of care to the oncoming physician, Dr. Valles. Dallas Valles MD At the time my assumption of care, plan was to follow-up patient's workup including serial troponins Ultimately, patient's workup showed no leukocytosis, hemoglobin near baseline at 9.3, hematocrit 28.7. Platelets normal at 208. CMP unremarkable nonactionable. No GENNA. Liver enzymes unremarkable nonactionable. Initial troponin less than 0.01. Repeat troponin pending. Lipase normal at 163. CT imaging was interpreted by me personally. No pulmonary embolism. Patient does have dilated pulmonary arteries that could be surgical sales representative of pulmonary hypertension. Per radiology, mild interlobular septal thickening, which can be seen with pulmonary edema, infection or interstitial pneumonia in the acute setting. Given patient's cough, we will treat with azithromycin for possible pneumonia. Will give 500 mg here in the emergency department and 4 days of 250 mg daily. I discussed these results with the patient. I encouraged her to follow-up with cardiology and primary care due to her continued high blood pressure. She also states that when she is sleeping, she will wake up gasping for breath and I encouraged her to inquire about obtaining a sleep study for possible sleep apnea. Return precautions were given. All questions were answered. She demonstrated understanding and was in agreement this plan. She was then discharged from the emergency department in stable condition.
[2025-05-08] MEDS: 0.9 % SODIUM CHLORIDE 50 ML VIAL 10 ML IV (14:53)
[2025-05-08] MEDS: IOPAMIDOL-370 (76%);100ML BOTTLE 80 ML IV (14:53)
[2025-05-08 15:23] LABS: Hematocrit 28.7 % (37.0-47.0); Hemoglobin 9.3 g/dL (12.2-16.2); Immature Granulocytes % 0.2 %; Mean Corpuscular HGB Conc 32.4 g/dL (31.8-35.4); Mean Corpuscular Hemoglobin 28.5 pg (27.0-31.2); Mean Corpuscular Volume 88.0 fl (81-99); Nucleated Red Blood Cells % 0 %; Platelet Count 208 K/mm3 (142-424); Red Blood Count 3.26 M/mm3 (4.20-5.40); Red Cell Distribution Width-SD 44.5 fL; White Blood Count 5.9 K/mm3 (4.8-10.8)
[2025-05-08] MEDS: ONDANSETRON 4MG/2ML VIAL 4 MG IV (15:37)
[2025-05-08] MEDS: ASPIRIN 81MG CHEWABLE TABLET 324 MG PO (15:37)
[2025-05-08] MEDS: MORPHINE 4MG/ML SYRINGE 4 MG IV (15:37)
[2025-05-08 16:11] LABS: Albumin Level 3.5 g/dl (3.5-5.0); Chloride 103 mmol/L (98-107); Sodium 137 mmol/L (136-145)
[2025-05-08 16:12] LABS: Potassium 4.0 mmoL/L (3.5-5.1)
[2025-05-08 16:14] LABS: Alanine Aminotransferase 10 U/L (12-78); Albumin/Globulin Ratio 1.3 (1.1-1.8); Alkaline Phosphatase 49 U/L (38-126); Anion Gap 8.0 mEq/L (5-15); Aspartate Amino Transferase 26 U/L (14-36); Bilirubin,Total 0.3 mg/dl (0.2-1.3); Blood Urea Nitrogen 22 mg/dl (7-17); Calcium 8.7 mg/dl (8.4-10.2); Carbon Dioxide 30 mmol/L (22.0-30.0); Creatinine Clearance Estimated 68 mL/min (50-200); Creatinine,Serum 1.00 mg/dl (0.52-1.04); Estimated Glomerular Filt Rate 55 ml/min (>60); GFR (African American) 67 ML/MIN (>60); Globulin 2.8 g/dL (1.3-3.2); Glucose 97 mg/dl (74-100); Lipase 163 U/L (23-300); Total Protein,Serum 6.3 g/dl (6.3-8.2)
[2025-05-08 16:31] LABS: Troponin I < 0.01 ng/ml (0.00-0.034)
[2025-05-08] MEDS: 0.9 % SODIUM CHLORIDE 50 ML VIAL IV (16:47)
[2025-05-08] MEDS: ACETAMINOPHEN 500MG TAB 1000 MG PO (18:11)
[2025-05-08] MEDS: AZITHROMYCIN 250MG TABLET 500 MG PO (18:47)
[2025-05-08 19:04] LABS: Troponin I < 0.01 ng/ml (0.00-0.034)
== END 2025-05-08 19:28 | disposition home or self-care (01) ==
PROVIDERS: Emergency Medicine; Emergency Provider Student in an Organized Health Care Education/Training Program; PCP Family Medicine
DX: J18.9 Pneumonia, unspecified organism (principal); R07.9 Chest pain, unspecified; R06.02 Shortness of breath; I48.0 Paroxysmal atrial fibrillation; I10 Essential (primary) hypertension; Z79.01 Long term (current) use of anticoagulants
CPT/HCPCS: 71275; 80053; 83690; 84484; 85025; 93005; 96374; 96375; 99285; J1642; J2270; J2405; Q9967

== ENCOUNTER 2025-05-12 15:18 | Outpatient (CLI) | payer MEDICARE, OTHER, SELFPAY ==
--- OUTSIDE RECORDS SUMMARY | 2025-05-12 15:21 | XMS_ITS | Clinical Summary ---
Author Organization [facility] Address [address] [place] [id number] Care Team Providers Care Booth Cashier Name Role Phone Unavailable Primary Care Provider [...] therelease of HIV test results or diagnoses. [id number] Social History Tobacco Use Types Packs/Day Years Used Date Smoking Tobacco: Never Assessed Comments Unknown Sex and Gender Information Value Date Recorded Sex Assigned at Not on file Legal Sex Female 10:53 PM EST Gender Identity Not on file Sexual Orientation Not on file Plan of Treatment Not on file
--- OUTSIDE RECORDS SUMMARY | 2025-05-12 15:21 | XMS_ITS | Clinical Summary ---
Author Organization [facility] Address [address] [place] [address] Care Team Providers Care Laborer Salvage Name Role Phone Reuben Fong MD Primary Care Provider [phone] Social History Tobacco Use Types Packs/Day Years [...] (2 of 2 - PCV) 01/03/2019 01/03/2018 [id number] Vaccine (2 - season) 2025 11/18/2020 [facility]-Influenza [...] Insurance [employer] Care Teams Laborer Salvage Relationship Specialty Start Date End Date Reuben Fong MD [address] [place] [address] [place] Kr[place]ger [id number] PCP - General 12/25/20
--- NOTE | 2025-05-12 15:26 | XR_ITS ---
FINAL REPORT CLINICAL HISTORY: Left knee pain COMPARISON: 01/02/2022 FINDINGS: LEFT KNEE Three views demonstrate no acute fracture or dislocation. There is mild narrowing of the medial compartment joint space. There are small osteophytes along the undersurface of the patella. There is no joint effusion. No acute soft tissue abnormality is seen. IMPRESSION: Mild hypertrophic changes of osteoarthritis. Reviewed, Interpreted and Dictated by Bill Thomas MD Transcribed by Cristel Schwartz Authenticated and [facility]
--- NOTE | 2025-05-12 15:26 | XR_ITS ---
FINAL REPORT CLINICAL HISTORY: right knee pain COMPARISON: 01/02/2022 FINDINGS: RIGHT KNEE Three views demonstrate no acute fracture or dislocation. There is mild to moderate medial compartment joint space narrowing. There are moderate osteophytes along the undersurface of the patella. There is a small joint effusion. No acute soft tissue abnormality is seen. IMPRESSION: Mild to moderate hypertrophic changes of osteoarthritis. Small joint effusion. Reviewed, Interpreted and Dictated by Bill Thomas MD Transcribed by Cristel Schwartz Authenticated and [facility]
== END 2025-05-12 23:59 | disposition home or self-care (01) ==
LOC: RAD 15:20
PROVIDERS: PCP Family Medicine; Visit Provider Orthopaedic Surgery
DX: M17.11 Unilateral primary osteoarthritis, right knee (principal); M17.12 Unilateral primary osteoarthritis, left knee; M25.461 Effusion, right knee
CPT/HCPCS: 73562

== ENCOUNTER 2025-05-14 19:27 | Emergency (ER) | payer MEDICARE, OTHER, SELFPAY ==
[2025-05-14 19:41] VITALS: BP 179/84; PULSE 57; RESP 18; TEMP 36.6; O2SAT 95; BMI 30.9
--- OUTSIDE RECORDS SUMMARY | 2025-05-14 20:10 | XMS_ITS | Clinical Summary ---
Author Organization [facility] Address [address] [place] [id number] Care Team Providers Care Carpenter Streetcar Name Role Phone Unavailable Primary Care Provider [...] therelease of HIV test results or diagnoses. [id number] Social History Tobacco Use Types Packs/Day Years Used Date Smoking Tobacco: Never Assessed Comments Unknown Sex and Gender Information Value Date Recorded Sex Assigned at Not on file Legal Sex Female 10:53 PM EST Gender Identity Not on file Sexual Orientation Not on file Plan of Treatment Not on file
--- OUTSIDE RECORDS SUMMARY | 2025-05-14 20:10 | XMS_ITS | Clinical Summary ---
Author Organization Healthcare Address [address] [place] [address] Care Team Providers Care Robotic Maintenance Technician Name Role Phone Reuben Fong MD Primary Care Provider [phone] Social History Tobacco Use Types Packs/Day Years [...] (2 of 2 - PCV) 01/03/2019 01/03/2018 [id number] Vaccine (2 - season) 2025 11/18/2020 [facility]-Influenza [...] Insurance [employer]ICAID Care Teams Robotic Maintenance Technician Relationship Specialty Start Date End Date Reuben Fong MD [address] [place] [address] [place] [id number] PCP - General 12/25/20
--- NOTE | 2025-05-14 21:45 | PC.NURSE ---
Pt called back for room 9 at this time.
--- NOTE | 2025-05-14 22:10 | HMH.EDGENADL ---
Discharge Plan Disposition Patient Disposition: Home, Self-Care Condition: Good Prescriptions Prescriptions: No Action escitalopram oxalate [Lexapro] 20 mg tablet 20 mg PO DAILY Qty: 30 2RF trazodone 100 mg tablet 100 mg PO DAILY Qty: 30 2RF aspirin [Adult Aspirin Regimen] 81 mg tablet,delayed release (DR/EC) 81 mg PO DAILY albuterol sulfate 90 mcg/actuation HFA aerosol inhaler 2 puff inhalation Q4-6H PRN (Reason: shortness of breath or wheezing) Qty: 18 2RF fluticasone propionate [Allergy Relief (fluticasone)] 50 mcg/actuation spray,suspension 1 spray intranasal BID Qty: 16 2RF Rx Instructions: administer into each nostril 2x/day furosemide 40 mg tablet 40 mg PO DAILY 30 Days Qty: 30 2RF metoprolol succinate 25 mg tablet extended release 24 hr 25 mg PO DAILY Qty: 30 2RF Eliquis 5 mg tablet 5 mg PO BID Qty: 60 2RF Premarin 1.25 mg tablet 1.25 mg PO TID ondansetron 4 mg tablet,disintegrating 4 mg PO Q6H PRN (Reason: nausea and vomiting) Qty: 20 0RF alendronate 10 mg tablet 10 mg PO DAILY Qty: 30 2RF dicyclomine 10 mg capsule 10 mg PO TID Qty: 90 12RF Rx Instructions: Please take 1 capsule by mouth 3 times daily before meals pantoprazole 40 mg tablet,delayed release (DR/EC) See Rx Instructions .ROUTE .COMPLEX Qty: 60 2RF Dose Instruction: TAKE ONE TABLET BY MOUTH TWICE DAILY Rx Instructions: TAKE ONE TABLET BY MOUTH TWICE DAILY Rexulti 0.5 mg (7)- 1 mg (7) tablets,dose pack 0RF lisinopril 20 mg tablet 20 mg PO DAILY oxybutynin chloride 5 mg tablet 5 mg PO DAILY azithromycin 250 mg tablet 250 mg PO DAILY 4 Days Qty: 4 0RF Rx Instructions: start on day 2 of therapy Referrals Follow up/Referrals: Bishop Negron MD [Referring, Urology] - See instructions Colin Smith MD [Primary Care Provider, Family Practice] - See instructions Activity Restrictions/Add. Instructions Additional Instructions/Restrictions: You likely have some bladder dysfunction you need to follow-up with urology. I have sent you with a referral please call them. Clinical Impressions Clinical Impression: Bladder incontinence Instructions Patient Instructions: DI for Acute Abdominal Pain Print Language Print Language: [place] Discharge ED Provider: Chanelle Herrera General Adult HPI General Chief complaint: Abdominal Pain Stated complaint: Has blood in urine, no control over bladder Time Seen by Provider: 05/14/25 22:10 Mode of Arrival: Ambulatory Source of Information: Patient Description of Symptoms (Recalled from ER Triage Doc. by RN): Pt presents with c/o unable to control bladder. Reports to seeing Dr Bates x2 days ago with symptoms going on then abd being told she would be referred to urologist. Pt reports lower abd pain brought her to the ER today. Pt denies N/V or any other associated smyptoms. History of Present Illness HPI narrative: Patient is a 69-year-old female who presents to the emergency department with urinary symptoms and lower abdominal pain. Patient states that she has a low riding bladder, has been evaluated for possible surgery which has not been done. Patient reports worsening lower suprapubic abdominal pain and some inability to control her bladder. Patient denies any fevers vomiting. Patient denies any chest pain shortness of breath. Patient denies any headache or vision changes. Patient states that her abdominal pain is intermittent and will be a sharp stabbing pain that is mostly on the right side. Is currently pain free. Patient has had other abdominal surgeries. Patient was recently referred to urology. Related Data Home Medications ?Medication ?Instructions ?Recorded ?Confirmed aspirin 81 mg tablet,delayed 81 mg PO DAILY 09/27/24 05/12/25 release (Adult Aspirin Regimen) lisinopril 20 mg tablet 20 mg PO DAILY 03/03/25 05/12/25 oxybutynin chloride 5 mg tablet 5 mg PO DAILY 03/04/25 05/12/25 conjugated estrogens 1.25 mg 1.25 mg PO TID 05/12/25 05/12/25 tablet (Premarin) Previous Rx's ?Medication ?Instructions ?Recorded albuterol sulfate 90 mcg/actuation 2 puff inhalation Q4-6H PRN 12/03/24 aerosol inhaler shortness of breath or wheezing #18 grams fluticasone propionate 50 1 spray intranasal BID #16 grams 01/10/25 mcg/actuation nasal spray,suspension (Allergy Relief (fluticasone)) alendronate 10 mg tablet 10 mg PO DAILY #30 tabs 02/21/25 furosemide 40 mg tablet 40 mg PO DAILY 30 days #30 tabs 03/03/25 escitalopram oxalate 20 mg tablet 20 mg PO DAILY #30 tabs 03/21/25 (Lexapro) ondansetron 4 mg disintegrating 4 mg PO Q6H PRN nausea and 03/24/25 tablet vomiting #20 tabs dicyclomine 10 mg capsule 10 mg PO TID #90 caps 03/27/25 apixaban 5 mg tablet (Eliquis) 5 mg PO BID #60 tabs 04/10/25 metoprolol succinate 25 mg 25 mg PO DAILY #30 tabs 04/10/25 tablet,extended release 24 hr trazodone 100 mg tablet 100 mg PO DAILY #30 tabs 04/28/25 pantoprazole 40 mg tablet,delayed See Rx Instructions .Route 05/05/25 release .COMPLEX #60 tabs azithromycin 250 mg tablet 250 mg PO DAILY 4 days #4 tabs 05/08/25 Allergies Allergy/AdvReac Type Severity Reaction Status Date / Time cephalexin (From Keflex) Allergy Severe Difficulty Verified 05/12/25 14:04 Breathing prochlorperazine Allergy Severe Swelling Verified 05/12/25 14:04 (PROCHLORPERAZINE) of Lip/Tongue/Throat codeine (CODEINE) Allergy Unknown VOMITING / Verified 05/12/25 14:04 NAUSEA prednisone (PREDNISONE) Allergy Unknown BP ISSUES Verified 05/12/25 14:04 promethazine (From PHENERGAN) Allergy Unknown Unknown Verified 05/12/25 14:04 allergy reaction metoclopramide (From Reglan) Allergy Nausea Verified 05/12/25 14:04 hydroxyzine (From Vistaril) AdvReac Hives Verified 05/12/25 14:04 [facility] Disclaimer: The information contained in this section may have been updated after the patient was seen, as this information can be updated by other users. Medical History New onset a-fib Dyspepsia Dysphagia Common bile duct dilation Abnormal findings on imaging of biliary tract Upper respiratory tract infection Recurrent acute otitis media of right ear Nausea & vomiting Continue the promethazine see above. Chest pain Near syncope Chronic abdominal pain Anxiety related tremor High globulin level Shakiness SOB (shortness of breath) Palpitations Bradycardia Screening for colon cancer Breast cancer screening by mammogram Mammogram done 10/2024 Crohn's disease Community acquired pneumonia Chronic kidney disease (HFpEF) heart failure with preserved ejection fraction Abnormal chest CT Schatzki's ring Sinus bradycardia Insomnia Depression Anxiety Osteoporosis Allergies History of anemia History of constipation Sphincter of Oddi dysfunction HTN (hypertension) Bilateral lower extremity edema Surgical History Lipoma of back Status post cholecystectomy H/O oral surgery History of appendectomy H/O total hysterectomy History of esophagogastroduodenoscopy (EGD) History of arthroscopy of right knee Status post knee surgery Status post right knee arthroscopy with partial medial meniscectomy date of surgery May 16, 2022 History of intestinal surgery Family History Other Cancer Heart attack Social History Smoking Status: Never smoker second hand exposure: No alcohol intake: never substance use type: denies use current occupational status: disabled Travel in the last 8 weeks?: None household members: none housing: apartment number of children: 2 current occupational exposures/hazards: No caffeine: Yes Other Medical History Have you received the Flu Vaccine for this season: No Have you received the Pneumonia Vaccine: Yes ROS Obtained: Yes All systems reviewed & no additional complaints except as documented and Yes Systems reviewed as appropriate & no additional complaints except as documented Physical Exam General General appearance: alert and in no apparent distress Head Head exam: atraumatic, normocephalic and normal inspection Eye Eye exam: Present normal appearance, PERRL and EOMI; Absent scleral icterus ENT ENT exam: Present normal exam and normal external ear exam Neck Neck exam: Present normal inspection and full ROM Chest Chest inspection: Present normal inspection and symmetric chest wall rise Respiratory Respiratory exam: Present normal lung sounds bilaterally; Absent respiratory distress or wheezes Cardiovascular Cardiovascular exam: Present regular rate, normal rhythm and normal heart sounds Abdominal Exam Abdominal exam: Present soft, distention, tenderness (suprapubic) and other (CVA tenderness); Absent guarding or rebound Extremities Exam Extremities exam: Present normal inspection and full ROM Back Exam Back exam: Present normal inspection and full ROM Neurological Exam Neurological exam: Present alert and oriented X3 Psychiatric Psychiatric exam: Present normal affect and normal mood Skin Skin exam: Present warm and dry Medical Decision Making Medical Records Screening: Per USPSTF and CDC recommendations, given the prevalence of disease in our region, it is our hospital?s policy to screen for HIV and viral Hepatitis for all patients aged 18 and over and those with ongoing risk factors. Grant Inquiry Pt receiving controlled substance: No Vital Signs: 05/14/25 19:41 05/15/25 00:48 Temperature 98 F 98 F Temperature Source Oral Oral Pulse Rate 56 L Pulse Rate [Radial] 57 L Respiratory Rate 18 16 Blood Pressure 162/72 H Blood Pressure [Right Arm] 179/84 H Blood Pressure Mean [Right Arm] 115 Blood Pressure Position Sitting Blood Pressure Position [Right Arm] Sitting 02 Sat by Pulse Oximetry 95 Oxygen Delivery Method Room Air Room Air Lab Data Lab results reviewed: Yes I reviewed the patient's lab results. Lab Results 05/14/25 22:00: Urine Color Yellow, Urine Appearance Clear, Urine pH 6.5, Ur Specific [place] 1.020, Urine Protein Negative, Urine Glucose (UA) Negative, Urine Ketones Negative, Urine Blood Negative, Urine Nitrate Negative, Urine Bilirubin Negative, Urine Urobilinogen 0.2, Ur Leukocyte Esterase Negative, Urine RBC Occasional, Urine WBC 3-5, Ur Squamous Epith Cells 3-5 05/14/25 22:27: Sodium 138, Potassium 4.3, Chloride 103, Carbon Dioxide 26, Anion Gap 13.3, BUN 26 H, Creatinine 1.10 H, Estimated Creat Clear 62, Estimated GFR 49 L, Est GFR ( Amer) 60, Glucose 81, Calcium 9.1, Total Bilirubin 0.7, AST 36, ALT 14, Alkaline Phosphatase 45, Total Protein 7.3, Albumin 4.4, Globulin 2.9, Albumin/Globulin Ratio 1.5, Lipase 128 05/14/25 23:42: WBC 6.7, RBC 3.69 L, Hgb 10.6 L, Hct 32.7 L, MCV 88.6, MCH 28.7, MCHC 32.4, RDW 13.6, Plt Count 239, MPV 12.0 H, Neut % (Auto) 51.9, Lymph % (Auto) 32.5, Petroleum % (Auto) 9.1, Eos % (Auto) 5.7, Baso % (Auto) 0.7, Neut # (Auto) 3.5, Lymph # (Auto) 2.2, Petroleum # (Auto) 0.6, Eos # (Auto) 0.4, Baso # (Auto) 0.1 05/14/25 23:42 05/14/25 22:27 Orders (Tests/Meds): ED MEDICATIONS Discontinued Medications Generic Name Dose Route Start Last Admin Trade Name Dylon PRN Reason Stop Dose Admin Iopamidol 75 ml 05/14/25 23:56 05/14/25 23:57 Iopamidol-370 (76%);100ml Bottle IV 05/14/25 23:57 75 ml ONCE ONE Administration Ketorolac Tromethamine 30 mg 05/15/25 00:06 05/15/25 00:16 Ketorolac 30mg/Ml Vial IV 05/15/25 00:07 30 mg ONCE ONE Administration Ondansetron HCl 4 mg 05/15/25 00:06 05/15/25 00:15 Ondansetron 4mg/2ml Vial IV 05/15/25 00:07 4 mg ONCE ONE Administration Sodium Chloride 10 ml 05/14/25 23:56 05/14/25 23:57 Sodium Chloride 0.9% 10ml Syr (Rad Only) IV 05/14/25 23:57 10 ml ONCE ONE Administration ORDERS Category Date Time Status CT abdomen pelvis w con Stat Cat Scan 05/14/25 22:21 Completed CBC w/Auto Diff [Complete Blood Count Auto Diff] Stat Lab 05/14/25 23:42 Completed CMP [Comprehensive Metabolic Panel] Stat Lab 05/14/25 22:27 Completed Lipase Stat Lab 05/14/25 22:27 Completed UA [Urinalysis and Microscopic] Stat Lab 05/14/25 22:00 Completed Urine Culture Stat Micro 05/14/25 22:00 Received Medical Decision Narrative: Patient is a 69-year-old female who presented to the emergency department with suprapubic abdominal pain and issues controlling her bladder. On arrival, patient was hemodynamically stable with unremarkable vital signs. Differential includes but not limited to: Urinary tract infection, overactive bladder, intra-abdominal process, prolapsed uterus, amongst others. Patient's labs were reviewed and interpreted by myself: CBC showed no leukocytosis, hemoglobin was stable. CMP was unremarkable except for mildly elevated creatinine at 1.10. Lipase normal. UA showed no evidence of infection. CT scan of the abdomen was obtained which was reviewed and interpreted by myself and showed no acute pathology. On rediscussion with the patient, she states that she has an appointment on Monday with the urologist to discuss her issues with her bladder which was scheduled by her primary care provider. I recommended that she keep this appointment. Patient was otherwise discharged home in stable condition, return precautions were discussed. Critical Care Critical Care Time Critical Care Time: No
[2025-05-14 22:14] LABS: Microscopic, Urine URINE MICROSCOPIC (MICROSCOPIC)
[2025-05-14 22:15] LABS: Bilirubin,Urine Negative (Negative); Color,Urine YELLOW (Yellow); Glucose,Urine (UA) Negative (Negative); Ketones,Urine Negative (Negative); Leukocyte Esterase,Urine Negative (Negative); PH,Urine 6.5 (5.0-8.5); Protein,Urine Negative (Negative); Specific Gravity, Urine 1.020 (1.005-1.030); Urobilinogen,Urine 0.2 EU/dl (0.2)
--- NOTE | 2025-05-14 22:21 | CT_ITS ---
PROCEDURE INFORMATION: Exam: CT Abdomen And Pelvis With Contrast Exam date and time: 05/14/2025 11:58 PM Age: 69 years old Clinical indication: Abdominal pain; Additional info: Rlq tenderness TECHNIQUE: Imaging protocol: Computed tomography of the abdomen and pelvis with contrast. Radiation optimization: All CT scans at this facility use at least one of these dose optimization techniques: automated exposure control; mA and/or kV adjustment per patient size (includes targeted exams where dose is matched to clinical indication); or iterative reconstruction. Contrast material: ISOVUE; Contrast volume: 75 ml; Contrast route: IV; COMPARISON: CT ABDOMEN PELVIS W CON 04/10/2025 4:45 PM FINDINGS: Liver: Normal. No mass. Gallbladder and biliary ducts: Gallbladder is surgically absent. Mild biliary ductal dilation and minimal pneumobilia noted. Pancreas: Normal. No ductal dilation. Spleen: Normal. No splenomegaly. Adrenal glands: Normal. No mass. Kidneys and ureters: Normal. No hydronephrosis. Stomach and bowel: Unremarkable. No obstruction. No mucosal thickening. Appendix: No evidence of appendicitis. Intraperitoneal space: Unremarkable. No free air. No significant fluid collection. Vasculature: Unremarkable. No abdominal aortic aneurysm. Lymph nodes: Unremarkable. No enlarged lymph nodes. Urinary bladder: Unremarkable as visualized. Reproductive: Uterus is absent. No adnexal abnormality. Bones/joints: Unremarkable. No acute fracture. Soft tissues: Unremarkable. IMPRESSION: No acute abnormality
[2025-05-14 22:40] LABS: RBC,Urine Occasional #/hpf (0-3)
[2025-05-14 23:00] LABS: Alanine Aminotransferase 14 U/L (12-78); Albumin Level 4.4 g/dl (3.5-5.0); Albumin/Globulin Ratio 1.5 (1.1-1.8); Alkaline Phosphatase 45 U/L (38-126); Anion Gap 13.3 mEq/L (5-15); Aspartate Amino Transferase 36 U/L (14-36); Bilirubin,Total 0.7 mg/dl (0.2-1.3); Blood Urea Nitrogen 26 mg/dl (7-17); Calcium 9.1 mg/dl (8.4-10.2); Carbon Dioxide 26 mmol/L (22.0-30.0); Chloride 103 mmol/L (98-107); Creatinine Clearance Estimated 62 mL/min (50-200); Creatinine,Serum 1.10 mg/dl (0.52-1.04); Estimated Glomerular Filt Rate 49 ml/min (>60); GFR (African American) 60 ML/MIN (>60); Globulin 2.9 g/dL (1.3-3.2); Glucose 81 mg/dl (74-100); Lipase 128 U/L (23-300); Potassium 4.3 mmoL/L (3.5-5.1); Sodium 138 mmol/L (136-145); Total Protein,Serum 7.3 g/dl (6.3-8.2)
--- NOTE | 2025-05-14 23:50 | PC.NURSE ---
pt being transported to CT at this time
[2025-05-14 23:51] LABS: Hematocrit 32.7 % (37.0-47.0); Hemoglobin 10.6 g/dL (12.2-16.2); Immature Granulocytes % 0.1 %; Mean Corpuscular HGB Conc 32.4 g/dL (31.8-35.4); Mean Corpuscular Hemoglobin 28.7 pg (27.0-31.2); Mean Corpuscular Volume 88.6 fl (81-99); Nucleated Red Blood Cells % 0 %; Platelet Count 239 K/mm3 (142-424); Red Blood Count 3.69 M/mm3 (4.20-5.40); Red Cell Distribution Width-SD 44.3 fL; White Blood Count 6.7 K/mm3 (4.8-10.8)
[2025-05-14] MEDS: IOPAMIDOL-370 (76%);100ML BOTTLE 75 ML IV (23:57)
[2025-05-14] MEDS: SODIUM CHLORIDE 0.9% 10ML SYR (RAD ONLY) 10 ML IV (23:57)
[2025-05-15] MEDS: ONDANSETRON 4MG/2ML VIAL 4 MG IV (00:15)
[2025-05-15] MEDS: KETOROLAC 30MG/ML VIAL 30 MG IV (00:16)
[2025-05-15 00:48] VITALS: BP 162/72; PULSE 56; RESP 16; TEMP 36.6; O2SAT 96
== END 2025-05-15 00:49 | disposition home or self-care (01) ==
PROVIDERS: Emergency Provider Student in an Organized Health Care Education/Training Program; PCP Family Medicine
DX: R10.30 Lower abdominal pain, unspecified (principal); R32 Unspecified urinary incontinence
CPT/HCPCS: 74177; 80053; 81001; 83690; 85025; 87086; 96374; 96375; 99284; J1885; J2405; Q9967

== ENCOUNTER 2025-05-16 15:05 | Outpatient (CLI) | payer MEDICARE, OTHER, SELFPAY ==
--- OUTSIDE RECORDS SUMMARY | 2025-05-16 15:08 | XMS_ITS | Clinical Summary ---
Author Organization [facility] Address [address] [place] [id number] Care Team Providers Care Warehouse Shipping Clerk Name Role Phone Unavailable Primary Care Provider [...] therelease of HIV test results or diagnoses. [id number] Social History Tobacco Use Types Packs/Day Years Used Date Smoking Tobacco: Never Assessed Comments Unknown Sex and Gender Information Value Date Recorded Sex Assigned at Not on file Legal Sex Female 10:53 PM EST Gender Identity Not on file Sexual Orientation Not on file Plan of Treatment Not on file
--- OUTSIDE RECORDS SUMMARY | 2025-05-16 15:08 | XMS_ITS | Clinical Summary ---
Author Organization Healthcare Address [address] [place] [address] Care Team Providers Care Food And Beverage Coordinator Name Role Phone Reubne Fong MD Primary Care Provider [phone] Social History Tobacco Use Types Packs/Day Years [...] (2 of 2 - PCV) 01/03/2019 01/03/2018 [id number] Vaccine (2 - season) 2025 11/18/2020 [facility]-Influenza [...] Insurance [employer] MEDICAID Care Teams Food And Beverage Coordinator Relationship Specialty Start Date End Date Reuben Fong MD [address] [place] [address] [place] [address] PCP - General 12/25/20
--- NOTE | 2025-05-16 15:09 | XR_ITS ---
FINAL REPORT TECHNIQUE: Chest PA & Lateral CLINICAL HISTORY: pneumonia follow up COMPARISON: 04/10/2025 FINDINGS: 2 views of the chest were performed. The heart size is normal. Left chest port is present with the tip in the SVC. The mediastinum is within normal limits. Mild chronic changes are seen in the lung bases. There is no acute cardiopulmonary process. There are no pleural effusions. There is no pneumothorax. The bony thorax appears intact. IMPRESSION: No acute cardiopulmonary process. Reviewed, Interpreted and Dictated by Bill Thomas MD Transcribed by Amarilys Bates Authenticated and [facility]
[2025-05-16 20:01] LABS: Coronavirus 19, PCR Not Detected (NotDetected); Influenza A, PCR Not Detected (NotDetected); Influenza B, PCR Not Detected (NotDetected)
== END 2025-05-16 23:59 | disposition home or self-care (01) ==
LOC: RAD 15:06
PROVIDERS: PCP Family Medicine; Visit Provider Family Medicine
DX: J18.9 Pneumonia, unspecified organism (principal); R68.89 Other general symptoms and signs
CPT/HCPCS: 71046; 87636

== ENCOUNTER 2025-05-22 10:58 | Outpatient (CLI) | payer MEDICARE, OTHER, SELFPAY | END 2025-05-22 23:59 | disposition home or self-care (01) | LOC: INF 11:00 | PROVIDERS: PCP Family Medicine; Visit Provider Surgery | DX: Z48.812 Encounter for surgical aftercare following surgery on the circulatory system (principal); Z95.828 Presence of other vascular implants and grafts | CPT/HCPCS: 96523; J1642 ==

== ENCOUNTER 2025-05-27 13:08 | Outpatient (CLI) | payer MEDICARE, OTHER, SELFPAY ==
--- OUTSIDE RECORDS SUMMARY | 2025-05-27 13:12 | XMS_ITS | Clinical Summary ---
Author Organization [facility] Address [address] [place] [id number] Care Team Providers Care Scrap Baler Name Role Phone Unavailable Primary Care Provider [...] therelease of HIV test results or diagnoses. [id number] Social History Tobacco Use Types Packs/Day Years Used Date Smoking Tobacco: Never Assessed Comments Unknown Sex and Gender Information Value Date Recorded Sex Assigned at Not on file Legal Sex Female 10:53 PM EST Gender Identity Not on file Sexual Orientation Not on file Plan of Treatment Not on file
--- NOTE | 2025-05-27 13:30 | US_ITS ---
FINAL REPORT TECHNIQUE: Sonographic images of the kidneys and retroperitoneum were obtained in the longitudinal and transverse planes. CLINICAL HISTORY: URINARY INCONT FINDINGS: The right kidney measures 10.8 cm in cjqn-[id number] length. No hydronephrosis, mass, or stone. There is cortical thinning. The left kidney measures 11.2 cm in [id number]-[id number] length. No hydronephrosis, mass, or stone. There is a small cortical cyst. There is normal echogenicity and thickness. IMPRESSION: Cortical thinning of the right kidney. Reviewed, Interpreted and Dictated by Angeline Lee MD Transcribed by Monae Francis Authenticated and . [facility]
--- NOTE | 2025-05-27 13:38 | XR_ITS ---
FINAL REPORT CLINICAL HISTORY: Overactive bladder..pre-op for a procedure on monday FINDINGS: A single supine view the abdomen was obtained. The bowel gas pattern is nonspecific but nonobstructive. Calcifications in the pelvis likely represent phleboliths. Osseous structures are within normal limits. IMPRESSION: Nonspecific but nonobstructive bowel gas pattern. Reviewed, Interpreted and Dictated by Angeline Lee MD Transcribed by Monae Francis Authenticated and [facility]
== END 2025-05-27 23:59 | disposition home or self-care (01) ==
LOC: RAD 13:10
PROVIDERS: PCP Family Medicine; Visit Provider Urology
DX: N28.89 Other specified disorders of kidney and ureter (principal); N32.81 Overactive bladder; R93.3 Abnormal findings on diagnostic imaging of other parts of digestive tract
CPT/HCPCS: 74018; 76770

== ENCOUNTER 2025-05-30 07:49 | Day surgery (SDC) | payer MEDICARE, OTHER, SELFPAY ==
[2025-05-29 13:12] VITALS: BMI 29.0
[2025-05-30 08:00] VITALS: BP 166/77; PULSE 50; RESP 18; TEMP 36.6; O2SAT 95
--- NOTE | 2025-05-30 08:30 | P.PCN_ITS ---
[facility] Procedure Note Date: 05/30/25 Time: 08:30 Procedure Note:: Chart review: The patient's renal ultrasound shows right cortical renal thinning. She is troubled with refractory urge incontinence and stress incontinence. Her postvoid residual urine is 6 cc. She goes through 3 diapers a day which are saturated. She has been on Estrace vaginal cream and oxybutynin. Pre-op diagnosis: Refractory overactive bladder/CHANEL Postop diagnosis: Refractory overactive bladder/CHANEL Operative note: Patient was brought to the cystoscopy suite she was prepped and draped in the standard fashion. She underwent catheterization for culture and sensitivity. She then underwent flexible cystoscopy. Her urethra was normal. The bladder itself is [place] pink in color throughout without evidence of bladder stone tumor hemorrhage or infection. The ureteral openings are normal bilaterally. Endoscopically from the urethra meatus the patient has a open sphincter. She does leak with cough. I do not have urodynamics but she does not have a very low leak point pressure. She would like an opinion at to consider further surgical management of CHANEL. We will make those arrangements.
[2025-05-30] MEDS: 0.9 % SODIUM CHLORIDE 500 ML 25 ML IV (08:36)
[2025-05-30 09:10] VITALS: BP 177/90; PULSE 48; RESP 16; TEMP 36.2; O2SAT 95
[2025-05-30 10:10] VITALS: BP 177/90; PULSE 48; RESP 16; TEMP 36.2; O2SAT 95
[2025-05-30 12:55] LABS: Microscopic,Cath URINE MICROSCOPIC (MICROSCOPIC)
[2025-05-30 13:30] LABS: Appearance,Urine/Cath CLEAR (Clear); Bilirubin,Cath Negative (Negative); Blood, Urine/Cath Negative (Negative); Color,Urine/Cath YELLOW (Yellow); Glucose,Urine/Cath (UA) Negative (Negative); Ketones,Urine/Cath Negative (Negative); Leukocyte Esterase,Cath Negative (Negative); Nitrate,Cath Negative (Negative); PH,Urine/Cath 6.0 (5.0-8.5); Protein,Urine/Cath Negative (Negative); Specific Gravity, Urine/Cath 1.020 (1.005-1.030); Urobilinogen,Cath 0.2 EU/dl (0.2)
[2025-05-30 14:16] LABS: WBC,Urine/Cath Occasional #/hpf (0-3)
[2025-05-30 14:17] LABS: Transitional Epi Cells,Ur/Cath OCC #/lpf (0-3)
== END 2025-05-30 09:10 | disposition home or self-care (01) ==
PROVIDERS: PCP Family Medicine; Visit Provider Urology
PROC: 0TJB8ZZ Inspection of Bladder, Via Natural or Artificial Opening Endoscopic (ICD-10-PCS; CPT 52000; principal; 2025-05-30 08:45)
DX: N39.3 Stress incontinence (female) (male) (principal); N32.81 Overactive bladder; K50.90 Crohn's disease, unspecified, without complications; I10 Essential (primary) hypertension; F32.A Depression, unspecified; F41.9 Anxiety disorder, unspecified; M81.0 Age-related osteoporosis without current pathological fracture
CPT/HCPCS: 52000; 81001; J7040

== ENCOUNTER 2025-05-31 15:48 | Emergency (ER) | payer MEDICARE, OTHER, SELFPAY ==
[2025-05-31] VITALS (9 sets, daily range): BP systolic 155–208; BP diastolic 75–94; PULSE 47–61; RESP 16–20; TEMP 36.8–37; O2SAT 93–98; BMI 28.8
--- NOTE | 2025-05-31 15:58 | CT_ITS ---
PROCEDURE INFORMATION: Exam: CT Abdomen And Pelvis With Contrast Exam date and time: 05/31/2025 7:32 PM Age: 69 years old Clinical indication: Abdominal pain; Additional info: Pain after cystoscopy TECHNIQUE: Imaging protocol: Computed tomography of the abdomen and pelvis with contrast. Radiation optimization: All CT scans at this facility use at least one of these dose optimization techniques: automated exposure control; mA and/or kV adjustment per patient size (includes targeted exams where dose is matched to clinical indication); or iterative reconstruction. Contrast material: ISOVUE; Contrast volume: 75 ml; Contrast route: IV; COMPARISON: CT ABDOMEN PELVIS W CON 05/14/2025 11:58 PM FINDINGS: Liver: Normal. No mass. Gallbladder and biliary ducts: Status post cholecystectomy. Small amount of pneumobilia seen in the left liver lobe Pancreas: Mild pancreatic atrophy Spleen: Normal. No splenomegaly. Adrenal glands: Normal. No mass. Kidneys and ureters: Normal. No hydronephrosis. Stomach and bowel: Increased stool burden through the ascending colon and transverse colon Appendix: No evidence of appendicitis. Intraperitoneal space: Unremarkable. No free air. No significant fluid collection. Vasculature: Unremarkable. No abdominal aortic aneurysm. Lymph nodes: Unremarkable. No enlarged lymph nodes. Urinary bladder: Tiny amount of gas is present in the urinary bladder. Reproductive: Hysterectomy Bones/joints: Unremarkable. No acute fracture. Soft tissues: Left inguinal fatty hernia IMPRESSION: 1. Mild constipation 2. Small amount of gas in the urinary bladder can be related to recent instrumentation or infection. No hydronephrosis. 3. Otherwise unremarkable exam.
--- OUTSIDE RECORDS SUMMARY | 2025-05-31 16:06 | XMS_ITS | Clinical Summary ---
Author Organization Healthcare Address [address] [place] [address] Care Team Providers Care Crumb Packer Name Role Phone Reuben Fong MD Primary Care Provider [phone] Social History Tobacco Use Types Packs/Day Years [...] (2 of 2 - PCV) 01/03/2019 01/03/2018 [id number] Vaccine (2 - season) 2025 11/18/2020 [facility]-Influenza [...] Insurance [employer] MEDICAID Care Teams Crumb Packer Relationship Specialty Start Date End Date Reuben Fong MD [address] [place] [address] [place] [address] PCP - General 12/25/20
[2025-05-31 16:38] LABS: Microscopic, Urine URINE MICROSCOPIC (MICROSCOPIC)
[2025-05-31 16:40] LABS: Bilirubin,Urine Negative (Negative); Color,Urine YELLOW (Yellow); Glucose,Urine (UA) Negative (Negative); Ketones,Urine Negative (Negative); Leukocyte Esterase,Urine Negative (Negative); PH,Urine 6.0 (5.0-8.5); Protein,Urine Negative (Negative); Specific Gravity, Urine >= 1.030 (1.005-1.030); Urobilinogen,Urine 0.2 EU/dl (0.2)
[2025-05-31 17:08] LABS: Bacteria,Urine Trace /lpf; Squamous Epithelial Cell,Urine Occasional #/hpf (0-5); WBC,Urine Occasional #/hpf (0-3)
--- NOTE | 2025-05-31 17:23 | PC.NURSE ---
I attempted x 2 to access patient's port. Unsuccessful. Another nurse attempted and also attempted IV access x 3 with no success. supervisor shearing contacted, states she will come attempt to access.
[2025-05-31 18:42] LABS: Hematocrit 29.8 % (37.0-47.0); Hemoglobin 9.7 g/dL (12.2-16.2); Immature Granulocytes % 0.3 %; Mean Corpuscular HGB Conc 32.6 g/dL (31.8-35.4); Mean Corpuscular Hemoglobin 28.7 pg (27.0-31.2); Mean Corpuscular Volume 88.2 fl (81-99); Nucleated Red Blood Cells % 0 %; Platelet Count 234 K/mm3 (142-424); Red Blood Count 3.38 M/mm3 (4.20-5.40); Red Cell Distribution Width-SD 44.2 fL; White Blood Count 6.0 K/mm3 (4.8-10.8)
[2025-05-31 18:47] LABS: Chloride 104 mmol/L (98-107)
[2025-05-31 18:48] LABS: Albumin Level 3.7 g/dl (3.5-5.0); Potassium 3.7 mmoL/L (3.5-5.1); Sodium 138 mmol/L (136-145)
[2025-05-31 18:50] LABS: Blood Urea Nitrogen 19 mg/dl (7-17); Creatinine Clearance Estimated 64 mL/min (50-200); Creatinine,Serum 1.00 mg/dl (0.52-1.04); Estimated Glomerular Filt Rate 55 ml/min (>60); GFR (African American) 67 ML/MIN (>60)
[2025-05-31 18:51] LABS: Alanine Aminotransferase 12 U/L (12-78); Albumin/Globulin Ratio 1.3 (1.1-1.8); Alkaline Phosphatase 56 U/L (38-126); Anion Gap 7.7 mEq/L (5-15); Aspartate Amino Transferase 25 U/L (14-36); Bilirubin,Total 0.4 mg/dl (0.2-1.3); Calcium 8.8 mg/dl (8.4-10.2); Carbon Dioxide 30 mmol/L (22.0-30.0); Globulin 2.9 g/dL (1.3-3.2); Glucose 93 mg/dl (74-100); Total Protein,Serum 6.6 g/dl (6.3-8.2)
[2025-05-31] MEDS: OXYCODONE 5MG IMMEDIATE RELEASE TABLET 5 MG PO (19:17)
[2025-05-31] MEDS: IOPAMIDOL-370 (76%);100ML BOTTLE 75 ML IV (19:32)
[2025-05-31] MEDS: SODIUM CHLORIDE 0.9% 10ML SYR (RAD ONLY) 10 ML IV (19:32)
--- NOTE | 2025-05-31 20:29 | PC.NURSE ---
pt requesting something for nausea, provider aware.
[2025-05-31] MEDS: ONDANSETRON 4MG ODT 4 MG SL (20:59)
--- NOTE | 2025-05-31 21:45 | ED_ITS ---
<Statement entered by Dallas Valles MD - 06/01/25 02:05> I was consulted by the LOTUS, and we discussed the complexity of the problems being addressed. I approve the treatment and management plan for this patient's care in the emergency department, thus performing a substantive portion of the medical decision making. Dallas Valles MD Discharge Plan Disposition Patient Disposition: Home, Self-Care Condition: Good Prescriptions Prescriptions: New polyethylene glycol 3350 [Miralax] 17 gram/dose powder 17 g PO DAILY Qty: 119 0RF No Action trazodone 100 mg tablet 100 mg PO DAILY Qty: 30 2RF metoprolol succinate 25 mg tablet extended release 24 hr 12.5 mg PO DAILY Qty: 30 2RF lisinopril 20 mg tablet 20 mg PO BID Qty: 60 5RF mvxmmsqewxywmxn-fkgwmrbwl-ZS [Bromfed DM] 2-30-10 mg/5 mL syrup 10 ml PO Q6H PRN (Reason: cold symptoms) Qty: 118 0RF nystatin 100,000 unit/mL suspension 5 ml PO QID 7 Days Qty: 140 0RF Rx Instructions: swish and swallow aspirin [Adult Aspirin Regimen] 81 mg tablet,delayed release (DR/EC) 81 mg PO DAILY albuterol sulfate 90 mcg/actuation HFA aerosol inhaler 2 puff inhalation Q4-6H PRN (Reason: shortness of breath or wheezing) Qty: 18 2RF fluticasone propionate [Allergy Relief (fluticasone)] 50 mcg/actuation spray,suspension 1 spray intranasal BID Qty: 16 2RF Rx Instructions: administer into each nostril 2x/day furosemide 40 mg tablet 40 mg PO DAILY 30 Days Qty: 30 2RF Eliquis 5 mg tablet 5 mg PO BID Qty: 60 2RF Premarin 1.25 mg tablet 1.25 mg PO TID ondansetron 4 mg tablet,disintegrating 4 mg PO Q6H PRN (Reason: nausea and vomiting) Qty: 20 0RF oxybutynin chloride 10 mg tablet extended release 24hr 10 mg PO DAILY 90 Days Qty: 90 1RF alendronate 10 mg tablet 10 mg PO DAILY Qty: 30 2RF dicyclomine 10 mg capsule 10 mg PO TID Qty: 90 12RF Rx Instructions: Please take 1 capsule by mouth 3 times daily before meals pantoprazole 40 mg tablet,delayed release (DR/EC) See Rx Instructions .ROUTE .COMPLEX Qty: 60 2RF Dose Instruction: TAKE ONE TABLET BY MOUTH TWICE DAILY Rx Instructions: TAKE ONE TABLET BY MOUTH TWICE DAILY Rexulti 0.5 mg (7)- 1 mg (7) tablets,dose pack 0.5 tab PO DAILY 0RF escitalopram oxalate [Lexapro] 20 mg tablet 20 mg PO DAILY Qty: 30 2RF diazepam [Valium] 5 mg tablet 5 mg PO TID PRN (Reason: anxiety) Qty: 90 0RF estradiol [Estrace] 0.01 % (0.1 mg/gram) cream 1 appful vaginal DAILY Qty: 42.5 2RF Rx Instructions: Use finger technique daily x 14 days and 3 x weekly thereafter Referrals Follow up/Referrals: See Del Rio MD [Primary Care Provider, Family Practice] - See instructions Activity Restrictions/Add. Instructions Additional Instructions/Restrictions: You were seen for abdominal pain. You did have some constipation. Please follow up with your PCP this week, as well as your urologist. Clinical Impressions Clinical Impression: Constipation, Abdominal pain Instructions Patient Instructions: Constipation, DI for Abdominal Pain in Adults Print Language Print Language: Montserratian Discharge ED Provider: Dallas Valles Adult HPI <AUGUSTINE Rodriguez - Last Filed: 05/31/25 21:48> General Chief complaint: Urogenital-Female Stated complaint: bladder pain, vaginal pain , sore throat Time Seen by Provider: 05/31/25 15:57 Mode of Arrival: Ambulatory Source of Information: Patient Description of Symptoms (Recalled from ER Triage Doc. by RN): Patient states that she had a cystoscopy yesterday and since then has been having a lot of pelvic pain. History of Present Illness HPI narrative: Patient presents complaining of suprapubic abdominal pain after cystoscopy yesterday. She reports that the pain is sharp. Denies any fevers or vomiting. complaint: abdominal pain Onset (ago): day(s) Location: abdomen Severity: moderate Consistency: constant Relieving factors: none Exacerbating factors: none Associated symptoms: negative fever/chills Related Data Home Medications ?Medication ?Instructions ?Recorded ?Confirmed aspirin 81 mg tablet,delayed 81 mg PO DAILY 09/27/24 1 release (Adult Aspirin Regimen) conjugated estrogens 1.25 mg 1.25 mg PO TID 05/12/25 1 tablet (Premarin) Previous Rx's ?Medication ?Instructions ?Recorded albuterol sulfate 90 mcg/actuation 2 puff inhalation Q 4-6H PRN 12/03/24 aerosol inhaler shortness of breath or wheez ing #18 grams fluticasone propionate 50 1 spray intranasal BID #16 g anatoliy 01/10/25 mcg/actuation nasal spray,suspension (Allergy Relief (fluticasone)) alendronate 10 mg tablet 10 mg PO DAILY #30 tabs 02/11 09/07 furosemide 40 mg tablet 40 mg PO DAILY 30 days #30 t abs 03/03/25 ondansetron 4 mg disintegrating 4 mg PO Q6H PRN nausea and 03/24/25 tablet vomiting #20 tabs dicyclomine 10 mg capsule 10 mg PO TID #90 caps apixaban 5 mg tablet (Eliquis) 5 mg PO BID #60 tabs trazodone 100 mg tablet 100 mg PO DAILY #30 tabs pantoprazole 40 mg tablet,delayed See Rx Instructions .Route 05/05/25 release .COMPLEX #60 tabs gponxyrnmxiaokh-evzmtsdgzndeyyo-PZ 10 ml PO Q6H PRN co ld symptoms 05/16/25 2 mg-30 mg-10 mg/5 mL oral syrup #118 mL (Bromfed DM) oxybutynin chloride 10 mg 10 mg PO DAILY 90 days #90 t abs 05/19/25 tablet,extended release 24 hr escitalopram oxalate 20 mg tablet 20 mg PO DAILY #30 t abs 05/20/25 (Lexapro) diazepam 5 mg tablet (Valium) 5 mg PO TID PRN anxiety #90 tabs 05/21/25 lisinopril 20 mg tablet 20 mg PO BID #60 tabs metoprolol succinate 25 mg 12.5 mg (1/2 x 25 mg) PO DA FRANKLIN #30 05/27/25 tablet,extended release 24 hr tabs estradiol 0.01% (0.1 mg/gram) 1 appful vaginal DAILY # 42.5 grams 05/30/25 vaginal cream (Estrace) nystatin 100,000 unit/mL oral 5 ml PO QID 7 days #140 mL 05/30/25 suspension polyethylene glycol 3350 17 17 g PO DAILY #119 grams 1 gram/dose oral powder (Miralax) Allergies Allergy/AdvReac Type Severity Reaction Status Date / Time cephalexin (From Keflex) Allergy Severe Difficulty Verified 05/30/25 10:27 Breathing prochlorperazine Allergy Severe Swelling Verified 05/30/25 10:27 (PROCHLORPERAZINE) of Lip/Tongue/Throat codeine (CODEINE) Allergy Unknown VOMITING / Verified 05/30/25 10:27 NAUSEA prednisone (PREDNISONE) Allergy Unknown BP ISSUES Verified 05/30/25 10:27 promethazine (From PHENERGAN) Allergy Unknown Unknown Verified 05/30/25 10:27 allergy reaction metoclopramide (From Reglan) Allergy Nausea Verified 05/30/25 10:27 hydroxyzine (From Vistaril) AdvReac Hives Verified 05/30/25 10:27 [facility] [place] <AUGUSTINE Rodriguez - Last Filed: 05/31/25 21:48> [facility] [place] Disclaimer: The information contained in this section may have been updated after the patient was seen, as this information can be updated by other users. Medical History Upper respiratory tract infection New onset a-fib Dyspepsia Dysphagia Common bile duct dilation Abnormal findings on imaging of biliary tract Recurrent acute otitis media of right ear Nausea & vomiting Continue the promethazine see above. Chest pain Near syncope Chronic abdominal pain Anxiety related tremor High globulin level Shakiness SOB (shortness of breath) Palpitations Bradycardia Screening for colon cancer Breast cancer screening by mammogram Mammogram done 10/2024 Crohn's disease Community acquired pneumonia Chronic kidney disease (HFpEF) heart failure with preserved ejection fraction Abnormal chest CT Schatzki's ring Sinus bradycardia Insomnia Depression Anxiety Osteoporosis Allergies History of anemia History of constipation Sphincter of Oddi dysfunction HTN (hypertension) Bilateral lower extremity edema Surgical History Lipoma of back Status post cholecystectomy H/O oral surgery History of appendectomy H/O total hysterectomy History of esophagogastroduodenoscopy (EGD) History of arthroscopy of right knee Status post knee surgery Status post right knee arthroscopy with partial medial meniscectomy date of surgery May 16, 2022 History of intestinal surgery Family History Other Cancer Heart attack Social History Smoking Status: Never smoker second hand exposure: No alcohol intake: never substance use type: denies use current occupational status: disabled Travel in the last 8 weeks?: None household members: none housing: apartment number of children: 2 current occupational exposures/hazards: No caffeine: Yes Have you lived/traveled outside [place] in past 30 days?: No Contact w/someone who lives/traveled outside [place] past 30 days?: No Exposure to someone with infectious disease in past 14 days?: No Do you have a fever (greater than 100.4 F or 38 C)?: No Have you tested positive for COVID-19?: No Exposed to someone with COVID-19 in past 14 days?: No Do you have a sore throat?: No Do you have a cough?: No Do you have any weakness?: No Do you have any diarrhea?: No Are you experiencing any unusual bleeding?: No Do you have any muscle aches/pain?: No Do you have any abdominal pain?: No Are you experiencing loss of taste or smell?: No Other Medical History Have you received the Flu Vaccine for this season: No Have you received the Pneumonia Vaccine: Yes <AUGUSTINE Rodriguez - Last Filed: 05/31/25 21:48> ROS Obtained: Yes Systems reviewed as appropriate & no additional complaints except as documented Physical Exam <AUGUSTINE Rodriguez - Last Filed: 05/31/25 21:48> General General appearance: alert and in no apparent distress Head Head exam: atraumatic and normocephalic Eye Eye exam: Present normal appearance and EOMI Chest Chest inspection: Present symmetric chest wall rise Respiratory Respiratory exam: Present normal lung sounds bilaterally; Absent wheezes or stridor Cardiovascular Cardiovascular exam: Present regular rate and normal rhythm; Absent systolic murmur Abdominal Exam Abdominal exam: Present soft; Absent distention, tenderness or guarding Extremities Exam Extremities exam: Present full ROM Neurological Exam Neurological exam: Present alert and oriented X3 Psychiatric Psychiatric exam: Present normal affect and normal mood Skin Skin exam: Present warm, dry and intact Medical Decision Making <AUGUSTINE Rodriguez - Last Filed: 05/31/25 21:48> Medical Records Screening: Per USPSTF and CDC recommendations, given the prevalence of disease in our region, it is our hospital?s policy to screen for HIV and viral Hepatitis for all patients aged 18 and over and those with ongoing risk factors. Grant Inquiry Pt receiving controlled substance: No Vital Signs: 05/31/25 15:58 05/31/25 16:32 05/31/25 17:00 Temperature 98.6 F Temperature Source Oral Pulse Rate 61 50 L Pulse Rate [Right Brachial] 57 L Respiratory Rate 16 Blood Pressure 199/94 H 173/78 H Blood Pressure [Right Arm] 155/77 H Blood Pressure Mean [Right Arm] 103 Blood Pressure Source [Right Arm] Automatic Cuff Blood Pressure Position [Right Arm] Sitting 02 Sat by Pulse Oximetry 96 93 L 98 Oxygen Delivery Method Room Air Room Air 05/31/25 17:30 05/31/25 18:34 05/31/25 19:21 Temperature Temperature Source Pulse Rate 52 L 52 L 47 L Pulse Rate [Right Brachial] Respiratory Rate Blood Pressure 155/83 H 187/88 H 184/88 H Blood Pressure [Right Arm] Blood Pressure Mean [Right Arm] Blood Pressure Source [Right Arm] Blood Pressure Position [Right Arm] 02 Sat by Pulse Oximetry 95 96 96 Oxygen Delivery Method Room Air 05/31/25 20:03 05/31/25 20:31 05/31/25 21:44 Temperature 98.2 F Temperature Source Pulse Rate 57 L 49 L 49 L Pulse Rate [Right Brachial] Respiratory Rate 20 Blood Pressure 208/78 H 175/75 H 175/75 H Blood Pressure [Right Arm] Blood Pressure Mean [Right Arm] Blood Pressure Source [Right Arm] Blood Pressure Position [Right Arm] 02 Sat by Pulse Oximetry 96 93 L Oxygen Delivery Method Room Air Lab Data Lab Results 05/31/25 16:31: Urine Color Yellow, Urine Appearance Clear, Urine pH 6.0, Ur Specific Metz >= 1.030, Urine Protein Negative, Urine Glucose (UA) Negative, Urine Ketones Negative, Urine Blood Negative, Urine Nitrate Negative, Urine Bilirubin Negative, Urine Urobilinogen 0.2, Ur Leukocyte Esterase Negative, Urine RBC None, Urine WBC Occasional, Ur Squamous Epith Cells Occasional, Other Crystals , Urine Bacteria Trace 05/31/25 18:36: WBC 6.0, RBC 3.38 L, Hgb 9.7 L, Hct 29.8 L, MCV 88.2, MCH 28.7, MCHC 32.6, RDW 13.7, Plt Count 234, MPV 11.6 H, Neut % (Auto) 58.2, Lymph % (Auto) 27.8, Harlan % (Auto) 7.9, Eos % (Auto) 5.0, Baso % (Auto) 0.8, Neut # (Auto) 3.5, Lymph # (Auto) 1.7, Harlan # (Auto) 0.5, Eos # (Auto) 0.3, Baso # (Auto) 0.1, Sodium 138, Potassium 3.7, Chloride 104, Carbon Dioxide 30, Anion Gap 7.7, BUN 19 H, Creatinine 1.00, Estimated Creat Clear 64, Estimated GFR 55 L , Est GFR ( Amer) 67, Glucose 93, Calcium 8.8, Total Bilirubin 0.4, AST 25, ALT 12, Alkaline Phosphatase 56, Total Protein 6.6, Albumin 3.7, Globulin 2.9, Albumin/Globulin Ratio 1.3 05/31/25 18:36 05/31/25 18:36 Orders (Tests/Meds): ED MEDICATIONS Discontinued Medications Generic Name Dose Route Start Last Admin Trade Name Freq PRN Reason Stop Dose Admin Iopamidol 75 ml 05/31/25 19:31 05/31/25 19:32 Iopamidol-370 (76%);100ml Bottle IV 05/31/25 19:32 75 ml ONCE ONE Administration Ondansetron HCl 4 mg 05/31/25 20:56 05/31/25 20:59 Ondansetron 4mg Odt SL 05/31/25 20:57 4 mg ONCE ONE Administration Oxycodone HCl 5 mg 05/31/25 19:11 05/31/25 19:17 Oxycodone 5mg Immediate Release Tablet PO 05/31/25 19:12 5 mg ONCE ONE Administration Sodium Chloride 10 ml 05/31/25 19:31 05/31/25 19:32 Sodium Chloride 0.9% 10ml Syr (Rad Only) IV 06/30/25 19:30 10 ml NEEDED PRN Administration Maintain IV Site ORDERS Category Date Time Status CT abdomen pelvis w con Stat Cat Scan 05/31/25 15:58 Completed CBC w/Auto Diff [Complete Blood Count Auto Diff] Stat Lab 05/31/25 18:36 Completed CMP [Comprehensive Metabolic Panel] Stat Lab 05/31/25 18:36 Completed Urinalysis and Microscopic Stat Lab 05/31/25 16:31 Completed Medical Decision Narrative: In summary patient is a 69-year-old female who presents the emergency department for evaluation of abdominal pain. Patient is hemodynamically upon arrival, afebrile. Unremarkable physical exam. Differential diagnosis includes UTI, bladder perforation, urethral irritation. Initial workup will be conducted with labs, urinalysis, CT abdomen pel. Upon repeat evaluation patient resting, CT shows constipation. Given this patient is appropriate for discharge home at this time with prescription for MiraLAX. Instructed to follow-up with her urologist and PCP.. <Dallas Valles MD - Last Filed: 06/01/25 02:11> Vital Signs: 05/31/25 15:58 05/31/25 16:32 05/31/25 17:00 Temperature 98.6 F Temperature Source Oral Pulse Rate 61 50 L Pulse Rate [Right Brachial] 57 L Respiratory Rate 16 Blood Pressure 199/94 H 173/78 H Blood Pressure [Right Arm] 155/77 H Blood Pressure Mean [Right Arm] 103 Blood Pressure Source [Right Arm] Automatic Cuff Blood Pressure Position [Right Arm] Sitting 02 Sat by Pulse Oximetry 96 93 L 98 Oxygen Delivery Method Room Air Room Air 05/31/25 17:30 05/31/25 18:34 05/31/25 19:21 Temperature Temperature Source Pulse Rate 52 L 52 L 47 L Pulse Rate [Right Brachial] Respiratory Rate Blood Pressure 155/83 H 187/88 H 184/88 H Blood Pressure [Right Arm] Blood Pressure Mean [Right Arm] Blood Pressure Source [Right Arm] Blood Pressure Position [Right Arm] 02 Sat by Pulse Oximetry 95 96 96 Oxygen Delivery Method Room Air 05/31/25 20:03 05/31/25 20:31 05/31/25 21:44 Temperature 98.2 F Temperature Source Pulse Rate 57 L 49 L 49 L Pulse Rate [Right Brachial] Respiratory Rate 20 Blood Pressure 208/78 H 175/75 H 175/75 H Blood Pressure [Right Arm] Blood Pressure Mean [Right Arm] Blood Pressure Source [Right Arm] Blood Pressure Position [Right Arm] 02 Sat by Pulse Oximetry 96 93 L Oxygen Delivery Method Room Air Lab Data Lab Results 05/31/25 16:31: Urine Color Yellow, Urine Appearance Clear, Urine pH 6.0, Ur Specific Metz >= 1.030, Urine Protein Negative, Urine Glucose (UA) Negative, Urine Ketones Negative, Urine Blood Negative, Urine Nitrate Negative, Urine Bilirubin Negative, Urine Urobilinogen 0.2, Ur Leukocyte Esterase Negative, Urine RBC None, Urine WBC Occasional, Ur Squamous Epith Cells Occasional, Other Crystals , Urine Bacteria Trace 05/31/25 18:36: WBC 6.0, RBC 3.38 L, Hgb 9.7 L, Hct 29.8 L, MCV 88.2, MCH 28.7, MCHC 32.6, RDW 13.7, Plt Count 234, MPV 11.6 H, Neut % (Auto) 58.2, Lymph % (Auto) 27.8, Harlan % (Auto) 7.9, Eos % (Auto) 5.0, Baso % (Auto) 0.8, Neut # (Auto) 3.5, Lymph # (Auto) 1.7, Harlan # (Auto) 0.5, Eos # (Auto) 0.3, Baso # (Auto) 0.1, Sodium 138, Potassium 3.7, Chloride 104, Carbon Dioxide 30, Anion Gap 7.7, BUN 19 H, Creatinine 1.00, Estimated Creat Clear 64, Estimated GFR 55 L , Est GFR ( Amer) 67, Glucose 93, Calcium 8.8, Total Bilirubin 0.4, AST 25, ALT 12, Alkaline Phosphatase 56, Total Protein 6.6, Albumin 3.7, Globulin 2.9, Albumin/Globulin Ratio 1.3 Orders (Tests/Meds): ED MEDICATIONS Discontinued Medications Generic Name Dose Route Start Last Admin Trade Name Freq PRN Reason Stop Dose Admin Iopamidol 75 ml 05/31/25 19:31 05/31/25 19:32 Iopamidol-370 (76%);100ml Bottle IV 05/31/25 19:32 75 ml ONCE ONE Administration Ondansetron HCl 4 mg 05/31/25 20:56 05/31/25 20:59 Ondansetron 4mg Odt SL 05/31/25 20:57 4 mg ONCE ONE Administration Oxycodone HCl 5 mg 05/31/25 19:11 05/31/25 19:17 Oxycodone 5mg Immediate Release Tablet PO 05/31/25 19:12 5 mg ONCE ONE Administration Sodium Chloride 10 ml 05/31/25 19:31 05/31/25 19:32 Sodium Chloride 0.9% 10ml Syr (Rad Only) IV 06/30/25 19:30 10 ml NEEDED PRN Administration Maintain IV Site ORDERS Category Date Time Status CT abdomen pelvis w con Stat Cat Scan 05/31/25 15:58 Completed CBC w/Auto Diff [Complete Blood Count Auto Diff] Stat Lab 05/31/25 18:36 Completed CMP [Comprehensive Metabolic Panel] Stat Lab 05/31/25 18:36 Completed Urinalysis and Microscopic Stat Lab 05/31/25 16:31 Completed Procedures <Dallas Valles MD - Last Filed: 06/01/25 02:11> Miscellaneous Procedure Procedure Performed: US-guided peripheral IV placement Patient's port was unable to be accessed, so an ultrasound-guided peripheral IV was obtained. A collapsible vein without pulsatility was identified in the right AC. A tourniquet was applied. The area was cleaned with alcohol wipe. Ultrasound guidance was used during the entire procedure. An 18-gauge long IV was successfully placed in the right AC that draws and flushes without difficulty. IV was secured using a Tegaderm. There were no complications from the procedure. Patient tolerated it well. Critical Care <AUGUSTINE Rodriguez - Last Filed: 05/31/25 21:48> Critical Care Time Critical Care Time: No
== END 2025-05-31 21:54 | disposition home or self-care (01) ==
PROVIDERS: Physician Assistant; Emergency Provider Student in an Organized Health Care Education/Training Program; PCP Family Medicine
DX: R10.24 Suprapubic pain (principal); K59.00 Constipation, unspecified; I11.0 Hypertensive heart disease with heart failure; I50.30 Unspecified diastolic (congestive) heart failure
CPT/HCPCS: 74177; 80053; 81001; 85025; 99284; Q0162; Q9967

== ENCOUNTER 2025-06-03 13:41 | Emergency (ER) | payer MEDICARE, OTHER, SELFPAY ==
[2025-06-03 13:56] VITALS: BP 192/95; PULSE 54; RESP 18; TEMP 36.7; O2SAT 94; BMI 28.8
--- NOTE | 2025-06-03 14:23 | ED_ITS ---
<Statement entered by Dallas Valles MD - 06/03/25 18:11> I was consulted by the LOTUS, and we discussed the complexity of the problems being addressed. I approve the treatment and management plan for this patient's care in the emergency department, thus performing a substantive portion of the medical decision making. Dallas Valles MD Discharge Plan Disposition Patient Disposition: Home, Self-Care Condition: Good Prescriptions Prescriptions: No Action trazodone 100 mg tablet 100 mg PO DAILY Qty: 30 2RF metoprolol succinate 25 mg tablet extended release 24 hr 12.5 mg PO DAILY Qty: 30 2RF lisinopril 20 mg tablet 20 mg PO BID Qty: 60 5RF jotzjxepgkpwzrt-avcgbpwju-UT [Bromfed DM] 2-30-10 mg/5 mL syrup 10 ml PO Q6H PRN (Reason: cold symptoms) Qty: 118 0RF nystatin 100,000 unit/mL suspension 5 ml PO QID 7 Days Qty: 140 0RF Rx Instructions: swish and swallow ibuprofen 600 mg tablet 600 mg PO TID Qty: 90 1RF aspirin [Adult Aspirin Regimen] 81 mg tablet,delayed release (DR/EC) 81 mg PO DAILY albuterol sulfate 90 mcg/actuation HFA aerosol inhaler 2 puff inhalation Q4-6H PRN (Reason: shortness of breath or wheezing) Qty: 18 2RF fluticasone propionate [Allergy Relief (fluticasone)] 50 mcg/actuation spray,suspension 1 spray intranasal BID Qty: 16 2RF Rx Instructions: administer into each nostril 2x/day furosemide 40 mg tablet 40 mg PO DAILY 30 Days Qty: 30 2RF Eliquis 5 mg tablet 5 mg PO BID Qty: 60 2RF Premarin 1.25 mg tablet 1.25 mg PO TID ondansetron 4 mg tablet,disintegrating 4 mg PO Q6H PRN (Reason: nausea and vomiting) Qty: 20 0RF oxybutynin chloride 10 mg tablet extended release 24hr 10 mg PO DAILY 90 Days Qty: 90 1RF alendronate 10 mg tablet 10 mg PO DAILY Qty: 30 2RF dicyclomine 10 mg capsule 10 mg PO TID Qty: 90 12RF Rx Instructions: Please take 1 capsule by mouth 3 times daily before meals pantoprazole 40 mg tablet,delayed release (DR/EC) See Rx Instructions .ROUTE .COMPLEX Qty: 60 2RF Dose Instruction: TAKE ONE TABLET BY MOUTH TWICE DAILY Rx Instructions: TAKE ONE TABLET BY MOUTH TWICE DAILY Rexulti 0.5 mg (7)- 1 mg (7) tablets,dose pack 0.5 tab PO DAILY 0RF escitalopram oxalate [Lexapro] 20 mg tablet 20 mg PO DAILY Qty: 30 2RF diazepam [Valium] 5 mg tablet 5 mg PO TID PRN (Reason: anxiety) Qty: 90 0RF estradiol [Estrace] 0.01 % (0.1 mg/gram) cream 1 appful vaginal DAILY Qty: 42.5 2RF Rx Instructions: Use finger technique daily x 14 days and 3 x weekly thereafter polyethylene glycol 3350 [Miralax] 17 gram/dose powder 17 g PO DAILY Qty: 119 0RF Referrals Follow up/Referrals: Colin Smith MD [Primary Care Provider, Family Practice] - See instructions Librado Leon MD [Staff Physician, Urology] - See instructions Activity Restrictions/Add. Instructions Additional Instructions/Restrictions: Please return to the emergency department with any worsening signs or symptoms. Please follow-up with your urologist in the upcoming days/weeks. Please take all your medication as currently prescribed. Clinical Impressions Clinical Impression: Abdominal pain Instructions Patient Instructions: Cystocele/Rectocele Print Language Print Language: Kinyarwanda Discharge ED Provider: Dallas Valles Adult HPI General Chief complaint: PAIN Stated complaint: High Blood Pressure Time Seen by Provider: 06/03/25 14:10 Mode of Arrival: Ambulatory Source of Information: Patient Description of Symptoms (Recalled from ER Triage Doc. by RN): patient presents with cheif complaint of high blood pressure. but joy also has multiple complaints which including sharp pain in her groin, feeling a fullness in her lower bladder, pain in her right knee after an injection. paieddte stated she took her lisinopril and metoprolol as prescribed History of Present Illness HPI narrative: 69-year-old female presents the emergency department for lower suprapubic pain/ bladder pain , the patient states this been going on for quite some time, worse over the last 2 weeks and several days ago, patient had recent cystoscopy on 05/30/2025, found to have overactive bladder/bladder prolapse, states that she is scheduled for a second opinion/consultation with [facility] urology in the upcoming days/weeks. Patient was also recently seen in the emergency department for similar complaint on 05/31/2025, had unremarkable laboratory studies, unremarkable urinalysis, and CT abdomen pelvis that shows some bladder wall changes due to recent cystoscopy, patient states this pain is similar, has not really gotten worse, she states that the pain was so bad it kept me up all night last night , she denies any fever chills chest pain shortness of breath nausea vomiting constipation diarrhea, denies any other overt abdominal pain, admits to hematuria at times, denies any hematochezia melena or hemoptysis, denies any other urinary type symptomatology. Patients denies any tobacco alcohol or drug use, other past medical history is consistent with Crohn's disease, iron deficiency anemia, osteoarthritis, hypertension, generalized anxiety disorder, osteoporosis, chronic abdominal pain, atrial fibrillation on anticoagulation therapy with Eliquis, sinus bradycardia, chronic pain syndrome, cystocele, IBS, initial triage vitals notable bradycardia otherwise unremarkable, patient was seen in her orthopedic provider's office today, decided to come over to the emergency department because her pain was so bad, she was not sent from her orthopedic provider's office, however there was concerned about her blood pressure at that appointment, patient states her blood pressure is now better . Please note that above description of symptoms, in this electronic medical record under categorization of recalled from ER triage doctor by RN are reflective of an initial nursing assessment, however, is not reflective of my full history and physical exam that was personally taken and clarified. Consequentially, this preceding description of symptoms, which may include the patient's categorized chief complaint in the EMR, do not reflect my personal clinical impression, and the ultimate description of history of present illness and patient stated complaints should be deferred to this section of the note. Unless stated otherwise or congruent with this section of the note, additional signs, symptoms, or incongruence should be interpreted as inaccurate with my clinical impression. Onset (ago): week(s) Related Data Home Medications ?Medication ?Instructions ?Recorded ?Confirmed aspirin 81 mg tablet,delayed 81 mg PO DAILY 09/27/24 1 release (Adult Aspirin Regimen) conjugated estrogens 1.25 mg 1.25 mg PO TID 05/12/25 1 tablet (Premarin) Previous Rx's ?Medication ?Instructions ?Recorded albuterol sulfate 90 mcg/actuation 2 puff inhalation Q 4-6H PRN 12/03/24 aerosol inhaler shortness of breath or wheez ing #18 grams fluticasone propionate 50 1 spray intranasal BID #16 g anatoliy 01/10/25 mcg/actuation nasal spray,suspension (Allergy Relief (fluticasone)) alendronate 10 mg tablet 10 mg PO DAILY #30 tabs 02/11 09/07 furosemide 40 mg tablet 40 mg PO DAILY 30 days #30 t abs 03/03/25 ondansetron 4 mg disintegrating 4 mg PO Q6H PRN nausea and 03/24/25 tablet vomiting #20 tabs dicyclomine 10 mg capsule 10 mg PO TID #90 caps apixaban 5 mg tablet (Eliquis) 5 mg PO BID #60 tabs trazodone 100 mg tablet 100 mg PO DAILY #30 tabs pantoprazole 40 mg tablet,delayed See Rx Instructions .Route 05/05/25 release .COMPLEX #60 tabs mahexcbbjomgbtz-ukvadfiajwkfurh-JH 10 ml PO Q6H PRN co ld symptoms 05/16/25 2 mg-30 mg-10 mg/5 mL oral syrup #118 mL (Bromfed DM) oxybutynin chloride 10 mg 10 mg PO DAILY 90 days #90 t abs 05/19/25 tablet,extended release 24 hr escitalopram oxalate 20 mg tablet 20 mg PO DAILY #30 t abs 05/20/25 (Lexapro) diazepam 5 mg tablet (Valium) 5 mg PO TID PRN anxiety #90 tabs 05/21/25 lisinopril 20 mg tablet 20 mg PO BID #60 tabs metoprolol succinate 25 mg 12.5 mg (1/2 x 25 mg) PO DA FRANKLIN #30 05/27/25 tablet,extended release 24 hr tabs estradiol 0.01% (0.1 mg/gram) 1 appful vaginal DAILY # 42.5 grams 05/30/25 vaginal cream (Estrace) nystatin 100,000 unit/mL oral 5 ml PO QID 7 days #140 mL 05/30/25 suspension polyethylene glycol 3350 17 17 g PO DAILY #119 grams 1 gram/dose oral powder (Miralax) ibuprofen 600 mg tablet 600 mg PO TID #90 tabs 06/03 Allergies Allergy/AdvReac Type Severity Reaction Status Date / Time cephalexin (From Keflex) Allergy Severe Difficulty Verified 06/03/25 13:10 Breathing prochlorperazine Allergy Severe Swelling Verified 06/03/25 13:10 (PROCHLORPERAZINE) of Lip/Tongue/Throat codeine (CODEINE) Allergy Unknown VOMITING / Verified 06/03/25 13:10 NAUSEA prednisone (PREDNISONE) Allergy Unknown BP ISSUES Verified 06/03/25 13:10 promethazine (From PHENERGAN) Allergy Unknown Unknown Verified 06/03/25 13:10 allergy reaction metoclopramide (From Reglan) Allergy Nausea Verified 06/03/25 13:10 hydroxyzine (From Vistaril) AdvReac Hives Verified 06/03/25 13:10 PFSH PFS Disclaimer: The information contained in this section may have been updated after the patient was seen, as this information can be updated by other users. Medical History Upper respiratory tract infection New onset a-fib Dyspepsia Dysphagia Common bile duct dilation Abnormal findings on imaging of biliary tract Recurrent acute otitis media of right ear Nausea & vomiting Continue the promethazine see above. Chest pain Near syncope Chronic abdominal pain Anxiety related tremor High globulin level Shakiness SOB (shortness of breath) Palpitations Bradycardia Screening for colon cancer Breast cancer screening by mammogram Mammogram done 10/2024 Crohn's disease Community acquired pneumonia Chronic kidney disease (HFpEF) heart failure with preserved ejection fraction Abnormal chest CT Schatzki's ring Sinus bradycardia Insomnia Depression Anxiety Osteoporosis Allergies History of anemia History of constipation Sphincter of Oddi dysfunction HTN (hypertension) Bilateral lower extremity edema Surgical History Lipoma of back Status post cholecystectomy H/O oral surgery History of appendectomy H/O total hysterectomy History of esophagogastroduodenoscopy (EGD) History of arthroscopy of right knee Status post knee surgery Status post right knee arthroscopy with partial medial meniscectomy date of surgery May 16, 2022 History of intestinal surgery Family History Other Cancer Heart attack Social History Smoking Status: Never smoker second hand exposure: No alcohol intake: never substance use type: denies use current occupational status: disabled Travel in the last 8 weeks?: None household members: none housing: apartment number of children: 2 current occupational exposures/hazards: No caffeine: Yes Other Medical History Have you received the Flu Vaccine for this season: No Have you received the Pneumonia Vaccine: Yes ROS Obtained: Yes All systems reviewed & no additional complaints except as documented Physical Exam General General appearance: alert and in no apparent distress Head Head exam: atraumatic and normocephalic Eye Eye exam: Present PERRL and EOMI ENT ENT exam: Present mucous membranes moist Neck Neck exam: Present normal inspection Chest Chest inspection: Present normal inspection and symmetric chest wall rise Respiratory Respiratory exam: Present normal lung sounds bilaterally; Absent respiratory distress Cardiovascular Cardiovascular exam: Present normal rhythm and bradycardia Abdominal Exam Abdominal exam: Present soft; Absent tenderness, guarding, rebound or rigidity Extremities Exam Extremities exam: Present normal inspection Neurological Exam Neurological exam: Present alert and oriented X3 Psychiatric Psychiatric exam: Present normal affect Skin Skin exam: Present warm and dry Medical Decision Making Medical Records Medical records reviewed: Yes I reviewed the patient's medical records. Screening: Per USPSTF and CDC recommendations, given the prevalence of disease in our region, it is our hospital?s policy to screen for HIV and viral Hepatitis for all patients aged 18 and over and those with ongoing risk factors. Grant Inquiry Pt receiving controlled substance: No Grant was queried for this patient: No Vital Signs: 06/03/25 13:56 Temperature 98.1 F Temperature Source Oral Pulse Rate [Right Radial] 54 L Respiratory Rate 18 Blood Pressure [Right Arm] 192/95 H Blood Pressure Mean [Right Arm] 127 Blood Pressure Source [Right Arm] Automatic Cuff Blood Pressure Position [Right Arm] Sitting 02 Sat by Pulse Oximetry 94 L Oxygen Delivery Method Room Air Lab Data Lab results reviewed: Yes I reviewed the patient's lab results. Lab Results 06/03/25 14:00: Urine Color Yellow, Urine Appearance Clear, Urine pH 6.0, Ur Specific [place] 1.020, Urine Protein Negative, Urine Glucose (UA) Negative, Urine Ketones Negative, Urine Blood Negative, Urine Nitrate Negative, Urine Bilirubin Negative, Urine Urobilinogen 0.2, Ur Leukocyte Esterase Negative, Urine RBC None, Urine WBC 3-5, Ur Squamous Epith Cells None, Amorphous Sediment 1+, Urine Bacteria None Orders (Tests/Meds): ED MEDICATIONS Discontinued Medications Generic Name Dose Route Start Last Admin Trade Name Dylon PRN Reason Stop Dose Admin Hydrocodone Bitart/Acetaminophen 1 tab 06/03/25 14:37 06/03/25 14:41 Hydrocodone/Apap 5/325 Mg Tablet PO 06/03/25 14:38 1 tab ONCE ONE Administration ORDERS Category Date Time Status Urinalysis and Microscopic Stat Lab 06/03/25 14:00 Completed Medical Decision Narrative: 69-year-old female presents emergency department with suprapubic pain, urinary type symptomatology for the last 2 weeks, differential diagnosis to include but not limited to, acute UTI, bladder prolapse, acute pyelonephritis among others. I discussed this patient's case in depth with Dr. Valles the attending physician I had a long discussion with the patient at the bedside, patient states her symptomatology has not really changed since her emergency department is not on 05/31/2025, she had full workup, see HPI for full details about unremarkable emergency department workup at that date. Offered to do laboratory studies and repeat imaging to the patient, patient denied at this time would not like to be stuck , we will pursue urinalysis and give the patient 5 mg p.o. [place] for symptomatic relief of the patient's pain. Urinalysis is unremarkable no hematuria, no nitrites, negative leukocyte esterase. Urine RBCs are none, 3-5 WBCs, no squamous epithelial cells 1+ amorphous sediment, no urine bacteria. I discussed results with the patient at the bedside, patient is in agreement with the current discharge plan/treatment plan. Upon discharge patient did exhibit some pain medication seeking behaviors and told me can you send me home with some additional pain pills? . I discussed that we will not be sending her home with any p.o. narcotics will treat her pain acutely here in the emergency department, ultimately patient wanted to follow-up with her urologist other providers in upcoming days/weeks. Patient voiced understanding and agreement with current treatment plan/discharge plan. Patient was given strict return precautions. Once again patient's laboratory studies imaging studies were grossly unremarkable 2 days ago in the emergency department, patient states her symptomatology has not really changed since then, patient has remained hemodynamically stable without her time in the emergency department, with exception of her bradycardia which is chronic for the patient. Critical Care Critical Care Time Critical Care Time: No
[2025-06-03 14:34] LABS: Microscopic, Urine URINE MICROSCOPIC (MICROSCOPIC)
[2025-06-03 14:37] LABS: Bilirubin,Urine Negative (Negative); Color,Urine YELLOW (Yellow); Glucose,Urine (UA) Negative (Negative); Ketones,Urine Negative (Negative); Leukocyte Esterase,Urine Negative (Negative); PH,Urine 6.0 (5.0-8.5); Protein,Urine Negative (Negative); Specific Gravity, Urine 1.020 (1.005-1.030); Urobilinogen,Urine 0.2 EU/dl (0.2)
[2025-06-03] MEDS: HYDROCODONE/APAP 5/325 MG TABLET 1 TAB PO (14:41)
[2025-06-03 15:03] LABS: Amorphous Sediment,Urine 1+ /lpf
[2025-06-03 15:27] VITALS: BP 160/72; PULSE 60; RESP 18; TEMP 36.7; O2SAT 96
== END 2025-06-03 15:27 | disposition home or self-care (01) ==
PROVIDERS: Physician Assistant; Emergency Provider Student in an Organized Health Care Education/Training Program; PCP Family Medicine
DX: R10.30 Lower abdominal pain, unspecified (principal); I10 Essential (primary) hypertension
CPT/HCPCS: 81001; 99282; 99283

== ENCOUNTER 2025-06-05 13:04 | Outpatient (CLI) | payer MEDICARE, OTHER, SELFPAY ==
--- NOTE | 2025-06-05 13:08 | XR_ITS ---
FINAL REPORT CLINICAL HISTORY: right knee pain injection 06/03/25 fall 2 days ago FINDINGS: Right Knee TWO VIEW FINDINGS: Two views show no evidence of an acute, displaced fracture or dislocation of the visualized bony architecture. Moderate degenerative joint disease is present. IMPRESSION: Degenerative changes. No acute bony abnormality. Authenticated and ERN
--- OUTSIDE RECORDS SUMMARY | 2025-06-05 13:30 | XMS_ITS | Clinical Summary ---
Author Organization [facility] Address [address] [place] [address] Care Team Providers Care Resident Services Director Name Role Phone Reuben Fong MD Primary Care Provider [phone] Social History Tobacco Use Types Packs/Day Years Used Date Smoking Tobacco: Never Comments Unknown Sex and Gender Information Value Date Recorded Sex Assigned at Not on file Legal Sex Female 7:52 PM EDT Gender Identity Not on file Sexual Orientation Not on file Plan of Treatment Health Maintenance Due Date Last Done Comments [facility]-Bone Density Scan 1955 [facility]-Depression Screening 1955 [facility]-Infant/Child/Adol SDOH Screenings 1955 [facility]- SDOH Screenings 10/27/1973 [facility]-Adult SDOH Screenings 10/27/1973 [facility]-DTaP,Tdap,and Td Vaccine s (1 - Tdap) 10/20/1996 10/19/1996 CT Colonography 10/27/2000 Colonoscopy 10/27/2000 FIT-DNA 10/27/2000 FIT 10/27/2000 FOBT 10/27/2000 Sigmoidoscopy 10/27/2000 [facility]-Colorectal Cancer Screening 10/27/2000 [facility]-Zoster Vaccines (2 of 3) 07/10/2017 05/15/2017 [facility]-Pneumococcal Vaccine: 50 + Years (2 of 2 - PCV) 01/03/2019 01/03/2018 [id number] Vaccine (2 - season) 2025 11/18/2020 [facility]-Influenza [...] patient's age to complete this topic Insurance Dr [place], [place] [id number] [employer] [place] [address] Care Teams Resident Services Director Relationship Specialty Start Date End Date Reuben Fong MD [address] [place] [address] [place] [id number] PCP - General 12/25/20
--- OUTSIDE RECORDS SUMMARY | 2025-06-05 13:30 | XMS_ITS | Clinical Summary ---
Author Organization [facility] Address [address] [place] [id number] Care Team Providers Care Psychiatric Social Worker Name Role Phone Unavailable Primary Care [...] therelease of HIV test results or diagnoses. [id number] Social History Tobacco Use Types Packs/Day Years Used Date Smoking Tobacco: Never Assessed Comments Unknown Sex and Gender Information Value Date Recorded Sex Assigned at Not on file Legal Sex Female 10:53 PM EST Gender Identity Not on file Sexual Orientation Not on file Plan of Treatment Not on file
== END 2025-06-05 23:59 | disposition home or self-care (01) ==
LOC: RAD 13:05
PROVIDERS: PCP Family Medicine; Visit Provider Physician Assistant
DX: M17.11 Unilateral primary osteoarthritis, right knee (principal)
CPT/HCPCS: 73560

== ENCOUNTER 2025-06-10 18:56 | Emergency (ER) | payer MEDICARE, OTHER, SELFPAY ==
[2025-06-10 19:02] VITALS: BP 186/65; PULSE 63; RESP 18; TEMP 36.7; O2SAT 96; BMI 29.8
--- NOTE | 2025-06-10 19:18 | ED_ITS ---
<Statement entered by Madison Barroso MD - 06/10/25 22:42> I was consulted by the LOTUS, and we discussed the complexity of the problems being addressed. I approved the treatment and management plan for this patient's care in the emergency department, thus performing a substantive portion of the medical decision making. Madison Barroso MD, RIO, FACEP Discharge Plan Disposition Patient Disposition: Home, Self-Care Prescriptions Prescriptions: No Action trazodone 100 mg tablet 100 mg PO DAILY Qty: 30 2RF lisinopril 20 mg tablet 20 mg PO BID Qty: 60 5RF [id number] [Bromfed DM] 2-30-10 mg/5 mL syrup 10 ml PO Q6H PRN (Reason: cold symptoms) Qty: 118 0RF nystatin 100,000 unit/mL suspension 5 ml PO QID 7 Days Qty: 140 0RF Rx Instructions: swish and swallow ibuprofen 600 mg tablet 600 mg PO TID Qty: 90 1RF aspirin [Adult Aspirin Regimen] 81 mg tablet,delayed release (DR/EC) 81 mg PO DAILY albuterol sulfate 90 mcg/actuation HFA aerosol inhaler 2 puff inhalation Q4-6H PRN (Reason: shortness of breath or wheezing) Qty: 18 2RF fluticasone propionate [Allergy Relief (fluticasone)] 50 mcg/actuation spray,suspension 1 spray intranasal BID Qty: 16 2RF Rx Instructions: administer into each nostril 2x/day furosemide 40 mg tablet 40 mg PO DAILY 30 Days Qty: 30 2RF Eliquis 5 mg tablet 5 mg PO BID Qty: 60 2RF Premarin 1.25 mg tablet 1.25 mg PO TID ondansetron 4 mg tablet,disintegrating 4 mg PO Q6H PRN (Reason: nausea and vomiting) Qty: 20 0RF oxybutynin chloride 10 mg tablet extended release 24hr 10 mg PO DAILY 90 Days Qty: 90 1RF alendronate 10 mg tablet 10 mg PO DAILY Qty: 30 2RF dicyclomine 10 mg capsule 10 mg PO TID Qty: 90 12RF Rx Instructions: Please take 1 capsule by mouth 3 times daily before meals pantoprazole 40 mg tablet,delayed release (DR/EC) See Rx Instructions .ROUTE .COMPLEX Qty: 60 2RF Dose Instruction: TAKE ONE TABLET BY MOUTH TWICE DAILY Rx Instructions: TAKE ONE TABLET BY MOUTH TWICE DAILY Rexulti 0.5 mg (7)- 1 mg (7) tablets,dose pack 0.5 tab PO DAILY 0RF escitalopram oxalate [Lexapro] 20 mg tablet 20 mg PO DAILY Qty: 30 2RF diazepam [Valium] 5 mg tablet 5 mg PO TID PRN (Reason: anxiety) Qty: 90 0RF estradiol [Estrace] 0.01 % (0.1 mg/gram) cream 1 appful vaginal DAILY Qty: 42.5 2RF Rx Instructions: Use finger technique daily x 14 days and 3 x weekly thereafter polyethylene glycol 3350 [Miralax] 17 gram/dose powder 17 g PO DAILY Qty: 119 0RF Referrals Follow up/Referrals: Colin Smith MD [Primary Care Provider, Family Practice] - See instructions Activity Restrictions/Add. Instructions Additional Instructions/Restrictions: Thank you for allowing us to care for you today. Your symptoms may be due to the small amount of urethral prolapse. Please continue ibuprofen and Tylenol for pain. You may take Pyridium if that helps your symptoms. I contacted [facility] and gave them both your cell phone number and home number to help arrange outpatient follow-up. Please call [facility] to schedule an appointment for urethral prolapse. Call [phone] or [facility] at [phone] Clinical Impressions Clinical Impression: Urethral prolapse, Urinary urgency Instructions Patient Instructions: DI for Urinary Tract Infection (UTI), DI for Urinary Tract Infection in Children Print Language Print Language: Afghan Discharge ED Provider: Madison Barroso General Adult HPI General Chief complaint: Urogenital-Female Stated complaint: abdominal pain Time Seen by Provider: 06/10/25 19:18 Mode of Arrival: Ambulatory Source of Information: Patient Description of Symptoms (Recalled from ER Triage Doc. by RN): Pt presents with c/o bladder pain. Pt has been seen numerous times for the same problem. Pt states the urologist upstairs has not gotten any referal the ER has sent them. History of Present Illness HPI narrative: This is a 69-year-old female with a history of HFpEF, stress urinary incontinence, paroxysmal atrial fibrillation, vaginal atrophy, incontinence, Crohn's disease, anxiety, hypertension, osteoarthritis who presents to the emergency department today for ongoing and worsening suprapubic/bladder/urethral pain. Patient reports a known history of vaginal and urethral prolapse. 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 Patient has been diagnosed with stress urinary incontinence and recently had a cystoscopy on 05-30-2025 which was overall reassuring. Due to her persistent pain, patient was referred to urology. Patient reports despite this she has not been contacted by and each time she calls they tell her they have not yet received the referral. For the third time, today the patient reached out to her urology office and was told they would send a referral again today. Patient denies any pain when she urinates but does note a stabbing pain that is pretty consistent in her bladder area. She feels like her urethral prolapse may be worse now. No fever, nausea, vomiting, bowel changes. I reviewed the patient's past medical record including most recent urology outpatient note as well as her cystoscopy from 05-30-2025 which was essentially normal. I also reviewed gynecology note from 05-12-2025 at which time they noted urethral prolapse that had improved from previous visits. Related Data Home Medications ?Medication ?Instructions ?Recorded ?Confirmed aspirin 81 mg tablet,delayed 81 mg PO DAILY 09/27/24 1 release (Adult Aspirin Regimen) conjugated estrogens 1.25 mg 1.25 mg PO TID 05/12/25 1 tablet (Premarin) Previous Rx's ?Medication ?Instructions ?Recorded albuterol sulfate 90 mcg/actuation 2 puff inhalation Q 4-6H PRN 12/03/24 aerosol inhaler shortness of breath or wheez ing #18 grams fluticasone propionate 50 1 spray intranasal BID #16 g anatoliy 01/10/25 mcg/actuation nasal spray,suspension (Allergy Relief (fluticasone)) alendronate 10 mg tablet 10 mg PO DAILY #30 tabs 02/11 09/07 furosemide 40 mg tablet 40 mg PO DAILY 30 days #30 t abs 03/03/25 ondansetron 4 mg disintegrating 4 mg PO Q6H PRN nausea and 03/24/25 tablet vomiting #20 tabs dicyclomine 10 mg capsule 10 mg PO TID #90 caps apixaban 5 mg tablet (Eliquis) 5 mg PO BID #60 tabs trazodone 100 mg tablet 100 mg PO DAILY #30 tabs pantoprazole 40 mg tablet,delayed See Rx Instructions .Route 05/05/25 release .COMPLEX #60 tabs pfkupmmtlstdplx-xwliphedutwrkej-TT 10 ml PO Q6H PRN co ld symptoms 05/16/25 2 mg-30 mg-10 mg/5 mL oral syrup #118 mL (Bromfed DM) oxybutynin chloride 10 mg 10 mg PO DAILY 90 days #90 t abs 05/19/25 tablet,extended release 24 hr escitalopram oxalate 20 mg tablet 20 mg PO DAILY #30 t abs 05/20/25 (Lexapro) diazepam 5 mg tablet (Valium) 5 mg PO TID PRN anxiety #90 tabs 05/21/25 lisinopril 20 mg tablet 20 mg PO BID #60 tabs estradiol 0.01% (0.1 mg/gram) 1 appful vaginal DAILY # 42.5 grams 05/30/25 vaginal cream (Estrace) nystatin 100,000 unit/mL oral 5 ml PO QID 7 days #140 mL 05/30/25 suspension polyethylene glycol 3350 17 17 g PO DAILY #119 grams 1 gram/dose oral powder (Miralax) ibuprofen 600 mg tablet 600 mg PO TID #90 tabs 06/03 Allergies Allergy/AdvReac Type Severity Reaction Status Date / Time cephalexin (From Keflex) Allergy Severe Difficulty Verified 06/05/25 14:24 Breathing prochlorperazine Allergy Severe Swelling Verified 06/05/25 14:24 (PROCHLORPERAZINE) of Lip/Tongue/Throat codeine (CODEINE) Allergy Unknown VOMITING / Verified 06/05/25 14:24 NAUSEA prednisone (PREDNISONE) Allergy Unknown BP ISSUES Verified 06/05/25 14:24 promethazine (From PHENERGAN) Allergy Unknown Unknown Verified 06/05/25 14:24 allergy reaction metoclopramide (From Reglan) Allergy Nausea Verified 06/05/25 14:24 hydroxyzine (From Vistaril) AdvReac Hives Verified 06/05/25 14:24 PFSH PFSH Disclaimer: The information contained in this section may have been updated after the patient was seen, as this information can be updated by other users. Medical History Upper respiratory tract infection New onset a-fib Dyspepsia Dysphagia Common bile duct dilation Abnormal findings on imaging of biliary tract Recurrent acute otitis media of right ear Nausea & vomiting Continue the promethazine see above. Chest pain Near syncope Chronic abdominal pain Anxiety related tremor High globulin level Shakiness SOB (shortness of breath) Palpitations Bradycardia Screening for colon cancer Breast cancer screening by mammogram Mammogram done 10/2024 Crohn's disease Community acquired pneumonia Chronic kidney disease (HFpEF) heart failure with preserved ejection fraction Abnormal chest CT Schatzki's ring Sinus bradycardia Insomnia Depression Anxiety Osteoporosis Allergies History of anemia History of constipation Sphincter of Oddi dysfunction HTN (hypertension) Bilateral lower extremity edema Surgical History Lipoma of back Status post cholecystectomy H/O oral surgery History of appendectomy H/O total hysterectomy History of esophagogastroduodenoscopy (EGD) History of arthroscopy of right knee Status post knee surgery Status post right knee arthroscopy with partial medial meniscectomy date of surgery May 16, 2022 History of intestinal surgery Family History Other Cancer Heart attack Social History Smoking Status: Never smoker second hand exposure: No alcohol intake: never substance use type: denies use current occupational status: disabled Travel in the last 8 weeks?: None household members: none housing: apartment number of children: 2 current occupational exposures/hazards: No caffeine: Yes Have you lived/traveled outside [place] in past 30 days?: No Contact w/someone who lives/traveled outside US past 30 days?: No Exposure to someone with infectious disease in past 14 days?: No Do you have a fever (greater than 100.4 F or 38 C)?: No Have you tested positive for COVID-19?: No Exposed to someone with COVID-19 in past 14 days?: No Do you have a sore throat?: No Do you have a cough?: No Do you have any weakness?: No Do you have any diarrhea?: No Are you experiencing any unusual bleeding?: No Do you have any muscle aches/pain?: No Do you have any abdominal pain?: No Are you experiencing loss of taste or smell?: No Other Medical History Have you received the Flu Vaccine for this season: No Have you received the Pneumonia Vaccine: Yes ROS Obtained: Yes Systems reviewed as appropriate & no additional complaints except as documented Physical Exam General General appearance: alert and in no apparent distress Comment: Well appearing, NAD. Sitting comfortably on hospital stretcher. Head Head exam: atraumatic and normocephalic Neck Neck exam: Present full ROM Respiratory Respiratory exam: Present normal lung sounds bilaterally; Absent respiratory distress Cardiovascular Cardiovascular exam: Present regular rate and normal rhythm Abdominal Exam Abdominal exam: Present soft; Absent distention or tenderness External exam: Present normal external exam Speculum exam: Present other (mild urethral prolapse); Absent vaginal discharge or vaginal bleeding Neurological Exam Neurological exam: Present alert and oriented X3 Medical Decision Making Medical Records Screening: Per USPSTF and CDC recommendations, given the prevalence of disease in our region, it is our hospital?s policy to screen for HIV and viral Hepatitis for all patients aged 18 and over and those with ongoing risk factors. Grant Inquiry Pt receiving controlled substance: No Vital Signs: 06/10/25 19:02 06/10/25 21:08 Temperature 98.0 F 98.0 F Temperature Source Temporal Artery Scan Pulse Rate 63 Pulse Rate [Right] 63 Respiratory Rate 18 18 Blood Pressure 186/65 H Blood Pressure [Right Arm] 186/65 H Blood Pressure Mean [Right Arm] 105 Blood Pressure Source [Right Arm] Automatic Cuff Blood Pressure Position [Right Arm] Sitting 02 Sat by Pulse Oximetry 96 Oxygen Delivery Method Room Air Room Air Lab Data Lab Results 06/10/25 19:10: Urine Color Yellow, Urine Appearance Clear, Urine pH 6.0, Ur Specific [place] >= 1.030, Urine Protein Trace, Urine Glucose (UA) Negative, Urine Ketones Negative, Urine Blood Negative, Urine Nitrate Negative, Urine Bilirubin Negative, Urine Urobilinogen 0.2, Ur Leukocyte Esterase Negative, Urine RBC None, Urine WBC Occasional, Ur Squamous Epith Cells Occasional, Urine Bacteria Trace Orders (Tests/Meds): ED MEDICATIONS Discontinued Medications Generic Name Dose Route Start Last Admin Trade Name Freq PRN Reason Stop Dose Admin Acetaminophen 1,000 mg 06/10/25 20:52 06/10/25 21:06 Acetaminophen 500mg Tab PO 06/10/25 20:53 Not Given ONCE ONE Ibuprofen 600 mg 06/10/25 20:52 06/10/25 21:06 Ibuprofen 600 Mg Tablet PO 06/10/25 20:53 Not Given ONCE ONE Phenazopyridine HCl 100 mg 06/10/25 20:52 06/10/25 21:06 Phenazopyridine 200mg Tablet PO 06/10/25 20:53 Not Given ONCE ONE ORDERS Category Date Time Status Urinalysis and Microscopic Stat Lab 06/10/25 19:10 Completed Medical Decision Narrative: In summary, this is a 69-year-old female with a history of HFpEF, stress urinary incontinence, paroxysmal atrial fibrillation, vaginal atrophy, incontinence, Crohn's disease, anxiety, hypertension, osteoarthritis who presents to the emergency department today for ongoing and worsening suprapubic/bladder/urethral pain. Patient reports a known history of vaginal and urethral prolapse. 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 She recently had a normal cystoscopy on 05-30-2025. She was ultimately referred to urology but has not been contacted about referrals. Pain has been persistent which is why she presents to the emergency department. On exam patient is well-appearing and in no acute distress. Sitting comfortably on hospital stretcher. The abdomen is soft and nondistended. Nontender to palpation. No guarding. Respiratory rate and effort are normal. Lungs are clear to auscultation bilaterally without adventitious sounds. Differential diagnoses include but are not limited to stress urinary incontinence, cystitis, urinary tract infection, vaginal prolapse, urethral prolapse, among others. We will perform pelvic exam to evaluate patient's report of worsening prolapse. On pelvic examination, there is mild urethral prolapse. No vaginal or rectal prolapse. No vaginal discharge. Patient's greatest concern at this time is her inability to establish care at urology. Because of this I contacted [facility] and spoke with urology team regarding this patient. They will contact the patient to arrange follow-up visit. I gave the patient's cell phone and home phone number to their group. They will reach out for follow-up. Patient declined ibuprofen, Tylenol, and Pyridium stating that she has been taking this at home without much relief. We discussed that stronger medications such as opioids are not indicated for her condition and further management needs to be directed by the specialist. Patient voices understanding to this and apologizes for asking. [facility] will reach out to her for follow-up visit. Patient was discharged home in good condition. Critical Care Critical Care Time Critical Care Time: No
--- OUTSIDE RECORDS SUMMARY | 2025-06-10 19:21 | XMS_ITS | Clinical Summary ---
Author Organization [facility] Address [address] [place] [address] Care Team Providers Care Shuttle Bus Driver Name Role Phone Reuben Fong MD Primary Care Provider [phone] Social History Tobacco Use Types Packs/Day Years [...] (2 of 2 - PCV) 01/03/2019 01/03/2018 [id number] Vaccine (2 - season) 2025 11/18/2020 [facility]-Influenza [...] complete this topic Insurance Dr [place], [place] [id number] [employer] [place] [address] Care Teams Shuttle Bus Driver Relationship Specialty Start Date End Date Reuben Fong MD [address] [place] [address] [place] [id number] PCP - General 12/25/20
--- OUTSIDE RECORDS SUMMARY | 2025-06-10 19:21 | XMS_ITS | Clinical Summary ---
Author Organization [facility] Address [address] [place] [id number] Care Team Providers Care Grinder Operator Automatic Name Role Phone Unavailable Primary Care Provider [...] therelease of HIV test results or diagnoses. [id number] Social History Tobacco Use Types Packs/Day Years Used Date Smoking Tobacco: Never Assessed Comments Unknown Sex and Gender Information Value Date Recorded Sex Assigned at Not on file Legal Sex Female 10:53 PM EST Gender Identity Not on file Sexual Orientation Not on file Plan of Treatment Not on file
[2025-06-10 19:35] LABS: Microscopic, Urine URINE MICROSCOPIC (MICROSCOPIC)
[2025-06-10 19:51] LABS: Bilirubin,Urine Negative (Negative); Color,Urine YELLOW (Yellow); Glucose,Urine (UA) Negative (Negative); Ketones,Urine Negative (Negative); Leukocyte Esterase,Urine Negative (Negative); PH,Urine 6.0 (5.0-8.5); Protein,Urine TRACE (Negative); Specific Gravity, Urine >= 1.030 (1.005-1.030); Urobilinogen,Urine 0.2 EU/dl (0.2)
[2025-06-10 20:33] LABS: Bacteria,Urine Trace /lpf; Squamous Epithelial Cell,Urine Occasional #/hpf (0-5); WBC,Urine Occasional #/hpf (0-3)
[2025-06-10 21:08] VITALS: BP 186/65; PULSE 63; RESP 18; TEMP 36.7; O2SAT 96
== END 2025-06-10 21:18 | disposition home or self-care (01) ==
PROVIDERS: Emergency Provider Student in an Organized Health Care Education/Training Program; PCP Family Medicine
DX: N36.8 Other specified disorders of urethra (principal); R39.15 Urgency of urination
CPT/HCPCS: 81001; 99283

== ENCOUNTER 2025-06-26 14:00 | Emergency (ER) | payer MEDICARE, OTHER, SELFPAY ==
[2025-06-26 14:00] VITALS: BP 152/100; PULSE 66; RESP 13; TEMP 36.8; O2SAT 97; BMI 28.8
[2025-06-26 14:07] VITALS: BP 152/100; PULSE 66; O2SAT 96
[2025-06-26 14:11] VITALS: BP 158/133; PULSE 70; O2SAT 95
--- NOTE | 2025-06-26 14:11 | XR_ITS ---
FINAL REPORT CLINICAL HISTORY: cough, sore throat for 1 week, came to ER to be tested for covid & flu, no taste or smell COMPARISON: 04/10/2025 FINDINGS: No acute pulmonary opacity is present. Left-sided chest port terminates in the SVC. There is no evidence of effusion or pneumothorax. Mediastinum is unremarkable. Heart size is normal. IMPRESSION: No acute abnormality. Reviewed, Interpreted and Dictated by Santo Gerardo MD Transcribed by Ivanna Martin Authenticated and [facility]
[2025-06-26 14:12] VITALS: BP 171/77; PULSE 65; O2SAT 97
[2025-06-26 14:16] LABS: Coronavirus 19, PCR Not Detected (NotDetected); Influenza A, PCR Not Detected (NotDetected); Influenza B, PCR Not Detected (NotDetected)
--- NOTE | 2025-06-26 14:18 | ED_ITS ---
<Statement entered by Madison Barroso MD - 06/30/25 11:49> I was consulted by the LOTUS, and we discussed the complexity of the problems being addressed. I approved the treatment and management plan for this patient's care in the emergency department, thus performing a substantive portion of the medical decision making. Madison Barroso MD, RIO, FACEP Discharge Plan Disposition Chief Complaint: Sore Throat Prescriptions Prescriptions: No Action Rexulti 1 mg tablet 1 mg PO DAILY Qty: 30 2RF lisinopril 20 mg tablet 20 mg PO BID Qty: 60 5RF nystatin 100,000 unit/mL suspension 5 ml PO QID 7 Days Qty: 140 0RF Rx Instructions: swish and swallow ibuprofen 600 mg tablet 600 mg PO TID Qty: 90 1RF aspirin [Adult Aspirin Regimen] 81 mg tablet,delayed release (DR/EC) 81 mg PO DAILY albuterol sulfate 90 mcg/actuation HFA aerosol inhaler 2 puff inhalation Q4-6H PRN (Reason: shortness of breath or wheezing) Qty: 18 2RF fluticasone propionate [Allergy Relief (fluticasone)] 50 mcg/actuation spray,suspension 1 spray intranasal BID Qty: 16 2RF Rx Instructions: administer into each nostril 2x/day furosemide 40 mg tablet 40 mg PO DAILY 30 Days Qty: 30 2RF Eliquis 5 mg tablet 5 mg PO BID Qty: 60 2RF Premarin 1.25 mg tablet 1.25 mg PO TID ondansetron 4 mg tablet,disintegrating 4 mg PO Q6H PRN (Reason: nausea and vomiting) Qty: 20 0RF estradiol [Estrace] 0.01 % (0.1 mg/gram) cream 1 appful vaginal DAILY Qty: 42.5 2RF Rx Instructions: Use finger technique daily x 14 days and 3 x weekly thereafter oxybutynin chloride 10 mg tablet extended release 24hr 10 mg PO DAILY 90 Days Qty: 90 1RF alendronate 10 mg tablet 10 mg PO DAILY Qty: 30 2RF dicyclomine 10 mg capsule 10 mg PO TID Qty: 90 12RF Rx Instructions: Please take 1 capsule by mouth 3 times daily before meals pantoprazole 40 mg tablet,delayed release (DR/EC) See Rx Instructions .ROUTE .COMPLEX Qty: 60 2RF Dose Instruction: TAKE ONE TABLET BY MOUTH TWICE DAILY Rx Instructions: TAKE ONE TABLET BY MOUTH TWICE DAILY escitalopram oxalate [Lexapro] 20 mg tablet 20 mg PO DAILY Qty: 30 2RF trazodone 100 mg tablet 100 mg PO DAILY Qty: 30 2RF amlodipine 5 mg tablet 5 mg PO DAILY Qty: 30 2RF diazepam [Valium] 5 mg tablet 5 mg PO TID PRN (Reason: anxiety) Qty: 90 0RF polyethylene glycol 3350 [Miralax] 17 gram/dose powder 17 g PO DAILY Qty: 119 0RF Referrals Follow up/Referrals: Colin Smith MD [Primary Care Provider, Family Practice] - See instructions Print Language Print Language: Tajik Discharge ED Provider: Madison Barroso General Adult HPI General Chief complaint: Sore Throat Stated complaint: sore throat, congestion Time Seen by Provider: 06/26/25 14:03 History of Present Illness HPI narrative: 69-year-old female presents to the ED today for complaint of cough, congestion and sore throat for about a week. She states that she has had no fevers or chills. She is concerned that she may have COVID or flu and she does not want to be around her grandchild who is 3 if she has something. Related Data Home Medications ?Medication ?Instructions ?Recorded ?Confirmed aspirin 81 mg tablet,delayed 81 mg PO DAILY 09/27/24 1 release (Adult Aspirin Regimen) conjugated estrogens 1.25 mg 1.25 mg PO TID 05/12/25 1 tablet (Premarin) Previous Rx's ?Medication ?Instructions ?Recorded albuterol sulfate 90 mcg/actuation 2 puff inhalation Q 4-6H PRN 12/03/24 aerosol inhaler shortness of breath or wheez ing #18 grams fluticasone propionate 50 1 spray intranasal BID #16 g anatoliy 01/10/25 mcg/actuation nasal spray,suspension (Allergy Relief (fluticasone)) alendronate 10 mg tablet 10 mg PO DAILY #30 tabs 02/11 09/07 furosemide 40 mg tablet 40 mg PO DAILY 30 days #30 t abs 03/03/25 ondansetron 4 mg disintegrating 4 mg PO Q6H PRN nausea and 03/24/25 tablet vomiting #20 tabs dicyclomine 10 mg capsule 10 mg PO TID #90 caps apixaban 5 mg tablet (Eliquis) 5 mg PO BID #60 tabs pantoprazole 40 mg tablet,delayed See Rx Instructions .Route 05/05/25 release .COMPLEX #60 tabs escitalopram oxalate 20 mg tablet 20 mg PO DAILY #30 t abs 05/20/25 (Lexapro) lisinopril 20 mg tablet 20 mg PO BID #60 tabs nystatin 100,000 unit/mL oral 5 ml PO QID 7 days #140 mL 05/30/25 suspension polyethylene glycol 3350 17 17 g PO DAILY #119 grams 1 gram/dose oral powder (Miralax) ibuprofen 600 mg tablet 600 mg PO TID #90 tabs 06/03 brexpiprazole 1 mg tablet (Rexulti) 1 mg PO DAILY #30 tabs 06/11/25 trazodone 100 mg tablet 100 mg PO DAILY #30 tabs estradiol 0.01% (0.1 mg/gram) 1 appful vaginal DAILY # 42.5 grams 06/16/25 vaginal cream (Estrace) oxybutynin chloride 10 mg 10 mg PO DAILY 90 days #90 t abs 06/16/25 tablet,extended release 24 hr amlodipine 5 mg tablet 5 mg PO DAILY #30 tabs 06/18 diazepam 5 mg tablet (Valium) 5 mg PO TID PRN anxiety #90 tabs 06/20/25 Allergies Allergy/AdvReac Type Severity Reaction Status Date / Time cephalexin (From Keflex) Allergy Severe Difficulty Verified 06/16/25 13:34 Breathing prochlorperazine Allergy Severe Swelling Verified 06/16/25 13:34 (PROCHLORPERAZINE) of Lip/Tongue/Throat codeine (CODEINE) Allergy Unknown VOMITING / Verified 06/16/25 13:34 NAUSEA prednisone (PREDNISONE) Allergy Unknown BP ISSUES Verified 06/16/25 13:34 promethazine (From PHENERGAN) Allergy Unknown Unknown Verified 06/16/25 13:34 allergy reaction metoclopramide (From Reglan) Allergy Nausea Verified 06/16/25 13:34 hydroxyzine (From Vistaril) AdvReac Hives Verified 06/16/25 13:34 [facility] Disclaimer: The information contained in this section may have been updated after the patient was seen, as this information can be updated by other users. Medical History Upper respiratory tract infection New onset a-fib Dyspepsia Dysphagia Common bile duct dilation Abnormal findings on imaging of biliary tract Recurrent acute otitis media of right ear Nausea & vomiting Continue the promethazine see above. Chest pain Near syncope Chronic abdominal pain Anxiety related tremor High globulin level Shakiness SOB (shortness of breath) Palpitations Bradycardia Screening for colon cancer Breast cancer screening by mammogram Mammogram done 10/2024 Crohn's disease Community acquired pneumonia Chronic kidney disease (HFpEF) heart failure with preserved ejection fraction Abnormal chest CT Schatzki's ring Sinus bradycardia Insomnia Depression Anxiety Osteoporosis Allergies History of anemia History of constipation Sphincter of Oddi dysfunction HTN (hypertension) Bilateral lower extremity edema Surgical History Lipoma of back Status post cholecystectomy H/O oral surgery History of appendectomy H/O total hysterectomy History of esophagogastroduodenoscopy (EGD) History of arthroscopy of right knee Status post knee surgery Status post right knee arthroscopy with partial medial meniscectomy date of surgery May 16, 2022 History of intestinal surgery Family History Other Cancer Heart attack Social History Smoking Status: Never smoker second hand exposure: No alcohol intake: never substance use type: denies use current occupational status: disabled Travel in the last 8 weeks?: None household members: none housing: apartment number of children: 2 current occupational exposures/hazards: No caffeine: Yes Have you lived/traveled outside [place] in past 30 days?: No Contact w/someone who lives/traveled outside US past 30 days?: No Exposure to someone with infectious disease in past 14 days?: No Do you have a fever (greater than 100.4 F or 38 C)?: No Have you tested positive for COVID-19?: No Exposed to someone with COVID-19 in past 14 days?: No Do you have a sore throat?: No Do you have a cough?: No Do you have shortness of breath?: No Do you have a headache?: No Do you have any weakness?: No Are you experiencing any nausea/vomitting?: No Do you have any diarrhea?: No Are you experiencing any unusual bleeding?: No Do you have any muscle aches/pain?: No Do you have any abdominal pain?: No Are you experiencing loss of taste or smell?: No Other Medical History Have you received the Flu Vaccine for this season: No Have you received the Pneumonia Vaccine: Yes ROS Obtained: Yes Systems reviewed as appropriate & no additional complaints except as documented Constitutional Constitutional: Reports as per HPI Physical Exam General General appearance: alert and in no apparent distress Head Head exam: normocephalic Eye Eye exam: Present PERRL and EOMI ENT ENT exam: Present normal oropharynx and mucous membranes moist Neck Neck exam: Present full ROM and trachea midline Respiratory Respiratory exam: Present wheezes Cardiovascular Cardiovascular exam: Present normal rhythm, bradycardia, normal heart sounds, +S1 and +S2 Abdominal Exam Abdominal exam: Present soft and normal bowel sounds Extremities Exam Extremities exam: Present full ROM and normal capillary refill Neurological Exam Neurological exam: Present alert, oriented X3 and normal gait Skin Skin exam: Present warm, dry and intact Medical Decision Making Medical Records Screening: Per USPSTF and CDC recommendations, given the prevalence of disease in our region, it is our hospital?s policy to screen for HIV and viral Hepatitis for all patients aged 18 and over and those with ongoing risk factors. Grant Inquiry Pt receiving controlled substance: No Grant was queried for this patient: No Vital Signs: 06/26/25 14:00 06/26/25 14:07 06/26/25 14:11 Temperature 98.2 F Temperature Source Oral Pulse Rate 66 70 Pulse Rate [Left Radial] 66 Respiratory Rate 13 Blood Pressure 152/100 H 158/133 H Blood Pressure [Right Arm] 152/100 H Blood Pressure Mean [Right Arm] 117 02 Sat by Pulse Oximetry 97 96 95 Oxygen Delivery Method Room Air 06/26/25 14:12 Temperature Temperature Source Pulse Rate 65 Pulse Rate [Left Radial] Respiratory Rate Blood Pressure 171/77 H Blood Pressure [Right Arm] Blood Pressure Mean [Right Arm] 02 Sat by Pulse Oximetry 97 Oxygen Delivery Method Lab Data Lab Results 06/26/25 14:12: SARS-CoV-2 (PCR) Not detected, Influenza A Untype (PCR) Not detected, Influenza Type B (PCR) Not detected, Group A Strep Rapid Negative Orders (Tests/Meds): ED MEDICATIONS Generic Name Dose Route Start Last Admin Trade Name Freq PRN Reason Stop Dose Admin Benzonatate 200 mg 06/26/25 15:45 06/26/25 15:41 Benzonatate 100mg Capsule PO 07/26/25 15:44 200 mg ONCE CEM Administration Discontinued Medications Generic Name Dose Route Start Last Admin Trade Name Freq PRN Reason Stop Dose Admin Ketorolac Tromethamine 30 mg 06/26/25 15:34 06/26/25 15:40 Ketorolac 30mg/Ml Vial IM 06/26/25 15:35 30 mg ONCE ONE Administration ORDERS Category Date Time Status Chest XR -- portable [XR chest portable] Stat Exams 06/26/25 14:11 Completed Rapid PCR Covid and Flu A/B Stat Lab 06/26/25 14:12 Completed Strep Scrn Group A (Rapid) Stat Lab 06/26/25 14:12 Completed Strep Screen Confirmation Stat Micro 06/26/25 14:12 Received Medical Decision Narrative: patient is a 69-year-old female presenting to the emergency department for evaluation of sore throat, cough and congestion. Patient is hemodynamically stable and nontoxic-appearing upon arrival, afebrile. Differential diagnosis includes strep, flu, COVID. Workup will be conducted with COVID, flu, strep. Patient's COVID flu and strep are negative. Patient does still have a cough and she would like some cough medication. Patient otherwise is safe for discharge home. Patient and I have discussed return precautions. Patient is safe for discharge. Critical Care Critical Care Time Critical Care Time: No
--- OUTSIDE RECORDS SUMMARY | 2025-06-26 14:24 | XMS_ITS | Clinical Summary ---
Author Organization Healthcare Address [address] 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 Pneumatic Name Role Phone Colin Smith MD Primary Care Provider [phone] Social History Tobacco Use Types Packs/Day Years Used Date Smoking Tobacco: Never Comments Unknown Sex and Gender Information Value Date Recorded Sex Assigned at Not on file Legal Sex Female 7:52 PM EDT Gender Identity Not on file Sexual Orientation Not on file Plan of Treatment Upcoming Encounters Date Type Department Care Team (Late st Contact Info) Description 07/02/2025 1:20 PM EST [facility] [address] [place] [address] Ana Broussard, DRY CLEANER PRESSER, DNP [address] [place] [address] Health Maintenance Due Date Last Done Comments [facility]-Bone Density Scan 1955 [facility]-Depression Screening 1955 [facility]-Hepatitis C Screening 1955 [facility]-Medicare Annual Wellness (AWV) 1955 [facility]-/Child/Adol SDOH Screenings 1955 [facility]- SDOH Screenings 10/27/1973 [facility]-Adult SDOH Screenings 10/27/1973 CT Colonography 10/27/2000 Colonoscopy 10/27/2000 FIT-DNA 10/27/2000 FIT 10/27/2000 FOBT 10/27/2000 Sigmoidoscopy 10/27/2000 [facility]-Colorectal Cancer Screening 10/27/2000 [facility]-Breast Cancer Screening 10/27/2005 [facility]-Zoster Vaccines (2 of 3) 07/10/2017 05/15/2017 [facility]-Pneumococcal Vaccine: 50 + Years (2 of 2 - PCV) 01/03/2019 01/03/2018 [id number] Vaccine (2 - season) 2025 11/18/2020 [facility]-Influenza Vaccine (#1) 04/14/202506/01, 05/15/2017 [facility]-RSV Vaccine: 60+ Years o r (1 - 1-dose 75+ series) 10/27/2030 [facility]-DTaP,Tdap,and Td Vaccine s (2 - Td or Tdap) 05/15/2033 05/15/2023, 10/19/1996 HPV Vaccines Aged Out No longer eligi [...] to complete [place] [address] [place] [address] [employer] MEDICA[employer] MEDICARE Care Teams Drill Operator Pneumatic Relationship Specialty Start Date End Date Colin Smith MD [address] [place] [address] PCP - General 06/11/25
--- OUTSIDE RECORDS SUMMARY | 2025-06-26 14:24 | XMS_ITS | Clinical Summary ---
Author Organization [facility] Address [address] [place] [id number] Care Team Providers Care Sql Server Consultant Name Role Phone Unavailable Primary Care Provider [...] therelease of HIV test results or diagnoses. [id number] Social History Tobacco Use Types Packs/Day Years Used Date Smoking Tobacco: Never Assessed Comments Unknown Sex and Gender Information Value Date Recorded Sex Assigned at Not on file Legal Sex Female 10:53 PM EST Gender Identity Not on file Sexual Orientation Not on file Plan of Treatment Not on file
[2025-06-26 14:27] LABS: Strep Scrn Group A (Rapid) Negative (Negative)
[2025-06-26] MEDS: KETOROLAC 30MG/ML VIAL 30 MG IM (15:40)
[2025-06-26] MEDS: BENZONATATE 100MG CAPSULE 200 MG PO (15:41)
[2025-06-26 16:02] VITALS: BP 153/97; PULSE 58; RESP 18; TEMP 36.7; O2SAT 95
== END 2025-06-26 16:03 | disposition home or self-care (01) ==
PROVIDERS: Nurse Practitioner; Emergency Provider Student in an Organized Health Care Education/Training Program; PCP Family Medicine
DX: J06.9 Acute upper respiratory infection, unspecified (principal)
CPT/HCPCS: 71045; 87430; 87636; 96372; 99284; J1885

== ENCOUNTER 2025-07-03 15:43 | Emergency (ER) | payer MEDICARE, OTHER, SELFPAY ==
--- OUTSIDE RECORDS SUMMARY | 2025-07-02 13:20 | XMS_ITS | Encounter Summary ---
Author Organization Healthcare Address [address] [place] [address] Care Team Providers Care Warehouse Operations Associate Name Role Phone Colin Smith MD Primary Care Provider [phone] Reason for Referral * (Routine) - Incomplete Specialty Diagnoses / Procedures Referred By Contac t Referred To Contact Diagnoses Urge incontinence Incontinence without sensory awareness Procedures UDS Ana Broussard APRN, DNP [address] [address] Phone: tel: fax: Referral ID Status Reason Start Date Expiration Date V isits Requested Visits Authorized [id number] Incomplete 07/02/2025 01/01/2027 1 1 Reason for Visit * Reason Comments Advice Only Encounter Details Date Type Department Care Team (Late st Contact Info) Description 07/02/2025 1:20 PM EST Consult [place] [facility] [address] [place] [address] Ana Broussard APRN, DNP [id number] [place] [address] Urge incontinence (Primary Dx); Incontinence without [...] Index - - documented in this encounter Miscellaneous Notes * Progress Notes - Ana Broussard, ROXIE, MEGHANA - 07/02/2025 1:20 PM EST [facility] Note Consulting provider: No ref. provider found CC: Advice Only HPI: History of Present Illness Angelica Gonzalez is a 69-year-old female who presents today for evaluation of urge incontinence.She has previously been seen by Dr. Leon at [facility] for urge incontinence and was last [...] (!) 146/86 Pulse: 66 Resp: 14 A truck driver flatbed was offered and was accepted and present [...] Ketones Negative Negative mg/dL POCT Urine Specific [place] 1.025 1.005 - 1.030 POCT Urine Blood [...] evaluation Plan: As above Ana Broussard APRN, DNP Verbal consent was obtained to use ambient [...] Care Team (Late st Contact Info) Description 07/28/2025 9:20 AM EST Office Visit [place] [facility] [address] [place] [address] Emely Ashford MD [address] [place] [address] Scheduled Orders Name Type Priority Associated Diagnoses [...] Region Laterality Modality Other Ana Broussard APRN, MEGHANA IMG POINT OF CARE ULTR ASOUND Final Result * POCT URINALYSIS DIPSTICK (07/02/2025 12:57 PM EST) POCT Urine Color Yellow 07/02/2025 12:59 PM EST [facility] POCT Urine Clarity Clear 07/02/2025 12:59 PM EST [facility] POCT Urine Glucose Negative Negative mg/dL 07/02/2025 12:59 PM EST [facility] POCT Urine Bilirubin Negative Negative mg/dL 07/02/2025 12:59 PM EST [facility] POCT Urine Ketones Negative Negative mg/dL 07/02/2025 12:59 PM EST [facility] POCT Urine Specific [place] 1.025 1.005 - 1.030 07/02/2025 12:59 PM EST [facility] POCT Urine Blood Negative Negative 07/02/2025 12:59 PM EST [facility] POCT pH, Urine 7.0 5.0 - 8.0 07/02/2025 12:59 PM EST [facility] POCT Protein, Urine Negative Negative mg/dL 07/02/2025 12:59 PM EST [facility] POCT Urobilinogen, Urine 0.2 0.2, 1.0 EU/dL 07/02/2025 12:59 PM EST [facility] POCT Nitrite, Urine Negative Negative 07/02/2025 12:59 PM EST [facility] POCT Urine Leukocyte Esterase Negative Negative 07/02/2025 12:59 PM EST [facility] Urine 07/02/2025 12:5 7 PM EST 07/02/2025 12:59 PM EST Ana Broussard APRN, MEGHANA LAB POINT OF C ARE TEST DOCKED DEVICE UNSOLICITED RESULTS Final Result [facility] [address], [place] documented in this encounter Visit Diagnoses [...] documented as of this encounter Care Teams Warehouse Operations Associate Relationship Specialty [place] [id number] PCP - General 06/11/25 documented as of this encounter
[2025-07-03 16:10] VITALS: BP 163/82; PULSE 58; RESP 18; TEMP 36.8; O2SAT 96; BMI 30.9
--- NOTE | 2025-07-03 16:29 | CT_ITS ---
PROCEDURE INFORMATION: Exam: CT Cervical Spine Without Contrast Exam date and time: 07/03/2025 5:03 PM Age: 69 years old Clinical indication: Injury or trauma; Fall; Blunt trauma TECHNIQUE: Imaging protocol: Computed tomography of the cervical spine without contrast. Radiation optimization: All CT scans at this facility use at least one of these dose optimization techniques: automated exposure control; mA and/or kV adjustment per patient size (includes targeted exams where dose is matched to clinical indication); or iterative reconstruction. COMPARISON: CT CERVICAL SPINE WO CON 05/15/2024 5:44 PM FINDINGS: Bones: No evidence of acute fracture or malalignment. 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 Lungs: No acute abnormality or suspicious mass lesion in the visualized lung apices. Soft tissues: Unremarkable. IMPRESSION: No evidence of acute osseous abnormality in the cervical spine.
--- NOTE | 2025-07-03 16:29 | XR_ITS ---
PROCEDURE INFORMATION: Exam: XR Left Femur Exam date and time: 07/03/2025 5:00 PM Age: 69 years old Clinical indication: Injury or trauma; Fall; Blunt trauma; Thigh or upper leg; Left; Additional info: Pain from fall TECHNIQUE: Imaging protocol: Radiologic exam of the left femur. Views: 2 views. COMPARISON: CR XR FEMUR LT 2V 01/02/2022 12:45 AM FINDINGS: Bones/joints: Unremarkable. No acute fracture. Soft tissues: Unremarkable. IMPRESSION: No acute findings.
--- NOTE | 2025-07-03 16:29 | XR_ITS ---
PROCEDURE INFORMATION: Exam: XR Left Hip Exam date and time: 07/03/2025 4:58 PM Age: 69 years old Clinical indication: Injury or trauma; Fall; Blunt trauma (contusions or hematomas); Left; Hip TECHNIQUE: Imaging protocol: Radiologic exam of the left hip. Views: 2 or 3 views hip with pelvis when performed. COMPARISON: CT ABDOMEN PELVIS W CON 05/31/2025 7:32 PM FINDINGS: Bones/joints: Unremarkable. No acute fracture. Soft tissues: Unremarkable. IMPRESSION: No acute findings.
--- NOTE | 2025-07-03 16:29 | CT_ITS ---
PROCEDURE INFORMATION: Exam: CT Maxillofacial Without Contrast Exam date and time: 07/03/2025 5:01 PM Age: 69 years old Clinical indication: Injury or trauma; Fall; Blunt trauma (contusions or hematomas); Forehead and nose TECHNIQUE: Imaging protocol: Computed tomography of the face without contrast. Radiation optimization: All CT scans at this facility use at least one of these dose optimization techniques: automated exposure control; mA and/or kV adjustment per patient size (includes targeted exams where dose is matched to clinical indication); or iterative reconstruction. COMPARISON: 1. CT HEAD/BRAIN WO CON 05/15/2024 5:[address] HEAD/BRAIN WO CON 07/03/2025 5:00 PM FINDINGS: Paranasal sinuses: No air-fluid levels. Orbital cavities: Globes and orbital structures are unremarkable. Bones: Chronic left nasal bone fracture deformity, unchanged from 05/15/2024 CT. No evidence of acute fracture. Pterygoid plates and lamina papyracea are intact. Bilateral temporomandibular joints are congruent. Soft tissues: Unremarkable. IMPRESSION: No acute findings.
--- NOTE | 2025-07-03 16:29 | CT_ITS ---
PROCEDURE INFORMATION: Exam: CT Head Without Contrast Exam date and time: 07/03/2025 5:00 PM Age: 69 years old Clinical indication: Injury or trauma; Fall; Blunt trauma (contusions or hematomas) TECHNIQUE: Imaging protocol: Computed tomography of the head without contrast. Radiation optimization: All CT scans at this facility use at least one of these dose optimization techniques: automated exposure control; mA and/or kV adjustment per patient size (includes targeted exams where dose is matched to clinical indication); or iterative reconstruction. COMPARISON: 1. CT HEAD/BRAIN WO CON 05/15/2024 5:42 PM 2. MR HEAD/BRAIN WO/W CON 04/04/2024 4:18 PM FINDINGS: Brain: Global cerebral volume loss. No acute intracranial hemorrhage. No extra-axial fluid collection. No mass effect or midline shift. Periventricular and subcortical white matter hypodensities compatible with chronic hypertensive microvascular disease. Physiologic calcium deposit incidentally noted in the basal ganglia. Cerebral ventricles: No hydrocephalus. Paranasal sinuses: No air fluid levels. Mastoid air cells: Left mastoid effusion, similar to prior exams. Right mastoid air cells are clear. Bones: No evidence of acute calvarial or skull base fracture. Soft tissues: Unremarkable. IMPRESSION: 1. No evidence of acute intracranial abnormality. 2. Left mastoid effusion, similar to prior exams. 3. Additional chronic and/or non-acute ancillary findings are detailed above.
--- NOTE | 2025-07-03 16:42 | PC.NURSE ---
patient gone for CT at this time.
--- NOTE | 2025-07-03 16:45 | ED_ITS ---
<Statement entered by Luisana Bergman DO - 07/03/25 22:27> I was consulted by the LOTUS, and we discussed the complexity of the problems being addressed. I approved the treatment and management plan for this patient's care in the emergency department, thus performing a substantive portion of the medical decision making. Luisana Bergman DO Discharge Plan Disposition Patient Disposition: Home, Self-Care Prescriptions Prescriptions: No Action Rexulti 1 mg tablet 1 mg PO DAILY Qty: 30 2RF lisinopril 20 mg tablet 20 mg PO BID Qty: 60 5RF nystatin 100,000 unit/mL suspension 5 ml PO QID 7 Days Qty: 140 0RF Rx Instructions: swish and swallow ibuprofen 600 mg tablet 600 mg PO TID Qty: 90 1RF aspirin [Adult Aspirin Regimen] 81 mg tablet,delayed release (DR/EC) 81 mg PO DAILY albuterol sulfate 90 mcg/actuation HFA aerosol inhaler 2 puff inhalation Q4-6H PRN (Reason: shortness of breath or wheezing) Qty: 18 2RF fluticasone propionate [Allergy Relief (fluticasone)] 50 mcg/actuation spray,s uspension 1 spray intranasal BID Qty: 16 2RF Rx Instructions: administer into each nostril 2x/day furosemide 40 mg tablet 40 mg PO DAILY 30 Days Qty: 30 2RF Eliquis 5 mg tablet 5 mg PO BID Qty: 60 2RF Premarin 1.25 mg tablet 1.25 mg PO TID ondansetron 4 mg tablet,disintegrating 4 mg PO Q6H PRN (Reason: nausea and vomiting) Qty: 20 0RF estradiol [Estrace] 0.01 % (0.1 mg/gram) cream 1 appful vaginal DAILY Qty: 42.5 2RF Rx Instructions: Use finger technique daily x 14 days and 3 x weekly thereafter oxybutynin chloride 10 mg tablet extended release 24hr 10 mg PO DAILY 90 Days Qty: 90 1RF alendronate 10 mg tablet 10 mg PO DAILY Qty: 30 2RF dicyclomine 10 mg capsule 10 mg PO TID Qty: 90 12RF Rx Instructions: Please take 1 capsule by mouth 3 times daily before meals pantoprazole 40 mg tablet,delayed release (DR/EC) See Rx Instructions .ROUTE .COMPLEX Qty: 60 2RF Dose Instruction: TAKE ONE TABLET BY MOUTH TWICE DAILY Rx Instructions: TAKE ONE TABLET BY MOUTH TWICE DAILY escitalopram oxalate [Lexapro] 20 mg tablet 20 mg PO DAILY Qty: 30 2RF trazodone 100 mg tablet 100 mg PO DAILY Qty: 30 2RF amlodipine 5 mg tablet 5 mg PO DAILY Qty: 30 2RF diazepam [Valium] 5 mg tablet 5 mg PO TID PRN (Reason: anxiety) Qty: 90 0RF promethazine-DM 6.25-15 mg/5 mL syrup 5 ml PO Q4-6H PRN (Reason: cough) Qty: 118 0RF benzonatate 200 mg capsule 200 mg PO TID PRN (Reason: cough) Qty: 30 0RF polyethylene glycol 3350 [Miralax] 17 gram/dose powder 17 g PO DAILY Qty: 119 0RF Referrals Follow up/Referrals: Colin Smith MD [Primary Care Provider, Family Practice] - See instructions Activity Restrictions/Add. Instructions Additional Instructions/Restrictions: Increase fluids and rest. Take Tylenol for pain as needed. Please return to your doctor for follow-up care tomorrow. All scans and x-rays were negative today. Clinical Impressions Clinical Impression: Facial pain, Fall, Neck pain, Headache Instructions Patient Instructions: How to Prevent Falls, DI for Headache, DI for Neck Pain Print Language Print Language: Slovak Discharge ED Provider: Luisana Bergman General Adult HPI General Chief complaint: Fall Stated complaint: AO-Fell an Hit Head 07/02/25 Time Seen by Provider: 07/03/25 16:26 Mode of Arrival: Ambulatory Source of Information: Patient Description of Symptoms (Recalled from ER Triage Doc. by RN): patient presents after a fall a half hour ago while walking my dog . she stated she tripped and fell forward, hitting her nose and left eye area as well as her lateral left leg. patient rates her leg pain 3/10 and her head 4/10. she takes aspirin and eliquis daily. History of Present Illness HPI narrative: 69-year-old female presents to the ED after a fall about 30 minutes ago. She was trying to put her dog on a leash and fell forward hit her left eye socket and hit her left hip left femur and complaining of pain in those areas. She does take aspirin and Eliquis daily. Related Data Home Medications ?Medication ?Instructions ?Recorded ?Confirmed aspirin 81 mg tablet,delayed 81 mg PO DAILY 09/27/24 1 08/30/24 release (Adult Aspirin Regimen) conjugated estrogens 1.25 mg 1.25 mg PO TID 05/12/25 1 08/30/24 tablet (Premarin) Previous Rx's ?Medication ?Instructions ?Recorded albuterol sulfate 90 mcg/actuation 2 puff inhalation Q 4-6H PRN 12/03/24 aerosol inhaler shortness of breath or wheez ing #18 grams fluticasone propionate 50 1 spray intranasal BID #16 g anatoliy 01/10/25 mcg/actuation nasal spray,suspension (Allergy Relief (fluticasone)) alendronate 10 mg tablet 10 mg PO DAILY #30 tabs 02/11 09/07 furosemide 40 mg tablet 40 mg PO DAILY 30 days #30 t abs 03/03/25 ondansetron 4 mg disintegrating 4 mg PO Q6H PRN nausea and 03/24/25 tablet vomiting #20 tabs dicyclomine 10 mg capsule 10 mg PO TID #90 caps apixaban 5 mg tablet (Eliquis) 5 mg PO BID #60 tabs pantoprazole 40 mg tablet,delayed See Rx Instructions .Route 05/05/25 release .COMPLEX #60 tabs escitalopram oxalate 20 mg tablet 20 mg PO DAILY #30 t abs 05/20/25 (Lexapro) lisinopril 20 mg tablet 20 mg PO BID #60 tabs nystatin 100,000 unit/mL oral 5 ml PO QID 7 days #140 mL 05/30/25 suspension polyethylene glycol 3350 17 17 g PO DAILY #119 grams 1 gram/dose oral powder (Miralax) ibuprofen 600 mg tablet 600 mg PO TID #90 tabs 06/03 brexpiprazole 1 mg tablet (Rexulti) 1 mg PO DAILY #30 tabs 06/11/25 trazodone 100 mg tablet 100 mg PO DAILY #30 tabs estradiol 0.01% (0.1 mg/gram) 1 appful vaginal DAILY # 42.5 grams 06/16/25 vaginal cream (Estrace) oxybutynin chloride 10 mg 10 mg PO DAILY 90 days #90 t abs 06/16/25 tablet,extended release 24 hr amlodipine 5 mg tablet 5 mg PO DAILY #30 tabs 06/18 diazepam 5 mg tablet (Valium) 5 mg PO TID PRN anxiety #90 tabs 06/20/25 benzonatate 200 mg capsule 200 mg PO TID PRN cough #30 caps 06/26/25 promethazine-DM 6.25 mg-15 mg/5 mL 5 ml PO Q4-6H PRN c ough #118 mL 06/27/25 oral syrup Allergies Allergy/AdvReac Type Severity Reaction Status Date / Time cephalexin (From Keflex) Allergy Severe Difficulty Verified 06/30/25 13:51 Breathing prochlorperazine Allergy Severe Swelling Verified 06/30/25 13:51 (PROCHLORPERAZINE) of Lip/Tongue/Throat codeine (CODEINE) Allergy Unknown VOMITING / Verified 06/30/25 13:51 NAUSEA prednisone (PREDNISONE) Allergy Unknown BP ISSUES Verified 06/30/25 13:51 promethazine (From PHENERGAN) Allergy Unknown Unknown Verified 06/30/25 13:51 allergy reaction metoclopramide (From Reglan) Allergy Nausea Verified 06/30/25 13:51 hydroxyzine (From Vistaril) AdvReac Hives Verified 06/30/25 13:51 PFS PFS Disclaimer: The information contained in this section may have been updated after the patient was seen, as this information can be updated by other users. Medical History Upper respiratory tract infection New onset a-fib Dyspepsia Dysphagia Common bile duct dilation Abnormal findings on imaging of biliary tract Recurrent acute otitis media of right ear Nausea & vomiting Continue the promethazine see above. Chest pain Near syncope Chronic abdominal pain Anxiety related tremor High globulin level Shakiness SOB (shortness of breath) Palpitations Bradycardia Screening for colon cancer Breast cancer screening by mammogram Mammogram done 10/2024 Crohn's disease Community acquired pneumonia Chronic kidney disease (HFpEF) heart failure with preserved ejection fraction Abnormal chest CT Schatzki's ring Sinus bradycardia Insomnia Depression Anxiety Osteoporosis Allergies History of anemia History of constipation Sphincter of Oddi dysfunction HTN (hypertension) Bilateral lower extremity edema Surgical History Lipoma of back Status post cholecystectomy H/O oral surgery History of appendectomy H/O total hysterectomy History of esophagogastroduodenoscopy (EGD) History of arthroscopy of right knee Status post knee surgery Status post right knee arthroscopy with partial medial meniscectomy date of surgery May 16, 2022 History of intestinal surgery Family History Other Cancer Heart attack Social History Smoking Status: Never smoker second hand exposure: No alcohol intake: never substance use type: denies use current occupational status: disabled Travel in the last 8 weeks?: None household members: none housing: apartment number of children: 2 current occupational exposures/hazards: No caffeine: Yes Have you lived/traveled outside [place] in past 30 days?: No Contact w/someone who lives/traveled outside US past 30 days?: No Exposure to someone with infectious disease in past 14 days?: No Do you have a fever (greater than 100.4 F or 38 C)?: No Have you tested positive for COVID-19?: No Exposed to someone with COVID-19 in past 14 days?: No Do you have a sore throat?: No Do you have a cough?: No Do you have any weakness?: No Do you have any diarrhea?: No Are you experiencing any unusual bleeding?: No Do you have any muscle aches/pain?: No Do you have any abdominal pain?: No Are you experiencing loss of taste or smell?: No Other Medical History Have you received the Flu Vaccine for this season: No Have you received the Pneumonia Vaccine: Yes ROS Obtained: Yes Systems reviewed as appropriate & no additional complaints except as documented Constitutional Constitutional: Reports as per HPI Physical Exam General General appearance: alert and anxious Head Head exam: normocephalic Eye Eye exam: Present PERRL and EOMI ENT ENT exam: Present normal oropharynx and mucous membranes moist Neck Neck exam: Present normal inspection, full ROM and trachea midline Respiratory Respiratory exam: Present normal lung sounds bilaterally Cardiovascular Cardiovascular exam: Present normal rhythm, bradycardia, normal heart sounds, +S1 and +S2 Abdominal Exam Abdominal exam: Present soft and normal bowel sounds Extremities Exam Extremities exam: Present full ROM and normal capillary refill Neurological Exam Neurological exam: Present alert and oriented X3 Skin Skin exam: Present warm, dry and other (Bruising to left eye socket) Medical Decision Making Medical Records Screening: Per USPSTF and CDC recommendations, given the prevalence of disease in our region, it is our hospital?s policy to screen for HIV and viral Hepatitis for all patients aged 18 and over and those with ongoing risk factors. [facility] Inquiry Pt receiving controlled substance: No [facility] was queried for this patient: No Vital Signs: 07/03/25 16:10 07/03/25 17:37 07/03/25 18:18 Temperature 98.2 F Temperature Source Oral Pulse Rate 65 Pulse Rate [Right Radial] 58 L Respiratory Rate 18 18 Blood Pressure 177/88 H Blood Pressure [Right Arm] 163/82 H Blood Pressure Mean [Right Arm] 109 Blood Pressure Source Automatic Cuff Blood Pressure Source [Right Arm] Automatic Cuff Blood Pressure Position Sitting Blood Pressure Position [Right Arm] Sitting 02 Sat by Pulse Oximetry 96 95 100 Oxygen Delivery Method Room Air Room Air Room Air 07/03/25 18:18 07/03/25 18:34 Temperature 98.7 F 98.5 F Temperature Source Oral Temporal Artery Scan Pulse Rate 63 68 Pulse Rate [Right Radial] Respiratory Rate 18 18 Blood Pressure 132/72 138/100 H Blood Pressure [Right Arm] Blood Pressure Mean [Right Arm] Blood Pressure Source Automatic Cuff Manual Cuff/ Doppler Blood Pressure Source [Right Arm] Blood Pressure Position Sitting Sitting Blood Pressure Position [Right Arm] 02 Sat by Pulse Oximetry 100 Oxygen Delivery Method Room Air Room Air Orders (Tests/Meds): ED MEDICATIONS Discontinued Medications Generic Name Dose Route Start Last Admin Trade Name Freq PRN Reason Stop Dose Admin Hydrocodone Bitart/Acetaminophen 2 tab 07/03/25 18:17 07/03/25 18:32 Hydrocodone/Apap 5/325 Mg Tablet PO 07/03/25 18:18 2 tab ONCE ONE Administration Ketorolac Tromethamine 30 mg 07/03/25 16:30 07/03/25 17:37 Ketorolac 30mg/Ml Vial IM 07/03/25 16:31 30 mg ONCE ONE Administration Ondansetron HCl 4 mg 07/03/25 18:17 07/03/25 18:32 Ondansetron 4mg Odt SL 07/03/25 18:18 4 mg ONCE ONE Administration ORDERS Category Date Time Status CT cervical spine wo con Stat Cat Scan 07/03/25 16:[address] facial bones wo con Stat Cat Scan 07/03/25 16:[address] head/brain wo con Stat Cat Scan 07/03/25 16:29 Completed Femur XR left 2 views [XR femur LT 2V] Stat Exams 07/03/25 16:29 Completed Hip XR left minimum 2 views [XR hip LT 2-3V w/pelvis] Exams 07/03/25 16:29 Completed Stat Medical Decision Narrative: patient is a 69-year-old female presenting to the emergency department for evaluation of fall prior to arrival. Patient is hemodynamically stable and nontoxic-appearing upon arrival, afebrile. Differential diagnosis includes head bleed, fractures. Workup will be conducted with specific imaging. Initial inventions include analgesics. CT scan of cervical spine, face, femur x-ray head CT and hip x-rays were all negative today. Patient still complaining of facial pain. Will give her something for pain and then she will be discharged with some Toradol and sent home. Discussed return precautions with patient and patient is safe for discharge home Critical Care Critical Care Time Critical Care Time: No
--- OUTSIDE RECORDS SUMMARY | 2025-07-03 17:30 | XMS_ITS | Clinical Summary ---
Author Organization [facility] Address [address] [place] [id number] Care Team Providers Care Public Transit Specialist Name Role Phone Unavailable Primary Care Provider [...] therelease of HIV test results or diagnoses. [id number] Social History Tobacco Use Types Packs/Day Years Used Date Smoking Tobacco: Never Assessed Comments Unknown Sex and Gender Information Value Date Recorded Sex Assigned at Not on file Legal Sex Female 10:53 PM EST Gender Identity Not on file Sexual Orientation Not on file Plan of Treatment Not on file
--- OUTSIDE RECORDS SUMMARY | 2025-07-03 17:30 | XMS_ITS | Encounter Summary ---
Author Organization [facility] Address [address] [place] [address] Care Team Providers Care Traveling Crane Operator Name Role Phone Colin Smith MD Primary Care Provider [phone] Encounter Details Date Type Department Care Team (Latest Contact Info) Description 07/02/2025 Travel Social History Tobacco Use Types Packs/Day Years Used Date Smoking Tobacco: Never Smokeless Tobacco: Never Comments Unknown Sex and Gender Information Value Date Recorded Sex Assigned at Not on file Legal Sex Female 7:52 PM EDT Gender Identity Not on file Sexual Orientation Not on file documented as of this encounter Plan of Treatment Upcoming Encounters Date Type Department Care Team (Late st Contact Info) Description 07/28/2025 9:20 AM EST Office Visit [facility] [address] [place] [address] Emely Ashford MD [address] [place] [address] documented as of this encounter Visit Diagnoses Not on filedocumented in this encounter Additional Health Concerns Assessment Noted Time A fall risk assessment has been complete d for the patient 07/02/2025 1:07 PM EST A Body Mass Index follow-up plan has been documented for the patient 07/02/2025 2:27 PM EST documented as of this encounter Care Teams Traveling Crane Operator Relationship Specialty [place] [id number] PCP - General 06/11/25 documented as of this encounter
--- OUTSIDE RECORDS SUMMARY | 2025-07-03 17:30 | XMS_ITS | Encounter Summary ---
Author Organization [facility] Address [address] [place] [address] Care Team Providers Care Supercalender Operator Helper Name Role Phone Colin Smith MD Primary Care Provider [phone] Encounter Details Date Type Department Care Team (Late st Contact Info) Description 07/01/2025 Telephone [facility] [address] [place] [address] Ana Broussard APRN, DNP [address] [facility] [address] [place] [address] Social History Tobacco Use Types Packs/Day Years Used Date Smoking Tobacco: Never Comments Unknown Sex and Gender Information Value Date Recorded Sex Assigned at Not on file Legal Sex Female 7:52 PM EDT Gender Identity Not on file Sexual Orientation Not on file documented as of this encounter Miscellaneous Notes * Telephone Encounter - KarlAlbert Evelyn - 07/01/2025 12:31 PM EST Called patient to verify their appointment on 07/02/2025. Patient verified their attendance. documented in this encounter Plan of Treatment Upcoming Encounters Date Type Department Care Team (Late st Contact Info) Description 07/28/2025 9:20 AM EST Office Visit [facility] Urology [address] [place] [address] Emely Ashford MD [address] [facility] [address] [place] [address] documented as of this encounter Visit Diagnoses Not on filedocumented in this encounter Care Teams Supercalender Operator Helper Relationship Specialty [place] [id number] PCP - General 06/11/25 documented as of this encounter
--- OUTSIDE RECORDS SUMMARY | 2025-07-03 17:30 | XMS_ITS | Clinical Summary ---
Author Organization [facility] Address [address] [place] [address] Care Team Providers Care Cold Storage Supervisor Name Role Phone Colin Smith MD Primary Care Provider + [phone] Allergies Active Allergy Reactions Criticality Noted Date Comments Cephalexin Shortness of breath, Unknown - Patient states they do not know rxn details High 02/11/2019 Codeine Unknown - Patient st ates they do not know rxn details,Other - please document in the comment field Low 02/11/2019 Hydroxyzine Hives Medium 02/07/2025 Ibuprofen Unknown - Patient st ates they do not know rxn details Low 02/11/2019 Lactose Unknown - Patient st ates they do not know rxn details Low 02/11/2019 Metoclopramide Nausea 02/07/2025 Morphine Unknown - Patient st ates they do not know rxn details Low 02/11/2019 Prednisone Other - please docum ent in the comment field,Unknown - Patient states they do not know rxn details Low 02/11/2019 Prochlorperazine Swelling,Unknown - P atient states they do not know rxn details High 02/11/2019 Promethazine Unknown - Patient st ates they do not know rxn details Low 02/11/2019 Medications traZODone (Desyrel) 100 MG tablet Take 1 tablet by mouth daily. 5 Active propranolol (Inderal) 20 MG tablet Take 1 tablet by mouth 2 times a day. 5 Active amLODIPine (Norvasc) 5 MG tablet Take 1 tablet by mouth daily. 5 Active Eliquis 5 MG tablet Take 1 tablet by mouth 2 times a day. 5 Active aspirin 81 MG EC tablet daily. 5 Active albuterol (Proventil) (2.5 MG/3ML) 0.083% nebulizer solution every 4 to 6 hours as needed. FOR SHORTNESS OF BREATH OR WHEEZING 5 Active alendronate (Fosamax) 10 MG tablet daily. 5 Active Rexulti 1 MG tablet tablet Take 1 tablet by mouth daily. 5 Active buprenorphine-nalo xone (Suboxone) 8-2 MG SL tablet DISSOLVE 2 TABLETS UNDER THE TONGUE ONCE DAILY IN THE MORNING 4 Active dicyclomine (Bentyl) 10 MG capsule TAKE ONE CAPSULE BY MOUTH THREE TIMES DAILY BEFORE MEALS 5 Active escitalopram (Lexapro) 20 MG tablet Take 1 tablet by mouth daily. 5 Active fluticasone (Flonase) 50 MCG/ACT nasal spray 2 times a day. 5 Active estradiol (Estrace) 0.1 MG/GM vaginal cream apply vaginally using FINGER TECHNIQUE DAILY FOR 14 DAYS THEN USE 3 times WEEKLY THEREAFTER 5 Active furosemide (Lasix) 40 MG tablet Take 1 tablet by mouth daily. 5 Active ibuprofen 600 MG tablet TAKE ONE TABLET BY MOUTH THREE TIMES DAILY --TAKE WITH FOOD-- Active lisinopril 20 MG tablet Take 1 tablet by mouth daily. Active metoprolol succinate XL (Toprol-XL) 25 MG 24 hr tablet Take 1 tablet by mouth daily. Active ondansetron ODT (Zofran-ODT) 4 MG disintegrating tablet DISSOLVE ONE TABLET BY MOUTH EVERY 6 HOURS NEEDED FOR NAUSEA AND VOMITING Active oxybutynin XL (Ditropan-XL) 10 MG 24 hr tablet Take 1 tablet by mouth daily. 5 Active pantoprazole (Protonix) 40 MG EC tablet Take 1 tablet by mouth 2 times a day. 5 Active Active Problems Problem Noted Date Diagnosed Date Urge incontinence 07/02/2025 Incontinence without sensory awareness Stress incontinence 07/02/2025 Postmenopausal atrophic vaginitis 07/02/2025 Urethral caruncle 07/02/2025 Vaginal pain 07/02/2025 Encounters Date Type Department Care Team Description 07/02/2025 1:20 PM EST Consult [facility] [address] [address] Ana Broussard APRN, MEGHANA Urge incontinence (Primary Dx); Incontinence without sensory awareness; Stress incontinence; Postmenopausal atrophic vaginitis; Urethral caruncle; Vaginal pain 07/02/2025 Travel 07/01/2025 Telephone [facility] [address] [id number] Ana Broussard APRN, DNP 06/30/2025 [facility]phone [facility] [address] [address] Ana Broussard APRN, MEG[place] HCN Clinical Concern/Question from Last 3 Months Family History Medical History Relation Name Comments Cancer Other Heart attack Other Relation Name Status Comments Other Social History Tobacco Use Types Packs/Day Years Used Date Smoking Tobacco: Never Smokeless Tobacco: Never Tobacco Cessation:Counseling Given: Not Answered Comments Unknown Sex and Gender Information Value Date Recorded Sex Assigned at Not on file Legal Sex Female 7:52 PM EDT Gender Identity Not on file Sexual Orientation Not on file Last Filed Vital Signs Vital Sign Reading Time Taken Comments Blood Pressure 146/86 07/02/2025 1:07 PM EST Pulse 66 07/02/2025 1:07 PM EST Temperature - - Respiratory Rate 14 07/02/2025 1:07 PM EST Oxygen Saturation - - Inhaled Oxygen Concentration - - Weight 82 kg (180 lb 12.4 oz) 07/02/2025 1:07 PM EST Height - - Body Mass Index - - Plan of Treatment Upcoming Encounters Date Type Department Care Team (Late st Contact Info) Description 07/28/2025 9:20 AM EST Office Visit [facility] [address] [phone] Emely Ashford MD [address] [place] [address] Health Maintenance Due Date Last Done Comments [facility]-Bone Density Scan 1955 [facility]-Depression Screening 1955 [facility]-Hepatitis C Screening 1955 [facility]-Medicare Annual Wellness (AWV) 1955 [facility]-Infant/Child/Adol SDOH Screenings 1955 [facility]- SDOH Screenings 10/27/1973 [facility]-Adult SDOH Screenings 10/27/1973 CT Colonography 10/27/2000 Colonoscopy 10/27/2000 FIT-DNA 10/27/2000 FIT 10/27/2000 FOBT 10/27/2000 Sigmoidoscopy 10/27/2000 [facility]-Colorectal Cancer Screening 10/27/2000 [facility]-Breast Cancer Screening 10/27/2005 [facility]-Zoster Vaccines (2 of 3) 07/10/2017 05/15/2017 [facility]-Pneumococcal Vaccine: 50 + Years (2 of 2 - PCV) 01/03/2019 01/03/2018 [id number] Vaccine (2 - season) 2025 11/18/2020 [facility]-Influenza [...] on patient's age to complete this topic Procedures Procedure Name Priority Date/Time Associated Diagnosis Comments POC US BLADDER SCAN FOR VOLUME Routine 07/02/2025 1:08 PM EST Urge incontinence POCT URINALYSIS DIPSTICK Routine 07/02/2025 12:57 PM EST from Last 3 Months Results * POC US Bladder Volume (07/02/2025 1:08 PM EST) Urine, Volume 0 mL IMAGING Anatomical Region Laterality Modality Other Ana Broussard APRN, DNP IMG POINT OF CARE ULTR ASOUND Final Result * POCT URINALYSIS DIPSTICK (07/02/2025 12:57 PM EST) POCT Urine Color Yellow 07/02/2025 12:59 PM EST [facility] POCT Urine Clarity Clear 07/02/2025 12:59 PM EST [facility] POCT Urine Glucose Negative Negative mg/dL 07/02/2025 12:59 PM EST [facility] POCT Urine Bilirubin Negative Negative mg/dL 07/02/2025 12:59 PM [facility] POCT Urine Ketones Negative Negative mg/dL 07/02/2025 12:59 PM EST [facility] POCT Urine Specific [place] 1.025 1.005 - 1.030 07/02/2025 12:59 PM EST [facility] POCT Urine Blood Negative Negative 07/02/2025 12:59 PM EST [facility] POCT pH, Urine 7.0 5.0 - 8.0 07/02/2025 12:59 PM EST [facility] POCT Protein, Urine Negative Negative mg/dL 07/02/2025 12:59 PM EST [facility] POCT Urobilinogen, Urine 0.2 0.2, 1.0 EU/dL 07/02/2025 12:59 PM EST [facility] POCT Nitrite, Urine Negative Negative 07/02/2025 12:59 PM EST [facility] POCT Urine Leukocyte Esterase Negative Negative 07/02/2025 12:59 PM EST [facility] Urine 07/02/2025 12:5 7 PM EST 07/02/2025 12:59 PM EST Ana Broussard APRN, DNP LAB POINT OF C ARE TEST DOCKED DEVICE UNSOLICITED RESULTS Final Result [facility] [address] [place], [place] from Last [address] [place] [address] [employer] [place] [phone] Care Teams Cold Storage Supervisor Relationship Specialty [place] [id number] PCP - General 06/11/25
--- OUTSIDE RECORDS SUMMARY | 2025-07-03 17:30 | XMS_ITS | Encounter Summary ---
Author Organization [facility] Address [address] [place] [address] Care Team Providers Care Deckhand Fishing Vessel Name Role Phone Colin Smith MD Primary Care Provider [phone] Reason for Visit * Reason Onset Date Comments HCN Clinical Concern/Question 06/30/2025 Encounter Details Date Type Department Care Team (Late st Contact Info) Description 06/30/2025 Telephone [facility] [address] [place] [address] Ana Broussard, ROXIE, DNP [address] [place] [address] HCN Clinical Concern/Question Social History Tobacco Use Types Packs/Day Years Used Date Smoking Tobacco: Never Comments Unknown Sex and Gender Information Value Date Recorded Sex Assigned at Not on file Legal Sex Female 7:52 PM EDT Gender Identity Not on file Sexual Orientation Not on file documented as of this encounter Miscellaneous Notes * Telephone Encounter - Lidia Farrell LPN - 06/30/2025 10:58 AM EST Spoke with patient, advised to bring all information and images to appointment. Patient verbalized understanding. * Telephone Encounter - Day Slade - 06/30/2025 10:50 AM EST Clinical Concern/Question Reason for Call: Patient is calling she has an appt on Monday. She wanted to know if she needed to bring her xrays with her she had done. Please call patient back with info. Thank you Best contact number: [phone] (mobile) Optimal time of day to reach caller: ANYTIME Additional comments/information from caller: None Note: Please do not reply to this message. Follow-up communication and further actions as a result of this message need to be communicated with the patient directly, if the patient is not active onMyChart. If the patient is active on MyChart, they will receive notification of the communication/outcome via [employer]. documented in this encounter Plan of Treatment Upcoming Encounters Date Type Department Care Team (Late st Contact Info) Description 07/28/2025 9:20 AM EST Office Visit [facility] [address] [place] [address] Emely Ashford MD [address] [place] [address] documented as of this encounter Visit Diagnoses Not on filedocumented in this encounter Care Teams Deckhand Fishing Vessel Relationship Specialty [place] [id number] PCP - General 06/11/25 documented as of this encounter
[2025-07-03 17:37] VITALS: BP 177/88; PULSE 65; RESP 18; O2SAT 95
[2025-07-03] MEDS: KETOROLAC 30MG/ML VIAL 30 MG IM (17:37)
[2025-07-03 18:18] VITALS: BP 132/72; PULSE 63; RESP 18; TEMP 37.1; O2SAT 100
[2025-07-03] MEDS: HYDROCODONE/APAP 5/325 MG TABLET 2 TAB PO (18:32)
[2025-07-03] MEDS: ONDANSETRON 4MG ODT 4 MG SL (18:32)
[2025-07-03 18:34] VITALS: BP 138/100; PULSE 68; RESP 18; TEMP 36.9; O2SAT 100
== END 2025-07-03 18:35 | disposition home or self-care (01) ==
PROVIDERS: Emergency Provider Emergency Medicine; PCP Family Medicine
DX: S00.83XA Contusion of other part of head, initial encounter (principal); R51.9 Headache, unspecified; M54.2 Cervicalgia; W18.30XA Fall on same level, unspecified, initial encounter
CPT/HCPCS: 70450; 70486; 72125; 73502; 73552; 96372; 99285; J1885; Q0162

== ENCOUNTER 2025-07-30 11:40 | Emergency (ER) | payer MEDICARE, OTHER, SELFPAY ==
--- OUTSIDE RECORDS SUMMARY | 2025-07-02 13:20 | XMS_ITS | Encounter Summary ---
Author Organization Healthcare Address [address] [place] [address] Care Team Providers Care Insurance Solicitor Name Role Phone Colin Smith MD Primary Care Provider [phone] Reason for Referral * Other Medical (Routine) - Authorized Specialty Diagnoses / Procedures Referred By Contac t Referred To Contact Urology Diagnoses Urge incontinence Incontinence without sensory awareness Procedures UDS Ana Broussard APRN, DNP [address] [address] Phone: tel: fax: Referral ID Status Reason Start Date Expiration Date V isits Requested Visits Authorized [id number] Authorized 07/02/2025 01/01/2027 1 1 Reason for Visit * Reason Comments Advice Only Encounter Details Date Type Department Care Team (Late st Contact Info) Description 07/02/2025 1:20 PM EST Consult [place] [facility] [address] [place] [address] Ana Broussard APRN, DNP [address] [address] Urge incontinence (Primary Dx); Incontinence [...] - 07/02/2025 1:20 PM EST [facility] Note Consulting provider: No ref. provider found CC: Advice Only HPI: History of Present Illness Angelica Gonzalez is a 69-year-old female who presents today for evaluation of urge incontinence.She has previously been seen by Dr. Leon at [facility] for urge incontinence and was last seen [...] (!) 146/86 Pulse: 66 Resp: 14 A front end software engineer was offered and was accepted and present [...] Ketones Negative Negative mg/dL POCT Urine Specific [place] 1.025 1.005 - 1.030 POCT Urine Blood [...] Care Team (Late st Contact Info) Description 09/08/2025 2:20 PM EST Office Visit [place] [facility] [address] [place] [address] Emely Ashford MD [address] [place] [address] Scheduled Orders Name Type Priority [...] Urine Color Yellow 07/02/2025 12:59 PM EST [facility] POCT Urine Clarity Clear 07/02/2025 12:59 PM EST [facility] POCT Urine Glucose Negative Negative mg/dL 07/02/2025 12:59 PM EST [facility] POCT Urine Bilirubin Negative Negative mg/dL 07/02/2025 12:59 PM EST [facility] POCT Urine Ketones Negative Negative mg/dL 07/02/2025 12:59 PM EST [facility] POCT Urine Specific [place] 1.025 1.005 - 1.030 07/02/2025 12:59 PM EST [facility] POCT Urine Blood Negative Negative 07/02/2025 12:59 PM EST [facility] POCT pH, Urine 7.0 5.0 - 8.0 07/02/2025 12:59 PM EST [facility] POCT Protein, Urine Negative Negative mg/dL 07/02/2025 12:59 PM EST [facility] POCT Urobilinogen, Urine 0.2 0.2, 1.0 EU/dL 07/02/2025 12:59 PM EST [facility] POCT Nitrite, Urine Negative Negative 07/02/2025 12:59 PM EST [facility] POCT Urine Leukocyte Esterase Negative Negative 07/02/2025 12:59 PM EST [facility] Urine 07/02/2025 12:5 7 PM EST 07/02/2025 12:59 PM EST Ana Broussard APRN, DNP LAB POINT OF C ARE TEST DOCKED DEVICE UNSOLICITED RESULTS Final Result [facility] [address], [place] documented in this encounter Visit Diagnoses [...] documented as of this encounter Care Teams Insurance Solicitor Relationship Specialty Start Date End Date Colin Smith MD [id number] PCP - General 06/11/25 documented as of this encounter
[2025-07-30 11:56] VITALS: BP 163/81; PULSE 57; RESP 15; TEMP 37.2; O2SAT 99; BMI 29.2
--- NOTE | 2025-07-30 12:12 | ED_ITS ---
Discharge Plan Disposition Patient Disposition: Home, Self-Care Prescriptions Prescriptions: No Action Rexulti 1 mg tablet 1 mg PO DAILY Qty: 30 2RF escitalopram oxalate [Lexapro] 20 mg tablet 20 mg PO DAILY Qty: 30 2RF trazodone 100 mg tablet 100 mg PO DAILY Qty: 30 2RF lisinopril 20 mg tablet 20 mg PO BID Qty: 60 5RF nystatin 100,000 unit/mL suspension 5 ml PO QID 7 Days Qty: 140 0RF Rx Instructions: swish and swallow aspirin [Adult Aspirin Regimen] 81 mg tablet,delayed release (DR/EC) 81 mg PO DAILY albuterol sulfate 90 mcg/actuation HFA aerosol inhaler 2 puff inhalation Q4-6H PRN (Reason: shortness of breath or wheezing) Qty: 18 2RF fluticasone propionate [Allergy Relief (fluticasone)] 50 mcg/actuation spray,suspension 1 spray intranasal BID Qty: 16 2RF Rx Instructions: administer into each nostril 2x/day furosemide 40 mg tablet 40 mg PO DAILY 30 Days Qty: 30 2RF Eliquis 5 mg tablet 5 mg PO BID Qty: 60 2RF Premarin 1.25 mg tablet 1.25 mg PO TID ondansetron 4 mg tablet,disintegrating 4 mg PO Q6H PRN (Reason: nausea and vomiting) Qty: 20 0RF estradiol [Estrace] 0.01 % (0.1 mg/gram) cream 1 appful vaginal DAILY Qty: 42.5 2RF Rx Instructions: Use finger technique daily x 14 days and 3 x weekly thereafter oxybutynin chloride 10 mg tablet extended release 24hr 10 mg PO DAILY 90 Days Qty: 90 1RF amoxicillin 875 mg tablet 875 mg PO BID Qty: 20 0RF guaifenesin 600 mg tablet extended release 12hr 600 mg PO Q12H PRN (Reason: congestion) Qty: 30 0RF promethazine-DM 6.25-15 mg/5 mL syrup 5 ml PO Q4-6H PRN (Reason: cough) Qty: 118 0RF alendronate 10 mg tablet 10 mg PO DAILY Qty: 30 2RF amlodipine 5 mg tablet 5 mg PO DAILY Qty: 30 2RF diazepam [Valium] 5 mg tablet 5 mg PO TID PRN (Reason: anxiety) Qty: 90 0RF ibuprofen 600 mg tablet 600 mg PO TID PRN (Reason: pain) Qty: 90 0RF Rx Instructions: Try to avoid taking unless absolutely necessary polyethylene glycol 3350 [Miralax] 17 gram/dose powder 17 g PO DAILY Qty: 119 0RF Referrals Follow up/Referrals: Colin Smith MD [Primary Care Provider, Family Practice] - See instructions Activity Restrictions/Add. Instructions Additional Instructions/Restrictions: Encourage you to follow-up with [facility] urology team for your prolapsed urethra, which is likely the source of your pain. You do not have evidence of urinary tract infection today. Continue your medications at home as prescribed. If you develop any new or worsening symptoms, or if you become concerned for your health for any reason, return to the emergency department for evaluation. Clinical Impressions Clinical Impression: Prolapse of urethra, Abdominal pain, lower Print Language Print Language: Gambian Discharge ED Provider: Dallas Valles General Adult HPI General Chief complaint: PAIN Stated complaint: groin pain, nausea Time Seen by Provider: 07/30/25 11:59 Mode of Arrival: Ambulatory Source of Information: Patient Description of Symptoms (Recalled from ER Triage Doc. by RN): patient states she has a prolapse urethra and lastnight it started causing pain again. she also reports she thinks she has a cyst in her groin area. History of Present Illness HPI narrative: Angelica Gonzalez is a 69y female with a history of hypertension, chronic abdominal pain, Crohn's disease, urethral prolapse who presents to the emergency dep artment for complaints of lower abdominal pressure that started last night. Patient states that she had followed up with urology since her last visit and saw a nurse practitioner and was post to come back and see a physician and they were supposed to do something to help but she could not get a ride to this appointment. She states that starting last night, she developed pressure in her lower abdomen due to taking ibuprofen without relief. She denies any dysuria or hematuria. She states that she also has a cyst on her left vagina area that has been followed by gynecology here and was told that there was nothing to do about it. She states that this feels like her typical pain but more severe. She states that ibuprofen takes the edge off. Related Data Home Medications ?Medication ?Instructions ?Recorded ?Confirmed aspirin 81 mg tablet,delayed 81 mg PO DAILY 09/27/24 1 09/21/24 release (Adult Aspirin Regimen) conjugated estrogens 1.25 mg 1.25 mg PO TID 05/12/25 1 09/21/24 tablet (Premarin) Previous Rx's ?Medication ?Instructions ?Recorded albuterol sulfate 90 mcg/actuation 2 puff inhalation Q 4-6H PRN 12/03/24 aerosol inhaler shortness of breath or wheez ing #18 grams fluticasone propionate 50 1 spray intranasal BID #16 g anatoliy 01/10/25 mcg/actuation nasal spray,suspension (Allergy Relief (fluticasone)) alendronate 10 mg tablet 10 mg PO DAILY #30 tabs 02/11 09/07 furosemide 40 mg tablet 40 mg PO DAILY 30 days #30 t abs 03/03/25 ondansetron 4 mg disintegrating 4 mg PO Q6H PRN nausea and 03/24/25 tablet vomiting #20 tabs apixaban 5 mg tablet (Eliquis) 5 mg PO BID #60 tabs lisinopril 20 mg tablet 20 mg PO BID #60 tabs nystatin 100,000 unit/mL oral 5 ml PO QID 7 days #140 mL 05/30/25 suspension polyethylene glycol 3350 17 17 g PO DAILY #119 grams 1 gram/dose oral powder (Miralax) estradiol 0.01% (0.1 mg/gram) 1 appful vaginal DAILY # 42.5 grams 06/16/25 vaginal cream (Estrace) oxybutynin chloride 10 mg 10 mg PO DAILY 90 days #90 t abs 06/16/25 tablet,extended release 24 hr amlodipine 5 mg tablet 5 mg PO DAILY #30 tabs 06/18 amoxicillin 875 mg tablet 875 mg PO BID #20 tabs 07/12 guaifenesin 600 mg tablet, 600 mg PO Q12H PRN congesti on #30 07/12/25 extended release 12 hr tabs promethazine-DM 6.25 mg-15 mg/5 mL 5 ml PO Q4-6H PRN c ough #118 mL 07/12/25 oral syrup diazepam 5 mg tablet (Valium) 5 mg PO TID PRN anxiety #90 tabs 07/18/25 brexpiprazole 1 mg tablet (Rexulti) 1 mg PO DAILY #30 tabs 07/21/25 escitalopram oxalate 20 mg tablet 20 mg PO DAILY #30 t abs 07/21/25 (Lexapro) trazodone 100 mg tablet 100 mg PO DAILY #30 tabs 04/07 ibuprofen 600 mg tablet 600 mg PO TID PRN pain #90 t abs 07/26/25 Allergies Allergy/AdvReac Type Severity Reaction Status Date / Time cephalexin (From Keflex) Allergy Severe Difficulty Verified 07/21/25 12:57 Breathing prochlorperazine Allergy Severe Swelling Verified 07/21/25 12:57 (PROCHLORPERAZINE) of Lip/Tongue/Throat codeine (CODEINE) Allergy Unknown VOMITING / Verified 07/21/25 12:57 NAUSEA prednisone (PREDNISONE) Allergy Unknown BP ISSUES Verified 07/21/25 12:57 promethazine (From PHENERGAN) Allergy Unknown Unknown Verified 07/21/25 12:57 allergy reaction metoclopramide (From Reglan) Allergy Nausea Verified 07/21/25 12:57 hydroxyzine (From Vistaril) AdvReac Hives Verified 07/21/25 12:57 [facility] PFS Disclaimer: The information contained in this section may have been updated after the patient was seen, as this information can be updated by other users. Medical History Upper respiratory tract infection New onset a-fib Dyspepsia Dysphagia Common bile duct dilation Abnormal findings on imaging of biliary tract Recurrent acute otitis media of right ear Nausea & vomiting Continue the promethazine see above. Chest pain Near syncope Chronic abdominal pain Anxiety related tremor High globulin level Shakiness SOB (shortness of breath) Palpitations Bradycardia Screening for colon cancer Breast cancer screening by mammogram Mammogram done 10/2024 Crohn's disease Community acquired pneumonia Chronic kidney disease (HFpEF) heart failure with preserved ejection fraction Abnormal chest CT Schatzki's ring Sinus bradycardia Insomnia Depression Anxiety Osteoporosis Allergies History of anemia History of constipation Sphincter of Oddi dysfunction HTN (hypertension) Bilateral lower extremity edema Surgical History Lipoma of back Status post cholecystectomy H/O oral surgery History of appendectomy H/O total hysterectomy History of esophagogastroduodenoscopy (EGD) History of arthroscopy of right knee Status post knee surgery Status post right knee arthroscopy with partial medial meniscectomy date of surgery May 16, 2022 History of intestinal surgery Family History Other Cancer Heart attack Social History Smoking Status: Never smoker second hand exposure: No alcohol intake: never substance use type: denies use current occupational status: disabled Travel in the last 8 weeks?: None household members: none housing: apartment number of children: 2 current occupational exposures/hazards: No caffeine: Yes Have you lived/traveled outside US in past 30 days?: No Contact w/someone who lives/traveled outside US past 30 days?: No Exposure to someone with infectious disease in past 14 days?: No Do you have a fever (greater than 100.4 F or 38 C)?: No Have you tested positive for COVID-19?: No Exposed to someone with COVID-19 in past 14 days?: No Do you have a sore throat?: No Do you have a cough?: No Do you have any weakness?: No Do you have any diarrhea?: No Are you experiencing any unusual bleeding?: No Do you have any muscle aches/pain?: No Do you have any abdominal pain?: No Are you experiencing loss of taste or smell?: No Other Medical History Have you received the Flu Vaccine for this season: No Have you received the Pneumonia Vaccine: Yes ROS Obtained: Yes Systems reviewed as appropriate & no additional complaints except as documented Physical Exam General General appearance: alert and in no apparent distress Head Head exam: atraumatic Eye Eye exam: Present normal appearance ENT ENT exam: Present normal external ear exam Neck Neck exam: Present full ROM Chest Chest inspection: Present symmetric chest wall rise Respiratory Respiratory exam: Present normal lung sounds bilaterally; Absent respiratory distress Cardiovascular Cardiovascular exam: Present regular rate and normal rhythm Abdominal Exam Abdominal exam: Present soft; Absent distention, tenderness, guarding or rigidity External exam: Present normal external exam and other (Small cystic structure to the left labial area) Extremities Exam Extremities exam: Present normal inspection Back Exam Back exam: Present normal inspection Neurological Exam Neurological exam: Present alert and oriented X3 Psychiatric Psychiatric exam: Present normal affect Skin Skin exam: Present warm and dry Medical Decision Making Medical Records Screening: Per USPSTF and CDC recommendations, given the prevalence of disease in our region, it is our hospital?s policy to screen for HIV and viral Hepatitis for all patients aged 18 and over and those with ongoing risk factors. Grant Inquiry Pt receiving controlled substance: No Vital Signs: 07/30/25 11:56 Temperature 98.9 F Temperature Source Oral Pulse Rate [Right Radial] 57 L Respiratory Rate 15 Blood Pressure [Right Arm] 163/81 H Blood Pressure Mean [Right Arm] 108 Blood Pressure Source [Right Arm] Automatic Cuff Blood Pressure Position [Right Arm] Supine 02 Sat by Pulse Oximetry 99 Oxygen Delivery Method Room Air Lab Data Lab Results 07/30/25 12:31: Urine Color Yellow, Urine Appearance Clear, Urine pH 7.0, Ur Specific [place] 1.020, Urine Protein Negative, Urine Glucose (UA) Negative, Urine Ketones Negative, Urine Blood Negative, Urine Nitrate Negative, Urine Bilirubin Negative, Urine Urobilinogen 0.2, Ur Leukocyte Esterase Negative Orders (Tests/Meds): ED MEDICATIONS Discontinued Medications Generic Name Dose Route Start Last Admin Trade Name Dylon PRN Reason Stop Dose Admin Acetaminophen 1,000 mg 07/30/25 12:12 07/30/25 12:21 Acetaminophen 500mg Tab PO 07/30/25 12:13 1,000 mg ONCE ONE Administration Ketorolac Tromethamine 15 mg 07/30/25 12:12 07/30/25 12:21 Ketorolac 15mg/Ml Vial IM 07/30/25 12:13 15 mg ONCE ONE Administration Ondansetron HCl 4 mg 07/30/25 13:10 07/30/25 13:22 Ondansetron 4mg Odt SL 07/30/25 13:11 4 mg ONCE ONE Administration ORDERS Category Date Time Status UA [Urinalysis and Microscopic] Stat Lab 07/30/25 12:31 Results Medical Decision Narrative: Angelica Gonzalez is a 69y female with a history of hypertension, chronic abdominal pain, Crohn's disease, urethral prolapse who presents to the emergency department for complaints of lower abdominal pressure that started last night. Patient states that she had followed up with urology since her last visit and saw a nurse practitioner and was post to come back and see a physician and they were supposed to do something to help but she could not get a ride to this appointment. She states that starting last night, she developed pressure in her lower abdomen due to taking ibuprofen without relief. She denies any dysuria or hematuria. She states that she also has a cyst on her left vagina area that has been followed by gynecology here and was told that there was nothing to do about it. She states that this feels like her typical pain but more severe. She states that ibuprofen takes the edge off. On arrival, patient is hemodynamically stable, in no acute distress, breathing comfortably on room air. Physical exam, as stated above, revealed overall well-appearing female in no respiratory distress. Abdomen is soft, nontender nondistended. exam with clinical material handler present showed a mild urethral prolapse. She has a small cystic structure on the left labia majora without erythema or tenderness. Differential diagnosis includes, but is not limited to: Urethral prolapse, urinary tract infection, chronic abdominal pain. Chart review shows that patient has had multiple presentations for similar complaints in the past. CT scan of the abdomen pelvis in May showed no acute findings. Given her reassuring abdominal exam today, I have low concern for any intra-abdominal pathology. I do feel that her symptomatology is likely related to her urethral prolapse. Will obtain urinalysis to rule out urinary tract infection. Will administer 15 mg of IM Toradol and 1000 mg of oral Tylenol. Patient received 4 mg of ODT Zofran as well. After medications, patient reported improvement in her pain. Her urinalysis shows no evidence of infection. I do feel that she is appropriate for discharge at this time. I highly encouraged her to follow-up with the [facility] urology team for definitive management of her acute urethral prolapse. Return precautions were given. All questions were answered. She was then discharged from the emergency department in stable condition. Critical Care Critical Care Time Critical Care Time: No
[2025-07-30] MEDS: KETOROLAC 15MG/ML VIAL 15 MG IM (12:21)
[2025-07-30] MEDS: ACETAMINOPHEN 500MG TAB 1000 MG PO (12:21)
[2025-07-30 12:36] LABS: Microscopic, Urine URINE MICROSCOPIC (MICROSCOPIC)
[2025-07-30 13:12] LABS: Bilirubin,Urine Negative (Negative); Color,Urine YELLOW (Yellow); Glucose,Urine (UA) Negative (Negative); Ketones,Urine Negative (Negative); Leukocyte Esterase,Urine Negative (Negative); PH,Urine 7.0 (5.0-8.5); Protein,Urine Negative (Negative); Specific Gravity, Urine 1.020 (1.005-1.030); Urobilinogen,Urine 0.2 EU/dl (0.2)
--- OUTSIDE RECORDS SUMMARY | 2025-07-30 13:16 | XMS_ITS | Clinical Summary ---
Author Organization [facility] Address [address] [place] [address] Care Team Providers Care Swing Type Lathe Operator Name Role Phone Colin Smith MD Primary Care Provider [phone] Allergies Active Allergy Reactions Criticality Noted Date [...] Encounters Date Type Department Care Team Description 07/24/2025 Telephone [facility] [address] [place] [phone] Emely Ashford MD HCN Clinical Concern/Question; HCN Status Update Call #1 07/02/2025 1:20 PM EST Consult [facility] [address] [place] [phone] Ana Broussard APRN, MEGHANA Urge incontinence (Primary Dx); Incontinence without sensory awareness; Stress incontinence; Postmenopausal atrophic vaginitis; Urethral caruncle; Vaginal pain 07/02/2025 Travel 07/01/[address] [address] Ana Broussard APRN, DNP 06/30/[address] [address] Ana Broussard APRN, MEGHANA HCN [...] Description 09/08/2025 2:20 PM EST Office Visit [facility] [place] [address] Emely Ashford MD [address] [place] [address] Health Maintenance Due Date Last [...] (2 of 2 - PCV) 01/03/2019 01/03/2018 [id number] Vaccine (2 - 2024- season) 2025 11/18/2020 [facility]-Influenza Vaccine (#1) 04/14/202506/01, 05/15/2017 [facility]-RSV Vaccine: 60+ Years o r (1 - 1-dose 75+ series) 10/27/2030 [facility]-DTaP,Tdap,and Td Vaccine s (2 - Td or Tdap) 05/15/2033 05/15/2023, 10/19/1996 HPV Vaccines (No Doses Required) Completed [facility]-HIB Vaccines Aged Out No longer e [...] mL IMAGING Anatomical Region Laterality Modality Other us Ana Broussard RUBBER GRINDER, DNP IMG POINT OF CARE ULTR ASOUND [...] PM EST [facility] POCT Urine Ketones Negative Negative mg/dL 07/02/2025 12:59 PM EST [facility] PO[facility] Urine Specific [place] 1.025 1.005 - 1.030 07/02/2025 12:59 PM EST [facility] PO[facility] Urine Blood Negative Negative 07/02/2025 12:59 PM EST [facility] PO[facility] pH, Urine 7.0 5.0 - 8.0 07/02/2025 12:59 PM EST [facility] PO[facility] Protein, Urine Negative Negative mg/dL 07/02/2025 12:59 PM EST [facility] POCT Urobilinogen, Urine 0.2 0.2, 1.0 EU/dL 07/02/2025 12:59 PM EST [facility] PO[facility] Nitrite, Urine Negative Negative 07/02/2025 12:59 PM EST [facility] PO[facility] Urine Leukocyte Esterase Negative Negative 07/02/2025 12:59 PM EST [facility] Urine 07/02/2025 12:5 7 PM EST 07/02/2025 12:59 PM EST Ana Lowe Broussard ROXIE, MEGHANA LAB POINT OF C ARE TEST DOCKED DEVICE UNSOLICITED RESULTS Final Result [facility] [address] [place], [place] from Last 3 Months Insurance [employer] [place] [address] Care Teams Swing Type Lathe Operator Relationship Specialty Start Date End Date Colin Smith MD [id number] PCP - General 06/11/25
--- OUTSIDE RECORDS SUMMARY | 2025-07-30 13:16 | XMS_ITS | Clinical Summary ---
Author Organization Address [address] [place] [id number] Care Team Providers Care Email Designer Name Role Phone Unavailable Primary Care Provider [...] therelease of HIV test results or diagnoses. [id number] Social History Tobacco Use Types Packs/Day Years Used Date Smoking Tobacco: Never Assessed Comments Unknown Sex and Gender Information Value Date Recorded Sex Assigned at Not on file Legal Sex Female 10:53 PM EST Gender Identity Not on file Sexual Orientation Not on file Plan of Treatment Not on file
--- OUTSIDE RECORDS SUMMARY | 2025-07-30 13:16 | XMS_ITS | Encounter Summary ---
Author Organization [facility] Address [address] [place] [address] Care Team Providers Care Fire Support Man Name Role Phone Colin Smith MD Primary Care Provider [phone] Encounter Details Date Type Department Care Team (Late st Contact Info) Description 07/01/[address] [facility]rology [address] [place] [address] Ana Broussard APRN, DNP [address] [facility] [address] [place] [address] Social History Tobacco Use Types Packs/Day Years Used Date Smoking Tobacco: Never Comments Unknown Sex and Gender Information Value Date Recorded Sex Assigned at Not on file Legal Sex Female 7:52 PM EDT Gender Identity Not on file Sexual Orientation Not on file documented as of this encounter Miscellaneous Notes * Telephone Encounter - Albert Barajas Evelyn - 07/01/2025 12:31 PM EST Called patient to verify their appointment on 07/02/2025. Patient verified their attendance. documented in this encounter Plan of Treatment Upcoming Encounters Date Type Department Care Team (Late st Contact Info) Description 09/08/2025 2:20 PM EST Office Visit [facility]rology [address] [place] [address] Emely Ashford MD [address] [facility] [address] [place] [address] documented as of this encounter Visit Diagnoses Not on filedocumented in this encounter Care Teams Fire Support Man Relationship Specialty [place] [id number] PCP - General 06/11/25 documented as of this encounter
--- OUTSIDE RECORDS SUMMARY | 2025-07-30 13:16 | XMS_ITS | Encounter Summary ---
Author Organization [facility] Address [address] [place] [address] Care Team Providers Care Commercial Singer Name Role Phone Colin Smith MD Primary Care Provider [phone] Encounter Details Date Type Department Care Team [...] Description 09/08/2025 2:20 PM EST Office Visit [facility] [address] [place] [address] Emely Ashford MD [address] [place] [address] documented as of this encounter Visit Diagnoses Not on filedocumented in this encounter Additional Health Concerns Assessment Noted Time A fall risk assessment has been complete d for the patient 07/02/2025 1:07 PM EST A Body Mass Index follow-up plan has been documented for the patient 07/02/2025 2:27 PM EST documented as of this encounter Care Teams Commercial Singer Relationship Specialty [place] [id number] PCP - General 06/11/25 documented as of this encounter
--- OUTSIDE RECORDS SUMMARY | 2025-07-30 13:16 | XMS_ITS | Encounter Summary ---
Author Organization [facility] Address [address] [place] [address] Care Team Providers Care Behavioral Health Consultant Name Role Phone Colin Smith MD Primary Care Provider [phone] Reason for Visit * Reason Onset Date Comments HCN Clinical Concern/Question 06/30/2025 Encounter Details Date Type Department Care Team (Late st Contact Info) Description 06/30/2025 Telephone [facility] [address] [place] [address] Ana Broussard, ROXIE, DNP [address] [place] [address] HCN Clinical Concern/Question Social History [...] with info. Thank you Best contact number: [phone] (mobile) Optimal time of day to reach caller: ANYTIME Additional comments/information from caller: None Note: Please do not reply to this message. Follow-up communication and further actions as a result of this message need to be communicated with the patient directly, if the patient is not active onMyChart. If the patient is active on MyChart, they will receive notification of the communication/outcome via [employer]. documented in this encounter Plan of Treatment Upcoming Encounters Date Type Department Care Team (Late st Contact Info) Description 09/08/2025 2:20 PM EST Office Visit [facility]rology [address] [place] [address] Emely Ashford MD [address] [place] [address] documented as of this encounter Visit Diagnoses Not on filedocumented in this encounter Care Teams Behavioral Health Consultant Relationship Specialty [place] [id number] PCP - General 06/11/25 documented as of this encounter
--- OUTSIDE RECORDS SUMMARY | 2025-07-30 13:16 | XMS_ITS | Encounter Summary ---
Author Organization Healthcare Address [address] [place] [address] Care Team Providers Care Salon Manager Name Role Phone Colin Smith MD Primary Care Provider [phone] Reason for Visit * Reason Onset Date Comments HCN Clinical Concern/Question 07/24/2025 HCN Status Update Call #1 07/24/2025 Encounter Details Date Type Department Care Team (Late st Contact Info) Description 07/24/2025 Telephone [facility] [address], [address] [place] [address] Emely Ashford MD [address] [place] [address] HCN Clinical Concern/Question; HCN Status Update Call #1 Social History Tobacco Use Types Packs/Day Years Used Date Smoking Tobacco: Never Smokeless Tobacco: Never Comments Unknown Sex and Gender Information Value Date Recorded Sex Assigned at Not on file Legal Sex Female 7:52 PM EDT Gender Identity Not on file Sexual Orientation Not on file documented as of this encounter Miscellaneous Notes * Telephone Encounter - Charissa Figueroa - 07/25/2025 9:06 AM EST Status Update Call #1 1st call regarding the status of the initial request. Best contact number: [phone] (mobile) or home at [phone] Optimal time of day to reach caller: ANYTIME Additional comments/information from caller: Pt called back stating they have questions about UDS. She is still confused about appt. Thanks! Note: Please do not reply to this message. Follow-up communication and further actions as a result of this message need to be communicated with the patient directly, if the patient is not active onMyChart. If the patient is active on MyChart, they will receive notification of the communication/outcome via MyChart. * Telephone Encounter - Reuben Zarate - 07/24/2025 12:51 PM EST Called and spoke to the patient and explained what UDS is and what they will be doing patient is asking to have it r/s to next opening with dr ashford * Telephone Encounter - Erika Vicente - 07/24/2025 12:28 PM EST Clinical Concern/Question Reason for Call: Patient is asking for details of her appt on Monday and if needs to r/s how far out is it Best contact number: [phone] (mobile) Optimal time of day to reach caller: ANYTIME Additional comments/information from caller: None Note: Please do not reply to this message. Follow-up communication and further actions as a result of this message need to be communicated with the patient directly, if the patient is not active onMyChart. If the patient is active on MyChart, they will receive notification of the communication/outcome via MyChart. documented in this encounter Plan of Treatment Upcoming Encounters Date Type Department Care Team (Late st Contact Info) Description 09/08/2025 2:20 PM EST Office Visit [facility] [address] [place] [address] Emely Ashford MD [address] [place] [address] documented as of this encounter Visit Diagnoses Not on filedocumented in this encounter Additional Health Concerns Assessment Noted Time A fall risk assessment has been complete d for the patient 07/02/2025 1:07 PM EST A Body Mass Index follow-up plan has been documented for the patient 07/02/2025 2:27 PM EST documented as of this encounter Care Teams Salon Manager Relationship Specialty [place] [id number] PCP - General 06/11/25 documented as of this encounter
[2025-07-30] MEDS: ONDANSETRON 4MG ODT 4 MG SL (13:22)
[2025-07-30 13:26] VITALS: BP 144/82; PULSE 61; RESP 18; TEMP 36.6; O2SAT 97
== END 2025-07-30 13:27 | disposition home or self-care (01) ==
PROVIDERS: Emergency Provider Student in an Organized Health Care Education/Training Program; PCP Family Medicine
DX: R10.30 Lower abdominal pain, unspecified (principal); R11.0 Nausea; N36.8 Other specified disorders of urethra
CPT/HCPCS: 81001; 96372; 99283; 99284; J1885; Q0162

== ENCOUNTER 2025-08-11 16:48 | Emergency (ER) | payer MEDICARE, OTHER, SELFPAY ==
--- OUTSIDE RECORDS SUMMARY | 2025-07-02 13:20 | XMS_ITS | Encounter Summary ---
Author Organization Healthcare Address [address] [place] [address] Care Team Providers Care Recyclable Materials Sorter Name Role Phone Colin Smith MD Primary Care Provider [phone] Reason for Referral * Other Medical (Routine) - Authorized Specialty Diagnoses / Procedures Referred By Contac t Referred To Contact Urology Diagnoses Urge incontinence Incontinence without sensory awareness Procedures UDS Ana Broussard APRN, DNP [address] [address] Phone: tel: fax: Referral ID Status Reason Start Date Expiration Date V isits Requested Visits Authorized [id number] Authorized 07/02/2025 01/01/2027 1 1 Reason for Visit * Reason Comments Advice Only Encounter Details Date Type Department Care Team (Late st Contact Info) Description 07/02/2025 1:20 PM EST Consult [facility] [address] [place] [address] Ana Broussard APRN, DNP [address] [address] Urge incontinence (Primary Dx); Incontinence without sensory awareness; Stress incontinence; Postmenopausal atrophic vaginitis; Urethral caruncle; Vaginal pain Social History Tobacco Use Types Packs/Day Years Used Date Smoking Tobacco: Never Smokeless Tobacco: Never Tobacco Cessation:Counseling Given: Not Answered Comments Unknown Sex and Gender Information Value Date Recorded Sex Assigned at Not on file Legal Sex Female 7:52 PM EDT Gender Identity Not on file Sexual Orientation Not on file documented as of this encounter Last Filed Vital Signs Vital Sign Reading Time Taken Comments Blood Pressure 146/86 07/02/2025 1:07 PM EST Pulse 66 07/02/2025 1:07 PM EST Temperature - - Respiratory Rate 14 07/02/2025 1:07 PM EST Oxygen Saturation - - Inhaled Oxygen Concentration - - Weight 82 kg (180 lb 12.4 oz) 07/02/2025 1:07 PM EST Height - - Body Mass Index - - documented in this encounter Functional Status * BP Answer Date of Assessment Author 146/86 07/02/2025 1:07 PM EST Brenna Mojica * Pulse Answer Date of Assessment Author 66 07/02/2025 1:07 PM EST Brenna Mojica * Resp Answer Date of Assessment Author 14 07/02/2025 1:07 PM EST Brenna Mojica * Weight Answer Date of Assessment Author 2892.44 07/02/2025 1:07 PM EST Brenna Mojica * Total Weight Change Percent Answer Date of Assessment Author 2222 07/02/2025 1:07 PM EST Brenna Mojica * Weight Change Since Preop Answer Date of Assessment Author 81.98 07/02/2025 1:07 PM EST Brenna Mojica * Weight Change Since Last Visit Answer Date of Assessment Author 81.98 07/02/2025 1:07 PM EST Brenna Mojica * Weight Change 24 hrs Answer Date of Assessment Author 82 07/02/2025 1:07 PM EST Brenna Mojica * Weight Change Since Preop Answer Date of Assessment Author 82 07/02/2025 1:07 PM EST Brenna Mojica * Weight Change Since Last Visit Answer Date of Assessment Author 82 07/02/2025 1:07 PM EST Brenna Mojica * Difference in Weight Since Last Visit Answer Date of Assessment Author 82 07/02/2025 1:07 PM EST Brenna Mojica * Pain Score Answer Date of Assessment Author 8 07/02/2025 1:01 PM EST Mojica, Brenna * Pain Screening/Additional Assessments Question Answer Date of Assessment Author Pain Screening/Assessments Pain Screening 07/02/2025 1 :01 PM EST Mojica, Brenna * Pain Screening Answer Date of Assessment Author 0-10 07/02/2025 1:01 PM EST Mojica, Brenna * BP Answer Date of Assessment Author 146/86 07/02/2025 1:07 PM EST Mojica, Brenna * Pulse Answer Date of Assessment Author 66 07/02/2025 1:07 PM EST Mojica, Brenna * Resp Answer Date of Assessment Author 14 07/02/2025 1:07 PM EST Mojica Brenna * Weight Answer Date of Assessment Author 2892.44 07/02/2025 1:07 PM EST Mojica, Brenna * Pain Score Answer Date of Assessment Author 8 07/02/2025 1:01 PM EST Mojica, Brenna documented as of this encounter Mental Status * BP Answer Entry Date Author 146/86 07/02/2025 1:07 PM EST Mojica, Brenna * Pulse Answer Entry Date Author 66 07/02/2025 1:07 PM EST Mojica, Brenna * Resp Answer Entry Date Author 14 07/02/2025 1:07 PM EST Mojica, Brenna * Weight Answer Entry Date Author 2892.44 07/02/2025 1:07 PM EST Mojica, Brenna * Total Weight Change Percent Answer Entry Date Author 222107/02/2025 1:07 PM EST Yunior Brenna * Weight Change Since Preop Answer Entry Date Author 81.98 07/02/2025 1:07 PM EST Moijca, Brenna * Weight Change Since Last Visit Answer Entry Date Author 81.98 07/02/2025 1:07 PM EST Mojica, Brenna * Weight Change 24 hrs Answer Entry Date Author 82 07/02/2025 1:07 PM EST Mojica, Brenna * Restart Pain Assessment Timer Answer Entry Date Author Yes 07/02/2025 1:01 PM EST Yunior Brenna * Weight Change Since Preop Answer Entry Date Author 82 07/02/2025 1:07 PM EST Yunior Brenna * Weight Change Since Last Visit Answer Entry Date Author 82 07/02/2025 1:07 PM EST Brenna Mojica * Difference in Weight Since Last Visit Answer Entry Date Author 82 07/02/2025 1:07 PM EST Brenna Mojica * Pain Score Answer Entry Date Author 8 07/02/2025 1:01 PM EST Brenna Mojica * Pain Screening Answer Entry Date Author 0-10 07/02/2025 1:01 PM EST Mojica Brenna documented in this encounter Miscellaneous Notes * Progress Notes - Ana Broussard, OIL AND GAS WELL TREATMENT OPERATOR, DNP - 07/02/2025 1:20 PM EST [facility] Note Consulting provider: No ref. provider found CC: Advice Only HPI: History of Present Illness Angelica Gonzalez is a 69-year-old female who presents today for evaluation of urge incontinence.She has previously been seen by Dr. Leon at [facility] for urge incontinence and was last seen on 05/19/2025. Outside records indicate a 2-year history of increasing urge incontinence, requiring 2 to 3 diapers per day. She had been on Ditropan 5 mg, 10 mg, and vaginal estrogen cream without improvement. Returned on 05/30/2025 for cystoscopy and renal ultrasound. The renal ultrasound showed right cortical thinning, and cystoscopy was normal without evidence of stone, tumor, hemorrhage, or infection. She did not leak with cough and was referred to to consider surgical management for CHANEL. She presents today for further evaluation Incontinence - Voiding frequency 3-4x/day, nocturia 2-3x/night, nightly enuresis. UI that occurs with urge and unaware component, denies CHANEL. Wears 3-4 depends/day - She reports a sensation of her urethra being low and palpable during urination. - She was diagnosed with prolapse by Dr. Leon, which she first noticed upon initiating care with him. - She has not undergone any surgeries for this condition. - She reports constant awareness of her urethra, which causes discomfort at night, prompting her tomove around or attempt to urinate. - She continues to use vaginal estrogen cream three times daily, applying it with her finger, and takes oxybutynin daily, which initially provided relief but is no longer effective. - She reports dry mouth as a side effect of oxybutynin. Crohn's Disease - She has a history of Crohn's disease since the 1980s, which is currently stable. - She has undergone six abdominal surgeries due to Crohn's disease, resulting in scar tissue formation and bowel blockages. - Her last surgery was in 2007. Other Medical History - She has not had any vaginal surgeries. - She underwent a total hysterectomy in 1980 due to cancer, which included removal of both ovaries. She is on Eliquis for suspected atrial fibrillation, but state concern she does not have A.fib. Reports her blood pressure fluctuates significantly, and she has severe anxiety. She is also taking aspirin and has noticed bruising all over her body. She is scheduled to cardiology 07/2025. PMHx: Problem List[1] Past Medical History[2] PSHx: Surgical History[3] FHx: Family History[4] - Sister had colon cancer Denies family history of kidney cancer or bladder cancer SHx: Social History[5] Other high risk exposures: No OBHx: OB History No obstetric history on file. G 2 P 2, vaginal deliveries Ovaries: absent bilateral Uterus: absent Vaginal estrogen: Yes, vaginal estrogen cream Systemic estrogen: No Review of Systems: See HPI Physical Exam: Vitals: 07/02/25 1307 BP: (!) 146/86 Pulse: 66 Resp: 14 A resaw machine operator was offered and was accepted and present for entire exam General: Pleasant, alert, in no acute distress, well appearing Pulmonary: no increased work of breathing or signs of respiratory distress. Cardiovascular: regular rate, palpated Abdomen: soft, flat, no TTP Musculoskeletal: normal gait and station. No spine tenderness. No CVAT. Skin: Warm, dry, and intact Neurologic: perineal sensation to light touch intact and symmetric Psychiatric: oriented to person, place, and time. Mood and affect appeared normal. : External genitalia with moveable left labial nodule 0.5 cm x 0.5 cm; patient stated this was a boil that she was provided ointment with improvement . The urethral meatus with small caruncle noted. Urethra had hypermobility with small volume CHANEL withcough. Vaginal exam revealed diffuse vaginal tenderness; no erythema or mass. Estrogenization was poor. Minimal anterior and posterior relaxation with valsalva, no apical descent Palpation of the bladder revealed no abnormalities. Bilateral anterior and posterior levators not tight or TTP. Kegel ability was weak. Results/Data: Recent Results (from the past week) POCT URINALYSIS DIPSTICK Collection Time: 07/02/25 12:57 PM Result Value Ref Range POCT Urine Color Yellow POCT Urine Clarity Clear POCT Urine Glucose Negative Negative mg/dL POCT Urine Bilirubin Negative Negative mg/dL POCT Urine Ketones Negative Negative mg/dL POCT Urine Specific [place] 1.025 1.005 - 1.030 POCT Urine Blood Negative Negative POCT pH, Urine 7.0 5.0 - 8.0 POCT Protein, Urine Negative Negative mg/dL POCT Urobilinogen, Urine 0.2 0.2, 1.0 EU/dL POCT Nitrite, Urine Negative Negative POCT Urine Leukocyte Esterase Negative Negative No results found for: URVOL Labs: No results found for: HGBA1C No results found for: GLUCOSE , CALCIUM , NA , K , CO2 , CL , BUN , CREATININE , EGFR Cultures: No results found for: URINECX Imaging: Procedure: Assessment: Angelica Gonzalez is a 69 y.o. F with Advice Only Assessment & Plan 1. Urge Incontinence: Chronic. - Oxybutynin 10 mg daily with noted side effect of dry mouth, will stop - Encouraged decrease vaginal estrace cream daily - Trial Gemtesa 75 mg 1 tablet daily; attempting to avoid other Ach d/t dry mouth with oxybutynin, avoiding Myrbetriq d/t patient reporting labile BP. - Return for further evaluation with VUDS d/t urge, unaware, and CHANEL component 2. Urethral Prolapse: Chronic. - Sensation of prolapse and discomfort, especially at night. - Continue to apply vaginal estrogen cream to the urethral meatus daily 3. Diffuse vaginal pain - Continue vaginal estrogen cream - Deferred vaginal estrogen cream recalling ineffective previously Return for VUDS for further evaluation Plan: As above Ana Broussard APRN, MEGHANA Verbal consent was obtained to use ambient listening technology to assist in the documentation of the encounter: yes [1] There is no problem list on file for this patient. [2] Past Medical History: Diagnosis Date Crohn's disease (CMS/HCC) Personal history of diseases of the blood and blood-forming organs and certain disorders involving the immune mechanism History of anemia Personal history of other diseases of the circulatory system History of congestive heart failure Personal history of other diseases of the digestive system History of gastroesophageal reflux (GERD) Personal history of other diseases of the digestive system History of hiatal hernia Personal history of other diseases of the musculoskeletal system and connective tissue History of arthritis Personal history of other endocrine, nutritional and metabolic disease History of hyperlipidemia Personal history of other endocrine, nutritional and metabolic disease History of hypothyroidism Personal history of other mental and behavioral disorders History of anxiety Personal history of other mental and behavioral disorders History of depression [3] Past Surgical History: Procedure Laterality Date APPENDECTOMY CHOLECYSTECTOMY ESOPHAGOGASTRODUODENOSCOPY HYSTERECTOMY INTESTINAL SURGERY KNEE ARTHROSCOPY KNEE SURGERY LIPOMA RESECTION OF BACK ORAL SURGERY [4] Family History Problem Relation Name Age of Onset Cancer Other Heart attack Other [5] Social History Tobacco Use Smoking status: Never Smokeless tobacco: Never documented in this encounter Plan of Treatment Upcoming Encounters Date Type Department Care Team (Late st Contact Info) Description 08/18/2025 8:00 AM EST Office Visit [facility] [address] [place] [id number] Emely Ashford MD [address] [place] [address] Scheduled Orders Name Type Priority Associated Diagnoses Orde r Schedule UDS Procedure Routine Urge incontinence Incontinence without sensory awareness Expected: 07/02/2025 (Approximate), Expires: 12/30/2026 documented as of this encounter Procedures Procedure Name Priority Date/Time Associated Diagnosis Comments POC US BLADDER SCAN FOR VOLUME Routine 07/02/2025 1:08 PM EST Urge incontinence POCT URINALYSIS DIPSTICK Routine 07/02/2025 12:57 PM EST documented in this encounter Results * POC US Bladder Volume (07/02/2025 1:08 PM EST) Urine, Volume 0 mL IMAGING Anatomical Region Laterality Modality Other Ana Broussard APRN, DNP IMG POINT OF CARE ULTR ASOUND Final Result * POCT URINALYSIS DIPSTICK (07/02/2025 12:57 PM EST) POCT Urine Color Yellow 07/02/2025 12:59 PM EST [facility] POCT Urine Clarity Clear 07/02/2025 12:59 PM EST [facility] POCT Urine Glucose Negative Negative mg/dL 07/02/2025 12:59 PM EST [facility] POCT Urine Bilirubin Negative Negative mg/dL 07/02/2025 12:59 PM EST [facility] POCT Urine Ketones Negative Negative mg/dL 07/02/2025 12:59 PM EST [facility] POCT Urine Specific [place] 1.025 1.005 - 1.030 07/02/2025 12:59 PM EST [facility] POCT Urine Blood Negative Negative 07/02/2025 12:59 PM EST [facility] POCT pH, Urine 7.0 5.0 - 8.0 07/02/2025 12:59 PM EST [facility] POCT Protein, Urine Negative Negative mg/dL 07/02/2025 12:59 PM EST [facility] POCT Urobilinogen, Urine 0.2 0.2, 1.0 EU/dL 07/02/2025 12:59 PM EST [facility] POCT Nitrite, Urine Negative Negative 07/02/2025 12:59 PM EST [facility] POCT Urine Leukocyte Esterase Negative Negative 07/02/2025 12:59 PM EST [facility] Urine 07/02/2025 12:5 7 PM EST 07/02/2025 12:59 PM EST Ana Broussard OIL AND GAS WELL TREATMENT OPERATOR, DNP LAB POINT OF C ARE TEST DOCKED DEVICE UNSOLICITED RESULTS Final Result [facility] [address], [place] documented in this encounter Visit Diagnoses Diagnosis Urge incontinence- Primary Incontinence without sensory awareness Stress incontinence Female stress incontinence Postmenopausal atrophic vaginitis Urethral caruncle Vaginal pain Unspecified symptom associated with female genital organs documented in this encounter Additional Health Concerns Assessment Noted Time A fall risk assessment has been complete d for the patient 07/02/2025 1:07 PM EST A Body Mass Index follow-up plan has been documented for the patient 07/02/2025 2:27 PM EST documented as of this encounter Care Teams Recyclable Materials Sorter Relationship Specialty [place] [id number] PCP - General 06/11/25 documented as of this encounter
[2025-08-11 16:52] VITALS: BP 175/103; PULSE 63; RESP 20; TEMP 37.2; O2SAT 97; BMI 29.8
--- OUTSIDE RECORDS SUMMARY | 2025-08-11 17:08 | XMS_ITS | Clinical Summary ---
Author Organization [facility] Address [address] [place] [id number] Care Team Providers Care Picker Tender Helper Name Role Phone Unavailable Primary Care [...] therelease of HIV test results or diagnoses. [id number] Social History Tobacco Use Types Packs/Day Years Used Date Smoking Tobacco: Never Assessed Comments Unknown Sex and Gender Information Value Date Recorded Sex Assigned at Not on file Legal Sex Female 10:53 PM EST Gender Identity Not on file Sexual Orientation Not on file Plan of Treatment Not on file
--- OUTSIDE RECORDS SUMMARY | 2025-08-11 17:08 | XMS_ITS | Encounter Summary ---
Author Organization [facility] Address [address] [place] [address] Care Team Providers Care Airline Transport Pilot Name Role Phone Colin Smith MD Primary Care Provider [phone] Encounter Details Date Type Department Care Team (Late st Contact Info) Description 07/01/2025 Telephone [facility] [address] [place] [address] Ana Broussard APRN, DNP [address] [facility] [address] [place] [address] Social History Tobacco Use Types [...] Description 08/18/2025 8:00 AM EST Office Visit [facility] [address], [address] [place] [address] Emely Ashford MD [address] [facility] [address] [place] [address] documented as of this encounter Visit Diagnoses Not on filedocumented in this encounter Care Teams Airline Transport Pilot Relationship Specialty [place] [id number] PCP - General 06/11/25 documented as of this encounter
--- OUTSIDE RECORDS SUMMARY | 2025-08-11 17:08 | XMS_ITS | Encounter Summary ---
Author Organization [facility] Address [address] [place] [address] Care Team Providers Care Tire Manager Name Role Phone Colin Smith MD Primary Care Provider [phone] Reason for Visit * Reason Onset Date Comments HCN Clinical Concern/Question 06/30/2025 Encounter Details Date Type Department Care Team (Late st Contact Info) Description 06/30/2025 Telephone [facility] [address], [address] [place] [address] Ana Broussard, ROXIE, DNP [address] [place] [address] HCN Clinical Concern/Question Social History [...] with info. Thank you Best contact number: [phone] (mobile) Optimal time of day to reach caller: ANYTIME Additional comments/information from caller: None Note: Please do not reply to this message. Follow-up communication and further actions as a result of this message need to be communicated with the patient directly, if the patient is not active onMyChart. If the patient is active on MyChart, they will receive notification of the communication/outcome via [employer]. documented in this encounter Plan of Treatment Upcoming Encounters Date Type Department Care Team (Late st Contact Info) Description 08/18/2025 8:00 AM EST Office Visit [facility] [address] [place] [address] Emely Ashford MD [address] [place] [address] documented as of this encounter Visit Diagnoses Not on filedocumented in this encounter Care Teams Tire Manager Relationship Specialty [place] [id number] PCP - General 06/11/25 documented as of this encounter
--- OUTSIDE RECORDS SUMMARY | 2025-08-11 17:08 | XMS_ITS | Encounter Summary ---
Author Organization [facility] Address [address] [place] [address] Care Team Providers Care Guidance Consultant Name Role Phone Colin Smith MD Primary Care Provider [phone] Reason for Visit * Reason Onset Date Comments HCN Clinical Concern/Question 08/11/2025 Encounter Details Date Type Department Care Team (Late st Contact Info) Description 08/11/2025 Telephone [facility] [address], [address] [place] [address] Emely Ashford MD [address] [place] [address] HCN Clinical Concern/Question Social History [...] Telephone Encounter - Lidia Farrell LPN - 08/11/2025 4:18 PM EST Spoke with patient, stated she is in a lot of urethral discomfort stated that she is using estrogenas prescribed and wanted to know if we can give her any pain medication. Advised that clinic is unable to give pain medication to keep taking estrogen as rx, can take tylenol and ibuprofen. If pain consists then present to the nearest ED. Also discussed UDS procedure. Patient verbalized understanding. * Telephone Encounter - Kavon Alfred - 08/11/2025 3:58 PM EST Clinical Concern/Question Reason for Call: She is having a UDS in 08/18/2025. She is having a lot of pain and asking for pain medicine. She has been having to go to the ED for pain shots. Best contact number: [phone] (mobile) Optimal time of day to reach [...] Description 08/18/2025 8:00 AM EST Office Visit [facility] [address] [place] [address] Emely Ashford MD [address] [place] [address] documented as of this encounter Visit Diagnoses Not on filedocumented in this encounter Additional Health Concerns Assessment Noted Time A fall risk assessment has been complete d for the patient 07/02/2025 1:07 PM EST A Body Mass Index follow-up plan has been documented for the patient 07/02/2025 2:27 PM EST documented as of this encounter Care Teams Guidance Consultant Relationship Specialty [place] [id number] PCP - General 06/11/25 documented as of this encounter
--- OUTSIDE RECORDS SUMMARY | 2025-08-11 17:08 | XMS_ITS | Encounter Summary ---
Author Organization Healthcare Address [address] [place] [address] Care Team Providers Care Duct Layer Helper Name Role Phone Colin Smith MD Primary Care Provider [phone] Encounter Details Date Type Department Care Team [...] on file documented as of this encounter Functional Status * Communicable Disease Screening Question Answer Date of Assessment Author Have you been in contact wit h someone who was sick? No / Unsure 07/02/2025 12:35 PM EST Black, Christina L Do you have any of the follo wing new or worsening symptoms? None of these 07/02/2025 12:35 PM EST Black, Tr nissa L * Travel Screening Question Answer Date of Assessment Author Have you traveled [place] or domestically in the last month? No 07/02/2025 12:35 PM EST Erwin k, Christina L documented as of this encounter Mental Status * Communicable Disease Screening Question Answer Entry Date Author Have you been in contact wit h someone who was sick? No / Unsure 07/02/2025 12:35 PM EST Black, Christina L Do you have any of the follo wing new or worsening symptoms? None of these 07/02/2025 12:35 PM EST Black, Tr nissa L * Travel Screening Question Answer Entry Date Author Have you traveled [place] or domestically in the last month? No 07/02/2025 12:35 PM EST Eriwn k, Christina L documented in this encounter Plan of Treatment Upcoming Encounters Date Type Department Care Team (Late st Contact Info) Description 08/18/2025 8:00 AM EST Office Visit [facility] [address] [place] [address] Emely Ashford MD [address] [place] [address] documented as of this encounter Visit Diagnoses Not on filedocumented in this encounter Additional Health Concerns Assessment Noted Time A fall risk assessment has been complete d for the patient 07/02/2025 1:07 PM EST A Body Mass Index follow-up plan has been documented for the patient 07/02/2025 2:27 PM EST documented as of this encounter Care Teams Duct Layer Helper Relationship Specialty [place] [id number] PCP - General 06/11/25 documented as of this encounter
--- OUTSIDE RECORDS SUMMARY | 2025-08-11 17:09 | XMS_ITS | Clinical Summary ---
Author Organization [facility] Address [address] [place] [address] Care Team Providers Care Certified Orthotist Name Role Phone Colin Smith MD Primary Care Provider [phone] Allergies Active Allergy Reactions Criticality Noted Date [...] Encounters Date Type Department Care Team Description 08/11/2025 Telephone [facility] [address], [facility] [place] [address] Emely Ashford MD HCN Clinical Concern/Question 07/24/2025 Telephone [facility] [address], [address] [place] [address] Emely Ashford MD HCN Clinical Concern/Question; HCN Status Update Call #1 07/02/2025 1:20 PM EST Consult [facility] [address], [address] [place] [address] Ana Broussard APRN, MEGHANA Urge incontinence (Primary Dx); Incontinence without sensory awareness; Stress incontinence; Postmenopausal atrophic vaginitis; Urethral caruncle; Vaginal pain 07/02/2025 Travel 07/01/2025 Telephone [facility] [address], [address] [place] [address] Ana Broussard APRN, DNP 06/30/2025 Telephone [facility] [address], [address] [place] [address] Ana Broussard APRN, [place] HCN Clinical [...] Office Visit [facility] [address], [address] [place] [address] Emely Ashford MD [address] [place] [address] Health Maintenance Due Date Last [...] (2 of 2 - PCV) 01/03/2019 01/03/2018 [id number] Vaccine (2 - season) 2025 11/18/2020 [facility]-Influenza [...] Anatomical Region Laterality Modality Other Ana Broussard MEDICAL ASSEMBLY, DNP IMG POINT OF CARE ULTR ASOUND [...] EST [facility] POCT Urine Specific [place] 1.025 1.005 - 1.030 07/02/2025 12:59 PM [...] Urine Negative Negative 07/02/2025 12:59 PM EST [facility] POCT Urine Leukocyte Esterase Negative Negative 07/02/2025 12:59 PM EST [facility] Urine 07/02/2025 12:5 7 PM EST 07/02/2025 12:59 PM EST Ana Lowe Bobo MEDICAL ASSEMBLY, DNP LAB POINT OF C ARE TEST DOCKED DEVICE UNSOLICITED RESULTS Final Result [facility] [address] [place], [place] from [place] [address] [place] [address] [employer] [place] [address] Care Teams Certified Orthotist Relationship Specialty [place] [id number] PCP - General 06/11/25
--- OUTSIDE RECORDS SUMMARY | 2025-08-11 17:09 | XMS_ITS | Encounter Summary ---
Author Organization Healthcare Address [address] [place] [address] Care Team Providers Care Terrazzo Supervisor Name Role Phone Colin Smith MD Primary Care Provider [phone] Reason for Visit * Reason Onset Date Comments HCN Clinical Concern/Question 07/24/2025 HCN Status Update Call #1 07/24/2025 Encounter Details Date Type Department Care Team (Late st Contact Info) Description 07/24/2025 Telephone [facility] [address] [place] [address] Emely Ashford MD [address] [place] [address] HCN Clinical Concern/Question; HCN Status [...] of the initial request. Best contact number: [phone] (mobile) or home at [phone] Optimal time of day to reach caller: [...] far out is it Best contact number: [phone] (mobile) Optimal time of day to reach [...] Description 08/18/2025 8:00 AM EST Office Visit [facility] [address], [address] [place] [address] Emely Ashford MD [address] [place] [address] documented as of this encounter Visit Diagnoses Not on filedocumented in this encounter Additional Health Concerns Assessment Noted Time A fall risk assessment has been complete d for the patient 07/02/2025 1:07 PM EST A Body Mass Index follow-up plan has been documented for the patient 07/02/2025 2:27 PM EST documented as of this encounter Care Teams Terrazzo Supervisor Relationship Specialty [place] [id number] PCP - General 06/11/25 documented as of this encounter
[2025-08-11 17:15] LABS: Hematocrit 32.6 % (37.0-47.0); Hemoglobin 10.7 g/dL (12.2-16.2); Immature Granulocytes % 0.3 %; Mean Corpuscular HGB Conc 32.8 g/dL (31.8-35.4); Mean Corpuscular Hemoglobin 28.7 pg (27.0-31.2); Mean Corpuscular Volume 87.4 fl (81-99); Nucleated Red Blood Cells % 0 %; Platelet Count 300 K/mm3 (142-424); Red Blood Count 3.73 M/mm3 (4.20-5.40); Red Cell Distribution Width-SD 46.7 fL; White Blood Count 7.4 K/mm3 (4.8-10.8)
[2025-08-11 17:22] LABS: Albumin Level 4.5 g/dl (3.5-5.0); Chloride 110 mmol/L (98-107); Potassium 3.6 mmoL/L (3.5-5.1); Sodium 144 mmol/L (136-145)
[2025-08-11 17:25] LABS: Alanine Aminotransferase 18 U/L (12-78); Albumin/Globulin Ratio 1.4 (1.1-1.8); Alkaline Phosphatase 64 U/L (38-126); Anion Gap 10.6 mEq/L (5-15); Aspartate Amino Transferase 27 U/L (14-36); Bilirubin,Total 0.3 mg/dl (0.2-1.3); Blood Urea Nitrogen 23 mg/dl (7-17); Calcium 10.3 mg/dl (8.4-10.2); Carbon Dioxide 27 mmol/L (22.0-30.0); Creatinine Clearance Estimated 60 mL/min (50-200); Creatinine,Serum 1.10 mg/dl (0.52-1.04); Estimated Glomerular Filt Rate 49 ml/min (>60); GFR (African American) 60 ML/MIN (>60); Globulin 3.2 g/dL (1.3-3.2); Glucose 89 mg/dl (74-100); Total Protein,Serum 7.7 g/dl (6.3-8.2)
--- NOTE | 2025-08-11 17:32 | ED_ITS ---
<Statement entered by Dallas Valles MD - 08/11/25 22:23> Dallas Valles MD: I was consulted by the LOTUS, and we discussed the complexity of the problems being addressed. I approve the treatment and management plan for this patient's care in the emergency department, thus performing a substantive portion of the medical decision making. Discharge Plan Disposition Patient Disposition: Home, Self-Care Prescriptions Prescriptions: New phenazopyridine [Pyridium] 200 mg tablet 200 mg PO Q8H PRN (Reason: pain) Qty: 6 0RF ketorolac 10 mg tablet 10 mg PO Q8H PRN (Reason: pain) 5 Days Qty: 15 0RF No Action Rexulti 1 mg tablet 1 mg PO DAILY Qty: 30 2RF escitalopram oxalate [Lexapro] 20 mg tablet 20 mg PO DAILY Qty: 30 2RF trazodone 100 mg tablet 100 mg PO DAILY Qty: 30 2RF lisinopril 20 mg tablet 20 mg PO BID Qty: 60 5RF nystatin 100,000 unit/mL suspension 5 ml PO QID 7 Days Qty: 140 0RF Rx Instructions: swish and swallow aspirin [Adult Aspirin Regimen] 81 mg tablet,delayed release (DR/EC) 81 mg PO DAILY albuterol sulfate 90 mcg/actuation HFA aerosol inhaler 2 puff inhalation Q4-6H PRN (Reason: shortness of breath or wheezing) Qty: 18 2RF fluticasone propionate [Allergy Relief (fluticasone)] 50 mcg/actuation spray,suspension 1 spray intranasal BID Qty: 16 2RF Rx Instructions: administer into each nostril 2x/day furosemide 40 mg tablet 40 mg PO DAILY 30 Days Qty: 30 2RF Eliquis 5 mg tablet 5 mg PO BID Qty: 60 2RF Premarin 1.25 mg tablet 1.25 mg PO TID ondansetron 4 mg tablet,disintegrating 4 mg PO Q6H PRN (Reason: nausea and vomiting) Qty: 20 0RF estradiol [Estrace] 0.01 % (0.1 mg/gram) cream 1 appful vaginal DAILY Qty: 42.5 2RF Rx Instructions: Use finger technique daily x 14 days and 3 x weekly thereafter oxybutynin chloride 10 mg tablet extended release 24hr 10 mg PO DAILY 90 Days Qty: 90 1RF guaifenesin 600 mg tablet extended release 12hr 600 mg PO Q12H PRN (Reason: congestion) Qty: 30 0RF promethazine-DM 6.25-15 mg/5 mL syrup 5 ml PO Q4-6H PRN (Reason: cough) Qty: 118 0RF alendronate 10 mg tablet 10 mg PO DAILY Qty: 30 2RF amlodipine 5 mg tablet 5 mg PO DAILY Qty: 30 2RF diazepam [Valium] 5 mg tablet 5 mg PO TID PRN (Reason: anxiety) Qty: 90 0RF ibuprofen 800 mg tablet 800 mg PO TID Qty: 90 2RF polyethylene glycol 3350 [Miralax] 17 gram/dose powder 17 g PO DAILY Qty: 119 0RF Referrals Follow up/Referrals: Colin Smith MD [Primary Care Provider, Family Practice] - See instructions Activity Restrictions/Add. Instructions Additional Instructions/Restrictions: Drink plenty of fluids, rest. Take Tylenol and Toradol for pain.Please call your PCP and follow-up with him for any worsening problems or concerns. Clinical Impressions Clinical Impression: Urinary frequency Instructions Patient Instructions: DI for Dysuria in Adults Print Language Print Language: Croatian Discharge ED Provider: Dallas Valles General Adult HPI General Chief complaint: PAIN Stated complaint: Prolapsed bladder with pain Time Seen by Provider: 08/11/25 17:22 Mode of Arrival: Ambulatory Source of Information: Patient Description of Symptoms (Recalled from ER Triage Doc. by RN): PT presents with c/o intense pain when urinating due to prolapsed urethra . Pt has been seen multiple times for the issue, most recent was a physician at [facility]. Pt states she is supposed to be scheduled for a procedure on her bladder next week. History of Present Illness HPI narrative: 69-year-old female presents to the ED with complaint of pain with urinating due to likely her bladder prolapse. However she calls it a prolapsed urethra . She has been seen several times for this same issue. She called Ruthann about this today. She has seen Dr. Bates for this issue she is going to have a test on her bladder on the fifth. Related Data Home Medications ?Medication ?Instructions ?Recorded ?Confirmed aspirin 81 mg tablet,delayed 81 mg PO DAILY 09/27/24 1 10/01/24 release (Adult Aspirin Regimen) conjugated estrogens 1.25 mg 1.25 mg PO TID 05/12/25 1 10/01/24 tablet (Premarin) Previous Rx's ?Medication ?Instructions ?Recorded albuterol sulfate 90 mcg/actuation 2 puff inhalation Q 4-6H PRN 12/03/24 aerosol inhaler shortness of breath or wheez ing #18 grams fluticasone propionate 50 1 spray intranasal BID #16 g anatoliy 01/10/25 mcg/actuation nasal spray,suspension (Allergy Relief (fluticasone)) alendronate 10 mg tablet 10 mg PO DAILY #30 tabs 02/11 09/07 furosemide 40 mg tablet 40 mg PO DAILY 30 days #30 t abs 03/03/25 ondansetron 4 mg disintegrating 4 mg PO Q6H PRN nausea and 03/24/25 tablet vomiting #20 tabs apixaban 5 mg tablet (Eliquis) 5 mg PO BID #60 tabs lisinopril 20 mg tablet 20 mg PO BID #60 tabs nystatin 100,000 unit/mL oral 5 ml PO QID 7 days #140 mL 05/30/25 suspension polyethylene glycol 3350 17 17 g PO DAILY #119 grams 1 gram/dose oral powder (Miralax) estradiol 0.01% (0.1 mg/gram) 1 appful vaginal DAILY # 42.5 grams 06/16/25 vaginal cream (Estrace) oxybutynin chloride 10 mg 10 mg PO DAILY 90 days #90 t abs 06/16/25 tablet,extended release 24 hr amlodipine 5 mg tablet 5 mg PO DAILY #30 tabs 06/18 guaifenesin 600 mg tablet, 600 mg PO Q12H PRN congesti on #30 07/12/25 extended release 12 hr tabs promethazine-DM 6.25 mg-15 mg/5 mL 5 ml PO Q4-6H PRN c ough #118 mL 07/12/25 oral syrup diazepam 5 mg tablet (Valium) 5 mg PO TID PRN anxiety #90 tabs 07/18/25 brexpiprazole 1 mg tablet (Rexulti) 1 mg PO DAILY #30 tabs 07/21/25 escitalopram oxalate 20 mg tablet 20 mg PO DAILY #30 t abs 07/21/25 (Lexapro) trazodone 100 mg tablet 100 mg PO DAILY #30 tabs 04/07 ibuprofen 800 mg tablet 800 mg PO TID #90 tabs 08/08 ketorolac 10 mg tablet 10 mg PO Q8H PRN pain 5 days #15 08/11/25 tabs phenazopyridine 200 mg tablet 200 mg PO Q8H PRN pain 6 doses #6 08/11/25 (Pyridium) tabs Allergies Allergy/AdvReac Type Severity Reaction Status Date / Time cephalexin (From Keflex) Allergy Severe Difficulty Verified 07/31/25 15:50 Breathing prochlorperazine Allergy Severe Swelling Verified 07/31/25 15:50 (PROCHLORPERAZINE) of Lip/Tongue/Throat codeine (CODEINE) Allergy Unknown VOMITING / Verified 07/31/25 15:50 NAUSEA prednisone (PREDNISONE) Allergy Unknown BP ISSUES Verified 07/31/25 15:50 promethazine (From PHENERGAN) Allergy Unknown Unknown Verified 07/31/25 15:50 allergy reaction metoclopramide (From Reglan) Allergy Nausea Verified 07/31/25 15:50 hydroxyzine (From Vistaril) AdvReac Hives Verified 07/31/25 15:50 PFSH PFSH Disclaimer: The information contained in this section may have been updated after the patient was seen, as this information can be updated by other users. Medical History Upper respiratory tract infection New onset a-fib Dyspepsia Dysphagia Common bile duct dilation Abnormal findings on imaging of biliary tract Recurrent acute otitis media of right ear Nausea & vomiting Continue the promethazine see above. Chest pain Near syncope Chronic abdominal pain Anxiety related tremor High globulin level Shakiness SOB (shortness of breath) Palpitations Bradycardia Screening for colon cancer Breast cancer screening by mammogram Mammogram done 10/2024 Crohn's disease Community acquired pneumonia Chronic kidney disease (HFpEF) heart failure with preserved ejection fraction Abnormal chest CT Schatzki's ring Sinus bradycardia Insomnia Depression Anxiety Osteoporosis Allergies History of anemia History of constipation Sphincter of Oddi dysfunction HTN (hypertension) Bilateral lower extremity edema Surgical History Lipoma of back Status post cholecystectomy H/O oral surgery History of appendectomy H/O total hysterectomy History of esophagogastroduodenoscopy (EGD) History of arthroscopy of right knee Status post knee surgery Status post right knee arthroscopy with partial medial meniscectomy date of surgery May 16, 2022 History of intestinal surgery Family History Other Cancer Heart attack Social History Smoking Status: Never smoker second hand exposure: No alcohol intake: never substance use type: denies use current occupational status: disabled Travel in the last 8 weeks?: None household members: none housing: apartment number of children: 2 current occupational exposures/hazards: No caffeine: Yes Have you lived/traveled outside [place] in past 30 days?: No Contact w/someone who lives/traveled outside [place] past 30 days?: No Exposure to someone with infectious disease in past 14 days?: No Do you have a fever (greater than 100.4 F or 38 C)?: No Have you tested positive for COVID-19?: No Exposed to someone with COVID-19 in past 14 days?: No Do you have a sore throat?: No Do you have a cough?: No Do you have any weakness?: No Do you have any diarrhea?: No Are you experiencing any unusual bleeding?: No Do you have any muscle aches/pain?: No Do you have any abdominal pain?: No Are you experiencing loss of taste or smell?: No Other Medical History Have you received the Flu Vaccine for this season: No Have you received the Pneumonia Vaccine: Yes ROS Obtained: Yes Systems reviewed as appropriate & no additional complaints except as documented Constitutional Constitutional: Reports as per HPI Physical Exam General General appearance: alert Head Head exam: normocephalic Eye Eye exam: Present PERRL and EOMI ENT ENT exam: Present normal oropharynx and mucous membranes moist Neck Neck exam: Present full ROM and trachea midline Respiratory Respiratory exam: Present normal lung sounds bilaterally Cardiovascular Cardiovascular exam: Present regular rate, normal rhythm, normal heart sounds, +S1 and +S2 Abdominal Exam Abdominal exam: Present soft and normal bowel sounds External exam: Present normal external exam Speculum exam: Present other (No obvious bladder prolapse) Extremities Exam Extremities exam: Present full ROM and normal capillary refill Neurological Exam Neurological exam: Present alert and oriented X3 Psychiatric Psychiatric exam: Present anxious Skin Skin exam: Present warm and dry Medical Decision Making Medical Records Screening: Per USPSTF and CDC recommendations, given the prevalence of disease in our region, it is our hospital?s policy to screen for HIV and viral Hepatitis for all patients aged 18 and over and those with ongoing risk factors. Grant Inquiry Pt receiving controlled substance: No Grant was queried for this patient: No Vital Signs: 08/11/25 16:52 08/11/25 18:02 08/11/25 18:16 Temperature 98.9 F Temperature Source Oral Pulse Rate 58 L 59 L Pulse Rate [Right] 63 Respiratory Rate 20 Blood Pressure 170/94 H 177/100 H Blood Pressure [Right Arm] 175/103 H Blood Pressure Mean Blood Pressure Mean [Right Arm] 127 Blood Pressure Source Blood Pressure Source [Right Arm] Automatic Cuff Blood Pressure Position Blood Pressure Position [Right Arm] Sitting 02 Sat by Pulse Oximetry 97 95 93 L Oxygen Delivery Method Room Air 08/11/25 18:24 08/11/25 18:30 Temperature 98.5 F Temperature Source Oral Pulse Rate 77 Pulse Rate [Right] Respiratory Rate 16 Blood Pressure 167/127 H 165/85 H Blood Pressure [Right Arm] Blood Pressure Mean 133 Blood Pressure Mean [Right Arm] Blood Pressure Source Automatic Cuff Blood Pressure Source [Right Arm] Blood Pressure Position Sitting Blood Pressure Position [Right Arm] 02 Sat by Pulse Oximetry Oxygen Delivery Method Room Air Lab Data Lab Results 08/11/25 17:04: WBC 7.4, RBC 3.73 L, Hgb 10.7 L, Hct 32.6 L, MCV 87.4, MCH 28.7, MCHC 32.8, RDW 14.7, Plt Count 300, MPV 11.2 H, Neut % (Auto) 59.9, Lymph % (Auto) 26.7, Winkler % (Auto) 6.7, Eos % (Auto) 5.9, Baso % (Auto) 0.5, Neut # (Auto) 4.5, Lymph # (Auto) 2.0, Winkler # (Auto) 0.5, Eos # (Auto) 0.4, Baso # (Auto) 0.0, Sodium 144, Potassium 3.6, Chloride 110 H, Carbon Dioxide 27, Anion Gap 10.6, BUN 23 H, Creatinine 1.10 H, Estimated Creat Clear 60, Estimated GFR 49 L, Est GFR ( Amer) 60, Glucose 89, Calcium 10.3 H, Total Bilirubin 0.3, AST 27, ALT 18, Alkaline Phosphatase 64, Total Protein 7.7, Albumin 4.5, Globulin 3.2, Albumin/Globulin Ratio 1.4 08/11/25 17:06: Urine Color Yellow, Urine Appearance Clear, Urine pH 6.0, Ur Specific [place] >= 1.030, Urine Protein Negative, Urine Glucose (UA) Negative, Urine Ketones Negative, Urine Blood Negative, Urine Nitrate Negative, Urine Bilirubin Negative, Urine Urobilinogen 0.2, Ur Leukocyte Esterase Negative, Urine RBC None, Urine WBC 3-5, Ur Squamous Epith Cells 3-5, Urine Bacteria Trace 08/11/25 17:04 08/11/25 17:04 Orders (Tests/Meds): ED MEDICATIONS Discontinued Medications Generic Name Dose Route Start Last Admin Trade Name Freq PRN Reason Stop Dose Admin Ketorolac Tromethamine 30 mg 08/11/25 18:17 08/11/25 18:21 Ketorolac 30mg/Ml Vial IM 08/11/25 18:18 30 mg ONCE ONE Administration Phenazopyridine HCl 200 mg 08/11/25 17:48 08/11/25 18:07 Phenazopyridine 200mg Tablet PO 08/11/25 17:49 200 mg ONCE ONE Administration ORDERS Category Date Time Status Complete Blood Count Auto Diff Stat Lab 08/11/25 17:04 Completed Comprehensive Metabolic Panel Stat Lab 08/11/25 17:04 Completed Urinalysis and Microscopic Stat Lab 08/11/25 17:06 Completed Medical Decision Narrative: patient is a 69-year-old female presenting to the emergency department for evaluation of pain with urination and likely prolapsed bladder. Patient is hemodynamically stable and nontoxic-appearing upon arrival, afebrile. Differential diagnosis includes prolapsed bladder, UTI, among others. Workup will be conducted with hematologic labs, specific imaging. Initial inventions include analgesics, antibiotics. Initial workup reviewed by me hematologic labs are remarkable for White count of 7.4, hemoglobin 10.7, crit 32.6, potassium 3.6, chloride 110, BUN and creatinine were 23 and 1.1 GFR was 49 calcium a little high at 10.3, AST ALT were normal urine was nonactionable today. Patient continues to take Pyridium for her pain. She did ask for a Toradol shot which I am happy to give. Patient has bladder test on the fifth. Patient is safe for discharge home with follow- up with her PCP I did write for Toradol outpatient, patient is no longer on ibuprofen or Eliquis. Critical Care Critical Care Time Critical Care Time: No
[2025-08-11 17:33] LABS: Microscopic, Urine URINE MICROSCOPIC (MICROSCOPIC)
[2025-08-11 17:34] LABS: Bilirubin,Urine Negative (Negative); Color,Urine YELLOW (Yellow); Glucose,Urine (UA) Negative (Negative); Ketones,Urine Negative (Negative); Leukocyte Esterase,Urine Negative (Negative); PH,Urine 6.0 (5.0-8.5); Protein,Urine Negative (Negative); Specific Gravity, Urine >= 1.030 (1.005-1.030); Urobilinogen,Urine 0.2 EU/dl (0.2)
[2025-08-11 17:53] LABS: Bacteria,Urine Trace /lpf
[2025-08-11 18:02] VITALS: BP 170/94; PULSE 58; O2SAT 95
[2025-08-11] MEDS: PHENAZOPYRIDINE 200MG TABLET 200 MG PO (18:07)
[2025-08-11 18:16] VITALS: BP 177/100; PULSE 59; O2SAT 93
[2025-08-11] MEDS: KETOROLAC 30MG/ML VIAL 30 MG IM (18:21)
[2025-08-11 18:24] VITALS: BP 167/127
[2025-08-11 18:30] VITALS: BP 165/85; PULSE 77; RESP 16; TEMP 36.9; O2SAT 99
== END 2025-08-11 18:37 | disposition home or self-care (01) ==
PROVIDERS: Emergency Provider Student in an Organized Health Care Education/Training Program; PCP Family Medicine
DX: R30.9 Painful micturition, unspecified (principal); R35.0 Frequency of micturition
CPT/HCPCS: 80053; 81001; 85025; 96372; 99283; 99284; J1885